=== PATIENT | male | born 1945 | race Caucasian/White ===

== ENCOUNTER 2020-10-09 18:41 | Inpatient (IN) | payer OTHER, SELFPAY ==
[2020-10-09 18:57] VITALS: TEMP 36.4; O2SAT 100; BMI 71.7
--- NOTE | 2020-10-09 19:23 | XR_ITS ---
EXAMINATION: XR CHEST CLINICAL INFORMATION: Mental status changes COMPARISON: Chest radiograph 08/12/[address] 08/13/2020 TECHNIQUE: Frontal view of the chest was obtained. FINDINGS: No significant abnormality is noted involving the heart, lungs, mediastinum, bony thorax or soft tissues. Again seen is left basilar atelectasis, unchanged when compared to the prior study. XR/XR chest 1V IMPRESSION: No acute intrathoracic disease.
--- NOTE | 2020-10-09 19:24 | ECG_ITS ---
Test Reason : AMS Blood Pressure : / mmHG Vent. Rate : 094 BPM Atrial Rate : 094 BPM P-R Int : 148 ms QRS Dur : 100 ms QT Int : 394 ms P-R-T Axes : 041 016 000 degrees QTc Int : 492 ms Normal sinus rhythm Minimal voltage criteria for LVH, may be normal variant T wave abnormality, consider inferior ischemia Abnormal ECG When compared with ECG of 18-AUG-2020 09:41, T wave inversion more evident in Inferior leads Referred By: Mark Finch Electronically Signed By:NIURKA CASTRO MD
--- NOTE | 2020-10-09 19:24 | CT_ITS ---
EXAMINATION: CT HEAD WITHOUT CONTRAST CLINICAL INFORMATION: Mental status change. COMPARISON: CT head 08/12/2020 TECHNIQUE: Contiguous axial imaging was performed from the skull base to vertex without intravenous administration of contrast. This CT examination was performed using dose optimization techniques as appropriate, variously including the following: *Automated exposure control *Adjustment of mA and/or kV according to patient size (this includes techniques or standardized protocols for targeted exams where dose is matched to indication/reason for exam; i.e. extremities or head) *Use of iterative reconstruction technique DLP: 805 mGy-cm FINDINGS: There is no evidence of acute intracranial hemorrhage or territorial infarction. No abnormal mass effect or midline shift is seen. [place] to white matter differentiation is well preserved. No extra-axial fluid collections are identified. There is atrophy with prominence of the ventricles and the sulci and hypodensity of the periventricular white matter due to chronic small vessel ischemic disease. The osseous structures and soft tissues are normal. There are multiple small lobular densities of mucosal disease or small retention cysts or polyps present at the inferior right and left maxillary sinus. CT/CT head/brain wo con IMPRESSION: No acute intracranial pathology.
[2020-10-09 19:43] LABS: Basophils Percent Auto 0.3 % (0-2); Eosinophils Absolute Auto 1.8 X10*3/uL (0.0-0.4); Eosinophils Percent Auto 15.9 % (0-4); Hematocrit 35.8 % (42-52); Hemoglobin 11.7 g/dl (14.0-18.0); Imm Gran Abs Auto 0.28 X10*3/uL (0.00-0.03); Imm Gran Pct Auto 2.4 % (0.0-0.4); Lymphocytes Absolute Auto 1.3 X10*3/uL (1.2-4.9); Lymphocytes Percent Auto 11.3 % (20-40); MANUAL DIFF FLAG NO; Mean Corpuscular HGB Conc 32.7 g/dl (31.0-36.0); Mean Corpuscular Hemoglobin 31.4 pg (27.0-33.0); Mean Platelet Volume 9.3 fL (9.4-12.4); Monocytes Absolute Auto 0.7 X10*3/uL (0.1-1.2); Monocytes Percent Auto 6.3 % (2-11); Neutrophils Absolute Auto 7.4 X10*3/uL (2.0-8.3); Neutrophils Percent Auto 63.8 % (45-73); Platelet Count 251 X10*3/uL (160-400); Red Blood Count 3.73 X10*6/uL (4.60-5.80); Red Cell Distribution Width 14.3 % (11.0-16.0); White Blood Count 11.6 X10*3/uL (4.8-10.8)
[2020-10-09 20:09] LABS: Lactic Acid 0.8 mmol/L (0.5-2.0)
[2020-10-09 20:14] VITALS: BP 114/55; PULSE 100; RESP 16; TEMP 36.6; O2SAT 98
[2020-10-09 20:20] LABS: Alanine Aminotransferase 28 U/L (0-40); Albumin Level 3.7 g/dL (3.5-5.0); Alkaline Phosphatase 63 U/L (39-117); Ammonia 31 umol/L (13-55); Anion Gap 17 (12-20); Aspartate Amino Transferase 39 U/L (5-37); Bilirubin Direct 0.2 mg/dL (0.0-0.5); Bilirubin Total 0.4 mg/dL (0.0-1.0); Blood Urea Nitrogen 25 mg/dL (9-16); Calcium 8.4 mg/dL (8.4-10.2); Carbon Dioxide 17 mmol/L (22-29); Chloride 107 mmol/L (96-108); Creatinine Clr Calc Pharmacy 57.1; Estimated Glomerular Filt Rate 28; Glucose Random 151 mg/dL (60-115); Lipase 37 U/L (8-78); Sodium 136 mmol/L (135-145); Total Protein 6.6 g/dL (6.5-8.0)
[2020-10-09 20:52] VITALS: BP 116/49; PULSE 95; RESP 18; TEMP 36.6
[2020-10-09 21:30] LABS: SARS COV2 PCR INHOUSE NEGATIVE (Negative)
[2020-10-09 21:31] LABS: Glucose Urine UA NEG (NEG); Leukocyte Esterase Urine TRACE (NEG); Nitrite Urine POS (NEG); Specific Gravity - Urine >= 1.030 (1.005-1.025); Urine Blood 3+ (NEG); Urine Ketones 5 MG/DL (NEG); Urine Protein 2+ MG/DL (NEG-TRACE)
[2020-10-09 21:34] LABS: Appearance Urine TURBID; Color Urine YELLOW
[2020-10-09 21:56] LABS: Bacteria Urine 2+ /LPF; RBC Urine 30-49 /HPF (0); Squamous Epithelial Cell Urine TRACE /LPF
--- NOTE | 2020-10-09 21:58 | ED.GENADULT ---
HPI - General Adult General Chief complaint: Altered Mental Status Time Seen by Provider: 10/09/20 19:23 Source: patient and family Mode of arrival: EMS Limitations: no limitations History of Present Illness HPI narrative: This is a 75-year-old male from home came in by ambulance for change of mental status today, patient was recently hospitalized for urosepsis at [facility] was just discharged yesterday on Bactrim (patient has a chronic indwelling Nunez catheter). Documented by EMS the patient had mental status change and lethargic, in the emergency department patient is awake, alert to place and person able to respond to examiner briskly. Patient initially was evaluated for possible SIRS/sepsis patient do not meet criteria. Related Data Allergies Allergy/AdvReac Type Severity Reaction Status Date / Time Benzodiazepines Allergy Unknown UNKNOWN Unverified 08/17/20 19:40 [BENZODIAZEPINES] dalfampridine [From AMPYRA] Allergy Unknown UNKNOWN Unverified 08/17/20 19:40 duloxetine [From CYMBALTA] Allergy Unknown UNKNOWN Unverified 08/17/20 19:40 ezetimibe [From ZETIA] Allergy Unknown UNKNOWN Unverified 08/17/20 19:40 niacin [NIACIN] Allergy Unknown UNKNOWN Unverified 08/17/20 19:40 oxycodone [OXYCODONE] Allergy Unknown UNKNOWN Unverified 08/17/20 19:40 pravastatin [PRAVASTATIN] Allergy Unknown UNKNOWN Unverified 08/17/20 19:40 Kecklbk-Mqh-Ptb Reductase Allergy Unknown UNKNOWN Unverified 08/17/20 19:40 Inhibitor [BQOBNER-QMP-LJL REDUCTASE INHIBITOR] lorazepam [From ATIVAN] AdvReac Severe EXCESSIVE Unverified 08/17/20 19:40 SEDATION doxycycline [DOXYCYCLINE] AdvReac Mild esophogeal Unverified 08/17/20 19:40 iritation methylprednisolone AdvReac Mild heartburn Unverified 08/17/20 19:40 [From SOLU-MEDROL] ertapenem [From INVANZ] AdvReac Unknown possible Unverified 08/17/20 19:40 cause of bullous pemphigoid Review of Systems Review of Systems: All other systems are reviewed and are negative Constitutional: Reports as per HPI and Reports no additional constitutional complaints Eyes: Reports as per HPI and Reports no additional eye complaints Reports system reviewed and no additional complaints, except as documented Cardiovascular: Reports as per HPI and Reports no additional cardiovascular complaints Respiratory: Reports as per HPI and Reports no additional respiratory complaints Gastrointestinal: Reports as per HPI and Reports no additional gastrointestinal complaints Genitourinary: Reports no additional female genitourinary complaints Musculoskeletal: Reports no additional musculoskeletal complaints Skin/Breast: Reports system reviewed and no additional complaints, except as docu Psychiatric: Reports no additional psychiatric complaints Endocrine: Reports no additional endocrine complaints Hematologic/Lymphatic: Reports no additional hematologic/lymphatic complaints Allergic/Immunologic: Reports no additional allergic/immunologic complaints Reports system reviewed and no additional complaints, except as documented and Reports Abnormal speech present [facility] Past Medical History Medical History Chronic renal failure Urinary tract infection Social History Social History Smoking Status: Unknown if ever smoked Use of substances other than those prescribed or required for medical reasons: Unable to respond Advance Directives: No Advance Directives Information Provided: Yes Physical Exam Vital Signs: Vital Signs: Last Vital Signs Temp 97.8 F 10/09/20 20:52 Pulse 95 10/09/20 20:52 Resp 18 10/09/20 20:52 BP 116/49 L 10/09/20 20:52 Pulse Ox 98 10/09/20 20:14 Body Mass Index 71.7 Vital signs have been reviewed as normal and appeared to be correct. Blood pressure normal. Heart rate normal. Respiration rate normal. Temperature normal. Oxygen saturation normal. Appearance: Alert. Oriented X2. No acute distress. Head: Normal external exam. Normocephalic. Atraumatic. No Calderón signs noted. No raccoon eyes noted Eyes: PERRLA. EOMI. Conjunctiva and sclera normal. Eyelids normal. ENT: EAC normal. TM's Normal. Pharynx normal. Uvula midline. Moist mucous membranes. No trismus noted. No drooling noted. No muffled voice noted. Neck: Normal inspection. Neck supple. FROM. No adenopathy. Thyroid Normal. No meningeal signs. No neck mass noted. CVS: Normal heart rate and rhythm. Heart sound normal. No murmurs noted. Pulses normal throughout. Respiratory: No respiratory distress. Painless inspiration. Breath sounds normal. No wheezes/rales/rhonchi noted. Chest nontender. No accessory muscle usage noted or decreased air movement noted. Abdomen: Soft and nontender. Bowel sounds normal in all 4 quadrants. No distention noted. No organomegaly noted. No visible injury noted. Back: No CVA tenderness. Full range of motion noted. Skin: Skin warm and dry. Normal skin color. Normal skin turgor. No rashes/lesions/lacerations noted. Extremities: No lower extremity edema. Extremities exhibit normal range of motion. Extremities nontender. Neuro: Oriented X 2. Course Course Course Narrative: This is a 75-year-old male with history of urosepsis was recently hospitalized at [facility], was discharged yesterday from [facility], patient returned because family reported that patient was lethargy and change mental status, patient is not showing severe mental status change or lethargic patient is responding to examiner briskly. Will consider changing Nunez catheter, check UA, check blood and urine culture, workup for change mental status including CT of the head. Medical Decision Making MDM Narrative Medical decision making narrative: 75 years old male with recent hospitalization for urosepsis, patient with chronic indwelling Nunez catheter. Here today for evaluation of mental status change. 1. Patient do not meet criteria for SIRS. (heart rate is above 90, leukocytosis less than 12,000) 2. Nunez catheter was changed new Nunez UA showed infection which will treat with ceftriaxone. 3. Mild dehydration will consider IV fluid hydration. 4. COVID testing. 5. Will admit for mental status re-evaluation/IV hydration/IV antibiotic. Lab Data Result diagrams: 10/09/20 19:35 10/09/20 19:35 Labs: Lab Results 10/09/20 10/09/20 10/09/20 Range/Units 19:35 19:35 19:35 WBC 11.6 H (4.8-10.8) X10*3/uL RBC 3.73 L (4.60-5.80) X10*6/uL Hgb 11.7 L (14.0-18.0) g/dl Hct 35.8 L (42-52) % MCV 96.0 (80-98) fL MCH 31.4 (27.0-33.0) pg MCHC 32.7 (31.0-36.0) g/dl RDW 14.3 (11.0-16.0) % Plt Count 251 (160-400) X10*3/uL MPV 9.3 L (9.4-12.4) fL Immature Gran % (Auto) 2.4 H (0.0-0.4) % Neut % (Auto) 63.8 (45-73) % Lymph % (Auto) 11.3 L (20-40) % [place] % (Auto) 6.3 (2-11) % Eos % (Auto) 15.9 H (0-4) % Baso % (Auto) 0.3 (0-2) % Lymph # (Auto) 1.3 (1.2-4.9) X10*3/uL [place] # (Auto) 0.7 (0.1-1.2) X10*3/uL Eos # (Auto) 1.8 H (0.0-0.4) X10*3/uL Baso # (Auto) 0.0 (0.0-0.2) X10*3/uL Abs Immat Gran (auto) 0.28 H (0.00-0.03) X10*3/uL Absolute Neuts (auto) 7.4 (2.0-8.3) X10*3/uL Absolute Nucleated RBC 0.000 (0.0-0.012) X10*3/uL Nucleated RBC % (auto) 0.0 (0.0-0.2) /100WBC Sodium 136 (135-145) mmol/L Potassium 5.0 (3.3-5.1) mmol/l Chloride 107 (96-108) mmol/L Carbon Dioxide 17 L (22-29) mmol/L Anion Gap 17 (12-20) BUN 25 H (9-16) mg/dL Creatinine 2.32 H (0.5-1.4) mg/dL Estim Creat Clear Calc 57.1 Estimated GFR 28 Random Glucose 151 H (60-115) mg/dL Lactic Acid (0.5-2.0) mmol/L Calcium 8.4 (8.4-10.2) mg/dL Total Bilirubin 0.4 (0.0-1.0) mg/dL Direct Bilirubin 0.2 (0.0-0.5) mg/dL AST 39 H (5-37) U/L ALT 28 (0-40) U/L Alkaline Phosphatase 63 (39-117) U/L Ammonia 31 (13-55) umol/L Total Protein 6.6 (6.5-8.0) g/dL Albumin 3.7 (3.5-5.0) g/dL Lipase 37 (8-78) U/L Urine Color Urine Appearance Urine pH (5.0-8.0) Ur Specific [place] (1.005-1.025) Urine Protein (NEG-TRACE) MG/DL Urine Glucose (UA) (NEG) MG/DL Urine Ketones (NEG) MG/DL Urine Blood (NEG) Urine Nitrite (NEG) Ur Leukocyte Esterase (NEG) Urine RBC (0) /HPF Urine WBC (0-4) /HPF Ur Squamous Epith Cells /LPF Urine Bacteria /LPF Coronavirus (PCR) (Negative) 10/09/20 10/09/20 10/09/20 Range/Units 19:35 20:29 21:18 WBC (4.8-10.8) X10*3/uL RBC (4.60-5.80) X10*6/uL Hgb (14.0-18.0) g/dl Hct (42-52) % MCV (80-98) fL MCH (27.0-33.0) pg MCHC (31.0-36.0) g/dl RDW (11.0-16.0) % Plt Count (160-400) X10*3/uL MPV (9.4-12.4) fL Immature Gran % (Auto) (0.0-0.4) % Neut % (Auto) (45-73) % Lymph % (Auto) (20-40) % [place] % (Auto) (2-11) % Eos % (Auto) (0-4) % Baso % (Auto) (0-2) % Lymph # (Auto) (1.2-4.9) X10*3/uL [place] # (Auto) (0.1-1.2) X10*3/uL Eos # (Auto) (0.0-0.4) X10*3/uL Baso # (Auto) (0.0-0.2) X10*3/uL Abs Immat Gran (auto) (0.00-0.03) X10*3/uL Absolute Neuts (auto) (2.0-8.3) X10*3/uL Absolute Nucleated RBC (0.0-0.012) X10*3/uL Nucleated RBC % (auto) (0.0-0.2) /100WBC Sodium (135-145) mmol/L Potassium (3.3-5.1) mmol/l Chloride (96-108) mmol/L Carbon Dioxide (22-29) mmol/L Anion Gap (12-20) BUN (9-16) mg/dL Creatinine (0.5-1.4) mg/dL Estim Creat Clear Calc Estimated GFR Random Glucose (60-115) mg/dL Lactic Acid 0.8 (0.5-2.0) mmol/L Calcium (8.4-10.2) mg/dL Total Bilirubin (0.0-1.0) mg/dL Direct Bilirubin (0.0-0.5) mg/dL AST (5-37) U/L ALT (0-40) U/L Alkaline Phosphatase (39-117) U/L Ammonia (13-55) umol/L Total Protein (6.5-8.0) g/dL Albumin (3.5-5.0) g/dL Lipase (8-78) U/L Urine Color YELLOW Urine Appearance TURBID Urine pH 5.0 (5.0-8.0) Ur Specific [place] >= 1.030 H (1.005-1.025) Urine Protein 2+ H (NEG-TRACE) MG/DL Urine Glucose (UA) NEG (NEG) MG/DL Urine Ketones 5 (NEG) MG/DL Urine Blood 3+ H (NEG) Urine Nitrite POS H (NEG) Ur Leukocyte Esterase TRACE H (NEG) Urine RBC 30-49 H (0) /HPF Urine WBC 5-9 H (0-4) /HPF Ur Squamous Epith Cells TRACE /LPF Urine Bacteria 2+ /LPF Coronavirus (PCR) NEGATIVE (Negative) Imaging Data Chest x-ray: Radiologist's impression: No acute intrathoracic pathology. CT scan - head: Radiologist's impression: No acute intracranial pathology. ECG Data Interpretation: Normal sinus rhythm at 94 beats per minutes, LVH, normal axis deviation, T-wave inversion in lead III and AVF. Discharge Plan Discharge Clinical Impression: Altered mental status, UTI (urinary tract infection) due to urinary indwelling Nunez catheter, Dehydration Patient Disposition: Admitted As Inpatient
[2020-10-09] MEDS: cefTRIAXone sodium 1 GM in 0.9 % Sodium Chloride 50 ML IV (22:05)
[2020-10-09] MEDS: 0.9 % Sodium Chloride 500 ML 1000 ML IV (22:09)
[2020-10-10] VITALS (8 sets, daily range): BP systolic 102–171; BP diastolic 48–78; PULSE 91–108; RESP 14–20; TEMP 36.3–36.9; O2SAT 97–100; BMI 26.6
--- NOTE | 2020-10-10 02:33 | P.HPHOSP_ITS ---
History of Present Illness Date of Service: 10/10/20 Chief Complaint: AMS this is a 75-year-old male with past medical history of MS (chronically bed- bound), BPH, depression, mood better, type 2 diabetes, chronic UTIs who [facility] with complaints of increased altered mentation. Patient was recently discharged from [facility] after presenting there was sepsis secondary to UTI. Patient was treated with IV antibiotics transition to Bactrim per sensitivity and sent home. His brought the patient back into the hospital stating that the patient has been more altered, has low appetite, oral intake. Patient is very confused at this time and unable to give me any history. I am unable to review his systems as patient is confused. arrival to the ED hemodynamically stable with stable vitals Labs are significant for WBC count of 11.6, BUN of 24, creatinine of 2.32 a baseline around 0.8, UA that is positive for leukocyte esterase, nitrates, WBC COVID-19 negative past medical history is obtained from chart Past medical history: BPH with chronic indwelling Nunez catheter, DM, MS, mood disorder, chronic pain syndrome, depression, recurrent UTI Past surgical history: None per record Family history: No significant family history Social history: Comes from [facility], currently not using any tobacco alcohol or illicit drugs Review of Systems Review of Systems: Yes all other systems are reviewed and are negative [facility] Medical History (Updated 10/10/20 @ 02:57 by Jeramy Song MD) BPH (benign prostatic hyperplasia) Chronic renal failure Urinary tract infection Social History Smoking Status: Unknown if ever smoked Use of substances other than those prescribed or required for medical reasons: Unable to respond Advance Directives: No Advance Directives Information Provided: Yes Meds Allergies Allergy/AdvReac Type Severity Reaction Status Date / Time Benzodiazepines Allergy Unknown UNKNOWN Verified 10/09/20 22:49 [BENZODIAZEPINES] dalfampridine [From AMPYRA] Allergy Unknown UNKNOWN Verified 10/09/20 22:49 duloxetine [From CYMBALTA] Allergy Unknown UNKNOWN Verified 10/09/20 22:49 ezetimibe [From ZETIA] Allergy Unknown UNKNOWN Verified 10/09/20 22:49 niacin [NIACIN] Allergy Unknown UNKNOWN Verified 10/09/20 22:49 oxycodone [OXYCODONE] Allergy Unknown UNKNOWN Verified 10/09/20 22:49 pravastatin [PRAVASTATIN] Allergy Unknown UNKNOWN Verified 10/09/20 22:49 Etfhhnm-Aua-Zdx Reductase Allergy Unknown UNKNOWN Verified 10/09/20 22:49 Inhibitor [UDHJKYE-MWA-HAW REDUCTASE INHIBITOR] lorazepam [From ATIVAN] AdvReac Severe EXCESSIVE Verified 10/09/20 22:49 SEDATION doxycycline [DOXYCYCLINE] AdvReac Mild esophogeal Verified 10/09/20 22:49 iritation methylprednisolone AdvReac Mild heartburn Verified 10/09/20 22:49 [From SOLU-MEDROL] ertapenem [From INVANZ] AdvReac Unknown possible Verified 10/09/20 22:49 cause of bullous pemphigoid Home Medications Medication Instructions Recorded Confirmed Type VQ-nhjlemejiwi-hfshou ox-zinc 500 - 750 tab PO DAILY 10/09/20 10/09/20 History [Nicotinamide] baclofen 20 mg PO QID 10/09/20 10/09/20 History bisacodyl 5 mg PO BEDTIME 10/09/20 10/09/20 History bisacodyl 10 mg [place] DAILY PRN 10/09/20 10/09/20 History citalopram 20 mg PO DAILY 10/09/20 10/09/20 History clobetasol 1 applic TOPICAL BID 10/09/20 10/09/20 History gabapentin 300 mg PO DAILY 10/09/20 10/09/20 History gabapentin 300 mg PO TID 10/09/20 10/09/20 History insulin detemir U-100 [Levemir 20 unit SUBCUT BEDTIME 10/09/20 10/09/20 History U-100 Insulin] lactulose 15 ml PO BEDTIME 10/09/20 10/09/20 History melatonin 5 mg PO BEDTIME PRN 10/09/20 10/09/20 History metformin 500 mg PO BID 10/09/20 10/09/20 History polyethylene glycol 3350 17 g PO DAILY 10/09/20 10/09/20 History sulfamethoxazole-trimethoprim 1 tab PO BID 10/09/20 10/09/20 History tamsulosin 0.4 mg PO DAILY 10/09/20 10/09/20 History tramadol 50 mg PO BID PRN 10/09/20 10/09/20 History trazodone 25 mg PO BEDTIME PRN 10/09/20 10/09/20 History Physical Exam Vital Signs and Narrative: Vital Signs: Last Vital Signs Temp 97.8 F 10/09/20 20:52 Pulse 91 10/10/20 01:46 Resp 14 10/10/20 01:46 BP 126/57 L 10/10/20 01:46 Pulse Ox 100 10/10/20 01:46 Body Mass Index 26.6 Const: General: cooperative and no acute distress Orientation/consc iousness: patient oriented x3 Eyes: General: appearance normal, both eyes and all related structures Pupils: Equal, round and reactive pupils present Resp: Effort & Inspection: normal respiratory effort and able to speak in complete sentences Auscultation: clear to auscultation bilaterally Cardio: Rate: regular rate Rhythm: regular rhythm GI: Palpation (GI): Soft to palpation Auscultation: normal bowel sounds Skin: General skin exam: no rashes or lesions noted Neuro: General: patient oriented x3 Cranial nerves: Yes Equal, round and reactive pupils present Cognition (Neuro): normal cognition Extrem: General: Yes normal to inspection and Yes no pedal edema Results Labs CBC and Chem 7: 10/09/20 19:35 10/09/20 19:35 Labs: Laboratory Results - last 24 hr 10/09/20 10/09/20 10/09/20 19:35 19:35 19:35 MCV 96.0 MCH 31.4 MCHC 32.7 RDW 14.3 Plt Count 251 MPV 9.3 L Immature Gran % (Auto) 2.4 H Neut % (Auto) 63.8 Lymph % (Auto) 11.3 L [place] % (Auto) 6.3 Eos % (Auto) 15.9 H Baso % (Auto) 0.3 Lymph # (Auto) 1.3 [place] # (Auto) 0.7 Eos # (Auto) 1.8 H Baso # (Auto) 0.0 Abs Immat Gran (auto) 0.28 H Absolute Neuts (auto) 7.4 Absolute Nucleated RBC 0.000 Nucleated RBC % (auto) 0.0 Anion Gap 17 Estim Creat Clear Calc 57.1 Estimated GFR 28 Random Glucose 151 H Lactic Acid Calcium 8.4 Total Bilirubin 0.4 Direct Bilirubin 0.2 AST 39 H ALT 28 Alkaline Phosphatase 63 Ammonia 31 Total Protein 6.6 Albumin 3.7 Lipase 37 Urine Color Urine Appearance Urine pH Ur Specific [place] Urine Protein Urine Glucose (UA) Urine Ketones Urine Blood Urine Nitrite Ur Leukocyte Esterase Urine RBC Urine WBC Ur Squamous Epith Cells Urine Bacteria Coronavirus (PCR) 10/09/20 10/09/20 10/09/20 19:35 20:29 21:18 MCV MCH MCHC RDW Plt Count MPV Immature Gran % (Auto) Neut % (Auto) Lymph % (Auto) [place] % (Auto) Eos % (Auto) Baso % (Auto) Lymph # (Auto) [place] # (Auto) Eos # (Auto) Baso # (Auto) Abs Immat Gran (auto) Absolute Neuts (auto) Absolute Nucleated RBC Nucleated RBC % (auto) Anion Gap Estim Creat Clear Calc Estimated GFR Random Glucose Lactic Acid 0.8 Calcium Total Bilirubin Direct Bilirubin AST ALT Alkaline Phosphatase Ammonia Total Protein Albumin Lipase Urine Color YELLOW Urine Appearance TURBID Urine pH 5.0 Ur Specific [place] >= 1.030 H Urine Protein 2+ H Urine Glucose (UA) NEG Urine Ketones 5 Urine Blood 3+ H Urine Nitrite POS H Ur Leukocyte Esterase TRACE H Urine RBC 30-49 H Urine WBC 5-9 H Ur Squamous Epith Cells TRACE Urine Bacteria 2+ Coronavirus (PCR) NEGATIVE Imaging Radiologist's Impressions: Impressions Chest X-Ray 10/09/20 19:23 IMPRESSION: No acute intrathoracic disease. Head CT 10/09/20 19:24 IMPRESSION: No acute intracranial pathology. Assessment and Plan (1) BPH (benign prostatic hyperplasia): Status: Acute (2) Altered mental status: Qualifiers: Coma depth: [place] coma 13-15 Status: Acute (3) UTI (urinary tract infection) due to urinary indwelling Nunez catheter: Qualifiers: Indwelling urinary catheter type: indwelling urethral catheter Status: Acute (4) Dehydration: Status: Acute (5) EDWARD (acute kidney injury): Status: Acute (6) Chronic pain syndrome: Status: Acute (7) Diabetes mellitus type 2 in obese: Status: Acute (8) Depression: Status: Acute
[2020-10-10 06:33] LABS: Glucose, Whole Blood 155 mg/dL (60-115)
[2020-10-10 08:30] LABS: Glucose, Whole Blood 153 mg/dL (60-115)
[2020-10-10] MEDS: Insulin Lispro 100 UNIT/ML 3 ML VIAL SUBCUT ×2 (08:30→23:04)
--- NOTE | 2020-10-10 11:44 | P.PNIM_ITS ---
Subjective Subjective Date of Service: 10/10/20 Interval History: Seen in f/u for EDWARD, UTI with encephalopathy Physical Exam Vital Signs: Vital Signs: Last Vital Signs Temp 98.4 F 10/10/20 06:17 Pulse 108 H 10/10/20 06:17 Resp 18 10/10/20 08:00 BP 163/70 H 10/10/20 06:17 Pulse Ox 98 10/10/20 06:17 Body Mass Index 26.6 General: AO X 3, no acute distress Resp: CTA bilateral CVS: S1,S2,RRR GI: +BS, NT, no distention Skin: No rash Neuro: motor grossly intact Psych: appropriate affect Objective Data Current Medications Generic Name Dose Route Start Last Admin Trade Name Freq PRN Reason Stop Dose Admin Insulin Human Lispro 0 unit 10/10/20 07:30 10/10/20 08:30 Insulin Lispro 100 Unit/Ml 3 Ml Vial SUBCUT 2 unit QIDACHS WICHO Administration Protocol Labs CBC & Chem 7: 10/09/20 19:35 10/09/20 19:35 Microbiology Microbiology Results: Microbiology 10/09/20 21:30 Urine clean catch - Clean Catch Midstream Urine Culture - Preliminary No growth to date. Assessment and Plan (1) BPH (benign prostatic hyperplasia): Status: Acute (2) Altered mental status: Status: Acute (3) UTI (urinary tract infection) due to urinary indwelling Nunez catheter: Status: Acute (4) Dehydration: Status: Acute (5) EDWARD (acute kidney injury): Status: Acute (6) Chronic pain syndrome: Status: Acute (7) Diabetes mellitus type 2 in obese: Status: Acute (8) Depression: Status: Acute Assessment and Plan: 75/ M here with Encephalopathy--improved - most likely secondary to acute UTI and infection - no electrolyte abnormality, also has EDWARD and apparent dehydration - UA positive for nitrites, leukocyte Estrace and WBC Plan: - Continue Ceftriaxone - urine and blood cultures drawn- will follow - IV fluids # UTI - positive UA, has a chronic indwelling catheter - Was recently discharged from [facility] after being treated for Klebsiella UTI sensitive to Macrobid. It appears the patient was discharged on Macrobid for his family and the discharge summary plan: - continue ceftriaxone - follow urine and blood cultures # EDWARD--hydrated overnight, - most likely secondary to dehydration - baseline creatinine around 0.8, presents with a creatinine of 2.32 -repeat labs and if not resolve, additional iv fluid and renal consuly # DM - hold glipizide - low-dose sliding scale insulin - diabetic diet # chronic pain - continue gabapentin, hold baclofen due to renal failure, tramadol DVT prophylaxis: heparin subcu 12. Full code.
[2020-10-10 12:21] LABS: Glucose, Whole Blood 134 mg/dL (60-115)
[2020-10-10] MEDS: 0.9 % Sodium Chloride 1,000 ML 100 ML IVCONT ×2 (13:15→23:03)
[2020-10-10] MEDS: Heparin Sodium,Porcine 5,000 UNIT/ML VIAL 5000 UNIT SUBCUT (13:15)
[2020-10-10] MEDS: polyethylene glycoL 3350 17 GM POWD.PACK PO (13:16)
[2020-10-10] MEDS: Tamsulosin HCL 0.4 MG CAPSULE PO (13:17)
[2020-10-10] MEDS: Baclofen 20 MG TABLET PO ×3 (13:17→23:04)
[2020-10-10] MEDS: Gabapentin 300 MG CAPSULE PO (13:17)
[2020-10-10] MEDS: 0.9 % Sodium Chloride Flush 3 ML SYRINGE IVFLUSH (13:17)
[2020-10-10 15:18] LABS: Anion Gap 14 (12-20); Blood Urea Nitrogen 25 mg/dL (9-16); Calcium 8.6 mg/dL (8.4-10.2); Carbon Dioxide 23 mmol/L (22-29); Chloride 107 mmol/L (96-108); Creatinine Clr Calc Pharmacy 50.1; Estimated Glomerular Filt Rate 48; Glucose Random 145 mg/dL (60-115); Potassium 4.7 mmol/l (3.3-5.1); Sodium 139 mmol/L (135-145)
--- NOTE | 2020-10-10 16:33 | P.CONIM_ITS ---
History of Present Illness Data of Consult Service Date: 10/10/20 Requesting physician: Juan Sykes Primary Care Provider: Unknown Physician HPI Reason for consult: sacral wound 75 year old male with recurrent uti having hospitalizations at [facility] [place] and now at [place] and at long-term in between. lots of time in bed as he says he cant walk or stand well. now with noted wound on sacrum [facility] Medical History (Updated 10/10/20 @ 02:57 by Jeramy Song MD) BPH (benign prostatic hyperplasia) Chronic renal failure Urinary tract infection Social History Household Members: Other Household Members Other:: lives in a long-term Housing: [facility] Smoking Status: Unknown if ever smoked Use of substances other than those prescribed or required for medical reasons: No Currently Displaying Signs/Symptoms of Drug Intoxication Withdrawal: No Have you been hit, kicked, punched, or otherwise hurt by someone within the past year? If so, by whom?: No Do you feel safe in your current relationship?: Yes Are you made to feel afraid or neglected: No Advance Directives: No Advance Directives Information Provided: Yes Do you have thoughts of harming others: None Do you have a plan to hurt others: No Plan Recently lost weight without trying: No Meds Allergies Allergy/AdvReac Type Severity Reaction Status Date / Time Benzodiazepines Allergy Unknown UNKNOWN Verified 10/09/20 22:49 [BENZODIAZEPINES] dalfampridine [From AMPYRA] Allergy Unknown UNKNOWN Verified 10/09/20 22:49 duloxetine [From CYMBALTA] Allergy Unknown UNKNOWN Verified 10/09/20 22:49 ezetimibe [From ZETIA] Allergy Unknown UNKNOWN Verified 10/09/20 22:49 niacin [NIACIN] Allergy Unknown UNKNOWN Verified 10/09/20 22:49 oxycodone [OXYCODONE] Allergy Unknown UNKNOWN Verified 10/09/20 22:49 pravastatin [PRAVASTATIN] Allergy Unknown UNKNOWN Verified 10/09/20 22:49 Pexfdxh-Okp-Pmq Reductase Allergy Unknown UNKNOWN Verified 10/09/20 22:49 Inhibitor [[id number] REDUCTASE INHIBITOR] lorazepam [From ATIVAN] AdvReac Severe EXCESSIVE Verified 10/09/20 22:49 SEDATION doxycycline [DOXYCYCLINE] AdvReac Mild esophogeal Verified 10/09/20 22:49 iritation methylprednisolone AdvReac Mild heartburn Verified 10/09/20 22:49 [From SOLU-MEDROL] ertapenem [From INVANZ] AdvReac Unknown possible Verified 10/09/20 22:49 cause of bullous pemphigoid Home Medications Medication Instructions Recorded Confirmed Type PN-smtdrmansfm-krgxay ox-zinc 500 - 750 tab PO DAILY 10/09/20 10/09/20 History [Nicotinamide] baclofen 20 mg PO QID 10/09/20 10/09/20 History bisacodyl 5 mg PO BEDTIME 10/09/20 10/09/20 History bisacodyl 10 mg SD DAILY PRN 10/09/20 10/09/20 History citalopram 20 mg PO DAILY 10/09/20 10/09/20 History clobetasol 1 applic TOPICAL BID 10/09/20 10/09/20 History gabapentin 300 mg PO DAILY 10/09/20 10/09/20 History gabapentin 600 mg PO BEDTIME 10/09/20 10/10/20 History insulin detemir U-100 [Levemir 20 unit SUBCUT BEDTIME 10/09/20 10/09/20 History U-100 Insulin] lactulose 15 ml PO BEDTIME 10/09/20 10/09/20 History melatonin 5 mg PO BEDTIME PRN 10/09/20 10/09/20 History metformin 500 mg PO BID 10/09/20 10/09/20 History polyethylene glycol 3350 17 g PO DAILY 10/09/20 10/09/20 History sulfamethoxazole-trimethoprim 1 tab PO BID 10/09/20 10/09/20 History tamsulosin 0.4 mg PO DAILY 10/09/20 10/09/20 History tramadol 50 mg PO BID PRN 10/09/20 10/09/20 History trazodone 25 mg PO BEDTIME PRN 10/09/20 10/09/20 History Physical Exam Vital Signs and Narrative: Vital Signs: Last Vital Signs Temp 97.7 F 10/10/20 15:47 Pulse 98 10/10/20 15:47 Resp 18 10/10/20 15:47 BP 156/78 H 10/10/20 15:47 Pulse Ox 99 10/10/20 15:47 Body Mass Index 26.6 pt has small stage 1 skin breakdown from pressure less than 1cm but it is tender. back skin looks good though and perirectal tissue also Results Labs CBC and Chem 7: 10/09/20 19:35 10/10/20 14:29 Labs: Laboratory Results - last 24 hr 10/09/20 10/09/20 10/09/20 19:35 19:35 19:35 MCV 96.0 MCH 31.4 MCHC 32.7 RDW 14.3 Plt Count 251 MPV 9.3 L Immature Gran % (Auto) 2.4 H Neut % (Auto) 63.8 Lymph % (Auto) 11.3 L [place] % (Auto) 6.3 Eos % (Auto) 15.9 H Baso % (Auto) 0.3 Lymph # (Auto) 1.3 [place] # (Auto) 0.7 Eos # (Auto) 1.8 H Baso # (Auto) 0.0 Abs Immat Gran (auto) 0.28 H Absolute Neuts (auto) 7.4 Absolute Nucleated RBC 0.000 Nucleated RBC % (auto) 0.0 Anion Gap 17 Estim Creat Clear Calc 57.1 Estimated GFR 28 POC Glucose Random Glucose 151 H Lactic Acid Calcium 8.4 Total Bilirubin 0.4 Direct Bilirubin 0.2 AST 39 H ALT 28 Alkaline Phosphatase 63 Ammonia 31 Total Protein 6.6 Albumin 3.7 Lipase 37 Urine Color Urine Appearance Urine pH Ur Specific [place] Urine Protein Urine Glucose (UA) Urine Ketones Urine Blood Urine Nitrite Ur Leukocyte Esterase Urine RBC Urine WBC Ur Squamous Epith Cells Urine Bacteria Coronavirus (PCR) 10/09/20 10/09/20 10/09/20 19:35 20:29 21:18 MCV MCH MCHC RDW Plt Count MPV Immature Gran % (Auto) Neut % (Auto) Lymph % (Auto) [place] % (Auto) Eos % (Auto) Baso % (Auto) Lymph # (Auto) [place] # (Auto) Eos # (Auto) Baso # (Auto) Abs Immat Gran (auto) Absolute Neuts (auto) Absolute Nucleated RBC Nucleated RBC % (auto) Anion Gap Estim Creat Clear Calc Estimated GFR POC Glucose Random Glucose Lactic Acid 0.8 Calcium Total Bilirubin Direct Bilirubin AST ALT Alkaline Phosphatase Ammonia Total Protein Albumin Lipase Urine Color YELLOW Urine Appearance TURBID Urine pH 5.0 Ur Specific [place] >= 1.030 H Urine Protein 2+ H Urine Glucose (UA) NEG Urine Ketones 5 Urine Blood 3+ H Urine Nitrite POS H Ur Leukocyte Esterase TRACE H Urine RBC 30-49 H Urine WBC 5-9 H Ur Squamous Epith Cells TRACE Urine Bacteria 2+ Coronavirus (PCR) NEGATIVE 10/10/20 10/10/20 10/10/20 06:28 08:26 11:41 MCV MCH MCHC RDW Plt Count MPV Immature Gran % (Auto) Neut % (Auto) Lymph % (Auto) [place] % (Auto) Eos % (Auto) Baso % (Auto) Lymph # (Auto) [place] # (Auto) Eos # (Auto) Baso # (Auto) Abs Immat Gran (auto) Absolute Neuts (auto) Absolute Nucleated RBC Nucleated RBC % (auto) Anion Gap Estim Creat Clear Calc Estimated GFR POC Glucose 155 H 153 H 134 H Random Glucose Lactic Acid Calcium Total Bilirubin Direct Bilirubin AST ALT Alkaline Phosphatase Ammonia Total Protein Albumin Lipase Urine Color Urine Appearance Urine pH Ur Specific [place] Urine Protein Urine Glucose (UA) Urine Ketones Urine Blood Urine Nitrite Ur Leukocyte Esterase Urine RBC Urine WBC Ur Squamous Epith Cells Urine Bacteria Coronavirus (PCR) 10/10/20 14:29 MCV MCH MCHC RDW Plt Count MPV Immature Gran % (Auto) Neut % (Auto) Lymph % (Auto) [place] % (Auto) Eos % (Auto) Baso % (Auto) Lymph # (Auto) [place] # (Auto) Eos # (Auto) Baso # (Auto) Abs Immat Gran (auto) Absolute Neuts (auto) Absolute Nucleated RBC Nucleated RBC % (auto) Anion Gap 14 Estim Creat Clear Calc 50.1 Estimated GFR 48 POC Glucose Random Glucose 145 H Lactic Acid Calcium 8.6 Total Bilirubin Direct Bilirubin AST ALT Alkaline Phosphatase Ammonia Total Protein Albumin Lipase Urine Color Urine Appearance Urine pH Ur Specific [place] Urine Protein Urine Glucose (UA) Urine Ketones Urine Blood Urine Nitrite Ur Leukocyte Esterase Urine RBC Urine WBC Ur Squamous Epith Cells Urine Bacteria Coronavirus (PCR) Imaging Radiologist's Impressions: Impressions Chest X-Ray 10/09/20 19:23 IMPRESSION: No acute intrathoracic disease. Head CT 10/09/20 19:24 IMPRESSION: No acute intracranial pathology. Assessment and Plan (1) BPH (benign prostatic hyperplasia): Status: Acute (2) Altered mental status: Qualifiers: Coma depth: [place] coma 13-15 Status: Acute (3) UTI (urinary tract infection) due to urinary indwelling Nunez catheter: Qualifiers: Indwelling urinary catheter type: indwelling urethral catheter Status: Acute (4) Dehydration: Status: Acute (5) EDWARD (acute kidney injury): Status: Acute (6) Chronic pain syndrome: Status: Acute (7) Diabetes mellitus type 2 in obese: Status: Acute (8) Depression: Status: Acute 75/ M here with Encephalopathy--improved - UTI - EDWARD-- # DM chronic pain DVT prophylaxis: He has a pressure stage 1 sacral wound - offload, rotate side to side, barrier cream as needed and protective allevyn dressing.
[2020-10-10 17:22] LABS: Glucose, Whole Blood 124 mg/dL (60-115)
[2020-10-10 21:19] LABS: Glucose, Whole Blood 192 mg/dL (60-115)
[2020-10-10] MEDS: Gabapentin 300 MG CAPSULE 600 MG PO (23:03)
[2020-10-10] MEDS: Lactulose 20 GM/30 ML SOLUTION 10 GM PO (23:04)
[2020-10-10] MEDS: Betamethasone Dip Aug 0.05% Cr 15 GM TUBE 1 APPL TOPICAL (23:05)
[2020-10-10] MEDS: Insulin Glargine,Hum.rec.anlog 100 UNIT/ML 10 ML VIAL 10 UNIT SUBCUT (23:05)
[2020-10-10] MEDS: cefTRIAXone sodium 1 GM in 0.9 % Sodium Chloride 50 ML IV (23:06)
[2020-10-11] VITALS (7 sets, daily range): BP systolic 135–173; BP diastolic 63–76; PULSE 82–98; RESP 16–19; TEMP 36–36.4; O2SAT 97–100
[2020-10-11] MEDS: ondansetron HCL 4 MG/2 ML VIAL IVPUSH ×3 (00:35→16:34)
[2020-10-11] MEDS: Heparin Sodium,Porcine 5,000 UNIT/ML VIAL 5000 UNIT SUBCUT ×2 (01:11→13:01)
[2020-10-11 04:58] LABS: MANUAL DIFF FLAG NO
[2020-10-11 05:07] LABS: Basophils Percent Auto 0.5 % (0-2); Eosinophils Absolute Auto 1.3 X10*3/uL (0.0-0.4); Hematocrit 31.8 % (42-52); Hemoglobin 10.3 g/dl (14.0-18.0); Imm Gran Pct Auto 1.5 % (0.0-0.4); Lymphocytes Absolute Auto 1.1 X10*3/uL (1.2-4.9); Mean Corpuscular HGB Conc 32.4 g/dl (31.0-36.0); Mean Corpuscular Hemoglobin 31.2 pg (27.0-33.0); Mean Corpuscular Volume 96.4 fL (80-98); Mean Platelet Volume 9.2 fL (9.4-12.4); Monocytes Absolute Auto 0.6 X10*3/uL (0.1-1.2); Monocytes Percent Auto 9.3 % (2-11); Neutrophils Absolute Auto 3.5 X10*3/uL (2.0-8.3); Neutrophils Percent Auto 52.7 % (45-73); Platelet Count 251 X10*3/uL (160-400); Red Cell Distribution Width 14.6 % (11.0-16.0); White Blood Count 6.6 X10*3/uL (4.8-10.8)
[2020-10-11 05:43] LABS: Anion Gap 10 (12-20); Blood Urea Nitrogen 17 mg/dL (9-16); Calcium 7.9 mg/dL (8.4-10.2); Carbon Dioxide 22 mmol/L (22-29); Chloride 108 mmol/L (96-108); Creatinine Clr Calc Pharmacy 71.4; Estimated Glomerular Filt Rate > 60; Glucose Random 84 mg/dL (60-115); Potassium 4.2 mmol/l (3.3-5.1); Sodium 136 mmol/L (135-145)
[2020-10-11 07:54] LABS: Glucose, Whole Blood 84 mg/dL (60-115)
[2020-10-11] MEDS: 0.9 % Sodium Chloride 1,000 ML 100 ML IVCONT (09:08)
[2020-10-11] MEDS: polyethylene glycoL 3350 17 GM POWD.PACK PO (09:19)
[2020-10-11] MEDS: Baclofen 20 MG TABLET PO ×4 (09:20→22:51)
[2020-10-11] MEDS: Tamsulosin HCL 0.4 MG CAPSULE PO (09:20)
[2020-10-11] MEDS: Gabapentin 300 MG CAPSULE PO (09:20)
[2020-10-11] MEDS: Escitalopram Oxalate 10 MG TABLET PO (09:20)
[2020-10-11] MEDS: Betamethasone Dip Aug 0.05% Cr 15 GM TUBE 1 APPL TOPICAL ×2 (10:12→22:53)
--- NOTE | 2020-10-11 11:13 | MHC.CM.PN ---
PATIENT IS IN FROM [facility] [address]. PLAN IS FOR HIS RETURN. PER PHYSICIAN ROUNDS, PATIENT MAY BE READY TODAY. THIS CLINICAL MOLECULAR GENETICIST CONTACTED HELP DESK, THERE ARE ISSUES WITH TRYING TO ACCESS PATIENT DEMOGRAPHIC AND CONTACT INFO.
[2020-10-11 11:40] LABS: Glucose, Whole Blood 112 mg/dL (60-115)
--- NOTE | 2020-10-11 12:22 | PM.DS ---
DS: Providers Provider Date of admission: 10/10/20 00:20 Primary care physician: Unknown Physician Consults: 10/10/20 14:46 Consult to Wound Care Provider Routine Consulting Provider: Priyanka Solis Reason for consultation: stage II on buttocks Has provider been notified: Yes DS: Diagnosis Discharge Diagnosis (1) BPH (benign prostatic hyperplasia): Status: Acute (2) Altered mental status: Status: Acute (3) UTI (urinary tract infection) due to urinary indwelling Nunez catheter: Status: Acute (4) Dehydration: Status: Acute (5) EDWARD (acute kidney injury): Status: Acute (6) Chronic pain syndrome: Status: Acute (7) Diabetes mellitus type 2 in obese: Status: Acute (8) Depression: Status: Acute DS: Medications Discharge Medications Home Medications: Home Medications Medication Instructions Recorded Confirmed UN-dulkkwafsba-hcvmeh ox-zinc 500 - 750 tab PO DAILY 10/09/20 10/09/20 [Nicotinamide] baclofen 20 mg PO QID 10/09/20 10/09/20 bisacodyl 5 mg PO BEDTIME 10/09/20 10/09/20 bisacodyl 10 mg CA DAILY PRN 10/09/20 10/09/20 citalopram 20 mg PO DAILY 10/09/20 10/09/20 clobetasol 1 applic TOPICAL BID 10/09/20 10/09/20 gabapentin 300 mg PO DAILY 10/09/20 10/09/20 gabapentin 600 mg PO BEDTIME 10/09/20 10/10/20 insulin detemir U-100 [Levemir 20 unit SUBCUT BEDTIME 10/09/20 10/09/20 U-100 Insulin] lactulose 15 ml PO BEDTIME 10/09/20 10/09/20 melatonin 5 mg PO BEDTIME PRN 10/09/20 10/09/20 metformin 500 mg PO BID 10/09/20 10/09/20 polyethylene glycol 3350 17 g PO DAILY 10/09/20 10/09/20 sulfamethoxazole-trimethoprim 1 tab PO BID 10/09/20 10/09/20 tamsulosin 0.4 mg PO DAILY 10/09/20 10/09/20 tramadol 50 mg PO BID PRN 10/09/20 10/09/20 trazodone 25 mg PO BEDTIME PRN 10/09/20 10/09/20 DS: Summary Hospital Course Hospital Course: history of presenting illness 75-year-old male with past medical history of MS (chronically bed-bound), BPH, depression, mood better, type 2 diabetes, chronic UTIs who presents to the hospital [facility] [place] [facility] with complaints of increased altered mentation. Patient was recently discharged from [facility] after presenting there was sepsis secondary to UTI. Patient was treated with IV antibiotics transition to Bactrim per sensitivity and sent home. His brought the patient back into the hospital stating that the patient has been more altered, has low appetite, oral intake. Patient is very confused at this time and unable to give me any history. review of systems not obtained as patient is confused. arrival to the ED hemodynamically stable with stable vitals Labs are significant for WBC count of 11.6, BUN of 24, creatinine of 2.32 a baseline around 0.8, UA that is positive for leukocyte esterase, nitrates, WBC COVID-19 negative past medical history is obtained from chart Past medical history: BPH with chronic indwelling Nunez catheter, DM, MS, mood disorder, chronic pain syndrome, depression, recurrent UTI Past surgical history: None per record hospital course acute Encephalopathy-- resolved was likely secondary to acute kidney injury most likely related to recent use of Bactrim, and dehydration, repeat urine culture and blood culture showed no organism. # UTI - Patient recently treated at [facility] for acute retract infection has finish course of antibiotic repeat urine culture and blood cultures are negative no further antibiotics are required # EDWARD- resolved with IV hydration was likely related to use of Bactrim # DM - resume home medication dose of Levemir insulin reduced to 10 units since blood sugars are stable continue diabetic diet # chronic pain - continue gabapentin, baclofen and tramadol # chronic nausea patient complaining of daily nausea likely related to polypharmacy as per patient he has no depressive symptoms therefore dose of citalopram reduced to 10 mg, recommend to review other medications and discontinue medications, patient does not need including Ultram to minimize side effects # dyshidrotic eczema continue using steroid cream twice daily and use moisturizer in between, avoid using excessive handwashing. # Stage I sacral wound recommend to change position frequently was barrier cream as needed and use protective dressing Time Spent with Patient Time attestation: Total time spent providing and/or coordinating discharge services: Physical Exam Vital Signs: Vital Signs: Last Vital Signs Temp 96.9 F 10/11/20 11:39 Pulse 82 10/11/20 11:39 Resp 17 10/11/20 11:39 BP 137/66 10/11/20 11:39 Pulse Ox 98 10/11/20 11:39 Body Mass Index 26.6 General patient resting comfortably in no acute distress. Neck is supple no JVD. CVS regular rate rhythm, Respiratory lungs clear to auscultation, no respiratory distress, no wheeze, no rhonchi. Gastrointestinal abdomen soft, nontender, bowel sounds audible Extremities no clubbing cyanosis or edema. Skin vesicular rash both hands, stage I sacral wound. Nunez catheter with clear urine DS: Data Data Completed and Pending Labs on day of discharge: 10/09/20 19:23 XR chest 1V Stat 10/09/20 19:24 ECG 12 lead EKG Stat EKG Documentation DIRECTED CT head/brain wo con Stat 10/09/20 19:35 Ammonia Stat Basic Metabolic Panel Stat Complete Blood Count Auto Diff Stat Lactic Acid Stat Lipase Stat Liver Panel Stat 10/09/20 20:29 SARS COV2 PCR INHOUSE Stat 10/09/20 21:30 Urine Culture Routine 10/09/20 21:51 cefTRIAXone sodium [Rocephin] 1 gm 0.9 % Sodium Chloride [Ns] 50 ml IV ONCE 10/09/20 21:59 cefTRIAXone sodium [Rocephin] 1 gm .ROUTE .STK-MED ONE 10/09/20 22:00 0.9 % Sodium Chloride [Ns] 500 ml IV 1,000 mls/hr 10/10/20 00:07 Transfer Order Routine 10/10/20 06:28 Glucose, Whole Blood Routine 10/10/20 08:26 Glucose, Whole Blood Routine 10/10/20 11:41 Glucose, Whole Blood Routine 10/10/20 12:32 0.9 % Sodium Chloride [Ns] 1,000 ml IVCONT 100 mls/hr 10/10/20 14:29 Basic Metabolic Panel Routine 10/10/20 16:42 Zinc Oxide 20% Ointment 1 appl TOPICAL ONCE ONE 10/10/20 17:14 Glucose, Whole Blood Routine 10/10/20 20:53 Glucose, Whole Blood Routine 10/10/20 22:21 cefTRIAXone sodium [Rocephin] 1 gm .ROUTE .STK-MED ONE 10/11/20 04:34 Basic Metabolic Panel DAILY@0600 Complete Blood Count Auto Diff Routine 10/11/20 07:49 Glucose, Whole Blood Routine 10/11/20 11:36 Glucose, Whole Blood Routine Laboratory Last Values WBC 6.6 X10*3/uL (4.8-10.8) 10/11/20 04:34 RBC 3.30 X10*6/uL (4.60-5.80) L 10/11/20 04:34 Hgb 10.3 g/dl (14.0-18.0) L 10/11/20 04:34 Hct 31.8 % (42-52) L 10/11/20 04:34 MCV 96.4 fL (80-98) 10/11/20 04:34 MCH 31.2 pg (27.0-33.0) 10/11/20 04:34 MCHC 32.4 g/dl (31.0-36.0) 10/11/20 04:34 RDW 14.6 % (11.0-16.0) 10/11/20 04:34 Plt Count 251 X10*3/uL (160-400) 10/11/20 04:34 MPV 9.2 fL (9.4-12.4) L 10/11/20 04:34 Immature Gran % (Auto) 1.5 % (0.0-0.4) H 10/11/20 04:34 Neut % (Auto) 52.7 % (45-73) 10/11/20 04:34 Lymph % (Auto) 17.0 % (20-40) L 10/11/20 04:34 [place] % (Auto) 9.3 % (2-11) 10/11/20 04:34 Eos % (Auto) 19.0 % (0-4) H 10/11/20 04:34 Baso % (Auto) 0.5 % (0-2) 10/11/20 04:34 Lymph # (Auto) 1.1 X10*3/uL (1.2-4.9) L 10/11/20 04:34 [place] # (Auto) 0.6 X10*3/uL (0.1-1.2) 10/11/20 04:34 Eos # (Auto) 1.3 X10*3/uL (0.0-0.4) H 10/11/20 04:34 Baso # (Auto) 0.0 X10*3/uL (0.0-0.2) 10/11/20 04:34 Abs Immat Gran (auto) 0.10 X10*3/uL (0.00-0.03) H 10/11/20 04:34 Absolute Neuts (auto) 3.5 X10*3/uL (2.0-8.3) 10/11/20 04:34 Absolute Nucleated RBC 0.000 X10*3/uL (0.0-0.012) 10/11/20 04:34 Nucleated RBC % (auto) 0.0 /100WBC (0.0-0.2) 10/11/20 04:34 Sodium 136 mmol/L (135-145) 10/11/20 04:34 Potassium 4.2 mmol/l (3.3-5.1) 10/11/20 04:34 Chloride 108 mmol/L (96-108) 10/11/20 04:34 Carbon Dioxide 22 mmol/L (22-29) 10/11/20 04:34 Anion Gap 10 (12-20) L 10/11/20 04:34 BUN 17 mg/dL (9-16) H 10/11/20 04:34 Creatinine 1.01 mg/dL (0.5-1.4) 10/11/20 04:34 Estim Creat Clear Calc 71.4 10/11/20 04:34 Estimated GFR > 60 10/11/20 04:34 POC Glucose 112 mg/dL (60-115) 10/11/20 11:36 Random Glucose 84 mg/dL (60-115) D 10/11/20 04:34 Lactic Acid 0.8 mmol/L (0.5-2.0) 10/09/20 19:35 Calcium 7.9 mg/dL (8.4-10.2) L D 10/11/20 04:34 Total Bilirubin 0.4 mg/dL (0.0-1.0) 10/09/20 19:35 Direct Bilirubin 0.2 mg/dL (0.0-0.5) 10/09/20 19:35 AST 39 U/L (5-37) H 10/09/20 19:35 ALT 28 U/L (0-40) 10/09/20 19:35 Alkaline Phosphatase 63 U/L (39-117) 10/09/20 19:35 Ammonia 31 umol/L (13-55) 10/09/20 19:35 Total Protein 6.6 g/dL (6.5-8.0) 10/09/20 19:35 Albumin 3.7 g/dL (3.5-5.0) 10/09/20 19:35 Lipase 37 U/L (8-78) 10/09/20 19:35 Urine Color YELLOW 10/09/20 21:18 Urine Appearance TURBID 10/09/20 21:18 Urine pH 5.0 (5.0-8.0) 10/09/20 21:18 Ur Specific [place] >= 1.030 (1.005-1.025) H 10/09/20 21:18 Urine Protein 2+ MG/DL (NEG-TRACE) H 10/09/20 21:18 Urine Glucose (UA) NEG MG/DL (NEG) 10/09/20 21:18 Urine Ketones 5 MG/DL (NEG) 10/09/20 21:18 Urine Blood 3+ (NEG) H 10/09/20 21:18 Urine Nitrite POS (NEG) H 10/09/20 21:18 Ur Leukocyte Esterase TRACE (NEG) H 10/09/20 21:18 Urine RBC 30-49 /HPF (0) H 10/09/20 21:18 Urine WBC 5-9 /HPF (0-4) H 10/09/20 21:18 Ur Squamous Epith Cells TRACE /LPF 10/09/20 21:18 Urine Bacteria 2+ /LPF 10/09/20 21:18 Coronavirus (PCR) NEGATIVE (Negative) 10/09/20 20:29 Preliminary micro results at discharge 10/09/20 20:12 Blood Culture - Preliminary Blood - Venous No growth after 24 hours. 10/09/20 19:55 Blood Culture - Preliminary Blood - Venous No growth after 24 hours. Discharge Plan Discharge Patient Disposition: [facility] Referrals: Physician,Unknown [Primary Care Provider] - Discharge Medications: Continued baclofen 20 mg Tablet 20 mg PO QID RF: 0 bisacodyl 10 mg Suppository 10 mg CA DAILY PRN (Reason: Constipation) RF: 0 bisacodyl 5 mg Tablet 5 mg PO BEDTIME RF: 0 metformin 500 mg Tablet 500 mg PO BID RF: 0 polyethylene glycol 3350 17 gram Powder In Packet 17 g PO DAILY RF: 0 clobetasol 0.05 % Cream 1 applic TOPICAL BID RF: 0 gabapentin 300 mg Capsule 300 mg PO DAILY RF: 0 Nicotinamide 500-750-1.5-25 sfb-bo-xn-mg Tablet,Ext Release Multiphase 500 - 750 tab PO DAILY RF: 0 gabapentin 300 mg Tablet 600 mg PO BEDTIME RF: 0 lactulose 10 gram/15 mL Solution 15 ml PO BEDTIME RF: 0 melatonin 5 mg Tablet 5 mg PO BEDTIME PRN (Reason: Insomnia) RF: 0 trazodone 50 mg Tablet 25 mg PO BEDTIME PRN (Reason: Pain) RF: 0 tramadol 50 mg Tablet 50 mg PO BID PRN (Reason: Pain) RF: 0 tamsulosin 0.4 mg Capsule 0.4 mg PO DAILY RF: 0 Changed Levemir U-100 Insulin 100 unit/mL Solution 10 unit SUBCUT BEDTIME Qty: 0 RF: 0 citalopram 20 mg Tablet 10 mg PO DAILY Qty: 0 RF: 0 Discontinued sulfamethoxazole-trimethoprim 800-160 mg Tablet 1 tab PO BID RF: 0 Discharge Orders: Discharge Order (Routine); Ordered 10/11/20 Ordered By: Mary Schroeder Diet: diabetic diet Activity on Discharge: As tolerated Visit Report Forms: Patient Portal Discharge page Care Plan Goals: continue using steroid cream twice daily for both hand eczema keep ends dry and use moisturizing cream in between Health Concerns: continue all medications as prescribed Plan of Treatment: close outpatient follow-up as per primary care physician
--- NOTE | 2020-10-11 14:40 | MHC.CM.PN ---
PATIENT WAS SCHEDULED TO DISCHARGE BACK TO [facility] [address]. EFRA ([phone]) IS ASKING THAT PATIENT REMAIN ONE MORE NIGHT. HOSPITALIST EXPLAINED THAT PATIENT IS MEDICALLY READY FOR DISCHARGE. CALL TO ANUJA MEJIA COORDINATOR ([phone]). [place] IS CLOSED DUE TO HOLIDAY. [place] RN BULMARO ([phone]) MADE AWARE. RN, UNIT, AND EFRA MADE AWARE THAT PATIENT WILL RETURN TO FACILITY TOMORROW.
--- NOTE | 2020-10-11 14:49 | P.PNIM_ITS ---
Subjective Subjective Date of Service: 10/11/20 Interval History: follow-up on encephalopathy and acute kidney injury, patient complaining of chronic nausea ongoing for sometime, and also complaining of bilateral hand itching that is also chronic. Review of Systems General no headache no dizziness, no fever chills. CVS no chest pain, no palpitation. Respiratory no cough, no shortness of breath Gastrointestinal chronic persistent nausea Physical Exam Vital Signs: Vital Signs: Last Vital Signs Temp 96.8 F 10/11/20 12:00 Pulse 84 10/11/20 12:00 Resp 17 10/11/20 12:00 BP 135/63 10/11/20 12:00 Pulse Ox 98 10/11/20 12:00 Body Mass Index 26.6 General patient resting comfortably in no acute distress. Neck supple, no JVD. CVS regular rate rhythm, Respiratory lungs clear to auscultation, no respiratory distress Gastrointestinal abdomen soft, nontender, bowel sounds audible Extremities no edema. Neuro nonfocal Skin blistering rash both hands, stage I sacral ulcer Objective Data Current Medications Generic Name Dose Route Start Last Admin Trade Name Freq PRN Reason Stop Dose Admin Acetaminophen 650 mg 10/10/20 12:32 Acetaminophen 325 Mg Tablet PO Q6H PRN Pain, Mild (Pain Scale 1-3) Baclofen 20 mg 10/10/20 12:32 10/11/20 13:00 Baclofen 20 Mg Tablet PO 20 mg QID [facility] Administration Betamethasone Dipropion Augmented 1 appl 10/10/20 21:00 10/11/20 10:12 Betamethasone Dip Aug 0.05% Cr 15 Gm Tube TOPICAL 1 appl BID [facility] Administration Bisacodyl 10 mg 10/10/20 12:32 Bisacodyl 10 Mg Supp.Rect CA DAILY PRN Constipation Docusate Sodium 100 mg 10/10/20 12:32 Docusate Sodium 100 Mg Capsule PO DAILY PRN Constipation Escitalopram Oxalate 10 mg 10/11/20 09:00 10/11/20 09:20 Escitalopram Oxalate 10 Mg Tablet PO 10 mg DAILY [facility] Administration Gabapentin 300 mg 10/10/20 12:32 10/11/20 09:20 Gabapentin 300 Mg Capsule PO 300 mg DAILY [facility] Administration Gabapentin 600 mg 10/10/20 21:00 10/10/20 23:03 Gabapentin 300 Mg Capsule PO 600 mg BEDTIME [facility] Administration Heparin Sodium (Porcine) 5,000 unit 10/10/20 13:00 10/11/20 13:01 Heparin Sodium,Porcine 5,000 Unit/Ml Vial SUBCUT 5,000 unit Q12H [facility] Administration Ceftriaxone Sodium 1 gm/ 50 mls @ 100 mls/hr 10/10/20 22:00 10/11/20 00:29 Sodium Chloride IV Infused Q24H [facility] Infusion Insulin Glargine 10 unit 10/10/20 21:00 10/10/20 23:05 Insulin Glargine,Hum.Rec.Anlog 100 Unit/Ml 10 Ml Vial SUBCUT 10 unit BEDTIME [facility] Administration Insulin Human Lispro 0 unit 10/10/20 07:30 10/11/20 13:02 Insulin Lispro 100 Unit/Ml 3 Ml Vial SUBCUT Not Given QIDACHS [facility] Protocol Lactulose 10 gm 10/10/20 21:00 10/10/20 23:04 Lactulose 20 Gm/30 Ml Solution PO 10 gm BEDTIME [facility] Administration Ondansetron HCl 4 mg 10/10/20 12:32 10/11/20 07:56 Ondansetron Hcl 4 Mg/2 Ml Vial IVPUSH 4 mg Q8H PRN Administration Nausea and Vomiting Polyethylene Glycol 17 gm 10/10/20 12:32 10/11/20 09:19 Polyethylene Glycol 3350 17 Gm Powd.Pack PO 17 gm DAILY [facility] Administration Sodium Chloride 3 ml 10/10/20 12:32 10/11/20 09:09 0.9 % Sodium Chloride Flush 3 Ml Syringe IVFLUSH Not Given QSHIFT [facility] Tamsulosin HCl 0.4 mg 10/10/20 12:32 10/11/20 09:20 Tamsulosin Hcl 0.4 Mg Capsule PO 0.4 mg DAILY [facility] Administration Tramadol HCl 50 mg 10/10/20 12:32 Tramadol Hcl 50 Mg Tablet PO BID PRN Pain Trazodone HCl 25 mg 10/10/20 12:32 Trazodone Hcl 25 Mg Halftab PO BEDTIME PRN Pain Labs CBC & Chem 7: 10/11/20 04:34 10/11/20 04:34 Microbiology Microbiology Results: Microbiology 10/09/20 21:30 Urine clean catch - Clean Catch Midstream Urine Culture - Final No growth. 10/09/20 20:12 Blood - Venous Blood Culture - Preliminary No growth after 24 hours. 10/09/20 19:55 Blood - Venous Blood Culture - Preliminary No growth after 24 hours. Assessment and Plan (1) Altered mental status: Status: Acute (2) EDWARD (acute kidney injury): Status: Acute (3) Chronic pain syndrome: Status: Acute (4) Diabetes mellitus type 2 in obese: Status: Acute (5) Dehydration: Status: Acute (6) BPH (benign prostatic hyperplasia): Status: Acute (7) Depression: Status: Acute Assessment and Plan: # acute Encephalopathy-- resolved was likely secondary to acute kidney injury most likely related to recent use of Bactrim, and dehydration, repeat urine culture and blood culture showed no organism. CT brain negative # UTI - Patient recently treated at [facility] for acute retract infection has finish course of antibiotic repeat urine culture and blood cultures are negative no further antibiotics are required # EDWARD- resolved with IV hydration was likely related to use of Bactrim # DM - resume home medication upon discharge, blood sugars are stable continue diabetic diet # chronic pain - continue gabapentin, baclofen and tramadol, will reduce dose of baclofen due to nausea. # chronic nausea patient complaining of daily nausea likely related to polypharmacy as per patient he has no depressive symptoms therefore dose of citalopram reduced to 10 mg, Will reduce dose of baclofen to 20 mg t.i.d. will recommend PCP to further adjust medications to help with nausea will add Prilosec, normal LFTs hold off on further imaging studies # dyshidrotic eczema continue using steroid cream twice daily and use moisturizer in between, avoid using excessive handwashing. # Stage I sacral wound recommend to change position frequently ,barrier cream as needed and use protective dressing
[2020-10-11] MEDS: Acetaminophen 325 MG TABLET 650 MG PO (14:58)
[2020-10-11] MEDS: 0.9 % Sodium Chloride Flush 3 ML SYRINGE IVFLUSH (16:28)
[2020-10-11 16:37] LABS: Glucose, Whole Blood 129 mg/dL (60-115)
[2020-10-11] MEDS: Omeprazole 20 MG CAPSULE.DR PO (18:04)
[2020-10-11] MEDS: diphenhydrAMINE HCL 25 MG TABLET PO (19:49)
[2020-10-11 21:32] LABS: Glucose, Whole Blood 127 mg/dL (60-115)
[2020-10-11] MEDS: Lactulose 20 GM/30 ML SOLUTION 10 GM PO (22:51)
[2020-10-11] MEDS: Gabapentin 300 MG CAPSULE 600 MG PO (22:52)
[2020-10-12] MEDS: 0.9 % Sodium Chloride Flush 3 ML SYRINGE IVFLUSH ×2 (00:29→09:54)
[2020-10-12] MEDS: Heparin Sodium,Porcine 5,000 UNIT/ML VIAL 5000 UNIT SUBCUT (00:29)
[2020-10-12 03:43] VITALS: BP 156/70; PULSE 96; RESP 16; TEMP 36.9; O2SAT 98
[2020-10-12] MEDS: Omeprazole 20 MG CAPSULE.DR PO (06:14)
[2020-10-12 08:00] VITALS: BP 158/77; PULSE 97; RESP 16; TEMP 36.8; O2SAT 100
[2020-10-12 08:04] LABS: Glucose, Whole Blood 99 mg/dL (60-115)
[2020-10-12] MEDS: Gabapentin 300 MG CAPSULE PO (09:54)
[2020-10-12] MEDS: Escitalopram Oxalate 10 MG TABLET 5 MG PO (09:55)
[2020-10-12] MEDS: traMADoL HCL 50 MG TABLET PO (09:55)
[2020-10-12] MEDS: Baclofen 20 MG TABLET PO (09:55)
[2020-10-12] MEDS: Tamsulosin HCL 0.4 MG CAPSULE PO (09:55)
[2020-10-12] MEDS: polyethylene glycoL 3350 17 GM POWD.PACK PO (09:55)
[2020-10-12] MEDS: Betamethasone Dip Aug 0.05% Cr 15 GM TUBE 1 APPL TOPICAL (09:56)
[2020-10-12 11:01] LABS: COVID-19 Test Negative (Negative)
[2020-10-12 11:19] VITALS: BP 146/72; PULSE 90; RESP 16; TEMP 36.2; O2SAT 98
--- NOTE | 2020-10-12 11:27 | MHC.CM.PN ---
Patient is returning to [facility] on [address] today for 13:00. Alert ambulance transport arranged [facility] ([phone]) Unit and RN aware of plan. , Tete ([phone]) also aware and in agreement with plan.
[2020-10-12 11:59] LABS: Glucose, Whole Blood 161 mg/dL (60-115)
[2020-10-12] MEDS: Insulin Lispro 100 UNIT/ML 3 ML VIAL SUBCUT (12:09)
--- NOTE | 2020-10-12 12:13 | P.DS_ITS ---
DS: Providers Provider Date of admission: 10/10/20 00:20 Primary care physician: Unknown Physician Consults: 10/10/20 14:46 Consult to Wound Care Provider Routine Consulting Provider: Priyanka Solis Reason for consultation: stage II on buttocks Has provider been notified: Yes DS: Diagnosis Discharge Diagnosis (1) Altered mental status: Status: Acute (2) EDWARD (acute kidney injury): Status: Acute (3) Chronic pain syndrome: Status: Acute (4) Diabetes mellitus type 2 in obese: Status: Acute (5) Dehydration: Status: Acute (6) BPH (benign prostatic hyperplasia): Status: Acute (7) Depression: Status: Acute DS: Medications Discharge Medications Home Medications: Home Medications Medication Instructions Recorded Confirmed [id number] ox-zinc 500 - 750 tab PO DAILY 10/09/20 10/09/20 bisacodyl 5 mg PO BEDTIME 10/09/20 10/09/20 bisacodyl 10 mg CA DAILY PRN 10/09/20 10/09/20 clobetasol 1 applic TOPICAL BID 10/09/20 10/09/20 gabapentin 300 mg PO DAILY 10/09/20 10/09/20 gabapentin 600 mg PO BEDTIME 10/09/20 10/10/20 lactulose 15 ml PO BEDTIME 10/09/20 10/09/20 melatonin 5 mg PO BEDTIME PRN 10/09/20 10/09/20 metformin 500 mg PO BID 10/09/20 10/09/20 polyethylene glycol 3350 17 g PO DAILY 10/09/20 10/09/20 tamsulosin 0.4 mg PO DAILY 10/09/20 10/09/20 tramadol 50 mg PO BID PRN 10/09/20 10/09/20 trazodone 25 mg PO BEDTIME PRN 10/09/20 10/09/20 Previous Rx's Medication Instructions Recorded Levemir U-100 Insulin 10 unit SUBCUT BEDTIME #0 ml 10/11/20 citalopram 10 mg PO DAILY #0 tab 10/11/20 baclofen 20 mg PO TID #0 tab 10/12/20 omeprazole 20 mg PO DAILY@0630 #30 cap 10/12/20 DS: Summary Hospital Course Hospital Course: history of presenting illness 75-year-old male with past medical history of MS (chronically bed-bound), BPH, depression, mood better, type 2 diabetes, chronic UTIs who presents to the hospital from [facility] with complaints of increased altered mentation. Patient was recently discharged from [facility] after presenting there was sepsis secondary to UTI. Patient was treated with IV antibiotics transition to Bactrim per sensitivity and sent home. His brought the patient back into the hospital stating that the patient has been more altered, has low appetite, oral intake. Patient is very confused at this time and unable to give me any history. review of systems not obtained as patient is confused. arrival to the ED hemodynamically stable with stable vitals Labs are significant for WBC count of 11.6, BUN of 24, creatinine of 2.32 a baseline around 0.8, UA that is positive for leukocyte esterase, nitrates, WBC COVID-19 negative past medical history is obtained from chart Past medical history: BPH with chronic indwelling Nunez catheter, DM, MS, mood disorder, chronic pain syndrome, depression, recurrent UTI Past surgical history: None per record hospital course acute Encephalopathy-- resolved was likely secondary to acute kidney injury most likely related to recent use of Bactrim, and dehydration, repeat urine culture and blood culture showed no organism. # UTI - Patient recently treated at [facility] for acute retract infection has finish course of antibiotic repeat urine culture and blood cultures are negative no further antibiotics are required # EDWARD- resolved with IV hydration was likely related to use of Bactrim # DM - resume home medication dose of Levemir insulin reduced to 10 units since blood sugars are stable continue diabetic diet # chronic pain - continue gabapentin, baclofen and tramadol # chronic nausea patient complaining of daily nausea likely related to polypharmacy as per patient he has no depressive symptoms therefore dose of citalopram reduced to 10 mg, recommend to review other medications and discontinue medications, patient does not need including Ultram to minimize side effects # dyshidrotic eczema continue using steroid cream twice daily and use moisturizer in between, avoid using excessive handwashing. # Stage I sacral wound recommend to change position frequently was barrier cream as needed and use protective dressing Time Spent with Patient Time attestation: Total time spent providing and/or coordinating discharge services: Physical Exam Vital Signs: Vital Signs: Last Vital Signs Temp 97.2 F 10/12/20 11:19 Pulse 90 10/12/20 11:19 Resp 16 10/12/20 11:19 BP 146/72 H 10/12/20 11:19 Pulse Ox 98 10/12/20 11:19 Body Mass Index 26.6 DS: Data Data Completed and Pending Labs on day of discharge: 10/09/20 19:23 XR chest 1V Stat 10/09/20 19:24 ECG 12 lead EKG Stat EKG Documentation DIRECTED CT head/brain wo con Stat 10/09/20 19:35 Ammonia Stat Basic Metabolic Panel Stat Complete Blood Count Auto Diff Stat Lactic Acid Stat Lipase Stat Liver Panel Stat 10/09/20 20:29 SARS COV2 PCR INHOUSE Stat 10/09/20 21:30 Urine Culture Routine 10/09/20 21:51 cefTRIAXone sodium [Rocephin] 1 gm 0.9 % Sodium Chloride [Ns] 50 ml IV ONCE 10/09/20 21:59 cefTRIAXone sodium [Rocephin] 1 gm .ROUTE .STK-MED ONE 10/09/20 22:00 0.9 % Sodium Chloride [Ns] 500 ml IV 1,000 mls/hr 10/10/20 00:07 Transfer Order Routine 10/10/20 06:28 Glucose, Whole Blood Routine 10/10/20 08:26 Glucose, Whole Blood Routine 10/10/20 11:41 Glucose, Whole Blood Routine 10/10/20 12:32 0.9 % Sodium Chloride [Ns] 1,000 ml IVCONT 100 mls/hr Baclofen [Lioresal] 20 mg PO QID 10/10/20 14:29 Basic Metabolic Panel Routine 10/10/20 16:42 Zinc Oxide 20% Ointment 1 appl TOPICAL ONCE ONE 10/10/20 17:14 Glucose, Whole Blood Routine 10/10/20 20:53 Glucose, Whole Blood Routine 10/10/20 22:00 cefTRIAXone sodium [Rocephin] 1 gm 0.9 % Sodium Chloride [Ns] 50 ml IV Q24H 10/10/20 22:21 cefTRIAXone sodium [Rocephin] 1 gm .ROUTE .STK-MED ONE 10/11/20 04:34 Basic Metabolic Panel DAILY@0600 Complete Blood Count Auto Diff Routine 10/11/20 07:49 Glucose, Whole Blood Routine 10/11/20 09:00 Escitalopram Oxalate [Lexapro] 10 mg PO DAILY 10/11/20 11:36 Glucose, Whole Blood Routine 10/11/20 16:26 Glucose, Whole Blood Routine 10/11/20 18:47 diphenhydrAMINE HCL [Benadryl] 25 mg PO ONCE ONE 10/11/20 21:02 Glucose, Whole Blood Routine 10/12/20 07:27 Glucose, Whole Blood Routine 10/12/20 10:28 COVID-19 ID NOW ([facility]) Urgent 10/12/20 11:18 Glucose, Whole Blood Routine Laboratory Last Values WBC 6.6 X10*3/uL (4.8-10.8) 10/11/20 04:34 RBC 3.30 X10*6/uL (4.60-5.80) L 10/11/20 04:34 Hgb 10.3 g/dl (14.0-18.0) L 10/11/20 04:34 Hct 31.8 % (42-52) L 10/11/20 04:34 MCV 96.4 fL (80-98) 10/11/20 04:34 MCH 31.2 pg (27.0-33.0) 10/11/20 04:34 MCHC 32.4 g/dl (31.0-36.0) 10/11/20 04:34 RDW 14.6 % (11.0-16.0) 10/11/20 04:34 Plt Count 251 X10*3/uL (160-400) 10/11/20 04:34 MPV 9.2 fL (9.4-12.4) L 10/11/20 04:34 Immature Gran % (Auto) 1.5 % (0.0-0.4) H 10/11/20 04:34 Neut % (Auto) 52.7 % (45-73) 10/11/20 04:34 Lymph % (Auto) 17.0 % (20-40) L 10/11/20 04:34 [place] % (Auto) 9.3 % (2-11) 10/11/20 04:34 Eos % (Auto) 19.0 % (0-4) H 10/11/20 04:34 Baso % (Auto) 0.5 % (0-2) 10/11/20 04:34 Lymph # (Auto) 1.1 X10*3/uL (1.2-4.9) L 10/11/20 04:34 [place] # (Auto) 0.6 X10*3/uL (0.1-1.2) 10/11/20 04:34 Eos # (Auto) 1.3 X10*3/uL (0.0-0.4) H 10/11/20 04:34 Baso # (Auto) 0.0 X10*3/uL (0.0-0.2) 10/11/20 04:34 Abs Immat Gran (auto) 0.10 X10*3/uL (0.00-0.03) H 10/11/20 04:34 Absolute Neuts (auto) 3.5 X10*3/uL (2.0-8.3) 10/11/20 04:34 Absolute Nucleated RBC 0.000 X10*3/uL (0.0-0.012) 10/11/20 04:34 Nucleated RBC % (auto) 0.0 /100WBC (0.0-0.2) 10/11/20 04:34 Sodium 136 mmol/L (135-145) 10/11/20 04:34 Potassium 4.2 mmol/l (3.3-5.1) 10/11/20 04:34 Chloride 108 mmol/L (96-108) 10/11/20 04:34 Carbon Dioxide 22 mmol/L (22-29) 10/11/20 04:34 Anion Gap 10 (12-20) L 10/11/20 04:34 BUN 17 mg/dL (9-16) H 10/11/20 04:34 Creatinine 1.01 mg/dL (0.5-1.4) 10/11/20 04:34 Estim Creat Clear Calc 71.4 10/11/20 04:34 Estimated GFR > 60 10/11/20 04:34 POC Glucose 161 mg/dL (60-115) H 10/12/20 11:18 Random Glucose 84 mg/dL (60-115) D 10/11/20 04:34 Lactic Acid 0.8 mmol/L (0.5-2.0) 10/09/20 19:35 Calcium 7.9 mg/dL (8.4-10.2) L D 10/11/20 04:34 Total Bilirubin 0.4 mg/dL (0.0-1.0) 10/09/20 19:35 Direct Bilirubin 0.2 mg/dL (0.0-0.5) 10/09/20 19:35 AST 39 U/L (5-37) H 10/09/20 19:35 ALT 28 U/L (0-40) 10/09/20 19:35 Alkaline Phosphatase 63 U/L (39-117) 10/09/20 19:35 Ammonia 31 umol/L (13-55) 10/09/20 19:35 Total Protein 6.6 g/dL (6.5-8.0) 10/09/20 19:35 Albumin 3.7 g/dL (3.5-5.0) 10/09/20 19:35 Lipase 37 U/L (8-78) 10/09/20 19:35 Urine Color YELLOW 10/09/20 21:18 Urine Appearance TURBID 10/09/20 21:18 Urine pH 5.0 (5.0-8.0) 10/09/20 21:18 Ur Specific [place] >= 1.030 (1.005-1.025) H 10/09/20 21:18 Urine Protein 2+ MG/DL (NEG-TRACE) H 10/09/20 21:18 Urine Glucose (UA) NEG MG/DL (NEG) 10/09/20 21:18 Urine Ketones 5 MG/DL (NEG) 10/09/20 21:18 Urine Blood 3+ (NEG) H 10/09/20 21:18 Urine Nitrite POS (NEG) H 10/09/20 21:18 Ur Leukocyte Esterase TRACE (NEG) H 10/09/20 21:18 Urine RBC 30-49 /HPF (0) H 10/09/20 21:18 Urine WBC 5-9 /HPF (0-4) H 10/09/20 21:18 Ur Squamous Epith Cells TRACE /LPF 10/09/20 21:18 Urine Bacteria 2+ /LPF 10/09/20 21:18 Coronavirus (PCR) NEGATIVE (Negative) 10/09/20 20:29 COVID-19 ([facility]) Negative (Negative) 10/12/20 10:28 COVID-19 Clin Com See Note 10/12/20 10:28 Preliminary micro results at discharge 10/09/20 20:12 Blood Culture - Preliminary Blood - Venous No growth after 48 hours. 10/09/20 19:55 Blood Culture - Preliminary Blood - Venous No growth after 48 hours. Discharge Plan Discharge Anticipated Discharge Date/Time: 10/12/20 10:07 Patient Disposition: er [facility] Referrals: Samantha Mott [Outside] Physician,Unknown [Primary Care Provider] - Discharge Medications: New omeprazole 20 mg Capsule,Delayed Release(Dr/Ec) 20 mg PO DAILY@0630 Qty: 30 RF: 0 Continued bisacodyl 10 mg Suppository 10 mg CA DAILY PRN (Reason: Constipation) RF: 0 bisacodyl 5 mg Tablet 5 mg PO BEDTIME RF: 0 metformin 500 mg Tablet 500 mg PO BID RF: 0 polyethylene glycol 3350 17 gram Powder In Packet 17 g PO DAILY RF: 0 clobetasol 0.05 % Cream 1 applic TOPICAL BID RF: 0 gabapentin 300 mg Capsule 300 mg PO DAILY RF: 0 [id number] ox-zinc 500-750-1.5-25 rqv-sq-eo-mg Tablet,Ext Release Multiphase 500 - 750 tab PO DAILY RF: 0 gabapentin 300 mg Tablet 600 mg PO BEDTIME RF: 0 lactulose 10 gram/15 mL Solution 15 ml PO BEDTIME RF: 0 melatonin 5 mg Tablet 5 mg PO BEDTIME PRN (Reason: Insomnia) RF: 0 trazodone 50 mg Tablet 25 mg PO BEDTIME PRN (Reason: Pain) RF: 0 tramadol 50 mg Tablet 50 mg PO BID PRN (Reason: Pain) RF: 0 tamsulosin 0.4 mg Capsule 0.4 mg PO DAILY RF: 0 Changed Levemir U-100 Insulin 100 unit/mL Solution 10 unit SUBCUT BEDTIME Qty: 0 RF: 0 citalopram 20 mg Tablet 10 mg PO DAILY Qty: 0 RF: 0 baclofen 20 mg Tablet 20 mg PO TID Qty: 0 RF: 0 Discontinued sulfamethoxazole-trimethoprim 800-160 mg Tablet 1 tab PO BID RF: 0 Discharge Orders: Discharge Order (Routine); Ordered 10/11/20 Ordered By: Mary Schroeder Diet: diabetic diet Activity on Discharge: As tolerated Care Plan Goals: continue using steroid cream twice daily for both hand eczema keep ends dry and use moisturizing cream in between Health Concerns: continue all medications as prescribed Plan of Treatment: close outpatient follow-up as per primary care physician
== END 2020-10-12 13:05 | disposition skilled nursing facility (03) | DRG 690 ==
LOC: HO.ED 10-10 05:02 → HO.S3 10-10 10:06
PROVIDERS: Internal Medicine; Admitting Provider Internal Medicine; Emergency Provider Emergency Medicine; Visit Provider Hospitalist
DX: N39.0 Urinary tract infection, site not specified (principal); N17.9 Acute kidney failure, unspecified; G93.40 Encephalopathy, unspecified; N40.0 Benign prostatic hyperplasia without lower urinary tract symptoms; E11.9 Type 2 diabetes mellitus without complications; F32.9 Major depressive disorder, single episode, unspecified; G35 Multiple sclerosis; G89.29 Other chronic pain; Z96.0 Presence of urogenital implants; L30.1 Dyshidrosis [pompholyx]; L89.151 Pressure ulcer of sacral region, stage 1; E86.0 Dehydration; Z74.01 Bed confinement status; Z20.828 Contact with and (suspected) exposure to other viral communicable diseases; Z88.5 Allergy status to narcotic agent; Z79.84 Long term (current) use of oral hypoglycemic drugs; Z79.891 Long term (current) use of opiate analgesic; Z79.899 Other long term (current) drug therapy
CPT/HCPCS: 36415; 70450; 71045; 80048; 80076; 81001; 82140; 82947; 83605; 83690; 85025; 87040; 87086; 87635; 93005; 96365; 99285; J0696; J2405; Q0163; U0003

== ENCOUNTER 2021-03-13 08:32 | Inpatient (IN) | payer OTHER, MEDICARE, SELFPAY ==
[2021-03-13] VITALS (13 sets, daily range): BP systolic 57–158; BP diastolic 32–69; PULSE 75–125; RESP 5–18; TEMP 35.8–39.7; O2SAT 90–96; BMI 23.2; BMI 28.4
--- NOTE | ~2021-03-13 | CT_ITS ---
EXAMINATION: CT BRAIN WITHOUT CONTRAST. CHEST X-RAY. CLINICAL INFORMATION: Altered mental syndrome. Hypoxia COMPARISON: CT brain 10/09/2020 TECHNIQUE: 5 mm thin axial and reformatted 2 mm thin sagittal and coronal images of brain were obtained without contrast. DLP [id number] Chest x-ray AP one view FINDINGS: BRAIN: There is no acute intra-axial, extra-axial bleed, masses or midline shift. There is no acute infarction in evolution. The lateral ventricles are symmetrical but mildly enlarged. There is diffuse periventricular hypodensity in both cerebral hemispheres without mass effect. There is no edema. No abnormality seen in the posterior fossa.. Bone windows reveal no calvarial abnormality. Bilateral paranasal sinuses and mastoid air cells are well-aerated. There is small polyps or retention cysts in left maxillary sinus. CHEST: The lungs are hypoexpanded but clear of acute process. Heart size and pulmonary vascularity is normal. No gross bony abnormality seen. CT/CT head/brain wo con IMPRESSION: No acute intracranial process seen. Mild age-related slight volume loss with chronic small vessel microangiopathy in both cerebral hemispheres. Hypoexpanded lungs with no acute intrathoracic process seen.
--- NOTE | ~2021-03-13 | XR_ITS ---
EXAMINATION: XR SHOULDER, RIGHT CLINICAL INFORMATION: Pain COMPARISON: None TECHNIQUE: AP external rotation, Grashey, scapular Y, and axillary views of the right shoulder. FINDINGS: No acute fracture or dislocation. Glenohumeral and acromioclavicular alignment is anatomic with normal joint space. Mottled appearance of the scapula, humerus and distal clavicle. No abnormal soft tissue calcifications. XR/XR shoulder RT min 2V IMPRESSION: No acute findings. Mottled appearance of the bones could reflect an infiltrative neoplastic marrow process such as myeloma.
--- NOTE | ~2021-03-13 | XR_ITS ---
EXAMINATION: XR CHEST CLINICAL INFORMATION: Check line and tube placement COMPARISON: Previous chest x-ray from earlier the same day TECHNIQUE: Frontal view of the chest was obtained. FINDINGS: There is a new right jugular line with tip projecting over the SVC. There is a nasogastric tube with tip projecting over the proximal stomach. The cardiac and mediastinal contours are stable. There is increased density at the left lateral costophrenic angle questionable for atelectasis or small effusion. The right lung is clear. There is no pneumothorax. XR/XR chest 1V IMPRESSION: Satisfactory position of right jugular line and nasogastric tube. No pneumothorax. Question atelectasis or small effusion at the left lung base.
--- NOTE | ~2021-03-13 | XR_ITS ---
EXAMINATION: XR CHEST AND BILATERAL RIBS XR BONE SURVEY CLINICAL INFORMATION: Pain. Mottled appearance of right shoulder. COMPARISON: Right shoulder 03/18/2021 TECHNIQUE: Chest one view. Bilateral ribs 4 views. Whole-body bone survey. FINDINGS: CHEST: Both lungs are fairly well expanded and clear of acute pneumonic process. The heart size and pulmonary vascularity is normal. Bilateral Ribs: Multiple views of bilateral ribs reveal no visible rib fracture or lytic process. The soft tissues are normal. BONE SURVEY: Single lateral skull view reveals no bony abnormality. There is no lytic or sclerotic process. Chest: The lungs are expanded and clear. The heart size and pulmonary vascularity is normal. No gross bony abnormality seen. cervical spine: There is mild straightening of cervical lordosis. The vertebral heights and alignment are normal. There is loss of disc height at all disc levels with moderate ventral spondylosis at C4-C5 disc level. No lytic process seen. Dorsal Spine: There is maintained thoracic kyphosis. The vertebral heights and alignment is normal. Lumbar Spine: There is normal lumbar lordosis. There is anterior wedging L1 vertebra of indeterminate age. Rest of vertebral height is normal. There is mild degenerative disc changes L3-L4, L4-L5 and L5-S1 disc levels. No lytic process. Bilateral Humeri: There is mottled appearance of bilateral humerus, bilateral clavicle and the right scapula. Bilateral Radius and Ulna: There is a mottled appearance of bilateral distal radius and ulna as well as proximal radius bone marrow. No fracture or periosteal thickening seen. Bilateral Femora: There is mottled appearance of entire bilateral femora. No fracture or dislocation. The hip joints are symmetrical without any fracture or dislocation. The soft tissues are normal. Bilateral Tibia and Fibula: There is diffuse osteopenia with mild mottled appearance seen in the proximal and distal tibia and fibula bilaterally. There is horizontal lucency seen along bilateral distal tibia and fibula, suspicious for nondisplaced fractures. There is reduction in medial compartment hip joint spaces bilaterally but no fracture seen. Mild mottling of bilateral jovita and the proximal metatarsal bones are seen as well. XR/XR bone survey IMPRESSION: Diffuse mottling appearance of bone marrow involving bilateral humeri, right scapula, clavicles, bilateral femora, bilateral tibia and fibula and bones of the proximal foot. These findings can be seen with infiltrative bone marrow disease such as multiple myeloma, severe anemia or severe osteoporosis. There are fractures of bilateral distal tibia and distal fibula suspected. Correlate with clinical exam.
--- NOTE | 2021-03-13 08:52 | ECG_ITS ---
Test Reason : AMS Blood Pressure : / mmHG Vent. Rate : 128 BPM Atrial Rate : 128 BPM P-R Int : 140 ms QRS Dur : 090 ms QT Int : 298 ms P-R-T Axes : 069 062 065 degrees QTc Int : 435 ms Sinus tachycardia Nonspecific T wave abnormality Abnormal ECG When compared with ECG of 09-OCT-2020 19:45, Nonspecific ST and T wave abnormality more prominent Referred By: Keely Muñoz Electronically Signed By:JOSEP SHARIF
--- NOTE | 2021-03-13 09:26 | ED_ITS ---
HPI - Altered Mental Status General Chief Complaint: Altered Mental Status <SAUL Mccann - Last Filed: 03/13/21 17:09> Stated Complaint: AMS <SAUL Mccann - Last Filed: 03/13/21 17:09> Time Seen by Provider: 03/13/21 08:40 <SAUL Mccann - Last Filed: 03/13/21 17:09> Source: EMS and old records reviewed <SAUL Mccann - Last Filed: 03/13/21 17:09> Mode of arrival: EMS <SAUL Mccann - Last Filed: 03/13/21 17:09> History of Present Illness HPI narrative: 75-year-old male with a past medical history of MS chronically bed-bound, BPH, depression, mood disorder, DM, chronic UTIs with indwelling Nunez catheter, presenting to the ED from correction with decreased responsiveness/AMS and hypotension since this morning. Per EMS at baseline patient is awake/alert, joking around with correction staff. No reported fall/trauma. History limited secondary to patient's acute AMS/mental status. <SAUL Mccann - Last Filed: 03/13/21 17:09> MD complaint: altered mental status and decreased responsiveness <SAUL Mccann Last Filed: 03/13/21 17:09> Related Data Home Medications: Home Medications Medication Instructions Recorded Confirmed bisacodyl 5 mg PO BEDTIME 10/09/20 03/13/21 bisacodyl 10 mg ND DAILY 10/09/20 03/13/21 clobetasol 1 applic TOPICAL BID 10/09/20 03/13/21 gabapentin 300 mg PO BID@0630,1200 10/09/20 03/13/21 lactulose 30 ml PO DAILY 10/09/20 03/13/21 metformin 500 mg PO BID 10/09/20 03/13/21 tamsulosin 0.4 mg PO DAILY 10/09/20 03/13/21 tramadol 50 mg PO BID PRN 10/09/20 03/13/21 trazodone 25 mg PO BEDTIME 10/09/20 03/13/21 acetaminophen 650 mg PO Q4H PRN 03/13/21 03/13/21 amlodipine 7.5 mg PO DAILY 03/13/21 03/13/21 aspirin 81 mg PO DAILY 03/13/21 03/13/21 gabapentin 600 mg PO BEDTIME 03/13/21 03/13/21 insulin lispro [Humalog U-100 sliding scale dose QIDACHS 03/13/21 Insulin] melatonin 3 mg PO BEDTIME 03/13/21 03/13/21 niacinamide 500 mg PO TID 03/13/21 03/13/21 prednisone 10 mg PO DAILY 03/13/21 03/13/21 rosuvastatin 10 mg PO DAILY 03/13/21 03/13/21 sennosides [senna] 17.2 mg PO BID 03/13/21 03/13/21 Previous Rx's Medication Instructions Recorded Levemir U-100 Insulin 10 unit SUBCUT BEDTIME #0 ml 10/11/20 citalopram 10 mg PO DAILY #0 tab 10/11/20 baclofen 20 mg PO TID #0 tab 10/12/20 omeprazole 20 mg PO DAILY@0630 #30 cap 10/12/20 cefuroxime axetil 500 mg PO BID #16 tab 03/19/21 finasteride [Proscar] 5 mg PO DAILY #30 tab 03/19/21 <SAUL Mccann - Last Filed: 03/13/21 17:09> Allergies/Adverse Reactions: Allergies Allergy/AdvReac Type Severity Reaction Status Date / Time Benzodiazepines Allergy Unknown UNKNOWN Verified 10/09/20 22:49 [BENZODIAZEPINES] dalfampridine [From AMPYRA] Allergy Unknown UNKNOWN Verified 10/09/20 22:49 duloxetine [From CYMBALTA] Allergy Unknown UNKNOWN Verified 10/09/20 22:49 ezetimibe [From ZETIA] Allergy Unknown UNKNOWN Verified 10/09/20 22:49 niacin [NIACIN] Allergy Unknown UNKNOWN Verified 10/09/20 22:49 pravastatin [PRAVASTATIN] Allergy Unknown UNKNOWN Verified 10/09/20 22:49 Pvaetyp-Coz-Wxd Reductase Allergy Unknown UNKNOWN Verified 10/09/20 22:49 Inhibitor [BYSYDUA-ZLZ-SHR REDUCTASE INHIBITOR] lorazepam [From ATIVAN] AdvReac Severe EXCESSIVE Verified 10/09/20 22:49 SEDATION doxycycline [DOXYCYCLINE] AdvReac Mild esophogeal Verified 10/09/20 22:49 iritation methylprednisolone AdvReac Mild heartburn Verified 10/09/20 22:49 [From SOLU-MEDROL] ertapenem [From INVANZ] AdvReac Unknown possible Verified 10/09/20 22:49 cause of bullous pemphigoid <SAUL Mccann - Last Filed: 03/13/21 17:09> Review of Systems Review of Systems: Constitutional: + Fever Neuro: + Weakness, +AMS History limited secondary to patient's acute AMS <SAUL Mccann - Last Filed: 03/13/21 17:09> Yes all other systems are reviewed and are negative <SAUL Mccann - Last Filed: 03/13/21 17:09> [facility] Past Medical History Attestation statement: The following information was validated with the patient. <SAUL Mccann - Last Filed: 03/13/21 17:09> Medical History: Medical History (Updated 03/19/21 @ 09:02 by Sandra Blake NP) BPH (benign prostatic hyperplasia) Chronic pain syndrome Chronic renal failure Dehydration Depression Diabetes mellitus type 2 in obese Multiple sclerosis Urinary tract infection <SAUL Mccann - Last Filed: 03/13/21 17:09> Social History Social History: Social History Household Members: Other Housing: Senior Living Smoking Status: Never smoker Advance Directives Date on File: 10/13/20 service: Yes Current occupational status: retired <SAUL Mccann - Last Filed: 03/13/21 17:09> Physical Exam Vital Signs: Vital Signs: Last Vital Signs Temp 98.7 F 03/19/21 07:31 Pulse 84 03/19/21 09:26 Resp 18 03/19/21 07:31 BP 119/57 L 03/19/21 09:26 Pulse Ox 96 03/19/21 07:31 Body Mass Index 28.4 <SAUL Mccann - Last Filed: 03/13/21 17:09> Vital Signs: Last Vital Signs Temp 98.7 F 03/19/21 07:31 Pulse 84 03/19/21 09:26 Resp 18 03/19/21 07:31 BP 119/57 L 03/19/21 09:26 Pulse Ox 96 03/19/21 07:31 Body Mass Index 28.4 <Fili Aviles MD - Last Filed: 03/20/21 12:32> Const: General: patient obtunded <Keely Muñoz PA - Last Filed: 03/13/21 17:09> Orientation/consciousness: patient obtunded <Keely Muñoz PA - Last Filed: 03/13/21 17:09> Limitations: altered mental status <Keely Muñoz PA - Last Filed: 03/13/21 17:09> HENMT: Head: Yes normal to inspection <Keely Muñoz PA - Last Filed: 03/13/21 17:09> General nose exam: Normal external nose present <Keely Muñoz PA - Last Filed: 03/13/21 17:09> Face and sinus: Yes normal facial exam <Keely Muñoz PA - Last Filed: 03/13/21 17:09> Eyes: General: appearance normal, both eyes and all related structures <Keely Muñoz PA - Last Filed: 03/13/21 17:09> Pupils: Equal, round and reactive pupils present <Keely Muñoz PA - Last Filed: 03/13/21 17:09> Neck: Neck: Yes normal visual inspection <Keely Muñoz PA - Last Filed: 03/13/21 17:09> Resp: Other: Coarse lung sounds throughout <Keely Muñoz PA - Last Filed: 03/13/21 17:09> Effort & Inspection: normal respiratory effort <Keely Muñoz PA - Last Filed: 03/13/21 17:09> Auscultation: rhonchi throughout <Keely Muñoz PA - Last Filed: 03/13/21 17:09> Cardio: Rate: regular rate and tachycardic <Keely Muñoz PA - Last Filed: 03/13/21 17:09> Rhythm: regular rhythm <Keely Muñoz PA - Last Filed: 03/13/21 17:09> Heart sounds: S1 normal heart sound present and S2 normal heart sound present <Keely Muñoz PA - Last Filed: 03/13/21 17:09> GI: Inspection: Yes normal to inspection <Keely Muñoz PA - Last Filed: 03/13/21 17:09> Palpation (GI): Soft to palpation, nontender, no guarding and not rigid <SAUL Mccann - Last Filed: 03/13/21 17:09> Skin: Rashes: no rashes <SAUL Mccann - Last Filed: 03/13/21 17:09> Neuro: General: patient obtunded <SAUL Mccann - Last Filed: 03/13/21 17:09> Cranial nerves: Yes Equal, round and reactive pupils present <SAUL Mccann - Last Filed: 03/13/21 17:09> Extrem: General: Yes normal to inspection and Yes no pedal edema <SAUL Mccann - Last Filed: 03/13/21 17:09> Course Course Course Narrative: -head CT without acute intracranial process -CXR with hyperexpanded lungs, no acute disease -1123--leukocytosis of 29.6, H&H stable, EDWARD with creatinine of 2.5, lactic acidosis of 5.1 >> 30 mg/kg IV fluids ordered -troponin elevated at 47.9 (chronically elevated) likely from renal dysfunction > will obtain 3 hour repeat -UA infected > based on prior urine cultures and patient's high resistance will give Macrobid capsule through NGT after discussion with pharmacy RIA on file documents DNR/DNI, however per patient's nurse from [facility] overturned in the past, and desired life-sustaining measures. Called and spoke to Alyx on the phone today, she is unsure how she wants to proceed, is on way to ED now with son to discuss further. -1230--Conversation was had with , son, Dr. Aviles and myself about DNR/DNI status, central line placement for pressers, and NG tube for antibiotics > 1310 decision was made to keep patient DNR/DNI, however family agreeable to central line/pressers & NG tube placement for Abx. Central line consent obtained and in patient's chart -Levophed initiated after central line placement confirmed, an NG tube placed. Patient admitted to ICU <SAUL Mccann - Last Filed: 03/13/21 17:09> I agree with the history. My physical exam is unresponsive elderly male low BP, lungs with Rhonchi, CV RRR, urine appears infected. patient is clearly septic. Patient is a do not intubate. Will contact family to make sure we should not be more aggressive <Fili Aviles MD - Last Filed: 03/20/21 12:32> Procedures Central Line Placement Right IJ: Time Out Performed: Yes <SAUL Mccann - Last Filed: 03/13/21 17:09> Patient Placed on Monitor/Pulse Ox: Yes <SAUL Mccann - Last Filed: 03/13/21 17:09> MD Prep: mask <SAUL Mccann - Last Filed: 03/13/21 17:09> Local Anesthetic: lidocaine 1% <SAUL Mccann - Last Filed: 03/13/21 17:09> Amount of anesthesia used (mL): 2 <SAUL Mccann - Last Filed: 03/13/21 17:09> Ultrasound Used for Placement: Yes <SAUL Mccann - Last Filed: 03/13/21 17:09> Central Line Lumen Inserted: single and triple <SAUL Mccann - Last Filed: 03/13/21 17:09> Post Procedure: sutured in place, good blood return, all ports aspirated, flushed, capped and sterile dressing applied <SAUL Mccann - Last Filed: 03/13/21 17:09> Post Procedure X-Ray: tip of catheter in good position and no pneumothorax seen <SAUL Mccann - Last Filed: 03/13/21 17:09> Patient Tolerated Procedure: well <SAUL Mccann - Last Filed: 03/13/21 17:09> Complications: none <SAUL Mccann - Last Filed: 03/13/21 17:09> MDM - Altered Mental Status MDM Narrative Medical decision making narrative: 75-year-old male with a past medical history of MS chronically bed-bound, BPH, depression, mood disorder, DM, chronic UTIs with indwelling Nunez catheter, presenting to the ED from correction with decreased responsiveness/AMS and hypotension since this morning. On exam hypotensive, tachycardic, febrile, satting 91-92% on RA, with coarse lung sounds throughout. Concern for UTI/respiratory infectious pathology. Lower concern for ICH/CVA. Rule out metabolic abnormalities Plan: EKG, labs, UA, CXR, head CT, lactic/blood cultures, empiric IV anti biotics, IVF <SAUL Mccann - Last Filed: 03/13/21 17:09> Medical Records Attestation: I reviewed the patient's medical records. <SAUL Mccann - Last Filed: 03/13/21 17:09> Lab Data Attestation: I reviewed the patient's lab results. <SAUL Mccann - Last Filed: 03/13/21 17:09> Result diagrams: : 03/18/21 06:48 03/18/21 06:48 <SAUL Mccann - Last Filed: 03/13/21 17:09> Labs: Lab Results 03/13/21 03/13/21 03/13/21 Range/Units 09:29 09:29 09:29 WBC 29.6 H (4.8-10.8) X10*3/uL RBC 4.75 D (4.60-5.80) X10*6/uL Hgb 13.9 L D (14.0-18.0) g/dl Hct 42.1 D (42-52) % MCV 88.6 (80-98) fL MCH 29.3 (27.0-33.0) pg MCHC 33.0 (31.0-36.0) g/dl RDW 17.2 H (11.0-16.0) % Plt Count 231 (160-400) X10*3/uL MPV 9.5 (9.4-12.4) fL Immature Gran % (Auto) 2.4 H (0.0-0.4) % Neut % (Auto) 88.5 H (45-73) % Lymph % (Auto) 2.6 L (20-40) % [place] % (Auto) 5.0 (2-11) % Eos % (Auto) 1.3 (0-4) % Baso % (Auto) 0.2 (0-2) % Lymph # (Auto) 0.8 L (1.2-4.9) X10*3/uL [place] # (Auto) 1.5 H (0.1-1.2) X10*3/uL Eos # (Auto) 0.4 (0.0-0.4) X10*3/uL Baso # (Auto) 0.1 (0.0-0.2) X10*3/uL Abs Immat Gran (auto) 0.71 H (0.00-0.03) X10*3/uL Absolute Neuts (auto) 26.2 H (2.0-8.3) X10*3/uL Absolute Nucleated RBC 0.000 (0.0-0.012) X10*3/uL Nucleated RBC % (auto) 0.0 (0.0-0.2) /100WBC Smear Tech's Comments VERIFIED PT 12.8 (10.8-13.0) SEC INR 1.1 (0.9-1.1) APTT 29.5 (24.1-38.0) SEC Sodium 135 (135-145) mmol/L Potassium 5.1 (3.3-5.1) mmol/L Chloride 100 (96-108) mmol/L Carbon Dioxide 21 L (22-29) mmol/L Anion Gap 19 (12-20) BUN 42 H D (9-16) mg/dL Creatinine 2.58 H (0.5-1.4) mg/dL Estim Creat Clear Calc 28.7 Estimated GFR 25 Random Glucose 224 H D (60-115) mg/dL Lactic Acid (0.5-2.0) mmol/L Lactic Acid Fup @ 2Hr (0.5-2.0) mmol/L Calcium 8.5 D (8.4-10.2) mg/dL Magnesium 1.7 (1.6-2.6) mg/dL Total Bilirubin 1.3 H (0.0-1.0) mg/dL Direct Bilirubin 0.5 (0.0-0.5) mg/dL AST 18 D (5-37) U/L ALT 34 (0-40) U/L Alkaline Phosphatase 100 D (39-117) U/L Troponin I High Sens (<3.5-35.0) ng/L B-Natriuretic Peptide (<100) pg/mL Total Protein 5.8 L (6.5-8.0) g/dL Albumin 3.3 L (3.5-5.0) g/dL Lipase 20 (8-78) U/L Procalcitonin ng/mL Urine Color Urine Appearance Urine pH (5.0-8.0) Ur Specific [place] (1.005-1.025) Urine Protein (NEG-TRACE) MG/DL Urine Glucose (UA) (NEG) MG/DL Urine Ketones (NEG) MG/DL Urine Blood (NEG) Urine Nitrite (NEG) Ur Leukocyte Esterase (NEG) Urine RBC (0) /HPF Urine WBC (0-4) /HPF Ur Squamous Epith Cells /LPF Urine Bacteria /LPF Stool Occult Blood (NEGATIVE) Coronavirus (PCR) (Negative) Influenza Type A (PCR) (Negative) Influenza Type B (PCR) (Negative) RSV RNA Qual (PCR) (Negative) 03/13/21 03/13/21 03/13/21 Range/Units 09:29 09:30 09:30 WBC (4.8-10.8) X10*3/uL RBC (4.60-5.80) X10*6/uL Hgb (14.0-18.0) g/dl Hct (42-52) % MCV (80-98) fL MCH (27.0-33.0) pg MCHC (31.0-36.0) g/dl RDW (11.0-16.0) % Plt Count (160-400) X10*3/uL MPV (9.4-12.4) fL Immature Gran % (Auto) (0.0-0.4) % Neut % (Auto) (45-73) % Lymph % (Auto) (20-40) % [place] % (Auto) (2-11) % Eos % (Auto) (0-4) % Baso % (Auto) (0-2) % Lymph # (Auto) (1.2-4.9) X10*3/uL [place] # (Auto) (0.1-1.2) X10*3/uL Eos # (Auto) (0.0-0.4) X10*3/uL Baso # (Auto) (0.0-0.2) X10*3/uL Abs Immat Gran (auto) (0.00-0.03) X10*3/uL Absolute Neuts (auto) (2.0-8.3) X10*3/uL Absolute Nucleated RBC (0.0-0.012) X10*3/uL Nucleated RBC % (auto) (0.0-0.2) /100WBC Smear Tech's Comments PT (10.8-13.0) SEC INR (0.9-1.1) APTT (24.1-38.0) SEC Sodium (135-145) mmol/L Potassium (3.3-5.1) mmol/L Chloride (96-108) mmol/L Carbon Dioxide (22-29) mmol/L Anion Gap (12-20) BUN (9-16) mg/dL Creatinine (0.5-1.4) mg/dL Estim Creat Clear Calc Estimated GFR Random Glucose (60-115) mg/dL Lactic Acid 5.1 H* (0.5-2.0) mmol/L Lactic Acid Fup @ 2Hr (0.5-2.0) mmol/L Calcium (8.4-10.2) mg/dL Magnesium (1.6-2.6) mg/dL Total Bilirubin (0.0-1.0) mg/dL Direct Bilirubin (0.0-0.5) mg/dL AST (5-37) U/L ALT (0-40) U/L Alkaline Phosphatase (39-117) U/L Troponin I High Sens 47.9 H (<3.5-35.0) ng/L B-Natriuretic Peptide 86 (<100) pg/mL Total Protein (6.5-8.0) g/dL Albumin (3.5-5.0) g/dL Lipase (8-78) U/L Procalcitonin 87.09 ng/mL Urine Color Urine Appearance Urine pH (5.0-8.0) Ur Specific [place] (1.005-1.025) Urine Protein (NEG-TRACE) MG/DL Urine Glucose (UA) (NEG) MG/DL Urine Ketones (NEG) MG/DL Urine Blood (NEG) Urine Nitrite (NEG) Ur Leukocyte Esterase (NEG) Urine RBC (0) /HPF Urine WBC (0-4) /HPF Ur Squamous Epith Cells /LPF Urine Bacteria /LPF Stool Occult Blood (NEGATIVE) Coronavirus (PCR) (Negative) Influenza Type A (PCR) (Negative) Influenza Type B (PCR) (Negative) RSV RNA Qual (PCR) (Negative) 03/13/21 03/13/21 03/13/21 Range/Units 09:32 10:27 14:56 WBC (4.8-10.8) X10*3/uL RBC (4.60-5.80) X10*6/uL Hgb (14.0-18.0) g/dl Hct (42-52) % MCV (80-98) fL MCH (27.0-33.0) pg MCHC (31.0-36.0) g/dl RDW (11.0-16.0) % Plt Count (160-400) X10*3/uL MPV (9.4-12.4) fL Immature Gran % (Auto) (0.0-0.4) % Neut % (Auto) (45-73) % Lymph % (Auto) (20-40) % [place] % (Auto) (2-11) % Eos % (Auto) (0-4) % Baso % (Auto) (0-2) % Lymph # (Auto) (1.2-4.9) X10*3/uL [place] # (Auto) (0.1-1.2) X10*3/uL Eos # (Auto) (0.0-0.4) X10*3/uL Baso # (Auto) (0.0-0.2) X10*3/uL Abs Immat Gran (auto) (0.00-0.03) X10*3/uL Absolute Neuts (auto) (2.0-8.3) X10*3/uL Absolute Nucleated RBC (0.0-0.012) X10*3/uL Nucleated RBC % (auto) (0.0-0.2) /100WBC Smear Tech's Comments PT (10.8-13.0) SEC INR (0.9-1.1) APTT (24.1-38.0) SEC Sodium (135-145) mmol/L Potassium (3.3-5.1) mmol/L Chloride (96-108) mmol/L Carbon Dioxide (22-29) mmol/L Anion Gap (12-20) BUN (9-16) mg/dL Creatinine (0.5-1.4) mg/dL Estim Creat Clear Calc Estimated GFR Random Glucose (60-115) mg/dL Lactic Acid (0.5-2.0) mmol/L Lactic Acid Fup @ 2Hr (0.5-2.0) mmol/L Calcium (8.4-10.2) mg/dL Magnesium (1.6-2.6) mg/dL Total Bilirubin (0.0-1.0) mg/dL Direct Bilirubin (0.0-0.5) mg/dL AST (5-37) U/L ALT (0-40) U/L Alkaline Phosphatase (39-117) U/L Troponin I High Sens 40.3 H (<3.5-35.0) ng/L B-Natriuretic Peptide (<100) pg/mL Total Protein (6.5-8.0) g/dL Albumin (3.5-5.0) g/dL Lipase (8-78) U/L Procalcitonin ng/mL Urine Color YELLOW Urine Appearance HAZY Urine pH 8.5 H (5.0-8.0) Ur Specific [place] 1.015 (1.005-1.025) Urine Protein 2+ H (NEG-TRACE) MG/DL Urine Glucose (UA) NEG (NEG) MG/DL Urine Ketones NEG (NEG) MG/DL Urine Blood 3+ H (NEG) Urine Nitrite NEG (NEG) Ur Leukocyte Esterase 2+ H (NEG) Urine RBC 10-14 H (0) /HPF Urine WBC 10-14 H (0-4) /HPF Ur Squamous Epith Cells NONE /LPF Urine Bacteria 4+ /LPF Stool Occult Blood (NEGATIVE) Coronavirus (PCR) NEGATIVE (Negative) Influenza Type A (PCR) NEGATIVE (Negative) Influenza Type B (PCR) NEGATIVE (Negative) RSV RNA Qual (PCR) NEGATIVE (Negative) 03/13/21 03/13/21 Range/Units 14:56 14:56 WBC (4.8-10.8) X10*3/uL RBC (4.60-5.80) X10*6/uL Hgb (14.0-18.0) g/dl Hct (42-52) % MCV (80-98) fL MCH (27.0-33.0) pg MCHC (31.0-36.0) g/dl RDW (11.0-16.0) % Plt Count (160-400) X10*3/uL MPV (9.4-12.4) fL Immature Gran % (Auto) (0.0-0.4) % Neut % (Auto) (45-73) % Lymph % (Auto) (20-40) % [place] % (Auto) (2-11) % Eos % (Auto) (0-4) % Baso % (Auto) (0-2) % Lymph # (Auto) (1.2-4.9) X10*3/uL [place] # (Auto) (0.1-1.2) X10*3/uL Eos # (Auto) (0.0-0.4) X10*3/uL Baso # (Auto) (0.0-0.2) X10*3/uL Abs Immat Gran (auto) (0.00-0.03) X10*3/uL Absolute Neuts (auto) (2.0-8.3) X10*3/uL Absolute Nucleated RBC (0.0-0.012) X10*3/uL Nucleated RBC % (auto) (0.0-0.2) /100WBC Smear Tech's Comments PT (10.8-13.0) SEC INR (0.9-1.1) APTT (24.1-38.0) SEC Sodium (135-145) mmol/L Potassium (3.3-5.1) mmol/L Chloride (96-108) mmol/L Carbon Dioxide (22-29) mmol/L Anion Gap (12-20) BUN (9-16) mg/dL Creatinine (0.5-1.4) mg/dL Estim Creat Clear Calc Estimated GFR Random Glucose (60-115) mg/dL Lactic Acid (0.5-2.0) mmol/L Lactic Acid Fup @ 2Hr 2.4 H* (0.5-2.0) mmol/L Calcium (8.4-10.2) mg/dL Magnesium (1.6-2.6) mg/dL Total Bilirubin (0.0-1.0) mg/dL Direct Bilirubin (0.0-0.5) mg/dL AST (5-37) U/L ALT (0-40) U/L Alkaline Phosphatase (39-117) U/L Troponin I High Sens (<3.5-35.0) ng/L B-Natriuretic Peptide (<100) pg/mL Total Protein (6.5-8.0) g/dL Albumin (3.5-5.0) g/dL Lipase (8-78) U/L Procalcitonin ng/mL Urine Color Urine Appearance Urine pH (5.0-8.0) Ur Specific [place] (1.005-1.025) Urine Protein (NEG-TRACE) MG/DL Urine Glucose (UA) (NEG) MG/DL Urine Ketones (NEG) MG/DL Urine Blood (NEG) Urine Nitrite (NEG) Ur Leukocyte Esterase (NEG) Urine RBC (0) /HPF Urine WBC (0-4) /HPF Ur Squamous Epith Cells /LPF Urine Bacteria /LPF Stool Occult Blood POSITIVE (NEGATIVE) Coronavirus (PCR) (Negative) Influenza Type A (PCR) (Negative) Influenza Type B (PCR) (Negative) RSV RNA Qual (PCR) (Negative) <SAUL Mccann - Last Filed: 03/13/21 17:09> Lab Results 03/13/21 03/13/21 03/13/21 Range/Units 09:29 09:29 09:29 WBC 29.6 H (4.8-10.8) X10*3/uL RBC 4.75 D (4.60-5.80) X10*6/uL Hgb 13.9 L D (14.0-18.0) g/dl Hct 42.1 D (42-52) % MCV 88.6 (80-98) fL MCH 29.3 (27.0-33.0) pg MCHC 33.0 (31.0-36.0) g/dl RDW 17.2 H (11.0-16.0) % Plt Count 231 (160-400) X10*3/uL MPV 9.5 (9.4-12.4) fL Immature Gran % (Auto) 2.4 H (0.0-0.4) % Neut % (Auto) 88.5 H (45-73) % Lymph % (Auto) 2.6 L (20-40) % [place] % (Auto) 5.0 (2-11) % Eos % (Auto) 1.3 (0-4) % Baso % (Auto) 0.2 (0-2) % Lymph # (Auto) 0.8 L (1.2-4.9) X10*3/uL [place] # (Auto) 1.5 H (0.1-1.2) X10*3/uL Eos # (Auto) 0.4 (0.0-0.4) X10*3/uL Baso # (Auto) 0.1 (0.0-0.2) X10*3/uL Abs Immat Gran (auto) 0.71 H (0.00-0.03) X10*3/uL Absolute Neuts (auto) 26.2 H (2.0-8.3) X10*3/uL Absolute Nucleated RBC 0.000 (0.0-0.012) X10*3/uL Nucleated RBC % (auto) 0.0 (0.0-0.2) /100WBC Smear Tech's Comments VERIFIED PT 12.8 (10.8-13.0) SEC INR 1.1 (0.9-1.1) APTT 29.5 (24.1-38.0) SEC Sodium 135 (135-145) mmol/L Potassium 5.1 (3.3-5.1) mmol/L Chloride 100 (96-108) mmol/L Carbon Dioxide 21 L (22-29) mmol/L Anion Gap 19 (12-20) BUN 42 H D (9-16) mg/dL Creatinine 2.58 H (0.5-1.4) mg/dL Estim Creat Clear Calc 28.7 Estimated GFR 25 Random Glucose 224 H D (60-115) mg/dL Lactic Acid (0.5-2.0) mmol/L Lactic Acid Fup @ 2Hr (0.5-2.0) mmol/L Calcium 8.5 D (8.4-10.2) mg/dL Magnesium 1.7 (1.6-2.6) mg/dL Total Bilirubin 1.3 H (0.0-1.0) mg/dL Direct Bilirubin 0.5 (0.0-0.5) mg/dL AST 18 D (5-37) U/L ALT 34 (0-40) U/L Alkaline Phosphatase 100 D (39-117) U/L Troponin I High Sens (<3.5-35.0) ng/L B-Natriuretic Peptide (<100) pg/mL Total Protein 5.8 L (6.5-8.0) g/dL Albumin 3.3 L (3.5-5.0) g/dL Lipase 20 (8-78) U/L Procalcitonin ng/mL Urine Color Urine Appearance Urine pH (5.0-8.0) Ur Specific [place] (1.005-1.025) Urine Protein (NEG-TRACE) MG/DL Urine Glucose (UA) (NEG) MG/DL Urine Ketones (NEG) MG/DL Urine Blood (NEG) Urine Nitrite (NEG) Ur Leukocyte Esterase (NEG) Urine RBC (0) /HPF Urine WBC (0-4) /HPF Ur Squamous Epith Cells /LPF Urine Bacteria /LPF Stool Occult Blood (NEGATIVE) Coronavirus (PCR) (Negative) Influenza Type A (PCR) (Negative) Influenza Type B (PCR) (Negative) RSV RNA Qual (PCR) (Negative) 03/13/21 03/13/21 03/13/21 Range/Units 09:29 09:30 09:30 WBC (4.8-10.8) X10*3/uL RBC (4.60-5.80) X10*6/uL Hgb (14.0-18.0) g/dl Hct (42-52) % MCV (80-98) fL MCH (27.0-33.0) pg MCHC (31.0-36.0) g/dl RDW (11.0-16.0) % Plt Count (160-400) X10*3/uL MPV (9.4-12.4) fL Immature Gran % (Auto) (0.0-0.4) % Neut % (Auto) (45-73) % Lymph % (Auto) (20-40) % [place] % (Auto) (2-11) % Eos % (Auto) (0-4) % Baso % (Auto) (0-2) % Lymph # (Auto) (1.2-4.9) X10*3/uL [place] # (Auto) (0.1-1.2) X10*3/uL Eos # (Auto) (0.0-0.4) X10*3/uL Baso # (Auto) (0.0-0.2) X10*3/uL Abs Immat Gran (auto) (0.00-0.03) X10*3/uL Absolute Neuts (auto) (2.0-8.3) X10*3/uL Absolute Nucleated RBC (0.0-0.012) X10*3/uL Nucleated RBC % (auto) (0.0-0.2) /100WBC Smear Tech's Comments PT (10.8-13.0) SEC INR (0.9-1.1) APTT (24.1-38.0) SEC Sodium (135-145) mmol/L Potassium (3.3-5.1) mmol/L Chloride (96-108) mmol/L Carbon Dioxide (22-29) mmol/L Anion Gap (12-20) BUN (9-16) mg/dL Creatinine (0.5-1.4) mg/dL Estim Creat Clear Calc Estimated GFR Random Glucose (60-115) mg/dL Lactic Acid 5.1 H* (0.5-2.0) mmol/L Lactic Acid Fup @ 2Hr (0.5-2.0) mmol/L Calcium (8.4-10.2) mg/dL Magnesium (1.6-2.6) mg/dL Total Bilirubin (0.0-1.0) mg/dL Direct Bilirubin (0.0-0.5) mg/dL AST (5-37) U/L ALT (0-40) U/L Alkaline Phosphatase (39-117) U/L Troponin I High Sens 47.9 H (<3.5-35.0) ng/L B-Natriuretic Peptide 86 (<100) pg/mL Total Protein (6.5-8.0) g/dL Albumin (3.5-5.0) g/dL Lipase (8-78) U/L Procalcitonin 87.09 ng/mL Urine Color Urine Appearance Urine pH (5.0-8.0) Ur Specific [place] (1.005-1.025) Urine Protein (NEG-TRACE) MG/DL Urine Glucose (UA) (NEG) MG/DL Urine Ketones (NEG) MG/DL Urine Blood (NEG) Urine Nitrite (NEG) Ur Leukocyte Esterase (NEG) Urine RBC (0) /HPF Urine WBC (0-4) /HPF Ur Squamous Epith Cells /LPF Urine Bacteria /LPF Stool Occult Blood (NEGATIVE) Coronavirus (PCR) (Negative) Influenza Type A (PCR) (Negative) Influenza Type B (PCR) (Negative) RSV RNA Qual (PCR) (Negative) 03/13/21 03/13/21 03/13/21 Range/Units 09:32 10:27 14:56 WBC (4.8-10.8) X10*3/uL RBC (4.60-5.80) X10*6/uL Hgb (14.0-18.0) g/dl Hct (42-52) % MCV (80-98) fL MCH (27.0-33.0) pg MCHC (31.0-36.0) g/dl RDW (11.0-16.0) % Plt Count (160-400) X10*3/uL MPV (9.4-12.4) fL Immature Gran % (Auto) (0.0-0.4) % Neut % (Auto) (45-73) % Lymph % (Auto) (20-40) % [place] % (Auto) (2-11) % Eos % (Auto) (0-4) % Baso % (Auto) (0-2) % Lymph # (Auto) (1.2-4.9) X10*3/uL [place] # (Auto) (0.1-1.2) X10*3/uL Eos # (Auto) (0.0-0.4) X10*3/uL Baso # (Auto) (0.0-0.2) X10*3/uL Abs Immat Gran (auto) (0.00-0.03) X10*3/uL Absolute Neuts (auto) (2.0-8.3) X10*3/uL Absolute Nucleated RBC (0.0-0.012) X10*3/uL Nucleated RBC % (auto) (0.0-0.2) /100WBC Smear Tech's Comments PT (10.8-13.0) SEC INR (0.9-1.1) APTT (24.1-38.0) SEC Sodium (135-145) mmol/L Potassium (3.3-5.1) mmol/L Chloride (96-108) mmol/L Carbon Dioxide (22-29) mmol/L Anion Gap (12-20) BUN (9-16) mg/dL Creatinine (0.5-1.4) mg/dL Estim Creat Clear Calc Estimated GFR Random Glucose (60-115) mg/dL Lactic Acid (0.5-2.0) mmol/L Lactic Acid Fup @ 2Hr (0.5-2.0) mmol/L Calcium (8.4-10.2) mg/dL Magnesium (1.6-2.6) mg/dL Total Bilirubin (0.0-1.0) mg/dL Direct Bilirubin (0.0-0.5) mg/dL AST (5-37) U/L ALT (0-40) U/L Alkaline Phosphatase (39-117) U/L Troponin I High Sens 40.3 H (<3.5-35.0) ng/L B-Natriuretic Peptide (<100) pg/mL Total Protein (6.5-8.0) g/dL Albumin (3.5-5.0) g/dL Lipase (8-78) U/L Procalcitonin ng/mL Urine Color YELLOW Urine Appearance HAZY Urine pH 8.5 H (5.0-8.0) Ur Specific [place] 1.015 (1.005-1.025) Urine Protein 2+ H (NEG-TRACE) MG/DL Urine Glucose (UA) NEG (NEG) MG/DL Urine Ketones NEG (NEG) MG/DL Urine Blood 3+ H (NEG) Urine Nitrite NEG (NEG) Ur Leukocyte Esterase 2+ H (NEG) Urine RBC 10-14 H (0) /HPF Urine WBC 10-14 H (0-4) /HPF Ur Squamous Epith Cells NONE /LPF Urine Bacteria 4+ /LPF Stool Occult Blood (NEGATIVE) Coronavirus (PCR) NEGATIVE (Negative) Influenza Type A (PCR) NEGATIVE (Negative) Influenza Type B (PCR) NEGATIVE (Negative) RSV RNA Qual (PCR) NEGATIVE (Negative) 03/13/21 03/13/21 Range/Units 14:56 14:56 WBC (4.8-10.8) X10*3/uL RBC (4.60-5.80) X10*6/uL Hgb (14.0-18.0) g/dl Hct (42-52) % MCV (80-98) fL MCH (27.0-33.0) pg MCHC (31.0-36.0) g/dl RDW (11.0-16.0) % Plt Count (160-400) X10*3/uL MPV (9.4-12.4) fL Immature Gran % (Auto) (0.0-0.4) % Neut % (Auto) (45-73) % Lymph % (Auto) (20-40) % [place] % (Auto) (2-11) % Eos % (Auto) (0-4) % Baso % (Auto) (0-2) % Lymph # (Auto) (1.2-4.9) X10*3/uL [place] # (Auto) (0.1-1.2) X10*3/uL Eos # (Auto) (0.0-0.4) X10*3/uL Baso # (Auto) (0.0-0.2) X10*3/uL Abs Immat Gran (auto) (0.00-0.03) X10*3/uL Absolute Neuts (auto) (2.0-8.3) X10*3/uL Absolute Nucleated RBC (0.0-0.012) X10*3/uL Nucleated RBC % (auto) (0.0-0.2) /100WBC Smear Tech's Comments PT (10.8-13.0) SEC INR (0.9-1.1) APTT (24.1-38.0) SEC Sodium (135-145) mmol/L Potassium (3.3-5.1) mmol/L Chloride (96-108) mmol/L Carbon Dioxide (22-29) mmol/L Anion Gap (12-20) BUN (9-16) mg/dL Creatinine (0.5-1.4) mg/dL Estim Creat Clear Calc Estimated GFR Random Glucose (60-115) mg/dL Lactic Acid (0.5-2.0) mmol/L Lactic Acid Fup @ 2Hr 2.4 H* (0.5-2.0) mmol/L Calcium (8.4-10.2) mg/dL Magnesium (1.6-2.6) mg/dL Total Bilirubin (0.0-1.0) mg/dL Direct Bilirubin (0.0-0.5) mg/dL AST (5-37) U/L ALT (0-40) U/L Alkaline Phosphatase (39-117) U/L Troponin I High Sens (<3.5-35.0) ng/L B-Natriuretic Peptide (<100) pg/mL Total Protein (6.5-8.0) g/dL Albumin (3.5-5.0) g/dL Lipase (8-78) U/L Procalcitonin ng/mL Urine Color Urine Appearance Urine pH (5.0-8.0) Ur Specific [place] (1.005-1.025) Urine Protein (NEG-TRACE) MG/DL Urine Glucose (UA) (NEG) MG/DL Urine Ketones (NEG) MG/DL Urine Blood (NEG) Urine Nitrite (NEG) Ur Leukocyte Esterase (NEG) Urine RBC (0) /HPF Urine WBC (0-4) /HPF Ur Squamous Epith Cells /LPF Urine Bacteria /LPF Stool Occult Blood POSITIVE (NEGATIVE) Coronavirus (PCR) (Negative) Influenza Type A (PCR) (Negative) Influenza Type B (PCR) (Negative) RSV RNA Qual (PCR) (Negative) <Fili Aviles MD - Last Filed: 03/20/21 12:32> Critical Care Time Critical Care Time Critical Care Time: Yes <SAUL Mccann - Last Filed: 03/13/21 17:09> Total Critical Care Time: 60 <SAUL Mccann - Last Filed: 03/13/21 17:09> Attestation: Greater than 60 minutes of critical care time performed stabilizing patient, inserting central line, reviewing labs/prior notes, speaking with family, and re-evaluating patient. <SAUL Mccann - Last Filed: 03/13/21 17:09> Discharge Plan Discharge Clinical Impression: Acute UTI Sepsis Qualifiers: Sepsis type: sepsis due to unspecified organism <SAUL Mccann - Last Filed: 03/13/21 17:09> Patient Disposition: Admitted As Inpatient <SAUL Mccann - Last Filed: 03/13/21 17:09> Interventions: Admission Worksheet (ED) Last Done: 03/13/21 18:50 <SAUL Mccann - Last Filed: 03/13/21 17:09> Discharge Date/Time: 03/13/21 18:51 <SAUL Mccann - Last Filed: 03/13/21 17:09>
--- NOTE | 2021-03-13 09:30 | PC.NURSE ---
Pt presents to ED from custodial, AMS. Pt not responsive to verbal stimuli. Per facility, pt normally alert, responsive. Blood pressure found by EMS to be 80's over 50's. Lung sounds diminished bilaterally. IV access obtained, 20g right AC and 20g left forearm. Provider Keely correa. Will continue to monitor.
[2021-03-13 09:47] LABS: Basophils Absolute Auto 0.1 X10*3/uL (0.0-0.2); Basophils Percent Auto 0.2 % (0-2); Eosinophils Absolute Auto 0.4 X10*3/uL (0.0-0.4); Eosinophils Percent Auto 1.3 % (0-4); Hematocrit 42.1 % (42-52); Hemoglobin 13.9 g/dl (14.0-18.0); Imm Gran Abs Auto 0.71 X10*3/uL (0.00-0.03); Imm Gran Pct Auto 2.4 % (0.0-0.4); Lymphocytes Absolute Auto 0.8 X10*3/uL (1.2-4.9); Lymphocytes Percent Auto 2.6 % (20-40); MANUAL DIFF FLAG SCAN; Mean Corpuscular Hemoglobin 29.3 pg (27.0-33.0); Mean Corpuscular Volume 88.6 fL (80-98); Mean Platelet Volume 9.5 fL (9.4-12.4); Monocytes Absolute Auto 1.5 X10*3/uL (0.1-1.2); Neutrophils Absolute Auto 26.2 X10*3/uL (2.0-8.3); Neutrophils Percent Auto 88.5 % (45-73); Platelet Count 231 X10*3/uL (160-400); Red Blood Count 4.75 X10*6/uL (4.60-5.80); Red Cell Distribution Width 17.2 % (11.0-16.0); SCAN SMEAR FLAG 1; White Blood Count 29.6 X10*3/uL (4.8-10.8)
[2021-03-13 09:52] LABS: INTERNATIONAL NORM RATIO 1.1 (0.9-1.1); Prothrombin Time 12.8 SEC (10.8-13.0)
[2021-03-13] MEDS: 0.9 % Sodium Chloride 1,000 ML 999 ML IVCONT ×3 (09:53→11:18)
[2021-03-13 09:55] LABS: Partial Thromboplastin Time 29.5 SEC (24.1-38.0)
[2021-03-13] MEDS: Piperacillin Sodium/Tazobactam 3.375 GM in 0.9 % Sodium Chloride 50 ML IV (10:01)
[2021-03-13 10:06] LABS: SLIDE REVIEW VERIFIED
[2021-03-13 10:13] LABS: Lactic Acid 5.1 mmol/L (0.5-2.0)
[2021-03-13 10:16] LABS: Alanine Aminotransferase 34 U/L (0-40); Albumin Level 3.3 g/dL (3.5-5.0); Alkaline Phosphatase 100 U/L (39-117); Anion Gap 19 (12-20); Aspartate Amino Transferase 18 U/L (5-37); Bilirubin Direct 0.5 mg/dL (0.0-0.5); Bilirubin Total 1.3 mg/dL (0.0-1.0); Blood Urea Nitrogen 42 mg/dL (9-16); Calcium 8.5 mg/dL (8.4-10.2); Carbon Dioxide 21 mmol/L (22-29); Chloride 100 mmol/L (96-108); Creatinine Clr Calc Pharmacy 28.7; Estimated Glomerular Filt Rate 25; Glucose Random 224 mg/dL (60-115); Lipase 20 U/L (8-78); Magnesium 1.7 mg/dL (1.6-2.6); Potassium 5.1 mmol/L (3.3-5.1); Sodium 135 mmol/L (135-145); Total Protein 5.8 g/dL (6.5-8.0)
[2021-03-13 10:24] LABS: B Type Natriuretic Peptide 86 pg/mL (<100); Troponin-I High Sensitivity 47.9 ng/L (<3.5-35.0)
[2021-03-13 10:30] LABS: Influenza A PCR NEGATIVE (Negative); Influenza B PCR NEGATIVE (Negative); Resp Syncy Virus RNA Qual PCR NEGATIVE (Negative); SARS COV2 PCR INHOUSE NEGATIVE (Negative)
[2021-03-13 10:33] LABS: Glucose Urine UA NEG (NEG); Leukocyte Esterase Urine 2+ (NEG); Nitrite Urine NEG (NEG); PH 8.5 (5.0-8.0); Specific Gravity - Urine 1.015 (1.005-1.025); UACC Culture Trigger YES; Urine Blood 3+ (NEG); Urine Ketones NEG (NEG)
[2021-03-13 10:36] LABS: Procalcitonin 87.09 ng/mL
[2021-03-13 10:38] LABS: Appearance Urine HAZY; Color Urine YELLOW; Urine Protein 2+ MG/DL (NEG-TRACE)
[2021-03-13 10:46] LABS: Bacteria Urine 4+ /LPF
[2021-03-13 11:41] LABS: Reflex Lactate? Lactic Acid Added
--- NOTE | 2021-03-13 12:45 | PC.NURSE ---
Pt's family at bedside with MD Aviles and SAUL Riggs to discuss treatment of patient.
--- NOTE | 2021-03-13 13:57 | PC.NURSE ---
MD Aviles and provider Keely at bedside for central line placement.
[2021-03-13 15:09] LABS: OBS1 POSITIVE (NEGATIVE)
[2021-03-13 15:10] LABS: OBS Int Ctl Valid YES
--- NOTE | 2021-03-13 15:27 | PM.CCN ---
Critical Care Event Note Summary Date of Service: 03/13/21 Code activated: No Narrative: Called to see Mr. Ardon in the ED who presented with septic shock. The patient is a 75-year-old male with a past medical history of MS, chronically bed-bound, BPH, depression, mood disorder, DM. He has h/o chronic UTIs with indwelling Nunez catheter, with prior VRE and ESBL organisms. Also has mult medications allergies, including abx allergies. The patient has DNR/DNI status, and a MOLST form reportedly specifying no transfer to hospital. Nevertheless, was BIBA this morning from his intermediate with decreased responsiveness/AMS and hypotension since this morning. Per EMS, at baseline the patient is awake/alert, joking around with intermediate staff. In ED, the patient was unresponsive, but breathing easy w clear airway. Initial BP was 80/51 and declined from there into the 50?s, despite fluid resusc. ED staff spoke w family, they allowed central line and pressors. I saw the patient at about 3pm. BP was 70?s and the patient was still unresponsive, but breathing easy with clear airway, overall looked better than I expected. Labs show WBC 29.6, Hb 13.9 (prob hemoconcentrated), BUN/creat 42/2.5 (baseline about 1.0), lactate 5.1. U/A shows 10-14 WBC. COVID neg. I spoke w family at some length, they told me that they?ve seen this pattern many times, he really ?crashes? when he gets these UTIs. IMPRESSION: 1. Underlying MS and severe chronic disability. 2. Chronic indwelling Nunez catheter 3. Septic shock, likely urosepsis. Central line has been placed, starting pressors. 4. EDWARD. 2? septic shock and hypovolemia. Being resuscitated. I spoke with SAUL Espino in the ED at length and then discussed abx mngmnt with Madina Vargas from pharmacy, who d/w Dr. Ramsey. We?ll put him on cefepime and Linezolid for now, pending cultures. Admit to ICU for further mx. Continue DNR/DNI status. Critical care time (including extended chart rev, d/w family and staff as noted): 60+ min. Critical Care Time (minutes): 60
[2021-03-13 15:30] LABS: ~Lactic Acid-LAB USE ONLY 2.4 mmol/L (0.5-2.0)
[2021-03-13 15:39] LABS: Troponin-I High Sensitivity 40.3 ng/L (<3.5-35.0)
[2021-03-13 16:59] LABS: Reflex Lactate? 2 Y
--- NOTE | 2021-03-13 17:05 | PC.NURSE ---
On March 13, for the fluids ordered in the ED, the start times documented in the MAR are correct, however the end times documented in the MAR are incorrect.
[2021-03-13] MEDS: nitrofurantoin macrocrystaL 50 MG CAPSULE PO (17:15)
[2021-03-13] MEDS: cefEPime HCl 2 GM in 0.9 % Sodium Chloride 50 ML IV (17:16)
[2021-03-13] MEDS: Linezolid/D5W 600 MG/300 ML PIGGYBACK 300 MG IV (17:16)
[2021-03-13 20:03] LABS: ~Lactic Acid-LAB USE ONLY 1.8 mmol/L (0.5-2.0)
--- NOTE | 2021-03-13 20:47 | P.HPCC_ITS ---
History of Present Illness Date of Service: 03/13/21 Chief Complaint: Sepsis/EDWARD/UTI HPI: Patient with underlying history of MS was nonmobile and is a resident of a snf facility for the past 2 years due to debility and inability to ambulate, history of multiple allergies with most recent reaction to ertapenem (blisters), chronic indwelling catheter and UTIs, prior sepsis, diabetes among others presented to the emergency room this evening with reported complaints of altered mental status and decreased responsiveness. According to report, this is how the patient normally is when he has an infection. His vital signs were abnormal with low blood pressure but otherwise afebrile. In the emergency room, the workup revealed white count of 29.6, H&H of 13.9 and 42 respectively, platelets 231, left shift with absolute neutrophils of 26. Chemistry reveals no electrolyte abnormality, BUN of 42 and creatinine 2.58 when his baseline is ( 1.01), lactic acid 5.1 and subsequent of 2.4 by 1.8. Troponin 40. Urinalysis consistent with a UTI and hematuria, 2+ leukocyte esterase, 10-14 with blood cells per high-power field and 4+ bacteria. Stool occult blood negative and influenza a, coronavirus negative. Patient was treated with cefepime and Macrobid, was given IV fluids and started on Levophed. Head CT revealed no abnormalities ROS: Unable to obtain due to patient's mental status Past Medical History: BPH Insomnia Hyperlipidemia Diabetes Constipation Urinary retention with chronic indwelling Nunez catheter Anxiety Peripheral neuropathy Acute kidney injury Depression Mood disorder Past Surgical History: Unknown Family history: Noncontributory Social History: Lives at a [facility] for the past 2 and half years due to chronic weakness in the setting of MS, non ambulatory. Remote history of tobacco and alcohol consumption. No drugs. CODE STATUS: DNR DNI Allergies: Multiple including benzodiazepine, Cymbalta, Zetia, niacin, oxycodone, pravastatin, ampyra (reactions to these drugs are unknown) Ativan (sedation), doxycycline (esophageal irritation), methylprednisolone (heartburn), ertapenem (blisters) Home Medications: Please see med rec Dedicated sepsis exam done at 7:30 p.m. VS: 131/64, 79, 11, 99% on 1.5 L nasal cannula, 96.8. General: Sleeping, unable to answer questions. Skin: Skin of the bilateral lower extremities has sloughing and residual blistering formations along with tenia pedis on the feet. Ecchymotic spots noted. No pressure ulcers. HEENT: Head is normocephalic, atraumatic, pupils equal and reactive to light. Buccal mucosa is dry. Neck is supple without lymphadenopathy. Cardiac: Clear S1-S2, no murmurs rubs or gallops. Pulmonary: Clear to auscultation, no wheezes, rales or rhonchi. Abdomen: Protuberant, positive bowel sounds in all 4 quadrants. Soft, nontender, no rebound or guarding. Musculoskeletal: There is no cogwheeling or crepitus on passive range of motion of the upper and lower extremities at the major joints. There is no leg edema and there is no asymmetry. Neurologic: As above, otherwise unable to assess. Vascular: 2+ pulses upper and lower extremities distally. Less than 2nd capillary refill bilaterally of the fingers and toes SIGNIFICANT LABORATORY DATA: As above REVIEW OF IMAGES: Chest x-ray IMPRESSION: No acute intracranial process seen. Mild age-related slight volume loss with chronic small vessel microangiopathy in both cerebral hemispheres. Hypoexpanded lungs with no acute intrathoracic process seen. Head CT IMPRESSION: No acute intracranial process seen. Mild age-related slight volume loss with chronic small vessel microangiopathy in both cerebral hemispheres. Hypoexpanded lungs with no acute intrathoracic process seen. Repeat chest x-ray post central line IMPRESSION: Satisfactory position of right jugular line and nasogastric tube. No pneumothorax. Question atelectasis or small effusion at the left lung base. EKG REVIEW: Sinus tachycardia ventricular rate 128 beats per minute. No ST elevation although nonspecific T-wave abnormalities noted. ASSESSMENT AND PLAN: 1. Acute sepsis 2. Urinary tract infection 3. Metabolic encephalopathy 4. Clinical dehydration 5. Lactic acidosis in the setting of sepsis (resolved) 6. Reactive troponin abnormality 7. Hypoalbuminemia 8. Acute kidney injury due to hypoperfusion and volume depletion 9. Positive stool occult blood in need of further GI evaluation in the near future, without anemia Admit to ICU, I's and O's, given multiple allergies, he will receive cefepime and Zyvox, gentle IV hydration for his a risk of fluid overload, will continue with vasopressors and if necessary give him albumin. Will repeat labs in the m orning. He will need further GI evaluation for the positive stool occult blood in the meantime will place him on a PPI. Will make sure the Nunez catheter has been changed. Lengthy discussion with family members corroborates the patient's code status of DNR DNI. GI PROPHYLAXIS: IV ppi DVT PROPHYLAXIS: Pneumatic stockings due to risk of bleeding Repeat focused sepsis exam done at 1:30 am on 03/14/2021 VS: 126/64, 84, 10, 98% General: Sleeping, now able to open his eyes upon request. Skin: Skin of the bilateral lower extremities has sloughing and residual blistering formations along with tenia pedis on the feet. Ecchymotic spots noted. No pressure ulcers. Cardiac: Clear S1-S2, no murmurs rubs or gallops. Pulmonary: Clear to auscultation, no wheezes, rales or rhonchi. at the major joints. There is no leg edema and there is no asymmetry. Neurologic: As above, otherwise unable to assess. Vascular: 2+ pulses upper and lower extremities distally. Less than 2nd capillary refill bilaterally of the fingers and toes Case was discussed in detail with Dr. Reeves. He is aware of all the above as well as the plan of care for this patient. Total critical care time with this patient was 120 minutes. [facility] Past Medical History Medical History BPH (benign prostatic hyperplasia) Chronic pain syndrome Chronic renal failure Dehydration Depression Diabetes mellitus type 2 in obese Multiple sclerosis Urinary tract infection Social History Social History Household Members: Other Household Members Other:: lives in [facility] Housing: [facility] Housing Other:: [facility] Smoking Status: Never smoker Use of substances other than those prescribed or required for medical reasons: No Currently Displaying Signs/Symptoms of Drug Intoxication Withdrawal: No Spiritual Healthcare Practices: no Advance Directives: Yes Advance Directives on File: Yes Advance Directives Date on File: 10/13/20 Do you have thoughts of harming others: None Do you have a plan to hurt others: No Plan Recently lost weight without trying: No service: Yes Current occupational status: retired Meds Allergies Allergy/AdvReac Type Severity Reaction Status Date / Time Benzodiazepines Allergy Unknown UNKNOWN Verified 10/09/20 22:49 [BENZODIAZEPINES] dalfampridine [From AMPYRA] Allergy Unknown UNKNOWN Verified 10/09/20 22:49 duloxetine [From CYMBALTA] Allergy Unknown UNKNOWN Verified 10/09/20 22:49 ezetimibe [From ZETIA] Allergy Unknown UNKNOWN Verified 10/09/20 22:49 niacin [NIACIN] Allergy Unknown UNKNOWN Verified 10/09/20 22:49 oxycodone [OXYCODONE] Allergy Unknown UNKNOWN Verified 10/09/20 22:49 pravastatin [PRAVASTATIN] Allergy Unknown UNKNOWN Verified 10/09/20 22:49 Yzumfmz-Gpv-Xsr Reductase Allergy Unknown UNKNOWN Verified 10/09/20 22:49 Inhibitor [[id number] REDUCTASE INHIBITOR] lorazepam [From ATIVAN] AdvReac Severe EXCESSIVE Verified 10/09/20 22:49 SEDATION doxycycline [DOXYCYCLINE] AdvReac Mild esophogeal Verified 10/09/20 22:49 iritation methylprednisolone AdvReac Mild heartburn Verified 10/09/20 22:49 [From SOLU-MEDROL] ertapenem [From INVANZ] AdvReac Unknown possible Verified 10/09/20 22:49 cause of bullous pemphigoid Active Medications: Current Medications Generic Name Dose Route Start Last Admin Trade Name Freq PRN Reason Stop Dose Admin Norepinephrine Bitartrate 8 mg in 250 mls @ 0 mls/hr 03/13/21 15:00 03/13/21 16:17 Levophed IVCONT 0.11 mcg/kg/min .Q0M WICHO 18.56 mls/hr Titration Protocol Per Protocol Linezolid 600 mg in 300 mls @ 300 mls/hr 03/13/21 17:00 03/13/21 18:58 Zyvox/D5w IV Infused Q12H WICHO Infusion Cefepime HCl 2 gm/ Sodium 50 mls @ 100 mls/hr 03/14/21 05:00 Chloride IV Q12H WICHO Nitrofurantoin Macrocrystals 50 mg 03/13/21 16:00 03/13/21 17:15 Nitrofurantoin Macrocrystal 50 Mg Capsule PO 50 mg Q6H WICHO Administration Pharmacy Consult 1 each 03/13/21 08:52 Consult Rx Perform Med Rec MISCELLANE ONCE PRN Consult order Home Medications Medication Instructions Recorded Confirmed Last Taken Type bisacodyl 5 mg PO BEDTIME 10/09/20 03/13/21 Unknown History bisacodyl 10 mg GA DAILY 10/09/20 03/13/21 Unknown History clobetasol 1 applic TOPICAL BID 10/09/20 03/13/21 Unknown History gabapentin 300 mg PO BID@0630,1200 10/09/20 03/13/21 Unknown History lactulose 30 ml PO DAILY 10/09/20 03/13/21 Unknown History metformin 500 mg PO BID 10/09/20 03/13/21 Unknown History tamsulosin 0.4 mg PO DAILY 10/09/20 03/13/21 Unknown History tramadol 50 mg PO BID PRN 10/09/20 03/13/21 Unknown History trazodone 25 mg PO BEDTIME 10/09/20 03/13/21 Unknown History acetaminophen 650 mg PO Q4H PRN 03/13/21 03/13/21 Unknown History amlodipine 7.5 mg PO DAILY 03/13/21 03/13/21 Unknown History aspirin 81 mg PO DAILY 03/13/21 03/13/21 Unknown History doxycycline hyclate 100 mg PO BID 03/13/21 03/13/21 Unknown History gabapentin 600 mg PO BEDTIME 03/13/21 03/13/21 Unknown History insulin lispro [Humalog U-100 sliding scale dose QIDACHS 03/13/21 Unknown History Insulin] melatonin 3 mg PO BEDTIME 03/13/21 03/13/21 Unknown History niacinamide 500 mg PO TID 03/13/21 03/13/21 Unknown History prednisone 10 mg PO DAILY 03/13/21 03/13/21 Unknown History rosuvastatin 10 mg PO DAILY 03/13/21 03/13/21 Unknown History sennosides [senna] 17.2 mg PO BID 03/13/21 03/13/21 Unknown History Physical Exam Vital Signs: Vital Signs: Last Vital Signs Temp 96.4 F L 03/13/21 19:55 Pulse 79 03/13/21 19:55 Resp 11 L 03/13/21 19:55 BP 131/64 03/13/21 19:55 Pulse Ox 95 03/13/21 19:55 Body Mass Index 28.4 Results Labs CBC and Chem 7: 03/14/21 05:30 03/14/21 05:30 Labs: Laboratory Results - last 24 hr 03/13/21 03/13/21 03/13/21 09:29 09:29 09:29 MCV 88.6 MCH 29.3 MCHC 33.0 RDW 17.2 H Plt Count 231 MPV 9.5 Immature Gran % (Auto) 2.4 H Neut % (Auto) 88.5 H Lymph % (Auto) 2.6 L [place] % (Auto) 5.0 Eos % (Auto) 1.3 Baso % (Auto) 0.2 Lymph # (Auto) 0.8 L [place] # (Auto) 1.5 H Eos # (Auto) 0.4 Baso # (Auto) 0.1 Abs Immat Gran (auto) 0.71 H Absolute Neuts (auto) 26.2 H Absolute Nucleated RBC 0.000 Nucleated RBC % (auto) 0.0 Smear Tech's Comments VERIFIED PT 12.8 INR 1.1 APTT 29.5 Anion Gap 19 Estim Creat Clear Calc 28.7 Estimated GFR 25 Random Glucose 224 H D Lactic Acid Lactic Acid Fup @ 2Hr Lactic Acid Fup @ 4Hr Calcium 8.5 D Magnesium 1.7 Total Bilirubin 1.3 H Direct Bilirubin 0.5 AST 18 D ALT 34 Alkaline Phosphatase 100 D Troponin I High Sens B-Natriuretic Peptide Total Protein 5.8 L Albumin 3.3 L Lipase 20 Procalcitonin Urine Color Urine Appearance Urine pH Ur Specific [place] Urine Protein Urine Glucose (UA) Urine Ketones Urine Blood Urine Nitrite Ur Leukocyte Esterase Urine RBC Urine WBC Ur Squamous Epith Cells Urine Bacteria Stool Occult Blood Coronavirus (PCR) Influenza Type A (PCR) Influenza Type B (PCR) RSV RNA Qual (PCR) 03/13/21 03/13/21 03/13/21 09:29 09:30 09:30 MCV MCH MCHC RDW Plt Count MPV Immature Gran % (Auto) Neut % (Auto) Lymph % (Auto) [place] % (Auto) Eos % (Auto) Baso % (Auto) Lymph # (Auto) [place] # (Auto) Eos # (Auto) Baso # (Auto) Abs Immat Gran (auto) Absolute Neuts (auto) Absolute Nucleated RBC Nucleated RBC % (auto) Smear Tech's Comments PT INR APTT Anion Gap Estim Creat Clear Calc Estimated GFR Random Glucose Lactic Acid 5.1 H* Lactic Acid Fup @ 2Hr Lactic Acid Fup @ 4Hr Calcium Magnesium Total Bilirubin Direct Bilirubin AST ALT Alkaline Phosphatase Troponin I High Sens 47.9 H B-Natriuretic Peptide 86 Total Protein Albumin Lipase Procalcitonin 87.09 Urine Color Urine Appearance Urine pH Ur Specific [place] Urine Protein Urine Glucose (UA) Urine Ketones Urine Blood Urine Nitrite Ur Leukocyte Esterase Urine RBC Urine WBC Ur Squamous Epith Cells Urine Bacteria Stool Occult Blood Coronavirus (PCR) Influenza Type A (PCR) Influenza Type B (PCR) RSV RNA Qual (PCR) 03/13/21 03/13/21 03/13/21 09:32 10:27 14:56 MCV MCH MCHC RDW Plt Count MPV Immature Gran % (Auto) Neut % (Auto) Lymph % (Auto) [place] % (Auto) Eos % (Auto) Baso % (Auto) Lymph # (Auto) [place] # (Auto) Eos # (Auto) Baso # (Auto) Abs Immat Gran (auto) Absolute Neuts (auto) Absolute Nucleated RBC Nucleated RBC % (auto) Smear Tech's Comments PT INR APTT Anion Gap Estim Creat Clear Calc Estimated GFR Random Glucose Lactic Acid Lactic Acid Fup @ 2Hr Lactic Acid Fup @ 4Hr Calcium Magnesium Total Bilirubin Direct Bilirubin AST ALT Alkaline Phosphatase Troponin I High Sens 40.3 H B-Natriuretic Peptide Total Protein Albumin Lipase Procalcitonin Urine Color YELLOW Urine Appearance HAZY Urine pH 8.5 H Ur Specific [place] 1.015 Urine Protein 2+ H Urine Glucose (UA) NEG Urine Ketones NEG Urine Blood 3+ H Urine Nitrite NEG Ur Leukocyte Esterase 2+ H Urine RBC 10-14 H Urine WBC 10-14 H Ur Squamous Epith Cells NONE Urine Bacteria 4+ Stool Occult Blood Coronavirus (PCR) NEGATIVE Influenza Type A (PCR) NEGATIVE Influenza Type B (PCR) NEGATIVE RSV RNA Qual (PCR) NEGATIVE 03/13/21 03/13/21 03/13/21 14:56 14:56 19:33 MCV MCH MCHC RDW Plt Count MPV Immature Gran % (Auto) Neut % (Auto) Lymph % (Auto) [place] % (Auto) Eos % (Auto) Baso % (Auto) Lymph # (Auto) [place] # (Auto) Eos # (Auto) Baso # (Auto) Abs Immat Gran (auto) Absolute Neuts (auto) Absolute Nucleated RBC Nucleated RBC % (auto) Smear Tech's Comments PT INR APTT Anion Gap Estim Creat Clear Calc Estimated GFR Random Glucose Lactic Acid Lactic Acid Fup @ 2Hr 2.4 H* Lactic Acid Fup @ 4Hr 1.8 Calcium Magnesium Total Bilirubin Direct Bilirubin AST ALT Alkaline Phosphatase Troponin I High Sens B-Natriuretic Peptide Total Protein Albumin Lipase Procalcitonin Urine Color Urine Appearance Urine pH Ur Specific [place] Urine Protein Urine Glucose (UA) Urine Ketones Urine Blood Urine Nitrite Ur Leukocyte Esterase Urine RBC Urine WBC Ur Squamous Epith Cells Urine Bacteria Stool Occult Blood POSITIVE Coronavirus (PCR) Influenza Type A (PCR) Influenza Type B (PCR) RSV RNA Qual (PCR) Imaging Radiologist's Impressions: Impressions Chest X-Ray 03/13/21 08:52 IMPRESSION: No acute intracranial process seen. Mild age-related slight volume loss with chronic small vessel microangiopathy in both cerebral hemispheres. Hypoexpanded lungs with no acute intrathoracic process seen. Head CT 03/13/21 08:52 IMPRESSION: No acute intracranial process seen. Mild age-related slight volume loss with chronic small vessel microangiopathy in both cerebral hemispheres. Hypoexpanded lungs with no acute intrathoracic process seen. Chest X-Ray 03/13/21 14:27
[2021-03-14] VITALS (27 sets, daily range): BP systolic 103–169; BP diastolic 51–102; PULSE 83–125; RESP 9–24; TEMP 35.9–37.5; O2SAT 93–100; BMI 23.2
[2021-03-14] MEDS: Linezolid/D5W 600 MG/300 ML PIGGYBACK 300 MG IV (05:32)
[2021-03-14] MEDS: Pantoprazole Sodium 40 MG/10 ML VIAL IVPUSH ×2 (05:37→17:55)
[2021-03-14] MEDS: cefEPime HCl 2 GM in 0.9 % Sodium Chloride 50 ML IV ×2 (05:39→17:55)
[2021-03-14 05:57] LABS: Hematocrit 36.7 % (42-52); Hemoglobin 11.9 g/dl (14.0-18.0); Mean Corpuscular HGB Conc 32.4 g/dl (31.0-36.0); Mean Corpuscular Volume 89.5 fL (80-98); Mean Platelet Volume 9.2 fL (9.4-12.4); Platelet Count 167 X10*3/uL (160-400); Red Cell Distribution Width 17.5 % (11.0-16.0)
[2021-03-14 06:06] LABS: White Blood Count 30.7 X10*3/uL (4.8-10.8)
[2021-03-14 06:45] LABS: Alanine Aminotransferase 26 U/L (0-40); Alkaline Phosphatase 84 U/L (39-117); Anion Gap 12 (12-20); Aspartate Amino Transferase 18 U/L (5-37); Bilirubin Total 1.1 mg/dL (0.0-1.0); Blood Urea Nitrogen 32 mg/dL (9-16); Calcium 8.7 mg/dL (8.4-10.2); Carbon Dioxide 22 mmol/L (22-29); Chloride 111 mmol/L (96-108); Creatinine Clr Calc Pharmacy 51.5; Estimated Glomerular Filt Rate 48; Glucose Random 158 mg/dL (60-115); Phosphorus 4.1 mg/dL (2.7-4.5); Potassium 4.2 mmol/L (3.3-5.1); Sodium 141 mmol/L (135-145); Total Protein 5.3 g/dL (6.5-8.0)
[2021-03-14 06:54] LABS: C Reactive Protein 33.49 mg/dL (< or = 0.50)
[2021-03-14] MEDS: Metoprolol Tartrate 5 MG/5 ML VIAL 2.5 MG IVPUSH ×2 (10:18→20:52)
--- NOTE | 2021-03-14 10:26 | MHC.CDI.CONC ---
CDI Concurrent Query Service Date: 03/17/21 Documentation Clarification: YES, THIS IS UTI due to indwelling Nunez catheter. Please clarify if you are treating a probable/suspected/likely or confirmed: UTI due to indwelling Nunez catheter UTI, unrelated to indwelling Nunez catheter Provider Response: UTI PLEASE DO NOT DELETE/MODIFY EXISTING CONTENT Additional information is needed in order to code to the highest accuracy and appropriate Severity of Illness (SOI). Please clarify the information noted below in your progress notes and discharge summary. Risk Factors/Clinical Indicators/Treatments 75 year old male admitted with Acute Sepsis, UTI, Metabolic Encephalopathy, Dehydration, EDWARD PMH: Chronic UTIs with Nunez catheter Urine culture pending CDS: Mary Hernandez RN Contact Number: [id number] Please Review the information above and exercise your independent professional judgment in responding to the query. If you concur, pleas document in the PROGRESS NOTES and DISCHARGE SUMMARY. If you do not agree with the query, please document in the query above. THIS QUERY IS PART OF THE PERMANENT MEDICAL RECORD
--- NOTE | 2021-03-14 11:20 | MHC.CM.PN ---
Pt admitted to ICU with septic shock: Confused: unable to give meaningful information for CM assessment: Information obtained from ICU staff, review of EMR. Pt is a L[facility] resident of [facility] and is expected to return once medically stable. MOLST and HCP on file from previous visit. CM to follow for finalization of d/c plans.
--- NOTE | 2021-03-14 13:14 | MHC.CLN ---
RE: CONSULT PT WITH INCREASED NUTRITION RISK R/T PRESSURE INJURIES PT IS CURRENTLY NPO WHEN DIET TO ADVANCE, RECOMMEND ADDING ENSURE TID AND JHON TO PROMOTE WOUND HEALING SUPPLEMENTS TO PROVIDE 1210KCALS, 65G PROTEIN MONITOR BS CLOSELY SEE ALSO CLINICAL NUTRITION ASSESSMENT
--- NOTE | 2021-03-14 16:13 | W.PM.IDCN ---
History of Present Illness Data of Consult Service Date: 03/14/21 Requesting physician: Adi Reeves Primary Care Provider: MD GUADALUPE Reyes Reason for consult: sepsis He presents to hospital with shaking chills and fever He has had symptoms less than a day He has diminished mental status and cant give history Review of Systems Review of Systems: Yes Unobtainable due to mental condition PMFSH Past Medical History Medical History BPH (benign prostatic hyperplasia) Chronic pain syndrome Chronic renal failure Dehydration Depression Diabetes mellitus type 2 in obese Multiple sclerosis Urinary tract infection Family History Family history: reviewed and not pertinent Social History Social History Household Members: Other Household Members Other:: lives in [facility] Housing: [facility] Housing Other:: [facility] Smoking Status: Never smoker Use of substances other than those prescribed or required for medical reasons: No Currently Displaying Signs/Symptoms of Drug Intoxication Withdrawal: No Spiritual Healthcare Practices: no Advance Directives: Yes Advance Directives on File: Yes Advance Directives Date on File: 10/13/20 Recently lost weight without trying: No service: Yes Current occupational status: retired Meds Allergies Allergy/AdvReac Type Severity Reaction Status Date / Time Benzodiazepines Allergy Unknown UNKNOWN Verified 10/09/20 22:49 [BENZODIAZEPINES] dalfampridine [From AMPYRA] Allergy Unknown UNKNOWN Verified 10/09/20 22:49 duloxetine [From CYMBALTA] Allergy Unknown UNKNOWN Verified 10/09/20 22:49 ezetimibe [From ZETIA] Allergy Unknown UNKNOWN Verified 10/09/20 22:49 niacin [NIACIN] Allergy Unknown UNKNOWN Verified 10/09/20 22:49 oxycodone [OXYCODONE] Allergy Unknown UNKNOWN Verified 10/09/20 22:49 pravastatin [PRAVASTATIN] Allergy Unknown UNKNOWN Verified 10/09/20 22:49 Zpfmnro-Qcv-Khf Reductase Allergy Unknown UNKNOWN Verified 10/09/20 22:49 Inhibitor [[id number] REDUCTASE INHIBITOR] lorazepam [From ATIVAN] AdvReac Severe EXCESSIVE Verified 10/09/20 22:49 SEDATION doxycycline [DOXYCYCLINE] AdvReac Mild esophogeal Verified 10/09/20 22:49 iritation methylprednisolone AdvReac Mild heartburn Verified 10/09/20 22:49 [From SOLU-MEDROL] ertapenem [From INVANZ] AdvReac Unknown possible Verified 10/09/20 22:49 cause of bullous pemphigoid Active Medications: Current Medications Generic Name Dose Route Start Last Admin Trade Name Freq PRN Reason Stop Dose Admin Norepinephrine Bitartrate 8 mg in 250 mls @ 0 mls/hr 03/13/21 15:00 03/13/21 23:33 Levophed IVCONT 0 mcg/kg/min .Q0M WICHO 0 mls/hr Titration Protocol Per Protocol Cefepime HCl 2 gm/ Sodium 50 mls @ 100 mls/hr 03/14/21 05:00 03/14/21 06:35 Chloride IV Infused Q12H [facility] Infusion Pantoprazole Sodium 40 mg 03/14/21 06:30 03/14/21 05:37 Pantoprazole Sodium 40 Mg/10 Ml Vial IVPUSH 40 mg BID@0630,1630 [facility] Administration Pharmacy Consult 1 each 03/13/21 08:52 Consult Rx Perform Med Rec MISCELLANE ONCE PRN Consult order Home Medications Medication Instructions Recorded Confirmed Last Taken Type bisacodyl 5 mg PO BEDTIME 10/09/20 03/13/21 Unknown History bisacodyl 10 mg IN DAILY 10/09/20 03/13/21 Unknown History clobetasol 1 applic TOPICAL BID 10/09/20 03/13/21 Unknown History gabapentin 300 mg PO BID@0630,1200 10/09/20 03/13/21 Unknown History lactulose 30 ml PO DAILY 10/09/20 03/13/21 Unknown History metformin 500 mg PO BID 10/09/20 03/13/21 Unknown History tamsulosin 0.4 mg PO DAILY 10/09/20 03/13/21 Unknown History tramadol 50 mg PO BID PRN 10/09/20 03/13/21 Unknown History trazodone 25 mg PO BEDTIME 10/09/20 03/13/21 Unknown History acetaminophen 650 mg PO Q4H PRN 03/13/21 03/13/21 Unknown History amlodipine 7.5 mg PO DAILY 03/13/21 03/13/21 Unknown History aspirin 81 mg PO DAILY 03/13/21 03/13/21 Unknown History doxycycline hyclate 100 mg PO BID 03/13/21 03/13/21 Unknown History gabapentin 600 mg PO BEDTIME 03/13/21 03/13/21 Unknown History insulin lispro [Humalog U-100 sliding scale dose QIDACHS 03/13/21 Unknown History Insulin] melatonin 3 mg PO BEDTIME 03/13/21 03/13/21 Unknown History niacinamide 500 mg PO TID 03/13/21 03/13/21 Unknown History prednisone 10 mg PO DAILY 03/13/21 03/13/21 Unknown History rosuvastatin 10 mg PO DAILY 03/13/21 03/13/21 Unknown History sennosides [senna] 17.2 mg PO BID 03/13/21 03/13/21 Unknown History Physical Exam Vital Signs: Vital Signs: Last Vital Signs Temp 99.0 F 03/14/21 16:00 Pulse 119 H 03/14/21 16:00 Resp 23 H 03/14/21 16:00 BP 155/86 H 03/14/21 16:00 Pulse Ox 93 03/14/21 16:00 Body Mass Index 23.2 Const: General: cooperative Orientation/consciousness: No patient oriented x3 HENMT: Head: Yes normal to inspection Mouth: Normal oral and palatal mucosa present Resp: Effort & Inspection: normal respiratory effort Cardio: Rate: regular rate Rhythm: regular rhythm GI: Palpation (GI): Soft to palpation and nontender Skin: General skin exam: no rashes or lesions noted Neuro: Other: rigid arms, rhythmic rising of arms looks straight ahead,not responsive General: No patient oriented x3 Cognition (Neuro): abnormal cognition Speech: Expressive aphasia present and Receptive aphasia present Results Labs CBC & Chem 7: 03/14/21 05:30 03/14/21 05:30 Labs: Short CBC 03/14/21 Range/Units 05:30 WBC 30.7 H* (4.8-10.8) X10*3/uL Hgb 11.9 L (14.0-18.0) g/dl Hct 36.7 L (42-52) % Plt Count 167 D (160-400) X10*3/uL BMP 03/14/21 05:30 Sodium 141 Potassium 4.2 Chloride 111 H Carbon Dioxide 22 BUN 32 H Creatinine 1.44 H Calcium 8.7 Liver Function 03/14/21 Range/Units 05:30 Total Bilirubin 1.1 H (0.0-1.0) mg/dL AST 18 (5-37) U/L ALT 26 (0-40) U/L Alkaline Phosphatase 84 (39-117) U/L Albumin 3.0 L (3.5-5.0) g/dL Microbiology Microbiology Results: Microbiology 03/13/21 Unknown Urine Nunez Port Urine Culture - Preliminary Culture in progress. 03/13/21 09:50 Blood - Venous Blood Culture - Preliminary Gram negative adriane 03/13/21 09:30 Blood - Venous Blood Culture - Preliminary Gram negative adriane Assessment and Plan (1) Acute UTI: Status: Acute (2) Sepsis: Qualifiers: Sepsis type: sepsis due to unspecified organism Problem details: gram negative bacteremia Possible E coli,Klebsiella,other no gram positive ?serotinergic reaction to linezolid and/or tramodol Status: Acute Continue Zosyn Stop linezolid,no gram positive seen but given due to multiple allergies and acuity of illness
--- NOTE | 2021-03-14 16:43 | PM.CCPN ---
Subjective Subjective Date of Service: 03/14/21 Interval History: Mr. Ardon was admitted to the ICU yesterday afternoon bec of septic shock. The patient is a 75-year-old male with a past medical history of MS, lives at a nursing facility last two years bec chronically bed-bound, BPH, depression, mood disorder, DM. He has h/o chronic UTIs with indwelling Nunez catheter, with prior VRE and ESBL organisms. Also has mult medications allergies, including abx allergies. The patient has DNR/DNI status, and a MOLST form reportedly specifying no transfer to hospital. Nevertheless, was BIBA this morning from his custodial with decreased responsiveness/AMS and hypotension since this morning. Per EMS, at baseline the patient is awake/alert, joking around with custodial staff. I spoke w family at some length, they told me that they?ve seen this pattern many times, he really ?crashes? when he gets these UTIs. In ED, the patient was unresponsive, but breathing easy w clear airway. Initial BP was 80/51, and declined from there, despite fluid resuscitation. Work up revealed white count of 29.6, Hb of 13.9, BUN/creat of 42/2.58 (baseline 1.), lactic acid 5.1. Troponin 40. Urinalysis consistent with a UTI and hematuria, 2+ leukocyte esterase, 10-14 with blood cells per high-power field and 4+ bacteria. Stool occult blood negative. Influenza and coronavirus negative. Head CT was negative. The patient was treated with cefepime and Macrobid, a central line was placed, and he was started on Levophed, and then admitted to the ICU Given his bacterial and antibiotic history, Abx were changed to cefepime and Zyvox at the suggestion of Dr. Ramsey. Overnight he started opening his eyes. Came off the Levophed. This morning, eyes are open, he?s clearly awake, he tracks when I call him, but he?s completely disoriented, not interactive, yelling out, moving his arms up and down, can?t r/o the possibly that he?s hallucinating. HR 112, SR, BP 153/84, RR about 16, Sat 100% on RA, T98.4?. PERRL about 6mm. No JVD at 30?. Chest CTA. RRR, S1 and S2, with no murmur or gallop. Abdomen is benign. No peripheral edema. He moves both upper extremities with strength; I did not see him move his lower extremities. LABORATORY DATA: Below. Notably, white count is 30 this morning, hemoglobin is down to 11.9 after volume resuscitation. BUN and creatinine are down to 32/1.4 (42/2.5 yest). CRP 34, alb 3.0. MICROBIOLOGY: Both sets of blood culture bottles growing Gram-negative rods, yet to be identified. Urine culture still pending. IMPRESSION: 1. Underlying MS and severe chronic disability. 2. Chronic indwelling Nunez catheter. Catheter changed. 3. Acute sepsis with Gram negative bacteremia. Source likely urinary. DC Zyvox. Continue cefepime. Await ID and sensitivity. Given the very excellent response to antibiotics so far, I expect the organism to be sensitive to cefepime. 4. Septic shock. Resolved. 5. Metabolic encephalopathy w acute delirium. I expect this to resolve as his condition improves. 6. EDWARD. 2? Septic shock and dehydration. Resolving. Likely adequately volume resuscitated. 7. Likely at least mild protein calorie malnutrition. 8. Positive stool occult blood. In need of further GI evaluation in the future. In the meantime, we?ve put him on PPI. Critical care time: 50 min. Physical Exam Vital Signs: Vital Signs: Last Vital Signs Temp 99.0 F 03/14/21 16:00 Pulse 119 H 03/14/21 16:00 Resp 23 H 03/14/21 16:00 BP 155/86 H 03/14/21 16:00 Pulse Ox 93 03/14/21 16:00 Body Mass Index 23.2 Objective Data Labs CBC & Chem 7: 03/14/21 05:30 03/14/21 05:30 Labs: Laboratory Results - last 24 hr 03/13/21 03/14/21 03/14/21 19:33 05:30 05:30 WBC 30.7 H* RBC 4.10 L Hgb 11.9 L Hct 36.7 L MCV 89.5 MCH 29.0 MCHC 32.4 RDW 17.5 H Plt Count 167 D MPV 9.2 L Absolute Nucleated RBC 0.000 Nucleated RBC % (auto) 0.0 Sodium 141 Potassium 4.2 Chloride 111 H Carbon Dioxide 22 Anion Gap 12 BUN 32 H Creatinine 1.44 H Estim Creat Clear Calc 51.5 Estimated GFR 48 Random Glucose 158 H Lactic Acid Fup @ 4Hr 1.8 Calcium 8.7 Phosphorus 4.1 Total Bilirubin 1.1 H AST 18 ALT 26 Alkaline Phosphatase 84 C-Reactive Protein 33.49 H Total Protein 5.3 L Albumin 3.0 L Microbiology Microbiology Results: Microbiology 03/13/21 Unknown Urine Nunez Port Urine Culture - Preliminary Culture in progress. 03/13/21 09:50 Blood - Venous Blood Culture - Preliminary Gram negative adriane 03/13/21 09:30 Blood - Venous Blood Culture - Preliminary Gram negative adriane Progress Note: A&P Time Spent With Patient Time: Total time spent is greater than 50% in coordination of care (as documented) at patient's floor/unit and/or counseling patient: Total time spent with greater than 50% in coordination of care (as documented) at patient's floor/unit and/or counseling patient:: 0 Critical Care Time Critical Care Time (minutes): 60
[2021-03-14] MEDS: HYDROmorphone HCl 0.5 MG/0.5 ML SYRINGE IVPUSH ×2 (20:20→20:53)
--- NOTE | 2021-03-14 20:34 | PC.NURSE ---
PT PULLED OUT NG TUBE AT 1900. PA AND NOTIFIED.
[2021-03-14] MEDS: HYDROmorphone HCl 0.5 MG/0.5 ML SYRINGE 1 MG IVPUSH (23:31)
[2021-03-15] VITALS (9 sets, daily range): BP systolic 97–177; BP diastolic 53–98; PULSE 98–117; RESP 10–20; TEMP 36.4–37.5; O2SAT 92–96; BMI 22.9
[2021-03-15] MEDS: HYDROmorphone HCl 0.5 MG/0.5 ML SYRINGE 1 MG IVPUSH ×5 (02:02→20:45)
[2021-03-15] MEDS: QUEtiapine Fumarate 25 MG TABLET PO (02:34)
[2021-03-15] MEDS: cefEPime HCl 2 GM in 0.9 % Sodium Chloride 50 ML IV (05:55)
[2021-03-15] MEDS: Pantoprazole Sodium 40 MG/10 ML VIAL IVPUSH ×2 (06:15→16:42)
[2021-03-15 06:25] LABS: MANUAL DIFF FLAG NO
[2021-03-15 06:34] LABS: Basophils Percent Auto 0.2 % (0-2); Eosinophils Absolute Auto 0.1 X10*3/uL (0.0-0.4); Eosinophils Percent Auto 0.8 % (0-4); Hematocrit 33.2 % (42-52); Hemoglobin 10.8 g/dl (14.0-18.0); Imm Gran Abs Auto 0.18 X10*3/uL (0.00-0.03); Lymphocytes Absolute Auto 0.8 X10*3/uL (1.2-4.9); Lymphocytes Percent Auto 4.3 % (20-40); Mean Corpuscular HGB Conc 32.5 g/dl (31.0-36.0); Mean Corpuscular Hemoglobin 29.2 pg (27.0-33.0); Mean Corpuscular Volume 89.7 fL (80-98); Mean Platelet Volume 9.9 fL (9.4-12.4); Monocytes Absolute Auto 1.1 X10*3/uL (0.1-1.2); Monocytes Percent Auto 6.3 % (2-11); Neutrophils Absolute Auto 15.6 X10*3/uL (2.0-8.3); Neutrophils Percent Auto 87.4 % (45-73); Platelet Count 147 X10*3/uL (160-400); Red Cell Distribution Width 17.4 % (11.0-16.0); White Blood Count 17.9 X10*3/uL (4.8-10.8)
[2021-03-15 07:05] LABS: Alanine Aminotransferase 20 U/L (0-40); Alkaline Phosphatase 81 U/L (39-117); Anion Gap 14 (12-20); Aspartate Amino Transferase 14 U/L (5-37); Blood Urea Nitrogen 25 mg/dL (9-16); Calcium 8.6 mg/dL (8.4-10.2); Carbon Dioxide 25 mmol/L (22-29); Chloride 106 mmol/L (96-108); Creatinine Clr Calc Pharmacy 65.5; Estimated Glomerular Filt Rate > 60; Glucose Random 136 mg/dL (60-115); Potassium 3.9 mmol/L (3.3-5.1); Sodium 141 mmol/L (135-145); Total Protein 5.2 g/dL (6.5-8.0)
[2021-03-15 09:02] LABS: Glucose, Whole Blood 139 mg/dL (60-115)
--- NOTE | 2021-03-15 11:02 | HO.PM.IMPN ---
Subjective Subjective Date of Service: 03/15/21 Interval History: seen and examined this AM reports lower extremity pain denies abodminal pain ROS unreliable Physical Exam Vital Signs: Vital Signs: Last Vital Signs Temp 97.5 F 03/15/21 07:52 Pulse 98 03/15/21 07:52 Resp 16 03/15/21 07:52 BP 134/61 03/15/21 07:52 Pulse Ox 95 03/15/21 07:52 Body Mass Index 22.9 Const: Other: General - in pain Cardiovascular - regular rate and rhythm, S1-S2 Lungs - normal respiratory effort, clear to auscultation bilaterally, no wheezing Abdomen - soft, nontender, no rebound or guarding Extremities - no edema bilaterally Neuro - awake and alert Skin -- see pictures below Objective Data Current Medications Generic Name Dose Route Start Last Admin Trade Name Freq PRN Reason Stop Dose Admin Hydromorphone HCl 1 mg 03/14/21 20:41 03/15/21 10:47 Hydromorphone Hcl 0.5 Mg/0.5 Ml Syringe IVPUSH 1 mg Q2H PRN Administration Pain, Moderate (Pain Scale 4-6 Cefepime HCl 2 gm/ Sodium 50 mls @ 100 mls/hr 03/14/21 05:00 03/15/21 06:42 Chloride IV Infused Q12H [facility] Infusion Dextrose/Sodium Chloride 1,000 mls @ 100 mls/hr 03/15/21 11:00 D51/2ns IVCONT 03/15/21 20:59 .Q10H [facility] Insulin Human Lispro 0 unit 03/15/21 07:30 03/15/21 09:01 Insulin Lispro 100 Unit/Ml 3 Ml Vial SUBCUT Not Given QIDACHS [facility] Protocol Pantoprazole Sodium 40 mg 03/14/21 06:30 03/15/21 06:15 Pantoprazole Sodium 40 Mg/10 Ml Vial IVPUSH 40 mg BID@0630,1630 [facility] Administration Pharmacy Consult 1 each 03/13/21 08:52 Consult Rx Perform Med Rec MISCELLANE ONCE PRN Consult order Tramadol HCl 50 mg 03/15/21 02:25 Tramadol Hcl 50 Mg Tablet PO Q8H PRN Pain, Moderate (Pain Scale 4-6 Labs CBC & Chem 7: 03/15/21 06:10 03/15/21 06:10 Microbiology Microbiology Results: Microbiology 03/13/21 Unknown Urine Nunez Port Urine Culture - Preliminary Gram negative adriane 03/13/21 09:50 Blood - Venous Blood Culture - Final Proteus mirabilis 03/13/21 09:30 Blood - Venous Blood Culture - Final Proteus mirabilis Assessment and Plan (1) Acute UTI: Status: Acute Assessment and Plan: This is a 75-year-old male with the past medical history of advance MS, 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 He was initially treated in the intensive care unit with vasopressors and IV antibiotics and was subsequently transferred out overnight on 03/14/2021 in stable fashion. 1. Septic shock Resolved Status post vasopressors in the intensive care unit And due to urinary tract infection and resultant Gram-negative bacteremia See details below 2. Urinary tract infection in the setting of chronic Nunez catheter 2a. Proteus bacteremia Catheter change in the intensive care Urine cultures pending Proteus growing in the blood, fortunately is pansensitive Will change cefepime over to ceftriaxone for an additional 24 hours Plan for discharge on cefuroxime likely tomorrow if stable 3. Acute Kidney Injury Due to above improved with fluids + vasopressors monitor 4. Toxic/Metabolic encephalopathy due to above improved 5. Acute Anemia probably dilutional from fluids FOBT+ but no perez bleeding noted (d/w ICU today) monitor on IV PPI for now, will change to orals once seen by speech 6. MS continue baseline meds once med rec done DNR/DNI mechanical due to acute anemia
[2021-03-15 11:59] LABS: Glucose, Whole Blood 139 mg/dL (60-115)
[2021-03-15] MEDS: cefTRIAXone sodium 1 GM in 0.9 % Sodium Chloride 50 ML IV (12:35)
[2021-03-15] MEDS: Dextrose 5 % and 0.45 % NaCl 1,000 ML 100 ML IVCONT (12:37)
[2021-03-15] MEDS: Baclofen 10 MG TABLET PO (12:40)
--- NOTE | 2021-03-15 13:00 | MHC.SL.SWA ---
Speech Pathologist Impression: Risk of Aspiration Oral Phase Dysphagia Risk of Aspiration Due to: Medically Fragile Reduced Cognition Dysphasia Diet Status: Downgrade Liquid Consistency and Strategies for Safe Swallow: Liquid Intake Recommendation: Thin Liquid Intake Strategies: Small Sips Solid Food Consistency: Dietary Recommendations: Grnd/Mech Altered (NDD2) Additional Modifications to Solid Foods: Moisten food with sauces and gravies for ease of mastication whenever possible. Oral Medication Intake: Crushed with Puree Compensatory Strategies and Precautions to be Taken for Safe Swallow: Sitting Upright (90 deg) Liquids from Cup Liquids from Straw Small Bites and Sips Alternate Liquids/Solids Avoid Specific Foods Supervision While Eating and Drinking for Safe Swallow: Total Assistance Foods to Avoid: Avoid tough and sticky solids. Swallowing Recommended Treatments: Compens. Strategy Educat. Recommendation for Speech: Inpatient Speech Therapy Comment: Frequency/Duration: Date Range for Service Req: Timeline to reassess: Online Merchandiser Clinican/Clinical Fellow: Yes: Corina Camara M.A., CF-FOREST FIRE MANAGEMENT OFFICER Supervisory Statement: I have reviewed and agree with the student/clinical fellow's documentation: Speech Language Pathologist:
--- NOTE | 2021-03-15 15:07 | MHC.CLN ---
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
[2021-03-15 16:32] LABS: Glucose, Whole Blood 182 mg/dL (60-115)
[2021-03-15] MEDS: Insulin Lispro 100 UNIT/ML 3 ML VIAL SUBCUT ×2 (16:41→19:57)
[2021-03-15] MEDS: Sennosides 8.6 MG TABLET 17.2 MG PO (18:32)
[2021-03-15 19:54] LABS: Glucose, Whole Blood 226 mg/dL (60-115)
[2021-03-15] MEDS: bisacodyL 5 MG TABLET.DR PO (19:57)
[2021-03-15] MEDS: Baclofen 20 MG TABLET PO (19:57)
[2021-03-15] MEDS: traMADoL HCL 50 MG TABLET PO (19:58)
[2021-03-15 20:27] LABS: Glucose, Whole Blood 223 mg/dL (60-115)
[2021-03-16] VITALS: BP 126/66; PULSE 93; RESP 18; TEMP 36.1; O2SAT 95
[2021-03-16 05:56] VITALS: BMI 23.9
[2021-03-16] MEDS: Pantoprazole Sodium 40 MG/10 ML VIAL IVPUSH (06:04)
[2021-03-16] MEDS: HYDROmorphone HCl 0.5 MG/0.5 ML SYRINGE 1 MG IVPUSH (06:04)
[2021-03-16 07:50] VITALS: BP 180/81; PULSE 93; RESP 18; TEMP 36.6; O2SAT 94
[2021-03-16 07:59] LABS: Glucose, Whole Blood 100 mg/dL (60-115)
[2021-03-16] MEDS: amLODIPine Besylate 2.5 MG TABLET 7.5 MG PO (08:41)
[2021-03-16] MEDS: Baclofen 20 MG TABLET PO ×3 (08:41→21:19)
[2021-03-16] MEDS: Lactulose 20 GM/30 ML SOLUTION PO (08:42)
[2021-03-16] MEDS: Sennosides 8.6 MG TABLET 17.2 MG PO ×2 (08:42→21:19)
[2021-03-16 11:17] LABS: Hematocrit 33.4 % (42-52); Hemoglobin 10.8 g/dl (14.0-18.0); Mean Corpuscular HGB Conc 32.3 g/dl (31.0-36.0); Mean Corpuscular Volume 89.5 fL (80-98); Mean Platelet Volume 9.9 fL (9.4-12.4); Platelet Count 156 X10*3/uL (160-400); Red Blood Count 3.73 X10*6/uL (4.60-5.80); Red Cell Distribution Width 17.2 % (11.0-16.0); White Blood Count 8.7 X10*3/uL (4.8-10.8)
[2021-03-16 11:48] LABS: Glucose, Whole Blood 170 mg/dL (60-115)
[2021-03-16] MEDS: Insulin Lispro 100 UNIT/ML 3 ML VIAL SUBCUT ×2 (11:53→21:19)
[2021-03-16] MEDS: cefTRIAXone sodium 1 GM in 0.9 % Sodium Chloride 50 ML IV (11:53)
--- NOTE | 2021-03-16 12:44 | MHC.SL.SWA ---
Speech Pathologist Impression: Risk of Aspiration Oral Phase Dysphagia Risk of Aspiration Due to: Medically Fragile Reduced Cognition Dysphasia Diet Status: UPGRADE Liquid Consistency and Strategies for Safe Swallow: Liquid Intake Recommendation: Thin Liquid Intake Strategies: Small Sips Solid Food Consistency: Dietary Recommendations: Chopped/Advanced (NDD3) Additional Modifications to Solid Foods: Moisten food with sauces and gravies for ease of mastication whenever possible. Oral Medication Intake: Crushed with Puree Compensatory Strategies and Precautions to be Taken for Safe Swallow: Sitting Upright (90 deg) Liquids from Cup Liquids from Straw Small Bites and Sips Alternate Liquids/Solids Avoid Specific Foods Supervision While Eating and Drinking for Safe Swallow: Total Assistance Foods to Avoid: Avoid tough and sticky solids. Swallowing Recommended Treatments: Compens. Strategy Educat. Recommendation for Speech: Inpatient Speech Therapy Auto Motor Mechanic Clinican/Clinical Fellow: No Supervisory Statement: I have reviewed and agree with the student/clinical fellow's documentation: N/A Speech Language Pathologist: Heather Larsen M.A., CCC-WHITE WASHER PILER
--- NOTE | 2021-03-16 12:49 | HO.PM.IMPN ---
Subjective Subjective Date of Service: 03/16/21 <SAUL Fulton - Last Filed: 03/16/21 13:11> 03/16/21 <Westley Garcia MD - Last Filed: 03/16/21 13:36> Interval History: follow up septic shock/uti Seen and examined this morning No complaints this time <SAUL Fulton - Last Filed: 03/16/21 13:11> Review of Systems Review of Systems: Yes all other systems are reviewed and are negative <SAUL Fulton - Last Filed: 03/16/21 13:11> Constitutional Constitutional: Denies chills and Denies fever(s) <SAUL Fulton - Last Filed: 03/16/21 13:11> Cardiovascular Cardiovascular: Denies chest pain <SAUL Fulton - Last Filed: 03/16/21 13:11> Respiratory Respiratory: Denies cough <SAUL Fulton - Last Filed: 03/16/21 13:11> Gastrointestinal Gastrointestinal: Denies abdominal pain <SAUL Fulton - Last Filed: 03/16/21 13:11> Physical Exam Vital Signs: Vital Signs: Last Vital Signs Temp 97.8 F 03/16/21 07:50 Pulse 93 03/16/21 07:50 Resp 18 03/16/21 07:50 BP 180/81 H 03/16/21 07:50 Pulse Ox 94 03/16/21 07:50 Body Mass Index 23.9 <SAUL Fulton - Last Filed: 03/16/21 13:11> Const: General: alert and awake <SAUL Fulton - Last Filed: 03/16/21 13:11> Nutritional Appearance: well nourished <SAUL Fulton - Last Filed: 03/16/21 13:11> HENMT: Head: Yes normocephalic and Yes atraumatic <SAUL Fulton - Last Filed: 03/16/21 13:11> Eyes: Sclerae: sclerae normal <SAUL Fulton - Last Filed: 03/16/21 13:11> Resp: Effort & Inspection: normal respiratory effort and no respiratory distress <SAUL Fulton - Last Filed: 03/16/21 13:11> Cardio: Rate: regular rate <SAUL Fulton - Last Filed: 03/16/21 13:11> Rhythm: regular rhythm <SAUL Fulton Last Filed: 03/16/21 13:11> GI: Palpation (GI): Soft to palpation and nontender <SAUL Fulton - Last Filed: 03/16/21 13:11> : Other: carty present, hematuria <SAUL Fulton Last Filed: 03/16/21 13:11> Skin: Other: <SAUL Fulton Last Filed: 03/16/21 13:11> Neuro: Cranial nerves: Yes CN's II-XII intact bilaterally and Yes Bilaterally intact EOM present <SAUL Fulton Last Filed: 03/16/21 13:11> Objective Data Current Medications Generic Name Dose Route Start Last Admin Trade Name Millerq PRN Reason Stop Dose Admin Amlodipine Besylate 7.5 mg 03/16/21 09:00 03/16/21 08:41 Amlodipine Besylate 2.5 Mg Tablet PO 7.5 mg DAILY [facility] Administration Protocol Atorvastatin Calcium 40 mg 03/17/21 09:00 Atorvastatin Calcium 40 Mg Tablet PO DAILY [facility] Baclofen 20 mg 03/15/21 21:00 03/16/21 08:41 Baclofen 20 Mg Tablet PO 20 mg TID [facility] Administration Bisacodyl 5 mg 03/15/21 21:00 03/15/21 19:57 Bisacodyl 5 Mg Tablet.Dr PO 5 mg BEDTIME W[facility] Administration Gabapentin 600 mg 03/16/21 21:00 Gabapentin 600 Mg Tablet PO BEDTIME [facility] Gabapentin 300 mg 03/17/21 06:30 Gabapentin 300 Mg Capsule PO BID@0630,1200 [facility] Ceftriaxone Sodium 1 gm/ 50 mls @ 100 mls/hr 03/15/21 12:00 03/16/21 11:53 Sodium Chloride IV 100 mls/hr Q24H [facility] Administration Insulin Human Lispro 0 unit 03/15/21 07:30 03/16/21 11:53 Insulin Lispro 100 Unit/Ml 3 Ml Vial SUBCUT 2 unit QIDACHS [facility] Administration Protocol Lactulose 20 gm 03/16/21 09:00 03/16/21 08:42 Lactulose 20 Gm/30 Ml Solution PO 20 gm DAILY [facility] Administration Melatonin 3 mg 03/16/21 21:00 Melatonin 3 Mg Tablet PO BEDTIME [facility] Non-Formulary Medication 10 mg 03/17/21 09:00 Citalopram PO DAILY [facility] Omeprazole 40 mg 03/17/21 06:30 Omeprazole 40 Mg Capsule. PO DAILY@0630 [facility] Pharmacy Consult 1 each 03/13/21 08:52 Consult Rx Perform Med Rec MISCELLANE ONCE PRN Consult order Pharmacy Consult 1 each 03/15/21 11:02 Consult Rx Perform Med Rec MISCELLANE ONCE PRN Consult order Senna 17.2 mg 03/15/21 18:00 03/16/21 08:42 Sennosides 8.6 Mg Tablet PO 17.2 mg BID [facility] Administration Tamsulosin HCl 0.4 mg 03/16/21 21:00 Tamsulosin Hcl 0.4 Mg Capsule PO BEDTIME [facility] Tramadol HCl 50 mg 03/15/21 02:25 03/15/21 19:58 Tramadol Hcl 50 Mg Tablet PO 50 mg Q8H PRN Administration Pain, Moderate (Pain Scale 4-6 Tramadol HCl 50 mg 03/16/21 12:43 Tramadol Hcl 50 Mg Tablet PO BID PRN Pain Trazodone HCl 25 mg 03/16/21 21:00 Trazodone Hcl 25 Mg Halftab PO BEDTIME [facility] <SAUL Fulton - Last Filed: 03/16/21 13:11> Labs CBC & Chem 7: : 03/16/21 10:01 03/15/21 06:10 <SAUL Fulton - Last Filed: 03/16/21 13:11> Microbiology Microbiology Results: Microbiology 03/13/21 Unknown Urine Carty Port Urine Culture - Final Proteus mirabilis 03/13/21 09:50 Blood - Venous Blood Culture - Final Proteus mirabilis 03/13/21 09:30 Blood - Venous Blood Culture - Final Proteus mirabilis <SAUL Fulton - Last Filed: 03/16/21 13:11> Assessment and Plan (1) Acute UTI: Status: Acute <SAUL Fulton - Last Filed: 03/16/21 13:11> Assessment and Plan: This is a 75-year-old male with the past medical history of advance MS, 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 He was initially treated in the intensive care unit with vasopressors and IV antibiotics and was subsequently transferred out overnight on 03/14/2021 in stable fashion. 1. Septic shock Resolved Status post vasopressors in the intensive care unit due to urinary tract infection and resultant Gram-negative bacteremia See details below 2. Urinary tract infection in the setting of chronic Carty catheter 2a. Proteus bacteremia 2b. hematuria Catheter change in the intensive care Urine culture growing proteus Proteus growing in the blood, fortunately is pansensitive Will change cefepime over to ceftriaxone for an additional 24 hours Plan for discharge on cefuroxime -follow cbc, hold asa 3. Acute Kidney Injury Due to above improved with fluids + vasopressors monitor 4. Toxic/Metabolic encephalopathy due to above improved 5. Acute Anemia probably dilutional from fluids FOBT+ but no perez bleeding noted monitor po ppi 6. MS continue baseline meds 7. Chronic wounds. Present on admission -continue local wound care dispo: back to [facility] likely tomorrow,or when hematuria clears DNR/DNI mechanical due to acute anemia <SAUL Fulton - Last Filed: 03/16/21 13:11> Attending Attestation: Patient seen and examined independently and I was present during hoffman portion of E/M service. Agree with SAUL Duval's history, physical, assessment, and plan. <Westley Garcia MD - Last Filed: 03/16/21 13:36>
--- NOTE | 2021-03-16 12:49 | MHC.CM.PN ---
NURSE PLANT SPECIALIST NOTE ELCTRONIC MEDICAL RECORD REVIEWED ALONG WITH CASE DISCUSSED WITH STAFF NURSE AND HOSPITALIST. PATIENT WAS ANTICIPATED TO BE DISCHARGED TODAY BACK TO THE [facility] BUT STARTED HAVING HEMATURIA , ANTICIPATED POSSIBLE LATE DISCHARGE TODAY OR TOMORROW . CLINICAL UPDATE SENT VIA [facility] T/C TO [facility] [phone] and asked if they could prebook and hold the alert ambulance for late today or tomorrow , (she responded that his can not be done and call her back if the plan is definite to discharge late today if disxcharged on the weekend to [facility] [phone] EXT [id number] AND ASK FOR THE AOD TO ARRANGE DISCHARGE RETURN BACK TO [facility] [address] TO ARRANGE FOR AMBULANCE TRANSPORT MEDICARE IMM UPDATED 03/16/21
[2021-03-16] MEDS: traMADoL HCL 50 MG TABLET PO ×2 (13:34→21:18)
--- NOTE | 2021-03-16 14:10 | MHC.CLN ---
F/U PO 25% DIET RX: 2200DM CHOPPED-APPROPRIATE [employer]ILIT[employer] TE[employer]ER REC CHOPPED DIET 03/16 RECOMMEND ADDING ENSURE TID AND JHON TO PROMOTE WOUND HEALING SUPPLEMENTS TO PROVIDE 1210KCALS, 65G PROTEIN MONITOR BS CLOSELY
[2021-03-16 16:00] VITALS: BP 162/76; PULSE 102; RESP 14; TEMP 37.5; O2SAT 97
[2021-03-16 16:58] LABS: Glucose, Whole Blood 104 mg/dL (60-115)
[2021-03-16 20:31] LABS: Glucose, Whole Blood 214 mg/dL (60-115)
[2021-03-16] MEDS: Gabapentin 600 MG TABLET PO (21:18)
[2021-03-16] MEDS: traZODone HCL 25 MG HALFTAB PO (21:18)
[2021-03-16] MEDS: Melatonin 3 MG TABLET PO (21:18)
[2021-03-16] MEDS: bisacodyL 5 MG TABLET.DR PO (21:19)
[2021-03-16] MEDS: Tamsulosin HCL 0.4 MG CAPSULE PO (21:19)
[2021-03-16 23:27] VITALS: BP 114/66; PULSE 96; RESP 18; TEMP 36.7; O2SAT 96
[2021-03-17] MEDS: Gabapentin 300 MG CAPSULE PO ×2 (05:55→12:40)
[2021-03-17] MEDS: Omeprazole 40 MG CAPSULE.DR PO (05:55)
[2021-03-17 06:12] VITALS: BMI 24.0
[2021-03-17 07:55] VITALS: BP 128/60; PULSE 94; RESP 16; TEMP 36.3; O2SAT 99
[2021-03-17] MEDS: traMADoL HCL 50 MG TABLET PO ×2 (08:03→19:53)
[2021-03-17 08:07] LABS: Glucose, Whole Blood 109 mg/dL (60-115)
[2021-03-17] MEDS: Sennosides 8.6 MG TABLET 17.2 MG PO ×2 (10:26→21:26)
[2021-03-17] MEDS: Baclofen 20 MG TABLET PO ×3 (10:26→21:26)
[2021-03-17 10:27] VITALS: BP 140/61; PULSE 96
[2021-03-17] MEDS: Atorvastatin Calcium 40 MG TABLET PO (10:27)
[2021-03-17] MEDS: amLODIPine Besylate 2.5 MG TABLET 7.5 MG PO (10:27)
[2021-03-17] MEDS: Escitalopram Oxalate 5 MG TABLET PO (10:28)
[2021-03-17] MEDS: Lactulose 20 GM/30 ML SOLUTION PO (10:28)
[2021-03-17 11:43] VITALS: BP 108/60; PULSE 97; RESP 15; TEMP 36.7; O2SAT 97
[2021-03-17 11:48] LABS: Glucose, Whole Blood 130 mg/dL (60-115)
[2021-03-17] MEDS: cefTRIAXone sodium 1 GM in 0.9 % Sodium Chloride 50 ML IV (12:26)
--- NOTE | 2021-03-17 13:05 | P.PNIM_ITS ---
Subjective Subjective Date of Service: 03/17/21 <Sandra Blake NP - Last Filed: 03/17/21 14:06> 03/17/21 <Mary Schroeder MD - Last Filed: 03/17/21 15:16> Interval History: Follow up bacteremia, encephalopathy. Feeling better today. Some mild pain in left side of abdomen, feeling constipated, no BM in 5 days. Still with hematuria <Sandra Blake NP - Last Filed: 03/17/21 14:06> Physical Exam Vital Signs: Vital Signs: Last Vital Signs Temp 98.1 F 03/17/21 11:43 Pulse 97 03/17/21 11:43 Resp 15 03/17/21 11:43 BP 108/60 03/17/21 11:43 Pulse Ox 97 03/17/21 11:43 Body Mass Index 24.0 <Sandra Blake NP - Last Filed: 03/17/21 14:06> Appearing in no acute distress lung sounds normal expansion heart regular rate rhythm, clear S1, S2 positive bowel sounds, abdomen is soft, nontender neuro patient is alert x3, no focal deficits Multiple excoriated areas to foot with, flakiness <Sandra Blake NP - Last Filed: 03/17/21 14:06> Objective Data Current Medications Generic Name Dose Route Start Last Admin Trade Name Abbe PRN Reason Stop Dose Admin Amlodipine Besylate 7.5 mg 03/16/21 09:00 03/17/21 10:27 Amlodipine Besylate 2.5 Mg Tablet PO 7.5 mg DAILY [facility] Administration Protocol Atorvastatin Calcium 40 mg 03/17/21 09:00 03/17/21 10:27 Atorvastatin Calcium 40 Mg Tablet PO 40 mg DAILY [facility] Administration Baclofen 20 mg 03/15/21 21:00 03/17/21 10:26 Baclofen 20 Mg Tablet PO 20 mg TID [facility] Administration Bisacodyl 5 mg 03/15/21 21:00 03/16/21 21:19 Bisacodyl 5 Mg Tablet.Dr PO 5 mg BEDTIME [facility] Administration Escitalopram Oxalate 5 mg 03/17/21 09:00 03/17/21 10:28 Escitalopram Oxalate 5 Mg Tablet PO 5 mg DAILY [facility] Administration Gabapentin 600 mg 03/16/21 21:00 03/16/21 21:18 Gabapentin 600 Mg Tablet PO 600 mg BEDTIME [facility] Administration Gabapentin 300 mg 03/17/21 06:30 03/17/21 12:40 Gabapentin 300 Mg Capsule PO 300 mg BID@0630,1200 [facility] Administration Ceftriaxone Sodium 1 gm/ 50 mls @ 100 mls/hr 03/15/21 12:00 03/17/21 12:26 Sodium Chloride IV 100 mls/hr Q24H [facility] Administration Insulin Human Lispro 0 unit 03/15/21 07:30 03/17/21 11:59 Insulin Lispro 100 Unit/Ml 3 Ml Vial SUBCUT Not Given QIDACHS [facility] Protocol Lactulose 20 gm 03/16/21 09:00 03/17/21 10:28 Lactulose 20 Gm/30 Ml Solution PO 20 gm DAILY [facility] Administration Melatonin 3 mg 03/16/21 21:00 03/16/21 21:18 Melatonin 3 Mg Tablet PO 3 mg BEDTIME [facility] Administration Omeprazole 40 mg 03/17/21 06:30 03/17/21 05:55 Omeprazole 40 Mg Capsule. PO 40 mg DAILY@0630 [facility] Administration Pharmacy Consult 1 each 03/13/21 08:52 Consult Rx Perform Med Rec MISCELLANE ONCE PRN Consult order Pharmacy Consult 1 each 03/15/21 11:02 Consult Rx Perform Med Rec MISCELLANE ONCE PRN Consult order Senna 17.2 mg 03/15/21 18:00 03/17/21 10:26 Sennosides 8.6 Mg Tablet PO 17.2 mg BID [facility] Administration Tamsulosin HCl 0.4 mg 03/16/21 21:00 03/16/21 21:19 Tamsulosin Hcl 0.4 Mg Capsule PO 0.4 mg BEDTIME [facility] Administration Tramadol HCl 50 mg 03/15/21 02:25 03/16/21 21:18 Tramadol Hcl 50 Mg Tablet PO 50 mg Q8H PRN Administration Pain, Moderate (Pain Scale 4-6 Tramadol HCl 50 mg 03/16/21 12:43 03/17/21 08:03 Tramadol Hcl 50 Mg Tablet PO 50 mg BID PRN Administration Pain Trazodone HCl 25 mg 03/16/21 21:00 03/16/21 21:18 Trazodone Hcl 25 Mg Halftab PO 25 mg BEDTIME [facility] Administration <Sandra Blake NP - Last Filed: 03/17/21 14:06> Labs CBC & Chem 7: : 03/17/21 14:25 04/15/21 06:10 <Sandra Blake NP - Last Filed: 03/17/21 14:06> Microbiology Microbiology Results: Microbiology 03/13/21 Unknown Urine Nunez Port Urine Culture - Final Proteus mirabilis 03/13/21 09:50 Blood - Venous Blood Culture - Final Proteus mirabilis 03/13/21 09:30 Blood - Venous Blood Culture - Final Proteus mirabilis <Sandra Blake NP - Last Filed: 03/17/21 14:06> Assessment and Plan (1) Acute UTI: Status: Acute <Sandra Blake NP - Last Filed: 03/17/21 14:06> (2) Sepsis: Status: Acute <Sandra Blake NP - Last Filed: 03/17/21 14:06> Assessment and Plan: This is a 75-year-old male with the past medical history of advance MS, 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 He was initially treated in the intensive care unit with vasopressors and IV antibiotics and was subsequently transferred out overnight on 03/14/2021. Urinary tract infection in the setting of chronic Nunez catheter. -2/2 Proteus bacteremia. -Ceftriaxone -Plan for discharge on cefuroxime Hematuria. Chronic catheter. Catheter change in the intensive care -Small clots irrigated -follow cbc, hold asa -start CBI -urology consultation. Constipation. Patient reported no BM in 5 days. -Fleets -continue senna and lactulose Shoulder pain -Lidocaine patch -warm compress Septic shock. Resolved. Status post vasopressors in the intensive care unit due to urinary tract infection and resultant Gram-negative bacteremia Acute Kidney Injury. Secondary to infection. improved with fluids + vasopressors -follow BMP Toxic/Metabolic encephalopathy. Secondary to infection. Improved Acute Anemia. probably dilutional from fluids. no perez bleeding noted -trend CBC -PPI MS continue baseline meds Chronic wounds. Present on admission -continue local wound care DISPO: back to [facility] likely tomorrow,or when hematuria clears DNR/DNI Attending: Dr. Schroeder <Sandra Blake NP - Last Filed: 03/17/21 14:06>
[2021-03-17] MEDS: Lidocaine 4 % Patch ADH..PATCH 1 PATCH TRANSDERMA (13:32)
[2021-03-17] MEDS: 0.9 % Sodium Chloride 500 ML 50 ML IV (13:32)
[2021-03-17 14:58] LABS: Hematocrit 34.3 % (42-52); Hemoglobin 11.3 g/dl (14.0-18.0)
[2021-03-17 15:50] VITALS: BP 131/64; PULSE 100; RESP 18; TEMP 36.5; O2SAT 97
[2021-03-17 16:34] LABS: Glucose, Whole Blood 155 mg/dL (60-115)
[2021-03-17] MEDS: Insulin Lispro 100 UNIT/ML 3 ML VIAL SUBCUT ×2 (17:02→21:25)
--- NOTE | 2021-03-17 18:18 | PM.UROCN ---
History of Present Illness Consult details Consult date: 03/17/21 Narrative: Omero is a very pleasant male. Admitted to hospital with hematuria Urinary culture is positive as is blood culture for Proteus mirabilis. Today urine is clearing This is in response to antibiotics Would continue antibiotics for 14 days given urosepsis Does not report prior issues with prostate Home background of diabetes Normally on tamsulosin at home Would continue with tamsulosin 0.8 mg q.h.s. daily in add finasteride Can review in 3-4 weeks [facility] Past Medical History Medical History (Updated 03/17/21 @ 18:20 by Miguel Angel Bartholomew MD) BPH (benign prostatic hyperplasia) Chronic pain syndrome Chronic renal failure Dehydration Depression Diabetes mellitus type 2 in obese Multiple sclerosis Urinary tract infection Family History Family history: reviewed and not pertinent Social History Social History Household Members: Other Household Members Other:: lives in long-term Housing: [facility] Housing Other:: [facility] Smoking Status: Never smoker Use of substances other than those prescribed or required for medical reasons: No Currently Displaying Signs/Symptoms of Drug Intoxication Withdrawal: No Spiritual Healthcare Practices: no Advance Directives: Yes Advance Directives on File: Yes Advance Directives Date on File: 10/13/20 Do you have thoughts of harming others: None Do you have a plan to hurt others: No Plan Recently lost weight without trying: No service: Yes Current occupational status: retired Meds Allergies Allergy/AdvReac Type Severity Reaction Status Date / Time Benzodiazepines Allergy Unknown UNKNOWN Verified 10/09/20 22:49 [BENZODIAZEPINES] dalfampridine [From AMPYRA] Allergy Unknown UNKNOWN Verified 10/09/20 22:49 duloxetine [From CYMBALTA] Allergy Unknown UNKNOWN Verified 10/09/20 22:49 ezetimibe [From ZETIA] Allergy Unknown UNKNOWN Verified 10/09/20 22:49 niacin [NIACIN] Allergy Unknown UNKNOWN Verified 10/09/20 22:49 pravastatin [PRAVASTATIN] Allergy Unknown UNKNOWN Verified 10/09/20 22:49 Zgxyupn-Lvc-Edp Reductase Allergy Unknown UNKNOWN Verified 10/09/20 22:49 Inhibitor [[id number] REDUCTASE INHIBITOR] lorazepam [From ATIVAN] AdvReac Severe EXCESSIVE Verified 10/09/20 22:49 SEDATION doxycycline [DOXYCYCLINE] AdvReac Mild esophogeal Verified 10/09/20 22:49 iritation methylprednisolone AdvReac Mild heartburn Verified 10/09/20 22:49 [From SOLU-MEDROL] ertapenem [From INVANZ] AdvReac Unknown possible Verified 10/09/20 22:49 cause of bullous pemphigoid Active Medications: Current Medications Generic Name Dose Route Start Last Admin Trade Name Millerq PRN Reason Stop Dose Admin Amlodipine Besylate 7.5 mg 03/16/21 09:00 03/17/21 10:27 Amlodipine Besylate 2.5 Mg Tablet PO 7.5 mg DAILY [facility] Administration Protocol Atorvastatin Calcium 40 mg 03/17/21 09:00 03/17/21 10:27 Atorvastatin Calcium 40 Mg Tablet PO 40 mg DAILY [facility] Administration Baclofen 20 mg 03/15/21 21:00 03/17/21 15:29 Baclofen 20 Mg Tablet PO 20 mg TID [facility] Administration Bisacodyl 5 mg 03/15/21 21:00 03/16/21 21:19 Bisacodyl 5 Mg Tablet.Dr PO 5 mg BEDTIME [facility] Administration Escitalopram Oxalate 5 mg 03/17/21 09:00 03/17/21 10:28 Escitalopram Oxalate 5 Mg Tablet PO 5 mg DAILY [facility] Administration Gabapentin 600 mg 03/16/21 21:00 03/16/21 21:18 Gabapentin 600 Mg Tablet PO 600 mg BEDTIME [facility] Administration Gabapentin 300 mg 03/17/21 06:30 03/17/21 12:40 Gabapentin 300 Mg Capsule PO 300 mg BID@0630,1200 [facility] Administration Ceftriaxone Sodium 1 gm/ 50 mls @ 100 mls/hr 03/15/21 12:00 03/17/21 13:08 Sodium Chloride IV Infused Q24H W[facility] Infusion Sodium Chloride 500 mls @ 50 mls/hr 03/17/21 13:30 03/17/21 13:32 Ns IV 03/17/21 23:29 50 mls/hr .Q10H [facility] Administration Insulin Human Lispro 0 unit 03/15/21 07:30 03/17/21 17:02 Insulin Lispro 100 Unit/Ml 3 Ml Vial SUBCUT 2 unit QIDACHS [facility] Administration Protocol Lactulose 20 gm 03/16/21 09:00 03/17/21 10:28 Lactulose 20 Gm/30 Ml Solution PO 20 gm DAILY [facility] Administration Lidocaine 1 patch 03/17/21 13:25 03/17/21 13:32 Lidocaine 4 % Patch Adh..Patch TRANSDERMA 1 patch DAILY [facility] Administration Protocol Melatonin 3 mg 03/16/21 21:00 03/16/21 21:18 Melatonin 3 Mg Tablet PO 3 mg BEDTIME [facility] Administration Omeprazole 40 mg 03/17/21 06:30 03/17/21 05:55 Omeprazole 40 Mg Capsule.Dr PO 40 mg DAILY@0630 [facility] Administration Pharmacy Consult 1 each 03/13/21 08:52 Consult Rx Perform Med Rec MISCELLANE ONCE PRN Consult order Pharmacy Consult 1 each 03/15/21 11:02 Consult Rx Perform Med Rec MISCELLANE ONCE PRN Consult order Senna 17.2 mg 03/15/21 18:00 03/17/21 10:26 Sennosides 8.6 Mg Tablet PO 17.2 mg BID [facility] Administration Sodium Biphosphate/Sodium Phosphate 133 ml 03/17/21 13:20 Sodium Phosphate,Benton-Dibasic 133 Ml Enema MS ONCE PRN Constipation Tamsulosin HCl 0.4 mg 03/16/21 21:00 03/16/21 21:19 Tamsulosin Hcl 0.4 Mg Capsule PO 0.4 mg BEDTIME [facility] Administration Tramadol HCl 50 mg 03/15/21 02:25 03/16/21 21:18 Tramadol Hcl 50 Mg Tablet PO 50 mg Q8H PRN Administration Pain, Moderate (Pain Scale 4-6 Tramadol HCl 50 mg 03/16/21 12:43 03/17/21 08:03 Tramadol Hcl 50 Mg Tablet PO 50 mg BID PRN Administration Pain Trazodone HCl 25 mg 03/16/21 21:00 03/16/21 21:18 Trazodone Hcl 25 Mg Halftab PO 25 mg BEDTIME [facility] Administration Home Medications Medication Instructions Recorded Confirmed Last Taken Type bisacodyl 5 mg PO BEDTIME 10/09/20 03/13/21 Unknown History bisacodyl 10 mg MS DAILY 10/09/20 03/13/21 Unknown History clobetasol 1 applic TOPICAL BID 10/09/20 03/13/21 Unknown History gabapentin 300 mg PO BID@0630,1200 10/09/20 03/13/21 Unknown History lactulose 30 ml PO DAILY 10/09/20 03/13/21 Unknown History metformin 500 mg PO BID 10/09/20 03/13/21 Unknown History tamsulosin 0.4 mg PO DAILY 10/09/20 03/13/21 Unknown History tramadol 50 mg PO BID PRN 10/09/20 03/13/21 Unknown History trazodone 25 mg PO BEDTIME 10/09/20 03/13/21 Unknown History acetaminophen 650 mg PO Q4H PRN 03/13/21 03/13/21 Unknown History amlodipine 7.5 mg PO DAILY 03/13/21 03/13/21 Unknown History aspirin 81 mg PO DAILY 03/13/21 03/13/21 Unknown History doxycycline hyclate 100 mg PO BID 03/13/21 03/13/21 Unknown History gabapentin 600 mg PO BEDTIME 03/13/21 03/13/21 Unknown History insulin lispro [Humalog U-100 sliding scale dose QIDACHS 03/13/21 Unknown History Insulin] melatonin 3 mg PO BEDTIME 03/13/21 03/13/21 Unknown History niacinamide 500 mg PO TID 03/13/21 03/13/21 Unknown History prednisone 10 mg PO DAILY 03/13/21 03/13/21 Unknown History rosuvastatin 10 mg PO DAILY 03/13/21 03/13/21 Unknown History sennosides [senna] 17.2 mg PO BID 03/13/21 03/13/21 Unknown History Physical Exam Vital Signs: Vital Signs: Last Vital Signs Temp 97.7 F 03/17/21 15:50 Pulse 100 03/17/21 15:50 Resp 18 03/17/21 15:50 BP 131/64 03/17/21 15:50 Pulse Ox 97 03/17/21 15:50 Body Mass Index 24.0 Const: General: cooperative, healthy appearing, comfortable and no acute distress Nutritional Appearance: average body habitus Orientation/consciousness: oriented to person, oriented to place and oriented to time Eyes: General: appearance normal, both eyes and all related structures Chest: Chest palpation & inspection: normal inspection of the chest Resp: Effort & Inspection: normal respiratory effort Cardio: Rate: regular rate GI: Inspection: Yes normal to inspection Skin: Hair: normal Neuro: General: oriented to person, oriented to place and oriented to time Extrem: General: Yes normal to inspection Results Labs Result diagrams: 03/17/21 14:25 03/15/21 06:10 Labs: Abnormal lab results 03/16/21 03/17/21 03/17/21 Range/Units 20:27 11:18 14:25 Hgb 11.3 L (14.0-18.0) g/dl Hct 34.3 L (42-52) % POC Glucose 214 H 130 H (60-115) mg/dL 03/17/21 Range/Units 16:20 Hgb (14.0-18.0) g/dl Hct (42-52) % POC Glucose 155 H (60-115) mg/dL Short CBC 03/17/21 Range/Units 14:25 Hgb 11.3 L (14.0-18.0) g/dl Hct 34.3 L (42-52) % Urine 03/13/21 Range/Units 10:27 Urine Color YELLOW Urine Appearance HAZY Urine pH 8.5 H (5.0-8.0) Ur Specific [place] 1.015 (1.005-1.025) Urine Protein 2+ H (NEG-TRACE) MG/DL Urine Glucose (UA) NEG (NEG) MG/DL All other labs normal. Assessment and Plan (1) Sepsis: Qualifiers: Sepsis type: sepsis due to unspecified organism Status: Acute (2) Acute UTI: Status: Acute (3) BPH (benign prostatic hyperplasia): Status: Acute Continue alpha-ashlie Add finasteride Can review in 4 weeks
--- NOTE | 2021-03-17 19:15 | PC.NURSE ---
1100- Pt had minimal output in carty, no recorded output for overnight. Pt bladder scanned for 21ml. Carty irrigated with few clots and perez blood coming out. Sandra HUGHES made aware. Urology consult placed. CBI ordered. Pt has no complaints at this time.
[2021-03-17] MEDS: Finasteride 5 MG TABLET PO (19:48)
[2021-03-17 20:34] LABS: Glucose, Whole Blood 154 mg/dL (60-115)
[2021-03-17] MEDS: Tamsulosin HCL 0.4 MG CAPSULE PO (21:25)
[2021-03-17] MEDS: Melatonin 3 MG TABLET PO (21:26)
[2021-03-17] MEDS: bisacodyL 5 MG TABLET.DR PO (21:26)
[2021-03-17] MEDS: traZODone HCL 25 MG HALFTAB PO (21:26)
[2021-03-17] MEDS: Gabapentin 600 MG TABLET PO (21:44)
[2021-03-17 23:36] VITALS: BP 114/59; PULSE 96; RESP 16; TEMP 36.2; O2SAT 94
[2021-03-18] MEDS: Gabapentin 300 MG CAPSULE PO ×2 (05:31→11:58)
[2021-03-18] MEDS: Omeprazole 40 MG CAPSULE.DR PO (05:31)
[2021-03-18] MEDS: traMADoL HCL 50 MG TABLET PO ×2 (05:31→15:36)
[2021-03-18 06:00] VITALS: BMI 24.3
[2021-03-18 07:05] LABS: MANUAL DIFF FLAG NO
[2021-03-18 07:14] LABS: Basophils Percent Auto 0.3 % (0-2); Eosinophils Absolute Auto 0.3 X10*3/uL (0.0-0.4); Eosinophils Percent Auto 4.1 % (0-4); Hematocrit 32.6 % (42-52); Hemoglobin 10.4 g/dl (14.0-18.0); Imm Gran Abs Auto 0.15 X10*3/uL (0.00-0.03); Imm Gran Pct Auto 2.1 % (0.0-0.4); Lymphocytes Absolute Auto 0.7 X10*3/uL (1.2-4.9); Lymphocytes Percent Auto 10.2 % (20-40); Mean Corpuscular HGB Conc 31.9 g/dl (31.0-36.0); Mean Corpuscular Hemoglobin 28.4 pg (27.0-33.0); Mean Corpuscular Volume 89.1 fL (80-98); Mean Platelet Volume 9.9 fL (9.4-12.4); Monocytes Absolute Auto 0.9 X10*3/uL (0.1-1.2); Monocytes Percent Auto 12.4 % (2-11); Neutrophils Percent Auto 70.9 % (45-73); Platelet Count 152 X10*3/uL (160-400); Red Blood Count 3.66 X10*6/uL (4.60-5.80); Red Cell Distribution Width 16.8 % (11.0-16.0); White Blood Count 7.1 X10*3/uL (4.8-10.8)
[2021-03-18 07:30] VITALS: BP 131/59; PULSE 86; RESP 18; TEMP 36.7; O2SAT 99
[2021-03-18 07:45] LABS: Anion Gap 13 (12-20); Blood Urea Nitrogen 18 mg/dL (9-16); Carbon Dioxide 24 mmol/L (22-29); Chloride 104 mmol/L (96-108); Creatinine Clr Calc Pharmacy 94.3; Estimated Glomerular Filt Rate > 60; Glucose Random 157 mg/dL (60-115); Potassium 3.3 mmol/L (3.3-5.1); Sodium 138 mmol/L (135-145)
[2021-03-18 07:57] LABS: Calcium 7.7 mg/dL (8.4-10.2)
[2021-03-18 08:25] LABS: Glucose, Whole Blood 139 mg/dL (60-115)
[2021-03-18 09:01] VITALS: BP 131/59; PULSE 86
[2021-03-18] MEDS: Escitalopram Oxalate 5 MG TABLET PO (09:01)
[2021-03-18] MEDS: Sennosides 8.6 MG TABLET 17.2 MG PO ×2 (09:01→21:32)
[2021-03-18] MEDS: amLODIPine Besylate 2.5 MG TABLET 7.5 MG PO (09:01)
[2021-03-18] MEDS: Finasteride 5 MG TABLET PO (09:01)
[2021-03-18] MEDS: Baclofen 20 MG TABLET PO ×3 (09:01→21:32)
[2021-03-18] MEDS: Atorvastatin Calcium 40 MG TABLET PO (09:01)
[2021-03-18] MEDS: Lactulose 20 GM/30 ML SOLUTION PO (09:02)
[2021-03-18] MEDS: Lidocaine 4 % Patch ADH..PATCH 1 PATCH TRANSDERMA (09:02)
[2021-03-18 11:34] LABS: Glucose, Whole Blood 198 mg/dL (60-115)
[2021-03-18] MEDS: Insulin Lispro 100 UNIT/ML 3 ML VIAL SUBCUT ×3 (11:58→21:31)
[2021-03-18] MEDS: cefTRIAXone sodium 1 GM in 0.9 % Sodium Chloride 50 ML IV (11:59)
--- NOTE | 2021-03-18 12:24 | P.PNIM_ITS ---
Subjective Subjective Date of Service: 03/18/21 <Sandra Blake NP - Last Filed: 03/18/21 15:58> 03/18/21 <Mary Schroeder MD - Last Filed: 03/18/21 16:43> Interval History: Follow up uti and hematuria. Shoulder pain, somehwat better with lidocaine patch and warm compress. <Sandra Blake NP - Last Filed: 03/18/21 15:58> Physical Exam Vital Signs: Vital Signs: Last Vital Signs Temp 98.1 F 03/18/21 07:30 Pulse 86 03/18/21 09:01 Resp 18 03/18/21 07:30 BP 131/59 L 03/18/21 09:01 Pulse Ox 99 03/18/21 07:30 Body Mass Index 24.3 <Sandra Blake NP - Last Filed: 03/18/21 15:58> Objective Data Current Medications Generic Name Dose Route Start Last Admin Trade Name Freq PRN Reason Stop Dose Admin Amlodipine Besylate 7.5 mg 03/16/21 09:00 03/18/21 09:01 Amlodipine Besylate 2.5 Mg Tablet PO 7.5 mg DAILY [facility] Administration Protocol Atorvastatin Calcium 40 mg 03/17/21 09:00 03/18/21 09:01 Atorvastatin Calcium 40 Mg Tablet PO 40 mg DAILY [facility] Administration Baclofen 20 mg 03/15/21 21:00 03/18/21 09:01 Baclofen 20 Mg Tablet PO 20 mg TID [facility] Administration Bisacodyl 5 mg 03/15/21 21:00 03/17/21 21:26 Bisacodyl 5 Mg Tablet.Dr PO 5 mg BEDTIME [facility] Administration Escitalopram Oxalate 5 mg 03/17/21 09:00 03/18/21 09:01 Escitalopram Oxalate 5 Mg Tablet PO 5 mg DAILY [facility] Administration Finasteride 5 mg 03/17/21 18:30 03/18/21 09:01 Finasteride 5 Mg Tablet PO 5 mg DAILY [facility] Administration Gabapentin 600 mg 03/16/21 21:00 03/17/21 21:44 Gabapentin 600 Mg Tablet PO 600 mg BEDTIME [facility] Administration Gabapentin 300 mg 03/17/21 06:30 03/18/21 11:58 Gabapentin 300 Mg Capsule PO 300 mg BID@0630,1200 [facility] Administration Ceftriaxone Sodium 1 gm/ 50 mls @ 100 mls/hr 03/15/21 12:00 03/18/21 11:59 Sodium Chloride IV 100 mls/hr Q24H [facility] Administration Insulin Human Lispro 0 unit 03/15/21 07:30 03/18/21 11:58 Insulin Lispro 100 Unit/Ml 3 Ml Vial SUBCUT 2 unit QIDACHS [facility] Administration Protocol Lactulose 20 gm 03/16/21 09:00 03/18/21 09:02 Lactulose 20 Gm/30 Ml Solution PO 20 gm DAILY [facility] Administration Lidocaine 1 patch 03/17/21 13:25 03/18/21 09:02 Lidocaine 4 % Patch Adh..Patch TRANSDERMA 1 patch DAILY [facility] Administration Protocol Melatonin 3 mg 03/16/21 21:00 03/17/21 21:26 Melatonin 3 Mg Tablet PO 3 mg BEDTIME [facility] Administration Omeprazole 40 mg 03/17/21 06:30 03/18/21 05:31 Omeprazole 40 Mg Capsule. PO 40 mg DAILY@0630 [facility] Administration Pharmacy Consult 1 each 03/13/21 08:52 Consult Rx Perform Med Rec MISCELLANE ONCE PRN Consult order Pharmacy Consult 1 each 03/15/21 11:02 Consult Rx Perform Med Rec MISCELLANE ONCE PRN Consult order Senna 17.2 mg 03/15/21 18:00 03/18/21 09:01 Sennosides 8.6 Mg Tablet PO 17.2 mg BID [facility] Administration Sodium Biphosphate/Sodium Phosphate 133 ml 03/17/21 13:20 Sodium Phosphate,[place]-Dibasic 133 Ml Enema [place] ONCE PRN Constipation Tamsulosin HCl 0.4 mg 03/16/21 21:00 03/17/21 21:25 Tamsulosin Hcl 0.4 Mg Capsule PO 0.4 mg BEDTIME [facility] Administration Tramadol HCl 50 mg 03/15/21 02:25 03/18/21 05:31 Tramadol Hcl 50 Mg Tablet PO 50 mg Q8H PRN Administration Pain, Moderate (Pain Scale 4-6 Tramadol HCl 50 mg 03/16/21 12:43 03/17/21 08:03 Tramadol Hcl 50 Mg Tablet PO 50 mg BID PRN Administration Pain Trazodone HCl 25 mg 03/16/21 21:00 03/17/21 21:26 Trazodone Hcl 25 Mg Halftab PO 25 mg BEDTIME [facility] Administration <Sandra Blake NP - Last Filed: 03/18/21 15:58> Labs CBC & Chem 7: : 03/18/21 06:48 03/18/21 06:48 <Sandra Blake NP - Last Filed: 03/18/21 15:58> Microbiology Microbiology Results: Microbiology 03/13/21 Unknown Urine Nunez [place] Urine Culture - Final Proteus mirabilis 03/13/21 09:50 Blood - Venous Blood Culture - Final Proteus mirabilis 03/13/21 09:30 Blood - Venous Blood Culture - Final Proteus mirabilis <Sandra Blake NP - Last Filed: 03/18/21 15:58> Assessment and Plan (1) Acute UTI: Status: Acute <Sandra Blake NP - Last Filed: 03/18/21 15:58> Assessment and Plan: This is a 75-year-old male with the past medical history of advance MS, 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 He was initially treated in the intensive care unit with vasopressors and IV antibiotics and was subsequently transferred out overnight on 03/14/2021. Urinary tract infection in the setting of chronic Nunez catheter. -2/2 Proteus bacteremia. -Ceftriaxone -Plan for discharge on cefuroxime Hematuria. Chronic catheter. Catheter change in the intensive care. CBI stopped last night, still with hematuria this morning. -Small clots irrigated -follow cbc, hold asa -continue CBI -urology following rec adding finesteride Constipation. Patient reported no BM in 5 days. -Fleets -continue senna and lactulose Shoulder pain -Lidocaine patch -warm compress Septic shock. Resolved. Status post vasopressors in the intensive care unit due to urinary tract infection and resultant Gram-negative bacteremia Acute Kidney Injury. Secondary to infection. improved with fluids + vasopressors -follow BMP Toxic/Metabolic encephalopathy. Secondary to infection. Improved Acute Anemia. probably dilutional from fluids. no perez bleeding noted -trend CBC -PPI MS continue baseline meds Chronic wounds. Present on admission -continue local wound care DISPO[facility],or when hematuria clears DNR/DNI Attending: Dr. Schroeder <Sandra Blake NP - Last Filed: 03/18/21 15:58>
[2021-03-18 15:27] VITALS: BP 119/60; PULSE 91; RESP 18; TEMP 36.3; O2SAT 98
[2021-03-18 16:29] LABS: Glucose, Whole Blood 216 mg/dL (60-115)
--- NOTE | 2021-03-18 18:35 | PC.NURSE ---
0925- CBI was clamped all night. Urine currently dark red color with some shreds/small clots in bag. There is about 100-200ml in bag. Sandra HUGHES notified, at bedside to see patient. CBI restarted. 1015- Pt c/o of feeling wet. Water noted to be leaking around carty. Carty hand irrigated with total of 60ml. Small clots removed. CBI resumed. 1400- Urine has been clear with no clots since hand irrigated. Sandra HUGHES notified. CBI clamped per request by SAUL. 1800- About 250ml clear yellow urine in carty bag. Appears what is in tube having trouble draining. Hand irrigated with 200ml clear yellow urine coming out, with small shreds. No signs of hematuria. Pt has no complaints at this time.
[2021-03-18] MEDS: Acetaminophen 325 MG TABLET 650 MG PO (19:51)
[2021-03-18 20:40] LABS: Glucose, Whole Blood 172 mg/dL (60-115)
[2021-03-18] MEDS: bisacodyL 5 MG TABLET.DR PO (21:32)
[2021-03-18] MEDS: Melatonin 3 MG TABLET PO (21:32)
[2021-03-18] MEDS: traZODone HCL 25 MG HALFTAB PO (21:32)
[2021-03-18] MEDS: Tamsulosin HCL 0.4 MG CAPSULE PO (21:32)
[2021-03-18] MEDS: Gabapentin 600 MG TABLET PO (21:32)
--- NOTE | 2021-03-18 23:01 | PC.NURSE ---
pt c/o 06/09 headache requesting tylenol.no tylenol ordered. notified.ordered tylenol prn.given at 1950 with good effect.
[2021-03-18 23:12] VITALS: BP 105/57; PULSE 83; RESP 18; TEMP 36.4; O2SAT 95
[2021-03-19 06:00] VITALS: BMI 24.1
[2021-03-19] MEDS: Omeprazole 40 MG CAPSULE.DR PO (06:01)
[2021-03-19] MEDS: Gabapentin 300 MG CAPSULE PO ×2 (06:02→11:32)
[2021-03-19 07:31] VITALS: BP 119/57; PULSE 84; RESP 18; TEMP 37.1; O2SAT 96
[2021-03-19 07:57] LABS: Glucose, Whole Blood 136 mg/dL (60-115)
--- NOTE | 2021-03-19 08:58 | P.DS_ITS ---
DS: Providers Provider Date of Service: 03/19/21 Date of admission: 03/13/21 16:10 Date of discharge: 03/19/21 Primary care physician: Get Martin MD Admitting clinician: Markie Landa Attending physician on admission: Adi Reeves Consults: 03/13/21 16:28 Consult to Infectious Diseases Stat Consulting Provider: Emily Ramsey Reason for consultation: Urosepsis with ESBL history and carbapenem allergy Has provider been notified: Yes 03/17/21 13:16 Consult to Urology Routine Consulting Provider: Miguel Angel Bartholomew Reason for consultation: hematuria Has provider been notified: No Attending physician on discharge: Westley Garcia Discharging clinician: Sandra Blake DS: Diagnosis Discharge Diagnosis (1) Septic shock: Status: Acute (2) Acute UTI: Status: Acute (3) Hematuria: Status: Acute (4) Anemia: Status: Acute (5) Constipation: Status: Acute (6) Shoulder pain: Status: Acute (7) Wound of foot: Status: Acute DS: Medications Discharge Medications Home Medications: Home Medications Medication Instructions Recorded Confirmed bisacodyl 5 mg PO BEDTIME 10/09/20 03/13/21 bisacodyl 10 mg VT DAILY 10/09/20 03/13/21 clobetasol 1 applic TOPICAL BID 10/09/20 03/13/21 gabapentin 300 mg PO BID@0630,1200 10/09/20 03/13/21 lactulose 30 ml PO DAILY 10/09/20 03/13/21 metformin 500 mg PO BID 10/09/20 03/13/21 tamsulosin 0.4 mg PO DAILY 10/09/20 03/13/21 tramadol 50 mg PO BID PRN 10/09/20 03/13/21 trazodone 25 mg PO BEDTIME 10/09/20 03/13/21 acetaminophen 650 mg PO Q4H PRN 03/13/21 03/13/21 amlodipine 7.5 mg PO DAILY 03/13/21 03/13/21 aspirin 81 mg PO DAILY 03/13/21 03/13/21 doxycycline hyclate 100 mg PO BID 03/13/21 03/13/21 gabapentin 600 mg PO BEDTIME 03/13/21 03/13/21 insulin lispro [Humalog U-100 sliding scale dose QIDACHS 03/13/21 Insulin] melatonin 3 mg PO BEDTIME 03/13/21 03/13/21 niacinamide 500 mg PO TID 03/13/21 03/13/21 prednisone 10 mg PO DAILY 03/13/21 03/13/21 rosuvastatin 10 mg PO DAILY 03/13/21 03/13/21 sennosides [senna] 17.2 mg PO BID 03/13/21 03/13/21 Previous Rx's Medication Instructions Recorded Levemir U-100 Insulin 10 unit SUBCUT BEDTIME #0 ml 10/11/20 citalopram 10 mg PO DAILY #0 tab 10/11/20 baclofen 20 mg PO TID #0 tab 10/12/20 omeprazole 20 mg PO DAILY@0630 #30 cap 10/12/20 DS: Summary Hospital Course Hospital Course: HP as per admitting provider Patient with underlying history of MS was nonmobile and is a resident of a senior living facility for the past 2 years due to debility and inability to ambulate, history of multiple allergies with most recent reaction to ertapenem (blisters), chronic indwelling catheter and UTIs, prior sepsis, diabetes among others presented to the emergency room this evening with reported complaints of altered mental status and decreased responsiveness. According to report, this is how the patient normally is when he has an infection. His vital signs were abnormal with low blood pressure but otherwise afebrile. In the emergency room, the workup revealed white count of 29.6, H&H of 13.9 and 42 respectively, platelets 231, left shift with absolute neutrophils of 26. Chemistry reveals no electrolyte abnormality, BUN of 42 and creatinine 2.58 when his baseline is ( 1.01), lactic acid 5.1 and subsequent of 2.4 by 1.8. Troponin 40. Urinalysis consistent with a UTI and hematuria, 2+ leukocyte esterase, 10-14 with blood cells per high-power field and 4+ bacteria. Stool occult blood negative and influenza a, coronavirus negative. Patient was treated with cefepime and Macrobid, was given IV fluids and started on Levophed. Head CT revealed no abnormalities . Septic shock. Patient debilitated, mainly bedbound with history multiple sclerosis and living at long-term care facility. Initially presented in septic shock with hypotension , leukocytosis, lactic acidosis, positive urinalysis.. Treated with vasopressors for hypotension in the intensive care unit. antibiotic treatment initiated for urinary tract infection, initially treated with Zyvox and cefepime. Urinary tract infection. Chronic indwelling Nunez catheter. Gram-negative bacteremia, Proteus Mirabilis. Treated with cefepime, rocephin and Zyvox while inpatient. Will continue with cefuroxime as outpatient for a total of 14 days. Hematuria. History of indwelling Nunez catheter. Had catheter changed in the ICU and soon after developed hematuria. CBI was initiated with good result once clamped he developed again hematuria and CBI was initiated again. The 3rd round of CBI cleared up his urine and he has remained hematuria free over the last 24 hours. He was also seen and evaluated by Urology during this admission With no further recommendations for treatments however finasteride was added to tamsulosin. Anemia . Patient had no perez bleeding. No need for blood transfusion during admission. Secondary to dilution from IV fluids. Chronic constipation. History of multiple sclerosis. Treated with bowel regimen including fleets enema. Last bowel movement on 03/17/2021 according to the patient's this is on track with the patient has regular bowel schedule. Toxic metabolic encephalopathy. Secondary to septic shock and urinary tract infection. Resolved fairly quickly once infection treatment was initiated. Shoulder pain. Patient complained of right shoulder pain. Shoulder x-ray was obtained on 03/18/2021 showed mottled appearance of bones possibly reflecting in full to today of neoplastic marrow such as myeloma. Discussion with oncologist. Immunofixation, [place] light chain and beta 2 micro globulin ordered as well as bone scan. He will follow up [place] [facility] [place] as [place]. Attending: Dr. Garcia Time Spent with Patient Time attestation: Total time spent providing and/or coordinating discharge services: Discharge coordination time: Greater than 30 minutes Physical Exam Vital Signs: Vital Signs: Last Vital Signs Temp 98.7 F 03/19/21 07:31 Pulse 84 03/19/21 07:31 Resp 18 03/19/21 07:31 BP 119/57 L 03/19/21 07:31 Pulse Ox 96 03/19/21 07:31 Body Mass Index 24.1 Appearing in no acute distress head is normocephalic atraumatic eyes pupils are PERRLA sclera is anicteric mouth throat mucous membranes are intact and moist lung sounds are clear to auscultation heart regular rate rhythm, clear S1, S2 positive bowel sounds, abdomen is soft, nontender neuro patient is alert x3, no focal deficits Skin dry flaky feet with some areas of chronic skin tears DS: Data Data Completed and Pending Labs on day of discharge: Laboratory Results - last 24 hr 03/18/21 03/18/21 03/18/21 11:24 16:19 20:28 POC Glucose 198 H 216 H 172 H 03/19/21 07:33 POC Glucose 136 H Discharge Plan Discharge Anticipated Discharge Date/Time: 03/19/21 09:21 Patient Disposition: Xfer SNF Discharge Diagnosis: UTI Hematuria Anemia Septic shock Referrals: Samantha Mott [Outside] - 1 Week Get Martin MD [Primary Care Provider] - 1 Week Discharge Medications: New finasteride [Proscar] 5 mg Tablet 5 mg PO DAILY Qty: 30 RF: 0 cefuroxime axetil 500 mg tablet 500 mg PO BID Qty: 16 RF: 0 Continued bisacodyl 10 mg Suppository 10 mg VT DAILY RF: 0 bisacodyl 5 mg Tablet 5 mg PO BEDTIME RF: 0 clobetasol 0.05 % Cream 1 applic TOPICAL BID RF: 0 gabapentin 300 mg Capsule 300 mg PO BID@0630,1200 RF: 0 lactulose 10 gram/15 mL Solution 30 ml PO DAILY RF: 0 trazodone 50 mg Tablet 25 mg PO BEDTIME RF: 0 tramadol 50 mg Tablet 50 mg PO BID PRN (Reason: Pain) RF: 0 tamsulosin 0.4 mg Capsule 0.4 mg PO DAILY RF: 0 Levemir U-100 Insulin 100 unit/mL Solution 10 unit SUBCUT BEDTIME Qty: 0 RF: 0 citalopram 20 mg Tablet 10 mg PO DAILY Qty: 0 RF: 0 baclofen 20 mg Tablet 20 mg PO TID Qty: 0 RF: 0 omeprazole 20 mg Capsule,Delayed Release(Dr/Ec) 20 mg PO DAILY@0630 Qty: 30 RF: 0 sennosides [senna] 8.6 mg Tablet 17.2 mg PO BID RF: 0 acetaminophen 325 mg Tablet 650 mg PO Q4H PRN (Reason: Pain) RF: 0 gabapentin 600 mg Tablet 600 mg PO BEDTIME RF: 0 amlodipine 2.5 mg Tablet 7.5 mg PO DAILY RF: 0 melatonin 3 mg Tablet 3 mg PO BEDTIME RF: 0 niacinamide 500 mg Tablet 500 mg PO TID RF: 0 aspirin 81 mg Tablet,Chewable 81 mg PO DAILY RF: 0 rosuvastatin 10 mg Tablet 10 mg PO DAILY RF: 0 prednisone 10 mg Tablet 10 mg PO DAILY RF: 0 insulin lispro [Humalog U-100 Insulin] 100 unit/mL Solution QIDACHS RF: 0 Held metformin 500 mg Tablet 500 mg PO BID RF: 0 Hold Instructions: Resume on 03/25/21. Re-check renal function prior to restarting Metformin Discontinued doxycycline hyclate 100 mg Tablet 100 mg PO BID RF: 0 Discharge Orders: Discharge Order (Routine); Ordered 03/19/21 Ordered By: Sandra Blake Diet: advance to usual diet Activity on Discharge: As tolerated Stand Alone Forms: Patient Portal Discharge page Care Plan Goals: Resolution of urinary symptoms Health Concerns: Proteus mirabilis UTI Anemia Hematuria Septic shock constipation Acute kidney injury Encephalopathy foot wounds Plan of Treatment: Take Ceftin for 8 more days twice daily Follow up with oncologist Dr. Bernard for test results [phone] Assessment: See discharge summary
[2021-03-19] MEDS: Finasteride 5 MG TABLET PO (09:25)
[2021-03-19] MEDS: Atorvastatin Calcium 40 MG TABLET PO (09:25)
[2021-03-19 09:26] VITALS: BP 119/57; PULSE 84
[2021-03-19] MEDS: amLODIPine Besylate 2.5 MG TABLET 7.5 MG PO (09:26)
[2021-03-19] MEDS: Escitalopram Oxalate 5 MG TABLET PO (09:26)
[2021-03-19] MEDS: Sennosides 8.6 MG TABLET 17.2 MG PO (09:26)
[2021-03-19] MEDS: Lactulose 20 GM/30 ML SOLUTION PO (09:26)
[2021-03-19] MEDS: Lidocaine 4 % Patch ADH..PATCH 1 PATCH TRANSDERMA (09:26)
[2021-03-19] MEDS: Baclofen 20 MG TABLET PO (09:26)
[2021-03-19] MEDS: cefTRIAXone sodium 1 GM in 0.9 % Sodium Chloride 50 ML IV (11:32)
[2021-03-19] MEDS: Insulin Lispro 100 UNIT/ML 3 ML VIAL SUBCUT (11:37)
[2021-03-19 11:57] LABS: Glucose, Whole Blood 207 mg/dL (60-115)
--- NOTE | 2021-03-19 12:05 | MHC.CM.PN ---
Addendum entered by Corina Okeefe RN 03/19/21 12:19: HOSPITALIST, [facility]URSING AND SN[facility] AWARE OF PT'S DISPO. Addendum entered by Cornia Okeefe RN 03/19/21 12:16: CM CONTACTED [facility] [employer] AT 12:17PM [phone], PER JACKIE THEY CAN SET UP A 1:30PM TRANSPORT W/[facility] AND WILL CALL BACK IF THERE ARE ANY ISSUES. Original Note: PT DISCHARGING TODAY WILL RETURN TO [place], [place] TO ARRANGE TRANSPORT, [facility] REQUESTING 1:30PM TRANSPORT TIME, PER JACKIE FROM [place] TRANSPORT WILL BE ARRANGED AFTER 2ND COVID TEST RESULTS ARE IN, RESULTS PENDING AT TIME OF THIS NOTE.
[2021-03-19 12:11] LABS: COVID-19 Test Negative (Negative)
--- NOTE | 2021-03-19 12:50 | MHC.SLORD ---
Speech Language Pathology Order Status: Per MD notes, patient is to be discharged today. [employer]PER[employer] spoke with RN this morning, who reports that patient is tolerating current diet textures without difficulty. Patient is recommended CHOPPED/ADVANCED (NDD3) solids and THIN liquids.
[2021-03-20 13:46] LABS: Beta-2 Microglobulin, Serum 3.76 mg/L (< OR = 2.51); IgA 201 mg/dL (70-320); IgG 748 mg/dL (600-1540); IgM 71 mg/dL (50-300)
[2021-03-22 22:11] LABS: Kappa, Serum 171 mg/dL (176-443); Kappa/Lambda Ratio, Serum 1.46 (1.29-2.55); Lambda, Serum 117 mg/dL (91-240)
== END 2021-03-19 13:45 | disposition skilled nursing facility (03) | DRG 871 ==
LOC: HO.ED 08:54 → HO.ICU 16:52 → HO.S3 03-15 03:25
PROVIDERS: Hospitalist; Nurse Practitioner Acute Care; Physician Assistant; Physician Assistant Medical; Admitting Provider Anesthesiology; Emergency Provider Emergency Medicine; PCP Family Medicine Geriatric Medicine; Visit Provider Family Medicine
DX: A41.4 Sepsis due to anaerobes (principal); R65.21 Severe sepsis with septic shock; G92 Toxic encephalopathy; N39.0 Urinary tract infection, site not specified; N17.9 Acute kidney failure, unspecified; F05 Delirium due to known physiological condition; E44.1 Mild protein-calorie malnutrition; N40.0 Benign prostatic hyperplasia without lower urinary tract symptoms; Z20.822 Contact with and (suspected) exposure to COVID-19; B35.3 Tinea pedis; F32.9 Major depressive disorder, single episode, unspecified; E86.0 Dehydration; G35 Multiple sclerosis; E11.9 Type 2 diabetes mellitus without complications; R19.5 Other fecal abnormalities; R31.9 Hematuria, unspecified; K59.00 Constipation, unspecified; Z74.01 Bed confinement status; K59.09 Other constipation; B96.4 Proteus (mirabilis) (morganii) as the cause of diseases classified elsewhere; D64.9 Anemia, unspecified; Z68.24 Body mass index [BMI] 24.0-24.9, adult; Z87.891 Personal history of nicotine dependence; Z79.4 Long term (current) use of insulin; Z79.82 Long term (current) use of aspirin; Z79.891 Long term (current) use of opiate analgesic; Z79.899 Other long term (current) drug therapy; Z66 Do not resuscitate
CPT/HCPCS: 0241U; 36415; 70450; 71045; 71110; 73030; 77075; 80048; 80053; 80076; 81001; 81003; 82232; 82272; 82784; 82947; 83605; 83690; 83735; 83880; 83883; 84100; 84145; 84484; 85014; 85018; 85025; 85027; 85610; 85730; 86140; 86334; 87040; 87077; 87086; 87088; 87186; 87205; 87635; 92610; 93005; 96365; 99285; 99291; C1758; J0692; J0696; J1170; J2020; J2543

== ENCOUNTER → 2021-04-11 09:39 | Outpatient (BNVA) | payer MEDICARE, OTHER, SELFPAY | PROVIDERS: PCP Family Medicine Geriatric Medicine; Visit Provider Urology | DX: N39.0 Urinary tract infection, site not specified (principal); N31.9 Neuromuscular dysfunction of bladder, unspecified | CPT/HCPCS: 99212 ==

== ENCOUNTER 2021-05-14 13:32 | Inpatient (IN) | payer OTHER, SELFPAY ==
[2021-05-14] VITALS (26 sets, daily range): BP systolic 65–144; BP diastolic 31–69; PULSE 106–138; RESP 13–22; TEMP 36.8–38.3; O2SAT 91–100; BMI 26.1; BMI 26.6
--- NOTE | ~2021-05-14 | FL_ITS ---
EXAMINATION: XR BARIUM SWALLOW CLINICAL INFORMATION: Aspiration COMPARISON: None TECHNIQUE: Fluoroscopic guidance was provided for modified barium swallow performed by the speech and hearing department. FINDINGS: There is retention in the valleculae with multiple media. No aspiration or penetration is seen with any media. FLUOROSCOPY TIME: 1.8 minutes DOSE AREA PRODUCT: 7 marr per centimeter squared FL/FL barium swallow modified IMPRESSION: Fluoroscopy guidance for modified barium swallow. Retention with multiple media. No aspiration or penetration seen.
--- NOTE | ~2021-05-14 | XR_ITS ---
EXAMINATION: XR CHEST CLINICAL INFORMATION: Hypoxia, hypotension. Assess for pneumonia. COMPARISON: Chest radiographs 03/19/2021, 03/13/2021, 10/09/2020 TECHNIQUE: Portable upright AP view of the chest was obtained. FINDINGS: Patient is slightly rotated to the left. There is tapering at the cardiac apex similar to prior studies, likely areolar tissue. There is no airspace consolidation or air bronchograms. The vascularity is normal. There is no hyperinflation, infiltrate, pneumothorax, or pleural reaction. The hilar and mediastinal contours and bony structures are unremarkable. XR/XR chest 1V IMPRESSION: Unremarkable examination.
--- NOTE | ~2021-05-14 | XR_ITS ---
EXAMINATION: XR CHEST CLINICAL INFORMATION: Line Replacement COMPARISON: Chest x-ray 05/14/2021. CT chest 05/14/2021 TECHNIQUE: Frontal portable view of the chest was obtained. 5:55 PM FINDINGS: Right IJ line at the base of the right side of the heart near the level of the diaphragm in the region of right atrium. There is no pneumothorax. Lung volume is low. This accentuates the bronchovascular markings. Allowing for low inspiratory effort no significant pulmonary vascular congestion. No focal consolidation or pleural effusion. XR/XR chest 1V IMPRESSION: Right IJ catheter tip at the level the diaphragm at the right side of the heart. There is no pneumothorax.
--- NOTE | ~2021-05-14 | XR_ITS ---
EXAMINATION: XR CHEST CLINICAL INFORMATION: Fluid overload COMPARISON: Previous day TECHNIQUE: Frontal view of the chest was obtained. FINDINGS: Endotracheal tube terminates 2.4 cm above the steffanie. Right internal jugular central venous catheter terminates at the superior cavoatrial junction. Left basilar subsegmental atelectasis. No discrete consolidation. No pleural effusion or pneumothorax. Stable cardiac mediastinal silhouette. The XR/XR chest 1V IMPRESSION: No evidence of decompensated heart failure. Endotracheal tube terminates 2.4 cm above the steffanie.
--- NOTE | ~2021-05-14 | XR_ITS ---
EXAMINATION: XR CHEST CLINICAL INFORMATION: TLC placement COMPARISON: Chest x-ray today 0.50 5:00 PM TECHNIQUE: Frontal portable view of the chest was obtained. 2250 hours FINDINGS: Right-sided triple-lumen catheter has been pulled back since prior exam today. Catheter tip now at the caval atrial junction. There is no pneumothorax. XR/XR chest 1V IMPRESSION: Right-sided triple-lumen catheter tip now cavoatrial junction region. There is no pneumothorax.
--- NOTE | ~2021-05-14 | CT_ITS ---
EXAMINATION: CT CHEST AND CT ABDOMEN AND PELVIS WITHOUT CONTRAST. CLINICAL INFORMATION: Short of breath, hypoxia. Rule out aspiration. COMPARISON: Chest x-ray 05/14/2021. Bilateral Ribs 03/19/2021. CTA chest 08/13/2020. TECHNIQUE: 5 mm thin axial and reformatted 3 mm thin sagittal coronal images of chest, abdomen and pelvis were obtained without contrast. DLP 1738 mGy. FINDINGS: The exam is suboptimal due to breathing artifact especially on the chest exam. Chest: The lungs are expanded with dependent upper lobe and lower lobe atelectatic changes. Minimal atelectatic changes are seen in the lingula as well. There is left lower lobe focal consolidation axial image 41/6 infiltrate versus underlying lesion. There is bilateral posterior pleural thickening slightly prominent on the left side. There is no pleural effusion or pneumothorax. The thyroid lobes are symmetrical and normal. The central trachea and the bronchi widely patent. Heart size and the great vessels are normal caliber. No abnormal size mediastinal lymph nodes or mass seen. No pericardial effusion seen either. There is no abnormal axilla lymph nodes. The chest wall appears unremarkable. Abdomen and pelvis: The liver is homogeneous in density, normal size and contour. No focal lesion seen. There is no intrahepatic ductal dilatation. The gallbladder is unremarkable. Visualized spleen, pancreas and bilateral adrenal glands are unremarkable. Both kidneys are normal size, shape and position. No radiopaque renal calculi or hydronephrosis seen. There is mild bilateral perinephric stranding likely old. The abdominal aorta is normal caliber. No abnormal retroperitoneal or mesenteric lymph nodes seen. The bowel gas pattern is nonspecific with small air-fluid level in the right ascending colon. Mildly prominent stomach with recently ingested liquids is noted. There is mild bilateral ascites. There is a Nunez's catheter and mildly prominent bladder. There is diffuse bladder wall thickening with moderate haziness surrounding the left bladder and appears contiguous to bilateral paracolic gutters measuring fluid density( -2.75 HU). A ruptured intraperitoneal left superior bladder wall should be considered. Differential diagnoses may include a seroma, less likely lymphocele as there is no surgical changes. There is no intra-abdominal free air. The abdominal wall is unremarkable. Bone windows reveal mild ventral spondylosis. No lytic or sclerotic process seen. CT/CT abdomen pelvis wo con IMPRESSION: Bilateral dependent upper lobe and lower lobe atelectatic changes. Minimal atelectatic changes are seen in lingula as well. Mild posterior pleural thickenings more prominent on the left side. There is a diffuse bladder wall thickening with a Nunez's catheter within. Superior and to the left of bladder is intraperitoneal haziness with fluid collection and stranding extending bilateral paracolic gutter. The findings are highly suspicious for a ruptured urinary bladder, seroma or less likely lymphocele. This can be confirmed with cystography or cystoscopy. There is small amount of free fluid but no free air seen.
--- NOTE | ~2021-05-14 | XR_ITS ---
EXAMINATION: XR CHEST CLINICAL INFORMATION: Cough. Follow-up infiltrate. COMPARISON: Chest x-ray 05/16/2021 TECHNIQUE: Frontal view of the chest was obtained. 1658 hours FINDINGS: Tubes and lines: 1. Right IJ catheter tip at caval atrial junction. 2. Nasogastric tube catheter tip in stomach. Continued density at the peripheral left lung base partially silhouetting diaphragm of left basilar infiltrate/atelectasis and/or pleural effusion. No change since prior chest x-ray. The right lung remains normally aerated. There is no pulmonary vascular congestion. XR/XR chest 1V IMPRESSION: 1. Right IJ catheter tip at caval atrial junction. 2. Nasogastric tube catheter tip in stomach. 3. Persistent left basilar density
--- NOTE | ~2021-05-14 | XR_ITS ---
EXAMINATION: XR CHEST CLINICAL INFORMATION: Placement of OG-tube. COMPARISON: Chest 05/15/2021 TECHNIQUE: Frontal view of the chest was obtained. FINDINGS: The lungs are somewhat expanded with patchy opacity left lung base likely infiltrate/atelectasis or effusion. Heart size normal. New right jugular central catheter tip remains in mid SVC. Needle enteric tube tip is in the fundus. Tip of previously inserted endotracheal tube is 3.4 cm above the steffanie. No gross bony abnormality seen. XR/XR chest 1V IMPRESSION: Patchy opacity left lung base likely infiltrate/atelectasis and/or effusion. Right jugular central catheter and enteric tubes are in satisfactory position. No change in the endotracheal tube tip.
[2021-05-14 14:11] LABS: Glucose, Whole Blood 148 mg/dL (60-115)
--- NOTE | 2021-05-14 14:13 | ED_ITS ---
HPI - General Adult General Chief complaint: Nausea/Vomiting/Diarrhea Stated complaint: VOMITING COFFEEGROUDS Time Seen by Provider: 05/14/21 13:54 Source: patient Mode of arrival: EMS Limitations: altered mental status History of Present Illness HPI narrative: 76-year-old male who presents emergency department for evaluation of possible aspiration pneumonia, hypoxia and coffee-ground emesis. Information mainly comes from EMS and from nursing staff. The patient has multiple sclerosis and chronic indwelling Nunez. He [facility]. Today he developed nausea and then had coffee-ground emesis. Shortly after vomiting the patient became hypoxic with O2 saturations dropping to the 70% range. He was placed on 5 L of oxygen via nasal cannula and his O2 saturation came up to 82%. He was then placed on a non-rebreather. The nursing facility staff also were reported that the patient had a large liquid bowel movement. EMS vitals revealed a blood pressure of 200/110, pulse of 135. Point of care glucose was 183. Related Data Home Medications Medication Instructions Recorded Confirmed bisacodyl 10 mg MD DAILY 10/09/20 03/28/21 gabapentin 300 mg PO BID@0630,1200 10/09/20 03/28/21 metformin 500 mg PO BID 10/09/20 03/28/21 tramadol 50 mg PO BID PRN 10/09/20 03/28/21 trazodone 25 mg PO BEDTIME 10/09/20 03/28/21 acetaminophen 650 mg PO Q4H PRN 03/13/21 03/28/21 amlodipine 7.5 mg PO DAILY 03/13/21 03/28/21 aspirin 81 mg PO DAILY 03/13/21 03/28/21 gabapentin 600 mg PO BEDTIME 03/13/21 03/28/21 insulin lispro [Humalog U-100 100 sliding scale dose SUBCUT 03/13/21 03/28/21 Insulin] QIDACHS niacinamide 500 mg PO TID 03/13/21 03/28/21 prednisone 10 mg PO DAILY 03/13/21 03/28/21 rosuvastatin 10 mg PO DAILY 03/13/21 03/28/21 alum-mag hydroxide-simeth [Maalox ml 04/20/21 Plus] doxycycline hyclate 100 mg PO DAILY 04/20/21 04/20/21 fluconazole 100 mg PO DAILY 04/20/21 04/20/21 nystatin-triamcinolone 1 appl TOPICAL BID 04/20/21 04/20/21 Previous Rx's Medication Instructions Recorded Levemir U-100 Insulin 10 unit SUBCUT BEDTIME #0 ml 10/11/20 citalopram 10 mg PO DAILY #0 tab 10/11/20 baclofen 20 mg PO TID #0 tab 10/12/20 ascorbic acid (vitamin C) 1,000 mg 1 g PO DAILY 90 Days #90 tab 04/11/21 tablet methenamine hippurate 1 gram tablet 1 g PO DAILY 90 Days #90 tab 04/11/21 Allergies Allergy/AdvReac Type Severity Reaction Status Date / Time Benzodiazepines Allergy Unknown UNKNOWN Verified 04/11/21 09:47 [BENZODIAZEPINES] dalfampridine [From AMPYRA] Allergy Unknown UNKNOWN Verified 04/11/21 09:47 duloxetine [From CYMBALTA] Allergy Unknown UNKNOWN Verified 04/11/21 09:47 ezetimibe [From ZETIA] Allergy Unknown UNKNOWN Verified 04/11/21 09:47 niacin [NIACIN] Allergy Unknown UNKNOWN Verified 04/11/21 09:47 pravastatin [PRAVASTATIN] Allergy Unknown UNKNOWN Verified 04/11/21 09:47 Vymfiqg-Kbl-Jds Reductase Allergy Unknown UNKNOWN Verified 04/11/21 09:47 Inhibitor [[id number] REDUCTASE INHIBITOR] lorazepam [From ATIVAN] AdvReac Severe EXCESSIVE Verified 04/11/21 09:47 SEDATION doxycycline [DOXYCYCLINE] AdvReac Mild esophogeal Verified 04/11/21 09:47 iritation methylprednisolone AdvReac Mild heartburn Verified 04/11/21 09:47 [From SOLU-MEDROL] ertapenem [From INVANZ] AdvReac Unknown possible Verified 04/11/21 09:47 cause of bullous pemphigoid Review of Systems Review of Systems: Yes Unobtainable due to mental status PMFSH Past Medical History Medical History BPH (benign prostatic hyperplasia) Chronic pain syndrome Chronic renal failure Dehydration Depression Diabetes mellitus type 2 in obese Multiple sclerosis Urinary tract infection Surgical History Hx of removal of cyst Family History Family History Family/Other Heart attack Father Diabetes Social History Social History Household Members: Other Household Members Other:: lives in [facility] Housing: Shelter Housing Other:: [facility] Alcohol intake: never Patient Tobacco Use Status: Tobacco use Unknown Cigarette Packs Per Day: 1 Use of substances other than those prescribed or required for medical reasons: No Advance Directives: Yes Advance Directives on File: Yes Advance Directives Date on File: 10/13/20 service: Yes Current occupational status: retired Physical Exam Vital Signs: Vital Signs: Last Vital Signs Temp 99 F 05/14/21 15:37 Pulse 118 H 05/14/21 17:33 Resp 16 05/14/21 17:33 BP 113/51 L 05/14/21 17:33 Pulse Ox 99 05/14/21 17:33 Oxygen Flow Rate 4 05/14/21 14:00 Body Mass Index 26.6 Const: Other: Chronically ill-appearing elderly male, lethargic but was oriented to person and place, he was able to tell me that he was here for shortness of breath. Lacked insight into other details of his presentation. HENMT: Head: Yes normal to inspection, Yes normocephalic and Yes atraumatic Ears: external ears normal General nose exam: Normal external nose present Face and sinus: Yes normal facial exam Mouth: Normal oral and palatal mucosa present Throat: Yes posterior oropharynx normal Eyes: Periorbital: periorbital findings normal Eyelids: Yes eyelids normal Conjunctivae: conjunctivae normal Sclerae: sclerae normal Corneas: corneas normal Direct Ophthalmoscopy: normal light reflex Neck: Neck: Yes full ROM, Yes no lymphadenopathy, Yes trachea midline and Yes supple Chest: Chest palpation & inspection: normal inspection of the chest and normal palpation of entire chest wall Resp: Other: Patient is tachypneic, diffuse rhonchorous sounds with rales at the bases, breath sounds are symmetric Cardio: Rate: tachycardic Rhythm: regular rhythm Heart sounds: S1 normal heart sound present, S2 normal heart sound present and no murmurs GI: Inspection: Yes normal to inspection Palpation (GI): Soft to palpation, nontender, no guarding, not rigid and No hepatosplenomegaly present : General: Yes no CVA tenderness Back/Spine/Pelvis: Back: no CVA tenderness Cervical Spine: normal cervical lordosis Thoracic/Lumbar Spine: thoracic and lumbar spine normal to inspection Skin: Other: Multiple bruises noted on the patient's skin Neuro: Other: Patient is oriented to person and place, he was able to tell me his name. Lacks insight into why he is here. Patient is able follow simple commands. He has generalized weakness and can move his extremities minimally ag ainst gravity. Course Course Course Narrative: 76-year-old male who presents emergency department for evaluation of coffee-ground emesis, hypoxic, and possible aspiration pneumonia. Patient vomited at his nursing facility and then became acutely hypoxic. In the emergency department, the patient's O2 saturation is 92-96% on 4 L via nasal cannula. He is hypotensive with a blood pressure of 85/49 . He is tachycardic with a pulse of 138. He is tachypneic with a respiratory rate of 22. I did order a septic workup on the patient. Given his hypotension he was ordered to get normal saline 30 milliliters/kilogram IV bolus. The patient will be treated with Zosyn 4.5 g IV and vancomycin 1000 mg IV. 1443: I did discuss the patient's presentation with his , Alyx Ardon. She states that the patient does want to be a full code and wants to be intubated and placed on ventilator if there is a chance for recovery. She states that during his last visit he was intubated and did recover. I did tell her that with a severe aspiration pneumonia with hypoxia, the chance of recovering on a ventilator is very low. She states that she wants to discuss the patient's code status with 1 of the nurses at [facility] and will call us back to let us know if there is a change in code status. Until that time, the patient will be a full code. 1629: Patient's laboratory evaluation revealed a normal CBC. Patient's bicarb was low at 19. BUN creatinine were elevated 21.95. Glucose was elevated 168. Bilirubin is elevated 1.4. LFTs are pending. Patient's lactic acid was elevated at 3.8. Chest x-ray revealed no acute process at this time. I am concerned that the patient has aspiration pneumonitis given his clinical presentation. The patient's H&H is stable so do not think that he has had an upper GI bleed. Possible the patient may have had a PE however given his poor kidney function, CT angiogram is not obtainable. I will discuss the patient's presentation with the covering hydrogen plant operations manager. 1710: The patient has labile blood pressure with episodes of hypotension, current systolic blood pressures 130. Patient's repeat lactic acid went up and is 4.2. I ordered normal saline x2 L. I will discuss these findings with the covering hydrogen plant operations manager. 1744: The patient was seen by the hydrogen plant operations manager, Dr. Wheat. He performed a bedside echocardiogram and the patient's IVC was full and his EF was 80% suggested he does not need any more fluid at this time. He recommended the patient be given maintenance fluids only therefore I stop the normal saline bolus and give the patient normal saline at 75 cc/hour. Given the patient's improvement of his blood pressure and his echocardiogram findings, the hydrogen plant operations manager also recommended against IV pressors at this time. The hydrogen plant operations manager is also recommended getting a CT scan of the patient's chest abdomen and pelvis without IV contrast to evaluate for other sources of sepsis. A urine sample will be sent for bacterial culture and for fungal culture. I will discuss the patient's presentation with the covering hospitalist. 1752: I did discuss the patient with the covering hospitalist, Dr. Sykes and the patient was accepted on to the hospital service the patient will be managed in the intermediate care unit. 1848: The patient's systolic blood pressure dropped to 80. I discuss this with the covering hydrogen plant operations manager and he recommended that the patient be started on phenylephrine for pressure support. The patient will be admitted to the intensive care unit. Medical Decision Making Lab Data Result diagrams: 05/14/21 14:17 05/14/21 14:17 Labs: Lab Results 05/14/21 05/14/21 05/14/21 Range/Units 14:04 14:17 14:17 WBC 6.7 (4.8-10.8) X10*3/uL RBC 4.75 (4.60-5.80) X10*6/uL Hgb 14.1 (14.0-18.0) g/dl Hct 44.2 (42-52) % MCV 93.1 (80-98) fL MCH 29.7 (27.0-33.0) pg MCHC 31.9 (31.0-36.0) g/dl RDW 17.6 H (11.0-16.0) % Plt Count 235 (160-400) X10*3/uL MPV 8.7 L (9.4-12.4) fL Immature Gran % (Auto) Cancelled Neut % (Auto) Cancelled Lymph % (Auto) Cancelled [place] % (Auto) Cancelled Eos % (Auto) Cancelled Baso % (Auto) Cancelled Lymph # (Auto) Cancelled [place] # (Auto) Cancelled Eos # (Auto) Cancelled Baso # (Auto) Cancelled Abs Immat Gran (auto) Cancelled Absolute Neuts (auto) Cancelled Absolute Nucleated RBC 0.000 (0.0-0.012) X10*3/uL Nucleated RBC % (auto) 0.0 (0.0-0.2) /100WBC Neutrophils % (Manual) 64 (45-73) % Band Neutrophils % 30 H (3-5) % Lymphocytes % (Manual) 3 L (20-40) % Monocytes % (Manual) 3 (2-11) % Abs Neuts (Manual) 6.3 (2.2-7.9) X10*3/uL Lymphocytes # (Manual) 0.2 L (0.6-4.8) X10*3/uL Monocytes # (Manual) 0.2 (0.0-1.2) X10*3/uL Platelet Estimate NORMAL (NORMAL) Plt Morphology Comment NORMAL RBC Morphology NOTED Acanthocytes (Spur) 1+ (0-2) /OIF PT (10.8-13.0) SEC INR (0.9-1.1) APTT (24.1-38.0) SEC Sodium 140 (135-145) mmol/L Potassium 4.2 (3.3-5.1) mmol/L Chloride 106 (96-108) mmol/L Carbon Dioxide 19 L (22-29) mmol/L Anion Gap 19 (12-20) BUN 28 H D (9-16) mg/dL Creatinine 1.95 H (0.5-1.4) mg/dL Estim Creat Clear Calc 34.3 Estimated GFR 34 POC Glucose 148 H (60-115) mg/dL Random Glucose 168 H D (60-115) mg/dL Lactic Acid (0.5-2.0) mmol/L Lactic Acid Fup @ 2Hr (0.5-2.0) mmol/L Calcium 8.7 (8.4-10.2) mg/dL Total Bilirubin 1.4 H (0.0-1.0) mg/dL Direct Bilirubin 0.4 (0.0-0.5) mg/dL AST 28 (5-37) U/L ALT 29 (0-40) U/L Alkaline Phosphatase 66 (39-117) U/L Total Protein 6.1 L (6.5-8.0) g/dL Albumin 3.5 (3.5-5.0) g/dL Urine Color Urine Appearance Urine pH (5.0-8.0) Ur Specific Mineral (1.005-1.025) Urine Protein (NEG-TRACE) MG/DL Urine Glucose (UA) (NEG) MG/DL Urine Ketones (NEG) MG/DL Urine Blood (NEG) Urine Nitrite (NEG) Ur Leukocyte Esterase (NEG) Urine RBC (0) /HPF Urine WBC (0-4) /HPF Ur Squamous Epith Cells /LPF Triple Phos Crystals /LPF Amorphous Sediment /LPF Urine Bacteria /LPF 05/14/21 05/14/21 05/14/21 Range/Units 14:18 14:37 16:26 WBC (4.8-10.8) X10*3/uL RBC (4.60-5.80) X10*6/uL Hgb (14.0-18.0) g/dl Hct (42-52) % MCV (80-98) fL MCH (27.0-33.0) pg MCHC (31.0-36.0) g/dl RDW (11.0-16.0) % Plt Count (160-400) X10*3/uL MPV (9.4-12.4) fL Immature Gran % (Auto) Neut % (Auto) Lymph % (Auto) [place] % (Auto) Eos % (Auto) Baso % (Auto) Lymph # (Auto) [place] # (Auto) Eos # (Auto) Baso # (Auto) Abs Immat Gran (auto) Absolute Neuts (auto) Absolute Nucleated RBC (0.0-0.012) X10*3/uL Nucleated RBC % (auto) (0.0-0.2) /100WBC Neutrophils % (Manual) (45-73) % Band Neutrophils % (3-5) % Lymphocytes % (Manual) (20-40) % Monocytes % (Manual) (2-11) % Abs Neuts (Manual) (2.2-7.9) X10*3/uL Lymphocytes # (Manual) (0.6-4.8) X10*3/uL Monocytes # (Manual) (0.0-1.2) X10*3/uL Platelet Estimate (NORMAL) Plt Morphology Comment RBC Morphology Acanthocytes (Spur) /OIF PT 12.5 (10.8-13.0) SEC INR 1.1 (0.9-1.1) APTT 30.5 (24.1-38.0) SEC Sodium (135-145) mmol/L Potassium (3.3-5.1) mmol/L Chloride (96-108) mmol/L Carbon Dioxide (22-29) mmol/L Anion Gap (12-20) BUN (9-16) mg/dL Creatinine (0.5-1.4) mg/dL Estim Creat Clear Calc Estimated GFR POC Glucose (60-115) mg/dL Random Glucose (60-115) mg/dL Lactic Acid 3.8 H* (0.5-2.0) mmol/L Lactic Acid Fup @ 2Hr 4.2 H* (0.5-2.0) mmol/L Calcium (8.4-10.2) mg/dL Total Bilirubin (0.0-1.0) mg/dL Direct Bilirubin (0.0-0.5) mg/dL AST (5-37) U/L ALT (0-40) U/L Alkaline Phosphatase (39-117) U/L Total Protein (6.5-8.0) g/dL Albumin (3.5-5.0) g/dL Urine Color Urine Appearance Urine pH (5.0-8.0) Ur Specific Mineral (1.005-1.025) Urine Protein (NEG-TRACE) MG/DL Urine Glucose (UA) (NEG) MG/DL Urine Ketones (NEG) MG/DL Urine Blood (NEG) Urine Nitrite (NEG) Ur Leukocyte Esterase (NEG) Urine RBC (0) /HPF Urine WBC (0-4) /HPF Ur Squamous Epith Cells /LPF Triple Phos Crystals /LPF Amorphous Sediment /LPF Urine Bacteria /LPF 05/14/21 Range/Units 17:52 WBC (4.8-10.8) X10*3/uL RBC (4.60-5.80) X10*6/uL Hgb (14.0-18.0) g/dl Hct (42-52) % MCV (80-98) fL MCH (27.0-33.0) pg MCHC (31.0-36.0) g/dl RDW (11.0-16.0) % Plt Count (160-400) X10*3/uL MPV (9.4-12.4) fL Immature Gran % (Auto) Neut % (Auto) Lymph % (Auto) [place] % (Auto) Eos % (Auto) Baso % (Auto) Lymph # (Auto) [place] # (Auto) Eos # (Auto) Baso # (Auto) Abs Immat Gran (auto) Absolute Neuts (auto) Absolute Nucleated RBC (0.0-0.012) X10*3/uL Nucleated RBC % (auto) (0.0-0.2) /100WBC Neutrophils % (Manual) (45-73) % Band Neutrophils % (3-5) % Lymphocytes % (Manual) (20-40) % Monocytes % (Manual) (2-11) % Abs Neuts (Manual) (2.2-7.9) X10*3/uL Lymphocytes # (Manual) (0.6-4.8) X10*3/uL Monocytes # (Manual) (0.0-1.2) X10*3/uL Platelet Estimate (NORMAL) Plt Morphology Comment RBC Morphology Acanthocytes (Spur) /OIF PT (10.8-13.0) SEC INR (0.9-1.1) APTT (24.1-38.0) SEC Sodium (135-145) mmol/L Potassium (3.3-5.1) mmol/L Chloride (96-108) mmol/L Carbon Dioxide (22-29) mmol/L Anion Gap (12-20) BUN (9-16) mg/dL Creatinine (0.5-1.4) mg/dL Estim Creat Clear Calc Estimated GFR POC Glucose (60-115) mg/dL Random Glucose (60-115) mg/dL Lactic Acid (0.5-2.0) mmol/L Lactic Acid Fup @ 2Hr (0.5-2.0) mmol/L Calcium (8.4-10.2) mg/dL Total Bilirubin (0.0-1.0) mg/dL Direct Bilirubin (0.0-0.5) mg/dL AST (5-37) U/L ALT (0-40) U/L Alkaline Phosphatase (39-117) U/L Total Protein (6.5-8.0) g/dL Albumin (3.5-5.0) g/dL Urine Color YELLOW Urine Appearance CLOUDY Urine pH >= 9.0 H (5.0-8.0) Ur Specific Mineral <= 1.005 (1.005-1.025) Urine Protein 2+ H (NEG-TRACE) MG/DL Urine Glucose (UA) NEG (NEG) MG/DL Urine Ketones NEG (NEG) MG/DL Urine Blood NEG (NEG) Urine Nitrite POS H (NEG) Ur Leukocyte Esterase 3+ H (NEG) Urine RBC 5-9 H (0) /HPF Urine WBC 0 (0-4) /HPF Ur Squamous Epith Cells NONE /LPF Triple Phos Crystals 4+ /LPF Amorphous Sediment 4+ /LPF Urine Bacteria 4+ /LPF Critical Care Time Critical Care Time Critical Care Time: Yes Total Critical Care Time: 145 Attestation: Critical Care: The patient was critically ill with a high probability of imminent or life threatening deterioration. I spent greater than 30 minutes of discontinuous time evaluating the patient,delivering critical care at the bedside, discussing and evaluating pertinent data with consultants. Cri tical care time does not include time spent performing separately billable procedures or teaching. Total time spent performing critical care was 145 minutes. Discharge Plan Discharge Clinical Impression: Aspiration pneumonitis, Sepsis, Acute hypotension Patient Disposition: Admitted As Inpatient
[2021-05-14 14:25] LABS: Hematocrit 44.2 % (42-52); Hemoglobin 14.1 g/dl (14.0-18.0); Mean Corpuscular HGB Conc 31.9 g/dl (31.0-36.0); Mean Corpuscular Hemoglobin 29.7 pg (27.0-33.0); Mean Corpuscular Volume 93.1 fL (80-98); Mean Platelet Volume 8.7 fL (9.4-12.4); Platelet Count 235 X10*3/uL (160-400); Red Blood Count 4.75 X10*6/uL (4.60-5.80); Red Cell Distribution Width 17.6 % (11.0-16.0); White Blood Count 6.7 X10*3/uL (4.8-10.8)
[2021-05-14 14:46] LABS: Band Neutrophils Percent 30 % (3-5); Lymphocytes Absolute Manual 0.2 X10*3/uL (0.6-4.8); Lymphocytes Percent Manual 3 % (20-40); Monocytes Absolute Manual 0.2 X10*3/uL (0.0-1.2); Monocytes Percent Manual 3 % (2-11); Neutrophils Absolute Manual 6.3 X10*3/uL (2.2-7.9); Neutrophils Percent Manual 64 % (45-73)
[2021-05-14 14:47] LABS: Acanthocytes 1+ (0-2) /OIF; Platelet Estimate NORMAL (NORMAL); RBC Morphology NOTED
[2021-05-14 14:48] LABS: Platelet Morphology Comment NORMAL
[2021-05-14 14:48] LABS: INTERNATIONAL NORM RATIO 1.1 (0.9-1.1); Prothrombin Time 12.5 SEC (10.8-13.0)
[2021-05-14 14:49] LABS: Anion Gap 19 (12-20); Bilirubin Total 1.4 mg/dL (0.0-1.0); Blood Urea Nitrogen 28 mg/dL (9-16); Calcium 8.7 mg/dL (8.4-10.2); Carbon Dioxide 19 mmol/L (22-29); Chloride 106 mmol/L (96-108); Creatinine Clr Calc Pharmacy 34.3; Estimated Glomerular Filt Rate 34; Glucose Random 168 mg/dL (60-115); Potassium 4.2 mmol/L (3.3-5.1); Sodium 140 mmol/L (135-145)
[2021-05-14 14:50] LABS: Partial Thromboplastin Time 30.5 SEC (24.1-38.0)
[2021-05-14] MEDS: SODIUM CHLORIDE 2529 ML IVCONT (14:52)
[2021-05-14] MEDS: Piperacillin Sodium/Tazobactam 4.5 GM in 0.9 % Sodium Chloride 100 ML IV (14:52)
[2021-05-14] MEDS: Albuterol Sulfate (0.083%) 2.5 MG/3 ML VIAL.NEB INHALE (14:54)
[2021-05-14 14:57] LABS: Lactic Acid 3.8 mmol/L (0.5-2.0)
--- NOTE | 2021-05-14 14:57 | PC.NURSE ---
Pt presents to ED alert to tactile stimuli, color is poor, pale and distal extremities dusky. When turning pt to obtai rectal temp back noted to be mottled, blanchable. tachycardic on tele rate 140s, rectal temp 101.0, small amount of brown liquid stool noted. Congested cough periodically, LS coarse. no increased work of breathing noted. Pt does denies pain or SOB at this time. B/L lower extremity boots on and skin wrapped, bl upper extremity with bruising and small skin tears. sat 98% on 4lpm, titrated down to 3lpm via nc and sat remains 98%. Second iv established, NS liters infusing as ordered. ABX started as ordered. HR trending down and currently 128 at this time. Receiving updraft by RT. Report to Stephen VALENZUELA
--- NOTE | 2021-05-14 15:22 | PC.NURSE ---
Johnnie finished 05/14/21 at 2140
--- NOTE | 2021-05-14 16:02 | PC.NURSE ---
IV Fluid bolus of 2549ml was finished at 1600 on 05/14/21
[2021-05-14 16:21] LABS: Reflex Lactate? Lactic Acid Added
--- NOTE | 2021-05-14 16:48 | PC.NURSE ---
Irasema finished 05/14/21 at 0952
[2021-05-14] MEDS: 0.9 % Sodium Chloride 1,000 ML 999 ML IV ×2 (16:49→17:22)
[2021-05-14 16:55] LABS: Alanine Aminotransferase 29 U/L (0-40); Albumin Level 3.5 g/dL (3.5-5.0); Alkaline Phosphatase 66 U/L (39-117); Aspartate Amino Transferase 28 U/L (5-37); Bilirubin Direct 0.4 mg/dL (0.0-0.5); Total Protein 6.1 g/dL (6.5-8.0)
[2021-05-14 17:01] LABS: ~Lactic Acid-LAB USE ONLY 4.2 mmol/L (0.5-2.0)
[2021-05-14] MEDS: Fluconazole in NaCl,Iso-Osm 200 MG/100 ML PIGGYBACK 100 MG IV (18:13)
[2021-05-14 18:14] LABS: Glucose Urine UA NEG (NEG); Leukocyte Esterase Urine 3+ (NEG); Nitrite Urine POS (NEG); PH >= 9.0 (5.0-8.0); Specific Gravity - Urine <= 1.005 (1.005-1.025); UACC Culture Trigger YES; Urine Blood NEG (NEG); Urine Ketones NEG (NEG)
[2021-05-14] MEDS: 0.9 % Sodium Chloride 1,000 ML 75 ML IVCONT ×2 (18:14→22:12)
[2021-05-14 18:31] LABS: Urine Protein 2+ MG/DL (NEG-TRACE)
[2021-05-14 18:32] LABS: Appearance Urine CLOUDY; Color Urine YELLOW
[2021-05-14 18:32] LABS: Reflex Lactate? 2 Y
[2021-05-14 18:33] LABS: Bacteria Urine 4+ /LPF; WBC Urine 0 /HPF (0-4)
[2021-05-14 18:34] LABS: Amorphous Sediment Urine 4+ /LPF; Triple Phosphate Crystal Urine 4+ /LPF
[2021-05-14] MEDS: Phenylephrine HCL 20 MG in 0.9 % Sodium Chloride 250 ML 31.87 MG IVCONT ×2 (18:59→22:15)
--- NOTE | 2021-05-14 19:34 | PM.CCHP ---
History of Present Illness Date of Service: 05/14/21 Chief Complaint: Hypotension Patient is a 76-year-old male with a past medical history of MS, DM2, chronic renal failure, BPH and a chronic Nunez who was unable to ambulate and lives in a SNF. The SNF called EMS after the pt was found to be nauseous and then had an episode of vomiting with coffee-ground emesis, they noted his Sp O2 to be in the 70's. His blood pressures were labile. Patient's labs are significant for lactic acid of 3.8, bicarb 19, BUN 28, creatinine 1.95, GFR 34, bili 1.4, UA positive for infection and protein, chest x-ray was negative. Patient was treated with 2 L of normal saline and then started at 75 per hour, patient was given Zosyn Vanco and then when his blood pressures required it started on phenylephrine. He is also given 1 dose of fluconazole 200 mg. Patient's bicarb continued to climb, 2 hour lactic acid continued to climb to 4.2 and subsequently 2 hours later was 4.8. Patient was scanned, both his chest and abdomen, there was significant for questionable ruptured urinary bladder versus seroma versus lymphocele and stranding was noted in the bilateral paracolic gutters. During my exam, is at the bedside, nurses providing me the history. The states every time her becomes septic, he does get a rash with lesions that are water filled and then pop and peel, she also states he has had a rash on his back since at least last week. Pt will be transferred to the ICU where we will get a urology consult and start 500mg IV metronidazole. Review of Systems Review of Systems: Yes all other systems are reviewed and are negative [facility] Past Medical History Medical History BPH (benign prostatic hyperplasia) Chronic pain syndrome Chronic renal failure Dehydration Depression Diabetes mellitus type 2 in obese Multiple sclerosis Urinary tract infection Family History Family History Family/Other Heart attack Father Diabetes Surgical History Surgical History Hx of removal of cyst Social History Social History Household Members: Other Household Members Other:: lives in [facility] Housing: Retirement Housing Other:: [employer] Do you presently have visiting nurse or other home services: No Unable to assess alcohol history related to: Unable to respond Alcohol intake: never Patient Tobacco Use Status: Tobacco use Unknown Cigarette Packs Per Day: 1 Use of substances other than those prescribed or required for medical reasons: Unable to respond Currently Displaying Signs/Symptoms of Drug Intoxication Withdrawal: No Advance Directives: Yes Advance Directives on File: Yes Advance Directives Date on File: 10/13/20 Do you have thoughts of harming others: None Do you have a plan to hurt others: No Plan Recently lost weight without trying: Unsure service: Yes Current occupational status: retired [employer] Allergies Allergy/AdvReac Type Severity Reaction Status Date / Time Benzodiazepines Allergy Unknown UNKNOWN Verified 04/11/21 09:47 [BENZODIAZEPINES] dalfampridine [From AMPYRA] Allergy Unknown UNKNOWN Verified 04/11/21 09:47 duloxetine [From CYMBALTA] Allergy Unknown UNKNOWN Verified 04/11/21 09:47 ezetimibe [From ZETIA] Allergy Unknown UNKNOWN Verified 04/11/21 09:47 niacin [NIACIN] Allergy Unknown UNKNOWN Verified 04/11/21 09:47 pravastatin [PRAVASTATIN] Allergy Unknown UNKNOWN Verified 04/11/21 09:47 Upfvpvr-Sxv-Vja Reductase Allergy Unknown UNKNOWN Verified 04/11/21 09:47 Inhibitor [FORAIIA-SBP-GXQ REDUCTASE INHIBITOR] lorazepam [From ATIVAN] AdvReac Severe EXCESSIVE Verified 04/11/21 09:47 SEDATION doxycycline [DOXYCYCLINE] AdvReac Mild esophogeal Verified 04/11/21 09:47 iritation methylprednisolone AdvReac Mild heartburn Verified 04/11/21 09:47 [From SOLU-MEDROL] ertapenem [From INVANZ] AdvReac Unknown possible Verified 04/11/21 09:47 cause of bullous pemphigoid Active Medications: Current Medications Generic Name Dose Route Start Last Admin Trade Name Freq PRN Reason Stop Dose Admin Sodium Chloride 1,000 mls @ 75 mls/hr 05/14/21 17:45 05/14/21 18:14 Ns IVCONT 75 mls/hr .[id number] WICHO Administration Phenylephrine HCl 20 mg/ 252 mls @ 0 mls/hr 05/14/21 19:00 05/14/21 18:59 Sodium Chloride IVCONT 0.5 mcg/kg/min .Q0M WICHO 31.87 mls/hr Administration Protocol Per Protocol Home Medications Medication Instructions Recorded Confirmed Last Taken Type bisacodyl 10 mg AR DAILY 10/09/20 03/28/21 Unknown History gabapentin 300 mg PO BID@0630,1200 10/09/20 03/28/21 Unknown History metformin 500 mg PO BID 10/09/20 03/28/21 Unknown History tramadol 50 mg PO BID PRN 10/09/20 03/28/21 Unknown History trazodone 25 mg PO BEDTIME 10/09/20 03/28/21 Unknown History acetaminophen 650 mg PO Q4H PRN 03/13/21 03/28/21 Unknown History amlodipine 7.5 mg PO DAILY 03/13/21 03/28/21 Unknown History aspirin 81 mg PO DAILY 03/13/21 03/28/21 Unknown History gabapentin 600 mg PO BEDTIME 03/13/21 03/28/21 Unknown History insulin lispro [Humalog U-100 100 sliding scale dose SUBCUT 03/13/21 03/28/21 Unknown History Insulin] QIDACHS niacinamide 500 mg PO TID 03/13/21 03/28/21 Unknown History prednisone 10 mg PO DAILY 03/13/21 03/28/21 Unknown History rosuvastatin 10 mg PO DAILY 03/13/21 03/28/21 Unknown History alum-mag hydroxide-simeth [Maalox ml 04/20/21 Unknown History Plus] doxycycline hyclate 100 mg PO DAILY 04/20/21 04/20/21 Unknown History fluconazole 100 mg PO DAILY 04/20/21 04/20/21 Unknown History nystatin-triamcinolone 1 appl TOPICAL BID 04/20/21 04/20/21 Unknown History Physical Exam Vital Signs: Vital Signs: Last Vital Signs Temp 99 F 05/14/21 15:37 Pulse 119 H 05/14/21 19:25 Resp 16 05/14/21 19:25 BP 115/69 05/14/21 19:25 Pulse Ox 99 05/14/21 19:25 Oxygen Flow Rate 4 05/14/21 14:00 Body Mass Index 26.6 Const: General: comfortable (breathing easily), no acute distress and patient obtunded Nutritional Appearance: average body habitus Orientation/consciousness: patient obtunded Limitations: wheelchair HENMT: Head: Yes normal to inspection, Yes No palpable skull fracture present, Yes normocephalic and Yes atraumatic General nose exam: Normal external nose present Face and sinus: Yes normal facial exam Eyes: General: appearance normal, both eyes and all related structures Resp: Effort & Inspection: normal respiratory effort Auscultation: clear to auscultation bilaterally Cardio: Rate: tachycardic Rhythm: regular rhythm Heart sounds: normal S1 and S2 GI: Inspection: Yes normal to inspection Palpation (GI): Firmness to palpation present (GI) (slightly) other (diffuse) Auscultation: Hypoactive bowel sounds present Back/Spine/Pelvis: Other: blanchable erythema over entire back, pics taken, no warmth, no ecchymosis, no breaks in the skin or signs of infection noted Skin: Other: multiple skin tears over bilateral arms. Bilateral feet have areas of venous stasis as well as extremely dry skin, stage 3 ulcer on coccyx, pic taken Neuro: General: patient obtunded Results Labs CBC and Chem 7: 05/14/21 22:29 05/14/21 22:29 Labs: Laboratory Results - last 24 hr 05/14/21 05/14/21 05/14/21 14:04 14:17 14:17 MCV 93.1 MCH 29.7 MCHC 31.9 RDW 17.6 H Plt Count 235 MPV 8.7 L Immature Gran % (Auto) Cancelled Neut % (Auto) Cancelled Lymph % (Auto) Cancelled Johnston % (Auto) Cancelled Eos % (Auto) Cancelled Baso % (Auto) Cancelled Lymph # (Auto) Cancelled Johnston # (Auto) Cancelled Eos # (Auto) Cancelled Baso # (Auto) Cancelled Abs Immat Gran (auto) Cancelled Absolute Neuts (auto) Cancelled Absolute Nucleated RBC 0.000 Nucleated RBC % (auto) 0.0 Neutrophils % (Manual) 64 Band Neutrophils % 30 H Lymphocytes % (Manual) 3 L Monocytes % (Manual) 3 Abs Neuts (Manual) 6.3 Lymphocytes # (Manual) 0.2 L Monocytes # (Manual) 0.2 Platelet Estimate NORMAL Plt Morphology Comment NORMAL RBC Morphology NOTED Acanthocytes (Spur) 1+ (0-2) PT INR APTT Anion Gap 19 Estim Creat Clear Calc 34.3 Estimated GFR 34 POC Glucose 148 H Random Glucose 168 H D Lactic Acid Lactic Acid Fup @ 2Hr Calcium 8.7 Total Bilirubin 1.4 H Direct Bilirubin 0.4 AST 28 ALT 29 Alkaline Phosphatase 66 Total Protein 6.1 L Albumin 3.5 Urine Color Urine Appearance Urine pH Ur Specific [place] Urine Protein Urine Glucose (UA) Urine Ketones Urine Blood Urine Nitrite Ur Leukocyte Esterase Urine RBC Urine WBC Ur Squamous Epith Cells Triple Phos Crystals Amorphous Sediment Urine Bacteria 05/14/21 05/14/21 05/14/21 14:18 14:37 16:26 MCV MCH MCHC RDW Plt Count MPV Immature Gran % (Auto) Neut % (Auto) Lymph % (Auto) Johnston % (Auto) Eos % (Auto) Baso % (Auto) Lymph # (Auto) Johnston # (Auto) Eos # (Auto) Baso # (Auto) Abs Immat Gran (auto) Absolute Neuts (auto) Absolute Nucleated RBC Nucleated RBC % (auto) Neutrophils % (Manual) Band Neutrophils % Lymphocytes % (Manual) Monocytes % (Manual) Abs Neuts (Manual) Lymphocytes # (Manual) Monocytes # (Manual) Platelet Estimate Plt Morphology Comment RBC Morphology Acanthocytes (Spur) PT 12.5 INR 1.1 APTT 30.5 Anion Gap Estim Creat Clear Calc Estimated GFR POC Glucose Random Glucose Lactic Acid 3.8 H* Lactic Acid Fup @ 2Hr 4.2 H* Calcium Total Bilirubin Direct Bilirubin AST ALT Alkaline Phosphatase Total Protein Albumin Urine Color Urine Appearance Urine pH Ur Specific [place] Urine Protein Urine Glucose (UA) Urine Ketones Urine Blood Urine Nitrite Ur Leukocyte Esterase Urine RBC Urine WBC Ur Squamous Epith Cells Triple Phos Crystals Amorphous Sediment Urine Bacteria 05/14/21 17:52 MCV MCH MCHC RDW Plt Count MPV Immature Gran % (Auto) Neut % (Auto) Lymph % (Auto) Johnston % (Auto) Eos % (Auto) Baso % (Auto) Lymph # (Auto) Johnston # (Auto) Eos # (Auto) Baso # (Auto) Abs Immat Gran (auto) Absolute Neuts (auto) Absolute Nucleated RBC Nucleated RBC % (auto) Neutrophils % (Manual) Band Neutrophils % Lymphocytes % (Manual) Monocytes % (Manual) Abs Neuts (Manual) Lymphocytes # (Manual) Monocytes # (Manual) Platelet Estimate Plt Morphology Comment RBC Morphology Acanthocytes (Spur) PT INR APTT Anion Gap Estim Creat Clear Calc Estimated GFR POC Glucose Random Glucose Lactic Acid Lactic Acid Fup @ 2Hr Calcium Total Bilirubin Direct Bilirubin AST ALT Alkaline Phosphatase Total Protein Albumin Urine Color YELLOW Urine Appearance CLOUDY Urine pH >= 9.0 H Ur Specific [place] <= 1.005 Urine Protein 2+ H Urine Glucose (UA) NEG Urine Ketones NEG Urine Blood NEG Urine Nitrite POS H Ur Leukocyte Esterase 3+ H Urine RBC 5-9 H Urine WBC 0 Ur Squamous Epith Cells NONE Triple Phos Crystals 4+ Amorphous Sediment 4+ Urine Bacteria 4+ Imaging Radiologist's Impressions: Impressions Chest X-Ray 05/14/21 14:04 IMPRESSION: Unremarkable examination. Abdomen/Pelvis CT 05/14/21 17:42 IMPRESSION: Bilateral dependent upper lobe and lower lobe atelectatic changes. Minimal atelectatic changes are seen in lingula as well. Mild posterior pleural thickenings more prominent on the left side. There is a diffuse bladder wall thickening with a Nunez's catheter within. Superior and to the left of bladder is intraperitoneal haziness with fluid collection and stranding extending bilateral paracolic gutter. The findings are highly suspicious for a ruptured urinary bladder, seroma or less likely lymphocele. This can be confirmed with cystography or cystoscopy. There is small amount of free fluid but no free air seen. Chest CT 05/14/21 17:42 IMPRESSION: Bilateral dependent upper lobe and lower lobe atelectatic changes. Minimal atelectatic changes are seen in lingula as well. Mild posterior pleural thickenings more prominent on the left side. There is a diffuse bladder wall thickening with a Nunez's catheter within. Superior and to the left of bladder is intraperitoneal haziness with fluid collection and stranding extending bilateral paracolic gutter. The findings are highly suspicious for a ruptured urinary bladder, seroma or less likely lymphocele. This can be confirmed with cystography or cystoscopy. There is small amount of free fluid but no free air seen. Assessment and Plan (1) Aspiration pneumonitis: Status: Acute Given sepsis fluid bolus in ED, on maint fluids, started vanco and zosyn (2) Sepsis: Status: Acute support blood pressure, with rising lactic acids, 2 boluses of bicarb, cvp 5-6. giving metronidazole for possible acute bowel infection but likely bowel ischemia. Will place TLC for pressors. (3) Recurrent UTI (urinary tract infection): Status: Acute pt given abx and one dose of fluconazole (4) Multiple sclerosis: Status: Acute (5) Decubitus ulcer of coccygeal region, stage 2: Status: Acute
[2021-05-14 19:47] LABS: ~Lactic Acid-LAB USE ONLY 4.8 mmol/L (0.5-2.0)
[2021-05-14 21:11] LABS: COVID-19 Test Negative (Negative); IDNOW Serial# 08D9AD1C
[2021-05-14 21:47] LABS: Fibrinogen 622 MG/DL (259-690); Prothrombin Time 11.4 SEC (10.8-13.0)
--- NOTE | 2021-05-14 22:10 | W.PM.CCHP ---
Procedures Date of Service Date of Service: 05/14/21 Central Line Placement Right IJ: Central Line Comments: initial TLC placed was too low so it was removed and replaced with a shorter 16 TLC Consent for Procedure: Emergent-no informed consent obtained Time out performed: Yes Sterile Technique Used: Yes Patient placed on monitor/pulse ox: Yes prep: mask, gown and gloves Central line prep: Chlorhexidine scrub Local anesthesia used: lidocaine 2% Amount of anesthesia used (ml): 3 Ultrasound used for placement: Yes Central line lumen inserted: triple Post procedure: sutured in place, good blood return, all ports aspirated, flushed, capped and sterile dressing applied Post procedure x-ray: tip of catheter in good position and no pneumothorax seen Patient tolerated procedure: well and no complications
[2021-05-14] MEDS: Piperacillin Sodium/Tazobactam 3.375 GM in 0.9 % Sodium Chloride 50 ML IV (22:12)
[2021-05-14] MEDS: metroNIDAZOLE/NS 500 MG/100 ML PIGGYBACK 100 MG IV (22:13)
[2021-05-14 22:47] LABS: Hematocrit 35.7 % (42-52); Hemoglobin 11.3 g/dl (14.0-18.0); Mean Corpuscular HGB Conc 31.7 g/dl (31.0-36.0); Mean Corpuscular Hemoglobin 30.1 pg (27.0-33.0); Mean Corpuscular Volume 95.2 fL (80-98); Mean Platelet Volume 9.3 fL (9.4-12.4); Platelet Count 251 X10*3/uL (160-400); Red Blood Count 3.75 X10*6/uL (4.60-5.80); Red Cell Distribution Width 18.3 % (11.0-16.0)
[2021-05-14 22:48] LABS: WBC ABN SCTR FOR CBC 1
[2021-05-14 23:09] LABS: Anion Gap 20 (12-20); Blood Urea Nitrogen 26 mg/dL (9-16); Calcium 7.5 mg/dL (8.4-10.2); Carbon Dioxide 13 mmol/L (22-29); Chloride 114 mmol/L (96-108); Creatinine Clr Calc Pharmacy 33.6; Estimated Glomerular Filt Rate 33; Glucose Random 190 mg/dL (60-115); Potassium 3.8 mmol/L (3.3-5.1); Sodium 143 mmol/L (135-145); White Blood Count 21.7 X10*3/uL (4.8-10.8)
[2021-05-14 23:11] LABS: Band Neutrophils Percent 53 % (3-5); Basophils Abs Manual 0.2 X10*3/uL (0.0-0.3); Basophils Percent Manual 1 % (0-1); Lymphocytes Absolute Manual 0.7 X10*3/uL (0.6-4.8); Lymphocytes Percent Manual 3 % (20-40); Metamyelocytes Absolute 2.2 X10*3/uL; Metamyelocytes Percent 10 %; Monocytes Absolute Manual 1.1 X10*3/uL (0.0-1.2); Monocytes Percent Manual 5 % (2-11); Neutrophils Absolute Manual 17.6 X10*3/uL (2.2-7.9); Neutrophils Percent Manual 28 % (45-73); Platelet Estimate NORMAL (NORMAL); Platelet Morphology Comment NORMAL; RBC Morphology NORMAL
[2021-05-14] MEDS: Sodium Bicarbonate 8.4% 50 MEQ/50 ML VIAL IVPUSH (23:14)
[2021-05-14] MEDS: Phenylephrine HCL 100 MG in 0.9 % Sodium Chloride 250 ML 78.91 MG IVCONT (23:16)
[2021-05-14 23:29] LABS: Glucose, Whole Blood 168 mg/dL (60-115)
[2021-05-14 23:48] LABS: VBG Base Excess -13.4 mmol/L; VBG HCO3 13 mmol/L (22-26); VBG pCO2 34 mmHg; VBG pH 7.19 (7.32-7.43); VBG pO2 47 mmHg
[2021-05-15] VITALS (51 sets, daily range): BP systolic 66–158; BP diastolic 33–90; PULSE 70–124; RESP 15–42; TEMP 36.6–38.1; O2SAT 97–100; BMI 26.1
[2021-05-15] MEDS: Sodium Bicarbonate 8.4% 50 MEQ/50 ML VIAL IVPUSH
--- NOTE | 2021-05-15 | ECG_ITS ---
Test Reason : SEPTIC Blood Pressure : / mmHG Vent. Rate : 138 BPM Atrial Rate : 138 BPM P-R Int : 126 ms QRS Dur : 092 ms QT Int : 290 ms P-R-T Axes : 037 051 021 degrees QTc Int : [address] & T wave abnormality, consider inferior ischemia and lateral ischemia Abnormal ECG When compared with ECG of 13-MAR-2021 09:21, Inverted T waves have replaced nonspecific T wave abnormality in Inferior leads and lateral leads Referred By: Shila Araujo Electronically Signed By:JOSEP SHARIF
[2021-05-15 00:09] LABS: Lactic Acid 10.5 mmol/L (0.5-2.0)
[2021-05-15 01:10] LABS: Venous Blood Gas Refer to POC result
--- NOTE | 2021-05-15 01:12 | W.PM.CCHP ---
Procedures Date of Service Date of Service: 05/15/21 Intubation Intubation Comments: airway protection, pt obtunded and actively vomiting. Intubated pt with Dr Lopes at the bedside. Consent for Procedure: Emergent-no informed consent obtained Time out performed: Yes Sedative: etomidate Mg given: 20 Paralytic: rocuronium Mg given: 50 Laryngoscope: fiber optic video scope ET tube size: 8 ET tube uncuffed: Yes Tube secured depth (cm): 26 Tube secured location: lips Tube placement confirmation: visualized tube passing through cords, equal breath sounds bilaterally, no breath sounds over epigastrium and confirmation by capnometry Patient tolerated procedure: well and no complications Intubation complications: none
[2021-05-15 01:13] LABS: Alanine Aminotransferase 22 U/L (0-40); Albumin Level 2.8 g/dL (3.5-5.0); Alkaline Phosphatase 42 U/L (39-117); Amylase 96 U/L (28-100); Aspartate Amino Transferase 18 U/L (5-37); Bilirubin Direct 0.7 mg/dL (0.0-0.5); Bilirubin Total 1.4 mg/dL (0.0-1.0); Lipase 8 U/L (8-78); Total Protein 4.7 g/dL (6.5-8.0)
--- NOTE | 2021-05-15 01:14 | PM.CCN ---
Critical Care Event Note Summary Date of Service: 05/14/21 Code activated: No Narrative: This case had a high probability of a clinically significant, sudden, or life threatening deterioration of this patient's condition which required my full and direct attention, intervention and personal management. CT scan indeterminate but shows stranding, we cannot use IV contrast because of the patient's chronic kidney disease but likely patient has bowel ischemia. discussed findings with family, grave prognosis if ischemia. Pt on 3 antibiotics to cover possible aspiration pneumonia, UTI and questionable abdominal infection, c diff testing sent to lab. patient becoming increasingly hypotensive requiring 3 pressors, vasopressin, phenylephrine and Levophed. becoming more acidotic, lactic acid 10.5, pH 7.19, patient began actively vomiting and still obtunded with moments of awakening but confused, will intubate to protect airway. Spoke with patient's and son who both agree to keep him as a full code with intubation. Will continue to titrate pressors, do additional labs and monitor acidosis. Called back patient's son to advise we will be intubating the patient for airway protection as he is actively vomiting. Discussed CT, labs and pt status with Dr. Wheat, he agreed with assessment and plan. Critical Care Time (minutes): 60
[2021-05-15 01:46] LABS: Reflex Lactate? Lactic Acid Added
[2021-05-15] MEDS: Etomidate 20 MG/10 ML VIAL IVPUSH (01:48)
[2021-05-15] MEDS: Rocuronium Bromide 50 MG/5 ML VIAL IVPUSH (01:48)
[2021-05-15] MEDS: propofoL 1,000 MG/100 ML VIAL 10.12 MG IVCONT (01:48)
[2021-05-15 02:21] LABS: ~Lactic Acid-LAB USE ONLY 7.5 mmol/L (0.5-2.0)
[2021-05-15 02:35] LABS: CDIFF Ag Negative (Negative); CDIFF Internal ctrl Dots and bkg OK (V); CDiff Toxin Negative (Negative)
[2021-05-15 02:41] LABS: VBG Base Excess -9.1 mmol/L; VBG HCO3 17 mmol/L (22-26); VBG pCO2 38 mmHg; VBG pH 7.25 (7.32-7.43); VBG pO2 53 mmHg
--- NOTE | 2021-05-15 02:46 | PC.NURSE ---
Addendum entered by Gisela Bird, RN 05/15/21 02:54: Converted back to ST 105-110 after intubated. Sedated with propofol. Able to start weaning pressors. Original Note: Patient received from the ED approx 2100 with phenylephrine infusing via 20g PIV in right hand. Accompanied by . educated on care plan and oriented to unit. Assessment facilitated by and jail staff. Rapidly increasing pressor requirements. Bryn @ 6, Vaso @ 0.04, levo @ 0.1. IVP bicarb x2. TLC inserted right IJ with subsequent guidewire changeover. Initially ST 110's, converted to afib 120's-130's. Bladder pressure 16. CVP 4-6. Copious loose, mucuosy stool. Large amount of vomit x2. Not managing airway, mostly unresponsive. Intubated #8 @ 24. Numerous breeches in skin integrity: multiple skin tears to bilat arms. Large bruises to arms and chest. Red upper back. Red buttocks bilat with stage 2 to coccycx.
[2021-05-15 02:47] LABS: Venous Blood Gas Refer to POC result
[2021-05-15] MEDS: Piperacillin Sodium/Tazobactam 3.375 GM in 0.9 % Sodium Chloride 50 ML IV ×4 (03:13→20:31)
[2021-05-15] MEDS: metroNIDAZOLE/NS 500 MG/100 ML PIGGYBACK 100 MG IV ×3 (03:13→17:10)
[2021-05-15 03:58] LABS: Reflex Lactate? 2 Y
--- NOTE | 2021-05-15 04:20 | PC.NURSE ---
Unable to insert OGT or NGT. Multiple attempts made by multiple RN's and PA.
[2021-05-15] MEDS: Phenylephrine HCL 100 MG in 0.9 % Sodium Chloride 250 ML 78.91 MG IVCONT (04:36)
[2021-05-15 04:41] LABS: ~Lactic Acid-LAB USE ONLY 8.6 mmol/L (0.5-2.0)
[2021-05-15] MEDS: Pantoprazole Sodium 40 MG/10 ML VIAL IVPUSH (05:33)
[2021-05-15 05:48] LABS: Hematocrit 35.8 % (42-52); Hemoglobin 11.3 g/dl (14.0-18.0); Mean Corpuscular HGB Conc 31.6 g/dl (31.0-36.0); Mean Corpuscular Hemoglobin 29.8 pg (27.0-33.0); Mean Corpuscular Volume 94.5 fL (80-98); Platelet Count 246 X10*3/uL (160-400); Red Blood Count 3.79 X10*6/uL (4.60-5.80); Red Cell Distribution Width 18.5 % (11.0-16.0); WBC ABN SCTR FOR CBC 1
[2021-05-15 05:51] LABS: White Blood Count 23.4 X10*3/uL (4.8-10.8)
[2021-05-15 05:54] LABS: INTERNATIONAL NORM RATIO 1.1 (0.9-1.1); Prothrombin Time 13.4 SEC (10.8-13.0)
[2021-05-15 05:57] LABS: Partial Thromboplastin Time 34.1 SEC (24.1-38.0)
[2021-05-15 06:09] LABS: Alanine Aminotransferase 25 U/L (0-40); Albumin Level 2.8 g/dL (3.5-5.0); Alkaline Phosphatase 41 U/L (39-117); Aspartate Amino Transferase 20 U/L (5-37); Bilirubin Direct 0.7 mg/dL (0.0-0.5); Bilirubin Total 1.5 mg/dL (0.0-1.0); Blood Urea Nitrogen 25 mg/dL (9-16); Calcium 7.7 mg/dL (8.4-10.2); Creatinine Clr Calc Pharmacy 42.3; Estimated Glomerular Filt Rate 43; Glucose Random 215 mg/dL (60-115); Magnesium 1.5 mg/dL (1.6-2.6); Phosphorus 3.7 mg/dL (2.7-4.5); Total Protein 4.8 g/dL (6.5-8.0)
[2021-05-15 06:14] LABS: Band Neutrophils Percent 46 % (3-5); Lymphocytes Absolute Manual 0.9 X10*3/uL (0.6-4.8); Lymphocytes Percent Manual 4 % (20-40); Metamyelocytes Absolute 2.3 X10*3/uL; Metamyelocytes Percent 10 %; Monocytes Absolute Manual 0.2 X10*3/uL (0.0-1.2); Monocytes Percent Manual 1 % (2-11); Myelocytes Absolute 0.2 X10*/uL; Myelocytes Percent 1 %; Neutrophils Absolute Manual 19.7 X10*3/uL (2.2-7.9); Neutrophils Percent Manual 38 % (45-73)
[2021-05-15 06:17] LABS: Acanthocytes 1+ (0-2) /OIF; Platelet Estimate NORMAL (NORMAL); Platelet Morphology Comment NORMAL; Polychromasia 1+ (0-2) /OIF; RBC Morphology NOTED
[2021-05-15 06:18] LABS: Anion Gap 20 (12-20); Carbon Dioxide 16 mmol/L (22-29); Chloride 116 mmol/L (96-108); Potassium 3.6 mmol/L (3.3-5.1); Sodium 148 mmol/L (135-145)
[2021-05-15] MEDS: propofoL 1,000 MG/100 ML VIAL 15.17 MG IVCONT (06:25)
[2021-05-15 07:20] LABS: Glucose, Whole Blood 184 mg/dL (60-115)
[2021-05-15] MEDS: Hydrocortisone Sod Succ/PF 100 MG VIAL 50 MG IVPUSH ×2 (07:23→18:23)
[2021-05-15] MEDS: Magnesium Sulfate/D5W 1 GM/100 ML PIGGYBACK IV (07:25)
[2021-05-15] MEDS: KCl 20 mEq in 0.45% Sod 20 MEQ/1,000 ML IV.SOLN 80 MEQ IVCONT (07:30)
[2021-05-15] MEDS: Fluconazole in NaCl,Iso-Osm 200 MG/100 ML PIGGYBACK 100 MG IV (07:39)
--- NOTE | 2021-05-15 08:01 | P.CNUR_ITS ---
History of Present Illness Consult details Consult date: 05/14/21 Narrative: Pt known to urology Admit from care facility CT scan with question of inflammed bladder vs preperitoneal extravasation of urine Chronic carty Replaced by ER nursing staff and now draining blood tinged urine Will follow closely [facility] Past Medical History Medical History BPH (benign prostatic hyperplasia) Chronic pain syndrome Chronic renal failure Dehydration Depression Diabetes mellitus type 2 in obese Multiple sclerosis Urinary tract infection Family History Family History Family/Other Heart attack Father Diabetes Surgical History Surgical History Hx of removal of cyst Social History Social History Household Members: Other Household Members Other:: lives in detention Housing: Correction Housing Other:: [facility] Do you presently have visiting nurse or other home services: No Unable to assess alcohol history related to: Unable to respond Alcohol intake: never Patient Tobacco Use Status: Tobacco use Unknown Cigarette Packs Per Day: 1 Use of substances other than those prescribed or required for medical reasons: Unable to respond Currently Displaying Signs/Symptoms of Drug Intoxication Withdrawal: No Advance Directives: Yes Advance Directives on File: Yes Advance Directives Date on File: 10/13/20 Do you have thoughts of harming others: None Do you have a plan to hurt others: No Plan Recently lost weight without trying: Unsure service: Yes Current occupational status: retired Meds Allergies Allergy/AdvReac Type Severity Reaction Status Date / Time Benzodiazepines Allergy Unknown UNKNOWN Verified 04/11/21 09:47 [BENZODIAZEPINES] dalfampridine [From AMPYRA] Allergy Unknown UNKNOWN Verified 04/11/21 09:47 duloxetine [From CYMBALTA] Allergy Unknown UNKNOWN Verified 04/11/21 09:47 ezetimibe [From ZETIA] Allergy Unknown UNKNOWN Verified 04/11/21 09:47 niacin [NIACIN] Allergy Unknown UNKNOWN Verified 04/11/21 09:47 pravastatin [PRAVASTATIN] Allergy Unknown UNKNOWN Verified 04/11/21 09:47 Qvxoqpt-Hps-Aum Reductase Allergy Unknown UNKNOWN Verified 04/11/21 09:47 Inhibitor [[id number]-INI REDUCTASE INHIBITOR] lorazepam [From ATIVAN] AdvReac Severe EXCESSIVE Verified 04/11/21 09:47 SEDATION doxycycline [DOXYCYCLINE] AdvReac Mild esophogeal Verified 04/11/21 09:47 iritation methylprednisolone AdvReac Mild heartburn Verified 04/11/21 09:47 [From SOLU-MEDROL] ertapenem [From INVANZ] AdvReac Unknown possible Verified 04/11/21 09:47 cause of bullous pemphigoid Active Medications: Current Medications Generic Name Dose Route Start Last Admin Trade Name Freq PRN Reason Stop Dose Admin Chlorhexidine Gluconate 15 ml 05/15/21 09:00 Chlorhexidine Gluc Oral Rinse 15 Ml Mouthwash BUCCAL TID WICHO Hydrocortisone Sodium Succinate 50 mg 05/15/21 07:00 05/15/21 07:23 Hydrocortisone Sod Succ/Pf 100 Mg Vial IVPUSH 50 mg Q12H WICHO Administration Metronidazole 500 mg in 100 mls @ 100 mls/hr 05/14/21 21:00 05/15/21 04:22 Flagyl IV Infused Q6H WICHO Infusion Piperacillin Sod/Tazobactam 50 mls @ 100 mls/hr 05/14/21 20:15 05/15/21 04:11 Sod 3.375 gm/ Sodium Chloride IV Infused Q6H WICHO Infusion Vancomycin HCl 1,000 mg/ 270 mls @ 270 mls/hr 05/15/21 15:00 Sodium Chloride IV Q24H WICHO Vasopressin 20 unit/ Sodium 101 mls @ 12.12 mls/hr 05/14/21 22:45 05/15/21 04:36 Chloride IVCONT 0.04 unit/min .Q8H20M WICHO 12.12 mls/hr Administration 0.04 UNIT/MIN Phenylephrine HCl 100 mg/ 260 mls @ 0 mls/hr 05/14/21 23:00 05/15/21 06:25 Sodium Chloride IVCONT 5 mcg/kg/min .Q0M WICHO 65.75 mls/hr Titration Protocol Per Protocol Norepinephrine Bitartrate 8 mg in 250 mls @ 0 mls/hr 05/14/21 23:00 05/15/21 06:00 Levophed IVCONT 0.1 mcg/kg/min .Q0M WICHO 15.81 mls/hr Titration Protocol Per Protocol Propofol 1,000 mg in 100 mls @ 0 mls/hr 05/15/21 01:15 05/15/21 06:25 Diprivan IVCONT 30 mcg/kg/min .Q0M WICHO 15.17 mls/hr Administration Protocol Per Protocol Potassium Chloride/Sodium Chloride 20 meq in 1,000 mls @ 80 mls/hr 05/15/21 06:45 05/15/21 07:30 IVCONT 80 mls/hr .[id number] WICHO Administration Pantoprazole Sodium 40 mg 05/15/21 06:30 05/15/21 05:33 Pantoprazole Sodium 40 Mg/10 Ml Vial IVPUSH 40 mg DAILY@0630 [facility] Administration Pharmacy Consult 1 each 05/14/21 20:09 Consult Rx Vancomycin Dosing MISCELLANE DAILY PRN Consult order Home Medications Medication Instructions Recorded Confirmed Last Taken Type bisacodyl 10 mg MA DAILY 10/09/20 03/28/21 Unknown History gabapentin 300 mg PO BID@0630,1200 10/09/20 03/28/21 Unknown History metformin 500 mg PO BID 10/09/20 03/28/21 Unknown History tramadol 50 mg PO BID PRN 10/09/20 03/28/21 Unknown History trazodone 25 mg PO BEDTIME 10/09/20 03/28/21 Unknown History acetaminophen 650 mg PO Q4H PRN 03/13/21 03/28/21 Unknown History amlodipine 7.5 mg PO DAILY 03/13/21 03/28/21 Unknown History aspirin 81 mg PO DAILY 03/13/21 03/28/21 Unknown History gabapentin 600 mg PO BEDTIME 03/13/21 03/28/21 Unknown History insulin lispro [Humalog U-100 100 sliding scale dose SUBCUT 03/13/21 03/28/21 Unknown History Insulin] QIDACHS niacinamide 500 mg PO TID 03/13/21 03/28/21 Unknown History prednisone 10 mg PO DAILY 03/13/21 03/28/21 Unknown History rosuvastatin 10 mg PO DAILY 03/13/21 03/28/21 Unknown History alum-mag hydroxide-simeth [Maalox ml 04/20/21 Unknown History Plus] doxycycline hyclate 100 mg PO DAILY 04/20/21 04/20/21 Unknown History fluconazole 100 mg PO DAILY 04/20/21 04/20/21 Unknown History nystatin-triamcinolone 1 appl TOPICAL BID 04/20/21 04/20/21 Unknown History Physical Exam Vital Signs: Vital Signs: Last Vital Signs Temp 99.7 F 05/15/21 06:59 Pulse 93 05/15/21 06:59 Resp 17 05/15/21 06:59 BP 121/59 L 05/15/21 06:59 Pulse Ox 100 05/15/21 06:59 Oxygen Flow Rate 2 05/14/21 20:19 Body Mass Index 26.6 Const: General: cooperative, awake and ill appearing; No healthy appearing Nutritional Appearance: malnourished Orientation/consciousness: oriented to person, oriented to place and oriented to time Eyes: General: appearance normal, both eyes and all related structures Chest: Chest palpation & inspection: normal inspection of the chest Resp: Effort & Inspection: abnormal respiratory effort and audible wheezes Cardio: Rate: regular rate GI: Inspection: Yes normal to inspection Skin: Hair: normal Neuro: General: oriented to person, oriented to place and oriented to time Extrem: General: Yes normal to inspection Results Labs Result diagrams: 05/15/21 05:30 05/15/21 05:30 Labs: Abnormal lab results 05/14/21 05/14/21 05/14/21 Range/Units 14:04 14:17 14:17 WBC (4.8-10.8) X10*3/uL RBC (4.60-5.80) X10*6/uL Hgb (14.0-18.0) g/dl Hct (42-52) % RDW 17.6 H (11.0-16.0) % MPV 8.7 L (9.4-12.4) fL Neutrophils % (Manual) (45-73) % Band Neutrophils % 30 H (3-5) % Lymphocytes % (Manual) 3 L (20-40) % Monocytes % (Manual) (2-11) % Abs Neuts (Manual) (2.2-7.9) X10*3/uL Lymphocytes # (Manual) 0.2 L (0.6-4.8) X10*3/uL PT (10.8-13.0) SEC APTT (24.1-38.0) SEC VBG pH (7.32-7.43) VBG HCO3 (22-26) mmol/L Sodium (135-145) mmol/L Chloride (96-108) mmol/L Carbon Dioxide 19 L (22-29) mmol/L BUN 28 H D (9-16) mg/dL Creatinine 1.95 H (0.5-1.4) mg/dL POC Glucose 148 H (60-115) mg/dL Random Glucose 168 H D (60-115) mg/dL Lactic Acid (0.5-2.0) mmol/L Lactic Acid Fup @ 2Hr (0.5-2.0) mmol/L Lactic Acid Fup @ 4Hr (0.5-2.0) mmol/L Calcium (8.4-10.2) mg/dL Magnesium (1.6-2.6) mg/dL Total Bilirubin 1.4 H (0.0-1.0) mg/dL Direct Bilirubin (0.0-0.5) mg/dL Total Protein 6.1 L (6.5-8.0) g/dL Albumin (3.5-5.0) g/dL Urine pH (5.0-8.0) Urine Protein (NEG-TRACE) MG/DL Urine Nitrite (NEG) Ur Leukocyte Esterase (NEG) Urine RBC (0) /HPF 05/14/21 05/14/21 05/14/21 Range/Units 14:18 16:26 17:52 WBC (4.8-10.8) X10*3/uL RBC (4.60-5.80) X10*6/uL Hgb (14.0-18.0) g/dl Hct (42-52) % RDW (11.0-16.0) % MPV (9.4-12.4) fL Neutrophils % (Manual) (45-73) % Band Neutrophils % (3-5) % Lymphocytes % (Manual) (20-40) % Monocytes % (Manual) (2-11) % Abs Neuts (Manual) (2.2-7.9) X10*3/uL Lymphocytes # (Manual) (0.6-4.8) X10*3/uL PT (10.8-13.0) SEC APTT (24.1-38.0) SEC VBG pH (7.32-7.43) VBG HCO3 (22-26) mmol/L Sodium (135-145) mmol/L Chloride (96-108) mmol/L Carbon Dioxide (22-29) mmol/L BUN (9-16) mg/dL Creatinine (0.5-1.4) mg/dL POC Glucose (60-115) mg/dL Random Glucose (60-115) mg/dL Lactic Acid 3.8 H* (0.5-2.0) mmol/L Lactic Acid Fup @ 2Hr 4.2 H* (0.5-2.0) mmol/L Lactic Acid Fup @ 4Hr (0.5-2.0) mmol/L Calcium (8.4-10.2) mg/dL Magnesium (1.6-2.6) mg/dL Total Bilirubin (0.0-1.0) mg/dL Direct Bilirubin (0.0-0.5) mg/dL Total Protein (6.5-8.0) g/dL Albumin (3.5-5.0) g/dL Urine pH >= 9.0 H (5.0-8.0) Urine Protein 2+ H (NEG-TRACE) MG/DL Urine Nitrite POS H (NEG) Ur Leukocyte Esterase 3+ H (NEG) Urine RBC 5-9 H (0) /HPF 05/14/21 05/14/21 05/14/21 Range/Units 18:52 21:31 22:29 WBC 21.7 H (4.8-10.8) X10*3/uL RBC 3.75 L D (4.60-5.80) X10*6/uL Hgb 11.3 L (14.0-18.0) g/dl Hct 35.7 L (42-52) % RDW 18.3 H (11.0-16.0) % MPV 9.3 L (9.4-12.4) fL Neutrophils % (Manual) 28 L (45-73) % Band Neutrophils % 53 H (3-5) % Lymphocytes % (Manual) 3 L (20-40) % Monocytes % (Manual) (2-11) % Abs Neuts (Manual) 17.6 H (2.2-7.9) X10*3/uL Lymphocytes # (Manual) (0.6-4.8) X10*3/uL PT (10.8-13.0) SEC APTT 21.0 L D (24.1-38.0) SEC VBG pH (7.32-7.43) VBG HCO3 (22-26) mmol/L Sodium (135-145) mmol/L Chloride (96-108) mmol/L Carbon Dioxide (22-29) mmol/L BUN (9-16) mg/dL Creatinine (0.5-1.4) mg/dL POC Glucose (60-115) mg/dL Random Glucose (60-115) mg/dL Lactic Acid (0.5-2.0) mmol/L Lactic Acid Fup @ 2Hr (0.5-2.0) mmol/L Lactic Acid Fup @ 4Hr 4.8 H* (0.5-2.0) mmol/L Calcium (8.4-10.2) mg/dL Magnesium (1.6-2.6) mg/dL Total Bilirubin (0.0-1.0) mg/dL Direct Bilirubin (0.0-0.5) mg/dL Total Protein (6.5-8.0) g/dL Albumin (3.5-5.0) g/dL Urine pH (5.0-8.0) Urine Protein (NEG-TRACE) MG/DL Urine Nitrite (NEG) Ur Leukocyte Esterase (NEG) Urine RBC (0) /HPF 05/14/21 05/14/21 05/14/21 Range/Units 22:29 23:24 23:38 WBC (4.8-10.8) X10*3/uL RBC (4.60-5.80) X10*6/uL Hgb (14.0-18.0) g/dl Hct (42-52) % RDW (11.0-16.0) % MPV (9.4-12.4) fL Neutrophils % (Manual) (45-73) % Band Neutrophils % (3-5) % Lymphocytes % (Manual) (20-40) % Monocytes % (Manual) (2-11) % Abs Neuts (Manual) (2.2-7.9) X10*3/uL Lymphocytes # (Manual) (0.6-4.8) X10*3/uL PT (10.8-13.0) SEC APTT (24.1-38.0) SEC VBG pH (7.32-7.43) VBG HCO3 (22-26) mmol/L Sodium (135-145) mmol/L Chloride 114 H (96-108) mmol/L Carbon Dioxide 13 L (22-29) mmol/L BUN 26 H (9-16) mg/dL Creatinine 1.99 H (0.5-1.4) mg/dL POC Glucose 168 H (60-115) mg/dL Random Glucose 190 H (60-115) mg/dL Lactic Acid 10.5 H* (0.5-2.0) mmol/L Lactic Acid Fup @ 2Hr (0.5-2.0) mmol/L Lactic Acid Fup @ 4Hr (0.5-2.0) mmol/L Calcium 7.5 L D (8.4-10.2) mg/dL Magnesium (1.6-2.6) mg/dL Total Bilirubin (0.0-1.0) mg/dL Direct Bilirubin (0.0-0.5) mg/dL Total Protein (6.5-8.0) g/dL Albumin (3.5-5.0) g/dL Urine pH (5.0-8.0) Urine Protein (NEG-TRACE) MG/DL Urine Nitrite (NEG) Ur Leukocyte Esterase (NEG) Urine RBC (0) /HPF 05/14/21 05/15/21 05/15/21 Range/Units 23:38 00:40 01:55 WBC (4.8-10.8) X10*3/uL RBC (4.60-5.80) X10*6/uL Hgb (14.0-18.0) g/dl Hct (42-52) % RDW (11.0-16.0) % MPV (9.4-12.4) fL Neutrophils % (Manual) (45-73) % Band Neutrophils % (3-5) % Lymphocytes % (Manual) (20-40) % Monocytes % (Manual) (2-11) % Abs Neuts (Manual) (2.2-7.9) X10*3/uL Lymphocytes # (Manual) (0.6-4.8) X10*3/uL PT (10.8-13.0) SEC APTT (24.1-38.0) SEC VBG pH 7.19 L* (7.32-7.43) VBG HCO3 13 L (22-26) mmol/L Sodium (135-145) mmol/L Chloride (96-108) mmol/L Carbon Dioxide (22-29) mmol/L BUN (9-16) mg/dL Creatinine (0.5-1.4) mg/dL POC Glucose (60-115) mg/dL Random Glucose (60-115) mg/dL Lactic Acid (0.5-2.0) mmol/L Lactic Acid Fup @ 2Hr 7.5 H* (0.5-2.0) mmol/L Lactic Acid Fup @ 4Hr (0.5-2.0) mmol/L Calcium (8.4-10.2) mg/dL Magnesium (1.6-2.6) mg/dL Total Bilirubin 1.4 H (0.0-1.0) mg/dL Direct Bilirubin 0.7 H (0.0-0.5) mg/dL Total Protein 4.7 L D (6.5-8.0) g/dL Albumin 2.8 L (3.5-5.0) g/dL Urine pH (5.0-8.0) Urine Protein (NEG-TRACE) MG/DL Urine Nitrite (NEG) Ur Leukocyte Esterase (NEG) Urine RBC (0) /HPF 05/15/21 05/15/21 05/15/21 Range/Units 02:33 04:08 05:30 WBC 23.4 H (4.8-10.8) X10*3/uL RBC 3.79 L (4.60-5.80) X10*6/uL Hgb 11.3 L (14.0-18.0) g/dl Hct 35.8 L (42-52) % RDW 18.5 H (11.0-16.0) % MPV 9.0 L (9.4-12.4) fL Neutrophils % (Manual) 38 L (45-73) % Band Neutrophils % 46 H (3-5) % Lymphocytes % (Manual) 4 L (20-40) % Monocytes % (Manual) 1 L (2-11) % Abs Neuts (Manual) 19.7 H (2.2-7.9) X10*3/uL Lymphocytes # (Manual) (0.6-4.8) X10*3/uL PT (10.8-13.0) SEC APTT (24.1-38.0) SEC VBG pH 7.25 L (7.32-7.43) VBG HCO3 17 L (22-26) mmol/L Sodium (135-145) mmol/L Chloride (96-108) mmol/L Carbon Dioxide (22-29) mmol/L BUN (9-16) mg/dL Creatinine (0.5-1.4) mg/dL POC Glucose (60-115) mg/dL Random Glucose (60-115) mg/dL Lactic Acid (0.5-2.0) mmol/L Lactic Acid Fup @ 2Hr (0.5-2.0) mmol/L Lactic Acid Fup @ 4Hr 8.6 H* (0.5-2.0) mmol/L Calcium (8.4-10.2) mg/dL Magnesium (1.6-2.6) mg/dL Total Bilirubin (0.0-1.0) mg/dL Direct Bilirubin (0.0-0.5) mg/dL Total Protein (6.5-8.0) g/dL Albumin (3.5-5.0) g/dL Urine pH (5.0-8.0) Urine Protein (NEG-TRACE) MG/DL Urine Nitrite (NEG) Ur Leukocyte Esterase (NEG) Urine RBC (0) /HPF 05/15/21 05/15/21 05/15/21 Range/Units 05:30 05:30 07:13 WBC (4.8-10.8) X10*3/uL RBC (4.60-5.80) X10*6/uL Hgb (14.0-18.0) g/dl Hct (42-52) % RDW (11.0-16.0) % MPV (9.4-12.4) fL Neutrophils % (Manual) (45-73) % Band Neutrophils % (3-5) % Lymphocytes % (Manual) (20-40) % Monocytes % (Manual) (2-11) % Abs Neuts (Manual) (2.2-7.9) X10*3/uL Lymphocytes # (Manual) (0.6-4.8) X10*3/uL PT 13.4 H (10.8-13.0) SEC APTT (24.1-38.0) SEC VBG pH (7.32-7.43) VBG HCO3 (22-26) mmol/L Sodium 148 H (135-145) mmol/L Chloride 116 H (96-108) mmol/L Carbon Dioxide 16 L (22-29) mmol/L BUN 25 H (9-16) mg/dL Creatinine 1.58 H (0.5-1.4) mg/dL POC Glucose 184 H (60-115) mg/dL Random Glucose 215 H (60-115) mg/dL Lactic Acid (0.5-2.0) mmol/L Lactic Acid Fup @ 2Hr (0.5-2.0) mmol/L Lactic Acid Fup @ 4Hr (0.5-2.0) mmol/L Calcium 7.7 L (8.4-10.2) mg/dL Magnesium 1.5 L (1.6-2.6) mg/dL Total Bilirubin 1.5 H (0.0-1.0) mg/dL Direct Bilirubin 0.7 H (0.0-0.5) mg/dL Total Protein 4.8 L (6.5-8.0) g/dL Albumin 2.8 L (3.5-5.0) g/dL Urine pH (5.0-8.0) Urine Protein (NEG-TRACE) MG/DL Urine Nitrite (NEG) Ur Leukocyte Esterase (NEG) Urine RBC (0) /HPF Short CBC 05/14/21 05/14/21 05/15/21 Range/Units 14:17 22:29 05:30 WBC 6.7 21.7 H 23.4 H (4.8-10.8) X10*3/uL Hgb 14.1 11.3 L 11.3 L (14.0-18.0) g/dl Hct 44.2 35.7 L 35.8 L (42-52) % Plt Count 235 251 246 (160-400) X10*3/uL BMP 05/14/21 05/14/21 05/15/21 14:17 22:29 05:30 Sodium 140 143 148 H Potassium 4.2 3.8 3.6 Chloride 106 114 H 116 H Carbon Dioxide 19 L 13 L 16 L BUN 28 H D 26 H 25 H Creatinine 1.95 H 1.99 H 1.58 H Calcium 8.7 7.5 L D 7.7 L Liver Function 05/14/21 05/15/21 05/15/21 Range/Units 14:17 00:40 05:30 Total Bilirubin 1.4 H 1.4 H 1.5 H (0.0-1.0) mg/dL Direct Bilirubin 0.4 0.7 H 0.7 H (0.0-0.5) mg/dL AST 28 18 20 (5-37) U/L ALT 29 22 25 (0-40) U/L Alkaline Phosphatase 66 42 D 41 (39-117) U/L Albumin 3.5 2.8 L 2.8 L (3.5-5.0) g/dL Urine 05/14/21 Range/Units 17:52 Urine Color YELLOW Urine Appearance CLOUDY Urine pH >= 9.0 H (5.0-8.0) Ur Specific Hewitt <= 1.005 (1.005-1.025) Urine Protein 2+ H (NEG-TRACE) MG/DL Urine Glucose (UA) NEG (NEG) MG/DL All other labs normal. CT findings There is a Carty's catheter and mildly prominent bladder. There is diffuse bladder wall thickening with moderate haziness surrounding the left bladder and appears contiguous to bilateral paracolic gutters measuring fluid density( -2.75 HU). A ruptured intraperitoneal left superior bladder wall should be considered. Differential diagnoses may include a seroma, less likely lymphocele as there is no surgical changes. There is no intra-abdominal free air. Assessment and Plan (1) Recurrent UTI (urinary tract infection): Status: Acute (2) Hypotonic neurogenic bladder: Status: Acute (3) Septic shock: Status: Acute Per ICU staff Will review creatinine and urine output Procedures Date of Service Date of Service: 05/14/21
[2021-05-15] MEDS: Phenylephrine HCL 100 MG in 0.9 % Sodium Chloride 250 ML 46.03 MG IVCONT (08:20)
[2021-05-15] MEDS: Chlorhexidine Gluc Oral Rinse 15 ML MOUTHWASH BUCCAL ×3 (08:22→20:32)
--- NOTE | 2021-05-15 09:00 | W.PM.CCCN ---
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 none and a recent urinary tract infection with antibiotics in possible prednisone maintenance dose because of his skin issues and now comes in with a septic presentation and a bedside echo that I did when I saw him in the emergency room yesterday revealing normal LV and RV function with no primary valve or pericardial disease in and due to hypoxia a CT scan that I reviewed failed to show any evidence of infiltrate but abdomen was tight distended with no bowel sounds and and the scan of his abdomen did reveal extensive stranding in the toe bilaterally with ascending and descending colon and urine basically showing significant pyuria and evidence of recurrent infection so Nunez catheter was changed he was pancultured started on aggressive antibiotics and with the question of course of C diff colitis also he was started on IV metronidazole and as he continued to fail with progressively diminishing pH down to 7.19 and elevating lactate to a peak of 10.5 we introduced the ventilator as a means of supporting him along with his positive inotropes and that seemed to be successful currently pH is 7.25 and negative base excess is repairing and apparently renal function which was an acute on chronic stage III level of renal failure is also improving and he remains non oliguric Preliminarily the urinalysis indicates source of infection and the culture is growing a Gram-negative adriane with a previous culture for Proteus The C diff antigen is negative Review of Systems Review of Systems: Yes Unobtainable due to mental status PMFSH Past Medical History Medical History BPH (benign prostatic hyperplasia) Chronic pain syndrome Chronic renal failure Dehydration Depression Diabetes mellitus type 2 in obese Multiple sclerosis Urinary tract infection Family History Family History Family/Other Heart attack Father Diabetes Surgical History Surgical History Hx of removal of cyst Social History Social History Household Members: Other Household Members Other:: lives in prison Housing: Penitentiary Housing Other:: [facility] Do you presently have visiting nurse or other home services: No Unable to assess alcohol history related to: Unable to respond Alcohol intake: never Patient Tobacco Use Status: Tobacco use Unknown Cigarette Packs Per Day: 1 Use of substances other than those prescribed or required for medical reasons: Unable to respond Currently Displaying Signs/Symptoms of Drug Intoxication Withdrawal: No Advance Directives: Yes Advance Directives on File: Yes Advance Directives Date on File: 10/13/20 Do you have thoughts of harming others: None Do you have a plan to hurt others: No Plan Recently lost weight without trying: Unsure service: Yes Current occupational status: retired Meds Allergies Allergy/AdvReac Type Severity Reaction Status Date / Time Benzodiazepines Allergy Unknown UNKNOWN Verified 04/11/21 09:47 [BENZODIAZEPINES] dalfampridine [From AMPYRA] Allergy Unknown UNKNOWN Verified 04/11/21 09:47 duloxetine [From CYMBALTA] Allergy Unknown UNKNOWN Verified 04/11/21 09:47 ezetimibe [From ZETIA] Allergy Unknown UNKNOWN Verified 04/11/21 09:47 niacin [NIACIN] Allergy Unknown UNKNOWN Verified 04/11/21 09:47 pravastatin [PRAVASTATIN] Allergy Unknown UNKNOWN Verified 04/11/21 09:47 Qqfjurh-Txr-Jhw Reductase Allergy Unknown UNKNOWN Verified 04/11/21 09:47 Inhibitor [AUGOJUI-SGP-MOS REDUCTASE INHIBITOR] lorazepam [From ATIVAN] AdvReac Severe EXCESSIVE Verified 04/11/21 09:47 SEDATION doxycycline [DOXYCYCLINE] AdvReac Mild esophogeal Verified 04/11/21 09:47 iritation methylprednisolone AdvReac Mild heartburn Verified 04/11/21 09:47 [From SOLU-MEDROL] ertapenem [From INVANZ] AdvReac Unknown possible Verified 04/11/21 09:47 cause of bullous pemphigoid Active Medications: Current Medications Generic Name Dose Route Start Last Admin Trade Name Freq PRN Reason Stop Dose Admin Chlorhexidine Gluconate 15 ml 05/15/21 09:00 05/15/21 08:22 Chlorhexidine Gluc Oral Rinse 15 Ml Mouthwash BUCCAL 15 ml TID WICHO Administration Hydrocortisone Sodium Succinate 50 mg 05/15/21 07:00 05/15/21 07:23 Hydrocortisone Sod Succ/Pf 100 Mg Vial IVPUSH 50 mg Q12H WICHO Administration Metronidazole 500 mg in 100 mls @ 100 mls/hr 05/14/21 21:00 05/15/21 08:32 Flagyl IV 100 mls/hr Q6H WICHO Administration Piperacillin Sod/Tazobactam 50 mls @ 100 mls/hr 05/14/21 20:15 05/15/21 08:31 Sod 3.375 gm/ Sodium Chloride IV 100 mls/hr Q6H WICHO Administration Vancomycin HCl 1,000 mg/ 270 mls @ 270 mls/hr 05/15/21 15:00 Sodium Chloride IV Q24H WICHO Vasopressin 20 unit/ Sodium 101 mls @ 12.12 mls/hr 05/14/21 22:45 05/15/21 04:36 Chloride IVCONT 0.04 unit/min .Q8H20M WICHO 12.12 mls/hr Administration 0.04 UNIT/MIN Phenylephrine HCl 100 mg/ 260 mls @ 0 mls/hr 05/14/21 23:00 05/15/21 08:20 Sodium Chloride IVCONT 3.5 mcg/kg/min .Q0M WICHO 46.03 mls/hr Administration Protocol Per Protocol Norepinephrine Bitartrate 8 mg in 250 mls @ 0 mls/hr 05/14/21 23:00 05/15/21 06:00 Levophed IVCONT 0.1 mcg/kg/min .Q0M WICHO 15.81 mls/hr Titration Protocol Per Protocol Propofol 1,000 mg in 100 mls @ 0 mls/hr 05/15/21 01:15 05/15/21 06:25 Diprivan IVCONT 30 mcg/kg/min .Q0M WICHO 15.17 mls/hr Administration Protocol Per Protocol Potassium Chloride/Sodium Chloride 20 meq in 1,000 mls @ 80 mls/hr 05/15/21 06:45 05/15/21 07:30 IVCONT 80 mls/hr .[id number] WICHO Administration Pantoprazole Sodium 40 mg 05/15/21 06:30 05/15/21 05:33 Pantoprazole Sodium 40 Mg/10 Ml Vial IVPUSH 40 mg DAILY@0630 [facility] Administration Pharmacy Consult 1 each 05/14/21 20:09 Consult Rx Vancomycin Dosing MISCELLANE DAILY PRN Consult order Home Medications Medication Instructions Recorded Confirmed Last Taken Type bisacodyl 10 mg WI DAILY 10/09/20 03/28/21 Unknown History gabapentin 300 mg PO BID@0630,1200 10/09/20 03/28/21 Unknown History metformin 500 mg PO BID 10/09/20 03/28/21 Unknown History tramadol 50 mg PO BID PRN 10/09/20 03/28/21 Unknown History trazodone 25 mg PO BEDTIME 10/09/20 03/28/21 Unknown History acetaminophen 650 mg PO Q4H PRN 03/13/21 03/28/21 Unknown History amlodipine 7.5 mg PO DAILY 03/13/21 03/28/21 Unknown History aspirin 81 mg PO DAILY 03/13/21 03/28/21 Unknown History gabapentin 600 mg PO BEDTIME 03/13/21 03/28/21 Unknown History insulin lispro [Humalog U-100 100 sliding scale dose SUBCUT 03/13/21 03/28/21 Unknown History Insulin] QIDACHS niacinamide 500 mg PO TID 03/13/21 03/28/21 Unknown History prednisone 10 mg PO DAILY 03/13/21 03/28/21 Unknown History rosuvastatin 10 mg PO DAILY 03/13/21 03/28/21 Unknown History alum-mag hydroxide-simeth [Maalox ml 04/20/21 Unknown History Plus] doxycycline hyclate 100 mg PO DAILY 04/20/21 04/20/21 Unknown History fluconazole 100 mg PO DAILY 04/20/21 04/20/21 Unknown History nystatin-triamcinolone 1 appl TOPICAL BID 04/20/21 04/20/21 Unknown History Physical Exam Vital Signs: Vital Signs: Last Vital Signs Temp 99.7 F 05/15/21 08:00 Pulse 92 05/15/21 08:00 Resp 24 H 05/15/21 08:00 BP 119/64 05/15/21 08:20 Pulse Ox 100 05/15/21 08:00 Oxygen Flow Rate 2 05/14/21 20:19 Body Mass Index 26.1 Sedated and intubated and CVP measuring between 3 and 5 with hypernatremia so IV fluid maintenance has been restarted Cardiac exam with normal S1 and normal S2 with no gallops and good carotid upstrokes Chest clear of adventitious sounds Abdomen no free air on x-ray no significant ileus pattern belly still distended Skin with a diffuse almost coalescent purpuric/ecchymotic appearance to it very fragile Results Labs CBC & Chem 7: 05/15/21 05:30 05/15/21 05:30 Labs: Short CBC 05/14/21 05/14/21 05/15/21 Range/Units 14:17 22:29 05:30 WBC 6.7 21.7 H 23.4 H (4.8-10.8) X10*3/uL Hgb 14.1 11.3 L 11.3 L (14.0-18.0) g/dl Hct 44.2 35.7 L 35.8 L (42-52) % Plt Count 235 251 246 (160-400) X10*3/uL BMP 05/14/21 05/14/21 05/15/21 14:17 22:29 05:30 Sodium 140 143 148 H Potassium 4.2 3.8 3.6 Chloride 106 114 H 116 H Carbon Dioxide 19 L 13 L 16 L BUN 28 H D 26 H 25 H Creatinine 1.95 H 1.99 H 1.58 H Calcium 8.7 7.5 L D 7.7 L Liver Function 05/14/21 05/15/21 05/15/21 Range/Units 14:17 00:40 05:30 Total Bilirubin 1.4 H 1.4 H 1.5 H (0.0-1.0) mg/dL Direct Bilirubin 0.4 0.7 H 0.7 H (0.0-0.5) mg/dL AST 28 18 20 (5-37) U/L ALT 29 22 25 (0-40) U/L Alkaline Phosphatase 66 42 D 41 (39-117) U/L Albumin 3.5 2.8 L 2.8 L (3.5-5.0) g/dL Urine 05/14/21 Range/Units 17:52 Urine Color YELLOW Urine Appearance CLOUDY Urine pH >= 9.0 H (5.0-8.0) Ur Specific [place] <= 1.005 (1.005-1.025) Urine Protein 2+ H (NEG-TRACE) MG/DL Urine Glucose (UA) NEG (NEG) MG/DL Microbiology Microbiology Results: Microbiology 05/14/21 17:52 Urine clean catch - Clean Catch Midstream Urine Culture - Preliminary Gram negative adriane Assessment and Plan (1) Decubitus ulcer of coccygeal region, stage 2: Status: Acute (2) Aspiration pneumonitis: Status: Acute (3) Sepsis: Status: Acute (4) Acute hypotension: Status: Acute (5) Recurrent UTI (urinary tract infection): Status: Acute (6) Hypotonic neurogenic bladder: Status: Acute (7) Hematuria: Status: Acute (8) Constipation: Status: Acute (9) Septic shock: Status: Acute (10) Shoulder pain: Status: Acute (11) Anemia: Status: Acute (12) Wound of foot: Status: Acute (13) Lytic lesion of bone on x-ray: Status: Acute (14) Multiple sclerosis: Status: Acute At this point all signs pointing to recurrent urinary tract infection and I will probably give 1 more empiric dose of Levaquin as a synergistic with the Zosyn until we get sensitivities back and 1 empiric dose of fluconazole continue IV fluids following CVP management and wean inotropes as allowed
--- NOTE | 2021-05-15 10:25 | MHC.CLN ---
RE: CONSULT PT IS INTUBATED AND SEDATED, BUT CURRENTLY WITHOUT OG TUBE IF OG TUBE PLACED; RECOMMEND GLUCERNA AT MAX GOAL RATE 80CC/HR WITH 120CC FREE WATER FLUSHES Q 6 HRS TO PROVIDE 1920KCALS (2320KCALS WITH SEDATION BASED ON ABW), 80G PROTEIN (.97G/KG) , 2118CC TOTAL WATER FROM FORMULA AND FLUSHES (26CC/KG) START FORMULA AT 20CC/HR AND INCREASE BY 10CC Q 4 HRS UNTIL MAX GOAL IS ACHIEVED PT WITH INCREASED NUTRITION RISK R/T PRESSURE INJURY, HOWEVER REMAINING CONSERVATIVE WITH PO PROTEIN R/T CRF MONITOR TOLERANCE, RESIDUALS AND LYTES SEE ALSO CLINICAL NUTRITION ASSESSMENT
[2021-05-15] MEDS: levoFLOXacin/D5W 750 MG/150 ML PIGGYBACK 100 MG IV (11:03)
[2021-05-15 11:05] LABS: VBG Base Excess -9.8 mmol/L; VBG HCO3 16 mmol/L (22-26); VBG pCO2 35 mmHg; VBG pH 7.26 (7.32-7.43); VBG pO2 48 mmHg
[2021-05-15 11:23] LABS: Glucose, Whole Blood 212 mg/dL (60-115)
--- NOTE | 2021-05-15 11:52 | MHC.CM.PN ---
CM met with Patient at bedside; he appeared unable to respond. CM spoke over the phone with /HCP/Alyx @ [phone] and addressed IMM with her,mailing the original to her via certified mail and placing a copy in the chart.Patient is a LTC Resident at [facility] and the goal is to return there at time of dc. CM has initiated and will follow for dc planning.
[2021-05-15] MEDS: Insulin Lispro 100 UNIT/ML 3 ML VIAL SUBCUT ×3 (11:55→21:22)
[2021-05-15 12:16] LABS: Anion Gap 17 (12-20); Blood Urea Nitrogen 24 mg/dL (9-16); Calcium 7.3 mg/dL (8.4-10.2); Carbon Dioxide 16 mmol/L (22-29); Chloride 116 mmol/L (96-108); Creatinine Clr Calc Pharmacy 48.8; Estimated Glomerular Filt Rate 51; Glucose Random 223 mg/dL (60-115); Potassium 3.4 mmol/L (3.3-5.1); Sodium 146 mmol/L (135-145)
[2021-05-15] MEDS: propofoL 1,000 MG/100 ML VIAL 12.65 MG IVCONT ×3 (13:16→22:39)
[2021-05-15] MEDS: vancomycin HCL 1,000 MG in 0.9 % Sodium Chloride 250 ML 270 MG IV (14:02)
[2021-05-15 16:27] LABS: Glucose, Whole Blood 188 mg/dL (60-115)
[2021-05-15 16:34] LABS: VBG Base Excess -10.6 mmol/L; VBG HCO3 15 mmol/L (22-26); VBG pCO2 32 mmHg; VBG pH 7.26 (7.32-7.43); VBG pO2 55 mmHg
[2021-05-15 16:58] LABS: Lactic Acid 3.5 mmol/L (0.5-2.0)
[2021-05-15 17:00] LABS: Anion Gap 16 (12-20); Blood Urea Nitrogen 23 mg/dL (9-16); Calcium 7.5 mg/dL (8.4-10.2); Carbon Dioxide 17 mmol/L (22-29); Chloride 116 mmol/L (96-108); Creatinine Clr Calc Pharmacy 49.2; Estimated Glomerular Filt Rate 51; Glucose Random 221 mg/dL (60-115); Potassium 3.8 mmol/L (3.3-5.1); Sodium 145 mmol/L (135-145)
[2021-05-15] MEDS: KCl 20 mEq in 5 % Dextrose 20 MEQ/1,000 ML IV.SOLN 42 MEQ IVCONT (17:40)
[2021-05-15 17:50] LABS: Venous Blood Gas Refer to POC result
[2021-05-15 18:17] LABS: Venous Blood Gas Refer to POC result
[2021-05-15 18:32] LABS: Reflex Lactate? Lactic Acid Added
[2021-05-15 19:47] LABS: ~Lactic Acid-LAB USE ONLY 3.6 mmol/L (0.5-2.0)
[2021-05-15] MEDS: Phenylephrine HCL 100 MG in 0.9 % Sodium Chloride 250 ML 10.52 MG IVCONT (20:12)
[2021-05-15 20:25] LABS: Cancel Lactic Acid Canceled
[2021-05-15 20:26] LABS: Reflex Lactate? 2 N
[2021-05-15 21:11] LABS: Glucose, Whole Blood 170 mg/dL (60-115)
[2021-05-16] VITALS (40 sets, daily range): BP systolic 79–150; BP diastolic 42–71; PULSE 64–94; RESP 16–24; TEMP 36.6–38; O2SAT 96–100; BMI 27.3
[2021-05-16] MEDS: metroNIDAZOLE/NS 500 MG/100 ML PIGGYBACK 100 MG IV ×2 (00:40→07:40)
[2021-05-16 01:17] LABS: Venous Blood Gas Refer to POC result
[2021-05-16 01:18] LABS: VBG Base Excess -7.6 mmol/L; VBG HCO3 16 mmol/L (22-26); VBG pCO2 29 mmHg; VBG pH 7.35 (7.32-7.43); VBG pO2 64 mmHg
[2021-05-16 01:38] LABS: Lactic Acid 2.8 mmol/L (0.5-2.0)
[2021-05-16] MEDS: Piperacillin Sodium/Tazobactam 3.375 GM in 0.9 % Sodium Chloride 50 ML IV ×2 (02:44→07:41)
[2021-05-16 03:09] LABS: Reflex Lactate? Lactic Acid Added
--- NOTE | 2021-05-16 04:29 | PC.NURSE ---
sedated under the influences of propofol infusion for ventilator management. attempts to open ou with repositioning. extremities are rigid and resistant to rom. lower legs are atrophied. complexion pale. right eye looks icteric. scleral edema appreciated. skin has numerous lesions across surfaces with a group of unbroken blisters noted lateral left lower abdomen. stage 1-2 breaks down present sacrum and coccyx region.feet have numerous lesions. dsgs changed on feet and xeroform fabric applied to open areas and wrapped with dsd. dependent edema present in pelvis and upper legs. transorally intubated and mechanically ventilated with pressure control ventilation rr 24 bpm peak insp pressure 15 fio2 30% peep 5 cm. breath sounds diminished right lung. scant clear in-line secretions. sao2 99-100% Ve 10-11 lpm. lactate trending downward last one is 2.8. venous abg revealed compensated metabolic acidosis. have been fortunate to be able to wean off neosynephrine infusion. levophed and vasopressin infusions continue to run to achieve b/p guidelines. cvp readings 5-7 mmhg. ecg displays sr. abdomen distended/firm/silent. carty catheter patent and draining dilute yellow urine u/o 100-200 ml/hr. earlier in the night son wili visited.
[2021-05-16 05:24] LABS: Hematocrit 29.6 % (42-52); Hemoglobin 9.8 g/dl (14.0-18.0); Mean Corpuscular HGB Conc 33.1 g/dl (31.0-36.0); Mean Corpuscular Hemoglobin 30.1 pg (27.0-33.0); Mean Corpuscular Volume 90.8 fL (80-98); Mean Platelet Volume 9.2 fL (9.4-12.4); Platelet Count 167 X10*3/uL (160-400); Red Blood Count 3.26 X10*6/uL (4.60-5.80); Red Cell Distribution Width 18.6 % (11.0-16.0); WBC ABN SCTR FOR CBC 1
[2021-05-16 05:26] LABS: VBG Base Excess -6.8 mmol/L; VBG HCO3 17 mmol/L (22-26); VBG pCO2 30 mmHg; VBG pH 7.36 (7.32-7.43); VBG pO2 61 mmHg
[2021-05-16 05:30] LABS: INTERNATIONAL NORM RATIO 1.9 (0.9-1.1); Prothrombin Time 22.1 SEC (10.8-13.0); Venous Blood Gas Refer to POC result
[2021-05-16 05:33] LABS: Partial Thromboplastin Time 37.8 SEC (24.1-38.0)
[2021-05-16 05:47] LABS: Band Neutrophils Percent 24 % (3-5); Metamyelocytes Percent 1 %; Monocytes Percent Manual 1 % (2-11); Neutrophils Percent Manual 74 % (45-73)
[2021-05-16 05:49] LABS: ~Lactic Acid-LAB USE ONLY 2.7 mmol/L (0.5-2.0)
[2021-05-16 05:51] LABS: Dohle Bodies PRESENT; Hypochromasia 1+ (5-14) /OIF; Platelet Estimate NORMAL (NORMAL); Platelet Morphology Comment NORMAL; RBC Morphology NOTED
[2021-05-16 05:52] LABS: Acanthocytes 1+ (0-2) /OIF
[2021-05-16] MEDS: Pantoprazole Sodium 40 MG/10 ML VIAL IVPUSH (05:52)
[2021-05-16] MEDS: Hydrocortisone Sod Succ/PF 100 MG VIAL 50 MG IVPUSH ×2 (05:52→19:54)
--- NOTE | 2021-05-16 05:52 | PC.NURSE ---
venous gas shows compensated metabolic acidosis ph 7.36 pco2 30 po2 61 hco3 17. sao2 100% unfortunately, have had to restart neosynephrine. sbp fell into the 70s mmhg with neosynephrine off. neosynephrine at 0.4mcg/kg/min. lactate improving at 2.7. ecg displays sr. cvp 5. awaiting remainder of labs.
[2021-05-16] MEDS: propofoL 1,000 MG/100 ML VIAL 12.65 MG IVCONT (05:53)
[2021-05-16 05:54] LABS: Alanine Aminotransferase 22 U/L (0-40); Albumin Level 2.4 g/dL (3.5-5.0); Alkaline Phosphatase 37 U/L (39-117); Anion Gap 13 (12-20); Aspartate Amino Transferase 23 U/L (5-37); Bilirubin Direct 0.8 mg/dL (0.0-0.5); Bilirubin Total 1.6 mg/dL (0.0-1.0); Blood Urea Nitrogen 19 mg/dL (9-16); Burr Cells 1+ (0-2) /OIF; Calcium 7.3 mg/dL (8.4-10.2); Carbon Dioxide 18 mmol/L (22-29); Chloride 113 mmol/L (96-108); Creatinine Clr Calc Pharmacy 57.1; Estimated Glomerular Filt Rate > 60; Glucose Random 183 mg/dL (60-115); Magnesium 1.6 mg/dL (1.6-2.6); Phosphorus 2.7 mg/dL (2.7-4.5); Potassium 3.3 mmol/L (3.3-5.1); Sodium 141 mmol/L (135-145); Total Protein 4.1 g/dL (6.5-8.0)
[2021-05-16 05:55] LABS: Metamyelocytes Absolute 0.2 X10*3/uL; Monocytes Absolute Manual 0.2 X10*3/uL (0.0-1.2); Neutrophils Absolute Manual 17.5 X10*3/uL (2.2-7.9); White Blood Count 17.9 X10*3/uL (4.8-10.8)
[2021-05-16 07:11] LABS: Fibrinogen > 700 MG/DL (259-690)
[2021-05-16 07:12] LABS: Glucose, Whole Blood 165 mg/dL (60-115)
[2021-05-16 07:18] LABS: Reflex Lactate? 2 Y
[2021-05-16 07:31] LABS: Lactate Dehydrogenase 175 U/L (118-273)
[2021-05-16] MEDS: Insulin Lispro 100 UNIT/ML 3 ML VIAL SUBCUT ×3 (07:40→17:01)
[2021-05-16] MEDS: Chlorhexidine Gluc Oral Rinse 15 ML MOUTHWASH BUCCAL ×3 (07:41→20:52)
[2021-05-16 08:12] LABS: ~Lactic Acid-LAB USE ONLY 2.4 mmol/L (0.5-2.0)
--- NOTE | 2021-05-16 10:02 | MHC.CLN ---
RECOMMEND GLUCERNA AT MAX GOAL RATE 80CC/HR WITH 120CC FREE WATER FLUSHES Q 6 HRS TO PROVIDE 1920KCALS (2387KCALS WITH SEDATION; 29KCALS/KG BASED ON ABW), 80G PROTEIN (.97G/KG) , 2118CC TOTAL WATER FROM FORMULA AND FLUSHES (26CC/KG) START FORMULA AT 20CC/HR AND INCREASE BY 10CC Q 4 HRS UNTIL MAX GOAL IS ACHIEVED PT WITH INCREASED NUTRITION RISK R/T PRESSURE INJURY, HOWEVER REMAINING CONSERVATIVE WITH PO PROTEIN R/T CRF MONITOR TOLERANCE, RESIDUALS AND LYTES FOLLOWING
[2021-05-16] MEDS: propofoL 1,000 MG/100 ML VIAL 17.7 MG IVCONT ×3 (10:10→20:51)
[2021-05-16] MEDS: Potassium Chloride Packet 20 MEQ PACKET PO (10:11)
[2021-05-16] MEDS: Magnesium Sulfate/D5W 1 GM/100 ML PIGGYBACK IV (10:11)
[2021-05-16 11:19] LABS: Glucose, Whole Blood 178 mg/dL (60-115)
--- NOTE | 2021-05-16 11:53 | MHC.CM.PN ---
Patient remains intubated/vented in ICU. Patient is a longterm care resident at [facility] on [address]. Anticipate patient will return via BLS when medically stable. Continue to monitor for d/c needs.
[2021-05-16] MEDS: cefTRIAXone sodium 1 GM in 0.9 % Sodium Chloride 50 ML IV (12:49)
[2021-05-16] MEDS: KCl 20 mEq in 5 % Dextrose 20 MEQ/1,000 ML IV.SOLN 42 MEQ IVCONT (15:01)
[2021-05-16 16:51] LABS: Glucose, Whole Blood 163 mg/dL (60-115)
[2021-05-16] MEDS: Furosemide 20 MG/2 ML VIAL IVPUSH (20:52)
[2021-05-16 21:06] LABS: Glucose, Whole Blood 149 mg/dL (60-115)
--- NOTE | 2021-05-16 22:55 | PC.NURSE ---
sedatedfor ventilatory management. no eye opening. propofol decreased to 25mcg/kg/min. extremities rigid. lower legs atrophied. numerous breaches in skin integrity. multiple extensive bruises and skin tears upper extremities. an area of ruptured blisters noted left lateral lower abdomen. stage 2 break down sacrum and coccyx. blisters dressed with xeroform and dsd applied. dsg held in place with loose ena wrap. pt has scleral edema and dependent edema in back. intubated and mechanically ventilated. breath sounds coarse and diminished within right lung. in-line suctioning removes scant clear secreations. ecg displays sr. cvp 10 mmhg. mandatory pressure support with levophed and vasopressin. abdomen firm/distended/silent. ogt placement confirmed with instilled volume of air. gastric residual 10 ml. glucerna advanced 10 ml to 40ml/hr. carty catheter patent and draining yellow urine. u/o 30-40 ml/hr-lasix 20 mg ivp given for decreased u/o and cvp of 10 cm.
[2021-05-17] VITALS (30 sets, daily range): BP systolic 123–156; BP diastolic 52–77; PULSE 81–130; RESP 16–24; TEMP 36.9–37.7; O2SAT 93–100
[2021-05-17] MEDS: propofoL 1,000 MG/100 ML VIAL 12.65 MG IVCONT (01:44)
[2021-05-17 05:25] LABS: VBG Base Excess -1.2 mmol/L; VBG HCO3 22 mmol/L (22-26); VBG pCO2 33 mmHg; VBG pH 7.43 (7.32-7.43); VBG pO2 48 mmHg
[2021-05-17 05:31] LABS: Venous Blood Gas Refer to POC result
[2021-05-17 05:48] LABS: Hematocrit 29.7 % (42-52); Hemoglobin 9.9 g/dl (14.0-18.0); Mean Corpuscular HGB Conc 33.3 g/dl (31.0-36.0); Mean Corpuscular Hemoglobin 29.5 pg (27.0-33.0); Mean Corpuscular Volume 88.4 fL (80-98); Mean Platelet Volume 9.9 fL (9.4-12.4); Platelet Count 150 X10*3/uL (160-400); Red Blood Count 3.36 X10*6/uL (4.60-5.80); Red Cell Distribution Width 18.2 % (11.0-16.0)
[2021-05-17] MEDS: Pantoprazole Sodium 40 MG/10 ML VIAL IVPUSH (05:51)
[2021-05-17 06:13] LABS: WBC ABN SCTR FOR CBC 1; White Blood Count 18.4 X10*3/uL (4.8-10.8)
[2021-05-17 06:16] LABS: INTERNATIONAL NORM RATIO 1.3 (0.9-1.1); Prothrombin Time 15.1 SEC (10.8-13.0)
[2021-05-17 06:18] LABS: Partial Thromboplastin Time 31.7 SEC (24.1-38.0)
[2021-05-17 06:27] LABS: Alanine Aminotransferase 21 U/L (0-40); Albumin Level 2.7 g/dL (3.5-5.0); Alkaline Phosphatase 61 U/L (39-117); Anion Gap 13 (12-20); Aspartate Amino Transferase 17 U/L (5-37); Bilirubin Total 1.6 mg/dL (0.0-1.0); Blood Urea Nitrogen 18 mg/dL (9-16); Calcium 7.5 mg/dL (8.4-10.2); Carbon Dioxide 21 mmol/L (22-29); Chloride 106 mmol/L (96-108); Estimated Glomerular Filt Rate > 60; Glucose Random 198 mg/dL (60-115); Magnesium 1.6 mg/dL (1.6-2.6); Phosphorus 2.1 mg/dL (2.7-4.5); Potassium 2.6 mmol/L (3.3-5.1); Sodium 137 mmol/L (135-145); Total Protein 4.7 g/dL (6.5-8.0)
[2021-05-17 07:05] LABS: Band Neutrophils Percent 6 % (3-5); Lymphocytes Absolute Manual 0.6 X10*3/uL (0.6-4.8); Lymphocytes Percent Manual 3 % (20-40); Monocytes Absolute Manual 0.6 X10*3/uL (0.0-1.2); Monocytes Percent Manual 3 % (2-11); Neutrophils Absolute Manual 17.3 X10*3/uL (2.2-7.9); Neutrophils Percent Manual 88 % (45-73)
[2021-05-17 07:06] LABS: Platelet Estimate SLIGHTLY DECREASED (NORMAL)
[2021-05-17 07:07] LABS: Dohle Bodies PRESENT; Toxic Vacuolation PRESENT
[2021-05-17 07:08] LABS: RBC Morphology NOTED
[2021-05-17 07:09] LABS: Microcytosis 1+ (5-14) /OIF; Platelet Morphology Comment NORM; Tear Drop Cells 1+ (0-2) /OIF
[2021-05-17 07:10] LABS: Hypochromasia 1+ (5-14) /OIF; Ovalocytes 1+ (5-14) /OIF
[2021-05-17 07:24] LABS: Glucose, Whole Blood 180 mg/dL (60-115)
[2021-05-17] MEDS: Potassium Chloride Packet 20 MEQ PACKET 40 MEQ PO ×3 (08:10→11:59)
[2021-05-17] MEDS: Magnesium Sulfate/D5W 1 GM/100 ML PIGGYBACK IV (08:10)
[2021-05-17] MEDS: Chlorhexidine Gluc Oral Rinse 15 ML MOUTHWASH BUCCAL (08:11)
[2021-05-17] MEDS: Hydrocortisone Sod Succ/PF 100 MG VIAL 50 MG IVPUSH (08:11)
[2021-05-17] MEDS: Insulin Lispro 100 UNIT/ML 3 ML VIAL SUBCUT ×2 (08:11→21:16)
[2021-05-17 11:16] LABS: Glucose, Whole Blood 155 mg/dL (60-115)
[2021-05-17] MEDS: cefTRIAXone sodium 1 GM in 0.9 % Sodium Chloride 50 ML IV (11:59)
--- NOTE | 2021-05-17 12:48 | PC.NURSE ---
Wound care assessment. Patient has excoriation to lower back, bilateral buttocks and around anus associated with leakage from fecal tube. Patient also has 3 skin tears to left arm and 2 skin tears to right arm, stage 2 PU to left lateral great toe and maceration to remaining toes and dorsal foot, right foot has maceration around toes and dorsal foot. Barrier cream was applied to buttocks and lower back and to macerated toes, Xeroform was placed on bilateral dorsal feet and stage 2 PU on left great toe. Foam dressing to all skin tears. Dr. Solis is has been consulted for her opinion on this assessment.
[2021-05-17 13:52] LABS: Haptoglobin 212 mg/dL (43-212)
--- NOTE | 2021-05-17 14:14 | MHC.CM.PN ---
Pt remains in ICU on ventilatory support for urosepsis. He resides at [facility] and is expected to return when medically stable. MOLST on file indicating full supportive measures. Plan is to trial extubation today. Clinical updates not remitted to [facility] as there are no new notes to send. CM to follow for d/c planning needs
--- NOTE | 2021-05-17 14:15 | PC.NURSE ---
Pt off propofol and vasopressin and IV fluids today at 0900, BP stable at 126/59, pt able to nod head yes/no, squeeze hand commands, track with eyes, +cough/gag. Making adequate urine output 200ml/hr. Pt was placed on pressure support 10/5 FiO2 30%, RR 18 Vt 700 Ve 12.7, SaO2 98% ETCO2 26. Seen by director of critical care, coccyx excoriated/macerated, dried and EPC cream applied, erythema back superior blanchable, left foot macerated with stage 2 to lateral aspect of foot near last toe, right foot macerated with redness, EPC cream + xeroform to both feet with gauze and then gauze wrap. Foam dressing to right arm x2 for skin tear, left arm x3 foam for skin tear, very thin fragile ecchymotic skin, director of critical care stated to leave for now. Pt was extubated at 1330 and placed on 2L/min NC SaO2 98%. Pt has weak cough, able to cough up some secretions, frequent y[place]keur to suction. Bed locked and it lowest position, sitting high fowlers. Bed alarm on. Tete his has been updated.
[2021-05-17 14:55] LABS: Vancomycin Trough 5.8 mcg/mL (10.0-20.0)
--- NOTE | 2021-05-17 15:30 | PM.CCPN ---
Subjective Subjective Date of Service: 05/17/21 Interval History: 76-year-old male status post Gram-negative septic shock with Proteus as he had before because of chronic indwelling Nunez catheter due to bladder atony from his multiple sclerosis diagnosis and is largely bed in chair restricted who was now overcome the shock off all pressors he was awake and appropriately with good cognitive function off propofol and you are able to wean him after prolonged pressure support ventilatory trial 80 did well and he has been extubated since he is able to talk NG tube was left in place due to continue small dose feedings until was secure about his swallowing capability as he continues to awaken from the propofol and he remains only on ceftriaxone based on organism sensitivities Critical Care Time (minutes): 35 Physical Exam Vital Signs: Vital Signs: Last Vital Signs Temp 99.0 F 05/17/21 15:00 Pulse 124 H 05/17/21 15:00 Resp 17 05/17/21 15:00 BP 123/60 05/17/21 15:00 Pulse Ox 97 05/17/21 15:00 Oxygen Flow Rate 2 05/14/21 20:19 Body Mass Index 27.3 Const: Other: Lethargic but good cognitive function Sinus tachycardia with blood pressure 140 systolic or full support and oxygen saturation 98% on 2 L nasal cannula No significant respiratory effort and he has good bilateral carotid upstrokes CV PEs are running consistently between 4 and 7 Abdomen benign soft no organomegaly Lungs without adventitious sounds Skin and very diffusely ecchymotic with a history of bullous pemphigoid as well as some denuded areas over the coccyx and he is being seen by wound care Objective Data Labs CBC & Chem 7: 05/17/21 05:16 05/17/21 05:16 Labs: Laboratory Results - last 24 hr 05/16/21 05/16/21 05/16/21 05:15 16:47 21:03 WBC RBC Hgb Hct MCV MCH MCHC RDW Plt Count MPV Immature Gran % (Auto) Neut % (Auto) Lymph % (Auto) [place] % (Auto) Eos % (Auto) Baso % (Auto) Lymph # (Auto) [place] # (Auto) Eos # (Auto) Baso # (Auto) Abs Immat Gran (auto) Absolute Neuts (auto) Absolute Nucleated RBC Nucleated RBC % (auto) Neutrophils % (Manual) Band Neutrophils % Lymphocytes % (Manual) Monocytes % (Manual) Abs Neuts (Manual) Lymphocytes # (Manual) Monocytes # (Manual) Toxic Vacuolation Dohle Bodies Platelet Estimate Plt Morphology Comment RBC Morphology Hypochromasia Microcytosis Tear Drop Cells Ovalocytes [place] Cells Haptoglobin 212 PT INR APTT VBG pH VBG pCO2 VBG pO2 VBG HCO3 VBG O2 Saturation VBG Base Excess Sodium Potassium Chloride Carbon Dioxide Anion Gap BUN Creatinine Estim Creat Clear Calc Estimated GFR POC Glucose 163 H 149 H Random Glucose Calcium Phosphorus Magnesium Total Bilirubin Direct Bilirubin AST ALT Alkaline Phosphatase Total Protein Albumin Vancomycin Trough 05/17/21 05/17/21 05/17/21 05:16 05:16 05:16 WBC 18.4 H RBC 3.36 L Hgb 9.9 L Hct 29.7 L MCV 88.4 MCH 29.5 MCHC 33.3 RDW 18.2 H Plt Count 150 L MPV 9.9 Immature Gran % (Auto) Cancelled Neut % (Auto) Cancelled Lymph % (Auto) Cancelled [place] % (Auto) Cancelled Eos % (Auto) Cancelled Baso % (Auto) Cancelled Lymph # (Auto) Cancelled [place] # (Auto) Cancelled Eos # (Auto) Cancelled Baso # (Auto) Cancelled Abs Immat Gran (auto) Cancelled Absolute Neuts (auto) Cancelled Absolute Nucleated RBC 0.000 Nucleated RBC % (auto) 0.0 Neutrophils % (Manual) 88 H Band Neutrophils % 6 H Lymphocytes % (Manual) 3 L Monocytes % (Manual) 3 Abs Neuts (Manual) 17.3 H Lymphocytes # (Manual) 0.6 Monocytes # (Manual) 0.6 Toxic Vacuolation PRESENT Dohle Bodies PRESENT Platelet Estimate SLIGHTLY DECREASED Plt Morphology Comment NORM RBC Morphology NOTED Hypochromasia 1+ (5-14) Microcytosis 1+ (5-14) Tear Drop Cells 1+ (0-2) Ovalocytes 1+ (5-14) [place] Cells 1+ ( Haptoglobin PT 15.1 H D INR 1.3 H APTT 31.7 VBG pH VBG pCO2 VBG pO2 VBG HCO3 VBG O2 Saturation VBG Base Excess Sodium 137 Potassium 2.6 L D Chloride 106 Carbon Dioxide 21 L Anion Gap 13 BUN 18 H Creatinine 0.88 Estim Creat Clear Calc 76.0 Estimated GFR > 60 POC Glucose Random Glucose 198 H Calcium 7.5 L Phosphorus 2.1 L Magnesium 1.6 Total Bilirubin 1.6 H Direct Bilirubin 1.0 H AST 17 ALT 21 Alkaline Phosphatase 61 D Total Protein 4.7 L Albumin 2.7 L Vancomycin Trough 05/17/21 05/17/21 05/17/21 05:18 07:20 11:11 WBC RBC Hgb Hct MCV MCH MCHC RDW Plt Count MPV Immature Gran % (Auto) Neut % (Auto) Lymph % (Auto) [place] % (Auto) Eos % (Auto) Baso % (Auto) Lymph # (Auto) [place] # (Auto) Eos # (Auto) Baso # (Auto) Abs Immat Gran (auto) Absolute Neuts (auto) Absolute Nucleated RBC Nucleated RBC % (auto) Neutrophils % (Manual) Band Neutrophils % Lymphocytes % (Manual) Monocytes % (Manual) Abs Neuts (Manual) Lymphocytes # (Manual) Monocytes # (Manual) Toxic Vacuolation Dohle Bodies Platelet Estimate Plt Morphology Comment RBC Morphology Hypochromasia Microcytosis Tear Drop Cells Ovalocytes [place] Cells Haptoglobin PT INR APTT VBG pH 7.43 VBG pCO2 33 VBG pO2 48 VBG HCO3 22 VBG O2 Saturation 72.0 VBG Base Excess -1.2 Sodium Potassium Chloride Carbon Dioxide Anion Gap BUN Creatinine Estim Creat Clear Calc Estimated GFR POC Glucose 180 H 155 H Random Glucose Calcium Phosphorus Magnesium Total Bilirubin Direct Bilirubin AST ALT Alkaline Phosphatase Total Protein Albumin Vancomycin Trough 05/17/21 14:07 WBC RBC Hgb Hct MCV MCH MCHC RDW Plt Count MPV Immature Gran % (Auto) Neut % (Auto) Lymph % (Auto) [place] % (Auto) Eos % (Auto) Baso % (Auto) Lymph # (Auto) [place] # (Auto) Eos # (Auto) Baso # (Auto) Abs Immat Gran (auto) Absolute Neuts (auto) Absolute Nucleated RBC Nucleated RBC % (auto) Neutrophils % (Manual) Band Neutrophils % Lymphocytes % (Manual) Monocytes % (Manual) Abs Neuts (Manual) Lymphocytes # (Manual) Monocytes # (Manual) Toxic Vacuolation Dohle Bodies Platelet Estimate Plt Morphology Comment RBC Morphology Hypochromasia Microcytosis Tear Drop Cells Ovalocytes [place] Cells Haptoglobin PT INR APTT VBG pH VBG pCO2 VBG pO2 VBG HCO3 VBG O2 Saturation VBG Base Excess Sodium Potassium Chloride Carbon Dioxide Anion Gap BUN Creatinine Estim Creat Clear Calc Estimated GFR POC Glucose Random Glucose Calcium Phosphorus Magnesium Total Bilirubin Direct Bilirubin AST ALT Alkaline Phosphatase Total Protein Albumin Vancomycin Trough 5.8 L Microbiology Microbiology Results: Microbiology 05/14/21 14:16 Blood - Venous Blood Culture - Preliminary No growth after 48 hours. 05/14/21 14:16 Blood - Venous Blood Culture - Preliminary No growth after 48 hours. 05/14/21 17:52 Urine clean catch - Clean Catch Midstream Urine Culture - Final Proteus mirabilis Progress Note: A&P Assessment and plan (1) Decubitus ulcer of coccygeal region, stage 2: Status: Acute (2) Aspiration pneumonitis: Status: Acute (3) Sepsis: Status: Acute (4) Acute hypotension: Status: Acute (5) Recurrent UTI (urinary tract infection): Status: Acute (6) Hypotonic neurogenic bladder: Status: Acute (7) Hematuria: Status: Acute (8) Constipation: Status: Acute (9) Shoulder pain: Status: Acute (10) Septic shock: Status: Acute (11) Anemia: Status: Acute (12) Wound of foot: Status: Acute (13) Lytic lesion of bone on x-ray: Status: Acute (14) Multiple sclerosis: Status: Acute Assessment and Plan: Doing very well status post extubation able to cough and able to protect his airway NG tube left in place until swallow evaluation and maintaining all vital signs and urine output and central venous pressure in sinus tachycardia and this is off all pressor support Quality Stroke Does the patient have a stroke diagnosis?: No Reason for No Anti-thrombotic by Day Two: Contraindicated VTE Prior VTE?: No VTE Risk Level:: Medical - moderate - high VTE Device Contraindication: N/A - Device Ordered VTE Drug Contraindication: Treatment Not Tolerated
[2021-05-17 16:34] LABS: Glucose, Whole Blood 150 mg/dL (60-115)
--- NOTE | 2021-05-17 17:35 | P.CONWO_ITS ---
History of Present Illness Data of Consult Service Date: 05/17/21 Requesting physician: Kristie Wheat Primary Care Provider: Luzma Tinajero [facility] Reason for consult: coccyx lesions the patient is a 76-year-old male who has multiple sclerosis and multiple other medical issues who was admitted with sepsis requiring IV fluid resuscitation pressors support intubation with question of aspiration pneumonia. He also apparently has a history of bullous pemphigoidl and is on chronic steroids for treatment of this. Today on examination he was noted to have isac anal rectal buttock area rash lesion and wound care consultation was requested. Review of Systems Review of Systems: Yes all other systems are reviewed and are negative and Unobtainable due to mental status PMFSH Medical History BPH (benign prostatic hyperplasia) Chronic pain syndrome Chronic renal failure Dehydration Depression Diabetes mellitus type 2 in obese Multiple sclerosis Urinary tract infection Family History Family/Other Heart attack Father Diabetes Surgical History Hx of removal of cyst Social History Household Members: Other Household Members Other:: lives in correction Housing: Detention Housing Other:: [facility] Do you presently have visiting nurse or other home services: No Unable to assess alcohol history related to: Unable to respond Alcohol intake: never Patient Tobacco Use Status: Tobacco use Unknown Cigarette Packs Per Day: 1 Use of substances other than those prescribed or required for medical reasons: Unable to respond Currently Displaying Signs/Symptoms of Drug Intoxication Withdrawal: No Advance Directives: Yes Advance Directives on File: Yes Advance Directives Date on File: 10/13/20 Do you have thoughts of harming others: None Do you have a plan to hurt others: No Plan Recently lost weight without trying: Unsure service: Yes Current occupational status: retired Meds Allergies Allergy/AdvReac Type Severity Reaction Status Date / Time Benzodiazepines Allergy Unknown UNKNOWN Verified 04/11/21 09:47 [BENZODIAZEPINES] dalfampridine [From AMPYRA] Allergy Unknown UNKNOWN Verified 04/11/21 09:47 duloxetine [From CYMBALTA] Allergy Unknown UNKNOWN Verified 04/11/21 09:47 ezetimibe [From ZETIA] Allergy Unknown UNKNOWN Verified 04/11/21 09:47 niacin [NIACIN] Allergy Unknown UNKNOWN Verified 04/11/21 09:47 pravastatin [PRAVASTATIN] Allergy Unknown UNKNOWN Verified 04/11/21 09:47 Oqxxpyr-Rvs-Nuy Reductase Allergy Unknown UNKNOWN Verified 04/11/21 09:47 Inhibitor [[id number] REDUCTASE INHIBITOR] lorazepam [From ATIVAN] AdvReac Severe EXCESSIVE Verified 04/11/21 09:47 SEDATION doxycycline [DOXYCYCLINE] AdvReac Mild esophogeal Verified 04/11/21 09:47 iritation methylprednisolone AdvReac Mild heartburn Verified 04/11/21 09:47 [From SOLU-MEDROL] ertapenem [From INVANZ] AdvReac Unknown possible Verified 04/11/21 09:47 cause of bullous pemphigoid Active Medications: Current Medications Generic Name Dose Route Start Last Admin Trade Name Freq PRN Reason Stop Dose Admin Chlorhexidine Gluconate 15 ml 05/15/21 09:00 05/17/21 13:50 Chlorhexidine Gluc Oral Rinse 15 Ml Mouthwash BUCCAL Not Given TID WICHO Hydrocortisone Sodium Succinate 40 mg 05/17/21 20:00 Hydrocortisone Sod Succ/Pf 100 Mg Vial IVPUSH Q12H WICHO Vasopressin 20 unit/ Sodium 101 mls @ 12.12 mls/hr 05/14/21 22:45 05/17/21 16:51 Chloride IVCONT Not Given .Q8H20M WICHO 0.04 UNIT/MIN Phenylephrine HCl 100 mg/ 260 mls @ 0 mls/hr 05/14/21 23:00 05/16/21 11:04 Sodium Chloride IVCONT 0 mcg/kg/min .Q0M WICHO 0 mls/hr Titration Protocol Per Protocol Norepinephrine Bitartrate 8 mg in 250 mls @ 0 mls/hr 05/14/21 23:00 05/17/21 04:05 Levophed IVCONT 0 mcg/kg/min .Q0M WICHO 0 mls/hr Titration Protocol Per Protocol Propofol 1,000 mg in 100 mls @ 0 mls/hr 05/15/21 01:15 05/17/21 08:00 Diprivan IVCONT 0 mcg/kg/min .Q0M WICHO 0 mls/hr Titration Protocol Per Protocol Potassium Chloride/Dextrose 20 meq in 1,000 mls @ 42 mls/hr 05/15/21 17:30 05/17/21 16:33 IVCONT Not Given .[id number] [facility] Ceftriaxone Sodium 1 gm/ 50 mls @ 100 mls/hr 05/16/21 13:00 05/17/21 13:52 Sodium Chloride IV Infused Q24H [facility] Infusion Insulin Human Lispro 0 unit 05/15/21 11:30 05/17/21 16:32 Insulin Lispro 100 Unit/Ml 3 Ml Vial SUBCUT Not Given QIDACHS [facility] Protocol Pantoprazole Sodium 40 mg 05/15/21 06:30 05/17/21 05:51 Pantoprazole Sodium 40 Mg/10 Ml Vial IVPUSH 40 mg DAILY@0630 [facility] Administration Home Medications Medication Instructions Recorded Confirmed Last Taken Type bisacodyl 10 mg MD DAILY 10/09/20 03/28/21 Unknown History gabapentin 300 mg PO BID@0630,1200 10/09/20 03/28/21 Unknown History metformin 500 mg PO BID 10/09/20 03/28/21 Unknown History tramadol 50 mg PO BID PRN 10/09/20 03/28/21 Unknown History trazodone 25 mg PO BEDTIME 10/09/20 03/28/21 Unknown History acetaminophen 650 mg PO Q4H PRN 03/13/21 03/28/21 Unknown History amlodipine 7.5 mg PO DAILY 03/13/21 03/28/21 Unknown History aspirin 81 mg PO DAILY 03/13/21 03/28/21 Unknown History gabapentin 600 mg PO BEDTIME 03/13/21 03/28/21 Unknown History insulin lispro [Humalog U-100 100 sliding scale dose SUBCUT 03/13/21 03/28/21 Unknown History Insulin] [facility] niacinamide 500 mg PO TID 03/13/21 03/28/21 Unknown History prednisone 10 mg PO DAILY 03/13/21 03/28/21 Unknown History rosuvastatin 10 mg PO DAILY 03/13/21 03/28/21 Unknown History alum-mag hydroxide-simeth [Maalox ml 04/20/21 Unknown History Plus] doxycycline hyclate 100 mg PO DAILY 04/20/21 04/20/21 Unknown History fluconazole 100 mg PO DAILY 04/20/21 04/20/21 Unknown History nystatin-triamcinolone 1 appl TOPICAL BID 04/20/21 04/20/21 Unknown History Physical Exam Vital Signs and Narrative: Vital Signs: Last Vital Signs Temp 99.5 F 05/17/21 17:00 Pulse 128 H 05/17/21 17:00 Resp 20 05/17/21 17:00 BP 134/54 L 05/17/21 17:00 Pulse Ox 96 05/17/21 17:00 Oxygen Flow Rate 2 05/14/21 20:19 Body Mass Index 27.3 GI: Palpation (GI): not rigid Skin: Other: multiple skin tears over bilateral arms. Bilateral feet have areas of venous stasis as well as extremely dry skin, Patient has on buttocks denuded skin tissue not consistent with a pressure wound but may be moisture. Question whether it may be also some manifestation of his bullous disease although there is no intact bowl at this point in time. Hair: normal Results Labs CBC and Chem 7: 05/17/21 05:16 05/17/21 05:16 Labs: Laboratory Results - last 24 hr 05/16/21 05/16/21 05/17/21 05:15 21:03 05:16 MCV 88.4 MCH 29.5 MCHC 33.3 RDW 18.2 H Plt Count 150 L MPV 9.9 Immature Gran % (Auto) Cancelled Neut % (Auto) Cancelled Lymph % (Auto) Cancelled [place] % (Auto) Cancelled Eos % (Auto) Cancelled Baso % (Auto) Cancelled Lymph # (Auto) Cancelled [place] # (Auto) Cancelled Eos # (Auto) Cancelled Baso # (Auto) Cancelled Abs Immat Gran (auto) Cancelled Absolute Neuts (auto) Cancelled Absolute Nucleated RBC 0.000 Nucleated RBC % (auto) 0.0 Neutrophils % (Manual) 88 H Band Neutrophils % 6 H Lymphocytes % (Manual) 3 L Monocytes % (Manual) 3 Abs Neuts (Manual) 17.3 H Lymphocytes # (Manual) 0.6 Monocytes # (Manual) 0.6 Toxic Vacuolation PRESENT Dohle Bodies PRESENT Platelet Estimate SLIGHTLY DECREASED Plt Morphology Comment NORM RBC Morphology NOTED Hypochromasia 1+ (5-14) Microcytosis 1+ (5-14) Tear Drop Cells 1+ (0-2) Ovalocytes 1+ (5-14) [place] Cells 1+ ( Haptoglobin 212 PT INR APTT VBG pH VBG pCO2 VBG pO2 VBG HCO3 VBG O2 Saturation VBG Base Excess Anion Gap Estim Creat Clear Calc Estimated GFR POC Glucose 149 H Random Glucose Calcium Phosphorus Magnesium Total Bilirubin Direct Bilirubin AST ALT Alkaline Phosphatase Total Protein Albumin Vancomycin Trough 05/17/21 05/17/21 05/17/21 05:16 05:16 05:18 MCV MCH MCHC RDW Plt Count MPV Immature Gran % (Auto) Neut % (Auto) Lymph % (Auto) [place] % (Auto) Eos % (Auto) Baso % (Auto) Lymph # (Auto) [place] # (Auto) Eos # (Auto) Baso # (Auto) Abs Immat Gran (auto) Absolute Neuts (auto) Absolute Nucleated RBC Nucleated RBC % (auto) Neutrophils % (Manual) Band Neutrophils % Lymphocytes % (Manual) Monocytes % (Manual) Abs Neuts (Manual) Lymphocytes # (Manual) Monocytes # (Manual) Toxic Vacuolation Dohle Bodies Platelet Estimate Plt Morphology Comment RBC Morphology Hypochromasia Microcytosis Tear Drop Cells Ovalocytes [place] Cells Haptoglobin PT 15.1 H D INR 1.3 H APTT 31.7 VBG pH 7.43 VBG pCO2 33 VBG pO2 48 VBG HCO3 22 VBG O2 Saturation 72.0 VBG Base Excess -1.2 Anion Gap 13 Estim Creat Clear Calc 76.0 Estimated GFR > 60 POC Glucose Random Glucose 198 H Calcium 7.5 L Phosphorus 2.1 L Magnesium 1.6 Total Bilirubin 1.6 H Direct Bilirubin 1.0 H AST 17 ALT 21 Alkaline Phosphatase 61 D Total Protein 4.7 L Albumin 2.7 L Vancomycin Trough 05/17/21 05/17/21 05/17/21 07:20 11:11 14:07 MCV MCH MCHC RDW Plt Count MPV Immature Gran % (Auto) Neut % (Auto) Lymph % (Auto) [place] % (Auto) Eos % (Auto) Baso % (Auto) Lymph # (Auto) [place] # (Auto) Eos # (Auto) Baso # (Auto) Abs Immat Gran (auto) Absolute Neuts (auto) Absolute Nucleated RBC Nucleated RBC % (auto) Neutrophils % (Manual) Band Neutrophils % Lymphocytes % (Manual) Monocytes % (Manual) Abs Neuts (Manual) Lymphocytes # (Manual) Monocytes # (Manual) Toxic Vacuolation Dohle Bodies Platelet Estimate Plt Morphology Comment RBC Morphology Hypochromasia Microcytosis Tear Drop Cells Ovalocytes [place] Cells Haptoglobin PT INR APTT VBG pH VBG pCO2 VBG pO2 VBG HCO3 VBG O2 Saturation VBG Base Excess Anion Gap Estim Creat Clear Calc Estimated GFR POC Glucose 180 H 155 H Random Glucose Calcium Phosphorus Magnesium Total Bilirubin Direct Bilirubin AST ALT Alkaline Phosphatase Total Protein Albumin Vancomycin Trough 5.8 L 05/17/21 16:31 MCV MCH MCHC RDW Plt Count MPV Immature Gran % (Auto) Neut % (Auto) Lymph % (Auto) [place] % (Auto) Eos % (Auto) Baso % (Auto) Lymph # (Auto) [place] # (Auto) Eos # (Auto) Baso # (Auto) Abs Immat Gran (auto) Absolute Neuts (auto) Absolute Nucleated RBC Nucleated RBC % (auto) Neutrophils % (Manual) Band Neutrophils % Lymphocytes % (Manual) Monocytes % (Manual) Abs Neuts (Manual) Lymphocytes # (Manual) Monocytes # (Manual) Toxic Vacuolation Dohle Bodies Platelet Estimate Plt Morphology Comment RBC Morphology Hypochromasia Microcytosis Tear Drop Cells Ovalocytes [place] Cells Haptoglobin PT INR APTT VBG pH VBG pCO2 VBG pO2 VBG HCO3 VBG O2 Saturation VBG Base Excess Anion Gap Estim Creat Clear Calc Estimated GFR POC Glucose 150 H Random Glucose Calcium Phosphorus Magnesium Total Bilirubin Direct Bilirubin AST ALT Alkaline Phosphatase Total Protein Albumin Vancomycin Trough Assessment and Plan (1) Decubitus ulcer of coccygeal region, stage 2: Status: Acute In this patient the skin breakdown around the coccyx and the buttocks bilaterally near the perirectal area I think is consistent with more moisture Intertrigo or some of his bullous pemphigous versus any true pressure disease. As a result would not stage this as a pressure ulcer. Instead continue with dressings and zinc oxide to the area. If there is belief that there may be a fungal component can add nystatin cream with the 20% zinc oxide. Try to keep the area dry right now rectal tube is allowing diversion of diarrhea. Also overall medical care will eventually help with this. If it is true bullous manifestation then steroid treatment is advised but at this point in time this may be more harmful as he is recovering from sepsis and hypertension. please also remained vigilant with repositioning to prevent any superimposed pressure wound (2) Aspiration pneumonitis: Status: Acute (3) Sepsis: Status: Acute (4) Acute hypotension: Status: Acute (5) Recurrent UTI (urinary tract infection): Status: Acute (6) Hypotonic neurogenic bladder: Status: Acute (7) Hematuria: Status: Acute (8) Constipation: Status: Acute (9) Shoulder pain: Status: Acute (10) Septic shock: Status: Acute (11) Anemia: Status: Acute (12) Wound of foot: Status: Acute (13) Lytic lesion of bone on x-ray: Status: Acute (14) Multiple sclerosis: Status: Acute Doing very well status post extubation able to cough and able to protect his airway NG tube left in place until swallow evaluation and maintaining all vital signs and urine output and central venous pressure in sinus tachycardia and this is off all pressor support
[2021-05-17 21:14] LABS: Glucose, Whole Blood 169 mg/dL (60-115)
[2021-05-17] MEDS: Hydrocortisone Sod Succ/PF 100 MG VIAL 40 MG IVPUSH (21:20)
[2021-05-18] VITALS (22 sets, daily range): BP systolic 110–163; BP diastolic 45–87; PULSE 63–128; RESP 14–24; TEMP 36.6–37.9; O2SAT 91–98; BMI 27.1
[2021-05-18 05:26] LABS: VBG Base Excess 4.3 mmol/L; VBG HCO3 27 mmol/L (22-26); VBG pCO2 36 mmHg; VBG pH 7.48 (7.32-7.43); VBG pO2 43 mmHg
[2021-05-18 05:28] LABS: Venous Blood Gas Refer to POC result
[2021-05-18 05:32] LABS: Basophils Absolute Auto 0.1 X10*3/uL (0.0-0.2); Basophils Percent Auto 0.4 % (0-2); Eosinophils Percent Auto 0.3 % (0-4); Hematocrit 28.9 % (42-52); Hemoglobin 9.8 g/dl (14.0-18.0); Imm Gran Abs Auto 0.26 X10*3/uL (0.00-0.03); Imm Gran Pct Auto 1.8 % (0.0-0.4); Lymphocytes Absolute Auto 0.5 X10*3/uL (1.2-4.9); Lymphocytes Percent Auto 3.2 % (20-40); MANUAL DIFF FLAG SCAN; Mean Corpuscular HGB Conc 33.9 g/dl (31.0-36.0); Mean Corpuscular Hemoglobin 29.9 pg (27.0-33.0); Mean Corpuscular Volume 88.1 fL (80-98); Mean Platelet Volume 9.5 fL (9.4-12.4); Monocytes Absolute Auto 0.4 X10*3/uL (0.1-1.2); Monocytes Percent Auto 2.8 % (2-11); Neutrophils Percent Auto 91.5 % (45-73); Platelet Count 124 X10*3/uL (160-400); Red Blood Count 3.28 X10*6/uL (4.60-5.80); Red Cell Distribution Width 17.9 % (11.0-16.0); SCAN SMEAR FLAG 1; White Blood Count 14.2 X10*3/uL (4.8-10.8)
[2021-05-18 05:39] LABS: INTERNATIONAL NORM RATIO 1.1 (0.9-1.1); Prothrombin Time 13.1 SEC (10.8-13.0)
[2021-05-18 05:42] LABS: Partial Thromboplastin Time 28.8 SEC (24.1-38.0)
[2021-05-18] MEDS: Pantoprazole Sodium 40 MG/10 ML VIAL IVPUSH (05:45)
[2021-05-18 05:52] LABS: SLIDE REVIEW VERIFIED
[2021-05-18 06:08] LABS: Alanine Aminotransferase 19 U/L (0-40); Albumin Level 2.9 g/dL (3.5-5.0); Alkaline Phosphatase 75 U/L (39-117); Anion Gap 16 (12-20); Aspartate Amino Transferase 15 U/L (5-37); Bilirubin Direct 1.1 mg/dL (0.0-0.5); Bilirubin Total 1.9 mg/dL (0.0-1.0); Blood Urea Nitrogen 14 mg/dL (9-16); Calcium 7.8 mg/dL (8.4-10.2); Carbon Dioxide 23 mmol/L (22-29); Chloride 109 mmol/L (96-108); Creatinine Clr Calc Pharmacy 90.4; Estimated Glomerular Filt Rate > 60; Glucose Random 151 mg/dL (60-115); Magnesium 1.6 mg/dL (1.6-2.6); Phosphorus 1.3 mg/dL (2.7-4.5); Potassium 2.4 mmol/L (3.3-5.1); Sodium 146 mmol/L (135-145)
--- NOTE | 2021-05-18 06:19 | PC.NURSE ---
SE: [id number]: No resp difficulties overnight s/p extubation yesterday. Pt has a good cough to clear secretions. O2 on at 1L via NC. O2 sat 95-96%. Vital signs stable. temp low grade 99-100 [address]. [address] shows [address], rate 110's-120's. CVP 4-5. U/o good, 100-250 ML/hr. Tolerating tube feeds at 20 ml/hr. Multiple skin issues. See photos and wound assessment. Turned and repos q2hr.
[2021-05-18 07:25] LABS: Glucose, Whole Blood 142 mg/dL (60-115)
[2021-05-18] MEDS: Chlorhexidine Gluc Oral Rinse 15 ML MOUTHWASH BUCCAL ×2 (07:43→14:22)
[2021-05-18] MEDS: Potassium Chloride Packet 20 MEQ PACKET 40 MEQ PO ×3 (07:43→12:31)
[2021-05-18] MEDS: Hydrocortisone Sod Succ/PF 100 MG VIAL 40 MG IVPUSH ×2 (07:45→21:29)
--- NOTE | 2021-05-18 09:50 | MHC.SL.SWA ---
Speech Pathologist Impression: Risk of Aspiration Oralpharyngeal Dysphagia Risk of Aspiration Due to: History of Pneumonia Hx of Recent Extubation Dysphasia Diet Status: No Change Liquid Consistency and Strategies for Safe Swallow: Liquid Intake Recommendation: NPO Solid Food Consistency: Dietary Recommendations: NPO Additional Modifications to Solid Foods: Patient has NG tube. Keep head of bed elevated at least 30 degrees to reduce risk of microaspiration. Recommend continue oral care. Oral Medication Intake: NPO Supervision While Eating and Drinking for Safe Swallow: PO with COMMUNITY NURSE Swallowing Recommended Treatments: Compens. Strategy Educat. Recommendation for Speech: Inpatient Speech Therapy Comment: Patient has baseline wet cough. Intermittent wet, congested cough with all consistencies. Unable to rule in/out aspiration. Unable to identify safe consistencies. Recommend continue NPO. Patient was recently extubated on 05/17/21. Patient has NG tube. COMMUNITY NURSE will continue to follow. Patient may benefit from continued speech therapy services for dysphagia at next level of care due to underlying MS. Medication Nurse Clinican/Clinical Fellow: No Supervisory Statement: I have reviewed and agree with the student/clinical fellow's documentation: N/A Speech Language Pathologist: Heather Larsen M.A., [facility]-COMMUNITY NURSE
[2021-05-18] MEDS: KCl 40 mEq in 5% Dex/0.45% Sod 40 MEQ/1,000 ML IV.SOLN 42 MEQ IVCONT (10:25)
[2021-05-18 11:10] LABS: Glucose, Whole Blood 179 mg/dL (60-115)
[2021-05-18] MEDS: cefTRIAXone sodium 1 GM in 0.9 % Sodium Chloride 50 ML IV (12:32)
[2021-05-18] MEDS: Insulin Lispro 100 UNIT/ML 3 ML VIAL SUBCUT ×3 (12:32→21:28)
[2021-05-18 13:21] LABS: PEU-Protein Creat Ratio Rand 1.297 (0.022-0.128); PEU-Rand. Prot/Creat Ratio 1297 mg/g creat (22-128); PEU-Random Ur. Gamma Globulin 22 %; PEU-Random Urine A1 Globulin 4 %; PEU-Random Urine A2 Globulin 14 %; PEU-Random Urine Albumin 32 %; PEU-Random Urine Beta Globulin 28 %; PEU-Random Urine Creatinine 37 mg/dL (20-320); PEU-Random Urine Protein 48 mg/dL (5-25)
--- NOTE | 2021-05-18 13:23 | MHC.CLN ---
PT EXTUBATED BUT NG TUBE REMAINS IN PLACE PITCH WORKER REC CONTINUES WITH NPO SPOKE WITH MD DURING ROUNDS GLUCERNA AT MAX GOAL RATE OF 40CC/HR WITH 240CC FREE WATER Q 6HRS TO PROVIDE 960KCALS, 40G PROTEIN, 1778CC TOTAL WATER FROM FORMULA AND FLUSH MONITOR TOLERANCE, RESIDUALS AND LYTES
[2021-05-18] MEDS: Zinc Oxide 20% Ointment 28.35 GM TUBE 1 APPL TOPICAL (14:22)
[2021-05-18 14:56] LABS: Anion Gap 14 (12-20); Blood Urea Nitrogen 15 mg/dL (9-16); Calcium 7.8 mg/dL (8.4-10.2); Carbon Dioxide 24 mmol/L (22-29); Chloride 112 mmol/L (96-108); Creatinine Clr Calc Pharmacy 94.2; Estimated Glomerular Filt Rate > 60; Glucose Random 230 mg/dL (60-115); Potassium 3.8 mmol/L (3.3-5.1); Sodium 146 mmol/L (135-145)
[2021-05-18] MEDS: Artificial Tears 15 ML DROPS 2 DROP EYE-BOTH (15:40)
[2021-05-18] MEDS: prednisoLONE Acetate 1 % Oph Susp 5 ML DRPBTL 1 DROP EYE-BOTH ×2 (15:40→23:40)
--- NOTE | 2021-05-18 17:13 | P.PNCC_ITS ---
Subjective Subjective Date of Service: 05/18/21 Interval History: 76-year-old male bed ridden because of multiple sclerosis with atonic bladder and chronic indwelling Nunez catheter presented with urosepsis with the same organism which is Proteus he had profound Gram-negative septic shock requiring 3 pressors at maximum doses and intubation to sustain his hemodynamics and never developed significant renal insufficiency nor ARDS successfully extubated and weaned from all pressors and CVP is 5 so he is euvolemic diuresing very well downgraded to ceftriaxone which the organism is susceptible to and followed by wound care for some excoriations related to his bullous pemphigoid and other autoimmune disease currently on stress dose steroids and slowly being weaned and just has mild confusion but significant improvement in cognitive status Critical Care Time (minutes): 45 Physical Exam Vital Signs: Vital Signs: Last Vital Signs Temp 99.7 F 05/18/21 16:00 Pulse 114 H 05/18/21 16:00 Resp 20 05/18/21 16:00 BP 151/68 H 05/18/21 16:00 Pulse Ox 93 05/18/21 16:00 Oxygen Flow Rate 2 05/14/21 20:19 Body Mass Index 27.1 Const: Other: Oriented to place and self nonfocal neurologically Cardiovascular stable with CVP of 5 normal sinus rhythm no gallops Chest clear with no adventitious sounds Abdomen soft no organomegaly but being fed by NG tube because of dysphagia according to the swallow people Skin is covered with significant ecchymotic lesions but no active cellulitis Objective Data Labs CBC & Chem 7: 05/18/21 05:20 05/18/21 14:11 Labs: Laboratory Results - last 24 hr 05/16/21 05/17/21 05/18/21 07:28 21:10 05:18 WBC RBC Hgb Hct MCV MCH MCHC RDW Plt Count MPV Immature Gran % (Auto) Neut % (Auto) Lymph % (Auto) [place] % (Auto) Eos % (Auto) Baso % (Auto) Lymph # (Auto) Stafford # (Auto) Eos # (Auto) Baso # (Auto) Abs Immat Gran (auto) Absolute Neuts (auto) Absolute Nucleated RBC Nucleated RBC % (auto) Smear Tech's Comments PT INR APTT VBG pH 7.48 H VBG pCO2 36 VBG pO2 43 VBG HCO3 27 H VBG O2 Saturation 74.0 VBG Base Excess 4.3 Sodium Potassium Chloride Carbon Dioxide Anion Gap BUN Creatinine Estim Creat Clear Calc Estimated GFR POC Glucose 169 H Random Glucose Calcium Phosphorus Magnesium Total Bilirubin Direct Bilirubin AST ALT Alkaline Phosphatase Total Protein Albumin U [place] Prot/Creat Ratio 1.297 H Ur Creatinine mg/dL 37 U Total Protein mg/dL 48 H Protein/Creatinin Ratio 1297 H Urine Albumin (%) 32 U Yowkq-7-Owxhipoz (%) 4 U Bzgep-1-Hfpukvkg (%) 14 U Beta Globulin (%) 28 U Gamma Globulin (%) 22 Urine PEP Interpret SEE NOTE 05/18/21 05/18/21 05/18/21 05:20 05:20 05:20 WBC 14.2 H RBC 3.28 L Hgb 9.8 L Hct 28.9 L MCV 88.1 MCH 29.9 MCHC 33.9 RDW 17.9 H Plt Count 124 L MPV 9.5 Immature Gran % (Auto) 1.8 H Neut % (Auto) 91.5 H Lymph % (Auto) 3.2 L Stafford % (Auto) 2.8 Eos % (Auto) 0.3 Baso % (Auto) 0.4 Lymph # (Auto) 0.5 L Stafford # (Auto) 0.4 Eos # (Auto) 0.0 Baso # (Auto) 0.1 Abs Immat Gran (auto) 0.26 H Absolute Neuts (auto) 13.0 H Absolute Nucleated RBC 0.000 Nucleated RBC % (auto) 0.0 Smear Tech's Comments VERIFIED PT 13.1 H INR 1.1 APTT 28.8 VBG pH VBG pCO2 VBG pO2 VBG HCO3 VBG O2 Saturation VBG Base Excess Sodium 146 H Potassium 2.4 L* Chloride 109 H Carbon Dioxide 23 Anion Gap 16 BUN 14 Creatinine 0.74 Estim Creat Clear Calc 90.4 Estimated GFR > 60 POC Glucose Random Glucose 151 H Calcium 7.8 L Phosphorus 1.3 L Magnesium 1.6 Total Bilirubin 1.9 H Direct Bilirubin 1.1 H AST 15 ALT 19 Alkaline Phosphatase 75 D Total Protein 5.0 L Albumin 2.9 L U [place] Prot/Creat Ratio Ur Creatinine mg/dL U Total Protein mg/dL Protein/Creatinin Ratio Urine Albumin (%) U Tsige-2-Lakuruij (%) U Fiynw-4-Xtnvqpub (%) U Beta Globulin (%) U Gamma Globulin (%) Urine PEP Interpret 05/18/21 05/18/21 05/18/21 07:21 11:07 14:11 WBC RBC Hgb Hct MCV MCH MCHC RDW Plt Count MPV Immature Gran % (Auto) Neut % (Auto) Lymph % (Auto) Stafford % (Auto) Eos % (Auto) Baso % (Auto) Lymph # (Auto) Stafford # (Auto) Eos # (Auto) Baso # (Auto) Abs Immat Gran (auto) Absolute Neuts (auto) Absolute Nucleated RBC Nucleated RBC % (auto) Smear Tech's Comments PT INR APTT VBG pH VBG pCO2 VBG pO2 VBG HCO3 VBG O2 Saturation VBG Base Excess Sodium 146 H Potassium 3.8 D Chloride 112 H Carbon Dioxide 24 Anion Gap 14 BUN 15 Creatinine 0.71 Estim Creat Clear Calc 94.2 Estimated GFR > 60 POC Glucose 142 H 179 H Random Glucose 230 H D Calcium 7.8 L Phosphorus Magnesium Total Bilirubin Direct Bilirubin AST ALT Alkaline Phosphatase Total Protein Albumin U [place] Prot/Creat Ratio Ur Creatinine mg/dL U Total Protein mg/dL Protein/Creatinin Ratio Urine Albumin (%) U Jqcrt-2-Qglidrzx (%) U Ussez-9-Ulocosyn (%) U Beta Globulin (%) U Gamma Globulin (%) Urine PEP Interpret Microbiology Microbiology Results: Microbiology 05/14/21 14:16 Blood - Venous Blood Culture - Preliminary No growth after 48 hours. 05/14/21 14:16 Blood - Venous Blood Culture - Preliminary No growth after 48 hours. 05/14/21 17:52 Urine clean catch - Clean Catch Midstream Urine Culture - Final Proteus mirabilis Progress Note: A&P Assessment and plan (1) Decubitus ulcer of coccygeal region, stage 2: Status: Acute (2) Aspiration pneumonitis: Status: Acute (3) Sepsis: Status: Acute (4) Acute hypotension: Status: Acute (5) Recurrent UTI (urinary tract infection): Status: Acute (6) Hypotonic neurogenic bladder: Status: Acute (7) Hematuria: Status: Acute (8) Constipation: Status: Acute (9) Shoulder pain: Status: Acute (10) Septic shock: Status: Acute (11) Anemia: Status: Acute (12) Wound of foot: Status: Acute (13) Lytic lesion of bone on x-ray: Status: Acute (14) Multiple sclerosis: Status: Acute Assessment and Plan: Transferring to [facility] to continue antibiotics and continue feedings and as his cognitive function continues to repair reassess his swallow capability but until then maintain NG tube Quality Stroke Does the patient have a stroke diagnosis?: No Reason for No Anti-thrombotic by Day Two: Contraindicated VTE Prior VTE?: No VTE Risk Level:: Medical - moderate - high VTE Device Contraindication: N/A - Device Ordered VTE Drug Contraindication: Treatment Not Tolerated
[2021-05-18 17:19] LABS: Glucose, Whole Blood 223 mg/dL (60-115)
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
[2021-05-19 03:45] VITALS: BP 168/83; PULSE 123; TEMP 36.8; O2SAT 97
[2021-05-19 05:48] LABS: Venous Blood Gas Refer to POC result
[2021-05-19 05:49] LABS: VBG Base Excess 3.5 mmol/L; VBG HCO3 25 mmol/L (22-26); VBG pCO2 29 mmHg; VBG pH 7.54 (7.32-7.43); VBG pO2 78 mmHg
[2021-05-19 06:00] VITALS: BMI 22.6
[2021-05-19] MEDS: prednisoLONE Acetate 1 % Oph Susp 5 ML DRPBTL 1 DROP EYE-BOTH ×3 (07:04→22:12)
[2021-05-19] MEDS: KCl 40 mEq in 5% Dex/0.45% Sod 40 MEQ/1,000 ML IV.SOLN 42 MEQ IVCONT (07:07)
[2021-05-19 07:25] LABS: Glucose, Whole Blood 263 mg/dL (60-115)
[2021-05-19 07:38] VITALS: BP 142/80; PULSE 110; RESP 20; TEMP 36.8; O2SAT 96
[2021-05-19] MEDS: Hydrocortisone Sod Succ/PF 100 MG VIAL 40 MG IVPUSH (08:18)
[2021-05-19] MEDS: Insulin Lispro 100 UNIT/ML 3 ML VIAL SUBCUT ×4 (08:18→22:12)
[2021-05-19 09:55] LABS: Anion Gap 13 (12-20); Blood Urea Nitrogen 16 mg/dL (9-16); Calcium 7.5 mg/dL (8.4-10.2); Carbon Dioxide 24 mmol/L (22-29); Chloride 108 mmol/L (96-108); Creatinine Clr Calc Pharmacy 99.3; Estimated Glomerular Filt Rate > 60; Glucose Random 295 mg/dL (60-115); Magnesium 1.6 mg/dL (1.6-2.6); Potassium 2.9 mmol/L (3.3-5.1); Sodium 142 mmol/L (135-145)
[2021-05-19 11:08] VITALS: BP 149/71; PULSE 110; RESP 18; TEMP 36.7; O2SAT 97
[2021-05-19 11:29] LABS: Glucose, Whole Blood 173 mg/dL (60-115)
[2021-05-19] MEDS: cefTRIAXone sodium 1 GM in 0.9 % Sodium Chloride 50 ML IV (12:45)
[2021-05-19 15:22] VITALS: BP 147/77; PULSE 109; RESP 19; TEMP 38.1; O2SAT 96
[2021-05-19] MEDS: Potassium Chloride Packet 20 MEQ PACKET 40 MEQ NG-TUBE (15:43)
[2021-05-19] MEDS: Nystatin Powder 15 GM BOTTLE 1 APPL TOPICAL ×2 (15:43→21:55)
[2021-05-19] MEDS: Potassium Chloride/H20 10 MEQ/100 ML PIGGYBACK 100 MEQ IV ×4 (15:43→19:32)
--- NOTE | 2021-05-19 16:17 | P.PNIM_ITS ---
Subjective Subjective Date of Service: 05/19/21 Interval History: stepped down from ICU yesterday awake, alert wet cough feels very weak currently febrile to 100.6 Physical Exam Vital Signs: Vital Signs: Last Vital Signs Temp 100.6 F H 05/19/21 15:22 Pulse 109 H 05/19/21 15:22 Resp 19 05/19/21 15:22 BP 147/77 H 05/19/21 15:22 Pulse Ox 96 05/19/21 15:22 Oxygen Flow Rate 2 05/14/21 20:19 Body Mass Index 22.6 Gen: in no acute distress HEENT: sclera anicteric, moist mucus membranes, NGT in place running tube feeds Neck: supple, RIJ 3LC without signs of infection day #6 Lungs: bilateral basilar wet inspiratory crackles Heart: regular rate and rhythm, no murmurs Abd: soft, non-tender, non-distended Ext: no edema Skin: multiple ecchymoses and skin tears Neuro: alert and oriented x3 Psych: appropriate affect Objective Data Current Medications Generic Name Dose Route Start Last Admin Trade Name Freq PRN Reason Stop Dose Admin Artificial Tears 2 drop 05/17/21 19:15 05/18/21 15:40 Artificial Tears 15 Ml Drops EYE-BOTH 2 drop Q4H PRN Administration Dry Eyes Ascorbic Acid 1,000 mg 05/20/21 09:00 Ascorbic Acid 500 Mg Tablet PO DAILY [facility] Aspirin 81 mg 05/20/21 09:00 Aspirin 81 Mg Tab.Chew PO DAILY [facility] Baclofen 20 mg 05/19/21 21:00 Baclofen 20 Mg Tablet PO TID [facility] Bisacodyl 10 mg 05/20/21 09:00 Bisacodyl 10 Mg Supp.Rect VT DAILY [facility] Gabapentin 300 mg 05/20/21 06:30 Gabapentin 300 Mg Capsule PO BID@0630,1200 [facility] Gabapentin 800 mg 05/19/21 21:00 Gabapentin 600 Mg Tablet PO BEDTIME [facility] Guaifenesin ml 05/19/21 16:15 Guaifenesin 100 Mg/5 Ml Liquid PO Q4H PRN Cough Hydrocortisone Sodium Succinate 20 mg 05/19/21 09:33 05/19/21 10:58 Hydrocortisone Sod Succ/Pf 100 Mg Vial IVPUSH Not Given Q12H [facility] Ceftriaxone Sodium 1 gm/ 50 mls @ 100 mls/hr 05/16/21 13:00 05/19/21 13:20 Sodium Chloride IV Infused Q24H [facility] Infusion Potassium Chloride/Dextrose/Sod Cl 40 meq in 1,000 mls @ 42 mls/hr 05/18/21 06:30 05/19/21 07:07 IVCONT 42 mls/hr .[id number] [facility] Administration Potassium Chloride 10 meq in 100 mls @ 100 mls/hr 05/19/21 16:00 05/19/21 15:43 IV 05/19/21 19:59 100 mls/hr Q1H [facility] Administration Insulin Human Lispro 0 unit 05/15/21 11:30 05/19/21 12:45 Insulin Lispro 100 Unit/Ml 3 Ml Vial SUBCUT 2 unit QIDACHS [facility] Administration Protocol Non-Formulary Medication 10 mg 05/20/21 09:00 Citalopram PO DAILY [facility] Non-Formulary Medication 10 mg 05/20/21 09:00 Rosuvastatin PO DAILY [facility] Nystatin 1 appl 05/19/21 15:00 05/19/21 15:43 Nystatin Powder 15 Gm Bottle TOPICAL 1 appl TID [facility] Administration Protocol Potassium Chloride 40 meq 05/18/21 12:00 05/19/21 12:46 Potassium Chloride Packet 20 Meq Packet PO Not Given ONCE@1200 [facility] Prednisolone Acetate 1 drop 05/18/21 14:45 05/19/21 15:42 Prednisolone Acetate 1 % Oph Susp 5 Ml Drpbtl EYE-BOTH 1 drop Q8H [facility] Administration Trazodone HCl 25 mg 05/19/21 21:00 Trazodone Hcl 25 Mg Halftab PO BEDTIME [facility] Zinc Oxide 1 appl 05/17/21 17:34 05/18/21 14:22 Zinc Oxide 20% Ointment 28.35 Gm Tube TOPICAL 1 appl DAILY PRN Administration Rash Protocol Labs CBC & Chem 7: 05/18/21 05:20 05/19/21 05:33 Labs: Laboratory Results - last 24 hr 05/16/21 05/18/21 05/19/21 07:28 17:13 05:33 VBG pH VBG pCO2 VBG pO2 VBG HCO3 VBG O2 Saturation VBG Base Excess Sodium 142 Potassium 2.9 L D Chloride 108 Carbon Dioxide 24 Anion Gap 13 BUN 16 Creatinine 0.66 Estim Creat Clear Calc 99.3 Estimated GFR > 60 POC Glucose 223 H Random Glucose 295 H Calcium 7.5 L Magnesium 1.6 U Abnormal Prot Band 1 TNP U Abnormal Prot Band 2 TNP U Abnormal Prot Band 3 TNP 05/19/21 05/19/21 05/19/21 05:41 07:19 11:11 VBG pH 7.54 H VBG pCO2 29 VBG pO2 78 VBG HCO3 25 VBG O2 Saturation 96.0 VBG Base Excess 3.5 Sodium Potassium Chloride Carbon Dioxide Anion Gap BUN Creatinine Estim Creat Clear Calc Estimated GFR POC Glucose 263 H 173 H Random Glucose Calcium Magnesium U Abnormal Prot Band 1 U Abnormal Prot Band 2 U Abnormal Prot Band 3 Quality Stroke Does the patient have a stroke diagnosis?: No Reason for No Anti-thrombotic by Day Two: Contraindicated VTE Prior VTE?: No VTE Risk Level:: Medical - moderate - high VTE Device Contraindication: N/A - Device Ordered VTE Drug Contraindication: Treatment Not Tolerated Assessment and Plan (1) Aspiration pneumonitis: Status: Acute (2) Recurrent UTI (urinary tract infection): Status: Acute (3) Hypotonic neurogenic bladder: Status: Acute (4) Septic shock: Status: Acute Assessment and Plan: hospital d#6 76yo M SNF resident with MS with atnoic bladder/chronic Nunez, DM2, CKD, BPH, bullous pemphigoid EMS called due to hypoxic, vomitingt admitted to ICU with septic shock requiring 3 pressors at one point intubated for acute respiratory failure 05/15, extubated 05/17 weaned off pressors, extubated, and stepped down to IMC 05/18/21 # septic shock due to UTI, ?pneumonia - Proteus R only to nitrofurantoin. ABX narrowed from pip/sterling + vanco to ceftriaxone alone. - BCx negative - check CXR, PCT - was given stress-dose hydrocortisone (on chronic prednisone for bullous pemphigoid)- wean as tolerated - holding amlodipine for now - question of ruptured urinary bladder on CT scan but inflammatory stranding in paracolic gutters ultimately attributed to ischemic colitis per ICU attending - on NG tube feeds. [employer] evaluation and eventual advance to PO feeds. # acute respiratory failure due to septic shock - extubated, wean O2 as tolerated # hypoK - resolved # intertrigo vs bullous pemphigoid - not pressure injury per Wound Care consult, continue zinc and nystatin # MS - resume gabapentin, baclofen # DM2 - correction-dose lispro # VTE ppx - LMWH # dispo - long-term SNF resident due to bedbound status
[2021-05-19 16:30] LABS: Glucose, Whole Blood 223 mg/dL (60-115)
[2021-05-19] MEDS: guaiFENesin 100 MG/5 ML LIQUID 10 ML PO (17:29)
[2021-05-19] MEDS: Enoxaparin Sodium 40 MG/0.4 ML SYRINGE SUBCUT (17:29)
[2021-05-19 19:23] VITALS: BP 138/77; PULSE 115; RESP 20; TEMP 37.1; O2SAT 95
[2021-05-19] MEDS: Gabapentin 600 MG TABLET 800 MG PO (21:56)
[2021-05-19] MEDS: traZODone HCL 25 MG HALFTAB PO (21:56)
[2021-05-19] MEDS: Hydrocortisone Sod Succ/PF 100 MG VIAL 20 MG IVPUSH (21:56)
[2021-05-19] MEDS: Baclofen 20 MG TABLET PO (21:56)
[2021-05-19 22:13] LABS: Glucose, Whole Blood 174 mg/dL (60-115)
[2021-05-20] VITALS (8 sets, daily range): BP systolic 128–165; BP diastolic 64–80; PULSE 100–120; RESP 18–22; TEMP 36.2–37.4; O2SAT 93–96; BMI 24.3
[2021-05-20 06:26] LABS: Venous Blood Gas Refer to POC result
[2021-05-20 06:27] LABS: VBG Base Excess 4.1 mmol/L; VBG HCO3 27 mmol/L (22-26); VBG pCO2 36 mmHg; VBG pH 7.48 (7.32-7.43); VBG pO2 38 mmHg
[2021-05-20] MEDS: prednisoLONE Acetate 1 % Oph Susp 5 ML DRPBTL 1 DROP EYE-BOTH ×3 (06:27→22:06)
[2021-05-20] MEDS: Gabapentin 300 MG CAPSULE PO (06:27)
[2021-05-20 06:31] LABS: Hematocrit 28.5 % (42-52); Hemoglobin 9.4 g/dl (14.0-18.0); Mean Corpuscular Hemoglobin 28.9 pg (27.0-33.0); Mean Corpuscular Volume 87.7 fL (80-98); Mean Platelet Volume 10.4 fL (9.4-12.4); Platelet Count 122 X10*3/uL (160-400); Red Blood Count 3.25 X10*6/uL (4.60-5.80); Red Cell Distribution Width 17.7 % (11.0-16.0); White Blood Count 5.1 X10*3/uL (4.8-10.8)
[2021-05-20 06:54] LABS: Anion Gap 10 (12-20); Blood Urea Nitrogen 16 mg/dL (9-16); Calcium 7.8 mg/dL (8.4-10.2); Carbon Dioxide 26 mmol/L (22-29); Chloride 107 mmol/L (96-108); Creatinine Clr Calc Pharmacy 102.9; Estimated Glomerular Filt Rate > 60; Glucose Random 288 mg/dL (60-115); Potassium 3.6 mmol/L (3.3-5.1); Sodium 139 mmol/L (135-145)
[2021-05-20 07:25] LABS: Glucose, Whole Blood 252 mg/dL (60-115)
[2021-05-20] MEDS: Insulin Lispro 100 UNIT/ML 3 ML VIAL SUBCUT ×3 (07:49→16:38)
[2021-05-20 08:34] LABS: Procalcitonin 2.62 ng/mL
[2021-05-20] MEDS: Ascorbic Acid 500 MG TABLET 1000 MG PO (08:48)
[2021-05-20] MEDS: Hydrocortisone Sod Succ/PF 100 MG VIAL 10 MG IVPUSH ×2 (08:48→21:55)
[2021-05-20] MEDS: Aspirin 81 MG TAB.CHEW PO (08:48)
[2021-05-20] MEDS: Escitalopram Oxalate 5 MG TABLET PO (08:48)
[2021-05-20] MEDS: Baclofen 20 MG TABLET PO ×3 (08:48→21:54)
[2021-05-20] MEDS: Nystatin Powder 15 GM BOTTLE 1 APPL TOPICAL ×3 (09:12→21:56)
[2021-05-20] MEDS: HYDROcodone Bit/Acetam 5/325 TABLET 1 TAB PO (09:31)
[2021-05-20] MEDS: guaiFENesin 100 MG/5 ML LIQUID 10 ML PO (09:37)
--- NOTE | 2021-05-20 10:19 | MHC.SL.SWA ---
Speech Pathologist Impression: Risk of Aspiration Oralpharyngeal Dysphagia Risk of Aspiration Due to: History of Pneumonia Hx of Recent Extubation Dysphasia Diet Status: No Change Liquid Consistency and Strategies for Safe Swallow: Liquid Intake Recommendation: NPO Solid Food Consistency: Dietary Recommendations: NPO Additional Modifications to Solid Foods: Patient has NG tube. Keep head of bed elevated at least 30 degrees to reduce risk of microaspiration. Recommend continue oral care. Oral Medication Intake: NPO Compensatory Strategies and Precautions to be Taken for Safe Swallow: Supervision While Eating and Drinking for Safe Swallow: PO with PATIENT RELATIONS LIAISON Swallowing Recommended Treatments: Compens. Strategy Educat. Recommendation for Speech: Inpatient Speech Therapy Comment: Patient has baseline wet cough. Intermittent wet, congested cough with all consistencies. Unable to rule in/out aspiration. Unable to identify safe consistencies. Recommend continue NPO. Patient was recently extubated on 05/17/21. Patient has NG tube. RECOMMEND MBSS DUE TO OVERT S/S OF ASPIRATION, DX OF PNEUMONIA, AND UNDERLYING MS. MESSAGE SENT TO MD. PATIENT RELATIONS LIAISON will continue to follow. Patient may benefit from continued speech therapy services for dysphagia at next level of care due to underlying MS. Online Retailer Clinican/Clinical Fellow: No Supervisory Statement: I have reviewed and agree with the student/clinical fellow's documentation: N/A Speech Language Pathologist: Heather Larsen M.A., [facility]-PATIENT RELATIONS LIAISON
[2021-05-20 11:21] LABS: Glucose, Whole Blood 216 mg/dL (60-115)
[2021-05-20] MEDS: cefTRIAXone sodium 1 GM in 0.9 % Sodium Chloride 50 ML IV (12:50)
--- NOTE | 2021-05-20 14:39 | P.PNIM_ITS ---
Subjective Subjective Date of Service: 05/20/21 Interval History: no further fever weaned off O2 wet cough continues Physical Exam Vital Signs: Vital Signs: Last Vital Signs Temp 97.1 F 05/20/21 11:30 Pulse 101 H 05/20/21 11:30 Resp 22 H 05/20/21 11:30 BP 128/64 05/20/21 11:30 Pulse Ox 94 05/20/21 11:30 Oxygen Flow Rate 2 05/14/21 20:19 Body Mass Index 24.3 Gen: in no acute distress HEENT: sclera anicteric, moist mucus membranes, NGT in place running tube feeds Neck: supple, RIJ 3LC without signs of infection day #7 Lungs: bilateral basilar wet inspiratory crackles Heart: regular rate and rhythm, no murmurs Abd: soft, non-tender, non-distended Ext: no edema Skin: multiple ecchymoses and skin tears Neuro: alert and oriented x3 Psych: appropriate affect Objective Data Current Medications Generic Name Dose Route Start Last Admin Trade Name Freq PRN Reason Stop Dose Admin Acetaminophen 650 mg 05/20/21 08:56 Acetaminophen 325 Mg Tablet PO Q6H PRN pain,mild Hydrocodone Bitart/Acetaminophen 1 tab 05/20/21 08:56 05/20/21 09:31 Hydrocodone Bit/Acetam 5/325 Tablet PO 1 tab Q4H PRN Administration pain,moderate-severe Artificial Tears 2 drop 05/17/21 19:15 05/18/21 15:40 Artificial Tears 15 Ml Drops EYE-BOTH 2 drop Q4H PRN Administration Dry Eyes Ascorbic Acid 1,000 mg 05/20/21 09:00 05/20/21 08:48 Ascorbic Acid 500 Mg Tablet PO 1,000 mg DAILY [facility] Administration Aspirin 81 mg 05/20/21 09:00 05/20/21 08:48 Aspirin 81 Mg Tab.Chew PO 81 mg DAILY [facility] Administration Baclofen 20 mg 05/19/21 21:00 05/20/21 08:48 Baclofen 20 Mg Tablet PO 20 mg TID [facility] Administration Bisacodyl 10 mg 05/20/21 09:00 05/20/21 08:55 Bisacodyl 10 Mg Supp.Rect GA Not Given DAILY [facility] Enoxaparin Sodium 40 mg 05/19/21 18:00 05/19/21 17:29 Enoxaparin Sodium 40 Mg/0.4 Ml Syringe SUBCUT 40 mg Q24H [facility] Administration Escitalopram Oxalate 5 mg 05/20/21 09:00 05/20/21 08:48 Escitalopram Oxalate 5 Mg Tablet PO 5 mg DAILY [facility] Administration Gabapentin 300 mg 05/20/21 06:30 05/20/21 12:21 Gabapentin 300 Mg Capsule PO Not Given BID@0630,1200 [facility] Gabapentin 800 mg 05/19/21 21:00 05/19/21 21:56 Gabapentin 600 Mg Tablet PO 800 mg BEDTIME [facility] Administration Guaifenesin 10 ml 05/19/21 16:15 05/20/21 09:37 Guaifenesin 100 Mg/5 Ml Liquid PO 10 ml Q4H PRN Administration Cough Hydrocortisone Sodium Succinate 10 mg 05/20/21 09:00 05/20/21 08:48 Hydrocortisone Sod Succ/Pf 100 Mg Vial IVPUSH 10 mg Q12H [facility] Administration Ceftriaxone Sodium 1 gm/ 50 mls @ 100 mls/hr 05/16/21 13:00 05/20/21 13:56 Sodium Chloride IV Infused Q24H [facility] Infusion Insulin Glargine 6 unit 05/20/21 21:00 Insulin Glargine,Hum.Rec.Anlog 100 Unit/Ml 10 Ml Vial SUBCUT BEDTIME [facility] Insulin Human Lispro 0 unit 05/15/21 11:30 05/20/21 11:39 Insulin Lispro 100 Unit/Ml 3 Ml Vial SUBCUT 4 unit QIDACHS [facility] Administration Protocol Non-Formulary Medication 10 mg 05/20/21 09:00 Rosuvastatin PO DAILY [facility] Nystatin 1 appl 05/19/21 15:00 05/20/21 09:12 Nystatin Powder 15 Gm Bottle TOPICAL 1 appl TID [facility] Administration Protocol Potassium Chloride 40 meq 05/18/21 12:00 05/20/21 12:21 Potassium Chloride Packet 20 Meq Packet PO Not Given ONCE@1200 [facility] Prednisolone Acetate 1 drop 05/18/21 14:45 05/20/21 12:56 Prednisolone Acetate 1 % Oph Susp 5 Ml Drpbtl EYE-BOTH 1 drop Q8H [facility] Administration Trazodone HCl 25 mg 05/19/21 21:00 05/19/21 21:56 Trazodone Hcl 25 Mg Halftab PO 25 mg BEDTIME [facility] Administration Zinc Oxide 1 appl 05/17/21 17:34 05/18/21 14:22 Zinc Oxide 20% Ointment 28.35 Gm Tube TOPICAL 1 appl DAILY PRN Administration Rash Protocol Labs CBC & Chem 7: 05/20/21 06:19 05/20/21 06:19 Labs: Laboratory Results - last 24 hr 05/19/21 05/19/21 05/20/21 16:24 22:03 06:19 WBC 5.1 RBC 3.25 L Hgb 9.4 L Hct 28.5 L MCV 87.7 MCH 28.9 MCHC 33.0 RDW 17.7 H Plt Count 122 L MPV 10.4 Absolute Nucleated RBC 0.000 Nucleated RBC % (auto) 0.0 VBG pH VBG pCO2 VBG pO2 VBG HCO3 VBG O2 Saturation VBG Base Excess Sodium Potassium Chloride Carbon Dioxide Anion Gap BUN Creatinine Estim Creat Clear Calc Estimated GFR POC Glucose 223 H 174 H Random Glucose Calcium Procalcitonin 05/20/21 05/20/21 05/20/21 06:19 06:19 06:19 WBC RBC Hgb Hct MCV MCH MCHC RDW Plt Count MPV Absolute Nucleated RBC Nucleated RBC % (auto) VBG pH 7.48 H VBG pCO2 36 VBG pO2 38 VBG HCO3 27 H VBG O2 Saturation 66.0 VBG Base Excess 4.1 Sodium 139 Potassium 3.6 D Chloride 107 Carbon Dioxide 26 Anion Gap 10 L BUN 16 Creatinine 0.65 Estim Creat Clear Calc 102.9 Estimated GFR > 60 POC Glucose Random Glucose 288 H Calcium 7.8 L Procalcitonin 2.62 05/20/21 05/20/21 07:16 11:07 WBC RBC Hgb Hct MCV MCH MCHC RDW Plt Count MPV Absolute Nucleated RBC Nucleated RBC % (auto) VBG pH VBG pCO2 VBG pO2 VBG HCO3 VBG O2 Saturation VBG Base Excess Sodium Potassium Chloride Carbon Dioxide Anion Gap BUN Creatinine Estim Creat Clear Calc Estimated GFR POC Glucose 252 H 216 H Random Glucose Calcium Procalcitonin Microbiology Microbiology Results: Microbiology 05/14/21 14:16 Blood Culture - Final Blood - Venous No growth after 5 days. 05/14/21 14:16 Blood Culture - Final Blood - Venous No growth after 5 days. Quality Stroke Does the patient have a stroke diagnosis?: No Reason for No Anti-thrombotic by Day Two: Contraindicated VTE Prior VTE?: No VTE Risk Level:: Medical - moderate - high VTE Device Contraindication: N/A - Device Ordered VTE Drug Contraindication: Treatment Not Tolerated Assessment and Plan (1) Aspiration pneumonitis: Status: Acute (2) Recurrent UTI (urinary tract infection): Status: Acute (3) Hypotonic neurogenic bladder: Status: Acute (4) Septic shock: Status: Acute Assessment and Plan: hospital d#7 76yo M SNF resident with MS with atnoic bladder/chronic Nunez, DM2, CKD, BPH, bullous pemphigoid EMS called due to hypoxia + vomiting admitted to ICU with septic shock requiring 3 pressors intubated for acute respiratory failure 05/15 weaned off pressors, extubated 05/17, and stepped down to IMC 05/18 # septic shock due to UTI, ?pneumonia - Proteus R only to nitrofurantoin. ABX narrowed from pip/sterling + vanco to ceftriaxone alone; BCx negative - trend PCT - was given stress-dose hydrocortisone (on chronic prednisone for bullous pemphigoid)- continue to wean- 10 mg bid today - holding amlodipine for now - question of ruptured urinary bladder on CT scan but inflammatory stranding in paracolic gutters ultimately attributed to ischemic colitis per ICU attending - on NG tube feeds. INS[employer]OR [employer] recommends MBSS- will order for tomorrow. if unable to swallow safely will need PEG tube - d/c CVC today # acute respiratory failure due to septic shock - extubated, weaned off O2 # hypoK - replted # intertrigo vs bullous pemphigoid - not pressure injury per Wound Care consult, continue zinc and nystatin # MS - resumed gabapentin, baclofen # DM2 - correction-dose lispro, add basal insulin [on levemir as outpt] # VTE ppx - LMWH # dispo - long-term SNF resident @ [facility] due to bedbound status
[2021-05-20 16:24] LABS: Glucose, Whole Blood 178 mg/dL (60-115)
[2021-05-20] MEDS: Albuterol/Iprat 2.5/0.5MG 3 ML AMPUL.NEB INHALE (17:33)
[2021-05-20] MEDS: Enoxaparin Sodium 40 MG/0.4 ML SYRINGE SUBCUT (18:09)
[2021-05-20 20:43] LABS: Glucose, Whole Blood 139 mg/dL (60-115)
[2021-05-20] MEDS: traZODone HCL 25 MG HALFTAB PO (21:53)
[2021-05-20] MEDS: Gabapentin 600 MG TABLET 800 MG PO (21:54)
[2021-05-20] MEDS: Insulin Glargine,Hum.rec.anlog 100 UNIT/ML 10 ML VIAL 6 UNIT SUBCUT (21:55)
[2021-05-21] VITALS (7 sets, daily range): BP systolic 124–153; BP diastolic 58–69; PULSE 93–100; RESP 16–20; TEMP 36.2–36.6; O2SAT 93–99; BMI 24.5
[2021-05-21] MEDS: prednisoLONE Acetate 1 % Oph Susp 5 ML DRPBTL 1 DROP EYE-BOTH ×3 (06:10→21:53)
[2021-05-21] MEDS: Gabapentin 300 MG CAPSULE PO ×2 (06:10→16:49)
[2021-05-21 06:55] LABS: Anion Gap 13 (12-20); Blood Urea Nitrogen 16 mg/dL (9-16); Calcium 7.6 mg/dL (8.4-10.2); Carbon Dioxide 23 mmol/L (22-29); Chloride 107 mmol/L (96-108); Creatinine Clr Calc Pharmacy 95.5; Estimated Glomerular Filt Rate > 60; Glucose Random 268 mg/dL (60-115); Magnesium 1.7 mg/dL (1.6-2.6); Potassium 3.7 mmol/L (3.3-5.1); Sodium 139 mmol/L (135-145)
[2021-05-21 07:38] LABS: Procalcitonin 1.52 ng/mL
[2021-05-21 07:42] LABS: Glucose, Whole Blood 236 mg/dL (60-115)
[2021-05-21] MEDS: Ascorbic Acid 500 MG TABLET 1000 MG PO (08:10)
[2021-05-21] MEDS: Aspirin 81 MG TAB.CHEW PO (08:10)
[2021-05-21] MEDS: Insulin Lispro 100 UNIT/ML 3 ML VIAL SUBCUT ×3 (08:10→21:53)
[2021-05-21] MEDS: Escitalopram Oxalate 5 MG TABLET PO (08:10)
[2021-05-21] MEDS: Baclofen 20 MG TABLET PO ×3 (08:10→21:51)
[2021-05-21] MEDS: Hydrocortisone Sod Succ/PF 100 MG VIAL 10 MG IVPUSH (08:11)
[2021-05-21] MEDS: Nystatin Powder 15 GM BOTTLE 1 APPL TOPICAL ×3 (08:23→21:53)
[2021-05-21] MEDS: Artificial Tears 15 ML DROPS 2 DROP EYE-BOTH (08:23)
[2021-05-21 10:11] LABS: Prot Elec - Albumin 2.2 g/dL (3.8-4.8); Prot Elec - Alpha1 0.4 g/dL (0.2-0.3); Prot Elec - Alpha2 0.6 g/dL (0.5-0.9); Prot Elec - Beta 1 0.3 g/dL (0.4-0.6); Prot Elec - Beta 2 0.3 g/dL (0.2-0.5); Prot Elec - Gamma 0.5 g/dL (0.8-1.7); Prot Elec - Total Protein 4.2 g/dL (6.1-8.1)
--- NOTE | 2021-05-21 10:40 | MHC.CLN ---
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
--- NOTE | 2021-05-21 10:48 | MHC.SLORD ---
Speech Language Pathology Order Status: Patient is scheduled for MBSS today at 2:45pm. Patient is NPO. Further recommendations to follow pending MBSS results.
[2021-05-21] MEDS: Albuterol/Iprat 2.5/0.5MG 3 ML AMPUL.NEB INHALE ×2 (11:08→17:33)
--- NOTE | 2021-05-21 11:19 | MHC.CM.PN ---
Per ROUNDS discussion, Patient is not yet medically cleared for dc (NGT in place, needs MBS/?need for PEG). DC plan is to return to LTC @ [facility] and CM will follow.
[2021-05-21 11:39] LABS: Glucose, Whole Blood 164 mg/dL (60-115)
[2021-05-21] MEDS: cefTRIAXone sodium 1 GM in 0.9 % Sodium Chloride 50 ML IV (13:09)
--- NOTE | 2021-05-21 13:17 | HO.PM.IMPN ---
Subjective Subjective Date of Service: 05/21/21 Interval History: no fever wet cough; albuterol helps for MBSS today Physical Exam Vital Signs: Vital Signs: Last Vital Signs Temp 97.9 F 05/21/21 12:00 Pulse 97 05/21/21 12:00 Resp 16 05/21/21 12:00 BP 124/58 L 05/21/21 12:00 Pulse Ox 97 05/21/21 12:00 Oxygen Flow Rate 2 05/14/21 20:19 Body Mass Index 24.5 Gen: in no acute distress HEENT: sclera anicteric, moist mucus membranes, NGT in place Neck: supple Lungs: bilateral basilar wet inspiratory crackles Heart: regular rate and rhythm, no murmurs Abd: soft, non-tender, non-distended Ext: no edema Skin: multiple ecchymoses and skin tears Neuro: alert and oriented x3 Psych: appropriate affect Objective Data Current Medications Generic Name Dose Route Start Last Admin Trade Name Freq PRN Reason Stop Dose Admin Acetaminophen 650 mg 05/20/21 08:56 Acetaminophen 325 Mg Tablet PO Q6H PRN pain,mild Hydrocodone Bitart/Acetaminophen 1 tab 05/20/21 08:56 05/20/21 09:31 Hydrocodone Bit/Acetam 5/325 Tablet PO 1 tab Q4H PRN Administration pain,moderate-severe Albuterol/Ipratropium 3 ml 05/20/21 18:00 05/21/21 11:08 Albuterol/Iprat 2.5/0.5mg 3 Ml Ampul.Neb INHALE 3 ml RQ6H [facility] Administration Artificial Tears 2 drop 05/17/21 19:15 05/21/21 08:23 Artificial Tears 15 Ml Drops EYE-BOTH 2 drop Q4H PRN Administration Dry Eyes Ascorbic Acid 1,000 mg 05/20/21 09:00 05/21/21 08:10 Ascorbic Acid 500 Mg Tablet PO 1,000 mg DAILY [facility] Administration Aspirin 81 mg 05/20/21 09:00 05/21/21 08:10 Aspirin 81 Mg Tab.Chew PO 81 mg DAILY [facility] Administration Baclofen 20 mg 05/19/21 21:00 05/21/21 08:10 Baclofen 20 Mg Tablet PO 20 mg TID [facility] Administration Bisacodyl 10 mg 05/20/21 09:00 05/21/21 08:11 Bisacodyl 10 Mg Supp.Rect MO 10 mg DAILY [facility] Administration Enoxaparin Sodium 40 mg 05/19/21 18:00 05/20/21 18:09 Enoxaparin Sodium 40 Mg/0.4 Ml Syringe SUBCUT 40 mg Q24H [facility] Administration Escitalopram Oxalate 5 mg 05/20/21 09:00 05/21/21 08:10 Escitalopram Oxalate 5 Mg Tablet PO 5 mg DAILY [facility] Administration Gabapentin 300 mg 05/20/21 06:30 05/21/21 06:10 Gabapentin 300 Mg Capsule PO 300 mg BID@0630,1200 [facility] Administration Gabapentin 800 mg 05/19/21 21:00 05/20/21 21:54 Gabapentin 600 Mg Tablet PO 800 mg BEDTIME [facility] Administration Guaifenesin 10 ml 05/19/21 16:15 05/20/21 09:37 Guaifenesin 100 Mg/5 Ml Liquid PO 10 ml Q4H PRN Administration Cough Hydrocortisone Sodium Succinate 5 mg 05/21/21 21:00 Hydrocortisone Sod Succ/Pf 100 Mg Vial IVPUSH Q12H [facility] Ceftriaxone Sodium 1 gm/ 50 mls @ 100 mls/hr 05/16/21 13:00 05/21/21 13:09 Sodium Chloride IV 100 mls/hr Q24H [facility] Administration Insulin Glargine 10 unit 05/21/21 21:00 Insulin Glargine,Hum.Rec.Anlog 100 Unit/Ml 10 Ml Vial SUBCUT BEDTIME [facility] Insulin Human Lispro 0 unit 05/15/21 11:30 05/21/21 11:50 Insulin Lispro 100 Unit/Ml 3 Ml Vial SUBCUT Not Given QIDACHS [facility] Protocol Non-Formulary Medication 10 mg 05/20/21 09:00 Rosuvastatin PO DAILY [facility] Nystatin 1 appl 05/19/21 15:00 05/21/21 08:23 Nystatin Powder 15 Gm Bottle TOPICAL 1 appl TID [facility] Administration Protocol Potassium Chloride 40 meq 05/18/21 12:00 05/20/21 12:21 Potassium Chloride Packet 20 Meq Packet PO Not Given ONCE@1200 [facility] Prednisolone Acetate 1 drop 05/18/21 14:45 05/21/21 13:09 Prednisolone Acetate 1 % Oph Susp 5 Ml Drpbtl EYE-BOTH 1 drop Q8H [facility] Administration Trazodone HCl 25 mg 05/19/21 21:00 05/20/21 21:53 Trazodone Hcl 25 Mg Halftab PO 25 mg BEDTIME [facility] Administration Zinc Oxide 1 appl 05/17/21 17:34 05/18/21 14:22 Zinc Oxide 20% Ointment 28.35 Gm Tube TOPICAL 1 appl DAILY PRN Administration Rash Protocol Labs CBC & Chem 7: 05/20/21 06:19 05/21/21 05:42 Labs: Laboratory Results - last 24 hr 05/16/21 05/20/21 05/20/21 05:15 16:15 20:39 Sodium Potassium Chloride Carbon Dioxide Anion Gap BUN Creatinine Estim Creat Clear Calc Estimated GFR POC Glucose 178 H 139 H Random Glucose Calcium Magnesium Total Protein (PEP) 4.2 L Albumin (PEP) 2.2 L Tihuu-3-Bymfguhcu 0.4 H Worlx-9-Qzzwqwzzq 0.6 Bulb-3-Tqwjycra 0.3 L Ucvd-9-Jrtvnfgo 0.3 Gamma Globulins 0.5 L PEP Interpretation SEE NOTE Procalcitonin 05/21/21 05/21/21 05/21/21 05:42 05:42 07:33 Sodium 139 Potassium 3.7 Chloride 107 Carbon Dioxide 23 Anion Gap 13 BUN 16 Creatinine 0.70 Estim Creat Clear Calc 95.5 Estimated GFR > 60 POC Glucose 236 H Random Glucose 268 H Calcium 7.6 L Magnesium 1.7 Total Protein (PEP) Albumin (PEP) Wefea-9-Ugzknftyu Rqdjd-2-Baahhvuhw Duvh-3-Ztffiwth Utwg-8-Wktodeny Gamma Globulins PEP Interpretation Procalcitonin 1.52 05/21/21 11:24 Sodium Potassium Chloride Carbon Dioxide Anion Gap BUN Creatinine Estim Creat Clear Calc Estimated GFR POC Glucose 164 H Random Glucose Calcium Magnesium Total Protein (PEP) Albumin (PEP) Ezzjd-0-Dnhsgfzrz Kfxxa-2-Bltvpdbqm Jpdb-5-Ochxksjp Nlxn-1-Pvbvidco Gamma Globulins PEP Interpretation Procalcitonin Quality Stroke Does the patient have a stroke diagnosis?: No Reason for No Anti-thrombotic by Day Two: Contraindicated VTE Prior VTE?: No VTE Risk Level:: Medical - moderate - high VTE Device Contraindication: N/A - Device Ordered VTE Drug Contraindication: Treatment Not Tolerated Assessment and Plan (1) Aspiration pneumonitis: Status: Acute (2) Recurrent UTI (urinary tract infection): Status: Acute (3) Hypotonic neurogenic bladder: Status: Acute (4) Septic shock: Status: Acute Assessment and Plan: hospital d#8 76yo M SNF resident with MS with atonic bladder/chronic Nunez, DM2, CKD, BPH, bullous pemphigoid EMS called due to hypoxia + vomiting admitted to ICU with septic shock requiring 3 pressors intubated for acute respiratory failure 05/15 weaned off pressors, extubated 05/17, and stepped down to IMC 05/18 # septic shock due to UTI, ?pneumonia - Proteus R only to nitrofurantoin. ABX narrowed from pip/sterling + vanco to ceftriaxone alone, d#6; BCx negative - trend PCT - was given stress-dose hydrocortisone (on chronic prednisone 2.5 mg/d for bullous pemphigoid)- continue to wean- 5 mg bid today - holding amlodipine for now - question of ruptured urinary bladder on CT scan but inflammatory stranding in paracolic gutters ultimately attributed to ischemic colitis per ICU attending - will d/c NG tube today. MBSS later today; if unable to swallow safely will need PEG tube # acute respiratory failure due to septic shock, resolved - extubated, weaned off O2 # hypoK - repleted # intertrigo vs bullous pemphigoid - not pressure injury per Wound Care consult, continue zinc and nystatin # MS - continue gabapentin, baclofen # DM2 - correction-dose lispro + basal glargine # VTE ppx - LMWH # dispo - long-term SNF resident @ [facility] due to bedbound status, return once feeding issue addressed
[2021-05-21 15:56] LABS: Glucose, Whole Blood 169 mg/dL (60-115)
--- NOTE | 2021-05-21 15:57 | MHC.SL.MBSTD ---
Referring provider: Devi Dickerson MD Reason for Referral: Rule in/out aspiration Type of Treatment: 93300 Modified Barium Swallow Study Date of Plan of Treatment: 05/21/21 Onset of Symptoms/Illness: 05/18/21 Date Treatment Started: 05/18/21 Medical Diagnosis: Aspiration pneumonia, sepsis, acute hypotension Speech & Language Primary Diagnosis:R13.12 Oropharyngeal Phase Dysphagia Impressions and Recommendations Summary: This exam was conducted by speech-language pathologist and radiologist with patient seated upright at optimal 90 degree angle for lateral view only. Patient trialed the following liquid and solid consistencies: -thin liquid barium by straw -pureed solid (applesauce mixed with barium paste) -ground solid (chicken salad mixed with barium paste) -regular solid (Griselda Doone cookie coated in barium paste) Patient demonstrated mild oropharyngeal dysphagia characterized by impairments in the following components of swallow physiology: ORAL PHASE: -premature posterior escape of less than 50% of bolus (trace) prior to initiation of pharyngeal swallow trigger -mildly prolonged mastication when eating hard solid -repetitive posterior tongue motion -trace oral residue PHARYNGEAL PHASE: -partial superior movement of thyroid cartilage but with complete anterior hyoid movement and complete epiglottic inversion -reduced tongue base retraction -mild pharyngeal retention No evidence of aspiration or penetration evident during this exam. With all consistencies, note mild retention on tongue base and in valleculae. Multiple swallow strategy was effective in reducing vallecular residue. Impact on Daily Function/Activity Limitations: Daily Activities: None Interpersonal Interactions: None Education: None Employment: None Community: None Prognosis for Improvement: Good Recommendation for Speech Therapy: Inpatient Speech Therapy Text Comment: SALSA DANCE INSTRUCTOR to follow up 1x time to discuss results of MBSS and recommended strategies. Frequency/Duration: 1x Notes: Recommend CHOPPED/ADVANCED (NDD3) solids and THIN liquids with pills WHOLE in PUREE or LIQUID per patient's tolerance. SALSA DANCE INSTRUCTOR will follow up with patient 1x time to review precautions: -intermittent supervision during meals -upright 90 degree position when eating and/or drinking -small bites of food -food to be cut into bite size pieces and served with sauce or gravy -chew food well -alternate bite of food with sip of liquid -double swallow with each bite and with each sip to clear vallecular retention -one sip of liquid at a time -frequent oral care Patient Education Completed: Yes Patient/Caregiver Education: Described Results of Evaluation Patient expressed understanding of evaluation Welt Sole Layer Clinican/Clinical Fellow: No Supervisory Statement: N/A Speech Language Pathologist: Heather Larsen M.A., CCC-SALSA DANCE INSTRUCTOR
[2021-05-21] MEDS: Potassium Chloride Packet 20 MEQ PACKET 40 MEQ PO (16:49)
[2021-05-21] MEDS: Enoxaparin Sodium 40 MG/0.4 ML SYRINGE SUBCUT (16:50)
[2021-05-21 20:08] LABS: Glucose, Whole Blood 216 mg/dL (60-115)
[2021-05-21] MEDS: Gabapentin 600 MG TABLET 800 MG PO (21:51)
[2021-05-21] MEDS: traZODone HCL 25 MG HALFTAB PO (21:51)
[2021-05-21] MEDS: Hydrocortisone Sod Succ/PF 100 MG VIAL IVPUSH (21:51)
[2021-05-21] MEDS: Insulin Glargine,Hum.rec.anlog 100 UNIT/ML 10 ML VIAL 10 UNIT SUBCUT (21:52)
[2021-05-22] VITALS (10 sets, daily range): BP systolic 114–152; BP diastolic 58–72; PULSE 68–104; RESP 18; TEMP 35.6–37; O2SAT 96–100
--- NOTE | 2021-05-22 01:17 | PM.EVENT ---
Event Note Date of Service: 05/22/21 Event Note: Diarrhea: pt on Antibiotics; Sent Stool studies including C diff
[2021-05-22] MEDS: prednisoLONE Acetate 1 % Oph Susp 5 ML DRPBTL 1 DROP EYE-BOTH ×3 (06:25→21:30)
[2021-05-22] MEDS: Gabapentin 300 MG CAPSULE PO ×2 (06:25→11:15)
[2021-05-22 07:15] LABS: Glucose, Whole Blood 161 mg/dL (60-115)
[2021-05-22] MEDS: Ascorbic Acid 500 MG TABLET 1000 MG PO (07:44)
[2021-05-22] MEDS: Baclofen 20 MG TABLET PO ×3 (07:44→21:29)
[2021-05-22] MEDS: Insulin Lispro 100 UNIT/ML 3 ML VIAL SUBCUT ×4 (07:44→21:30)
[2021-05-22] MEDS: Aspirin 81 MG TAB.CHEW PO (07:45)
[2021-05-22] MEDS: Escitalopram Oxalate 5 MG TABLET PO (07:45)
[2021-05-22] MEDS: Nystatin Powder 15 GM BOTTLE 1 APPL TOPICAL ×2 (07:46→15:56)
[2021-05-22] MEDS: predniSONE 2.5 MG TABLET PO (07:50)
[2021-05-22 10:55] LABS: Glucose, Whole Blood 210 mg/dL (60-115)
--- NOTE | 2021-05-22 11:25 | MHC.CLN ---
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
--- NOTE | 2021-05-22 11:48 | MHC.SL.SWA ---
Speech Pathologist Impression: Risk of Aspiration Oralpharyngeal Dysphagia Risk of Aspiration Due to: History of Pneumonia Hx of Recent Extubation Dysphasia Diet Status: No Change Liquid Consistency and Strategies for Safe Swallow: Liquid Intake Recommendation: Thin Liquid Intake Strategies: Small Sips Solid Food Consistency: Dietary Recommendations: Chopped/Advanced (NDD3) Oral Medication Intake: Whole with Puree Compensatory Strategies and Precautions to be Taken for Safe Swallow: Sitting Upright (90 deg) Double Swallow Small Bites and Sips Alternate Liquids/Solids Rate of Ingestion Change Avoid Specific Foods Supervision While Eating and Drinking for Safe Swallow: Intermittent Supervision Foods to Avoid: Avoid sticky and tough foods. Swallowing Recommended Treatments: Compens. Strategy Educat. Recommendation for Speech: Inpatient Speech Therapy MBSS completed 05/21/21. Please refer to full report. Patient appears to be on appropriate diet textures. ST intervention no longer warranted. Please re-refer if there are any changes or if SALES AND LEASING AGENT can be of further assistance. Portrait Consultant Clinican/Clinical Fellow: No Supervisory Statement: I have reviewed and agree with the student/clinical fellow's documentation: N/A Speech Language Pathologist: Heather Larsen M.A., CCC-SALES AND LEASING AGENT
[2021-05-22 12:04] LABS: COVID-19 Test Negative (Negative); IDNOW Serial# 08D9AD1C
[2021-05-22] MEDS: cefTRIAXone sodium 1 GM in 0.9 % Sodium Chloride 50 ML IV (12:56)
[2021-05-22] MEDS: Albuterol/Iprat 2.5/0.5MG 3 ML AMPUL.NEB INHALE ×2 (12:56→17:53)
--- NOTE | 2021-05-22 14:42 | PC.NURSE ---
Skin assessment completed today. Patient has a skin tear on right arm, 2 skin tears on left arm, skin tear on medial right upper leg, maceration to coccyx and buttocks area, and venous stasis ulcer to bilateral toes. Wound care performed on all wounds. All wounds are improving.
--- NOTE | 2021-05-22 14:57 | P.PNIM_ITS ---
Subjective Subjective Date of Service: 05/22/21 Interval History: cough resolving, tolerating NDD3 solids, feeling much better Physical Exam Vital Signs: Vital Signs: Last Vital Signs Temp 96.1 F L 05/22/21 10:59 Pulse 104 H 05/22/21 12:57 Resp 18 05/22/21 10:59 BP 144/65 H 05/22/21 11:00 Pulse Ox 99 05/22/21 10:59 Body Mass Index 24.5 Gen: in no acute distress, on room air HEENT: sclera anicteric, moist mucus membranes Neck: supple Lungs: bilateral basilar wet inspiratory crackles Heart: regular rate and rhythm, no murmurs Abd: soft, non-tender, non-distended Ext: no edema Skin: multiple ecchymoses and skin tears Neuro: alert and oriented x3 Psych: appropriate affect Objective Data Current Medications Generic Name Dose Route Start Last Admin Trade Name Freq PRN Reason Stop Dose Admin Acetaminophen 650 mg 05/20/21 08:56 Acetaminophen 325 Mg Tablet PO Q6H PRN pain,mild Hydrocodone Bitart/Acetaminophen 1 tab 05/20/21 08:56 05/20/21 09:31 Hydrocodone Bit/Acetam 5/325 Tablet PO 1 tab Q4H PRN Administration pain,moderate-severe Albuterol/Ipratropium 3 ml 05/20/21 18:00 05/22/21 12:56 Albuterol/Iprat 2.5/0.5mg 3 Ml Ampul.Neb INHALE 3 ml RQ6H [facility] Administration Artificial Tears 2 drop 05/17/21 19:15 05/21/21 08:23 Artificial Tears 15 Ml Drops EYE-BOTH 2 drop Q4H PRN Administration Dry Eyes Ascorbic Acid 1,000 mg 05/20/21 09:00 05/22/21 07:44 Ascorbic Acid 500 Mg Tablet PO 1,000 mg DAILY [facility] Administration Aspirin 81 mg 05/20/21 09:00 05/22/21 07:45 Aspirin 81 Mg Tab.Chew PO 81 mg DAILY [facility] Administration Baclofen 20 mg 05/19/21 21:00 05/22/21 07:44 Baclofen 20 Mg Tablet PO 20 mg TID [facility] Administration Bisacodyl 10 mg 05/20/21 09:00 05/22/21 07:45 Bisacodyl 10 Mg Supp.Rect CA Not Given DAILY [facility] Enoxaparin Sodium 40 mg 05/19/21 18:00 05/21/21 16:50 Enoxaparin Sodium 40 Mg/0.4 Ml Syringe SUBCUT 40 mg Q24H [facility] Administration Escitalopram Oxalate 5 mg 05/20/21 09:00 05/22/21 07:45 Escitalopram Oxalate 5 Mg Tablet PO 5 mg DAILY [facility] Administration Gabapentin 300 mg 05/20/21 06:30 05/22/21 11:15 Gabapentin 300 Mg Capsule PO 300 mg BID@0630,1200 [facility] Administration Gabapentin 800 mg 05/19/21 21:00 05/21/21 21:51 Gabapentin 600 Mg Tablet PO 800 mg BEDTIME [facility] Administration Guaifenesin 10 ml 05/19/21 16:15 05/20/21 09:37 Guaifenesin 100 Mg/5 Ml Liquid PO 10 ml Q4H PRN Administration Cough Ceftriaxone Sodium 1 gm/ 50 mls @ 100 mls/hr 05/16/21 13:00 05/22/21 13:29 Sodium Chloride IV Infused Q24H [facility] Infusion Insulin Glargine 10 unit 05/21/21 21:00 05/21/21 21:52 Insulin Glargine,Hum.Rec.Anlog 100 Unit/Ml 10 Ml Vial SUBCUT 10 unit BEDTIME [facility] Administration Insulin Human Lispro 0 unit 05/15/21 11:30 05/22/21 11:15 Insulin Lispro 100 Unit/Ml 3 Ml Vial SUBCUT 4 unit QIDACHS [facility] Administration Protocol Non-Formulary Medication 10 mg 05/20/21 09:00 Rosuvastatin PO DAILY [facility] Nystatin 1 appl 05/19/21 15:00 05/22/21 07:46 Nystatin Powder 15 Gm Bottle TOPICAL 1 appl TID [facility] Administration Protocol Prednisolone Acetate 1 drop 05/18/21 14:45 05/22/21 13:00 Prednisolone Acetate 1 % Oph Susp 5 Ml Drpbtl EYE-BOTH 1 drop Q8H [facility] Administration Prednisone 2.5 mg 05/22/21 09:00 05/22/21 07:50 Prednisone 2.5 Mg Tablet PO 2.5 mg DAILY [facility] Administration Trazodone HCl 25 mg 05/19/21 21:00 05/21/21 21:51 Trazodone Hcl 25 Mg Halftab PO 25 mg BEDTIME [facility] Administration Zinc Oxide 1 appl 05/17/21 17:34 05/18/21 14:22 Zinc Oxide 20% Ointment 28.35 Gm Tube TOPICAL 1 appl DAILY PRN Administration Rash Protocol Labs CBC & Chem 7: 05/20/21 06:19 05/21/21 05:42 Labs: Laboratory Results - last 24 hr 05/21/21 05/21/21 05/22/21 15:52 20:04 07:08 POC Glucose 169 H 216 H 161 H COVID-19 ([facility]) COVID-19 Clin Com 05/22/21 05/22/21 10:49 11:25 POC Glucose 210 H COVID-19 ([facility]) Negative COVID-19 Clin Com See Note Quality Stroke Does the patient have a stroke diagnosis?: No Reason for No Anti-thrombotic by Day Two: Contraindicated VTE Prior VTE?: No VTE Risk Level:: Medical - moderate - high VTE Device Contraindication: N/A - Device Ordered VTE Drug Contraindication: Treatment Not Tolerated Assessment and Plan (1) Aspiration pneumonitis: Status: Acute (2) Recurrent UTI (urinary tract infection): Status: Acute (3) Hypotonic neurogenic bladder: Status: Acute (4) Septic shock: Status: Acute Assessment and Plan: hospital d#9 76yo M SNF resident with MS with atonic bladder/chronic Nunez, DM2, CKD, BPH, bullous pemphigoid EMS called due to hypoxia + vomiting admitted to ICU with septic shock requiring 3 pressors intubated for acute respiratory failure 05/15 weaned off pressors, extubated 05/17, and stepped down to [facility]MC 05/18 # septic shock due to UTI, ?pneumonia - Proteus R only to nitrofurantoin. ABX narrowed from pip/sterling + vanco to ceftriaxone alone, d#7; BCx negative - trend PCT - was given stress-dose hydrocortisone- today weaned down to chronic prednisone 2.5 mg/d for bullous pemphigoid - continue to hold amlodipine - question of ruptured urinary bladder on CT scan but inflammatory stranding in paracolic gutters ultimately attributed to ischemic colitis per ICU attending - NG tube d/c'ed 05/21/21, MBSS shows no overt aspiration; on NDD3 solids + thin liquids as per REVIEW SPECIALIST # acute respiratory failure due to septic shock, resolved - extubated, weaned off O2 # hypoK - repleted # intertrigo vs bullous pemphigoid - not pressure injury per Wound Care consult, continue zinc and nystatin # MS - continue gabapentin, baclofen # DM2 - correction-dose lispro + basal glargine # VTE ppx - LMWH # dispo - long-term SNF resident @ [facility] due to bedbound status, return possibly tomorrow, needs COVID-19 [facility] prior
[2021-05-22 16:23] LABS: Glucose, Whole Blood 219 mg/dL (60-115)
[2021-05-22] MEDS: Enoxaparin Sodium 40 MG/0.4 ML SYRINGE SUBCUT (17:00)
[2021-05-22 20:48] LABS: Glucose, Whole Blood 206 mg/dL (60-115)
[2021-05-22] MEDS: Insulin Glargine,Hum.rec.anlog 100 UNIT/ML 10 ML VIAL 10 UNIT SUBCUT (21:29)
[2021-05-22] MEDS: Gabapentin 600 MG TABLET 800 MG PO (21:29)
[2021-05-22] MEDS: traZODone HCL 25 MG HALFTAB PO (21:30)
[2021-05-23 03:15] VITALS: BP 122/65; PULSE 85; RESP 18; TEMP 36.7; O2SAT 94
[2021-05-23 05:27] VITALS: BMI 24.6
[2021-05-23 06:21] LABS: Hematocrit 29.6 % (42-52); Hemoglobin 9.8 g/dl (14.0-18.0); Mean Corpuscular HGB Conc 33.1 g/dl (31.0-36.0); Mean Corpuscular Hemoglobin 29.8 pg (27.0-33.0); Mean Platelet Volume 10.4 fL (9.4-12.4); NRBC Pct Auto 0.5 /100WBC (0.0-0.2); Platelet Count 268 X10*3/uL (160-400); Red Blood Count 3.29 X10*6/uL (4.60-5.80); Red Cell Distribution Width 18.2 % (11.0-16.0); White Blood Count 6.4 X10*3/uL (4.8-10.8)
[2021-05-23] MEDS: Gabapentin 300 MG CAPSULE PO ×2 (06:38→11:35)
[2021-05-23] MEDS: prednisoLONE Acetate 1 % Oph Susp 5 ML DRPBTL 1 DROP EYE-BOTH (06:38)
[2021-05-23 06:48] LABS: Anion Gap 11 (12-20); Blood Urea Nitrogen 12 mg/dL (9-16); Calcium 7.8 mg/dL (8.4-10.2); Carbon Dioxide 28 mmol/L (22-29); Chloride 108 mmol/L (96-108); Creatinine Clr Calc Pharmacy 111.5; Estimated Glomerular Filt Rate > 60; Glucose Random 81 mg/dL (60-115); Potassium 4.1 mmol/L (3.3-5.1); Sodium 143 mmol/L (135-145)
[2021-05-23 07:08] LABS: Glucose, Whole Blood 82 mg/dL (60-115)
[2021-05-23 07:11] VITALS: BP 136/64; PULSE 95; RESP 18; TEMP 36.6; O2SAT 96
[2021-05-23 08:17] LABS: Procalcitonin 0.54 ng/mL
[2021-05-23] MEDS: Baclofen 20 MG TABLET PO ×2 (08:55→13:55)
[2021-05-23] MEDS: predniSONE 2.5 MG TABLET PO (08:55)
[2021-05-23] MEDS: Escitalopram Oxalate 5 MG TABLET PO (08:55)
[2021-05-23] MEDS: Ascorbic Acid 500 MG TABLET 1000 MG PO (08:55)
[2021-05-23] MEDS: Aspirin 81 MG TAB.CHEW PO (08:56)
[2021-05-23] MEDS: bisacodyL 10 MG SUPP.RECT PR (08:59)
[2021-05-23] MEDS: Albuterol/Iprat 2.5/0.5MG 3 ML AMPUL.NEB INHALE (11:06)
[2021-05-23 11:08] LABS: Glucose, Whole Blood 171 mg/dL (60-115)
[2021-05-23 11:10] VITALS: BP 143/65; PULSE 89; RESP 20; TEMP 36.4; O2SAT 100
[2021-05-23] MEDS: Insulin Lispro 100 UNIT/ML 3 ML VIAL SUBCUT (11:38)
--- NOTE | 2021-05-23 12:08 | P.DS_ITS ---
DS: Providers Provider Date of Service: 05/23/21 Date of admission: 05/14/21 20:19 Primary care physician: Luzma Tinajero MD Consults: 05/14/21 20:14 Consult to Urology Stat Consulting Provider: Miguel Angel Bartholomew Reason for consultation: ? ruptured urinary bladder Has provider been notified: Yes 05/17/21 06:15 Consult to Wound Care Routine Consulting Provider: Eder Rico Reason for consultation: stage II coccyx and lesions from bullous pemphigoid Has provider been notified: Yes DS: Diagnosis Discharge Diagnosis (1) Aspiration pneumonitis: Status: Acute (2) Recurrent UTI (urinary tract infection): Status: Acute (3) Hypotonic neurogenic bladder: Status: Acute (4) Septic shock: Status: Acute (5) Steroid dependence: Status: Acute (6) Decubitus ulcer of coccygeal region, stage 2: Status: Acute (7) Multiple sclerosis: Status: Acute (8) Bullous pemphigoid: Status: Acute DS: Medications Discharge Medications Home Medications: Home Medications Medication Instructions Recorded Confirmed bisacodyl 10 mg NH DAILY 10/09/20 05/19/21 gabapentin 300 mg PO BID@0630,1200 10/09/20 05/19/21 metformin 500 mg PO BID 10/09/20 05/19/21 tramadol 50 mg PO BID PRN 10/09/20 05/19/21 trazodone 25 mg PO BEDTIME 10/09/20 05/19/21 acetaminophen 650 mg PO Q4H PRN 03/13/21 05/19/21 amlodipine 7.5 mg PO DAILY 03/13/21 05/19/21 aspirin 81 mg PO DAILY 03/13/21 05/19/21 gabapentin 800 mg PO BEDTIME 03/13/21 05/19/21 insulin lispro [Humalog U-100 100 sliding scale dose SUBCUT 03/13/21 05/19/21 Insulin] QIDACHS niacinamide 500 mg PO TID 03/13/21 05/19/21 rosuvastatin 10 mg PO DAILY 03/13/21 05/19/21 alum-mag hydroxide-simeth 30 ml PO Q6H PRN 04/20/21 05/19/21 nystatin-triamcinolone 1 appl TOPICAL TID 04/20/21 05/19/21 guaifenesin [Diabetic Tussin EX] 200 mg PO Q4H PRN 05/19/21 05/19/21 prednisone 2.5 mg PO DAILY 05/19/21 05/19/21 Previous Rx's Medication Instructions Recorded Levemir U-100 Insulin 10 unit SUBCUT BEDTIME #0 ml 10/11/20 citalopram 10 mg PO DAILY #0 tab 10/11/20 baclofen 20 mg PO TID #0 tab 10/12/20 ascorbic acid (vitamin C) 1,000 mg 1 g PO DAILY 90 Days #90 tab 04/11/21 tablet cefdinir 300 mg PO BID #6 cap 05/23/21 DS: Summary Hospital Course Hospital Course: from admission history and physical by explosive ordnance disposal specialist SAUL Zuniga, 05/14/21: Patient is a 76-year-old male with a past medical history of MS, DM2, chronic renal failure, BPH and a chronic Nunez who was unable to ambulate and lives in a SNF. The SNF called EMS after the pt was found to be nauseous and then had an episode of vomiting with coffee-ground emesis, they noted his Sp O2 to be in the 70's. His blood pressures were labile. Patient's labs are significant for lactic acid of 3.8, bicarb 19, BUN 28, creatinine 1.95, GFR 34, bili 1.4, UA positive for infection and protein, chest x-ray was negative. Patient was treated with 2 L of normal saline and then started at 75 per hour, patient was given Zosyn Vanco and then when his blood pressures required it started on phenylephrine. He is also given 1 dose of fluconazole 200 mg. Patient's bicarb continued to climb, 2 hour lactic acid continued to climb to 4.2 and subsequently 2 hours later was 4.8. Patient was scanned, both his chest and abdomen, there was significant for questionable ruptured urinary bladder versus seroma versus lymphocele and stranding was noted in the bilateral paracolic gutters. During my exam, is at the bedside, nurses providing me the history. The states every time her becomes septic, he does get a rash with lesions that are water filled and then pop and peel, she also states he has had a rash on his back since at least last week. The patient was admitted to the ICU with profound septic shock and required 3 pressors and stress-dose steroids at one point. [He is on chronic low-dose prednisone for bullous pemphigoid.] He was intubated for acute respiratory failure due to the septic shock on 05/15/21. He was started on broad-spectrum antibiotics [vancomycin and piperacillin/tazobactam]. Ultimately, the sepsis was attributed to Proteus mirabilis UTI as well as pneumonia; antibiotics were narrowed to ceftriaxone. There was a question of a ruptured urinary bladder on CT scan, but the paracolic inflammatory stranding was ultimately attributed to sepsis-induced ischemic colitis rather than bladder rupture. He was placed on tube feeds via NG tube. He improved clinically and was extubated and weaned off of pressors on 05/17/21. He was stepped down to the [facility]MC on 05/18/21. NG tube was removed on 05/21/21 and an MBSS on that same day showed no overt aspiration. He was seen by LIVING ADVISOR and cleared for NDD3 diabetic solids and thin liquids, which he tolerated well. He was weaned off of oxygen and steroids were gradually weaned down to his baseline dose of 2.5 mg of prednisone daily. He was discharged back to [facility] for long-term [facility] care. He was prescribed 3 more days of antibiotic therapy with oral cefdinir upon discharge. Time Spent with Patient Time attestation: Total time spent providing and/or coordinating discharge services: 45 Discharge coordination time: Greater than 30 minutes Quality: Stroke Does the patient have a stroke diagnosis?: No Physical Exam Vital Signs: Vital Signs: Last Vital Signs Temp 97.5 F 05/23/21 11:10 Pulse 89 05/23/21 11:10 Resp 20 05/23/21 11:10 BP 143/65 H 05/23/21 11:10 Pulse Ox 100 05/23/21 11:10 Body Mass Index 24.6 DS: Data Data Completed and Pending Completed studies during hospitalization [Text1]: Laboratory Results WBC 6.4 X10*3/uL (4.8-10.8) 05/23/21 05:21 RBC 3.29 X10*6/uL (4.60-5.80) L 05/23/21 05:21 Hgb 9.8 g/dl (14.0-18.0) L 05/23/21 05:21 Hct 29.6 % (42-52) L 05/23/21 05:21 MCV 90.0 fL (80-98) 05/23/21 05:21 MCH 29.8 pg (27.0-33.0) 05/23/21 05:21 MCHC 33.1 g/dl (31.0-36.0) 05/23/21 05:21 RDW 18.2 % (11.0-16.0) H 05/23/21 05:21 Plt Count 268 X10*3/uL (160-400) D 05/23/21 05:21 MPV 10.4 fL (9.4-12.4) 05/23/21 05:21 Immature Gran % (Auto) 1.8 % (0.0-0.4) H 05/18/21 05:20 Neut % (Auto) 91.5 % (45-73) H 05/18/21 05:20 Lymph % (Auto) 3.2 % (20-40) L 05/18/21 05:20 Putnam % (Auto) 2.8 % (2-11) 05/18/21 05:20 Eos % (Auto) 0.3 % (0-4) 05/18/21 05:20 Baso % (Auto) 0.4 % (0-2) 05/18/21 05:20 Lymph # (Auto) 0.5 X10*3/uL (1.2-4.9) L 05/18/21 05:20 [place]nam # (Auto) 0.4 X10*3/uL (0.1-1.2) 05/18/21 05:20 Eos # (Auto) 0.0 X10*3/uL (0.0-0.4) 05/18/21 05:20 Baso # (Auto) 0.1 X10*3/uL (0.0-0.2) 05/18/21 05:20 Abs Immat Gran (auto) 0.26 X10*3/uL (0.00-0.03) H 05/18/21 05:20 Absolute Neuts (auto) 13.0 X10*3/uL (2.0-8.3) H 05/18/21 05:20 Absolute Nucleated RBC 0.030 X10*3/uL (0.0-0.012) H 05/23/21 05:21 Nucleated RBC % (auto) 0.5 /100WBC (0.0-0.2) H 05/23/21 05:21 Neutrophils % (Manual) 88 % (45-73) H 05/17/21 05:16 Band Neutrophils % 6 % (3-5) H 05/17/21 05:16 Lymphocytes % (Manual) 3 % (20-40) L 05/17/21 05:16 Monocytes % (Manual) 3 % (2-11) 05/17/21 05:16 Basophils % (Manual) 1 % (0-1) 05/14/21 22:29 Metamyelocytes % 1 % 05/16/21 05:15 Myelocytes % 1 % 05/15/21 05:30 Abs Neuts (Manual) 17.3 X10*3/uL (2.2-7.9) H 05/17/21 05:16 Lymphocytes # (Manual) 0.6 X10*3/uL (0.6-4.8) 05/17/21 05:16 Monocytes # (Manual) 0.6 X10*3/uL (0.0-1.2) 05/17/21 05:16 Basophils # (Manual) 0.2 X10*3/uL (0.0-0.3) 05/14/21 22:29 Metamyelocytes # 0.2 X10*3/uL 05/16/21 05:15 Myelocytes # 0.2 X10*/uL 05/15/21 05:30 Toxic Vacuolation PRESENT 05/17/21 05:16 Dohle Bodies PRESENT 05/17/21 05:16 Platelet Estimate SLIGHTLY DECREASED (NORMAL) 05/17/21 05:16 Plt Morphology Comment NORM 05/17/21 05:16 RBC Morphology NOTED 05/17/21 05:16 Polychromasia 1+ (0-2) /OIF 05/15/21 05:30 Hypochromasia 1+ (5-14) /OIF 05/17/21 05:16 Microcytosis 1+ (5-14) /OIF 05/17/21 05:16 Tear Drop Cells 1+ (0-2) /OIF 05/17/21 05:16 Ovalocytes 1+ (5-14) /OIF 05/17/21 05:16 [place]coe Cells 1+ ( /OIF 05/17/21 05:16 Acanthocytes (Spur) 1+ (0-2) /OIF 05/16/21 05:15 Smear Tech's Comments VERIFIED 05/18/21 05:20 Smear Path Review SEE NOTE 05/16/21 05:15 Haptoglobin 212 mg/dL (43-212) 05/16/21 05:15 PT 13.1 SEC (10.8-13.0) H 05/18/21 05:20 INR 1.1 (0.9-1.1) 05/18/21 05:20 APTT 28.8 SEC (24.1-38.0) 05/18/21 05:20 Fibrinogen > 700 MG/DL (259-690) H 05/16/21 05:15 VBG pH 7.48 (7.32-7.43) H 05/20/21 06:19 VBG pCO2 36 mmHg 05/20/21 06:19 VBG pO2 38 mmHg 05/20/21 06:19 VBG HCO3 27 mmol/L (22-26) H 05/20/21 06:19 VBG O2 Saturation 66.0 % 05/20/21 06:19 VBG Base Excess 4.1 mmol/L 05/20/21 06:19 Sodium 143 mmol/L (135-145) 05/23/21 05:21 Potassium 4.1 mmol/L (3.3-5.1) 05/23/21 05:21 Chloride 108 mmol/L (96-108) 05/23/21 05:21 Carbon Dioxide 28 mmol/L (22-29) 05/23/21 05:21 Anion Gap 11 (12-20) L 05/23/21 05:21 BUN 12 mg/dL (9-16) 05/23/21 05:21 Creatinine 0.60 mg/dL (0.5-1.4) 05/23/21 05:21 Estim Creat Clear Calc 111.5 05/23/21 05:21 Estimated GFR > 60 05/23/21 05:21 POC Glucose 171 mg/dL (60-115) H 05/23/21 11:02 Random Glucose 81 mg/dL (60-115) D 05/23/21 05:21 Lactic Acid 2.8 mmol/L (0.5-2.0) H* 05/16/21 01:00 Lactic Acid Fup @ 2Hr 2.7 mmol/L (0.5-2.0) H* 05/16/21 05:15 Lactic Acid Fup @ 4Hr 2.4 mmol/L (0.5-2.0) H* 05/16/21 07:39 Calcium 7.8 mg/dL (8.4-10.2) L 05/23/21 05:21 Phosphorus 1.3 mg/dL (2.7-4.5) L 05/18/21 05:20 Magnesium 1.7 mg/dL (1.6-2.6) 05/21/21 05:42 Total Bilirubin 1.9 mg/dL (0.0-1.0) H 05/18/21 05:20 Direct Bilirubin 1.1 mg/dL (0.0-0.5) H 05/18/21 05:20 AST 15 U/L (5-37) 05/18/21 05:20 ALT 19 U/L (0-40) 05/18/21 05:20 Alkaline Phosphatase 75 U/L (39-117) D 05/18/21 05:20 Lactate Dehydrogenase 175 U/L (118-273) 05/16/21 05:15 Total Protein 5.0 g/dL (6.5-8.0) L 05/18/21 05:20 Total Protein (PEP) 4.2 g/dL (6.1-8.1) L 05/16/21 05:15 Albumin 2.9 g/dL (3.5-5.0) L 05/18/21 05:20 Albumin (PEP) 2.2 g/dL (3.8-4.8) L 05/16/21 05:15 Ucwtg-9-Upljtxqat 0.4 g/dL (0.2-0.3) H 05/16/21 05:15 Qcsbd-2-Cbewbgnvg 0.6 g/dL (0.5-0.9) 05/16/21 05:15 Stka-4-Jiwyuxvh 0.3 g/dL (0.4-0.6) L 05/16/21 05:15 Hlgu-7-Wimvfyqm 0.3 g/dL (0.2-0.5) 05/16/21 05:15 Gamma Globulins 0.5 g/dL (0.8-1.7) L 05/16/21 05:15 Abnorm Protein Band 1 TNP 05/16/21 05:15 Abnorm Protein Band 2 TNP 05/16/21 05:15 Abnorm Protein Band 3 TNP 05/16/21 05:15 PEP Interpretation SEE NOTE 05/16/21 05:15 Amylase 96 U/L (28-100) 05/15/21 00:40 Lipase 8 U/L (8-78) 05/15/21 00:40 Procalcitonin 0.54 ng/mL 05/23/21 05:21 Urine Color YELLOW 05/14/21 17:52 Urine Appearance CLOUDY 05/14/21 17:52 Urine pH >= 9.0 (5.0-8.0) H 05/14/21 17:52 Ur Specific Prospect <= 1.005 (1.005-1.025) 05/14/21 17:52 Urine Protein 2+ MG/DL (NEG-TRACE) H 05/14/21 17:52 Urine Glucose (UA) NEG MG/DL (NEG) 05/14/21 17:52 Urine Ketones NEG MG/DL (NEG) 05/14/21 17:52 Urine Blood NEG (NEG) 05/14/21 17:52 Urine Nitrite POS (NEG) H 05/14/21 17:52 Ur Leukocyte Esterase 3+ (NEG) H 05/14/21 17:52 Urine RBC 5-9 /HPF (0) H 05/14/21 17:52 Urine WBC 0 /HPF (0-4) 05/14/21 17:52 Ur Squamous Epith Cells NONE /LPF 05/14/21 17:52 Triple Phos Crystals 4+ /LPF 05/14/21 17:52 Amorphous Sediment 4+ /LPF 05/14/21 17:52 Urine Bacteria 4+ /LPF 05/14/21 17:52 U [place] Prot/Creat Ratio 1.297 (0.022-0.128) H 05/16/21 07:28 Ur Creatinine mg/dL 37 mg/dL (20-320) 05/16/21 07:28 U Total Protein mg/dL 48 mg/dL (5-25) H 05/16/21 07:28 Protein/Creatinin Ratio 1297 mg/g creat (22-128) H 05/16/21 07:28 Urine Albumin (%) 32 % 05/16/21 07:28 U Plxhz-5-Tzeamnuz (%) 4 % 05/16/21 07:28 U Sdkwd-7-Qxtskmgd (%) 14 % 05/16/21 07:28 U Beta Globulin (%) 28 % 05/16/21 07:28 U Gamma Globulin (%) 22 % 05/16/21 07:28 U Abnormal Prot Band 1 TNP 05/16/21 07:28 U Abnormal Prot Band 2 TNP 05/16/21 07:28 U Abnormal Prot Band 3 TNP 05/16/21 07:28 Urine PEP Interpret SEE NOTE 05/16/21 07:28 Vancomycin Trough 5.8 mcg/mL (10.0-20.0) L 05/17/21 14:07 C. difficile Toxin A&B Negative (Negative) 05/14/21 01:15 C. difficile Antigen Negative (Negative) 05/14/21 01:15 C. difficile Interpret SEE NOTE 05/14/21 01:15 COVID-19 ([facility]) Negative (Negative) 05/22/21 11:25 COVID-19 Clin Com See Note 05/22/21 11:25 Impressions Abdomen/Pelvis CT 05/14/21 17:42 IMPRESSION: Bilateral dependent upper lobe and lower lobe atelectatic changes. Minimal atelectatic changes are seen in lingula as well. Mild posterior pleural thickenings more prominent on the left side. There is a diffuse bladder wall thickening with a Nunez's catheter within. Superior and to the left of bladder is intraperitoneal haziness with fluid collection and stranding extending bilateral paracolic gutter. The findings are highly suspicious for a ruptured urinary bladder, seroma or less likely lymphocele. This can be confirmed with cystography or cystoscopy. There is small amount of free fluid but no free air seen. Chest CT 05/14/21 17:42 IMPRESSION: Bilateral dependent upper lobe and lower lobe atelectatic changes. Minimal atelectatic changes are seen in lingula as well. Mild posterior pleural thickenings more prominent on the left side. There is a diffuse bladder wall thickening with a Nunez's catheter within. Superior and to the left of bladder is intraperitoneal haziness with fluid collection and stranding extending bilateral paracolic gutter. The findings are highly suspicious for a ruptured urinary bladder, seroma or less likely lymphocele. This can be confirmed with cystography or cystoscopy. There is small amount of free fluid but no free air seen. Chest X-Ray 05/19/21 17:04 IMPRESSION: 1. Right IJ catheter tip at caval atrial junction. 2. Nasogastric tube catheter tip in stomach. 3. Persistent left basilar density Modified Barium Swallow 05/21/21 15:15 IMPRESSION: Fluoroscopy guidance for modified barium swallow. Retention with multiple media. No aspiration or penetration seen. Discharge Plan Discharge Patient Disposition: [facility] Discharge Diagnosis: acute respiratory failure due to septic shock due to UTI and pneumonia Referrals: shivani ortiz [Other] - 1 Week Luzma Tinajero MD [Primary Care Provider] - 1 Week Discharge Medications: New cefdinir 300 mg capsule 300 mg PO BID Qty: 6 RF: 0 Continued bisacodyl 10 mg Suppository 10 mg NH DAILY RF: 0 metformin 500 mg Tablet 500 mg PO BID RF: 0 Hold Instructions: Resume on 03/25/21. Re-check renal function prior to restarting Metformin gabapentin 300 mg Capsule 300 mg PO BID@0630,1200 RF: 0 trazodone 50 mg Tablet 25 mg PO BEDTIME RF: 0 tramadol 50 mg Tablet 50 mg PO BID PRN (Reason: Pain) RF: 0 Levemir U-100 Insulin 100 unit/mL Solution 10 unit SUBCUT BEDTIME Qty: 0 RF: 0 citalopram 20 mg Tablet 10 mg PO DAILY Qty: 0 RF: 0 baclofen 20 mg Tablet 20 mg PO TID Qty: 0 RF: 0 acetaminophen 325 mg Tablet 650 mg PO Q4H PRN (Reason: pain or fever) RF: 0 gabapentin 600 mg Tablet 800 mg PO BEDTIME RF: 0 amlodipine 2.5 mg Tablet 7.5 mg PO DAILY RF: 0 niacinamide 500 mg Tablet 500 mg PO TID RF: 0 aspirin 81 mg Tablet,Chewable 81 mg PO DAILY RF: 0 rosuvastatin 10 mg Tablet 10 mg PO DAILY RF: 0 insulin lispro [Humalog U-100 Insulin] 100 unit/mL Solution 100 sliding scale dose subcut QIDACHS RF: 0 alum-mag hydroxide-simeth 225-200-25 mg/5 mL Suspension 30 ml PO Q6H PRN (Reason: Nausea) RF: 0 nystatin-triamcinolone 100,000-0.1 unit/g-% Cream 1 appl TOPICAL TID RF: 0 prednisone 2.5 mg Tablet 2.5 mg PO DAILY RF: 0 guaifenesin [Diabetic Tussin EX] 100 mg/5 mL Liquid 200 mg PO Q4H PRN (Reason: Cough) RF: 0 ascorbic acid (vitamin C) 1,000 mg tablet 1 g PO DAILY 90 Days Qty: 90 RF: 1 Discontinued doxycycline hyclate 100 mg Tablet 100 mg PO DAILY RF: 0 methenamine hippurate 1 gram tablet 1 g PO DAILY 90 Days Qty: 90 RF: 1 Discharge Orders: Discharge Order (Routine); Ordered 05/23/21 Ordered By: Devi Dickerson Diet: diabetic diet and other Activity on Discharge: As tolerated Stand Alone Forms: Patient Portal Discharge page Activity Restrictions/Additional Instructions: diabetic diet, NDD 3 (chopped) supplements: Glucerna 240 mL twice daily, Layo 1 packet twice daily Care Plan Goals: resolution of infections prevention of hospitalization Health Concerns: acute respiratory failure due to septic shock due to UTI and pneumonia Plan of Treatment: take cefdinir 300 mg twice daily for 3 more days return to [facility] for long-term care Assessment: as above Patient Instructions: Sepsis (GEN), Hypotension (DC)
--- NOTE | 2021-05-23 12:37 | MHC.CM.PN ---
robin /cass setting up transfer for pt to [facility]
== END 2021-05-23 15:43 | disposition skilled nursing facility (03) | DRG 870 ==
LOC: HO.ED 17:54 → HO.ICU 20:24 → HO.IMC 05-18 19:07
PROVIDERS: Physician Assistant; Admitting Provider Internal Medicine Cardiovascular Disease; Emergency Provider Emergency Medicine Emergency Medical Services; PCP Internal Medicine; Visit Provider Family Medicine
DX: A41.9 Sepsis, unspecified organism (principal); J69.0 Pneumonitis due to inhalation of food and vomit; R65.21 Severe sepsis with septic shock; J96.00 Acute respiratory failure, unspecified whether with hypoxia or hypercapnia; N39.0 Urinary tract infection, site not specified; N17.9 Acute kidney failure, unspecified; L12.0 Bullous pemphigoid; N40.0 Benign prostatic hyperplasia without lower urinary tract symptoms; G35 Multiple sclerosis; N31.9 Neuromuscular dysfunction of bladder, unspecified; N18.30 Chronic kidney disease, stage 3 unspecified; L89.152 Pressure ulcer of sacral region, stage 2; R31.9 Hematuria, unspecified; D63.1 Anemia in chronic kidney disease; B96.4 Proteus (mirabilis) (morganii) as the cause of diseases classified elsewhere; E11.9 Type 2 diabetes mellitus without complications; Z96.0 Presence of urogenital implants; L30.4 Erythema intertrigo; Z20.822 Contact with and (suspected) exposure to COVID-19; Z87.440 Personal history of urinary (tract) infections; Z79.4 Long term (current) use of insulin; Z79.82 Long term (current) use of aspirin; Z79.891 Long term (current) use of opiate analgesic; Z79.899 Other long term (current) drug therapy
CPT/HCPCS: 36415; 71045; 71250; 74176; 74230; 80048; 80076; 80202; 81001; 81003; 82150; 82247; 82570; 82947; 83010; 83605; 83615; 83690; 83735; 84100; 84145; 84155; 84156; 84165; 84166; 85007; 85025; 85027; 85384; 85610; 85730; 87040; 87086; 87088; 87186; 87324; 87449; 87635; 92610; 92611; 93005; 94002; 94003; 94640; 94799; 97162; 99284; J0696; J1450; J1650; J1940; J1956; J2370; J2543; J3370; J3475

== ENCOUNTER → 2021-07-16 09:53 | Outpatient (REF) | payer OTHER, SELFPAY ==
--- NOTE | ~2021-07-16 | NM_ITS ---
EXAMINATION: NM BONE SCAN OF THE WHOLE BODY CLINICAL INFORMATION: Disorder of bone, follow-up abnormal bone scan. History of MS and diabetes. Also history of left wrist fracture 25 years ago. COMPARISON: The previous bone scan dated 03/28/2021 is available for comparison. A radiograph of the chest dated 05/19/2021 is available for comparison. The diagnostic CT scan of the chest, abdomen, and pelvis, dated 05/14/2021, is available for comparison. TECHNIQUE: Multiple gamma scintillation camera images of the whole body were performed 2.75 hours following the intravenous administration of 28 mCi Tc-99m MDP. FINDINGS: In the head, no significant abnormalities are present. In the thoracic cage and upper extremities, there is minimally increased activity in the glenohumeral and acromioclavicular joints of the right shoulder in the left sternoclavicular joint, and moderately increased activity in the right sternoclavicular joint. In the spine, no significant abnormalities are present. In the pelvis, no significant abnormalities are present. In the lower extremities, there is mildly increased activity in the patellar and lateral compartment of the left knee an very faintly in the greater femoral trochanters bilaterally. Minimally increased activity in the lateral compartment of the right knee is also noted and there is a focus of mildly increased activity in the left ankle an another in the left first metatarsophalangeal joint region. No other definite bony abnormalities are noted. The urinary bladder and faint visualization of both kidneys are noted. A bladder catheter and collection bag are in place. NM/NM bone scan whole body IMPRESSION: Mild nonspecific abnormalities are noted as described above and these are all likely arthritic or traumatic in etiology. None of these abnormalities is strongly suspicious for metastatic disease.
== END ==
LOC: HO.NUCMED 09:53
PROVIDERS: PCP Family Medicine Geriatric Medicine; Visit Provider Internal Medicine Medical Oncology
DX: M89.9 Disorder of bone, unspecified (principal)
CPT/HCPCS: 78306; A9503

== ENCOUNTER → 2021-08-09 13:20 | Outpatient (REF) | payer OTHER, SELFPAY ==
--- NOTE | ~2021-08-09 | NM_ITS ---
EXAMINATION: NM BONE SCAN OF THE WHOLE BODY CLINICAL INFORMATION: Lytic bone lesion. COMPARISON: The previous bone scan dated 07/16/2021 is available for comparison. A radiograph of the chest dated 05/14/2021 is available for comparison. The diagnostic CT scan of the chest, abdomen, and pelvis, dated 05/14/2021, is available for comparison. TECHNIQUE: Multiple gamma scintillation camera images of the whole body were performed 2.5 hours following the intravenous administration of 26 mCi Tc-99m MDP. FINDINGS: In the head, no significant abnormalities are present. In the thoracic cage and upper extremities, there is mildly increased activity in the right sternoclavicular joint and minimally increased activity in the left sternoclavicular joint. Some residual radiopharmaceutical at the injection site in the left wrist region is noted. In the spine, no significant abnormalities are present. In the pelvis, no significant abnormalities are present. In the lower extremities, there is mildly increased activity in the knees bilaterally and in several toes and in the left ankle likely medially. No other definite bony abnormalities are noted. The urinary bladder and faint visualization of both kidneys are noted. Compared to the previous bone scan dated 07/16/2021, there has not been a significant change. DC/DC bone scan whole body IMPRESSION: A few mild nonspecific abnormalities are noted as described above and these are all likely arthritic or traumatic in etiology. None of these abnormalities is strongly suspicious for metastatic disease.
== END ==
LOC: HO.NUCMED 13:20
PROVIDERS: Visit Provider Internal Medicine Medical Oncology
DX: M89.9 Disorder of bone, unspecified (principal)
CPT/HCPCS: 78306; A9503

== ENCOUNTER 2023-10-15 22:40 | Emergency (ER) | payer OTHER, SELFPAY ==
--- NOTE | ~2023-10-15 | XR_ITS ---
EXAMINATION: XR CHEST CLINICAL INFORMATION: Cough. COMPARISON: 05/19/2021. TECHNIQUE: Frontal view of the chest was obtained. FINDINGS: No significant abnormality is noted involving the heart, lungs, mediastinum, bony thorax or soft tissues. XR/XR chest 1V IMPRESSION: No active cardiopulmonary disease.
--- NOTE | 2023-10-15 22:51 | ECG_ITS ---
Test Reason : TACHYCARDIA Blood Pressure : / mmHG Vent. Rate : 117 BPM Atrial Rate : 117 BPM P-R Int : 150 ms QRS Dur : 104 ms QT Int : 342 ms P-R-T Axes : 045 021 -26 degrees QTc Int : [address] & T wave abnormality, consider inferior ischemia Abnormal ECG When compared with ECG of 14-MAY-2021 14:07, Heart rate has decreased Referred By: Margarita Covarrubias Electronically Signed By:NIURKA CASTRO MD
[2023-10-15 22:53] LABS: Glucose, Whole Blood 173 mg/dL (60-115)
[2023-10-15 22:59] VITALS: BP 122/56; PULSE 114; RESP 15; TEMP 37.6; O2SAT 93
[2023-10-15 23:05] VITALS: BP 122/56; BP 123/70; PULSE 114; PULSE 120; RESP 16; TEMP 37.6; O2SAT 93; O2SAT 98; BMI 24.3
[2023-10-15 23:20] LABS: Basophils Percent Auto 0.2 % (0-2); Eosinophils Absolute Auto 0.1 X10*3/uL (0.0-0.4); Eosinophils Percent Auto 0.9 % (0-4); Hematocrit 33.8 % (42.0-52.0); Hemoglobin 10.9 g/dl (14.0-18.0); Imm Gran Abs Auto 0.04 X10*3/uL (0.00-0.03); Imm Gran Pct Auto 0.4 % (0.0-0.4); Lymphocytes Absolute Auto 0.5 X10*3/uL (1.2-4.9); Lymphocytes Percent Auto 4.6 % (20-40); MANUAL DIFF FLAG SCAN; Mean Corpuscular HGB Conc 32.2 g/dl (31.0-36.0); Mean Corpuscular Hemoglobin 30.4 pg (27.0-33.0); Mean Corpuscular Volume 94.2 fL (80.0-98.0); Mean Platelet Volume 8.8 fL (9.4-12.4); Monocytes Absolute Auto 0.2 X10*3/uL (0.1-1.2); Monocytes Percent Auto 2.4 % (2-11); Neutrophils Absolute Auto 9.3 x10*3/uL (2.0-8.3); Neutrophils Percent Auto 91.5 % (45-73); Platelet Count 216 X10*3/uL (160-400); Red Blood Count 3.59 X10*6/uL (4.60-5.80); Red Cell Distribution Width 17.5 % (11.0-16.0); SCAN SMEAR FLAG 1; White Blood Count 10.1 X10*3/uL (4.8-10.8)
[2023-10-15 23:33] LABS: INTERNATIONAL NORM RATIO 0.9 (0.9-1.1); Prothrombin Time 11.4 SEC (11.1-13.3)
[2023-10-15 23:37] LABS: Lactic Acid 2.6 mmol/L (0.5-2.0)
[2023-10-15 23:38] LABS: Alanine Aminotransferase 18 U/L (0-40); Albumin Level 3.5 g/dL (3.5-5.0); Alkaline Phosphatase 96 U/L (39-117); Anion Gap 13 (12-20); Aspartate Amino Transferase 20 U/L (5-37); Bilirubin Total 0.9 mg/dL (0.0-1.0); Blood Urea Nitrogen 11 mg/dL (9-16); Calcium 8.5 mg/dL (8.4-10.2); Carbon Dioxide 23 mmol/L (22-29); Chloride 103 mmol/L (96-108); Creatinine Clr Calc Pharmacy 89.9; Estimated Glomerular Filt Rate > 60; Glucose Random 183 mg/dL (60-115); Potassium 3.8 mmol/L (3.3-5.1); Sodium 135 mmol/L (135-145); Total Protein 6.6 g/dL (6.5-8.0)
[2023-10-15 23:44] LABS: SLIDE REVIEW VERIFIED; Troponin-I High Sensitivity 30.5 ng/L (<3.5-35.0)
[2023-10-15] MEDS: cefTRIAXone sodium 2 GM in 0.9 % Sodium Chloride 50 ML IV (23:46)
[2023-10-15] MEDS: 0.9 % Sodium Chloride 1,000 ML 999 ML IV (23:46)
--- NOTE | 2023-10-15 23:46 | PC.NURSE ---
Labs drawn and collected, Medicated per Mar, pt reposition for comfort, UA collected and sent.
--- NOTE | 2023-10-15 23:49 | ED.GENADULT ---
HPI - General Adult General Chief complaint: General Medical Stated complaint: FEVER, ?SEPSIS? Time Seen by Provider: 10/15/23 22:50 Source: patient Mode of arrival: EMS History of Present Illness HPI narrative: 78-year-old male arrives via ambulance and reports some nausea without vomiting, he is status post COVID vaccine booster but he was noted to start running a fever and being tachycardic. He was given 4 mg of Zofran. Patient's history is significant for MS. Related Data Home Medications Medication Instructions Recorded Confirmed bisacodyl 10 mg rectal suppository [address] DAILY 10/09/20 08/09/21 gabapentin 300 mg capsule 300 mg PO BID@0630,1200 10/09/20 08/09/21 metformin 500 mg tablet 500 mg PO BID 10/09/20 08/09/21 tramadol 50 mg tablet 50 mg PO BID PRN Pain 10/09/20 08/09/21 trazodone 50 mg tablet 25 mg PO BEDTIME 10/09/20 08/09/21 acetaminophen 325 mg tablet 650 mg PO Q4H PRN pain or fever 03/13/21 08/09/21 amlodipine 2.5 mg tablet 7.5 mg PO DAILY 03/13/21 08/09/21 aspirin 81 mg chewable tablet 81 mg PO DAILY 03/13/21 08/09/21 gabapentin 600 mg tablet 800 mg PO BEDTIME 03/13/21 08/09/21 insulin lispro 100 unit/mL 100 sliding scale dose subcut 03/13/21 08/09/21 subcutaneous solution (Humalog QIDACHS U-100 Insulin) niacinamide 500 mg tablet 500 mg PO TID 03/13/21 08/09/21 rosuvastatin 10 mg tablet 10 mg PO DAILY 03/13/21 08/09/21 aluminum-mag hydroxide-simethicone 30 ml PO Q6H PRN Nausea 04/20/21 08/09/21 225 mg-200 mg-25 mg/5 mL oral susp nystatin-triamcinolone 100,000 1 appl topical TID 04/20/21 08/09/21 unit/g-0.1 % topical cream guaifenesin 100 mg/5 mL oral 200 mg PO Q4H PRN Cough 05/19/21 08/09/21 liquid (Diabetic Tussin EX) prednisone 2.5 mg tablet 2.5 mg PO DAILY 05/19/21 08/09/21 Previous Rx's Medication Instructions Recorded citalopram 20 mg tablet 10 mg (1/2 x 20 mg) PO DAILY #0 10/11/20 tabs insulin detemir U-100 100 unit/mL 10 unit (0.1 mL) subcut BEDTIME #0 10/11/20 subcutaneous solution (Levemir mL U-100 Insulin) baclofen 20 mg tablet 20 mg PO TID #0 tabs 10/12/20 ascorbic acid (vitamin C) 1,000 mg 1 g PO DAILY 90 days #90 tabs 04/11/21 tablet cefdinir 300 mg capsule 300 mg PO BID #6 caps 05/23/21 cefdinir 300 mg capsule 300 mg PO BID 10 days #20 caps 10/16/23 Allergies Allergy/AdvReac Type Severity Reaction Status Date / Time Benzodiazepines Allergy Unknown UNKNOWN Verified 04/11/21 09:47 [BENZODIAZEPINES] dalfampridine [From AMPYRA] Allergy Unknown UNKNOWN Verified 04/11/21 09:47 duloxetine [From CYMBALTA] Allergy Unknown UNKNOWN Verified 04/11/21 09:47 ezetimibe [From ZETIA] Allergy Unknown UNKNOWN Verified 04/11/21 09:47 niacin [NIACIN] Allergy Unknown UNKNOWN Verified 04/11/21 09:47 pravastatin [PRAVASTATIN] Allergy Unknown UNKNOWN Verified 04/11/21 09:47 Jznjiyo-ZOE-KrN Reductase Allergy Unknown UNKNOWN Verified 04/11/21 09:47 Inhibitor [LAAZRKG-[id number]-AMR REDUCTASE INHIBITOR] lorazepam [From ATIVAN] AdvReac Severe EXCESSIVE Verified 04/11/21 09:47 SEDATION doxycycline [DOXYCYCLINE] AdvReac Mild esophogeal Verified 04/11/21 09:47 iritation methylprednisolone AdvReac Mild heartburn Verified 04/11/21 09:47 [From SOLU-MEDROL] ertapenem [From INVANZ] AdvReac Unknown possible Verified 04/11/21 09:47 cause of bullous pemphigoid Review of Systems Review of Systems: Pertinent positives and negatives as stated in [facility] Past Medical History Source: nursing notes reviewed Medical History Decubitus ulcer of coccygeal region, stage 2 Acute hypotension Sepsis Aspiration pneumonitis Recurrent UTI (urinary tract infection) Hypotonic neurogenic bladder Lytic lesion of bone on x-ray Wound of foot Anemia Septic shock Shoulder pain Constipation Hematuria Multiple sclerosis Depression Diabetes mellitus type 2 in obese Chronic pain syndrome BPH (benign prostatic hyperplasia) Dehydration Chronic renal failure Urinary tract infection Surgical History Hx of removal of cyst Family History Family History Family/Other Heart attack Father Diabetes Social History Social History Household Members: Other Household Members Other:: lives in detention Housing: Sn[facility] Housing Other:: [employer] Do you presently have visiting nurse or other home services: No Unable to assess alcohol history related to: Unable to respond Alcohol intake: never Patient Tobacco Use Status: Tobacco use Unknown Cigarette Packs Per Day: 1 Advance Directives: Yes Advance Directives on File: Yes Advance Directives Date on File: 10/13/20 service: Yes Current occupational status: retired Physical Exam ED Vital Signs: Vital Signs - 24 hr 10/15/23 22:59 10/15/23 23:05 10/16/23 00:49 Temperature 99.7 F 99.7 F 99.9 F Pulse Rate 114 H 114 H 98 Respiratory Rate 15 16 14 Blood Pressure 122/56 L 122/56 L 107/55 L Pulse Oximetry 93 93 95 Oxygen Delivery Method Room Air Room Air Room Air 10/16/23 02:44 Temperature 97.8 F Pulse Rate 98 Respiratory Rate 15 Blood Pressure 120/63 Pulse Oximetry 96 Oxygen Delivery Method Room Air BMI result Body Mass Index 24.3 VITAL SIGNS: Reviewed. GENERAL: Well nourished, in no acute distress. HEAD: Normocephalic/atraumatic EYES: PERRLA, EOMI EARS: Ext canals without abnormality NOSE: Nares patent bilateral OROPHARYNX: no oral lesions noted, posterior pharynx clear NECK: Supple, no adenopathy LUNGS: Normal breath sounds. No adventitious sounds or accessory muscle use. SpO2<93> CARDIOVASCULAR: Regular rate and rhythm without noted murmurs, no JVD or lower extremity edema. ABDOMEN: Soft, non-tender, non-distended with bowel sounds. MUSCULOSKELETAL: No tenderness, deformities, or effusions noted on gross inspection, bilateral lower extremities head to have multiple areas of eschars to bilateral feet but they do not appear to be infected her bilateral onychomycosis. EXTREMITIES: No cyanosis, clubbing or edema. SKIN: Inspection of the skin reveals no rashes NEUROLOGIC: Alert and oriented x 3. Medications Administered Discontinued Medications Generic Name Dose Route Start Last Admin Trade Name Millerq PRN Reason Stop Dose Admin Sodium Chloride 1,000 mls @ 999 mls/hr 10/15/23 23:30 10/16/23 01:37 Ns IV 10/16/23 00:30 Infused .Q1H1M [facility] Infusion Ceftriaxone Sodium 2 gm/ 50 mls @ 100 mls/hr 10/15/23 23:28 10/16/23 01:37 Sodium Chloride IV 10/15/23 23:57 Infused ONCE ONE Infusion Medical Decision Making Medical Decision Making [facility] Narrative: 78-year-old male with history and clinical presentation, DDX: COVID-19 vaccine side effects, but given that patient has lower abdominal/ suprapubic discomfort with cloudy appearance of urine high suspicion for urinary tract infection/ cystitis. I reviewed all investigations and hematologic indices are negative for leukocytosis there is a noted left shift and a stable normocytic anemia and no thrombocytopenia. Coagulation studies are within normal limits. Chemistry indices are without evidence of EDWARD and there are no electrolyte or liver enzyme derangements. I sensitivity troponin is detectable and chronically elevated. Patient has no complaints of chest pain. Urinalysis is significant for bacteria and numerous wbc's and although there is a possibility of colonization in the patient's symptoms are entirely attributable to side effects from the recent vaccination will empirically treat with antibiotics and IV fluids and request that the facility follow-up on the urine culture results and take the appropriate action with either stopping the antibiotics or completing the course. Viral testing is negative for influenza/ RSV/COVID. Repeat lactic acid has completely resolved, chest x-ray negative for infiltrate and otherwise my interpretation is in agreement with radiology's impression. Differential Diagnosis Differential Diagnoses: The differential diagnosis associated with the presentation includes Please see the discussion above Admission/Observation Consideration of admission/observation: Escalation of care including admission/observation considered please see the discussion above Lab Data [facility] Lab Attestation statement: I reviewed the patient's lab results. Please see the discussion above 10/15/23 23:09 10/15/23 23:09 Labs: Lab Results 10/15/23 10/15/23 10/15/23 Range/Units 22:49 23:09 23:10 WBC 10.1 (4.8-10.8) X10*3/uL RBC 3.59 L (4.60-5.80) X10*6/uL Hgb 10.9 L (14.0-18.0) g/dl Hct 33.8 L (42.0-52.0) % MCV 94.2 (80.0-98.0) fL MCH 30.4 (27.0-33.0) pg MCHC 32.2 (31.0-36.0) g/dl RDW 17.5 H (11.0-16.0) % Plt Count 216 (160-400) X10*3/uL MPV 8.8 L (9.4-12.4) fL Immature Gran % (Auto) 0.4 (0.0-0.4) % Neut % (Auto) 91.5 H (45-73) % Lymph % (Auto) 4.6 L (20-40) % [place] % (Auto) 2.4 (2-11) % Eos % (Auto) 0.9 (0-4) % Baso % (Auto) 0.2 (0-2) % Lymph # (Auto) 0.5 L (1.2-4.9) X10*3/uL Independence # (Auto) 0.2 (0.1-1.2) X10*3/uL Eos # (Auto) 0.1 (0.0-0.4) X10*3/uL Baso # (Auto) 0.0 (0.0-0.2) X10*3/uL Abs Immat Gran (auto) 0.04 H (0.00-0.03) X10*3/uL Absolute Neuts (auto) 9.3 H (2.0-8.3) x10*3/uL Absolute Nucleated RBC 0.000 (0.0-0.012) X10*3/uL Nucleated RBC % (auto) 0.0 (0.0-0.2) /100WBC Smear Tech's Comments VERIFIED PT 11.4 (11.1-13.3) SEC INR 0.9 (0.9-1.1) Sodium 135 (135-145) mmol/L Potassium 3.8 (3.3-5.1) mmol/L Chloride 103 (96-108) mmol/L Carbon Dioxide 23 (22-29) mmol/L Anion Gap 13 (12-20) BUN 11 (9-16) mg/dL Creatinine 0.79 (0.5-1.4) mg/dL Estim Creat Clear Calc 89.9 Estimated GFR > 60 POC Glucose 173 H (60-115) mg/dL Random Glucose 183 H (60-115) mg/dL Lactic Acid 2.6 H* (0.5-2.0) mmol/L Lactic Acid F/U @ 2Hr (0.5-2.0) mmol/L Calcium 8.5 D (8.4-10.2) mg/dL Total Bilirubin 0.9 (0.0-1.0) mg/dL AST 20 (5-37) U/L ALT 18 (0-40) U/L Alkaline Phosphatase 96 (39-117) U/L Troponin I High Sens 30.5 (<3.5-35.0) ng/L Total Protein 6.6 (6.5-8.0) g/dL Albumin 3.5 (3.5-5.0) g/dL Urine Color Urine Appearance Urine pH (5.0-9.0) Ur Specific Sherman (1.005-1.025) Urine Protein (Neg-Trace) mg/dL Urine Glucose (UA) (Negative) mg/dL Urine Ketones (Negative) mg/dL Urine Blood (Negative) Urine Nitrite (Negative) Ur Leukocyte Esterase (Negative) Urine RBC (0-2) /HPF Urine WBC (0-5) /HPF Ur Squamous Epith Cells (0-2) /HPF Urine Bacteria (None Seen) Hyaline Casts (0-2) /LPF Influenza Type A (PCR) (Negative) Influenza Type B (PCR) (Negative) RSV RNA Qual (PCR) (Negative) SARS-CoV-2 RNA (RT-PCR) (Negative) 10/15/23 10/16/23 10/16/23 Range/Units 23:48 00:48 01:53 WBC (4.8-10.8) X10*3/uL RBC (4.60-5.80) X10*6/uL Hgb (14.0-18.0) g/dl Hct (42.0-52.0) % MCV (80.0-98.0) fL MCH (27.0-33.0) pg MCHC (31.0-36.0) g/dl RDW (11.0-16.0) % Plt Count (160-400) X10*3/uL MPV (9.4-12.4) fL Immature Gran % (Auto) (0.0-0.4) % Neut % (Auto) (45-73) % Lymph % (Auto) (20-40) % Independence % (Auto) (2-11) % Eos % (Auto) (0-4) % Baso % (Auto) (0-2) % Lymph # (Auto) (1.2-4.9) X10*3/uL [place] # (Auto) (0.1-1.2) X10*3/uL Eos # (Auto) (0.0-0.4) X10*3/uL Baso # (Auto) (0.0-0.2) X10*3/uL Abs Immat Gran (auto) (0.00-0.03) X10*3/uL Absolute Neuts (auto) (2.0-8.3) x10*3/uL Absolute Nucleated RBC (0.0-0.012) X10*3/uL Nucleated RBC % (auto) (0.0-0.2) /100WBC Smear Tech's Comments PT (11.1-13.3) SEC INR (0.9-1.1) Sodium (135-145) mmol/L Potassium (3.3-5.1) mmol/L Chloride (96-108) mmol/L Carbon Dioxide (22-29) mmol/L Anion Gap (12-20) BUN (9-16) mg/dL Creatinine (0.5-1.4) mg/dL Estim Creat Clear Calc Estimated GFR POC Glucose (60-115) mg/dL Random Glucose (60-115) mg/dL Lactic Acid (0.5-2.0) mmol/L Lactic Acid F/U @ 2Hr 1.7 (0.5-2.0) mmol/L Calcium (8.4-10.2) mg/dL Total Bilirubin (0.0-1.0) mg/dL AST (5-37) U/L ALT (0-40) U/L Alkaline Phosphatase (39-117) U/L Troponin I High Sens (<3.5-35.0) ng/L Total Protein (6.5-8.0) g/dL Albumin (3.5-5.0) g/dL Urine Color Yellow Urine Appearance Turbid Urine pH 5.5 (5.0-9.0) Ur Specific Sherman 1.015 (1.005-1.025) Urine Protein 300 (3+) H (Neg-Trace) mg/dL Urine Glucose (UA) Negative (Negative) mg/dL Urine Ketones Negative (Negative) mg/dL Urine Blood Small (1+) H (Negative) Urine Nitrite Negative (Negative) Ur Leukocyte Esterase Moderate (2+) H (Negative) Urine RBC 3-5 H (0-2) /HPF Urine WBC >50 H (0-5) /HPF Ur Squamous Epith Cells 0-2 (0-2) /HPF Urine Bacteria 4+ (None Seen) Hyaline Casts 0-2 (0-2) /LPF Influenza Type A (PCR) NEGATIVE (Negative) Influenza Type B (PCR) NEGATIVE (Negative) RSV RNA Qual (PCR) NEGATIVE (Negative) SARS-CoV-2 RNA (RT-PCR) NEGATIVE (Negative) Radiology Impression Discussion of test interpretation with radiology: I have reviewed the radiologist's reading. Radiologist Impression: please see the discussion above External Record Review External record reviewed: Outpatient record, Prior outpatient labs and Prior outpatient radiology Chronic Conditions Patient?s care impacted by: Diabetes and Hypertension Critical Care Time Critical Care Time Critical Care Time: Yes Total Critical Care Time: 45 Attestation: I personally attest to this time spent taking care of the patient. Discharge Plan Discharge Clinical Impression: Catheter-associated urinary tract infection Patient Disposition: Xfer Other Instructions: Catheter-associated Urinary Tract Infection (ED) Additional Instructions: 1. Resume all home medications as prescribed. 2. Complete the entire course of antibiotics as prescribed, please follow-up on the urine culture for this patient and take the appropriate action regarding the antibiotics. 3. I do suspect that there may be a component vaccine related side effects in the form of patient's fevers. 4. Patient should follow-up with the supervising doctor. Return to the ER for any worsening symptoms. Prescriptions: New cefdinir 300 mg capsule 300 mg PO BID 10 Days Qty: 20 0RF No Action bisacodyl 10 mg Suppository [address] DAILY metformin 500 mg Tablet 500 mg PO BID Hold Instructions: Resume on 03/25/21. Re-check renal function prior to restarting Metformin gabapentin 300 mg Capsule 300 mg PO BID@0630,1200 trazodone 50 mg Tablet 25 mg PO BEDTIME tramadol 50 mg Tablet 50 mg PO BID PRN (Reason: Pain) Levemir U-100 Insulin 100 unit/mL Solution 10 unit SUBCUT BEDTIME Qty: 0 0RF citalopram 20 mg Tablet 10 mg PO DAILY Qty: 0 0RF baclofen 20 mg Tablet 20 mg PO TID Qty: 0 0RF acetaminophen 325 mg Tablet 650 mg PO Q4H PRN (Reason: pain or fever) Rx Instructions: pain or fever gabapentin 600 mg Tablet 800 mg PO BEDTIME amlodipine 2.5 mg Tablet 7.5 mg PO DAILY niacinamide 500 mg Tablet 500 mg PO TID aspirin 81 mg Tablet,Chewable 81 mg PO DAILY rosuvastatin 10 mg Tablet 10 mg PO DAILY insulin lispro [Humalog U-100 Insulin] 100 unit/mL Solution 100 sliding scale dose subcut QIDACHS Protocol: Insulin Correction Scale Less than or equal to 110 ---- Give (units): 0 111 to 150 Give (units): 0 151 to 200 Give (units): 2 201 to 250 Give (units): 4 251 to 300 Give (units): 6 301 to 350 Give (units): 8 Greater than 350 Give (units): 10 Call MD if Blood Glucose > : 350 Rx Instructions: 150-199 6 UNITS, 200-249 8 UNITS, 250-299 10 UNITS, 300-349 12 UNITS, 350 - 399 14 UNITS, 400-449 16 UNITS, CALL MD IF 450 OR GREATER alum-mag hydroxide-simeth 225-200-25 mg/5 mL Suspension 30 ml PO Q6H PRN (Reason: Nausea) nystatin-triamcinolone 100,000-0.1 unit/g-% Cream 1 appl TOPICAL TID prednisone 2.5 mg Tablet 2.5 mg PO DAILY Rx Instructions: end date 05/22/21 guaifenesin [Diabetic Tussin EX] 100 mg/5 mL Liquid 200 mg PO Q4H PRN (Reason: Cough) cefdinir 300 mg capsule 300 mg PO BID Qty: 6 0RF ascorbic acid (vitamin C) 1,000 mg tablet 1 g PO DAILY 90 Days Qty: 90 1RF Referrals: Kathi Bell PA [Primary Care Provider] -
[2023-10-15 23:53] LABS: Appearance Urine Turbid; Color Urine Yellow; Glucose Urine UA Negative (Negative); Leukocyte Esterase Urine Moderate (2+) (Negative); Nitrite Urine Negative (Negative); PH 5.5 (5.0-9.0); Specific Gravity - Urine 1.015 (1.005-1.025); UMIC TRIGGER UACC YES; Urine Blood Small (1+) (Negative); Urine Ketones Negative (Negative); Urine Protein 300 (3+) mg/dL (Neg-Trace)
[2023-10-16 00:12] LABS: Bacteria Urine 4+ (None Seen); Hyaline Casts Urine 0-2 /LPF (0-2); Squamous Epithelial Cell Urine 0-2 /HPF (0-2); UACC Culture Trigger YES; WBC Urine >50 /HPF (0-5)
[2023-10-16 00:49] VITALS: BP 107/55; PULSE 98; RESP 14; TEMP 37.7; O2SAT 95
[2023-10-16 01:15] LABS: Reflex Lactate? Lactic Acid Added
[2023-10-16 01:32] LABS: Influenza A PCR NEGATIVE (Negative); Influenza B PCR NEGATIVE (Negative); Resp Syncy Virus RNA Qual PCR NEGATIVE (Negative); SARS COV2 PCR INHOUSE NEGATIVE (Negative)
[2023-10-16 02:10] LABS: ~Lactic Acid-LAB USE ONLY 1.7 mmol/L (0.5-2.0)
[2023-10-16 02:44] VITALS: BP 120/63; PULSE 98; RESP 15; TEMP 36.6; O2SAT 96
--- NOTE | 2023-10-16 04:35 | PC.NURSE ---
pt resting in bed no sign of distress, medicated per mar. pt repositioned for comfort. plan is to be discharged back to facility
--- NOTE | 2023-10-16 04:40 | PC.NURSE ---
Called report to facility to give report, facility awaiting arrival.
[2023-10-16 04:47] VITALS: BP 134/72; PULSE 86; RESP 14; TEMP 36.6; O2SAT 100
--- NOTE | 2023-10-16 04:50 | PC.NURSE ---
[facility] arrive to transport pt back to facility
== END 2023-10-16 04:52 ==
PROVIDERS: Emergency Provider Student in an Organized Health Care Education/Training Program; PCP Physician Assistant
DX: N39.0 Urinary tract infection, site not specified (principal); R50.9 Fever, unspecified; R00.0 Tachycardia, unspecified; R11.2 Nausea with vomiting, unspecified; R05.9 Cough, unspecified; F17.200 Nicotine dependence, unspecified, uncomplicated; Z79.899 Other long term (current) drug therapy; Z71.6 Tobacco abuse counseling; Z20.822 Contact with and (suspected) exposure to COVID-19; Z20.828 Contact with and (suspected) exposure to other viral communicable diseases
CPT/HCPCS: 0241U; 36415; 71045; 80053; 81001; 82947; 83605; 84484; 85025; 85610; 87040; 87086; 93005; 96365; 96366; 99285; J0696

== ENCOUNTER 2023-11-16 15:47 | Inpatient (IN) | payer OTHER, MEDICARE, SELFPAY ==
--- NOTE | ~2023-11-16 | CT_ITS ---
EXAMINATION: CT ANGIOGRAM HEAD CT ANGIOGRAM NECK CLINICAL INFORMATION: Reason for Exam stroke? COMPARISON: CT head 03/30/2021 TECHNIQUE: Test bolus sequences followed by intravenous administration 85 mL of Omnipaque 350. Helical imaging was performed in the axial plane from the aortic arch to the skull vertex. Delayed postcontrast imaging of the head was also performed. The data was processed at the manufacturing engineering technologist's workstation for generation of MIP sequences. Angled MIPs and volume rendered reformatted images were also generated at an offline 3D workstation. Stenoses are assessed in accordance with Vargas et al. Quantification of Carotid Stenosis on CT Angiography. AJR 2006. 27(1):13-19. [address] CT examination was performed using dose optimization techniques as appropriate, variously including the following: *Automated exposure control *Adjustment of mA and/or kV according to patient size (this includes techniques or standardized protocols for targeted exams where dose is matched to indication/reason for exam; i.e. extremities or head) *Use of iterative reconstruction technique DLP: 1550 mGy-cm FINDINGS: CT HEAD: Mild generalized parenchymal volume loss. Patchy periventricular and deep white matter hypoattenuation is nonspecific but most suggestive of moderate chronic microangiopathy is stable. No territorial loss of marr-white differentiation. No acute intracranial hemorrhage or extra-axial fluid collection. No mass lesion, significant mass effect, or herniation pattern. No pathologic intra-axial enhancement or regional oligemia. The orbits are grossly normal. Increased moderate left sphenoid sinus mucosal disease with sclerotic wall thickening on the basis of chronic sinusitis. Several retention cysts in the maxillary and right sphenoid sinuses. No mastoid effusion. Osseous structures are intact. Advanced left TMJ osteoarthrosis. CTA HEAD: Venous contamination limits assessment of the distal intracranial vasculature. No hemodynamically significant stenosis or occlusion in the anterior or posterior circulation. Trace calcific plaque along the carotid siphons with slight ectasia of the proximal right cavernous ICA but without significant stenosis. No aneurysms and no high flow vascular malformations. Timing of the contrast bolus allows assessment of the major dural venous sinuses, which all opacify normally CTA NECK: Two vessel branching pattern of the arch with left common carotid artery arising from the brachiocephalic trunk. Trace atherosclerosis of the aortic arch and great vessel origins. Origins of the great vessels are widely patent. Minimal predominantly fibrofatty plaque along the common carotid arteries without associated stenosis. Mild partially calcified atherosclerotic plaque at the carotid bifurcations without stenosis. Patent internal carotid arteries. Codominant vertebral arteries. The vertebral artery ostia are widely patent. Both vertebral arteries are widely patent throughout their extracranial cervical course. CT NECK: Scattered root canal changes, including a right mandibular molar with associated apical lucency. 9 mm inferior right thyroid nodule below size criteria for imaging follow-up. Mild biapical pleural parenchymal scarring. Centrilobular emphysema. Diffuse osseous demineralization and spondylitic changes of the cervical spine. Apparent at least moderate C4-C5 spinal canal stenosis with possible mass effect along the cord and multilevel high-grade neural foraminal narrowing. CT/CT angio head neck stroke IMPRESSION: 1. No acute intracranial findings. 2. No acute arterial occlusion or hemodynamically significant stenosis within the head or neck. 3. Diffuse osseous demineralization and cervical spondylosis with apparent at least moderate C4-C5 spinal canal stenosis with possible mass effect along the cord and multilevel high-grade neural foraminal narrowing. If there is referrable myelopathy/radiculopathy, further evaluation of these findings with dedicated cervical spine MRI may be performed as clinically warranted.
--- NOTE | ~2023-11-16 | CT_ITS ---
EXAMINATION: CT HEAD WITHOUT CONTRAST (STROKE PROTOCOL) CLINICAL INFORMATION: Stroke protocol. Confusion COMPARISON: CT brain 03/13/2021. TECHNIQUE: Contiguous axial imaging was performed from the skull base to vertex without intravenous administration of contrast. This CT examination was performed using dose optimization techniques as appropriate, variously including the following: *Automated exposure control *Adjustment of mA and/or kV according to patient size (this includes techniques or standardized protocols for targeted exams where dose is matched to indication/reason for exam; i.e. extremities or head) *Use of iterative reconstruction technique DLP: 7:15 mGy-cm FINDINGS: There is no acute intra-axial, extra-axial bleed, masses or midline shift. There is no acute infarction in evolution. There is diffuse periventrical hypodensities in both cerebral hemispheres without mass effect. The lateral ventricles are enlarged and so are the cortical sulci. Bone windows reveal no calvarial abnormality. There is no scalp soft tissue abnormality. Bilateral paranasal sinuses and mastoid air cells and unremarkable. CT/CT head for stroke IMPRESSION: No acute intracranial process seen. No major change compared to previous CT brain 03/13/2021. This critical result was discussed with Dwayne Marquez at 4:19 PM. It was ascertained that the content and urgency of the report was understood at the time of direct communication.
--- NOTE | ~2023-11-16 | XR_ITS ---
EXAMINATION: XR CHEST CLINICAL INFORMATION: Pneumonia? COMPARISON: 05/19/2021 and 10/15/2023 TECHNIQUE: Frontal view of the chest was obtained. FINDINGS: No acute pulmonary abnormality. Lungs are well expanded. There appears to be a chronic finding of opacity from mild atelectasis in the inferior ligula adjacent to the paracardiac fat pad. Cardiac silhouette has normal size and contour. Pulmonary vascular pattern is normal. No acute skeletal findings. XR/XR chest 1V IMPRESSION: No evidence of pneumonia. No acute cardiopulmonary abnormality compared to 10/15/2023.
--- NOTE | 2023-11-16 15:58 | ECG_ITS ---
Test Reason : STROKE Blood Pressure : / mmHG Vent. Rate : 083 BPM Atrial Rate : 083 BPM P-R Int : 168 ms QRS Dur : 114 ms QT Int : 398 ms P-R-T Axes : 043 021 -17 degrees QTc Int : 467 ms Normal sinus rhythm Nonspecific ST abnormality Abnormal ECG When compared with ECG of 15-OCT-2023 22:53, No significant change was found Referred By: Dwayne Marquez Electronically Signed By:Austen Castaneda
[2023-11-16 16:00] LABS: MANUAL DIFF FLAG NO; Prothrombin Time Whole Bld POC 12.2 sec (11.1-13.5)
--- NOTE | 2023-11-16 16:00 | ED.GENADULT ---
HPI - General Adult General Chief complaint: Altered Mental Status Stated complaint: stroke alertl side facial droop, left arm drifting Time Seen by Provider: 11/16/23 15:53 Source: patient, EMS and RN notes reviewed (Nurse from [facility]) Mode of arrival: ambulatory History of Present Illness HPI narrative: For 78-year-old male history of MS and diabetes presents to the ED for evaluation for lethargy and questionable confusion. Last known well 08:30am. Nurse states patient woke up complaining of lethargy and was confused around 08:30 stating he was being poisoned through veins. Patient made the same complaint around 1 p.m.. She denies any trauma fever or chills. Nurse states at baseline patient is non ambulatory due to MS weakness of extremites. Patient she presently is alert oriented x3. Last known well 08:30am Related Data Home Medications Medication Instructions Recorded Confirmed bisacodyl 10 mg rectal suppository 10 mg IA DAILY PRN Constipation 10/09/20 11/16/23 gabapentin 300 mg capsule 300 mg PO BID@0630,1200 10/09/20 11/16/23 metformin 500 mg tablet 500 mg PO BID 10/09/20 08/09/21 tramadol 50 mg tablet 50 mg PO BEDTIME Pain 10/09/20 11/16/23 trazodone 50 mg tablet 25 mg PO BEDTIME 10/09/20 08/09/21 acetaminophen 325 mg tablet 650 mg PO Q4H PRN Moderate Pain 03/13/21 11/16/23 (Scale Score 5-6) aspirin 81 mg chewable tablet 81 mg PO DAILY 03/13/21 11/16/23 insulin lispro 100 unit/mL 100 sliding scale dose subcut 03/13/21 08/09/21 subcutaneous solution (Humalog QIDACHS U-100 Insulin) niacinamide 500 mg tablet 500 mg PO TID 03/13/21 08/09/21 rosuvastatin 10 mg tablet 10 mg PO DAILY 03/13/21 11/16/23 nystatin-triamcinolone 100,000 1 appl topical TID 04/20/21 08/09/21 unit/g-0.1 % topical cream guaifenesin 100 mg/5 mL oral 200 mg PO Q4H PRN Cough 05/19/21 11/16/23 liquid (Diabetic Tussin EX) prednisone 2.5 mg tablet 2.5 mg PO DAILY 05/19/21 11/16/23 amlodipine 10 mg tablet 10 mg PO DAILY 11/16/23 11/16/23 bisacodyl 10 mg rectal suppository 10 mg IA DAILY PRN Constipation 11/16/23 11/16/23 (Dulcolax (bisacodyl)) bisacodyl 5 mg tablet,delayed 5 mg PO BEDTIME PRN Constipation 11/16/23 11/16/23 release bismuth subsalicylate 262 mg/15 mL 524 mg PO Q8H PRN UPSET 11/16/23 11/16/23 oral suspension (Pepto-Bismol) STOMACH/NAUSEA ceramides 1,3,6-II (CeraVe topical 1 appl topical BID PRN Dry Skin 11/16/23 11/16/23 cream) dextrose 40 % oral gel (Glucose 15 g PO Q15M PRN BG < 70 11/16/23 11/16/23 Gel) docusate sodium 100 mg capsule 100 mg PO BID 11/16/23 11/16/23 (Colace) dulaglutide 0.75 mg/0.5 mL 0.75 mg subcut QWEEK 11/16/23 11/16/23 subcutaneous pen injector (Trulicity) famotidine 20 mg tablet 20 mg PO BID 11/16/23 11/16/23 folic acid 1 mg tablet 1 mg PO SUTUWETHFRSA 11/16/23 11/16/23 gabapentin 800 mg tablet 800 mg PO BEDTIME 11/16/23 11/16/23 glucagon 1 mg solution for 1 mg subcut Q20M PRN IF BG < 70 11/16/23 11/16/23 injection (Glucagon Emergency Kit) insulin glargine-yfgn 100 unit/mL 5 unit subcut BEDTIME 11/16/23 11/16/23 subcutaneous solution lactulose 10 gram/15 mL oral 30 ml PO DAILY 11/16/23 11/16/23 solution (Enulose) lidocaine HCl 2 % mucosal solution 15 ml PO Q3H PRN MOUTH SORES 11/16/23 11/16/23 losartan 25 mg tablet 25 mg PO BEDTIME 11/16/23 11/16/23 melatonin 5 mg tablet 5 mg PO BEDTIME 11/16/23 11/16/23 metformin 500 mg tablet 500 mg PO BIDWM 11/16/23 11/16/23 ondansetron 4 mg disintegrating 4 mg PO Q8H PRN Nausea 11/16/23 11/16/23 tablet polyethylene glycol 3350 17 17 g PO DAILY 11/16/23 11/16/23 gram/dose oral powder (Miralax) sennosides 8.6 mg tablet (senna) 17.2 mg PO BEDTIME 11/16/23 11/16/23 sodium phosphates 19 gram-7 118 ml IA BEDTIME PRN Constipation 11/16/23 11/16/23 gram/118 mL enema (Fleet Enema) vitamin B12 0.5 mg-folic acid 1 mg 1 tab PO MO 11/16/23 11/16/23 tablet (MTX Support) zolpidem 6.25 mg tablet,extended 6.25 mg PO BEDTIME 11/16/23 11/16/23 release,multiphase Previous Rx's Medication Instructions Recorded insulin detemir U-100 100 unit/mL 10 unit (0.1 mL) subcut BEDTIME #0 10/11/20 subcutaneous solution (Levemir mL U-100 Insulin) baclofen 20 mg tablet 20 mg PO TID #0 tabs 10/12/20 Allergies Allergy/AdvReac Type Severity Reaction Status Date / Time Benzodiazepines Allergy Unknown UNKNOWN Verified 04/11/21 09:47 [BENZODIAZEPINES] dalfampridine [From AMPYRA] Allergy Unknown UNKNOWN Verified 04/11/21 09:47 duloxetine [From CYMBALTA] Allergy Unknown UNKNOWN Verified 04/11/21 09:47 ezetimibe [From ZETIA] Allergy Unknown UNKNOWN Verified 04/11/21 09:47 niacin [NIACIN] Allergy Unknown UNKNOWN Verified 04/11/21 09:47 pravastatin [PRAVASTATIN] Allergy Unknown UNKNOWN Verified 04/11/21 09:47 Skafmvs-YOX-BzP Reductase Allergy Unknown UNKNOWN Verified 04/11/21 09:47 Inhibitor [[id number] REDUCTASE INHIBITOR] lorazepam [From ATIVAN] AdvReac Severe EXCESSIVE Verified 04/11/21 09:47 SEDATION doxycycline [DOXYCYCLINE] AdvReac Mild esophogeal Verified 04/11/21 09:47 iritation methylprednisolone AdvReac Mild heartburn Verified 04/11/21 09:47 [From SOLU-MEDROL] ertapenem [From INVANZ] AdvReac Unknown possible Verified 04/11/21 09:47 cause of bullous pemphigoid Review of Systems Review of Systems: Confused and lethargic Yes all other systems are reviewed and are negative [facility] Past Medical History Medical History (Updated 11/17/23 @ 13:51 by Blaine Bull, DO) Decubitus ulcer of coccygeal region, stage 2 Acute hypotension Sepsis Aspiration pneumonitis Recurrent UTI (urinary tract infection) Hypotonic neurogenic bladder Lytic lesion of bone on x-ray Wound of foot Anemia Septic shock Shoulder pain Constipation Hematuria Multiple sclerosis Depression Diabetes mellitus type 2 in obese Chronic pain syndrome BPH (benign prostatic hyperplasia) Dehydration Chronic renal failure Urinary tract infection Surgical History Hx of removal of cyst Family History Family History Family/Other Heart attack Father Diabetes Social History Social History Household Members: Other Household Members Other:: lives at [facility] Housing: Detention Housing Other:: [facility] Do you presently have visiting nurse or other home services: No Unable to assess alcohol history related to: Unable to respond Alcohol intake: never Comment: pt sedated on vent. Patient Tobacco Use Status: Former Tobacco user Cigarette Packs Per Day: 1 Advance Directives Date on File: 10/13/20 service: Yes Current occupational status: retired Physical Exam ED Vital Signs: Vital Signs - 24 hr 11/16/23 16:27 11/16/23 18:09 Temperature 97.9 F Pulse Rate 88 83 Respiratory Rate 15 12 Blood Pressure 138/60 132/62 Pulse Oximetry 96 97 Oxygen Delivery Method Room Air Room Air BMI result Body Mass Index 23.4 Const General: cooperative, healthy appearing, comfortable, no acute distress, well developed, alert, awake and Physically active Orientation/consciousness: patient oriented x3 HENMT Other: Questionable slight left facial droop. Head: Yes normal to inspection, Yes No palpable skull fracture present, Yes normocephalic, Yes atraumatic and No abrasion Eyes General: appearance normal, both eyes and all related structures Neck Neck: Yes normal visual inspection, Yes full ROM, Yes no lymphadenopathy, Yes no meningeal signs, Yes trachea midline, Yes supple, No anterior neck swelling and No tender Chest Chest palpation & inspection: normal inspection of the chest and normal palpation of entire chest wall Resp Effort & Inspection: normal respiratory effort and able to speak in complete sentences Auscultation: clear to auscultation bilaterally Cardio Jugular venous distension: no JVD Heart sounds: S1 normal heart sound present and S2 normal heart sound present GI Inspection: Yes normal to inspection and No abdominal wall ecchymosis Palpation (GI): Soft to palpation, not firm, nontender, no guarding and not rigid General: No CVA tenderness and Yes no CVA tenderness Back/Spine/Pelvis Back: no CVA tenderness, No CVA tenderness and No back tenderness Skin General skin exam: no rashes or lesions noted and elasticity normal Neuro Other: Patient presently is alert oriented x3. Questionable slight left-sided facial droop. Slight left pronator drift. Extremities upper equal strength. Lower extremity chronic weakness. Patient visual feels all intact General: patient oriented x3, moves all extremities, Normal light touch and pain sensation, no meningeal signs, no focal motor deficits, CN's II-XI intact bilaterally and normal sensation to monofilament Extrem General: Yes normal to inspection Psych Appearance: grossly normal, well kempt and not disheveled NIH Stroke Scale Internal: Initial- Upon Arrival Level of Consciousness: Alert Level of Consciousness Questions: Answers both questions correctly Level of Consciousness Commands: Performs both tasks correctly Best Gaze: Normal Visual: No visual loss Facial Palsy: Minor paralyis (mild left facial droop) Motor Arm (Right): No drift Motor Arm (Left): Drift (slight) Motor Leg (Right): No drift Motor Leg (Left): No drift Limb Ataxia: Absent Sensory: Normal Best Language: No aphasia Dysarthia: Normal Extinction and Inattention: No abnormality Score: 2 Medications Administered Generic Name Dose Route Start Last Admin Trade Name Freq PRN Reason Stop Dose Admin Amlodipine Besylate 10 mg 11/17/23 09:00 11/17/23 08:59 Amlodipine Besylate 10 Mg Tablet PO 10 mg DAILY WICHO Administration Protocol Aspirin 81 mg 11/17/23 09:00 11/17/23 08:59 Aspirin 81 Mg Tab.Chew PO 81 mg DAILY WICHO Administration Atorvastatin Calcium 40 mg 11/17/23 09:00 11/17/23 08:59 Atorvastatin Calcium 40 Mg Tablet PO 40 mg DAILY WICHO Administration Enoxaparin Sodium 40 mg 11/16/23 19:00 11/16/23 18:33 Enoxaparin Sodium 40 Mg/0.4 Ml Syringe SUBCUT 40 mg Q24H WICHO Administration Famotidine 20 mg 11/17/23 09:00 11/17/23 08:59 Famotidine 20 Mg Tablet PO 20 mg BID WICHO Administration Gabapentin 300 mg 11/17/23 12:00 11/17/23 11:42 Gabapentin 300 Mg Capsule PO 300 mg BID@0630,1200 WICHO Administration Insulin Human Lispro 0 unit 11/16/23 21:00 11/17/23 11:28 Insulin Lispro 100 Unit/Ml 3 Ml Vial SUBCUT Not Given [facility] Protocol Lactulose 20 gm 11/17/23 09:00 11/17/23 08:59 Lactulose 20 Gm/30 Ml Solution PO 20 gm DAILY WICHO Administration Melatonin 6 mg 11/16/23 18:13 11/17/23 02:34 Melatonin 3 Mg Tablet PO 6 mg BEDTIME PRN Administration Insomnia Polyethylene Glycol 17 gm 11/17/23 09:00 11/17/23 08:59 Polyethylene Glycol 3350 17 Gm Powd.Pack PO 17 gm DAILY WICHO Administration Prednisone 2.5 mg 11/17/23 09:00 11/17/23 08:59 Prednisone 2.5 Mg Tablet PO 2.5 mg DAILY WICHO Administration Sodium Chloride 3 ml 11/17/23 00:00 11/17/23 07:21 0.9 % Sodium Chloride Flush 3 Ml Syringe IVFLUSH 3 ml QSHIFT WICHO Administration Discontinued Medications Generic Name Dose Route Start Last Admin Trade Name Freq PRN Reason Stop Dose Admin Ceftriaxone Sodium 1 gm/ 50 mls @ 100 mls/hr 11/16/23 17:15 11/16/23 18:30 Sodium Chloride IV 11/16/23 17:44 Infused ONCE ONE Infusion Iohexol 70 ml 11/16/23 16:12 11/16/23 16:13 Iohexol 350 Mg/Ml 100 Ml Infus..Btl IV 11/16/23 16:13 70 ml ONCE ONE Administration Medical Decision Making Medical Decision Making MDM Narrative: 78-year-old male with pmh of MS and diabetes presents to the ED for possible questionable stroke. Patient brought in for increasing confusion since 08:30am and complaining of weakness/lethargy. Patient presently alert oriented x3. Initial presention and evaluation done with Dr. Fitzgerald. Patient has has questional minimal facial droop and mild left pronator drift. No obvious focal neuro deficits. Lower extremity weakness chronic due to MS. Patient does not ambulate at baseline. And CT head CTA scan ordered. Patient out the window for tPA. No need to call Urology As per nurse who I spoke with at facility last known well was 8:30am. UA ordered. 4:20pm Radiologist Called and stated negative dry head CT scan. 4:53: Radiologist Pindall states negative neck and head CTA. 5:30PM: Positive for UTI. Started on antibiotics. Patient re-evaluated. Not notice any facial droop. Complete range of motion of upper extremities. I do not see a pronator drift. Patient admitted to hospitalist case discussed with Dr. Schroeder. Cervical spine CT scan shows mass effect on the spinal cord. Presently negative for any signs of myelopathy. Patient has complete range of motion of upper extremities. Differential Diagnosis Differential Diagnoses: The differential diagnosis associated with the presentation includes (stroke, brain bleed, pneumonia, UTI) Admission/Observation Consideration of admission/observation: Escalation of care including admission/observation considered Consult Healthcare Provider Management of the patient was discussed with: Hospitalist (Dr. Schroeder) Lab Data MDM Lab Attestation statement: I reviewed the patient's lab results. 11/16/23 15:55 11/16/23 16:42 Labs: Lab Results 11/16/23 11/16/23 11/16/23 Range/Units 15:52 15:55 16:42 WBC 5.4 (4.8-10.8) X10*3/uL RBC 3.65 L (4.60-5.80) X10*6/uL Hgb 11.2 L (14.0-18.0) g/dl Hct 35.2 L (42.0-52.0) % MCV 96.4 (80.0-98.0) fL MCH 30.7 (27.0-33.0) pg MCHC 31.8 (31.0-36.0) g/dl RDW 17.7 H (11.0-16.0) % Plt Count 271 D (160-400) X10*3/uL MPV 9.5 (9.4-12.4) fL Immature Gran % (Auto) 0.7 H (0.0-0.4) % Neut % (Auto) 71.8 (45-73) % Lymph % (Auto) 14.0 L (20-40) % Marion % (Auto) 9.6 (2-11) % Eos % (Auto) 3.7 (0-4) % Baso % (Auto) 0.2 (0-2) % Lymph # (Auto) 0.8 L (1.2-4.9) X10*3/uL Marion # (Auto) 0.5 (0.1-1.2) X10*3/uL Eos # (Auto) 0.2 (0.0-0.4) X10*3/uL Baso # (Auto) 0.0 (0.0-0.2) X10*3/uL Abs Immat Gran (auto) 0.04 H (0.00-0.03) X10*3/uL Absolute Neuts (auto) 3.9 (2.0-8.3) x10*3/uL Absolute Nucleated RBC 0.000 (0.0-0.012) X10*3/uL Nucleated RBC % (auto) 0.0 (0.0-0.2) /100WBC PT 11.1 11.4 (11.1-13.3) SEC Whole Blood PT 12.2 (11.1-13.5) sec INR 0.9 0.9 (0.9-1.1) Whole Blood INR 1.0 (0.9-1.1) APTT 32.3 31.9 (26.0-36.4) SEC Sodium 141 139 (135-145) mmol/L Potassium 4.4 4.1 (3.3-5.1) mmol/L Chloride 106 104 (96-108) mmol/L Carbon Dioxide 22 24 (22-29) mmol/L Anion Gap 17 15 (12-20) BUN 16 16 (9-16) mg/dL Creatinine 1.21 1.13 (0.5-1.4) mg/dL Estim Creat Clear Calc 57.0 61.0 Estimated GFR 58 > 60 POC Glucose 122 H (60-115) mg/dL Random Glucose 133 H 131 H (60-115) mg/dL Lactic Acid (0.5-2.0) mmol/L Calcium 9.6 D 9.2 (8.4-10.2) mg/dL Total Bilirubin 0.6 (0.0-1.0) mg/dL AST 18 (5-37) U/L ALT 13 (0-40) U/L Alkaline Phosphatase 101 (39-117) U/L Total Creatine Kinase 12 L (38-174) U/L Troponin I High Sens < 2.7 D (<3.5-35.0) ng/L Total Protein 7.4 (6.5-8.0) g/dL Albumin 3.8 (3.5-5.0) g/dL Urine Color Yellow Urine Appearance Hazy Urine pH 7.5 (5.0-9.0) Ur Specific Joffre 1.010 (1.005-1.025) Urine Protein 100 (2+) H (Neg-Trace) mg/dL Urine Glucose (UA) Negative (Negative) mg/dL Urine Ketones Negative (Negative) mg/dL Urine Blood Trace (Negative) Urine Nitrite Negative (Negative) Ur Leukocyte Esterase Large (3+) H (Negative) Urine RBC 0-2 (0-2) /HPF Urine WBC >50 H (0-5) /HPF Ur Squamous Epith Cells 0-2 (0-2) /HPF Urine Bacteria 4+ (None Seen) Hyaline Casts 0-2 (0-2) /LPF Urine Opiates Screen Not Detected (Not Detect) Urine Fentanyl Screen Not Detected (Not Detect) Ur Barbiturates Screen Not Detected (Not Detect) Ur Phencyclidine Scrn Not Detected (Not Detect) Ur Amphetamines Screen Not Detected (Not Detect) U Benzodiazepines Scrn Not Detected (Not Detect) Urine Cocaine Screen Not Detected (Not Detect) U Marijuana (THC) Screen Not Detected (Not Detect) 11/16/23 Range/Units 17:33 WBC (4.8-10.8) X10*3/uL RBC (4.60-5.80) X10*6/uL Hgb (14.0-18.0) g/dl Hct (42.0-52.0) % MCV (80.0-98.0) fL MCH (27.0-33.0) pg MCHC (31.0-36.0) g/dl RDW (11.0-16.0) % Plt Count (160-400) X10*3/uL MPV (9.4-12.4) fL Immature Gran % (Auto) (0.0-0.4) % Neut % (Auto) (45-73) % Lymph % (Auto) (20-40) % Marion % (Auto) (2-11) % Eos % (Auto) (0-4) % Baso % (Auto) (0-2) % Lymph # (Auto) (1.2-4.9) X10*3/uL Marion # (Auto) (0.1-1.2) X10*3/uL Eos # (Auto) (0.0-0.4) X10*3/uL Baso # (Auto) (0.0-0.2) X10*3/uL Abs Immat Gran (auto) (0.00-0.03) X10*3/uL Absolute Neuts (auto) (2.0-8.3) x10*3/uL Absolute Nucleated RBC (0.0-0.012) X10*3/uL Nucleated RBC % (auto) (0.0-0.2) /100WBC PT (11.1-13.3) SEC Whole Blood PT (11.1-13.5) sec INR (0.9-1.1) Whole Blood INR (0.9-1.1) APTT (26.0-36.4) SEC Sodium (135-145) mmol/L Potassium (3.3-5.1) mmol/L Chloride (96-108) mmol/L Carbon Dioxide (22-29) mmol/L Anion Gap (12-20) BUN (9-16) mg/dL Creatinine (0.5-1.4) mg/dL Estim Creat Clear Calc Estimated GFR POC Glucose (60-115) mg/dL Random Glucose (60-115) mg/dL Lactic Acid 1.9 (0.5-2.0) mmol/L Calcium (8.4-10.2) mg/dL Total Bilirubin (0.0-1.0) mg/dL AST (5-37) U/L ALT (0-40) U/L Alkaline Phosphatase (39-117) U/L Total Creatine Kinase (38-174) U/L Troponin I High Sens (<3.5-35.0) ng/L Total Protein (6.5-8.0) g/dL Albumin (3.5-5.0) g/dL Urine Color Urine Appearance Urine pH (5.0-9.0) Ur Specific Joffre (1.005-1.025) Urine Protein (Neg-Trace) mg/dL Urine Glucose (UA) (Negative) mg/dL Urine Ketones (Negative) mg/dL Urine Blood (Negative) Urine Nitrite (Negative) Ur Leukocyte Esterase (Negative) Urine RBC (0-2) /HPF Urine WBC (0-5) /HPF Ur Squamous Epith Cells (0-2) /HPF Urine Bacteria (None Seen) Hyaline Casts (0-2) /LPF Urine Opiates Screen (Not Detect) Urine Fentanyl Screen (Not Detect) Ur Barbiturates Screen (Not Detect) Ur Phencyclidine Scrn (Not Detect) Ur Amphetamines Screen (Not Detect) U Benzodiazepines Scrn (Not Detect) Urine Cocaine Screen (Not Detect) U Marijuana (THC) Screen (Not Detect) Independent Interpretation I performed an independent interpretation of an: Plain X-Ray and CT Scan Radiology Impression Discussion of test interpretation with radiology: I have reviewed the radiologist's reading. Independent Historian Clinical information obtained from an independent historian. History obtained from or confirmed by: EMS and Other ([facility] staff) External Record Review External record reviewed: Other (prior visits) Prescription Management I considered prescription management with: Antibiotic Discharge Plan Discharge Clinical Impression: Urinary tract infection Patient Disposition: Admitted As Inpatient Interventions: Admission Worksheet (ED) Last Done: 11/17/23 08:01 Discharge Date/Time: 11/17/23 08:00
[2023-11-16 16:01] LABS: Basophils Percent Auto 0.2 % (0-2); Eosinophils Absolute Auto 0.2 X10*3/uL (0.0-0.4); Eosinophils Percent Auto 3.7 % (0-4); Hematocrit 35.2 % (42.0-52.0); Hemoglobin 11.2 g/dl (14.0-18.0); Imm Gran Abs Auto 0.04 X10*3/uL (0.00-0.03); Imm Gran Pct Auto 0.7 % (0.0-0.4); Lymphocytes Absolute Auto 0.8 X10*3/uL (1.2-4.9); Mean Corpuscular HGB Conc 31.8 g/dl (31.0-36.0); Mean Corpuscular Hemoglobin 30.7 pg (27.0-33.0); Mean Corpuscular Volume 96.4 fL (80.0-98.0); Mean Platelet Volume 9.5 fL (9.4-12.4); Monocytes Absolute Auto 0.5 X10*3/uL (0.1-1.2); Monocytes Percent Auto 9.6 % (2-11); Neutrophils Absolute Auto 3.9 x10*3/uL (2.0-8.3); Neutrophils Percent Auto 71.8 % (45-73); Platelet Count 271 X10*3/uL (160-400); Red Blood Count 3.65 X10*6/uL (4.60-5.80); Red Cell Distribution Width 17.7 % (11.0-16.0); White Blood Count 5.4 X10*3/uL (4.8-10.8)
[2023-11-16 16:01] LABS: Glucose, Whole Blood 122 mg/dL (60-115)
[2023-11-16 16:07] LABS: INTERNATIONAL NORM RATIO 0.9 (0.9-1.1); Prothrombin Time 11.1 SEC (11.1-13.3)
[2023-11-16 16:10] LABS: Partial Thromboplastin Time 32.3 SEC (26.0-36.4)
[2023-11-16] MEDS: iohexoL 350 MG/ML 100 ML INFUS..BTL 70 ML IV (16:13)
[2023-11-16 16:27] VITALS: BP 122/74; BP 138/60; PULSE 79; PULSE 88; RESP 15; TEMP 36.6; O2SAT 96; BMI 23.4
[2023-11-16 16:31] LABS: Alanine Aminotransferase 13 U/L (0-40); Albumin Level 3.8 g/dL (3.5-5.0); Alkaline Phosphatase 101 U/L (39-117); Anion Gap 17 (12-20); Aspartate Amino Transferase 18 U/L (5-37); Bilirubin Total 0.6 mg/dL (0.0-1.0); Blood Urea Nitrogen 16 mg/dL (9-16); Calcium 9.6 mg/dL (8.4-10.2); Carbon Dioxide 22 mmol/L (22-29); Chloride 106 mmol/L (96-108); Estimated Glomerular Filt Rate 58; Glucose Random 133 mg/dL (60-115); Potassium 4.4 mmol/L (3.3-5.1); Sodium 141 mmol/L (135-145); Total Protein 7.4 g/dL (6.5-8.0)
--- NOTE | 2023-11-16 16:51 | PC.NURSE ---
called for update, left phone number for any updates [phone].
[2023-11-16 16:53] LABS: Appearance Urine Hazy; Color Urine Yellow; Glucose Urine UA Negative (Negative); Leukocyte Esterase Urine Large (3+) (Negative); Nitrite Urine Negative (Negative); PH 7.5 (5.0-9.0); UMIC TRIGGER UACC YES; Urine Blood Trace (Negative); Urine Ketones Negative (Negative); Urine Protein 100 (2+) mg/dL (Neg-Trace)
[2023-11-16 16:57] LABS: INTERNATIONAL NORM RATIO 0.9 (0.9-1.1); Prothrombin Time 11.4 SEC (11.1-13.3)
[2023-11-16 16:59] LABS: Partial Thromboplastin Time 31.9 SEC (26.0-36.4)
[2023-11-16 17:07] LABS: Stroke Lab Use COMPLETE
[2023-11-16 17:14] LABS: Anion Gap 15 (12-20); Bacteria Urine 4+ (None Seen); Blood Urea Nitrogen 16 mg/dL (9-16); Calcium 9.2 mg/dL (8.4-10.2); Carbon Dioxide 24 mmol/L (22-29); Chloride 104 mmol/L (96-108); Estimated Glomerular Filt Rate > 60; Glucose Random 131 mg/dL (60-115); Hyaline Casts Urine 0-2 /LPF (0-2); Potassium 4.1 mmol/L (3.3-5.1); RBC Urine 0-2 /HPF (0-2); Sodium 139 mmol/L (135-145); Squamous Epithelial Cell Urine 0-2 /HPF (0-2); UACC Culture Trigger YES; WBC Urine >50 /HPF (0-5)
[2023-11-16 17:25] LABS: Troponin-I High Sensitivity < 2.7 ng/L (<3.5-35.0)
[2023-11-16 17:36] LABS: Amphetamine Screen Urine Not Detected (Not Detect); Barbiturates, Urine Not Detected (Not Detect); Benzodiazepines Screen Urine Not Detected (Not Detect); Cannabinoid Screen Urine Not Detected (Not Detect); Cocaine Screen Urine Not Detected (Not Detect); Fentanyl, urine Not Detected (Not Detect); Opiate Screen Urine Not Detected (Not Detect); Phencyclidine Screen Urine Not Detected (Not Detect)
[2023-11-16] MEDS: cefTRIAXone sodium 1 GM in 0.9 % Sodium Chloride 50 ML IV (17:59)
[2023-11-16 18:00] LABS: Lactic Acid 1.9 mmol/L (0.5-2.0)
[2023-11-16 18:09] VITALS: BP 132/62; PULSE 83; RESP 12; O2SAT 97
--- NOTE | 2023-11-16 18:19 | P.HPHOSP_ITS ---
History of Present Illness Date of Service: 11/16/23 Chief Complaint: confusion 78-year-old gentleman with past medical history of MS chronically bed-bound, with chronic bilateral lower extremity weakness, BPH, depression, type 2 diabetes mellitus on insulin Crohn mouth chronic UTIs with indwelling Nunez catheter resident of nursing facility was brought in to [place] [facility] for evaluation of questionable confusion and lethargy , as per nursing staff from nursing facility patient woke up complaining of lethargy and confusion at around 08:30, again at 13:00 patient complained of same symptoms, he had no fevers no chills no trauma, in the emergency room patient was noted to be alert oriented x3 appeared comfortable there was questionable left facial droop and slight left pronator drift, CT head and CTA head and neck were unremarkable, CBC electrolytes and renal functions were within normal range, UA was positive for 4+ bacteria chronically present, positive leukocyte Estrace, no nitrates patient was given 1 dose of IV ceftriaxone, and admission requested for acute UTI, at present patient denies urinary symptoms of urgency, frequency, no fevers, no chills, he is complaining of upset stomach, denies confusion, complaining of left foot achy pain, due to symptoms of confusion, nausea,+ UA,pt. will be admitted to hospital for close clinical monitoring and follow-up on urine and blood cultures. Review of Systems 2 Review of Systems: General no headache, no dizziness, no fever chills. CVS no chest pain, no palpitation. Respiratory no cough, no sob Gastrointestinal + nausea, no vomiting, no abdominal pain msk left foot pain Skin ch changes no new lesions neg PMFSH Medical History Decubitus ulcer of coccygeal region, stage 2 Acute hypotension Sepsis Aspiration pneumonitis Recurrent UTI (urinary tract infection) Hypotonic neurogenic bladder Lytic lesion of bone on x-ray Wound of foot Anemia Septic shock Shoulder pain Constipation Hematuria Multiple sclerosis Depression Diabetes mellitus type 2 in obese Chronic pain syndrome BPH (benign prostatic hyperplasia) Dehydration Chronic renal failure Urinary tract infection Family History Family/Other Heart attack Father Diabetes Surgical History Hx of removal of cyst Social History Household Members: Other Household Members Other:: lives in residential Housing: Detention Housing Other:: [facility] Do you presently have visiting nurse or other home services: No Unable to assess alcohol history related to: Unable to respond Alcohol intake: never Comment: pt sedated on vent. Patient Tobacco Use Status: Tobacco use Unknown Cigarette Packs Per Day: 1 Smoked in Last 30 Days: No Use of substances other than those prescribed or required for medical reasons: No Advance Directives: Yes Advance Directives on File: Yes Advance Directives Date on File: 10/13/20 service: Yes Current occupational status: retired Meds Allergies Allergy/AdvReac Type Severity Reaction Status Date / Time Benzodiazepines Allergy Unknown UNKNOWN Verified 04/11/21 09:47 [BENZODIAZEPINES] dalfampridine [From AMPYRA] Allergy Unknown UNKNOWN Verified 04/11/21 09:47 duloxetine [From CYMBALTA] Allergy Unknown UNKNOWN Verified 04/11/21 09:47 ezetimibe [From ZETIA] Allergy Unknown UNKNOWN Verified 04/11/21 09:47 niacin [NIACIN] Allergy Unknown UNKNOWN Verified 04/11/21 09:47 pravastatin [PRAVASTATIN] Allergy Unknown UNKNOWN Verified 04/11/21 09:47 [id number]-[id number]-ExY Reductase Allergy Unknown UNKNOWN Verified 04/11/21 09:47 Inhibitor [[id number] REDUCTASE INHIBITOR] lorazepam [From ATIVAN] AdvReac Severe EXCESSIVE Verified 04/11/21 09:47 SEDATION doxycycline [DOXYCYCLINE] AdvReac Mild esophogeal Verified 04/11/21 09:47 iritation methylprednisolone AdvReac Mild heartburn Verified 04/11/21 09:47 [From SOLU-MEDROL] ertapenem [From INVANZ] AdvReac Unknown possible Verified 04/11/21 09:47 cause of bullous pemphigoid Active Medications: Current Medications Acetaminophen (Acetaminophen 325 Mg Tablet) 650 mg PO Q6H PRN PRN Reason: Pain, Mild (Pain Scale 1-3) Al Hydroxide/Mg Hydroxide (Magnesium Hydrox/Alum Hydrox 30 Ml Oral.Susp) 30 ml PO Q4H PRN PRN Reason: Heartburn/Nausea Benzonatate (Benzonatate 100 Mg Capsule) 100 mg PO TID PRN PRN Reason: Cough Dextrose (Dextrose 50 % 25 Gm/50 Ml Syringe) 25 gm IVPUSH Q15M PRN; Protocol PRN Reason: per Hypoglycemia Standing Ord. Docusate Sodium (Docusate Sodium 100 Mg Capsule) 100 mg PO DAILY PRN PRN Reason: Constipation Enoxaparin Sodium (Enoxaparin Sodium 40 Mg/0.4 Ml Syringe) 40 mg SUBCUT Q24H [facility] Glucose (Glucose Gel 15 Gm Gel..Gram.) 15 gm PO Q15M PRN; Protocol PRN Reason: per Hypoglycemia Standing Ord. Ceftriaxone Sodium 1 gm/ (Sodium Chloride) 50 mls @ 100 mls/hr IV Q24H [facility] Insulin Human Lispro (Insulin Lispro 100 Unit/Ml 3 Ml Vial) 0 unit SUBCUT QIDACHS [facility]; Protocol Melatonin (Melatonin 3 Mg Tablet) 6 mg PO BEDTIME PRN PRN Reason: Insomnia Morphine Sulfate (Morphine Sulfate 4 Mg/Ml Cartridge) 3 mg IVPUSH Q4H PRN; Protocol PRN Reason: Pain, Severe (Pain Scale 7-10) Ondansetron HCl (Ondansetron Hcl 4 Mg/2 Ml Vial) 4 mg IVPUSH Q8H PRN PRN Reason: Nausea and Vomiting Oxycodone HCl (Oxycodone Hcl Immed Release 5 Mg Tablet) 5 mg PO Q6H PRN PRN Reason: Pain, Moderate(Pain Scale 4-6) Sodium Chloride (0.9 % Sodium Chloride Flush 3 Ml Syringe) [facility] Medications Medication Instructions Recorded Confirmed Last Taken Type bisacodyl 10 mg rectal suppository 10 mg OK DAILY 10/09/20 08/09/21 Unknown History gabapentin 300 mg capsule 300 mg PO BID@0630,1200 10/09/20 08/09/21 Unknown History metformin 500 mg tablet 500 mg PO BID 10/09/20 08/09/21 Unknown History tramadol 50 mg tablet 50 mg PO BID PRN Pain 10/09/20 08/09/21 Unknown History trazodone 50 mg tablet 25 mg PO BEDTIME 10/09/20 08/09/21 Unknown History acetaminophen 325 mg tablet 650 mg PO Q4H PRN pain or fever 03/13/21 08/09/21 Unknown History amlodipine 2.5 mg tablet 7.5 mg PO DAILY 03/13/21 08/09/21 Unknown History aspirin 81 mg chewable tablet 81 mg PO DAILY 03/13/21 08/09/21 Unknown History gabapentin 600 mg tablet 800 mg PO BEDTIME 03/13/21 08/09/21 Unknown History insulin lispro 100 unit/mL 100 sliding scale dose subcut 03/13/21 08/09/21 Unknown History subcutaneous solution (Humalog QIDACHS U-100 Insulin) niacinamide 500 mg tablet 500 mg PO TID 03/13/21 08/09/21 Unknown History rosuvastatin 10 mg tablet 10 mg PO DAILY 03/13/21 08/09/21 Unknown History aluminum-mag hydroxide-simethicone 30 ml PO Q6H PRN Nausea 04/20/21 08/09/21 Unknown History 225 mg-200 mg-25 mg/5 mL oral susp nystatin-triamcinolone 100,000 1 appl topical TID 04/20/21 08/09/21 Unknown History unit/g-0.1 % topical cream guaifenesin 100 mg/5 mL oral 200 mg PO Q4H PRN Cough 05/19/21 08/09/21 Unknown History liquid (Diabetic Tussin EX) prednisone 2.5 mg tablet 2.5 mg PO DAILY 05/19/21 08/09/21 Unknown History Physical Exam 2 Vital Signs and Narrative: Vital Signs: Last Vital Signs Temp 97.9 F 11/16/23 16:27 Pulse 83 11/16/23 18:09 Resp 12 11/16/23 18:09 BP 132/62 11/16/23 18:09 Pulse Ox 97 11/16/23 18:09 O2 Del Method Room Air 11/16/23 18:09 BMI result Body Mass Index 23.4 Const: Other: General Awake alert x3, appears uncomfortable due to nausea and left foot pain. anicteric sclera Neck no JVD. CVS regular rate rhythm, Respiratory lungs clear to auscultation, no respiratory distress, no wheeze, no rhonchi. Gastrointestinal abdomen soft, nontender, bowel sounds audible, no guarding , no rigidity. Extremities no edema. Neuro speech clear, slight left facial droop seems chronic, otherwise symmetrical face chronic mild left upper extremity weakness, bed bound chronic bilateral lower extremity weakness due to MS Skin multiple lesions both due to pemphigoid, dry scabs dorsum of leg, dry scaly skin psych appropriate affect Nunez catheter no hematuria Results Labs 11/16/23 15:55 11/16/23 16:42 Labs: Laboratory Results - last 24 hr 11/16/23 11/16/23 11/16/23 15:52 15:55 16:42 MCV 96.4 MCH 30.7 MCHC 31.8 RDW 17.7 H Plt Count 271 D MPV 9.5 Immature Gran % (Auto) 0.7 H Neut % (Auto) 71.8 Lymph % (Auto) 14.0 L [place] % (Auto) 9.6 Eos % (Auto) 3.7 Baso % (Auto) 0.2 Lymph # (Auto) 0.8 L [place] # (Auto) 0.5 Eos # (Auto) 0.2 Baso # (Auto) 0.0 Abs Immat Gran (auto) 0.04 H Absolute Neuts (auto) 3.9 Absolute Nucleated RBC 0.000 Nucleated RBC % (auto) 0.0 PT 11.1 11.4 Whole Blood PT 12.2 INR 0.9 0.9 Whole Blood INR 1.0 APTT 32.3 31.9 Anion Gap 17 15 Estim Creat Clear Calc 57.0 61.0 Estimated GFR 58 > 60 POC Glucose 122 H Random Glucose 133 H 131 H Lactic Acid Calcium 9.6 D 9.2 Total Bilirubin 0.6 AST 18 ALT 13 Alkaline Phosphatase 101 Total Creatine Kinase 12 L Total Protein 7.4 Albumin 3.8 Urine Color Yellow Urine Appearance Hazy Urine pH 7.5 Ur Specific [place] 1.010 Urine Protein 100 (2+) H Urine Glucose (UA) Negative Urine Ketones Negative Urine Blood Trace Urine Nitrite Negative Ur Leukocyte Esterase Large (3+) H Urine RBC 0-2 Urine WBC >50 H Ur Squamous Epith Cells 0-2 Urine Bacteria 4+ Hyaline Casts 0-2 Urine Opiates Screen Not Detected Urine Fentanyl Screen Not Detected Ur Barbiturates Screen Not Detected Ur Phencyclidine Scrn Not Detected Ur Amphetamines Screen Not Detected U Benzodiazepines Scrn Not Detected Urine Cocaine Screen Not Detected U Marijuana (THC) Screen Not Detected 11/16/23 17:33 MCV MCH MCHC RDW Plt Count MPV Immature Gran % (Auto) Neut % (Auto) Lymph % (Auto) [place] % (Auto) Eos % (Auto) Baso % (Auto) Lymph # (Auto) [place] # (Auto) Eos # (Auto) Baso # (Auto) Abs Immat Gran (auto) Absolute Neuts (auto) Absolute Nucleated RBC Nucleated RBC % (auto) PT Whole Blood PT INR Whole Blood INR APTT Anion Gap Estim Creat Clear Calc Estimated GFR POC Glucose Random Glucose Lactic Acid 1.9 Calcium Total Bilirubin AST ALT Alkaline Phosphatase Total Creatine Kinase Total Protein Albumin Urine Color Urine Appearance Urine pH Ur Specific [place] Urine Protein Urine Glucose (UA) Urine Ketones Urine Blood Urine Nitrite Ur Leukocyte Esterase Urine RBC Urine WBC Ur Squamous Epith Cells Urine Bacteria Hyaline Casts Urine Opiates Screen Urine Fentanyl Screen Ur Barbiturates Screen Ur Phencyclidine Scrn Ur Amphetamines Screen U Benzodiazepines Scrn Urine Cocaine Screen U Marijuana (THC) Screen Imaging Radiologist's Impressions: Impressions Head CT 11/16/23 16:10 IMPRESSION: No acute intracranial process seen. No major change compared to previous CT brain 03/13/2021. This critical result was discussed with Dwayne Marquez at 4:19 PM. It was ascertained that the content and urgency of the report was understood at the time of direct communication. Head/Neck CTA 11/16/23 16:33 IMPRESSION: 1. No acute intracranial findings. 2. No acute arterial occlusion or hemodynamically significant stenosis within the head or neck. 3. Diffuse osseous demineralization and cervical spondylosis with apparent at least moderate C4-C5 spinal canal stenosis with possible mass effect along the cord and multilevel high-grade neural foraminal narrowing. If there is referrable myelopathy/radiculopathy, further evaluation of these findings with dedicated cervical spine MRI may be performed as clinically warranted. Chest X-Ray 11/16/23 17:05 IMPRESSION: No evidence of pneumonia. No acute cardiopulmonary abnormality compared to 10/15/2023. Assessment and Plan (1) Catheter-associated urinary tract infection: Status: Acute (2) Bullous pemphigoid: Status: Acute (3) Steroid dependence: Status: Acute Plan 76yo M SNF resident with MS with atonic bladder/chronic Nunez, DM2, CKD, BPH, bullous pemphigoid brought in to [facility] since noted to have confusion and lethargy, with concern for stroke patient in ED noted to be awake alert x3 with no confusion,in ED there was concern for mild left facial droop and left upper extremity pronator drift. # Urinary tract infection in the setting of chronic Nunez catheter due to atonic bladder/BPH continue IV ceftriaxone started on 11/16 follow urine and blood cultures # lethargy +confusion noted to have no confusion or lethargy in ED patient awake alert x3, follow clinical course no evidence of acute CVA with normal CT head and normal CTA head and neck monitor neuro status resume antihypertensive medications, aspirin and statin. # diabetes mellitus on insulin will place on diabetic diet, insulin sliding scale, resume home medications when med rec completed. # MS med rec pending will resume home medications, due to left foot pain will place patient on IV morphine and as needed oxycodone, patient chronically bed- bound # bullous pemphigoid chronic on steroids # hypertension Resume home medications # DVT prophylaxis with subQ Lovenox # code status full code # disposition back to rehab facility in my clinical judgment patient need 2 night inpatient stay for close neurological monitoring and for treatment of UTI with chronic indwelling Nunez catheter. Quality Stroke Does the patient have a stroke diagnosis?: No VTE Prior VTE?: No VTE Risk Level:: Medical - moderate - high VTE Device Contraindication: Treatment Not Indicated VTE Drug Contraindication: N/A - Med Ordered
[2023-11-16 18:27] VITALS: BP 140/71; PULSE 86; RESP 12; O2SAT 98
[2023-11-16] MEDS: Enoxaparin Sodium 40 MG/0.4 ML SYRINGE SUBCUT (18:33)
--- NOTE | 2023-11-16 18:50 | PC.NURSE ---
pt has 20g Iv in RAC, resting comfortably on stretcher, respirations even and unlabored, skin pwd, alert and oriented x2 at baseline
--- NOTE | 2023-11-16 19:17 | PHA.MEDREC ---
Pharmacy Consult ? Medication Reconciliation Medication list from [facility] has completed the medication reconciliation.
[2023-11-16 19:47] VITALS: BP 128/69; PULSE 89; RESP 12; TEMP 36.6; O2SAT 98
[2023-11-16 21:53] LABS: Glucose, Whole Blood 104 mg/dL (60-115)
[2023-11-17] MEDS: Melatonin 3 MG TABLET 6 MG PO (02:34)
[2023-11-17 06:32] VITALS: BP 137/90; PULSE 111; RESP 16; TEMP 36.7; O2SAT 97
--- NOTE | 2023-11-17 06:32 | MHC.EDTECH ---
tech empties cath bag with 500ml voided.
[2023-11-17 07:08] LABS: Glucose, Whole Blood 86 mg/dL (60-115)
[2023-11-17] MEDS: 0.9 % Sodium Chloride Flush 3 ML SYRINGE IVFLUSH ×4 (07:21→19:16)
[2023-11-17 08:48] VITALS: BP 173/80; PULSE 113; RESP 18; TEMP 36.6; O2SAT 97
[2023-11-17] MEDS: polyethylene glycoL 3350 17 GM POWD.PACK PO (08:59)
[2023-11-17] MEDS: predniSONE 2.5 MG TABLET PO (08:59)
[2023-11-17] MEDS: Aspirin 81 MG TAB.CHEW PO (08:59)
[2023-11-17] MEDS: Atorvastatin Calcium 40 MG TABLET PO (08:59)
[2023-11-17] MEDS: Lactulose 20 GM/30 ML SOLUTION PO (08:59)
[2023-11-17] MEDS: Famotidine 20 MG TABLET PO ×2 (08:59→20:51)
[2023-11-17] MEDS: amLODIPine Besylate 10 MG TABLET PO (08:59)
--- NOTE | 2023-11-17 09:47 | MHC.CM.PN ---
spoke with pts who confirms that pot from [facility] where he will return when [facility]
[2023-11-17 10:29] VITALS: BMI 23.3
[2023-11-17 11:29] LABS: Glucose, Whole Blood 114 mg/dL (60-115)
[2023-11-17] MEDS: Gabapentin 300 MG CAPSULE PO (11:42)
[2023-11-17 13:35] VITALS: BMI 23.3
--- NOTE | 2023-11-17 13:49 | P.PNIM_ITS ---
Subjective Subjective Date of Service: 11/17/23 Interval History: Which more alert per staff. States he feels fine and would like to return to [facility] manner Review of Systems Denies chest pain Denies shortness of breath Denies nausea vomiting diarrhea Denies fever chills Physical Exam 2 Vital Signs: Vital Signs: Last Vital Signs Temp 97.9 F 11/17/23 08:48 Pulse 113 H 11/17/23 08:48 Resp 18 11/17/23 08:48 BP 173/80 H 11/17/23 08:48 Pulse Ox 97 11/17/23 08:48 O2 Del Method Room Air 11/17/23 08:48 BMI result Body Mass Index 23.3 Const: Other: Awake alert oriented x3 no acute distress Resp: Other: Clear to auscultation bilaterally no rales rhonchi or wheezes Cardio: Other: No S4; positive S1-S2; no S3 murmurs rubs or gallops GI: Other: Soft nontender nondistended normoactive bowel sounds Extrem: Other: No edema bilaterally Objective Data Active Medications Acetaminophen (Acetaminophen 325 Mg Tablet) 650 mg PO Q6H PRN PRN Reason: Pain, Mild (Pain Scale 1-3) Al Hydroxide/Mg Hydroxide (Magnesium Hydrox/Alum Hydrox 30 Ml Oral.Susp) 30 ml PO Q4H PRN PRN Reason: Heartburn/Nausea Amlodipine Besylate (Amlodipine Besylate 10 Mg Tablet) 10 mg PO DAILY [facility]; Protocol Last Admin: 11/17/23 08:59 Dose: 10 mg Documented By: ENOCH Aspirin (Aspirin 81 Mg Tab.Chew) 81 mg PO DAILY [facility] Last Admin: 11/17/23 08:59 Dose: 81 mg Documented By: ENOCH Atorvastatin Calcium (Atorvastatin Calcium 40 Mg Tablet) 40 mg PO DAILY [facility] Last Admin: 11/17/23 08:59 Dose: 40 mg Documented By: ENOCH Benzonatate (Benzonatate 100 Mg Capsule) 100 mg PO TID PRN PRN Reason: Cough Dextrose (Dextrose 50 % 25 Gm/50 Ml Syringe) 25 gm IVPUSH Q15M PRN; Protocol PRN Reason: per Hypoglycemia Standing Ord. Docusate Sodium (Docusate Sodium 100 Mg Capsule) 100 mg PO DAILY PRN PRN Reason: Constipation Enoxaparin Sodium (Enoxaparin Sodium 40 Mg/0.4 Ml Syringe) 40 mg SUBCUT Q24H [facility] Last Admin: 11/16/23 18:33 Dose: 40 mg Documented By: KELTON Famotidine (Famotidine 20 Mg Tablet) 20 mg PO BID [facility] Last Admin: 11/17/23 08:59 Dose: 20 mg Documented By: ENOCH Folic Acid (Folic Acid 1 Mg Tablet) 1 mg PO SuTuWeThFrSa@0900 [facility] Gabapentin (Gabapentin 400 Mg Capsule) 800 mg PO BEDTIME WICHO Gabapentin (Gabapentin 300 Mg Capsule) 300 mg PO BID@0630,1200 [facility] Last Admin: 11/17/23 11:42 Dose: 300 mg Documented By: ENOCH Glucose (Glucose Gel 15 Gm Gel..Gram.) 15 gm PO Q15M PRN; Protocol PRN Reason: per Hypoglycemia Standing Ord. Ceftriaxone Sodium 1 gm/ (Sodium Chloride) 50 mls @ 100 mls/hr IV Q24H [facility] Insulin Human Lispro (Insulin Lispro 100 Unit/Ml 3 Ml Vial) 0 unit SUBCUT QIDACHS [facility]; Protocol Last Admin: 11/17/23 11:28 Dose: Not Given Documented By: ENOCH Non-Admin Reason: No Insulin Coverage Lactulose (Lactulose 20 Gm/30 Ml Solution) 20 gm PO DAILY [facility] Last Admin: 11/17/23 08:59 Dose: 20 gm Documented By: ENOCH Losartan Potassium (Losartan Potassium 25 Mg Tablet) 25 mg PO BEDTIME [facility]; Protocol Melatonin (Melatonin 3 Mg Tablet) 6 mg PO BEDTIME PRN PRN Reason: Insomnia Last Admin: 11/17/23 02:34 Dose: 6 mg Documented By: KELTON Metformin HCl (Metformin Hcl 500 Mg Tablet) 500 mg PO BIDWM [facility] Morphine Sulfate (Morphine Sulfate 4 Mg/Ml Cartridge) 3 mg IVPUSH Q4H PRN; Protocol PRN Reason: Pain, Severe (Pain Scale 7-10) Ondansetron HCl (Ondansetron Hcl 4 Mg/2 Ml Vial) 4 mg IVPUSH Q8H PRN PRN Reason: Nausea and Vomiting Oxycodone HCl (Oxycodone Hcl Immed Release 5 Mg Tablet) 5 mg PO Q6H PRN PRN Reason: Pain, Moderate(Pain Scale 4-6) Polyethylene Glycol (Polyethylene Glycol 3350 17 Gm Powd.Pack) 17 gm PO DAILY [facility] Last Admin: 11/17/23 08:59 Dose: 17 gm Documented By: ENOCH Prednisone (Prednisone 2.5 Mg Tablet) 2.5 mg PO DAILY [facility] Last Admin: 11/17/23 08:59 Dose: 2.5 mg Documented By: ENOCH Senna (Sennosides 8.6 Mg Tablet) 17.2 mg PO BEDTIME [facility] Sodium Chloride (0.9 % Sodium Chloride Flush 3 Ml Syringe) 3 ml IVFLUSH QSHIFT [facility] Last Admin: 11/17/23 07:21 Dose: 3 ml Documented By: SCOC Labs 11/16/23 15:55 11/16/23 16:42 Labs: Laboratory Results - last 24 hr 11/16/23 11/16/23 11/16/23 15:52 15:55 16:42 MCV 96.4 MCH 30.7 MCHC 31.8 RDW 17.7 H Plt Count 271 D MPV 9.5 Immature Gran % (Auto) 0.7 H Neut % (Auto) 71.8 Lymph % (Auto) 14.0 L [place] % (Auto) 9.6 Eos % (Auto) 3.7 Baso % (Auto) 0.2 Lymph # (Auto) 0.8 L [place] # (Auto) 0.5 Eos # (Auto) 0.2 Baso # (Auto) 0.0 Abs Immat Gran (auto) 0.04 H Absolute Neuts (auto) 3.9 Absolute Nucleated RBC 0.000 Nucleated RBC % (auto) 0.0 PT 11.1 11.4 Whole Blood PT 12.2 INR 0.9 0.9 Whole Blood INR 1.0 APTT 32.3 31.9 Anion Gap 17 15 Estim Creat Clear Calc 57.0 61.0 Estimated GFR 58 > 60 POC Glucose 122 H Random Glucose 133 H 131 H Lactic Acid Calcium 9.6 D 9.2 Total Bilirubin 0.6 AST 18 ALT 13 Alkaline Phosphatase 101 Total Creatine Kinase 12 L Total Protein 7.4 Albumin 3.8 Urine Color Yellow Urine Appearance Hazy Urine pH 7.5 Ur Specific [place] 1.010 Urine Protein 100 (2+) H Urine Glucose (UA) Negative Urine Ketones Negative Urine Blood Trace Urine Nitrite Negative Ur Leukocyte Esterase Large (3+) H Urine RBC 0-2 Urine WBC >50 H Ur Squamous Epith Cells 0-2 Urine Bacteria 4+ Hyaline Casts 0-2 Urine Opiates Screen Not Detected Urine Fentanyl Screen Not Detected Ur Barbiturates Screen Not Detected Ur Phencyclidine Scrn Not Detected Ur Amphetamines Screen Not Detected U Benzodiazepines Scrn Not Detected Urine Cocaine Screen Not Detected U Marijuana (THC) Screen Not Detected 11/16/23 11/16/23 11/17/23 17:33 21:10 07:04 MCV MCH MCHC RDW Plt Count MPV Immature Gran % (Auto) Neut % (Auto) Lymph % (Auto) [place] % (Auto) Eos % (Auto) Baso % (Auto) Lymph # (Auto) [place] # (Auto) Eos # (Auto) Baso # (Auto) Abs Immat Gran (auto) Absolute Neuts (auto) Absolute Nucleated RBC Nucleated RBC % (auto) PT Whole Blood PT INR Whole Blood INR APTT Anion Gap Estim Creat Clear Calc Estimated GFR POC Glucose 104 86 Random Glucose Lactic Acid 1.9 Calcium Total Bilirubin AST ALT Alkaline Phosphatase Total Creatine Kinase Total Protein Albumin Urine Color Urine Appearance Urine pH Ur Specific [place] Urine Protein Urine Glucose (UA) Urine Ketones Urine Blood Urine Nitrite Ur Leukocyte Esterase Urine RBC Urine WBC Ur Squamous Epith Cells Urine Bacteria Hyaline Casts Urine Opiates Screen Urine Fentanyl Screen Ur Barbiturates Screen Ur Phencyclidine Scrn Ur Amphetamines Screen U Benzodiazepines Scrn Urine Cocaine Screen U Marijuana (THC) Screen 11/17/23 11:22 MCV MCH MCHC RDW Plt Count MPV Immature Gran % (Auto) Neut % (Auto) Lymph % (Auto) [place] % (Auto) Eos % (Auto) Baso % (Auto) Lymph # (Auto) [place] # (Auto) Eos # (Auto) Baso # (Auto) Abs Immat Gran (auto) Absolute Neuts (auto) Absolute Nucleated RBC Nucleated RBC % (auto) PT Whole Blood PT INR Whole Blood INR APTT Anion Gap Estim Creat Clear Calc Estimated GFR POC Glucose 114 Random Glucose Lactic Acid Calcium Total Bilirubin AST ALT Alkaline Phosphatase Total Creatine Kinase Total Protein Albumin Urine Color Urine Appearance Urine pH Ur Specific [place] Urine Protein Urine Glucose (UA) Urine Ketones Urine Blood Urine Nitrite Ur Leukocyte Esterase Urine RBC Urine WBC Ur Squamous Epith Cells Urine Bacteria Hyaline Casts Urine Opiates Screen Urine Fentanyl Screen Ur Barbiturates Screen Ur Phencyclidine Scrn Ur Amphetamines Screen U Benzodiazepines Scrn Urine Cocaine Screen U Marijuana (THC) Screen Microbiology Microbiology Results: Microbiology 11/16/23 16:42 Urine Culture - Preliminary Urine clean catch - Urine marr top Culture in progress. Assessment and Plan (1) Catheter-associated urinary tract infection: Status: Acute (2) Bullous pemphigoid: Status: Acute (3) Steroid dependence: Status: Acute (4) Diabetes mellitus type 2 in obese: Status: Acute Plan 76yo M SNF resident with MS with atonic bladder/chronic Nunez, DM2, CKD, BPH, bullous pemphigoid brought in to [facility] since noted to have confusion and lethargy, symptoms completely resolved at this point 1. Urinary tract infection(chronic Nunez catheter due to atonic bladder/BPH) -ceftriaxone(2) -await cultures -adjust as indicated 2.Lethargy/confusion -workup including CTA head neck and CTA head unremarkable -return to based line...asymptomatic 3.DMII -continue outpatient therapies -lispro correctional scale -adjust as indicated 4.Bullous pemphigoid -steroids 5.Hypertension -acceptable control on current therapy -adjust as indicated Lovenox Full code Requires ongoing hospitalization for IV ceftriaxone to treat urinary tract infection causing lethargy and confusion. Quality Stroke Does the patient have a stroke diagnosis?: No VTE Prior VTE?: No VTE Risk Level:: Medical - moderate - high VTE Device Contraindication: Treatment Not Indicated VTE Drug Contraindication: N/A - Med Ordered
[2023-11-17 15:35] VITALS: BP 142/81; PULSE 119; RESP 18; TEMP 36.6; O2SAT 95
[2023-11-17 16:53] LABS: Glucose, Whole Blood 151 mg/dL (60-115)
[2023-11-17] MEDS: Insulin Lispro 100 UNIT/ML 3 ML VIAL SUBCUT (17:07)
[2023-11-17] MEDS: cefTRIAXone sodium 1 GM in 0.9 % Sodium Chloride 50 ML IV (17:23)
[2023-11-17 19:08] VITALS: BP 132/70; PULSE 113; RESP 17; TEMP 36.8; O2SAT 97
[2023-11-17] MEDS: Enoxaparin Sodium 40 MG/0.4 ML SYRINGE SUBCUT (19:15)
[2023-11-17 20:19] LABS: Glucose, Whole Blood 135 mg/dL (60-115)
[2023-11-17] MEDS: Gabapentin 400 MG CAPSULE 800 MG PO (20:51)
[2023-11-17] MEDS: Sennosides 8.6 MG TABLET 17.2 MG PO (20:51)
[2023-11-17] MEDS: Losartan Potassium 25 MG TABLET PO (20:51)
[2023-11-18] MEDS: Melatonin 3 MG TABLET 6 MG PO (03:11)
[2023-11-18 04:00] VITALS: BP 151/78; PULSE 111; RESP 16; TEMP 36.4; O2SAT 97
[2023-11-18 05:41] LABS: MANUAL DIFF FLAG NO
[2023-11-18 05:47] LABS: Basophils Percent Auto 0.5 % (0-2); Eosinophils Absolute Auto 0.2 X10*3/uL (0.0-0.4); Hematocrit 32.3 % (42.0-52.0); Hemoglobin 10.6 g/dl (14.0-18.0); Imm Gran Abs Auto 0.05 X10*3/uL (0.00-0.03); Imm Gran Pct Auto 0.8 % (0.0-0.4); Lymphocytes Percent Auto 16.4 % (20-40); Mean Corpuscular HGB Conc 32.8 g/dl (31.0-36.0); Mean Corpuscular Hemoglobin 30.9 pg (27.0-33.0); Mean Corpuscular Volume 94.2 fL (80.0-98.0); Mean Platelet Volume 9.8 fL (9.4-12.4); Monocytes Percent Auto 16.2 % (2-11); Neutrophils Absolute Auto 3.8 x10*3/uL (2.0-8.3); Neutrophils Percent Auto 62.1 % (45-73); Platelet Count 278 X10*3/uL (160-400); Red Blood Count 3.43 X10*6/uL (4.60-5.80); Red Cell Distribution Width 17.7 % (11.0-16.0)
[2023-11-18 06:07] LABS: Alanine Aminotransferase 10 U/L (0-40); Albumin Level 3.6 g/dL (3.5-5.0); Alkaline Phosphatase 97 U/L (39-117); Anion Gap 18 (12-20); Aspartate Amino Transferase 16 U/L (5-37); Bilirubin Total 0.9 mg/dL (0.0-1.0); Blood Urea Nitrogen 14 mg/dL (9-16); Calcium 9.2 mg/dL (8.4-10.2); Carbon Dioxide 20 mmol/L (22-29); Chloride 104 mmol/L (96-108); Creatinine Clr Calc Pharmacy 99.9; Estimated Glomerular Filt Rate > 60; Glucose Fasting 102 mg/dL (60-99); Potassium 3.7 mmol/L (3.3-5.1); Sodium 138 mmol/L (135-145); Total Protein 6.9 g/dL (6.5-8.0)
[2023-11-18] MEDS: Gabapentin 300 MG CAPSULE PO ×2 (06:17→11:40)
[2023-11-18 07:11] VITALS: BP 167/74; PULSE 110; RESP 18; TEMP 36.2; O2SAT 98
[2023-11-18 07:18] LABS: Glucose, Whole Blood 97 mg/dL (60-115)
[2023-11-18] MEDS: 0.9 % Sodium Chloride Flush 3 ML SYRINGE IVFLUSH (08:08)
[2023-11-18] MEDS: amLODIPine Besylate 10 MG TABLET PO (08:09)
[2023-11-18] MEDS: Famotidine 20 MG TABLET PO (08:09)
[2023-11-18] MEDS: Aspirin 81 MG TAB.CHEW PO (08:09)
[2023-11-18] MEDS: Atorvastatin Calcium 40 MG TABLET PO (08:09)
[2023-11-18] MEDS: predniSONE 2.5 MG TABLET PO (08:09)
[2023-11-18] MEDS: Lactulose 20 GM/30 ML SOLUTION PO (08:10)
[2023-11-18] MEDS: polyethylene glycoL 3350 17 GM POWD.PACK PO (08:10)
[2023-11-18] MEDS: Folic Acid 1 MG TABLET PO (09:26)
--- NOTE | 2023-11-18 10:29 | MHC.CM.PN ---
[facility] today [facility]
--- NOTE | 2023-11-18 10:32 | PM.DS ---
DS: Providers Provider Date of Service: 11/18/23 Date of admission: 11/16/23 18:14 Date of discharge: 11/18/23 Primary care physician: Get Martin MD DS: Diagnosis Discharge Diagnosis (1) Catheter-associated urinary tract infection: Status: Acute (2) Bullous pemphigoid: Status: Acute (3) Steroid dependence: Status: Acute (4) Diabetes mellitus type 2 in obese: Status: Acute DS: Summary Hospital Course Hospital Course: 78-year-old gentleman with past medical history of MS chronically bed-bound, with chronic bilateral lower extremity weakness, BPH, depression, type 2 diabetes mellitus on insulin Crohn mouth chronic UTIs with indwelling Nunez catheter resident of nursing facility was brought in to [facility] for evaluation of questionable confusion and lethargy , as per nursing staff from nursing facility patient woke up complaining of lethargy and confusion at around 08:30, again at 13:00 patient complained of same symptoms, he had no fevers no chills no trauma, in the emergency room patient was noted to be alert oriented x3 appeared comfortable there was questionable left facial droop and slight left pronator drift, CT head and CTA head and neck were unremarkable, CBC electrolytes and renal functions were within normal range, UA was positive for 4+ bacteria chronically present, positive leukocyte Estrace, no nitrates patient was given 1 dose of IV ceftriaxone, and admission requested for acute UTI, [facility] Patient admitted to general medical floor and started on IV ceftriaxone. Ultimately urine grew out greater than 100,000 mixed catia. Given patient's dramatic improvement in mental status and orientation it was decided to complete course of antibiotics with Ceftin 500 b.i.d. times 10 days given initial presentation. Blood cultures have remained negative. At this point in time he is medically acceptable to transfer back to long-term [facility] Time Attestation Discharge coordination time: Greater than 30 minutes Quality: Safe Use of Opioids Does Pt have an Active Cancer Diagnosis on the Problem List?: No Quality: Stroke Does the patient have a stroke diagnosis?: No Physical Exam Vital Signs: Vital Signs: Last Vital Signs Temp 97.1 F 11/18/23 07:11 Pulse 110 H 11/18/23 07:11 Resp 18 11/18/23 07:11 BP 167/74 H 11/18/23 07:11 Pulse Ox 98 11/18/23 07:11 O2 Del Method Room Air 11/18/23 07:11 BMI result Body Mass Index 23.3 Const: Other: Awake alert oriented x3 no acute distress Resp: Other: Clear to auscultation bilaterally no rales rhonchi or wheezes Cardio: Other: No S4; positive S1-S2; no S3 murmurs rubs or gallops GI: Other: Soft nontender nondistended normoactive bowel sounds Extrem: Other: No edema bilaterally DS: Data Data Completed and Pending Completed studies during hospitalization [Text1]: Procedures Insertion of Endotracheal Airway into Trachea, Via Natural or Artificial Opening Endoscopic (05/14/21) Insertion of Infusion Device into Superior Vena Cava, Percutaneous Approach (05/14/21) Introduction of Vasopressor into Central Vein, Percutaneous Approach (05/14/21) Respiratory Ventilation, Greater than 96 Consecutive Hours (05/14/21) Ultrasonography of Superior Vena Cava, Guidance (03/13/21) Labs on day of discharge: Laboratory Results - last 24 hr 11/17/23 11/17/23 11/17/23 11:22 16:26 20:13 WBC RBC Hgb Hct MCV MCH MCHC RDW Plt Count MPV Immature Gran % (Auto) Neut % (Auto) Lymph % (Auto) [place] % (Auto) Eos % (Auto) Baso % (Auto) Lymph # (Auto) [place] # (Auto) Eos # (Auto) Baso # (Auto) Abs Immat Gran (auto) Absolute Neuts (auto) Absolute Nucleated RBC Nucleated RBC % (auto) Sodium Potassium Chloride Carbon Dioxide Anion Gap BUN Creatinine Estim Creat Clear Calc Estimated GFR POC Glucose 114 151 H 135 H Fasting Glucose Calcium Total Bilirubin AST ALT Alkaline Phosphatase Total Protein Albumin 11/18/23 11/18/23 04:59 07:10 WBC 6.0 RBC 3.43 L Hgb 10.6 L Hct 32.3 L MCV 94.2 MCH 30.9 MCHC 32.8 RDW 17.7 H Plt Count 278 MPV 9.8 Immature Gran % (Auto) 0.8 H Neut % (Auto) 62.1 Lymph % (Auto) 16.4 L [place] % (Auto) 16.2 H Eos % (Auto) 4.0 Baso % (Auto) 0.5 Lymph # (Auto) 1.0 L [place] # (Auto) 1.0 Eos # (Auto) 0.2 Baso # (Auto) 0.0 Abs Immat Gran (auto) 0.05 H Absolute Neuts (auto) 3.8 Absolute Nucleated RBC 0.000 Nucleated RBC % (auto) 0.0 Sodium 138 Potassium 3.7 Chloride 104 Carbon Dioxide 20 L Anion Gap 18 BUN 14 Creatinine 0.69 Estim Creat Clear Calc 99.9 Estimated GFR > 60 POC Glucose 97 Fasting Glucose 102 H Calcium 9.2 Total Bilirubin 0.9 AST 16 ALT 10 Alkaline Phosphatase 97 Total Protein 6.9 Albumin 3.6 Preliminary micro results at discharge 11/16/23 17:48 Blood Culture - Preliminary Blood - Venous No growth after 24 hours. 11/16/23 17:33 Blood Culture - Preliminary Blood - Venous No growth after 24 hours. Discharge Plan Discharge Anticipated Discharge Date/Time: 11/18/23 10:27 Patient Disposition: er [facility] Discharge Diagnosis: Catheter associated urinary tract infection Referrals: [facility] [Other] - 1 Week Get Martin MD [Primary Care Provider] - Discharge Medications: New cefuroxime axetil 500 mg tablet 500 mg PO BID 10 Days Qty: 20 0RF Continued bisacodyl 10 mg Suppository 10 mg WI DAILY PRN (Reason: Constipation) metformin 500 mg Tablet 500 mg PO BID Hold Instructions: Resume on 03/25/21. Re-check renal function prior to restarting Metformin gabapentin 300 mg Capsule 300 mg PO BID@0630,1200 trazodone 50 mg Tablet 25 mg PO BEDTIME tramadol 50 mg Tablet 50 mg PO BEDTIME Levemir U-100 Insulin 100 unit/mL Solution 10 unit SUBCUT BEDTIME Qty: 0 0RF baclofen 20 mg Tablet 20 mg PO TID Qty: 0 0RF acetaminophen 325 mg Tablet 650 mg PO Q4H PRN (Reason: Moderate Pain (Scale Score 5-6)) Rx Instructions: pain or fever niacinamide 500 mg Tablet 500 mg PO TID aspirin 81 mg Tablet,Chewable 81 mg PO DAILY rosuvastatin 10 mg Tablet 10 mg PO DAILY insulin lispro [Humalog U-100 Insulin] 100 unit/mL Solution 100 sliding scale dose subcut QIDACHS Protocol: Insulin Correction Scale Less than or equal to 110 ---- Give (units): 0 111 to 150 Give (units): 0 151 to 200 Give (units): 2 201 to 250 Give (units): 4 251 to 300 Give (units): 6 301 to 350 Give (units): 8 Greater than 350 Give (units): 10 Call MD if Blood Glucose > : 350 Rx Instructions: 150-199 6 UNITS, 200-249 8 UNITS, 250-299 10 UNITS, 300-349 12 UNITS, 350 - 399 14 UNITS, 400-449 16 UNITS, CALL MD IF 450 OR GREATER nystatin-triamcinolone 100,000-0.1 unit/g-% Cream 1 appl TOPICAL TID prednisone 2.5 mg Tablet 2.5 mg PO DAILY guaifenesin [Diabetic Tussin EX] 100 mg/5 mL Liquid 200 mg PO Q4H PRN (Reason: Cough) metformin 500 mg Tablet 500 mg PO BIDWM sennosides [senna] 8.6 mg Tablet 17.2 mg PO BEDTIME dextrose [Glucose Gel] 40 % Gel 15 g PO Q15M PRN (Reason: BG < 70) Rx Instructions: until symptoms of low blood sugar are controlled famotidine 20 mg Tablet 20 mg PO BID gabapentin 800 mg Tablet 800 mg PO BEDTIME amlodipine 10 mg Tablet 10 mg PO DAILY bisacodyl [Dulcolax (bisacodyl)] 10 mg Suppository 10 mg WI DAILY PRN (Reason: Constipation) bismuth subsalicylate [Pepto-Bismol] 262 mg/15 mL Suspension 524 mg PO Q8H PRN (Reason: UPSET STOMACH/NAUSEA) losartan 25 mg Tablet 25 mg PO BEDTIME Fleet Enema 19-7 gram/118 mL Enema 118 ml WI BEDTIME PRN (Reason: Constipation) Rx Instructions: IF NO RESULT FROM DULCOLAX WITHIN 2 HOURS docusate sodium [Colace] 100 mg Capsule 100 mg PO BID lidocaine HCl 2 % Solution 15 ml PO Q3H PRN (Reason: MOUTH SORES) Rx Instructions: SWISH AND SPIT folic acid 1 mg Tablet 1 mg PO SUTUWETHFRSA bisacodyl 5 mg Tablet,Delayed Release (Dr/Ec) 5 mg PO BEDTIME PRN (Reason: Constipation) Glucagon Emergency Kit (human) 1 mg Recon Soln 1 mg SUBCUT Q20M PRN (Reason: IF BG < 70) Rx Instructions: until target blood sugar attained polyethylene glycol 3350 [Miralax] 17 gram/dose Powder 17 g PO DAILY ondansetron 4 mg Tablet,Disintegrating 4 mg PO Q8H PRN (Reason: Nausea) MTX Support 0.5-1 mg Tablet 1 tab PO MO Rx Instructions: GIVE 15 MG BY MOUTH EVERY FRIDAY FOR BULLOUS PEMPHIGUS lactulose [Enulose] 10 gram/15 mL Solution 30 ml PO DAILY zolpidem 6.25 mg Tablet,Ext Release Multiphase 6.25 mg PO BEDTIME ceramides 1,3,6-II [CeraVe] Cream 1 appl TOPICAL BID PRN (Reason: Dry Skin) melatonin 5 mg Tablet 5 mg PO BEDTIME Trulicity 0.75 mg/0.5 mL Pen Injector 0.75 mg SUBCUT QWEEK insulin glargine-yfgn 100 unit/mL Solution 5 unit SUBCUT BEDTIME Discharge Orders: Discharge Order (Routine); Ordered 11/18/23 Ordered By: Blaine Bull Diet: Advance to usual diet Activity on Discharge: As tolerated Stand Alone Forms: Patient Portal Discharge page Care Plan Goals: Resume all pre-hospital medications. Health Concerns: Add Ceftin 500 mg twice daily for 10 days to finish treatment of urinary tract infection Plan of Treatment: Resume plan of care as prior to hospitalization; further changes as per receiving facility Assessment: See discharge summary
[2023-11-18 11:26] LABS: Glucose, Whole Blood 127 mg/dL (60-115)
--- NOTE | 2023-11-18 12:18 | MHC.CM.PN ---
pts left message re dc of today [facility] transport
== END 2023-11-18 13:54 | DRG 699 ==
LOC: HO.ED 16:12 → HO.EDOVER 18:40 → HO.S3 11-17 07:48
PROVIDERS: Physician Assistant; Admitting Provider Hospitalist; Emergency Provider Emergency Medicine; PCP Family Medicine Geriatric Medicine; Referring Provider Family Medicine Geriatric Medicine; Visit Provider Hospitalist
DX: T83.511A Infection and inflammatory reaction due to indwelling urethral catheter, initial encounter (principal); L12.0 Bullous pemphigoid; N39.0 Urinary tract infection, site not specified; G35 Multiple sclerosis; I10 Essential (primary) hypertension; N40.0 Benign prostatic hyperplasia without lower urinary tract symptoms; N31.2 Flaccid neuropathic bladder, not elsewhere classified; E11.9 Type 2 diabetes mellitus without complications; Z74.01 Bed confinement status; Z87.440 Personal history of urinary (tract) infections; Z87.891 Personal history of nicotine dependence; Z79.52 Long term (current) use of systemic steroids; Z79.82 Long term (current) use of aspirin; Z79.84 Long term (current) use of oral hypoglycemic drugs; Z79.899 Other long term (current) drug therapy
CPT/HCPCS: 36415; 70450; 70496; 70498; 71045; 80048; 80053; 80307; 81001; 82550; 82947; 83605; 84484; 85025; 85610; 85730; 87040; 87086; 93005; 99285; J0696; J1650; Q9967

== ENCOUNTER → 2023-11-16 15:58 | Outpatient (BNV) | payer OTHER, SELFPAY | PROVIDERS: Admitting Provider Hospitalist; Emergency Provider Emergency Medicine; PCP Family Medicine Geriatric Medicine; Visit Provider Internal Medicine Cardiovascular Disease | DX: R94.31 Abnormal electrocardiogram [ECG] [EKG] (principal) | CPT/HCPCS: 93010 ==

== ENCOUNTER → 2023-11-16 18:14 | Outpatient (BNV) | payer OTHER, SELFPAY | PROVIDERS: Admitting Provider Hospitalist; Emergency Provider Emergency Medicine; PCP Family Medicine Geriatric Medicine; Visit Provider Hospitalist | DX: T83.511A Infection and inflammatory reaction due to indwelling urethral catheter, initial encounter (principal); N39.0 Urinary tract infection, site not specified; L12.0 Bullous pemphigoid; F19.20 Other psychoactive substance dependence, uncomplicated; E11.69 Type 2 diabetes mellitus with other specified complication | CPT/HCPCS: 99223; 99233; 99239 ==

== ENCOUNTER 2024-02-25 19:02 | Inpatient (IN) | payer OTHER, SELFPAY ==
[2024-02-25] VITALS (7 sets, daily range): BP systolic 91–120; BP diastolic 53–66; PULSE 70–96; RESP 12–18; TEMP 36.8–37.6; O2SAT 97–100; BMI 26.9
--- NOTE | 2024-02-25 | ECG_ITS ---
Test Reason : AMS Blood Pressure : / mmHG Vent. Rate : 086 BPM Atrial Rate : 086 BPM P-R Int : 152 ms QRS Dur : 106 ms QT Int : 368 ms P-R-T Axes : 061 025 034 degrees QTc Int : 440 ms Normal sinus rhythm Normal ECG When compared with ECG of 16-NOV-2023 16:27, Nonspecific T wave abnormality has replaced inverted T waves in Inferior leads Referred By: Generic ED Physician Electronically Signed By:Austen Castaneda
--- NOTE | ~2024-02-25 | CT_ITS ---
EXAMINATION: CT chest, abdomen pelvis without IV contrast. CLINICAL INDICATIONS: Chest pain, abdominal pain, distention and leukocytosis. COMPARISON: CT chest, abdomen pelvis 05/14/2021. TECHNIQUE: 5 mm thin axial and reformatted 3 mm thin sagittal and coronal images of chest, abdomen and pelvis were obtained without contrast. DLP 1200. This CT examination was performed using dose optimization technique as appropriate, variously including the following: Automated exposure control Adjustment of MA and/or KV according to patient size(this includes techniques or standardized protocols for targeted exams where dose is matched to indication/reason for exam; extremities or head. Use of iterative reconstruction techniques. FINDINGS: CHEST: LUNGS: The lungs are well-expanded with mild dependent atelectatic changes in both upper lobes and lower lobes. No consolidation, mass or pulmonary nodules seen. Mediastinum: Thyroid lobes are symmetrical and normal. The central trachea and bronchi are widely patent. Heart size and the great vessels are normal caliber. No pericardial effusion seen. There is mild coronary artery calcifications noted. No abnormal size mediastinal or hilar lymph nodes seen. Pleura: There is no pleural effusion, thickening or calcification. Axilla: No abnormal size axillary lymph nodes seen. The chest wall is unremarkable. Osseous structures: There is no aggressive lytic or sclerotic process seen. Abdomen and pelvis: Liver, ducts and gallbladder: The liver is normal size, contour and and density. No focal lesion or intrahepatic ductal dilatation seen. The gallbladder is unremarkable. Spleen: Unremarkable. Pancreas: Unremarkable. Adrenal glands: Unremarkable. Kidneys and ureters: Both kidneys are normal size,, cortical thickness and position. There is mild perinephric stranding. There are bilateral extrarenal kidney pelvises and prominent ureters extending into the bladder. No obstructive radiopaque calculi seen. Bladder: Bladder is enlarged with diffuse bladder wall thickening with low-density areas within the bladder wall findings are most suggestive of cystitis cystica/cystitis glandularis bladder appearance. There is bladder outlet obstruction secondary to enlarged prostate gland with a dilated prostatic and penile urethra. There is urinary catheter with its tip in the penile segment of the ureter. This needs to be advanced. GI tract: There is oral contrast, stool and gas seen throughout the colon without distention. The small bowel loops are normal caliber. Appendix is not visualized with certainty. No free air or free fluid seen. Lymphovascular structures: Abdominal aorta is of normal caliber. No abnormal lymph nodes seen in the retroperitoneum or pelvis. Abdominal wall: There is no evidence of hernia. Pelvis: There is diffuse mural thickening involving the rectum. Also visualized is enlarged prostate gland with centrally dilated prostatic and penile urethra with a catheter tip in the penile segment of urethra. It needs to be advanced further catheter tip to lie in the prostate gland. Osseous structures: Mild degenerative disc changes L5-S1, L3-L4 and T12-L1 disc levels CT/CT abdomen pelvis wo IV con IMPRESSION: 1. Dependent atelectatic changes in both upper and lower lobes. No acute process seen in the chest. 2. There is bladder outlet obstruction secondary to enlarged prostate gland with a dilated prostatic and penile urethra. There is a a catheter tip in the penile segment of urethra. This needs to be advanced. There is bilateral mild hydroureteronephrosis. 3. There is cystic thickening of the urinary bladder wall suggestive of cystitis cystica/cystitis glandularis. The bladder is distended. 4. There is diffuse mural thickening involving the rectum, nonspecific. Question proctitis.
--- NOTE | ~2024-02-25 | XR_ITS ---
EXAMINATION: XR CHEST CLINICAL INFORMATION: Altered mental status COMPARISON: 11/16/2023 chest radiograph as well as additional radiographs dating back to 03/22/2019 TECHNIQUE: Frontal view of the chest was obtained. FINDINGS: Lungs are hypoinflated. Heart size is within normal limits allowing for technique. There is left basilar chronic opacities/atelectasis and chronic blunting of the left costophrenic angle without change dating back to 2019. No evidence of CHF. No acute finding. XR/XR chest 1V IMPRESSION: No acute intrathoracic disease. Chronic left basilar opacities/atelectasis and chronic blunting of the left costophrenic angle.
--- NOTE | ~2024-02-25 | CT_ITS ---
EXAMINATION: CT head/brain wo IV con CLINICAL INFORMATION: Reason for Exam Altered mentation COMPARISON: CT head without contrast 11/16/2023 TECHNIQUE: Contiguous axial imaging was performed from the skull base to vertex without intravenous contrast. Sagittal and coronal reformatted images were obtained. This CT examination was performed using dose optimization techniques as appropriate, variously including the following: * Automated exposure control * Adjustment of mA and/or kV according to patient size (this includes techniques or standardized protocols for targeted exams where dose is matched to indication/reason for exam; i.e. extremities or head) Use of iterative reconstruction technique DLP: 710.52 mGy-cm FINDINGS: No acute osseous or soft tissue abnormality. The mastoids are clear. Sphenoid sinus mucosal thickening. There is no evidence of acute intracranial hemorrhage or territorial infarction. No abnormal mass effect or midline shift is seen. Talavera to white matter differentiation is well preserved. No extra-axial fluid collections are identified. No hydrocephalus. Proportional prominence of the ventricles and sulcal spaces is consistent with mild volume loss. The Patchy periventricular and deep white matter hypoattenuation is consistent with moderate small vessel ischemic changes. CT/CT head/brain wo IV con IMPRESSION: No acute intracranial abnormality including hemorrhage, mass effect, hydrocephalus, or acute territorial edematous infarction.
[2024-02-25] MEDS: 0.9 % Sodium Chloride 1,000 ML 999 ML IV ×2 (19:49→20:46)
[2024-02-25 19:52] LABS: MANUAL DIFF FLAG NO
[2024-02-25 19:56] LABS: Basophils Percent Auto 0.3 % (0-2); Eosinophils Absolute Auto 0.1 X10*3/uL (0.0-0.4); Eosinophils Percent Auto 0.7 % (0-4); Hematocrit 29.4 % (42.0-52.0); Hemoglobin 9.7 g/dl (14.0-18.0); Imm Gran Pct Auto 0.6 % (0.0-0.4); Lymphocytes Percent Auto 6.1 % (20-40); Mean Corpuscular Hemoglobin 30.3 pg (27.0-33.0); Mean Corpuscular Volume 91.9 fL (80.0-98.0); Mean Platelet Volume 9.3 fL (9.4-12.4); Monocytes Absolute Auto 0.4 X10*3/uL (0.1-1.2); Monocytes Percent Auto 2.6 % (2-11); Neutrophils Absolute Auto 14.1 x10*3/uL (2.0-8.3); Neutrophils Percent Auto 89.7 % (45-73); Platelet Count 328 X10*3/uL (160-400); Red Cell Distribution Width 18.3 % (11.0-16.0); White Blood Count 15.7 X10*3/uL (4.8-10.8)
[2024-02-25 19:59] LABS: Venous Blood Gas Refer to POC result
[2024-02-25 19:59] LABS: VBG Base Excess -0.1 mmol/L; VBG HCO3 24 mmol/L (22-26); VBG pCO2 37 mmHg; VBG pH 7.41 (7.32-7.43); VBG pO2 59 mmHg
[2024-02-25 20:02] LABS: Prothrombin Time 12.7 SEC (11.1-13.3)
[2024-02-25 20:11] LABS: Ammonia 30 umol/L (13-55)
--- NOTE | 2024-02-25 20:14 | ED_ITS ---
HPI - General Adult General Chief complaint: Altered Mental Status Stated complaint: ams,hypotension, sepsis alert per ems Time Seen by Provider: 02/25/24 19:22 History of Present Illness HPI narrative: The patient is a 78-year-old male with a history of multiple sclerosis. He lives at a local [facility] where he has lived for about 5 years. According to his he has had multiple episodes of sepsis in the last few years. He has a chronic indwelling urinary catheter. According to the patient's the patient was fine yesterday evening. The patient's son visited him and the son felt that he seemed perfectly normal yesterday. Today the patient became quite weak to the point of unresponsiveness. An ambulance was called and he was brought to the hospital. No definite report of any fevers. No vomiting. The patient is profoundly fatigued. He is denying any pain. He has not able to give any additional history. Related Data Home Medications Medication Instructions Recorded Confirmed gabapentin 300 mg capsule 300 mg PO BID@0630,1200 10/09/20 02/25/24 metformin 500 mg tablet 500 mg PO BID 10/09/20 02/25/24 tramadol 50 mg tablet 50 mg PO Q24H PRN Pain, Moderate 10/09/20 02/25/24 acetaminophen 325 mg tablet 650 mg PO Q4H PRN Moderate Pain 03/13/21 02/25/24 (Scale Score 5-6) aspirin 81 mg chewable tablet 81 mg PO DAILY 03/13/21 02/25/24 rosuvastatin 10 mg tablet 10 mg PO DAILY 03/13/21 02/25/24 guaifenesin 100 mg/5 mL oral 200 mg PO Q4H PRN Cough 05/19/21 02/25/24 liquid (Diabetic Tussin EX) prednisone 2.5 mg tablet 2.5 mg PO DAILY 05/19/21 02/25/24 amlodipine 10 mg tablet 10 mg PO DAILY 11/16/23 02/25/24 bismuth subsalicylate 262 mg/15 mL 524 mg PO Q8H PRN UPSET 11/16/23 02/25/24 oral suspension (Pepto-Bismol) STOMACH/NAUSEA ceramides 1,3,6-II (CeraVe topical 1 appl topical BID Dry Skin 11/16/23 02/25/24 cream) docusate sodium 100 mg capsule 100 mg PO BID 11/16/23 02/25/24 (Colace) famotidine 20 mg tablet 20 mg PO BID 11/16/23 02/25/24 folic acid 1 mg tablet 1 mg PO SUTUWETHFRSA 11/16/23 02/25/24 gabapentin 800 mg tablet 800 mg PO BEDTIME 11/16/23 02/25/24 insulin glargine-yfgn 100 unit/mL 5 unit subcut BEDTIME 11/16/23 02/25/24 subcutaneous solution lactulose 10 gram/15 mL oral 30 ml PO DAILY 11/16/23 02/25/24 solution (Enulose) losartan 25 mg tablet 25 mg PO BEDTIME 11/16/23 02/25/24 melatonin 5 mg tablet 5 mg PO BEDTIME PRN Insomnia 11/16/23 02/25/24 ondansetron 4 mg disintegrating 4 mg PO Q8H PRN Nausea 11/16/23 02/25/24 tablet polyethylene glycol 3350 17 17 g PO DAILY 11/16/23 02/25/24 gram/dose oral powder (Miralax) sennosides 8.6 mg tablet (senna) 17.2 mg PO BEDTIME 11/16/23 02/25/24 zolpidem 6.25 mg tablet,extended 6.25 mg PO BEDTIME 11/16/23 02/25/24 release,multiphase methotrexate sodium 2.5 mg tablet 15 mg PO MO 02/25/24 02/25/24 Previous Rx's Medication Instructions Recorded baclofen 20 mg tablet 20 mg PO TID #0 tabs 10/12/20 Allergies Allergy/AdvReac Type Severity Reaction Status Date / Time Benzodiazepines Allergy Unknown UNKNOWN Verified 04/11/21 09:47 [BENZODIAZEPINES] dalfampridine [From AMPYRA] Allergy Unknown UNKNOWN Verified 04/11/21 09:47 duloxetine [From CYMBALTA] Allergy Unknown UNKNOWN Verified 04/11/21 09:47 ezetimibe [From ZETIA] Allergy Unknown UNKNOWN Verified 04/11/21 09:47 niacin [NIACIN] Allergy Unknown UNKNOWN Verified 04/11/21 09:47 pravastatin [PRAVASTATIN] Allergy Unknown UNKNOWN Verified 04/11/21 09:47 Wbzixce-DWR-QmB Reductase Allergy Unknown UNKNOWN Verified 04/11/21 09:47 Inhibitor [[id number] REDUCTASE INHIBITOR] lorazepam [From ATIVAN] AdvReac Severe EXCESSIVE Verified 04/11/21 09:47 SEDATION doxycycline [DOXYCYCLINE] AdvReac Mild esophogeal Verified 04/11/21 09:47 iritation methylprednisolone AdvReac Mild heartburn Verified 04/11/21 09:47 [From SOLU-MEDROL] ertapenem [From INVANZ] AdvReac Unknown possible Verified 04/11/21 09:47 cause of bullous pemphigoid Review of Systems 2 Review of Systems: Yes all other systems are reviewed and are negative [facility] Past Medical History Medical History (Updated 02/25/24 @ 22:24 by SAUL Silverman) EDWARD (acute kidney injury) UTI (urinary tract infection) due to urinary indwelling Nunez catheter Bullous pemphigoid Steroid dependence Decubitus ulcer of coccygeal region, stage 2 Acute hypotension Sepsis Aspiration pneumonitis Recurrent UTI (urinary tract infection) Hypotonic neurogenic bladder Lytic lesion of bone on x-ray Wound of foot Anemia Septic shock Shoulder pain Constipation Hematuria Multiple sclerosis Depression Diabetes mellitus type 2 in obese Chronic pain syndrome BPH (benign prostatic hyperplasia) Dehydration Chronic renal failure Urinary tract infection Surgical History Hx of removal of cyst Family History Family History Family/Other Heart attack Father Diabetes Social History Social History Household Members: Other Household Members Other:: lives at [facility] [place] Housing: [facility] Housing Other:: [facility] Do you presently have visiting nurse or other home services: No Unable to assess alcohol history related to: Unable to respond Alcohol intake: never Comment: pt sedated on vent. Patient Tobacco Use Status: Former Tobacco user Cigarette Packs Per Day: 1 Advance Directives: Yes Advance Directives on File: Yes Advance Directives Date on File: 10/13/20 Nutrition Risks: No Nutritional Risk service: Yes Current occupational status: retired Physical Exam ED Vital Signs: Vital Signs - 24 hr 02/25/24 19:22 02/25/24 20:19 02/25/24 20:45 Temperature 99.7 F 98.4 F Pulse Rate 85 71 70 Respiratory Rate 18 14 12 Blood Pressure 105/53 L 91/56 L 108/54 L Pulse Oximetry 99 98 97 Oxygen Delivery Method Room Air Room Air Room Air 02/25/24 21:21 02/25/24 21:34 Temperature Pulse Rate 78 83 Respiratory Rate 13 Blood Pressure 120/60 102/56 L Pulse Oximetry 100 Oxygen Delivery Method Room Air BMI result Body Mass Index 26.9 Const Other: The patient is a very frail and chronically ill-appearing 78-year-old who looks very weak and worn. Mucous membranes look dry. He respond slightly to questions. He opens his eyes and turns his head and answers yes or no questions but then soon closes his eyes again. HENMT Other: Mucous membranes look dry Eyes Other: Pupils are small, round, equal, no scleral icterus Neck Other: No JVD Resp Effort & Inspection: normal respiratory effort Auscultation: clear to auscultation bilaterally Cardio Rate: regular rate Rhythm: regular rhythm Heart sounds: S1 normal heart sound present and S2 normal heart sound present GI Other: The patient has a large abdomen. There is no apparent tenderness. Skin Other: Skin is pale and dry Neuro Other: The patient is profoundly diffusely weak. He is also profoundly fatigued and responds only minimally to verbal stimuli. Extrem Other: The patient's legs are atrophied. He has aircushion boots on his ankles. Medications Administered Generic Name Dose Route Start Last Admin Trade Name Freq PRN Reason Stop Dose Admin Atorvastatin Calcium 40 mg 02/26/24 09:00 02/26/24 12:05 Atorvastatin Calcium 40 Mg Tablet PO 40 mg DAILY WICHO Administration Baclofen 20 mg 02/26/24 09:00 02/26/24 15:20 Baclofen 20 Mg Tablet PO 20 mg TID WICHO Administration Famotidine 20 mg 02/26/24 09:00 02/26/24 12:05 Famotidine 20 Mg Tablet PO 20 mg BID WICHO Administration Folic Acid 1 mg 02/26/24 09:00 02/26/24 12:13 Folic Acid 1 Mg Tablet PO 1 mg [id number] WICHO Administration Gabapentin 300 mg 02/26/24 06:30 02/26/24 12:05 Gabapentin 300 Mg Capsule PO 300 mg BID@0630,1200 WICHO Administration Ampicillin Sodium/Sulbactam 100 mls @ 200 mls/hr 02/25/24 22:00 02/26/24 11:30 Sodium 3 gm/ Sodium Chloride IV Infused Q12H WICHO Infusion Lactated Ringer's 1,000 mls @ 80 mls/hr 02/26/24 10:00 02/26/24 10:44 Lr IVCONT 80 mls/hr .[id number] WICHO Administration Lactulose 20 gm 02/26/24 09:00 02/26/24 12:05 Lactulose 20 Gm/30 Ml Solution PO 20 gm DAILY WICHO Administration Multi-Ingred Cream/Lotion/Oil/Oint 1 appl 02/26/24 09:00 02/26/24 12:56 Mineral Oil/Petrolatum,White 106 Gm Tube TOPICAL 1 appl BID WICHO Administration Polyethylene Glycol 17 gm 02/26/24 09:00 02/26/24 12:05 Polyethylene Glycol 3350 17 Gm Powd.Pack PO 17 gm DAILY WICHO Administration Prednisone 2.5 mg 02/26/24 09:00 02/26/24 12:56 Prednisone 2.5 Mg Tablet PO 2.5 mg DAILY WICHO Administration Sodium Chloride 3 ml 02/26/24 00:00 02/26/24 15:21 0.9 % Sodium Chloride Flush 3 Ml Syringe IVFLUSH Not Given QSHIFT WICHO Discontinued Medications Generic Name Dose Route Start Last Admin Trade Name Freq PRN Reason Stop Dose Admin Enoxaparin Sodium 30 mg 02/25/24 22:00 02/25/24 23:14 Enoxaparin Sodium 30 Mg/0.3 Ml Syringe SUBCUT 30 mg Q24H WICHO Administration Sodium Chloride 1,000 mls @ 999 mls/hr 02/25/24 19:45 02/25/24 20:53 Ns IV 02/25/24 20:45 Infused .Q1H1M WICHO Infusion Cefepime HCl 2 gm/ Sodium 50 mls @ 100 mls/hr 02/25/24 20:07 02/25/24 20:55 Chloride IV 02/25/24 20:36 Infused ONCE ONE Infusion Vancomycin HCl 2,000 mg in 500 mls @ 250 mls/hr 02/25/24 20:08 02/25/24 23:25 Vancomycin/Ns IV 02/25/24 22:07 Infused ONCE ONE Infusion Sodium Chloride 1,000 mls @ 999 mls/hr 02/25/24 20:45 02/25/24 21:50 Ns IV 02/25/24 21:45 Infused .Q1H1M WICHO Infusion Sodium Chloride 500 mls @ 500 mls/hr 02/25/24 21:15 02/25/24 23:25 Ns IV 02/25/24 22:14 Infused .Q1H WICHO Infusion Sodium Chloride 1,000 mls @ 80 mls/hr 02/25/24 22:00 02/26/24 11:05 Ns IVCONT Infused .[id number] WICHO Infusion Medical Decision Making Medical Decision Making [facility] Narrative: The patient is a 78-year-old male with multiple sclerosis who presents with 1 day of illness characterized by increasing encephalopathy. No definite [place] [address]. He has a chronic indwelling urinary catheter in his urinalysis is abnormal. I presumed that he likely had some kind of an infectious process causing his acute illness. He was treated with broad- spectrum antibiotics and IV fluids. His lactate was normal. He had some transient low blood pressures. He was given IV fluids with improvement in his blood pressures. A repeat lactate remained normal. He was admitted to the hospitalist service. Lab Data 02/26/24 07:56 02/26/24 07:56 Labs: Lab Results 02/25/24 02/25/24 02/25/24 Range/Units 19:44 19:45 19:50 WBC 15.7 H (4.8-10.8) X10*3/uL RBC 3.20 L (4.60-5.80) X10*6/uL Hgb 9.7 L (14.0-18.0) g/dl Hct 29.4 L (42.0-52.0) % MCV 91.9 (80.0-98.0) fL MCH 30.3 (27.0-33.0) pg MCHC 33.0 (31.0-36.0) g/dl RDW 18.3 H (11.0-16.0) % Plt Count 328 (160-400) X10*3/uL MPV 9.3 L (9.4-12.4) fL Immature Gran % (Auto) 0.6 H (0.0-0.4) % Neut % (Auto) 89.7 H (45-73) % Lymph % (Auto) 6.1 L (20-40) % [place] % (Auto) 2.6 (2-11) % Eos % (Auto) 0.7 (0-4) % Baso % (Auto) 0.3 (0-2) % Lymph # (Auto) 1.0 L (1.2-4.9) X10*3/uL [place] # (Auto) 0.4 (0.1-1.2) X10*3/uL Eos # (Auto) 0.1 (0.0-0.4) X10*3/uL Baso # (Auto) 0.0 (0.0-0.2) X10*3/uL Abs Immat Gran (auto) 0.10 H (0.00-0.03) X10*3/uL Absolute Neuts (auto) 14.1 H (2.0-8.3) x10*3/uL Absolute Nucleated RBC 0.000 (0.0-0.012) X10*3/uL Nucleated RBC % (auto) 0.0 (0.0-0.2) /100WBC PT 12.7 (11.1-13.3) SEC INR 1.0 (0.9-1.1) VBG pH 7.41 (7.32-7.43) VBG pCO2 37 mmHg VBG pO2 59 mmHg VBG HCO3 24 (22-26) mmol/L VBG O2 Saturation 89.0 % VBG Base Excess -0.1 mmol/L Sodium 134 L (135-145) mmol/L Potassium 4.7 (3.3-5.1) mmol/L Chloride 103 (96-108) mmol/L Carbon Dioxide 23 (22-29) mmol/L Anion Gap 13 (12-20) BUN 42 H (9-16) mg/dL Creatinine 2.57 H (0.5-1.4) mg/dL Estim Creat Clear Calc 25.2 Estimated GFR 24 Random Glucose 154 H (60-115) mg/dL Lactic Acid 1.4 (0.5-2.0) mmol/L Calcium 8.2 L D (8.4-10.2) mg/dL Magnesium 2.5 (1.6-2.6) mg/dL Total Bilirubin 0.8 (0.0-1.0) mg/dL AST 15 (5-37) U/L ALT 14 (0-40) U/L Alkaline Phosphatase 79 (39-117) U/L Ammonia 30 (13-55) umol/L Troponin I High Sens 5.6 D (<3.5-35.0) ng/L C-Reactive Protein 17.75 H (< or = 0.50) mg/dL B-Natriuretic Peptide < 10 (<100) pg/mL Total Protein 6.0 L (6.5-8.0) g/dL Albumin 3.0 L (3.5-5.0) g/dL Urine Color Urine Appearance Urine pH (5.0-9.0) Ur Specific Jewell (1.005-1.025) Urine Protein (Neg-Trace) mg/dL Urine Glucose (UA) (Negative) mg/dL Urine Ketones (Negative) mg/dL Urine Blood (Negative) Urine Nitrite (Negative) Ur Leukocyte Esterase (Negative) Urine RBC (0-2) /HPF Urine WBC (0-5) /HPF Ur Squamous Epith Cells (0-2) /HPF Urine Bacteria (None Seen) Hyaline Casts (0-2) /LPF Influenza Type A (PCR) NEGATIVE (Negative) Influenza Type B (PCR) NEGATIVE (Negative) RSV RNA Qual (PCR) NEGATIVE (Negative) SARS-CoV-2 RNA (RT-PCR) NEGATIVE (Negative) 02/25/24 Range/Units 19:54 WBC (4.8-10.8) X10*3/uL RBC (4.60-5.80) X10*6/uL Hgb (14.0-18.0) g/dl Hct (42.0-52.0) % MCV (80.0-98.0) fL MCH (27.0-33.0) pg MCHC (31.0-36.0) g/dl RDW (11.0-16.0) % Plt Count (160-400) X10*3/uL MPV (9.4-12.4) fL Immature Gran % (Auto) (0.0-0.4) % Neut % (Auto) (45-73) % Lymph % (Auto) (20-40) % [place] % (Auto) (2-11) % Eos % (Auto) (0-4) % Baso % (Auto) (0-2) % Lymph # (Auto) (1.2-4.9) X10*3/uL [place] # (Auto) (0.1-1.2) X10*3/uL Eos # (Auto) (0.0-0.4) X10*3/uL Baso # (Auto) (0.0-0.2) X10*3/uL Abs Immat Gran (auto) (0.00-0.03) X10*3/uL Absolute Neuts (auto) (2.0-8.3) x10*3/uL Absolute Nucleated RBC (0.0-0.012) X10*3/uL Nucleated RBC % (auto) (0.0-0.2) /100WBC PT (11.1-13.3) SEC INR (0.9-1.1) VBG pH (7.32-7.43) VBG pCO2 mmHg VBG pO2 mmHg VBG HCO3 (22-26) mmol/L VBG O2 Saturation % VBG Base Excess mmol/L Sodium (135-145) mmol/L Potassium (3.3-5.1) mmol/L Chloride (96-108) mmol/L Carbon Dioxide (22-29) mmol/L Anion Gap (12-20) BUN (9-16) mg/dL Creatinine (0.5-1.4) mg/dL Estim Creat Clear Calc Estimated GFR Random Glucose (60-115) mg/dL Lactic Acid (0.5-2.0) mmol/L Calcium (8.4-10.2) mg/dL Magnesium (1.6-2.6) mg/dL Total Bilirubin (0.0-1.0) mg/dL AST (5-37) U/L ALT (0-40) U/L Alkaline Phosphatase (39-117) U/L Ammonia (13-55) umol/L Troponin I High Sens (<3.5-35.0) ng/L C-Reactive Protein (< or = 0.50) mg/dL B-Natriuretic Peptide (<100) pg/mL Total Protein (6.5-8.0) g/dL Albumin (3.5-5.0) g/dL Urine Color Yellow Urine Appearance Turbid Urine pH >= 9.0 (5.0-9.0) Ur Specific Jewell 1.015 (1.005-1.025) Urine Protein 300 (3+) H (Neg-Trace) mg/dL Urine Glucose (UA) Negative (Negative) mg/dL Urine Ketones Negative (Negative) mg/dL Urine Blood Small (1+) H (Negative) Urine Nitrite Negative (Negative) Ur Leukocyte Esterase Large (3+) H (Negative) Urine RBC 6-10 H (0-2) /HPF Urine WBC 21-50 H (0-5) /HPF Ur Squamous Epith Cells 0-2 (0-2) /HPF Urine Bacteria 4+ (None Seen) Hyaline Casts 0-2 (0-2) /LPF Influenza Type A (PCR) (Negative) Influenza Type B (PCR) (Negative) RSV RNA Qual (PCR) (Negative) SARS-CoV-2 RNA (RT-PCR) (Negative) Independent Interpretation I performed an independent interpretation of an: EKG Interpretation: EKG at 19:22 shows normal sinus rhythm at 86 beats per minute. Unremarkable EKG. Critical Care Time Critical Care Time Critical Care Time: Yes Total Critical Care Time: 45 Attestation: The patient was critically ill with a high probability of imminent or life- threatening deterioration. ?I spent greater than 30 minutes of discontinuous time evaluating the patient, delivering critical care at the bedside, discussing evaluating data with consultants. ?Critical care time does not include time spent performing separately billable procedures or teaching. ?Time spent performing critical care with 45 minutes. Discharge Plan Discharge Clinical Impression: Acute metabolic encephalopathy, Urinary tract infection in elderly patient Patient Disposition: Admitted As Inpatient
[2024-02-25 20:15] LABS: Lactic Acid 1.4 mmol/L (0.5-2.0)
[2024-02-25 20:17] LABS: Alanine Aminotransferase 14 U/L (0-40); Alkaline Phosphatase 79 U/L (39-117); Anion Gap 13 (12-20); Aspartate Amino Transferase 15 U/L (5-37); Bilirubin Total 0.8 mg/dL (0.0-1.0); Blood Urea Nitrogen 42 mg/dL (9-16); C Reactive Protein 17.75 mg/dL (< or = 0.50); Calcium 8.2 mg/dL (8.4-10.2); Carbon Dioxide 23 mmol/L (22-29); Chloride 103 mmol/L (96-108); Creatinine Clr Calc Pharmacy 25.2; Estimated Glomerular Filt Rate 24; Glucose Random 154 mg/dL (60-115); Magnesium 2.5 mg/dL (1.6-2.6); Potassium 4.7 mmol/L (3.3-5.1); Sodium 134 mmol/L (135-145)
[2024-02-25 20:21] LABS: B Type Natriuretic Peptide < 10 pg/mL (<100)
[2024-02-25 20:25] LABS: Troponin-I High Sensitivity 5.6 ng/L (<3.5-35.0)
[2024-02-25] MEDS: cefEPime HCl 2 GM in 0.9 % Sodium Chloride 50 ML IV (20:25)
[2024-02-25 20:30] LABS: Appearance Urine Turbid; Color Urine Yellow; Glucose Urine UA Negative (Negative); Leukocyte Esterase Urine Large (3+) (Negative); Nitrite Urine Negative (Negative); PH >= 9.0 (5.0-9.0); Specific Gravity - Urine 1.015 (1.005-1.025); UMIC TRIGGER UACC YES; Urine Blood Small (1+) (Negative); Urine Ketones Negative (Negative); Urine Protein 300 (3+) mg/dL (Neg-Trace)
[2024-02-25] MEDS: vancomycin/NS 2,000 MG/500 ML PLAST..BAG 250 MG IV (20:47)
--- NOTE | 2024-02-25 20:50 | PHA.MEDREC ---
Pharmacy Consult ? Medication Reconciliation Pharmacy has completed the medication reconciliation. Patient from [facility] with med list. Jeannette Lr, IgnacioD
[2024-02-25 20:54] LABS: Influenza A PCR NEGATIVE (Negative); Influenza B PCR NEGATIVE (Negative); Resp Syncy Virus RNA Qual PCR NEGATIVE (Negative); SARS COV2 PCR INHOUSE NEGATIVE (Negative)
[2024-02-25 21:12] LABS: Bacteria Urine 4+ (None Seen); Hyaline Casts Urine 0-2 /LPF (0-2); Squamous Epithelial Cell Urine 0-2 /HPF (0-2); UACC Culture Trigger YES; WBC Urine 21-50 /HPF (0-5)
[2024-02-25] MEDS: 0.9 % Sodium Chloride 500 ML IV (21:35)
--- NOTE | 2024-02-25 21:56 | PM.IMHP ---
History of Present Illness Date of Service: 02/25/24 Attending physician on admission: Jennifer Felix Chief Complaint: ams 78-year-old gentleman with past medical history of MS chronically bed-bound, bullous pemphigoid on chronic steroids, with chronic bilateral lower extremity weakness, BPH, depression, type 2 diabetes mellitus on insulin, crohns, chronic UTIs (pansensitve proteus) with indwelling Nunez catheter resident of nursing facility presented to the ED earlier today after being found lethargic, weak, minimally responsive today. His who regularly visits her at [facility] reports yesterday patient was baseline (a&ox3). On exam patient is somnolent but arousable, knows his name but continues repeating his name when asked other questions. No reported fevers, chills. No vomiting or diarrhea. Pt unable to provide further history. Since arrival blood pressures have been soft but no hypotension. Blood pressure on admission 120/60. Vitals otherwise stable. There is a leukocytosis of 15.7 with slight left shift. Stable normocytic anemia with H/H 9.7/29.4%. Creatinine 2.57, baseline 0.69. BUN 42. Sodium 134, electrolyte levels otherwise normal. Glucose 154. Initial lactic acid 1.4, repeat pending. Ammonia level 30. Troponin 5.6, BNP undetectable. CRP 17.75. Urinalysis with 3+ leukocytes, negative nitrites, 1+ blood, positive urinary sediment, 4+ bacteria. Negative for COVID-19, influenza, RSV. Chest x-ray negative for acute intrathoracic disease but shows chronic left basilar opacity/atelectasis and chronic blunting of the left costophrenic angle. EKG shows NSR, rate [address]/T-wave abnormality. In ED, has received 2 g cefepime, vancomycin, and 2.5 L IV NS. Review of Systems Review of Systems: Yes Unobtainable due to mental status [facility] Medical History (Updated 02/25/24 @ 22:24 by SAUL Silverman) EDWARD (acute kidney injury) UTI (urinary tract infection) due to urinary indwelling Nunez catheter Bullous pemphigoid Steroid dependence Decubitus ulcer of coccygeal region, stage 2 Acute hypotension Sepsis Aspiration pneumonitis Recurrent UTI (urinary tract infection) Hypotonic neurogenic bladder Lytic lesion of bone on x-ray Wound of foot Anemia Septic shock Shoulder pain Constipation Hematuria Multiple sclerosis Depression Diabetes mellitus type 2 in obese Chronic pain syndrome BPH (benign prostatic hyperplasia) Dehydration Chronic renal failure Urinary tract infection Family History Family/Other Heart attack Father Diabetes Surgical History Hx of removal of cyst Social History Household Members: Other Household Members Other:: lives at [facility] on [address] in [place] Housing: Penitentiary Housing Other:: [facility] Do you presently have visiting nurse or other home services: No Unable to assess alcohol history related to: Unable to respond Alcohol intake: never Comment: pt sedated on vent. Patient Tobacco Use Status: Former Tobacco user Cigarette Packs Per Day: 1 Advance Directives: Yes Advance Directives on File: Yes Advance Directives Date on File: 10/13/20 service: Yes Current occupational status: retired [employer] Allergies Allergy/AdvReac Type Severity Reaction Status Date / Time Benzodiazepines Allergy Unknown UNKNOWN Verified 04/11/21 09:47 [BENZODIAZEPINES] dalfampridine [From AMPYRA] Allergy Unknown UNKNOWN Verified 04/11/21 09:47 duloxetine [From CYMBALTA] Allergy Unknown UNKNOWN Verified 04/11/21 09:47 ezetimibe [From ZETIA] Allergy Unknown UNKNOWN Verified 04/11/21 09:47 niacin [NIACIN] Allergy Unknown UNKNOWN Verified 04/11/21 09:47 pravastatin [PRAVASTATIN] Allergy Unknown UNKNOWN Verified 04/11/21 09:47 [id number] Reductase Allergy Unknown UNKNOWN Verified 04/11/21 09:47 Inhibitor [[id number] REDUCTASE INHIBITOR] lorazepam [From ATIVAN] AdvReac Severe EXCESSIVE Verified 04/11/21 09:47 SEDATION doxycycline [DOXYCYCLINE] AdvReac Mild esophogeal Verified 04/11/21 09:47 iritation methylprednisolone AdvReac Mild heartburn Verified 04/11/21 09:47 [From SOLU-MEDROL] ertapenem [From INVANZ] AdvReac Unknown possible Verified 04/11/21 09:47 cause of bullous pemphigoid Active Medications: Current Medications Vancomycin HCl (Vancomycin/Ns) 2,000 mg in 500 mls @ 250 mls/hr IV ONCE ONE Stop: 02/25/24 22:07 Last Admin: 02/25/24 20:47 Dose: 250 mls/hr Sodium Chloride (Ns) 500 mls @ 500 mls/hr IV .Q1H WICHO Stop: 02/25/24 22:14 Last Admin: 02/25/24 21:35 Dose: 500 mls/hr Home Medications Medication Instructions Recorded Confirmed Last Taken Type gabapentin 300 mg capsule 300 mg PO BID@0630,1200 10/09/20 02/25/24 Unknown History metformin 500 mg tablet 500 mg PO BID 10/09/20 02/25/24 Unknown History tramadol 50 mg tablet 50 mg PO Q24H PRN Pain, Moderate 10/09/20 02/25/24 Unknown History acetaminophen 325 mg tablet 650 mg PO Q4H PRN Moderate Pain 03/13/21 02/25/24 Unknown History (Scale Score 5-6) aspirin 81 mg chewable tablet 81 mg PO DAILY 03/13/21 02/25/24 Unknown History rosuvastatin 10 mg tablet 10 mg PO DAILY 03/13/21 02/25/24 Unknown History guaifenesin 100 mg/5 mL oral 200 mg PO Q4H PRN Cough 05/19/21 02/25/24 Unknown History liquid (Diabetic Tussin EX) prednisone 2.5 mg tablet 2.5 mg PO DAILY 05/19/21 02/25/24 Unknown History amlodipine 10 mg tablet 10 mg PO DAILY 11/16/23 02/25/24 Unknown History bismuth subsalicylate 262 mg/15 mL 524 mg PO Q8H PRN UPSET 11/16/23 02/25/24 Unknown History oral suspension (Pepto-Bismol) STOMACH/NAUSEA ceramides 1,3,6-II (CeraVe topical 1 appl topical BID Dry Skin 11/16/23 02/25/24 Unknown History cream) docusate sodium 100 mg capsule 100 mg PO BID 11/16/23 02/25/24 Unknown History (Colace) famotidine 20 mg tablet 20 mg PO BID 11/16/23 02/25/24 Unknown History folic acid 1 mg tablet 1 mg PO SUTUWETHFRSA 11/16/23 02/25/24 Unknown History gabapentin 800 mg tablet 800 mg PO BEDTIME 11/16/23 02/25/24 Unknown History insulin glargine-yfgn 100 unit/mL 5 unit subcut BEDTIME 11/16/23 02/25/24 Unknown History subcutaneous solution lactulose 10 gram/15 mL oral 30 ml PO DAILY 11/16/23 02/25/24 Unknown History solution (Enulose) losartan 25 mg tablet 25 mg PO BEDTIME 11/16/23 02/25/24 Unknown History melatonin 5 mg tablet 5 mg PO BEDTIME PRN Insomnia 11/16/23 02/25/24 Unknown History ondansetron 4 mg disintegrating 4 mg PO Q8H PRN Nausea 11/16/23 02/25/24 Unknown History tablet polyethylene glycol 3350 17 17 g PO DAILY 11/16/23 02/25/24 Unknown History gram/dose oral powder (Miralax) sennosides 8.6 mg tablet (senna) 17.2 mg PO BEDTIME 11/16/23 02/25/24 Unknown History zolpidem 6.25 mg tablet,extended 6.25 mg PO BEDTIME 11/16/23 02/25/24 Unknown History release,multiphase methotrexate sodium 2.5 mg tablet 15 mg PO MO 02/25/24 02/25/24 Unknown History Physical Exam Vital Signs and Narrative: Vital Signs: Last Vital Signs Temp 98.4 F 02/25/24 20:19 Pulse 83 02/25/24 21:34 Resp 13 02/25/24 21:34 BP 102/56 L 02/25/24 21:34 Pulse Ox 100 02/25/24 21:34 O2 Del Method Room Air 02/25/24 21:34 BMI result Body Mass Index 26.9 Constitutional - somnolent but arousable, drooling with salivary secretions on floor, No apparent distress Eyes - PERRLA, EOMI Cardiovascular - S1S2, RRR, No edema Respiratory - Normal lung expansion, Normal respiratory effort, No respiratory distress, rhonchi crackles L lung and R base Gastrointestinal - moderately distension with diffuse ttp, with voluntary guarding or rebound. +BS. Pt not answering questions appropriately but does state ouch with palpation of abdomen Extremities - no calf tenderness bilaterally, no swelling Skin - Warm/Dry. Stage 2 decubitus ulcer coccyx with small amount of purulent drainage and surrounding erythema Neurological - somnolent but arousable, oriented to self only, reports he is in a shelter and otherwise keeps repeating his name when asked questions Psychological - Appropriate affect Results Labs 02/25/24 19:44 02/25/24 19:44 Labs: Laboratory Results - last 24 hr 02/25/24 02/25/24 02/25/24 19:44 19:45 19:50 MCV 91.9 MCH 30.3 MCHC 33.0 RDW 18.3 H Plt Count 328 MPV 9.3 L Immature Gran % (Auto) 0.6 H Neut % (Auto) 89.7 H Lymph % (Auto) 6.1 L Sunflower % (Auto) 2.6 Eos % (Auto) 0.7 Baso % (Auto) 0.3 Lymph # (Auto) 1.0 L Sunflower # (Auto) 0.4 Eos # (Auto) 0.1 Baso # (Auto) 0.0 Abs Immat Gran (auto) 0.10 H Absolute Neuts (auto) 14.1 H Absolute Nucleated RBC 0.000 Nucleated RBC % (auto) 0.0 PT 12.7 INR 1.0 VBG pH 7.41 VBG pCO2 37 VBG pO2 59 VBG HCO3 24 VBG O2 Saturation 89.0 VBG Base Excess -0.1 Anion Gap 13 Estim Creat Clear Calc 25.2 Estimated GFR 24 Random Glucose 154 H Lactic Acid 1.4 Calcium 8.2 L D Magnesium 2.5 Total Bilirubin 0.8 AST 15 ALT 14 Alkaline Phosphatase 79 Ammonia 30 Troponin I High Sens 5.6 D C-Reactive Protein 17.75 H B-Natriuretic Peptide < 10 Total Protein 6.0 L Albumin 3.0 L Urine Color Urine Appearance Urine pH Ur Specific [place] Urine Protein Urine Glucose (UA) Urine Ketones Urine Blood Urine Nitrite Ur Leukocyte Esterase Urine RBC Urine WBC Ur Squamous Epith Cells Urine Bacteria Hyaline Casts Influenza Type A (PCR) NEGATIVE Influenza Type B (PCR) NEGATIVE RSV RNA Qual (PCR) NEGATIVE SARS-CoV-2 RNA (RT-PCR) NEGATIVE 02/25/24 19:54 MCV MCH MCHC RDW Plt Count MPV Immature Gran % (Auto) Neut % (Auto) Lymph % (Auto) Sunflower % (Auto) Eos % (Auto) Baso % (Auto) Lymph # (Auto) Sunflower # (Auto) Eos # (Auto) Baso # (Auto) Abs Immat Gran (auto) Absolute Neuts (auto) Absolute Nucleated RBC Nucleated RBC % (auto) PT INR VBG pH VBG pCO2 VBG pO2 VBG HCO3 VBG O2 Saturation VBG Base Excess Anion Gap Estim Creat Clear Calc Estimated GFR Random Glucose Lactic Acid Calcium Magnesium Total Bilirubin AST ALT Alkaline Phosphatase Ammonia Troponin I High Sens C-Reactive Protein B-Natriuretic Peptide Total Protein Albumin Urine Color Yellow Urine Appearance Turbid Urine pH >= 9.0 Ur Specific [place] 1.015 Urine Protein 300 (3+) H Urine Glucose (UA) Negative Urine Ketones Negative Urine Blood Small (1+) H Urine Nitrite Negative Ur Leukocyte Esterase Large (3+) H Urine RBC 6-10 H Urine WBC 21-50 H Ur Squamous Epith Cells 0-2 Urine Bacteria 4+ Hyaline Casts 0-2 Influenza Type A (PCR) Influenza Type B (PCR) RSV RNA Qual (PCR) SARS-CoV-2 RNA (RT-PCR) Imaging Radiologist's Impressions: Impressions Chest X-Ray 02/25/24 19:40 IMPRESSION: No acute intrathoracic disease. Chronic left basilar opacities/atelectasis and chronic blunting of the left costophrenic angle. Assessment and Plan (1) UTI (urinary tract infection) due to urinary indwelling Nunez catheter: Qualifiers: Indwelling urinary catheter type: indwelling urethral catheter Status: Resolved (2) Acute metabolic encephalopathy: Status: Acute (3) Aspiration into airway: Status: Acute (4) EDWARD (acute kidney injury): Status: Resolved (5) Decubitus ulcer of coccygeal region, stage 2: Status: Acute Plan 78-year-old gentleman with past medical history of MS chronically bed-bound, bullous pemphigoid on chronic steroids, with chronic bilateral lower extremity weakness, BPH, depression, type 2 diabetes mellitus on insulin, crohns, chronic UTIs (pansensitve proteus) with indwelling Nunez catheter resident of nursing facility admitted for further management of acute metabolic encephalopathy related to infection likely UTI, possible aspiration pneumonia, and cellulitis coccygeal ulcer as well as acute kidney injury #Acute metabolic encephalopathy -suspect r/t infection. Plan as below -no uremia, ammonia normal -head ct pending -baseline a&o x 3. Monitor mentation #Acute kidney injury- etiology unclear, possibly prerenal due to decreased PO intake secondary to encephalopathy -CT abd/pelvis pending -urine studies pending -has received 2.5L IVF. Continue gentle IVF given NPO status -avoid nephrotoxins -strict i&o -follow renal function/lytes #Nunez catheter associated UTI -Leukocytosis 15.9, no other SIRS criteria -UA with 3+ leukocytes, 1+ blood, negative nitrites, positive urinary sediment, 4+ bacteria -history of pansensitive Proteus UTI -IV Unasyn (given suspicion for aspiration pneumonia as well. Initiated 02/24) -follow CBC, cultures -continue Nunez catheter #Suspected aspiration pneumonia -CXR shows chronic left basilar opacity/atelectasis and chronic blunting of the left costophrenic angle. Rhonchi/crackles noted on exam -CT chest pending -IV Unasyn (initiated 02/24) -keep NPO for now, [employer]GER evaluation pending #stage 2 decubitus ulcer coccyx with purulent cellulitis -CRP 17, leukocytosis 15.7. No other SIRS criteria -wound culture ordered -IV vancomycin -wound RN consult # insulin-dependent type 2 diabetes -POC glucose, advanced to diabetic diet -patient on 5 units basal insulin. Hold for now given NPO status. Hold sliding scale insulin. Resume once diet advances as mentation improves # MS -bed-bound at baseline -continue home meds # bullous pemphigoid -continue prednisone. Hold methotrexate in setting of acute infection # hypertension -blood pressure is soft. Hold amlodipine. Hold losartan in setting of EDWARD -monitor blood pressures dvt prophylaxis- renally adjusted Lovenox Full code per MOLST form Healthcare proxy, Alyx Patient requires inpatient stay at least 2 midnights for management of acute metabolic encephalopathy secondary to multiple infections including UTI, possible aspiration pneumonia, infected coccygeal ulcer as well as acute kidney injury requiring IV antibiotics, IV fluid resuscitation and close monitoring of mentation as well as renal function and electrolyte levels Quality Stroke Does the patient have a stroke diagnosis?: No VTE Prior VTE?: No VTE Risk Level:: Medical - moderate - high VTE Device Contraindication: Treatment Not Indicated VTE Drug Contraindication: N/A - Med Ordered
[2024-02-25 22:19] LABS: Lactic Acid 1.9 mmol/L (0.5-2.0)
--- NOTE | 2024-02-25 22:26 | PHA.PROG ---
Admission Date/Time: February 25, 2024 21:52 Indication: skin Weight in k kg Adjusted body weight in K.8 [place] body weight in K Obesity Dosing Indication % IBW: 116% Serum Creatinine - Last 168 Hours 02/25/24 19:44 Creatinine 2.57 H Estimated CrCl and GFR - Last 168 Hours 02/25/24 19:44 Estim Creat Clear Calc 25.2 Estimated GFR 24 Vancomycin Loading Dose: 2000 mg Current Vancomycin Dosing Regimen: 750 mg Q24H Date and Time for next Vancomycin Level to be drawn: 02/26 @ 1900 Pharmacist Comments on Vancomycin Plan: Patient received an adequate load dose in the ER 02/24 @ 2046 Maitenenace dose vanco 750 mg Q24H is scheduled to start 02/25 @ 2100. Predicted AUC 512 with a trough of 17.8 level to be drawn prior to 3rd dose to access for safety due to patient's poor renal function Pharmacy will monitor renal fucntion daily. Jeannette Lr, William Vancomycin dosing will take advantage of utoopia as a clinical decision support tool that uses Bayesian modeling to calculate individual patient's pharmacokinetic parameters and forecast the patient's drug concentration time course with the target goal AUC 24 range of 400 - 600 mg/L/hr.
[2024-02-25] MEDS: 0.9 % Sodium Chloride 1,000 ML 80 ML IVCONT (23:14)
[2024-02-25] MEDS: Ampicillin Sodium/Sulbactam Na 3 GM in 0.9 % Sodium Chloride 100 ML IV (23:14)
[2024-02-25] MEDS: Enoxaparin Sodium 30 MG/0.3 ML SYRINGE SUBCUT (23:14)
[2024-02-25 23:24] LABS: Creatinine Urine 40.68 mg/dL
[2024-02-26] VITALS (8 sets, daily range): BP systolic 108–161; BP diastolic 58–82; PULSE 79–112; RESP 12–20; TEMP 36.4–36.7; O2SAT 95–100
--- NOTE | 2024-02-26 05:51 | PC.NURSE ---
down time from [id number]
--- NOTE | 2024-02-26 05:58 | PM.EVENT ---
Event Note Date of Service: 02/26/24 Event Note: Patient with hematuria overnight. No clots, defer CBI for now. Hold Lovenox, aspirin. Consulting Urology, appreciate assistance Time Spent With Patient Time: Total time managing care of this patient today ____ minutes.
--- NOTE | 2024-02-26 05:59 | PC.NURSE ---
pt output 70ml of hematuria w/o clots. Provider made aware and contacting urology. vitals stable, pt more alert
--- NOTE | 2024-02-26 06:33 | PC.NURSE ---
from [facility] , AMS increasing since today per family. According to hx of sepsis and per facility, pt has been lethargic and AMS more so today. Nunez placed prior to arrival . Pt has hx of MS, dementia, DM2, UTI, CRF wounds of foot, neurogenic bladder. DX uti, bun 42, creatinine 2.57 Pt output 700 of clear hematuria at 0612, hospitalist made aware and urology consult. Pt received antibiotics and fluids here in ED. IV assess 20 in R forearm, 22 L wrist.
[2024-02-26 07:17] LABS: Glucose, Whole Blood 100 mg/dL (60-115)
[2024-02-26 08:08] LABS: MANUAL DIFF FLAG NO
[2024-02-26 08:25] LABS: Anion Gap 14 (12-20); Basophils Percent Auto 0.2 % (0-2); Blood Urea Nitrogen 35 mg/dL (9-16); Calcium 8.4 mg/dL (8.4-10.2); Carbon Dioxide 18 mmol/L (22-29); Chloride 110 mmol/L (96-108); Creatinine Clr Calc Pharmacy 40.8; Eosinophils Absolute Auto 0.2 X10*3/uL (0.0-0.4); Eosinophils Percent Auto 1.6 % (0-4); Estimated Glomerular Filt Rate 43; Glucose Random 107 mg/dL (60-115); Hematocrit 30.2 % (42.0-52.0); Hemoglobin 9.9 g/dl (14.0-18.0); Imm Gran Abs Auto 0.06 X10*3/uL (0.00-0.03); Imm Gran Pct Auto 0.5 % (0.0-0.4); Lymphocytes Absolute Auto 0.7 X10*3/uL (1.2-4.9); Mean Corpuscular HGB Conc 32.8 g/dl (31.0-36.0); Mean Corpuscular Hemoglobin 30.8 pg (27.0-33.0); Mean Corpuscular Volume 94.1 fL (80.0-98.0); Mean Platelet Volume 9.6 fL (9.4-12.4); Monocytes Absolute Auto 0.3 X10*3/uL (0.1-1.2); Monocytes Percent Auto 2.1 % (2-11); Neutrophils Percent Auto 89.6 % (45-73); Platelet Count 271 X10*3/uL (160-400); Potassium 4.2 mmol/L (3.3-5.1); Red Blood Count 3.21 X10*6/uL (4.60-5.80); Red Cell Distribution Width 18.5 % (11.0-16.0); Sodium 138 mmol/L (135-145); White Blood Count 12.2 X10*3/uL (4.8-10.8)
--- NOTE | 2024-02-26 09:28 | PC.NURSE ---
tigered dr ho about the pt's npo order, order is stating that pt may have pills but pt also states pt is being admitted for questing aspiration pneumonia and pt is still drowsy and no order for swallow evaluation has been ordered md states he will order the swallow evaluation and to hold the meds until then
--- NOTE | 2024-02-26 09:39 | P.PNIM_ITS ---
Subjective Subjective Date of Service: 02/26/24 Interval History: f/u on acute metabolic encephalopathy, UTI, interval history: he is frail weak, confused, vitals are stable, no able to have conversation, no in distress Physical Exam 2 Vital Signs: Vital Signs: Last Vital Signs Temp 98.0 F 02/26/24 05:52 Pulse 98 02/26/24 06:03 Resp 16 02/26/24 06:03 BP 129/61 02/26/24 06:03 Pulse Ox 97 02/26/24 06:03 O2 Del Method Room Air 02/26/24 06:03 BMI result Body Mass Index 26.9 Constitutional - awake, confused, No apparent distress Cardiovascular - S1S2, RRR, No edema Respiratory - Normal lung expansion, Normal respiratory effort, No respiratory distress, rhonchi crackles L lung and R base Gastrointestinal -mild distention, no signs of tenderness Extremities - no calf tenderness bilaterally, no swelling Skin - Warm/Dry. Stage 2 decubitus ulcer coccyx with small amount of purulent drainage and surrounding erythema, multiple scabs on legs Neurological -awake but easily becomes drowosy, oriented to self only, Psychological -flat affect Objective Data Active Medications Acetaminophen (Acetaminophen 325 Mg Tablet) 650 mg PO Q6H PRN PRN Reason: Pain, Mild (Pain Scale 1-3) Atorvastatin Calcium (Atorvastatin Calcium 40 Mg Tablet) 40 mg PO DAILY [facility] Baclofen (Baclofen 20 Mg Tablet) 20 mg PO TID [facility] Bismuth Subsalicylate (Bismuth Subsalicylate Liquid 524 Mg/30 Ml Oral.Susp) 524 mg PO Q8H PRN PRN Reason: UPSET STOMACH/NAUSEA Dextrose (Dextrose 50 % 25 Gm/50 Ml Syringe) 25 gm IVPUSH Q15M PRN; Protocol PRN Reason: per Hypoglycemia Standing Ord. Famotidine (Famotidine 20 Mg Tablet) 20 mg PO BID [facility] Folic Acid (Folic Acid 1 Mg Tablet) 1 mg PO SuTuWeThFrSa@0900 [facility] Gabapentin (Gabapentin 300 Mg Capsule) 300 mg PO BID@0630,1200 [facility] Last Admin: 02/26/24 06:33 Dose: Not Given Documented By: AZEEM Non-Admin Reason: Patient Condition Contraindication Gabapentin (Gabapentin 400 Mg Capsule) 800 mg PO BEDTIME [facility] Glucose (Glucose Gel 15 Gm Gel..Gram.) 15 gm PO Q15M PRN; Protocol PRN Reason: per Hypoglycemia Standing Ord. Guaifenesin (Guaifenesin 100 Mg/5 Ml Liquid) 10 ml PO Q4H PRN PRN Reason: Cough Sodium Chloride (Ns) 1,000 mls @ 80 mls/hr IVCONT .[id number] [facility] Last Admin: 02/25/24 23:14 Dose: 80 mls/hr Documented By: AZEEM Ampicillin Sodium/Sulbactam (Sodium 3 gm/ Sodium Chloride) 100 mls @ 200 mls/hr IV Q12H [facility] Last Infusion: 02/26/24 00:08 Dose: Infused Documented By: AZEEM Vancomycin HCl 750 mg/ Sodium (Chloride) 265 mls @ 265 mls/hr IV Q24H [facility] Lactulose (Lactulose 20 Gm/30 Ml Solution) 20 gm PO DAILY [facility] Melatonin (Melatonin 3 Mg Tablet) 6 mg PO BEDTIME PRN PRN Reason: Insomnia Multi-Ingred Cream/Lotion/Oil/Oint (Mineral Oil/Petrolatum,White 106 Gm Tube) 1 appl TOPICAL BID [facility] Ondansetron HCl (Ondansetron Hcl 4 Mg/2 Ml Vial) 4 mg IVPUSH Q8H PRN PRN Reason: Nausea and Vomiting Pharmacy Consult (Consult Rx Vancomycin Dosing) 1 each MISCELLANE DAILY PRN PRN Reason: Consult order Polyethylene Glycol (Polyethylene Glycol 3350 17 Gm Powd.Pack) 17 gm PO DAILY [facility] Prednisone (Prednisone 2.5 Mg Tablet) 2.5 mg PO DAILY [facility] Senna (Sennosides 8.6 Mg Tablet) 17.2 mg PO BEDTIME [facility] Sodium Chloride (0.9 % Sodium Chloride Flush 3 Ml Syringe) 3 ml IVFLUSH QSHIFT [facility] Last Admin: 02/26/24 00:12 Dose: Not Given Documented By: AZEEM Non-Admin Reason: IV Running Zolpidem Tartrate (Zolpidem Tartrate 5 Mg Tablet) 5 mg PO BEDTIME [facility] Labs 02/26/24 07:56 02/26/24 07:56 Labs: Laboratory Results - last 24 hr 02/25/24 02/25/24 02/25/24 19:44 19:45 19:50 MCV 91.9 MCH 30.3 MCHC 33.0 RDW 18.3 H Plt Count 328 MPV 9.3 L Immature Gran % (Auto) 0.6 H Neut % (Auto) 89.7 H Lymph % (Auto) 6.1 L [place] % (Auto) 2.6 Eos % (Auto) 0.7 Baso % (Auto) 0.3 Lymph # (Auto) 1.0 L [place] # (Auto) 0.4 Eos # (Auto) 0.1 Baso # (Auto) 0.0 Abs Immat Gran (auto) 0.10 H Absolute Neuts (auto) 14.1 H Absolute Nucleated RBC 0.000 Nucleated RBC % (auto) 0.0 PT 12.7 INR 1.0 VBG pH 7.41 VBG pCO2 37 VBG pO2 59 VBG HCO3 24 VBG O2 Saturation 89.0 VBG Base Excess -0.1 Anion Gap 13 Estim Creat Clear Calc 25.2 Estimated GFR 24 POC Glucose Random Glucose 154 H Lactic Acid 1.4 Calcium 8.2 L D Magnesium 2.5 Total Bilirubin 0.8 AST 15 ALT 14 Alkaline Phosphatase 79 Ammonia 30 Troponin I High Sens 5.6 D C-Reactive Protein 17.75 H B-Natriuretic Peptide < 10 Total Protein 6.0 L Albumin 3.0 L Urine Color Urine Appearance Urine pH Ur Specific [place] Urine Protein Urine Glucose (UA) Urine Ketones Urine Blood Urine Nitrite Ur Leukocyte Esterase Urine RBC Urine WBC Ur Squamous Epith Cells Urine Bacteria Hyaline Casts Ur Random Sodium Urine Creatinine Influenza Type A (PCR) NEGATIVE Influenza Type B (PCR) NEGATIVE RSV RNA Qual (PCR) NEGATIVE SARS-CoV-2 RNA (RT-PCR) NEGATIVE 02/25/24 02/25/24 02/25/24 19:54 21:56 22:53 MCV MCH MCHC RDW Plt Count MPV Immature Gran % (Auto) Neut % (Auto) Lymph % (Auto) [place] % (Auto) Eos % (Auto) Baso % (Auto) Lymph # (Auto) [place] # (Auto) Eos # (Auto) Baso # (Auto) Abs Immat Gran (auto) Absolute Neuts (auto) Absolute Nucleated RBC Nucleated RBC % (auto) PT INR VBG pH VBG pCO2 VBG pO2 VBG HCO3 VBG O2 Saturation VBG Base Excess Anion Gap Estim Creat Clear Calc Estimated GFR POC Glucose Random Glucose Lactic Acid 1.9 Calcium Magnesium Total Bilirubin AST ALT Alkaline Phosphatase Ammonia Troponin I High Sens C-Reactive Protein B-Natriuretic Peptide Total Protein Albumin Urine Color Yellow Urine Appearance Turbid Urine pH >= 9.0 Ur Specific [place] 1.015 Urine Protein 300 (3+) H Urine Glucose (UA) Negative Urine Ketones Negative Urine Blood Small (1+) H Urine Nitrite Negative Ur Leukocyte Esterase Large (3+) H Urine RBC 6-10 H Urine WBC 21-50 H Ur Squamous Epith Cells 0-2 Urine Bacteria 4+ Hyaline Casts 0-2 Ur Random Sodium 65.0 Urine Creatinine 40.68 Influenza Type A (PCR) Influenza Type B (PCR) RSV RNA Qual (PCR) SARS-CoV-2 RNA (RT-PCR) 02/26/24 02/26/24 07:14 07:56 MCV 94.1 MCH 30.8 MCHC 32.8 RDW 18.5 H Plt Count 271 MPV 9.6 Immature Gran % (Auto) 0.5 H Neut % (Auto) 89.6 H Lymph % (Auto) 6.0 L [place] % (Auto) 2.1 Eos % (Auto) 1.6 Baso % (Auto) 0.2 Lymph # (Auto) 0.7 L [place] # (Auto) 0.3 Eos # (Auto) 0.2 Baso # (Auto) 0.0 Abs Immat Gran (auto) 0.06 H Absolute Neuts (auto) 11.0 H Absolute Nucleated RBC 0.000 Nucleated RBC % (auto) 0.0 PT INR VBG pH VBG pCO2 VBG pO2 VBG HCO3 VBG O2 Saturation VBG Base Excess Anion Gap 14 Estim Creat Clear Calc 40.8 Estimated GFR 43 POC Glucose 100 Random Glucose 107 Lactic Acid Calcium 8.4 Magnesium Total Bilirubin AST ALT Alkaline Phosphatase Ammonia Troponin I High Sens C-Reactive Protein B-Natriuretic Peptide Total Protein Albumin Urine Color Urine Appearance Urine pH Ur Specific [place] Urine Protein Urine Glucose (UA) Urine Ketones Urine Blood Urine Nitrite Ur Leukocyte Esterase Urine RBC Urine WBC Ur Squamous Epith Cells Urine Bacteria Hyaline Casts Ur Random Sodium Urine Creatinine Influenza Type A (PCR) Influenza Type B (PCR) RSV RNA Qual (PCR) SARS-CoV-2 RNA (RT-PCR) Assessment and Plan (1) Decubitus ulcer of coccygeal region, stage 2: Status: Acute (2) Aspiration into airway: Status: Acute (3) Urinary tract infection in elderly patient: Status: Acute (4) Acute metabolic encephalopathy: Status: Acute Plan 78-year-old gentleman with past medical history of MS chronically bed-bound, bullous pemphigoid on chronic steroids, with chronic bilateral lower extremity weakness, BPH, depression, type 2 diabetes mellitus on insulin, crohns, chronic UTIs (pansensitve proteus) with indwelling Carty catheter resident of nursing facility admitted for further management of acute metabolic encephalopathy related to infection likely UTI, possible aspiration pneumonia, and cellulitis coccygeal ulcer as well as acute kidney injury #Acute metabolic encephalopathy--likely related to acute infection, dehydration, HCT no acute finding, reportedly at baseline oriented x 3 -treat underlying issues as below #Acute kidney injury- likely d/t pre renal azotemia from decrease oral water intake, creating is improving with IVF -Bladder outet obstruction noted on CT, keep carty, Uro consult #Hyperchloremic met acidosis d/t IVF, change to lactated ringers #Carty catheter associated UTI -cultures pending -continue Abx (Unassyn)--seems to be responding to this, WBC down - #? Suspected aspiration pneumonia---No hypoxia, CXR and CT of chest show atelctasis, and therefore no PNA but at risk for aspiration. -keep NPO for now, PLANNING ENGINEER evaluation pending #stage 2 decubitus ulcer coccyx with purulent cellulitis -CRP 17, leukocytosis 15.7. No other SIRS criteria -wound culture ordered -IV vancomycin -wound RN consult # insulin-dependent type 2 diabetes -POC glucose, advanced to diabetic diet -patient on 5 units basal insulin. Hold for now given NPO status. Hold sliding scale insulin. Resume once diet advances as mentation improves # MS -bed-bound at baseline -continue home meds # history of bullous pemphigoid -continue prednisone. Hold methotrexate in setting of acute infection # hypertension -blood pressure is soft. Hold amlodipine. Hold losartan in setting of EDWARD -monitor blood pressures dvt prophylaxis- renally adjusted Lovenox Full code per MOLST form, will readdress Healthcare proxy, Alyx need for inpatient: metabolic ecephalopathy d/t acute infection, requiring IV Abx , IV fluid for acute kindney injury Quality Stroke Does the patient have a stroke diagnosis?: No VTE Prior VTE?: No VTE Risk Level:: Medical - moderate - high VTE Device Contraindication: Treatment Not Indicated VTE Drug Contraindication: N/A - Med Ordered
--- NOTE | 2024-02-26 10:02 | PC.NURSE ---
pt was sleeping but easily woken up, pt had dementia at baseline but does know that he is in a hospital but does not know which one, does not know the year or date, pt does have a chronic carty in place, emptied 625 of hematuria tinged urine but no visible clots at this time. pt also has a small bowel movement which he is cleaned up and noticed a pressure dressing on the coccyx area, pt is also wearing pressure booties on bilateral lower extremities with multiple chronic wounds, pt positioned onto his left sided and supported with pillows
[2024-02-26] MEDS: Ampicillin Sodium/Sulbactam Na 3 GM in 0.9 % Sodium Chloride 100 ML IV ×2 (10:38→23:40)
[2024-02-26] MEDS: Lactated Ringers 1,000 ML 80 ML IVCONT ×2 (10:44→23:50)
--- NOTE | 2024-02-26 10:49 | PM.CNNEP ---
History of Present Illness Reason for Consult Consult date: 03/09/24 Reason for consult: EDWARD Chief Complaint Chief complaint: ams, uti, aspiration, infected coccyx ulcer History of Present Illness Narrative: 78-year-old gentleman with a history of MS chronically bed-bound, bullous pemphigoid on chronic steroids, with chronic bilateral lower extremity weakness, BPH, depression, type 2 diabetes mellitus on insulin, crohns, chronic UTIs (pansensitve proteus) with indwelling Nunez catheter resident of nursing facility presented to the ED earlier today after being found lethargic, weak, minimally responsive today. His who regularly visits her at [facility] reports yesterday patient was baseline (a&ox3). On exam patient is somnolent but arousable, knows his name but continues repeating his name when asked other questions. No reported fevers, chills. No vomiting or diarrhea. Pt unable to provide further history. At the time admission creatinine is 2.6. With IV addition creatinine down to 1.6. Baseline creatinine is around 1.0. Review of Systems Review of Systems Yes Unobtainable due to mental status PMFSH Past Medical History Medical History (Updated 03/09/24 @ 15:10 by Raf Garcia MD) EDWARD (acute kidney injury) UTI (urinary tract infection) due to urinary indwelling Nunez catheter Bullous pemphigoid Steroid dependence Decubitus ulcer of coccygeal region, stage 2 Acute hypotension Sepsis Aspiration pneumonitis Recurrent UTI (urinary tract infection) Hypotonic neurogenic bladder Lytic lesion of bone on x-ray Wound of foot Anemia Septic shock Shoulder pain Constipation Hematuria Multiple sclerosis Depression Diabetes mellitus type 2 in obese Chronic pain syndrome BPH (benign prostatic hyperplasia) Dehydration Chronic renal failure Urinary tract infection Family History Family History Family/Other Heart attack Father Diabetes Surgical History Surgical History Hx of removal of cyst Social History Social History Household Members: Other Household Members Other:: lives at [facility] [address] in [place] Housing: Assisted Living Facility Housing Other:: [facility] Do you presently have visiting nurse or other home services: Yes Unable to assess alcohol history related to: Unable to respond Alcohol intake: never Comment: pt sedated on vent. Patient Tobacco Use Status: Former Tobacco user Cigarette Packs Per Day: 1 Advance Directives Date on File: 10/13/20 service: Yes Current occupational status: retired [employer] Allergies Allergy/AdvReac Type Severity Reaction Status Date / Time Benzodiazepines Allergy Unknown UNKNOWN Verified 04/11/21 09:47 [BENZODIAZEPINES] dalfampridine [From AMPYRA] Allergy Unknown UNKNOWN Verified 04/11/21 09:47 duloxetine [From CYMBALTA] Allergy Unknown UNKNOWN Verified 04/11/21 09:47 ezetimibe [From ZETIA] Allergy Unknown UNKNOWN Verified 04/11/21 09:47 niacin [NIACIN] Allergy Unknown UNKNOWN Verified 04/11/21 09:47 pravastatin [PRAVASTATIN] Allergy Unknown UNKNOWN Verified 04/11/21 09:47 Avgvhab-UOU-UzD Reductase Allergy Unknown UNKNOWN Verified 04/11/21 09:47 Inhibitor [PAWYXIU-AAP-CUK REDUCTASE INHIBITOR] lorazepam [From ATIVAN] AdvReac Severe EXCESSIVE Verified 04/11/21 09:47 SEDATION doxycycline [DOXYCYCLINE] AdvReac Mild esophogeal Verified 04/11/21 09:47 iritation methylprednisolone AdvReac Mild heartburn Verified 04/11/21 09:47 [From SOLU-MEDROL] ertapenem [From INVANZ] AdvReac Unknown possible Verified 04/11/21 09:47 cause of bullous pemphigoid Active Medications: Current Medications Acetaminophen (Acetaminophen 325 Mg Tablet) 650 mg PO Q6H PRN PRN Reason: Pain, Mild (Pain Scale 1-3) Atorvastatin Calcium (Atorvastatin Calcium 40 Mg Tablet) 40 mg PO DAILY [facility] Baclofen (Baclofen 20 Mg Tablet) 20 mg PO TID [facility] Bismuth Subsalicylate (Bismuth Subsalicylate Liquid 524 Mg/30 Ml Oral.Susp) 524 mg PO Q8H PRN PRN Reason: UPSET STOMACH/NAUSEA Dextrose (Dextrose 50 % 25 Gm/50 Ml Syringe) 25 gm IVPUSH Q15M PRN; Protocol PRN Reason: per Hypoglycemia Standing Ord. Famotidine (Famotidine 20 Mg Tablet) 20 mg PO BID [facility] Folic Acid (Folic Acid 1 Mg Tablet) 1 mg PO SuTuWeThFrSa@0900 [facility] Gabapentin (Gabapentin 300 Mg Capsule) 300 mg PO BID@0630,1200 [facility] Last Admin: 02/26/24 06:33 Dose: Not Given Gabapentin (Gabapentin 400 Mg Capsule) 800 mg PO BEDTIME [facility] Glucose (Glucose Gel 15 Gm Gel..Gram.) 15 gm PO Q15M PRN; Protocol PRN Reason: per Hypoglycemia Standing Ord. Guaifenesin (Guaifenesin 100 Mg/5 Ml Liquid) 10 ml PO Q4H PRN PRN Reason: Cough Ampicillin Sodium/Sulbactam (Sodium 3 gm/ Sodium Chloride) 100 mls @ 200 mls/hr IV Q12H [facility] Last Admin: 02/26/24 10:38 Dose: 200 mls/hr Vancomycin HCl 750 mg/ Sodium (Chloride) 265 mls @ 265 mls/hr IV Q24H [facility] Lactated Ringer's (Lr) 1,000 mls @ 80 mls/hr IVCONT .[id number] [facility] Last Admin: 02/26/24 10:44 Dose: 80 mls/hr Lactulose (Lactulose 20 Gm/30 Ml Solution) 20 gm PO DAILY [facility] Melatonin (Melatonin 3 Mg Tablet) 6 mg PO BEDTIME PRN PRN Reason: Insomnia Multi-Ingred Cream/Lotion/Oil/Oint (Mineral Oil/Petrolatum,White 106 Gm Tube) 1 appl TOPICAL BID [facility] Ondansetron HCl (Ondansetron Hcl 4 Mg/2 Ml Vial) 4 mg IVPUSH Q8H PRN PRN Reason: Nausea and Vomiting Pharmacy Consult (Consult Rx Vancomycin Dosing) 1 each MISCELLANE DAILY PRN PRN Reason: Consult order Polyethylene Glycol (Polyethylene Glycol 3350 17 Gm Powd.Pack) 17 gm PO DAILY [facility] Prednisone (Prednisone 2.5 Mg Tablet) 2.5 mg PO DAILY [facility] Senna (Sennosides 8.6 Mg Tablet) 17.2 mg PO BEDTIME [facility] Sodium Chloride (0.9 % Sodium Chloride Flush 3 Ml Syringe) 3 ml IVFLUSH QSHIFT [facility] Last Admin: 02/26/24 09:53 Dose: Not Given Zolpidem Tartrate (Zolpidem Tartrate 5 Mg Tablet) 5 mg PO BEDTIME [facility] Home Medications ?Medication ?Instructions ?Recorded ?Confirmed ?Last Taken ?Type gabapentin 300 mg capsule 300 mg PO BID@0630,1200 10/09/20 02/25/24 Unknown History metformin 500 mg tablet 500 mg PO BID 10/09/20 02/25/24 Unknown History tramadol 50 mg tablet 50 mg PO Q24H PRN Pain, Moderate 10/09/20 02/25/24 Unknown History acetaminophen 325 mg tablet 650 mg PO Q4H PRN Moderate Pain 03/13/21 02/25/24 Unknown History (Scale Score 5-6) aspirin 81 mg chewable tablet 81 mg PO DAILY 03/13/21 02/25/24 Unknown History rosuvastatin 10 mg tablet 10 mg PO DAILY 03/13/21 02/25/24 Unknown History guaifenesin 100 mg/5 mL oral 200 mg PO Q4H PRN Cough 05/19/21 02/25/24 Unknown History liquid (Diabetic Tussin EX) prednisone 2.5 mg tablet 2.5 mg PO DAILY 05/19/21 02/25/24 Unknown History amlodipine 10 mg tablet 10 mg PO DAILY 11/16/23 02/25/24 Unknown History bismuth subsalicylate 262 mg/15 mL 524 mg PO Q8H PRN UPSET 11/16/23 02/25/24 Unknown History oral suspension (Pepto-Bismol) STOMACH/NAUSEA ceramides 1,3,6-II (CeraVe topical 1 appl topical BID Dry Skin 11/16/23 02/25/24 Unknown History cream) docusate sodium 100 mg capsule 100 mg PO BID 11/16/23 02/25/24 Unknown History (Colace) famotidine 20 mg tablet 20 mg PO BID 11/16/23 02/25/24 Unknown History folic acid 1 mg tablet 1 mg PO SUTUWETHFRSA 11/16/23 02/25/24 Unknown History gabapentin 800 mg tablet 800 mg PO BEDTIME 11/16/23 02/25/24 Unknown History insulin glargine-yfgn 100 unit/mL 5 unit subcut BEDTIME 11/16/23 02/25/24 Unknown History subcutaneous solution lactulose 10 gram/15 mL oral 30 ml PO DAILY 11/16/23 02/25/24 Unknown History solution (Enulose) losartan 25 mg tablet 25 mg PO BEDTIME 11/16/23 02/25/24 Unknown History melatonin 5 mg tablet 5 mg PO BEDTIME PRN Insomnia 11/16/23 02/25/24 Unknown History ondansetron 4 mg disintegrating 4 mg PO Q8H PRN Nausea 11/16/23 02/25/24 Unknown History tablet polyethylene glycol 3350 17 17 g PO DAILY 11/16/23 02/25/24 Unknown History gram/dose oral powder (Miralax) sennosides 8.6 mg tablet (senna) 17.2 mg PO BEDTIME 11/16/23 02/25/24 Unknown History zolpidem 6.25 mg tablet,extended 6.25 mg PO BEDTIME 11/16/23 02/25/24 Unknown History release,multiphase methotrexate sodium 2.5 mg tablet 15 mg PO MO 02/25/24 02/25/24 Unknown History Physical Exam Vital Signs: Last Vital Signs Temp 98.0 F 02/26/24 05:52 Pulse 102 H 02/26/24 09:52 Resp 20 02/26/24 09:52 BP 143/58 H 02/26/24 09:52 Pulse Ox 98 02/26/24 09:52 O2 Del Method Room Air 02/26/24 09:52 BMI result Body Mass Index 26.9 Const General: ill appearing Neck Neck: Yes supple Resp Auscultation: clear to auscultation bilaterally Cardio Palpation: no palpable S3 Heart sounds: no rubs GI Palpation (GI): Soft to palpation Auscultation: normal bowel sounds Neuro Motor exam (neuro): no asterixis Results Lab Results 02/28/24 08:57 03/01/24 05:57 Lab results: Chemistry 02/25/24 02/26/24 19:44 07:56 Sodium 134 L 138 Potassium 4.7 4.2 Carbon Dioxide 23 18 L BUN 42 H 35 H Creatinine 2.57 H 1.59 H Calcium 8.2 L D 8.4 Hematology 02/25/24 02/26/24 19:44 07:56 WBC 15.7 H 12.2 H Hgb 9.7 L 9.9 L Plt Count 328 271 Urinalysis 02/25/24 19:54 Urine Color Yellow Urine Appearance Turbid Urine pH >= 9.0 Ur Specific [place] 1.015 Urine Protein 300 (3+) H Urine Glucose (UA) Negative Urine Ketones Negative Urine Blood Small (1+) H Urine Nitrite Negative Ur Leukocyte Esterase Large (3+) H Urine RBC 6-10 H Urine WBC 21-50 H Ur Squamous Epith Cells 0-2 Hyaline Casts 0-2 Urine Studies 02/25/24 22:53 Urine Creatinine 40.68 Assessment and Plan (1) EDWARD (acute kidney injury): Status: Acute Plan Elderly man with multiple medical problems and a chronic indwelling Nunez catheter comes in with acute kidney injury most likely due to hypoperfusion. With IV hydration renal function has improved. There could be a component obstructive uropathy. CT scan shows outlet obstruction but this could be a chronic finding. There is evidence of cystitis on CT scan. Recommendation would be to continue to keep the Nunez catheter in. Keep intake more than output Agree with IV hydration. Continue overt nephrotoxic agents. There is no absolute indication for dialysis. Renal function should improve with adequate hydration and optimizing his hemodynamics. Concur with other medical management and we will follow along with the team. Procedures Date of Service Date of Service: 03/09/24
--- NOTE | 2024-02-26 11:33 | HE.PHANOTE ---
VANCO DOSE ADJUSTMENT BASED ON SCR DOSE ADJUSTED TO 100 Q 24 BASED ON BETTER RENAL FUNCTION
[2024-02-26] MEDS: Famotidine 20 MG TABLET PO ×2 (12:05→21:35)
[2024-02-26] MEDS: polyethylene glycoL 3350 17 GM POWD.PACK PO (12:05)
[2024-02-26] MEDS: Baclofen 20 MG TABLET PO ×3 (12:05→21:35)
[2024-02-26] MEDS: Atorvastatin Calcium 40 MG TABLET PO (12:05)
[2024-02-26] MEDS: Lactulose 20 GM/30 ML SOLUTION PO (12:05)
[2024-02-26] MEDS: Gabapentin 300 MG CAPSULE PO (12:05)
[2024-02-26] MEDS: Folic Acid 1 MG TABLET PO (12:13)
--- NOTE | 2024-02-26 12:19 | PC.NURSE ---
: Patient seen for clinical swallow this a.m., presents with mild oral pharyngeal dysphagia. Recommend Start diet of Chopped/Advanced (NDD3), Thin liquids by cup sip(no straw), pills whole in puree. Patient reports eating independently, presented as unsteady at bedside, would recommend direct supervision at meal with assistance as needed. PHOSPHORIC ACID OPERATOR will follow this was from speech [facility]
[2024-02-26] MEDS: predniSONE 2.5 MG TABLET PO (12:56)
[2024-02-26] MEDS: Mineral Oil/Petrolatum,White 106 GM Tube 1 APPL TOPICAL (12:56)
--- NOTE | 2024-02-26 13:35 | MHC.CM.PN ---
Attempted to meet with patient in regards to discharge planning. Nursing care currently being provided. Spoke with patient's /HCP, Alyx via telephone at [phone]. Patient is [facility] care resident of [facility]. Anticipate patient will return via BLS when medically stable. Copy of HCP verified to be on file. Patient received 6 Pfizer vaccines. IMM explained and left at patient's bedside at Alyx's request. Continue to monitor for d/c needs.
[2024-02-26 14:33] LABS: Glucose, Whole Blood 192 mg/dL (60-115)
--- NOTE | 2024-02-26 14:35 | MHC.SL.SWA ---
Speech Pathologist Impression: Risk of Aspiration Due to: Neurological Condition Dysphasia Diet Status: Mild oral pharyngeal dysphagia. History of MBSS completed on 05/21/21. No evidence of aspiration or penetration. Mild vallecular retention. Double swallow strategy effective in reducing residue. Liquid Consistency and Strategies for Safe Swallow: Liquid Intake Recommendation: Thin Liquid Intake Strategies: Small Sips No Straws Solid Food Consistency: Dietary Recommendations: Chopped/Advanced (NDD3) Additional Modifications to Solid Foods: Patient may initially need some supervision and assistance at meals due to overall weakness. Per RN at [facility], patient is fussy would benefit from participating in food choices for meals. Liquids by cup sip only, no straws. Oral Medication Intake: Whole with Puree Please contact the pharmacy regarding appropriate crushable or liquid drug formulations that are available whenever modified delivery is recommended. Compensatory Strategies and Precautions to be Taken for Safe Swallow: Sitting Upright (90 deg) No Straw Liquids from Cup Small Bites and Sips Alternate Liquids/Solids Supervision While Eating and Drinking for Safe Swallow: Total Supervision (1:1) Foods to Avoid: Tough, difficult to chew solids, too large pieces of food. Swallowing Recommended Treatments: Compens. Strategy Educat. Recommendation for Speech: Inpatient Speech Therapy Comment: Patient presents with mild oral motor signs and mild oral pharyngeal dysphagia secondary to absent swallow trigger, prolonged mastication on harder solids. Patient is normally independent with his meals, but today was presenting as weak and unsteady. Recommend START diet of Chopped/Advanced (NDD3) with THIN liquids by cup sip only (NO STRAWS), pills whole in puree. Patient would benefit, at least initially, by supervision at his meals to assure that he is accessing his food and able to eat without spilling or other accidents. MD, RD, RN notified of recommendations by secure text. WRAP TURNER to f/u 1-2 times for toleration of diet and independence. Frequency/Duration: Date Range for Service Req: Timeline to reassess: Land Survey Technician Clinican/Clinical Fellow: No Supervisory Statement: I have reviewed and agree with the student/clinical fellow's documentation: N/A Speech Language Pathologist: Corina Catalan M.A., CCC-WRAP TURNER
--- NOTE | 2024-02-26 16:41 | PM.UROCN ---
History of Present Illness Consult details Consult date: 02/26/24 Narrative: 78-year-old male with history of MS chronically bed-bound, bullous pemphigoid on chronic steroids, with chronic bilateral lower extremity weakness, BPH, depression, type 2 diabetes mellitus on insulin, crohns, chronic UTIs (pansensitve proteus) with indwelling Carty catheter resident of nursing facility presented to the ED and admitted on 02/25/2024 due to change in mental status. Called to evaluate due to hematuria. CTAP: bladder outlet obstruction secondary to enlarged prostate gland with a dilated prostatic and penile urethra. There is a a catheter tip in the penile segment of urethra. This needs to be advanced. There is bilateral mild hydroureteronephrosis. There is cystic thickening of the urinary bladder wall suggestive of cystitis cystica/cystitis glandularis. The bladder is distended. Review of Systems Review of Systems: 10 point review of systems negative other than stated in HPI [facility] Past Medical History Medical History EDWARD (acute kidney injury) UTI (urinary tract infection) due to urinary indwelling Carty catheter Bullous pemphigoid Steroid dependence Decubitus ulcer of coccygeal region, stage 2 Acute hypotension Sepsis Aspiration pneumonitis Recurrent UTI (urinary tract infection) Hypotonic neurogenic bladder Lytic lesion of bone on x-ray Wound of foot Anemia Septic shock Shoulder pain Constipation Hematuria Multiple sclerosis Depression Diabetes mellitus type 2 in obese Chronic pain syndrome BPH (benign prostatic hyperplasia) Dehydration Chronic renal failure Urinary tract infection Family History Family History Family/Other Heart attack Father Diabetes Surgical History Surgical History Hx of removal of cyst Social History Social History Household Members: Other Household Members Other:: lives at [facility] on [address] in [place] Housing: Shelter Housing Other:: [facility] Do you presently have visiting nurse or other home services: No Unable to assess alcohol history related to: Unable to respond Alcohol intake: never Comment: pt sedated on vent. Patient Tobacco Use Status: Former Tobacco user Cigarette Packs Per Day: 1 Advance Directives: Yes Advance Directives on File: Yes Advance Directives Date on File: 10/13/20 Nutrition Risks: No Nutritional Risk service: Yes Current occupational status: retired Meds Allergies Allergy/AdvReac Type Severity Reaction Status Date / Time Benzodiazepines Allergy Unknown UNKNOWN Verified 04/11/21 09:47 [BENZODIAZEPINES] dalfampridine [From AMPYRA] Allergy Unknown UNKNOWN Verified 04/11/21 09:47 duloxetine [From CYMBALTA] Allergy Unknown UNKNOWN Verified 04/11/21 09:47 ezetimibe [From ZETIA] Allergy Unknown UNKNOWN Verified 04/11/21 09:47 niacin [NIACIN] Allergy Unknown UNKNOWN Verified 04/11/21 09:47 pravastatin [PRAVASTATIN] Allergy Unknown UNKNOWN Verified 04/11/21 09:47 [id number]-[id number] Reductase Allergy Unknown UNKNOWN Verified 04/11/21 09:47 Inhibitor [[id number] REDUCTASE INHIBITOR] lorazepam [From ATIVAN] AdvReac Severe EXCESSIVE Verified 04/11/21 09:47 SEDATION doxycycline [DOXYCYCLINE] AdvReac Mild esophogeal Verified 04/11/21 09:47 iritation methylprednisolone AdvReac Mild heartburn Verified 04/11/21 09:47 [From SOLU-MEDROL] ertapenem [From INVANZ] AdvReac Unknown possible Verified 04/11/21 09:47 cause of bullous pemphigoid Active Medications: Current Medications Acetaminophen (Acetaminophen 325 Mg Tablet) 650 mg PO Q6H PRN PRN Reason: Pain, Mild (Pain Scale 1-3) Atorvastatin Calcium (Atorvastatin Calcium 40 Mg Tablet) 40 mg PO DAILY [facility] Last Admin: 02/26/24 12:05 Dose: 40 mg Baclofen (Baclofen 20 Mg Tablet) 20 mg PO TID [facility] Last Admin: 02/26/24 15:20 Dose: 20 mg Bismuth Subsalicylate (Bismuth Subsalicylate Liquid 524 Mg/30 Ml Oral.Susp) 524 mg PO Q8H PRN PRN Reason: UPSET STOMACH/NAUSEA Dextrose (Dextrose 50 % 25 Gm/50 Ml Syringe) 25 gm IVPUSH Q15M PRN; Protocol PRN Reason: per Hypoglycemia Standing Ord. Famotidine (Famotidine 20 Mg Tablet) 20 mg PO BID [facility] Last Admin: 02/26/24 12:05 Dose: 20 mg Folic Acid (Folic Acid 1 Mg Tablet) 1 mg PO SuTuWeThFrSa@0900 [facility] Last Admin: 02/26/24 12:13 Dose: 1 mg Gabapentin (Gabapentin 300 Mg Capsule) 300 mg PO BID@0630,1200 [facility] Last Admin: 02/26/24 12:05 Dose: 300 mg Gabapentin (Gabapentin 400 Mg Capsule) 800 mg PO BEDTIME [facility] Glucose (Glucose Gel 15 Gm Gel..Gram.) 15 gm PO Q15M PRN; Protocol PRN Reason: per Hypoglycemia Standing Ord. Guaifenesin (Guaifenesin 100 Mg/5 Ml Liquid) 10 ml PO Q4H PRN PRN Reason: Cough Ampicillin Sodium/Sulbactam (Sodium 3 gm/ Sodium Chloride) 100 mls @ 200 mls/hr IV Q12H [facility] Last Infusion: 02/26/24 11:30 Dose: Infused Lactated Ringer's (Lr) 1,000 mls @ 80 mls/hr IVCONT .[id number] [facility] Last Admin: 02/26/24 10:44 Dose: 80 mls/hr Vancomycin HCl 1,000 mg/ (Sodium Chloride) 270 mls @ 270 mls/hr IV Q24H [facility] Lactulose (Lactulose 20 Gm/30 Ml Solution) 20 gm PO DAILY [facility] Last Admin: 02/26/24 12:05 Dose: 20 gm Melatonin (Melatonin 3 Mg Tablet) 6 mg PO BEDTIME PRN PRN Reason: Insomnia Multi-Ingred Cream/Lotion/Oil/Oint (Mineral Oil/Petrolatum,White 106 Gm Tube) 1 appl TOPICAL BID [facility] Last Admin: 02/26/24 12:56 Dose: 1 appl Ondansetron HCl (Ondansetron Hcl 4 Mg/2 Ml Vial) 4 mg IVPUSH Q8H PRN PRN Reason: Nausea and Vomiting Pharmacy Consult (Consult Rx Vancomycin Dosing) 1 each MISCELLANE DAILY PRN PRN Reason: Consult order Polyethylene Glycol (Polyethylene Glycol 3350 17 Gm Powd.Pack) 17 gm PO DAILY [facility] Last Admin: 02/26/24 12:05 Dose: 17 gm Prednisone (Prednisone 2.5 Mg Tablet) 2.5 mg PO DAILY [facility] Last Admin: 02/26/24 12:56 Dose: 2.5 mg Senna (Sennosides 8.6 Mg Tablet) 17.2 mg PO BEDTIME [facility] Sodium Chloride (0.9 % Sodium Chloride Flush 3 Ml Syringe) 3 ml IVFLUSH QSHIFT [facility] Last Admin: 02/26/24 15:21 Dose: Not Given Zolpidem Tartrate (Zolpidem Tartrate 5 Mg Tablet) 5 mg PO BEDTIME [facility] Home Medications Medication Instructions Recorded Confirmed Last Taken Type gabapentin 300 mg capsule 300 mg PO BID@0630,1200 10/09/20 02/25/24 Unknown History metformin 500 mg tablet 500 mg PO BID 10/09/20 02/25/24 Unknown History tramadol 50 mg tablet 50 mg PO Q24H PRN Pain, Moderate 10/09/20 02/25/24 Unknown History acetaminophen 325 mg tablet 650 mg PO Q4H PRN Moderate Pain 03/13/21 02/25/24 Unknown History (Scale Score 5-6) aspirin 81 mg chewable tablet 81 mg PO DAILY 03/13/21 02/25/24 Unknown History rosuvastatin 10 mg tablet 10 mg PO DAILY 03/13/21 02/25/24 Unknown History guaifenesin 100 mg/5 mL oral 200 mg PO Q4H PRN Cough 05/19/21 02/25/24 Unknown History liquid (Diabetic Tussin EX) prednisone 2.5 mg tablet 2.5 mg PO DAILY 05/19/21 02/25/24 Unknown History amlodipine 10 mg tablet 10 mg PO DAILY 11/16/23 02/25/24 Unknown History bismuth subsalicylate 262 mg/15 mL 524 mg PO Q8H PRN UPSET 11/16/23 02/25/24 Unknown History oral suspension (Pepto-Bismol) STOMACH/NAUSEA ceramides 1,3,6-II (CeraVe topical 1 appl topical BID Dry Skin 11/16/23 02/25/24 Unknown History cream) docusate sodium 100 mg capsule 100 mg PO BID 11/16/23 02/25/24 Unknown History (Colace) famotidine 20 mg tablet 20 mg PO BID 11/16/23 02/25/24 Unknown History folic acid 1 mg tablet 1 mg PO SUTUWETHFRSA 11/16/23 02/25/24 Unknown History gabapentin 800 mg tablet 800 mg PO BEDTIME 11/16/23 02/25/24 Unknown History insulin glargine-yfgn 100 unit/mL 5 unit subcut BEDTIME 11/16/23 02/25/24 Unknown History subcutaneous solution lactulose 10 gram/15 mL oral 30 ml PO DAILY 11/16/23 02/25/24 Unknown History solution (Enulose) losartan 25 mg tablet 25 mg PO BEDTIME 11/16/23 02/25/24 Unknown History melatonin 5 mg tablet 5 mg PO BEDTIME PRN Insomnia 11/16/23 02/25/24 Unknown History ondansetron 4 mg disintegrating 4 mg PO Q8H PRN Nausea 11/16/23 02/25/24 Unknown History tablet polyethylene glycol 3350 17 17 g PO DAILY 11/16/23 02/25/24 Unknown History gram/dose oral powder (Miralax) sennosides 8.6 mg tablet (senna) 17.2 mg PO BEDTIME 11/16/23 02/25/24 Unknown History zolpidem 6.25 mg tablet,extended 6.25 mg PO BEDTIME 11/16/23 02/25/24 Unknown History release,multiphase methotrexate sodium 2.5 mg tablet 15 mg PO MO 02/25/24 02/25/24 Unknown History Physical Exam Vital Signs: Vital Signs: Last Vital Signs Temp 98.0 F 02/26/24 05:52 Pulse 109 H 02/26/24 15:23 Resp 20 02/26/24 15:23 BP 161/63 H 02/26/24 15:23 Pulse Ox 98 02/26/24 15:23 O2 Del Method Room Air 02/26/24 15:23 BMI result Body Mass Index 26.9 Const: General: healthy appearing, no acute distress and well developed Orientation/consciousness: oriented to person HEENT: Head: Yes normocephalic and Yes atraumatic Eyes: Conjunctivae: conjunctivae normal Neck: Neck: Yes normal visual inspection Chest: Chest palpation & inspection: normal inspection of the chest Resp: Effort & Inspection: normal respiratory effort Cardio: Rate: regular rate GI: Inspection: Yes normal to inspection : Penis: normal penis Scrotum: scrotum normal Skin: General skin exam: no rashes or lesions noted Neuro: Other: Dementia General: oriented to person Psych: Appearance: grossly normal Affect: normal affect Results Labs 02/26/24 07:56 02/26/24 07:56 Labs: Abnormal lab results 03/02/25/24 02/26/24 Range/Units 19:44 19:54 07:56 WBC 15.7 H 12.2 H (4.8-10.8) X10*3/uL RBC 3.20 L 3.21 L (4.60-5.80) X10*6/uL Hgb 9.7 L 9.9 L (14.0-18.0) g/dl Hct 29.4 L 30.2 L (42.0-52.0) % RDW 18.3 H 18.5 H (11.0-16.0) % MPV 9.3 L (9.4-12.4) fL Immature Gran % (Auto) 0.6 H 0.5 H (0.0-0.4) % Neut % (Auto) 89.7 H 89.6 H (45-73) % Lymph % (Auto) 6.1 L 6.0 L (20-40) % Lymph # (Auto) 1.0 L 0.7 L (1.2-4.9) X10*3/uL Abs Immat Gran (auto) 0.10 H 0.06 H (0.00-0.03) X10*3/uL Absolute Neuts (auto) 14.1 H 11.0 H (2.0-8.3) x10*3/uL Sodium 134 L (135-145) mmol/L Chloride 110 H (96-108) mmol/L Carbon Dioxide 18 L (22-29) mmol/L BUN 42 H 35 H (9-16) mg/dL Creatinine 2.57 H 1.59 H (0.5-1.4) mg/dL POC Glucose (60-115) mg/dL Random Glucose 154 H (60-115) mg/dL Calcium 8.2 L D (8.4-10.2) mg/dL C-Reactive Protein 17.75 H (< or = 0.50) mg/dL Total Protein 6.0 L (6.5-8.0) g/dL Albumin 3.0 L (3.5-5.0) g/dL Urine Protein 300 (3+) H (Neg-Trace) mg/dL Urine Blood Small (1+) H (Negative) Ur Leukocyte Esterase Large (3+) H (Negative) Urine RBC 6-10 H (0-2) /HPF Urine WBC 21-50 H (0-5) /HPF 02/26/24 Range/Units 14:28 WBC (4.8-10.8) X10*3/uL RBC (4.60-5.80) X10*6/uL Hgb (14.0-18.0) g/dl Hct (42.0-52.0) % RDW (11.0-16.0) % MPV (9.4-12.4) fL Immature Gran % (Auto) (0.0-0.4) % Neut % (Auto) (45-73) % Lymph % (Auto) (20-40) % Lymph # (Auto) (1.2-4.9) X10*3/uL Abs Immat Gran (auto) (0.00-0.03) X10*3/uL Absolute Neuts (auto) (2.0-8.3) x10*3/uL Sodium (135-145) mmol/L Chloride (96-108) mmol/L Carbon Dioxide (22-29) mmol/L BUN (9-16) mg/dL Creatinine (0.5-1.4) mg/dL POC Glucose 192 H (60-115) mg/dL Random Glucose (60-115) mg/dL Calcium (8.4-10.2) mg/dL C-Reactive Protein (< or = 0.50) mg/dL Total Protein (6.5-8.0) g/dL Albumin (3.5-5.0) g/dL Urine Protein (Neg-Trace) mg/dL Urine Blood (Negative) Ur Leukocyte Esterase (Negative) Urine RBC (0-2) /HPF Urine WBC (0-5) /HPF Short CBC 02/25/24 02/26/24 Range/Units 19:44 07:56 WBC 15.7 H 12.2 H (4.8-10.8) X10*3/uL Hgb 9.7 L 9.9 L (14.0-18.0) g/dl Hct 29.4 L 30.2 L (42.0-52.0) % Plt Count 328 271 (160-400) X10*3/uL BMP 02/25/24 02/26/24 19:44 07:56 Sodium 134 L 138 Potassium 4.7 4.2 Chloride 103 110 H Carbon Dioxide 23 18 L BUN 42 H 35 H Creatinine 2.57 H 1.59 H Calcium 8.2 L D 8.4 Liver Function 02/25/24 Range/Units 19:44 Total Bilirubin 0.8 (0.0-1.0) mg/dL AST 15 (5-37) U/L ALT 14 (0-40) U/L Alkaline Phosphatase 79 (39-117) U/L Albumin 3.0 L (3.5-5.0) g/dL Urine 02/25/24 Range/Units 19:54 Urine Color Yellow Urine Appearance Turbid Urine pH >= 9.0 (5.0-9.0) Ur Specific [place] 1.015 (1.005-1.025) Urine Protein 300 (3+) H (Neg-Trace) mg/dL Urine Glucose (UA) Negative (Negative) mg/dL Imaging Additional studies: Date of Service: 02/25/24 EXAMINATION: CT chest, abdomen pelvis without IV contrast. CLINICAL INDICATIONS: Chest pain, abdominal pain, distention and leukocytosis. COMPARISON: CT chest, abdomen pelvis 05/14/2021. TECHNIQUE: 5 mm thin axial and reformatted 3 mm thin sagittal and coronal images of chest, abdomen and pelvis were obtained without contrast. DLP 1200. This CT examination was performed using dose optimization technique as appropriate, variously including the following: Automated exposure control Adjustment of MA and/or KV according to patient size(this includes techniques or standardized protocols for targeted exams where dose is matched to indication/reason for exam; extremities or head. Use of iterative reconstruction techniques. FINDINGS: CHEST: LUNGS: The lungs are well-expanded with mild dependent atelectatic changes in both upper lobes and lower lobes. No consolidation, mass or pulmonary nodules seen. Mediastinum: Thyroid lobes are symmetrical and normal. The central trachea and bronchi are widely patent. Heart size and the great vessels are normal caliber. No pericardial effusion seen. There is mild coronary artery calcifications noted. No abnormal size mediastinal or hilar lymph nodes seen. Pleura: There is no pleural effusion, thickening or calcification. Axilla: No abnormal size axillary lymph nodes seen. The chest wall is unremarkable. Osseous structures: There is no aggressive lytic or sclerotic process seen. Abdomen and pelvis: Liver, ducts and gallbladder: The liver is normal size, contour and and density. No focal lesion or intrahepatic ductal dilatation seen. The gallbladder is unremarkable. Spleen: Unremarkable. Pancreas: Unremarkable. Adrenal glands: Unremarkable. Kidneys and ureters: Both kidneys are normal size,, cortical thickness and position. There is mild perinephric stranding. There are bilateral extrarenal kidney pelvises and prominent ureters extending into the bladder. No obstructive radiopaque calculi seen. Bladder: Bladder is enlarged with diffuse bladder wall thickening with low-density areas within the bladder wall findings are most suggestive of cystitis cystica/cystitis glandularis bladder appearance. There is bladder outlet obstruction secondary to enlarged prostate gland with a dilated prostatic and penile urethra. There is urinary catheter with its tip in the penile segment of the ureter. This needs to be advanced. GI tract: There is oral contrast, stool and gas seen throughout the colon without distention. The small bowel loops are normal caliber. Appendix is not visualized with certainty. No free air or free fluid seen. Lymphovascular structures: Abdominal aorta is of normal caliber. No abnormal lymph nodes seen in the retroperitoneum or pelvis. Abdominal wall: There is no evidence of hernia. Pelvis: There is diffuse mural thickening involving the rectum. Also visualized is enlarged prostate gland with centrally dilated prostatic and penile urethra with a catheter tip in the penile segment of urethra. It needs to be advanced further catheter tip to lie in the prostate gland. Osseous structures: Mild degenerative disc changes L5-S1, L3-L4 and T12-L1 disc levels IMPRESSION: 1. Dependent atelectatic changes in both upper and lower lobes. No acute process seen in the chest. 2. There is bladder outlet obstruction secondary to enlarged prostate gland with a dilated prostatic and penile urethra. There is a a catheter tip in the penile segment of urethra. This needs to be advanced. There is bilateral mild hydroureteronephrosis. 3. There is cystic thickening of the urinary bladder wall suggestive of cystitis cystica/cystitis glandularis. The bladder is distended. 4. There is diffuse mural thickening involving the rectum, nonspecific. Question proctitis. Assessment and Plan (1) Neurogenic bladder: Status: Acute (2) Chronic indwelling Carty catheter: Status: Acute (3) Gross hematuria: Status: Acute (4) Cystitis: Status: Acute (5) Obstructive uropathy: Status: Acute Mild Bilateral hydronephrosis, hydroureter, bladder distended, Carty was not in the bladder on CT scan CT scan suggestive of cystitis. Plan False passage in urethra, carty 16 fr placed via cystoscopy guidance Pt on IV Abx Procedures Date of Service Date of Service: 02/26/24 Catheter Insertion (Urinary) Date of insertion: 02/26/24 Time of insertion: 19:18 Replacement of catheter present on admission: Yes Patient has the following: history of catheter associated urinary tract infection Bladder scan/ultrasound used before catheterization: Yes Estimated amount of urine (mLs): 525 Antiseptic solution prep: Povidone-Iodine Topical anesthesia used: Yes Catheter type/location: 2-way Urethral Size (Setswana): 16 Catheter balloon size (mL): 10 Catheter balloon amount: 15 Results: consulted and other Comment: CPT- -[id number] Additional comments: Unable to place catheter. Flexible Cystoscopy performed: Time out performed. sterile technique, 16 fr cystoscope passed transurethrally, false passage noted in the proximal urethra proximal just before the membraneous urethra. A guide wire was passed through the cystoscope and the 16 fr [place] tip catheter was passed over the guidewire into the bladder.
--- NOTE | 2024-02-26 16:51 | HO.WOUND ---
Wound Consult: Initial 78yr old? Male admitted to [facility] on 02/25/24 - See progress notes and H&P for detailed history.? Wound consult placed for Coccyx wound POA.? Patient agreeable to assessment and photo documentation.? Bilateral feet noted for significant wounds - see photos below - chart review reveal history of BP - Bullous Pemphigoid although the wounds are in various stages of healing and no bulla observed if this is infact BP topical treatment should include topical steroid application and cover to protect wounds from infection. Dr. Sykes made aware. Right Heel red - intact and remains blanchable. Left Foot Left Foot Left Leg Right Foot Sacrum Etiology: Unstageable Pressure injury Present on Admission Measurements: 0.5cm x 0.5cm x 0.2cm Wound Bed: adherent yellow slough Drainage / Odor: None noted Edges: ? Defined Meghan wound: ? REd maroon nonblanchable tissue (DTI) No Induration, Fluctuance or Warmth noted Pain: Patient reports pain Goals of Treatment: ? Traid to allow for autolytic debridement and moist wound healing foam dressing to protect from friction and moisture Recommendations: 1. Turn and Reposition every 2 hours and as needed for patient comfort.? Use pillows or wedges to support off loading positions. 2. Off Load all bony prominences with use of pillows and heel boots if needed.? Apply Preventative foams where needed. ? 3. Monitor for incontinence and moisture control, use barrier creams when needed for prevention and treatment. 4. Provide adequate and supplemental nutrition.? 5. Order low air loss mattress. 6. When applicable maintain blood glucose levels per Providers order. 7. Sacrum - Off Load Pressure - Cleanse with PH balance spray or wipes, pat dry. ?Apply thin layer of Triad to wound bed. Do not remove all of paste between applications as this may cause further skin damage.? Cover with foam dressing to aid in off loading and protection from friction. 8. Bilateral Feet - Continue to off load in Heel Protector Boots. Gently cleanse with NS, pat dry. Apply topical steroid per provider order, cover with no-stick gauze and gauze wrap. Change daily. Re-consult wound care Nurse for wound deterioration or wound changes.
--- NOTE | 2024-02-26 18:35 | PC.NURSE ---
dr drake at bedside, having a hard time advancing the Nunez cath
--- NOTE | 2024-02-26 19:23 | PC.NURSE ---
Assumed care of pt @ 19:15. LR running @ 80 mls/hr. Son at bedside PT repositioned for comfort. Bandage dry and intact on coccyx with date of 02/26/24 handwritten on it. PT offers no complaints @ ths time.
[2024-02-26] MEDS: vancomycin HCL 1,000 MG in 0.9 % Sodium Chloride 250 ML 270 MG IV (21:33)
[2024-02-26] MEDS: Gabapentin 400 MG CAPSULE 800 MG PO (21:35)
[2024-02-26] MEDS: Sennosides 8.6 MG TABLET 17.2 MG PO (21:35)
[2024-02-26] MEDS: Zolpidem Tartrate 5 MG TABLET PO (21:35)
[2024-02-27 02:52] LABS: Glucose, Whole Blood 112 mg/dL (60-115)
[2024-02-27 02:57] VITALS: BP 136/62; PULSE 79; RESP 14; TEMP 36.4; O2SAT 99
[2024-02-27] MEDS: Gabapentin 300 MG CAPSULE PO ×2 (05:59→12:00)
[2024-02-27 07:19] LABS: Hematocrit 28.4 % (42.0-52.0); Hemoglobin 9.3 g/dl (14.0-18.0); Mean Corpuscular HGB Conc 32.7 g/dl (31.0-36.0); Mean Corpuscular Hemoglobin 30.3 pg (27.0-33.0); Mean Corpuscular Volume 92.5 fL (80.0-98.0); Mean Platelet Volume 9.4 fL (9.4-12.4); Platelet Count 297 X10*3/uL (160-400); Red Blood Count 3.07 X10*6/uL (4.60-5.80); Red Cell Distribution Width 18.2 % (11.0-16.0); White Blood Count 10.4 X10*3/uL (4.8-10.8)
[2024-02-27 07:38] LABS: Blood Urea Nitrogen 17 mg/dL (9-16); Calcium 8.7 mg/dL (8.4-10.2); Creatinine Clr Calc Pharmacy 62.9; Estimated Glomerular Filt Rate > 60; Glucose Random 106 mg/dL (60-115)
[2024-02-27 07:41] VITALS: BP 157/69; PULSE 95; RESP 18; TEMP 35.6; O2SAT 99
[2024-02-27 07:41] LABS: Glucose, Whole Blood 100 mg/dL (60-115)
[2024-02-27 07:55] LABS: Anion Gap 13 (12-20); Carbon Dioxide 24 mmol/L (22-29); Chloride 107 mmol/L (96-108); Potassium 3.5 mmol/L (3.3-5.1); Sodium 140 mmol/L (135-145)
[2024-02-27] MEDS: Lactulose 20 GM/30 ML SOLUTION PO (09:00)
[2024-02-27] MEDS: polyethylene glycoL 3350 17 GM POWD.PACK PO (09:01)
[2024-02-27] MEDS: Atorvastatin Calcium 40 MG TABLET PO (09:01)
[2024-02-27] MEDS: predniSONE 2.5 MG TABLET PO (09:01)
[2024-02-27] MEDS: Baclofen 20 MG TABLET PO ×3 (09:01→22:13)
[2024-02-27] MEDS: Famotidine 20 MG TABLET PO ×2 (09:01→22:11)
[2024-02-27] MEDS: Mineral Oil/Petrolatum,White 106 GM Tube 1 APPL TOPICAL (09:08)
[2024-02-27 11:22] VITALS: BP 135/63; PULSE 84; RESP 18; TEMP 35.6; O2SAT 99
[2024-02-27 11:32] LABS: Glucose, Whole Blood 158 mg/dL (60-115)
[2024-02-27] MEDS: Folic Acid 1 MG TABLET PO (11:56)
[2024-02-27] MEDS: Lactated Ringers 1,000 ML 80 ML IVCONT (11:57)
[2024-02-27] MEDS: Ampicillin Sodium/Sulbactam Na 3 GM in 0.9 % Sodium Chloride 100 ML IV (11:57)
--- NOTE | 2024-02-27 12:18 | P.PNIM_ITS ---
Subjective Subjective Date of Service: 02/28/24 Interval History: f/u on acute metabolic encephalopathy, UTI, interval history: He is fully awake and alert today, conversing eaing, renal function has retunred to normal Physical Exam 2 Vital Signs: Vital Signs: Last Vital Signs Temp 96.1 F L 02/27/24 11:22 Pulse 84 02/27/24 11:22 Resp 18 02/27/24 11:22 BP 135/63 02/27/24 11:22 Pulse Ox 99 02/27/24 11:22 O2 Del Method Room Air 02/27/24 11:22 BMI result Body Mass Index 26.9 Constitutional - awake, confused, No apparent distress Cardiovascular - S1S2, RRR, No edema Respiratory - Normal lung expansion, Normal respiratory effort, No respiratory distress, rhonchi crackles L lung and R base Gastrointestinal -mild distention, no signs of tenderness Extremities - no calf tenderness bilaterally, no swelling Skin - Warm/Dry. Stage 2 decubitus ulcer coccyx with small amount of purulent drainage and surrounding erythema, multiple scabs on legs Neurological -awake but easily becomes drowosy, oriented to self only, Psychological -flat affect Objective Data Active Medications Acetaminophen (Acetaminophen 325 Mg Tablet) 650 mg PO Q6H PRN PRN Reason: Pain, Mild (Pain Scale 1-3) Atorvastatin Calcium (Atorvastatin Calcium 40 Mg Tablet) 40 mg PO DAILY [facility] Last Admin: 02/27/24 09:01 Dose: 40 mg Documented By: ANGEL Baclofen (Baclofen 20 Mg Tablet) 20 mg PO TID [facility] Last Admin: 02/27/24 09:01 Dose: 20 mg Documented By: ANGEL Bismuth Subsalicylate (Bismuth Subsalicylate Liquid 524 Mg/30 Ml Oral.Susp) 524 mg PO Q8H PRN PRN Reason: UPSET STOMACH/NAUSEA Dextrose (Dextrose 50 % 25 Gm/50 Ml Syringe) 25 gm IVPUSH Q15M PRN; Protocol PRN Reason: per Hypoglycemia Standing Ord. Famotidine (Famotidine 20 Mg Tablet) 20 mg PO BID [facility] Last Admin: 02/27/24 09:01 Dose: 20 mg Documented By: ANGEL Folic Acid (Folic Acid 1 Mg Tablet) 1 mg PO SuTuWeThFrSa@0900 [facility] Last Admin: 02/27/24 11:56 Dose: 1 mg Documented By: ANGEL Gabapentin (Gabapentin 300 Mg Capsule) 300 mg PO BID@0630,1200 [facility] Last Admin: 02/27/24 12:00 Dose: 300 mg Documented By: ANGEL Gabapentin (Gabapentin 400 Mg Capsule) 800 mg PO BEDTIME [facility] Last Admin: 02/26/24 21:35 Dose: 800 mg Documented By: KELTON Glucose (Glucose Gel 15 Gm Gel..Gram.) 15 gm PO Q15M PRN; Protocol PRN Reason: per Hypoglycemia Standing Ord. Guaifenesin (Guaifenesin 100 Mg/5 Ml Liquid) 10 ml PO Q4H PRN PRN Reason: Cough Ampicillin Sodium/Sulbactam (Sodium 3 gm/ Sodium Chloride) 100 mls @ 200 mls/hr IV Q12H [facility] Last Admin: 02/27/24 11:57 Dose: 200 mls/hr Documented By: ANGEL Lactated Ringer's (Lr) 1,000 mls @ 80 mls/hr IVCONT .[id number] [facility] Last Admin: 02/27/24 11:57 Dose: 80 mls/hr Documented By: ANGEL Vancomycin HCl 1,000 mg/ (Sodium Chloride) 270 mls @ 270 mls/hr IV Q24H [facility] Last Infusion: 02/27/24 01:03 Dose: Infused Documented By: KELTON Lactulose (Lactulose 20 Gm/30 Ml Solution) 20 gm PO DAILY [facility] Last Admin: 02/27/24 09:00 Dose: 20 gm Documented By: ANGEL Melatonin (Melatonin 3 Mg Tablet) 6 mg PO BEDTIME PRN PRN Reason: Insomnia Multi-Ingred Cream/Lotion/Oil/Oint (Mineral Oil/Petrolatum,White 106 Gm Tube) 1 appl TOPICAL BID [facility] Last Admin: 02/27/24 09:08 Dose: 1 appl Documented By: ANGEL Ondansetron HCl (Ondansetron Hcl 4 Mg/2 Ml Vial) 4 mg IVPUSH Q8H PRN PRN Reason: Nausea and Vomiting Pharmacy Consult (Consult Rx Vancomycin Dosing) 1 each MISCELLANE DAILY PRN PRN Reason: Consult order Polyethylene Glycol (Polyethylene Glycol 3350 17 Gm Powd.Pack) 17 gm PO DAILY [facility] Last Admin: 02/27/24 09:01 Dose: 17 gm Documented By: ANGEL Prednisone (Prednisone 2.5 Mg Tablet) 2.5 mg PO DAILY [facility] Last Admin: 02/27/24 09:01 Dose: 2.5 mg Documented By: ANGEL Senna (Sennosides 8.6 Mg Tablet) 17.2 mg PO BEDTIME [facility] Last Admin: 02/26/24 21:35 Dose: 17.2 mg Documented By: KELTON Sodium Chloride (0.9 % Sodium Chloride Flush 3 Ml Syringe) 3 ml IVFLUSH QSHIFT [facility] Last Admin: 02/27/24 09:08 Dose: Not Given Documented By: ANGEL Non-Admin Reason: IV Running Zolpidem Tartrate (Zolpidem Tartrate 5 Mg Tablet) 5 mg PO BEDTIME [facility] Last Admin: 02/26/24 21:35 Dose: 5 mg Documented By: KELTON Labs 02/28/24 08:57 02/28/24 08:57 Labs: Laboratory Results - last 24 hr 02/26/24 02/27/24 02/27/24 14:28 02:44 07:05 MCV 92.5 MCH 30.3 MCHC 32.7 RDW 18.2 H Plt Count 297 MPV 9.4 Absolute Nucleated RBC 0.000 Nucleated RBC % (auto) 0.0 Anion Gap 13 Estim Creat Clear Calc 62.9 Estimated GFR > 60 POC Glucose 192 H 112 Random Glucose 106 Calcium 8.7 02/27/24 02/27/24 07:37 11:19 MCV MCH MCHC RDW Plt Count MPV Absolute Nucleated RBC Nucleated RBC % (auto) Anion Gap Estim Creat Clear Calc Estimated GFR POC Glucose 100 158 H Random Glucose Calcium Microbiology Microbiology Results: Microbiology 02/25/24 Unknown Urine Culture - Final Urine clean catch - Urine marr top 02/26/24 11:07 Gram Stain - Final Coccyx Routine Culture - Preliminary Culture in progress. 02/25/24 20:09 Blood Culture - Preliminary Blood - Venous No growth after 24 hours. 02/25/24 19:44 Blood Culture - Preliminary Blood - Venous No growth after 24 hours. Assessment and Plan (1) Decubitus ulcer of coccygeal region, stage 2: Status: Acute (2) Aspiration into airway: Status: Acute (3) Urinary tract infection in elderly patient: Status: Acute (4) Acute metabolic encephalopathy: Status: Acute Plan 78-year-old gentleman with past medical history of MS chronically bed-bound, bullous pemphigoid on chronic steroids, with chronic bilateral lower extremity weakness, BPH, depression, type 2 diabetes mellitus on insulin, crohns, chronic UTIs (pansensitve proteus) with indwelling Carty catheter resident of nursing facility admitted for further management of acute metabolic encephalopathy related to infection likely UTI, possible aspiration pneumonia, and cellulitis coccygeal ulcer as well as acute kidney injury #Acute metabolic encephalopathy--likely related to acute infection, dehydration, HCT no acute finding, reportedly at baseline oriented x 3 -treat underlying issues as below. She is back to his baseline mental status #Acute kidney injury- likely d/t pre renal azotemia from decrease oral water intake, and possible obstrucitve uropathy. Creatine within angela -Bladder outet obstruction noted on CT, keep carty, Uro consult #Hyperchloremic met acidosis d/t IVF, change to lactated ringers #Carty catheter associated UTI -cultures no growth -continue Abx (Unassyn)--seems to be responding to this, WBC down - #? Suspected aspiration pneumonia---No hypoxia, CXR and CT of chest show atelctasis, and therefore no PNA but at risk for aspiration. -keep NPO for now, IT TECHNICAL ARCHITECT evaluation pending #stage 2 decubitus ulcer coccyx with purulent cellulitis, multi organisms -CRP 17, leukocytosis 15.7. No other SIRS criteria -wound culture ordered -IV vancomycin -wound RN consult - ID # insulin-dependent type 2 diabetes -POC glucose, advanced to diabetic diet -patient on 5 units basal insulin, resume basal # MS -bed-bound at baseline -continue home meds # history of bullous pemphigoid -continue prednisone. Hold methotrexate in setting of acute infection # hypertension -blood pressure is soft. Hold amlodipine. Hold losartan in setting of EDWARD -monitor blood pressures dvt prophylaxis- renally adjusted Lovenox Full code per MOLST form, will readdress Healthcare proxy, Alyx need for inpatient: metabolic ecephalopathy d/t acute infection, requiring IV Abx , IV fluid for acute kindney injury Quality Stroke Does the patient have a stroke diagnosis?: No VTE Prior VTE?: No VTE Risk Level:: Medical - moderate - high VTE Device Contraindication: Treatment Not Indicated VTE Drug Contraindication: N/A - Med Ordered
[2024-02-27 13:11] VITALS: BMI 26.9
[2024-02-27 13:21] LABS: Estimated Average Glucose 120 mg/dL; Hemoglobin A1C 96.8599 umol/L; Hemoglobin A1c % 5.8 % (<6.0)
--- NOTE | 2024-02-27 14:29 | MHC.CM.PN ---
Pt has not been medically cleared for DC, plan is for him to return to [facility], CM to follow and assist with DC plan.
[2024-02-27 15:30] VITALS: BP 165/72; PULSE 92; RESP 18; TEMP 35.8; O2SAT 100
[2024-02-27 15:38] LABS: Glucose, Whole Blood 227 mg/dL (60-115)
[2024-02-27] MEDS: metFORMIN HCl 500 MG TABLET PO ×2 (16:12→22:11)
[2024-02-27] MEDS: 0.9 % Sodium Chloride Flush 3 ML SYRINGE IVFLUSH (16:12)
--- NOTE | 2024-02-27 16:25 | MHC.SL.SWA ---
Risk of Aspiration Due to: Neurological Condition Dysphasia Diet Status: NO CHANGE Liquid Consistency and Strategies for Safe Swallow: Liquid Intake Recommendation: Thin Liquid Intake Strategies: Small Sips No Straws Solid Food Consistency: Dietary Recommendations: Chopped/Advanced (NDD3) Additional Modifications to Solid Foods: Patient may initially need some supervision and assistance at meals due to overall weakness. Per RN at [facility], patient is fussy would benefit from participating in food choices for meals. Oral Medication Intake: Whole with Puree Please contact the pharmacy regarding appropriate crushable or liquid drug formulations that are available whenever modified delivery is recommended. Compensatory Strategies and Precautions to be Taken for Safe Swallow: Sitting Upright (90 deg) No Straw Liquids from Cup Small Bites and Sips Alternate Liquids/Solids Supervision While Eating and Drinking for Safe Swallow: Total Assistance (1:1) Foods to Avoid: Tough, difficult to chew solids, too large pieces of food. Swallowing Recommended Treatments: Compens. Strategy Educat. Recommendation for Speech: Inpatient Speech Therapy Comment: Recommend continue with CHOPPED/ADVANCED (NDD3) solids and THIN liquids with pills WHOLE in PUREE or LIQUID per patient's tolerance. Cereal w/ milk OK. 1-1 supervision w/ assistance as needed recommended. Certified Welding Inspector Clinican/Clinical Fellow: No Supervisory Statement: I have reviewed and agree with the student/clinical fellow's documentation: N/A Speech Language Pathologist: Pily Keller M.A., CCC-LEATHER SPLITTER
[2024-02-27] MEDS: Insulin Lispro 100 UNIT/ML 3 ML VIAL SUBCUT ×2 (18:15→22:16)
[2024-02-27 19:28] LABS: Vancomycin Random 14.3 mcg/mL (15-20)
--- NOTE | 2024-02-27 19:33 | HE.PHANOTE ---
RE: kandice Patient's renal function improving, increased dose to 1250mg Q24H with precited trough of 13.3, AUC of 457. Next level to be drawm 02/28 @5864
[2024-02-27 19:44] VITALS: BP 153/65; PULSE 102; RESP 18; TEMP 36.9; O2SAT 100
[2024-02-27 21:26] LABS: Glucose, Whole Blood 197 mg/dL (60-115)
--- NOTE | 2024-02-27 21:39 | W.PM.IDCN ---
History of Present Illness Data of Consult Service Date: 02/27/24 Requesting physician: Juan Sykes Primary Care Provider: Get Martin MD HPI Reason for consult: acute mental status changes,possible infection He presents with weakness and fatigue. He has no fever or chills. He has some mild hypothermia and leukocytosis on arrival. He has reported ulcer sacral area. Review of Systems Review of Systems: Yes all other systems are reviewed and are negative PMFSH Past Medical History Medical History EDWARD (acute kidney injury) UTI (urinary tract infection) due to urinary indwelling Nunez catheter Bullous pemphigoid Steroid dependence Decubitus ulcer of coccygeal region, stage 2 Acute hypotension Sepsis Aspiration pneumonitis Recurrent UTI (urinary tract infection) Hypotonic neurogenic bladder Lytic lesion of bone on x-ray Wound of foot Anemia Septic shock Shoulder pain Constipation Hematuria Multiple sclerosis Depression Diabetes mellitus type 2 in obese Chronic pain syndrome BPH (benign prostatic hyperplasia) Dehydration Chronic renal failure Urinary tract infection Family History Family History Family/Other Heart attack Father Diabetes Family history: reviewed and not pertinent Surgical History Surgical History Hx of removal of cyst Social History Social History Household Members: Other Household Members Other:: lives at [facility] Housing: Assisted Living Facility Housing Other:: [facility] Do you presently have visiting nurse or other home services: Yes Unable to assess alcohol history related to: Unable to respond Alcohol intake: never Comment: pt sedated on vent. Patient Tobacco Use Status: Former Tobacco user Cigarette Packs Per Day: 1 Advance Directives Date on File: 10/13/20 service: Yes Current occupational status: retired Meds Allergies Allergy/AdvReac Type Severity Reaction Status Date / Time Benzodiazepines Allergy Unknown UNKNOWN Verified 04/11/21 09:47 [BENZODIAZEPINES] dalfampridine [From AMPYRA] Allergy Unknown UNKNOWN Verified 04/11/21 09:47 duloxetine [From CYMBALTA] Allergy Unknown UNKNOWN Verified 04/11/21 09:47 ezetimibe [From ZETIA] Allergy Unknown UNKNOWN Verified 04/11/21 09:47 niacin [NIACIN] Allergy Unknown UNKNOWN Verified 04/11/21 09:47 pravastatin [PRAVASTATIN] Allergy Unknown UNKNOWN Verified 04/11/21 09:47 Etqhood-LRP-WxF Reductase Allergy Unknown UNKNOWN Verified 04/11/21 09:47 Inhibitor [ENCUMBX-DDR-TZT REDUCTASE INHIBITOR] lorazepam [From ATIVAN] AdvReac Severe EXCESSIVE Verified 04/11/21 09:47 SEDATION doxycycline [DOXYCYCLINE] AdvReac Mild esophogeal Verified 04/11/21 09:47 iritation methylprednisolone AdvReac Mild heartburn Verified 04/11/21 09:47 [From SOLU-MEDROL] ertapenem [From INVANZ] AdvReac Unknown possible Verified 04/11/21 09:47 cause of bullous pemphigoid Active Medications: Current Medications Acetaminophen (Acetaminophen 325 Mg Tablet) 650 mg PO Q6H PRN PRN Reason: Pain, Mild (Pain Scale 1-3) Atorvastatin Calcium (Atorvastatin Calcium 40 Mg Tablet) 40 mg PO DAILY [facility] Last Admin: 02/27/24 09:01 Dose: 40 mg Baclofen (Baclofen 20 Mg Tablet) 20 mg PO TID [facility] Last Admin: 02/27/24 16:12 Dose: 20 mg Bismuth Subsalicylate (Bismuth Subsalicylate Liquid 524 Mg/30 Ml Oral.Susp) 524 mg PO Q8H PRN PRN Reason: UPSET STOMACH/NAUSEA Dextrose (Dextrose 50 % 25 Gm/50 Ml Syringe) 25 gm IVPUSH Q15M PRN; Protocol PRN Reason: per Hypoglycemia Standing Ord. Dextrose (Dextrose 50 % 25 Gm/50 Ml Syringe) 25 gm IVPUSH Q15M PRN; Protocol PRN Reason: per Hypoglycemia Standing Ord. Famotidine (Famotidine 20 Mg Tablet) 20 mg PO BID [facility] Last Admin: 02/27/24 09:01 Dose: 20 mg Folic Acid (Folic Acid 1 Mg Tablet) 1 mg PO SuTuWeThFrSa@0900 [facility] Last Admin: 02/27/24 11:56 Dose: 1 mg Gabapentin (Gabapentin 300 Mg Capsule) 300 mg PO BID@0630,1200 [facility] Last Admin: 02/27/24 12:00 Dose: 300 mg Gabapentin (Gabapentin 400 Mg Capsule) 800 mg PO BEDTIME [facility] Last Admin: 02/26/24 21:35 Dose: 800 mg Glucose (Glucose Gel 15 Gm Gel..Gram.) 15 gm PO Q15M PRN; Protocol PRN Reason: per Hypoglycemia Standing Ord. Guaifenesin (Guaifenesin 100 Mg/5 Ml Liquid) 10 ml PO Q4H PRN PRN Reason: Cough Ampicillin Sodium/Sulbactam (Sodium 3 gm/ Sodium Chloride) 100 mls @ 200 mls/hr IV Q12H [facility] Last Infusion: 02/27/24 12:49 Dose: Infused Vancomycin HCl 1,250 mg/ (Sodium Chloride) 250 mls @ 166.667 mls/hr IV Q24H [facility] Insulin Glargine (Insulin Glargine,Hum.Rec.Anlog 100 Unit/Ml 10 Ml Vial) 5 unit SUBCUT BEDTIME [facility] Insulin Human Lispro (Insulin Lispro 100 Unit/Ml 3 Ml Vial) 0 unit SUBCUT QIDACHS [facility]; Protocol Last Admin: 02/27/24 18:15 Dose: 2 unit Lactulose (Lactulose 20 Gm/30 Ml Solution) 20 gm PO DAILY [facility] Last Admin: 02/27/24 09:00 Dose: 20 gm Losartan Potassium (Losartan Potassium 25 Mg Tablet) 25 mg PO BEDTIME [facility]; Protocol Melatonin (Melatonin 3 Mg Tablet) 6 mg PO BEDTIME PRN PRN Reason: Insomnia Metformin HCl (Metformin Hcl 500 Mg Tablet) 500 mg PO BID [facility] Last Admin: 02/27/24 16:12 Dose: 500 mg Multi-Ingred Cream/Lotion/Oil/Oint (Mineral Oil/Petrolatum,White 106 Gm Tube) 1 appl TOPICAL BID [facility] Last Admin: 02/27/24 09:08 Dose: 1 appl Ondansetron HCl (Ondansetron Hcl 4 Mg/2 Ml Vial) 4 mg IVPUSH Q8H PRN PRN Reason: Nausea and Vomiting Pharmacy Consult (Consult Rx Vancomycin Dosing) 1 each MISCELLANE DAILY PRN PRN Reason: Consult order Polyethylene Glycol (Polyethylene Glycol 3350 17 Gm Powd.Pack) 17 gm PO DAILY [facility] Last Admin: 02/27/24 09:01 Dose: 17 gm Prednisone (Prednisone 2.5 Mg Tablet) 2.5 mg PO DAILY [facility] Last Admin: 02/27/24 09:01 Dose: 2.5 mg Senna (Sennosides 8.6 Mg Tablet) 17.2 mg PO BEDTIME [facility] Last Admin: 02/26/24 21:35 Dose: 17.2 mg Sodium Chloride (0.9 % Sodium Chloride Flush 3 Ml Syringe) 3 ml IVFLUSH QSHIFT [facility] Last Admin: 02/27/24 16:12 Dose: 3 ml Zolpidem Tartrate (Zolpidem Tartrate 5 Mg Tablet) 5 mg PO BEDTIME [facility] Last Admin: 02/26/24 21:35 Dose: 5 mg Home Medications Medication Instructions Recorded Confirmed Last Taken Type gabapentin 300 mg capsule 300 mg PO BID@0630,1200 10/09/20 02/25/24 Unknown History metformin 500 mg tablet 500 mg PO BID 10/09/20 02/25/24 Unknown History tramadol 50 mg tablet 50 mg PO Q24H PRN Pain, Moderate 10/09/20 02/25/24 Unknown History acetaminophen 325 mg tablet 650 mg PO Q4H PRN Moderate Pain 03/13/21 02/25/24 Unknown History (Scale Score 5-6) aspirin 81 mg chewable tablet 81 mg PO DAILY 03/13/21 02/25/24 Unknown History rosuvastatin 10 mg tablet 10 mg PO DAILY 03/13/21 02/25/24 Unknown History guaifenesin 100 mg/5 mL oral 200 mg PO Q4H PRN Cough 05/19/21 02/25/24 Unknown History liquid (Diabetic Tussin EX) prednisone 2.5 mg tablet 2.5 mg PO DAILY 05/19/21 02/25/24 Unknown History amlodipine 10 mg tablet 10 mg PO DAILY 11/16/23 02/25/24 Unknown History bismuth subsalicylate 262 mg/15 mL 524 mg PO Q8H PRN UPSET 11/16/23 02/25/24 Unknown History oral suspension (Pepto-Bismol) STOMACH/NAUSEA ceramides 1,3,6-II (CeraVe topical 1 appl topical BID Dry Skin 11/16/23 02/25/24 Unknown History cream) docusate sodium 100 mg capsule 100 mg PO BID 11/16/23 02/25/24 Unknown History (Colace) famotidine 20 mg tablet 20 mg PO BID 11/16/23 02/25/24 Unknown History folic acid 1 mg tablet 1 mg PO SUTUWETHFRSA 11/16/23 02/25/24 Unknown History gabapentin 800 mg tablet 800 mg PO BEDTIME 11/16/23 02/25/24 Unknown History insulin glargine-yfgn 100 unit/mL 5 unit subcut BEDTIME 11/16/23 02/25/24 Unknown History subcutaneous solution lactulose 10 gram/15 mL oral 30 ml PO DAILY 11/16/23 02/25/24 Unknown History solution (Enulose) losartan 25 mg tablet 25 mg PO BEDTIME 11/16/23 02/25/24 Unknown History melatonin 5 mg tablet 5 mg PO BEDTIME PRN Insomnia 11/16/23 02/25/24 Unknown History ondansetron 4 mg disintegrating 4 mg PO Q8H PRN Nausea 11/16/23 02/25/24 Unknown History tablet polyethylene glycol 3350 17 17 g PO DAILY 11/16/23 02/25/24 Unknown History gram/dose oral powder (Miralax) sennosides 8.6 mg tablet (senna) 17.2 mg PO BEDTIME 11/16/23 02/25/24 Unknown History zolpidem 6.25 mg tablet,extended 6.25 mg PO BEDTIME 11/16/23 02/25/24 Unknown History release,multiphase methotrexate sodium 2.5 mg tablet 15 mg PO MO 02/25/24 02/25/24 Unknown History Physical Exam Vital Signs: Vital Signs: Last Vital Signs Temp 98.4 F 02/27/24 19:44 Pulse 102 H 02/27/24 19:44 Resp 18 02/27/24 19:44 BP 153/65 H 02/27/24 19:44 Pulse Ox 100 02/27/24 19:44 O2 Del Method Room Air 02/27/24 19:44 BMI result Body Mass Index 26.9 Back/Spine/Pelvis: Other: stage 2 scaly mild redness 5 cm ,no purulence or open areas seen now, mid sacral area Nunez clear no oxygen Results Labs 02/27/24 07:05 02/27/24 07:05 Labs: Short CBC 02/27/24 Range/Units 07:05 WBC 10.4 (4.8-10.8) X10*3/uL Hgb 9.3 L (14.0-18.0) g/dl Hct 28.4 L (42.0-52.0) % Plt Count 297 (160-400) X10*3/uL BMP 02/27/24 07:05 Sodium 140 Potassium 3.5 Chloride 107 Carbon Dioxide 24 BUN 17 H Creatinine 1.03 Calcium 8.7 Microbiology Microbiology Results: Microbiology 02/25/24 Unknown Urine clean catch - Urine marr top Urine Culture - Final 02/26/24 11:07 Coccyx Gram Stain - Final 02/26/24 11:07 Coccyx Routine Culture - Preliminary Culture in progress. 02/25/24 20:09 Blood - Venous Blood Culture - Preliminary No growth after 24 hours. 02/25/24 19:44 Blood - Venous Blood Culture - Preliminary No growth after 24 hours. Assessment and Plan (1) Obstructive uropathy: Status: Acute (2) Chronic indwelling Nunez catheter: Status: Acute (3) Aspiration into airway: Status: Acute (4) Acute metabolic encephalopathy: Status: Acute Plan He has acute encephalopathy by report. He has clear urine. He has no hypoxia or sputum production and only atelectasis on chest film. He has small hyperemic area buttocks but no signs of infection and no OM on CT and appears culture was taken of intact skin,not pus or [place] wound and this would not be useful for culture. He has possible bronchiectasis or viral syndrome. Would continue Unasyn and Vancomycin and stop if no bacteremia and remaining stable and switch when improved to po Doxycycline for 10 days as well as po Augmentin for 10 days.
[2024-02-27] MEDS: Sennosides 8.6 MG TABLET 17.2 MG PO (22:01)
[2024-02-27] MEDS: Gabapentin 400 MG CAPSULE 800 MG PO (22:08)
[2024-02-27] MEDS: Insulin Glargine,Hum.rec.anlog 100 UNIT/ML 10 ML VIAL SUBCUT (22:15)
[2024-02-27] MEDS: Zolpidem Tartrate 5 MG TABLET PO (22:22)
[2024-02-27] MEDS: Losartan Potassium 25 MG TABLET PO (22:22)
--- NOTE | 2024-02-27 22:24 | P.PNNP_ITS ---
Subjective Subjective Date of Service: 02/27/24 Interval history: fully awake and alert today, renal function improved Physical Exam 2 Vital Signs: Vital Signs: Last Vital Signs Temp 98.4 F 02/27/24 19:44 Pulse 102 H 02/27/24 19:44 Resp 18 02/27/24 19:44 BP 153/65 H 02/27/24 19:44 Pulse Ox 100 02/27/24 19:44 O2 Del Method Room Air 02/27/24 19:44 BMI result Body Mass Index 26.9 Const: General: comfortable and no acute distress HEENT: Head: Yes normocephalic Eyes: EOM: EOMs intact bilaterally Neck: Neck: Yes supple Resp: Auscultation: clear to auscultation bilaterally Cardio: Jugular venous distension: no JVD Rate: regular rate GI: Palpation (GI): Soft to palpation Auscultation: normal bowel sounds : General: Yes no CVA tenderness Back/Spine/Pelvis: Back: no CVA tenderness Skin: General skin exam: no rashes or lesions noted Neuro: General: moves all extremities Objective Data Labs 02/27/24 07:05 02/27/24 07:05 Labs: Laboratory Results - last 24 hr 02/27/24 02/27/24 02/27/24 02:44 07:05 07:37 WBC 10.4 RBC 3.07 L Hgb 9.3 L Hct 28.4 L MCV 92.5 MCH 30.3 MCHC 32.7 RDW 18.2 H Plt Count 297 MPV 9.4 Absolute Nucleated RBC 0.000 Nucleated RBC % (auto) 0.0 Sodium 140 Potassium 3.5 Chloride 107 Carbon Dioxide 24 Anion Gap 13 BUN 17 H Creatinine 1.03 Estim Creat Clear Calc 62.9 Estimated GFR > 60 POC Glucose 112 100 Random Glucose 106 Estimat Average Glucose 120 Hemoglobin A1c % 5.8 Calcium 8.7 Random Vancomycin 02/27/24 02/27/24 02/27/24 11:19 15:28 19:00 WBC RBC Hgb Hct MCV MCH MCHC RDW Plt Count MPV Absolute Nucleated RBC Nucleated RBC % (auto) Sodium Potassium Chloride Carbon Dioxide Anion Gap BUN Creatinine Estim Creat Clear Calc Estimated GFR POC Glucose 158 H 227 H Random Glucose Estimat Average Glucose Hemoglobin A1c % Calcium Random Vancomycin 14.3 L 02/27/24 21:19 WBC RBC Hgb Hct MCV MCH MCHC RDW Plt Count MPV Absolute Nucleated RBC Nucleated RBC % (auto) Sodium Potassium Chloride Carbon Dioxide Anion Gap BUN Creatinine Estim Creat Clear Calc Estimated GFR POC Glucose 197 H Random Glucose Estimat Average Glucose Hemoglobin A1c % Calcium Random Vancomycin Microbiology Microbiology Results: Microbiology 02/25/24 20:09 Blood - Venous Blood Culture - Preliminary No growth after 48 hours. 02/25/24 19:44 Blood - Venous Blood Culture - Preliminary No growth after 48 hours. 02/25/24 Unknown Urine clean catch - Urine marr top Urine Culture - Final 02/26/24 11:07 Coccyx Gram Stain - Final 02/26/24 11:07 Coccyx Routine Culture - Preliminary Culture in progress. Procedures Date of Service Date of Service: 02/27/24 Assessment & Plan Assessment and plan (1) EDWARD (acute kidney injury): Status: Acute Plan Acute kidney injury most likely due to hypoperfusion. With IV hydration renal function has improved. There could be a component obstructive uropathy CT scan shows outlet obstruction but this could be a chronic finding. There is evidence of cystitis on CT scan. Renal function improved with supportive care Concur with rest of current medical management . Progress Note: Quality Stroke Does the patient have a stroke diagnosis?: No
[2024-02-27] MEDS: vancomycin HCL 1,250 MG in 0.9 % Sodium Chloride 250 ML 166.67 MG IV (22:26)
[2024-02-28] VITALS (8 sets, daily range): BP systolic 142–180; BP diastolic 60–86; PULSE 90–106; RESP 16–18; TEMP 36.1–36.7; O2SAT 96–100
[2024-02-28] MEDS: diphenhydrAMINE HCL 50 MG/ML VIAL 25 MG IVPUSH (00:39)
[2024-02-28] MEDS: Mineral Oil/Petrolatum,White 106 GM Tube 1 APPL TOPICAL ×2 (00:48→21:46)
[2024-02-28] MEDS: Ampicillin Sodium/Sulbactam Na 3 GM in 0.9 % Sodium Chloride 100 ML IV ×3 (01:10→21:44)
[2024-02-28] MEDS: 0.9 % Sodium Chloride Flush 3 ML SYRINGE IVFLUSH ×4 (01:10→19:56)
[2024-02-28] MEDS: Gabapentin 300 MG CAPSULE PO ×2 (06:46→13:34)
[2024-02-28 07:40] LABS: Glucose, Whole Blood 108 mg/dL (60-115)
[2024-02-28 09:16] LABS: Hemoglobin 9.8 g/dl (14.0-18.0); Mean Corpuscular HGB Conc 33.8 g/dl (31.0-36.0); Mean Corpuscular Hemoglobin 30.3 pg (27.0-33.0); Mean Corpuscular Volume 89.8 fL (80.0-98.0); Mean Platelet Volume 9.5 fL (9.4-12.4); Platelet Count 326 X10*3/uL (160-400); Red Blood Count 3.23 X10*6/uL (4.60-5.80); Red Cell Distribution Width 17.7 % (11.0-16.0); White Blood Count 9.8 X10*3/uL (4.8-10.8)
[2024-02-28] MEDS: polyethylene glycoL 3350 17 GM POWD.PACK PO (09:40)
[2024-02-28] MEDS: Lactulose 20 GM/30 ML SOLUTION PO (09:40)
[2024-02-28] MEDS: Famotidine 20 MG TABLET PO ×2 (09:40→20:41)
[2024-02-28] MEDS: Atorvastatin Calcium 40 MG TABLET PO (09:40)
[2024-02-28] MEDS: metFORMIN HCl 500 MG TABLET PO ×2 (09:41→20:41)
[2024-02-28] MEDS: Baclofen 20 MG TABLET PO ×3 (09:41→20:41)
[2024-02-28] MEDS: predniSONE 2.5 MG TABLET PO (09:41)
[2024-02-28 09:42] LABS: Anion Gap 12 (12-20); Blood Urea Nitrogen 16 mg/dL (9-16); Calcium 8.9 mg/dL (8.4-10.2); Carbon Dioxide 24 mmol/L (22-29); Chloride 105 mmol/L (96-108); Creatinine Clr Calc Pharmacy 81.1; Estimated Glomerular Filt Rate > 60; Glucose Random 114 mg/dL (60-115); Potassium 3.6 mmol/L (3.3-5.1); Sodium 137 mmol/L (135-145)
[2024-02-28] MEDS: Folic Acid 1 MG TABLET PO (10:11)
[2024-02-28 11:43] LABS: Glucose, Whole Blood 119 mg/dL (60-115)
--- NOTE | 2024-02-28 12:26 | P.PNIM_ITS ---
Subjective Subjective Date of Service: 02/28/24 Physical Exam 2 Vital Signs: Vital Signs: Last Vital Signs Temp 97.6 F 02/28/24 11:19 Pulse 100 02/28/24 11:19 Resp 18 02/28/24 11:19 BP 142/84 H 02/28/24 11:19 Pulse Ox 97 02/28/24 11:19 O2 Del Method Room Air 02/28/24 11:19 BMI result Body Mass Index 26.9 Objective Data Active Medications Acetaminophen (Acetaminophen 325 Mg Tablet) 650 mg PO Q6H PRN PRN Reason: Pain, Mild (Pain Scale 1-3) Atorvastatin Calcium (Atorvastatin Calcium 40 Mg Tablet) 40 mg PO DAILY [facility] Last Admin: 02/28/24 09:40 Dose: 40 mg Documented By: ORA Baclofen (Baclofen 20 Mg Tablet) 20 mg PO TID [facility] Last Admin: 02/28/24 09:41 Dose: 20 mg Documented By: ORA Bismuth Subsalicylate (Bismuth Subsalicylate Liquid 524 Mg/30 Ml Oral.Susp) 524 mg PO Q8H PRN PRN Reason: UPSET STOMACH/NAUSEA Dextrose (Dextrose 50 % 25 Gm/50 Ml Syringe) 25 gm IVPUSH Q15M PRN; Protocol PRN Reason: per Hypoglycemia Standing Ord. Dextrose (Dextrose 50 % 25 Gm/50 Ml Syringe) 25 gm IVPUSH Q15M PRN; Protocol PRN Reason: per Hypoglycemia Standing Ord. Famotidine (Famotidine 20 Mg Tablet) 20 mg PO BID [facility] Last Admin: 02/28/24 09:40 Dose: 20 mg Documented By: ORA Folic Acid (Folic Acid 1 Mg Tablet) 1 mg PO SuTuWeThFrSa@0900 [facility] Last Admin: 02/28/24 10:11 Dose: 1 mg Documented By: ORA Gabapentin (Gabapentin 300 Mg Capsule) 300 mg PO BID@0630,1200 [facility] Last Admin: 02/28/24 06:46 Dose: 300 mg Documented By: JUSTIN Gabapentin (Gabapentin 400 Mg Capsule) 800 mg PO BEDTIME [facility] Last Admin: 02/27/24 22:08 Dose: 800 mg Documented By: JUSTIN Glucose (Glucose Gel 15 Gm Gel..Gram.) 15 gm PO Q15M PRN; Protocol PRN Reason: per Hypoglycemia Standing Ord. Guaifenesin (Guaifenesin 100 Mg/5 Ml Liquid) 10 ml PO Q4H PRN PRN Reason: Cough Ampicillin Sodium/Sulbactam (Sodium 3 gm/ Sodium Chloride) 100 mls @ 200 mls/hr IV Q12H [facility] Last Infusion: 02/28/24 10:42 Dose: Infused Documented By: ORA Vancomycin HCl 1,250 mg/ (Sodium Chloride) 250 mls @ 166.667 mls/hr IV Q24H [facility] Last Infusion: 02/28/24 04:21 Dose: Infused Documented By: JUSTIN Insulin Glargine (Insulin Glargine,Hum.Rec.Anlog 100 Unit/Ml 10 Ml Vial) 5 unit SUBCUT BEDTIME [facility] Last Admin: 02/27/24 22:15 Dose: 5 unit Documented By: JUSTIN Insulin Human Lispro (Insulin Lispro 100 Unit/Ml 3 Ml Vial) 0 unit SUBCUT QIDACHS [facility]; Protocol Last Admin: 02/28/24 11:54 Dose: Not Given Documented By: ORA Non-Admin Reason: No Insulin Coverage Comments: per sliding scale Lactulose (Lactulose 20 Gm/30 Ml Solution) 20 gm PO DAILY [facility] Last Admin: 02/28/24 09:40 Dose: 20 gm Documented By: ORA Losartan Potassium (Losartan Potassium 25 Mg Tablet) 25 mg PO BEDTIME [facility]; Protocol Last Admin: 02/27/24 22:22 Dose: 25 mg Documented By: JUSTIN Melatonin (Melatonin 3 Mg Tablet) 6 mg PO BEDTIME PRN PRN Reason: Insomnia Metformin HCl (Metformin Hcl 500 Mg Tablet) 500 mg PO BID [facility] Last Admin: 02/28/24 09:41 Dose: 500 mg Documented By: ORA Multi-Ingred Cream/Lotion/Oil/Oint (Mineral Oil/Petrolatum,White 106 Gm Tube) 1 appl TOPICAL BID [facility] Last Admin: 02/28/24 10:51 Dose: Not Given Documented By: ORA Non-Admin Reason: Patient Refused Ondansetron HCl (Ondansetron Hcl 4 Mg/2 Ml Vial) 4 mg IVPUSH Q8H PRN PRN Reason: Nausea and Vomiting Pharmacy Consult (Consult Rx Vancomycin Dosing) 1 each MISCELLANE DAILY PRN PRN Reason: Consult order Polyethylene Glycol (Polyethylene Glycol 3350 17 Gm Powd.Pack) 17 gm PO DAILY [facility] Last Admin: 02/28/24 09:40 Dose: 17 gm Documented By: ORA Prednisone (Prednisone 2.5 Mg Tablet) 2.5 mg PO DAILY [facility] Last Admin: 02/28/24 09:41 Dose: 2.5 mg Documented By: ORA Senna (Sennosides 8.6 Mg Tablet) 17.2 mg PO BEDTIME [facility] Last Admin: 02/27/24 22:01 Dose: 17.2 mg Documented By: JUSTIN Sodium Chloride (0.9 % Sodium Chloride Flush 3 Ml Syringe) 3 ml IVFLUSH QSHIFT [facility] Last Admin: 02/28/24 10:11 Dose: 3 ml Documented By: ORA Zolpidem Tartrate (Zolpidem Tartrate 5 Mg Tablet) 5 mg PO BEDTIME [facility] Last Admin: 02/27/24 22:22 Dose: 5 mg Documented By: JUSTIN Labs 02/28/24 08:57 02/28/24 08:57 Labs: Laboratory Results - last 24 hr 02/27/24 02/27/24 02/27/24 07:05 15:28 19:00 MCV MCH MCHC RDW Plt Count MPV Absolute Nucleated RBC Nucleated RBC % (auto) Anion Gap Estim Creat Clear Calc Estimated GFR POC Glucose 227 H Random Glucose Estimat Average Glucose 120 Hemoglobin A1c % 5.8 Calcium Random Vancomycin 14.3 L 02/27/24 02/28/24 02/28/24 21:19 07:35 08:57 MCV 89.8 MCH 30.3 MCHC 33.8 RDW 17.7 H Plt Count 326 MPV 9.5 Absolute Nucleated RBC 0.000 Nucleated RBC % (auto) 0.0 Anion Gap 12 Estim Creat Clear Calc 81.1 Estimated GFR > 60 POC Glucose 197 H 108 Random Glucose 114 Estimat Average Glucose Hemoglobin A1c % Calcium 8.9 Random Vancomycin 02/28/24 11:35 MCV MCH MCHC RDW Plt Count MPV Absolute Nucleated RBC Nucleated RBC % (auto) Anion Gap Estim Creat Clear Calc Estimated GFR POC Glucose 119 H Random Glucose Estimat Average Glucose Hemoglobin A1c % Calcium Random Vancomycin Microbiology Microbiology Results: Microbiology 02/26/24 11:07 Gram Stain - Final Coccyx Routine Culture - Preliminary Gram negative adriane 02/25/24 20:09 Blood Culture - Preliminary Blood - Venous No growth after 48 hours. 02/25/24 19:44 Blood Culture - Preliminary Blood - Venous No growth after 48 hours. 02/25/24 Unknown Urine Culture - Final Urine clean catch - Urine marr top Assessment and Plan (1) Decubitus ulcer of coccygeal region, stage 2: Status: Acute (2) Aspiration into airway: Status: Acute (3) Urinary tract infection in elderly patient: Status: Acute (4) Acute metabolic encephalopathy: Status: Acute Plan 78-year-old gentleman with past medical history of MS chronically bed-bound, bullous pemphigoid on chronic steroids, with chronic bilateral lower extremity weakness, BPH, depression, type 2 diabetes mellitus on insulin, crohns, chronic UTIs (pansensitve proteus) with indwelling Carty catheter resident of nursing facility admitted for further management of acute metabolic encephalopathy related to infection likely UTI, possible aspiration pneumonia, and cellulitis coccygeal ulcer as well as acute kidney injury #Acute metabolic encephalopathy--likely related to acute infection, dehydration, HCT no acute finding, reportedly at baseline oriented x 3 -treat underlying issues as below. She is back to his baseline mental status #Acute kidney injury- likely d/t pre renal azotemia from decrease oral water intake, and possible obstrucitve uropathy. Creatine within angela l -Bladder outet obstruction noted on CT, keep carty, pper Uro #Hyperchloremic met acidosis d/t IVF, change to lactated ringers, resolved, stop fluid #Carty catheter associated UTI -cultures no growth -continue Abx (Unassyn)--seems to be responding to this, WBC down - #? Suspected aspiration pneumonia---No hypoxia, CXR and CT of chest show atelctasis, and therefore no PNA but at risk for aspiration. -Diet per speech #stage 2 decubitus ulcer coccyx with purulent cellulitis, multi organisms on gram stain, wound culture so far gram negatives -CRP 17, leukocytosis 15.7. No other SIRS criteria -blood cultures negative, stop Vanco, add PO Doxy and wait for wound culture result -wound RN consult - ID # insulin-dependent type 2 diabetes -POC glucose, advanced to diabetic diet -patient on 5 units basal insulin, resume basal # MS -bed-bound at baseline -continue home meds # history of bullous pemphigoid -continue prednisone. Hold methotrexate in setting of acute infection # hypertension -blood pressure is soft. Hold amlodipine. Hold losartan in setting of EDWARD -monitor blood pressures dvt prophylaxis- renally adjusted Lovenox Full code per MOLST form, will readdress Healthcare proxy, Alyx need for inpatient: metabolic ecephalopathy d/t acute infection, requiring IV Abx , IV fluid for acute kindney injury Quality Stroke Does the patient have a stroke diagnosis?: No VTE Prior VTE?: No VTE Risk Level:: Medical - moderate - high VTE Device Contraindication: Treatment Not Indicated VTE Drug Contraindication: N/A - Med Ordered
[2024-02-28 16:06] LABS: Glucose, Whole Blood 172 mg/dL (60-115)
[2024-02-28] MEDS: Insulin Lispro 100 UNIT/ML 3 ML VIAL SUBCUT ×2 (16:56→20:42)
[2024-02-28 20:27] LABS: Glucose, Whole Blood 212 mg/dL (60-115)
[2024-02-28] MEDS: Zolpidem Tartrate 5 MG TABLET PO (20:41)
[2024-02-28] MEDS: Gabapentin 400 MG CAPSULE 800 MG PO (20:41)
[2024-02-28] MEDS: Sennosides 8.6 MG TABLET 17.2 MG PO (20:41)
[2024-02-28] MEDS: Insulin Glargine,Hum.rec.anlog 100 UNIT/ML 10 ML VIAL SUBCUT (20:41)
[2024-02-28] MEDS: Losartan Potassium 25 MG TABLET PO (21:44)
--- NOTE | 2024-02-29 01:38 | PC.NURSE ---
357 Reva Omero has chronic f/c. after 0, bloody pink urine output 300 mL. it was little bit leaking with blood in the gland of penis but not noticeable into f/c, now bloody thread, noticeable. no blood thinner, H&H 9.8L, 29.0L, made aware. said a few days ago, also noticeable. urology f/u. no action need at this time. will cont. monitor
[2024-02-29 03:59] VITALS: BP 136/64; PULSE 99; RESP 18; TEMP 36.6; O2SAT 96
[2024-02-29] MEDS: Gabapentin 300 MG CAPSULE PO ×2 (05:38→11:35)
[2024-02-29 06:14] LABS: Anion Gap 13 (12-20); Blood Urea Nitrogen 19 mg/dL (9-16); Calcium 8.4 mg/dL (8.4-10.2); Carbon Dioxide 24 mmol/L (22-29); Chloride 106 mmol/L (96-108); Creatinine Clr Calc Pharmacy 84.2; Estimated Glomerular Filt Rate > 60; Glucose Random 98 mg/dL (60-115); Potassium 3.5 mmol/L (3.3-5.1); Sodium 139 mmol/L (135-145)
--- NOTE | 2024-02-29 07:20 | P.PNIM_ITS ---
Subjective Subjective Date of Service: 02/29/24 Interval History: f/u on acute metabolic encephalopathy, UTI, interval history:encephalopathy resolved, overall doing well, wound growing GNR Physical Exam 2 Vital Signs: Vital Signs: Last Vital Signs Temp 97.8 F 02/29/24 03:59 Pulse 99 02/29/24 03:59 Resp 18 02/29/24 03:59 BP 136/64 02/29/24 03:59 Pulse Ox 96 02/29/24 03:59 O2 Del Method Room Air 02/29/24 03:59 BMI result Body Mass Index 26.9 Constitutional - alert and oriented, no distress Cardiovascular - S1S2, RRR, No edema Respiratory - Normal lung expansion, Normal respiratory effort, No respiratory distress, rhonchi crackles L lung and R base Gastrointestinal -mild distention, no signs of tenderness Extremities - no calf tenderness bilaterally, no swelling Skin - Warm/Dry. Stage 2 decubitus ulcer coccyx with small amount of purulent drainage and surrounding erythema, multiple scabs on legs Neurological awake, no focal neuro deficit Psychological -flat affect Objective Data Active Medications Acetaminophen (Acetaminophen 325 Mg Tablet) 650 mg PO Q6H PRN PRN Reason: Pain, Mild (Pain Scale 1-3) Atorvastatin Calcium (Atorvastatin Calcium 40 Mg Tablet) 40 mg PO DAILY [facility] Last Admin: 02/28/24 09:40 Dose: 40 mg Documented By: ORA Baclofen (Baclofen 20 Mg Tablet) 20 mg PO TID [facility] Last Admin: 02/28/24 20:41 Dose: 20 mg Documented By: CHANO Bismuth Subsalicylate (Bismuth Subsalicylate Liquid 524 Mg/30 Ml Oral.Susp) 524 mg PO Q8H PRN PRN Reason: UPSET STOMACH/NAUSEA Dextrose (Dextrose 50 % 25 Gm/50 Ml Syringe) 25 gm IVPUSH Q15M PRN; Protocol PRN Reason: per Hypoglycemia Standing Ord. Dextrose (Dextrose 50 % 25 Gm/50 Ml Syringe) 25 gm IVPUSH Q15M PRN; Protocol PRN Reason: per Hypoglycemia Standing Ord. Famotidine (Famotidine 20 Mg Tablet) 20 mg PO BID [facility] Last Admin: 02/28/24 20:41 Dose: 20 mg Documented By: CHANO Folic Acid (Folic Acid 1 Mg Tablet) 1 mg PO SuTuWeThFrSa@0900 [facility] Last Admin: 02/28/24 10:11 Dose: 1 mg Documented By: ORA Gabapentin (Gabapentin 300 Mg Capsule) 300 mg PO BID@0630,1200 [facility] Last Admin: 02/29/24 05:38 Dose: 300 mg Documented By: CHANO Gabapentin (Gabapentin 400 Mg Capsule) 800 mg PO BEDTIME [facility] Last Admin: 02/28/24 20:41 Dose: 800 mg Documented By: CHANO Glucose (Glucose Gel 15 Gm Gel..Gram.) 15 gm PO Q15M PRN; Protocol PRN Reason: per Hypoglycemia Standing Ord. Guaifenesin (Guaifenesin 100 Mg/5 Ml Liquid) 10 ml PO Q4H PRN PRN Reason: Cough Ampicillin Sodium/Sulbactam (Sodium 3 gm/ Sodium Chloride) 100 mls @ 200 mls/hr IV Q12H [facility] Last Infusion: 02/28/24 22:14 Dose: Infused Documented By: CHANO Insulin Glargine (Insulin Glargine,Hum.Rec.Anlog 100 Unit/Ml 10 Ml Vial) 5 unit SUBCUT BEDTIME [facility] Last Admin: 02/28/24 20:41 Dose: 5 unit Documented By: CHANO Insulin Human Lispro (Insulin Lispro 100 Unit/Ml 3 Ml Vial) 0 unit SUBCUT QIDACHS [facility]; Protocol Last Admin: 02/28/24 20:42 Dose: 4 unit Documented By: CHANO Lactulose (Lactulose 20 Gm/30 Ml Solution) 20 gm PO DAILY [facility] Last Admin: 02/28/24 09:40 Dose: 20 gm Documented By: ORA Losartan Potassium (Losartan Potassium 25 Mg Tablet) 25 mg PO BEDTIME [facility]; Protocol Last Admin: 02/28/24 21:44 Dose: 25 mg Documented By: CHANO Melatonin (Melatonin 3 Mg Tablet) 6 mg PO BEDTIME PRN PRN Reason: Insomnia Metformin HCl (Metformin Hcl 500 Mg Tablet) 500 mg PO BID [facility] Last Admin: 02/28/24 20:41 Dose: 500 mg Documented By: CHANO Multi-Ingred Cream/Lotion/Oil/Oint (Mineral Oil/Petrolatum,White 106 Gm Tube) 1 appl TOPICAL BID [facility] Last Admin: 02/28/24 21:46 Dose: 1 appl Documented By: CHANO Ondansetron HCl (Ondansetron Hcl 4 Mg/2 Ml Vial) 4 mg IVPUSH Q8H PRN PRN Reason: Nausea and Vomiting Pharmacy Consult (Consult Rx Vancomycin Dosing) 1 each MISCELLANE DAILY PRN PRN Reason: Consult order Polyethylene Glycol (Polyethylene Glycol 3350 17 Gm Powd.Pack) 17 gm PO DAILY [facility] Last Admin: 02/28/24 09:40 Dose: 17 gm Documented By: ORA Prednisone (Prednisone 2.5 Mg Tablet) 2.5 mg PO DAILY [facility] Last Admin: 02/28/24 09:41 Dose: 2.5 mg Documented By: ORA Senna (Sennosides 8.6 Mg Tablet) 17.2 mg PO BEDTIME [facility] Last Admin: 02/28/24 20:41 Dose: 17.2 mg Documented By: CHANO Sodium Chloride (0.9 % Sodium Chloride Flush 3 Ml Syringe) 3 ml IVFLUSH QSHIFT [facility] Last Admin: 02/28/24 19:56 Dose: 3 ml Documented By: CHANO Zolpidem Tartrate (Zolpidem Tartrate 5 Mg Tablet) 5 mg PO BEDTIME [facility] Last Admin: 02/28/24 20:41 Dose: 5 mg Documented By: CHANO Labs 02/28/24 08:57 02/29/24 05:10 Labs: Laboratory Results - last 24 hr 02/28/24 02/28/24 02/28/24 07:35 08:57 11:35 MCV 89.8 MCH 30.3 MCHC 33.8 RDW 17.7 H Plt Count 326 MPV 9.5 Absolute Nucleated RBC 0.000 Nucleated RBC % (auto) 0.0 Hold Purple Top Anion Gap 12 Estim Creat Clear Calc 81.1 Estimated GFR > 60 POC Glucose 108 119 H Random Glucose 114 Calcium 8.9 02/28/24 02/28/24 02/29/24 16:02 20:23 05:10 MCV MCH MCHC RDW Plt Count MPV Absolute Nucleated RBC Nucleated RBC % (auto) Hold Purple Top SEE NOTE Anion Gap 13 Estim Creat Clear Calc 84.2 Estimated GFR > 60 POC Glucose 172 H 212 H Random Glucose 98 Calcium 8.4 Microbiology Microbiology Results: Microbiology 02/26/24 11:07 Gram Stain - Final Coccyx Routine Culture - Preliminary Gram negative adriane Assessment and Plan (1) Decubitus ulcer of coccygeal region, stage 2: Status: Acute (2) Aspiration into airway: Status: Acute (3) Urinary tract infection in elderly patient: Status: Acute (4) Acute metabolic encephalopathy: Status: Acute Plan 78-year-old gentleman with past medical history of MS chronically bed-bound, bullous pemphigoid on chronic steroids, with chronic bilateral lower extremity weakness, BPH, depression, type 2 diabetes mellitus on insulin, crohns, chronic UTIs (pansensitve proteus) with indwelling Carty catheter resident of nursing facility admitted for further management of acute metabolic encephalopathy related to infection likely UTI, possible aspiration pneumonia, and cellulitis coccygeal ulcer as well as acute kidney injury #Acute metabolic encephalopathy--likely related to acute infection, dehydration, HCT no acute finding, reportedly at baseline oriented x 3 -treat underlying issues as below. She is back to his baseline mental status #Acute kidney injury- likely d/t pre renal azotemia from decrease oral water intake, and possible obstrucitve uropathy. Creatine within angela l -Bladder outet obstruction noted on CT, keep carty, pper Uro #Hyperchloremic met acidosis d/t IVF, change to lactated ringers, resolved #Carty catheter associated UTI -cultures no growth -continue Abx (Unassyn)--seems to be responding to this, WBC down, change to PO Augmentin at dc - #? Suspected aspiration pneumonia---No hypoxia, CXR and CT of chest show atelctasis, and therefore no PNA but at risk for aspiration. -Diet per speech #stage 2 decubitus ulcer coccyx with purulent cellulitis, multi organisms on gram stain, wound culture so far gram negatives -CRP 17, leukocytosis 15.7. No other SIRS criteria -blood cultures negative, stopped Vanco, continue Unasyn and PO Doxy and wait for wound culture sensitivity -wound RN consult following - ID recommendation noted # insulin-dependent type 2 diabetes -POC glucose, advanced to diabetic diet -patient on 5 units basal insulin, resume basal # MS -bed-bound at baseline -continue home meds # history of bullous pemphigoid -continue prednisone. Hold methotrexate in setting of acute infection # hypertension, continue Losartan and resume Norvasc dvt prophylaxis- renally adjusted Lovenox Full code per [facility]OL[facility] form, will readdress Healthcare proxy, Alyx need for inpatient: metabolic ecephalopathy d/t acute infection, requiring IV Abx, and waiting on culture sensitivity Quality Stroke Does the patient have a stroke diagnosis?: No VTE Prior VTE?: No VTE Risk Level:: Medical - moderate - high VTE Device Contraindication: Treatment Not Indicated VTE Drug Contraindication: N/A - Med Ordered
[2024-02-29 07:39] LABS: Glucose, Whole Blood 95 mg/dL (60-115)
[2024-02-29 07:44] VITALS: BP 133/61; PULSE 88; RESP 16; TEMP 36.1; O2SAT 96
[2024-02-29] MEDS: Ampicillin Sodium/Sulbactam Na 3 GM in 0.9 % Sodium Chloride 100 ML IV (09:41)
[2024-02-29] MEDS: metFORMIN HCl 500 MG TABLET PO ×2 (09:42→20:55)
[2024-02-29] MEDS: polyethylene glycoL 3350 17 GM POWD.PACK PO (09:42)
[2024-02-29] MEDS: Docusate Sodium 100 MG CAPSULE PO ×2 (09:42→20:55)
[2024-02-29] MEDS: predniSONE 2.5 MG TABLET PO (09:42)
[2024-02-29] MEDS: Atorvastatin Calcium 40 MG TABLET PO (09:42)
[2024-02-29] MEDS: Lactulose 20 GM/30 ML SOLUTION PO (09:42)
[2024-02-29] MEDS: Baclofen 20 MG TABLET PO ×3 (09:42→20:55)
[2024-02-29] MEDS: amLODIPine Besylate 5 MG TABLET PO (09:43)
[2024-02-29] MEDS: Famotidine 20 MG TABLET PO ×2 (09:43→20:55)
[2024-02-29] MEDS: Mineral Oil/Petrolatum,White 106 GM Tube 1 APPL TOPICAL ×2 (09:45→20:59)
[2024-02-29] MEDS: Folic Acid 1 MG TABLET PO (10:02)
[2024-02-29 11:30] LABS: Glucose, Whole Blood 108 mg/dL (60-115)
[2024-02-29] MEDS: cefEPime HCl 2 GM in 0.9 % Sodium Chloride 50 ML IV ×2 (11:35→19:07)
[2024-02-29 12:00] VITALS: BP 148/64; PULSE 110; RESP 16; TEMP 36.3; O2SAT 97
[2024-02-29 15:21] VITALS: BP 124/66; PULSE 107; RESP 18; TEMP 36.6; O2SAT 96
[2024-02-29] MEDS: 0.9 % Sodium Chloride Flush 3 ML SYRINGE IVFLUSH ×2 (15:21→23:39)
[2024-02-29 16:27] LABS: Glucose, Whole Blood 176 mg/dL (60-115)
[2024-02-29] MEDS: Insulin Lispro 100 UNIT/ML 3 ML VIAL SUBCUT ×2 (17:00→20:56)
[2024-02-29 19:35] VITALS: BP 136/67; PULSE 92; RESP 17; TEMP 36.6; O2SAT 99
[2024-02-29 20:05] LABS: Vancomycin Random 10.8 mcg/mL (15-20)
[2024-02-29 20:31] LABS: Glucose, Whole Blood 188 mg/dL (60-115)
[2024-02-29] MEDS: Sennosides 8.6 MG TABLET 17.2 MG PO (20:55)
[2024-02-29] MEDS: Zolpidem Tartrate 5 MG TABLET PO (20:55)
[2024-02-29] MEDS: Gabapentin 400 MG CAPSULE 800 MG PO (20:55)
[2024-02-29] MEDS: Losartan Potassium 25 MG TABLET PO (20:55)
[2024-02-29] MEDS: Insulin Glargine,Hum.rec.anlog 100 UNIT/ML 10 ML VIAL SUBCUT (20:56)
[2024-02-29 23:18] VITALS: BP 120/62; PULSE 80; RESP 17; TEMP 36.7; O2SAT 97
[2024-03-01] MEDS: cefEPime HCl 2 GM in 0.9 % Sodium Chloride 50 ML IV ×2 (02:32→11:29)
[2024-03-01] MEDS: methocarbamoL 500 MG TABLET PO (03:38)
[2024-03-01 03:57] VITALS: BP 147/66; PULSE 94; RESP 17; TEMP 36.9; O2SAT 96
[2024-03-01] MEDS: Gabapentin 300 MG CAPSULE PO ×2 (05:42→11:30)
[2024-03-01 06:54] LABS: Creatinine Clr Calc Pharmacy 90.1; Estimated Glomerular Filt Rate > 60
[2024-03-01 07:17] VITALS: BP 137/66; PULSE 91; RESP 16; TEMP 36.3; O2SAT 96
[2024-03-01 07:51] LABS: Glucose, Whole Blood 106 mg/dL (60-115)
[2024-03-01] MEDS: metFORMIN HCl 500 MG TABLET PO (09:00)
[2024-03-01] MEDS: polyethylene glycoL 3350 17 GM POWD.PACK PO (09:00)
[2024-03-01] MEDS: predniSONE 2.5 MG TABLET PO (09:00)
[2024-03-01] MEDS: Lactulose 20 GM/30 ML SOLUTION PO (09:00)
[2024-03-01] MEDS: amLODIPine Besylate 5 MG TABLET PO (09:00)
[2024-03-01] MEDS: Baclofen 20 MG TABLET PO ×2 (09:00→14:13)
[2024-03-01] MEDS: Docusate Sodium 100 MG CAPSULE PO (09:00)
[2024-03-01] MEDS: Atorvastatin Calcium 40 MG TABLET PO (09:01)
[2024-03-01] MEDS: Famotidine 20 MG TABLET PO (09:01)
[2024-03-01] MEDS: 0.9 % Sodium Chloride Flush 3 ML SYRINGE IVFLUSH ×2 (09:01→14:13)
[2024-03-01] MEDS: Mineral Oil/Petrolatum,White 106 GM Tube 1 APPL TOPICAL (09:01)
--- NOTE | 2024-03-01 10:04 | MHC.CLN ---
F/U PT WITH INCREASED NUTRITION RISK R/T PRESSURE INJURY-STAGE II SACRUM. DIET RX: CHOPPED-APPROPRIATE. ENSURE MAX BID TO PROMOTE WOUND HEALING. SUPPLEMENT PROVIDES 300 KCALS, 60 G PROTEIN. INTAKE 50-100% WITH MOST MEALS 100%. MONITOR PO INTAKE AND SKIN INTEGRITY.
[2024-03-01 11:15] LABS: Glucose, Whole Blood 159 mg/dL (60-115)
[2024-03-01 11:28] VITALS: BP 145/67; PULSE 99; RESP 18; TEMP 36.3; O2SAT 96
[2024-03-01] MEDS: Insulin Lispro 100 UNIT/ML 3 ML VIAL SUBCUT (11:29)
--- NOTE | 2024-03-01 12:28 | PM.DS ---
DS: Providers Provider Date of Service: 03/01/24 Date of admission: 02/25/24 21:52 Primary care physician: Get Martin MD Consults: 02/25/24 21:58 Consult to Wound Care Routine Reason for consultation: stage 2 coccyx ulcer with purulent drainage 02/26/24 05:59 Consult to Urology Routine Consulting Provider: Miguel Angel Bartholomew Reason for consultation: hematuria 02/26/24 09:52 Consult to Nephrology Routine Consulting Provider: [facility] Reason for consultation: kiersten 02/27/24 12:40 Consult to Infectious Diseases Routine Consulting Provider: [facility] Reason for consultation: infected decub ulcer, PNA Has provider been notified: No DS: Diagnosis Discharge Diagnosis (1) Decubitus ulcer of coccygeal region, stage 2: Status: Acute (2) Aspiration into airway: Status: Resolved (3) Urinary tract infection in elderly patient: Status: Resolved (4) Acute metabolic encephalopathy: Status: Acute DS: Summary Hospital Course Hospital Course: Admission [facility] Complaint: ams 78-year-old gentleman with past medical history of MS chronically bed-bound, bullous pemphigoid on chronic steroids, with chronic bilateral lower extremity weakness, BPH, depression, type 2 diabetes mellitus on insulin, crohns, chronic UTIs (pansensitve proteus) with indwelling Carty catheter resident of nursing facility presented to the ED earlier today after being found lethargic, weak, minimally responsive today. His who regularly visits her at [facility] reports yesterday patient was baseline (a&ox3). On exam patient is somnolent but arousable, knows his name but continues repeating his name when asked other questions. No reported fevers, chills. No vomiting or diarrhea. Pt unable to provide further history. Since arrival blood pressures have been soft but no hypotension. Blood pressure on admission 120/60. Vitals otherwise stable. There is a leukocytosis of 15.7 with slight left shift. Stable normocytic anemia with H/H 9.7/29.4%. Creatinine 2.57, baseline 0.69. BUN 42. Sodium 134, electrolyte levels otherwise normal. Glucose 154. Initial lactic acid 1.4, repeat pending. Ammonia level 30. Troponin 5.6, BNP undetectable. CRP 17.75. Urinalysis with 3+ leukocytes, negative nitrites, 1+ blood, positive urinary sediment, 4+ bacteria. Negative for COVID-19, influenza, RSV. Chest x-ray negative for acute intrathoracic disease but shows chronic left basilar opacity/atelectasis and chronic blunting of the left costophrenic angle. EKG shows NSR, rate [address]/T-wave abnormality. In ED, has received 2 g cefepime, vancomycin, and 2.5 L IV NS. Hospital course: Patient presented with altered mental status and work up reavealed UTI, acute renal failure and infected wound. Hospital course by problem #Acute metabolic encephalopathy--likely related to acute infection (UIT, infected wound) , dehydration. CT of the head show no acute finding. Following IV hydration, and treatment of underlying infections, he's back at his baseline mental status, alert and oriented to self, place and time #Acute kidney injury- Initial creatine was 2.57, likely d/t pre renal azotemia from decrease oral water intake, and possible obstrucitve uropathy. Creatine following IVF and follow catheter inserted by Urology for Bladder outlet obstruction has returned to normal. Serum creatine is now normal at 0.72. Carty to remain in place and outpatient follow up with urology #Hyperchloremic met acidosis d/t IVF (normal saline), change to lactated ringers and resolvedresolved #Urinary tract infection.. -cultures no growth Ge was treated with Abx (Unassyn)--and has r responded, WBC is now normal #? Suspected aspiration pneumonia---No hypoxia, CXR and CT of chest show atelctasis, and therefore no PNA #stage 2 decubitus ulcer coccyx with purulent cellulitis, multi organisms on gram stain, wound culture grew Pseudomas He was treated with Vancomycin and Unassyn and since culture is showing Pseudomas, ID is recommending Cefepime for total of 5 days # insulin-dependent type 2 diabetes resume home regimel # MS -bed-bound at baseline -continue home meds # history of bullous pemphigoid -continue prednisone. resume methotrexate # hypertension, continue Losartan and resume Norvasc To return to SNF Time Attestation Discharge Coordination Time (in mins): 45 Quality: Safe Use of Opioids Does Pt have an Active Cancer Diagnosis on the Problem List?: No Quality: Stroke Does the patient have a stroke diagnosis?: No Physical Exam Vital Signs: Vital Signs: Last Vital Signs Temp 97.3 F 03/01/24 11:28 Pulse 99 03/01/24 11:28 Resp 18 03/01/24 11:28 BP 145/67 H 03/01/24 11:28 Pulse Ox 96 03/01/24 11:28 O2 Del Method Room Air 03/01/24 11:28 BMI result Body Mass Index 26.9 DS: Data Data Completed and Pending Labs on day of discharge: Laboratory Results - last 24 hr 02/29/24 02/29/24 02/29/24 16:22 19:07 20:25 Hold Purple Top Hold Blue Top Creatinine Estim Creat Clear Calc Estimated GFR POC Glucose 176 H 188 H Random Vancomycin 10.8 L 03/01/24 03/01/24 03/01/24 05:57 07:21 11:04 Hold Purple Top SEE NOTE Hold Blue Top SEE NOTE Creatinine 0.72 Estim Creat Clear Calc 90.1 Estimated GFR > 60 POC Glucose 106 159 H Random Vancomycin Preliminary micro results at discharge 02/25/24 20:09 Blood Culture - Preliminary Blood - Venous No growth after 48 hours. 02/25/24 19:44 Blood Culture - Preliminary Blood - Venous No growth after 48 hours. Discharge Plan Discharge Anticipated Discharge Date/Time: 03/01/24 12:18 Patient Disposition: er [facility] Discharge Diagnosis: Metabolic encephalopathy, UTI, infected wound, acute renal failure Referrals: [facility] [Other] - 1 Week Get Martin MD [Primary Care Provider] - 1 Week Discharge Medications: Continued metformin 500 mg Tablet 500 mg PO BID Hold Instructions: Resume on 03/25/21. Re-check renal function prior to restarting Metformin gabapentin 300 mg Capsule 300 mg PO BID@0630,1200 tramadol 50 mg Tablet 50 mg PO Q24H PRN (Reason: Pain, Moderate) baclofen 20 mg Tablet 20 mg PO TID Qty: 0 0RF acetaminophen 325 mg Tablet 650 mg PO Q4H PRN (Reason: Moderate Pain (Scale Score 5-6)) Rx Instructions: pain or fever aspirin 81 mg Tablet,Chewable 81 mg PO DAILY rosuvastatin 10 mg Tablet 10 mg PO DAILY prednisone 2.5 mg Tablet 2.5 mg PO DAILY guaifenesin [Diabetic Tussin EX] 100 mg/5 mL Liquid 200 mg PO Q4H PRN (Reason: Cough) sennosides [senna] 8.6 mg Tablet 17.2 mg PO BEDTIME famotidine 20 mg Tablet 20 mg PO BID gabapentin 800 mg Tablet 800 mg PO BEDTIME amlodipine 10 mg Tablet 10 mg PO DAILY bismuth subsalicylate [Pepto-Bismol] 262 mg/15 mL Suspension 524 mg PO Q8H PRN (Reason: UPSET STOMACH/NAUSEA) losartan 25 mg Tablet 25 mg PO BEDTIME docusate sodium [Colace] 100 mg Capsule 100 mg PO BID folic acid 1 mg Tablet 1 mg PO SUTUWETHFRSA polyethylene glycol 3350 [Miralax] 17 gram/dose Powder 17 g PO DAILY ondansetron 4 mg Tablet,Disintegrating 4 mg PO Q8H PRN (Reason: Nausea) lactulose [Enulose] 10 gram/15 mL Solution 30 ml PO DAILY zolpidem 6.25 mg Tablet,Ext Release Multiphase 6.25 mg PO BEDTIME ceramides 1,3,6-II [CeraVe] Cream 1 appl TOPICAL BID melatonin 5 mg Tablet 5 mg PO BEDTIME PRN (Reason: Insomnia) insulin glargine-yfgn 100 unit/mL Solution 5 unit SUBCUT BEDTIME methotrexate sodium 2.5 mg Tablet 15 mg PO MO No Action bisacodyl 5 mg Tablet 5 mg PO BEDTIME PRN (Reason: Constipation) oseltamivir [Tamiflu] 75 mg capsule 75 mg PO BID 5 Days Qty: 10 0RF Discharge Orders: Discharge Order (Routine); Ordered 03/01/24 Ordered By: Juan Sykes Diet: Advance to usual diet Activity on Discharge: As tolerated Stand Alone Forms: Patient Portal Discharge page Print Language: Italian Care Plan Goals: Recovery from UTI, renal failure and infected wound. Health Concerns: Infected wound, renal failure, obstructive uropathy with renal failure Plan of Treatment: cefepime IV 2 g every 8 hours for 11 more days Continue use of carty catheter Follow up with Dr. Gamez for enlarged prostated Assessment: see above Discharge Date/Time: 03/01/24 17:36
--- NOTE | 2024-03-01 12:52 | MHC.CM.PN ---
pt going to [facility] today at 3 via transport dgter notified
--- NOTE | 2024-03-01 13:42 | MHC.SL.SWA ---
Speech Pathologist Impression: Oral phase dysphagia Risk of Aspiration Due to: Neurological Condition Dysphasia Diet Status: Recommend continue with CHOPPED/ADVANCED (NDD3) solids and THIN liquids with pills WHOLE in PUREE or LIQUID per patient's tolerance. Cereal w/ milk OK. 1-1 supervision w/ assistance as needed recommended. Liquid Consistency and Strategies for Safe Swallow: Liquid Intake Recommendation: Thin Liquid Intake Strategies: Small Sips No Straws Solid Food Consistency: Dietary Recommendations: Chopped/Advanced (NDD3) Additional Modifications to Solid Foods: Patient has been tolerating chopped/advanced diet (NDD3) without reported difficulties. Recommend continue w/ strategies to promote oral clearance (small bites, moisten food with sauces/gravies, alternate bites of food with sips of liquid). Further ST intervention is no longer warranted at this level of care. Please re-refer with any changes or if GAS OPERATOR can be of further assistance. Oral Medication Intake: Whole with Puree Please contact the pharmacy regarding appropriate crushable or liquid drug formulations that are available whenever modified delivery is recommended. Compensatory Strategies and Precautions to be Taken for Safe Swallow: Sitting Upright (90 deg) No Straw Supervision While Eating and Drinking for Safe Swallow: Total Supervision (1:1) Foods to Avoid: Tough, difficult to chew solids, too large pieces of food. Swallowing Recommended Treatments: Compens. Strategy Educat. Recommendation for Speech: D/C Whipped Topping Mixer Clinican/Clinical Fellow: No Supervisory Statement: I have reviewed and agree with the student/clinical fellow's documentation: N/A Speech Language Pathologist: Heather Larsen M.A., CCC-GAS OPERATOR
[2024-03-01 15:29] VITALS: BP 148/70; PULSE 96; RESP 18; TEMP 37.1; O2SAT 96
[2024-03-01 16:14] LABS: Glucose, Whole Blood 163 mg/dL (60-115)
== END 2024-03-01 17:36 | disposition skilled nursing facility (03) | DRG 698 ==
LOC: HO.ED 21:48 → HO.EDOVER 22:10 → HO.IMC 02-27 00:31 → HO.S3 02-28 16:20
PROVIDERS: Student in an Organized Health Care Education/Training Program; Admitting Provider Physician Assistant; Emergency Provider Emergency Medicine; PCP Family Medicine Geriatric Medicine; Visit Provider Internal Medicine
DX: T83.511A Infection and inflammatory reaction due to indwelling urethral catheter, initial encounter (principal); G93.41 Metabolic encephalopathy; N17.9 Acute kidney failure, unspecified; L12.0 Bullous pemphigoid; E87.20 Acidosis, unspecified; J98.11 Atelectasis; N13.6 Pyonephrosis; N13.8 Other obstructive and reflux uropathy; G35 Multiple sclerosis; D64.9 Anemia, unspecified; I10 Essential (primary) hypertension; R31.0 Gross hematuria; E86.0 Dehydration; F32.A Depression, unspecified; N40.1 Benign prostatic hyperplasia with lower urinary tract symptoms; B96.5 Pseudomonas (aeruginosa) (mallei) (pseudomallei) as the cause of diseases classified elsewhere; E11.9 Type 2 diabetes mellitus without complications; N31.8 Other neuromuscular dysfunction of bladder; L89.152 Pressure ulcer of sacral region, stage 2; Z20.822 Contact with and (suspected) exposure to COVID-19; Z74.01 Bed confinement status; Z87.891 Personal history of nicotine dependence; Z87.440 Personal history of urinary (tract) infections; Z79.4 Long term (current) use of insulin; Z79.52 Long term (current) use of systemic steroids; Z79.82 Long term (current) use of aspirin; Z79.84 Long term (current) use of oral hypoglycemic drugs; Z79.899 Other long term (current) drug therapy
CPT/HCPCS: 0241U; 36415; 70450; 71045; 71250; 74176; 80048; 80053; 80202; 81001; 82140; 82565; 82570; 82803; 82947; 83036; 83605; 83735; 83880; 84300; 84484; 85025; 85027; 85610; 86140; 87040; 87070; 87077; 87086; 87186; 87205; 92526; 92610; 92950; 93005; 99285; C1758; J0295; J0692; J1200; J1650; J3370; J3371; J7120

== ENCOUNTER → 2024-02-25 19:22 | Outpatient (BNV) | payer OTHER, SELFPAY | PROVIDERS: Admitting Provider Physician Assistant; Emergency Provider Emergency Medicine; PCP Family Medicine Geriatric Medicine; Visit Provider Internal Medicine Cardiovascular Disease | DX: R41.82 Altered mental status, unspecified (principal) | CPT/HCPCS: 93010 ==

== ENCOUNTER → 2024-02-25 21:52 | Outpatient (BNV) | payer OTHER, SELFPAY | PROVIDERS: Admitting Provider Physician Assistant; Emergency Provider Emergency Medicine; PCP Family Medicine Geriatric Medicine; Visit Provider Internal Medicine | DX: N13.9 Obstructive and reflux uropathy, unspecified (principal); Z97.8 Presence of other specified devices; T17.908A Unspecified foreign body in respiratory tract, part unspecified causing other injury, initial encounter; G93.41 Metabolic encephalopathy | CPT/HCPCS: 99222 ==

== ENCOUNTER → 2024-02-25 21:52 | Outpatient (BNV) | payer OTHER, SELFPAY | PROVIDERS: Admitting Provider Physician Assistant; Emergency Provider Emergency Medicine; PCP Family Medicine Geriatric Medicine; Visit Provider Internal Medicine Nephrology | DX: N17.9 Acute kidney failure, unspecified (principal) | CPT/HCPCS: 99223; 99232 ==

== ENCOUNTER → 2024-02-25 21:52 | Outpatient (BNV) | payer MEDICARE, OTHER, SELFPAY | PROVIDERS: Admitting Provider Physician Assistant; Emergency Provider Emergency Medicine; PCP Family Medicine Geriatric Medicine; Visit Provider Physician Assistant | DX: L89.152 Pressure ulcer of sacral region, stage 2 (principal); T17.908A Unspecified foreign body in respiratory tract, part unspecified causing other injury, initial encounter; N39.0 Urinary tract infection, site not specified; G93.41 Metabolic encephalopathy | CPT/HCPCS: 99223; 99232; 99233; 99239 ==

== ENCOUNTER → 2024-02-25 21:52 | Outpatient (BNV) | payer OTHER, SELFPAY | PROVIDERS: Admitting Provider Physician Assistant; Emergency Provider Emergency Medicine; PCP Family Medicine Geriatric Medicine; Visit Provider Urology | DX: N31.9 Neuromuscular dysfunction of bladder, unspecified (principal); Z97.8 Presence of other specified devices; R31.0 Gross hematuria; N30.90 Cystitis, unspecified without hematuria; N13.9 Obstructive and reflux uropathy, unspecified | CPT/HCPCS: 52000; 99222 ==

== ENCOUNTER 2024-03-31 09:34 | Emergency (ER) | payer OTHER, SELFPAY ==
[2024-03-31 09:39] VITALS: BP 118/64; PULSE 76; O2SAT 96
[2024-03-31 09:50] VITALS: BP 110/60; PULSE 78; RESP 13; TEMP 36.3; O2SAT 93; BMI 23.0
--- NOTE | 2024-03-31 09:54 | ECG_ITS ---
Test Reason : AMS Blood Pressure : / mmHG Vent. Rate : 075 BPM Atrial Rate : 075 BPM P-R Int : 166 ms QRS Dur : 114 ms QT Int : 406 ms P-R-T Axes : 050 033 017 degrees QTc Int : 453 ms Normal sinus rhythm Normal ECG When compared with ECG of 25-FEB-2024 19:22, No significant change was found Referred By: Fili Aviles Electronically Signed By:JOSEP SHARIF
--- NOTE | 2024-03-31 10:09 | ED_ITS ---
HPI - Altered Mental Status General Chief Complaint: Altered Mental Status Stated Complaint: AMS XDAYS FROM SNF PER EMS Time Seen by Provider: 03/31/24 09:45 Source: EMS Mode of arrival: EMS Limitations: altered mental status History of Present Illness HPI narrative: Patient sent in for lethargy, assisted states that this happens when he has an infection. He has an indwelling carloz CHARLES complaint: altered mental status Onset (ago): day(s) Timing confirmed by: other (SNF) Severity: moderate Related Data Home Medications ?Medication ?Instructions ?Recorded ?Confirmed gabapentin 300 mg capsule 300 mg PO BID@0630,1200 10/09/20 03/31/24 metformin 500 mg tablet 500 mg PO BID 10/09/20 03/31/24 tramadol 50 mg tablet 50 mg PO Q24H PRN Pain, Moderate 10/09/20 03/31/24 acetaminophen 325 mg tablet 650 mg PO Q4H PRN Moderate Pain 03/13/21 03/31/24 (Scale Score 5-6) aspirin 81 mg chewable tablet 81 mg PO DAILY 03/13/21 03/31/24 rosuvastatin 10 mg tablet 10 mg PO DAILY 03/13/21 03/31/24 guaifenesin 100 mg/5 mL oral 200 mg PO Q4H PRN Cough 05/19/21 03/31/24 liquid (Diabetic Tussin EX) prednisone 2.5 mg tablet 2.5 mg PO DAILY 05/19/21 03/31/24 amlodipine 10 mg tablet 10 mg PO DAILY 11/16/23 03/31/24 bismuth subsalicylate 262 mg/15 mL 524 mg PO Q8H PRN UPSET 11/16/23 03/31/24 oral suspension (Pepto-Bismol) STOMACH/NAUSEA ceramides 1,3,6-II (CeraVe topical 1 appl topical BID Dry Skin 11/16/23 03/31/24 cream) docusate sodium 100 mg capsule 100 mg PO BID 11/16/23 03/31/24 (Colace) famotidine 20 mg tablet 20 mg PO BID 11/16/23 03/31/24 folic acid 1 mg tablet 1 mg PO SUTUWETHFRSA 11/16/23 03/31/24 gabapentin 800 mg tablet 800 mg PO BEDTIME 11/16/23 03/31/24 insulin glargine-yfgn 100 unit/mL 5 unit subcut BEDTIME 11/16/23 03/31/24 subcutaneous solution lactulose 10 gram/15 mL oral 30 ml PO DAILY 11/16/23 03/31/24 solution (Enulose) losartan 25 mg tablet 25 mg PO BEDTIME 11/16/23 03/31/24 melatonin 5 mg tablet 5 mg PO BEDTIME PRN Insomnia 11/16/23 03/31/24 ondansetron 4 mg disintegrating 4 mg PO Q8H PRN Nausea 11/16/23 03/31/24 tablet polyethylene glycol 3350 17 17 g PO DAILY 11/16/23 03/31/24 gram/dose oral powder (Miralax) sennosides 8.6 mg tablet (senna) 17.2 mg PO BEDTIME 11/16/23 03/31/24 zolpidem 6.25 mg tablet,extended 6.25 mg PO BEDTIME 11/16/23 03/31/24 release,multiphase methotrexate sodium 2.5 mg tablet 15 mg PO MO 02/25/24 03/31/24 bisacodyl 5 mg tablet 5 mg PO BEDTIME PRN Constipation 03/31/24 03/31/24 Previous Rx's ?Medication ?Instructions ?Recorded baclofen 20 mg tablet 20 mg PO TID #0 tabs 10/12/20 Allergies Allergy/AdvReac Type Severity Reaction Status Date / Time Benzodiazepines Allergy Unknown UNKNOWN Verified 03/31/24 09:57 [BENZODIAZEPINES] dalfampridine [From AMPYRA] Allergy Unknown UNKNOWN Verified 03/31/24 09:57 duloxetine [From CYMBALTA] Allergy Unknown UNKNOWN Verified 03/31/24 09:57 ezetimibe [From ZETIA] Allergy Unknown UNKNOWN Verified 03/31/24 09:57 niacin [NIACIN] Allergy Unknown UNKNOWN Verified 03/31/24 09:57 pravastatin [PRAVASTATIN] Allergy Unknown UNKNOWN Verified 03/31/24 09:57 Zjmbbfq-CAI-EoM Reductase Allergy Unknown UNKNOWN Verified 03/31/24 09:57 Inhibitor [BQXIBWY-EQF-DIL REDUCTASE INHIBITOR] lorazepam [From ATIVAN] AdvReac Severe EXCESSIVE Verified 03/31/24 09:57 SEDATION doxycycline [DOXYCYCLINE] AdvReac Mild esophogeal Verified 03/31/24 09:57 iritation methylprednisolone AdvReac Mild heartburn Verified 03/31/24 09:57 [From SOLU-MEDROL] ertapenem [From INVANZ] AdvReac Unknown possible Verified 04/11/21 09:47 cause of bullous pemphigoid Review of Systems 2 Review of Systems: Yes Unobtainable due to mental status Neurologic: Denies Sensory deficit (Neuro) [facility] Past Medical History Medical History EDWARD (acute kidney injury) UTI (urinary tract infection) due to urinary indwelling Carty catheter Bullous pemphigoid Steroid dependence Decubitus ulcer of coccygeal region, stage 2 Acute hypotension Sepsis Aspiration pneumonitis Recurrent UTI (urinary tract infection) Hypotonic neurogenic bladder Lytic lesion of bone on x-ray Wound of foot Anemia Septic shock Shoulder pain Constipation Hematuria Multiple sclerosis Depression Diabetes mellitus type 2 in obese Chronic pain syndrome BPH (benign prostatic hyperplasia) Dehydration Chronic renal failure Urinary tract infection Surgical History Hx of removal of cyst Family History Family History Family/Other Heart attack Father Diabetes Social History Social History Household Members: Other Household Members Other:: lives at [facility] Housing: Assisted Living Facility Housing Other:: [facility] Do you presently have visiting nurse or other home services: Yes Unable to assess alcohol history related to: Unable to respond Alcohol intake: never Comment: pt sedated on vent. Patient Tobacco Use Status: Former Tobacco user Cigarette Packs Per Day: 1 Advance Directives: Yes Advance Directives Information Provided: No Advance Directives on File: No Advance Directives Date on File: 10/13/20 service: Yes Current occupational status: retired Physical Exam ED Vital Signs: Vital Signs - 24 hr 03/31/24 09:50 03/31/24 11:18 Temperature 97.3 F Pulse Rate 78 85 Respiratory Rate 13 12 Blood Pressure 110/60 133/61 Pulse Oximetry 93 93 Oxygen Delivery Method Room Air Room Air BMI result Body Mass Index 23.0 Const Other: cachetic chronically ill male able to respond with one word sentences Orientation/consciousness: oriented to person Limitations: altered mental status [facility] Head: Yes normal to inspection Ears: external ears normal General nose exam: Normal external nose present Mouth: Normal oral and palatal mucosa present and oropharynx normal Throat: Yes posterior oropharynx normal Eyes General: appearance normal, both eyes and all related structures Neck Neck: Yes normal visual inspection Chest Chest palpation & inspection: normal inspection of the chest Resp Auscultation: clear to auscultation bilaterally Cardio Jugular venous distension: no JVD Rate: regular rate Rhythm: regular rhythm Heart sounds: S1 normal heart sound present and S2 normal heart sound present GI Inspection: Yes normal to inspection Palpation (GI): Soft to palpation, nontender and No hepatosplenomegaly present Auscultation: normal bowel sounds General: Yes no CVA tenderness Back/Spine/Pelvis Back: no CVA tenderness Skin Other: stage I decubedi to sacrum, and upper back, chronic dermatitis to feet Neuro Other: moves legs slightly but week General: oriented to person Sensory Exam: No Sensory deficit (Neuro) Extrem General: Yes normal to inspection Psych Appearance: grossly normal Course Reevaluation(s) Reevaluation #1: will admit patient for dehydration and weakness and flu A postive Time: 11:52 Medications Administered Generic Name Dose Route Start Last Admin Trade Name Freq PRN Reason Stop Dose Admin Sodium Chloride 1,000 mls @ 500 mls/hr 03/31/24 10:15 03/31/24 10:22 Ns IVCONT 03/31/24 12:14 500 mls/hr .Q2H WICHO Administration Medical Decision Making Differential Diagnosis Differential Diagnoses: The differential diagnosis associated with the presentation includes (dehydration, flu, covid, pneumonia, rsv, UTI were all considered) Admission/Observation Consideration of admission/observation: Escalation of care including admission/observation considered (upon arrival patient considered for admission) Consult Healthcare Provider Management of the patient was discussed with: Hospitalist Lab Data 03/31/24 10:10 03/31/24 10:10 Labs: Lab Results 03/31/24 03/31/24 Range/Units 10:10 11:19 WBC 7.2 (4.8-10.8) X10*3/uL RBC 3.32 L (4.60-5.80) X10*6/uL Hgb 10.2 L (14.0-18.0) g/dl Hct 30.3 L (42.0-52.0) % MCV 91.3 (80.0-98.0) fL MCH 30.7 (27.0-33.0) pg MCHC 33.7 (31.0-36.0) g/dl RDW 18.1 H (11.0-16.0) % Plt Count 185 D (160-400) X10*3/uL MPV 9.6 (9.4-12.4) fL Immature Gran % (Auto) 0.7 H (0.0-0.4) % Neut % (Auto) 72.5 (45-73) % Lymph % (Auto) 19.1 L (20-40) % [place] % (Auto) 6.5 (2-11) % Eos % (Auto) 1.1 (0-4) % Baso % (Auto) 0.1 (0-2) % Lymph # (Auto) 1.4 (1.2-4.9) X10*3/uL [place] # (Auto) 0.5 (0.1-1.2) X10*3/uL Eos # (Auto) 0.1 (0.0-0.4) X10*3/uL Baso # (Auto) 0.0 (0.0-0.2) X10*3/uL Abs Immat Gran (auto) 0.05 H (0.00-0.03) X10*3/uL Absolute Neuts (auto) 5.2 (2.0-8.3) x10*3/uL Absolute Nucleated RBC 0.000 (0.0-0.012) X10*3/uL Nucleated RBC % (auto) 0.0 (0.0-0.2) /100WBC Sodium 134 L (135-145) mmol/L Potassium 3.8 (3.3-5.1) mmol/L Chloride 100 (96-108) mmol/L Carbon Dioxide 24 (22-29) mmol/L Anion Gap 14 (12-20) BUN 41 H (9-16) mg/dL Creatinine 1.15 (0.5-1.4) mg/dL Estim Creat Clear Calc 58.5 Estimated GFR > 60 Random Glucose 95 (60-115) mg/dL Calcium 8.8 (8.4-10.2) mg/dL Urine Color Yellow Urine Appearance Turbid Urine pH 5.5 (5.0-9.0) Ur Specific [place] 1.015 (1.005-1.025) Urine Protein 100 (2+) H (Neg-Trace) mg/dL Urine Glucose (UA) Negative (Negative) mg/dL Urine Ketones Negative (Negative) mg/dL Urine Blood Large (3+) H (Negative) Urine Nitrite Negative (Negative) Ur Leukocyte Esterase Large (3+) H (Negative) Urine RBC 6-10 H (0-2) /HPF Urine WBC 11-20 (0-5) /HPF Ur Squamous Epith Cells 0-2 (0-2) /HPF Urine Bacteria 3+ (None Seen) Hyaline Casts 0-2 (0-2) /LPF Influenza Type A (PCR) POSITIVE A (Negative) Influenza Type B (PCR) NEGATIVE (Negative) RSV RNA Qual (PCR) NEGATIVE (Negative) SARS-CoV-2 RNA (RT-PCR) NEGATIVE (Negative) Independent Interpretation I performed an independent interpretation of an: EKG (sinus 75, no st or twave changs) and Plain X-Ray (no infiltrate) Independent Historian Clinical information obtained from an independent historian. History obtained from or confirmed by: EMS Prescription Management I considered prescription management with: Antibiotic (Urine is likely colonized due to carty will not treat at this time) Chronic Conditions Patient?s care impacted by: Hypertension and Other (MS) Discharge Plan Discharge Clinical Impression: Altered mental status, Acute dehydration, Influenza A Patient Disposition: Admitted As Inpatient Print Language: Moroccan
[2024-03-31 10:13] LABS: MANUAL DIFF FLAG NO
[2024-03-31 10:17] LABS: Basophils Percent Auto 0.1 % (0-2); Eosinophils Absolute Auto 0.1 X10*3/uL (0.0-0.4); Eosinophils Percent Auto 1.1 % (0-4); Hematocrit 30.3 % (42.0-52.0); Hemoglobin 10.2 g/dl (14.0-18.0); Imm Gran Abs Auto 0.05 X10*3/uL (0.00-0.03); Imm Gran Pct Auto 0.7 % (0.0-0.4); Lymphocytes Absolute Auto 1.4 X10*3/uL (1.2-4.9); Lymphocytes Percent Auto 19.1 % (20-40); Mean Corpuscular HGB Conc 33.7 g/dl (31.0-36.0); Mean Corpuscular Hemoglobin 30.7 pg (27.0-33.0); Mean Corpuscular Volume 91.3 fL (80.0-98.0); Mean Platelet Volume 9.6 fL (9.4-12.4); Monocytes Absolute Auto 0.5 X10*3/uL (0.1-1.2); Monocytes Percent Auto 6.5 % (2-11); Neutrophils Absolute Auto 5.2 x10*3/uL (2.0-8.3); Neutrophils Percent Auto 72.5 % (45-73); Platelet Count 185 X10*3/uL (160-400); Red Blood Count 3.32 X10*6/uL (4.60-5.80); Red Cell Distribution Width 18.1 % (11.0-16.0); White Blood Count 7.2 X10*3/uL (4.8-10.8)
[2024-03-31] MEDS: 0.9 % Sodium Chloride 1,000 ML 500 ML IVCONT (10:22)
[2024-03-31 10:27] LABS: Anion Gap 14 (12-20); Blood Urea Nitrogen 41 mg/dL (9-16); Calcium 8.8 mg/dL (8.4-10.2); Carbon Dioxide 24 mmol/L (22-29); Chloride 100 mmol/L (96-108); Creatinine Clr Calc Pharmacy 58.5; Estimated Glomerular Filt Rate > 60; Potassium 3.8 mmol/L (3.3-5.1); Sodium 134 mmol/L (135-145)
[2024-03-31 11:05] LABS: Influenza A PCR POSITIVE (Negative); Influenza B PCR NEGATIVE (Negative); Resp Syncy Virus RNA Qual PCR NEGATIVE (Negative); SARS COV2 PCR INHOUSE NEGATIVE (Negative)
[2024-03-31 11:18] VITALS: BP 133/61; PULSE 85; RESP 12; O2SAT 93
--- NOTE | 2024-03-31 11:56 | PHA.MEDREC ---
Pharmacy Consult ? Medication Reconciliation Pharmacy has completed the medication reconciliation. List from [facility] Schuster on [place]
--- NOTE | 2024-03-31 11:56 | PC.NURSE ---
Chronic carty changed, urine sample obtained from [facility] carty. Pt has multiple chronic wounds present on admission to ED - open macerated areas to coccyx as well as nonblanchable redness to coccyx (Stage I). Bilateral feet/toes have redness and multiple small wounds. Redness to back.
--- NOTE | 2024-03-31 12:15 | PC.NURSE ---
Spoke to Ramandeep VALENZUELA at SNF, made aware pt is FLU A + and being admitted.
--- NOTE | 2024-03-31 12:37 | PM.IMHP ---
History of Present Illness Date of Service: 03/31/24 Attending physician on admission: Devi Dickerson Chief Complaint: AMS, lethargy Pt is a 79-year-old male with a PMH significant for MS with chronic bilateral lower extremity weakness chronically bed-bound, bullous pemphigoid on chronic steroids,?insulin-dependent type 2 diabetes, Crohn's disease, BPH, and chronic UTIs with indwelling Nunez catheter [facility] ED pt with stable vital signs WNL. Labs were significant for testing positive for influenza type a and mildly elevated creatinine of 1.15, otherwise grossly unremarkable and around baseline for patient. No leukocytosis. Stable normocytic anemia of 10.2/30.3. UA positive for protein, 3+ blood, 3+ leukocyte esterase, 6-10 RBC, 11-20 wbc's, and 3+ bacteria. CXR showed no acute cardiopulmonary disease. EKG demonstrated normal sinus rhythm without evidence of significant ST elevations or depressions. Pt was treated with IVF. Pt will be admitted to the hospital [facility] Medical History EDWARD (acute kidney injury) UTI (urinary tract infection) due to urinary indwelling Nunez catheter Bullous pemphigoid Steroid dependence Decubitus ulcer of coccygeal region, stage 2 Acute hypotension Sepsis Aspiration pneumonitis Recurrent UTI (urinary tract infection) Hypotonic neurogenic bladder Lytic lesion of bone on x-ray Wound of foot Anemia Septic shock Shoulder pain Constipation Hematuria Multiple sclerosis Depression Diabetes mellitus type 2 in obese Chronic pain syndrome BPH (benign prostatic hyperplasia) Dehydration Chronic renal failure Urinary tract infection Family History Family/Other Heart attack Father Diabetes Surgical History Hx of removal of cyst Social History Household Members: Other Household Members Other:: lives at [facility] on [address] in [place] Housing: Assisted Living Facility Housing Other:: [facility] Do you presently have visiting nurse or other home services: Yes Unable to assess alcohol history related to: Unable to respond Alcohol intake: never Comment: pt sedated on vent. Patient Tobacco Use Status: Former Tobacco user Cigarette Packs Per Day: 1 Advance Directives: Yes Advance Directives Information Provided: No Advance Directives on File: No Advance Directives Date on File: 10/13/20 service: Yes Current occupational status: retired [employer] Allergies Allergy/AdvReac Type Severity Reaction Status Date / Time Benzodiazepines Allergy Unknown UNKNOWN Verified 03/31/24 09:57 [BENZODIAZEPINES] dalfampridine [From AMPYRA] Allergy Unknown UNKNOWN Verified 03/31/24 09:57 duloxetine [From CYMBALTA] Allergy Unknown UNKNOWN Verified 03/31/24 09:57 ezetimibe [From ZETIA] Allergy Unknown UNKNOWN Verified 03/31/24 09:57 niacin [NIACIN] Allergy Unknown UNKNOWN Verified 03/31/24 09:57 pravastatin [PRAVASTATIN] Allergy Unknown UNKNOWN Verified 03/31/24 09:57 Vujurso-YAY-VtK Reductase Allergy Unknown UNKNOWN Verified 03/31/24 09:57 Inhibitor [IYHISIH-ZJW-LZJ REDUCTASE INHIBITOR] lorazepam [From ATIVAN] AdvReac Severe EXCESSIVE Verified 03/31/24 09:57 SEDATION doxycycline [DOXYCYCLINE] AdvReac Mild esophogeal Verified 03/31/24 09:57 iritation methylprednisolone AdvReac Mild heartburn Verified 03/31/24 09:57 [From SOLU-MEDROL] ertapenem [From INVANZ] AdvReac Unknown possible Verified 04/11/21 09:47 cause of bullous pemphigoid Home Medications ?Medication ?Instructions ?Recorded ?Confirmed ?Last Taken ?Type gabapentin 300 mg capsule 300 mg PO BID@0630,1200 10/09/20 03/31/24 Unknown History metformin 500 mg tablet 500 mg PO BID 10/09/20 03/31/24 Unknown History tramadol 50 mg tablet 50 mg PO Q24H PRN Pain, Moderate 10/09/20 03/31/24 Unknown History acetaminophen 325 mg tablet 650 mg PO Q4H PRN Moderate Pain 03/13/21 03/31/24 Unknown History (Scale Score 5-6) aspirin 81 mg chewable tablet 81 mg PO DAILY 03/13/21 03/31/24 Unknown History rosuvastatin 10 mg tablet 10 mg PO DAILY 03/13/21 03/31/24 Unknown History guaifenesin 100 mg/5 mL oral 200 mg PO Q4H PRN Cough 05/19/21 03/31/24 Unknown History liquid (Diabetic Tussin EX) prednisone 2.5 mg tablet 2.5 mg PO DAILY 05/19/21 03/31/24 Unknown History amlodipine 10 mg tablet 10 mg PO DAILY 11/16/23 03/31/24 Unknown History bismuth subsalicylate 262 mg/15 mL 524 mg PO Q8H PRN UPSET 11/16/23 03/31/24 Unknown History oral suspension (Pepto-Bismol) STOMACH/NAUSEA ceramides 1,3,6-II (CeraVe topical 1 appl topical BID Dry Skin 11/16/23 03/31/24 Unknown History cream) docusate sodium 100 mg capsule 100 mg PO BID 11/16/23 03/31/24 Unknown History (Colace) famotidine 20 mg tablet 20 mg PO BID 11/16/23 03/31/24 Unknown History folic acid 1 mg tablet 1 mg PO SUTUWETHFRSA 11/16/23 03/31/24 Unknown History gabapentin 800 mg tablet 800 mg PO BEDTIME 11/16/23 03/31/24 Unknown History insulin glargine-yfgn 100 unit/mL 5 unit subcut BEDTIME 11/16/23 03/31/24 Unknown History subcutaneous solution lactulose 10 gram/15 mL oral 30 ml PO DAILY 11/16/23 03/31/24 Unknown History solution (Enulose) losartan 25 mg tablet 25 mg PO BEDTIME 11/16/23 03/31/24 Unknown History melatonin 5 mg tablet 5 mg PO BEDTIME PRN Insomnia 11/16/23 03/31/24 Unknown History ondansetron 4 mg disintegrating 4 mg PO Q8H PRN Nausea 11/16/23 03/31/24 Unknown History tablet polyethylene glycol 3350 17 17 g PO DAILY 11/16/23 03/31/24 Unknown History gram/dose oral powder (Miralax) sennosides 8.6 mg tablet (senna) 17.2 mg PO BEDTIME 11/16/23 03/31/24 Unknown History zolpidem 6.25 mg tablet,extended 6.25 mg PO BEDTIME 11/16/23 03/31/24 Unknown History release,multiphase methotrexate sodium 2.5 mg tablet 15 mg PO MO 02/25/24 03/31/24 Unknown History bisacodyl 5 mg tablet 5 mg PO BEDTIME PRN Constipation 03/31/24 03/31/24 Unknown History Physical Exam Vital Signs and Narrative: Vital Signs: Last Vital Signs Temp 97.3 F 03/31/24 09:50 Pulse 85 03/31/24 11:18 Resp 12 03/31/24 11:18 BP 133/61 03/31/24 11:18 Pulse Ox 93 03/31/24 11:18 O2 Del Method Room Air 03/31/24 11:18 BMI result Body Mass Index 23.0 Results Labs 03/31/24 10:10 03/31/24 10:10 Labs: Laboratory Results - last 24 hr 03/31/24 03/31/24 10:10 11:19 MCV 91.3 MCH 30.7 MCHC 33.7 RDW 18.1 H Plt Count 185 D MPV 9.6 Immature Gran % (Auto) 0.7 H Neut % (Auto) 72.5 Lymph % (Auto) 19.1 L [place] % (Auto) 6.5 Eos % (Auto) 1.1 Baso % (Auto) 0.1 Lymph # (Auto) 1.4 [place] # (Auto) 0.5 Eos # (Auto) 0.1 Baso # (Auto) 0.0 Abs Immat Gran (auto) 0.05 H Absolute Neuts (auto) 5.2 Absolute Nucleated RBC 0.000 Nucleated RBC % (auto) 0.0 Anion Gap 14 Estim Creat Clear Calc 58.5 Estimated GFR > 60 Random Glucose 95 Calcium 8.8 Urine Color Yellow Urine Appearance Turbid Urine pH 5.5 Ur Specific [place] 1.015 Urine Protein 100 (2+) H Urine Glucose (UA) Negative Urine Ketones Negative Urine Blood Large (3+) H Urine Nitrite Negative Ur Leukocyte Esterase Large (3+) H Urine RBC 6-10 H Urine WBC 11-20 Ur Squamous Epith Cells 0-2 Urine Bacteria 3+ Hyaline Casts 0-2 Influenza Type A (PCR) POSITIVE A Influenza Type B (PCR) NEGATIVE RSV RNA Qual (PCR) NEGATIVE SARS-CoV-2 RNA (RT-PCR) NEGATIVE Imaging Radiologist's Impressions: Impressions Chest X-Ray 03/31/24 10:31 IMPRESSION: Unremarkable examination.
[2024-03-31] MEDS: 0.9 % Sodium Chloride 1,000 ML 999 ML IV (13:46)
[2024-03-31 13:47] VITALS: BP 129/64; PULSE 81; RESP 14; O2SAT 96
[2024-03-31] MEDS: Oseltamivir Phosphate 75 MG CAPSULE PO (15:11)
[2024-03-31 17:41] VITALS: BP 136/71; PULSE 88; RESP 17; TEMP 36.6; O2SAT 95
[2024-03-31 18:47] VITALS: BP 125/86; PULSE 85; RESP 18; TEMP 37.2; O2SAT 98
== END 2024-03-31 18:53 ==
PROVIDERS: Emergency Provider Emergency Medicine; PCP Physician Assistant
DX: J10.1 Influenza due to other identified influenza virus with other respiratory manifestations (principal); E86.0 Dehydration; R53.1 Weakness; R41.82 Altered mental status, unspecified; E11.9 Type 2 diabetes mellitus without complications; G35 Multiple sclerosis; Z79.899 Other long term (current) drug therapy; Z79.82 Long term (current) use of aspirin; Z79.02 Long term (current) use of antithrombotics/antiplatelets; Z79.84 Long term (current) use of oral hypoglycemic drugs; Z87.891 Personal history of nicotine dependence; Z11.52 Encounter for screening for COVID-19
CPT/HCPCS: 0241U; 71045; 80048; 81001; 85025; 87086; 87088; 87186; 93005; 96360; 96361; 99284; 99285

== ENCOUNTER → 2024-03-31 09:54 | Outpatient (BNV) | payer OTHER, SELFPAY | PROVIDERS: Emergency Provider Emergency Medicine; PCP Physician Assistant; Visit Provider Internal Medicine | DX: R41.82 Altered mental status, unspecified (principal) | CPT/HCPCS: 93010 ==

== ENCOUNTER 2024-04-22 22:06 | Inpatient (IN) | payer OTHER, SELFPAY ==
--- NOTE | ~2024-04-22 | CT_ITS ---
EXAMINATION: CT ANGIOGRAM HEAD CT ANGIOGRAM NECK CLINICAL INFORMATION: Reason for Exam L facial drooping COMPARISON: Same-day CT head and CTA 11/16/2023 TECHNIQUE: Test bolus sequences followed by intravenous administration 75 mL of Omnipaque 350. Helical imaging was performed in the axial plane from the aortic arch to the skull vertex. Delayed postcontrast imaging of the head was also performed. The data was processed at the mechanical engineering technologist's workstation for generation of MIP sequences. Angled MIPs and volume rendered reformatted images were also generated at an offline 3D workstation. Stenoses are assessed in accordance with Vargas et al. Quantification of Carotid Stenosis on CT Angiography. AJR 2006. 27(1):13-19. [address] CT examination was performed using dose optimization techniques as appropriate, variously including the following: *Automated exposure control *Adjustment of mA and/or kV according to patient size (this includes techniques or standardized protocols for targeted exams where dose is matched to indication/reason for exam; i.e. extremities or head) *Use of iterative reconstruction technique DLP: 1463.23 mGy-cm FINDINGS: CT HEAD: Intracranial findings discussed separately. No pathologic intra-axial enhancement or regional oligemia. New subtotally opacified right sphenoid sinus with air-fluid level and hyperdense contents, which may reflect proteinaceous contents, chronic fungal elements, or hemosinus and can be correlated clinically. Retention cysts in the bilateral maxillary sinuses. New left mastoid effusion. Severe left TMJ osteoarthrosis. CTA HEAD: Limited assessment of the distal intracranial arterial vasculature related to extensive venous contamination. No proximal hemodynamically significant stenosis or occlusion in the anterior or posterior circulation. Trace calcific plaque along the bilateral carotid bifurcations without associated stenosis. No aneurysms and no high flow vascular malformations. Timing of the contrast bolus allows assessment of the major dural venous sinuses, which all opacify normally CTA NECK: Two vessel branching pattern of the arch with left common carotid artery arising from the brachiocephalic trunk. Mild atherosclerotic disease along the aortic arch. Origins of the great vessels are widely patent. The common carotid arteries are widely patent. Trace atherosclerotic disease at the carotid bifurcations without associated stenosis. The internal carotid arteries are widely patent. Minimal undulating luminal contour irregularity of the proximal left cervical ICA may reflect atherosclerosis versus mild fibromuscular dysplasia. The vertebral arteries are codominant The vertebral artery ostia are widely patent. Both vertebral arteries are widely patent throughout their extracranial cervical course. CT NECK: New aspirated secretions along the right posterolateral tracheal wall. Diffuse osseous demineralization. Multilevel cervical spondylosis, notably contributing to apparent moderate to severe spinal canal stenosis at C4-C5 with mass effect along the cord. Uncovertebral and facet joint hypertrophy contributes to multilevel severe neural foraminal narrowing. Stable 9 mm right thyroid nodule below size criteria for imaging follow-up. Centrilobular emphysema. CT/CT angio head neck stroke IMPRESSION: 1. No acute intracranial findings. 2. No acute arterial occlusion or hemodynamically significant stenosis within the head or neck. 3. New subtotally opacified right sphenoid sinus with air-fluid level and hyperdense contents, which may reflect proteinaceous contents, chronic fungal elements, or hemosinus and can be correlated clinically 4. New left mastoid effusion. 5. New aspirated secretions along the right posterolateral tracheal wall. This critical result was discussed with Dr Finch at 10:57 PM on 04/22/2024 and it was ascertained that the content and urgency of the report was understood at the time of direct communication.
--- NOTE | ~2024-04-22 | XR_ITS ---
EXAMINATION: XR CHEST CLINICAL INFORMATION: Stroke COMPARISON: Chest radiograph from 03/31/2024 TECHNIQUE: Frontal view of the chest was obtained. FINDINGS: Chronic left basilar radiopacity. Bilateral low lung volumes. No pneumothorax. Trachea is midline. Cardiac mediastinal silhouette is stable. No large pleural effusion. Osseous structures are intact. Soft tissues are unremarkable. XR/XR chest 1V IMPRESSION: 1. Chronic left basilar radiopacity. 2. Bilateral low lung volumes.
--- NOTE | ~2024-04-22 | CT_ITS ---
EXAMINATION: CT HEAD WITHOUT CONTRAST (STROKE PROTOCOL) CLINICAL INFORMATION: Stroke protocol. Left-sided weakness. COMPARISON: CT head dated 04/26/2024. TECHNIQUE: Contiguous axial imaging was performed from the skull base to vertex without intravenous administration of contrast. This CT examination was performed using dose optimization techniques as appropriate, variously including the following: *Automated exposure control *Adjustment of mA and/or kV according to patient size (this includes techniques or standardized protocols for targeted exams where dose is matched to indication/reason for exam; i.e. extremities or head) *Use of iterative reconstruction technique DLP: 680 mGy-cm FINDINGS: There is no acute intracranial hemorrhage. There is mild microvascular ischemic change. Talavera-white matter differentiation is well preserved. The basal ganglia are well preserved. There is no midline shift or mass effect. There is no extra-axial fluid collection. The ventricles are normal in size. The orbits are symmetric and within normal limits. The mastoid air cells are clear. The paranasal sinuses are well aerated. CT/CT head for stroke IMPRESSION: No acute intracranial pathology. Mild microvascular ischemic change. This critical result was discussed with Dr Finch at 10:34 PM hours on 04/22/2024. It was ascertained that the content and urgency of the report was understood at the time of direct communication.
--- NOTE | 2024-04-22 22:10 | ECG_ITS ---
Test Reason : STROKE Blood Pressure : / mmHG Vent. Rate : 087 BPM Atrial Rate : 087 BPM P-R Int : 164 ms QRS Dur : 112 ms QT Int : 378 ms P-R-T Axes : 054 027 018 degrees QTc Int : 454 ms Normal sinus rhythm Normal ECG When compared with ECG of 31-MAR-2024 09:58, Nonspecific T wave abnormality now evident in Lateral leads Referred By: Mark Finch Electronically Signed By:Austen Castaneda
--- NOTE | 2024-04-22 22:18 | ED_ITS ---
HPI - Altered Mental Status General Chief Complaint: Stroke Stated Complaint: L FACIAL DROOP,?AMS Time Seen by Provider: 04/22/24 22:10 Source: patient, EMS, RN notes reviewed and old records reviewed Mode of arrival: EMS Limitations: no limitations History of Present Illness ED Provider: DR. Finch HPI narrative: 78-year-old gentleman with past medical history significant for MS, chronically bed ridden, chronic lower extremity weakness, BPH, depression, T2 DM on insulin, Crohn's disease, his [facility], nurses noted that the patient is not acting himself, on EMS neuro exam patient found to have mild left upper extremity weakness and left facial weakness of unknown onset of symptoms. No slurred speech, patient is not taking anticoagulation therapy. Patient with a chronic indwelling catheter. Related Data Home Medications ?Medication ?Instructions ?Recorded ?Confirmed gabapentin 300 mg capsule 300 mg PO BID@0630,1200 10/09/20 03/31/24 metformin 500 mg tablet 500 mg PO BID 10/09/20 03/31/24 tramadol 50 mg tablet 50 mg PO Q24H PRN Pain, Moderate 10/09/20 03/31/24 acetaminophen 325 mg tablet 650 mg PO Q4H PRN Moderate Pain 03/13/21 03/31/24 (Scale Score 5-6) aspirin 81 mg chewable tablet 81 mg PO DAILY 03/13/21 03/31/24 rosuvastatin 10 mg tablet 10 mg PO DAILY 03/13/21 03/31/24 guaifenesin 100 mg/5 mL oral 200 mg PO Q4H PRN Cough 05/19/21 03/31/24 liquid (Diabetic Tussin EX) prednisone 2.5 mg tablet 2.5 mg PO DAILY 05/19/21 03/31/24 amlodipine 10 mg tablet 10 mg PO DAILY 11/16/23 03/31/24 bismuth subsalicylate 262 mg/15 mL 524 mg PO Q8H PRN UPSET 11/16/23 03/31/24 oral suspension (Pepto-Bismol) STOMACH/NAUSEA ceramides 1,3,6-II (CeraVe topical 1 appl topical BID Dry Skin 11/16/23 03/31/24 cream) docusate sodium 100 mg capsule 100 mg PO BID 11/16/23 03/31/24 (Colace) famotidine 20 mg tablet 20 mg PO BID 11/16/23 03/31/24 folic acid 1 mg tablet 1 mg PO SUTUWETHFRSA 11/16/23 03/31/24 gabapentin 800 mg tablet 800 mg PO BEDTIME 11/16/23 03/31/24 insulin glargine-yfgn 100 unit/mL 5 unit subcut BEDTIME 11/16/23 03/31/24 subcutaneous solution lactulose 10 gram/15 mL oral 30 ml PO DAILY 11/16/23 03/31/24 solution (Enulose) losartan 25 mg tablet 25 mg PO BEDTIME 11/16/23 03/31/24 melatonin 5 mg tablet 5 mg PO BEDTIME PRN Insomnia 11/16/23 03/31/24 ondansetron 4 mg disintegrating 4 mg PO Q8H PRN Nausea 11/16/23 03/31/24 tablet polyethylene glycol 3350 17 17 g PO DAILY 11/16/23 03/31/24 gram/dose oral powder (Miralax) sennosides 8.6 mg tablet (senna) 17.2 mg PO BEDTIME 11/16/23 03/31/24 zolpidem 6.25 mg tablet,extended 6.25 mg PO BEDTIME 11/16/23 03/31/24 release,multiphase methotrexate sodium 2.5 mg tablet 15 mg PO MO 02/25/24 03/31/24 bisacodyl 5 mg tablet 5 mg PO BEDTIME PRN Constipation 03/31/24 03/31/24 Previous Rx's ?Medication ?Instructions ?Recorded baclofen 20 mg tablet 20 mg PO TID #0 tabs 10/12/20 oseltamivir 75 mg capsule (Tamiflu) 75 mg PO BID 5 days #10 caps 03/31/24 Allergies Allergy/AdvReac Type Severity Reaction Status Date / Time Benzodiazepines Allergy Unknown UNKNOWN Verified 04/22/24 23:22 [BENZODIAZEPINES] dalfampridine [From AMPYRA] Allergy Unknown UNKNOWN Verified 04/22/24 23:22 duloxetine [From CYMBALTA] Allergy Unknown UNKNOWN Verified 04/22/24 23:22 ezetimibe [From ZETIA] Allergy Unknown UNKNOWN Verified 04/22/24 23:22 niacin [NIACIN] Allergy Unknown UNKNOWN Verified 04/22/24 23:22 pravastatin [PRAVASTATIN] Allergy Unknown UNKNOWN Verified 04/22/24 23:22 Yhubsoz-RCZ-UmQ Reductase Allergy Unknown UNKNOWN Verified 04/22/24 23:22 Inhibitor [RDFRXCA-CJG-IPL REDUCTASE INHIBITOR] lorazepam [From ATIVAN] AdvReac Severe EXCESSIVE Verified 04/22/24 23:22 SEDATION doxycycline [DOXYCYCLINE] AdvReac Mild esophogeal Verified 04/22/24 23:22 iritation methylprednisolone AdvReac Mild heartburn Verified 04/22/24 23:22 [From SOLU-MEDROL] ertapenem [From INVANZ] AdvReac Unknown possible Verified 04/11/21 09:47 cause of bullous pemphigoid Review of Systems 2 Review of Systems: All other systems are reviewed and are negative Constitutional: Reports as per HPI and Reports no additional constitutional complaints Eyes: Reports as per HPI and Reports no additional eye complaints Reports system reviewed and no additional complaints, except as documented Cardiovascular: Reports as per HPI and Reports no additional cardiovascular complaints Respiratory: Reports as per HPI and Reports no additional respiratory complaints Gastrointestinal: Reports as per HPI and Reports no additional gastrointestinal complaints Genitourinary: Reports no additional female genitourinary complaints Musculoskeletal: Reports no additional musculoskeletal complaints Skin/Breast: Reports system reviewed and no additional complaints, except as docu Psychiatric: Reports no additional psychiatric complaints Endocrine: Reports no additional endocrine complaints Hematologic/Lymphatic: Reports no additional hematologic/lymphatic complaints Allergic/Immunologic: Reports no additional allergic/immunologic complaints Reports system reviewed and no additional complaints, except as documented and Reports Abnormal speech present [facility] Past Medical History Medical History EDWARD (acute kidney injury) UTI (urinary tract infection) due to urinary indwelling Nunez catheter Bullous pemphigoid Steroid dependence Decubitus ulcer of coccygeal region, stage 2 Acute hypotension Sepsis Aspiration pneumonitis Recurrent UTI (urinary tract infection) Hypotonic neurogenic bladder Lytic lesion of bone on x-ray Wound of foot Anemia Septic shock Shoulder pain Constipation Hematuria Multiple sclerosis Depression Diabetes mellitus type 2 in obese Chronic pain syndrome BPH (benign prostatic hyperplasia) Dehydration Chronic renal failure Urinary tract infection Surgical History Hx of removal of cyst Family History Family History Family/Other Heart attack Father Diabetes Social History Social History Household Members: Other Household Members Other:: lives at [facility] on [address] in [place] Housing: Assisted Living Facility Housing Other:: [facility] Do you presently have visiting nurse or other home services: Yes Unable to assess alcohol history related to: Unable to respond Alcohol intake: never Comment: pt sedated on vent. Patient Tobacco Use Status: Former Tobacco user Cigarette Packs Per Day: 1 Advance Directives: Yes Advance Directives on File: Yes Advance Directives Date on File: 04/22/24 Do you have a plan to hurt others: No Plan service: Yes Current occupational status: retired Physical Exam ED Vital Signs: Vital Signs - 24 hr 04/22/24 22:51 04/23/24 01:06 Temperature 97.9 F Pulse Rate 86 82 Respiratory Rate 12 12 Blood Pressure 131/66 130/67 Pulse Oximetry 99 98 Oxygen Delivery Method Room Air Room Air BMI result Body Mass Index 26.6 Vital signs have been reviewed and appear to be correct. Blood pressure elevated. Heart rate normal. Respiratory rate normal. Temperature normal. Oxygen saturation normal. Appearance: Alert. Oriented X3. No acute distress. Head: Normal external exam. Normocephalic. Atraumatic. No Calderón signs noted. No raccoon eyes noted Eyes: PERRLA. EOMI. Conjunctiva and sclera normal. Eyelids normal. ENT: TM's Normal. Pharynx normal. Uvula midline. Moist mucous membranes. No trismus noted. No drooling noted. No muffled voice noted. Neck: Normal inspection. Neck supple. FROM. No adenopathy. Thyroid Normal. No meningeal signs. No neck mass noted. CVS: Normal heart rate and rhythm. Heart sound normal. No murmurs noted. Pulses normal throughout. Respiratory: No respiratory distress. Painless inspiration. Breath sounds normal. No wheezes/rales/rhonchi noted. Chest nontender. No accessory muscle usage noted or decreased air movement noted. Abdomen: Soft and nontender. Bowel sounds normal in all 4 quadrants. No distention noted. No organomegaly noted. No visible injury noted. Back: No CVA tenderness. Full range of motion noted. Skin: Skin warm and dry. Normal skin color. Normal skin turgor. No rashes/lesions/lacerations noted. Extremities: No lower extremity edema. Extremities exhibit normal range of motion. Extremities nontender. Neuro: Oriented X 3. Cranial nerve exam: II-XII are grossly intact No motor deficit. No sensory deficit. Reflexes normal. NIH Stroke Scale Time: 22:23 Level of Consciousness: Alert Level of Consciousness Questions: Answers both questions correctly Level of Consciousness Commands: Performs both tasks correctly Best Gaze: Normal Visual: No visual loss Facial Palsy: Minor paralyis (Left facial weakness.) Motor Arm (Right): No drift Motor Arm (Left): Drift Motor Leg (Right): No movement (Pre-existing due to MS) Motor Leg (Left): No movement (Pre-existing due to MS) Limb Ataxia: Absent Sensory: Normal Best Language: No aphasia Dysarthia: Normal Extinction and Inattention: No abnormality Score: 10 Course Reevaluation(s) Reevaluation #1: 79[facility] for [facility] status change, noted on EMS exam to have left facial droop and left upper extremity weakness, patient had a total NIH score of 10 the high NIH score is related to pre-existing weakness in bilateral lower extremity from the pre-existing MS. Case, and CT head/CTA of the head and neck were discussed with Dr. Cesar who recommended aspirin administration, no TNK. Patient found to have UTI will start the patient on ceftriaxone, will change Nunez catheter in the emergency department. Time: 01:10 Reevaluation #2: New Nunez catheter was replaced by me after 3 unsuccessful attempts by nurses, clean urine sample was re- sent. Time: 02:54 Medications Administered Generic Name Dose Route Start Last Admin Trade Name Freq PRN Reason Stop Dose Admin Enoxaparin Sodium 40 mg 04/23/24 01:15 04/23/24 02:24 Enoxaparin Sodium 40 Mg/0.4 Ml Syringe SUBCUT 40 mg BEDTIME WICHO Administration Discontinued Medications Generic Name Dose Route Start Last Admin Trade Name Freq PRN Reason Stop Dose Admin Ceftriaxone Sodium 1 gm/ 50 mls @ 100 mls/hr 04/23/24 01:06 04/23/24 02:23 Sodium Chloride IV 04/23/24 01:35 100 mls/hr ONCE ONE Administration Sodium Chloride 1,000 mls @ 999 mls/hr 04/23/24 01:06 04/23/24 02:24 Ns IV 04/23/24 02:06 999 mls/hr .Q1H1M ONE Administration Iohexol 75 ml 04/22/24 22:29 04/22/24 22:30 Iohexol 350 Mg/Ml 100 Ml Infus..Btl IV 04/22/24 22:30 75 ml ONCE ONE Administration Medical Decision Making Differential Diagnosis Differential Diagnoses: The differential diagnosis associated with the presentation includes (Hemorrhagic stroke, ischemic stroke, metabolic encephalopathy, UTI, electrolyte derangement, severe anemia, exacerbation of MS.) Admission/Observation Consideration of admission/observation: Escalation of care including admission/observation considered Consult Healthcare Provider Management of the patient was discussed with: Hospitalist (dr. Felix) and Paper Tester (Dr. Cesar) Lab Data MDM Lab Attestation statement: I reviewed the patient's lab results. 04/22/24 23:02 04/22/24 23:02 Labs: Lab Results 04/22/24 04/22/24 04/22/24 Range/Units 22:15 23:02 23:55 WBC 16.6 H (4.8-10.8) X10*3/uL RBC 3.34 L (4.60-5.80) X10*6/uL Hgb 10.2 L (14.0-18.0) g/dl Hct 30.9 L (42.0-52.0) % MCV 92.5 (80.0-98.0) fL MCH 30.5 (27.0-33.0) pg MCHC 33.0 (31.0-36.0) g/dl RDW 18.5 H (11.0-16.0) % Plt Count 227 (160-400) X10*3/uL MPV 9.8 (9.4-12.4) fL Immature Gran % (Auto) 0.4 (0.0-0.4) % Neut % (Auto) 80.2 H (45-73) % Lymph % (Auto) 9.7 L (20-40) % [place] % (Auto) 9.0 (2-11) % Eos % (Auto) 0.5 (0-4) % Baso % (Auto) 0.2 (0-2) % Lymph # (Auto) 1.6 (1.2-4.9) X10*3/uL [place] # (Auto) 1.5 H (0.1-1.2) X10*3/uL Eos # (Auto) 0.1 (0.0-0.4) X10*3/uL Baso # (Auto) 0.0 (0.0-0.2) X10*3/uL Abs Immat Gran (auto) 0.07 H (0.00-0.03) X10*3/uL Absolute Neuts (auto) 13.3 H (2.0-8.3) x10*3/uL Absolute Nucleated RBC 0.000 (0.0-0.012) X10*3/uL Nucleated RBC % (auto) 0.0 (0.0-0.2) /100WBC PT 11.7 (11.1-13.3) SEC Whole Blood PT 12.2 (11.1-13.5) sec INR 1.0 (0.9-1.1) Whole Blood INR 1.0 (0.9-1.1) APTT 29.8 (26.0-36.8) SEC Sodium 135 (135-145) mmol/L Potassium 4.1 (3.3-5.1) mmol/L Chloride 101 (96-108) mmol/L Carbon Dioxide 22 (22-29) mmol/L Anion Gap 16 (12-20) BUN 40 H (9-16) mg/dL Creatinine 1.32 (0.5-1.4) mg/dL Estim Creat Clear Calc TNP Estimated GFR 53 POC Glucose 134 H (60-115) mg/dL Random Glucose 133 H (60-115) mg/dL Calcium 8.7 (8.4-10.2) mg/dL Total Creatine Kinase 20 L (38-174) U/L Troponin I High Sens 5.9 (<3.5-35.0) ng/L Urine Color Yellow Urine Appearance Turbid Urine pH 7.5 (5.0-9.0) Ur Specific [place] >= 1.030 H (1.005-1.025) Urine Protein 100 (2+) H (Neg-Trace) mg/dL Urine Glucose (UA) Negative (Negative) mg/dL Urine Ketones Negative (Negative) mg/dL Urine Blood Trace H (Negative) Urine Nitrite Positive H (Negative) Ur Leukocyte Esterase Large (3+) H (Negative) Urine RBC 6-10 H (0-2) /HPF Urine WBC >50 H (0-5) /HPF Ur Squamous Epith Cells 0-2 (0-2) /HPF Other Crystals Present Urine Bacteria 4+ (None Seen) Hyaline Casts 6-10 (0-2) /LPF Independent Interpretation I performed an independent interpretation of an: Plain X-Ray (Chest: No acute intrathoracic pathology.) and CT Scan (Head:No acute intracranial pathology. Mild microvascular ischemic change. ) Radiology Impression Discussion of test interpretation with radiology: I have reviewed the radiologist's reading. Discharge Plan Discharge Clinical Impression: Acute UTI, Multiple sclerosis, Altered mental status Patient Disposition: Admitted As Inpatient
[2024-04-22 22:20] LABS: Glucose, Whole Blood 134 mg/dL (60-115); Prothrombin Time Whole Bld POC 12.2 sec (11.1-13.5)
[2024-04-22] MEDS: iohexoL 350 MG/ML 100 ML INFUS..BTL 75 ML IV (22:30)
[2024-04-22 22:51] VITALS: BP 131/66; PULSE 86; RESP 12; O2SAT 99
--- NOTE | 2024-04-22 22:53 | MHC.EDTECH ---
Patient inc stool upon arrival therefore patient changed and repositioned
[2024-04-22 23:07] LABS: MANUAL DIFF FLAG NO
[2024-04-22 23:08] LABS: Basophils Percent Auto 0.2 % (0-2); Eosinophils Absolute Auto 0.1 X10*3/uL (0.0-0.4); Eosinophils Percent Auto 0.5 % (0-4); Hematocrit 30.9 % (42.0-52.0); Hemoglobin 10.2 g/dl (14.0-18.0); Imm Gran Abs Auto 0.07 X10*3/uL (0.00-0.03); Imm Gran Pct Auto 0.4 % (0.0-0.4); Lymphocytes Absolute Auto 1.6 X10*3/uL (1.2-4.9); Lymphocytes Percent Auto 9.7 % (20-40); Mean Corpuscular Hemoglobin 30.5 pg (27.0-33.0); Mean Corpuscular Volume 92.5 fL (80.0-98.0); Mean Platelet Volume 9.8 fL (9.4-12.4); Monocytes Absolute Auto 1.5 X10*3/uL (0.1-1.2); Neutrophils Absolute Auto 13.3 x10*3/uL (2.0-8.3); Neutrophils Percent Auto 80.2 % (45-73); Platelet Count 227 X10*3/uL (160-400); Red Blood Count 3.34 X10*6/uL (4.60-5.80); Red Cell Distribution Width 18.5 % (11.0-16.0); White Blood Count 16.6 X10*3/uL (4.8-10.8)
[2024-04-22 23:14] LABS: Prothrombin Time 11.7 SEC (11.1-13.3)
[2024-04-22 23:17] VITALS: BMI 26.6
[2024-04-22 23:17] LABS: Partial Thromboplastin Time 29.8 SEC (26.0-36.8)
[2024-04-22 23:21] LABS: Anion Gap 16 (12-20); Blood Urea Nitrogen 40 mg/dL (9-16); Calcium 8.7 mg/dL (8.4-10.2); Carbon Dioxide 22 mmol/L (22-29); Chloride 101 mmol/L (96-108); Estimated Glomerular Filt Rate 53; Glucose Random 133 mg/dL (60-115); Potassium 4.1 mmol/L (3.3-5.1); Sodium 135 mmol/L (135-145)
[2024-04-22 23:28] LABS: Stroke Lab Use COMPLETE
[2024-04-22 23:29] LABS: Troponin-I High Sensitivity 5.9 ng/L (<3.5-35.0)
[2024-04-23] VITALS (8 sets, daily range): BP systolic 130–161; BP diastolic 63–75; PULSE 65–102; RESP 12–20; TEMP 36.1–37.4; O2SAT 97–100; BMI 26.6
[2024-04-23 00:15] LABS: Appearance Urine Turbid; Color Urine Yellow; Glucose Urine UA Negative (Negative); Leukocyte Esterase Urine Large (3+) (Negative); Nitrite Urine Positive (Negative); PH 7.5 (5.0-9.0); Specific Gravity - Urine >= 1.030 (1.005-1.025); UMIC TRIGGER UACC YES; Urine Blood Trace (Negative); Urine Ketones Negative (Negative); Urine Protein 100 (2+) mg/dL (Neg-Trace)
[2024-04-23 00:33] LABS: Bacteria Urine 4+ (None Seen); Other Crystals Urine Present; Squamous Epithelial Cell Urine 0-2 /HPF (0-2); UACC Culture Trigger YES; WBC Urine >50 /HPF (0-5)
--- NOTE | 2024-04-23 01:07 | PC.NURSE ---
pt being more confused, he took out one of iv''s reoriented to place and time
--- NOTE | 2024-04-23 01:11 | P.HPHOSP_ITS ---
History of Present Illness Date of Service: 04/23/24 Chief Complaint: Altered mentation This is a 79-year-old male with pertinent history of MS chronically bed-bound, chronic indwelling Nunez catheter, bullous pemphigoid on chronic steroids, mood disorder, mixed hyperlipidemia, hypertension, insulin-dependent diabetes mellitus who was sent to the emergency department for evaluation of lethargy. As per senior care, patient was not acting himself and hence EMS was called. Patient is a poor historian and unable to provide history. History obtained with the help of ER provider and chart review. As per EMS, mild upper extremity weakness was noted and patient presented to the ER as a stroke alert. CT head and CT angio was done. Case was discussed with Neurology by ER provider and patient is change in mentation was attributed less likely due to CVA. In the emergency department, patient was found to have leukocytosis and urine concerning for UTI. Review of Systems 2 Review of Systems: Yes Unobtainable due to mental status PMFSH Medical History EDWARD (acute kidney injury) UTI (urinary tract infection) due to urinary indwelling Nunez catheter Bullous pemphigoid Steroid dependence Decubitus ulcer of coccygeal region, stage 2 Acute hypotension Sepsis Aspiration pneumonitis Recurrent UTI (urinary tract infection) Hypotonic neurogenic bladder Lytic lesion of bone on x-ray Wound of foot Anemia Septic shock Shoulder pain Constipation Hematuria Multiple sclerosis Depression Diabetes mellitus type 2 in obese Chronic pain syndrome BPH (benign prostatic hyperplasia) Dehydration Chronic renal failure Urinary tract infection Family History Family/Other Heart attack Father Diabetes Surgical History Hx of removal of cyst Social History Household Members: Other Household Members Other:: lives at [facility] in [place] Housing: Assisted Living Facility Housing Other:: [facility] Do you presently have visiting nurse or other home services: Yes Unable to assess alcohol history related to: Unable to respond Alcohol intake: never Comment: pt sedated on vent. Patient Tobacco Use Status: Former Tobacco user Cigarette Packs Per Day: 1 Advance Directives: Yes Advance Directives on File: Yes Advance Directives Date on File: 04/22/24 Do you have a plan to hurt others: No Plan service: Yes Current occupational status: retired Meds Allergies Allergy/AdvReac Type Severity Reaction Status Date / Time Benzodiazepines Allergy Unknown UNKNOWN Verified 04/22/24 23:22 [BENZODIAZEPINES] dalfampridine [From AMPYRA] Allergy Unknown UNKNOWN Verified 04/22/24 23:22 duloxetine [From CYMBALTA] Allergy Unknown UNKNOWN Verified 04/22/24 23:22 ezetimibe [From ZETIA] Allergy Unknown UNKNOWN Verified 04/22/24 23:22 niacin [NIACIN] Allergy Unknown UNKNOWN Verified 04/22/24 23:22 pravastatin [PRAVASTATIN] Allergy Unknown UNKNOWN Verified 04/22/24 23:22 Kytohev-HWB-SjH Reductase Allergy Unknown UNKNOWN Verified 04/22/24 23:22 Inhibitor [[id number] REDUCTASE INHIBITOR] lorazepam [From ATIVAN] AdvReac Severe EXCESSIVE Verified 04/22/24 23:22 SEDATION doxycycline [DOXYCYCLINE] AdvReac Mild esophogeal Verified 04/22/24 23:22 iritation methylprednisolone AdvReac Mild heartburn Verified 04/22/24 23:22 [From SOLU-MEDROL] ertapenem [From INVANZ] AdvReac Unknown possible Verified 04/11/21 09:47 cause of bullous pemphigoid Active Medications: Current Medications Ceftriaxone Sodium 1 gm/ (Sodium Chloride) 50 mls @ 100 mls/hr IV ONCE ONE Stop: 04/23/24 01:35 Sodium Chloride (Ns) 1,000 mls @ 999 mls/hr IV .Q1H1M ONE Stop: 04/23/24 02:06 Home Medications ?Medication ?Instructions ?Recorded ?Confirmed ?Last Taken ?Type gabapentin 300 mg capsule 300 mg PO BID@0630,1200 10/09/20 03/31/24 Unknown History metformin 500 mg tablet 500 mg PO BID 10/09/20 03/31/24 Unknown History tramadol 50 mg tablet 50 mg PO Q24H PRN Pain, Moderate 10/09/20 03/31/24 Unknown History acetaminophen 325 mg tablet 650 mg PO Q4H PRN Moderate Pain 03/13/21 03/31/24 Unknown History (Scale Score 5-6) aspirin 81 mg chewable tablet 81 mg PO DAILY 03/13/21 03/31/24 Unknown History rosuvastatin 10 mg tablet 10 mg PO DAILY 03/13/21 03/31/24 Unknown History guaifenesin 100 mg/5 mL oral 200 mg PO Q4H PRN Cough 05/19/21 03/31/24 Unknown History liquid (Diabetic Tussin EX) prednisone 2.5 mg tablet 2.5 mg PO DAILY 05/19/21 03/31/24 Unknown History amlodipine 10 mg tablet 10 mg PO DAILY 11/16/23 03/31/24 Unknown History bismuth subsalicylate 262 mg/15 mL 524 mg PO Q8H PRN UPSET 11/16/23 03/31/24 Unknown History oral suspension (Pepto-Bismol) STOMACH/NAUSEA ceramides 1,3,6-II (CeraVe topical 1 appl topical BID Dry Skin 11/16/23 03/31/24 Unknown History cream) docusate sodium 100 mg capsule 100 mg PO BID 11/16/23 03/31/24 Unknown History (Colace) famotidine 20 mg tablet 20 mg PO BID 11/16/23 03/31/24 Unknown History folic acid 1 mg tablet 1 mg PO SUTUWETHFRSA 11/16/23 03/31/24 Unknown History gabapentin 800 mg tablet 800 mg PO BEDTIME 11/16/23 03/31/24 Unknown History insulin glargine-yfgn 100 unit/mL 5 unit subcut BEDTIME 11/16/23 03/31/24 Unknown History subcutaneous solution lactulose 10 gram/15 mL oral 30 ml PO DAILY 11/16/23 03/31/24 Unknown History solution (Enulose) losartan 25 mg tablet 25 mg PO BEDTIME 11/16/23 03/31/24 Unknown History melatonin 5 mg tablet 5 mg PO BEDTIME PRN Insomnia 11/16/23 03/31/24 Unknown History ondansetron 4 mg disintegrating 4 mg PO Q8H PRN Nausea 11/16/23 03/31/24 Unknown History tablet polyethylene glycol 3350 17 17 g PO DAILY 11/16/23 03/31/24 Unknown History gram/dose oral powder (Miralax) sennosides 8.6 mg tablet (senna) 17.2 mg PO BEDTIME 11/16/23 03/31/24 Unknown History zolpidem 6.25 mg tablet,extended 6.25 mg PO BEDTIME 11/16/23 03/31/24 Unknown History release,multiphase methotrexate sodium 2.5 mg tablet 15 mg PO MO 02/25/24 03/31/24 Unknown History bisacodyl 5 mg tablet 5 mg PO BEDTIME PRN Constipation 03/31/24 03/31/24 Unknown History Physical Exam 2 Vital Signs and Narrative: Vital Signs: Last Vital Signs Temp 97.9 F 04/23/24 01:06 Pulse 82 04/23/24 01:06 Resp 12 04/23/24 01:06 BP 130/67 04/23/24 01:06 Pulse Ox 98 04/23/24 01:06 O2 Del Method Room Air 04/23/24 01:06 BMI result Body Mass Index 26.6 Elderly male lying in bed in no distress Neck supple, no JVD Regular rate and rhythm, S1-S2 heard Regular breath sounds bilaterally, no wheezing or crackles appreciated Abdomen soft nontender, no guarding, no rigidity Patient is awake, alert and oriented to self, disoriented to place, time and person ; no facial droop, no focal motor weakness Psych: Normal mood No pedal edema Results Labs 04/22/24 23:02 04/22/24 23:02 Labs: Laboratory Results - last 24 hr 04/22/24 04/22/24 04/22/24 22:15 23:02 23:55 MCV 92.5 MCH 30.5 MCHC 33.0 RDW 18.5 H Plt Count 227 MPV 9.8 Immature Gran % (Auto) 0.4 Neut % (Auto) 80.2 H Lymph % (Auto) 9.7 L [place] % (Auto) 9.0 Eos % (Auto) 0.5 Baso % (Auto) 0.2 Lymph # (Auto) 1.6 [place] # (Auto) 1.5 H Eos # (Auto) 0.1 Baso # (Auto) 0.0 Abs Immat Gran (auto) 0.07 H Absolute Neuts (auto) 13.3 H Absolute Nucleated RBC 0.000 Nucleated RBC % (auto) 0.0 PT 11.7 Whole Blood PT 12.2 INR 1.0 Whole Blood INR 1.0 APTT 29.8 Anion Gap 16 Estim Creat Clear Calc TNP Estimated GFR 53 POC Glucose 134 H Random Glucose 133 H Calcium 8.7 Total Creatine Kinase 20 L Troponin I High Sens 5.9 Urine Color Yellow Urine Appearance Turbid Urine pH 7.5 Ur Specific [place] >= 1.030 H Urine Protein 100 (2+) H Urine Glucose (UA) Negative Urine Ketones Negative Urine Blood Trace H Urine Nitrite Positive H Ur Leukocyte Esterase Large (3+) H Urine RBC 6-10 H Urine WBC >50 H Ur Squamous Epith Cells 0-2 Other Crystals Present Urine Bacteria 4+ Hyaline Casts 6-10 Imaging Radiologist's Impressions: Impressions Head CT 04/22/24 22:25 IMPRESSION: No acute intracranial pathology. Mild microvascular ischemic change. This critical result was discussed with Dr Finch at 10:34 PM hours on 04/22/2024. It was ascertained that the content and urgency of the report was understood at the time of direct communication. Chest X-Ray 04/22/24 22:35 IMPRESSION: 1. Chronic left basilar radiopacity. 2. Bilateral low lung volumes. Head/Neck CTA 04/22/24 22:37 IMPRESSION: 1. No acute intracranial findings. 2. No acute arterial occlusion or hemodynamically significant stenosis within the head or neck. 3. New subtotally opacified right sphenoid sinus with air-fluid level and hyperdense contents, which may reflect proteinaceous contents, chronic fungal elements, or hemosinus and can be correlated clinically 4. New left mastoid effusion. 5. New aspirated secretions along the right posterolateral tracheal wall. This critical result was discussed with Dr Finch at 10:57 PM on 04/22/2024 and it was ascertained that the content and urgency of the report was understood at the time of direct communication. Assessment and Plan (1) Altered mental status: Status: Acute (2) Acute UTI: Status: Acute Plan This is a 79-year-old male with pertinent history of MS chronically bed-bound, chronic indwelling Nunez catheter, bullous pemphigoid on chronic steroids, mood disorder, mixed hyperlipidemia, hypertension, insulin-dependent diabetes mellitus who was sent to the emergency department for evaluation of lethargy. #. Acute metabolic encephalopathy due to complicated UTI: Will admit patient and initiate empiric IV antibiotics. Monitor mentation and urine culture. Reviewed previous urine culture. Low suspicion for CVA as a cause of encephalopathy. Case was discussed with Dr. Cesar by ER physician. Defer MRI #. Insulin-dependent diabetes mellitus: Initiating Accu-Cheks with sliding scale insulin #. Multiple sclerosis: Bed-bound. On baclofen #. Bullous pemphigoid: Increase chronic steroid dosage while hospitalized #. Hypertension: Continue home anti hypertensives #. Mixed hyperlipidemia: On statin Med rec pending DVT prophylaxis: Lovenox Full code. MOLST form present on at patient Admit as inpatient and will require two night minimum hospital stay for IV antibiotics, monitoring of mentation (as above), which is not possible in a lesser acute setting. Quality Stroke Does the patient have a stroke diagnosis?: No VTE Prior VTE?: No VTE Risk Level:: Medical - moderate - high VTE Device Contraindication: Treatment Not Indicated VTE Drug Contraindication: N/A - Med Ordered
--- NOTE | 2024-04-23 01:40 | PC.NURSE ---
Chronic carty removed per Dr. Kay, staff attempted 3 x times with no success. Hospitalist aware
[2024-04-23 02:11] LABS: Lactic Acid 0.8 mmol/L (0.5-2.0)
--- NOTE | 2024-04-23 02:13 | PC.NURSE ---
carty cath placed by Dr. Finch
[2024-04-23] MEDS: cefTRIAXone sodium 1 GM in 0.9 % Sodium Chloride 50 ML IV (02:23)
[2024-04-23] MEDS: 0.9 % Sodium Chloride 1,000 ML 999 ML IV (02:24)
[2024-04-23] MEDS: Enoxaparin Sodium 40 MG/0.4 ML SYRINGE SUBCUT ×2 (02:24→21:03)
[2024-04-23] MEDS: cefEPime HCl 1 GM in 0.9 % Sodium Chloride 50 ML IV ×2 (03:01→16:16)
--- NOTE | 2024-04-23 04:39 | PC.NURSE ---
pt reported his bilateral toes hurt when something touches them, via sheets or blankets
[2024-04-23 06:17] LABS: Hematocrit 30.4 % (42.0-52.0); Mean Corpuscular HGB Conc 32.9 g/dl (31.0-36.0); Mean Corpuscular Hemoglobin 30.8 pg (27.0-33.0); Mean Corpuscular Volume 93.5 fL (80.0-98.0); Mean Platelet Volume 10.2 fL (9.4-12.4); Platelet Count 210 X10*3/uL (160-400); Red Blood Count 3.25 X10*6/uL (4.60-5.80); Red Cell Distribution Width 18.3 % (11.0-16.0); White Blood Count 12.9 X10*3/uL (4.8-10.8)
[2024-04-23 06:25] LABS: Anion Gap 14 (12-20); Blood Urea Nitrogen 37 mg/dL (9-16); Calcium 8.8 mg/dL (8.4-10.2); Carbon Dioxide 21 mmol/L (22-29); Chloride 106 mmol/L (96-108); Creatinine Clr Calc Pharmacy 60.6; Estimated Glomerular Filt Rate > 60; Glucose Random 107 mg/dL (60-115); Potassium 3.7 mmol/L (3.3-5.1); Sodium 137 mmol/L (135-145)
--- NOTE | 2024-04-23 06:30 | MHC.EDTECH ---
Pt underpads changed and Pt repositioned.
[2024-04-23 07:59] LABS: Glucose, Whole Blood 85 mg/dL (60-115)
--- NOTE | 2024-04-23 09:13 | HO.WOUND ---
Wound Consult: Initial 79yr old? Male admitted to [facility] on 04/23/24 01:09- See progress notes and H&P for detailed history.? Wound consult placed for Coccyx wound POA.? Patient agreeable to assessment and photo documentation.? Bilateral feet noted for resurfacing wounds - see photos below - chart review reveal history of BP - Bullous Pemphigoid although the wounds are in various stages of healing and no bulla observed if this is infact BP topical treatment should include topical steroid application and cover to protect wounds from infection. Dr. Sykes made aware. Right Heel red - intact and remains blanchable. Bilateral Feet and legs Etiology: Deep Tissue Injury Present on Admission Measurements: 5cm x 3cm x 0.2cm Wound Bed: nonblanchable maroon red purple tissue - areas of partial and full thickness tissue loss Drainage / Odor: None noted at this time Edges: ? poorly defined Meghan wound: ?MASD (Moisture Associated Skin Damage - No Induration, Fluctuance or Warmth noted Pain: Patient reports pain Goals of Treatment: ? Triad to allow for autolytic debridement and moist wound healing foam dressing to protect from friction and moisture Recommendations: 1. Turn and Reposition every 2 hours and as needed for patient comfort.? Use pillows or wedges to support off loading positions. 2. Off Load all bony prominences with use of pillows and heel boots if needed.? Apply Preventative foams where needed. ? 3. Monitor for incontinence and moisture control, use barrier creams when needed for prevention and treatment. 4. Provide adequate and supplemental nutrition.? 5. Order low air loss mattress. 6. When applicable maintain blood glucose levels per Providers order. 7. Sacrum - Off Load Pressure - Cleanse with PH balance spray or wipes, pat dry. ?Apply thin layer of Triad to wound bed. Do not remove all of paste between applications as this may cause further skin damage.? Cover with foam dressing to aid in off loading and protection from friction. 8. Bilateral Feet - Off load in Heel Protector Boots. Gently cleanse with NS, pat dry. Apply topical steroid per provider order, cover with no-stick gauze and gauze wrap. Change daily. Re-consult wound care Nurse for wound deterioration or wound changes.
[2024-04-23] MEDS: 0.9 % Sodium Chloride Flush 3 ML SYRINGE IVFLUSH ×3 (10:56→21:03)
--- NOTE | 2024-04-23 11:15 | PHA.MEDREC ---
Pharmacy Consult ? Medication Reconciliation Pharmacy has completed the medication reconciliation. used list from [facility] on [address].
--- NOTE | 2024-04-23 12:19 | HO.PM.IMPN ---
Subjective Subjective Date of Service: 04/23/24 Interval History: Seen and examined this morning Follow-up for UTI Patient awake, alert, speaking in full sentences, forgetful Physical Exam Vital Signs: Vital Signs: Last Vital Signs Temp 97.7 F 04/23/24 11:18 Pulse 65 04/23/24 11:18 Resp 20 04/23/24 11:18 BP 134/63 04/23/24 11:18 Pulse Ox 100 04/23/24 11:18 O2 Del Method Room Air 04/23/24 11:18 BMI result Body Mass Index 26.6 Objective Data Active Medications Acetaminophen (Acetaminophen 325 Mg Tablet) 650 mg PO Q6H PRN PRN Reason: Pain, Mild (Pain Scale 1-3) Enoxaparin Sodium (Enoxaparin Sodium 40 Mg/0.4 Ml Syringe) 40 mg SUBCUT BEDTIME [facility] Last Admin: 04/23/24 02:24 Dose: 40 mg Documented By: SHASHI Glucose (Glucose Gel 15 Gm Gel..Gram.) 15 gm PO Q15M PRN; Protocol PRN Reason: per Hypoglycemia Standing Ord. Cefepime HCl 1 gm/ Sodium (Chloride) 50 mls @ 100 mls/hr IV Q12H [facility] Last Infusion: 04/23/24 03:49 Dose: Infused Documented By: SHASHI Dextrose (D10) 250 mls @ 750 mls/hr IV Q15M PRN; Protocol PRN Reason: per Hypoglycemia Standing Ord. Melatonin (Melatonin 3 Mg Tablet) 6 mg PO BEDTIME PRN PRN Reason: Insomnia Ondansetron HCl (Ondansetron Hcl 4 Mg/2 Ml Vial) 4 mg IVPUSH Q8H PRN PRN Reason: Nausea and Vomiting Sodium Chloride (0.9 % Sodium Chloride Flush 3 Ml Syringe) 3 ml IVFLUSH QSHIFT [facility] Last Admin: 04/23/24 10:56 Dose: 3 ml Documented By: PORTILLO Labs 04/23/24 05:55 04/23/24 05:55 Labs: Laboratory Results - last 24 hr 04/22/24 04/22/24 04/22/24 22:15 23:02 23:55 MCV 92.5 MCH 30.5 MCHC 33.0 RDW 18.5 H Plt Count 227 MPV 9.8 Immature Gran % (Auto) 0.4 Neut % (Auto) 80.2 H Lymph % (Auto) 9.7 L [place] % (Auto) 9.0 Eos % (Auto) 0.5 Baso % (Auto) 0.2 Lymph # (Auto) 1.6 [place] # (Auto) 1.5 H Eos # (Auto) 0.1 Baso # (Auto) 0.0 Abs Immat Gran (auto) 0.07 H Absolute Neuts (auto) 13.3 H Absolute Nucleated RBC 0.000 Nucleated RBC % (auto) 0.0 PT 11.7 Whole Blood PT 12.2 INR 1.0 Whole Blood INR 1.0 APTT 29.8 Anion Gap 16 Estim Creat Clear Calc TNP Estimated GFR 53 POC Glucose 134 H Random Glucose 133 H Lactic Acid Calcium 8.7 Total Creatine Kinase 20 L Troponin I High Sens 5.9 Urine Color Yellow Urine Appearance Turbid Urine pH 7.5 Ur Specific [place] >= 1.030 H Urine Protein 100 (2+) H Urine Glucose (UA) Negative Urine Ketones Negative Urine Blood Trace H Urine Nitrite Positive H Ur Leukocyte Esterase Large (3+) H Urine RBC 6-10 H Urine WBC >50 H Ur Squamous Epith Cells 0-2 Other Crystals Present Urine Bacteria 4+ Hyaline Casts 6-10 04/23/24 04/23/24 04/23/24 01:47 05:55 07:55 MCV 93.5 MCH 30.8 MCHC 32.9 RDW 18.3 H Plt Count 210 MPV 10.2 Immature Gran % (Auto) Neut % (Auto) Lymph % (Auto) [place] % (Auto) Eos % (Auto) Baso % (Auto) Lymph # (Auto) [place] # (Auto) Eos # (Auto) Baso # (Auto) Abs Immat Gran (auto) Absolute Neuts (auto) Absolute Nucleated RBC 0.000 Nucleated RBC % (auto) 0.0 PT Whole Blood PT INR Whole Blood INR APTT Anion Gap 14 Estim Creat Clear Calc 60.6 Estimated GFR > 60 POC Glucose 85 Random Glucose 107 Lactic Acid 0.8 Calcium 8.8 Total Creatine Kinase Troponin I High Sens Urine Color Urine Appearance Urine pH Ur Specific [place] Urine Protein Urine Glucose (UA) Urine Ketones Urine Blood Urine Nitrite Ur Leukocyte Esterase Urine RBC Urine WBC Ur Squamous Epith Cells Other Crystals Urine Bacteria Hyaline Casts Quality Stroke Does the patient have a stroke diagnosis?: No VTE Prior VTE?: No VTE Risk Level:: Medical - moderate - high VTE Device Contraindication: Treatment Not Indicated VTE Drug Contraindication: N/A - Med Ordered
--- NOTE | 2024-04-23 12:28 | PM.EVENT ---
Event Note Date of Service: 04/23/24 Event Note: Seen and examined this morning Follow-up for UTI Patient awake alert, resting in bed comfortably, forgetful This is a 79-year-old male with pertinent history of MS chronically bed-bound, chronic indwelling Nunez catheter, bullous pemphigoid on chronic steroids, mood disorder, mixed hyperlipidemia, hypertension, insulin-dependent diabetes mellitus who was sent to the emergency department for evaluation of lethargy. #. Acute metabolic encephalopathy due to complicated UTI: No sepsis. White count improving. Encephalopathy improving, patient awake and alert but forgetful Reviewed previous urine culture - history of Pseudomonas sensitive to cefepime. Continue IV cefepime Follow-up final culture sensitivities Resume all home medications-if remains awake and alert can resume evening dose of gabapentin #. Insulin-dependent diabetes mellitus: Hold low-dose insulin Follow POCs, continue insulin sliding scale #. Multiple sclerosis: Bed-bound. On baclofen Hold methotrexate #. Bullous pemphigoid: Continue home dose of prednisone wound nurse b/l foot skin rash -see wound nurse picture #. Hypertension: Continue home anti hypertensives #. Mixed hyperlipidemia: On statin Deep tissue injury of sacrum Present on admission Continue local wound care per wound care nurse recommendations DVT prophylaxis: Lovenox Full code. MOLST form present on at patient Time Spent With Patient Time: Total time managing care of this patient today ____ minutes.
--- NOTE | 2024-04-23 13:48 | MHC.CLN ---
RE: CONSULT PT WITH INCREASED NUTRITION RISK R/T PRESSURE INJURY PT IS CURRENTLY NPO WHEN DIET TO ADVANCE; RECOMMEND ADDING ENSURE MAX BID TO PROMOTE WOUND HEALING SUPPLEMENT PROVIDES 300KCALS, 60G PROTEIN MONITOR PO AND ENCOURAGE SUPPLEMENTS SEE ALSO FULL CLINICAL NUTRITION ASSESSMENT
--- NOTE | 2024-04-23 15:10 | MHC.CM.PN ---
IMM 04/23/24, EMR REVIEWED, PT W/MS ADMITTED W/AMS D/T UTI, CM MET W/PT WHO REPORTS HE LIVES AT [facility], UNABLE TO STAND/WALK AND IS PRIMARILY IN BED, PT REPORTS PLAN IS TO RETURN TO [facility] WHEN MEDICALLY CLEARED. PT CONCERNED HIS READING GLASSES AND BIFOCALS IN THE ED HOWEVER CM DID CONFIRM THAT THEY WERE LEFT BEHIND AT FACILITY AND PT'S WILL PICK THEM UP AND BRING THEM TO PT. PCP AND HCP/POA/LIVING WILL ON FILE VERIFIED.
[2024-04-23 16:06] LABS: Glucose, Whole Blood 97 mg/dL (60-115)
[2024-04-23] MEDS: Baclofen 20 MG TABLET PO ×2 (16:17→21:03)
[2024-04-23 17:19] LABS: TSH reflex Free T4 1.79 uIU/mL (0.32-4.0)
[2024-04-23 20:54] LABS: Glucose, Whole Blood 115 mg/dL (60-115)
[2024-04-23] MEDS: Losartan Potassium 25 MG TABLET PO (21:02)
[2024-04-23] MEDS: traMADoL HCL 50 MG TABLET PO (21:02)
[2024-04-23] MEDS: Sennosides 8.6 MG TABLET 17.2 MG PO (21:03)
[2024-04-23] MEDS: Famotidine 20 MG TABLET PO (21:03)
[2024-04-23] MEDS: Docusate Sodium 100 MG CAPSULE PO (21:03)
[2024-04-24] MEDS: cefEPime HCl 1 GM in 0.9 % Sodium Chloride 50 ML IV ×2 (01:19→14:55)
[2024-04-24 04:00] VITALS: BP 146/73; PULSE 97; RESP 20; O2SAT 100
[2024-04-24 06:00] VITALS: TEMP 37.2
[2024-04-24 08:00] VITALS: BP 141/79; PULSE 97; RESP 20; TEMP 36.4
[2024-04-24 08:17] LABS: Glucose, Whole Blood 73 mg/dL (60-115)
[2024-04-24] MEDS: 0.9 % Sodium Chloride Flush 3 ML SYRINGE IVFLUSH ×2 (08:35→15:01)
[2024-04-24 08:37] VITALS: BP 141/79
[2024-04-24] MEDS: amLODIPine Besylate 10 MG TABLET PO (08:37)
[2024-04-24] MEDS: Aspirin Enteric Coated 81 MG TABLET.DR PO (08:37)
[2024-04-24] MEDS: Zinc Sulfate 220 MG CAPSULE PO (08:37)
[2024-04-24] MEDS: Docusate Sodium 100 MG CAPSULE PO (08:38)
[2024-04-24] MEDS: predniSONE 2.5 MG TABLET PO (08:38)
[2024-04-24] MEDS: Gabapentin 300 MG CAPSULE PO ×2 (08:38→12:29)
[2024-04-24] MEDS: Famotidine 20 MG TABLET PO (08:38)
[2024-04-24] MEDS: Atorvastatin Calcium 40 MG TABLET PO (08:38)
[2024-04-24] MEDS: Baclofen 20 MG TABLET PO ×2 (08:38→14:55)
[2024-04-24] MEDS: Lactulose 20 GM/30 ML SOLUTION PO (08:38)
[2024-04-24] MEDS: Folic Acid 1 MG TABLET PO (08:46)
[2024-04-24] MEDS: ondansetron HCL 4 MG/2 ML VIAL IVPUSH (09:08)
[2024-04-24 11:23] VITALS: BP 155/70; PULSE 113; RESP 16; TEMP 36.1; O2SAT 98
--- NOTE | 2024-04-24 11:34 | PC.NURSE ---
Pt refusing afternoon POC, aware.
--- NOTE | 2024-04-24 13:20 | HO.PM.IMPN ---
Subjective Subjective Date of Service: 04/24/24 Physical Exam Vital Signs: Vital Signs: Last Vital Signs Temp 97 F 04/24/24 11:23 Pulse 113 H 04/24/24 11:23 Resp 16 04/24/24 11:23 BP 155/70 H 04/24/24 11:23 Pulse Ox 98 04/24/24 11:23 O2 Del Method Room Air 04/24/24 11:23 BMI result Body Mass Index 26.6 Objective Data Active Medications Acetaminophen (Acetaminophen 325 Mg Tablet) 650 mg PO Q6H PRN PRN Reason: Pain, Mild (Pain Scale 1-3) Amlodipine Besylate (Amlodipine Besylate 10 Mg Tablet) 10 mg PO DAILY [facility]; Protocol Last Admin: 04/24/24 08:37 Dose: 10 mg Documented By: MAGALYS Aspirin (Aspirin Enteric Coated 81 Mg Tablet.) 81 mg PO DAILY [facility] Last Admin: 04/24/24 08:37 Dose: 81 mg Documented By: MAGALYS Atorvastatin Calcium (Atorvastatin Calcium 40 Mg Tablet) 40 mg PO DAILY [facility] Last Admin: 04/24/24 08:38 Dose: 40 mg Documented By: MAGALYS Baclofen (Baclofen 20 Mg Tablet) 20 mg PO TID [facility] Last Admin: 04/24/24 08:38 Dose: 20 mg Documented By: MAGALYS Bisacodyl (Bisacodyl 5 Mg Tablet.) 5 mg PO DAILY PRN PRN Reason: Constipation Docusate Sodium (Docusate Sodium 100 Mg Capsule) 100 mg PO BID [facility] Last Admin: 04/24/24 08:38 Dose: 100 mg Documented By: MAGALYS Enoxaparin Sodium (Enoxaparin Sodium 40 Mg/0.4 Ml Syringe) 40 mg SUBCUT BEDTIME [facility] Last Admin: 04/23/24 21:03 Dose: 40 mg Documented By: ROWAN Famotidine (Famotidine 20 Mg Tablet) 20 mg PO BID [facility] Last Admin: 04/24/24 08:38 Dose: 20 mg Documented By: MAGALYS Folic Acid (Folic Acid 1 Mg Tablet) 1 mg PO SuTuWeThFrSa@0900 [facility] Last Admin: 04/24/24 08:46 Dose: 1 mg Documented By: MAGALYS Gabapentin (Gabapentin 300 Mg Capsule) 300 mg PO BID@0630,1200 [facility] Last Admin: 04/24/24 12:29 Dose: 300 mg Documented By: MAGALYS Glucose (Glucose Gel 15 Gm Gel..Gram.) 15 gm PO Q15M PRN; Protocol PRN Reason: per Hypoglycemia Standing Ord. Cefepime HCl 1 gm/ Sodium (Chloride) 50 mls @ 100 mls/hr IV Q12H [facility] Last Infusion: 04/24/24 01:49 Dose: Infused Documented By: ROWAN Dextrose (D10) 250 mls @ 750 mls/hr IV Q15M PRN; Protocol PRN Reason: per Hypoglycemia Standing Ord. Lactulose (Lactulose 20 Gm/30 Ml Solution) 20 gm PO DAILY [facility] Last Admin: 04/24/24 08:38 Dose: 20 gm Documented By: MAGALYS Losartan Potassium (Losartan Potassium 25 Mg Tablet) 25 mg PO BEDTIME WICHO; Protocol Last Admin: 04/23/24 21:02 Dose: 25 mg Documented By: ROWAN Ondansetron HCl (Ondansetron Hcl 4 Mg/2 Ml Vial) 4 mg IVPUSH Q8H PRN PRN Reason: Nausea and Vomiting Last Admin: 04/24/24 09:08 Dose: 4 mg Documented By: MAGALYS Polyethylene Glycol (Polyethylene Glycol 3350 17 Gm Powd.Pack) 17 gm PO DAILY [facility] Last Admin: 04/24/24 08:38 Dose: Not Given Documented By: MAGALYS Non-Admin Reason: Patient Refused Prednisone (Prednisone 2.5 Mg Tablet) 2.5 mg PO DAILY [facility] Last Admin: 04/24/24 08:38 Dose: 2.5 mg Documented By: MAGALYS Senna (Sennosides 8.6 Mg Tablet) 17.2 mg PO BEDTIME WICHO Last Admin: 04/23/24 21:03 Dose: 17.2 mg Documented By: ROWAN Sodium Chloride (0.9 % Sodium Chloride Flush 3 Ml Syringe) 3 ml IVFLUSH QSHIFT [facility] Last Admin: 04/24/24 08:35 Dose: 3 ml Documented By: MAGALYS Tramadol HCl (Tramadol Hcl 50 Mg Tablet) 50 mg PO BEDTIME PRN PRN Reason: moderate to severe pain Last Admin: 04/23/24 21:02 Dose: 50 mg Documented By: ROWAN Zinc Sulfate (Zinc Sulfate 220 Mg Capsule) 220 mg PO DAILY [facility] Last Admin: 04/24/24 08:37 Dose: 220 mg Documented By: MAGALYS Labs 04/23/24 05:55 04/23/24 05:55 Labs: Laboratory Results - last 24 hr 04/23/24 04/23/24 04/23/24 05:55 15:54 20:32 POC Glucose 97 115 TSH 1.79 04/24/24 08:01 POC Glucose 73 TSH Microbiology Microbiology Results: Microbiology 04/23/24 01:55 Blood Culture - Preliminary Blood - Venous No growth after 24 hours. 04/23/24 01:47 Blood Culture - Preliminary Blood - Venous No growth after 24 hours. Assessment and Plan (1) Acute metabolic encephalopathy: Status: Acute Plan This is a 79-year-old male with pertinent history of MS chronically bed-bound, chronic indwelling Nunez catheter, bullous pemphigoid on chronic steroids, mood disorder, mixed hyperlipidemia, hypertension, insulin-dependent diabetes mellitus who was sent to the emergency department for evaluation of lethargy. Acute metabolic encephalopathy due to complicated UTI No sepsis. White count improving. Encephalopathy improving, patient awake and alert but forgetful Reviewed previous urine culture - history of Pseudomonas sensitive to cefepime. Continue IV cefepime Follow-up final culture sensitivities Resume all home medications-if remains awake and alert can resume evening dose of gabapentin Insulin-dependent diabetes mellitus: Follow POCs, continue insulin sliding scale Multiple sclerosis. Bed-bound. On baclofen Hold methotrexate Bullous pemphigoid Continue home dose of prednisone wound nurse b/l foot skin rash -see wound nurse picture Hypertension Continue home anti hypertensives Mixed hyperlipidemia On statin Deep tissue injury of sacrum Present on admission Continue local wound care per wound care nurse recommendations DVT prophylaxis: Lovemichellex Attending Dr. Sykes Full code. MOLST form present on at patient Quality Stroke Does the patient have a stroke diagnosis?: No VTE Prior VTE?: No VTE Risk Level:: Medical - moderate - high VTE Device Contraindication: Treatment Not Indicated VTE Drug Contraindication: N/A - Med Ordered
--- NOTE | 2024-04-24 14:26 | MHC.CM.PN ---
Per [employer], Patient is medically cleared for dc. Patient will return to LTC @ [facility] today at 4PM, via [facility]. Last IMM addressed yesterday. CM left a detailed message for /HCP/Alyx @ [phone].
--- NOTE | 2024-04-24 14:33 | PM.DS ---
DS: Providers Provider Date of Service: 04/24/24 Date of admission: 04/23/24 01:09 Primary care physician: Get Martin MD Consults: 04/23/24 01:05 Consult to Neurology Stat Consulting Provider: [facility] Reason for consultation: stroke Has provider been notified: Yes 04/23/24 09:27 Consult to Wound Care Routine Reason for consultation: DTI to Sacrum and Lower Legs DS: Diagnosis Discharge Diagnosis (1) Acute metabolic encephalopathy: Status: Acute DS: Summary Hospital Course Hospital Course: History and physical as per admitting provider This is a 79-year-old male with pertinent history of MS chronically bed-bound, chronic indwelling Nunez catheter, bullous pemphigoid on chronic steroids, mood disorder, mixed hyperlipidemia, hypertension, insulin-dependent diabetes mellitus who was sent to the emergency department for evaluation of lethargy. As per assisted, patient was not acting himself and hence EMS was called. Patient is a poor historian and unable to provide history. History obtained with the help of ER provider and chart review. As per EMS, mild upper extremity weakness was noted and patient presented to the ER as a stroke alert. CT head and CT angio was done. Case was discussed with Neurology by ER provider and patient is change in mentation was attributed less likely due to CVA. In the emergency department, patient was found to have leukocytosis and urine concerning for UTI. 79-year-old man treated for acute metabolic encephalopathy secondary to urinary tract infection. No sepsis noted. Patient treated with IV cefepime with history of Pseudomonas but urine culture and blood cultures were both negative. Patient can resume 3 more days of Ceftin for total 5 days. His encephalopathy has improved and it appears that he is at his baseline. Diabetes mellitus type 2. Continue home medications Multiple sclerosis. Patient bed-bound. Continue baclofen and methotrexate History of bullous pemphigoid. Continue home dose of prednisone. Wound care Hypertension. Continue home medications Hyperlipidemia. Continue statin History of deep tissue injury to sacrum present on admission. Continue local wound care Recommendations for wound care: 1. Turn and Reposition every 2 hours and as needed for patient comfort.? Use pillows or wedges to support off loading positions. 2. Off Load all bony prominences with use of pillows and heel boots if needed.? Apply Preventative foams where needed. ? 3. Monitor for incontinence and moisture control, use barrier creams when needed for prevention and treatment. 4. Provide adequate and supplemental nutrition.? 5. Order low air loss mattress. 6. When applicable maintain blood glucose levels per Providers order. 7. Sacrum - Off Load Pressure - Cleanse with PH balance spray or wipes, pat dry. ?Apply thin layer of Triad to wound bed. Do not remove all of paste between applications as this may cause further skin damage.? Cover with foam dressing to aid in off loading and protection from friction. 8. Bilateral Feet - Off load in Heel Protector Boots. Gently cleanse with NS, pat dry. Apply topical steroid per provider order, cover with no-stick gauze and gauze wrap. Change daily. Time Attestation Discharge Coordination Time (in mins): 36 Quality: Safe Use of Opioids Does Pt have an Active Cancer Diagnosis on the Problem List?: No Quality: Stroke Does the patient have a stroke diagnosis?: No Physical Exam Vital Signs: Vital Signs: Last Vital Signs Temp 97 F 04/24/24 11:23 Pulse 113 H 04/24/24 11:23 Resp 16 04/24/24 11:23 BP 155/70 H 04/24/24 11:23 Pulse Ox 98 04/24/24 11:23 O2 Del Method Room Air 04/24/24 11:23 BMI result Body Mass Index 26.6 Appearing in no acute distress head is normocephalic atraumatic eyes pupils are PERRLA sclera is anicteric mouth throat mucous membranes are intact and moist neck is supple no lymphadenopathy, no JVD noted lung sounds are clear to auscultation heart regular rate rhythm, clear S1, S2 positive bowel sounds, abdomen is soft, nontender neuro patient is alert intermittent confusion Redness to bilateral feet from old bullous pemphigoid scars, no new bullae noted, deep tissue injury present on admission to patient's sacral area DS: Data Data Completed and Pending Completed studies during hospitalization [Text1]: Procedures Change Drainage Device in Bladder, External Approach (02/25/24) Insertion of Endotracheal Airway into Trachea, Via Natural or Artificial Opening Endoscopic (05/14/21) Insertion of Infusion Device into Superior Vena Cava, Percutaneous Approach (05/14/21) Introduction of Vasopressor into Central Vein, Percutaneous Approach (05/14/21) Respiratory Ventilation, Greater than 96 Consecutive Hours (05/14/21) Ultrasonography of Superior Vena Cava, Guidance (03/13/21) Labs on day of discharge: Laboratory Results - last 24 hr 04/23/24 04/23/24 04/23/24 05:55 15:54 20:32 POC Glucose 97 115 TSH 1.79 04/24/24 08:01 POC Glucose 73 TSH Preliminary micro results at discharge 04/23/24 01:55 Blood Culture - Preliminary Blood - Venous No growth after 24 hours. 04/23/24 01:47 Blood Culture - Preliminary Blood - Venous No growth after 24 hours. Discharge Plan Discharge Anticipated Discharge Date/Time: 04/24/24 14:25 Patient Disposition: er [facility] Discharge Diagnosis: Acute metabolic encephalopathy UTI Referrals: Samantha Mott [Outside] - 1 Week Get Martin MD [Primary Care Provider] - 1 Week Discharge Medications: New cefuroxime axetil 500 mg tablet 500 mg PO BID Qty: 6 0RF Continued metformin 500 mg Tablet 500 mg PO BIDWM Hold Instructions: Resume on 03/25/21. Re-check renal function prior to restarting Metformin gabapentin 300 mg Capsule 300 mg PO BID@0630,1200 tramadol 50 mg Tablet 50 mg PO BEDTIME PRN (Reason: moderate to severe pain) baclofen 20 mg Tablet 20 mg PO TID Qty: 0 0RF acetaminophen 325 mg Tablet 650 mg PO Q4H PRN (Reason: pain or fever) Rx Instructions: pain or fever rosuvastatin 10 mg Tablet 10 mg PO DAILY prednisone 2.5 mg Tablet 2.5 mg PO DAILY guaifenesin [Diabetic Tussin EX] 100 mg/5 mL Liquid 200 mg PO Q4H PRN (Reason: Cough) sennosides [senna] 8.6 mg Tablet 17.2 mg PO BEDTIME famotidine 20 mg Tablet 20 mg PO BID gabapentin 800 mg Tablet 800 mg PO BEDTIME amlodipine 10 mg Tablet 10 mg PO DAILY bismuth subsalicylate [Pepto-Bismol] 262 mg/15 mL Suspension 524 mg PO Q8H PRN (Reason: UPSET STOMACH/NAUSEA) losartan 25 mg Tablet 25 mg PO BEDTIME docusate sodium [Colace] 100 mg Capsule 100 mg PO BID folic acid 1 mg Tablet 1 mg PO SUTUWETHFRSA polyethylene glycol 3350 [Miralax] 17 gram/dose Powder 17 g PO QAM lactulose [Enulose] 10 gram/15 mL Solution 30 ml PO DAILY zolpidem 6.25 mg Tablet,Ext Release Multiphase 6.25 mg PO BEDTIME ceramides 1,3,6-II [CeraVe] Cream 1 appl TOPICAL BID melatonin 5 mg Tablet 5 mg PO BEDTIME PRN (Reason: Insomnia) insulin glargine-yfgn 100 unit/mL Solution 5 unit SUBCUT BEDTIME bisacodyl 5 mg Tablet 5 mg PO DAILY PRN (Reason: Constipation) methotrexate sodium 2.5 mg Tablet 15 mg PO MO aspirin 81 mg Tablet,Delayed Release (Dr/Ec) 81 mg PO DAILY ascorbic acid (vitamin C) 500 mg Tablet 500 mg PO DAILY bisacodyl 10 mg Suppository 10 mg SD DAILY PRN (Reason: Constipation) bisacodyl 10 mg Suppository 10 mg SD Q3D Fleet Enema 19-7 gram/118 mL Enema 118 ml SD DAILY PRN (Reason: Constipation) Rx Instructions: if no result from dulcolax within 2 hours zinc 50 mg Tablet 200 mg PO DAILY guaifenesin [Mucinex] 600 mg Tablet Extended Release 12hr 600 mg PO Q12H PRN (Reason: Cold Symptoms) Discharge Orders: Discharge Order (Routine); Ordered 04/24/24 Ordered By: Sandra Blake Diet: Advance to usual diet Activity on Discharge: As tolerated Stand Alone Forms: Patient Portal Discharge page Print Language: Faroese Care Plan Goals: Follow-up with primary care provider as needed Take all medications as prescribed Recommendations for wound care: 1. Turn and Reposition every 2 hours and as needed for patient comfort.? Use pillows or wedges to support off loading positions. 2. Off Load all bony prominences with use of pillows and heel boots if needed.? Apply Preventative foams where needed. ? 3. Monitor for incontinence and moisture control, use barrier creams when needed for prevention and treatment. 4. Provide adequate and supplemental nutrition.? 5. Order low air loss mattress. 6. When applicable maintain blood glucose levels per Providers order. 7. Sacrum - Off Load Pressure - Cleanse with PH balance spray or wipes, pat dry. ?Apply thin layer of Triad to wound bed. Do not remove all of paste between applications as this may cause further skin damage.? Cover with foam dressing to aid in off loading and protection from friction. 8. Bilateral Feet - Off load in Heel Protector Boots. Gently cleanse with NS, pat dry. Apply topical steroid per provider order, cover with no-stick gauze and gauze wrap. Change daily. Health Concerns: Acute metabolic encephalopathy UTI Plan of Treatment: See care plan goals Assessment: Treated for acute encephalopathy likely secondary to UTI
== END 2024-04-24 17:42 | DRG 689 ==
LOC: HO.ED 04-23 01:10 → HO.EDOVER 04-23 01:22 → HO.IMC 04-23 05:50
PROVIDERS: Physician Assistant Medical; Admitting Provider Student in an Organized Health Care Education/Training Program; Emergency Provider Emergency Medicine; PCP Family Medicine Geriatric Medicine; Visit Provider Nurse Practitioner Acute Care
DX: N39.0 Urinary tract infection, site not specified (principal); G93.41 Metabolic encephalopathy; G93.5 Compression of brain; L12.0 Bullous pemphigoid; E78.2 Mixed hyperlipidemia; I10 Essential (primary) hypertension; L89.156 Pressure-induced deep tissue damage of sacral region; E11.9 Type 2 diabetes mellitus without complications; Z74.01 Bed confinement status; Z87.440 Personal history of urinary (tract) infections; Z79.4 Long term (current) use of insulin; Z79.82 Long term (current) use of aspirin; Z79.84 Long term (current) use of oral hypoglycemic drugs; Z79.631 Long term (current) use of antimetabolite agent; Z79.899 Other long term (current) drug therapy
CPT/HCPCS: 36415; 70450; 70496; 70498; 71045; 80048; 81001; 82550; 82947; 83605; 84443; 84484; 85025; 85027; 85610; 85730; 87040; 87086; 93005; 99285; J0692; J0696; J1650; J2405; Q9967

== ENCOUNTER → 2024-04-22 22:10 | Outpatient (BNV) | payer OTHER, SELFPAY | PROVIDERS: Admitting Provider Student in an Organized Health Care Education/Training Program; Emergency Provider Emergency Medicine; PCP Family Medicine Geriatric Medicine; Visit Provider Internal Medicine Cardiovascular Disease | DX: I45.81 Long QT syndrome (principal) | CPT/HCPCS: 93010 ==

== ENCOUNTER → 2024-04-23 01:09 | Outpatient (BNV) | payer OTHER, SELFPAY | PROVIDERS: Admitting Provider Student in an Organized Health Care Education/Training Program; Emergency Provider Emergency Medicine; PCP Family Medicine Geriatric Medicine; Visit Provider Student in an Organized Health Care Education/Training Program | DX: G93.41 Metabolic encephalopathy (principal) | CPT/HCPCS: 99223; 99239; 99499 ==

== ENCOUNTER 2024-05-27 22:07 | Inpatient (IN) | payer OTHER, MEDICARE, SELFPAY ==
--- NOTE | 2024-05-27 | ECG_ITS ---
Test Reason : TACHYCARDIA Blood Pressure : / mmHG Vent. Rate : 135 BPM Atrial Rate : 135 BPM P-R Int : 184 ms QRS Dur : 094 ms QT Int : 242 ms P-R-T Axes : 110 154 -42 degrees QTc Int : 363 ms Suspect limb lead reversal, interpretation assumes no reversal Sinus tachycardia Lateral infarct , age undetermined Abnormal ECG When compared with ECG of 22-APR-2024 22:36, Vent. rate has increased BY 48 BPM QRS duration has decreased Lateral infarct is now Present ST now depressed in Anterior leads T wave inversion now evident in Anterolateral leads Referred By: Tom Mane Electronically Signed By:QUINTIN FAULKNER MD
--- NOTE | ~2024-05-27 | XR_ITS ---
EXAMINATION: XR CHEST CLINICAL INFORMATION: Nasogastric tube placement. COMPARISON: 12/28/2023 at 7:34 AM TECHNIQUE: Frontal view of the chest was obtained. FINDINGS: Central venous access catheter with tip projecting over the proximal SVC. Enteric catheter with tip in the stomach. Low lung volumes with left basilar airspace disease. XR/XR chest 1V IMPRESSION: Enteric catheter terminates in the stomach.
--- NOTE | ~2024-05-27 | CT_ITS ---
EXAMINATION: CT head/brain wo IV con CLINICAL INFORMATION: Reason for Exam altered mental status COMPARISON: CT angiogram of head and neck 04/22/2024, CT head 04/22/2024 TECHNIQUE: Contiguous axial imaging was performed from the skull base to vertex without intravenous contrast. Sagittal and coronal reformatted images were obtained. This CT examination was performed using dose optimization techniques as appropriate, variously including the following: * Automated exposure control * Adjustment of mA and/or kV according to patient size (this includes techniques or standardized protocols for targeted exams where dose is matched to indication/reason for exam; i.e. extremities or head) Use of iterative reconstruction technique DLP: 689 mGy-cm FINDINGS: There is no evidence of acute intracranial hemorrhage. No mass-effect or ventricular shift is noted. No acute, territorial loss of marr-white differentiation. Generalized cerebral volume loss with associated ventricular and sulcal prominence.Periventricular and subcortical white matter hypodensity is nonspecific but likely represents chronic microvascular ischemic change. Intracranial atherosclerotic calcification is noted. No depressed calvarial fracture. Trace mucosal thickening with aerated debris in the sphenoid sinuses. Soft tissue in the left external auditory canal, likely cerumen. The mastoid air cells are clear. CT/CT head/brain wo IV con IMPRESSION: No acute intracranial hemorrhage or territorial loss of marr-white differentiation.
--- NOTE | ~2024-05-27 | CT_ITS ---
EXAMINATION: CT ABDOMEN AND PELVIS WITHOUT CONTRAST CLINICAL INFORMATION: Hematuria. Abdominal pain status post Nunez placement. COMPARISON: 02/25/2024 TECHNIQUE: Multidetector volumetric imaging was performed from the superior aspect of the liver through the pubic symphysis. Sagittal and coronal reformatted images were obtained on the technologist's workstation. This CT examination was performed using dose optimization techniques as appropriate, variously including the following: *Automated exposure control *Adjustment of mA and/or kV according to patient size (this includes techniques or standardized protocols for targeted exams where dose is matched to indication/reason for exam; i.e. extremities or head) *Use of iterative reconstruction technique DLP: 842 mGy-cm FINDINGS: LUNG BASES: Minimal dependent atelectasis. LIVER, GALLBLADDER, AND BILIARY TREE: The liver is normal in size, shape, and attenuation. No focal hepatic lesion or biliary ductal dilatation is present. The gallbladder is unremarkable with no evidence of radiopaque gallstones, gallbladder wall thickening, or obvious pericholecystic inflammatory changes. PANCREAS: Unremarkable. SPLEEN: Unremarkable. ADRENAL GLANDS: Unremarkable. KIDNEYS AND URETERS: The kidneys are normal in size, shape, and attenuation. No calculi seen. No perinephric stranding. Mild bilateral hydroureteronephrosis, right side greater than left. BLADDER: Bladder wall is thickened and trabeculated. The bladder is decompressed and contains a Nunez catheter. Small foci of radiodense material are present dependently within the bladder and may represent small bladder calculi. Numerous small gas containing bladder diverticula are noted. GASTROINTESTINAL TRACT: Stomach, small bowel, and colon are normal in caliber. The colon is decompressed, though there is mild colonic wall thickening, most notably in the sigmoid colon and rectum. No surrounding fat stranding. Appendix is normal. No intraperitoneal free fluid or free air. ABDOMINAL WALL: Small fat-containing left inguinal hernia. LYMPH NODES: Normal. VASCULAR: Atherosclerotic calcifications are present in the abdominal aorta and iliac arteries. No aneurysmal dilatation. PELVIC VISCERA: Small dystrophic calcifications are present in the prostate gland. Prostate gland is normal in size. OSSEOUS STRUCTURES: Bones are osteopenic. Multilevel degenerative spondylosis in the lumbar spine. Chronic anterior superior endplate wedge compression fracture at the L1 vertebral body. Ankylosis of L5-S1. Mild osteoarthritis in the hips. Marked fatty atrophy of the muscles of the pelvis and upper thighs. CT/CT abdomen pelvis wo IV con IMPRESSION: 1. Mild bilateral hydroureteronephrosis, right side greater than left. No obstructing renal or ureteral calculi are identified. 2. Thickened, trabeculated bladder wall with numerous small bladder diverticula, most consistent with chronic bladder obstruction. Small foci of radiodense material dependently within the bladder may represent small bladder calculi. Gas within the bladder is presumably related to the presence of a Nunez catheter, though superimposed cystitis is possible. 3. Mild colonic wall thickening, most notably in the sigmoid colon and rectum. This is most likely due to underdistention, though a mild proctocolitis is also possible if the patient is symptomatic. Fleischner guidelines were followed.
--- NOTE | ~2024-05-27 | XR_ITS ---
EXAMINATION: XR CHEST CLINICAL INFORMATION: Central line placement. COMPARISON: 04/22/2024 TECHNIQUE: Frontal view of the chest was obtained. FINDINGS: Left internal jugular central venous catheter with tip projecting over the proximal SVC. Low lung volumes. Left basilar airspace disease possibly atelectasis. No pleural effusion. No sizable pneumothorax. Cardiac silhouette is unchanged. XR/XR chest 1V IMPRESSION: Left basilar airspace disease possible atelectasis.
[2024-05-27 22:18] VITALS: BP 171/80; PULSE 125; RESP 18; TEMP 36.9; O2SAT 97; BMI 23.3
--- NOTE | 2024-05-27 23:01 | ED_ITS ---
HPI - Male Genitourinary General Chief complaint: Urogenital-Male Stated complaint: HEMATURIA Time Seen by Provider: 05/27/24 22:22 Source: patient Mode of arrival: ambulatory Limitations: no limitations History of Present Illness ED Provider: mynor BUTCHER Narrative: Patient's history of multiple sclerosis nonambulatory with indwelling Nunez catheter for last 5 years yesterday Nunez catheter was placed today at 03:00 o'clock noticed perez hematuria no urine output since then no history of hematuria in the past patient denied any fever or chills no nausea no vomiting Related Data Home Medications ?Medication ?Instructions ?Recorded ?Confirmed gabapentin 300 mg capsule 300 mg PO BID@0630,1200 10/09/20 04/23/24 metformin 500 mg tablet 500 mg PO BIDWM 10/09/20 04/23/24 tramadol 50 mg tablet 50 mg PO BEDTIME PRN moderate to 10/09/20 04/23/24 severe pain acetaminophen 325 mg tablet 650 mg PO Q4H PRN pain or fever 03/13/21 04/23/24 rosuvastatin 10 mg tablet 10 mg PO DAILY 03/13/21 04/23/24 guaifenesin 100 mg/5 mL oral 200 mg PO Q4H PRN Cough 05/19/21 04/23/24 liquid (Diabetic Tussin EX) prednisone 2.5 mg tablet 2.5 mg PO DAILY 05/19/21 04/23/24 amlodipine 10 mg tablet 10 mg PO DAILY 11/16/23 04/23/24 bismuth subsalicylate 262 mg/15 mL 524 mg PO Q8H PRN UPSET 11/16/23 04/23/24 oral suspension (Pepto-Bismol) STOMACH/NAUSEA ceramides 1,3,6-II (CeraVe topical 1 appl topical BID Dry Skin 11/16/23 04/23/24 cream) docusate sodium 100 mg capsule 100 mg PO BID 11/16/23 04/23/24 (Colace) famotidine 20 mg tablet 20 mg PO BID 11/16/23 04/23/24 folic acid 1 mg tablet 1 mg PO SUTUWETHFRSA 11/16/23 04/23/24 gabapentin 800 mg tablet 800 mg PO BEDTIME 11/16/23 04/23/24 insulin glargine-yfgn 100 unit/mL 5 unit subcut BEDTIME 11/16/23 04/23/24 subcutaneous solution lactulose 10 gram/15 mL oral 30 ml PO DAILY 11/16/23 04/23/24 solution (Enulose) losartan 25 mg tablet 25 mg PO BEDTIME 11/16/23 04/23/24 melatonin 5 mg tablet 5 mg PO BEDTIME PRN Insomnia 11/16/23 04/23/24 polyethylene glycol 3350 17 17 g PO QAM 11/16/23 04/23/24 gram/dose oral powder (Miralax) sennosides 8.6 mg tablet (senna) 17.2 mg PO BEDTIME 11/16/23 04/23/24 zolpidem 6.25 mg tablet,extended 6.25 mg PO BEDTIME 11/16/23 04/23/24 release,multiphase methotrexate sodium 2.5 mg tablet 15 mg PO MO 02/25/24 04/23/24 bisacodyl 5 mg tablet 5 mg PO DAILY PRN Constipation 03/31/24 04/23/24 ascorbic acid (vitamin C) 500 mg 500 mg PO DAILY 04/23/24 04/23/24 tablet aspirin 81 mg tablet,delayed 81 mg PO DAILY 04/23/24 04/23/24 release bisacodyl 10 mg rectal suppository 10 mg NJ DAILY PRN Constipation 04/23/24 04/23/24 bisacodyl 10 mg rectal suppository 10 mg NJ Q3D 04/23/24 04/23/24 guaifenesin 600 mg tablet, 600 mg PO Q12H PRN Cold Symptoms 04/23/24 04/23/24 extended release 12 hr (Mucinex) sodium phosphates 19 gram-7 118 ml NJ DAILY PRN Constipation 04/23/24 04/23/24 gram/118 mL enema (Fleet Enema) zinc 50 mg tablet 200 mg PO DAILY 04/23/24 04/23/24 Previous Rx's ?Medication ?Instructions ?Recorded baclofen 20 mg tablet 20 mg PO TID #0 tabs 10/12/20 cefuroxime axetil 500 mg tablet 500 mg PO BID #6 tabs 04/24/24 Allergies Allergy/AdvReac Type Severity Reaction Status Date / Time Benzodiazepines Allergy Unknown UNKNOWN Verified 05/27/24 22:23 [BENZODIAZEPINES] dalfampridine [From AMPYRA] Allergy Unknown UNKNOWN Verified 05/27/24 22:23 duloxetine [From CYMBALTA] Allergy Unknown UNKNOWN Verified 05/27/24 22:23 ezetimibe [From ZETIA] Allergy Unknown UNKNOWN Verified 05/27/24 22:23 niacin [NIACIN] Allergy Unknown UNKNOWN Verified 05/27/24 22:23 pravastatin [PRAVASTATIN] Allergy Unknown UNKNOWN Verified 05/27/24 22:23 [id number] Reductase Allergy Unknown UNKNOWN Verified 05/27/24 22:23 Inhibitor [[id number] REDUCTASE INHIBITOR] lorazepam [From ATIVAN] AdvReac Severe EXCESSIVE Verified 05/27/24 22:23 SEDATION doxycycline [DOXYCYCLINE] AdvReac Mild esophogeal Verified 05/27/24 22:23 iritation methylprednisolone AdvReac Mild heartburn Verified 05/27/24 22:23 [From SOLU-MEDROL] ertapenem [From INVANZ] AdvReac Unknown possible Verified 04/11/21 09:47 cause of bullous pemphigoid Review of Systems 2 Review of Systems: Yes all other systems are reviewed and are negative PMFSH Past Medical History Medical History EDWARD (acute kidney injury) UTI (urinary tract infection) due to urinary indwelling Nunez catheter Bullous pemphigoid Steroid dependence Decubitus ulcer of coccygeal region, stage 2 Acute hypotension Sepsis Aspiration pneumonitis Recurrent UTI (urinary tract infection) Hypotonic neurogenic bladder Lytic lesion of bone on x-ray Wound of foot Anemia Septic shock Shoulder pain Constipation Hematuria Multiple sclerosis Depression Diabetes mellitus type 2 in obese Chronic pain syndrome BPH (benign prostatic hyperplasia) Dehydration Chronic renal failure Urinary tract infection Surgical History Hx of removal of cyst Family History Family History Family/Other Heart attack Father Diabetes Social History Social History Household Members: None and Other Household Members Other:: lives at [facility] in [place] Housing: Senior Living Housing Other:: [facility] Do you presently have visiting nurse or other home services: Yes Unable to assess alcohol history related to: Unable to respond Alcohol intake: never Comment: pt sedated on vent. Patient Tobacco Use Status: Former Tobacco user Cigarette Packs Per Day: 1 Advance Directives: Yes Advance Directives on File: Yes Advance Directives Date on File: 04/22/24 Do you have a plan to hurt others: No Plan service: Yes Current occupational status: retired Physical Exam 2 Vital Signs: Vital Signs: Last Vital Signs Temp 99.1 F 05/28/24 06:02 Pulse 108 H 05/28/24 06:44 Resp 16 05/28/24 06:44 BP 96/50 L 05/28/24 06:44 Pulse Ox 99 05/28/24 06:44 O2 Del Method Room Air 05/28/24 06:44 BMI result Body Mass Index 23.3 Appearance: Alert. Oriented X3. No acute distress. Eyes: No pallor or icterus ENT: Pharynx normal. Oral Mucosa moist Neck: Normal inspection. Neck supple. CVS: Sinus tachycardic no murmur rub or gallop. Pulses normal. Respiratory: No respiratory distress. Equal air entry bilateral, no wheezing/rales/rhonchi Abdomen: Soft and nontender. Bowel sounds are present, no mass palpable, no CVA tenderness Skin: Skin warm and dry. Normal skin color. Normal skin turgor. Extremities: No lower extremity edema. No calf tenderness Neuro: Oriented X 3. Minimal movements of lower extremities Medications Administered Discontinued Medications Generic Name Dose Route Start Last Admin Trade Name Freq PRN Reason Stop Dose Admin Acetaminophen 650 mg 05/28/24 04:06 05/28/24 04:13 Acetaminophen Oral Liquid 650 Mg/20.3 Ml Solution PO 05/28/24 04:07 650 mg ONCE ONE Administration Hydrocortisone Sodium Succinate 100 mg 05/28/24 07:02 05/28/24 07:06 Hydrocortisone Sod Succ/Pf 100 Mg Vial IVPUSH 05/28/24 07:03 100 mg ONCE ONE Administration Cefepime HCl 2 gm/ Sodium 50 mls @ 100 mls/hr 05/28/24 01:12 05/28/24 01:58 Chloride IV 05/28/24 01:41 Infused ONCE ONE Infusion Sodium Chloride 1,000 mls @ 999 mls/hr 05/28/24 03:48 05/28/24 04:50 Ns IV 05/28/24 04:48 Infused .Q1H1M ONE Infusion Piperacillin Sod/Tazobactam 50 mls @ 100 mls/hr 05/28/24 04:31 05/28/24 05:11 Sod 3.375 gm/ Sodium Chloride IV 05/28/24 05:00 Infused ONCE ONE Infusion Sodium Chloride 1,000 mls @ 999 mls/hr 05/28/24 04:31 05/28/24 05:38 Ns IV 05/28/24 05:31 Infused .Q1H1M ONE Infusion Sodium Chloride 1,000 mls @ 999 mls/hr 05/28/24 05:26 05/28/24 06:02 Ns IV 05/28/24 06:26 999 mls/hr .Q1H1M ONE Administration Ketorolac Tromethamine 30 mg 05/28/24 05:08 05/28/24 06:01 Ketorolac Tromethamine 30 Mg/Ml Vial IVPUSH 05/28/24 05:09 30 mg ONCE ONE Administration Lidocaine HCl 10 ml 05/28/24 00:17 05/28/24 00:20 Lidocaine Hcl 2 % Urojet 10 Ml Jel.Pf.Luis TOPICAL 05/28/24 00:18 10 ml ONCE ONE Administration Lidocaine HCl 10 ml 05/28/24 01:30 05/28/24 01:34 Lidocaine Hcl 2 % Urojet 10 Ml Jel.Pf.Luis TOPICAL 05/28/24 01:31 10 ml ONCE ONE Administration Ondansetron HCl 4 mg 05/28/24 01:10 05/28/24 01:19 Ondansetron Hcl 4 Mg/2 Ml Vial IVPUSH 05/28/24 01:11 4 mg ONCE ONE Administration Medical Decision Making Medical Decision Making MDM Narrative: Patient with perez hematuria retaining urine bloody irrigation was done blood clots were removed unable to put three-way catheter dried coude catheter 20 Italian which was placed manual irrigation was done few more clots removed still having hematuria the ER department does not have guidewire to put three-way catheter this time advised nursing to do manual bladder irrigation every 2-3 hours Guidewire was provided and attempted to pass through the prostate unable to do that with coude Nunez catheter was placed with manual irrigation patient noted to be tachycardic and febrile with leukocytosis and UTI with elevated lactic acid meets the criteria for sepsis patient received IV fluids and IV antibiotics patient had transient hypotension responded to IV fluids CT scan of the abdomen showed cystitis findings enlarged prostate 7 am : Patient's blood pressure again dropped to 80s urine output only about 100 cc patient is on chronic prednisone treatment 2.5 mg daily for bullous pemphigoid will give him stress dose of Solu-Cortef plan to admit to ICU for sepsis left a message with emergency contact Alyx Kelly at [phone]. [address] central line vasopressors admit to ICU Dr. Bartholomew aware 720am case discussed with colored liquid plastic applier will admit patient to ICU Differential Diagnosis Differential Diagnoses: The differential diagnosis associated with the presentation includes Admission/Observation Consideration of admission/observation: Escalation of care including admission/observation considered Consult Healthcare Provider Management of the patient was discussed with: Hospitalist Lab Data MDM Lab Attestation statement: I reviewed the patient's lab results. 05/28/24 04:09 05/27/24 23:51 Labs: Lab Results 05/27/24 05/28/24 05/28/24 Range/Units 23:51 01:25 03:39 WBC 14.2 H (4.8-10.8) X10*3/uL RBC 3.78 L (4.60-5.80) X10*6/uL Hgb 11.5 L (14.0-18.0) g/dl Hct 34.7 L (42.0-52.0) % MCV 91.8 (80.0-98.0) fL MCH 30.4 (27.0-33.0) pg MCHC 33.1 (31.0-36.0) g/dl RDW 17.2 H (11.0-16.0) % Plt Count 276 D (160-400) X10*3/uL MPV 9.3 L (9.4-12.4) fL Immature Gran % (Auto) 0.4 (0.0-0.4) % Neut % (Auto) 87.0 H (45-73) % Lymph % (Auto) 5.6 L (20-40) % [place] % (Auto) 5.4 (2-11) % Eos % (Auto) 1.3 (0-4) % Baso % (Auto) 0.3 (0-2) % Lymph # (Auto) 0.8 L (1.2-4.9) X10*3/uL [place] # (Auto) 0.8 (0.1-1.2) X10*3/uL Eos # (Auto) 0.2 (0.0-0.4) X10*3/uL Baso # (Auto) 0.0 (0.0-0.2) X10*3/uL Abs Immat Gran (auto) 0.06 H (0.00-0.03) X10*3/uL Absolute Neuts (auto) 12.3 H (2.0-8.3) x10*3/uL Absolute Nucleated RBC 0.000 (0.0-0.012) X10*3/uL Nucleated RBC % (auto) 0.0 (0.0-0.2) /100WBC Neutrophils % (Manual) (45-73) % Band Neutrophils % (3-5) % Lymphocytes % (Manual) (20-40) % Eosinophils % (Manual) (0-4) % Metamyelocytes % % Abs Neuts (Manual) (2.0-8.3) X10*3/uL Lymphocytes # (Manual) (1.2-4.9) X10*3/uL Eosinophils # (Manual) (0.0-0.4) X10*3/uL Metamyelocytes # X10*3/uL Toxic Vacuolation Platelet Estimate (NORMAL) Giant Platelets Plt Morphology Comment RBC Morphology Macrocytosis /OIF Schistocytes /OIF PT 10.8 L (11.1-13.3) SEC INR 0.9 (0.9-1.1) Sodium 136 (135-145) mmol/L Potassium 4.2 (3.3-5.1) mmol/L Chloride 104 (96-108) mmol/L Carbon Dioxide 22 (22-29) mmol/L Anion Gap 14 (12-20) BUN 34 H (9-16) mg/dL Creatinine 1.14 (0.5-1.4) mg/dL Estim Creat Clear Calc 61.3 Estimated GFR > 60 POC Glucose (60-115) mg/dL Random Glucose 198 H (60-115) mg/dL Lactic Acid 4.6 H* (0.5-2.0) mmol/L Lactic Acid F/U @ 2Hr (0.5-2.0) mmol/L Calcium 9.3 (8.4-10.2) mg/dL Total Bilirubin 0.5 (0.0-1.0) mg/dL AST 13 (5-37) U/L ALT 9 (0-40) U/L Alkaline Phosphatase 115 (39-117) U/L Total Protein 7.4 (6.5-8.0) g/dL Albumin 3.7 (3.5-5.0) g/dL C. difficile Tox B Gene NEGATIVE (Negative) Blood Type Antibody Screen 05/28/24 05/28/24 Range/Units 04:09 07:04 WBC 15.3 H (4.8-10.8) X10*3/uL RBC 3.46 L (4.60-5.80) X10*6/uL Hgb 10.7 L (14.0-18.0) g/dl Hct 32.2 L (42.0-52.0) % MCV 93.1 (80.0-98.0) fL MCH 30.9 (27.0-33.0) pg MCHC 33.2 (31.0-36.0) g/dl RDW 17.3 H (11.0-16.0) % Plt Count 248 (160-400) X10*3/uL MPV 9.6 (9.4-12.4) fL Immature Gran % (Auto) Cancelled (0.0-0.4) % Neut % (Auto) Cancelled (45-73) % Lymph % (Auto) Cancelled (20-40) % [place] % (Auto) Cancelled (2-11) % Eos % (Auto) Cancelled (0-4) % Baso % (Auto) Cancelled (0-2) % Lymph # (Auto) Cancelled (1.2-4.9) X10*3/uL [place] # (Auto) Cancelled (0.1-1.2) X10*3/uL Eos # (Auto) Cancelled (0.0-0.4) X10*3/uL Baso # (Auto) Cancelled (0.0-0.2) X10*3/uL Abs Immat Gran (auto) Cancelled (0.00-0.03) X10*3/uL Absolute Neuts (auto) Cancelled (2.0-8.3) x10*3/uL Absolute Nucleated RBC 0.030 H (0.0-0.012) X10*3/uL Nucleated RBC % (auto) 0.2 (0.0-0.2) /100WBC Neutrophils % (Manual) 65 (45-73) % Band Neutrophils % 27 H (3-5) % Lymphocytes % (Manual) 5 L (20-40) % Eosinophils % (Manual) 2 (0-4) % Metamyelocytes % 1 % Abs Neuts (Manual) 14.1 H (2.0-8.3) X10*3/uL Lymphocytes # (Manual) 0.8 L (1.2-4.9) X10*3/uL Eosinophils # (Manual) 0.3 (0.0-0.4) X10*3/uL Metamyelocytes # 0.2 X10*3/uL Toxic Vacuolation PRESENT Platelet Estimate NORMAL (NORMAL) Giant Platelets PRESENT Plt Morphology Comment NOTED RBC Morphology NOTED Macrocytosis 1+ (5-14) /OIF Schistocytes 1+ (0-2) /OIF PT (11.1-13.3) SEC INR (0.9-1.1) Sodium (135-145) mmol/L Potassium (3.3-5.1) mmol/L Chloride (96-108) mmol/L Carbon Dioxide (22-29) mmol/L Anion Gap (12-20) BUN (9-16) mg/dL Creatinine (0.5-1.4) mg/dL Estim Creat Clear Calc Estimated GFR POC Glucose 128 H (60-115) mg/dL Random Glucose (60-115) mg/dL Lactic Acid (0.5-2.0) mmol/L Lactic Acid F/U @ 2Hr 5.7 H* (0.5-2.0) mmol/L Calcium (8.4-10.2) mg/dL Total Bilirubin (0.0-1.0) mg/dL AST (5-37) U/L ALT (0-40) U/L Alkaline Phosphatase (39-117) U/L Total Protein (6.5-8.0) g/dL Albumin (3.5-5.0) g/dL C. difficile Tox B Gene (Negative) Blood Type B Positive Antibody Screen NEGATIVE Radiology Impression Discussion of test interpretation with radiology: I have reviewed the radiologist's reading. Radiologist Impression: [address] [address] [address] Scan Report Signed Patient: Omero Ardon MR#: [id number] : 1945 Acct:[id number] Age/Sex: 79 / M ADM Date: 05/28/24 Loc: HO.ED Attending Dr: Ordering Physician: Tom Mane MD Date of Service: 05/28/24 Procedure(s): CT abdomen pelvis wo IV con Accession Number(s): [id number] cc: Physician,Unknown ; Tom Mane MD~ EXAMINATION: CT ABDOMEN AND PELVIS WITHOUT CONTRAST CLINICAL INFORMATION: Hematuria. Abdominal pain status post Nunez placement. COMPARISON: 02/25/2024 TECHNIQUE: Multidetector volumetric imaging was performed from the superior aspect of the liver through the pubic symphysis. Sagittal and coronal reformatted images were obtained on the technologist's workstation. This CT examination was performed using dose optimization techniques as appropriate, variously including the following: *Automated exposure control *Adjustment of mA and/or kV according to patient size (this includes techniques or standardized protocols for targeted exams where dose is matched to indication/reason for exam; i.e. extremities or head) *Use of iterative reconstruction technique DLP: 842 mGy-cm FINDINGS: LUNG BASES: Minimal dependent atelectasis. LIVER, GALLBLADDER, AND BILIARY TREE: The liver is normal in size, shape, and attenuation. No focal hepatic lesion or biliary ductal dilatation is present. The gallbladder is unremarkable with no evidence of radiopaque gallstones, gallbladder wall thickening, or obvious pericholecystic inflammatory changes. PANCREAS: Unremarkable. SPLEEN: Unremarkable. ADRENAL GLANDS: Unremarkable. KIDNEYS AND URETERS: The kidneys are normal in size, shape, and attenuation. No calculi seen. No perinephric stranding. Mild bilateral hydroureteronephrosis, right side greater than left. BLADDER: Bladder wall is thickened and trabeculated. The bladder is decompressed and contains a Nunez catheter. Small foci of radiodense material are present dependently within the bladder and may represent small bladder calculi. Numerous small gas containing bladder diverticula are noted. GASTROINTESTINAL TRACT: Stomach, small bowel, and colon are normal in caliber. The colon is decompressed, though there is mild colonic wall thickening, most notably in the sigmoid colon and rectum. No surrounding fat stranding. Appendix is normal. No intraperitoneal free fluid or free air. ABDOMINAL WALL: Small fat-containing left inguinal hernia. LYMPH NODES: Normal. VASCULAR: Atherosclerotic calcifications are present in the abdominal aorta and iliac arteries. No aneurysmal dilatation. PELVIC VISCERA: Small dystrophic calcifications are present in the prostate gland. Prostate gland is normal in size. OSSEOUS STRUCTURES: Bones are osteopenic. Multilevel degenerative spondylosis in the lumbar spine. Chronic anterior superior endplate wedge compression fracture at the L1 vertebral body. Ankylosis of L5-S1. Mild osteoarthritis in the hips. Marked fatty atrophy of the muscles of the pelvis and upper thighs. CT/CT abdomen pelvis wo IV con IMPRESSION: 1. Mild bilateral hydroureteronephrosis, right side greater than left. No obstructing renal or ureteral calculi are identified. 2. Thickened, trabeculated bladder wall with numerous small bladder diverticula, most consistent with chronic bladder obstruction. Small foci of radiodense material dependently within the bladder may represent small bladder calculi. Gas within the bladder is presumably related to the presence of a Nunez catheter, though superimposed cystitis is possible. 3. Mild colonic wall thickening, most notably in the sigmoid colon and rectum. This is most likely due to underdistention, though a mild proctocolitis is also possible if the patient is symptomatic. Fleischner guidelines were followed. Procedures Catheter Insertion (Urinary) Date of insertion: 05/28/24 Time of insertion: 00:47 Reason for placing: Yes Reason for placing indwelling catheter: Other (Perez hematuria) Bladder scan/ultrasound used before catheterization: Yes Estimated amount of urine (mLs): 350 Topical anesthesia used: Yes Catheter type/location: 2-way Urethral Size (Italian): 20 Catheter balloon size (mL): 30 Catheter balloon amount: 30 Critical Care Time Critical Care Time Critical Care Time: Yes Total Critical Care Time: 65 Attestation: The patient was critically ill with a high probability of imminent or life threatening deterioration. I spent greater than 70???minutes of discontinuous time evaluating the patient,delivering critical care at the bedside, discussing and evaluating pertinent data with consultants. Critical care time does not include time spent performing separately billable procedures or teaching. Total time spent performing critical care was 65???minutes. Discharge Plan Discharge Clinical Impression: Severe sepsis, Obstructive uropathy, Acute UTI, Perez hematuria Patient Disposition: Admitted As Inpatient Print Language: Czech
[2024-05-27 23:56] LABS: MANUAL DIFF FLAG NO
[2024-05-28] VITALS (68 sets, daily range): BP systolic 74–139; BP diastolic 41–67; PULSE 76–163; RESP 10–24; TEMP 36.2–39.5; O2SAT 94–99; BMI 22.3; BMI 22.4
[2024-05-28] LABS: Basophils Percent Auto 0.3 % (0-2); Eosinophils Absolute Auto 0.2 X10*3/uL (0.0-0.4); Eosinophils Percent Auto 1.3 % (0-4); Hematocrit 34.7 % (42.0-52.0); Hemoglobin 11.5 g/dl (14.0-18.0); Imm Gran Abs Auto 0.06 X10*3/uL (0.00-0.03); Imm Gran Pct Auto 0.4 % (0.0-0.4); Lymphocytes Absolute Auto 0.8 X10*3/uL (1.2-4.9); Lymphocytes Percent Auto 5.6 % (20-40); Mean Corpuscular HGB Conc 33.1 g/dl (31.0-36.0); Mean Corpuscular Hemoglobin 30.4 pg (27.0-33.0); Mean Corpuscular Volume 91.8 fL (80.0-98.0); Mean Platelet Volume 9.3 fL (9.4-12.4); Monocytes Absolute Auto 0.8 X10*3/uL (0.1-1.2); Monocytes Percent Auto 5.4 % (2-11); Neutrophils Absolute Auto 12.3 x10*3/uL (2.0-8.3); Platelet Count 276 X10*3/uL (160-400); Red Blood Count 3.78 X10*6/uL (4.60-5.80); Red Cell Distribution Width 17.2 % (11.0-16.0); White Blood Count 14.2 X10*3/uL (4.8-10.8)
[2024-05-28 00:07] LABS: INTERNATIONAL NORM RATIO 0.9 (0.9-1.1); Prothrombin Time 10.8 SEC (11.1-13.3)
[2024-05-28 00:15] LABS: Alanine Aminotransferase 9 U/L (0-40); Albumin Level 3.7 g/dL (3.5-5.0); Alkaline Phosphatase 115 U/L (39-117); Anion Gap 14 (12-20); Aspartate Amino Transferase 13 U/L (5-37); Bilirubin Total 0.5 mg/dL (0.0-1.0); Blood Urea Nitrogen 34 mg/dL (9-16); Calcium 9.3 mg/dL (8.4-10.2); Carbon Dioxide 22 mmol/L (22-29); Chloride 104 mmol/L (96-108); Creatinine Clr Calc Pharmacy 61.3; Estimated Glomerular Filt Rate > 60; Glucose Random 198 mg/dL (60-115); Potassium 4.2 mmol/L (3.3-5.1); Sodium 136 mmol/L (135-145); Total Protein 7.4 g/dL (6.5-8.0)
[2024-05-28] MEDS: Lidocaine HCl 2 % Urojet 10 ML JEL.PF.APP TOPICAL ×2 (00:20→01:34)
--- NOTE | 2024-05-28 00:57 | MHC.EDTECH ---
700 cc bloody urine output
--- NOTE | 2024-05-28 01:02 | PC.NURSE ---
Provider unable to place 3way carty at this time. 20 Fr single lumen carty placed with plan for manual irrigation every 2hrs per Dr. Mane verbal order.
[2024-05-28] MEDS: ondansetron HCL 4 MG/2 ML VIAL IVPUSH (01:19)
[2024-05-28] MEDS: cefEPime HCl 2 GM in 0.9 % Sodium Chloride 50 ML IV (01:28)
[2024-05-28 01:56] LABS: Lactic Acid 4.6 mmol/L (0.5-2.0)
--- NOTE | 2024-05-28 02:45 | PC.NURSE ---
2nd attempt made to insert 3way carty per Dr. Mane with guidewire. Attpempt unsuccessful at this time. Pt with blood and clots coming out around coude catheter. Pt also noted to have frequent loose stools.
--- NOTE | 2024-05-28 03:25 | PC.NURSE ---
Pt with swelling noted to left flank. Pt also noted to be warm to touch. Temporal temp 103.1.
[2024-05-28 03:34] LABS: Reflex Lactate? Lactic Acid Added
[2024-05-28] MEDS: 0.9 % Sodium Chloride 1,000 ML 999 ML IV ×3 (03:49→06:02)
--- NOTE | 2024-05-28 03:49 | ECG_ITS ---
Test Reason : RAPID HEART RATE Blood Pressure : / mmHG Vent. Rate : 155 BPM Atrial Rate : 155 BPM P-R Int : 114 ms QRS Dur : 092 ms QT Int : 276 ms P-R-T Axes : 020 058 -30 degrees QTc Int : [address] & T wave abnormality, consider inferolateral ischemia Abnormal ECG When compared with ECG of 27-MAY-2024 23:48, QRS axis Shifted left Criteria for Lateral infarct are no longer Present ST now depressed in Lateral leads Nonspecific T wave abnormality has replaced inverted T waves in Anterior leads Referred By: Tom Mane Electronically Signed By:QUINTIN FAULKNER MD
[2024-05-28] MEDS: Acetaminophen Oral Liquid 650 MG/20.3 ML SOLUTION PO (04:13)
--- NOTE | 2024-05-28 04:15 | PC.NURSE ---
BP improved. pt to CT at this time.
[2024-05-28 04:17] LABS: Hematocrit 32.2 % (42.0-52.0); Hemoglobin 10.7 g/dl (14.0-18.0); Mean Corpuscular HGB Conc 33.2 g/dl (31.0-36.0); Mean Corpuscular Hemoglobin 30.9 pg (27.0-33.0); Mean Corpuscular Volume 93.1 fL (80.0-98.0); Mean Platelet Volume 9.6 fL (9.4-12.4); NRBC Pct Auto 0.2 /100WBC (0.0-0.2); Platelet Count 248 X10*3/uL (160-400); Red Blood Count 3.46 X10*6/uL (4.60-5.80); Red Cell Distribution Width 17.3 % (11.0-16.0); White Blood Count 15.3 X10*3/uL (4.8-10.8)
--- NOTE | 2024-05-28 04:19 | PM.IMHP ---
History of Present Illness Date of Service: 05/28/24 Attending physician on admission: Deacon Echeverria Chief Complaint: Vomiting HPI provider by patient's father. L [facility] Medical History EDWARD (acute kidney injury) UTI (urinary tract infection) due to urinary indwelling Nunez catheter Bullous pemphigoid Steroid dependence Decubitus ulcer of coccygeal region, stage 2 Acute hypotension Sepsis Aspiration pneumonitis Recurrent UTI (urinary tract infection) Hypotonic neurogenic bladder Lytic lesion of bone on x-ray Wound of foot Anemia Septic shock Shoulder pain Constipation Hematuria Multiple sclerosis Depression Diabetes mellitus type 2 in obese Chronic pain syndrome BPH (benign prostatic hyperplasia) Dehydration Chronic renal failure Urinary tract infection Family History Family/Other Heart attack Father Diabetes Surgical History Hx of removal of cyst Social History Household Members: None and Other Household Members Other:: lives at [facility] in [place] Housing: Half-Way Housing Other:: [facility] Do you presently have visiting nurse or other home services: Yes Unable to assess alcohol history related to: Unable to respond Alcohol intake: never Comment: pt sedated on vent. Patient Tobacco Use Status: Former Tobacco user Cigarette Packs Per Day: 1 Advance Directives: Yes Advance Directives on File: Yes Advance Directives Date on File: 04/22/24 Do you have a plan to hurt others: No Plan service: Yes Current occupational status: retired Meds Allergies Allergy/AdvReac Type Severity Reaction Status Date / Time Benzodiazepines Allergy Unknown UNKNOWN Verified 05/27/24 22:23 [BENZODIAZEPINES] dalfampridine [From AMPYRA] Allergy Unknown UNKNOWN Verified 05/27/24 22:23 duloxetine [From CYMBALTA] Allergy Unknown UNKNOWN Verified 05/27/24 22:23 ezetimibe [From ZETIA] Allergy Unknown UNKNOWN Verified 05/27/24 22:23 niacin [NIACIN] Allergy Unknown UNKNOWN Verified 05/27/24 22:23 pravastatin [PRAVASTATIN] Allergy Unknown UNKNOWN Verified 05/27/24 22:23 Nolcelt-BMB-YiT Reductase Allergy Unknown UNKNOWN Verified 05/27/24 22:23 Inhibitor [[id number]-[id number] REDUCTASE INHIBITOR] lorazepam [From ATIVAN] AdvReac Severe EXCESSIVE Verified 05/27/24 22:23 SEDATION doxycycline [DOXYCYCLINE] AdvReac Mild esophogeal Verified 05/27/24 22:23 iritation methylprednisolone AdvReac Mild heartburn Verified 05/27/24 22:23 [From SOLU-MEDROL] ertapenem [From INVANZ] AdvReac Unknown possible Verified 04/11/21 09:47 cause of bullous pemphigoid Active Medications: Current Medications Sodium Chloride (Ns) 1,000 mls @ 999 mls/hr IV .Q1H1M ONE Stop: 05/28/24 04:48 Last Admin: 05/28/24 03:49 Dose: 999 mls/hr Home Medications ?Medication ?Instructions ?Recorded ?Confirmed ?Last Taken ?Type gabapentin 300 mg capsule 300 mg PO BID@0630,1200 10/09/20 04/23/24 Unknown History metformin 500 mg tablet 500 mg PO BIDWM 10/09/20 04/23/24 Unknown History tramadol 50 mg tablet 50 mg PO BEDTIME PRN moderate to 10/09/20 04/23/24 Unknown History severe pain acetaminophen 325 mg tablet 650 mg PO Q4H PRN pain or fever 03/13/21 04/23/24 Unknown History rosuvastatin 10 mg tablet 10 mg PO DAILY 03/13/21 04/23/24 Unknown History guaifenesin 100 mg/5 mL oral 200 mg PO Q4H PRN Cough 05/19/21 04/23/24 Unknown History liquid (Diabetic Tussin EX) prednisone 2.5 mg tablet 2.5 mg PO DAILY 05/19/21 04/23/24 Unknown History amlodipine 10 mg tablet 10 mg PO DAILY 11/16/23 04/23/24 Unknown History bismuth subsalicylate 262 mg/15 mL 524 mg PO Q8H PRN UPSET 11/16/23 04/23/24 Unknown History oral suspension (Pepto-Bismol) STOMACH/NAUSEA ceramides 1,3,6-II (CeraVe topical 1 appl topical BID Dry Skin 11/16/23 04/23/24 Unknown History cream) docusate sodium 100 mg capsule 100 mg PO BID 11/16/23 04/23/24 Unknown History (Colace) famotidine 20 mg tablet 20 mg PO BID 11/16/23 04/23/24 Unknown History folic acid 1 mg tablet 1 mg PO SUTUWETHFRSA 11/16/23 04/23/24 Unknown History gabapentin 800 mg tablet 800 mg PO BEDTIME 11/16/23 04/23/24 Unknown History insulin glargine-yfgn 100 unit/mL 5 unit subcut BEDTIME 11/16/23 04/23/24 Unknown History subcutaneous solution lactulose 10 gram/15 mL oral 30 ml PO DAILY 11/16/23 04/23/24 Unknown History solution (Enulose) losartan 25 mg tablet 25 mg PO BEDTIME 11/16/23 04/23/24 Unknown History melatonin 5 mg tablet 5 mg PO BEDTIME PRN Insomnia 11/16/23 04/23/24 Unknown History polyethylene glycol 3350 17 17 g PO QAM 11/16/23 04/23/24 Unknown History gram/dose oral powder (Miralax) sennosides 8.6 mg tablet (senna) 17.2 mg PO BEDTIME 11/16/23 04/23/24 Unknown History zolpidem 6.25 mg tablet,extended 6.25 mg PO BEDTIME 11/16/23 04/23/24 Unknown History release,multiphase methotrexate sodium 2.5 mg tablet 15 mg PO MO 02/25/24 04/23/24 Unknown History bisacodyl 5 mg tablet 5 mg PO DAILY PRN Constipation 03/31/24 04/23/24 Unknown History ascorbic acid (vitamin C) 500 mg 500 mg PO DAILY 04/23/24 04/23/24 Unknown History tablet aspirin 81 mg tablet,delayed 81 mg PO DAILY 04/23/24 04/23/24 Unknown History release bisacodyl 10 mg rectal suppository 10 mg SC DAILY PRN Constipation 04/23/24 04/23/24 Unknown History bisacodyl 10 mg rectal suppository 10 mg SC Q3D 04/23/24 04/23/24 Unknown History guaifenesin 600 mg tablet, 600 mg PO Q12H PRN Cold Symptoms 04/23/24 04/23/24 Unknown History extended release 12 hr (Mucinex) sodium phosphates 19 gram-7 118 ml SC DAILY PRN Constipation 04/23/24 04/23/24 Unknown History gram/118 mL enema (Fleet Enema) zinc 50 mg tablet 200 mg PO DAILY 04/23/24 04/23/24 Unknown History Physical Exam Vital Signs and Narrative: Vital Signs: Last Vital Signs Temp 103.1 F H 05/28/24 03:27 Pulse 147 H 05/28/24 04:14 Resp 24 H 05/28/24 04:14 BP 119/53 L 05/28/24 04:14 Pulse Ox 97 05/28/24 04:14 O2 Del Method Room Air 05/28/24 04:14 BMI result Body Mass Index 23.3 Results Labs 05/28/24 04:09 05/27/24 23:51 Labs: Laboratory Results - last 24 hr 05/27/24 05/28/24 05/28/24 23:51 01:25 04:09 MCV 91.8 93.1 MCH 30.4 30.9 MCHC 33.1 33.2 RDW 17.2 H 17.3 H Plt Count 276 D 248 MPV 9.3 L 9.6 Immature Gran % (Auto) 0.4 Cancelled Neut % (Auto) 87.0 H Cancelled Lymph % (Auto) 5.6 L Cancelled [place] % (Auto) 5.4 Cancelled Eos % (Auto) 1.3 Cancelled Baso % (Auto) 0.3 Cancelled Lymph # (Auto) 0.8 L Cancelled [place] # (Auto) 0.8 Cancelled Eos # (Auto) 0.2 Cancelled Baso # (Auto) 0.0 Cancelled Abs Immat Gran (auto) 0.06 H Cancelled Absolute Neuts (auto) 12.3 H Cancelled Absolute Nucleated RBC 0.000 0.030 H Nucleated RBC % (auto) 0.0 0.2 PT 10.8 L INR 0.9 Anion Gap 14 Estim Creat Clear Calc 61.3 Estimated GFR > 60 Random Glucose 198 H Lactic Acid 4.6 H* Calcium 9.3 Total Bilirubin 0.5 AST 13 ALT 9 Alkaline Phosphatase 115 Total Protein 7.4 Albumin 3.7
--- NOTE | 2024-05-28 04:25 | PC.NURSE ---
Pt back from CT at this time. BP stable for scan. Awaiting results.
[2024-05-28 04:31] LABS: ~Lactic Acid-LAB USE ONLY 5.7 mmol/L (0.5-2.0)
[2024-05-28] MEDS: Piperacillin Sodium/Tazobactam 3.375 GM in 0.9 % Sodium Chloride 50 ML IV (04:41)
[2024-05-28 04:49] LABS: Neutrophils Percent Manual 65 % (45-73)
[2024-05-28 04:51] LABS: Band Neutrophils Percent 27 % (3-5); Eosinophils Absolute Manual 0.3 X10*3/uL (0.0-0.4); Eosinophils Percent Manual 2 % (0-4); Giant Platelet PRESENT; Lymphocytes Absolute Manual 0.8 X10*3/uL (1.2-4.9); Lymphocytes Percent Manual 5 % (20-40); Macrocytosis 1+ (5-14) /OIF; Metamyelocytes Absolute 0.2 X10*3/uL; Metamyelocytes Percent 1 %; Neutrophils Absolute Manual 14.1 X10*3/uL (2.0-8.3); Platelet Estimate NORMAL (NORMAL); Platelet Morphology Comment NOTED; RBC Morphology NOTED; Schistocytes 1+ (0-2) /OIF; Toxic Vacuolation PRESENT
[2024-05-28 05:04] LABS: CDiff Gene PCR NEGATIVE (Negative)
[2024-05-28] MEDS: Ketorolac Tromethamine 30 MG/ML VIAL IVPUSH (06:01)
[2024-05-28 06:14] LABS: Reflex Lactate? 2 Y
[2024-05-28] MEDS: Hydrocortisone Sod Succ/PF 100 MG VIAL IVPUSH (07:06)
[2024-05-28 07:11] LABS: Glucose, Whole Blood 128 mg/dL (60-115)
--- NOTE | 2024-05-28 07:28 | PC.NURSE ---
MD Martin at bedside placing central line. Awaiting central line for Levophed administration.
[2024-05-28] MEDS: Norepinephrine Bitartrate/D5W 8 MG/250 ML PLAST..BAG 7.5 MG IV (07:43)
[2024-05-28] MEDS: vancomycin/NS 2,000 MG/500 ML PLAST..BAG 250 MG IV (07:46)
[2024-05-28 07:55] LABS: Hematocrit 26.8 % (42.0-52.0); Hemoglobin 8.7 g/dl (14.0-18.0); Mean Corpuscular HGB Conc 32.5 g/dl (31.0-36.0); Mean Corpuscular Volume 95.4 fL (80.0-98.0); PLT CLUMP 1; Red Blood Count 2.81 X10*6/uL (4.60-5.80); Red Cell Distribution Width 17.3 % (11.0-16.0)
[2024-05-28 07:56] LABS: White Blood Count 23.8 X10*3/uL (4.8-10.8)
[2024-05-28 08:17] LABS: Band Neutrophils Percent 20 % (3-5); Lymphocytes Absolute Manual 0.2 X10*3/uL (1.2-4.9); Lymphocytes Percent Manual 1 % (20-40); Metamyelocytes Absolute 0.2 X10*3/uL; Metamyelocytes Percent 1 %; Myelocytes Absolute 0.2 X10*/uL; Myelocytes Percent 1 %; Neutrophils Absolute Manual 23.1 X10*3/uL (2.0-8.3); Neutrophils Percent Manual 77 % (45-73)
[2024-05-28 08:18] LABS: Macrocytosis 1+ (5-14) /OIF; RBC Morphology NOTED
[2024-05-28 08:19] LABS: ~Lactic Acid-LAB USE ONLY 4.1 mmol/L (0.5-2.0)
[2024-05-28 08:19] LABS: Acanthocytes 2+ (3-5) /OIF; Ovalocytes 1+ (5-14) /OIF
[2024-05-28 08:20] LABS: Burr Cells 1+ (0-2) /OIF
[2024-05-28 08:21] LABS: Schistocytes 1+ (0-2) /OIF
[2024-05-28 08:23] LABS: Toxic Vacuolation PRESENT
--- NOTE | 2024-05-28 08:34 | PC.NURSE ---
Dr. Bartholomew at bedside to assess carty cath. Irrigates well without clots, no concerns at this time.
[2024-05-28] MEDS: Lactated Ringers 1,000 ML 80 ML IVCONT ×3 (08:45→19:51)
[2024-05-28] MEDS: Enoxaparin Sodium 30 MG/0.3 ML SYRINGE SUBCUT (08:47)
[2024-05-28] MEDS: Pantoprazole Sodium 40 MG in 0.9 % Sodium Chloride 100 ML 400 MG IV (08:49)
--- NOTE | 2024-05-28 08:59 | P.HPCC_ITS ---
History of Present Illness Date of Service: 05/28/24 Attending physician on admission: Adan Pritchard Chief Complaint: Hypotension 79-year-old male with PMH of multiple sclerosis who is chronically bed-bound with chronic indwelling Nunez catheter, past history of bullous pemphigoid on chronic steroids, mood disorder, mixed hyperlipidemia, hypertension, insulin- dependent diabetes mellitus presented to the ED last night due to perez hematuria. He did not have any hematuria in the past. In the ED patient developed fever, his Nunez was replaced but there were multiple attempts as he had a difficult passage. His lactate was 4, was hypotensive some received multiple L fluid boluses, repeat lactate remained at 5 and needed vasopressor support so he is being transferred to medical ICU for the management of septic shock. CT abdomen and pelvis done in the ED suggested possible cystitis with mild bilateral hydronephrosis, possible proctocolitis. Review of Systems 2 Review of Systems: Unable to obtain as patient is confused PMFSH Past Medical History Medical History EDWARD (acute kidney injury) UTI (urinary tract infection) due to urinary indwelling Nunez catheter Bullous pemphigoid Steroid dependence Decubitus ulcer of coccygeal region, stage 2 Acute hypotension Sepsis Aspiration pneumonitis Recurrent UTI (urinary tract infection) Hypotonic neurogenic bladder Lytic lesion of bone on x-ray Wound of foot Anemia Septic shock Shoulder pain Constipation Hematuria Multiple sclerosis Depression Diabetes mellitus type 2 in obese Chronic pain syndrome BPH (benign prostatic hyperplasia) Dehydration Chronic renal failure Urinary tract infection Family History Family History Family/Other Heart attack Father Diabetes Surgical History Surgical History Hx of removal of cyst Social History Social History Household Members: Unknown / Unable to assess Household Members Other:: lives at [facility][1] on [address] in [place] Housing: Senior Living Housing Other:: [facility] Unable to assess alcohol history related to: Unable to respond Alcohol intake: never Comment: pt sedated on vent. Patient Tobacco Use Status: Former Tobacco user Cigarette Packs Per Day: 1 Advance Directives Date on File: 04/22/24 service: Yes Current occupational status: retired Meds Allergies Allergy/AdvReac Type Severity Reaction Status Date / Time Benzodiazepines Allergy Unknown UNKNOWN Verified 05/27/24 22:23 [BENZODIAZEPINES] dalfampridine [From AMPYRA] Allergy Unknown UNKNOWN Verified 05/27/24 22:23 duloxetine [From CYMBALTA] Allergy Unknown UNKNOWN Verified 05/27/24 22:23 ezetimibe [From ZETIA] Allergy Unknown UNKNOWN Verified 05/27/24 22:23 niacin [NIACIN] Allergy Unknown UNKNOWN Verified 05/27/24 22:23 pravastatin [PRAVASTATIN] Allergy Unknown UNKNOWN Verified 05/27/24 22:23 [id number] Reductase Allergy Unknown UNKNOWN Verified 05/27/24 22:23 Inhibitor [[id number] REDUCTASE INHIBITOR] lorazepam [From ATIVAN] AdvReac Severe EXCESSIVE Verified 05/27/24 22:23 SEDATION doxycycline [DOXYCYCLINE] AdvReac Mild esophogeal Verified 05/27/24 22:23 iritation methylprednisolone AdvReac Mild heartburn Verified 05/27/24 22:23 [From SOLU-MEDROL] ertapenem [From INVANZ] AdvReac Unknown possible Verified 04/11/21 09:47 cause of bullous pemphigoid Active Medications: Current Medications Acetaminophen (Acetaminophen 325 Mg Tablet) 650 mg PO Q6H PRN PRN Reason: Fever >101 Enoxaparin Sodium (Enoxaparin Sodium 30 Mg/0.3 Ml Syringe) 30 mg SUBCUT Q24H [facility] Last Admin: 05/28/24 08:47 Dose: 30 mg Hydromorphone HCl (Hydromorphone Hcl 1 Mg/Ml Syringe) 0.5 mg IVPUSH Q6H PRN; Protocol PRN Reason: Pain, Moderate(Pain Scale 4-6) Norepinephrine Bitartrate (Levophed) 8 mg in 250 mls @ 0 mls/hr IV .Q0M WICHO; Protocol Last Titration: 05/28/24 08:58 Dose: 0.17 mcg/kg/min, 25.5 mls/hr Vancomycin HCl (Vancomycin/Ns) 2,000 mg in 500 mls @ 250 mls/hr IV ONCE ONE Stop: 05/28/24 09:29 Last Admin: 05/28/24 07:46 Dose: 250 mls/hr Pantoprazole Sodium 40 mg/ (Sodium Chloride) 110 mls @ 400 mls/hr IV DAILY@0630 [facility] Last Admin: 05/28/24 08:49 Dose: 400 mls/hr Norepinephrine Bitartrate (Levophed) 8 mg in 250 mls @ 0 mls/hr IV .Q0M WICHO; Protocol Lactated Ringer's (Lr) 1,000 mls @ 80 mls/hr IVCONT .[id number] [facility] Last Admin: 05/28/24 08:45 Dose: 80 mls/hr Albumin Human (Kedbumin 25 %) 100 mls @ 133.333 mls/hr IV Q1H [facility] Stop: 05/28/24 10:44 Ondansetron HCl (Ondansetron Hcl 4 Mg/2 Ml Vial) 4 mg IVPUSH Q8H PRN PRN Reason: Nausea Home Medications ?Medication ?Instructions ?Recorded ?Confirmed ?Last Taken ?Type gabapentin 300 mg capsule 300 mg PO BID@0630,1200 10/09/20 05/28/24 Unknown History metformin 500 mg tablet 500 mg PO BIDWM 10/09/20 05/28/24 Unknown History tramadol 50 mg tablet 50 mg PO BEDTIME PRN moderate to 10/09/20 05/28/24 Unknown History severe pain acetaminophen 325 mg tablet 650 mg PO Q4H PRN pain or fever 03/13/21 05/28/24 Unknown History rosuvastatin 10 mg tablet 10 mg PO DAILY 03/13/21 05/28/24 Unknown History guaifenesin 100 mg/5 mL oral 200 mg PO Q4H PRN Cough 05/19/21 05/28/24 Unknown History liquid (Diabetic Tussin EX) prednisone 2.5 mg tablet 2.5 mg PO DAILY 05/19/21 05/28/24 Unknown History amlodipine 10 mg tablet 10 mg PO DAILY 11/16/23 05/28/24 Unknown History bismuth subsalicylate 262 mg/15 mL 524 mg PO Q8H PRN UPSET 11/16/23 05/28/24 Unknown History oral suspension (Pepto-Bismol) STOMACH/NAUSEA ceramides 1,3,6-II (CeraVe topical 1 appl topical BID Dry Skin 11/16/23 05/28/24 Unknown History cream) docusate sodium 100 mg capsule 100 mg PO BID 11/16/23 05/28/24 Unknown History (Colace) famotidine 20 mg tablet 20 mg PO BID 11/16/23 05/28/24 Unknown History folic acid 1 mg tablet 1 mg PO SUTUWETHFRSA 11/16/23 05/28/24 Unknown History gabapentin 800 mg tablet 800 mg PO BEDTIME 11/16/23 05/28/24 Unknown History insulin glargine-yfgn 100 unit/mL 5 unit subcut BEDTIME 11/16/23 05/28/24 Unknown History subcutaneous solution lactulose 10 gram/15 mL oral 30 ml PO DAILY 11/16/23 05/28/24 Unknown History solution (Enulose) losartan 25 mg tablet 25 mg PO BEDTIME 11/16/23 05/28/24 Unknown History melatonin 5 mg tablet 5 mg PO BEDTIME PRN Insomnia 11/16/23 05/28/24 Unknown History polyethylene glycol 3350 17 17 g PO DAILY 11/16/23 05/28/24 Unknown History gram/dose oral powder (Miralax) sennosides 8.6 mg tablet (senna) 17.2 mg PO BEDTIME 11/16/23 05/28/24 Unknown History zolpidem 6.25 mg tablet,extended 6.25 mg PO BEDTIME 11/16/23 05/28/24 Unknown History release,multiphase methotrexate sodium 2.5 mg tablet 15 mg PO MO 02/25/24 05/28/24 Unknown History bisacodyl 5 mg tablet 5 mg PO DAILY PRN Constipation 03/31/24 05/28/24 Unknown History aspirin 81 mg tablet,delayed 81 mg PO DAILY 04/23/24 05/28/24 Unknown History release bisacodyl 10 mg rectal suppository 10 mg [place] DAILY PRN Constipation 04/23/24 05/28/24 Unknown History bisacodyl 10 mg rectal suppository 10 mg [place] Q3D 04/23/24 05/28/24 Unknown History guaifenesin 600 mg tablet, 600 mg PO Q12H PRN Cold Symptoms 04/23/24 05/28/24 Unknown History extended release 12 hr (Mucinex) sodium phosphates 19 gram-7 118 ml [place] DAILY PRN Constipation 04/23/24 05/28/24 Unknown History gram/118 mL enema (Fleet Enema) triamcinolone acetonide 0.1 % 1 appl topical BID 05/28/24 05/28/24 Unknown History topical cream Physical Exam 2 Vital Signs: Vital Signs: Last Vital Signs Temp 99.7 F 05/28/24 07:56 Pulse 91 05/28/24 08:58 Resp 14 05/28/24 08:43 BP 74/42 L 05/28/24 08:58 Pulse Ox 98 05/28/24 08:43 O2 Del Method Room Air 05/28/24 08:43 BMI result Body Mass Index 22.3 General: Patient is in acute distress, ill appearing and tired appearing Nutritional Appearance: Poorly nourished and under weight Eyes: appearance normal, both eyes and all related structures; Alignment and Position: alignment normal and position normal Neck: No lymphadenopathy, no thyromegaly Resp: bilateral air entry equal, occasional added sounds present Cardio: Regular rate, regular rhythm; Heart sounds: S1 normal heart sound present and S2 normal heart sound present GI: soft, nontender, no guarding, no hepatosplenomegaly : bladder normal to inspection, bladder tender to palpation, no renal angle tenderness Skin: no rashes or lesions noted and elasticity normal Neuro: Drowsy, confused, no focal deficits Results Labs 05/28/24 07:42 05/27/24 23:51 Labs: Laboratory Results - last 24 hr 05/27/24 05/28/24 05/28/24 23:51 01:25 03:39 MCV 91.8 MCH 30.4 MCHC 33.1 RDW 17.2 H Plt Count 276 D MPV 9.3 L Immature Gran % (Auto) 0.4 Neut % (Auto) 87.0 H Lymph % (Auto) 5.6 L Sawyer % (Auto) 5.4 Eos % (Auto) 1.3 Baso % (Auto) 0.3 Lymph # (Auto) 0.8 L Sawyer # (Auto) 0.8 Eos # (Auto) 0.2 Baso # (Auto) 0.0 Abs Immat Gran (auto) 0.06 H Absolute Neuts (auto) 12.3 H Absolute Nucleated RBC 0.000 Nucleated RBC % (auto) 0.0 Neutrophils % (Manual) Band Neutrophils % Lymphocytes % (Manual) Eosinophils % (Manual) Metamyelocytes % Myelocytes % Abs Neuts (Manual) Lymphocytes # (Manual) Eosinophils # (Manual) Metamyelocytes # Myelocytes # Toxic Vacuolation Platelet Estimate Giant Platelets Plt Morphology Comment RBC Morphology Macrocytosis Ovalocytes Smoot Cells Acanthocytes (Spur) Schistocytes PT 10.8 L INR 0.9 Anion Gap 14 Estim Creat Clear Calc 61.3 Estimated GFR > 60 POC Glucose Random Glucose 198 H Lactic Acid 4.6 H* Lactic Acid F/U @ 2Hr Lactic Acid F/U @ 4Hr Calcium 9.3 Total Bilirubin 0.5 AST 13 ALT 9 Alkaline Phosphatase 115 Total Protein 7.4 Albumin 3.7 C. difficile Tox B Gene NEGATIVE Blood Type Antibody Screen 05/28/24 05/28/24 05/28/24 04:09 07:04 07:42 MCV 93.1 95.4 MCH 30.9 31.0 MCHC 33.2 32.5 RDW 17.3 H 17.3 H Plt Count 248 TNP MPV 9.6 TNP Immature Gran % (Auto) Cancelled Cancelled Neut % (Auto) Cancelled Cancelled Lymph % (Auto) Cancelled Cancelled Sawyer % (Auto) Cancelled Cancelled Eos % (Auto) Cancelled Cancelled Baso % (Auto) Cancelled Cancelled Lymph # (Auto) Cancelled Cancelled Sawyer # (Auto) Cancelled Cancelled Eos # (Auto) Cancelled Cancelled Baso # (Auto) Cancelled Cancelled Abs Immat Gran (auto) Cancelled Cancelled Absolute Neuts (auto) Cancelled Cancelled Absolute Nucleated RBC 0.030 H 0.000 Nucleated RBC % (auto) 0.2 0.0 Neutrophils % (Manual) 65 77 H Band Neutrophils % 27 H 20 H Lymphocytes % (Manual) 5 L 1 L Eosinophils % (Manual) 2 Metamyelocytes % 1 1 Myelocytes % 1 Abs Neuts (Manual) 14.1 H 23.1 H Lymphocytes # (Manual) 0.8 L 0.2 L Eosinophils # (Manual) 0.3 Metamyelocytes # 0.2 0.2 Myelocytes # 0.2 Toxic Vacuolation PRESENT PRESENT Platelet Estimate NORMAL TNP Giant Platelets PRESENT Plt Morphology Comment NOTED TNP RBC Morphology NOTED NOTED Macrocytosis 1+ (5-14) 1+ (5-14) Ovalocytes 1+ (5-14) Brent Cells 1+ (0-2) Acanthocytes (Spur) 2+ (3-5) Schistocytes 1+ (0-2) 1+ (0-2) PT INR Anion Gap Estim Creat Clear Calc Estimated GFR POC Glucose 128 H Random Glucose Lactic Acid Lactic Acid F/U @ 2Hr 5.7 H* Lactic Acid F/U @ 4Hr Calcium Total Bilirubin AST ALT Alkaline Phosphatase Total Protein Albumin C. difficile Tox B Gene Blood Type B Positive Antibody Screen NEGATIVE 05/28/24 07:48 MCV MCH MCHC RDW Plt Count MPV Immature Gran % (Auto) Neut % (Auto) Lymph % (Auto) Sawyer % (Auto) Eos % (Auto) Baso % (Auto) Lymph # (Auto) Sawyer # (Auto) Eos # (Auto) Baso # (Auto) Abs Immat Gran (auto) Absolute Neuts (auto) Absolute Nucleated RBC Nucleated RBC % (auto) Neutrophils % (Manual) Band Neutrophils % Lymphocytes % (Manual) Eosinophils % (Manual) Metamyelocytes % Myelocytes % Abs Neuts (Manual) Lymphocytes # (Manual) Eosinophils # (Manual) Metamyelocytes # Myelocytes # Toxic Vacuolation Platelet Estimate Giant Platelets Plt Morphology Comment RBC Morphology Macrocytosis Ovalocytes Smoot Cells Acanthocytes (Spur) Schistocytes PT INR Anion Gap Estim Creat Clear Calc Estimated GFR POC Glucose Random Glucose Lactic Acid Lactic Acid F/U @ 2Hr Lactic Acid F/U @ 4Hr 4.1 H* Calcium Total Bilirubin AST ALT Alkaline Phosphatase Total Protein Albumin C. difficile Tox B Gene Blood Type Antibody Screen Imaging Radiologist's Impressions: Impressions Abdomen/Pelvis CT 05/28/24 04:25 IMPRESSION: 1. Mild bilateral hydroureteronephrosis, right side greater than left. No obstructing renal or ureteral calculi are identified. 2. Thickened, trabeculated bladder wall with numerous small bladder diverticula, most consistent with chronic bladder obstruction. Small foci of radiodense material dependently within the bladder may represent small bladder calculi. Gas within the bladder is presumably related to the presence of a Nunez catheter, though superimposed cystitis is possible. 3. Mild colonic wall thickening, most notably in the sigmoid colon and rectum. This is most likely due to underdistention, though a mild proctocolitis is also possible if the patient is symptomatic. Fleischner guidelines were followed. Chest X-Ray 05/28/24 07:40 IMPRESSION: Left basilar airspace disease possible atelectasis. Assessment and Plan (1) Perez hematuria: Status: Acute (2) Severe sepsis: Status: Acute (3) Altered mental status: Status: Acute (4) Multiple sclerosis: Status: Acute (5) Acute UTI: Status: Acute (6) EDWARD (acute kidney injury): Status: Acute (7) Obstructive uropathy: Status: Acute Plan 79-year-old male with PMH of multiple sclerosis who is chronically bed-bound with chronic indwelling Nunez catheter, past history of bullous pemphigoid on chronic steroids, mood disorder, mixed hyperlipidemia, hypertension, insulin- dependent diabetes mellitus admitted on 05/28/2028 due to septic shock possibly from cystitis needing vasopressor support. CT abdomen and pelvis done in the ED suggested possible cystitis with mild bilateral hydronephrosis, possible proctocolitis. Neuro: Acute encephalopathy possibly due to metabolic encephalopathy Has history of underlying mood disorder, multiple sclerosis. We will resume home medication baclofen, gabapentin Close neurological status monitoring in the ICU every hour Cardiac: Septic Shock: Possibly secondary to cystitis and urinary tract infection On Levophed support, titrate Levophed to keep map above 65 mm Hg GI: We will start on tube feeds Renal: Hematuria: If needed we will do bladder wall irrigation, secondary to cystitis Creatinine normal, possibly would not be able to generate enough creatinine due to low muscle mass. We will closely monitor I's and O's Avoid nephrotoxic medications Heme: Chronic anemia, closely monitor H&H, transfuse for hemoglobin less than 7 grams/deciliter Endocrine: Blood sugars under control Sliding scale insulin as needed Infectious disease: We will send pancultures will start the patient on Zosyn had Pseudomonas UTI in the past resistant to levofloxacin, has allergic to ertapenem so would not start on meropenem, has history of bullous pemphigoid so would prefer Zosyn for cefepime Musculoskeletal: Decubitus ulcer prevention protocol Lines: TLC placed in the ED on 05/28/2024 Prophylaxis: SCD, we will hold Lovenox due to hematuria, pantoprazole Talked to patient's Tete updated her about his critical condition. Also talked to her about his code status and possibly needing life support, which she said she has not in favor of given his baseline condition however she will talk to her son before making the final decision. Septic shock is being treated adequately with bolus dose IV fluids 30 mL/kg, followed by albumin infusions. Serial lactate was followed which increased from 4 to 5 despite IV fluids so we will give additional albumin infusions. Antibiotics were started within time in the ED, blood cultures were sent Critical daily time spent is about 40 minutes on evaluation at admission of the patient to critical care unit, formulating critical care patent management, close hemodynamic monitoring, managing shock, titrating vasopressor support, close neurological status monitoring, review labs, review of CT and other images, managing hematuria Total time managing care of this patient today: 40 minutes.
--- NOTE | 2024-05-28 09:41 | PC.NURSE ---
Assumed care of patient 09:5. Pt transferred from ED to ICU by this I O PSYCHOLOGIST + KAMALJIT fowler. Pt on zoll monitor with Levo gtt @0.19 Pt arrive to ICU 09:28. MD assessed pt cardiac status at bedside with US. Per MD, give the LR fluids as a bolus. LR@999 ml/hr for 1L Pt given bed bath, skin photos obtained for MAR (see skin photo note) carty draining small amounts of punch colored urine, no clots visible
--- NOTE | 2024-05-28 10:07 | PHA.MEDREC ---
Pharmacy Consult ? Medication Reconciliation Pharmacy has completed the medication reconciliation, list provided from Sam[facility] Schuster on [address].
[2024-05-28] MEDS: Albumin Human 25 % 100 ML 133.33 ML IV ×2 (11:05→11:50)
[2024-05-28 11:09] LABS: Phosphorus 2.4 mg/dL (2.7-4.5)
[2024-05-28] MEDS: Piperacillin Sodium/Tazobactam 4.5 GM in 0.9 % Sodium Chloride 100 ML IV ×3 (11:13→21:44)
[2024-05-28 11:19] LABS: Glucose, Whole Blood 172 mg/dL (60-115)
[2024-05-28] MEDS: Norepinephrine Bitartrate/D5W 8 MG/250 ML PLAST..BAG 76.5 MG IV (12:51)
[2024-05-28] MEDS: Atorvastatin Calcium 40 MG TABLET PO (12:53)
[2024-05-28] MEDS: Baclofen 20 MG TABLET PO ×3 (12:53→21:26)
[2024-05-28] MEDS: Vasopressin 20 UNIT/100 ML INFUS..BTL 12 UNIT IVCONT ×2 (14:02→19:43)
[2024-05-28] MEDS: Lactated Ringers 1,000 ML 999 ML IV (14:26)
--- NOTE | 2024-05-28 15:05 | MHC.CM.PN ---
CM MET WITH PT'S SPOUSE AT BEDSIDE IN ICU. PT IS UNABLE TO PARTICIPATE IN ASSESSMENT . PT IS BEDBOUND AT BASELINE, LTC RESIDENT AT [facility]. +HCP/POA ON FILE. PCP DR. COY DP: PER , PT WILL RETURN TO [facility] FOR RESUMPTION OF [facility] VIA BLS. CM WILL CONTINUE TO FOLLOW FOR ANY CHANGE TO DC PLAN.
[2024-05-28 16:10] LABS: Glucose, Whole Blood 335 mg/dL (60-115)
[2024-05-28] MEDS: Norepinephrine Bitartrate/D5W 8 MG/250 ML PLAST..BAG 67.5 MG IV (16:17)
[2024-05-28] MEDS: Insulin Lispro 100 UNIT/ML 3 ML VIAL SUBCUT ×2 (16:33→21:26)
--- NOTE | 2024-05-28 17:35 | HO.SKINPHOTO ---
Location: Sacrum Category: Pressure Injury Location: Coccyx Category: Pressure Injury Stage: DTI Length: 1cm Width: 1cm DTI surrounded by blanchable redness. Location: Upper Back Category: Blanchable redness with brown scabbing Location: Bilateral lower extremities Category: Abrasions Location: Left Foot Location: Left Toe Location: Right Foot Category: Abrasions Location: Right Foot Category: Abrasions
[2024-05-28 17:42] LABS: Hematocrit 24.4 % (42.0-52.0); Mean Corpuscular HGB Conc 32.8 g/dl (31.0-36.0); Mean Corpuscular Hemoglobin 31.6 pg (27.0-33.0); Mean Corpuscular Volume 96.4 fL (80.0-98.0); Mean Platelet Volume 10.7 fL (9.4-12.4); Platelet Count 195 X10*3/uL (160-400); Red Blood Count 2.53 X10*6/uL (4.60-5.80); Red Cell Distribution Width 17.8 % (11.0-16.0)
[2024-05-28 17:45] LABS: WBC ABN SCTR FOR CBC 1
[2024-05-28 18:15] LABS: White Blood Count 60.2 X10*3/uL (4.8-10.8)
[2024-05-28 18:19] LABS: Band Neutrophils Percent 13 % (3-5); Lymphocytes Absolute Manual 0.6 X10*3/uL (1.2-4.9); Lymphocytes Percent Manual 1 % (20-40); Metamyelocytes Absolute 1.8 X10*3/uL; Metamyelocytes Percent 3 %; Monocytes Absolute Manual 0.6 X10*3/uL (0.1-1.2); Monocytes Percent Manual 1 % (2-11); Myelocytes Absolute 2.4 X10*/uL; Myelocytes Percent 4 %; Neutrophils Absolute Manual 54.8 X10*3/uL (2.0-8.3); Neutrophils Percent Manual 78 % (45-73)
[2024-05-28 18:21] LABS: Burr Cells 1+ (0-2) /OIF; Schistocytes 1+ (0-2) /OIF; Toxic Vacuolation PRESENT
[2024-05-28 18:22] LABS: Platelet Estimate NORMAL (NORMAL); Platelet Morphology Comment NORMAL; RBC Morphology NOTED
[2024-05-28] MEDS: Norepinephrine Bitartrate/D5W 8 MG/250 ML PLAST..BAG 61.5 MG IV (19:44)
[2024-05-28 20:46] LABS: Hematocrit 24.7 % (42.0-52.0); Hemoglobin 8.2 g/dl (14.0-18.0); Mean Corpuscular HGB Conc 33.2 g/dl (31.0-36.0); Mean Corpuscular Hemoglobin 31.7 pg (27.0-33.0); Mean Corpuscular Volume 95.4 fL (80.0-98.0); Mean Platelet Volume 10.3 fL (9.4-12.4); Platelet Count 186 X10*3/uL (160-400); Red Blood Count 2.59 X10*6/uL (4.60-5.80); Red Cell Distribution Width 17.9 % (11.0-16.0)
[2024-05-28 21:11] LABS: Glucose, Whole Blood 379 mg/dL (60-115)
[2024-05-28 21:16] LABS: WBC ABN SCTR FOR CBC 1
[2024-05-28] MEDS: Gabapentin 400 MG CAPSULE 800 MG PO (21:26)
[2024-05-28] MEDS: Insulin Glargine,Hum.rec.anlog 100 UNIT/ML 10 ML VIAL 10 UNIT SUBCUT (21:26)
[2024-05-28 21:37] LABS: Band Neutrophils Percent 15 % (3-5); Lymphocytes Percent Manual 1 % (20-40); Metamyelocytes Percent 6 %; Monocytes Percent Manual 4 % (2-11); Myelocytes Percent 1 %; Neutrophils Percent Manual 73 % (45-73)
[2024-05-28 21:39] LABS: Burr Cells 1+ (0-2) /OIF; RBC Morphology NOTED; Schistocytes 1+ (0-2) /OIF; Toxic Vacuolation PRESENT
[2024-05-28 21:40] LABS: Platelet Estimate NORMAL (NORMAL); Platelet Morphology Comment NORMAL
[2024-05-28 21:41] LABS: Lymphocytes Absolute Manual 0.6 X10*3/uL (1.2-4.9); Metamyelocytes Absolute 3.9 X10*3/uL; Monocytes Absolute Manual 2.6 X10*3/uL (0.1-1.2); Myelocytes Absolute 0.6 X10*/uL; White Blood Count 64.8 X10*3/uL (4.8-10.8)
[2024-05-28 21:56] LABS: Glucose, Whole Blood 361 mg/dL (60-115)
[2024-05-28 22:09] LABS: Lactic Acid 5.1 mmol/L (0.5-2.0)
[2024-05-28 22:46] LABS: ABG Base Excess -10.2 mmol/L; ABG HCO3 14 mmol/L (22-26); ABG pCO2 26 mmHg (32-45); ABG pH 7.33 (7.35-7.45); ABG pO2 114 mmHg (83-108)
[2024-05-28 23:00] LABS: Magnesium 1.5 mg/dL (1.6-2.6); Phosphorus 2.7 mg/dL (2.7-4.5)
[2024-05-28 23:04] LABS: Alanine Aminotransferase 39 U/L (0-40); Alkaline Phosphatase 78 U/L (39-117); Anion Gap 15 (12-20); Aspartate Amino Transferase 39 U/L (5-37); Bilirubin Total 0.9 mg/dL (0.0-1.0); Blood Urea Nitrogen 29 mg/dL (9-16); Calcium 7.2 mg/dL (8.4-10.2); Carbon Dioxide 15 mmol/L (22-29); Chloride 109 mmol/L (96-108); Creatinine Clr Calc Pharmacy 50.5; Estimated Glomerular Filt Rate 52; Glucose Random 399 mg/dL (60-115); Potassium 3.6 mmol/L (3.3-5.1); Sodium 135 mmol/L (135-145); Total Protein 5.3 g/dL (6.5-8.0)
[2024-05-28 23:06] LABS: ABG Refer to POC result
[2024-05-28] MEDS: Sodium Bicarbonate 8.4% 50 MEQ/50 ML SYRINGE 100 MEQ IVPUSH (23:07)
[2024-05-28] MEDS: Sodium Bicarbonate 8.4% 150 MEQ in Dextrose 5 % 850 ML IV (23:19)
[2024-05-28] MEDS: Insulin Regular/NS 100 UNIT/100 ML PLAST..BAG 8 UNIT IVCONT (23:24)
[2024-05-28] MEDS: Norepinephrine Bitartrate/D5W 8 MG/250 ML PLAST..BAG 55.5 MG IV (23:38)
[2024-05-28] MEDS: Albumin Human 25 % 100 ML IV (23:46)
[2024-05-28 23:47] LABS: Reflex Lactate? Lactic Acid Added
[2024-05-28] MEDS: Magnesium Sulfate/H2O 2 GM/50 ML PIGGYBACK IV (23:48)
[2024-05-28] MEDS: Calcium Gluconate/NaCl,Iso-Osm 1 GM/50 ML PLAST..BAG IV (23:48)
[2024-05-28 23:57] LABS: Glucose, Whole Blood 361 mg/dL (60-115)
[2024-05-29] VITALS (51 sets, daily range): BP systolic 85–147; BP diastolic 42–67; PULSE 75–109; RESP 10–18; TEMP 35.2–37.7; O2SAT 89–99; BMI 22.7
[2024-05-29] MEDS: 0.9 % Sodium Chloride Flush 3 ML SYRINGE IVFLUSH ×2 (00:15→08:02)
[2024-05-29 00:45] LABS: ~Lactic Acid-LAB USE ONLY 5.1 mmol/L (0.5-2.0)
[2024-05-29 00:53] LABS: Glucose, Whole Blood 352 mg/dL (60-115)
[2024-05-29] MEDS: Albumin Human 25 % 100 ML IV ×5 (00:55→23:52)
[2024-05-29] MEDS: LORazepam 2 MG/ML VIAL 1 MG IVPUSH (01:47)
[2024-05-29 01:52] LABS: Glucose, Whole Blood 351 mg/dL (60-115)
[2024-05-29] MEDS: Potassium Chloride Packet 20 MEQ PACKET 40 MEQ PO (02:05)
[2024-05-29 02:20] LABS: Hematocrit 21.1 % (42.0-52.0); Hemoglobin 7.1 g/dl (14.0-18.0); Mean Corpuscular HGB Conc 33.6 g/dl (31.0-36.0); Mean Corpuscular Hemoglobin 31.7 pg (27.0-33.0); Mean Corpuscular Volume 94.2 fL (80.0-98.0); Platelet Count 133 X10*3/uL (160-400); Red Blood Count 2.24 X10*6/uL (4.60-5.80); Red Cell Distribution Width 17.8 % (11.0-16.0); WBC ABN SCTR FOR CBC 1
[2024-05-29 02:21] LABS: White Blood Count 51.5 X10*3/uL (4.8-10.8)
[2024-05-29 02:25] LABS: Reflex Lactate? 2 Y
[2024-05-29 02:41] LABS: Band Neutrophils Percent 24 % (3-5); Metamyelocytes Absolute 1.5 X10*3/uL; Metamyelocytes Percent 3 %; Neutrophils Percent Manual 73 % (45-73)
[2024-05-29 02:43] LABS: Acanthocytes 1+ (0-2) /OIF; Alanine Aminotransferase 48 U/L (0-40); Albumin Level 3.8 g/dL (3.5-5.0); Alkaline Phosphatase 69 U/L (39-117); Anion Gap 19 (12-20); Aspartate Amino Transferase 47 U/L (5-37); Bilirubin Total 0.9 mg/dL (0.0-1.0); Blood Urea Nitrogen 27 mg/dL (9-16); Carbon Dioxide 18 mmol/L (22-29); Chloride 105 mmol/L (96-108); Creatinine Clr Calc Pharmacy 50.5; Estimated Glomerular Filt Rate 52; Glucose Random 368 mg/dL (60-115); Ovalocytes 1+ (5-14) /OIF; Platelet Estimate SLIGHTLY DECREASED (NORMAL); Platelet Morphology Comment NORMAL; Potassium 2.9 mmol/L (3.3-5.1); RBC Morphology NOTED; Sodium 139 mmol/L (135-145); Tear Drop Cells 1+ (0-2) /OIF; Total Protein 5.7 g/dL (6.5-8.0); Toxic Granulation PRESENT; Toxic Vacuolation PRESENT
[2024-05-29 02:44] LABS: Lactic Acid 5.9 mmol/L (0.5-2.0)
[2024-05-29] MEDS: Potassium Chloride/H20 40 MEQ/100 ML PIGGYBACK 100 MEQ IV (02:59)
[2024-05-29 03:02] LABS: Glucose, Whole Blood 315 mg/dL (60-115)
[2024-05-29] MEDS: Norepinephrine Bitartrate/D5W 8 MG/250 ML PLAST..BAG 46.5 MG IV (03:52)
[2024-05-29 03:57] LABS: Glucose, Whole Blood 313 mg/dL (60-115)
[2024-05-29 04:16] LABS: Reflex Lactate? Lactic Acid Added
[2024-05-29] MEDS: Piperacillin Sodium/Tazobactam 4.5 GM in 0.9 % Sodium Chloride 100 ML IV ×4 (04:53→21:38)
[2024-05-29 04:57] LABS: ~Lactic Acid-LAB USE ONLY 5.1 mmol/L (0.5-2.0)
[2024-05-29 05:04] LABS: Glucose, Whole Blood 260 mg/dL (60-115)
[2024-05-29 05:32] LABS: VBG Base Excess -1.8 mmol/L; VBG HCO3 21 mmol/L (22-26); VBG pCO2 32 mmHg; VBG pH 7.43 (7.32-7.43); VBG pO2 47 mmHg
[2024-05-29 05:37] LABS: Venous Blood Gas Refer to POC result
[2024-05-29 05:59] LABS: Glucose, Whole Blood 276 mg/dL (60-115)
[2024-05-29] MEDS: Pantoprazole Sodium 40 MG/10 ML VIAL IVPUSH (06:05)
[2024-05-29] MEDS: Gabapentin 300 MG CAPSULE PO (06:06)
[2024-05-29] MEDS: Insulin Regular/NS 100 UNIT/100 ML PLAST..BAG 8 UNIT IVCONT (06:24)
[2024-05-29 06:37] LABS: Mean Corpuscular HGB Conc 32.9 g/dl (31.0-36.0); Mean Corpuscular Hemoglobin 30.9 pg (27.0-33.0); Mean Corpuscular Volume 94.1 fL (80.0-98.0); Mean Platelet Volume 10.9 fL (9.4-12.4); Platelet Count 116 X10*3/uL (160-400); Red Cell Distribution Width 17.6 % (11.0-16.0); WBC ABN SCTR FOR CBC 1
[2024-05-29 06:38] LABS: Hemoglobin 6.8 g/dl (14.0-18.0); White Blood Count 45.8 X10*3/uL (4.8-10.8)
[2024-05-29 06:39] LABS: Reflex Lactate? 2 Y
[2024-05-29 06:39] LABS: Hematocrit 20.7 % (42.0-52.0)
[2024-05-29 07:12] LABS: Glucose, Whole Blood 245 mg/dL (60-115)
[2024-05-29 07:33] LABS: Alanine Aminotransferase 45 U/L (0-40); Albumin Level 4.3 g/dL (3.5-5.0); Alkaline Phosphatase 64 U/L (39-117); Anion Gap 17 (12-20); Aspartate Amino Transferase 51 U/L (5-37); Bilirubin Total 1.1 mg/dL (0.0-1.0); Blood Urea Nitrogen 26 mg/dL (9-16); Calcium 8.3 mg/dL (8.4-10.2); Carbon Dioxide 22 mmol/L (22-29); Chloride 106 mmol/L (96-108); Estimated Glomerular Filt Rate 57; Glucose Random 294 mg/dL (60-115); Potassium 3.8 mmol/L (3.3-5.1); Sodium 141 mmol/L (135-145); Total Protein 6.2 g/dL (6.5-8.0)
[2024-05-29] MEDS: Sodium Bicarbonate 8.4% 150 MEQ in Dextrose 5 % 850 ML 100 MEQ IV (07:36)
[2024-05-29 08:11] LABS: Glucose, Whole Blood 254 mg/dL (60-115)
[2024-05-29] MEDS: Atorvastatin Calcium 40 MG TABLET PO (08:40)
[2024-05-29] MEDS: Enoxaparin Sodium 30 MG/0.3 ML SYRINGE SUBCUT (08:40)
[2024-05-29 09:06] LABS: Glucose, Whole Blood 240 mg/dL (60-115)
[2024-05-29] MEDS: Norepinephrine Bitartrate/D5W 8 MG/250 ML PLAST..BAG 37.5 MG IV (09:48)
--- NOTE | 2024-05-29 09:49 | P.PNCC_ITS ---
Subjective Subjective Date of Service: 05/29/24 Critical Care Time (minutes): 35 Comment: Clinically he has still the same, very poorly responsive Hematuria cleared Levophed doses decreasing WBC count down to 40,000 today Received a PRBC transfusion this morning due to continuously dropping hemoglobin Physical Exam 2 Vital Signs: Vital Signs: Last Vital Signs Temp 99.3 F 05/29/24 09:44 Pulse 94 05/29/24 09:48 Resp 13 05/29/24 09:44 BP 104/50 L 05/29/24 09:48 Pulse Ox 96 05/29/24 09:00 O2 Del Method Room Air 05/29/24 09:00 BMI result Body Mass Index 22.7 General: In acute distress, ill appearing and tired appearing Nutritional Appearance: Poorly nourished, underweight Eyes: appearance normal, both eyes and all related structures; Alignment and Position: alignment normal and position normal Neck: No lymphadenopathy, no thyromegaly Resp: bilateral air entry equal, occasional added sounds present Cardio: Regular rate, regular rhythm; Heart sounds: S1 normal heart sound present and S2 normal heart sound present GI: soft, nontender, no guarding, no hepatosplenomegaly : bladder normal to inspection, bladder normal to palpation, no renal angle tenderness Skin: Rashes seen in bilateral lower extremities, toenail infection seen at Wound seen on the dose Neuro: Drowsy, unresponsive Objective Data Labs 05/29/24 05:24 05/29/24 05:24 Labs: Laboratory Results - last 24 hr 05/28/24 05/28/24 05/28/24 04:09 10:26 11:16 WBC RBC Hgb Hct MCV MCH MCHC RDW Plt Count MPV Immature Gran % (Auto) Neut % (Auto) Lymph % (Auto) Charles % (Auto) Eos % (Auto) Baso % (Auto) Lymph # (Auto) Charles # (Auto) Eos # (Auto) Baso # (Auto) Abs Immat Gran (auto) Absolute Neuts (auto) Absolute Nucleated RBC Nucleated RBC % (auto) Neutrophils % (Manual) Band Neutrophils % Lymphocytes % (Manual) Monocytes % (Manual) Metamyelocytes % Myelocytes % Abs Neuts (Manual) Lymphocytes # (Manual) Monocytes # (Manual) Metamyelocytes # Myelocytes # Toxic Granulation Toxic Vacuolation Platelet Estimate Plt Morphology Comment RBC Morphology Tear Drop Cells Ovalocytes Brent Cells Acanthocytes (Spur) Schistocytes Hold Purple Top O2 Saturation ABG pH at Pt Temp ABG pCO2 at Pt Temp ABG pO2 at Pt Temp ABG HCO3 ABG Base Excess (Actual) VBG pH VBG pCO2 VBG pO2 VBG HCO3 VBG O2 Saturation VBG Base Excess Sodium Potassium Chloride Carbon Dioxide Anion Gap BUN Creatinine Estim Creat Clear Calc Estimated GFR POC Glucose 172 H Random Glucose Lactic Acid Lactic Acid F/U @ 2Hr Lactic Acid F/U @ 4Hr Calcium Phosphorus 2.4 L Magnesium Total Bilirubin AST ALT Alkaline Phosphatase Total Protein Albumin Blood Type B Positive Antibody Screen NEGATIVE Crossmatch See Detail 05/28/24 05/28/24 05/28/24 16:07 17:23 20:33 WBC 60.2 H* 64.8 H* RBC 2.53 L 2.59 L Hgb 8.0 L 8.2 L Hct 24.4 L 24.7 L MCV 96.4 95.4 MCH 31.6 31.7 MCHC 32.8 33.2 RDW 17.8 H 17.9 H Plt Count 195 186 MPV 10.7 10.3 Immature Gran % (Auto) Cancelled Cancelled Neut % (Auto) Cancelled Cancelled Lymph % (Auto) Cancelled Cancelled Charles % (Auto) Cancelled Cancelled Eos % (Auto) Cancelled Cancelled Baso % (Auto) Cancelled Cancelled Lymph # (Auto) Cancelled Cancelled Charles # (Auto) Cancelled Cancelled Eos # (Auto) Cancelled Cancelled Baso # (Auto) Cancelled Cancelled Abs Immat Gran (auto) Cancelled Cancelled Absolute Neuts (auto) Cancelled Cancelled Absolute Nucleated RBC 0.020 H 0.000 Nucleated RBC % (auto) 0.0 0.0 Neutrophils % (Manual) 78 H 73 Band Neutrophils % 13 H 15 H Lymphocytes % (Manual) 1 L 1 L Monocytes % (Manual) 1 L 4 Metamyelocytes % 3 6 Myelocytes % 4 1 Abs Neuts (Manual) 54.8 H 57.0 H Lymphocytes # (Manual) 0.6 L 0.6 L Monocytes # (Manual) 0.6 2.6 H Metamyelocytes # 1.8 3.9 Myelocytes # 2.4 0.6 Toxic Granulation Toxic Vacuolation PRESENT PRESENT Platelet Estimate NORMAL NORMAL Plt Morphology Comment NORMAL NORMAL RBC Morphology NOTED NOTED Tear Drop Cells Ovalocytes Bernt Cells 1+ (0-2) 1+ (0-2) Acanthocytes (Spur) Schistocytes 1+ (0-2) 1+ (0-2) Hold Purple Top O2 Saturation ABG pH at Pt Temp ABG pCO2 at Pt Temp ABG pO2 at Pt Temp ABG HCO3 ABG Base Excess (Actual) VBG pH VBG pCO2 VBG pO2 VBG HCO3 VBG O2 Saturation VBG Base Excess Sodium Potassium Chloride Carbon Dioxide Anion Gap BUN Creatinine Estim Creat Clear Calc Estimated GFR POC Glucose 335 H Random Glucose Lactic Acid Lactic Acid F/U @ 2Hr Lactic Acid F/U @ 4Hr Calcium Phosphorus Magnesium Total Bilirubin AST ALT Alkaline Phosphatase Total Protein Albumin Blood Type Antibody Screen Crossmatch 05/28/24 05/28/24 05/28/24 21:06 21:40 21:51 WBC RBC Hgb Hct MCV MCH MCHC RDW Plt Count MPV Immature Gran % (Auto) Neut % (Auto) Lymph % (Auto) Charles % (Auto) Eos % (Auto) Baso % (Auto) Lymph # (Auto) Charles # (Auto) Eos # (Auto) Baso # (Auto) Abs Immat Gran (auto) Absolute Neuts (auto) Absolute Nucleated RBC Nucleated RBC % (auto) Neutrophils % (Manual) Band Neutrophils % Lymphocytes % (Manual) Monocytes % (Manual) Metamyelocytes % Myelocytes % Abs Neuts (Manual) Lymphocytes # (Manual) Monocytes # (Manual) Metamyelocytes # Myelocytes # Toxic Granulation Toxic Vacuolation Platelet Estimate Plt Morphology Comment RBC Morphology Tear Drop Cells Ovalocytes Brent Cells Acanthocytes (Spur) Schistocytes Hold Purple Top O2 Saturation ABG pH at Pt Temp ABG pCO2 at Pt Temp ABG pO2 at Pt Temp ABG HCO3 ABG Base Excess (Actual) VBG pH VBG pCO2 VBG pO2 VBG HCO3 VBG O2 Saturation VBG Base Excess Sodium Potassium Chloride Carbon Dioxide Anion Gap BUN Creatinine Estim Creat Clear Calc Estimated GFR POC Glucose 379 H* 361 H* Random Glucose Lactic Acid 5.1 H* Lactic Acid F/U @ 2Hr Lactic Acid F/U @ 4Hr Calcium Phosphorus Magnesium Total Bilirubin AST ALT Alkaline Phosphatase Total Protein Albumin Blood Type Antibody Screen Crossmatch 05/28/24 05/28/24 05/28/24 22:30 22:36 23:52 WBC RBC Hgb Hct MCV MCH MCHC RDW Plt Count MPV Immature Gran % (Auto) Neut % (Auto) Lymph % (Auto) Charles % (Auto) Eos % (Auto) Baso % (Auto) Lymph # (Auto) Charles # (Auto) Eos # (Auto) Baso # (Auto) Abs Immat Gran (auto) Absolute Neuts (auto) Absolute Nucleated RBC Nucleated RBC % (auto) Neutrophils % (Manual) Band Neutrophils % Lymphocytes % (Manual) Monocytes % (Manual) Metamyelocytes % Myelocytes % Abs Neuts (Manual) Lymphocytes # (Manual) Monocytes # (Manual) Metamyelocytes # Myelocytes # Toxic Granulation Toxic Vacuolation Platelet Estimate Plt Morphology Comment RBC Morphology Tear Drop Cells Ovalocytes Brent Cells Acanthocytes (Spur) Schistocytes Hold Purple Top O2 Saturation 100.0 ABG pH at Pt Temp 7.33 L ABG pCO2 at Pt Temp 26 L ABG pO2 at Pt Temp 114 H ABG HCO3 14 L ABG Base Excess (Actual) -10.2 VBG pH VBG pCO2 VBG pO2 VBG HCO3 VBG O2 Saturation VBG Base Excess Sodium 135 Potassium 3.6 Chloride 109 H Carbon Dioxide 15 L Anion Gap 15 BUN 29 H Creatinine 1.33 Estim Creat Clear Calc 50.5 Estimated GFR 52 POC Glucose 361 H* Random Glucose 399 H* Lactic Acid Lactic Acid F/U @ 2Hr Lactic Acid F/U @ 4Hr Calcium 7.2 L D Phosphorus 2.7 Magnesium 1.5 L Total Bilirubin 0.9 AST 39 H ALT 39 Alkaline Phosphatase 78 Total Protein 5.3 L Albumin 3.0 L Blood Type Antibody Screen Crossmatch 05/29/24 05/29/24 05/29/24 00:00 00:48 01:49 WBC RBC Hgb Hct MCV MCH MCHC RDW Plt Count MPV Immature Gran % (Auto) Neut % (Auto) Lymph % (Auto) Charles % (Auto) Eos % (Auto) Baso % (Auto) Lymph # (Auto) Charles # (Auto) Eos # (Auto) Baso # (Auto) Abs Immat Gran (auto) Absolute Neuts (auto) Absolute Nucleated RBC Nucleated RBC % (auto) Neutrophils % (Manual) Band Neutrophils % Lymphocytes % (Manual) Monocytes % (Manual) Metamyelocytes % Myelocytes % Abs Neuts (Manual) Lymphocytes # (Manual) Monocytes # (Manual) Metamyelocytes # Myelocytes # Toxic Granulation Toxic Vacuolation Platelet Estimate Plt Morphology Comment RBC Morphology Tear Drop Cells Ovalocytes Brent Cells Acanthocytes (Spur) Schistocytes Hold Purple Top O2 Saturation ABG pH at Pt Temp ABG pCO2 at Pt Temp ABG pO2 at Pt Temp ABG HCO3 ABG Base Excess (Actual) VBG pH VBG pCO2 VBG pO2 VBG HCO3 VBG O2 Saturation VBG Base Excess Sodium Potassium Chloride Carbon Dioxide Anion Gap BUN Creatinine Estim Creat Clear Calc Estimated GFR POC Glucose 352 H* 351 H* Random Glucose Lactic Acid Lactic Acid F/U @ 2Hr 5.1 H* Lactic Acid F/U @ 4Hr Calcium Phosphorus Magnesium Total Bilirubin AST ALT Alkaline Phosphatase Total Protein Albumin Blood Type Antibody Screen Crossmatch 05/29/24 05/29/24 05/29/24 02:10 02:55 03:54 WBC 51.5 H* RBC 2.24 L Hgb 7.1 L Hct 21.1 L MCV 94.2 MCH 31.7 MCHC 33.6 RDW 17.8 H Plt Count 133 L D MPV 11.0 Immature Gran % (Auto) Cancelled Neut % (Auto) Cancelled Lymph % (Auto) Cancelled Charles % (Auto) Cancelled Eos % (Auto) Cancelled Baso % (Auto) Cancelled Lymph # (Auto) Cancelled Charles # (Auto) Cancelled Eos # (Auto) Cancelled Baso # (Auto) Cancelled Abs Immat Gran (auto) Cancelled Absolute Neuts (auto) Cancelled Absolute Nucleated RBC 0.000 Nucleated RBC % (auto) 0.0 Neutrophils % (Manual) 73 Band Neutrophils % 24 H Lymphocytes % (Manual) Monocytes % (Manual) Metamyelocytes % 3 Myelocytes % Abs Neuts (Manual) 50.0 H Lymphocytes # (Manual) Monocytes # (Manual) Metamyelocytes # 1.5 Myelocytes # Toxic Granulation PRESENT Toxic Vacuolation PRESENT Platelet Estimate SLIGHTLY DECREASED Plt Morphology Comment NORMAL RBC Morphology NOTED Tear Drop Cells 1+ (0-2) Ovalocytes 1+ (5-14) Halsey Cells Acanthocytes (Spur) 1+ (0-2) Schistocytes Hold Purple Top O2 Saturation ABG pH at Pt Temp ABG pCO2 at Pt Temp ABG pO2 at Pt Temp ABG HCO3 ABG Base Excess (Actual) VBG pH VBG pCO2 VBG pO2 VBG HCO3 VBG O2 Saturation VBG Base Excess Sodium 139 Potassium 2.9 L* Chloride 105 Carbon Dioxide 18 L Anion Gap 19 BUN 27 H Creatinine 1.33 Estim Creat Clear Calc 50.5 Estimated GFR 52 POC Glucose 315 H 313 H Random Glucose 368 H* Lactic Acid 5.9 H* Lactic Acid F/U @ 2Hr Lactic Acid F/U @ 4Hr Calcium 8.0 L D Phosphorus Magnesium Total Bilirubin 0.9 AST 47 H ALT 48 H Alkaline Phosphatase 69 Total Protein 5.7 L Albumin 3.8 Blood Type Antibody Screen Crossmatch 05/29/24 05/29/24 05/29/24 04:36 05:00 05:24 WBC 45.8 H* RBC 2.20 L Hgb 6.8 L* Hct 20.7 L* MCV 94.1 MCH 30.9 MCHC 32.9 RDW 17.6 H Plt Count 116 L MPV 10.9 Immature Gran % (Auto) Neut % (Auto) Lymph % (Auto) Charles % (Auto) Eos % (Auto) Baso % (Auto) Lymph # (Auto) Charles # (Auto) Eos # (Auto) Baso # (Auto) Abs Immat Gran (auto) Absolute Neuts (auto) Absolute Nucleated RBC 0.000 Nucleated RBC % (auto) 0.0 Neutrophils % (Manual) Band Neutrophils % Lymphocytes % (Manual) Monocytes % (Manual) Metamyelocytes % Myelocytes % Abs Neuts (Manual) Lymphocytes # (Manual) Monocytes # (Manual) Metamyelocytes # Myelocytes # Toxic Granulation Toxic Vacuolation Platelet Estimate Plt Morphology Comment RBC Morphology Tear Drop Cells Ovalocytes Brent Cells Acanthocytes (Spur) Schistocytes Hold Purple Top SEE NOTE O2 Saturation ABG pH at Pt Temp ABG pCO2 at Pt Temp ABG pO2 at Pt Temp ABG HCO3 ABG Base Excess (Actual) VBG pH 7.43 VBG pCO2 32 VBG pO2 47 VBG HCO3 21 L VBG O2 Saturation 83.0 VBG Base Excess -1.8 Sodium 141 Potassium 3.8 D Chloride 106 Carbon Dioxide 22 Anion Gap 17 BUN 26 H Creatinine 1.24 Estim Creat Clear Calc 55.0 Estimated GFR 57 POC Glucose 260 H Random Glucose 294 H Lactic Acid Lactic Acid F/U @ 2Hr 5.1 H* Lactic Acid F/U @ 4Hr Calcium 8.3 L Phosphorus Magnesium Total Bilirubin 1.1 H AST 51 H ALT 45 H Alkaline Phosphatase 64 Total Protein 6.2 L Albumin 4.3 Blood Type Antibody Screen Crossmatch 05/29/24 05/29/24 05/29/24 05:54 06:52 07:01 WBC RBC Hgb Hct MCV MCH MCHC RDW Plt Count MPV Immature Gran % (Auto) Neut % (Auto) Lymph % (Auto) Charles % (Auto) Eos % (Auto) Baso % (Auto) Lymph # (Auto) Charles # (Auto) Eos # (Auto) Baso # (Auto) Abs Immat Gran (auto) Absolute Neuts (auto) Absolute Nucleated RBC Nucleated RBC % (auto) Neutrophils % (Manual) Band Neutrophils % Lymphocytes % (Manual) Monocytes % (Manual) Metamyelocytes % Myelocytes % Abs Neuts (Manual) Lymphocytes # (Manual) Monocytes # (Manual) Metamyelocytes # Myelocytes # Toxic Granulation Toxic Vacuolation Platelet Estimate Plt Morphology Comment RBC Morphology Tear Drop Cells Ovalocytes Brent Cells Acanthocytes (Spur) Schistocytes Hold Purple Top O2 Saturation ABG pH at Pt Temp ABG pCO2 at Pt Temp ABG pO2 at Pt Temp ABG HCO3 ABG Base Excess (Actual) VBG pH VBG pCO2 VBG pO2 VBG HCO3 VBG O2 Saturation VBG Base Excess Sodium Potassium Chloride Carbon Dioxide Anion Gap BUN Creatinine Estim Creat Clear Calc Estimated GFR POC Glucose 276 H 245 H Random Glucose Lactic Acid Lactic Acid F/U @ 2Hr Lactic Acid F/U @ 4Hr 4.0 H* Calcium Phosphorus Magnesium Total Bilirubin AST ALT Alkaline Phosphatase Total Protein Albumin Blood Type Antibody Screen Crossmatch 05/29/24 05/29/24 08:08 08:59 WBC RBC Hgb Hct MCV MCH MCHC RDW Plt Count MPV Immature Gran % (Auto) Neut % (Auto) Lymph % (Auto) Charles % (Auto) Eos % (Auto) Baso % (Auto) Lymph # (Auto) Charles # (Auto) Eos # (Auto) Baso # (Auto) Abs Immat Gran (auto) Absolute Neuts (auto) Absolute Nucleated RBC Nucleated RBC % (auto) Neutrophils % (Manual) Band Neutrophils % Lymphocytes % (Manual) Monocytes % (Manual) Metamyelocytes % Myelocytes % Abs Neuts (Manual) Lymphocytes # (Manual) Monocytes # (Manual) Metamyelocytes # Myelocytes # Toxic Granulation Toxic Vacuolation Platelet Estimate Plt Morphology Comment RBC Morphology Tear Drop Cells Ovalocytes Halsey Cells Acanthocytes (Spur) Schistocytes Hold Purple Top O2 Saturation ABG pH at Pt Temp ABG pCO2 at Pt Temp ABG pO2 at Pt Temp ABG HCO3 ABG Base Excess (Actual) VBG pH VBG pCO2 VBG pO2 VBG HCO3 VBG O2 Saturation VBG Base Excess Sodium Potassium Chloride Carbon Dioxide Anion Gap BUN Creatinine Estim Creat Clear Calc Estimated GFR POC Glucose 254 H 240 H Random Glucose Lactic Acid Lactic Acid F/U @ 2Hr Lactic Acid F/U @ 4Hr Calcium Phosphorus Magnesium Total Bilirubin AST ALT Alkaline Phosphatase Total Protein Albumin Blood Type Antibody Screen Crossmatch Microbiology Microbiology Results: Microbiology 05/28/24 01:26 Blood - Venous Blood Culture - Preliminary Gram negative adriane 05/28/24 01:26 Blood - Venous Blood Culture - Preliminary Gram negative adriane Progress Note: A&P Assessment and plan (1) Erlin hematuria: Status: Acute (2) Altered mental status: Status: Acute (3) EDWARD (acute kidney injury): Status: Acute (4) Obstructive uropathy: Status: Acute (5) Acute UTI: Status: Acute Plan 79-year-old male with PMH of multiple sclerosis who is chronically bed-bound with chronic indwelling Nunez catheter, past history of bullous pemphigoid on chronic steroids, mood disorder, mixed hyperlipidemia, hypertension, insulin- dependent diabetes mellitus admitted on 05/28/2028 due to septic shock possibly from cystitis needing vasopressor support. CT abdomen and pelvis done in the ED suggested possible cystitis with mild bilateral hydronephrosis, possible proctocolitis. Neuro: Acute encephalopathy possibly due to metabolic encephalopathy Has history of underlying mood disorder, multiple sclerosis. We will hold home medication baclofen, gabapentin Close neurological status monitoring in the ICU every hour Cardiac: Septic Shock: Possibly secondary to cystitis and urinary tract infection He was on 2 pressors yesterday, this morning vasopressor has been tapered off and Levophed support decreased to .24 mcg per minute, titrate Levophed to keep map above 65 mm Hg GI: We will hold off on tube feeds due to high-risk for aspiration Renal: Hematuria: Secondary to cystitis, hematuria is improving Creatinine normal, possibly would not be able to generate enough creatinine due to low muscle mass. We will closely monitor I's and O's Avoid nephrotoxic medications Heme: Chronic anemia, closely monitor H&H, transfuse for hemoglobin less than 7 grams/deciliter Received 1 units of PRBC transfusion this morning as hemoglobin dropped below 7 Endocrine: Blood sugars under control Sliding scale insulin as needed Infectious disease: Blood cultures growing Gram-negative rods, speciation pending possibly secondary to UTI on Zosyn had Pseudomonas UTI in the past resistant to levofloxacin, has allergic to ertapenem so would not start on meropenem, has history of bullous pemphigoid so would prefer Zosyn for cefepime Musculoskeletal: Decubitus ulcer prevention protocol Lines: TLC placed in the ED on 05/28/2024 Chronic malnutrition: Holding off on tube feeds due to high-risk for aspiration Nutrition needs to be of significant concern once the mental status is better and patient is ready for feeds Prophylaxis: SCD, we will hold Lovenox due to hematuria, pantoprazole Quality Stroke Does the patient have a stroke diagnosis?: No VTE Prior VTE?: No VTE Risk Level:: Medical - low VTE Device Contraindication: N/A - Device Ordered VTE Drug Contraindication: N/A - Med Ordered
[2024-05-29 10:09] LABS: Glucose, Whole Blood 199 mg/dL (60-115)
[2024-05-29 11:14] LABS: Glucose, Whole Blood 175 mg/dL (60-115)
[2024-05-29 12:26] LABS: Glucose, Whole Blood 185 mg/dL (60-115)
[2024-05-29 13:03] LABS: Glucose, Whole Blood 182 mg/dL (60-115)
[2024-05-29 14:05] LABS: Glucose, Whole Blood 184 mg/dL (60-115)
[2024-05-29] MEDS: Norepinephrine Bitartrate/D5W 8 MG/250 ML PLAST..BAG 42 MG IV (14:59)
[2024-05-29 18:06] LABS: Glucose, Whole Blood 193 mg/dL (60-115)
[2024-05-29] MEDS: Norepinephrine Bitartrate/D5W 8 MG/250 ML PLAST..BAG 36 MG IV (20:47)
[2024-05-29 21:08] LABS: Venous Blood Gas Refer to POC result
[2024-05-29 21:12] LABS: PLT CLUMP 1
[2024-05-29 21:14] LABS: Hematocrit 25.3 % (42.0-52.0); Hemoglobin 8.7 g/dl (14.0-18.0); Mean Corpuscular HGB Conc 34.4 g/dl (31.0-36.0); Mean Platelet Volume 10.4 fL (9.4-12.4); Red Blood Count 2.72 X10*6/uL (4.60-5.80); Red Cell Distribution Width 17.2 % (11.0-16.0)
[2024-05-29 21:23] LABS: Alanine Aminotransferase 50 U/L (0-40); Albumin Level 3.7 g/dL (3.5-5.0); Alkaline Phosphatase 98 U/L (39-117); Anion Gap 17 (12-20); Aspartate Amino Transferase 46 U/L (5-37); Blood Urea Nitrogen 25 mg/dL (9-16); Calcium 8.2 mg/dL (8.4-10.2); Carbon Dioxide 21 mmol/L (22-29); Chloride 108 mmol/L (96-108); Creatinine Clr Calc Pharmacy 59.3; Estimated Glomerular Filt Rate > 60; Glucose Random 246 mg/dL (60-115); Sodium 142 mmol/L (135-145); Total Protein 5.8 g/dL (6.5-8.0)
[2024-05-29 21:24] LABS: VBG Base Excess 3.2 mmol/L; VBG HCO3 25 mmol/L (22-26); VBG pCO2 29 mmHg; VBG pH 7.53 (7.32-7.43); VBG pO2 65 mmHg
[2024-05-29 21:47] LABS: WBC ABN SCTR FOR CBC 1
[2024-05-29 21:49] LABS: Platelet Count 111 X10*3/uL (160-400); White Blood Count 48.3 X10*3/uL (4.8-10.8)
[2024-05-29 21:49] LABS: Glucose, Whole Blood 196 mg/dL (60-115)
[2024-05-29] MEDS: Sodium,Potassium Phosphates POWD.PACK 2 PACKET PO (21:55)
[2024-05-29 21:57] LABS: Band Neutrophils Percent 16 % (3-5); Lymphocytes Absolute Manual 1.9 X10*3/uL (1.2-4.9); Lymphocytes Percent Manual 4 % (20-40); Metamyelocytes Absolute 0.5 X10*3/uL; Metamyelocytes Percent 1 %; Monocytes Percent Manual 2 % (2-11); Myelocytes Percent 2 %; Neutrophils Percent Manual 75 % (45-73)
[2024-05-29 22:01] LABS: Burr Cells 1+ (0-2) /OIF; RBC Morphology NOTED
[2024-05-29 22:03] LABS: Ovalocytes 1+ (5-14) /OIF; Schistocytes 1+ (0-2) /OIF
[2024-05-29 22:04] LABS: Dohle Bodies PRESENT; Platelet Estimate SLIGHTLY DECREASED (NORMAL); Platelet Morphology Comment NORMAL; Toxic Vacuolation PRESENT
[2024-05-29 23:50] LABS: Glucose, Whole Blood 211 mg/dL (60-115)
[2024-05-29] MEDS: Insulin Lispro 100 UNIT/ML 3 ML VIAL SUBCUT (23:51)
[2024-05-30] VITALS (49 sets, daily range): BP systolic 83–152; BP diastolic 41–81; PULSE 78–106; RESP 14–25; TEMP 36.2–37.4; O2SAT 90–100; BMI 22.2
[2024-05-30 04:43] LABS: VBG HCO3 27 mmol/L (22-26); VBG pCO2 27 mmHg; VBG pO2 32 mmHg
[2024-05-30] MEDS: Acetaminophen Oral Liquid 650 MG/20.3 ML SOLUTION 975 MG PO (04:44)
[2024-05-30] MEDS: Piperacillin Sodium/Tazobactam 4.5 GM in 0.9 % Sodium Chloride 100 ML IV ×4 (04:48→21:55)
[2024-05-30] MEDS: acetaZOLAMIDE sodium 500 MG VIAL IVPUSH (05:00)
[2024-05-30 05:01] LABS: Hematocrit 23.9 % (42.0-52.0); Hemoglobin 8.1 g/dl (14.0-18.0); Mean Corpuscular HGB Conc 33.9 g/dl (31.0-36.0); Mean Corpuscular Hemoglobin 31.5 pg (27.0-33.0); Mean Platelet Volume 10.9 fL (9.4-12.4); Platelet Count 103 X10*3/uL (160-400); Red Blood Count 2.57 X10*6/uL (4.60-5.80); Red Cell Distribution Width 17.4 % (11.0-16.0)
[2024-05-30 05:08] LABS: White Blood Count 33.2 X10*3/uL (4.8-10.8)
[2024-05-30 05:09] LABS: Venous Blood Gas Refer to POC result
[2024-05-30 05:21] LABS: Band Neutrophils Percent 8 % (3-5); Lymphocytes Absolute Manual 1.3 X10*3/uL (1.2-4.9); Lymphocytes Percent Manual 4 % (20-40); Monocytes Absolute Manual 0.3 X10*3/uL (0.1-1.2); Monocytes Percent Manual 1 % (2-11); Neutrophils Absolute Manual 31.5 X10*3/uL (2.0-8.3); Neutrophils Percent Manual 87 % (45-73); RBC Morphology NOTED
[2024-05-30 05:22] LABS: Platelet Estimate DECREASED (NORMAL); Platelet Morphology Comment NORMAL
[2024-05-30] MEDS: Furosemide 40 MG/4 ML VIAL IVPUSH ×3 (05:22→17:03)
[2024-05-30 05:23] LABS: Ovalocytes 1+ (5-14) /OIF
[2024-05-30 05:24] LABS: Burr Cells 1+ (0-2) /OIF; Spherocytes 2+ (3-5) /OIF
[2024-05-30 05:25] LABS: Alanine Aminotransferase 55 U/L (0-40); Albumin Level 4.1 g/dL (3.5-5.0); Alkaline Phosphatase 138 U/L (39-117); Anion Gap 18 (12-20); Aspartate Amino Transferase 59 U/L (5-37); Bilirubin Total 3.6 mg/dL (0.0-1.0); Blood Urea Nitrogen 20 mg/dL (9-16); Calcium 9.1 mg/dL (8.4-10.2); Carbon Dioxide 21 mmol/L (22-29); Chloride 108 mmol/L (96-108); Creatinine Clr Calc Pharmacy 57.3; Dohle Bodies PRESENT; Estimated Glomerular Filt Rate 59; Glucose Random 160 mg/dL (60-115); Magnesium 1.8 mg/dL (1.6-2.6); Phosphorus 1.9 mg/dL (2.7-4.5); Potassium 4.3 mmol/L (3.3-5.1); Sodium 143 mmol/L (135-145); Total Protein 6.6 g/dL (6.5-8.0); Toxic Granulation PRESENT; Toxic Vacuolation PRESENT
[2024-05-30] MEDS: Potassium Phosphate/NS 15 MMOL/250 ML PLAST..BAG 62.5 MMOL IV ×2 (05:45→08:44)
[2024-05-30] MEDS: Pantoprazole Sodium 40 MG/10 ML VIAL IVPUSH (05:45)
[2024-05-30 05:58] LABS: Glucose, Whole Blood 161 mg/dL (60-115)
[2024-05-30] MEDS: Insulin Lispro 100 UNIT/ML 3 ML VIAL SUBCUT (06:01)
[2024-05-30] MEDS: Enoxaparin Sodium 30 MG/0.3 ML SYRINGE SUBCUT (08:44)
[2024-05-30] MEDS: Magnesium Sulfate/H2O 2 GM/50 ML PIGGYBACK IV (08:44)
[2024-05-30] MEDS: Atorvastatin Calcium 40 MG TABLET PO (08:45)
--- NOTE | 2024-05-30 10:42 | PM.CCPN ---
Subjective Subjective Date of Service: 05/30/24 Interval History: Slowly improving Improvements in mental status, decreasing vasopressor requirement. Leukocytosis improving. Critical Care Time (minutes): 40 Physical Exam Vital Signs: Vital Signs: Last Vital Signs Temp 97.4 F 05/30/24 10:00 Pulse 90 05/30/24 10:17 Resp 14 05/30/24 10:00 BP 142/75 H 05/30/24 10:17 Pulse Ox 96 05/30/24 10:00 O2 Del Method Room Air 05/30/24 10:00 BMI result Body Mass Index 22.2 General: Patient in acute distress, ill appearing and tired appearing Nutritional Appearance: Chronically malnourished and underweight Eyes: appearance normal, both eyes and all related structures; Alignment and Position: alignment normal and position normal Neck: No lymphadenopathy, no thyromegaly Resp: bilateral air entry equal, occasional added sounds present in both lungs Cardio: Regular rate, regular rhythm; Heart sounds: S1 normal heart sound present and S2 normal heart sound present GI: soft, nontender, no guarding, no hepatosplenomegaly : bladder normal to inspection, bladder normal to palpation, no renal angle tenderness Skin: Rashes seen in bilateral lower extremity, toe tip ulcers seen, onychomycosis seen Neuro: oriented to person, oriented to place, oriented to time and moves all extremities Objective Data Labs 05/30/24 04:38 05/30/24 04:38 Labs: Laboratory Results - last 24 hr 05/29/24 05/29/24 05/29/24 11:08 12:14 12:58 WBC RBC Hgb Hct MCV MCH MCHC RDW Plt Count MPV Immature Gran % (Auto) Neut % (Auto) Lymph % (Auto) [place] % (Auto) Eos % (Auto) Baso % (Auto) Lymph # (Auto) [place] # (Auto) Eos # (Auto) Baso # (Auto) Abs Immat Gran (auto) Absolute Neuts (auto) Absolute Nucleated RBC Nucleated RBC % (auto) Neutrophils % (Manual) Band Neutrophils % Lymphocytes % (Manual) Monocytes % (Manual) Metamyelocytes % Myelocytes % Abs Neuts (Manual) Lymphocytes # (Manual) Monocytes # (Manual) Metamyelocytes # Myelocytes # Toxic Granulation Toxic Vacuolation Dohle Bodies Platelet Estimate Plt Morphology Comment RBC Morphology Spherocytes Ovalocytes [place] Cells Schistocytes VBG pH VBG pCO2 VBG pO2 VBG HCO3 VBG O2 Saturation VBG Base Excess Sodium Potassium Chloride Carbon Dioxide Anion Gap BUN Creatinine Estim Creat Clear Calc Estimated GFR POC Glucose 175 H 185 H 182 H Random Glucose Calcium Phosphorus Magnesium Total Bilirubin AST ALT Alkaline Phosphatase Total Protein Albumin 05/29/24 05/29/24 05/29/24 14:00 18:02 20:43 WBC 48.3 H* RBC 2.72 L D Hgb 8.7 L D Hct 25.3 L D MCV 93.0 MCH 32.0 MCHC 34.4 RDW 17.2 H Plt Count 111 L MPV 10.4 Immature Gran % (Auto) Cancelled Neut % (Auto) Cancelled Lymph % (Auto) Cancelled [place] % (Auto) Cancelled Eos % (Auto) Cancelled Baso % (Auto) Cancelled Lymph # (Auto) Cancelled [place] # (Auto) Cancelled Eos # (Auto) Cancelled Baso # (Auto) Cancelled Abs Immat Gran (auto) Cancelled Absolute Neuts (auto) Cancelled Absolute Nucleated RBC 0.020 H Nucleated RBC % (auto) 0.0 Neutrophils % (Manual) 75 H Band Neutrophils % 16 H Lymphocytes % (Manual) 4 L Monocytes % (Manual) 2 Metamyelocytes % 1 Myelocytes % 2 Abs Neuts (Manual) 44.0 H Lymphocytes # (Manual) 1.9 Monocytes # (Manual) 1.0 Metamyelocytes # 0.5 Myelocytes # 1.0 Toxic Granulation Toxic Vacuolation PRESENT Dohle Bodies PRESENT Platelet Estimate SLIGHTLY DECREASED Plt Morphology Comment NORMAL RBC Morphology NOTED Spherocytes Ovalocytes 1+ (5-14) [place] Cells 1+ (0-2) Schistocytes 1+ (0-2) VBG pH VBG pCO2 VBG pO2 VBG HCO3 VBG O2 Saturation VBG Base Excess Sodium 142 Potassium 4.0 Chloride 108 Carbon Dioxide 21 L Anion Gap 17 BUN 25 H Creatinine 1.15 Estim Creat Clear Calc 59.3 Estimated GFR > 60 POC Glucose 184 H 193 H Random Glucose 246 H Calcium 8.2 L Phosphorus 2.0 L Magnesium 2.0 Total Bilirubin 5.0 H AST 46 H ALT 50 H Alkaline Phosphatase 98 Total Protein 5.8 L Albumin 3.7 05/29/24 05/29/24 05/29/24 20:47 21:45 23:47 WBC RBC Hgb Hct MCV MCH MCHC RDW Plt Count MPV Immature Gran % (Auto) Neut % (Auto) Lymph % (Auto) [place] % (Auto) Eos % (Auto) Baso % (Auto) Lymph # (Auto) [place] # (Auto) Eos # (Auto) Baso # (Auto) Abs Immat Gran (auto) Absolute Neuts (auto) Absolute Nucleated RBC Nucleated RBC % (auto) Neutrophils % (Manual) Band Neutrophils % Lymphocytes % (Manual) Monocytes % (Manual) Metamyelocytes % Myelocytes % Abs Neuts (Manual) Lymphocytes # (Manual) Monocytes # (Manual) Metamyelocytes # Myelocytes # Toxic Granulation Toxic Vacuolation Dohle Bodies Platelet Estimate Plt Morphology Comment RBC Morphology Spherocytes Ovalocytes [place] Cells Schistocytes VBG pH 7.53 H VBG pCO2 29 VBG pO2 65 VBG HCO3 25 VBG O2 Saturation 95.0 VBG Base Excess 3.2 Sodium Potassium Chloride Carbon Dioxide Anion Gap BUN Creatinine Estim Creat Clear Calc Estimated GFR POC Glucose 196 H 211 H Random Glucose Calcium Phosphorus Magnesium Total Bilirubin AST ALT Alkaline Phosphatase Total Protein Albumin 05/30/24 05/30/24 05/30/24 04:34 04:38 05:54 WBC 33.2 H* RBC 2.57 L Hgb 8.1 L Hct 23.9 L MCV 93.0 MCH 31.5 MCHC 33.9 RDW 17.4 H Plt Count 103 L MPV 10.9 Immature Gran % (Auto) Cancelled Neut % (Auto) Cancelled Lymph % (Auto) Cancelled [place] % (Auto) Cancelled Eos % (Auto) Cancelled Baso % (Auto) Cancelled Lymph # (Auto) Cancelled [place] # (Auto) Cancelled Eos # (Auto) Cancelled Baso # (Auto) Cancelled Abs Immat Gran (auto) Cancelled Absolute Neuts (auto) Cancelled Absolute Nucleated RBC 0.000 Nucleated RBC % (auto) 0.0 Neutrophils % (Manual) 87 H Band Neutrophils % 8 H Lymphocytes % (Manual) 4 L Monocytes % (Manual) 1 L Metamyelocytes % Myelocytes % Abs Neuts (Manual) 31.5 H Lymphocytes # (Manual) 1.3 Monocytes # (Manual) 0.3 Metamyelocytes # Myelocytes # Toxic Granulation PRESENT Toxic Vacuolation PRESENT Dohle Bodies PRESENT Platelet Estimate DECREASED Plt Morphology Comment NORMAL RBC Morphology NOTED Spherocytes 2+ (3-5) Ovalocytes 1+ (5-14) [place] Cells 1+ (0-2) Schistocytes VBG pH 7.60 H* VBG pCO2 27 VBG pO2 32 VBG HCO3 27 H VBG O2 Saturation 64.0 VBG Base Excess 6.0 Sodium 143 Potassium 4.3 Chloride 108 Carbon Dioxide 21 L Anion Gap 18 BUN 20 H Creatinine 1.19 Estim Creat Clear Calc 57.3 Estimated GFR 59 POC Glucose 161 H Random Glucose 160 H Calcium 9.1 D Phosphorus 1.9 L Magnesium 1.8 Total Bilirubin 3.6 H AST 59 H ALT 55 H Alkaline Phosphatase 138 H Total Protein 6.6 Albumin 4.1 Microbiology Microbiology Results: Microbiology 05/28/24 01:26 Blood - Venous Blood Culture - Preliminary Escherichia coli 05/28/24 01:26 Blood - Venous Blood Culture - Preliminary Escherichia coli 05/28/24 13:24 Urine Catheterized - Nunez Catheter Urine Culture - Final Progress Note: A&P Assessment and plan (1) Severe sepsis: Status: Acute (2) Altered mental status: Status: Acute (3) Multiple sclerosis: Status: Acute (4) EDWARD (acute kidney injury): Status: Acute (5) Obstructive uropathy: Status: Acute (6) Chronic indwelling Nunez catheter: Status: Acute Plan 79-year-old male with PMH of multiple sclerosis who is chronically bed-bound with chronic indwelling Nunez catheter, past history of bullous pemphigoid on chronic steroids, mood disorder, mixed hyperlipidemia, hypertension, insulin-dependent diabetes mellitus admitted on 05/28/2028 due to septic shock possibly from cystitis needing vasopressor support. CT abdomen and pelvis done in the ED suggested possible cystitis with mild bilateral hydronephrosis, possible proctocolitis. Neuro: Acute encephalopathy possibly due to metabolic encephalopathy, improving currently. Has history of underlying mood disorder, multiple sclerosis. We will continue to hold home medication baclofen, gabapentin Close neurological status monitoring in the ICU every hour Cardiac: Septic Shock: Possibly secondary to cystitis and urinary tract infection Vasopressor requirement decreasing, currently only on Levophed 0.08 micrograms/kg per minute titrate Levophed to keep map above 65 mm Hg We will add midodrine to hold the vasomotor tone as patient has labile blood pressures, fluctuating often GI: We will continue to hold off on tube feeds due to high-risk for aspiration Renal: Hematuria: Secondary to cystitis, hematuria is improving Creatinine normal, possibly would not be able to generate enough creatinine due to low muscle mass. We will closely monitor I's and O's Avoid nephrotoxic medications Heme: Chronic anemia, closely monitor H&H, transfuse for hemoglobin less than 7 grams/deciliter Received 1 units of PRBC transfusion this morning as hemoglobin dropped below 7 Endocrine: Blood sugars under control Sliding scale insulin as needed Infectious disease: Blood cultures growing ESBL secondary to UTI. Although the bug is ESBL we will continue Zosyn as he is responding well to the antibiotics; he was on 2 vasopressors earlier coming vasopressors, leukocytosis is also improving. Patient is allergic to ertapenem, has a history of bullous pemphigoid so would be hesitant to start a carbapenem. Musculoskeletal: Decubitus ulcer prevention protocol Lines: TLC placed in the ED on 05/28/2024 Chronic malnutrition: Holding off on tube feeds due to high-risk for aspiration Nutrition needs to be of significant concern once the mental status is better and patient is ready for feeds Prophylaxis: SCD, we will hold Lovenox due to hematuria, pantoprazole Quality Stroke Does the patient have a stroke diagnosis?: No VTE Prior VTE?: No VTE Risk Level:: Medical - low VTE Device Contraindication: N/A - Device Ordered VTE Drug Contraindication: N/A - Med Ordered
[2024-05-30] MEDS: Midodrine HCl 10 MG TABLET PO ×3 (10:47→21:45)
[2024-05-30] MEDS: Norepinephrine Bitartrate/D5W 8 MG/250 ML PLAST..BAG 6 MG IV (10:47)
[2024-05-30 11:50] LABS: Glucose, Whole Blood 144 mg/dL (60-115)
[2024-05-30 12:18] LABS: Alanine Aminotransferase 69 U/L (0-40); Albumin Level 3.9 g/dL (3.5-5.0); Alkaline Phosphatase 160 U/L (39-117); Anion Gap 16 (12-20); Aspartate Amino Transferase 59 U/L (5-37); Bilirubin Total 3.2 mg/dL (0.0-1.0); Blood Urea Nitrogen 19 mg/dL (9-16); Calcium 8.4 mg/dL (8.4-10.2); Carbon Dioxide 24 mmol/L (22-29); Chloride 106 mmol/L (96-108); Creatinine Clr Calc Pharmacy 57.6; Estimated Glomerular Filt Rate > 60; Glucose Random 147 mg/dL (60-115); Potassium 3.2 mmol/L (3.3-5.1); Sodium 143 mmol/L (135-145); Total Protein 6.1 g/dL (6.5-8.0)
[2024-05-30] MEDS: Albumin Human 25 % 100 ML 133.33 ML IV ×2 (13:24→13:56)
[2024-05-30] MEDS: Throat Spray, Medicated 177 ML BOTTLE 1 SPRAY MUCOUS MEM (17:30)
[2024-05-30] MEDS: Artificial Tears 15 ML DROPS 1 DROP EYE-BOTH (17:30)
[2024-05-30 17:36] LABS: Glucose, Whole Blood 115 mg/dL (60-115)
[2024-05-30 19:37] LABS: Alanine Aminotransferase 74 U/L (0-40); Albumin Level 4.4 g/dL (3.5-5.0); Alkaline Phosphatase 217 U/L (39-117); Anion Gap 19 (12-20); Aspartate Amino Transferase 63 U/L (5-37); Bilirubin Total 3.3 mg/dL (0.0-1.0); Blood Urea Nitrogen 18 mg/dL (9-16); Calcium 9.1 mg/dL (8.4-10.2); Carbon Dioxide 23 mmol/L (22-29); Chloride 106 mmol/L (96-108); Creatinine Clr Calc Pharmacy 51.4; Estimated Glomerular Filt Rate 54; Glucose Random 120 mg/dL (60-115); Sodium 145 mmol/L (135-145); Total Protein 6.8 g/dL (6.5-8.0)
[2024-05-30 23:01] LABS: Magnesium 1.8 mg/dL (1.6-2.6); Phosphorus 3.3 mg/dL (2.7-4.5)
[2024-05-30] MEDS: Potassium Chloride/H20 40 MEQ/100 ML PIGGYBACK 100 MEQ IV (23:21)
[2024-05-30] MEDS: amLODIPine Besylate 5 MG TABLET PO (23:23)
[2024-05-30] MEDS: 0.9 % Sodium Chloride Flush 3 ML SYRINGE IVFLUSH ×2 (23:24)
[2024-05-30 23:48] LABS: Glucose, Whole Blood 90 mg/dL (60-115)
[2024-05-31] VITALS (19 sets, daily range): BP systolic 120–152; BP diastolic 48–76; PULSE 94–103; RESP 15–28; TEMP 36.1–36.9; O2SAT 93–99; BMI 21.9
[2024-05-31] MEDS: Piperacillin Sodium/Tazobactam 4.5 GM in 0.9 % Sodium Chloride 100 ML IV (04:16)
[2024-05-31] MEDS: HYDROmorphone HCl 1 MG/ML SYRINGE 0.5 MG IVPUSH (04:24)
[2024-05-31] MEDS: Throat Spray, Medicated 177 ML BOTTLE 1 SPRAY MUCOUS MEM ×3 (04:28→16:58)
[2024-05-31] MEDS: Pantoprazole Sodium 40 MG/10 ML VIAL IVPUSH (05:17)
[2024-05-31 05:42] LABS: Hematocrit 26.1 % (42.0-52.0); Hemoglobin 8.9 g/dl (14.0-18.0); Mean Corpuscular HGB Conc 34.1 g/dl (31.0-36.0); Mean Corpuscular Hemoglobin 31.1 pg (27.0-33.0); Mean Corpuscular Volume 91.3 fL (80.0-98.0); Mean Platelet Volume 10.8 fL (9.4-12.4); Platelet Count 101 X10*3/uL (160-400); Red Blood Count 2.86 X10*6/uL (4.60-5.80); Red Cell Distribution Width 17.3 % (11.0-16.0); White Blood Count 25.3 X10*3/uL (4.8-10.8)
[2024-05-31 05:54] LABS: Alanine Aminotransferase 81 U/L (0-40); Albumin Level 4.3 g/dL (3.5-5.0); Alkaline Phosphatase 290 U/L (39-117); Anion Gap 19 (12-20); Aspartate Amino Transferase 65 U/L (5-37); Bilirubin Total 3.1 mg/dL (0.0-1.0); Blood Urea Nitrogen 18 mg/dL (9-16); Calcium 9.2 mg/dL (8.4-10.2); Carbon Dioxide 21 mmol/L (22-29); Chloride 107 mmol/L (96-108); Estimated Glomerular Filt Rate 50; Glucose Random 90 mg/dL (60-115); Magnesium 1.8 mg/dL (1.6-2.6); Phosphorus 2.5 mg/dL (2.7-4.5); Potassium 3.2 mmol/L (3.3-5.1); Sodium 144 mmol/L (135-145)
[2024-05-31 06:02] LABS: Band Neutrophils Percent 1 % (3-5); Eosinophils Absolute Manual 0.5 X10*3/uL (0.0-0.4); Eosinophils Percent Manual 2 % (0-4); Lymphocytes Absolute Manual 0.8 X10*3/uL (1.2-4.9); Lymphocytes Percent Manual 3 % (20-40); Monocytes Absolute Manual 0.5 X10*3/uL (0.1-1.2); Monocytes Percent Manual 2 % (2-11); Neutrophils Absolute Manual 23.5 X10*3/uL (2.0-8.3); Neutrophils Percent Manual 92 % (45-73)
[2024-05-31 06:03] LABS: Ovalocytes 1+ (5-14) /OIF; Platelet Estimate DECREASED (NORMAL); Platelet Morphology Comment NORMAL; RBC Morphology NOTED; Schistocytes 1+ (0-2) /OIF
[2024-05-31 06:04] LABS: Burr Cells 1+ (0-2) /OIF; Dohle Bodies PRESENT; Target Cells 1+ (5-14) /OIF; Toxic Vacuolation PRESENT
[2024-05-31] MEDS: Potassium Chloride/H20 40 MEQ/100 ML PIGGYBACK 100 MEQ IV (07:46)
[2024-05-31] MEDS: Furosemide 40 MG/4 ML VIAL 20 MG IVPUSH (07:47)
[2024-05-31] MEDS: 0.9 % Sodium Chloride Flush 3 ML SYRINGE IVFLUSH ×3 (07:47→21:44)
[2024-05-31] MEDS: Acetaminophen 325 MG TABLET 650 MG PO (08:01)
[2024-05-31] MEDS: Atorvastatin Calcium 40 MG TABLET PO (08:02)
[2024-05-31] MEDS: amLODIPine Besylate 5 MG TABLET PO (08:02)
[2024-05-31] MEDS: Sodium,Potassium Phosphates POWD.PACK 2 PACKET PO ×2 (08:02→21:43)
--- NOTE | 2024-05-31 09:47 | MHC.CLN ---
PT WITH INCREASED NUTRITION RISK R/T PRESSURE INJURIES PT IS CURRENTLY NPO PENDING SWALLOW EVAL NGT IN PLACE BUT USED ONLY FOR MEDS AT THIS TIME WHEN DIET TO ADVANCE, RECOMMEND ADDING HIGH PROTEIN SUPPLEMENTS TO PROMOTE WOUND HEALING CONSULT RD IF TUBE FEED NEEDED FOLLOWING WITH TEAM SEE ALSO FULL CLINICAL NUTRITION ASSESSMENT
--- NOTE | 2024-05-31 10:14 | P.PNCC_ITS ---
Subjective Subjective Date of Service: 05/31/24 Interval History: 79-year-old gentleman with underlying history of multiple sclerosis, chronically bed bound with neurogenic bladder related chronic Nunez, bullous pemphigoid on chronic steroids, coccygeal decubitus ulcer, diabetes mellitus, BPH, prior history of ESBL organisms admitted on 05/28/2024 with hematuria and septic shock with ESBL E coli bacteremia. Treated with Zosyn with resolution of septic shock. Hospital course further complicated by dysphagia, now status post NG tube placement. No events overnight. Critical Care Time (minutes): 0 Physical Exam 2 Vital Signs: Vital Signs: Last Vital Signs Temp 98.5 F 05/31/24 08:00 Pulse 96 05/31/24 10:00 Resp 15 05/31/24 10:00 BP 120/50 L 05/31/24 10:00 Pulse Ox 93 05/31/24 10:00 O2 Del Method Room Air 05/31/24 10:00 BMI result Body Mass Index 21.9 Const: General: no acute distress, alert (To self) and awake Eyes: Sclerae: sclerae normal EOM: EOMs intact bilaterally Neck: Neck: Yes no lymphadenopathy, Yes trachea midline and Yes supple Resp: Effort & Inspection: normal respiratory effort and no respiratory distress Auscultation: clear to auscultation bilaterally Cardio: Rate: tachycardic Rhythm: regular rhythm Heart sounds: no gallops, no murmurs and no rubs GI: Palpation (GI): Soft to palpation and Other GI palpation findings present ( Nontender) Auscultation: normal bowel sounds Extrem: General: No clubbing, No cyanosis and Yes edema (Trace) Objective Data Labs 05/31/24 05:12 05/31/24 05:12 Labs: Laboratory Results - last 24 hr 05/30/24 05/30/24 05/30/24 11:43 11:47 17:30 WBC RBC Hgb Hct MCV MCH MCHC RDW Plt Count MPV Immature Gran % (Auto) Neut % (Auto) Lymph % (Auto) [place] % (Auto) Eos % (Auto) Baso % (Auto) Lymph # (Auto) [place] # (Auto) Eos # (Auto) Baso # (Auto) Abs Immat Gran (auto) Absolute Neuts (auto) Absolute Nucleated RBC Nucleated RBC % (auto) Neutrophils % (Manual) Band Neutrophils % Lymphocytes % (Manual) Monocytes % (Manual) Eosinophils % (Manual) Abs Neuts (Manual) Lymphocytes # (Manual) Monocytes # (Manual) Eosinophils # (Manual) Toxic Vacuolation Dohle Bodies Platelet Estimate Plt Morphology Comment RBC Morphology Target Cells Ovalocytes [place] Cells Schistocytes Sodium 143 Potassium 3.2 L D Chloride 106 Carbon Dioxide 24 Anion Gap 16 BUN 19 H Creatinine 1.16 Estim Creat Clear Calc 57.6 Estimated GFR > 60 POC Glucose 144 H 115 Random Glucose 147 H Calcium 8.4 D Phosphorus Magnesium Total Bilirubin 3.2 H AST 59 H ALT 69 H Alkaline Phosphatase 160 H Total Protein 6.1 L Albumin 3.9 05/30/24 05/30/24 05/31/24 19:08 23:44 05:12 WBC 25.3 H RBC 2.86 L Hgb 8.9 L Hct 26.1 L MCV 91.3 MCH 31.1 MCHC 34.1 RDW 17.3 H Plt Count 101 L MPV 10.8 Immature Gran % (Auto) Cancelled Neut % (Auto) Cancelled Lymph % (Auto) Cancelled [place] % (Auto) Cancelled Eos % (Auto) Cancelled Baso % (Auto) Cancelled Lymph # (Auto) Cancelled [place] # (Auto) Cancelled Eos # (Auto) Cancelled Baso # (Auto) Cancelled Abs Immat Gran (auto) Cancelled Absolute Neuts (auto) Cancelled Absolute Nucleated RBC 0.000 Nucleated RBC % (auto) 0.0 Neutrophils % (Manual) 92 H Band Neutrophils % 1 L Lymphocytes % (Manual) 3 L Monocytes % (Manual) 2 Eosinophils % (Manual) 2 Abs Neuts (Manual) 23.5 H Lymphocytes # (Manual) 0.8 L Monocytes # (Manual) 0.5 Eosinophils # (Manual) 0.5 H Toxic Vacuolation PRESENT Dohle Bodies PRESENT Platelet Estimate DECREASED Plt Morphology Comment NORMAL RBC Morphology NOTED Target Cells 1+ (5-14) Ovalocytes 1+ (5-14) [place] Cells 1+ (0-2) Schistocytes 1+ (0-2) Sodium 145 144 Potassium 3.0 L 3.2 L Chloride 106 107 Carbon Dioxide 23 21 L Anion Gap 19 19 BUN 18 H 18 H Creatinine 1.30 1.37 Estim Creat Clear Calc 51.4 48.0 Estimated GFR 54 50 POC Glucose 90 Random Glucose 120 H 90 Calcium 9.1 D 9.2 Phosphorus 3.3 2.5 L Magnesium 1.8 1.8 Total Bilirubin 3.3 H 3.1 H AST 63 H 65 H ALT 74 H 81 H Alkaline Phosphatase 217 H 290 H Total Protein 6.8 7.0 Albumin 4.4 4.3 Microbiology Microbiology Results: Microbiology 05/28/24 01:26 Blood - Venous Blood Culture - Preliminary Escherichia coli 05/28/24 01:26 Blood - Venous Blood Culture - Preliminary Escherichia coli 05/28/24 13:24 Urine Catheterized - Nunez Catheter Urine Culture - Final Progress Note: A&P Assessment and plan (1) E coli bacteremia: Status: Acute (2) Multiple sclerosis: Status: Acute (3) Chronic indwelling Nunez catheter: Status: Acute (4) Neurogenic bladder: Status: Acute (5) Decubitus ulcer of coccygeal region, stage 2: Status: Acute Plan Assessment: 79-year-old gentleman with underlying multiple sclerosis essentially bed-bound with chronic indwelling Nunez and prior history of ESBL infections admitted with septic shock with ESBL E coli bacteremia with hospital course further complicated by dysphagia Plan: Neuro: No acute issues. Cardiac: Septic shock resolved, titrated off pressors. Pulmonary: No acute issues. Renal: No acute issues. Endo: No acute issues. GI: No acute issues. ID: [id number] E coli bacteremia responding to Zosyn. Extend that susceptibilities are pending. Continue Zosyn. Heme/Onc: No acute issues. Psych: No acute issues. Miscellaneous: Failed swallow evaluation, now NG tube with tube feeds. Prophylaxis: Heparin Diet: Tube feeds Quality Stroke Does the patient have a stroke diagnosis?: No VTE Prior VTE?: No VTE Risk Level:: Medical - low VTE Device Contraindication: N/A - Device Ordered VTE Drug Contraindication: N/A - Med Ordered
[2024-05-31] MEDS: Piperacillin Sodium/Tazobactam 3.375 GM in 0.9 % Sodium Chloride 50 ML IV ×3 (10:32→21:44)
[2024-05-31 11:15] LABS: Glucose, Whole Blood 84 mg/dL (60-115)
--- NOTE | 2024-05-31 11:21 | P.CDIM_ITS ---
PROVIDER RESPONSE TEXT: To clarify, the appropriate diagnosis supported by the clinical indicators: Moderate QUERY TEXT: PHYSICIAN'S DOCUMENTATION REQUEST Date of Query: 05/31/2024 11:13 AM EDT Patient Name: ANAND POTTS Admit Date: 05/28/2024 Dear Washington Remy MD, A review of the medical record indicates additional documentation may be needed. Please review below and update the documentation accordingly. Documentation includes the diagnosis of malnutrition. ICU progress note dated 05/30 - Chronic malnutrition Clinical nutrition notes: mild depletion muscle mass, thigh/calf Increased nutrition risk R/T pressure injuries. Recommend adding high protein supplements to promote wound healing. If possible, please provide additional specificity regarding the severity of the malnutrition using t he above information: Mild Moderate Severe Other (explain) Clinically unable to determine (explain) Thank you, Мария Priest, CCS, CDIS Use of terms such as suspected, likely, concern for, or probable (associated with a specific diagnosi s that is being evaluated, monitored, or treated as if it exists) are acceptable and can be coded in the inpatient se tting, when documented at the time of discharge. Please use your independent medical judgment in providing your response. THIS QUERY IS PART OF THE PERMANENT MEDICAL RECORD
--- NOTE | 2024-05-31 11:24 | P.CDIM_ITS ---
PROVIDER RESPONSE TEXT: To clarify, the appropriate diagnosis supported by the clinical indicators: Acute QUERY TEXT: PHYSICIAN'S DOCUMENTATION REQUEST Date of Query: 05/31/2024 11:18 AM EDT Patient Name: ANAND POTTS Admit Date: 05/28/2024 Dear Washington Remy MD, A review of the medical record indicates additional documentation may be needed. Please review below and update the documentation accordingly. Clinical Indicators: ICU progress note dated 05/30 - Cardiac: Septic shock: possibly secondary to cystitis and urinary trac t infection. Renal: Hematuria: Secondary to cystitis, hematuria is improving. Creatinine normal. Monitor I & O's Avoid nephrotoxic medications. Clarify which of the following accurately represents the acuity of the Cystitis: Possible options might include: Acute Acute on chronic Chronic Other (explain) Clinically unable to determine (explain) Thank you, Мария Priest, CCS, CDIS Use of terms such as suspected, likely, concern for, or probable (associated with a specific diagnosi s that is being evaluated, monitored, or treated as if it exists) are acceptable and can be coded in the inpatient se tting, when documented at the time of discharge. Please use your independent medical judgment in providing your response. THIS QUERY IS PART OF THE PERMANENT MEDICAL RECORD
--- NOTE | 2024-05-31 14:45 | PC.NURSE ---
pt transferred to 4th floor with chronic carty per
--- NOTE | 2024-05-31 14:48 | MHC.SL.SWA ---
Speech Pathologist Impression: Risk of Aspiration Due to: Medically Fragile Dysphasia Diet Status: Liquid Consistency and Strategies for Safe Swallow: Liquid Intake Recommendation: Mellott Thick Liquid Intake Strategies: Small Sips No Straws Solid Food Consistency: Dietary Recommendations: Grnd/Mech Altered (NDD2) Additional Modifications to Solid Foods: Add sauces and gravies, provide small bites of food. Oral Medication Intake: Crushed with Puree Please contact the pharmacy regarding appropriate crushable or liquid drug formulations that are available whenever modified delivery is recommended. Compensatory Strategies and Precautions to be Taken for Safe Swallow: Sitting Upright (90 deg) Liquids from Cup Small Bites and Sips Alternate Liquids/Solids Supervision While Eating and Drinking for Safe Swallow: Total Assistance (1:1) Foods to Avoid: Tough, difficult to chew solids, too large pieces of food. Swallowing Recommended Treatments: Compens. Strategy Educat. Recommendation for Speech: Inpatient Speech Therapy Comment: Patient presents with mild to moderate oral pharyngeal dysphagia, with consistent c/o pain on swallow at this time, and generalized oral facial weakness noted. Recommend UPGRADE/START diet of Ground/Mechanical (NDD2), with Mellott Thick liquids, pills crushed in puree. Patient presents with generalized weakness and confusion, will need 1-1 feeding at this time. As status improves, diet will likely be able to be advanced, recommended diet is conservative and in part due to c/o throat pain on swallow. Baseline diet is reportedly Regular with thin liquids. DATA INTEGRITY SPECIALIST will follow, re-assess, and, if appropriate, advance diet. MD NICOLAS notified in person, RD by secure text. Frequency/Duration: M-F while inpatient. Date Range for Service Req: Timeline to reassess: PRN Personal Consultant Clinican/Clinical Fellow: No Supervisory Statement: I have reviewed and agree with the student/clinical fellow's documentation: N/A Speech Language Pathologist: Corina Catalan M.A., [facility]TEGR[facility]
--- NOTE | 2024-05-31 15:19 | HO.WOUND ---
Wound Consult: Initial 79yr old? Male admitted to [facility] [place] on 05/28/24 - See progress notes and H&P for detailed history.? Wound consult placed for Coccyx wound POA feet.? Patient agreeable to assessment and photo documentation.? Left Leg Right Leg Bilateral feet and lower legs noted for resurfacing wounds - see photos below - chart review reveal history of BP - Bullous Pemphigoid although the wounds are in various stages of healing and no bulla observed if this is infact BP topical treatment should include topical steroid application and cover to protect wounds from infection. Right Heel - Evidence of previous full thickness injury - intact currently Bilateral Heels red - intact and remains blanchable. Sacrum Etiology: Deep Tissue Injury Present on Admission Measurements: 5cm x 5cm x 0.1cm Wound Bed: nonblanchable maroon red purple tissue - areas of tissue loss Drainage / Odor: None noted at this time Edges: ? poorly defined Meghan wound: ?MASD (Moisture Associated Skin Damage - No Induration, Fluctuance or Warmth noted Pain: Patient reports pain Goals of Treatment: ? Triad to allow for autolytic debridement and moist wound healing foam dressing to protect from friction and moisture Recommendations: 1. Turn and Reposition every 2 hours and as needed for patient comfort.? Use pillows or wedges to support off loading positions. 2. Off Load all bony prominences with use of pillows and heel boots if needed.? Apply Preventative foams where needed. ? 3. Monitor for incontinence and moisture control, use barrier creams when needed for prevention and treatment. 4. Provide adequate and supplemental nutrition.? 5. Order low air loss mattress. 6. When applicable maintain blood glucose levels per Providers order. 7. Sacrum - Off Load Pressure - Cleanse with PH balance spray or wipes, pat dry. ?Apply thin layer of Triad to wound bed. Do not remove all of paste between applications as this may cause further skin damage.? Cover with foam dressing to aid in off loading and protection from friction. 8. Bilateral Feet - Off load in Heel Protector Boots. Gently cleanse with NS, pat dry. Apply topical steroid per provider order, cover with no-stick gauze and gauze wrap. Change daily. Re-consult wound care Nurse for wound deterioration or wound changes.
--- NOTE | 2024-05-31 15:24 | P.EN_ITS ---
Event Note Date of Service: 05/31/24 Event Note: hospitalist accept note hospital d4 79yo chronically bedbound M long-term resident of [facility] with MS, chronic Nunez, hx bullous pemphigoid on chronic steroids, mood disorder, HLD, HTN, DM2 presented with hematuria, became hypotensive and found to have septic shock and so admitted to ICU for pressor support found to have ESBL bacteremia. Pt has hx of bullous pemphigoid possibly provoked by ertapenem and so was treated with Zosyn with improvement; sendout susceptibilities pending septic shock due to ESBL bacteremia - resolved, off norepi drip and now hypertensive requiring amlodipine - continue pip-sterling, ID consult, send out susceptibilties pending, recheck BCx in AM dysphagia - on TFs, [employer] following for failed swallow evaluation septic encephalopathy - resolved anemia of chronic disease - H+H stable bullous pemphigoid - resume chronic prednisone HLD - resume statin HTN - amlodipine DM2 - madison-dose lispro VTE ppx - LMWH dispo - eventual return to LTC In my clinical judgment, the patient requires continued inpatient hospitalization for the following reasons: IV ABX Time Spent With Patient Time: Total time managing care of this patient today ____ minutes.
[2024-05-31 16:34] LABS: Glucose, Whole Blood 135 mg/dL (60-115)
--- NOTE | 2024-05-31 18:44 | PC.NURSE ---
Tube feed order was completed upon transfer to [facility]. Speech saw pt and cleared for ground diet and nectar thick liquids ( see note). Pt refused dinner, ate 0%. Contacted MD regarding leaving the NG tube in -stated to leave in at this time.
[2024-05-31 20:03] LABS: OBS Int Ctl Valid YES; OBS1 POSITIVE (NEGATIVE)
[2024-05-31 23:33] LABS: Glucose, Whole Blood 133 mg/dL (60-115)
[2024-06-01] VITALS: BP 145/78; PULSE 68; RESP 18; TEMP 36.3; O2SAT 98
[2024-06-01] MEDS: Piperacillin Sodium/Tazobactam 3.375 GM in 0.9 % Sodium Chloride 50 ML IV ×4 (03:49→22:38)
[2024-06-01 03:54] VITALS: BP 151/75; PULSE 104; RESP 17; TEMP 36.1; O2SAT 98
[2024-06-01 06:00] VITALS: BMI 22.1
[2024-06-01 06:30] LABS: Glucose, Whole Blood 113 mg/dL (60-115)
[2024-06-01 07:33] LABS: Imm Gran Abs Auto 0.19 X10*3/uL (0.00-0.03); Imm Gran Pct Auto 1.1 % (0.0-0.4); MANUAL DIFF FLAG SCAN; Mean Corpuscular Volume 90.7 fL (80.0-98.0); Mean Platelet Volume 10.4 fL (9.4-12.4); SCAN SMEAR FLAG 1
[2024-06-01 07:37] LABS: Basophils Absolute Auto 0.1 X10*3/uL (0.0-0.2); Basophils Percent Auto 0.3 % (0-2); Eosinophils Absolute Auto 0.2 X10*3/uL (0.0-0.4); Eosinophils Percent Auto 0.9 % (0-4); Hematocrit 32.1 % (42.0-52.0); Lymphocytes Absolute Auto 0.6 X10*3/uL (1.2-4.9); Lymphocytes Percent Auto 3.7 % (20-40); Mean Corpuscular HGB Conc 34.3 g/dl (31.0-36.0); Mean Corpuscular Hemoglobin 31.1 pg (27.0-33.0); Monocytes Absolute Auto 0.5 X10*3/uL (0.1-1.2); Monocytes Percent Auto 3.1 % (2-11); Neutrophils Absolute Auto 15.6 x10*3/uL (2.0-8.3); Neutrophils Percent Auto 90.9 % (45-73); Platelet Count 107 X10*3/uL (160-400); Red Blood Count 3.54 X10*6/uL (4.60-5.80); Red Cell Distribution Width 17.4 % (11.0-16.0); White Blood Count 17.2 X10*3/uL (4.8-10.8)
[2024-06-01 07:42] LABS: Glucose, Whole Blood 126 mg/dL (60-115)
[2024-06-01 08:00] VITALS: BP 132/70; PULSE 109; RESP 20; TEMP 36.5; O2SAT 100
[2024-06-01 08:00] LABS: Anion Gap 24 (12-20); Blood Urea Nitrogen 26 mg/dL (9-16); Calcium 9.9 mg/dL (8.4-10.2); Carbon Dioxide 19 mmol/L (22-29); Chloride 105 mmol/L (96-108); Creatinine Clr Calc Pharmacy 42.9; Estimated Glomerular Filt Rate 44; Glucose Random 129 mg/dL (60-115); Magnesium 1.9 mg/dL (1.6-2.6); Phosphorus 3.9 mg/dL (2.7-4.5); Potassium 3.5 mmol/L (3.3-5.1); Sodium 144 mmol/L (135-145)
[2024-06-01 08:01] LABS: Alanine Aminotransferase 76 U/L (0-40); Alkaline Phosphatase 373 U/L (39-117); Anion Gap 23 (12-20); Aspartate Amino Transferase 47 U/L (5-37); Bilirubin Total 2.8 mg/dL (0.0-1.0); Blood Urea Nitrogen 26 mg/dL (9-16); Calcium 9.9 mg/dL (8.4-10.2); Carbon Dioxide 20 mmol/L (22-29); Chloride 105 mmol/L (96-108); Creatinine Clr Calc Pharmacy 42.9; Estimated Glomerular Filt Rate 44; Glucose Random 129 mg/dL (60-115); Potassium 3.5 mmol/L (3.3-5.1); Sodium 144 mmol/L (135-145); Total Protein 8.3 g/dL (6.5-8.0)
[2024-06-01] MEDS: 0.9 % Sodium Chloride Flush 3 ML SYRINGE IVFLUSH ×2 (08:29→16:16)
[2024-06-01 08:31] VITALS: BP 132/70
[2024-06-01] MEDS: amLODIPine Besylate 5 MG TABLET PO (08:31)
[2024-06-01] MEDS: Atorvastatin Calcium 40 MG TABLET PO (08:31)
[2024-06-01 08:34] LABS: SLIDE REVIEW VERIFIED
[2024-06-01] MEDS: predniSONE 2.5 MG TABLET PO (08:35)
[2024-06-01 11:18] LABS: Glucose, Whole Blood 132 mg/dL (60-115)
[2024-06-01 11:22] VITALS: BP 144/72; PULSE 110; RESP 20; TEMP 36.8; O2SAT 100
[2024-06-01] MEDS: Folic Acid 1 MG TABLET PO (11:54)
--- NOTE | 2024-06-01 12:43 | P.PNIM_ITS ---
Subjective Subjective Date of Service: 06/01/24 Interval History: seen by CONCRETE BOOM OPERATOR, cleared for POs but pt refused still has NG tube denies pain denies dyspnea no fever Review of Systems Review of Systems: Yes all other systems are reviewed and are negative Physical Exam 2 Vital Signs: Vital Signs: Last Vital Signs Temp 98.3 F 06/01/24 11:22 Pulse 110 H 06/01/24 11:22 Resp 20 06/01/24 11:22 BP 144/72 H 06/01/24 11:22 Pulse Ox 100 06/01/24 11:22 O2 Del Method Room Air 06/01/24 11:22 BMI result Body Mass Index 22.1 Gen: in no acute distress HEENT: sclera anicteric, moist mucus membranes, NG tube Neck: supple, L IJ CVC placed 05/27/24 Lungs: clear to auscultation bilaterally Heart: regular, tachycardic, no murmurs Abd: soft, non-tender, non-distended Ext: no edema Skin: warm/well-perfused Neuro: alert and oriented x3, no focal findings Psych: appropriate affect Objective Data Active Medications Acetaminophen (Acetaminophen 325 Mg Tablet) 650 mg PO Q6H PRN PRN Reason: Fever >101 Last Admin: 05/31/24 08:01 Dose: 650 mg Documented By: SHER Amlodipine Besylate (Amlodipine Besylate 5 Mg Tablet) 5 mg PO DAILY [facility]; Protocol Last Admin: 06/01/24 08:31 Dose: 5 mg Documented By: MAGALYS Artificial Tears (Artificial Tears 15 Ml Drops) 1 drop EYE-BOTH Q4H PRN PRN Reason: Dry eyes Last Admin: 05/30/24 17:30 Dose: 1 drop Documented By: OLIVIA Atorvastatin Calcium (Atorvastatin Calcium 40 Mg Tablet) 40 mg PO DAILY [facility] Last Admin: 06/01/24 08:31 Dose: 40 mg Documented By: MAGALYS Bisacodyl (Bisacodyl 10 Mg Supp.Rect) 10 mg [place] DAILY PRN PRN Reason: Constipation Famotidine (Famotidine 20 Mg Tablet) 20 mg PO BID [facility] Folic Acid (Folic Acid 1 Mg Tablet) 1 mg PO SUTUWETHFRSA [facility] Last Admin: 06/01/24 11:54 Dose: 1 mg Documented By: MAGALYS Glucose (Glucose Gel 15 Gm Gel..Gram.) 15 gm PO Q15M PRN; Protocol PRN Reason: per Hypoglycemia Standing Ord. Glucose (Glucose Gel 15 Gm Gel..Gram.) 15 gm PO Q15M PRN; Protocol PRN Reason: per Hypoglycemia Standing Ord. Dextrose (D10) 250 mls @ 750 mls/hr IV Q15M PRN; Protocol PRN Reason: per Hypoglycemia Standing Ord. Dextrose (D10) 250 mls @ 750 mls/hr IV Q30M PRN PRN Reason: BG <70 Piperacillin Sod/Tazobactam (Sod 3.375 gm/ Sodium Chloride) 50 mls @ 100 mls/hr IV Q6H [facility] Last Infusion: 06/01/24 11:54 Dose: Infused Documented By: MAGALYS Insulin Human Lispro (Insulin Lispro 100 Unit/Ml 3 Ml Vial) 0 unit SUBCUT Q6H [facility]; Protocol Last Admin: 06/01/24 11:26 Dose: Not Given Documented By: MAGALYS Non-Admin Reason: No Insulin Coverage Methotrexate (Methotrexate Sodium 2.5 Mg Tablet) 15 mg PO MO [facility] Multi-Ingred Medicated Throat [place] (Throat [place], Medicated 177 Ml Bottle) 1 spray MUCOUS MEM Q2H PRN PRN Reason: Sore throat Last Admin: 05/31/24 16:58 Dose: 1 spray Documented By: YURIY Ondansetron HCl (Ondansetron Hcl 4 Mg/2 Ml Vial) 4 mg IVPUSH Q8H PRN PRN Reason: Nausea Prednisone (Prednisone 2.5 Mg Tablet) 2.5 mg PO DAILY [facility] Last Admin: 06/01/24 08:35 Dose: 2.5 mg Documented By: MAGALYS Sodium Biphosphate/Sodium Phosphate (Sodium Phosphate,[place]-Dibasic 133 Ml Enema) 118 ml [place] DAILY PRN PRN Reason: Constipation Sodium Chloride (0.9 % Sodium Chloride Flush 3 Ml Syringe) 3 ml IVFLUSH QSHIFT [facility] Last Admin: 06/01/24 08:29 Dose: 3 ml Documented By: MAGALYS Triamcinolone Acetonide (Triamcinolone Acet 0.1 % Cream 15 Gm Tube) 1 appl TOPICAL BID [facility]; Protocol Labs 06/01/24 07:24 06/01/24 07:24 Labs: Laboratory Results - last 24 hr 05/28/24 05/31/24 05/31/24 17:23 16:30 19:48 MCV MCH MCHC RDW Plt Count MPV Immature Gran % (Auto) Neut % (Auto) Lymph % (Auto) [place] % (Auto) Eos % (Auto) Baso % (Auto) Lymph # (Auto) [place] # (Auto) Eos # (Auto) Baso # (Auto) Abs Immat Gran (auto) Absolute Neuts (auto) Absolute Nucleated RBC Nucleated RBC % (auto) Smear Tech's Comments Smear Path Review SEE NOTE Anion Gap Estim Creat Clear Calc Estimated GFR POC Glucose 135 H Random Glucose Calcium Phosphorus Magnesium Total Bilirubin AST ALT Alkaline Phosphatase Total Protein Albumin Stool Occult Blood POSITIVE 05/31/24 06/01/24 06/01/24 23:28 06:25 07:24 MCV 90.7 MCH 31.1 MCHC 34.3 RDW 17.4 H Plt Count 107 L MPV 10.4 Immature Gran % (Auto) 1.1 H Neut % (Auto) 90.9 H Lymph % (Auto) 3.7 L [place] % (Auto) 3.1 Eos % (Auto) 0.9 Baso % (Auto) 0.3 Lymph # (Auto) 0.6 L [place] # (Auto) 0.5 Eos # (Auto) 0.2 Baso # (Auto) 0.1 Abs Immat Gran (auto) 0.19 H Absolute Neuts (auto) 15.6 H Absolute Nucleated RBC 0.000 Nucleated RBC % (auto) 0.0 Smear Tech's Comments VERIFIED Smear Path Review Anion Gap 23 H Estim Creat Clear Calc Estimated GFR POC Glucose 133 H 113 Random Glucose Calcium Phosphorus Magnesium Total Bilirubin AST ALT Alkaline Phosphatase Total Protein Albumin Stool Occult Blood 06/01/24 06/01/24 06/01/24 07:24 07:24 07:24 MCV MCH MCHC RDW Plt Count MPV Immature Gran % (Auto) Neut % (Auto) Lymph % (Auto) [place] % (Auto) Eos % (Auto) Baso % (Auto) Lymph # (Auto) [place] # (Auto) Eos # (Auto) Baso # (Auto) Abs Immat Gran (auto) Absolute Neuts (auto) Absolute Nucleated RBC Nucleated RBC % (auto) Smear Tech's Comments Smear Path Review Anion Gap 24 H Estim Creat Clear Calc 42.9 42.9 Estimated GFR 44 44 POC Glucose Random Glucose 129 H Calcium Phosphorus Magnesium Total Bilirubin AST ALT Alkaline Phosphatase Total Protein Albumin Stool Occult Blood 06/01/24 06/01/24 06/01/24 07:24 07:24 07:38 MCV MCH MCHC RDW Plt Count MPV Immature Gran % (Auto) Neut % (Auto) Lymph % (Auto) [place] % (Auto) Eos % (Auto) Baso % (Auto) Lymph # (Auto) [place] # (Auto) Eos # (Auto) Baso # (Auto) Abs Immat Gran (auto) Absolute Neuts (auto) Absolute Nucleated RBC Nucleated RBC % (auto) Smear Tech's Comments Smear Path Review Anion Gap Estim Creat Clear Calc Estimated GFR POC Glucose 126 H Random Glucose 129 H Calcium 9.9 D 9.9 Phosphorus 3.9 Magnesium 1.9 Total Bilirubin 2.8 H AST 47 H ALT 76 H Alkaline Phosphatase 373 H Total Protein 8.3 H Albumin 5.0 Stool Occult Blood 06/01/24 11:13 MCV MCH MCHC RDW Plt Count MPV Immature Gran % (Auto) Neut % (Auto) Lymph % (Auto) [place] % (Auto) Eos % (Auto) Baso % (Auto) Lymph # (Auto) [place] # (Auto) Eos # (Auto) Baso # (Auto) Abs Immat Gran (auto) Absolute Neuts (auto) Absolute Nucleated RBC Nucleated RBC % (auto) Smear Tech's Comments Smear Path Review Anion Gap Estim Creat Clear Calc Estimated GFR POC Glucose 132 H Random Glucose Calcium Phosphorus Magnesium Total Bilirubin AST ALT Alkaline Phosphatase Total Protein Albumin Stool Occult Blood Microbiology Microbiology Results: Microbiology 05/28/24 01:26 Blood Culture - Preliminary Blood - Venous Escherichia coli Gram negative adriane 05/28/24 01:26 Blood Culture - Preliminary Blood - Venous Escherichia coli Gram negative adriane Assessment and Plan (1) Septic shock: Status: Acute Assessment and Plan: d5 79yo chronically bedbound M long-term resident of [facility] with MS, chronic Nunez, hx bullous pemphigoid on chronic steroids, mood disorder, HLD, HTN, DM2 presented with hematuria, became hypotensive and found to have septic shock and so admitted to ICU for pressor support found to have ESBL bacteremia. Pt has hx of bullous pemphigoid possibly provoked by ertapenem and so was treated with Zosyn with improvement; sendout susceptibilities pending septic shock due to ESBL bacteremia - resolved, off norepi drip and now hypertensive; restarted amlodipine - continue pip-sterling, ID consult pending, send out susceptibilties pending, recheck BCx today pending dysphagia - seen by CONCRETE BOOM OPERATOR, cleared for NDD2 solids + nectar liquids; will d/c NGT septic encephalopathy - resolved anemia of chronic disease - H+H stable bullous pemphigoid - resumed chronic prednisone + MTX HLD - resumed statin HTN - amlodipine as above DM2 - [place]-dose lispro VTE ppx - LMWH dispo - eventual return to LTC In my clinical judgment, the patient requires continued inpatient hospitalization for the following reasons: IV ABX Total time managing care of this patient today: 45 minutes. Quality Stroke Does the patient have a stroke diagnosis?: No VTE Prior VTE?: No VTE Risk Level:: Medical - low VTE Device Contraindication: N/A - Device Ordered VTE Drug Contraindication: N/A - Med Ordered
--- NOTE | 2024-06-01 13:29 | MHC.SL.DTX ---
Dysphagia Diet modifications: Last documented Solid diet consistencies: Chopped/Advanced (NDD3) Last documented Liquid consistency: [place] Thick Changes made to current diet?: No Liquid Consistency and Strategies: Liquid Intake Recommendation: Thin Compensatory Strategies for Safe Swallow: Small Sips Compensatory Strategies for Safe Swallow(b): Sitting Upright (90 deg) No Straw Liquids from Cup Small Bites and Sips Alternate Liquids/Solids Rate of Ingestion Change Oral Check Avoid Specific Foods Solid Food Consistency: Dietary Recommendations: Grnd/Mech Altered (NDD2) Additional Modifications to Solids: Continue Ground/Mech Altered (NDD2) Solids and [place]-Thick Liquids. Meds Crushed with Puree. Pt is a 1:1 feed at this time. He was previously Regular Solids and Thin Liquids, but is still away from his baseline. Oral Medication Intake: Crushed with Puree Strategies and Precautions to be Taken for Safe Swallow: Sitting Upright (90 deg) No Straw Liquids from Cup Small Bites and Sips Alternate Liquids/Solids Rate of Ingestion Change Oral Check Avoid Specific Foods Supervision While Eating and/Drinking: Total Assistance (1:1) Foods to Avoid: Tough, difficult to chew solids, too large pieces of food. Swallowing Recommended Treatments: Compens. Strategy Educat. Recommendation for Speech: Inpatient Speech Therapy Comment: Patient presents with mild to moderate oral pharyngeal dysphagia, with consistent c/o pain on swallow at this time, and generalized oral facial weakness noted. Recommend UPGRADE/START diet of Ground/Mechanical (NDD2), with [place] Thick liquids, pills crushed in puree. Patient presents with generalized weakness and confusion, will need 1-1 feeding at this time. As status improves, diet will likely be able to be advanced, recommended diet is conservative and in part due to c/o throat pain on swallow. Baseline diet is reportedly Regular with thin liquids. COMPUTER FORWARDING SYSTEM MARKUP CLERK will follow, re-assess, and, if appropriate, advance diet. RNMD notified in person, RD by secure text. Frequency/Duration: M-F while inpatient. Timeline to reassess: PRN Additional Comments: Treatment: Pt is seen in bed awake and attending to the television. He attempts to communicate but his voice is severely dysphonic. He was not able to write on a page. Per RN, his NG tube was removed this afternoon. He continues to present with dry, bloody scars on his lips and gums. A moistened swab revealed refusal and pink blood tinge after oral cavity sweep. He continues to grimace with presentation of PO. He accepts Thin Liquids via Ice Chips and administered Cup Sips with no overt s/s of aspiration. Pt may benefit from treatment oropharyngeal/esophageal candidiasis as a possible cause to his apparent discomfort with swallowing. Pt not able to control thin liquids in his mouth producing anterior spillage for which a towel was draped over his chest during feeding. Color Matcher Clinican/Clinical Fellow: No Supervisory Statement: I have reviewed and agree with the student/clinical fellow's documentation: N/A Speech Language Pathologist: Lebron De Souza M.A., CCC-COMPUTER FORWARDING SYSTEM MARKUP CLERK
[2024-06-01 16:27] VITALS: BP 167/73; PULSE 103; RESP 18; TEMP 36.3; O2SAT 96
[2024-06-01] MEDS: Mag&Al/Sim/Diphenhyd/Lidocaine 10 ML ORAL.SUSP PO ×2 (17:21→20:43)
[2024-06-01] MEDS: Lactated Ringers 1,000 ML 100 ML IVCONT (17:21)
[2024-06-01 18:29] LABS: Glucose, Whole Blood 197 mg/dL (60-115)
[2024-06-01 19:59] LABS: Glucose, Whole Blood 191 mg/dL (60-115)
[2024-06-01] MEDS: Famotidine 20 MG TABLET PO (20:42)
[2024-06-01] MEDS: Insulin Lispro 100 UNIT/ML 3 ML VIAL SUBCUT (20:43)
[2024-06-01] MEDS: Acetaminophen 325 MG TABLET 650 MG PO (20:44)
[2024-06-01] MEDS: Triamcinolone Acet 0.1 % Cream 15 GM TUBE 1 APPL TOPICAL (20:44)
--- NOTE | 2024-06-01 23:14 | P.CNID_ITS ---
History of Present Illness Data of Consult Service Date: 06/01/24 Requesting physician: Devi Dickerson Primary Care Provider: Get Martin MD HPI Reason for consult: ESBL E coli sepsis He presents weakness and chills. He has some urinary tract hydronephrosis. He has E coli ESBL blood. Review of Systems 2 Review of Systems: Yes Unobtainable due to mental status PMFSH Past Medical History Medical History Steroid dependence EDWARD (acute kidney injury) UTI (urinary tract infection) due to urinary indwelling Nunez catheter Bullous pemphigoid Decubitus ulcer of coccygeal region, stage 2 Acute hypotension Sepsis Aspiration pneumonitis Recurrent UTI (urinary tract infection) Hypotonic neurogenic bladder Lytic lesion of bone on x-ray Wound of foot Anemia Septic shock Shoulder pain Constipation Hematuria Multiple sclerosis Depression Diabetes mellitus type 2 in obese Chronic pain syndrome BPH (benign prostatic hyperplasia) Dehydration Chronic renal failure Urinary tract infection Family History Family History Family/Other Heart attack Father Diabetes Family history: reviewed and not pertinent Surgical History Surgical History Hx of removal of cyst Social History Social History Household Members: Unknown / Unable to assess Household Members Other:: lives at [facility] Housing: [facility] Housing Other:: [facility] Unable to assess alcohol history related to: Unable to respond Alcohol intake: never Comment: pt sedated on vent. Patient Tobacco Use Status: Former Tobacco user Cigarette Packs Per Day: 1 Use of substances other than those prescribed or required for medical reasons: Unable to respond Currently Displaying Signs/Symptoms of Drug Intoxication Withdrawal: No Advance Directives: Yes Advance Directives on File: Yes Advance Directives Date on File: 04/22/24 Do you have a plan to hurt others: Vague Recently lost weight without trying: Unsure Nutrition Risks: Dental problems Poor oral hygiene: Yes service: Yes Current occupational status: retired Meds Allergies Allergy/AdvReac Type Severity Reaction Status Date / Time Benzodiazepines Allergy Unknown UNKNOWN Verified 05/27/24 22:23 [BENZODIAZEPINES] dalfampridine [From AMPYRA] Allergy Unknown UNKNOWN Verified 05/27/24 22:23 duloxetine [From CYMBALTA] Allergy Unknown UNKNOWN Verified 05/27/24 22:23 ezetimibe [From ZETIA] Allergy Unknown UNKNOWN Verified 05/27/24 22:23 niacin [NIACIN] Allergy Unknown UNKNOWN Verified 05/27/24 22:23 pravastatin [PRAVASTATIN] Allergy Unknown UNKNOWN Verified 05/27/24 22:23 [id number] Reductase Allergy Unknown UNKNOWN Verified 05/27/24 22:23 Inhibitor [ARDEOPD-EYS-HFA REDUCTASE INHIBITOR] lorazepam [From ATIVAN] AdvReac Severe EXCESSIVE Verified 05/27/24 22:23 SEDATION doxycycline [DOXYCYCLINE] AdvReac Mild esophogeal Verified 05/27/24 22:23 iritation methylprednisolone AdvReac Mild heartburn Verified 05/27/24 22:23 [From SOLU-MEDROL] ertapenem [From INVANZ] AdvReac Unknown possible Verified 04/11/21 09:47 cause of bullous pemphigoid Active Medications: Current Medications Acetaminophen (Acetaminophen 325 Mg Tablet) 650 mg PO Q6H PRN PRN Reason: Fever >101 Last Admin: 06/01/24 20:44 Dose: 650 mg Amlodipine Besylate (Amlodipine Besylate 5 Mg Tablet) 5 mg PO DAILY [facility]; Protocol Last Admin: 06/01/24 08:31 Dose: 5 mg Artificial Tears (Artificial Tears 15 Ml Drops) 1 drop EYE-BOTH Q4H PRN PRN Reason: Dry eyes Last Admin: 05/30/24 17:30 Dose: 1 drop Atorvastatin Calcium (Atorvastatin Calcium 40 Mg Tablet) 40 mg PO DAILY [facility] Last Admin: 06/01/24 08:31 Dose: 40 mg Bisacodyl (Bisacodyl 10 Mg Supp.Rect) 10 mg [place] DAILY PRN PRN Reason: Constipation Famotidine (Famotidine 20 Mg Tablet) 20 mg PO BID [facility] Last Admin: 06/01/24 20:42 Dose: 20 mg Folic Acid (Folic Acid 1 Mg Tablet) 1 mg PO SUTUWETHFRSA [facility] Last Admin: 06/01/24 11:54 Dose: 1 mg Glucose (Glucose Gel 15 Gm Gel..Gram.) 15 gm PO Q15M PRN; Protocol PRN Reason: per Hypoglycemia Standing Ord. Glucose (Glucose Gel 15 Gm Gel..Gram.) 15 gm PO Q15M PRN; Protocol PRN Reason: per Hypoglycemia Standing Ord. Dextrose (D10) 250 mls @ 750 mls/hr IV Q15M PRN; Protocol PRN Reason: per Hypoglycemia Standing Ord. Dextrose (D10) 250 mls @ 750 mls/hr IV Q30M PRN PRN Reason: BG <70 Piperacillin Sod/Tazobactam (Sod 3.375 gm/ Sodium Chloride) 50 mls @ 100 mls/hr IV Q6H [facility] Last Admin: 06/01/24 22:38 Dose: 100 mls/hr Lactated Ringer's (Lr) 1,000 mls @ 100 mls/hr IVCONT .Q10H [facility] Last Admin: 06/01/24 17:21 Dose: 100 mls/hr Insulin Human Lispro (Insulin Lispro 100 Unit/Ml 3 Ml Vial) 0 unit SUBCUT Q6H [facility]; Protocol Last Admin: 06/01/24 20:43 Dose: 2 unit Lidocaine/Diphenhydr/Alum/Mg/Simeth (Mag&Al/Sim/Diphenhyd/Lidocaine 10 Ml Oral.Susp) 10 ml PO Q4H PRN; Protocol PRN Reason: mouth pain Last Admin: 06/01/24 20:43 Dose: 10 ml Methotrexate (Methotrexate Sodium 2.5 Mg Tablet) 15 mg PO MO [facility] Multi-Ingred Medicated Throat [place] (Throat [place], Medicated 177 Ml Bottle) 1 spray MUCOUS MEM Q2H PRN PRN Reason: Sore throat Last Admin: 05/31/24 16:58 Dose: 1 spray Ondansetron HCl (Ondansetron Hcl 4 Mg/2 Ml Vial) 4 mg IVPUSH Q8H PRN PRN Reason: Nausea Prednisone (Prednisone 2.5 Mg Tablet) 2.5 mg PO DAILY [facility] Last Admin: 06/01/24 08:35 Dose: 2.5 mg Sodium Biphosphate/Sodium Phosphate (Sodium Phosphate,[place]-Dibasic 133 Ml Enema) 118 ml [place] DAILY PRN PRN Reason: Constipation Sodium Chloride (0.9 % Sodium Chloride Flush 3 Ml Syringe) 3 ml IVFLUSH QSHIFT [facility] Last Admin: 06/01/24 16:16 Dose: 3 ml Triamcinolone Acetonide (Triamcinolone Acet 0.1 % Cream 15 Gm Tube) 1 appl TOPICAL BID [facility]; Protocol Last Admin: 06/01/24 20:44 Dose: 1 appl Home Medications ?Medication ?Instructions ?Recorded ?Confirmed ?Last Taken ?Type gabapentin 300 mg capsule 300 mg PO BID@0630,1200 10/09/20 05/28/24 Unknown History metformin 500 mg tablet 500 mg PO BIDWM 10/09/20 05/28/24 Unknown History tramadol 50 mg tablet 50 mg PO BEDTIME PRN moderate to 10/09/20 05/28/24 Unknown History severe pain acetaminophen 325 mg tablet 650 mg PO Q4H PRN pain or fever 03/13/21 05/28/24 Unknown History rosuvastatin 10 mg tablet 10 mg PO DAILY 03/13/21 05/28/24 Unknown History guaifenesin 100 mg/5 mL oral 200 mg PO Q4H PRN Cough 05/19/21 05/28/24 Unknown History liquid (Diabetic Tussin EX) prednisone 2.5 mg tablet 2.5 mg PO DAILY 05/19/21 05/28/24 Unknown History amlodipine 10 mg tablet 10 mg PO DAILY 11/16/23 05/28/24 Unknown History bismuth subsalicylate 262 mg/15 mL 524 mg PO Q8H PRN UPSET 11/16/23 05/28/24 Unknown History oral suspension (Pepto-Bismol) STOMACH/NAUSEA ceramides 1,3,6-II (CeraVe topical 1 appl topical BID Dry Skin 11/16/23 05/28/24 Unknown History cream) docusate sodium 100 mg capsule 100 mg PO BID 11/16/23 05/28/24 Unknown History (Colace) famotidine 20 mg tablet 20 mg PO BID 11/16/23 05/28/24 Unknown History folic acid 1 mg tablet 1 mg PO SUTUWETHFRSA 11/16/23 05/28/24 Unknown History gabapentin 800 mg tablet 800 mg PO BEDTIME 11/16/23 05/28/24 Unknown History insulin glargine-yfgn 100 unit/mL 5 unit subcut BEDTIME 11/16/23 05/28/24 Unknown History subcutaneous solution lactulose 10 gram/15 mL oral 30 ml PO DAILY 11/16/23 05/28/24 Unknown History solution (Enulose) losartan 25 mg tablet 25 mg PO BEDTIME 11/16/23 05/28/24 Unknown History melatonin 5 mg tablet 5 mg PO BEDTIME PRN Insomnia 11/16/23 05/28/24 Unknown History polyethylene glycol 3350 17 17 g PO DAILY 11/16/23 05/28/24 Unknown History gram/dose oral powder (Miralax) sennosides 8.6 mg tablet (senna) 17.2 mg PO BEDTIME 11/16/23 05/28/24 Unknown History zolpidem 6.25 mg tablet,extended 6.25 mg PO BEDTIME 11/16/23 05/28/24 Unknown History release,multiphase methotrexate sodium 2.5 mg tablet 15 mg PO MO 02/25/24 05/28/24 Unknown History bisacodyl 5 mg tablet 5 mg PO DAILY PRN Constipation 03/31/24 05/28/24 Unknown History aspirin 81 mg tablet,delayed 81 mg PO DAILY 04/23/24 05/28/24 Unknown History release bisacodyl 10 mg rectal suppository 10 mg [place] DAILY PRN Constipation 04/23/24 05/28/24 Unknown History bisacodyl 10 mg rectal suppository 10 mg [place] Q3D 04/23/24 05/28/24 Unknown History guaifenesin 600 mg tablet, 600 mg PO Q12H PRN Cold Symptoms 04/23/24 05/28/24 Unknown History extended release 12 hr (Mucinex) sodium phosphates 19 gram-7 118 ml [place] DAILY PRN Constipation 04/23/24 05/28/24 Unknown History gram/118 mL enema (Fleet Enema) triamcinolone acetonide 0.1 % 1 appl topical BID 05/28/24 05/28/24 Unknown History topical cream Physical Exam 2 Vital Signs: Vital Signs: Last Vital Signs Temp 97.4 F 06/01/24 16:27 Pulse 103 H 06/01/24 16:27 Resp 18 06/01/24 16:27 BP 167/73 H 06/01/24 16:27 Pulse Ox 96 06/01/24 16:27 O2 Del Method Room Air 06/01/24 16:27 BMI result Body Mass Index 22.1 Const: General: cooperative HEENT: Head: Yes normal to inspection Face and sinus: Yes normal facial exam Mouth: Normal oral and palatal mucosa present Teeth and gingiva: d entition normal Eyes: General: appearance normal, both eyes and all related structures P upils: Equal, round and reactive pupils present Resp: Effort & Inspection: normal respiratory effort Cardio: Rate: regular rate Rhythm: regular rhythm GI: Palpation (GI): Soft to palpation and nontender : General: Yes no CVA tenderness Back/Spine/Pelvis: Back: no CVA tenderness Skin: General skin exam: no rashes or lesions noted Neuro: General: moves all extremities Cranial nerves: Yes Equal, round and reactive pupils present Extrem: General: Yes normal to inspection Psych: Other: confused Results Labs 06/01/24 07:24 06/01/24 07:24 Labs: Short CBC 06/01/24 Range/Units 07:24 WBC 17.2 H (4.8-10.8) X10*3/uL Hgb 11.0 L D (14.0-18.0) g/dl Hct 32.1 L D (42.0-52.0) % Plt Count 107 L (160-400) X10*3/uL BMP 06/01/24 06/01/24 06/01/24 07:24 07:24 07:24 Sodium 144 144 Potassium 3.5 3.5 Chloride 105 Carbon Dioxide BUN Creatinine Calcium 06/01/24 06/01/24 06/01/24 07:24 07:24 07:24 Sodium Potassium Chloride 105 Carbon Dioxide 20 L 19 L BUN 26 H 26 H Creatinine 1.55 H Calcium 06/01/24 06/01/24 07:24 07:24 Sodium Potassium Chloride Carbon Dioxide BUN Creatinine 1.55 H Calcium 9.9 D 9.9 Liver Function 06/01/24 Range/Units 07:24 Total Bilirubin 2.8 H (0.0-1.0) mg/dL AST 47 H (5-37) U/L ALT 76 H (0-40) U/L Alkaline Phosphatase 373 H (39-117) U/L Albumin 5.0 (3.5-5.0) g/dL Microbiology Microbiology Results: Microbiology 05/28/24 01:26 Blood - Venous Blood Culture - Preliminary Escherichia coli Gram negative adriane 05/28/24 01:26 Blood - Venous Blood Culture - Preliminary Escherichia coli Gram negative adriane 05/28/24 13:24 Urine Catheterized - Nunez Catheter Urine Culture - Final Assessment and Plan (1) Septic shock: Status: Acute (2) E coli bacteremia: Status: Acute Plan Follow Urology Probable change zosyn to merem, 10-14 d IV.
[2024-06-02] VITALS: BP 104/82; PULSE 102; RESP 22; TEMP 36.3; O2SAT 100
[2024-06-02 01:11] LABS: Glucose, Whole Blood 138 mg/dL (60-115)
[2024-06-02 03:20] VITALS: BP 110/85; PULSE 109; RESP 22; TEMP 37; O2SAT 91
[2024-06-02] MEDS: Lactated Ringers 1,000 ML 100 ML IVCONT ×2 (03:37→14:28)
[2024-06-02] MEDS: Piperacillin Sodium/Tazobactam 3.375 GM in 0.9 % Sodium Chloride 50 ML IV ×4 (03:37→22:55)
[2024-06-02 05:30] LABS: Glucose, Whole Blood 146 mg/dL (60-115)
[2024-06-02 06:58] LABS: Hematocrit 29.9 % (42.0-52.0); Hemoglobin 9.9 g/dl (14.0-18.0); Mean Corpuscular HGB Conc 33.1 g/dl (31.0-36.0); Mean Corpuscular Hemoglobin 30.4 pg (27.0-33.0); Mean Corpuscular Volume 91.7 fL (80.0-98.0); Mean Platelet Volume 11.8 fL (9.4-12.4); Red Blood Count 3.26 X10*6/uL (4.60-5.80); Red Cell Distribution Width 17.4 % (11.0-16.0); White Blood Count 11.5 X10*3/uL (4.8-10.8)
[2024-06-02 07:03] LABS: Platelet Count 96 X10*3/uL (160-400)
[2024-06-02 07:05] LABS: Anion Gap 20 (12-20); Blood Urea Nitrogen 32 mg/dL (9-16); Calcium 9.9 mg/dL (8.4-10.2); Carbon Dioxide 18 mmol/L (22-29); Chloride 109 mmol/L (96-108); Creatinine Clr Calc Pharmacy 52.3; Estimated Glomerular Filt Rate 55; Glucose Random 159 mg/dL (60-115); Potassium 3.2 mmol/L (3.3-5.1); Sodium 144 mmol/L (135-145)
[2024-06-02 07:49] LABS: Glucose, Whole Blood 145 mg/dL (60-115)
[2024-06-02 07:50] VITALS: BP 152/81; PULSE 96; RESP 18; TEMP 37.2; O2SAT 94
[2024-06-02 08:09] LABS: Magnesium 1.9 mg/dL (1.6-2.6)
[2024-06-02] MEDS: amLODIPine Besylate 5 MG TABLET PO (09:08)
[2024-06-02] MEDS: Famotidine 20 MG TABLET PO ×2 (09:08→21:19)
[2024-06-02] MEDS: Atorvastatin Calcium 40 MG TABLET PO (09:08)
[2024-06-02] MEDS: 0.9 % Sodium Chloride Flush 3 ML SYRINGE IVFLUSH ×2 (09:11→15:54)
--- NOTE | 2024-06-02 09:44 | MHC.CLN ---
F/U PT WITH INCREASED NUTRITION RISK R/T PRESSURE INJURIES DIET ADVANCED TO GRD M/S WITH NT LIQ PER FOREX TRADER NGT IN PLACE BUT USED ONLY FOR MEDS AT THIS TIME PT REFUSED X2 MEALS EVEN THOUGH CLEARED BY SPEECH TO ADVANCED DIET RECOMMEND ADDING HIGH PROTEIN SUPPLEMENTS TO PROMOTE WOUND HEALING WILL ADD ENSURE MAX BID TO PROVIDE 300KCALS, 60G PROTEIN MONITOR PO INTAKE AND ENCOURAGE SUPPLEMENTS
[2024-06-02] MEDS: Folic Acid 1 MG TABLET PO (10:51)
[2024-06-02] MEDS: Triamcinolone Acet 0.1 % Cream 15 GM TUBE 1 APPL TOPICAL ×2 (10:52→21:20)
[2024-06-02 11:32] LABS: Glucose, Whole Blood 208 mg/dL (60-115)
[2024-06-02 11:43] VITALS: BP 148/78; PULSE 103; RESP 18; TEMP 36.2; O2SAT 100
[2024-06-02] MEDS: Potassium Chloride/H20 10 MEQ/100 ML PIGGYBACK 100 MEQ IV ×4 (12:26→15:54)
[2024-06-02] MEDS: Insulin Lispro 100 UNIT/ML 3 ML VIAL SUBCUT ×3 (12:28→21:19)
--- NOTE | 2024-06-02 12:55 | HO.PM.IMPN ---
Subjective Subjective Date of Service: 06/02/24 Interval History: c/o severe lower lip pain/swelling/crusting Review of Systems Review of Systems: Yes all other systems are reviewed and are negative Physical Exam Vital Signs: Vital Signs: Last Vital Signs Temp 97.2 F 06/02/24 11:43 Pulse 103 H 06/02/24 11:43 Resp 18 06/02/24 11:43 BP 148/78 H 06/02/24 11:43 Pulse Ox 100 06/02/24 11:43 O2 Del Method Room Air 06/02/24 11:43 BMI result Body Mass Index 22.1 Gen: in no acute distress HEENT: sclera anicteric, moist mucus membranes, lower lip with crusted, tender lesions Neck: supple, L IJ CVC placed 05/27/24 Lungs: clear to auscultation bilaterally Heart: regular, tachycardic, no murmurs Abd: soft, non-tender, non-distended Ext: no edema Skin: warm/well-perfused Neuro: alert and oriented x3, no focal findings Psych: appropriate affect Objective Data Active Medications Acetaminophen (Acetaminophen 325 Mg Tablet) 650 mg PO Q6H PRN PRN Reason: Fever >101 Last Admin: 06/01/24 20:44 Dose: 650 mg Documented By: FELIPE Amlodipine Besylate (Amlodipine Besylate 5 Mg Tablet) [address] [facility]; Protocol Last Admin: 06/02/24 09:08 Dose: 5 mg Documented By: IMAN Artificial Tears (Artificial Tears 15 Ml Drops) 1 drop EYE-BOTH Q4H PRN PRN Reason: Dry eyes Last Admin: 05/30/24 17:30 Dose: 1 drop Documented By: OLIVIA Atorvastatin Calcium (Atorvastatin Calcium 40 Mg Tablet) [address] [facility] Last Admin: 06/02/24 09:08 Dose: 40 mg Documented By: IMAN Bisacodyl (Bisacodyl 10 Mg Supp.Rect) 10 mg [place] DAILY PRN PRN Reason: Constipation Famotidine (Famotidine 20 Mg Tablet) [address] [facility] Last Admin: 06/02/24 09:08 Dose: 20 mg Documented By: IMAN Folic Acid (Folic Acid 1 Mg Tablet) [address] [facility] Last Admin: 06/02/24 10:51 Dose: 1 mg Documented By: IMAN Glucose (Glucose Gel 15 Gm Gel..Gram.) 15 gm PO Q15M PRN; Protocol PRN Reason: per Hypoglycemia Standing Ord. Glucose (Glucose Gel 15 Gm Gel..Gram.) 15 gm PO Q15M PRN; Protocol PRN Reason: per Hypoglycemia Standing Ord. Dextrose (D10) 250 mls @ 750 mls/hr IV Q15M PRN; Protocol PRN Reason: per Hypoglycemia Standing Ord. Dextrose (D10) 250 mls @ 750 mls/hr IV Q30M PRN PRN Reason: BG <70 Piperacillin Sod/Tazobactam (Sod 3.375 gm/ Sodium Chloride) 50 mls @ 100 mls/hr IV Q6H [facility] Last Infusion: 06/02/24 11:21 Dose: Infused Documented By: IMAN Lactated Ringer's (Lr) 1,000 mls @ 100 mls/hr IVCONT .Q10H [facility] Last Admin: 06/02/24 03:37 Dose: 100 mls/hr Documented By: FELIPE Potassium Chloride (Potassium Chloride/H20) 10 meq in 100 mls @ 100 mls/hr IV Q1H [facility] Stop: 06/02/24 16:14 Last Admin: 06/02/24 12:26 Dose: 100 mls/hr Documented By: IMAN Acyclovir Sodium 760 mg/ (Sodium Chloride) 265.2 mls @ 265.2 mls/hr IV Q8H [facility] Insulin Human Lispro (Insulin Lispro 100 Unit/Ml 3 Ml Vial) [address] [facility]; Protocol Last Admin: 06/02/24 12:28 Dose: 4 unit Documented By: IMAN Lidocaine/Diphenhydr/Alum/Mg/Simeth (Mag&Al/Sim/Diphenhyd/Lidocaine 10 Ml Oral.Susp) 10 ml PO Q4H PRN; Protocol PRN Reason: mouth pain Last Admin: 06/01/24 20:43 Dose: 10 ml Documented By: FELIPE Comments: mouth pain Methotrexate (Methotrexate Sodium 2.5 Mg Tablet) 15 mg PO MO [facility] Morphine Sulfate (Morphine Sulfate 2 Mg/Ml Cartridge) 2 mg IVPUSH Q3H PRN; Protocol PRN Reason: severe pain Multi-Ingred Medicated Throat [place] (Throat [place], Medicated 177 Ml Bottle) 1 spray MUCOUS MEM Q2H PRN PRN Reason: Sore throat Last Admin: 05/31/24 16:58 Dose: 1 spray Documented By: YURIY Ondansetron HCl (Ondansetron Hcl 4 Mg/2 Ml Vial) 4 mg IVPUSH Q8H PRN PRN Reason: Nausea Prednisone (Prednisone 2.5 Mg Tablet) 2.[address] [facility] Last Admin: 06/02/24 09:12 Dose: Not Given Documented By: IMAN Non-Admin Reason: Unable to Scan Barcode Sodium Biphosphate/Sodium Phosphate (Sodium Phosphate,[place]-Dibasic 133 Ml Enema) 118 ml [place] DAILY PRN PRN Reason: Constipation Sodium Chloride (0.9 % Sodium Chloride Flush 3 Ml Syringe) [address] [facility] Last Admin: 06/02/24 09:11 Dose: 3 ml Documented By: IMAN Triamcinolone Acetonide (Triamcinolone Acet 0.1 % Cream 15 Gm Tube) [address] [facility]; Protocol Last Admin: 06/02/24 10:52 Dose: 1 appl Documented By: IMAN Labs 06/02/24 06:31 06/02/24 06:31 Labs: Laboratory Results - last 24 hr 06/01/24 06/01/24 06/02/24 18:23 19:46 01:07 MCV MCH MCHC RDW Plt Count MPV Absolute Nucleated RBC Nucleated RBC % (auto) Anion Gap Estim Creat Clear Calc Estimated GFR POC Glucose 197 H 191 H 138 H Random Glucose Calcium Magnesium 06/02/24 06/02/24 06/02/24 05:26 06:31 07:13 MCV 91.7 MCH 30.4 MCHC 33.1 RDW 17.4 H Plt Count 96 L MPV 11.8 Absolute Nucleated RBC 0.000 Nucleated RBC % (auto) 0.0 Anion Gap 20 Estim Creat Clear Calc 52.3 Estimated GFR 55 POC Glucose 146 H 145 H Random Glucose 159 H Calcium 9.9 Magnesium 1.9 06/02/24 11:27 MCV MCH MCHC RDW Plt Count MPV Absolute Nucleated RBC Nucleated RBC % (auto) Anion Gap Estim Creat Clear Calc Estimated GFR POC Glucose 208 H Random Glucose Calcium Magnesium Microbiology Microbiology Results: Microbiology 05/28/24 01:26 Blood Culture - Preliminary Blood - Venous Escherichia coli Proteus mirabilis 06/01/24 07:24 Blood Culture - Preliminary Blood - Venous No growth after 24 hours. 06/01/24 07:24 Blood Culture - Preliminary Blood - Venous No growth after 24 hours. 05/28/24 01:26 Blood Culture - Preliminary Blood - Venous Escherichia coli Gram negative adriane Assessment and Plan (1) Septic shock: Status: Acute Assessment and Plan: d6 79yo chronically bedbound M long-term resident of [facility] with MS, chronic Nunez, hx bullous pemphigoid on chronic steroids, mood disorder, HLD, HTN, DM2 presented with hematuria, became hypotensive and found to have septic shock and so admitted to ICU for pressor support found to have ESBL bacteremia. 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; will start acyclovir 10 mg/kg q8h 06/02-; also magic mouthwash; prn morphine for pain hypoK - replete IV dysphagia - seen by SHARED SERVICES AND OUTSOURCING MANAGER, cleared for NDD2 solids + nectar liquids; d/c'ed NGT septic encephalopathy - resolved anemia of chronic disease - H+H stable bullous pemphigoid - resumed chronic prednisone + MTX HLD - resumed statin HTN - amlodipine as above DM2 - [place]-dose lispro VTE ppx - LMWH dispo - eventual return to LTC In my clinical judgment, the patient requires continued inpatient hospitalization for the following reasons: IV ABX, bacteremia Total time managing care of this patient today: 45 minutes. Quality Stroke Does the patient have a stroke diagnosis?: No VTE Prior VTE?: No VTE Risk Level:: Medical - low VTE Device Contraindication: N/A - Device Ordered VTE Drug Contraindication: N/A - Med Ordered
[2024-06-02 15:21] VITALS: BP 154/73; PULSE 111; RESP 20; TEMP 36.1; O2SAT 99
--- NOTE | 2024-06-02 16:09 | MHC.SLORD ---
Speech Language Pathology Order Status: Pt seen by ENVIRONMENTAL LAWYER to provide further education regarding diet recommendations following 05/24 MBSS: nectar thick liquids and chopped/advanced solids. Pt again had thin water in cup and in pitcher at bedside on this date. Pt told this ENVIRONMENTAL LAWYER that she was told she no longer needed to have nectar thick liquids. ENVIRONMENTAL LAWYER attempted to provide education on nectar thick recommendation given aspiration on thin liquids. Pt grew increasingly upset, particularly when she noticed water jug was missing from her tray. ENVIRONMENTAL LAWYER sent [place] to RNs and MD. MD had conversation w/ pt; recommendation to continue w/ nectar thick liquids. ENVIRONMENTAL LAWYER to recommend continued dysphasia tx at next level of care.
--- NOTE | 2024-06-02 16:14 | MHC.SLORD ---
Speech Language Pathology Order Status: Pt seen by OFFICE COORDINATOR RECEPTIONIST to provide further education regarding diet recommendations following 05/24 MBSS: nectar thick liquids and chopped/advanced solids. Pt again had thin water in cup and in pitcher at bedside on this date. Pt told this OFFICE COORDINATOR RECEPTIONIST that she was told she no longer needed to have nectar thick liquids. OFFICE COORDINATOR RECEPTIONIST attempted to provide education on nectar thick recommendation given aspiration on thin liquids. Pt grew increasingly upset, particularly when she noticed water jug was missing from her tray. OFFICE COORDINATOR RECEPTIONIST sent [place] to RNs and MD. MD had conversation w/ pt. Per MD, recommendation is to continue w/ nectar thick liquids. OFFICE COORDINATOR RECEPTIONIST to recommend continued dysphasia tx at next level of care.
[2024-06-02 16:26] LABS: Glucose, Whole Blood 200 mg/dL (60-115)
--- NOTE | 2024-06-02 17:01 | MHC.SL.SWA ---
Risk of Aspiration Due to: Medically Fragile Dysphasia Diet Status: NO CHANGE Liquid Consistency and Strategies for Safe Swallow: Liquid Intake Recommendation: Thin Liquid Intake Strategies: Small Sips Solid Food Consistency: Dietary Recommendations: Grnd/Mech Altered (NDD2) Oral Medication Intake: Crushed with Puree Please contact the pharmacy regarding appropriate crushable or liquid drug formulations that are available whenever modified delivery is recommended. Compensatory Strategies and Precautions to be Taken for Safe Swallow: Sitting Upright (90 deg) No Straw Liquids from Cup Small Bites and Sips Alternate Liquids/Solids Rate of Ingestion Change Oral Check Avoid Specific Foods Supervision While Eating and Drinking for Safe Swallow: Total Assistance (1:1) Swallowing Recommended Treatments: Compens. Strategy Educat. Recommendation for Speech: Inpatient Speech Therapy Comment: Continue Ground/Mech Altered (NDD2) Solids and [place]-Thick Liquids. Meds Crushed with Puree. Pt is a 1:1 feed at this time. He was previously Regular Solids and Thin Liquids, but is still away from his baselined. Commercial Singer Clinican/Clinical Fellow: No Supervisory Statement: I have reviewed and agree with the student/clinical fellow's documentation: N/A Speech Language Pathologist: Pily Keller M.A., CCC-COMMUNITY SERVICE ORGANIZATION DIRECTOR
--- NOTE | 2024-06-02 18:24 | PC.NURSE ---
tolerated 50% po intake for dinner today
[2024-06-02 19:49] VITALS: BP 173/73; PULSE 111; RESP 21; TEMP 36.2; O2SAT 98
[2024-06-02 20:27] LABS: Glucose, Whole Blood 208 mg/dL (60-115)
[2024-06-03] VITALS (11 sets, daily range): BP systolic 134–194; BP diastolic 70–94; PULSE 98–117; RESP 16–20; TEMP 36.1–36.9; O2SAT 94–100; BMI 23.4
[2024-06-03] MEDS: Lactated Ringers 1,000 ML 100 ML IVCONT ×3 (01:18→22:25)
[2024-06-03] MEDS: Piperacillin Sodium/Tazobactam 3.375 GM in 0.9 % Sodium Chloride 50 ML IV ×4 (03:54→22:21)
[2024-06-03] MEDS: Mag&Al/Sim/Diphenhyd/Lidocaine 10 ML ORAL.SUSP PO (03:54)
[2024-06-03 07:33] LABS: Glucose, Whole Blood 164 mg/dL (60-115)
[2024-06-03 08:01] LABS: Anion Gap 16 (12-20); Blood Urea Nitrogen 29 mg/dL (9-16); Carbon Dioxide 16 mmol/L (22-29); Chloride 115 mmol/L (96-108); Creatinine Clr Calc Pharmacy 63.5; Estimated Glomerular Filt Rate > 60; Glucose Random 170 mg/dL (60-115); Magnesium 1.7 mg/dL (1.6-2.6); Potassium 3.1 mmol/L (3.3-5.1); Sodium 144 mmol/L (135-145)
[2024-06-03 08:42] LABS: Calcium 9.6 mg/dL (8.4-10.2)
--- NOTE | 2024-06-03 09:58 | MHC.SLORD ---
Speech Language Pathology Order Status: DRY PLASTERER HELPER attempted to see patient for dysphagia tx this morning. Patient was laying in bed holding covers over his face. Patient shouting, No! turning away and swatting at clinician. Patient refusing to participate in PO trials. Patient had breakfast tray which appeared to be mostly uneaten. He is on a ground diet (NDD2) and nectar thick liquids per DRY PLASTERER HELPER recommendation 06/01. Continue with recommended diet, 1:1 feeding, and aspiration precautions. DRY PLASTERER HELPER will continue to follow to monitor tolerance of modified diet and to re-assess for potential upgrade if/when appropriate.
[2024-06-03] MEDS: 0.9 % Sodium Chloride Flush 3 ML SYRINGE IVFLUSH (10:05)
[2024-06-03] MEDS: Triamcinolone Acet 0.1 % Cream 15 GM TUBE 1 APPL TOPICAL ×2 (10:09→21:45)
--- NOTE | 2024-06-03 10:10 | P.PNIM_ITS ---
Subjective Subjective Date of Service: 06/03/24 Interval History: confused no respiratory distress states lip/mouth pain is better poor oral intake Review of Systems Review of Systems: Yes all other systems are reviewed and are negative Physical Exam 2 Vital Signs: Vital Signs: Last Vital Signs Temp 97.0 F 06/03/24 07:36 Pulse 110 H 06/03/24 07:36 Resp 20 06/03/24 07:36 BP 178/70 H 06/03/24 07:36 Pulse Ox 98 06/03/24 07:36 O2 Del Method Room Air 06/03/24 07:36 BMI result Body Mass Index 23.4 Gen: in no acute distress HEENT: sclera anicteric, moist mucus membranes, lower lip swollen with crusted, tender lesions Neck: supple, L IJ CVC placed 05/27/24 Lungs: clear to auscultation bilaterally Heart: regular, tachycardic, no murmurs Abd: soft, non-tender, non-distended Ext: no edema Skin: warm/well-perfused Neuro: alert and oriented to self + place, moving all extremities Psych: appropriate affect Objective Data Active Medications Acetaminophen (Acetaminophen 325 Mg Tablet) 650 mg PO Q6H PRN PRN Reason: Fever >101 Last Admin: 06/01/24 20:44 Dose: 650 mg Documented By: FELIPE Amlodipine Besylate (Amlodipine Besylate 10 Mg Tablet) 10 mg PO DAILY [facility]; Protocol Last Admin: 06/03/24 10:04 Dose: 10 mg Documented By: YURIY Artificial Tears (Artificial Tears 15 Ml Drops) 1 drop EYE-BOTH Q4H PRN PRN Reason: Dry eyes Last Admin: 05/30/24 17:30 Dose: 1 drop Documented By: OLIVIA Atorvastatin Calcium (Atorvastatin Calcium 40 Mg Tablet) 40 mg PO DAILY [facility] Last Admin: 06/03/24 10:04 Dose: 40 mg Documented By: YURIY Bisacodyl (Bisacodyl 10 Mg Supp.Rect) 10 mg [place] DAILY PRN PRN Reason: Constipation Famotidine (Famotidine 20 Mg Tablet) 20 mg PO BID [facility] Last Admin: 06/03/24 10:04 Dose: 20 mg Documented By: YURIY Folic Acid (Folic Acid 1 Mg Tablet) 1 mg PO SUTUWETHFRSA [facility] Last Admin: 06/02/24 10:51 Dose: 1 mg Documented By: IMAN Glucose (Glucose Gel 15 Gm Gel..Gram.) 15 gm PO Q15M PRN; Protocol PRN Reason: per Hypoglycemia Standing Ord. Glucose (Glucose Gel 15 Gm Gel..Gram.) 15 gm PO Q15M PRN; Protocol PRN Reason: per Hypoglycemia Standing Ord. Dextrose (D10) 250 mls @ 750 mls/hr IV Q15M PRN; Protocol PRN Reason: per Hypoglycemia Standing Ord. Dextrose (D10) 250 mls @ 750 mls/hr IV Q30M PRN PRN Reason: BG <70 Piperacillin Sod/Tazobactam (Sod 3.375 gm/ Sodium Chloride) 50 mls @ 100 mls/hr IV Q6H [facility] Last Admin: 06/03/24 10:04 Dose: 100 mls/hr Documented By: YURIY Lactated Ringer's (Lr) 1,000 mls @ 100 mls/hr IVCONT .Q10H [facility] Last Admin: 06/03/24 01:18 Dose: 100 mls/hr Documented By: FELIPE Acyclovir Sodium 760 mg/ (Sodium Chloride) 265.2 mls @ 265.2 mls/hr IV Q8H [facility] Last Infusion: 06/03/24 05:36 Dose: Infused Documented By: FELIPE Insulin Human Lispro (Insulin Lispro 100 Unit/Ml 3 Ml Vial) 0 unit SUBCUT QIDACHS [facility]; Protocol Last Admin: 06/03/24 09:11 Dose: Not Given Documented By: YURIY Non-Admin Reason: refused breakfast Lidocaine/Diphenhydr/Alum/Mg/Simeth (Mag&Al/Sim/Diphenhyd/Lidocaine 10 Ml Oral.Susp) 10 ml PO Q4H PRN; Protocol PRN Reason: mouth pain Last Admin: 06/03/24 03:54 Dose: 10 ml Documented By: FELIPE Comments: c/o mouth pain Methotrexate (Methotrexate Sodium 2.5 Mg Tablet) 15 mg PO MO [facility] Morphine Sulfate (Morphine Sulfate 2 Mg/Ml Cartridge) 2 mg IVPUSH Q3H PRN; Protocol PRN Reason: severe pain Multi-Ingred Medicated Throat [place] (Throat [place], Medicated 177 Ml Bottle) 1 spray MUCOUS MEM Q2H PRN PRN Reason: Sore throat Last Admin: 05/31/24 16:58 Dose: 1 spray Documented By: YURIY Ondansetron HCl (Ondansetron Hcl 4 Mg/2 Ml Vial) 4 mg IVPUSH Q8H PRN PRN Reason: Nausea Prednisone (Prednisone 2.5 Mg Tablet) 2.5 mg PO DAILY [facility] Last Admin: 06/03/24 10:05 Dose: 2.5 mg Documented By: YURIY Sodium Biphosphate/Sodium Phosphate (Sodium Phosphate,[place]-Dibasic 133 Ml Enema) 118 ml [place] DAILY PRN PRN Reason: Constipation Sodium Chloride (0.9 % Sodium Chloride Flush 3 Ml Syringe) 3 ml IVFLUSH QSHIFT [facility] Last Admin: 06/03/24 10:05 Dose: 3 ml Documented By: YURIY Triamcinolone Acetonide (Triamcinolone Acet 0.1 % Cream 15 Gm Tube) 1 appl TOPICAL BID [facility]; Protocol Last Admin: 06/02/24 21:20 Dose: 1 appl Documented By: FELIPE Labs 06/02/24 06:31 06/03/24 06:19 Labs: Laboratory Results - last 24 hr 06/02/24 06/02/24 06/02/24 11:27 16:22 20:24 Anion Gap Estim Creat Clear Calc Estimated GFR POC Glucose 208 H 200 H 208 H Random Glucose Calcium Magnesium 06/03/24 06/03/24 06:19 07:22 Anion Gap 16 Estim Creat Clear Calc 63.5 Estimated GFR > 60 POC Glucose 164 H Random Glucose 170 H Calcium 9.6 Magnesium 1.7 Microbiology Microbiology Results: Microbiology 06/01/24 07:24 Blood Culture - Preliminary Blood - Venous No growth after 48 hours. 06/01/24 07:24 Blood Culture - Preliminary Blood - Venous No growth after 48 hours. 05/28/24 01:26 Blood Culture - Final Blood - Venous Escherichia coli Proteus mirabilis Pseudomonas aeruginosa 05/28/24 01:26 Blood Culture - Preliminary Blood - Venous Escherichia coli Proteus mirabilis Pseudomonas aeruginosa Assessment and Plan (1) Septic shock: Status: Acute Assessment and Plan: d7 79yo chronically bedbound M long-term resident of [facility] with MS, chronic Nunez, hx bullous pemphigoid on chronic steroids, mood disorder, HLD, HTN, DM2 presented with hematuria, became hypotensive and found to have septic shock and so admitted to ICU for pressor support found to have multi-GNR bacteremia. Pt has hx of bullous pemphigoid possibly provoked by ertapenem and so was treated with Zosyn with improvement; sendout susceptibilities on the E. 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; started acyclovir 10 mg/kg q8h 06/02-; also magic mouthwash; prn morphine for pain hypoK - replete IV, recheck BMP in AM dysphagia - seen by TUBULAR STOCK GLASS BULB MACHINE FORMER, cleared for NDD2 solids + nectar liquids; d/c'ed NGT septic encephalopathy - continue to treat bacteremia anemia of chronic disease - H+H stable bullous pemphigoid - resumed chronic prednisone + MTX HLD - resumed statin HTN - amlodipine as above DM2 - [place]-dose lispro VTE ppx - LMWH dispo - eventual return to LTC In my clinical judgment, the patient requires continued inpatient hospitalization for the following reasons: IV ABX, bacteremia Total time managing care of this patient today: 45 minutes. Quality Stroke Does the patient have a stroke diagnosis?: No VTE Prior VTE?: No VTE Risk Level:: Medical - low VTE Device Contraindication: N/A - Device Ordered VTE Drug Contraindication: N/A - Med Ordered
--- NOTE | 2024-06-03 10:47 | PC.NURSE ---
Addendum entered by Debra Clark RN 06/03/24 14:08: Pt continued to present the same as prev note, refuses vital signs to be taken, refusing care and repositioning. aware and ordered STAT 2.5mg IM zyprexa- gave at 11:55 into R deltoid. Pt still resistive to care until approx 1400 seems to be a bit more calm, still tells you to leave room and can swing at staff at times but able to change and repo pt at this time. Pt refused meals, he tried to grab his food himself, spilled. Staff repeatedly offering to help, refusing. Original Note: Pt being vulgar with staff, refuses PO meds, aware at this time. Tried to instruct pt on medications pt cuts staff off swearing and stating to leave the room
[2024-06-03] MEDS: Potassium Chloride/H20 10 MEQ/100 ML PIGGYBACK 100 MEQ IV ×2 (11:01→12:19)
[2024-06-03 11:11] LABS: Glucose, Whole Blood 152 mg/dL (60-115)
[2024-06-03] MEDS: OLANZapine 10 MG VIAL 2.5 MG IM (11:55)
[2024-06-03 12:56] LABS: Alanine Aminotransferase 39 U/L (0-40); Albumin Level 4.3 g/dL (3.5-5.0); Alkaline Phosphatase 206 U/L (39-117); Aspartate Amino Transferase 20 U/L (5-37); Bilirubin Direct 0.7 mg/dL (0.0-0.5); Bilirubin Total 1.9 mg/dL (0.0-1.0); C Reactive Protein 3.57 mg/dL (< or = 0.50); Total Protein 7.5 g/dL (6.5-8.0)
[2024-06-03 16:17] LABS: Glucose, Whole Blood 142 mg/dL (60-115)
[2024-06-03] MEDS: Famotidine 20 MG TABLET PO (21:48)
[2024-06-03 22:17] LABS: Glucose, Whole Blood 111 mg/dL (60-115)
[2024-06-04] VITALS (7 sets, daily range): BP systolic 124–194; BP diastolic 59–87; PULSE 100–114; RESP 16–20; TEMP 36.3–37; O2SAT 95–100; BMI 22.4
[2024-06-04] MEDS: Labetalol HCL 100 MG/20 ML VIAL 10 MG IVPUSH (00:21)
[2024-06-04] MEDS: 0.9 % Sodium Chloride Flush 3 ML SYRINGE IVFLUSH ×3 (00:25→16:22)
[2024-06-04] MEDS: Piperacillin Sodium/Tazobactam 3.375 GM in 0.9 % Sodium Chloride 50 ML IV ×4 (05:56→21:37)
[2024-06-04 06:19] LABS: Anion Gap 17 (12-20); Blood Urea Nitrogen 23 mg/dL (9-16); Calcium 9.2 mg/dL (8.4-10.2); Carbon Dioxide 15 mmol/L (22-29); Chloride 115 mmol/L (96-108); Creatinine Clr Calc Pharmacy 74.3; Estimated Glomerular Filt Rate > 60; Glucose Random 116 mg/dL (60-115); Magnesium 1.8 mg/dL (1.6-2.6); Potassium 3.1 mmol/L (3.3-5.1); Sodium 144 mmol/L (135-145)
[2024-06-04 07:45] LABS: Glucose, Whole Blood 100 mg/dL (60-115)
[2024-06-04] MEDS: Potassium Chloride/H20 10 MEQ/100 ML PIGGYBACK 100 MEQ IV ×4 (08:15→12:13)
[2024-06-04] MEDS: Triamcinolone Acet 0.1 % Cream 15 GM TUBE 1 APPL TOPICAL ×2 (08:28→21:42)
--- NOTE | 2024-06-04 09:14 | HO.PM.IMPN ---
Subjective Subjective Date of Service: 06/04/24 Interval History: confused, hallucinating became combative yesterday afternoon and again this AM, refusing meds Review of Systems Review of Systems: Yes Unobtainable due to mental status Physical Exam Vital Signs: Vital Signs: Last Vital Signs Temp 97.6 F 06/04/24 08:00 Pulse 109 H 06/04/24 08:00 Resp 20 06/04/24 08:00 BP 152/78 H 06/04/24 08:00 Pulse Ox 100 06/04/24 08:00 O2 Del Method Room Air 06/04/24 08:00 BMI result Body Mass Index 22.4 Gen: confused, hallucinating HEENT: sclera anicteric, moist mucus membranes, lower lip swollen with crusted, tender lesions Neck: supple, L IJ CVC placed 05/27/24 Lungs: clear to auscultation bilaterally Heart: regular, tachycardic, no murmurs Abd: soft, non-tender, non-distended Ext: no edema Skin: warm/well-perfused Neuro: alert, disoriented Psych: impaired insight Objective Data Active Medications Acetaminophen (Acetaminophen 325 Mg Tablet) 650 mg PO Q6H PRN PRN Reason: Fever >101 Last Admin: 06/01/24 20:44 Dose: 650 mg Documented By: FELIPE Amlodipine Besylate (Amlodipine Besylate 10 Mg Tablet) 10 mg PO DAILY [facility]; Protocol Last Admin: 06/04/24 08:29 Dose: Not Given Documented By: ARNULFO Non-Admin Reason: Patient Refused Artificial Tears (Artificial Tears 15 Ml Drops) 1 drop EYE-BOTH Q4H PRN PRN Reason: Dry eyes Last Admin: 05/30/24 17:30 Dose: 1 drop Documented By: OLIVIA Atorvastatin Calcium (Atorvastatin Calcium 40 Mg Tablet) 40 mg PO DAILY [facility] Last Admin: 06/04/24 08:29 Dose: Not Given Documented By: ARNULFO Non-Admin Reason: Patient Refused Bisacodyl (Bisacodyl 10 Mg Supp.Rect) 10 mg CO DAILY PRN PRN Reason: Constipation Famotidine (Famotidine 20 Mg Tablet) 20 mg PO BID [facility] Last Admin: 06/04/24 08:29 Dose: Not Given Documented By: ARNULFO Non-Admin Reason: Patient Refused Folic Acid (Folic Acid 1 Mg Tablet) 1 mg PO SUTUWETHFRSA [facility] Last Admin: 06/03/24 10:11 Dose: Not Given Documented By: YURIY Non-Admin Reason: Patient Refused Glucose (Glucose Gel 15 Gm Gel..Gram.) 15 gm PO Q15M PRN; Protocol PRN Reason: per Hypoglycemia Standing Ord. Glucose (Glucose Gel 15 Gm Gel..Gram.) 15 gm PO Q15M PRN; Protocol PRN Reason: per Hypoglycemia Standing Ord. Dextrose (D10) 250 mls @ 750 mls/hr IV Q15M PRN; Protocol PRN Reason: per Hypoglycemia Standing Ord. Dextrose (D10) 250 mls @ 750 mls/hr IV Q30M PRN PRN Reason: BG <70 Piperacillin Sod/Tazobactam (Sod 3.375 gm/ Sodium Chloride) 50 mls @ 100 mls/hr IV Q6H [facility] Last Infusion: 06/04/24 06:35 Dose: Infused Documented By: BERNARDINO Lactated Ringer's (Lr) 1,000 mls @ 100 mls/hr IVCONT .Q10H [facility] Last Admin: 06/03/24 22:25 Dose: 100 mls/hr Documented By: BERNARDINO Acyclovir Sodium 760 mg/ (Sodium Chloride) 265.2 mls @ 265.2 mls/hr IV Q8H [facility] Last Infusion: 06/04/24 07:46 Dose: Infused Documented By: ARNULFO Potassium Chloride (Potassium Chloride/H20) 10 meq in 100 mls @ 100 mls/hr IV Q1H [facility] Stop: 06/04/24 11:59 Last Admin: 06/04/24 08:15 Dose: 100 mls/hr Documented By: ARNULFO Insulin Human Lispro (Insulin Lispro 100 Unit/Ml 3 Ml Vial) 0 unit SUBCUT QIDACHS [facility]; Protocol Last Admin: 06/04/24 08:02 Dose: Not Given Documented By: ARNULFO Non-Admin Reason: No Insulin Coverage Lidocaine/Diphenhydr/Alum/Mg/Simeth (Mag&Al/Sim/Diphenhyd/Lidocaine 10 Ml Oral.Susp) 10 ml PO Q4H PRN; Protocol PRN Reason: mouth pain Last Admin: 06/03/24 03:54 Dose: 10 ml Documented By: FELIPE Comments: c/o mouth pain Methotrexate (Methotrexate Sodium 2.5 Mg Tablet) 15 mg PO MO [facility] Morphine Sulfate (Morphine Sulfate 2 Mg/Ml Cartridge) 2 mg IVPUSH Q3H PRN; Protocol PRN Reason: severe pain Multi-Ingred Medicated Throat [place] (Throat [place], Medicated 177 Ml Bottle) 1 spray MUCOUS MEM Q2H PRN PRN Reason: Sore throat Last Admin: 05/31/24 16:58 Dose: 1 spray Documented By: YURIY Ondansetron HCl (Ondansetron Hcl 4 Mg/2 Ml Vial) 4 mg IVPUSH Q8H PRN PRN Reason: Nausea Prednisone (Prednisone 2.5 Mg Tablet) 2.5 mg PO DAILY [facility] Last Admin: 06/04/24 08:29 Dose: Not Given Documented By: ARNULFO Non-Admin Reason: Patient Refused Sodium Biphosphate/Sodium Phosphate (Sodium Phosphate,[place]-Dibasic 133 Ml Enema) 118 ml CO DAILY PRN PRN Reason: Constipation Sodium Chloride (0.9 % Sodium Chloride Flush 3 Ml Syringe) 3 ml IVFLUSH QSHIFT [facility] Last Admin: 06/04/24 08:30 Dose: 3 ml Documented By: ARNULFO Triamcinolone Acetonide (Triamcinolone Acet 0.1 % Cream 15 Gm Tube) 1 appl TOPICAL BID [facility]; Protocol Last Admin: 06/04/24 08:28 Dose: 1 appl Documented By: ARNULFO Labs 06/02/24 06:31 06/04/24 05:40 Labs: Laboratory Results - last 24 hr 06/03/24 06/03/24 06/03/24 06:19 11:07 16:14 Hold Purple Top Anion Gap Estim Creat Clear Calc Estimated GFR POC Glucose 152 H 142 H Random Glucose Calcium Phosphorus Magnesium Total Bilirubin 1.9 H Direct Bilirubin 0.7 H AST 20 ALT 39 Alkaline Phosphatase 206 H C-Reactive Protein 3.57 H Total Protein 7.5 Albumin 4.3 06/03/24 06/04/24 06/04/24 21:42 05:40 07:33 Hold Purple Top SEE NOTE Anion Gap 17 Estim Creat Clear Calc 74.3 Estimated GFR > 60 POC Glucose 111 100 Random Glucose 116 H Calcium 9.2 Phosphorus 3.0 Magnesium 1.8 Total Bilirubin Direct Bilirubin AST ALT Alkaline Phosphatase C-Reactive Protein Total Protein Albumin Microbiology Microbiology Results: Microbiology 06/01/24 07:24 Blood Culture - Preliminary Blood - Venous No growth after 48 hours. 06/01/24 07:24 Blood Culture - Preliminary Blood - Venous No growth after 48 hours. 05/28/24 01:26 Blood Culture - Final Blood - Venous Escherichia coli Proteus mirabilis Pseudomonas aeruginosa 05/28/24 01:26 Blood Culture - Preliminary Blood - Venous Escherichia coli Proteus mirabilis Pseudomonas aeruginosa Assessment and Plan (1) Septic shock: Status: Acute Assessment and Plan: d8 79yo chronically bedbound M long-term resident of [facility] with MS, chronic Nunez, hx bullous pemphigoid on chronic steroids, mood disorder, HLD, HTN, DM2 presented with hematuria, became hypotensive and found to have septic shock and so admitted to ICU for pressor support found to have polymicrobial GNR bacteremia. Pt has hx of bullous pemphigoid possibly provoked by ertapenem and so was treated with Zosyn with improvement; sendout susceptibilities on the E. 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; started acyclovir 10 mg/kg q8h 06/02-; also magic mouthwash; prn morphine for pain hypoK - replete IV, recheck BMP in AM dysphagia - seen by [employer] OPERATOR HELPER, cleared for NDD2 solids + nectar liquids; d/c'ed NGT anemia of chronic disease - H+H stable bullous pemphigoid - resumed chronic prednisone + MTX HLD - resumed statin HTN - amlodipine as above DM2 - [place]-dose lispro VTE ppx - LMWH dispo - eventual return to LTC In my clinical judgment, the patient requires continued inpatient hospitalization for the following reasons: IV ABX, bacteremia Total time managing care of this patient today: 50 minutes. Quality Stroke Does the patient have a stroke diagnosis?: No VTE Prior VTE?: No VTE Risk Level:: Medical - low VTE Device Contraindication: N/A - Device Ordered VTE Drug Contraindication: N/A - Med Ordered
[2024-06-04] MEDS: OLANZapine 10 MG VIAL 5 MG IM (10:24)
[2024-06-04] MEDS: Lactated Ringers 1,000 ML 100 ML IVCONT (11:32)
--- NOTE | 2024-06-04 11:40 | PC.NURSE ---
Pt being combative with staff, punching/hitting, and swearing. Pt refusing to take PO meds. notified. Pt given IM zyprexa per JAN. Pt still agitated, pulling at equipment, attempting to pull out IVs, and remove tele monitor. Order obtained for 1:1 sitter. Sitter at bedside with positive effect. IVs wrapped and secured. Tele monitor in place. No other concerns at this time.
[2024-06-04 12:06] LABS: Glucose, Whole Blood 104 mg/dL (60-115)
--- NOTE | 2024-06-04 13:33 | MHC.SL.SWA ---
Speech Pathologist Impression: Risk of Aspiration Due to: Medically Fragile Dysphasia Diet Status: Recommend patient continue on current diet of Ground Mechanical Altered, (NDD2), [place] Thick liquids, pills crushed in puree, 1-1 feed, frequent oral checks (patient may pocket food) alternate liquids/solids. Liquid Consistency and Strategies for Safe Swallow: Liquid Intake Recommendation: Zillah Thick Liquid Intake Strategies: Small Sips Solid Food Consistency: Dietary Recommendations: Grnd/Mech Altered (NDD2) Additional Modifications to Solid Foods: 1-1 feed, frequent oral checks (patient may pocket food) alternate liquids/solids. Blend ground solids with gravies and purees. Oral Medication Intake: Crushed with Puree Please contact the pharmacy regarding appropriate crushable or liquid drug formulations that are available whenever modified delivery is recommended. Compensatory Strategies and Precautions to be Taken for Safe Swallow: Sitting Upright (90 deg) No Straw Liquids from Cup Small Bites and Sips Alternate Liquids/Solids Rate of Ingestion Change Oral Check Avoid Specific Foods Supervision While Eating and Drinking for Safe Swallow: Total Assistance (1:1) Foods to Avoid: Swallowing Recommended Treatments: Compens. Strategy Educat. Recommendation for Speech: Inpatient Speech Therapy Comment: Patient seen at lunch with DELIVERY RECRUITER from ICU present and feeding patient. Patient had dried blood, scabrous lower lip, with source of this issue unclear (DELIVERY RECRUITER reported not from biting his lip). Patient stated when asked that his throat no longer hurts/not painful to swallow. Patient audibly communicating today, however often incoherent, evidenced visual hallucinations as he was repeatedly talking about seeing a metronome moving back and forth, pointing at it as he commented on it. Patient was given tsp of nectar thick milk, contained the bolus well, noted to have mild delay of swallow and reduced laryngeal elevation on swallow. When offered as cup sip, patient refused, batted cup away. Patient was given bites of the ground chicken in gravy, was noted to munch and chew on this consistency for prolonged time, after swallow evidenced residual in mouth which was cleared by spoon sip of liquid. DELIVERY RECRUITER noted patient had evidenced a preference for mashed potatoes, had refused the chicken with him. Recommend patient continue on current diet of Ground Mechanical Altered, NDD2, Zill[place] Thick liquids, pills crushed in puree, 1-1 feed, frequent oral checks (patient may pocket food) alternate liquids/solids. Frequency/Duration: M-F while inpatient. Date Range for Service Req: Timeline to reassess: PRN [employer] Special Education Teacher Clinican/Clinical Fellow: No Supervisory Statement: I have reviewed and agree with the student/clinical fellow's documentation: N/A Speech Language Pathologist: Corina Catalan M.A., CCC-ROBOTICS ENGINEER
--- NOTE | 2024-06-04 13:42 | MHC.CLN ---
F/U NUTRITION CONSULT FOR MOUTH SORES/DIFFICULTY EATING. TREATMENTS ADDED FOR ORAL LESIONS: ACYCLOVIR, MAGIC MOUTHWASH, PRN MORPHINE. DIET=GROUND WITH NECTAR THICK LIQUIDS. SUPPLEMENT ENSURE MAX BID TO PROMOTE WOUND HEALING. SUPPLEMENT PROVIDES 300 KCALS, 60 G PROTEIN. SKIN WITH DTI TO COCCYX. INTAKE 0-50%. MONITOR PO INTAKE AND ENCOURAGE SUPPLEMENTS.
--- NOTE | 2024-06-04 14:56 | MHC.CM.PN ---
EMR reviewed and per MD rounds, pt is not medically cleared for discharge due to management of bacteremia requiring IV abx.
[2024-06-04 16:15] LABS: Glucose, Whole Blood 193 mg/dL (60-115)
[2024-06-04] MEDS: Insulin Lispro 100 UNIT/ML 3 ML VIAL SUBCUT ×2 (16:22→21:37)
[2024-06-04 20:26] LABS: Glucose, Whole Blood 234 mg/dL (60-115)
[2024-06-04] MEDS: QUEtiapine Fumarate 25 MG TABLET PO (21:37)
[2024-06-04] MEDS: Famotidine 20 MG TABLET PO (21:37)
--- NOTE | 2024-06-05 | ECG_ITS ---
Test Reason : chest pain Blood Pressure : / mmHG Vent. Rate : 108 BPM Atrial Rate : 108 BPM P-R Int : 130 ms QRS Dur : 096 ms QT Int : 394 ms P-R-T Axes : 046 034 -08 degrees QTc Int : 527 ms Artifact in tracing Sinus tachycardia with frequent Premature ventricular complexes Nonspecific ST and T wave abnormality Abnormal ECG When compared with ECG of 28-MAY-2024 03:42, Premature ventricular complexes are now Present ST no longer depressed in Lateral leads Referred By: Devi Dickerson Electronically Signed By:JOSEP SHARIF
[2024-06-05] MEDS: Lactated Ringers 1,000 ML 100 ML IVCONT ×3 (01:03→21:57)
[2024-06-05] MEDS: 0.9 % Sodium Chloride Flush 3 ML SYRINGE IVFLUSH ×3 (01:04→14:26)
[2024-06-05 03:20] VITALS: BP 150/65; PULSE 99; RESP 18; TEMP 36.6; O2SAT 100
[2024-06-05] MEDS: Piperacillin Sodium/Tazobactam 3.375 GM in 0.9 % Sodium Chloride 50 ML IV ×4 (04:28→21:46)
[2024-06-05 05:34] VITALS: BMI 21.6
[2024-06-05 07:58] LABS: Mean Corpuscular HGB Conc 33.3 g/dl (31.0-36.0); Mean Platelet Volume 11.5 fL (9.4-12.4); Platelet Count 119 X10*3/uL (160-400); Red Cell Distribution Width 17.5 % (11.0-16.0); White Blood Count 7.2 X10*3/uL (4.8-10.8)
[2024-06-05 08:00] VITALS: BP 182/40; PULSE 103; RESP 20; TEMP 36.4; O2SAT 100
[2024-06-05 08:03] LABS: Anion Gap 14 (12-20); Blood Urea Nitrogen 22 mg/dL (9-16); C Reactive Protein 2.75 mg/dL (< or = 0.50); Calcium 8.7 mg/dL (8.4-10.2); Carbon Dioxide 17 mmol/L (22-29); Chloride 118 mmol/L (96-108); Creatinine Clr Calc Pharmacy 65.1; Estimated Glomerular Filt Rate > 60; Glucose Random 146 mg/dL (60-115); Potassium 3.4 mmol/L (3.3-5.1); Sodium 146 mmol/L (135-145)
[2024-06-05 08:05] LABS: Glucose, Whole Blood 137 mg/dL (60-115)
[2024-06-05 08:40] LABS: Folate 12.1 ng/mL (> or = 4.0); Vitamin B12 536 pg/mL (200-900)
[2024-06-05 08:50] LABS: TSH reflex Free T4 1.97 uIU/mL (0.32-4.0)
[2024-06-05] MEDS: Atorvastatin Calcium 40 MG TABLET PO (09:04)
[2024-06-05] MEDS: QUEtiapine Fumarate 25 MG TABLET PO ×2 (09:05→20:31)
[2024-06-05] MEDS: amLODIPine Besylate 10 MG TABLET PO (09:05)
[2024-06-05] MEDS: Famotidine 20 MG TABLET PO ×2 (09:05→20:31)
[2024-06-05] MEDS: Triamcinolone Acet 0.1 % Cream 15 GM TUBE 1 APPL TOPICAL ×2 (09:06→20:32)
[2024-06-05] MEDS: predniSONE 2.5 MG TABLET PO (09:06)
--- NOTE | 2024-06-05 09:07 | PM.NEUROCN ---
History of Present Illness Data of Consult Service Date: 06/05/24 Primary Care Provider: Get Martin MD [facility] Reason for consult: Encephalopathy 79 years old man brought to hospital for hematuria. He carried underlying diagnosis of multiple sclerosis and multiple other medical issues. There was no evidence of any recent seizure or focal weakness. Nature of his previous multiple sclerosis related symptoms and its diagnosis and treatment details were not available. He was unable to provide any meaningful history. Review of Systems Review of Systems: Could not be obtained from him PMFSH Past Medical History Medical History Steroid dependence EDWARD (acute kidney injury) UTI (urinary tract infection) due to urinary indwelling Nunez catheter Bullous pemphigoid Decubitus ulcer of coccygeal region, stage 2 Acute hypotension Sepsis Aspiration pneumonitis Recurrent UTI (urinary tract infection) Hypotonic neurogenic bladder Lytic lesion of bone on x-ray Wound of foot Anemia Septic shock Shoulder pain Constipation Hematuria Multiple sclerosis Depression Diabetes mellitus type 2 in obese Chronic pain syndrome BPH (benign prostatic hyperplasia) Dehydration Chronic renal failure Urinary tract infection Family History Family History Family/Other Heart attack Father Diabetes Family history: reviewed and not pertinent Surgical History Surgical History Hx of removal of cyst Social History Social History Household Members: Unknown / Unable to assess Household Members Other:: lives at [facility] Housing: Intermediate Housing Other:: major hospital Unable to assess alcohol history related to: Unable to respond Alcohol intake: never Comment: BEDFAST Patient Tobacco Use Status: Former Tobacco user Cigarette Packs Per Day: 1 Use of substances other than those prescribed or required for medical reasons: Unable to respond Currently Displaying Signs/Symptoms of Drug Intoxication Withdrawal: No Advance Directives: Yes Advance Directives on File: Yes Advance Directives Date on File: 04/22/24 Do you have a plan to hurt others: Vague Recently lost weight without trying: Unsure Nutrition Risks: Dental problems Poor oral hygiene: Yes service: Yes Current occupational status: retired Meds Allergies Allergy/AdvReac Type Severity Reaction Status Date / Time Benzodiazepines Allergy Unknown UNKNOWN Verified 05/27/24 22:23 [BENZODIAZEPINES] dalfampridine [From AMPYRA] Allergy Unknown UNKNOWN Verified 05/27/24 22:23 duloxetine [From CYMBALTA] Allergy Unknown UNKNOWN Verified 05/27/24 22:23 ezetimibe [From ZETIA] Allergy Unknown UNKNOWN Verified 05/27/24 22:23 niacin [NIACIN] Allergy Unknown UNKNOWN Verified 05/27/24 22:23 pravastatin [PRAVASTATIN] Allergy Unknown UNKNOWN Verified 05/27/24 22:23 [id number] Reductase Allergy Unknown UNKNOWN Verified 05/27/24 22:23 Inhibitor [[id number] REDUCTASE INHIBITOR] lorazepam [From ATIVAN] AdvReac Severe EXCESSIVE Verified 05/27/24 22:23 SEDATION doxycycline [DOXYCYCLINE] AdvReac Mild esophogeal Verified 05/27/24 22:23 iritation methylprednisolone AdvReac Mild heartburn Verified 05/27/24 22:23 [From SOLU-MEDROL] ertapenem [From INVANZ] AdvReac Unknown possible Verified 04/11/21 09:47 cause of bullous pemphigoid Active Medications: Current Medications Acetaminophen (Acetaminophen 325 Mg Tablet) 650 mg PO Q6H PRN PRN Reason: Fever >101 Last Admin: 06/01/24 20:44 Dose: 650 mg Amlodipine Besylate (Amlodipine Besylate 10 Mg Tablet) 10 mg PO DAILY [facility]; Protocol Last Admin: 06/04/24 08:29 Dose: Not Given Artificial Tears (Artificial Tears 15 Ml Drops) 1 drop EYE-BOTH Q4H PRN PRN Reason: Dry eyes Last Admin: 05/30/24 17:30 Dose: 1 drop Atorvastatin Calcium (Atorvastatin Calcium 40 Mg Tablet) 40 mg PO DAILY [facility] Last Admin: 06/04/24 08:29 Dose: Not Given Bisacodyl (Bisacodyl 10 Mg Supp.Rect) 10 mg WI DAILY PRN PRN Reason: Constipation Famotidine (Famotidine 20 Mg Tablet) 20 mg PO BID [facility] Last Admin: 06/04/24 21:37 Dose: 20 mg Folic Acid (Folic Acid 1 Mg Tablet) 1 mg PO SUTUWETHFRSA [facility] Last Admin: 06/04/24 11:15 Dose: Not Given Glucose (Glucose Gel 15 Gm Gel..Gram.) 15 gm PO Q15M PRN; Protocol PRN Reason: per Hypoglycemia Standing Ord. Glucose (Glucose Gel 15 Gm Gel..Gram.) 15 gm PO Q15M PRN; Protocol PRN Reason: per Hypoglycemia Standing Ord. Dextrose (D10) 250 mls @ 750 mls/hr IV Q15M PRN; Protocol PRN Reason: per Hypoglycemia Standing Ord. Dextrose (D10) 250 mls @ 750 mls/hr IV Q30M PRN PRN Reason: BG <70 Piperacillin Sod/Tazobactam (Sod 3.375 gm/ Sodium Chloride) 50 mls @ 100 mls/hr IV Q6H [facility] Last Infusion: 06/05/24 07:16 Dose: Infused Acyclovir Sodium 760 mg/ (Sodium Chloride) 265.2 mls @ 265.2 mls/hr IV Q8H [facility] Last Infusion: 06/05/24 07:16 Dose: Infused Lactated Ringer's (Lr) 1,000 mls @ 100 mls/hr IVCONT .Q10H [facility] Last Admin: 06/05/24 01:03 Dose: 100 mls/hr Insulin Human Lispro (Insulin Lispro 100 Unit/Ml 3 Ml Vial) 0 unit SUBCUT QIDACHS [facility]; Protocol Last Admin: 06/05/24 08:52 Dose: Not Given Lidocaine/Diphenhydr/Alum/Mg/Simeth (Mag&Al/Sim/Diphenhyd/Lidocaine 10 Ml Oral.Susp) 10 ml PO Q4H PRN; Protocol PRN Reason: mouth pain Last Admin: 06/03/24 03:54 Dose: 10 ml Methotrexate (Methotrexate Sodium 2.5 Mg Tablet) 15 mg PO MO [facility] Morphine Sulfate (Morphine Sulfate 2 Mg/Ml Cartridge) 2 mg IVPUSH Q3H PRN; Protocol PRN Reason: severe pain Multi-Ingred Medicated Throat Afton (Throat Afton, Medicated 177 Ml Bottle) 1 spray MUCOUS MEM Q2H PRN PRN Reason: Sore throat Last Admin: 05/31/24 16:58 Dose: 1 spray Ondansetron HCl (Ondansetron Hcl 4 Mg/2 Ml Vial) 4 mg IVPUSH Q8H PRN PRN Reason: Nausea Prednisone (Prednisone 2.5 Mg Tablet) 2.5 mg PO DAILY [facility] Last Admin: 06/04/24 08:29 Dose: Not Given Quetiapine Fumarate (Quetiapine Fumarate 25 Mg Tablet) 25 mg PO BID [facility] Last Admin: 06/04/24 21:37 Dose: 25 mg Sodium Biphosphate/Sodium Phosphate (Sodium Phosphate,Hudson-Dibasic 133 Ml Enema) 118 ml WI DAILY PRN PRN Reason: Constipation Sodium Chloride (0.9 % Sodium Chloride Flush 3 Ml Syringe) 3 ml IVFLUSH QSHIFT [facility] Last Admin: 06/05/24 01:04 Dose: 3 ml Triamcinolone Acetonide (Triamcinolone Acet 0.1 % Cream 15 Gm Tube) 1 appl TOPICAL BID [facility]; Protocol Last Admin: 06/04/24 21:42 Dose: 1 appl Home Medications ?Medication ?Instructions ?Recorded ?Confirmed ?Last Taken ?Type gabapentin 300 mg capsule 300 mg PO BID@0630,1200 10/09/20 05/28/24 Unknown History metformin 500 mg tablet 500 mg PO BIDWM 10/09/20 05/28/24 Unknown History tramadol 50 mg tablet 50 mg PO BEDTIME PRN moderate to 10/09/20 05/28/24 Unknown History severe pain acetaminophen 325 mg tablet 650 mg PO Q4H PRN pain or fever 03/13/21 05/28/24 Unknown History rosuvastatin 10 mg tablet 10 mg PO DAILY 03/13/21 05/28/24 Unknown History guaifenesin 100 mg/5 mL oral 200 mg PO Q4H PRN Cough 05/19/21 05/28/24 Unknown History liquid (Diabetic Tussin EX) prednisone 2.5 mg tablet 2.5 mg PO DAILY 05/19/21 05/28/24 Unknown History amlodipine 10 mg tablet 10 mg PO DAILY 11/16/23 05/28/24 Unknown History bismuth subsalicylate 262 mg/15 mL 524 mg PO Q8H PRN UPSET 11/16/23 05/28/24 Unknown History oral suspension (Pepto-Bismol) STOMACH/NAUSEA ceramides 1,3,6-II (CeraVe topical 1 appl topical BID Dry Skin 11/16/23 05/28/24 Unknown History cream) docusate sodium 100 mg capsule 100 mg PO BID 11/16/23 05/28/24 Unknown History (Colace) famotidine 20 mg tablet 20 mg PO BID 11/16/23 05/28/24 Unknown History folic acid 1 mg tablet 1 mg PO SUTUWETHFRSA 11/16/23 05/28/24 Unknown History gabapentin 800 mg tablet 800 mg PO BEDTIME 11/16/23 05/28/24 Unknown History insulin glargine-yfgn 100 unit/mL 5 unit subcut BEDTIME 11/16/23 05/28/24 Unknown History subcutaneous solution lactulose 10 gram/15 mL oral 30 ml PO DAILY 11/16/23 05/28/24 Unknown History solution (Enulose) losartan 25 mg tablet 25 mg PO BEDTIME 11/16/23 05/28/24 Unknown History melatonin 5 mg tablet 5 mg PO BEDTIME PRN Insomnia 11/16/23 05/28/24 Unknown History polyethylene glycol 3350 17 17 g PO DAILY 11/16/23 05/28/24 Unknown History gram/dose oral powder (Miralax) sennosides 8.6 mg tablet (senna) 17.2 mg PO BEDTIME 11/16/23 05/28/24 Unknown History zolpidem 6.25 mg tablet,extended 6.25 mg PO BEDTIME 11/16/23 05/28/24 Unknown History release,multiphase methotrexate sodium 2.5 mg tablet 15 mg PO MO 02/25/24 05/28/24 Unknown History bisacodyl 5 mg tablet 5 mg PO DAILY PRN Constipation 03/31/24 05/28/24 Unknown History aspirin 81 mg tablet,delayed 81 mg PO DAILY 04/23/24 05/28/24 Unknown History release bisacodyl 10 mg rectal suppository 10 mg WI DAILY PRN Constipation 04/23/24 05/28/24 Unknown History bisacodyl 10 mg rectal suppository 10 mg WI Q3D 04/23/24 05/28/24 Unknown History guaifenesin 600 mg tablet, 600 mg PO Q12H PRN Cold Symptoms 04/23/24 05/28/24 Unknown History extended release 12 hr (Mucinex) sodium phosphates 19 gram-7 118 ml WI DAILY PRN Constipation 04/23/24 05/28/24 Unknown History gram/118 mL enema (Fleet Enema) triamcinolone acetonide 0.1 % 1 appl topical BID 05/28/24 05/28/24 Unknown History topical cream Physical Exam Vital Signs: Vital Signs: Last Vital Signs Temp 97.6 F 06/05/24 08:00 Pulse 103 H 06/05/24 08:00 Resp 20 06/05/24 08:00 BP 182/40 H 06/05/24 08:00 Pulse Ox 100 06/05/24 08:00 O2 Del Method Room Air 06/05/24 03:20 BMI result Body Mass Index 21.6 Neuro: Other: He is little bit drowsy but was able to open eyes made eye contact and was able to answer simple questions. Spontaneity and fluency of speech were okay. Comprehension was okay. He did not know where he was. He thought he was in residential. He was not in any pain or distress. He was following simple commands. Multiple blisters were noted on his face specially lips. Visual barnhart seem to be intact. Extraocular muscles were intact. There was no obvious facial asymmetry. Legs and feet were wrapped up but he was able to wiggle toes. He was able to move his arms and hands. Speech was okay. Results Labs 06/05/24 07:06 06/05/24 07:06 Labs: Short CBC 06/05/24 Range/Units 07:06 WBC 7.2 (4.8-10.8) X10*3/uL Hgb 9.0 L (14.0-18.0) g/dl Hct 27.0 L (42.0-52.0) % Plt Count 119 L (160-400) X10*3/uL BMP 06/05/24 07:06 Sodium 146 H Potassium 3.4 Chloride 118 H Carbon Dioxide 17 L BUN 22 H Creatinine 1.[address]cium [address] revealed moderately severe diffuse cerebral atrophy and some microvascular ischemic changes. Microbiology Microbiology Results: Microbiology 06/01/24 07:24 Blood - Venous Blood Culture - Preliminary No growth after 48 hours. 06/01/24 07:24 Blood - Venous Blood Culture - Preliminary No growth after 48 hours. 05/28/24 01:26 Blood - Venous Blood Culture - Final Escherichia coli Proteus mirabilis Pseudomonas aeruginosa 05/28/24 01:26 Blood - Venous Blood Culture - Preliminary Escherichia coli Proteus mirabilis Pseudomonas aeruginosa 05/28/24 13:24 Urine Catheterized - Nunez Catheter Urine Culture - Final Assessment and Plan (1) Toxic metabolic encephalopathy: Status: Acute 79 years old man with multifactorial metabolic toxic encephalopathy. Baseline diagnosis of multiple sclerosis is not an issue at this time. No further investigation or intervention is needed for that reason. Mainstay of management is treatment of infection and rehydration. Overall clinical picture is suggestive more of encephalopathy than encephalitis. Procedures Date of Service Date of Service: 06/05/24
[2024-06-05] MEDS: Folic Acid 1 MG TABLET PO (09:09)
--- NOTE | 2024-06-05 09:54 | P.CNUR_ITS ---
History of Present Illness Consult details Consult date: 06/03/24 Narrative: CC: Recurrent UTI with indwelling catheter Omero is a 79-year-old male who presented with hematuria, became hypotensive and found to have septic shock and so admitted to ICU for pressor support found to have polymicrobial GNR bacteremia History of MS chronically bed-bound, bullous pemphigoid on chronic steroids, with chronic bilateral lower extremity weakness, BPH, depression, type 2 diabetes mellitus on insulin, crohns, chronic UTIs (pansensitve proteus) with indwelling Nunez catheter resident of nursing facility Has been seen multiple times by Urology. Prior recommendation includes suprapubic tube placement. Failed to attend outpatient evaluation. Found to have E coli ESBL bacteremia. Antibiotic management per Infectious Disease. Recommendation unchanged. Would benefit from outpatient suprapubic tube placement and significant bowel regimen. Review of Systems 2 Constitutional: Constitutional: Reports as per HPI and Reports no additional constitutional complaints Cardiovascular: Cardiovascular: Reports as per HPI and Reports no additional cardiovascular complaints Respiratory: Respiratory: Reports as per HPI and Reports no additional respiratory complaints Gastrointestinal: Gastrointestinal: Reports as per HPI and Reports no additional gastrointestinal complaints Genitourinary: Genitourinary: Reports as per HPI Musculoskeletal: Musculoskeletal: Reports no additional musculoskeletal complaints and Reports as per HPI Neurologic: Reports system reviewed and no additional complaints, except as documented and Reports as per HPI PMFSH Past Medical History Medical History Steroid dependence EDWARD (acute kidney injury) UTI (urinary tract infection) due to urinary indwelling Nuenz catheter Bullous pemphigoid Decubitus ulcer of coccygeal region, stage 2 Acute hypotension Sepsis Aspiration pneumonitis Recurrent UTI (urinary tract infection) Hypotonic neurogenic bladder Lytic lesion of bone on x-ray Wound of foot Anemia Septic shock Shoulder pain Constipation Hematuria Multiple sclerosis Depression Diabetes mellitus type 2 in obese Chronic pain syndrome BPH (benign prostatic hyperplasia) Dehydration Chronic renal failure Urinary tract infection Family History Family History Family/Other Heart attack Father Diabetes Family history: reviewed and not pertinent Surgical History Surgical History Hx of removal of cyst Social History Social History Household Members: Unknown / Unable to assess Household Members Other:: lives at [facility] on [address] in [place] Housing: Long-Term Housing Other:: [facility] Unable to assess alcohol history related to: Unable to respond Alcohol intake: never Comment: BEDFAST Patient Tobacco Use Status: Former Tobacco user Cigarette Packs Per Day: 1 Use of substances other than those prescribed or required for medical reasons: Unable to respond Currently Displaying Signs/Symptoms of Drug Intoxication Withdrawal: No Advance Directives: Yes Advance Directives on File: Yes Advance Directives Date on File: 04/22/24 Do you have a plan to hurt others: Vague Recently lost weight without trying: Unsure Nutrition Risks: Dental problems Poor oral hygiene: Yes service: Yes Current occupational status: retired Meds Allergies Allergy/AdvReac Type Severity Reaction Status Date / Time Benzodiazepines Allergy Unknown UNKNOWN Verified 05/27/24 22:23 [BENZODIAZEPINES] dalfampridine [From AMPYRA] Allergy Unknown UNKNOWN Verified 05/27/24 22:23 duloxetine [From CYMBALTA] Allergy Unknown UNKNOWN Verified 05/27/24 22:23 ezetimibe [From ZETIA] Allergy Unknown UNKNOWN Verified 05/27/24 22:23 niacin [NIACIN] Allergy Unknown UNKNOWN Verified 05/27/24 22:23 pravastatin [PRAVASTATIN] Allergy Unknown UNKNOWN Verified 05/27/24 22:23 Hjldihy-SYT-FzW Reductase Allergy Unknown UNKNOWN Verified 05/27/24 22:23 Inhibitor [RHAYTXA-[id number]-QKM REDUCTASE INHIBITOR] lorazepam [From ATIVAN] AdvReac Severe EXCESSIVE Verified 05/27/24 22:23 SEDATION doxycycline [DOXYCYCLINE] AdvReac Mild esophogeal Verified 05/27/24 22:23 iritation methylprednisolone AdvReac Mild heartburn Verified 05/27/24 22:23 [From SOLU-MEDROL] ertapenem [From INVANZ] AdvReac Unknown possible Verified 04/11/21 09:47 cause of bullous pemphigoid Active Medications: Current Medications Acetaminophen (Acetaminophen 325 Mg Tablet) 650 mg PO Q6H PRN PRN Reason: Fever >101 Last Admin: 06/01/24 20:44 Dose: 650 mg Amlodipine Besylate (Amlodipine Besylate 10 Mg Tablet) 10 mg PO DAILY [facility]; Protocol Last Admin: 06/05/24 09:05 Dose: 10 mg Artificial Tears (Artificial Tears 15 Ml Drops) 1 drop EYE-BOTH Q4H PRN PRN Reason: Dry eyes Last Admin: 05/30/24 17:30 Dose: 1 drop Atorvastatin Calcium (Atorvastatin Calcium 40 Mg Tablet) 40 mg PO DAILY [facility] Last Admin: 06/05/24 09:04 Dose: 40 mg Bisacodyl (Bisacodyl 10 Mg Supp.Rect) 10 mg [place] DAILY PRN PRN Reason: Constipation Famotidine (Famotidine 20 Mg Tablet) 20 mg PO BID [facility] Last Admin: 06/05/24 09:05 Dose: 20 mg Folic Acid (Folic Acid 1 Mg Tablet) 1 mg PO SUTUWETHFRSA [facility] Last Admin: 06/05/24 09:09 Dose: 1 mg Glucose (Glucose Gel 15 Gm Gel..Gram.) 15 gm PO Q15M PRN; Protocol PRN Reason: per Hypoglycemia Standing Ord. Glucose (Glucose Gel 15 Gm Gel..Gram.) 15 gm PO Q15M PRN; Protocol PRN Reason: per Hypoglycemia Standing Ord. Dextrose (D10) 250 mls @ 750 mls/hr IV Q15M PRN; Protocol PRN Reason: per Hypoglycemia Standing Ord. Dextrose (D10) 250 mls @ 750 mls/hr IV Q30M PRN PRN Reason: BG <70 Piperacillin Sod/Tazobactam (Sod 3.375 gm/ Sodium Chloride) 50 mls @ 100 mls/hr IV Q6H [facility] Last Infusion: 06/05/24 09:34 Dose: Infused Acyclovir Sodium 760 mg/ (Sodium Chloride) 265.2 mls @ 265.2 mls/hr IV Q8H [facility] Last Infusion: 06/05/24 07:16 Dose: Infused Lactated Ringer's (Lr) 1,000 mls @ 100 mls/hr IVCONT .Q10H [facility] Last Admin: 06/05/24 01:03 Dose: 100 mls/hr Insulin Human Lispro (Insulin Lispro 100 Unit/Ml 3 Ml Vial) 0 unit SUBCUT QIDACHS [facility]; Protocol Last Admin: 06/05/24 08:52 Dose: Not Given Lidocaine/Diphenhydr/Alum/Mg/Simeth (Mag&Al/Sim/Diphenhyd/Lidocaine 10 Ml Oral.Susp) 10 ml PO Q4H PRN; Protocol PRN Reason: mouth pain Last Admin: 06/03/24 03:54 Dose: 10 ml Methotrexate (Methotrexate Sodium 2.5 Mg Tablet) 15 mg PO MO [facility] Morphine Sulfate (Morphine Sulfate 2 Mg/Ml Cartridge) 2 mg IVPUSH Q3H PRN; Protocol PRN Reason: severe pain Multi-Ingred Medicated Throat [place] (Throat [place], Medicated 177 Ml Bottle) 1 spray MUCOUS MEM Q2H PRN PRN Reason: Sore throat Last Admin: 05/31/24 16:58 Dose: 1 spray Ondansetron HCl (Ondansetron Hcl 4 Mg/2 Ml Vial) 4 mg IVPUSH Q8H PRN PRN Reason: Nausea Prednisone (Prednisone 2.5 Mg Tablet) 2.5 mg PO DAILY [facility] Last Admin: 06/05/24 09:06 Dose: 2.5 mg Quetiapine Fumarate (Quetiapine Fumarate 25 Mg Tablet) 25 mg PO BID [facility] Last Admin: 06/05/24 09:05 Dose: 25 mg Sodium Biphosphate/Sodium Phosphate (Sodium Phosphate,[place]-Dibasic 133 Ml Enema) 118 ml [place] DAILY PRN PRN Reason: Constipation Sodium Chloride (0.9 % Sodium Chloride Flush 3 Ml Syringe) 3 ml IVFLUSH QSHIFT [facility] Last Admin: 06/05/24 09:05 Dose: 3 ml Triamcinolone Acetonide (Triamcinolone Acet 0.1 % Cream 15 Gm Tube) 1 appl TOPICAL BID [facility]; Protocol Last Admin: 06/05/24 09:06 Dose: 1 appl Home Medications ?Medication ?Instructions ?Recorded ?Confirmed ?Last Taken ?Type gabapentin 300 mg capsule 300 mg PO BID@0630,1200 10/09/20 05/28/24 Unknown History metformin 500 mg tablet 500 mg PO BIDWM 10/09/20 05/28/24 Unknown History tramadol 50 mg tablet 50 mg PO BEDTIME PRN moderate to 10/09/20 05/28/24 Unknown History severe pain acetaminophen 325 mg tablet 650 mg PO Q4H PRN pain or fever 03/13/21 05/28/24 Unknown History rosuvastatin 10 mg tablet 10 mg PO DAILY 03/13/21 05/28/24 Unknown History guaifenesin 100 mg/5 mL oral 200 mg PO Q4H PRN Cough 05/19/21 05/28/24 Unknown History liquid (Diabetic Tussin EX) prednisone 2.5 mg tablet 2.5 mg PO DAILY 05/19/21 05/28/24 Unknown History amlodipine 10 mg tablet 10 mg PO DAILY 11/16/23 05/28/24 Unknown History bismuth subsalicylate 262 mg/15 mL 524 mg PO Q8H PRN UPSET 11/16/23 05/28/24 Unknown History oral suspension (Pepto-Bismol) STOMACH/NAUSEA ceramides 1,3,6-II (CeraVe topical 1 appl topical BID Dry Skin 11/16/23 05/28/24 Unknown History cream) docusate sodium 100 mg capsule 100 mg PO BID 11/16/23 05/28/24 Unknown History (Colace) famotidine 20 mg tablet 20 mg PO BID 11/16/23 05/28/24 Unknown History folic acid 1 mg tablet 1 mg PO SUTUWETHFRSA 11/16/23 05/28/24 Unknown History gabapentin 800 mg tablet 800 mg PO BEDTIME 11/16/23 05/28/24 Unknown History insulin glargine-yfgn 100 unit/mL 5 unit subcut BEDTIME 11/16/23 05/28/24 Unknown History subcutaneous solution lactulose 10 gram/15 mL oral 30 ml PO DAILY 11/16/23 05/28/24 Unknown History solution (Enulose) losartan 25 mg tablet 25 mg PO BEDTIME 11/16/23 05/28/24 Unknown History melatonin 5 mg tablet 5 mg PO BEDTIME PRN Insomnia 11/16/23 05/28/24 Unknown History polyethylene glycol 3350 17 17 g PO DAILY 11/16/23 05/28/24 Unknown History gram/dose oral powder (Miralax) sennosides 8.6 mg tablet (senna) 17.2 mg PO BEDTIME 11/16/23 05/28/24 Unknown History zolpidem 6.25 mg tablet,extended 6.25 mg PO BEDTIME 11/16/23 05/28/24 Unknown History release,multiphase methotrexate sodium 2.5 mg tablet 15 mg PO MO 02/25/24 05/28/24 Unknown History bisacodyl 5 mg tablet 5 mg PO DAILY PRN Constipation 03/31/24 05/28/24 Unknown History aspirin 81 mg tablet,delayed 81 mg PO DAILY 04/23/24 05/28/24 Unknown History release bisacodyl 10 mg rectal suppository 10 mg [place] DAILY PRN Constipation 04/23/24 05/28/24 Unknown History bisacodyl 10 mg rectal suppository 10 mg [place] Q3D 04/23/24 05/28/24 Unknown History guaifenesin 600 mg tablet, 600 mg PO Q12H PRN Cold Symptoms 04/23/24 05/28/24 Unknown History extended release 12 hr (Mucinex) sodium phosphates 19 gram-7 118 ml [place] DAILY PRN Constipation 04/23/24 05/28/24 Unknown History gram/118 mL enema (Fleet Enema) triamcinolone acetonide 0.1 % 1 appl topical BID 05/28/24 05/28/24 Unknown History topical cream Physical Exam 2 Vital Signs: Vital Signs: Last Vital Signs Temp 97.6 F 06/05/24 08:00 Pulse 103 H 06/05/24 08:00 Resp 20 06/05/24 08:00 BP 182/40 H 06/05/24 08:00 Pulse Ox 100 06/05/24 08:00 O2 Del Method Room Air 06/05/24 03:20 BMI result Body Mass Index 21.6 Const: General: cooperative, healthy appearing, comfortable and no acute distress Orientation/consciousness: patient oriented x3 HEENT: Face and sinus: Yes normal facial exam Mouth: moist mucous membranes Neck: Neck: Yes normal visual inspection, Yes full ROM and Yes trachea midline Chest: Chest palpation & inspection: normal inspection of the chest Resp: Effort & Inspection: normal respiratory effort, able to speak in complete sentences and no respiratory distress GI: Inspection: Yes normal to inspection Back/Spine/Pelvis: Cervical Spine: normal cervical lordosis Thoracic/Lumbar Spine: thoracic and lumbar spine normal to inspection Skin: General skin exam: no rashes or lesions noted Neuro: General: patient oriented x3, tone normal and moves all extremities Extrem: General: Yes normal to inspection and Yes capillary refill normal Results Labs 06/05/24 07:06 06/05/24 07:06 Labs: Abnormal lab results 06/04/24 06/04/24 06/05/24 Range/Units 16:06 20:11 07:06 RBC 3.00 L (4.60-5.80) X10*6/uL Hgb 9.0 L (14.0-18.0) g/dl Hct 27.0 L (42.0-52.0) % RDW 17.5 H (11.0-16.0) % Plt Count 119 L (160-400) X10*3/uL Sodium 146 H (135-145) mmol/L Chloride 118 H (96-108) mmol/L Carbon Dioxide 17 L (22-29) mmol/L BUN 22 H (9-16) mg/dL POC Glucose 193 H 234 H (60-115) mg/dL Random Glucose 146 H (60-115) mg/dL C-Reactive Protein 2.75 H (< or = 0.50) mg/dL 06/05/24 Range/Units 07:48 RBC (4.60-5.80) X10*6/uL Hgb (14.0-18.0) g/dl Hct (42.0-52.0) % RDW (11.0-16.0) % Plt Count (160-400) X10*3/uL Sodium (135-145) mmol/L Chloride (96-108) mmol/L Carbon Dioxide (22-29) mmol/L BUN (9-16) mg/dL POC Glucose 137 H (60-115) mg/dL Random Glucose (60-115) mg/dL C-Reactive Protein (< or = 0.50) mg/dL Short CBC 06/05/24 Range/Units 07:06 WBC 7.2 (4.8-10.8) X10*3/uL Hgb 9.0 L (14.0-18.0) g/dl Hct 27.0 L (42.0-52.0) % Plt Count 119 L (160-400) X10*3/uL BMP 06/05/24 07:06 Sodium 146 H Potassium 3.4 Chloride 118 H Carbon Dioxide 17 L BUN 22 H Creatinine 1.00 Calcium 8.7 All other labs normal. Assessment and Plan (1) E coli bacteremia: Status: Acute (2) Severe sepsis: Status: Acute Plan Suprapubic tube placement as outpatient once sepsis resolves Procedures Date of Service Date of Service: 06/05/24
[2024-06-05 10:34] LABS: Ammonia 27 umol/L (13-55)
[2024-06-05 10:48] LABS: Troponin-I High Sensitivity 13.8 ng/L (<3.5-35.0)
--- NOTE | 2024-06-05 11:05 | HO.PM.IMPN ---
Subjective Subjective Date of Service: 06/05/24 Interval History: less agitated, more cooperative with care still confused c/o chest pain this AM; no dyspnea Review of Systems Review of Systems: Yes all other systems are reviewed and are negative Physical Exam Vital Signs: Vital Signs: Last Vital Signs Temp 97.6 F 06/05/24 08:00 Pulse 103 H 06/05/24 08:00 Resp 20 06/05/24 08:00 BP 182/40 H 06/05/24 08:00 Pulse Ox 100 06/05/24 08:00 O2 Del Method Room Air 06/05/24 03:20 BMI result Body Mass Index 21.6 Gen: confused, hallucinating HEENT: sclera anicteric, moist mucus membranes, lower lip swollen with crusted, tender lesions Neck: supple, L IJ CVC placed 05/27/24 Lungs: clear to auscultation bilaterally Heart: regular, tachycardic, no murmurs Abd: soft, non-tender, non-distended Ext: no edema Skin: warm/well-perfused Neuro: alert, disoriented Psych: impaired insight Objective Data Active Medications Acetaminophen (Acetaminophen 325 Mg Tablet) 650 mg PO Q6H PRN PRN Reason: Fever >101 Last Admin: 06/01/24 20:44 Dose: 650 mg Documented By: FELIPE Amlodipine Besylate (Amlodipine Besylate 10 Mg Tablet) 10 mg PO DAILY [facility]; Protocol Last Admin: 06/05/24 09:05 Dose: 10 mg Documented By: ANISH Artificial Tears (Artificial Tears 15 Ml Drops) 1 drop EYE-BOTH Q4H PRN PRN Reason: Dry eyes Last Admin: 05/30/24 17:30 Dose: 1 drop Documented By: OLIVIA Atorvastatin Calcium (Atorvastatin Calcium 40 Mg Tablet) 40 mg PO DAILY [facility] Last Admin: 06/05/24 09:04 Dose: 40 mg Documented By: ANISH Bisacodyl (Bisacodyl 10 Mg Supp.Rect) 10 mg [place] DAILY PRN PRN Reason: Constipation Famotidine (Famotidine 20 Mg Tablet) 20 mg PO BID [facility] Last Admin: 06/05/24 09:05 Dose: 20 mg Documented By: ANISH Folic Acid (Folic Acid 1 Mg Tablet) 1 mg PO CANDYUWETHFRSA [facility] Last Admin: 06/05/24 09:09 Dose: 1 mg Documented By: ANISH Glucose (Glucose Gel 15 Gm Gel..Gram.) 15 gm PO Q15M PRN; Protocol PRN Reason: per Hypoglycemia Standing Ord. Glucose (Glucose Gel 15 Gm Gel..Gram.) 15 gm PO Q15M PRN; Protocol PRN Reason: per Hypoglycemia Standing Ord. Dextrose (D10) 250 mls @ 750 mls/hr IV Q15M PRN; Protocol PRN Reason: per Hypoglycemia Standing Ord. Dextrose (D10) 250 mls @ 750 mls/hr IV Q30M PRN PRN Reason: BG <70 Piperacillin Sod/Tazobactam (Sod 3.375 gm/ Sodium Chloride) 50 mls @ 100 mls/hr IV Q6H [facility] Last Infusion: 06/05/24 09:34 Dose: Infused Documented By: ANISH Acyclovir Sodium 760 mg/ (Sodium Chloride) 265.2 mls @ 265.2 mls/hr IV Q8H [facility] Last Infusion: 06/05/24 07:16 Dose: Infused Documented By: BERNARDINO Lactated Ringer's (Lr) 1,000 mls @ 100 mls/hr IVCONT .Q10H [facility] Last Admin: 06/05/24 01:03 Dose: 100 mls/hr Documented By: BERNARDINO Insulin Human Lispro (Insulin Lispro 100 Unit/Ml 3 Ml Vial) 0 unit SUBCUT QIDACHS [facility]; Protocol Last Admin: 06/05/24 08:52 Dose: Not Given Documented By: ANISH Non-Admin Reason: poc= 137 Lidocaine/Diphenhydr/Alum/Mg/Simeth (Mag&Al/Sim/Diphenhyd/Lidocaine 10 Ml Oral.Susp) 10 ml PO Q4H PRN; Protocol PRN Reason: mouth pain Last Admin: 06/03/24 03:54 Dose: 10 ml Documented By: FELIPE Comments: c/o mouth pain Methotrexate (Methotrexate Sodium 2.5 Mg Tablet) 15 mg PO MO [facility] Morphine Sulfate (Morphine Sulfate 2 Mg/Ml Cartridge) 2 mg IVPUSH Q3H PRN; Protocol PRN Reason: severe pain Multi-Ingred Medicated Throat [place] (Throat [place], Medicated 177 Ml Bottle) 1 spray MUCOUS MEM Q2H PRN PRN Reason: Sore throat Last Admin: 05/31/24 16:58 Dose: 1 spray Documented By: YURIY Ondansetron HCl (Ondansetron Hcl 4 Mg/2 Ml Vial) 4 mg IVPUSH Q8H PRN PRN Reason: Nausea Prednisone (Prednisone 2.5 Mg Tablet) 2.5 mg PO DAILY [facility] Last Admin: 06/05/24 09:06 Dose: 2.5 mg Documented By: ANISH Quetiapine Fumarate (Quetiapine Fumarate 25 Mg Tablet) 25 mg PO BID [facility] Last Admin: 06/05/24 09:05 Dose: 25 mg Documented By: ANISH Sodium Biphosphate/Sodium Phosphate (Sodium Phosphate,[place]-Dibasic 133 Ml Enema) 118 ml [place] DAILY PRN PRN Reason: Constipation Sodium Chloride (0.9 % Sodium Chloride Flush 3 Ml Syringe) 3 ml IVFLUSH QSHIFT [facility] Last Admin: 06/05/24 09:05 Dose: 3 ml Documented By: ANISH Triamcinolone Acetonide (Triamcinolone Acet 0.1 % Cream 15 Gm Tube) 1 appl TOPICAL BID [facility]; Protocol Last Admin: 06/05/24 09:06 Dose: 1 appl Documented By: ANISH Labs 06/05/24 07:06 06/05/24 07:06 Labs: Laboratory Results - last 24 hr 06/04/24 06/04/24 06/04/24 11:36 16:06 20:11 MCV MCH MCHC RDW Plt Count MPV Absolute Nucleated RBC Nucleated RBC % (auto) Anion Gap Estim Creat Clear Calc Estimated GFR POC Glucose 104 193 H 234 H Random Glucose Calcium Ammonia Troponin I High Sens C-Reactive Protein Vitamin B12 Folate TSH 06/05/24 06/05/24 06/05/24 07:06 07:48 10:18 MCV 90.0 MCH 30.0 MCHC 33.3 RDW 17.5 H Plt Count 119 L MPV 11.5 Absolute Nucleated RBC 0.000 Nucleated RBC % (auto) 0.0 Anion Gap 14 Estim Creat Clear Calc 65.1 Estimated GFR > 60 POC Glucose 137 H Random Glucose 146 H Calcium 8.7 Ammonia Troponin I High Sens 13.8 D C-Reactive Protein 2.75 H Vitamin B12 536 Folate 12.1 TSH 1.97 06/05/24 10:21 MCV MCH MCHC RDW Plt Count MPV Absolute Nucleated RBC Nucleated RBC % (auto) Anion Gap Estim Creat Clear Calc Estimated GFR POC Glucose Random Glucose Calcium Ammonia 27 Troponin I High Sens C-Reactive Protein Vitamin B12 Folate TSH Assessment and Plan (1) Septic shock: Status: Acute Assessment and Plan: d9 79yo chronically bedbound M long-term resident of [facility] with MS, chronic Nunez, hx bullous pemphigoid on chronic steroids, mood disorder, HLD, HTN, DM2 presented with hematuria, became hypotensive and found to have septic shock and so admitted to ICU for pressor support found to have polymicrobial GNR bacteremia. Pt has hx of bullous pemphigoid possibly provoked by ertapenem and so was treated with Zosyn with improvement; sendout susceptibilities on the E. coli ESBL pending stepped down to telemetry 05/31 septic shock due to ESBL + Proteus + Pseudomonas bacteremia - resolved, off norepi drip and now hypertensive; restarted amlodipine and now back on home dose - continue pip-sterling started 05/28-, ID consulted, sendout susceptibilties on ESBL E coli pending, recheck BCx from 06/01 are clear - Urology consult given multiple GNRs + indwelling Nunez pending. Recommend outpt suprapubic cathter. acute encephalopathy due to infection/hospitalization - continue to treat bacteremia. started low-dose quetiapine. Neuro consulted; no concern for encephalitis. 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; started acyclovir 10 mg/kg q8h 06/02-; also magic mouthwash; prn morphine for pain hypoK - repleted hyperNa, mild - encourage free water intake dysphagia - seen by [facility], cleared for NDD2 solids + nectar liquids; d/c'ed NGT 06/01 anemia of chronic disease - H+H stable bullous pemphigoid - resumed chronic prednisone + MTX HLD - resumed statin HTN - amlodipine as above DM2 - [place]-dose lispro VTE ppx - LMWH dispo - eventual return to LTC @ [facility] In my clinical judgment, the patient requires continued inpatient hospitalization for the following reasons: IV ABX, bacteremia, encephalopathy Total time managing care of this patient today: 35 minutes. Quality Stroke Does the patient have a stroke diagnosis?: No VTE Prior VTE?: No VTE Risk Level:: Medical - low VTE Device Contraindication: N/A - Device Ordered VTE Drug Contraindication: N/A - Med Ordered
[2024-06-05 11:49] LABS: Glucose, Whole Blood 143 mg/dL (60-115)
[2024-06-05 12:00] VITALS: BP 182/84; PULSE 106; RESP 18; TEMP 36.4; O2SAT 97
[2024-06-05 13:47] LABS: Troponin-I High Sensitivity 13.5 ng/L (<3.5-35.0)
[2024-06-05] MEDS: Insulin Lispro 100 UNIT/ML 3 ML VIAL SUBCUT (15:55)
[2024-06-05 15:57] LABS: Glucose, Whole Blood 234 mg/dL (60-115)
[2024-06-05 16:00] VITALS: BP 152/70; PULSE 115; RESP 19; TEMP 36.4; O2SAT 100
[2024-06-05 20:00] VITALS: BP 153/70; PULSE 103; RESP 20; TEMP 37; O2SAT 100
[2024-06-05 20:30] LABS: Glucose, Whole Blood 98 mg/dL (60-115)
[2024-06-06] VITALS (8 sets, daily range): BP systolic 143–203; BP diastolic 65–86; PULSE 98–113; RESP 18–20; TEMP 35.9–36.6; O2SAT 95–99; BMI 21.7
[2024-06-06] MEDS: Piperacillin Sodium/Tazobactam 3.375 GM in 0.9 % Sodium Chloride 50 ML IV ×4 (03:51→22:23)
[2024-06-06] MEDS: Morphine Sulfate 2 MG/ML CARTRIDGE IVPUSH (04:44)
[2024-06-06] MEDS: Artificial Tears 15 ML DROPS 1 DROP EYE-BOTH (04:47)
[2024-06-06] MEDS: Throat Spray, Medicated 177 ML BOTTLE 1 SPRAY MUCOUS MEM (04:47)
[2024-06-06 07:15] LABS: Anion Gap 15 (12-20); Blood Urea Nitrogen 15 mg/dL (9-16); Calcium 8.8 mg/dL (8.4-10.2); Carbon Dioxide 18 mmol/L (22-29); Chloride 115 mmol/L (96-108); Creatinine Clr Calc Pharmacy 69.3; Estimated Glomerular Filt Rate > 60; Glucose Random 142 mg/dL (60-115); Magnesium 1.7 mg/dL (1.6-2.6); Potassium 3.4 mmol/L (3.3-5.1); Sodium 145 mmol/L (135-145)
[2024-06-06 08:03] LABS: Glucose, Whole Blood 187 mg/dL (60-115)
[2024-06-06] MEDS: 0.9 % Sodium Chloride Flush 3 ML SYRINGE IVFLUSH ×3 (08:35→21:21)
[2024-06-06] MEDS: Insulin Lispro 100 UNIT/ML 3 ML VIAL SUBCUT ×2 (08:35→21:18)
[2024-06-06] MEDS: amLODIPine Besylate 10 MG TABLET PO (08:38)
[2024-06-06] MEDS: Famotidine 20 MG TABLET PO ×2 (08:38→21:18)
[2024-06-06] MEDS: QUEtiapine Fumarate 25 MG TABLET PO ×2 (08:38→21:18)
[2024-06-06] MEDS: Atorvastatin Calcium 40 MG TABLET PO (08:38)
[2024-06-06] MEDS: predniSONE 2.5 MG TABLET PO (08:39)
[2024-06-06] MEDS: Triamcinolone Acet 0.1 % Cream 15 GM TUBE 1 APPL TOPICAL ×2 (08:40→21:21)
[2024-06-06] MEDS: carvediloL 3.125 MG TABLET PO ×2 (08:42→21:18)
--- NOTE | 2024-06-06 09:37 | HO.PM.IMPN ---
Subjective Subjective Date of Service: 06/06/24 Interval History: more alert/oriented this AM BP high, 202/84 this AM no more chest pain; states it felt more like cramp than anything else understands he is at [facility] [place] and that he lives at [facility] improving Review of Systems Review of Systems: Yes all other systems are reviewed and are negative Physical Exam Vital Signs: Vital Signs: Last Vital Signs Temp 96.7 F L 06/06/24 03:54 Pulse 113 H 06/06/24 08:42 Resp 18 06/06/24 03:54 BP 172/80 H 06/06/24 08:42 Pulse Ox 96 06/06/24 03:54 O2 Del Method Room Air 06/06/24 03:54 BMI result Body Mass Index 21.7 Gen: alert, oriented HEENT: sclera anicteric, moist mucus membranes, lower lip swollen with dry crusted vesicles Neck: supple Lungs: clear to auscultation bilaterally Heart: regular, tachycardic, no murmurs Abd: soft, non-tender, non-distended Ext: no edema Skin: warm/well-perfused Neuro: alert, oriented to self and place Psych: impaired insight but improved from yesterday Objective Data Active Medications Acetaminophen (Acetaminophen 325 Mg Tablet) 650 mg PO Q6H PRN PRN Reason: Fever >101 Last Admin: 06/01/24 20:44 Dose: 650 mg Documented By: FELIPE Amlodipine Besylate (Amlodipine Besylate 10 Mg Tablet) 10 mg PO DAILY ON LICENSE OF [facility]; Protocol Last Admin: 06/06/24 08:38 Dose: 10 mg Documented By: JOAN Artificial Tears (Artificial Tears 15 Ml Drops) 1 drop EYE-BOTH Q4H PRN PRN Reason: Dry eyes Last Admin: 06/06/24 04:47 Dose: 1 drop Documented By: BERNARDINO Atorvastatin Calcium (Atorvastatin Calcium 40 Mg Tablet) 40 mg PO DAILY ON LICENSE OF [facility] Last Admin: 06/06/24 08:38 Dose: 40 mg Documented By: JOAN Bisacodyl (Bisacodyl 10 Mg Supp.Rect) 10 mg [place] DAILY PRN PRN Reason: Constipation Carvedilol (Carvedilol 3.125 Mg Tablet) 3.125 mg PO BID ON LICENSE OF [facility]; Protocol Last Admin: 06/06/24 08:42 Dose: 3.125 mg Documented By: JOAN Famotidine (Famotidine 20 Mg Tablet) 20 mg PO BID ON LICENSE OF [facility] Last Admin: 06/06/24 08:38 Dose: 20 mg Documented By: JOAN Folic Acid (Folic Acid 1 Mg Tablet) 1 mg PO SUTUWETHFRSA ON LICENSE OF [facility] Last Admin: 06/05/24 09:09 Dose: 1 mg Documented By: ANISH Glucose (Glucose Gel 15 Gm Gel..Gram.) 15 gm PO Q15M PRN; Protocol PRN Reason: per Hypoglycemia Standing Ord. Glucose (Glucose Gel 15 Gm Gel..Gram.) 15 gm PO Q15M PRN; Protocol PRN Reason: per Hypoglycemia Standing Ord. Dextrose (D10) 250 mls @ 750 mls/hr IV Q15M PRN; Protocol PRN Reason: per Hypoglycemia Standing Ord. Dextrose (D10) 250 mls @ 750 mls/hr IV Q30M PRN PRN Reason: BG <70 Piperacillin Sod/Tazobactam (Sod 3.375 gm/ Sodium Chloride) 50 mls @ 100 mls/hr IV Q6H ON LICENSE OF [facility] Last Infusion: 06/06/24 04:36 Dose: Infused Documented By: BERNARDINO Acyclovir Sodium 760 mg/ (Sodium Chloride) 265.2 mls @ 265.2 mls/hr IV Q8H ON LICENSE OF [facility] Last Infusion: 06/06/24 06:25 Dose: Infused Documented By: BERNARDINO Insulin Human Lispro (Insulin Lispro 100 Unit/Ml 3 Ml Vial) 0 unit SUBCUT QIDACHS ON LICENSE OF [facility]; Protocol Last Admin: 06/06/24 08:35 Dose: 2 unit Documented By: JOAN Lidocaine/Diphenhydr/Alum/Mg/Simeth (Mag&Al/Sim/Diphenhyd/Lidocaine 10 Ml Oral.Susp) 10 ml PO Q4H PRN; Protocol PRN Reason: mouth pain Last Admin: 06/03/24 03:54 Dose: 10 ml Documented By: FELIPE Comments: c/o mouth pain Methotrexate (Methotrexate Sodium 2.5 Mg Tablet) 15 mg PO MO ON LICENSE OF [facility] Morphine Sulfate (Morphine Sulfate 2 Mg/Ml Cartridge) 2 mg IVPUSH Q3H PRN; Protocol PRN Reason: severe pain Last Admin: 06/06/24 04:44 Dose: 2 mg Documented By: BERNARDINO Multi-Ingred Medicated Throat [place] (Throat [place], Medicated 177 Ml Bottle) 1 spray MUCOUS MEM Q2H PRN PRN Reason: Sore throat Last Admin: 06/06/24 04:47 Dose: 1 spray Documented By: BERNARDINO Ondansetron HCl (Ondansetron Hcl 4 Mg/2 Ml Vial) 4 mg IVPUSH Q8H PRN PRN Reason: Nausea Prednisone (Prednisone 2.5 Mg Tablet) 2.5 mg PO DAILY ON LICENSE OF [facility] Last Admin: 06/06/24 08:39 Dose: 2.5 mg Documented By: JOAN Quetiapine Fumarate (Quetiapine Fumarate 25 Mg Tablet) 25 mg PO BID ON LICENSE OF [facility] Last Admin: 06/06/24 08:38 Dose: 25 mg Documented By: JOAN Sodium Biphosphate/Sodium Phosphate (Sodium Phosphate,[place]-Dibasic 133 Ml Enema) 118 ml CA DAILY PRN PRN Reason: Constipation Sodium Chloride (0.9 % Sodium Chloride Flush 3 Ml Syringe) 3 ml IVFLUSH QSHIFT ON LICENSE OF [facility] Last Admin: 06/06/24 08:35 Dose: 3 ml Documented By: JOAN Triamcinolone Acetonide (Triamcinolone Acet 0.1 % Cream 15 Gm Tube) 1 appl TOPICAL BID ON LICENSE OF [facility]; Protocol Last Admin: 06/06/24 08:40 Dose: 1 appl Documented By: JOAN Labs 06/05/24 07:06 06/06/24 06:30 Labs: Laboratory Results - last 24 hr 06/05/24 06/05/24 06/05/24 10:18 10:21 11:43 Anion Gap Estim Creat Clear Calc Estimated GFR POC Glucose 143 H Random Glucose Calcium Magnesium Ammonia 27 Troponin I High Sens 13.8 D 06/05/24 06/05/24 06/05/24 13:16 15:52 20:23 Anion Gap Estim Creat Clear Calc Estimated GFR POC Glucose 234 H 98 Random Glucose Calcium Magnesium Ammonia Troponin I High Sens 13.5 06/06/24 06/06/24 06:30 08:00 Anion Gap 15 Estim Creat Clear Calc 69.3 Estimated GFR > 60 POC Glucose 187 H Random Glucose 142 H Calcium 8.8 Magnesium 1.7 Ammonia Troponin I High Sens Microbiology Microbiology Results: Microbiology 06/01/24 07:24 Blood Culture - Final Blood - Venous No growth after 5 days. 06/01/24 07:24 Blood Culture - Final Blood - Venous No growth after 5 days. Assessment and Plan (1) Septic shock: Status: Acute Assessment and Plan: d10 79yo chronically bedbound M long-term resident of [facility] with MS, chronic Nunez, hx bullous pemphigoid on chronic steroids, mood disorder, HLD, HTN, DM2 presented with hematuria, became hypotensive and found to have septic shock and so admitted to ICU for pressor support found to have polymicrobial GNR bacteremia. Pt has hx of bullous pemphigoid possibly provoked by ertapenem and so was treated with Zosyn with improvement; sendout susceptibilities on the E. coli ESBL pending stepped down to telemetry 05/31 septic shock due to ESBL + Proteus + Pseudomonas bacteremia - resolved, off norepi drip and now hypertensive; restarted amlodipine and will now add carvedilol - continue pip-sterling started 05/28-, ID consulted, sendout susceptibilties on ESBL E coli pending, recheck BCx from 06/01 are clear - Urology consulted given multiple GNRs + indwelling Nunez pending. Recommend outpt suprapubic catheter. acute encephalopathy due to infection/hospitalization - continue to treat bacteremia. started low-dose quetiapine. Neuro consulted; no concern for encephalitis. mental status improved today. 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; started acyclovir IV 10 mg/kg q8h 06/02-; also magic mouthwash; prn morphine for pain chest pain, atypical - troponins negative/flat, no ischemic EKG changes hypoK - repleted hyperNa, mild - resolved dysphagia - seen by MYSQL DATABASE ADMINISTRATOR, cleared for NDD2 solids + nectar liquids; d/c'ed NGT 06/01 anemia of chronic disease - H+H stable bullous pemphigoid - resumed chronic prednisone + MTX HLD - resumed statin HTN - amlodipine as above DM2 - [place]-dose lispro VTE ppx - LMWH dispo - eventual return to LTC @ [facility] In my clinical judgment, the patient requires continued inpatient hospitalization for the following reasons: IV ABX, bacteremia, encephalopathy Total time managing care of this patient today: 40 minutes. Quality Stroke Does the patient have a stroke diagnosis?: No VTE Prior VTE?: No VTE Risk Level:: Medical - low VTE Device Contraindication: N/A - Device Ordered VTE Drug Contraindication: N/A - Med Ordered
[2024-06-06] MEDS: Folic Acid 1 MG TABLET PO (11:53)
[2024-06-06 12:01] LABS: Glucose, Whole Blood 109 mg/dL (60-115)
[2024-06-06 16:01] LABS: Glucose, Whole Blood 126 mg/dL (60-115)
[2024-06-06 20:49] LABS: Glucose, Whole Blood 183 mg/dL (60-115)
--- NOTE | 2024-06-06 23:49 | PC.NURSE ---
Assumed care of patient at 19:00. Please see shift assessment for full details. Bed alarm on and safety measures in place. Handoff report given 23:30.
[2024-06-07] VITALS (10 sets, daily range): BP systolic 137–176; BP diastolic 58–81; PULSE 96–114; RESP 18–20; TEMP 36.1–36.6; O2SAT 94–100; BMI 21.6
[2024-06-07] MEDS: Morphine Sulfate 2 MG/ML CARTRIDGE IVPUSH (03:11)
[2024-06-07] MEDS: Piperacillin Sodium/Tazobactam 3.375 GM in 0.9 % Sodium Chloride 50 ML IV ×4 (03:48→22:41)
[2024-06-07 06:58] LABS: Glucose, Whole Blood 113 mg/dL (60-115)
[2024-06-07] MEDS: amLODIPine Besylate 10 MG TABLET PO (09:25)
[2024-06-07] MEDS: Atorvastatin Calcium 40 MG TABLET PO (09:25)
[2024-06-07] MEDS: Famotidine 20 MG TABLET PO ×2 (09:29→20:59)
[2024-06-07] MEDS: QUEtiapine Fumarate 25 MG TABLET PO ×2 (09:29→21:01)
[2024-06-07] MEDS: carvediloL 3.125 MG TABLET PO ×2 (09:29→20:59)
[2024-06-07] MEDS: 0.9 % Sodium Chloride Flush 3 ML SYRINGE IVFLUSH ×3 (09:30→23:15)
[2024-06-07] MEDS: predniSONE 2.5 MG TABLET PO (09:31)
[2024-06-07] MEDS: Triamcinolone Acet 0.1 % Cream 15 GM TUBE 1 APPL TOPICAL ×2 (09:31→21:02)
[2024-06-07 10:54] LABS: Glucose, Whole Blood 135 mg/dL (60-115)
--- NOTE | 2024-06-07 11:07 | MHC.CLN ---
F/U PO INTAKE VARIABLE RANGING FROM 25-75% DIET RX:GROUND WITH NECTAR THICK LIQUIDS PER FILLING MIXER NOTED PT WITH MOUTH SORES/DIFFICULTY EATING-TREATMENTS ADDED FOR ORAL LESIONS: ACYCLOVIR, MAGIC MOUTHWASH, PRN MORPHINE IN ADDITION, PT RECEIVING ENSURE MAX BID TO PROMOTE WOUND HEALING SUPPLEMENT PROVIDES 300 KCALS, 60 G PROTEIN SKIN WITH DTI TO COCCYX & STAGE 2 SACRUM MONITOR PO INTAKE AND ENCOURAGE SUPPLEMENTS
--- NOTE | 2024-06-07 11:23 | MHC.CM.PN ---
Per ROUNDS discussion, Patient is not yet medically cleared for dc (IV ABT/Bacteremia, IV Morphine/pain management); Returning to LTC is the goal and CM will continue to follow.
[2024-06-07] MEDS: metHOTREXate sodium 2.5 MG TABLET 15 MG PO (12:03)
--- NOTE | 2024-06-07 15:05 | HO.PM.IMPN ---
Subjective Subjective Date of Service: 06/08/24 Interval History: Being followed for septic shock due to polymicrobial bacteremia. At present patient is awake alert answering questions appropriately at times difficult to understand. Complaining of discomfort of mouth nose and lips at bedside feeding patient, he tolerated diet well, as per he has not at his baseline when he is able to feed himself and communicate all his needs. Review of Systems All other system are reviewed and are negative Physical Exam Vital Signs: Vital Signs: Last Vital Signs Temp 97.0 F 06/07/24 11:12 Pulse 101 H 06/07/24 11:12 Resp 20 06/07/24 11:12 BP 167/73 H 06/07/24 11:12 Pulse Ox 94 06/07/24 11:12 O2 Del Method Room Air 06/07/24 11:12 BMI result Body Mass Index 21.6 Const: Other: Gen: alert, oriented HEENT: sclera anicteric, moist mucus membranes, lower lip swollen with significant dry crusted scabs/dry scab noted at bilateral nares Neck: supple Lungs: clear to auscultation bilaterally Heart: regular, no murmurs Abd: soft, non-tender, non-distended Ext: no edema Skin: warm/well-perfused/multiple ecchymosis bilateral upper and lower extremities Neuro: alert, oriented to self and place Psych: Awake alert, following directions, answering questions appropriately Objective Data Active Medications Acetaminophen (Acetaminophen 325 Mg Tablet) 650 mg PO Q6H PRN PRN Reason: Fever >101 Last Admin: 06/01/24 20:44 Dose: 650 mg Documented By: FELIPE Amlodipine Besylate (Amlodipine Besylate 10 Mg Tablet) 10 mg PO DAILY [facility]; Protocol Last Admin: 06/07/24 09:25 Dose: 10 mg Documented By: ROMAN Artificial Tears (Artificial Tears 15 Ml Drops) 1 drop EYE-BOTH Q4H PRN PRN Reason: Dry eyes Last Admin: 06/06/24 04:47 Dose: 1 drop Documented By: BERNARDINO Atorvastatin Calcium (Atorvastatin Calcium 40 Mg Tablet) 40 mg PO DAILY [facility] Last Admin: 06/07/24 09:25 Dose: 40 mg Documented By: ROMAN Bisacodyl (Bisacodyl 10 Mg Supp.Rect) 10 mg [place] DAILY PRN PRN Reason: Constipation Carvedilol (Carvedilol 3.125 Mg Tablet) 3.125 mg PO BID [facility]; Protocol Last Admin: 06/07/24 09:29 Dose: 3.125 mg Documented By: ROMAN Famotidine (Famotidine 20 Mg Tablet) 20 mg PO BID [facility] Last Admin: 06/07/24 09:29 Dose: 20 mg Documented By: ROMAN Folic Acid (Folic Acid 1 Mg Tablet) 1 mg PO SUTUWETHFRSA [facility] Last Admin: 06/06/24 11:53 Dose: 1 mg Documented By: JOAN Glucose (Glucose Gel 15 Gm Gel..Gram.) 15 gm PO Q15M PRN; Protocol PRN Reason: per Hypoglycemia Standing Ord. Glucose (Glucose Gel 15 Gm Gel..Gram.) 15 gm PO Q15M PRN; Protocol PRN Reason: per Hypoglycemia Standing Ord. Dextrose (D10) 250 mls @ 750 mls/hr IV Q15M PRN; Protocol PRN Reason: per Hypoglycemia Standing Ord. Dextrose (D10) 250 mls @ 750 mls/hr IV Q30M PRN PRN Reason: BG <70 Piperacillin Sod/Tazobactam (Sod 3.375 gm/ Sodium Chloride) 50 mls @ 100 mls/hr IV Q6H [facility] Last Infusion: 06/07/24 10:13 Dose: Infused Documented By: ROMAN Acyclovir Sodium 760 mg/ (Sodium Chloride) 265.2 mls @ 265.2 mls/hr IV Q8H [facility] Last Admin: 06/07/24 14:45 Dose: 265.2 mls/hr Documented By: ROMAN Insulin Human Lispro (Insulin Lispro 100 Unit/Ml 3 Ml Vial) [facility] Protocol Last Admin: 06/07/24 11:44 Dose: Not Given Documented By: ROMAN Non-Admin Reason: No Insulin Coverage Lidocaine/Diphenhydr/Alum/Mg/Simeth (Mag&Al/Sim/Diphenhyd/Lidocaine 10 Ml Oral.Susp) 10 ml PO Q4H PRN; Protocol PRN Reason: mouth pain Last Admin: 06/03/24 03:54 Dose: 10 ml Documented By: FELIPE Comments: c/o mouth pain Methotrexate (Methotrexate Sodium 2.5 Mg Tablet) 15 mg PO MO [facility] Last Admin: 06/07/24 12:03 Dose: 15 mg Documented By: ROMAN Multi-Ingred Medicated Throat [place] (Throat [place], Medicated 177 Ml Bottle) 1 spray MUCOUS MEM Q2H PRN PRN Reason: Sore throat Last Admin: 06/06/24 04:47 Dose: 1 spray Documented By: BERNARDINO Ondansetron HCl (Ondansetron Hcl 4 Mg/2 Ml Vial) 4 mg IVPUSH Q8H PRN PRN Reason: Nausea Prednisone (Prednisone 2.5 Mg Tablet) 2.5 mg PO DAILY [facility] Last Admin: 06/07/24 09:31 Dose: 2.5 mg Documented By: ROMAN Quetiapine Fumarate (Quetiapine Fumarate 25 Mg Tablet) 25 mg PO BID [facility] Last Admin: 06/07/24 09:29 Dose: 25 mg Documented By: ROMAN Sodium Biphosphate/Sodium Phosphate (Sodium Phosphate,[place]-Dibasic 133 Ml Enema) 118 ml [place] DAILY PRN PRN Reason: Constipation Sodium Chloride (0.9 % Sodium Chloride Flush 3 Ml Syringe) 3 ml IVFLUSH QSHIFT [facility] Last Admin: 06/07/24 09:30 Dose: 3 ml Documented By: ROMAN Triamcinolone Acetonide (Triamcinolone Acet 0.1 % Cream 15 Gm Tube) 1 appl TOPICAL BID [facility]; Protocol Last Admin: 06/07/24 09:31 Dose: 1 appl Documented By: ROMAN Labs 06/05/24 07:06 06/06/24 06:30 Labs: Laboratory Results - last 24 hr 06/06/24 06/06/24 06/07/24 15:57 20:45 06:55 POC Glucose 126 H 183 H 113 06/07/24 10:51 POC Glucose 135 H Assessment and Plan (1) Septic shock: Status: Acute Assessment and Plan: 79yo chronically bedbound M long-term resident of [facility] with MS, chronic Nunez, hx bullous pemphigoid on chronic steroids, mood disorder, HLD, HTN, DM2 presented with hematuria, became hypotensive and found to have septic shock and so admitted to ICU for pressor support found to have polymicrobial GNR bacteremia. Pt has hx of bullous pemphigoid possibly provoked by ertapenem and so was treated with Zosyn with improvement; sendout susceptibilities on the E. coli ESBL pending stepped down to telemetry 05/31 septic shock due to ESBL + Proteus + Pseudomonas bacteremia - resolved, off norepi drip and now hypertensive on amlodipine and carvedilol 6.25 b.i.d., previously on losartan currently on hold, follow BP and adjust medications - continue pip-sterling started 05/28-, ID consulted, send out susceptibilties on ESBL E coli pending, recheck BCx from 06/01 are clear Id recommend 14 days of total antibiotic will transition to by mouth Augmentin upon dc - Urology consulted given multiple GNRs + indwelling Nunez . Recommend outpt suprapubic catheter. acute encephalopathy due to infection/hospitalization - continue to treat bacteremia. started low-dose quetiapine. Neuro consulted; no concern for encephalitis. mental status gradually improving. 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; on acyclovir IV 10 mg/kg q8h 06/02-; also magic mouthwash; prn morphine for pain, apply Vaseline/bacitracin ointment Acute hypoK and mild hypernatremia resolved dysphagia - seen by CORPORATE TAX MANAGER, cleared for NDD2 solids + nectar liquids, tolerating diet requiring one-to-one feed anemia of chronic disease - H+H stable bullous pemphigoid - continue chronic prednisone + MTX HLD - resumed statin HTN - amlodipine as above DM2 - [place]-dose lispro VTE ppx - LMWH dispo - eventual return to LTC @ [facility] In my clinical judgment, the patient requires continued inpatient hospitalization for the following reasons: IV ABX, bacteremia, encephalopathy Total time managing care of this patient today: 40 minutes. Quality Stroke Does the patient have a stroke diagnosis?: No VTE Prior VTE?: No VTE Risk Level:: Medical - low VTE Device Contraindication: N/A - Device Ordered VTE Drug Contraindication: N/A - Med Ordered
[2024-06-07 16:39] LABS: Glucose, Whole Blood 129 mg/dL (60-115)
[2024-06-07 21:16] LABS: Glucose, Whole Blood 170 mg/dL (60-115)
[2024-06-08 03:46] VITALS: BP 152/67; PULSE 99; RESP 18; TEMP 36; O2SAT 100
[2024-06-08] MEDS: Piperacillin Sodium/Tazobactam 3.375 GM in 0.9 % Sodium Chloride 50 ML IV ×4 (04:00→22:52)
[2024-06-08 06:00] VITALS: BMI 22.7
[2024-06-08 06:59] LABS: Glucose, Whole Blood 139 mg/dL (60-115)
[2024-06-08 07:27] VITALS: BP 150/66; PULSE 103; RESP 20; TEMP 36.6; O2SAT 96
[2024-06-08] MEDS: predniSONE 2.5 MG TABLET PO (10:20)
[2024-06-08] MEDS: Atorvastatin Calcium 40 MG TABLET PO (10:20)
[2024-06-08] MEDS: Famotidine 20 MG TABLET PO ×2 (10:20→20:05)
[2024-06-08] MEDS: amLODIPine Besylate 10 MG TABLET PO (10:20)
[2024-06-08] MEDS: QUEtiapine Fumarate 25 MG TABLET PO ×2 (10:20→20:05)
[2024-06-08] MEDS: carvediloL 3.125 MG TABLET PO ×2 (10:21→20:04)
[2024-06-08] MEDS: Triamcinolone Acet 0.1 % Cream 15 GM TUBE 1 APPL TOPICAL ×2 (10:24→20:41)
[2024-06-08] MEDS: 0.9 % Sodium Chloride Flush 3 ML SYRINGE IVFLUSH ×3 (10:25→23:28)
[2024-06-08 10:48] LABS: Glucose, Whole Blood 214 mg/dL (60-115)
[2024-06-08 11:11] VITALS: BP 176/76; PULSE 105; RESP 20; TEMP 36.6; O2SAT 99
[2024-06-08] MEDS: Folic Acid 1 MG TABLET PO (11:33)
[2024-06-08] MEDS: Insulin Lispro 100 UNIT/ML 3 ML VIAL SUBCUT ×2 (11:34→20:40)
--- NOTE | 2024-06-08 14:32 | MHC.SPEECHCO ---
Pt seen with Lunch tray at his bedside. It appears that another member of the Staff attempted to feed him. When PROGRESSIVE CARE UNIT REGISTERED NURSE attempted, Pt began to violently swat the PO offerings away. He is perseverating on wanting to get into his wheelchair and go upstairs . He remarks that he thinks he is at his own home. Lower lip wound is notably more scarred than on initiail presentation. He is more intelligible, but remains tangential in language content. PROGRESSIVE CARE UNIT REGISTERED NURSE will continue to follow.
[2024-06-08 15:25] VITALS: BP 174/86; PULSE 98; RESP 17; TEMP 36.5; O2SAT 99
[2024-06-08 16:12] LABS: Glucose, Whole Blood 141 mg/dL (60-115)
--- NOTE | 2024-06-08 16:13 | P.PNIM_ITS ---
Subjective Subjective Date of Service: 06/09/24 Interval History: Patient more awake alert answering questions appropriately, complaining of oral sores, wishes to return back to rehab, speech sometimes clear otherwise gibberish. Poor by mouth intake, no nausea, no vomiting, no diarrhea. Review of Systems All other system are reviewed and are negative Physical Exam 2 Vital Signs: Vital Signs: Last Vital Signs Temp 97.7 F 06/08/24 15:25 Pulse 98 06/08/24 15:25 Resp 17 06/08/24 15:25 BP 174/86 H 06/08/24 15:25 Pulse Ox 99 06/08/24 15:25 O2 Del Method Room Air 06/08/24 15:25 BMI result Body Mass Index 22.7 Const: Other: Gen: alert, oriented HEENT: sclera anicteric, moist mucus membranes, lower lip swollen with significant dry crusted scabs/dry scab noted at bilateral nares unchanged in last 24 hours Neck: supple Lungs: clear to auscultation bilaterally Heart: regular, no murmurs Abd: soft, non-tender, non-distended Ext: no edema Skin: warm/well-perfused/multiple ecchymosis bilateral upper and lower extremities Neuro: alert, oriented to self and place Psych: Awake alert, following directions, answering questions appropriately Objective Data Active Medications Acetaminophen (Acetaminophen 325 Mg Tablet) 650 mg PO Q6H PRN PRN Reason: Fever >101 Last Admin: 06/01/24 20:44 Dose: 650 mg Documented By: FELIPE Amlodipine Besylate (Amlodipine Besylate 10 Mg Tablet) 10 mg PO DAILY [facility]; Protocol Last Admin: 06/08/24 10:20 Dose: 10 mg Documented By: ARNULFO Artificial Tears (Artificial Tears 15 Ml Drops) 1 drop EYE-BOTH Q4H PRN PRN Reason: Dry eyes Last Admin: 06/06/24 04:47 Dose: 1 drop Documented By: BERNARDINO Atorvastatin Calcium (Atorvastatin Calcium 40 Mg Tablet) 40 mg PO DAILY [facility] Last Admin: 06/08/24 10:20 Dose: 40 mg Documented By: ARNULFO Bisacodyl (Bisacodyl 10 Mg Supp.Rect) 10 mg ME DAILY PRN PRN Reason: Constipation Carvedilol (Carvedilol 3.125 Mg Tablet) 3.125 mg PO BID [facility]; Protocol Last Admin: 06/08/24 10:21 Dose: 3.125 mg Documented By: ARNULFO Famotidine (Famotidine 20 Mg Tablet) 20 mg PO BID [facility] Last Admin: 06/08/24 10:20 Dose: 20 mg Documented By: ARNULFO Folic Acid (Folic Acid 1 Mg Tablet) 1 mg PO [facility] Last Admin: 06/08/24 11:33 Dose: 1 mg Documented By: ARNULFO Glucose (Glucose Gel 15 Gm Gel..Gram.) 15 gm PO Q15M PRN; Protocol PRN Reason: per Hypoglycemia Standing Ord. Glucose (Glucose Gel 15 Gm Gel..Gram.) 15 gm PO Q15M PRN; Protocol PRN Reason: per Hypoglycemia Standing Ord. Dextrose (D10) 250 mls @ 750 mls/hr IV Q15M PRN; Protocol PRN Reason: per Hypoglycemia Standing Ord. Dextrose (D10) 250 mls @ 750 mls/hr IV Q30M PRN PRN Reason: BG <70 Piperacillin Sod/Tazobactam (Sod 3.375 gm/ Sodium Chloride) 50 mls @ 100 mls/hr IV Q6H [facility] Last Infusion: 06/08/24 11:38 Dose: Infused Documented By: ARNULFO Acyclovir Sodium 760 mg/ (Sodium Chloride) 265.2 mls @ 265.2 mls/hr IV Q8H [facility] Last Admin: 06/08/24 15:11 Dose: 265.2 mls/hr Documented By: ARNULFO Insulin Human Lispro (Insulin Lispro 100 Unit/Ml 3 Ml Vial) 0 unit SUBCUT QIDACHS [facility]; Protocol Last Admin: 06/08/24 11:34 Dose: 4 unit Documented By: ARNULFO Lidocaine/Diphenhydr/Alum/Mg/Simeth (Mag&Al/Sim/Diphenhyd/Lidocaine 10 Ml Oral.Susp) 10 ml PO Q4H PRN; Protocol PRN Reason: mouth pain Last Admin: 06/03/24 03:54 Dose: 10 ml Documented By: FELIPE Comments: c/o mouth pain Methotrexate (Methotrexate Sodium 2.5 Mg Tablet) 15 mg PO MO [facility] Last Admin: 06/07/24 12:03 Dose: 15 mg Documented By: ROMAN Multi-Ingred Medicated Throat [place] (Throat [place], Medicated 177 Ml Bottle) 1 spray MUCOUS MEM Q2H PRN PRN Reason: Sore throat Last Admin: 06/06/24 04:47 Dose: 1 spray Documented By: BERNARDINO Ondansetron HCl (Ondansetron Hcl 4 Mg/2 Ml Vial) 4 mg IVPUSH Q8H PRN PRN Reason: Nausea Prednisone (Prednisone 2.5 Mg Tablet) 2.5 mg PO DAILY [facility] Last Admin: 06/08/24 10:20 Dose: 2.5 mg Documented By: ARNULFO Quetiapine Fumarate (Quetiapine Fumarate 25 Mg Tablet) 25 mg PO BID [facility] Last Admin: 06/08/24 10:20 Dose: 25 mg Documented By: ARNULFO Sodium Biphosphate/Sodium Phosphate (Sodium Phosphate,[place]-Dibasic 133 Ml Enema) 118 ml ME DAILY PRN PRN Reason: Constipation Sodium Chloride (0.9 % Sodium Chloride Flush 3 Ml Syringe) 3 ml IVFLUSH QSHIFT [facility] Last Admin: 06/08/24 15:12 Dose: 3 ml Documented By: ARNULFO Triamcinolone Acetonide (Triamcinolone Acet 0.1 % Cream 15 Gm Tube) 1 appl TOPICAL BID [facility]; Protocol Last Admin: 06/08/24 10:24 Dose: 1 appl Documented By: ARNULFO Labs 06/09/24 11:12 06/09/24 11:12 Labs: Laboratory Results - last 24 hr 06/07/24 06/07/24 06/08/24 16:27 20:53 06:56 POC Glucose 129 H 170 H 139 H 06/08/24 06/08/24 10:43 16:01 POC Glucose 214 H 141 H Assessment and Plan (1) Septic shock: Status: Acute Assessment and Plan: 79yo chronically bedbound M long-term resident of [facility] SN[facility] with MS, chronic Nunez, hx bullous pemphigoid on chronic steroids, mood disorder, HLD, HTN, DM2 presented with hematuria, became hypotensive and found to have septic shock and so admitted to ICU for pressor support found to have polymicrobial GNR bacteremia. Pt has hx of bullous pemphigoid possibly provoked by ertapenem and so was treated with Zosyn with improvement; sendout susceptibilities on the E. coli ESBL pending stepped down to telemetry 05/31 septic shock due to ESBL + Proteus + Pseudomonas bacteremia - resolved, off norepi drip and now hypertensive on amlodipine and carvedilol 6.25 b.i.d., previously on losartan currently on hold, follow BP and adjust medications - continue pip-sterling started 05/28-, ID consulted, send out susceptibilties on ESBL E coli pending, recheck BCx from 06/01 are clear Id recommend 14 days of total antibiotic will transition to by mouth Augmentin upon dc - Urology consulted given multiple GNRs + indwelling Nunez . Recommend outpt suprapubic catheter. acute encephalopathy due to infection/hospitalization - as per not at his baseline, with persistent mild confusion worse in afternoon, continue to treat bacteremia. started low-dose quetiapine. Neuro consulted; no concern for encephalitis. Will DC a.m. Seroquel, follow labs. 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 anemia of chronic disease - H+H stable, follow CBC bullous pemphigoid - continue chronic prednisone + MTX HLD - on statin HTN - amlodipine and Coreg follow BP DM2 - stable blood sugars, decreased by mouth intake, [place]-dose lispro VTE ppx Bilateral compression boot dispo - eventual return to LTC @ [facility] In my clinical judgment, the patient requires continued inpatient hospitalization for the following reasons: IV ABX, bacteremia, encephalopathy Total time managing care of this patient today: 40 minutes. Quality Stroke Does the patient have a stroke diagnosis?: No VTE Prior VTE?: No VTE Risk Level:: Medical - low VTE Device Contraindication: N/A - Device Ordered VTE Drug Contraindication: N/A - Med Ordered
[2024-06-08] MEDS: Mag&Al/Sim/Diphenhyd/Lidocaine 10 ML ORAL.SUSP PO ×2 (18:18→20:05)
[2024-06-08 19:47] VITALS: BP 159/74; PULSE 107; RESP 23; TEMP 37.2; O2SAT 96
[2024-06-08 20:29] LABS: Glucose, Whole Blood 215 mg/dL (60-115)
[2024-06-09] VITALS (7 sets, daily range): BP systolic 149–191; BP diastolic 70–94; PULSE 60–121; RESP 16–22; TEMP 36.2–37.1; O2SAT 98–100
[2024-06-09] MEDS: Piperacillin Sodium/Tazobactam 3.375 GM in 0.9 % Sodium Chloride 50 ML IV ×4 (04:17→21:08)
[2024-06-09 07:51] LABS: Glucose, Whole Blood 125 mg/dL (60-115)
[2024-06-09] MEDS: Famotidine 20 MG TABLET PO ×2 (08:29→21:08)
[2024-06-09] MEDS: amLODIPine Besylate 10 MG TABLET PO (08:29)
[2024-06-09] MEDS: predniSONE 2.5 MG TABLET PO (08:29)
[2024-06-09] MEDS: Atorvastatin Calcium 40 MG TABLET PO (08:30)
[2024-06-09] MEDS: carvediloL 3.125 MG TABLET PO ×2 (08:30→13:45)
[2024-06-09] MEDS: Mag&Al/Sim/Diphenhyd/Lidocaine 10 ML ORAL.SUSP PO ×4 (08:31→21:08)
[2024-06-09] MEDS: Triamcinolone Acet 0.1 % Cream 15 GM TUBE 1 APPL TOPICAL ×2 (08:42→21:17)
--- NOTE | 2024-06-09 11:34 | MHC.CM.PN ---
Pt is still requiring acute care for treatment with IV ABX, encephalophy, bacteremia. DCP is return to LTC are [facility], [facility] to [facility].
--- NOTE | 2024-06-09 11:44 | MHC.CLN ---
F/U PO INTAKE REMAINS VARIABLE RANGING FROM 25-75% DIET RX:GROUND WITH NECTAR THICK LIQUIDS PER TWISTER TENDER PT REQUIRES 1:1 FEED-NOTED PT DOES REFUSE PO AT TIMES PT RECEIVING ENSURE MAX BID TO PROMOTE WOUND HEALING SUPPLEMENT PROVIDES 300 KCALS, 60 G PROTEIN WITH 100% ACCEPTANCE MONITOR PO INTAKE AND ENCOURAGE SUPPLEMENTS
[2024-06-09 11:50] LABS: Hematocrit 25.5 % (42.0-52.0); Hemoglobin 8.4 g/dl (14.0-18.0); Mean Corpuscular HGB Conc 32.9 g/dl (31.0-36.0); Mean Corpuscular Volume 91.1 fL (80.0-98.0); Mean Platelet Volume 9.8 fL (9.4-12.4); Platelet Count 270 X10*3/uL (160-400); Red Cell Distribution Width 18.1 % (11.0-16.0); White Blood Count 6.9 X10*3/uL (4.8-10.8)
[2024-06-09 12:03] LABS: Ammonia 26 umol/L (13-55)
[2024-06-09 12:07] LABS: Glucose, Whole Blood 123 mg/dL (60-115)
[2024-06-09 12:15] LABS: Alanine Aminotransferase 102 U/L (0-40); Albumin Level 3.3 g/dL (3.5-5.0); Alkaline Phosphatase 106 U/L (39-117); Anion Gap 13 (12-20); Aspartate Amino Transferase 170 U/L (5-37); Bilirubin Direct 0.5 mg/dL (0.0-0.5); Bilirubin Total 1.5 mg/dL (0.0-1.0); Blood Urea Nitrogen 16 mg/dL (9-16); Calcium 8.6 mg/dL (8.4-10.2); Carbon Dioxide 20 mmol/L (22-29); Chloride 116 mmol/L (96-108); Creatinine Clr Calc Pharmacy 59.8; Estimated Glomerular Filt Rate > 60; Glucose Random 139 mg/dL (60-115); Potassium 3.1 mmol/L (3.3-5.1); Sodium 146 mmol/L (135-145); Total Protein 6.5 g/dL (6.5-8.0)
[2024-06-09] MEDS: Folic Acid 1 MG TABLET PO (12:40)
--- NOTE | 2024-06-09 14:07 | MHC.SL.SWA ---
Risk of Aspiration Due to: Medically Fragile MS Dysphasia Diet Status: UPGRADE Liquid Consistency and Strategies for Safe Swallow: Liquid Intake Recommendation: Thin Liquid Intake Strategies: Small Sips No Straws Solid Food Consistency: Dietary Recommendations: Grnd/Mech Altered (NDD2) Additional Modifications to Solid Foods: 1-1 feed, frequent oral checks (patient may pocket food) alternate liquids/solids. Blend ground solids with gravies and purees. Oral Medication Intake: Crushed with Puree Please contact the pharmacy regarding appropriate crushable or liquid drug formulations that are available whenever modified delivery is recommended. Compensatory Strategies and Precautions to be Taken for Safe Swallow: Sitting Upright (90 deg) No Straw Liquids from Cup Small Bites and Sips Alternate Liquids/Solids Rate of Ingestion Change Oral Check Avoid Specific Foods Supervision While Eating and Drinking for Safe Swallow: Total Assistance (1:1) Swallowing Recommended Treatments: Compens. Strategy Educat. Recommendation for Speech: Inpatient Speech Therapy Comment: Recommend patient continue on current diet of Ground Mechanical Altered (NDD2) and pills crushed in puree. UPGRADE to thin liquids (NO STRAW). Pt requires 1-1 feed, frequent oral checks (patient may pocket food), and cues to alternate liquids/solids. Baseline diet is reportedly Regular with thin liquids. Consider outpatient instrumental swallow study d/t dx of MS. Frequency/Duration: M-F while inpatient. Fly Tier Clinican/Clinical Fellow: No Supervisory Statement: I have reviewed and agree with the student/clinical fellow's documentation: N/A Speech Language Pathologist: Pily Keller M.A., CCC-SYNTHETIC STAPLE EXTRUDER
--- NOTE | 2024-06-09 15:02 | HO.PM.IMPN ---
Subjective Subjective Date of Service: 06/09/24 Interval History: Being followed for polymicrobial bacteremia. No acute events overnight, patient wishes to return back to detention, at times clear , otherwise verbalizing and not making sense. Review of Systems Unable to obtain detailed review of system due to confusion. Physical Exam Vital Signs: Vital Signs: Last Vital Signs Temp 97.8 F 06/09/24 12:00 Pulse 98 06/09/24 12:00 Resp 16 06/09/24 12:00 BP 180/70 H 06/09/24 12:00 Pulse Ox 100 06/09/24 12:00 O2 Del Method Room Air 06/09/24 12:00 BMI result Body Mass Index 22.7 Const: Other: Gen: alert, oriented HEENT: sclera anicteric, moist mucus membranes, lower lip swollen with significant dry crusted scabs/dry scab noted at bilateral nares (improving no new lesions) Neck: supple,no jvd Lungs: clear to auscultation bilaterally Heart: regular, no murmurs Abd: soft, non-tender, non-distended Ext: no edema Skin: warm/well-perfused/multiple ecchymosis bilateral upper and lower extremities Neuro: Speech clear, pleasantly confused moving all 4 extremities Objective Data Active Medications Acetaminophen (Acetaminophen 325 Mg Tablet) 650 mg PO Q6H PRN PRN Reason: Fever >101 Last Admin: 06/01/24 20:44 Dose: 650 mg Documented By: FELIPE Amlodipine Besylate (Amlodipine Besylate 10 Mg Tablet) 10 mg PO DAILY [facility]; Protocol Last Admin: 06/09/24 08:29 Dose: 10 mg Documented By: ARNULFO Artificial Tears (Artificial Tears 15 Ml Drops) 1 drop EYE-BOTH Q4H PRN PRN Reason: Dry eyes Last Admin: 06/06/24 04:47 Dose: 1 drop Documented By: BERNARDINO Bisacodyl (Bisacodyl 10 Mg Supp.Rect) 10 mg NE DAILY PRN PRN Reason: Constipation Carvedilol (Carvedilol 6.25 Mg Tablet) 6.25 mg PO BID [facility]; Protocol Famotidine (Famotidine 20 Mg Tablet) 20 mg PO BID [facility] Last Admin: 06/09/24 08:29 Dose: 20 mg Documented By: ARNULFO Folic Acid (Folic Acid 1 Mg Tablet) [facility] Last Admin: 06/09/24 12:40 Dose: 1 mg Documented By: ARNULFO Glucose (Glucose Gel 15 Gm Gel..Gram.) 15 gm PO Q15M PRN; Protocol PRN Reason: per Hypoglycemia Standing Ord. Glucose (Glucose Gel 15 Gm Gel..Gram.) 15 gm PO Q15M PRN; Protocol PRN Reason: per Hypoglycemia Standing Ord. Dextrose (D10) 250 mls @ 750 mls/hr IV Q15M PRN; Protocol PRN Reason: per Hypoglycemia Standing Ord. Dextrose (D10) 250 mls @ 750 mls/hr IV Q30M PRN PRN Reason: BG <70 Piperacillin Sod/Tazobactam (Sod 3.375 gm/ Sodium Chloride) 50 mls @ 100 mls/hr IV Q6H [facility] Last Infusion: 06/09/24 10:32 Dose: Infused Documented By: ARNULFO Potassium Cl/Dextrose/Lact Ringer's (Kcl 20 Meq In 5 % Dex/Lact Rin) 20 meq in 1,000 mls @ 80 mls/hr IVCONT .[id number] [facility] Stop: 06/10/24 02:44 Insulin Human Lispro (Insulin Lispro 100 Unit/Ml 3 Ml Vial) 0 unit SUBCUT QIDACHS [facility]; Protocol Last Admin: 06/09/24 12:35 Dose: Not Given Documented By: ARNULFO Non-Admin Reason: No Insulin Coverage Lidocaine/Diphenhydr/Alum/Mg/Simeth (Mag&Al/Sim/Diphenhyd/Lidocaine 10 Ml Oral.Susp) 10 ml PO QID [facility]; Protocol Last Admin: 06/09/24 12:41 Dose: 10 ml Documented By: ARNULFO Methotrexate (Methotrexate Sodium 2.5 Mg Tablet) 15 mg PO MO [facility] Last Admin: 06/07/24 12:03 Dose: 15 mg Documented By: ROMAN Multi-Ingred Medicated Throat [place] (Throat [place], Medicated 177 Ml Bottle) 1 spray MUCOUS MEM Q2H PRN PRN Reason: Sore throat Last Admin: 06/06/24 04:47 Dose: 1 spray Documented By: BERNARDINO Ondansetron HCl (Ondansetron Hcl 4 Mg/2 Ml Vial) 4 mg IVPUSH Q8H PRN PRN Reason: Nausea Prednisone (Prednisone 2.5 Mg Tablet) 2.5 mg PO DAILY [facility] Last Admin: 06/09/24 08:29 Dose: 2.5 mg Documented By: ARNULFO Quetiapine Fumarate (Quetiapine Fumarate 25 Mg Tablet) 25 mg PO BEDTIME [facility] Sodium Biphosphate/Sodium Phosphate (Sodium Phosphate,[place]-Dibasic 133 Ml Enema) 118 ml NE DAILY PRN PRN Reason: Constipation Sodium Chloride (0.9 % Sodium Chloride Flush 3 Ml Syringe) 3 ml IVFLUSH QSHIFT [facility] Last Admin: 06/09/24 10:31 Dose: Not Given Documented By: ARNULFO Non-Admin Reason: IV Running Triamcinolone Acetonide (Triamcinolone Acet 0.1 % Cream 15 Gm Tube) 1 appl TOPICAL BID [facility]; Protocol Last Admin: 06/09/24 08:42 Dose: 1 appl Documented By: ARNULFO Labs 06/09/24 11:12 06/09/24 11:12 Labs: Laboratory Results - last 24 hr 06/08/24 06/08/24 06/09/24 16:01 20:04 07:47 MCV MCH MCHC RDW Plt Count MPV Absolute Nucleated RBC Nucleated RBC % (auto) Anion Gap Estim Creat Clear Calc Estimated GFR POC Glucose 141 H 215 H 125 H Random Glucose Calcium Total Bilirubin Direct Bilirubin AST ALT Alkaline Phosphatase Ammonia Total Protein Albumin 06/09/24 06/09/24 11:12 12:01 MCV 91.1 MCH 30.0 MCHC 32.9 RDW 18.1 H Plt Count 270 D MPV 9.8 Absolute Nucleated RBC 0.000 Nucleated RBC % (auto) 0.0 Anion Gap 13 Estim Creat Clear Calc 59.8 Estimated GFR > 60 POC Glucose 123 H Random Glucose 139 H Calcium 8.6 Total Bilirubin 1.5 H Direct Bilirubin 0.5 AST 170 H ALT 102 H Alkaline Phosphatase 106 Ammonia 26 Total Protein 6.5 Albumin 3.3 L Assessment and Plan (1) Septic shock: Status: Acute Assessment and Plan: 79yo chronically bedbound M long-term resident of [facility] SN[facility] with MS, chronic Nunez, hx bullous pemphigoid on chronic steroids, mood disorder, HLD, HTN, DM2 presented with hematuria, became hypotensive and found to have septic shock and so admitted to ICU for pressor support found to have polymicrobial GNR bacteremia. Pt has hx of bullous pemphigoid possibly provoked by ertapenem and so was treated with Zosyn with improvement; sendout susceptibilities on the E. coli ESBL pending stepped down to telemetry 05/31 septic shock due to ESBL + Proteus + Pseudomonas bacteremia - resolved, off vasopressors, now hypertensive on amlodipine and carvedilol 6.25 b.i.d., previously on losartan currently on hold, follow BP and adjust medications - continue pip-sterling started 05/28-, ID consulted, send out susceptibilties on ESBL E coli pending, recheck BCx from 06/01 are clear Id recommend 14 days of total antibiotic - Urology consulted given multiple GNRs + indwelling Nunez . Recommend outpt suprapubic catheter. acute encephalopathy due to infection/hospitalization - remains pleasantly confused, not at his baseline, continue to treat bacteremia DC IV acyclovir, replete electrolytes, decrease dose of Seroquel, Neuro consulted; no concern for encephalitis. oral lesions - improving, DC acyclovir due to elevated LFTs and confusion continue magic mouthwash, prn morphine for pain, apply Vaseline/bacitracin ointment Acute hypoK and mild hypernatremia IV fluid with potassium supplements dysphagia - seen by ORDER CHECKER PACKER PROCESSER, cleared for NDD2 solids , upgraded to clear liquids, tolerating diet requiring one-to-one feed. anemia of chronic disease - H+H stable, follow CBC bullous pemphigoid - continue chronic prednisone + MTX HLD - dc statin due to elevated LFT HTN - amlodipine and Coreg follow BP DM2 - stable blood sugars, decreased by mouth intake, [place]-dose lispro VTE ppx Bilateral compression boot dispo - eventual return to LTC @ [facility] In my clinical judgment, the patient requires continued inpatient hospitalization for the following reasons: IV ABX, bacteremia, encephalopathy Total time managing care of this patient today: 40 minutes. Quality Stroke Does the patient have a stroke diagnosis?: No VTE Prior VTE?: No VTE Risk Level:: Medical - low VTE Device Contraindication: N/A - Device Ordered VTE Drug Contraindication: N/A - Med Ordered
[2024-06-09] MEDS: Potassium Chloride Packet 20 MEQ PACKET PO (15:18)
[2024-06-09] MEDS: KCl 20 mEq in 5 % Dex/Lact Rin 20 MEQ/1,000 ML IV.SOLN 80 MEQ IVCONT (15:18)
[2024-06-09 16:27] LABS: Glucose, Whole Blood 184 mg/dL (60-115)
[2024-06-09] MEDS: Insulin Lispro 100 UNIT/ML 3 ML VIAL SUBCUT ×2 (16:37→21:08)
[2024-06-09 20:21] LABS: Glucose, Whole Blood 162 mg/dL (60-115)
[2024-06-09] MEDS: QUEtiapine Fumarate 25 MG TABLET PO (21:08)
[2024-06-09] MEDS: carvediloL 6.25 MG TABLET PO (21:08)
[2024-06-09] MEDS: 0.9 % Sodium Chloride Flush 3 ML SYRINGE IVFLUSH (21:10)
[2024-06-10] VITALS (7 sets, daily range): BP systolic 137–172; BP diastolic 65–86; PULSE 77–97; RESP 18–20; TEMP 36.1–36.9; O2SAT 98–100; BMI 23.3
[2024-06-10] MEDS: Piperacillin Sodium/Tazobactam 3.375 GM in 0.9 % Sodium Chloride 50 ML IV ×2 (03:30→09:04)
[2024-06-10 06:51] LABS: Alanine Aminotransferase 144 U/L (0-40); Albumin Level 3.1 g/dL (3.5-5.0); Alkaline Phosphatase 99 U/L (39-117); Anion Gap 10 (12-20); Aspartate Amino Transferase 196 U/L (5-37); Bilirubin Direct 0.4 mg/dL (0.0-0.5); Bilirubin Total 1.3 mg/dL (0.0-1.0); Blood Urea Nitrogen 14 mg/dL (9-16); Calcium 8.4 mg/dL (8.4-10.2); Carbon Dioxide 20 mmol/L (22-29); Chloride 116 mmol/L (96-108); Creatinine Clr Calc Pharmacy 65.3; Estimated Glomerular Filt Rate > 60; Glucose Random 150 mg/dL (60-115); Potassium 3.3 mmol/L (3.3-5.1); Sodium 143 mmol/L (135-145); Total Protein 5.9 g/dL (6.5-8.0)
[2024-06-10 07:20] LABS: Glucose, Whole Blood 124 mg/dL (60-115)
[2024-06-10] MEDS: Mag&Al/Sim/Diphenhyd/Lidocaine 10 ML ORAL.SUSP PO ×4 (09:03→22:00)
[2024-06-10] MEDS: carvediloL 6.25 MG TABLET PO ×2 (09:03→21:59)
[2024-06-10] MEDS: predniSONE 2.5 MG TABLET PO (09:04)
[2024-06-10] MEDS: amLODIPine Besylate 10 MG TABLET PO (09:04)
[2024-06-10] MEDS: Famotidine 20 MG TABLET PO ×2 (09:04→21:59)
[2024-06-10] MEDS: Triamcinolone Acet 0.1 % Cream 15 GM TUBE 1 APPL TOPICAL ×2 (09:05→22:01)
[2024-06-10] MEDS: 0.9 % Sodium Chloride Flush 3 ML SYRINGE IVFLUSH ×3 (09:05→22:01)
[2024-06-10] MEDS: Folic Acid 1 MG TABLET PO (09:10)
[2024-06-10] MEDS: Gabapentin 100 MG CAPSULE 200 MG PO ×3 (11:04→21:59)
[2024-06-10] MEDS: Potassium Chloride Packet 20 MEQ PACKET PO (11:04)
[2024-06-10 11:09] LABS: Glucose, Whole Blood 176 mg/dL (60-115)
[2024-06-10] MEDS: Insulin Lispro 100 UNIT/ML 3 ML VIAL SUBCUT ×2 (11:16→15:56)
--- NOTE | 2024-06-10 13:34 | MHC.SL.SWA ---
Speech Pathologist Impression: Risk of Aspiration Due to: Medically Fragile Dysphasia Diet Status: Recommend continue on current diet of Ground Mechanical (NDD2) with THIN liquids, pills whole in puree. Liquid Consistency and Strategies for Safe Swallow: Liquid Intake Recommendation: Thin Liquid Intake Strategies: Small Sips No Straws Solid Food Consistency: Dietary Recommendations: Grnd/Mech Altered (NDD2) Additional Modifications to Solid Foods: Intermittent supervision: Assure that patient has access to all food and drink items, is draped with towel and has wash cloth in lieu of paper napkin to clear any residue. Oral Medication Intake: Whole with Puree Please contact the pharmacy regarding appropriate crushable or liquid drug formulations that are available whenever modified delivery is recommended. Compensatory Strategies and Precautions to be Taken for Safe Swallow: Sitting Upright (90 deg) No Straw Liquids from Cup Small Bites and Sips Alternate Liquids/Solids Avoid Specific Foods Supervision While Eating and Drinking for Safe Swallow: Intermittent Supervision Foods to Avoid: Tough difficult to chew solids. Swallowing Recommended Treatments: Compens. Strategy Educat. Recommendation for Speech: Inpatient Speech Therapy Comment: Patient was seen at lunch, had been advanced to thin liquids yesterday. Patient presents to this therapist as back to cognitive baseline based on historical visits. Patient was awake, alert and communicative, but quite irritated by any action taken by GAS CHECK PAD MAKER to assist him with his food. Patient did note that his mouth still hurts. GAS CHECK PAD MAKER observed patient feeding himself bites of his ground lunch, able to scoop and feed self, producing a mildly prolonged munching pattern on the consistency followed by a timely swallow. Patient also electively to sips of water from a bottle present, unscrewing the lid, taking a quick sip, producing swallow after slight delay/absent swallow trigger. GAS CHECK PAD MAKER offered a variety of other liquids by cup or straw with patient refusing these offers. Patient appeared to be handling meal well independently at this visit, was draped with a towel, had a wash cloth with which he was wiping his mouth periodically, and seemed content with this level of independence. Recommend continue on current diet of Ground Mechanical (NDD2) with THIN liquids, pills whole in puree. RN notified of observation of patient's independence and recommendation of periodic supervision v. 1-1 feeding. Frequency/Duration: M-F while inpatient. Date Range for Service Req: Timeline to reassess: PRN Hog Ringer Clinican/Clinical Fellow: No Supervisory Statement: I have reviewed and agree with the student/clinical fellow's documentation: N/A Speech Language Pathologist: Corina Catalan M.A., [facility]-GAS CHECK PAD MAKER
--- NOTE | 2024-06-10 14:35 | P.PNIM_ITS ---
Subjective Subjective Date of Service: 06/10/24 Interval History: Being followed for septic shock. More awake alert answering questions appropriately tolerated breakfast, complaining of bilateral lower leg discomfort, and sore mouth, no acute events overnight. Review of Systems All other system are reviewed and are negative. Physical Exam 2 Vital Signs: Vital Signs: Last Vital Signs Temp 98.2 F 06/10/24 11:22 Pulse 93 06/10/24 11:22 Resp 18 06/10/24 11:22 BP 156/65 H 06/10/24 11:22 Pulse Ox 100 06/10/24 11:22 O2 Del Method Room Air 06/10/24 11:22 BMI result Body Mass Index 23.3 Const: Other: Gen: alert, oriented HEENT: sclera anicteric, moist mucus membranes, lower lip swollen with significant dry crusted scabs no new lesions. Neck: supple,no jvd Lungs: clear to auscultation bilaterally Heart: regular, no murmurs Abd: soft, non-tender, non-distended, bowel sounds audible Ext: no edema Skin: warm/well-perfused/multiple ecchymosis bilateral upper and lower extremities Neuro: Speech clear, answering questions appropriately Objective Data Active Medications Acetaminophen (Acetaminophen 325 Mg Tablet) 650 mg PO Q6H PRN PRN Reason: Fever >101 Last Admin: 06/01/24 20:44 Dose: 650 mg Documented By: FELIPE Amlodipine Besylate (Amlodipine Besylate 10 Mg Tablet) 10 mg PO DAILY [facility]; Protocol Last Admin: 06/10/24 09:04 Dose: 10 mg Documented By: JOAN Artificial Tears (Artificial Tears 15 Ml Drops) 1 drop EYE-BOTH Q4H PRN PRN Reason: Dry eyes Last Admin: 06/06/24 04:47 Dose: 1 drop Documented By: BERNARDINO Bisacodyl (Bisacodyl 10 Mg Supp.Rect) 10 mg RI DAILY PRN PRN Reason: Constipation Carvedilol (Carvedilol 6.25 Mg Tablet) 6.25 mg PO BID [facility]; Protocol Last Admin: 06/10/24 09:03 Dose: 6.25 mg Documented By: JOAN Famotidine (Famotidine 20 Mg Tablet) 20 mg PO BID [facility] Last Admin: 06/10/24 09:04 Dose: 20 mg Documented By: JOAN Folic Acid (Folic Acid 1 Mg Tablet) 1 mg PO SUTUWETHFRSA [facility] Last Admin: 06/10/24 09:10 Dose: 1 mg Documented By: JOAN Gabapentin (Gabapentin 100 Mg Capsule) 200 mg PO TID [facility] Last Admin: 06/10/24 11:04 Dose: 200 mg Documented By: JOAN Glucose (Glucose Gel 15 Gm Gel..Gram.) 15 gm PO Q15M PRN; Protocol PRN Reason: per Hypoglycemia Standing Ord. Glucose (Glucose Gel 15 Gm Gel..Gram.) 15 gm PO Q15M PRN; Protocol PRN Reason: per Hypoglycemia Standing Ord. Dextrose (D10) 250 mls @ 750 mls/hr IV Q15M PRN; Protocol PRN Reason: per Hypoglycemia Standing Ord. Dextrose (D10) 250 mls @ 750 mls/hr IV Q30M PRN PRN Reason: BG <70 Insulin Human Lispro (Insulin Lispro 100 Unit/Ml 3 Ml Vial) 0 unit SUBCUT QIDACHS [facility]; Protocol Last Admin: 06/10/24 11:16 Dose: 2 unit Documented By: JOAN Lidocaine/Diphenhydr/Alum/Mg/Simeth (Mag&Al/Sim/Diphenhyd/Lidocaine 10 Ml Oral.Susp) 10 ml PO QID [facility]; Protocol Last Admin: 06/10/24 13:03 Dose: 10 ml Documented By: JOAN Methotrexate (Methotrexate Sodium 2.5 Mg Tablet) 15 mg PO MO [facility] Last Admin: 06/07/24 12:03 Dose: 15 mg Documented By: ROMAN Multi-Ingred Medicated Throat Kermit (Throat Kermit, Medicated 177 Ml Bottle) 1 spray MUCOUS MEM Q2H PRN PRN Reason: Sore throat Last Admin: 06/06/24 04:47 Dose: 1 spray Documented By: BERNARDINO Ondansetron HCl (Ondansetron Hcl 4 Mg/2 Ml Vial) 4 mg IVPUSH Q8H PRN PRN Reason: Nausea Prednisone (Prednisone 2.5 Mg Tablet) 2.5 mg PO DAILY [facility] Last Admin: 06/10/24 09:04 Dose: 2.5 mg Documented By: JOAN Quetiapine Fumarate (Quetiapine Fumarate 25 Mg Tablet) 25 mg PO BEDTIME [facility] Last Admin: 06/09/24 21:08 Dose: 25 mg Documented By: TARA Sodium Biphosphate/Sodium Phosphate (Sodium Phosphate,[place]-Dibasic 133 Ml Enema) 118 ml RI DAILY PRN PRN Reason: Constipation Sodium Chloride (0.9 % Sodium Chloride Flush 3 Ml Syringe) 3 ml IVFLUSH QSHIFT [facility] Last Admin: 06/10/24 09:05 Dose: 3 ml Documented By: JOAN Triamcinolone Acetonide (Triamcinolone Acet 0.1 % Cream 15 Gm Tube) 1 appl TOPICAL BID [facility]; Protocol Last Admin: 06/10/24 09:05 Dose: 1 appl Documented By: JOAN Labs 06/09/24 11:12 06/10/24 06:15 Labs: Laboratory Results - last 24 hr 06/09/24 06/09/24 06/10/24 16:23 20:17 06:15 Hold Purple Top SEE NOTE Anion Gap 10 L Estim Creat Clear Calc 65.3 Estimated GFR > 60 POC Glucose 184 H 162 H Random Glucose 150 H Calcium 8.4 Total Bilirubin 1.3 H Direct Bilirubin 0.4 AST 196 H ALT 144 H Alkaline Phosphatase 99 Total Protein 5.9 L Albumin 3.1 L 06/10/24 06/10/24 07:07 10:54 Hold Purple Top Anion Gap Estim Creat Clear Calc Estimated GFR POC Glucose 124 H 176 H Random Glucose Calcium Total Bilirubin Direct Bilirubin AST ALT Alkaline Phosphatase Total Protein Albumin Assessment and Plan (1) Septic shock: Status: Acute Assessment and Plan: 79yo chronically bedbound M long-term resident of [facility] with MS, chronic Nunez, hx bullous pemphigoid on chronic steroids, mood disorder, HLD, HTN, DM2 presented with hematuria, became hypotensive and found to have septic shock and so admitted to ICU for pressor support found to have polymicrobial GNR bacteremia. Pt has hx of bullous pemphigoid possibly provoked by ertapenem and so was treated with Zosyn with improvement; sendout susceptibilities on the E. coli ESBL pending stepped down to telemetry 05/31 septic shock due to ESBL + Proteus + Pseudomonas bacteremia - resolved, off vasopressors, now hypertensive on amlodipine and carvedilol , previously on losartan currently on hold, follow BP and adjust medications - will DC IV Zosyn started 05/28- end 06/10, as per ID recommendation, send out susceptibilties on ESBL E coli pending, BCx from 06/01 are clear - Urology consulted given multiple GNRs + indwelling Nunez . Recommend outpt suprapubic catheter. acute encephalopathy due to infection/hospitalization - seems to have significantly improved, continue close clinical follow-up, Neuro consulted; no concern for encephalitis. oral lesions - improving, s/p acyclovir,06/02 to 06/09, discontinue due to elevated LFTs and confusion continue magic mouthwash, prn morphine for pain, apply Vaseline/bacitracin ointment Acute hypoK and mild hypernatremia repleted, DC IV fluids Elevated LFTs likely due to acyclovir, DC all hepatotoxins, no abdominal pain, tolerating diet, monitor LFTs. dysphagia - seen by [employer]ESSING [employer]CH, cleared for NDD2 solids , upgraded to clear liquids, tolerating diet requiring one-to-one feed. anemia of chronic disease - H+H stable, follow CBC bullous pemphigoid - continue chronic prednisone + MTX HLD - dc statin due to elevated LFT HTN - amlodipine and Coreg follow BP DM2 - stable blood sugars, decreased by mouth intake, [place]-dose lispro VTE ppx Bilateral compression boot dispo - eventual return to LTC @ [facility] In my clinical judgment, the patient requires continued inpatient hospitalization for the following reasons: Elevated LFTs, bacteremia, encephalopathy Total time managing care of this patient today: 40 minutes. Quality Stroke Does the patient have a stroke diagnosis?: No VTE Prior VTE?: No VTE Risk Level:: Medical - low VTE Device Contraindication: N/A - Device Ordered VTE Drug Contraindication: N/A - Med Ordered
[2024-06-10 15:45] LABS: Glucose, Whole Blood 152 mg/dL (60-115)
[2024-06-10] MEDS: Lactulose 20 GM/30 ML SOLUTION PO (15:56)
[2024-06-10 21:22] LABS: Glucose, Whole Blood 145 mg/dL (60-115)
[2024-06-10] MEDS: QUEtiapine Fumarate 25 MG TABLET PO (21:59)
[2024-06-11 04:00] VITALS: BP 150/77; PULSE 95; RESP 20; TEMP 36.2; O2SAT 100
[2024-06-11 05:36] VITALS: BMI 23.6
[2024-06-11 06:49] LABS: Alanine Aminotransferase 104 U/L (0-40); Albumin Level 2.8 g/dL (3.5-5.0); Alkaline Phosphatase 92 U/L (39-117); Anion Gap 9 (12-20); Aspartate Amino Transferase 97 U/L (5-37); Bilirubin Direct 0.3 mg/dL (0.0-0.5); Bilirubin Total 0.8 mg/dL (0.0-1.0); Blood Urea Nitrogen 17 mg/dL (9-16); Calcium 7.9 mg/dL (8.4-10.2); Carbon Dioxide 20 mmol/L (22-29); Chloride 114 mmol/L (96-108); Creatinine Clr Calc Pharmacy 78.5; Estimated Glomerular Filt Rate > 60; Glucose Random 139 mg/dL (60-115); Potassium 3.1 mmol/L (3.3-5.1); Sodium 140 mmol/L (135-145); Total Protein 5.6 g/dL (6.5-8.0)
[2024-06-11 07:11] LABS: Glucose, Whole Blood 119 mg/dL (60-115)
[2024-06-11 08:00] VITALS: BP 142/68; PULSE 85; RESP 20; TEMP 36.6; O2SAT 100
[2024-06-11 09:02] VITALS: BP 144/68
[2024-06-11] MEDS: Potassium Chloride Packet 20 MEQ PACKET 40 MEQ PO (09:02)
[2024-06-11] MEDS: amLODIPine Besylate 10 MG TABLET PO (09:02)
[2024-06-11] MEDS: Gabapentin 100 MG CAPSULE 200 MG PO ×2 (09:02→15:14)
[2024-06-11 09:03] VITALS: BP 144/68; PULSE 85
[2024-06-11] MEDS: carvediloL 6.25 MG TABLET PO (09:03)
[2024-06-11] MEDS: 0.9 % Sodium Chloride Flush 3 ML SYRINGE IVFLUSH ×2 (09:04→15:14)
[2024-06-11] MEDS: Folic Acid 1 MG TABLET PO (09:04)
[2024-06-11] MEDS: predniSONE 2.5 MG TABLET PO (09:04)
[2024-06-11] MEDS: Triamcinolone Acet 0.1 % Cream 15 GM TUBE 1 APPL TOPICAL (09:04)
[2024-06-11] MEDS: Mag&Al/Sim/Diphenhyd/Lidocaine 10 ML ORAL.SUSP PO ×2 (09:04→12:48)
[2024-06-11] MEDS: polyethylene glycoL 3350 17 GM POWD.PACK PO (09:04)
[2024-06-11] MEDS: Famotidine 20 MG TABLET PO (09:04)
[2024-06-11 11:42] LABS: Glucose, Whole Blood 95 mg/dL (60-115)
--- NOTE | 2024-06-11 11:42 | MHC.CLN ---
F/U PO INTAKE REMAINS VARIABLE RANGING FROM 25-75% DIET RX:GROUND M/S PER POWERHOUSE ATTENDANT PT REQUIRES 1:1 FEED-NOTED PT DOES REFUSE PO AT TIMES WT STABLE PT RECEIVING ENSURE MAX BID TO PROMOTE WOUND HEALING SUPPLEMENT PROVIDES 300 KCALS, 60 G PROTEIN WITH 100% ACCEPTANCE CONTINUE TO NMONITOR PO INTAKE AND ENCOURAGE SUPPLEMENTS
[2024-06-11 11:46] VITALS: BP 129/57; PULSE 79; RESP 20; TEMP 36; O2SAT 100
--- NOTE | 2024-06-11 12:41 | MHC.SL.SWA ---
Speech Pathologist Impression: Risk of Aspiration Due to: Medically Fragile Dysphasia Diet Status: Recommend continue on current diet of Ground Mechanical (NDD2) with THIN liquids, pills whole in puree. Liquid Consistency and Strategies for Safe Swallow: Liquid Intake Recommendation: Thin Liquid Intake Strategies: Small Sips No Straws Solid Food Consistency: Dietary Recommendations: Grnd/Mech Altered (NDD2) Additional Modifications to Solid Foods: Intermittent supervision: Assure that patient has access to all food and drink items, is draped with towel and has wash cloth in lieu of paper napkin to clear any residue. Oral Medication Intake: Whole with Puree Please contact the pharmacy regarding appropriate crushable or liquid drug formulations that are available whenever modified delivery is recommended. Compensatory Strategies and Precautions to be Taken for Safe Swallow: Sitting Upright (90 deg) No Straw Liquids from Cup Small Bites and Sips Alternate Liquids/Solids Avoid Specific Foods Supervision While Eating and Drinking for Safe Swallow: Intermittent Supervision Foods to Avoid: Tough difficult to chew solids. Swallowing Recommended Treatments: Compens. Strategy Educat. Recommendation for Speech: Inpatient Speech Therapy Comment: Patient was seen at lunch, had begun eating at time of meal and was alone and independent in room. Patient was seated well, with towel covering chest and had washcloth as additional napkin, and tray was well positioned in front of patient. Patient's lip sore today was profoundly blue/black with scabs, but did not appear to interfere with patient's eating and drinking. He was observed taking bites of ground meal, producing a munching pattern on each bite, and noted to have oral residue after swallow, somewhat pooled in front of mouth. Patient took intermittent sips of liquid which cleared residue. Patient was also using straws for drinks, which he appeared to be managing well. Recommend continue on current diet of Ground Mechanical (NDD2) with thin liquids, pills whole with puree. Patient will likely be able to resume baseline diet at return to SNF, at the moment ground diet allows for his preferred independence and is more manageable given mouth sores. . Frequency/Duration: M-F while inpatient. Date Range for Service Req: Timeline to reassess: PRN Patient Service Rep Clinican/Clinical Fellow: No Supervisory Statement: I have reviewed and agree with the student/clinical fellow's documentation: N/A Speech Language Pathologist: Corina Catalan M.A., CCC-BILLING ASSISTANT
[2024-06-11 14:19] LABS: Potassium 4.9 mmol/L (3.3-5.1)
[2024-06-11 14:19] LABS: Potassium 4.1 mmol/L (3.3-5.1)
--- NOTE | 2024-06-11 14:30 | PM.DS ---
DS: Providers Provider Date of Service: 06/11/24 Date of admission: 05/28/24 08:08 Primary care physician: Get Martin MD Consults: 05/31/24 15:24 Consult to Infectious Diseases Routine Consulting Provider: [facility] Reason for consultation: esbl bacteremia, allergic to ertapenem, improved on Zosyn, sendout pending 06/02/24 13:17 Consult to Urology Routine Consulting Provider: [facility] Reason for consultation: hydro/obstruction, multiple GNRs in blood 06/04/24 16:35 Consult to Neurology Routine Consulting Provider: [facility] Reason for consultation: encephalopathy 06/09/24 11:23 Consult to Wound Care Routine Reason for consultation: Lesions to lower lip & left nare. ID does not know what it is 06/11/24 11:58 Consult to Wound Care Routine Reason for consultation: worsening coccyx wound DS: Diagnosis Discharge Diagnosis (1) Septic shock: Status: Acute DS: Summary Hospital Course Hospital Course: History of presenting illness: Date of Service: 05/28/24 Attending physician on admission: Adan Pritchard Chief Complaint: Hypotension 79-year-old male with PMH of multiple sclerosis who is chronically bed-bound with chronic indwelling Nunez catheter, past history of bullous pemphigoid on chronic steroids, mood disorder, mixed hyperlipidemia, hypertension, insulin-dependent diabetes mellitus presented to the ED last night due to perez hematuria. He did not have any hematuria in the past. In the ED patient developed fever, his Nunez was replaced but there were multiple attempts as he had a difficult passage. His lactate was 4, was hypotensive some received multiple L fluid boluses, repeat lactate remained at 5 and needed vasopressor support so he is being transferred to medical ICU for the management of septic shock. CT abdomen and pelvis done in the ED suggested possible cystitis with mild bilateral hydronephrosis, possible proctocolitis. Hospital course: 79yo chronically bedbound M long-term resident of [facility], with Pmhx of MS, chronic Nunez, hx bullous pemphigoid on chronic steroids, mood disorder, HLD, HTN, DM2,presented with hematuria, became hypotensive and found to have septic shock and so admitted to ICU for pressor support, found to have polymicrobial GNR bacteremia. Pt has hx of bullous pemphigoid possibly provoked by ertapenem and so was treated with Zosyn with improvement ,stepped down to telemetry 05/31. Patient treated in the hospital for following medical issues. Septic shock due to ESBL + Proteus + Pseudomonas bacteremia , blood pressure improved with vasopressors, subsequently became hypertensive therefore placed on amlodipine and Coreg previously on losartan that was held due to EDWARD that has resolved, patient finished course of IV antibiotics, no further antibiotics required upon discharge, repeat blood cultures 06/01 are clear patient was seen by urologist given polymicrobial bacteremia and chronic indwelling Nunez catheter they recommend outpatient suprapubic catheter, recommend outpatient follow-up with Urology Dr. Bartholomew. Acute encephalopathy due to infection/hospitalization seems to have resolved seen by Neurology there was no concern for encephalitis. Oral lesions question etiology noted to have swelling of lower lip that healed into dry scabs, initially concern for herpes treated with acyclovir 06/02 to 06/09, discontinue due to elevated LFTs and confusion s/p magic mouthwash, Lesion seems to be healing, apply Vaseline/bacitracin ointment . Acute hypoKalemia and mild hypernatremia repleted, s/p IV fluids. Elevated LFTs likely due to acyclovir, recommend to follow LFTs next week and resume statins dysphagia - seen by [employer], they recommend NDD2 solids and clear liquids, tolerating diet . Anemia of chronic disease - H+H stable, follow CBC Bullous pemphigoid - continue chronic prednisone + MTX HLD - hold statin due to elevated LFT, follow LFTs and resume statin HTN - stable blood pressure continue amlodipine and Coreg , can resume losartan if needed to have elevated BP is DM2 - stable blood sugars, continue Lantus and insulin sliding scale, metformin was discontinued initially due to lactic acidosis, may resume metformin. Time Attestation Discharge Coordination Time (in mins): 40 Quality: Safe Use of Opioids Does Pt have an Active Cancer Diagnosis on the Problem List?: No Quality: Stroke Does the patient have a stroke diagnosis?: No Physical Exam Vital Signs: Vital Signs: Last Vital Signs Temp 96.8 F 06/11/24 11:46 Pulse 79 06/11/24 11:46 Resp 20 06/11/24 11:46 BP 129/57 L 06/11/24 11:46 Pulse Ox 100 06/11/24 11:46 O2 Del Method Room Air 06/11/24 11:46 BMI result Body Mass Index 23.6 Const: Other: Gen: alert, oriented, answering questions appropriately HEENT: sclera anicteric, moist mucus membranes, lower lip swollen with significant dry crusted scabs no new lesions. Neck: supple,no jvd Lungs: clear to auscultation bilaterally Heart: regular, no murmurs Abd: soft, non-tender, non-distended, bowel sounds audible Ext: no edema Skin: warm/well-perfused/multiple ecchymosis bilateral upper and lower extremities Neuro: Speech clear, answering questions appropriately Sacrum unstageable wound, perianal and scrotal moisture and hyperemic fungal rash DS: Data Data Completed and Pending Completed studies during hospitalization [Text1]: Procedures Change Drainage Device in Bladder, External Approach (02/25/24) Insertion of Endotracheal Airway into Trachea, Via Natural or Artificial Opening Endoscopic (05/14/21) Insertion of Infusion Device into Superior Vena Cava, Percutaneous Approach (05/14/21) Introduction of Vasopressor into Central Vein, Percutaneous Approach (05/14/21) Respiratory Ventilation, Greater than 96 Consecutive Hours (05/14/21) Ultrasonography of Superior Vena Cava, Guidance (03/13/21) Labs on day of discharge: Laboratory Results - last 24 hr 06/10/24 06/10/24 06/11/24 15:21 21:13 05:50 Sodium 140 Potassium 3.1 L Chloride 114 H Carbon Dioxide 20 L Anion Gap 9 L BUN 17 H Creatinine 0.89 Estim Creat Clear Calc 78.5 Estimated GFR > 60 POC Glucose 152 H 145 H Random Glucose 139 H Calcium 7.9 L Total Bilirubin 0.8 Direct Bilirubin 0.3 AST 97 H ALT 104 H Alkaline Phosphatase 92 Total Protein 5.6 L Albumin 2.8 L 06/11/24 06/11/24 06/11/24 07:03 11:29 13:11 Sodium Potassium 4.1 D Chloride Carbon Dioxide Anion Gap BUN Creatinine Estim Creat Clear Calc Estimated GFR POC Glucose 119 H 95 Random Glucose Calcium Total Bilirubin Direct Bilirubin AST ALT Alkaline Phosphatase Total Protein Albumin 06/11/24 14:06 Sodium Potassium 4.9 Chloride Carbon Dioxide Anion Gap BUN Creatinine Estim Creat Clear Calc Estimated GFR POC Glucose Random Glucose Calcium Total Bilirubin Direct Bilirubin AST ALT Alkaline Phosphatase Total Protein Albumin Preliminary micro results at discharge 05/28/24 01:26 Blood Culture - Preliminary Blood - Venous Escherichia coli Proteus mirabilis Pseudomonas aeruginosa Discharge Plan Discharge Anticipated Discharge Date/Time: 06/11/24 14:25 Patient Disposition: Xfer SNF Discharge Diagnosis: Septic shock Acute toxic metabolic encephalopathy. Referrals: [facility] Land[facility] [Outside] - 1 Week Get Martin MD [Primary Care Provider] - 1 Week Discharge Medications: New insulin lispro [Admelog U-100 Insulin lispro] 100 unit/mL Solution See Protocol subcut QIDACHS Qty: 10 0RF Protocol: Insulin Correction Scale Less than or equal to 110 ---- Give (units): 0 111 to 150 Give (units): 0 151 to 200 Give (units): 2 201 to 250 Give (units): 4 251 to 300 Give (units): 6 301 to 350 Give (units): 8 Greater than 350 Give (units): 10 Call MD if Blood Glucose > : 350 quetiapine 25 mg Tablet 25 mg PO BEDTIME Qty: 30 0RF carvedilol 6.25 mg Tablet 6.25 mg PO BID Qty: 60 0RF Protocol: Hold for SBP/HR < HOLD for SBP < : 90 HOLD for HR < : 60 amlodipine 10 mg Tablet 10 mg PO DAILY Qty: 30 0RF Protocol: Hold for SBP< HOLD for SBP < : 90 Continued tramadol 50 mg Tablet 50 mg PO BEDTIME PRN (Reason: moderate to severe pain) acetaminophen 325 mg Tablet 650 mg PO Q4H PRN (Reason: pain or fever) Rx Instructions: pain or fever prednisone 2.5 mg Tablet 2.5 mg PO DAILY guaifenesin [Diabetic Tussin EX] 100 mg/5 mL Liquid 200 mg PO Q4H PRN (Reason: Cough) famotidine 20 mg Tablet 20 mg PO BID amlodipine 10 mg Tablet 10 mg PO DAILY bismuth subsalicylate [Pepto-Bismol] 262 mg/15 mL Suspension 524 mg PO Q8H PRN (Reason: UPSET STOMACH/NAUSEA) docusate sodium [Colace] 100 mg Capsule 100 mg PO BID folic acid 1 mg Tablet 1 mg PO SUTUWETHFRSA polyethylene glycol 3350 [Miralax] 17 gram/dose Powder 17 g PO DAILY lactulose [Enulose] 10 gram/15 mL Solution 30 ml PO DAILY ceramides 1,3,6-II [CeraVe] Cream 1 appl TOPICAL BID melatonin 5 mg Tablet 5 mg PO BEDTIME PRN (Reason: Insomnia) insulin glargine-yfgn 100 unit/mL Solution 5 unit SUBCUT BEDTIME bisacodyl 5 mg Tablet 5 mg PO DAILY PRN (Reason: Constipation) triamcinolone acetonide 0.1 % Cream 1 appl TOPICAL BID Rx Instructions: bilat feet methotrexate sodium 2.5 mg Tablet 15 mg PO MO aspirin 81 mg Tablet,Delayed Release (Dr/Ec) 81 mg PO DAILY bisacodyl 10 mg Suppository [address] DAILY PRN (Reason: Constipation) bisacodyl 10 mg Suppository [address] Q3D Fleet Enema 19-7 gram/118 mL Enema [address] DAILY PRN (Reason: Constipation) Rx Instructions: if no result from dulcolax within 2 hours guaifenesin [Mucinex] 600 mg Tablet Extended Release 12hr 600 mg PO Q12H PRN (Reason: Cold Symptoms) Changed gabapentin 300 mg Capsule 300 mg PO TID Qty: 90 0RF Held rosuvastatin 10 mg Tablet 10 mg PO DAILY Hold Instructions: Resume on 06/14/24. Discontinued metformin 500 mg Tablet 500 mg PO BIDWM Hold Instructions: Resume on 03/25/21. Re-check renal function prior to restarting Metformin baclofen 20 mg Tablet 20 mg PO TID Qty: 0 0RF sennosides [senna] 8.6 mg Tablet 17.2 mg PO BEDTIME gabapentin 800 mg Tablet 800 mg PO BEDTIME losartan 25 mg Tablet 25 mg PO BEDTIME zolpidem 6.25 mg Tablet,Ext Release Multiphase 6.25 mg PO BEDTIME Discharge Orders: Discharge Order (Routine); Ordered 06/11/24 Ordered By: Mary Schroeder Diet: Diabetic diet Activity on Discharge: As tolerated Stand Alone Forms: Patient Portal Discharge page Print Language: Belarusian Care Plan Goals: Finish antibiotic for septic shock Acute encephalopathy resolved Oral lesions dried continue to apply bacitracin/Vaseline/avoid vigorous rubbing due to concern for bleed Continue ground mechanical diet with thin liquids, pills whole with puree. sacrum unstageable recommend triad and foam dressing scrotum and perianal has Moisture and fungal derm recommend nystatin twice daily. Health Concerns: Diabetes mellitus continue diabetic diet/Lantus and insulin sliding scale/monitor bs damian Bullous pemphigoid continue prednisone and methotrexate Plan of Treatment: Outpatient follow-up with primary care physician Outpatient follow-up with Urology recommend outpatient suprapubic catheter placement due to recurrent UTIs Assessment: As above
--- NOTE | 2024-06-11 14:33 | HO.WOUND ---
Wound Consult: Follow up 79yr old? Male admitted to [facility] on 05/28/24 - See progress notes and H&P for detailed history.? Wound consult follow up for Coccyx and sacrum.? Patient agreeable to assessment and photo documentation.? Sacrum 05/31/24 Sacrum 06/11/24 Etiology: Unstageable Pressure Injury evolved from DTI Present on Admission Measurements: 3cm x 4cm x 0.2cm Wound Bed: nonblanchable maroon red tissue - areas of tissue loss now with dark purple and adherent yellow moist slough Drainage / Odor: scant henry on dressing - no odor noted Edges: ? poorly defined Meghan wound: ?MASD (Moisture Associated Skin Damage - No Induration, Fluctuance or Warmth noted Pain: Patient reports pain Goals of Treatment: ? Triad to allow for autolytic debridement and moist wound healing foam dressing to protect from friction and moisture - No new topical recommendations needed at this time. Scrotum was assessed for MASD and fungal dermatitis TT to Dr. Schroeder to order antifungal powder. direct care nurse advised to apply barrier cream to protect from moisture and friction. Of note the MASD and Fungal derm comes around to the left ischium this is not pressure related injury despite being over the bony prominence at this time primary etiology is BASHIR an fungal derm. Bilateral feet and lower legs noted for resurfacing wounds - chart review reveal history of BP - Bullous Pemphigoid although the wounds are in various stages of healing and no bulla observed if this is infact BP topical treatment should include topical steroid application and cover to protect wounds from infection. Recommendations: 1. Turn and Reposition every 2 hours and as needed for patient comfort.? Use pillows or wedges to support off loading positions. 2. Off Load all bony prominences with use of pillows and heel boots if needed.? Apply Preventative foams where needed. ? 3. Monitor for incontinence and moisture control, use barrier creams when needed for prevention and treatment. 4. Provide adequate and supplemental nutrition.? 5. Order low air loss mattress. 6. When applicable maintain blood glucose levels per Providers order. 7. Sacrum - Off Load Pressure - Cleanse with PH balance spray or wipes, pat dry. ?Apply thin layer of Triad to wound bed. Do not remove all of paste between applications as this may cause further skin damage.? Cover with foam dressing to aid in off loading and protection from friction. 8. Bilateral Feet - Off load in Heel Protector Boots. Gently cleanse with NS, pat dry. Apply topical steroid per provider order, cover with no-stick gauze and gauze wrap. Change daily. 9. Scrotum and bilateral inner thigh and left ischium - Cleanse with PH balance wipes, pat dry with soft cloth.? Apply antifungal power to assist with moisture management.? Be sure to dust of excess powder to prevent caking on skin and in folds. Apply per provider orders. Followed with barrier cream to protect from moisture and friction. Re-consult wound care Nurse for wound deterioration or wound changes.
--- NOTE | 2024-06-11 14:42 | MHC.CM.PN ---
pt has been medically cleared to return to [facility], [facility], and [facility] with [facility] this afternoon, pt.'s informed.
[2024-06-11] MEDS: Lactulose 20 GM/30 ML SOLUTION PO (15:14)
[2024-06-11 16:17] VITALS: BP 150/70; PULSE 95; RESP 12; TEMP 36.6; O2SAT 100
[2024-06-11 16:22] LABS: Glucose, Whole Blood 167 mg/dL (60-115)
== END 2024-06-11 17:13 | disposition skilled nursing facility (03) | DRG 871 ==
LOC: HO.ED 05-28 06:43 → HO.EDOVER 05-28 08:15 → HO.ICU 05-28 08:23 → HO.IMC 05-31 13:25
PROVIDERS: Family Medicine; Internal Medicine Pulmonary Disease; Physician Assistant Medical; Admitting Provider Internal Medicine Critical Care Medicine; Emergency Provider Internal Medicine; PCP Family Medicine Geriatric Medicine; Visit Provider Hospitalist
DX: A41.51 Sepsis due to Escherichia coli [E. coli] (principal); G92.8 Other toxic encephalopathy; R65.21 Severe sepsis with septic shock; E44.0 Moderate protein-calorie malnutrition; N13.8 Other obstructive and reflux uropathy; L12.0 Bullous pemphigoid; N13.6 Pyonephrosis; Z16.12 Extended spectrum beta lactamase (ESBL) resistance; E87.0 Hyperosmolality and hypernatremia; D84.9 Immunodeficiency, unspecified; A41.59 Other Gram-negative sepsis; E11.9 Type 2 diabetes mellitus without complications; D63.8 Anemia in other chronic diseases classified elsewhere; B00.9 Herpesviral infection, unspecified; R13.10 Dysphagia, unspecified; E87.6 Hypokalemia; N31.9 Neuromuscular dysfunction of bladder, unspecified; B36.9 Superficial mycosis, unspecified; I10 Essential (primary) hypertension; L24.A2 Irritant contact dermatitis due to fecal, urinary or dual incontinence; R31.0 Gross hematuria; L89.150 Pressure ulcer of sacral region, unstageable; N40.1 Benign prostatic hyperplasia with lower urinary tract symptoms; Z68.22 Body mass index [BMI] 22.0-22.9, adult; G35 Multiple sclerosis; Z74.01 Bed confinement status; E78.2 Mixed hyperlipidemia; Z87.440 Personal history of urinary (tract) infections; Z87.891 Personal history of nicotine dependence; Z79.4 Long term (current) use of insulin; Z79.52 Long term (current) use of systemic steroids; Z79.631 Long term (current) use of antimetabolite agent; Z79.899 Other long term (current) drug therapy
CPT/HCPCS: 36415; 36600; 70450; 71045; 74176; 80048; 80053; 80076; 82140; 82272; 82607; 82746; 82803; 82947; 83605; 83735; 84100; 84132; 84443; 84484; 85007; 85025; 85027; 85610; 86140; 86850; 86900; 86901; 86923; 87040; 87077; 87086; 87186; 87205; 87493; 92526; 92610; 93005; 99285; C1758; C9113; J0133; J0613; J0692; J1120; J1170; J1650; J1720; J1885; J1920; J1940; J2060; J2270; J2359; J2405; J2470; J2543; J2598; J3370; J3475; J3480; J7120; P9016; P9047

== ENCOUNTER → 2024-05-27 23:48 | Outpatient (BNV) | payer OTHER, SELFPAY | PROVIDERS: Admitting Provider Internal Medicine Critical Care Medicine; Emergency Provider Internal Medicine; Visit Provider Internal Medicine Cardiovascular Disease | DX: R94.31 Abnormal electrocardiogram [ECG] [EKG] (principal) | CPT/HCPCS: 93010 ==

== ENCOUNTER → 2024-05-28 03:49 | Outpatient (BNV) | payer OTHER, SELFPAY | PROVIDERS: Admitting Provider Internal Medicine Critical Care Medicine; Emergency Provider Internal Medicine; Visit Provider Internal Medicine Cardiovascular Disease | DX: R94.31 Abnormal electrocardiogram [ECG] [EKG] (principal) | CPT/HCPCS: 93010 ==

== ENCOUNTER 2024-05-28 08:08 | Outpatient (BNV) | payer OTHER, SELFPAY | END 2024-06-05 12:07 | PROVIDERS: Admitting Provider Internal Medicine Critical Care Medicine; Emergency Provider Internal Medicine; PCP Family Medicine Geriatric Medicine; Visit Provider Internal Medicine | DX: R07.9 Chest pain, unspecified (principal) | CPT/HCPCS: 93010 ==

== ENCOUNTER → 2024-05-28 08:08 | Outpatient (BNV) | payer OTHER, SELFPAY | PROVIDERS: Admitting Provider Internal Medicine Critical Care Medicine; Emergency Provider Internal Medicine; PCP Family Medicine Geriatric Medicine; Visit Provider Internal Medicine Critical Care Medicine | DX: R31.0 Gross hematuria (principal); A41.9 Sepsis, unspecified organism; R65.20 Severe sepsis without septic shock; R41.82 Altered mental status, unspecified; G35 Multiple sclerosis; N39.0 Urinary tract infection, site not specified; N17.9 Acute kidney failure, unspecified; N13.9 Obstructive and reflux uropathy, unspecified | CPT/HCPCS: 99232; 99291 ==

== ENCOUNTER → 2024-05-28 08:08 | Outpatient (BNV) | payer OTHER, SELFPAY | PROVIDERS: Admitting Provider Internal Medicine Critical Care Medicine; Emergency Provider Internal Medicine; PCP Family Medicine Geriatric Medicine; Visit Provider Family Medicine | DX: A41.9 Sepsis, unspecified organism (principal); R65.21 Severe sepsis with septic shock | CPT/HCPCS: 99232; 99233; 99239; 99499 ==

== ENCOUNTER → 2024-05-28 08:08 | Outpatient (BNV) | payer OTHER, SELFPAY | PROVIDERS: Admitting Provider Internal Medicine Critical Care Medicine; Emergency Provider Internal Medicine; PCP Family Medicine Geriatric Medicine; Visit Provider Internal Medicine Pulmonary Disease | DX: R78.81 Bacteremia (principal); B96.20 Unspecified Escherichia coli [E. coli] as the cause of diseases classified elsewhere; G35 Multiple sclerosis; Z97.8 Presence of other specified devices; N31.9 Neuromuscular dysfunction of bladder, unspecified; L89.152 Pressure ulcer of sacral region, stage 2 | CPT/HCPCS: 99233 ==

== ENCOUNTER → 2024-05-28 08:08 | Outpatient (BNV) | payer OTHER, SELFPAY | PROVIDERS: Admitting Provider Internal Medicine Critical Care Medicine; Emergency Provider Internal Medicine; PCP Family Medicine Geriatric Medicine; Visit Provider Urology | DX: A41.9 Sepsis, unspecified organism (principal); B96.20 Unspecified Escherichia coli [E. coli] as the cause of diseases classified elsewhere; R65.20 Severe sepsis without septic shock | CPT/HCPCS: 99222 ==

== ENCOUNTER → 2024-05-28 08:08 | Outpatient (BNV) | payer OTHER, SELFPAY | PROVIDERS: Admitting Provider Internal Medicine Critical Care Medicine; Emergency Provider Internal Medicine; PCP Family Medicine Geriatric Medicine; Visit Provider Psychiatry & Neurology Neurology | DX: G92.8 Other toxic encephalopathy (principal); G93.41 Metabolic encephalopathy | CPT/HCPCS: 99222 ==

== ENCOUNTER → 2024-05-28 08:08 | Outpatient (BNV) | payer OTHER, SELFPAY | PROVIDERS: Admitting Provider Internal Medicine Critical Care Medicine; Emergency Provider Internal Medicine; PCP Family Medicine Geriatric Medicine; Visit Provider Internal Medicine | DX: A41.9 Sepsis, unspecified organism (principal); R65.21 Severe sepsis with septic shock; R78.81 Bacteremia; B96.20 Unspecified Escherichia coli [E. coli] as the cause of diseases classified elsewhere | CPT/HCPCS: 99222 ==

== ENCOUNTER → 2024-08-10 10:29 | Outpatient (RCR) | payer OTHER, MEDICARE, SELFPAY ==
[2021-03-28 08:03] VITALS: BP 139/62; PULSE 72; RESP 12; TEMP 36.2; O2SAT 99; BMI 26.4
--- NOTE | 2021-03-28 08:23 | P.CNHO_ITS ---
Subjective - Subjective Chief complaint: Consult for: Lytic bone lesions. Patient: new to practice Consult date: 03/28/21 Requesting Physician: DIAGNOSIS: Lytic bone lesions. Medical Summary: DIAGNOSIS: LYTIC BONE LESIONS. HPI - Consult Narrative Reason for consult: Consult for: Lytic bone lesions. 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 He has history of multiple allergies with most recent reaction to ertapenem (blisters), chronic indwelling catheter and UTIs, prior sepsis, diabetes presented with reported complaints of altered mental status and decreased responsiveness. This is how the patient normally is when he has an infection. His vital signs were abnormal with low blood pressure but otherwise afebrile. In the emergency room, the workup revealed: white count of 29.6, H&H of 13.9 and 42, platelets 231, left shift with absolute neutrophils of 26. Chemistry reveals no electrolyte abnormality, BUN of 42 and creatinine 2.58, baseline is ( 1.01), lactic acid 5.1 and subsequent of 2.4 by 1.8. Troponin 40. Urinalysis consistent with a UTI and hematuria, 2+ leukocyte esterase, 10-14 with blood cells per high-power field and 4+ bacteria. Stool occult blood negative and influenza a, coronavirus negative. Patient was treated with cefepime and Macrobid, was given IV fluids and started on Levophed. Head CT revealed no abnormalities . Septic shock: Patient debilitated, mainly bedbound with history multiple sclerosis. Initially presented in septic shock with hypotension , leukocytosis, lactic acidosis, positive urinalysis.. Treated with vasopressors for hypotension in the ICU. Antibiotic treatment initiated for urinary tract infection, initially treated with Zyvox and cefepime. Urinary tract infection: Chronic indwelling Nunez catheter. Gram-negative bacteremia, Proteus Mirabilis. Treated with cefepime, rocephin and Zyvox while inpatient. To continue with cefuroxime as outpatient for a total of 14 days. Hematuria: History of indwelling Nunez catheter. Had catheter changed in the ICU and soon after developed hematuria. CBI was initiated with good result. Once clamped he developed again hematuria and CBI was initiated again. The 3rd round of CBI cleared up his urine and he remained hematuria- free over the previous 24 hours. He was also evaluated by Urology, with no further recommendations for treatments however finasteride was added to tamsulosin. Anemia: Patient had no perez bleeding. Suspected to be secondary to dilution from IV fluids. Did not need blood transfusion during admission. Chronic constipation: History of multiple sclerosis. Treated with bowel regimen including fleets enema. Last bowel movement on 03/17/2021, this is on track with the patient's regular bowel schedule. Toxic metabolic encephalopathy: Secondary to septic shock and urinary tract infection. Resolved fairly quickly, once infection treatment was initiated. Shoulder pain. Patient complained of right shoulder pain. Shoulder x-ray was obtained on 03/18/2021 showed mottled appearance of bones possibly reflective of neoplastic marrow such as myeloma. Immunofixation, [place] light chain and beta 2 micro globulin ordered. Skeletal survey: Diffuse mottling appearance of bone marrow involving bilateral humeri, right scapula, clavicles, bilateral femora, bilateral tibia and fibula and bones of the proximal foot. These findings can be seen with infiltrative bone marrow disease such as multiple myeloma, severe anemia or severe osteoporosis. There are fractures of bilateral distal tibia and distal fibula suspected. Correlate with clinical exam. Review of Systems - Constitutional Reports system reviewed and no additional complaints, except as documented - Eyes Reports system reviewed and no additional complaints, except as documented - ENT Reports system reviewed and no additional complaints, except as documented - Cardiovascular Reports system reviewed and no additional complaints, except as documented - Respiratory Reports no additional respiratory complaints - Gastrointestinal Reports system reviewed and no additional complaints, except as documented - Genitourinary Genitourinary: Reports no additional male genitourinary complaints - Musculoskeletal Reports system reviewed and no additional complaints, except as documented - Integumentary/Breasts Skin/Breast: Reports no additional skin complaints - Neurologic Reports system reviewed and no additional complaints, except as documented - Psychiatric Reports system reviewed and no additional complaints, except as documented - Endocrine Reports no additional endocrine complaints - Hematologic/Lymphatic Reports system reviewed and no additional complaints, except as documented - Allergic/Immunologic Reports system reviewed and no additional complaints, except as documented [facility] Medical History: Medical History (Last Updated 03/19/21 @ 09:02 by Sandra Blake NP) BPH (benign prostatic hyperplasia) Chronic pain syndrome Chronic renal failure Dehydration Depression Diabetes mellitus type 2 in obese Multiple sclerosis Urinary tract infection Functional capacity: bed bound Patient : No Family History: Family History (Last Updated 03/28/21 @ 08:12 by Ashlyn Juarez) Family/Other Heart attack Father COPD (chronic obstructive pulmonary disease) Surgical History: Surgical History (Last Updated 03/28/21 @ 08:09 by Ashlyn Juarez) Hx of removal of cyst Social History: Social History (Last Updated 03/28/21 @ 08:12 by Ashlyn Juarez) Living Situation History: Household Members: Other Household Members Other:: lives in retirement Housing: [facility] Alcohol History: Alcohol intake: former Alcohol History Details: Alcohol intake frequency: does not drink Alcohol type: hard liquor Tobacco History: Smoking Status: Former smoker Packs Per Day: 1 Smoking Quit Date: 1981 Substance Use History: Use of substances other than those prescribed or required for medical reasons : No Advance Directives: Advance Directives Date on File: 10/13/20 Nutrition Assessment: Patient : No 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 Current occupational status: retired Smoking status: Former smoker Home Medications and Allergies Home Medications Medication Instructions Recorded Confirmed Type bisacodyl 5 mg PO BEDTIME 10/09/20 03/28/21 History bisacodyl 10 mg MN DAILY 10/09/20 03/28/21 History clobetasol 1 applic TOPICAL BID 10/09/20 03/28/21 History gabapentin 300 mg PO BID@0630,1200 10/09/20 03/28/21 History lactulose 30 ml PO DAILY 10/09/20 03/28/21 History metformin 500 mg PO BID 10/09/20 03/28/21 History tramadol 50 mg PO BID PRN 10/09/20 03/28/21 History trazodone 25 mg PO BEDTIME 10/09/20 03/28/21 History acetaminophen 650 mg PO Q4H PRN 03/13/21 03/28/21 History amlodipine 7.5 mg PO DAILY 03/13/21 03/28/21 History aspirin 81 mg PO DAILY 03/13/21 03/28/21 History gabapentin 600 mg PO BEDTIME 03/13/21 03/28/21 History insulin lispro [Humalog U-100 100 sliding scale dose SUBCUT 03/13/21 03/28/21 History Insulin] QIDACHS niacinamide 500 mg PO TID 03/13/21 03/28/21 History prednisone 10 mg PO DAILY 03/13/21 03/28/21 History rosuvastatin 10 mg PO DAILY 03/13/21 03/28/21 History sennosides [senna] 17.2 mg PO BID 03/13/21 03/28/21 History Allergies Allergy/AdvReac Type Severity Reaction Status Date / Time Benzodiazepines Allergy Unknown UNKNOWN Verified 10/09/20 22:49 [BENZODIAZEPINES] dalfampridine [From AMPYRA] Allergy Unknown UNKNOWN Verified 10/09/20 22:49 duloxetine [From CYMBALTA] Allergy Unknown UNKNOWN Verified 10/09/20 22:49 ezetimibe [From ZETIA] Allergy Unknown UNKNOWN Verified 10/09/20 22:49 niacin [NIACIN] Allergy Unknown UNKNOWN Verified 10/09/20 22:49 pravastatin [PRAVASTATIN] Allergy Unknown UNKNOWN Verified 10/09/20 22:49 Vaierqq-Zyq-Ffo Reductase Allergy Unknown UNKNOWN Verified 10/09/20 22:49 Inhibitor [[id number] REDUCTASE INHIBITOR] lorazepam [From ATIVAN] AdvReac Severe EXCESSIVE Verified 10/09/20 22:49 SEDATION doxycycline [DOXYCYCLINE] AdvReac Mild esophogeal Verified 10/09/20 22:49 iritation methylprednisolone AdvReac Mild heartburn Verified 10/09/20 22:49 [From SOLU-MEDROL] ertapenem [From INVANZ] AdvReac Unknown possible Verified 10/09/20 22:49 cause of bullous pemphigoid Physical Exam Vital signs: Vital Signs Temp 97.2 F 03/28/21 08:03 Pulse 72 03/28/21 08:03 Resp 12 03/28/21 08:03 BP 139/62 03/28/21 08:03 Pulse Ox 99 03/28/21 08:03 Intake & Output 03/27/21 03/28/21 03/28/21 18:59 06:59 18:59 Other: Weight 90.9 kg [place] Weight in Grams [id number] Weight 90.9 kg - Constitutional Present: mild distress - Routine HEENT Exam Head: Present: normal inspection ENT: Present: mucous membranes moist - Routine Neck Exam Present: supple - Routine Respiratory Exam Present: CTAB - Routine Cardiovascular Exam Cardiovascular: Present: RRR, S1, S2 - Routine Abdominal Exam Present: soft, nontender - Routine Extremities Exam Present: nontender - Routine Skin Exam Present: intact - Routine Neurological Exam Present: alert, oriented X3 - Detailed Neurological Exam: Coma Scale Eye Opening: Spontaneous (4) Verbal Response: Oriented (5) Motor Response: Obeys commands (6) [place] Coma Scale Total: 15 - Routine Psychiatric Exam Present: normal affect Hem/Onc Consult Result - Labs CBC & Chem 7: 03/28/21 09:13 03/28/21 09:13 Assessment and Plan (1) Lytic lesion of bone on x-ray Status: Acute A pleasant unfortunate 76-year-old gentleman with a history of MS. He was recently in the hospital for bacteremia/sepsis. He was noted to have lytic lesions in his bones on x-rays. DIFFERENTIAL DIAGNOSIS: 1. MULTIPLE MYELOMA: SIEP and serum free light chain ratio were done and are normal. 2. METASTATIC CARCINOMA: He does have a history of BPH. Could be the prostate with Mets. Or another primary. 3. OSTEOPOROSIS: He has been on chronic prednisone. 4. ANEMIA: Likely has ACD. Anemia work up was done. C/W it. PLAN: I will proceed with further workup. Will check 24 hour urine for light chains. I will proceed with anemia workup. I will check the labs including tumor markers: PSA: 1.57, LDH: 106. Will get a bone scan for further evaluation. This revealed: This exam is limited. As stated, the baseline planar images are suboptimal due to rotation. Several areas of abnormal uptake are described above. Certainly I cannot exclude underlying bony lesions in these areas. Paucity of uptake in the region of the left hip is noted It should also be noted that multiple myeloma can have various appearances on bone scan including lack of uptake due to the indolent nature of the disease. Several areas of abnormal uptake a described. Certainly I cannot exclude underlying bone lesions in these areas. Paucity of uptake in the region of the left hip is noted. D/W Dr. Ochoa: I discussed with Dr. Ochoa. He felt there was no cause for concern to simply repeat the bone scan in 3 months time. Will then decide about the site of biopsy, based upon the results. He will return in a couple of weeks for a follow-up visit. Thank you, CC: Dr. Get Martin.
[2021-03-28 09:28] LABS: Baso%MD 0.5 %; Hematocrit 36.3 % (42-52); Hemoglobin 11.5 g/dl (14.0-18.0); IG%MD 0.7 %; Immature Retic Fraction 14.2 % (2.3-13.4); Lymph%MD 19.6 %; Mean Corpuscular HGB Conc 31.7 g/dl (31.0-36.0); Mean Corpuscular Volume 91.4 fL (80-98); Mono%MD 7.1 %; Neut%MD 68.1 %; Platelet Count 296 X10*3/uL (160-400); Red Blood Count 3.97 X10*6/uL (4.60-5.80); Red Cell Distribution Width 16.6 % (11.0-16.0); Reticulocyte Percent 2.1 % (0.5-1.8); Reticulocytes Absolute 0.082 X10*6/uL (0.026-0.095); White Blood Count 5.5 X10*3/uL (4.8-10.8)
[2021-03-28 09:46] LABS: Alanine Aminotransferase 36 U/L (0-40); Albumin Level 3.4 g/dL (3.5-5.0); Alkaline Phosphatase 77 U/L (39-117); Anion Gap 11 (12-20); Aspartate Amino Transferase 21 U/L (5-37); Bilirubin Total 0.7 mg/dL (0.0-1.0); Blood Urea Nitrogen 17 mg/dL (9-16); Calcium 8.9 mg/dL (8.4-10.2); Carbon Dioxide 32 mmol/L (22-29); Chloride 102 mmol/L (96-108); Creatinine Clr Calc Pharmacy 82.2; Estimated Glomerular Filt Rate > 60; Glucose Random 281 mg/dL (60-115); Iron 68 mcg/dL (45-160); Lactate Dehydrogenase 106 U/L (118-273); Percent Iron Saturation 25 % (15-50); Potassium 4.6 mmol/L (3.3-5.1); Sodium 140 mmol/L (135-145); Total Iron Binding Capacity 274 mcg/dL (228-428); Total Protein 5.9 g/dL (6.5-8.0); Unsaturated Iron Binding 206 ug/dL
[2021-03-28 10:07] LABS: Ferritin 83 ng/mL (20-250); Prostate Specific Antigen Scr 1.57 ng/mL (<0.05-4.0)
[2021-03-28 10:27] LABS: Folate 7.6 ng/mL (> or = 4.0); Vitamin B12 302 pg/mL (200-900)
--- NOTE | 2021-03-28 12:13 | MHC.HEMONCSW ---
PATIENT HERE FOR ONCOLOGY CONSULT. ALERT, ABLE TO MAKE NEEDS KNOWN, REQUIRES TOTAL CARE DUE TO MULTIPLE SCLEROSIS. HALF-WAY RESIDENT AT [facility]. AND SONS ARE INVOLVED AND SUPPORTIVE. DIAGNOSIS IS LYTIC BONE LESIONS WHICH WERE FOUND DURING RECENT HOSPITALIZATION FOR SEPSIS. DENIES PAST/PRESENT MENTAL HEALTH ISSUES. HISTORY ONLY OF ALCOHOL AND CIGARETTES. RETIRED [employer]. [place] . MD TO CONTINUE TO WORK UP THEN A TREATMENT PLAN WILL BE DEVELOPED. REASSURANCE, GUIDANCE, EDUCATION AND SUPPORT PROVIDED.
--- NOTE | 2021-03-28 15:04 | MHC.HEMONCMA ---
Patient came in for a consultation for possible bone cancer. Patient states he is doing well. Clinical summary was reviewed and updated. Patient had labs, he also spent the entire day at our office for dye to have a bone scan done. Patient will return in 1 month for a follow up.
[2021-03-28 15:42] LABS: Acanthocytes 2+ (3-5) /OIF; Band Neutrophils Percent 0 % (3-5); Basophils Abs Manual 0.1 X10*3/uL (0.0-0.3); Basophils Percent Manual 1 % (0-1); Eosinophils Absolute Manual 0.3 X10*3/UL (0.0-0.8); Eosinophils Percent Manual 5 % (0-4); Lymphocytes Percent Manual 19 % (20-40); Monocytes Absolute Manual 0.4 X10*3/uL (0.0-1.2); Monocytes Percent Manual 8 % (2-11); Neutrophils Absolute Manual 3.7 X10*3/uL (2.2-7.9); Neutrophils Percent Manual 67 % (45-73); Ovalocytes 1+ (5-14) /OIF; RBC Morphology NOTED
[2021-03-28 15:43] LABS: Platelet Estimate NORMAL (NORMAL); Platelet Morphology Comment NORMAL; Schistocytes 1+ (0-2) /OIF
[2021-04-20 09:46] VITALS: BP 110/60; PULSE 85; TEMP 36.9; O2SAT 96
--- NOTE | 2021-04-20 10:04 | PM.HEMONCPN ---
Medical Summary - Medical Summary Date of Service: 04/20/21 Chief complaint: Follow-up for: Lytic lesions. Medical Summary: DIAGNOSIS: LYTIC BONE LESIONS. Interval History Interval history: Omero Ardon is a pleasnt 76 year old gentleman, here for a follow-up visit from [facility], where he currently resides. He was transported by mental health professional. Overall he is stable. He has not walked for years due to his MS and contractures. Denies chest pain or trouble breathing. Abdominal pain nausea vomiting heartburn indigestion. Bowels are working. He goes into the cycles where he gets constipated. Then he is on stool softeners and that leads to diarrhea. Denies gross blood in the stools. Enjoys a good appetite. His weight is stable. Previous history: Hospital course. 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 He has history of multiple allergies with most recent reaction to ertapenem (blisters), chronic indwelling catheter and UTIs, prior sepsis, diabetes presented with reported complaints of altered mental status and decreased responsiveness. This is how the patient normally is when he has an infection. His vital signs were abnormal with low blood pressure but otherwise afebrile. In the emergency room, the workup revealed: white count of 29.6, H&H of 13.9 and 42, platelets 231, left shift with absolute neutrophils of 26. Chemistry reveals no electrolyte abnormality, BUN of 42 and creatinine 2.58, baseline is ( 1.01), lactic acid 5.1 and subsequent of 2.4 by 1.8. Troponin 40. Urinalysis consistent with a UTI and hematuria, 2+ leukocyte esterase, 10-14 with blood cells per high-power field and 4+ bacteria. Stool occult blood negative and influenza a, coronavirus negative. Patient was treated with cefepime and Macrobid, was given IV fluids and started on Levophed. Head CT revealed no abnormalities . Septic shock: Patient debilitated, mainly bedbound with history multiple sclerosis. Initially presented in septic shock with hypotension , leukocytosis, lactic acidosis, positive urinalysis.. Treated with vasopressors for hypotension in the ICU. Antibiotic treatment initiated for urinary tract infection, initially treated with Zyvox and cefepime. Urinary tract infection: Chronic indwelling Nunez catheter. Gram-negative bacteremia, Proteus Mirabilis. Treated with cefepime, rocephin and Zyvox while inpatient. To continue with cefuroxime as outpatient for a total of 14 days. Hematuria: History of indwelling Nunez catheter. Had catheter changed in the ICU and soon after developed hematuria. CBI was initiated with good result. Once clamped he developed again hematuria and CBI was initiated again. The 3rd round of CBI cleared up his urine and he remained hematuria- free over the previous 24 hours. He was also evaluated by Urology, with no further recommendations for treatments however finasteride was added to tamsulosin. Anemia: Patient had no perez bleeding. Suspected to be secondary to dilution from IV fluids. Did not need blood transfusion during admission. Chronic constipation: History of multiple sclerosis. Treated with bowel regimen including fleets enema. Last bowel movement on 03/17/2021, this is on track with the patient's regular bowel schedule. Toxic metabolic encephalopathy: Secondary to septic shock and urinary tract infection. Resolved fairly quickly, once infection treatment was initiated. Shoulder pain. Patient complained of right shoulder pain. Shoulder x-ray was obtained on 03/18/2021 showed mottled appearance of bones possibly reflective of neoplastic marrow such as myeloma. Immunofixation, [place] light chain and beta 2 micro globulin ordered. Skeletal survey: Diffuse mottling appearance of bone marrow involving bilateral humeri, right scapula, clavicles, bilateral femora, bilateral tibia and fibula and bones of the proximal foot. These findings can be seen with infiltrative bone marrow disease such as multiple myeloma, severe anemia or severe osteoporosis. There are fractures of bilateral distal tibia and distal fibula suspected. Correlate with clinical exam. Review of Systems - Constitutional Reports no additional constitutional complaints, Reports lack of energy, Reports weight loss - Eyes Reports no additional eye complaints - ENT Reports no additional ear, nose, mouth, and throat complaints - Cardiovascular Reports no additional cardiovascular complaints - Respiratory Reports no additional respiratory complaints - Gastrointestinal Reports no additional gastrointestinal complaints, Reports constipation, Reports diarrhea - Genitourinary Genitourinary: Reports no additional male genitourinary complaints - Musculoskeletal Reports no additional musculoskeletal complaints - Integumentary/Breasts Skin/Breast: Reports no additional skin complaints - Neurologic Reports no additional neurologic complaints - Psychiatric Reports no additional psychiatric complaints - Endocrine Reports no additional endocrine complaints - Hematologic/Lymphatic Reports no additional hematologic/lymphatic complaints - Allergic/Immunologic Reports no additional allergic/immunologic complaints [facility] Medical History: Medical History (Last Reviewed 04/20/21 @ 09:46 by Kassandra Kaminski) BPH (benign prostatic hyperplasia) Chronic pain syndrome Chronic renal failure Dehydration Depression Diabetes mellitus type 2 in obese Multiple sclerosis Urinary tract infection Functional capacity: bed bound Patient : No Family History: Family History (Last Updated 04/20/21 @ 09:48 by Kassandra Kaminski) Family/Other Heart attack Father Diabetes Surgical History: Surgical History (Last Reviewed 04/20/21 @ 09:48 by Kassandra Kaminski) Hx of removal of cyst Social History: Social History (Last Reviewed 04/20/21 @ 09:48 by Kassandra Kaminski) Living Situation History: Household Members: Other Household Members Other:: lives in group home [facility] Alcohol History: Alcohol intake: former Alcohol History Details: Alcohol intake frequency: does not drink Alcohol type: hard liquor Tobacco History: Smoking Status: Former smoker Packs Per Day: 1 Smoking Quit Date: 1981 Substance Use History: Use of substances other than those prescribed or required for medical reasons: No Advance Directives: Advance Directives Date on File: 10/13/20 Nutrition Assessment: Patient : No 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 Current occupational status: retired Smoking status: Former smoker Oncology Screenings - ECOG Performance Status ECOG Performance Status: 3 Home Medications and Allergies Home Medications Medication Instructions Recorded Confirmed Type bisacodyl 10 mg [place] DAILY 10/09/20 03/28/21 History gabapentin 300 mg PO BID@0630,1200 10/09/20 03/28/21 History metformin 500 mg PO BID 10/09/20 03/28/21 History tramadol 50 mg PO BID PRN 10/09/20 03/28/21 History trazodone 25 mg PO BEDTIME 10/09/20 03/28/21 History acetaminophen 650 mg PO Q4H PRN 03/13/21 03/28/21 History amlodipine 7.5 mg PO DAILY 03/13/21 03/28/21 History aspirin 81 mg PO DAILY 03/13/21 03/28/21 History gabapentin 600 mg PO BEDTIME 03/13/21 03/28/21 History insulin lispro [Humalog U-100 100 sliding scale dose SUBCUT 03/13/21 03/28/21 History Insulin] QIDACHS niacinamide 500 mg PO TID 03/13/21 03/28/21 History prednisone 10 mg PO DAILY 03/13/21 03/28/21 History rosuvastatin 10 mg PO DAILY 03/13/21 03/28/21 History alum-mag hydroxide-simeth [Maalox ml 04/20/21 History Plus] doxycycline hyclate 100 mg PO DAILY 04/20/21 04/20/21 History fluconazole 100 mg PO DAILY 04/20/21 04/20/21 History nystatin-triamcinolone 1 appl TOPICAL BID 04/20/21 04/20/21 History Allergies Allergy/AdvReac Type Severity Reaction Status Date / Time Benzodiazepines Allergy Unknown UNKNOWN Verified 04/11/21 09:47 [BENZODIAZEPINES] dalfampridine [From AMPYRA] Allergy Unknown UNKNOWN Verified 04/11/21 09:47 duloxetine [From CYMBALTA] Allergy Unknown UNKNOWN Verified 04/11/21 09:47 ezetimibe [From ZETIA] Allergy Unknown UNKNOWN Verified 04/11/21 09:47 niacin [NIACIN] Allergy Unknown UNKNOWN Verified 04/11/21 09:47 pravastatin [PRAVASTATIN] Allergy Unknown UNKNOWN Verified 04/11/21 09:47 Emefvdz-Cbj-Yeh Reductase Allergy Unknown UNKNOWN Verified 04/11/21 09:47 Inhibitor [[id number] REDUCTASE INHIBITOR] lorazepam [From ATIVAN] AdvReac Severe EXCESSIVE Verified 04/11/21 09:47 SEDATION doxycycline [DOXYCYCLINE] AdvReac Mild esophogeal Verified 04/11/21 09:47 iritation methylprednisolone AdvReac Mild heartburn Verified 04/11/21 09:47 [From SOLU-MEDROL] ertapenem [From INVANZ] AdvReac Unknown possible Verified 04/11/21 09:47 cause of bullous pemphigoid Exam Vital signs: Vital Signs Temp 98.5 F 04/20/21 09:46 Pulse 85 04/20/21 09:46 Resp 12 03/28/21 08:03 BP 110/60 04/20/21 09:46 Pulse Ox 96 04/20/21 09:46 Weight 90.9 kg Body Mass Index 26.4 - Constitutional Present: mild distress - Routine HEENT Exam Head: Present: normal inspection Eye: Present: normal appearance ENT: Present: mucous membranes moist - Routine Neck Exam Present: full ROM - Routine Respiratory Exam Present: CTAB - Routine Cardiovascular Exam Cardiovascular: Present: RRR, S1, S2 - Routine Abdominal Exam Present: soft, nontender - Routine Extremities Exam Present: nontender - Routine Back/Spine/Pelvis Exam Back/Spine: Present: full ROM - Routine Skin Exam Present: intact - Routine Neurological Exam Present: alert, oriented X3 - Detailed Neurological Exam: Coma Scale Eye Opening: Spontaneous (4) - Routine Psychiatric Exam Present: normal affect Data - Labs CBC & Chem 7: 04/20/21 10:10 03/28/21 09:13 Labs: 03/28/21 09:13 Complete Blood Count Man Dif Routine Comprehensive Met. Panel Routine Ferritin Routine IRON PROFILE Routine Lactate Dehydrogenase Routine Prostate Specific Antigen Scr Routine Reticulocyte Count Routine Vitamin B12 and Folate Routine 03/28/21 09:46 NM bone scan whole body Routine Laboratory Last Values WBC 5.5 X10*3/uL (4.8-10.8) 03/28/21 09:13 RBC 3.97 X10*6/uL (4.60-5.80) L 03/28/21 09:13 Hgb 11.5 g/dl (14.0-18.0) L 03/28/21 09:13 Hct 36.3 % (42-52) L 03/28/21 09:13 MCV 91.4 fL (80-98) 03/28/21 09:13 MCH 29.0 pg (27.0-33.0) 03/28/21 09:13 MCHC 31.7 g/dl (31.0-36.0) 03/28/21 09:13 RDW 16.6 % (11.0-16.0) H 03/28/21 09:13 Plt Count 296 X10*3/uL (160-400) D 03/28/21 09:13 MPV 9.0 fL (9.4-12.4) L 03/28/21 09:13 Absolute Nucleated RBC 0.000 X10*3/uL (0.0-0.012) 03/28/21 09:13 Nucleated RBC % (auto) 0.0 /100WBC (0.0-0.2) 03/28/21 09:13 Neutrophils % (Manual) 67 % (45-73) 03/28/21 09:13 Band Neutrophils % 0 % (3-5) L 03/28/21 09:13 Lymphocytes % (Manual) 19 % (20-40) L 03/28/21 09:13 Monocytes % (Manual) 8 % (2-11) 03/28/21 09:13 Eosinophils % (Manual) 5 % (0-4) H 03/28/21 09:13 Basophils % (Manual) 1 % (0-1) 03/28/21 09:13 Abs Neuts (Manual) 3.7 X10*3/uL (2.2-7.9) 03/28/21 09:13 Lymphocytes # (Manual) 1.0 X10*3/uL (0.6-4.8) 03/28/21 09:13 Monocytes # (Manual) 0.4 X10*3/uL (0.0-1.2) 03/28/21 09:13 Eosinophils # (Manual) 0.3 X10*3/UL (0.0-0.8) 03/28/21 09:13 Basophils # (Manual) 0.1 X10*3/uL (0.0-0.3) 03/28/21 09:13 Platelet Estimate NORMAL (NORMAL) 03/28/21 09:13 Plt Morphology Comment NORMAL 03/28/21 09:13 RBC Morphology NOTED 03/28/21 09:13 Ovalocytes 1+ (5-14) /OIF 03/28/21 09:13 Acanthocytes (Spur) 2+ (3-5) /OIF 03/28/21 09:13 Schistocytes 1+ (0-2) /OIF 03/28/21 09:13 Absolute Retic 0.082 X10*6/uL (0.026-0.095) 03/28/21 09:13 Percent Retic 2.1 % (0.5-1.8) H 03/28/21 09:13 Immature Retic Fraction 14.2 % (2.3-13.4) H 03/28/21 09:13 Retic Hgb Equivalent 35.0 pg (30.0-35.0) 03/28/21 09:13 Sodium 140 mmol/L (135-145) 03/28/21 09:13 Potassium 4.6 mmol/L (3.3-5.1) D 03/28/21 09:13 Chloride 102 mmol/L (96-108) 03/28/21 09:13 Carbon Dioxide 32 mmol/L (22-29) H 03/28/21 09:13 Anion Gap 11 (12-20) L 03/28/21 09:13 BUN 17 mg/dL (9-16) H 03/28/21 09:13 Creatinine 0.89 mg/dL (0.5-1.4) 03/28/21 09:13 Estim Creat Clear Calc 82.2 03/28/21 09:13 Estimated GFR > 60 03/28/21 09:13 Random Glucose 281 mg/dL (60-115) H D 03/28/21 09:13 Calcium 8.9 mg/dL (8.4-10.2) D 03/28/21 09:13 Iron 68 mcg/dL (45-160) 03/28/21 09:13 TIBC 274 mcg/dL (228-428) 03/28/21 09:13 % Saturation 25 % (15-50) 03/28/21 09:13 Unsat Iron Binding 206 ug/dL 03/28/21 09:13 Ferritin 83 ng/mL (20-250) 03/28/21 09:13 Total Bilirubin 0.7 mg/dL (0.0-1.0) 03/28/21 09:13 AST 21 U/L (5-37) D 03/28/21 09:13 ALT 36 U/L (0-40) 03/28/21 09:13 Alkaline Phosphatase 77 U/L (39-117) 03/28/21 09:13 Lactate Dehydrogenase 106 U/L (118-273) L 03/28/21 09:13 Total Protein 5.9 g/dL (6.5-8.0) L 03/28/21 09:13 Albumin 3.4 g/dL (3.5-5.0) L 03/28/21 09:13 PSA Screen 1.57 ng/mL (<0.05-4.0) 03/28/21 09:13 Vitamin B12 302 pg/mL (200-900) 03/28/21 09:13 Folate 7.6 ng/mL (> or = 4.0) 03/28/21 09:13 - Imaging Radiologist's impression: ITS Impressions Bone Scan Nuclear Medicine 03/28/21 09:46 IMPRESSION: This exam is limited. As stated, the baseline planar images are suboptimal due to rotation. Several areas of abnormal uptake are described above. Certainly I cannot exclude underlying bony lesions in these areas. Paucity of uptake in the region of the left hip is noted It should also be noted that multiple myeloma can have various appearances on bone scan including lack of uptake due to the indolent nature of the disease. Progress Note: A/P (1) Lytic lesion of bone on x-ray Status: Acute Assessment and plan: A pleasant unfortunate 76-year-old gentleman with a history of MS. He was recently in the hospital for bacteremia/sepsis. He was noted to have lytic lesions in his bones on x-rays. DIFFERENTIAL DIAGNOSIS: 1. MULTIPLE MYELOMA: SIEP and serum free light chain ratio were done and are normal. 2. METASTATIC CARCINOMA: He does have a history of BPH. Could be the prostate with Mets. Or another primary. 3. OSTEOPOROSIS: He has been on chronic prednisone. 4. ANEMIA: Likely has ACD. Anemia work up was done. C/W it. I proceeded with further workup. I proceeded with anemia work up: Iron studies: 68/to 74/20 . Retic: 2.1. B12 302. Folate 7.6.. I checked the labs including tumor markers: PSA: 1.57, LDH: 106. a bone scan was done for further evaluation. This revealed: This exam is limited. As stated, the baseline planar images are suboptimal due to rotation. Several areas of abnormal uptake are described above. Certainly I cannot exclude underlying bony lesions in these areas. Paucity of uptake in the region of the left hip is noted It should also be noted that multiple myeloma can have various appearances on bone scan including lack of uptake due to the indolent nature of the disease. Several areas of abnormal uptake a described. Certainly I cannot exclude underlying bone lesions in these areas. Paucity of uptake in the region of the left hip is noted. D/W Dr. Ochoa: I discussed with Dr. Ochoa. He felt there was no cause for concern to simply repeat the bone scan in 3 months time. He is holding his own. PLAN: Will proceed with a bone scan in 3 months time. Will then decide about the site of biopsy, based upon the results. He will return in 3 months for a follow-up visit. Thank you, CC: Dr. Get Martin. - Time Spent With Patient Total time spent is greater than 50% in coordination of care (as documented) at patient's floor/unit and/or counseling patient: 25 - 35 minutes
[2021-04-20 10:52] LABS: MANUAL DIFF FLAG NO
[2021-04-20 10:54] LABS: Basophils Percent Auto 0.4 % (0-2); Eosinophils Absolute Auto 0.5 X10*3/uL (0.0-0.4); Eosinophils Percent Auto 6.3 % (0-4); Hematocrit 37.2 % (42-52); Hemoglobin 11.8 g/dl (14.0-18.0); Imm Gran Abs Auto 0.03 X10*3/uL (0.00-0.03); Imm Gran Pct Auto 0.4 % (0.0-0.4); Lymphocytes Absolute Auto 1.2 X10*3/uL (1.2-4.9); Lymphocytes Percent Auto 15.4 % (20-40); Mean Corpuscular HGB Conc 31.7 g/dl (31.0-36.0); Mean Corpuscular Hemoglobin 29.4 pg (27.0-33.0); Mean Corpuscular Volume 92.8 fL (80-98); Mean Platelet Volume 9.3 fL (9.4-12.4); Monocytes Absolute Auto 0.5 X10*3/uL (0.1-1.2); Monocytes Percent Auto 6.8 % (2-11); Neutrophils Absolute Auto 5.4 X10*3/uL (2.0-8.3); Neutrophils Percent Auto 70.7 % (45-73); Platelet Count 196 X10*3/uL (160-400); Red Blood Count 4.01 X10*6/uL (4.60-5.80); Red Cell Distribution Width 17.5 % (11.0-16.0); White Blood Count 7.7 X10*3/uL (4.8-10.8)
--- NOTE | 2021-04-20 13:30 | MHC.HEMONCMA ---
Pt presents to f/u on possible bone cancer. History reviewed.
[2021-08-09 12:55] VITALS: BP 117/65; PULSE 79; RESP 18; TEMP 36.3; O2SAT 98
--- NOTE | 2021-08-09 13:03 | PM.HEMONCPN ---
Medical Summary - Medical Summary Date of Service: 08/09/21 Chief complaint: Follow-up for: Lytic lesion of the bone. Medical Summary: DIAGNOSIS: LYTIC BONE LESIONS. Interval History Interval history: Omero Ardon is a pleasnt 76 year old gentleman, here for a follow-up visit, from [facility], where he currently resides. He has been there for about 3 years. He was transported by industrial x ray operator. Overall he is stable. He denies any aches and pains in the joints nor bones. Denies chest pain or trouble breathing. Abdominal pain nausea vomiting heartburn indigestion. Bowels are working. He goes into the cycles where he gets constipated. Then he is given stool softeners and that leads to diarrhea. Denies gross blood in the stools. Enjoys a good appetite. His weight is stable. He has not walked for years due to his MS and contractures. Previous history: Hospital course. 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 He has history of multiple allergies with most recent reaction to ertapenem (blisters), chronic indwelling catheter and UTIs, prior sepsis, diabetes presented with reported complaints of altered mental status and decreased responsiveness. This is how the patient normally is when he has an infection. His vital signs were abnormal with low blood pressure but otherwise afebrile. In the emergency room, the workup revealed: white count of 29.6, H&H of 13.9 and 42, platelets 231, left shift with absolute neutrophils of 26. Chemistry reveals no electrolyte abnormality, BUN of 42 and creatinine 2.58, baseline is ( 1.01), lactic acid 5.1 and subsequent of 2.4 by 1.8. Troponin 40. Urinalysis consistent with a UTI and hematuria, 2+ leukocyte esterase, 10-14 with blood cells per high-power field and 4+ bacteria. Stool occult blood negative and influenza a, coronavirus negative. Patient was treated with cefepime and Macrobid, was given IV fluids and started on Levophed. Head CT revealed no abnormalities . Septic shock: Patient debilitated, mainly bedbound with history multiple sclerosis. Initially presented in septic shock with hypotension , leukocytosis, lactic acidosis, positive urinalysis.. Treated with vasopressors for hypotension in the ICU. Antibiotic treatment initiated for urinary tract infection, initially treated with Zyvox and cefepime. Urinary tract infection: Chronic indwelling Nunez catheter. Gram-negative bacteremia, Proteus Mirabilis. Treated with cefepime, rocephin and Zyvox while inpatient. To continue with cefuroxime as outpatient for a total of 14 days. Hematuria: History of indwelling Nunez catheter. Had catheter changed in the ICU and soon after developed hematuria. CBI was initiated with good result. Once clamped he developed again hematuria and CBI was initiated again. The 3rd round of CBI cleared up his urine and he remained hematuria- free over the previous 24 hours. He was also evaluated by Urology, with no further recommendations for treatments however finasteride was added to tamsulosin. Anemia: Patient had no perez bleeding. Suspected to be secondary to dilution from IV fluids. Did not need blood transfusion during admission. Chronic constipation: History of multiple sclerosis. Treated with bowel regimen including fleets enema. Last bowel movement on 03/17/2021, this is on track with the patient's regular bowel schedule. Toxic metabolic encephalopathy: Secondary to septic shock and urinary tract infection. Resolved fairly quickly, once infection treatment was initiated. Shoulder pain. Patient complained of right shoulder pain. Shoulder x-ray was obtained on 03/18/2021 showed mottled appearance of bones possibly reflective of neoplastic marrow such as myeloma. Immunofixation, Whittingham light chain and beta 2 micro globulin ordered. Skeletal survey: Diffuse mottling appearance of bone marrow involving bilateral humeri, right scapula, clavicles, bilateral femora, bilateral tibia and fibula and bones of the proximal foot. These findings can be seen with infiltrative bone marrow disease such as multiple myeloma, severe anemia or severe osteoporosis. There are fractures of bilateral distal tibia and distal fibula suspected. Correlate with clinical exam. Review of Systems - Constitutional Reports system reviewed and no additional complaints, except as documented, Reports lack of energy, Denies weight loss - Eyes Reports system reviewed and no additional complaints, except as documented - ENT Reports system reviewed and no additional complaints, except as documented - Cardiovascular Reports system reviewed and no additional complaints, except as documented - Respiratory Reports no additional respiratory complaints - Gastrointestinal Reports system reviewed and no additional complaints, except as documented - Genitourinary Genitourinary: Reports no additional male genitourinary complaints - Musculoskeletal Reports system reviewed and no additional complaints, except as documented - Integumentary/Breasts Skin/Breast: Reports no additional skin complaints - Neurologic Reports system reviewed and no additional complaints, except as documented - Psychiatric Reports system reviewed and no additional complaints, except as documented - Endocrine Reports no additional endocrine complaints - Hematologic/Lymphatic Reports system reviewed and no additional complaints, except as documented - Allergic/Immunologic Reports system reviewed and no additional complaints, except as documented PMFSH Medical History: Medical History (Last Reviewed 05/14/21 @ 21:27 by Shila Araujo PA-C) Acute hypotension Anemia Aspiration pneumonitis BPH (benign prostatic hyperplasia) Chronic pain syndrome Chronic renal failure Constipation Decubitus ulcer of coccygeal region, stage 2 Dehydration Depression Diabetes mellitus type 2 in obese Hematuria Hypotonic neurogenic bladder Lytic lesion of bone on x-ray Multiple sclerosis Recurrent UTI (urinary tract infection) Sepsis Septic shock Shoulder pain Urinary tract infection Wound of foot Functional capacity: bed bound Family History: Family History (Last Reviewed 05/14/21 @ 21:27 by Shila Araujo PA-C) Family/Other Heart attack Father Diabetes Surgical History: Surgical History (Last Reviewed 05/14/21 @ 21:27 by Shila Araujo PA-C) Hx of removal of cyst Social History: Social History (Last Reviewed 05/14/21 @ 21:27 by Shila Araujo PA-C) Living Situation History: Household Members: Other Household Members Other:: lives in care home Housing: Prison Housing Other:: [facility] Do you presently have visiting nurse or other home services: No Alcohol History: Unable to assess alcohol history related to: Unable to respond Alcohol intake: never Alcohol History Details: Alcohol intake frequency: does not drink Alcohol type: hard liquor Tobacco History: Patient Tobacco Use Status: Tobacco use Unknown Cigarette Packs Per Day: 1 Advance Directives: Advance Directives Date on File: 10/13/20 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 Current occupational status: retired Oncology Screenings - ECOG Performance Status ECOG Performance Status: 3 Home Medications and Allergies Home Medications Medication Instructions Recorded Confirmed Type bisacodyl 10 mg rectal suppository 10 mg TX DAILY 10/09/20 08/09/21 History gabapentin 300 mg capsule 300 mg PO BID@0630,1200 10/09/20 08/09/21 History metformin 500 mg tablet 500 mg PO BID 10/09/20 08/09/21 History tramadol 50 mg tablet 50 mg PO BID PRN 10/09/20 08/09/21 History trazodone 50 mg tablet 25 mg PO BEDTIME 10/09/20 08/09/21 History acetaminophen 325 mg tablet 650 mg PO Q4H PRN 03/13/21 08/09/21 History amlodipine 2.5 mg tablet 7.5 mg PO DAILY 03/13/21 08/09/21 History aspirin 81 mg chewable tablet 81 mg PO DAILY 03/13/21 08/09/21 History gabapentin 600 mg tablet 800 mg PO BEDTIME 03/13/21 08/09/21 History insulin lispro 100 unit/mL 100 sliding scale dose SUBCUT 03/13/21 08/09/21 History subcutaneous solution (Humalog QIDACHS U-100 Insulin) niacinamide 500 mg tablet 500 mg PO TID 03/13/21 08/09/21 History rosuvastatin 10 mg tablet 10 mg PO DAILY 03/13/21 08/09/21 History aluminum-mag hydroxide-simethicone 30 ml PO Q6H PRN 04/20/21 08/09/21 History 225 mg-200 mg-25 mg/5 mL oral susp nystatin-triamcinolone 100,000 1 appl TOPICAL TID 04/20/21 08/09/21 History unit/g-0.1 % topical cream guaifenesin 100 mg/5 mL oral 200 mg PO Q4H PRN 05/19/21 08/09/21 History liquid (Diabetic Tussin EX) prednisone 2.5 mg tablet 2.5 mg PO DAILY 05/19/21 08/09/21 History Allergies Allergy/AdvReac Type Severity Reaction Status Date / Time Benzodiazepines Allergy Unknown UNKNOWN Verified 04/11/21 09:47 [BENZODIAZEPINES] dalfampridine [From AMPYRA] Allergy Unknown UNKNOWN Verified 04/11/21 09:47 duloxetine [From CYMBALTA] Allergy Unknown UNKNOWN Verified 04/11/21 09:47 ezetimibe [From ZETIA] Allergy Unknown UNKNOWN Verified 04/11/21 09:47 niacin [NIACIN] Allergy Unknown UNKNOWN Verified 04/11/21 09:47 pravastatin [PRAVASTATIN] Allergy Unknown UNKNOWN Verified 04/11/21 09:47 Yqjxgry-Wvf-Dxw Reductase Allergy Unknown UNKNOWN Verified 04/11/21 09:47 Inhibitor [DQLOPRR-LEX-ATA REDUCTASE INHIBITOR] lorazepam [From ATIVAN] AdvReac Severe EXCESSIVE Verified 04/11/21 09:47 SEDATION doxycycline [DOXYCYCLINE] AdvReac Mild esophogeal Verified 04/11/21 09:47 iritation methylprednisolone AdvReac Mild heartburn Verified 04/11/21 09:47 [From SOLU-MEDROL] ertapenem [From INVANZ] AdvReac Unknown possible Verified 04/11/21 09:47 cause of bullous pemphigoid Exam Vital signs: Vital Signs Temp 97.4 F 08/09/21 12:55 Pulse 79 08/09/21 12:55 Resp 18 08/09/21 12:55 BP 117/65 08/09/21 12:55 Pulse Ox 98 08/09/21 12:55 Weight 90.9 kg Body Mass Index 26.4 - Constitutional Present: mild distress - Routine HEENT Exam Head: Present: normal inspection Eye: Present: normal appearance ENT: Present: mucous membranes moist - Routine Neck Exam Present: full ROM - Routine Respiratory Exam Present: CTAB - Routine Cardiovascular Exam Cardiovascular: Present: RRR, S1, S2 - Routine Abdominal Exam Present: soft, nontender - Routine Extremities Exam Present: nontender - Routine Back/Spine/Pelvis Exam Back/Spine: Present: full ROM - Routine Skin Exam Present: intact - Routine Neurological Exam Present: alert, oriented X3 - Detailed Neurological Exam: Coma Scale Eye Opening: Spontaneous (4) - Routine Psychiatric Exam Present: normal affect Data - Labs CBC & Chem 7: 08/09/21 13:04 08/09/21 13:04 Labs: 03/28/21 09:13 Complete Blood Count Man Dif Routine Comprehensive Met. Panel Routine Ferritin Routine IRON PROFILE Routine Lactate Dehydrogenase Routine Prostate Specific Antigen Scr Routine Reticulocyte Count Routine Vitamin B12 and Folate Routine 03/28/21 09:46 NM bone scan whole body Routine Laboratory Last Values WBC 5.5 X10*3/uL (4.8-10.8) 03/28/21 09:13 RBC 3.97 X10*6/uL (4.60-5.80) L 03/28/21 09:13 Hgb 11.5 g/dl (14.0-18.0) L 03/28/21 09:13 Hct 36.3 % (42-52) L 03/28/21 09:13 MCV 91.4 fL (80-98) 03/28/21 09:13 MCH 29.0 pg (27.0-33.0) 03/28/21 09:13 MCHC 31.7 g/dl (31.0-36.0) 03/28/21 09:13 RDW 16.6 % (11.0-16.0) H 03/28/21 09:13 Plt Count 296 X10*3/uL (160-400) D 03/28/21 09:13 MPV 9.0 fL (9.4-12.4) L 03/28/21 09:13 Absolute Nucleated RBC 0.000 X10*3/uL (0.0-0.012) 03/28/21 09:13 Nucleated RBC % (auto) 0.0 /100WBC (0.0-0.2) 03/28/21 09:13 Neutrophils % (Manual) 67 % (45-73) 03/28/21 09:13 Band Neutrophils % 0 % (3-5) L 03/28/21 09:13 Lymphocytes % (Manual) 19 % (20-40) L 03/28/21 09:13 Monocytes % (Manual) 8 % (2-11) 03/28/21 09:13 Eosinophils % (Manual) 5 % (0-4) H 03/28/21 09:13 Basophils % (Manual) 1 % (0-1) 03/28/21 09:13 Abs Neuts (Manual) 3.7 X10*3/uL (2.2-7.9) 03/28/21 09:13 Lymphocytes # (Manual) 1.0 X10*3/uL (0.6-4.8) 03/28/21 09:13 Monocytes # (Manual) 0.4 X10*3/uL (0.0-1.2) 03/28/21 09:13 Eosinophils # (Manual) 0.3 X10*3/UL (0.0-0.8) 03/28/21 09:13 Basophils # (Manual) 0.1 X10*3/uL (0.0-0.3) 03/28/21 09:13 Platelet Estimate NORMAL (NORMAL) 03/28/21 09:13 Plt Morphology Comment NORMAL 03/28/21 09:13 RBC Morphology NOTED 03/28/21 09:13 Ovalocytes 1+ (5-14) /OIF 03/28/21 09:13 Acanthocytes (Spur) 2+ (3-5) /OIF 03/28/21 09:13 Schistocytes 1+ (0-2) /OIF 03/28/21 09:13 Absolute Retic 0.082 X10*6/uL (0.026-0.095) 03/28/21 09:13 Percent Retic 2.1 % (0.5-1.8) H 03/28/21 09:13 Immature Retic Fraction 14.2 % (2.3-13.4) H 03/28/21 09:13 Retic Hgb Equivalent 35.0 pg (30.0-35.0) 03/28/21 09:13 Sodium 140 mmol/L (135-145) 03/28/21 09:13 Potassium 4.6 mmol/L (3.3-5.1) D 03/28/21 09:13 Chloride 102 mmol/L (96-108) 03/28/21 09:13 Carbon Dioxide 32 mmol/L (22-29) H 03/28/21 09:13 Anion Gap 11 (12-20) L 03/28/21 09:13 BUN 17 mg/dL (9-16) H 03/28/21 09:13 Creatinine 0.89 mg/dL (0.5-1.4) 03/28/21 09:13 Estim Creat Clear Calc 82.2 03/28/21 09:13 Estimated GFR > 60 03/28/21 09:13 Random Glucose 281 mg/dL (60-115) H D 03/28/21 09:13 Calcium 8.9 mg/dL (8.4-10.2) D 03/28/21 09:13 Iron 68 mcg/dL (45-160) 03/28/21 09:13 TIBC 274 mcg/dL (228-428) 03/28/21 09:13 % Saturation 25 % (15-50) 03/28/21 09:13 Unsat Iron Binding 206 ug/dL 03/28/21 09:13 Ferritin 83 ng/mL (20-250) 03/28/21 09:13 Total Bilirubin 0.7 mg/dL (0.0-1.0) 03/28/21 09:13 AST 21 U/L (5-37) D 03/28/21 09:13 ALT 36 U/L (0-40) 03/28/21 09:13 Alkaline Phosphatase 77 U/L (39-117) 03/28/21 09:13 Lactate Dehydrogenase 106 U/L (118-273) L 03/28/21 09:13 Total Protein 5.9 g/dL (6.5-8.0) L 03/28/21 09:13 Albumin 3.4 g/dL (3.5-5.0) L 03/28/21 09:13 PSA Screen 1.57 ng/mL (<0.05-4.0) 03/28/21 09:13 Vitamin B12 302 pg/mL (200-900) 03/28/21 09:13 Folate 7.6 ng/mL (> or = 4.0) 03/28/21 09:13 - Imaging Radiologist's impression: ITS Impressions Bone Scan Nuclear Medicine 03/28/21 09:46 IMPRESSION: This exam is limited. As stated, the baseline planar images are suboptimal due to rotation. Several areas of abnormal uptake are described above. Certainly I cannot exclude underlying bony lesions in these areas. Paucity of uptake in the region of the left hip is noted It should also be noted that multiple myeloma can have various appearances on bone scan including lack of uptake due to the indolent nature of the disease. Assessment and Plan Patient Active problem list reviewed?: Yes (1) Lytic lesion of bone on x-ray Status: Inactive Assessment and plan: A pleasant unfortunate 76-year-old gentleman with a history of MS. He was recently in the hospital for bacteremia/sepsis. He was noted to have lytic lesions in his bones on x-rays. DIFFERENTIAL DIAGNOSIS: 1. MULTIPLE MYELOMA: SIEP and serum free light chain ratio were done and are normal. 2. METASTATIC CARCINOMA: He does have a history of BPH. Could be the prostate with Mets. Or another primary. 3. OSTEOPOROSIS: He has been on chronic prednisone. 4. ANEMIA: Likely has ACD. Anemia work up was done. C/W it. I proceeded with further workup. I proceeded with anemia work up: Iron studies: 68/to 74/20 5/83. Retic: 2.1. B12 302. Folate 7.6.. I checked the labs including tumor markers: PSA: 1.57, LDH: 106. A bone scan was done on 03/28, for further evaluation. This revealed: This exam is limited. As stated, the baseline planar images are suboptimal due to rotation. Several areas of abnormal uptake are described above. Certainly I cannot exclude underlying bony lesions in these areas. Paucity of uptake in the region of the left hip is noted It should also be noted that multiple myeloma can have various appearances on bone scan including lack of uptake due to the indolent nature of the disease. Several areas of abnormal uptake a described. Certainly I cannot exclude underlying bone lesions in these areas. Paucity of uptake in the region of the left hip is noted. I discussed with Dr. Ochoa. He felt there was no cause for concern to simply repeat the bone scan in 3 months time. He is holding his own. AP is 86. PLAN: Will proceed with a bone scan, now that it has been more than 4 months. He had it done today, since he was here. This exam is limited. As stated, the baseline planar images are suboptimal due to rotation. Several areas of abnormal uptake are described above. Certainly I cannot exclude underlying bony lesions in these areas. Paucity of uptake in the region of the left hip is noted It should also be noted that multiple myeloma can have various appearances on bone scan including lack of uptake due to the indolent nature of the disease. I will review the images with the radiologist. Will then decide about further workup/or biopsy, based upon the results. He will return in 3 months for a follow-up visit. Thank you, CC: Dr. Get Martin. - Time Spent With Patient Time Spent with Patient (in minutes): 30
[2021-08-09 13:07] LABS: MANUAL DIFF FLAG NO
[2021-08-09 13:12] LABS: Basophils Percent Auto 0.1 % (0-2); Eosinophils Absolute Auto 0.6 X10*3/uL (0.0-0.4); Hematocrit 36.5 % (42-52); Hemoglobin 11.4 g/dl (14.0-18.0); Imm Gran Abs Auto 0.02 X10*3/uL (0.00-0.03); Imm Gran Pct Auto 0.3 % (0.0-0.4); Lymphocytes Absolute Auto 1.2 X10*3/uL (1.2-4.9); Lymphocytes Percent Auto 16.9 % (20-40); Mean Corpuscular HGB Conc 31.2 g/dl (31.0-36.0); Mean Corpuscular Hemoglobin 28.8 pg (27.0-33.0); Mean Corpuscular Volume 92.2 fL (80-98); Mean Platelet Volume 9.1 fL (9.4-12.4); Monocytes Absolute Auto 0.6 X10*3/uL (0.1-1.2); Monocytes Percent Auto 8.2 % (2-11); Neutrophils Absolute Auto 4.6 X10*3/uL (2.0-8.3); Neutrophils Percent Auto 66.5 % (45-73); Platelet Count 196 X10*3/uL (160-400); Red Blood Count 3.96 X10*6/uL (4.60-5.80); Red Cell Distribution Width 15.9 % (11.0-16.0); White Blood Count 6.9 X10*3/uL (4.8-10.8)
[2021-08-09 13:32] LABS: Alanine Aminotransferase 7 U/L (0-40); Albumin Level 3.7 g/dL (3.5-5.0); Alkaline Phosphatase 86 U/L (39-117); Anion Gap 12 (12-20); Aspartate Amino Transferase 12 U/L (5-37); Bilirubin Total 0.6 mg/dL (0.0-1.0); Blood Urea Nitrogen 18 mg/dL (9-16); Calcium 9.3 mg/dL (8.4-10.2); Carbon Dioxide 29 mmol/L (22-29); Chloride 104 mmol/L (96-108); Creatinine Clr Calc Pharmacy 63.6; Estimated Glomerular Filt Rate > 60; Glucose Random 222 mg/dL (60-115); Potassium 4.6 mmol/L (3.3-5.1); Sodium 140 mmol/L (135-145); Total Protein 6.4 g/dL (6.5-8.0)
--- NOTE | ~2024-08-10 | NM_ITS ---
EXAMINATION: NM BONE SCAN OF THE WHOLE BODY CLINICAL INFORMATION: Diffuse lytic bone lesions on metastatic survey COMPARISON: Report from bone survey dated 03/19/2021 TECHNIQUE: Multiple gamma scintillation camera images of the whole body were performed 2.75 hours following the intravenous administration of 32 mCi Tc-99m MDP. Exam is limited as the patient is turned within the camera and only angled baseline images are obtained FINDINGS: In the head, unremarkable In the thoracic cage and upper extremities, there is some uptake in the proximal right humerus of uncertain etiology. Some uptake also in the region of the acromion/AC joint. This is on the right as well. Some uptake in the region of the right sternoclavicular joint may be degenerative. In the spine, some uptake in the region of L4-5 on the right could be degenerative in nature. Otherwise some mottled uptake in the thoracic spine likely degenerative. Some mild uptake in the mid cervical region on the left is likely degenerative. In the pelvis, some uptake in the region of the right ischium which is focal. In the lower extremities, some questionable uptake in the proximal right femur to include the intertrochanteric region and a possibly of uptake felt to be present in the region of the left hip. There is also accentuated linear activity along the shaft of the right greater than left femur of uncertain etiology. Some uptake in the region of the knees may be degenerative in nature. Intense focal uptake lateral compartment of the right knee. No other definite bony abnormalities are noted. The urinary bladder and faint visualization of both kidneys are noted. NM/NM bone scan whole body IMPRESSION: This exam is limited. As stated, the baseline planar images are suboptimal due to rotation. Several areas of abnormal uptake are described above. Certainly I cannot exclude underlying bony lesions in these areas. Paucity of uptake in the region of the left hip is noted It should also be noted that multiple myeloma can have various appearances on bone scan including lack of uptake due to the indolent nature of the disease.
== END | disposition home or self-care (01) ==
LOC: HO.ONC 03-28 07:52
PROVIDERS: Visit Provider Internal Medicine Medical Oncology
DX: M89.9 Disorder of bone, unspecified (principal); G35 Multiple sclerosis
CPT/HCPCS: 36415; 78306; 80053; 82607; 82728; 82746; 83540; 83615; 84153; 85007; 85025; 85027; 85045; 99204; 99214; A9503

== ENCOUNTER 2025-07-10 15:58 | Inpatient (IN) | payer OTHER, SELFPAY ==
[2025-07-10] VITALS (11 sets, daily range): BP systolic 82–147; BP diastolic 43–67; PULSE 95–109; RESP 16–17; TEMP 36.3–37.1; O2SAT 93–97; BMI 25.1
--- NOTE | ~2025-07-10 | CT_ITS ---
EXAMINATION: CT CHEST WITHOUT CONTRAST CLINICAL INFORMATION: Chest pain, concern for esophageal perforation. COMPARISON: Prior day. TECHNIQUE: Multidetector volumetric CT imaging of the chest was done. Axial MIP volume rendering provided. Sagittal and coronal reformatted images were obtained. This CT examination was performed using dose optimization techniques as appropriate, variously including the following: *Automated exposure control *Adjustment of mA and/or kV according to patient size (this includes techniques or standardized protocols for targeted exams where dose is matched to indication/reason for exam; i.e. extremities or head) *Use of iterative reconstruction technique FINDINGS: LUNGS: There are stable consolidative opacities in the posterior lower lobes left greater than right, and in the posterior left upper lobe as well, with lesser findings in the medial right middle lobe. Findings likely represent pneumonia. Cannot exclude aspiration. There is a trace left effusion. There is no pneumothorax. Small airways appear grossly normal. MEDIASTINUM: There is no mediastinal lymphadenopathy or mass. The esophagus is again noted to be patulous without definitive tear by CT or extraluminal gas. There is some intraluminal debris or retained food present. No extravasated contrast is present. The central airways are patent. The heart size is normal. There is no pericardial effusion. There is no thyroid abnormality. The aorta is nonaneurysmal. CORONARY ARTERY CALCIFICATION: Mild three-vessel calcification. AXILLA/CHEST WALL: No mass or lymphadenopathy. UPPER ABDOMEN: Retained oral contrast within the fundus of the stomach and within the imaged colon. Mild gallbladder distention. No wall thickening. OSSEOUS STRUCTURES: No suspicious lytic or blastic bone lesions. CT/CT chest wo IV con IMPRESSION: 1. No change in the examination over the last day, without CT evidence of esophageal perforation. Esophagus is somewhat patulous in appearance with some retained intraluminal debris present. No extravasated contrast is noted. 2. Stable and unchanged bibasilar airspace consolidations most confluent in the left lower lobe with a trace left pleural effusion. Pneumonia is suspected. Consider aspiration. Electronically signed by: Maycol Jolly MD 07/19/2025 10:05 AM EDT
--- NOTE | ~2025-07-10 | CT_ITS ---
EXAMINATION: CT ABDOMEN PELVIS WITHOUT IV CONTRAST HISTORY: Abdominal pain COMPARISON: Comparison is made with the prior examination dated 07/12/2025. TECHNIQUE: CT scan of the abdomen and pelvis was performed without contrast using standard departmental protocol. Coronal and sagittal reformatted images were generated and reviewed. Oral contrast material was not administered at the request of the referring physician. This CT exam was performed with one or more of the following dose reduction techniques: automated exposure control, adjustment of the mA and/or kV according to patient size, use of iterative reconstruction technique. DLP: 506 mGy-cm FINDINGS: LOWER CHEST: Again is seen is patchy airspace opacity at both lung bases, consistent with atelectasis or pneumonia. There is a tiny left pleural effusion. CARDIOVASCULATURE: The heart is normal in size. There is no pericardial effusion. LIVER: The liver is normal in size and contour. The liver has an unremarkable unenhanced appearance. GALLBLADDER / BILE DUCTS: There is vicarious excretion of contrast material from the prior study via the gallbladder. There is no intra or extrahepatic biliary ductal dilatation. SPLEEN: The spleen is normal in size and has an unremarkable unenhanced appearance. PANCREAS: The pancreas has an unremarkable unenhanced appearance. ADRENAL GLANDS: Unremarkable. KIDNEYS/RETROPERITONEUM: No renal calculi are identified. There is no hydronephrosis. LYMPH NODES: No retroperitoneal lymphadenopathy is identified in the abdomen or pelvis. VASCULATURE: The abdominal aorta is normal in caliber. MESENTERY/PERITONEUM: There is a small amount of fluid in the left paracolic gutter.. No masses. There is no free intraperitoneal gas. STOMACH: The stomach is markedly distended with gas and fluid. SMALL BOWEL: The duodenum is distended with fluid. The duodenum tapers as it crosses the spine. The remainder of the small bowel is normal in caliber. COLON: Again seen is wall thickening of the rectosigmoid colon which may indicate colitis. APPENDIX: Normal. URINARY BLADDER/PELVIC ORGANS: The urinary bladder is decompressed with a Nunez catheter. The prostate is normal in size. BONES / SOFT TISSUES: There is degenerative disc disease of the spine. There is a mild compression deformity of L1. CT/CT abdomen pelvis wo IV con IMPRESSION: 1. Patchy airspace opacity at both lung bases, consistent with atelectasis versus pneumonia. 2. Marked distention of the stomach with gas and fluid. There is fluid distention of the duodenum which narrows as it crosses the spine. Duodenal obstruction is not excluded. 3. Wall thickening of the rectosigmoid colon, suggestive of colitis as seen previously. Electronically signed by: Yves Rodriguez MD 07/15/2025 12:38 PM EDT
--- NOTE | ~2025-07-10 | XR_ITS ---
CLINICAL HISTORY: endoclip 1 view abdomen Comparison: CR/SR - XR ABDOMEN 1 VIEW (KUB) - 07/12/25 14:25 EDT Findings: No gross evidence of pneumoperitoneum or pneumatosis. No bowel dilatation. Nonspecific bowel gas pattern. Mild distention of the stomach with gas and contrast. No abnormal calcifications. No acute fractures. The endo clip is within the left upper quadrant, likely within the proximal body of the stomach. There is a catheter within the bladder. IMPRESSION: The endo clip is within the left upper quadrant, likely within the proximal body of the stomach. This document has been electronically signed by: Maggie Bello MD on 07/18/2025 18:15:11
--- NOTE | ~2025-07-10 | CT_ITS ---
CLINICAL HISTORY: Abdominal CT abdomen and pelvis with contrast Comparison: CT of the abdomen and pelvis from 05/28/2024 Findings: Small bilateral pleural effusions with underlying atelectasis and/or consolidation of the imaged lung bases, left worse than right. Differential considerations include pneumonia. Postobstructive phenomenon also considered. Mild cardiomegaly. Vascular calcifications noted; with calcified and noncalcified plaque of the imaged aorta and its branches. The adrenal glands are normal, accounting for artifacts. Gallbladder is distended. Question mild liver surface nodularity accounting for artifacts. Mild volume loss of the pancreas. Pancreatic duct is at the upper limits of normal. Spleen is nonenlarged. No hydronephrosis. No suspicious features of the 1.4 cm cysts of the lower pole of the left kidney. Multiple cystic lesions in the kidneys are otherwise too small to characterize. Small mesenteric and periaortic lymph nodes are nonspecific. Mild nonspecific distention of the stomach. No small bowel obstruction. Imaged appendix is nondilated. Fluid in the cecum can be seen with diarrhea type illnesses and colitis. Mild wall thickening of the sigmoid colon and rectum and nonspecific with left lateral rectal wall measuring 1.2 cm thickness selectively. The prostate gland measures 4.5 cm transverse. Gas and Nunez catheter noted within the urinary bladder with moderate nonspecific wall thickening of the urinary bladder. Mild pelvis deformities appear old/chronic. Moderate osteoarthritis of the both hips. Low bone mineralization suggested. Mild height loss of the L1 compression fracture appears old/chronic and accentuated by upper endplate Schmorl's node. Facet arthropathy and ligament calcifications are multifocal. Dorsal edema and soft tissue fluid is nonspecific. Bilateral effusions are redemonstrated, left worse than right. Small fat containing inguinal hernias. IMPRESSION: 1. Wall thickening of the distal large intestine including rectum is nonspecific. Differential considerations include colitis and proctitis. Other bowel wall pathology not excluded by CT. 2. No small bowel obstruction. 3. Small bilateral pleural effusions with underlying atelectasis and/or consolidation of the imaged lung bases, left worse than right. Differential considerations include pneumonia. Please consider attention on follow-up to ensure resolution. This document has been electronically signed by: Edmundo Sen MD on 07/12/2025 20:45:52
--- NOTE | ~2025-07-10 | XR_ITS ---
EXAMINATION: XR ABDOMEN 1 VIEW (KUB) HISTORY: abdominal distention, rule out SBO COMPARISON: There are no prior studies available for comparison. FINDINGS: Two supine views of the abdomen are submitted. The catheter projects over the pelvis. There is marked gaseous distention of the stomach. Small amount of gas is seen in the colon. No abnormal calcifications are identified. There are no abnormal soft tissue masses. The bones are osteopenic. There is degenerative change of the spine. XR/XR KUB IMPRESSION: Marked gaseous distention of the stomach. Findings could represent gastric outlet obstruction. Electronically signed by: Yves Rodriguez MD 07/12/2025 02:37 PM EDT
--- NOTE | ~2025-07-10 | XR_ITS ---
CLINICAL HISTORY: NG tube placement Single view of the chest. COMPARISON: XR chest dated 05/28/24 at 15:12 EDT FINDINGS: Enteric tube extends into the abdomen with side hole overlying the expected location of the stomach fundus with tip extending outside the field of view. Borderline cardiomegaly. Consolidation along the left lung base. Blunting of the left costophrenic angle. No pneumothorax. No acute fracture. IMPRESSION: 1. Enteric tube (NG) side hole overlies the expected location of the stomach fundus. 2. Consolidation along the left lung base may represent atelectasis, aspiration pneumonitis or pneumonia. This document has been electronically signed by: Eliu Talbot MD on 07/15/2025 18:34:42
--- NOTE | ~2025-07-10 | CT_ITS ---
EXAMINATION: CT CHEST WITHOUT IV CONTRAST INDICATION: r/o esophageal perforation COMPARISON: Comparison is made with the prior examination dated 02/25/2024. TECHNIQUE: Helical CT scan of the chest was performed without intravenous contrast. The patient drank oral contrast material prior to the procedure. Coronal and sagittal reformatted images were generated and reviewed. This CT exam was performed with one or more of the following dose reduction techniques: automated exposure control, adjustment of the mA and/or kV according to patient size, use of iterative reconstruction technique. DLP: 229 mGy-cm CHEST: THYROID: The thyroid is unremarkable. LUNGS: There is airspace opacity in both lower lobes which may represent pneumonia or aspiration. Smaller opacities are seen in the upper lobes. MEDIASTINUM: There is no mediastinal lymphadenopathy. DESHAUN: Evaluation of the hilar regions is limited by lack of intravenous contrast material. CARDIOVASCULATURE: The heart is normal in size. There is no pericardial effusion. The thoracic aorta is normal in caliber. DEGREE OF CORONARY CALCIFICATION: mild PLEURA: There is a small left pleural effusion. There is no right pleural effusion. No pneumothorax. MAIN AIRWAYS: The mainstem bronchi and proximal branches are patent. AXILLA: There is no axillary lymphadenopathy. BONES AND SOFT TISSUES: There is no evidence of extravasation of oral contrast material from the esophagus. A filling defect is seen within the esophagus just below the level of the steffanie. UPPER ABDOMEN: The visualized portions of the liver, spleen, and adrenals have an unremarkable unenhanced appearance. There is vicarious excretion of contrast material via the gallbladder from an abdominal CT with contrast dated April 14, 2025. There is a large amount of streak artifact from dense contrast in the stomach. CT/CT chest wo IV con IMPRESSION: 1. No evidence of extravasation of oral contrast material from the esophagus. An esophageal tear cannot be excluded, however. This would need to be evaluated by prior swallow or upper endoscopy. 2. Filling defect within the esophagus just below the level of the steffanie. This could represent debris or hemorrhage or a mass. 3. Airspace opacities in both lower lobes which may represent pneumonia or aspiration. Electronically signed by: Yves Rodriguez MD 07/18/2025 03:14 PM EDT RP
--- NOTE | ~2025-07-10 | XR_ITS ---
CLINICAL HISTORY: Cordace left IJ 1 view chest x-ray Comparison: CR - XR CHEST 1V - 07/15/25 17:40 EDT Findings: Mild airspace opacities within the bilateral lower lungs. No consolidative process. Normal size heart. Left internal jugular central venous sheath at the junction between the left internal jugular vein and the left innominate vein. The sheath appears kinked in the region of the skin entry site. The endotracheal tube tip is 5.5 cm above the steffanie. No acute fracture. IMPRESSION: 1. Left internal jugular central venous sheath at the junction between the left internal jugular vein and the left innominate vein. The sheath appears kinked in the region of the skin entry site. The endotracheal tube tip is 5.5 cm above the steffanie. 2. Mild atelectasis and/or infiltrate within the bilateral lower lungs. This document has been electronically signed by: Maggie Bello MD on 07/19/2025 17:54:29
--- NOTE | 2025-07-10 16:00 | ECG_ITS ---
Test Reason : chest pain Blood Pressure : */* mmHG Vent. Rate : 98 BPM Atrial Rate : 98 BPM P-R Int : 164 ms QRS Dur : 108 ms QT Int : 356 ms P-R-T Axes : 57 47 39 degrees QTcB Int : 454 ms Normal sinus rhythm Nonspecific ST abnormality Abnormal ECG When compared with ECG of 05-Jun-2024 12:07, Premature ventricular complexes are no longer Present QT has shortened Referred By: Gloria Meng Electronically Signed By: Austen Castaneda
[2025-07-10 16:35] LABS: Hematocrit 33.8 % (42.0-52.0); Hemoglobin 11.7 g/dl (14.0-18.0); Mean Corpuscular HGB Conc 34.6 g/dl (31.0-36.0); Mean Corpuscular Hemoglobin 32.9 pg (27.0-33.0); Mean Corpuscular Volume 94.9 fL (80.0-98.0); NRBC Abs Auto 0.020 X10*3/uL (0.0-0.012); NRBC Pct Auto 0.1 /100WBC (0.0-0.2); Platelet Count 130 X10*3/uL (160-400); Red Blood Count 3.56 X10*6/uL (4.60-5.80); White Blood Count 26.2 X10*3/uL (4.8-10.8)
[2025-07-10 16:42] LABS: INTERNATIONAL NORM RATIO 1.0 (0.9-1.1); Prothrombin Time 11.2 SEC (10.9-12.4)
[2025-07-10 16:46] LABS: Alanine Aminotransferase 17 U/L (0-40); Albumin Level 3.1 g/dL (3.5-5.0); Alkaline Phosphatase 66 U/L (39-117); Anion Gap 17 (12-20); Aspartate Amino Transferase 33 U/L (5-37); Blood Urea Nitrogen 29 mg/dL (9-16); Calcium 8.3 mg/dL (8.4-10.2); Carbon Dioxide 20 mmol/L (22-29); Chloride 102 mmol/L (96-108); Creatinine Clr Calc Pharmacy 39.7; Estimated Glomerular Filt Rate 40; Magnesium 1.8 mg/dL (1.6-2.6); Potassium 4.2 mmol/L (3.3-5.1); Sodium 135 mmol/L (135-145); Total Protein 6.1 g/dL (6.5-8.0)
[2025-07-10 16:48] LABS: Band Neutrophils Percent 3 % (3-5); Basophils Abs Manual 0.3 X10*3/uL (0.0-0.2); Basophils Percent Manual 1 % (0-2); Lymphocytes Absolute Manual 0.3 X10*3/uL (1.2-4.9); Lymphocytes Percent Manual 1 % (20-40); Metamyelocytes Absolute 0.3 X10*3/uL; Metamyelocytes Percent 1 %; Monocytes Absolute Manual 0.3 X10*3/uL (0.1-1.2); Monocytes Percent Manual 1 % (2-11); Neutrophils Absolute Manual 25.2 X10*3/uL (2.0-8.3); Neutrophils Percent Manual 93 % (45-73)
[2025-07-10 16:50] LABS: RBC Morphology NORMAL; Toxic Vacuolation PRESENT; Troponin-I High Sensitivity 13.5 ng/L (<3.5-35.0)
[2025-07-10 17:19] LABS: Resp Syncy Virus RNA Qual PCR NEGATIVE (Negative); SARS COV2 PCR INHOUSE NEGATIVE (Negative)
--- NOTE | 2025-07-10 19:41 | ED.CHESTPAIN ---
HPI - Chest Pain General Chief Complaint: Chest Pain Stated Complaint: chest pain Time Seen by Provider: 07/10/25 19:41 Source: EMS Mode of arrival: EMS Limitations: altered mental status History of Present Illness ED Provider: Maycol HUGHES HPI narrative: The patient is a 80-year-old male with history of multiple sclerosis, diabetes, previous CA, dementia, and chronic Nunez catheter due to retention, presenting to the ED via EMS from his retirement for evaluation of chest pain. The patient reportedly was complaining of left-sided and epigastric chest/abdominal pain which the patient describes as a gas bubble. Patient reports this pain has fully resolved prior to this provider's interview and exam. The patient is pleasantly confused, ability to provide a reliable HPI is questionable, however the patient denies any acute somatic complaint, denies abdominal pain, shortness of breath, cough, vomiting, or headache. Patient however was found to be hypotensive, with markedly cloudy urine in his Nunez catheter. Patient does not know when Nunez catheter was last changed, but reports a catheter has been present for over a year. Related Data Home Medications ?Medication ?Instructions ?Recorded ?Confirmed tramadol 50 mg tablet 50 mg PO BEDTIME PRN moderate to 10/09/20 05/28/24 severe pain acetaminophen 325 mg tablet 650 mg PO Q4H PRN pain or fever 03/13/21 05/28/24 rosuvastatin 10 mg tablet 10 mg PO DAILY 03/13/21 05/28/24 Held on 06/11/24. Instructions: Resume on 06/14/24. guaifenesin 100 mg/5 mL oral 200 mg PO Q4H PRN Cough 05/19/21 05/28/24 liquid (Diabetic Tussin EX) prednisone 2.5 mg tablet 2.5 mg PO DAILY 05/19/21 05/28/24 amlodipine 10 mg tablet 10 mg PO DAILY 11/16/23 05/28/24 bismuth subsalicylate 262 mg/15 mL 524 mg PO Q8H PRN UPSET 11/16/23 05/28/24 oral suspension (Pepto-Bismol) STOMACH/NAUSEA ceramides 1,3,6-II (CeraVe topical 1 appl topical BID Dry Skin 11/16/23 05/28/24 cream) docusate sodium 100 mg capsule 100 mg PO BID 11/16/23 05/28/24 (Colace) famotidine 20 mg tablet 20 mg PO BID 11/16/23 05/28/24 folic acid 1 mg tablet 1 mg PO SUTUWETHFRSA 11/16/23 05/28/24 insulin glargine-yfgn 100 unit/mL 5 unit subcut BEDTIME 11/16/23 05/28/24 subcutaneous solution lactulose 10 gram/15 mL oral 30 ml PO DAILY 11/16/23 05/28/24 solution (Enulose) melatonin 5 mg tablet 5 mg PO BEDTIME PRN Insomnia 11/16/23 05/28/24 polyethylene glycol 3350 17 17 g PO DAILY 11/16/23 05/28/24 gram/dose oral powder (Miralax) methotrexate sodium 2.5 mg tablet 15 mg PO MO 02/25/24 05/28/24 bisacodyl 5 mg tablet 5 mg PO DAILY PRN Constipation 03/31/24 05/28/24 aspirin 81 mg tablet,delayed 81 mg PO DAILY 04/23/24 05/28/24 release bisacodyl 10 mg rectal suppository 10 mg VT DAILY PRN Constipation 04/23/24 05/28/24 bisacodyl 10 mg rectal suppository 10 mg VT Q3D 04/23/24 05/28/24 guaifenesin 600 mg tablet, 600 mg PO Q12H PRN Cold Symptoms 04/23/24 05/28/24 extended release 12 hr (Mucinex) sodium phosphates 19 gram-7 118 ml VT DAILY PRN Constipation 04/23/24 05/28/24 gram/118 mL enema (Fleet Enema) triamcinolone acetonide 0.1 % 1 appl topical BID 05/28/24 05/28/24 topical cream Previous Rx's ?Medication ?Instructions ?Recorded amlodipine 10 mg tablet 10 mg PO DAILY #30 tabs 06/11/24 carvedilol 6.25 mg tablet 6.25 mg PO BID #60 tabs 06/11/24 gabapentin 300 mg capsule 300 mg PO TID #90 caps 06/11/24 insulin lispro 100 unit/mL See Protocol subcut QIDACHS #10 mL 06/11/24 subcutaneous solution (Admelog U-100 Insulin lispro) nystatin 100,000 unit/gram topical 1 appl topical BID groin rash #60 06/11/24 powder grams quetiapine 25 mg tablet 25 mg PO BEDTIME #30 tabs 06/11/24 Allergies Allergy/AdvReac Type Severity Reaction Status Date / Time Benzodiazepines Allergy Unknown UNKNOWN Verified 07/10/25 16:36 (BENZODIAZEPINES) dalfampridine (From AMPYRA) Allergy Unknown UNKNOWN Verified 07/10/25 16:36 duloxetine (From CYMBALTA) Allergy Unknown UNKNOWN Verified 07/10/25 16:36 ezetimibe (From ZETIA) Allergy Unknown UNKNOWN Verified 07/10/25 16:36 niacin (NIACIN) Allergy Unknown UNKNOWN Verified 07/10/25 16:36 pravastatin (PRAVASTATIN) Allergy Unknown UNKNOWN Verified 07/10/25 16:36 Cyptkos-PKY-DfK Reductase Allergy Unknown UNKNOWN Verified 07/10/25 16:36 Inhibitor ([id number] REDUCTASE INHIBITOR) lorazepam (From ATIVAN) AdvReac Severe EXCESSIVE Verified 07/10/25 16:36 SEDATION doxycycline (DOXYCYCLINE) AdvReac Mild esophogeal Verified 07/10/25 16:36 iritation methylprednisolone (From AdvReac Mild heartburn Verified 07/10/25 16:36 SOLU-MEDROL) ertapenem (From INVANZ) AdvReac Unknown possible Verified 07/10/25 16:36 cause of bullous pemphigoid Review of Systems Review of Systems: Yes all other systems are reviewed and are negative [facility] Past Medical History Medical History Steroid dependence EDWARD (acute kidney injury) UTI (urinary tract infection) due to urinary indwelling Nunez catheter Bullous pemphigoid Decubitus ulcer of coccygeal region, stage 2 Acute hypotension Sepsis Aspiration pneumonitis Recurrent UTI (urinary tract infection) Hypotonic neurogenic bladder Lytic lesion of bone on x-ray Wound of foot Anemia Septic shock Shoulder pain Constipation Hematuria Multiple sclerosis Depression Diabetes mellitus type 2 in obese Chronic pain syndrome BPH (benign prostatic hyperplasia) Dehydration Chronic renal failure Urinary tract infection Surgical History Hx of removal of cyst Family History Family History Family/Other Heart attack Father Diabetes Social History Social History Household Members: Unknown / Unable to assess Household Members Other:: lives at [facility] on [address] in [place] Housing: [employer] Housing Other:: [facility] Unable to assess alcohol history related to: Unable to respond Alcohol intake: never Comment: BEDFAST Patient Tobacco Use Status: Former Tobacco user Cigarette Packs Per Day: 1 Smoked in Last 30 Days: No Use of substances other than those prescribed or required for medical reasons: No Advance Directives: Yes Advance Directives on File: Yes Advance Directives Date on File: 10/13/20 Do you have a plan to hurt others: No Plan service: Yes Current occupational status: retired Physical Exam Vital Signs: Vital Signs: Last Vital Signs Temp 97.4 F 07/10/25 22:04 Pulse 109 H 07/10/25 22:04 Resp 17 07/10/25 22:04 BP 122/62 07/10/25 22:04 Pulse Ox 93 07/10/25 22:04 O2 Del Method Room Air 07/10/25 22:04 BMI result Body Mass Index 25.1 CONSTITUTIONAL: The patient appears chronically ill, borderline cachectic, but otherwise afebrile and in no acute distress. Vital signs as documented. HEAD: Atraumatic, normocephalic. EYES: EOMs grossly intact, pupils equal, conjunctiva clear, no exudate. ENT: Nares patent, no discharge. Airway patent, no audible stridor, visible mucosa is pink and moist without noted lesions. NECK: Trachea is midline, no obvious masses or gross abnormalities. CHEST: Symmetric movement, normal appearance. LUNGS: LS present and CTAB, no w/r/r. Non-labored work of breathing. CARDIAC: Regular Rhythm, S1/S2 appreciated, no murmurs, rubs or gallops. ABDOMEN: Abdomen soft and non-tender x4 quadrants, no palpable masses or organomegaly. : Nunez catheter present without evidence of leaking, however urine in catheter appears markedly cloudy with sediment. EXTREMITIES: Normal tone, moves all extremities spontaneously without reported pain. No obvious acute injury or deformity noted. NEURO: Alert and pleasantly confused, CN II-XII appear grossly intact. Cerebellar Functioning grossly intact. No obvious sensory or motor deficits. Speech clear and appropriate. PSYCH: normal affect, appropriate eye contact, fluid speech, with appropriate response to questioning. No reported suicidality or homicidality. SKIN: Warm, dry, color appropriate, normal turgor. No rashes noted. Medications Administered Discontinued Medications Generic Name Dose Route Start Last Admin Trade Name Abbe PRN Reason Stop Dose Admin Al Hydroxide/Mg Hydroxide 30 ml 07/10/25 21:44 07/10/25 21:50 Magnesium Hydrox/Alum Hydrox 30 Ml Oral.Susp PO 07/10/25 21:45 30 ml ONCE ONE Administration Ceftriaxone Sodium 1 gm 07/10/25 19:41 07/10/25 20:04 Ceftriaxone Sodium 1 Gm Vial IVPUSH 07/10/25 19:42 1 gm ONCE ONE Administration Famotidine 20 mg 07/10/25 21:44 07/10/25 21:49 Famotidine 20 Mg Tablet PO 07/10/25 21:45 20 mg ONCE ONE Administration Sodium Chloride 2,514 mls @ 2,514 mls/hr 07/10/25 19:41 07/10/25 21:45 Ns 30 ml/kg infuse over 1 hr (2514 ml) 07/10/25 20:40 Infused IV Infusion .Q1H STA Lidocaine HCl 15 ml 07/10/25 21:44 07/10/25 21:49 Lidocaine Hcl Viscous 2 % 15 Ml Solution PO 07/10/25 21:45 15 ml ONCE ONE Administration Ondansetron HCl 4 mg 07/10/25 21:44 07/10/25 21:49 Ondansetron Hcl 4 Mg/2 Ml Vial IVPUSH 07/10/25 21:45 4 mg ONCE ONE Administration Medical Decision Making Medical Decision Making MDM Narrative: 8:05 PM 07/10/2025 (Robbi HUGHES): The patient is a 80-year-old male presenting to the ED via EMS from his retirement for evaluation of chest pain which patient reports has resolved upon arrival to the ED. the patient was noted however to be hypotensive with a markedly cloudy and sediment filled Nunez catheter tube. The patient denies other acute somatic complaint, exam reveals no other acute findings. The patient's laboratory evaluation shows marked leukocytosis of 26,000 with neutrophilia, as well as mild anemia, and EDWARD with BUN 29 creatinine 1.68. No electrolyte abnormalities appreciated, unremarkable LFTs. Patient's viral swabs are negative. Troponin negative, EKG shows sinus rhythm, no evidence of acute ischemia. Given the patient's hypotension with leukocytosis and suspected urinary infection, a sepsis protocol was initiated, lactic acid and blood cultures were added on, patient will receive a 30 cc/kilos fluid bolus, and patient has been treated empirically with Rocephin. Expect patient will require admission. 9:54 PM 07/10/2025 (Robbi HUGHES): The patient's Nunez catheter was removed to be replaced, unfortunately however despite multiple attempts for multiple RNs with various sizes and types of catheters, we have been unable to replace a new Nunez catheter. Patient's bladder scan is currently 260 mL. Patient's case has been discussed with Dr. Bartholomew from Urology to request urology consult to pass catheter, or to discuss possible alternative options. Awaiting call back. 11:24 PM 07/10/2025 (Robbi HUGHES): Patient's case was discussed with Dr. Bartholomew from Urology who advises, based on current bladder scan, he will come see the patient tomorrow morning to place a Nunez catheter. Patient is currently in no acute distress, we will admit to medicine for urosepsis. Admission/Observation Consideration of admission/observation: Escalation of care including admission/observation considered Lab Data 07/10/25 16:21 07/10/25 16:21 Labs: Lab Results 07/10/25 07/10/25 07/10/25 Range/Units 16:21 16:37 20:00 WBC 26.2 H (4.8-10.8) X10*3/uL RBC 3.56 L D (4.60-5.80) X10*6/uL Hgb 11.7 L D (14.0-18.0) g/dl Hct 33.8 L D (42.0-52.0) % MCV 94.9 (80.0-98.0) fL MCH 32.9 (27.0-33.0) pg MCHC 34.6 (31.0-36.0) g/dl RDW 16.0 (11.0-16.0) % Plt Count 130 L D (160-400) X10*3/uL MPV 9.0 L (9.4-12.4) fL Immature Gran % (Auto) Cancelled Neut % (Auto) Cancelled Lymph % (Auto) Cancelled Jerome % (Auto) Cancelled Eos % (Auto) Cancelled Baso % (Auto) Cancelled Lymph # (Auto) Cancelled Jerome # (Auto) Cancelled Eos # (Auto) Cancelled Baso # (Auto) Cancelled Abs Immat Gran (auto) Cancelled Absolute Neuts (auto) Cancelled Absolute Nucleated RBC 0.020 H (0.0-0.012) X10*3/uL Nucleated RBC % (auto) 0.1 (0.0-0.2) /100WBC Neutrophils % (Manual) 93 H (45-73) % Band Neutrophils % 3 (3-5) % Lymphocytes % (Manual) 1 L (20-40) % Monocytes % (Manual) 1 L (2-11) % Basophils % (Manual) 1 (0-2) % Metamyelocytes % 1 % Abs Neuts (Manual) 25.2 H (2.0-8.3) X10*3/uL Lymphocytes # (Manual) 0.3 L (1.2-4.9) X10*3/uL Monocytes # (Manual) 0.3 (0.1-1.2) X10*3/uL Basophils # (Manual) 0.3 H (0.0-0.2) X10*3/uL Metamyelocytes # 0.3 X10*3/uL Toxic Vacuolation PRESENT Platelet Estimate SLIGHTLY DECREASED (NORMAL) Plt Morphology Comment NORMAL RBC Morphology NORMAL PT 11.2 (10.9-12.4) SEC INR 1.0 (0.9-1.1) Sodium 135 (135-145) mmol/L Potassium 4.2 (3.3-5.1) mmol/L Chloride 102 (96-108) mmol/L Carbon Dioxide 20 L (22-29) mmol/L Anion Gap 17 (12-20) BUN 29 H (9-16) mg/dL Creatinine 1.68 H (0.5-1.4) mg/dL Estim Creat Clear Calc 39.7 Estimated GFR 40 Random Glucose 101 (60-115) mg/dL Lactic Acid 2.6 H* (0.5-2.0) mmol/L Lactic Acid F/U @ 2Hr (0.5-2.0) mmol/L Calcium 8.3 L (8.4-10.2) mg/dL Magnesium 1.8 (1.6-2.6) mg/dL Total Bilirubin 1.0 (0.0-1.0) mg/dL AST 33 (5-37) U/L ALT 17 (0-40) U/L Alkaline Phosphatase 66 (39-117) U/L Troponin I High Sens 13.5 (<3.5-35.0) ng/L Total Protein 6.1 L (6.5-8.0) g/dL Albumin 3.1 L (3.5-5.0) g/dL Influenza Type A (PCR) NEGATIVE (Negative) Influenza Type B (PCR) NEGATIVE (Negative) RSV RNA Qual (PCR) NEGATIVE (Negative) SARS-CoV-2 RNA (RT-PCR) NEGATIVE (Negative) 07/10/25 Range/Units 22:10 WBC (4.8-10.8) X10*3/uL RBC (4.60-5.80) X10*6/uL Hgb (14.0-18.0) g/dl Hct (42.0-52.0) % MCV (80.0-98.0) fL MCH (27.0-33.0) pg MCHC (31.0-36.0) g/dl RDW (11.0-16.0) % Plt Count (160-400) X10*3/uL MPV (9.4-12.4) fL Immature Gran % (Auto) Neut % (Auto) Lymph % (Auto) Jerome % (Auto) Eos % (Auto) Baso % (Auto) Lymph # (Auto) Jerome # (Auto) Eos # (Auto) Baso # (Auto) Abs Immat Gran (auto) Absolute Neuts (auto) Absolute Nucleated RBC (0.0-0.012) X10*3/uL Nucleated RBC % (auto) (0.0-0.2) /100WBC Neutrophils % (Manual) (45-73) % Band Neutrophils % (3-5) % Lymphocytes % (Manual) (20-40) % Monocytes % (Manual) (2-11) % Basophils % (Manual) (0-2) % Metamyelocytes % % Abs Neuts (Manual) (2.0-8.3) X10*3/uL Lymphocytes # (Manual) (1.2-4.9) X10*3/uL Monocytes # (Manual) (0.1-1.2) X10*3/uL Basophils # (Manual) (0.0-0.2) X10*3/uL Metamyelocytes # X10*3/uL Toxic Vacuolation Platelet Estimate (NORMAL) Plt Morphology Comment RBC Morphology PT (10.9-12.4) SEC INR (0.9-1.1) Sodium (135-145) mmol/L Potassium (3.3-5.1) mmol/L Chloride (96-108) mmol/L Carbon Dioxide (22-29) mmol/L Anion Gap (12-20) BUN (9-16) mg/dL Creatinine (0.5-1.4) mg/dL Estim Creat Clear Calc Estimated GFR Random Glucose (60-115) mg/dL Lactic Acid (0.5-2.0) mmol/L Lactic Acid F/U @ 2Hr 2.0 (0.5-2.0) mmol/L Calcium (8.4-10.2) mg/dL Magnesium (1.6-2.6) mg/dL Total Bilirubin (0.0-1.0) mg/dL AST (5-37) U/L ALT (0-40) U/L Alkaline Phosphatase (39-117) U/L Troponin I High Sens (<3.5-35.0) ng/L Total Protein (6.5-8.0) g/dL Albumin (3.5-5.0) g/dL Influenza Type A (PCR) (Negative) Influenza Type B (PCR) (Negative) RSV RNA Qual (PCR) (Negative) SARS-CoV-2 RNA (RT-PCR) (Negative) Discharge Plan Discharge Clinical Impression: Acute UTI (urinary tract infection), Obstructive uropathy Patient Disposition: Admitted As Inpatient Print Language: Sammarinese
[2025-07-10] MEDS: SODIUM CHLORIDE 2514 ML IV (20:04)
--- NOTE | 2025-07-10 20:22 | PC.NURSE ---
Pt blood pressures noted to be in the 90s/40s, notified SAUL Severino. Sepsis protocol called. two sets of BC and lactic obtain and sent down to labs. Second IV placed in right wrist. 30ml/kg sepsis IV fluids infusing, antibiotics given. 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 Notified provider. Plan of care ongoing
--- NOTE | 2025-07-10 21:29 | MHC.EVENTN ---
Pt was bladder scanned. It was less then 263
[2025-07-10] MEDS: Lidocaine HCl Viscous 2 % 15 ML SOLUTION PO (21:49)
[2025-07-10] MEDS: Magnesium Hydrox/Alum Hydrox 30 ML ORAL.SUSP PO (21:50)
[2025-07-10 22:04] LABS: Reflex Lactate? Lactic Acid Added
[2025-07-10 22:31] LABS: ~Lactic Acid-LAB USE ONLY 2.0 mmol/L (0.5-2.0)
--- NOTE | 2025-07-11 | ECG_ITS ---
Test Reason : CHEST PAIN Blood Pressure : */* mmHG Vent. Rate : 109 BPM Atrial Rate : 109 BPM P-R Int : 168 ms QRS Dur : 108 ms QT Int : 364 ms P-R-T Axes : 69 41 -33 degrees QTcB Int : 490 ms Sinus tachycardia with occasional Premature ventricular complexes ST & T wave abnormality, consider inferior ischemia Abnormal ECG When compared with ECG of 10-Jul-2025 16:26, Premature ventricular complexes are now Present nonspecific T wave changes Referred By: Jennifer Felix Electronically Signed By: Austen Castaneda
--- NOTE | 2025-07-11 00:18 | PM.IMHP ---
History of Present Illness Date of Service: 07/11/25 Chief Complaint: AMS This has a 80-year-old chronically bed bound male, resident of [facility] with pertinent history of bullous pemphigoid, MS, chronic Nunez, mood disorder, insulin-dependent type 2 diabetes mellitus, mixed hyperlipidemia, hypertension who was sent to the emergency department for evaluation of altered mentation. As per outside facility, patient was found to be more altered than his baseline and was sent for further evaluation. He was earlier complaining of chest or abdominal discomfort which has now resolved. Unclear details as patient is a poor historian. No acute complaints at the time of my evaluation. History obtained with the help of ER provider and chart review. In the emergency department, patient was found to be septic and hypotensive. Nunez catheter with markedly cloudy urine and UA with UTI. Unable to obtain review of systems. Patient was given IV crystalloids and IV meropenem in the ER. Review of Systems Review of Systems: Yes Unobtainable due to mental status PMFSH Medical History Steroid dependence EDWARD (acute kidney injury) UTI (urinary tract infection) due to urinary indwelling Nunez catheter Bullous pemphigoid Decubitus ulcer of coccygeal region, stage 2 Acute hypotension Sepsis Aspiration pneumonitis Recurrent UTI (urinary tract infection) Hypotonic neurogenic bladder Lytic lesion of bone on x-ray Wound of foot Anemia Septic shock Shoulder pain Constipation Hematuria Multiple sclerosis Depression Diabetes mellitus type 2 in obese Chronic pain syndrome BPH (benign prostatic hyperplasia) Dehydration Chronic renal failure Urinary tract infection Family History Family/Other Heart attack Father Diabetes Surgical History Hx of removal of cyst Social History Household Members: Unknown / Unable to assess Household Members Other:: lives at [facility] on [address] in [place] Housing: [facility] Housing Other:: [facility] Unable to assess alcohol history related to: Unable to respond Alcohol intake: never Comment: BEDFAST Patient Tobacco Use Status: Former Tobacco user Cigarette Packs Per Day: 1 Smoked in Last 30 Days: No Use of substances other than those prescribed or required for medical reasons: No Advance Directives: Yes Advance Directives on File: Yes Advance Directives Date on File: 10/13/20 Do you have a plan to hurt others: No Plan service: Yes Current occupational status: retired Meds Allergies Allergy/AdvReac Type Severity Reaction Status Date / Time Benzodiazepines Allergy Unknown UNKNOWN Verified 07/10/25 16:36 (BENZODIAZEPINES) dalfampridine (From AMPYRA) Allergy Unknown UNKNOWN Verified 07/10/25 16:36 duloxetine (From CYMBALTA) Allergy Unknown UNKNOWN Verified 07/10/25 16:36 ezetimibe (From ZETIA) Allergy Unknown UNKNOWN Verified 07/10/25 16:36 niacin (NIACIN) Allergy Unknown UNKNOWN Verified 07/10/25 16:36 pravastatin (PRAVASTATIN) Allergy Unknown UNKNOWN Verified 07/10/25 16:36 Lvhcghh-BGI-PwG Reductase Allergy Unknown UNKNOWN Verified 07/10/25 16:36 Inhibitor ([id number] REDUCTASE INHIBITOR) lorazepam (From ATIVAN) AdvReac Severe EXCESSIVE Verified 07/10/25 16:36 SEDATION doxycycline (DOXYCYCLINE) AdvReac Mild esophogeal Verified 07/10/25 16:36 iritation methylprednisolone (From AdvReac Mild heartburn Verified 07/10/25 16:36 SOLU-MEDROL) ertapenem (From INVANZ) AdvReac Unknown possible Verified 07/10/25 16:36 cause of bullous pemphigoid Home Medications ?Medication ?Instructions ?Recorded ?Confirmed ?Last Taken ?Type tramadol 50 mg tablet 50 mg PO BEDTIME PRN moderate to 10/09/20 05/28/24 Unknown History severe pain acetaminophen 325 mg tablet 650 mg PO Q4H PRN pain or fever 03/13/21 05/28/24 Unknown History rosuvastatin 10 mg tablet 10 mg PO DAILY 03/13/21 05/28/24 Unknown History Held on 06/11/24. Instructions: Resume on 06/14/24. guaifenesin 100 mg/5 mL oral 200 mg PO Q4H PRN Cough 05/19/21 05/28/24 Unknown History liquid (Diabetic Tussin EX) prednisone 2.5 mg tablet 2.5 mg PO DAILY 05/19/21 05/28/24 Unknown History amlodipine 10 mg tablet 10 mg PO DAILY 11/16/23 05/28/24 Unknown History bismuth subsalicylate 262 mg/15 mL 524 mg PO Q8H PRN UPSET 11/16/23 05/28/24 Unknown History oral suspension (Pepto-Bismol) STOMACH/NAUSEA ceramides 1,3,6-II (CeraVe topical 1 appl topical BID Dry Skin 11/16/23 05/28/24 Unknown History cream) docusate sodium 100 mg capsule 100 mg PO BID 11/16/23 05/28/24 Unknown History (Colace) famotidine 20 mg tablet 20 mg PO BID 11/16/23 05/28/24 Unknown History folic acid 1 mg tablet 1 mg PO SUTUWETHFRSA 11/16/23 05/28/24 Unknown History insulin glargine-yfgn 100 unit/mL 5 unit subcut BEDTIME 11/16/23 05/28/24 Unknown History subcutaneous solution lactulose 10 gram/15 mL oral 30 ml PO DAILY 11/16/23 05/28/24 Unknown History solution (Enulose) melatonin 5 mg tablet 5 mg PO BEDTIME PRN Insomnia 11/16/23 05/28/24 Unknown History polyethylene glycol 3350 17 17 g PO DAILY 11/16/23 05/28/24 Unknown History gram/dose oral powder (Miralax) methotrexate sodium 2.5 mg tablet 15 mg PO MO 02/25/24 05/28/24 Unknown History bisacodyl 5 mg tablet 5 mg PO DAILY PRN Constipation 03/31/24 05/28/24 Unknown History aspirin 81 mg tablet,delayed 81 mg PO DAILY 04/23/24 05/28/24 Unknown History release bisacodyl 10 mg rectal suppository 10 mg OK DAILY PRN Constipation 04/23/24 05/28/24 Unknown History bisacodyl 10 mg rectal suppository 10 mg OK Q3D 04/23/24 05/28/24 Unknown History guaifenesin 600 mg tablet, 600 mg PO Q12H PRN Cold Symptoms 04/23/24 05/28/24 Unknown History extended release 12 hr (Mucinex) sodium phosphates 19 gram-7 118 ml OK DAILY PRN Constipation 04/23/24 05/28/24 Unknown History gram/118 mL enema (Fleet Enema) triamcinolone acetonide 0.1 % 1 appl topical BID 05/28/24 05/28/24 Unknown History topical cream Physical Exam Vital Signs and Narrative: Vital Signs: Last Vital Signs Temp 97.4 F 07/10/25 22:04 Pulse 109 H 07/10/25 22:04 Resp 17 07/10/25 22:04 BP 122/62 07/10/25 22:04 Pulse Ox 93 07/10/25 22:04 O2 Del Method Room Air 07/10/25 22:04 BMI result Body Mass Index 25.1 Const: Other: Middle-aged ill-appearing male lying in bed in no distress Neck supple, no JVD Regular rate and rhythm, S1-S2 heard Regular breath sounds bilaterally, no wheezing or crackles appreciated Abdomen soft nontender, no guarding, no rigidity Patient is awake, alert but disoriented to place, time and person ; no focal motor deficit Psych: Normal mood Erythematous blisters on extremities Results Labs 07/10/25 16:21 07/10/25 16:21 Labs: Laboratory Results - last 24 hr 07/10/25 07/10/25 07/10/25 16:21 16:37 20:00 MCV 94.9 MCH 32.9 MCHC 34.6 RDW 16.0 Plt Count 130 L D MPV 9.0 L Immature Gran % (Auto) Cancelled Neut % (Auto) Cancelled Lymph % (Auto) Cancelled Alpine % (Auto) Cancelled Eos % (Auto) Cancelled Baso % (Auto) Cancelled Lymph # (Auto) Cancelled Alpine # (Auto) Cancelled Eos # (Auto) Cancelled Baso # (Auto) Cancelled Abs Immat Gran (auto) Cancelled Absolute Neuts (auto) Cancelled Absolute Nucleated RBC 0.020 H Nucleated RBC % (auto) 0.1 Neutrophils % (Manual) 93 H Band Neutrophils % 3 Lymphocytes % (Manual) 1 L Monocytes % (Manual) 1 L Basophils % (Manual) 1 Metamyelocytes % 1 Abs Neuts (Manual) 25.2 H Lymphocytes # (Manual) 0.3 L Monocytes # (Manual) 0.3 Basophils # (Manual) 0.3 H Metamyelocytes # 0.3 Toxic Vacuolation PRESENT Platelet Estimate SLIGHTLY DECREASED Plt Morphology Comment NORMAL RBC Morphology NORMAL PT 11.2 INR 1.0 Anion Gap 17 Estim Creat Clear Calc 39.7 Estimated GFR 40 Random Glucose 101 Lactic Acid 2.6 H* Lactic Acid F/U @ 2Hr Calcium 8.3 L Magnesium 1.8 Total Bilirubin 1.0 AST 33 ALT 17 Alkaline Phosphatase 66 Total Protein 6.1 L Albumin 3.1 L Influenza Type A (PCR) NEGATIVE Influenza Type B (PCR) NEGATIVE RSV RNA Qual (PCR) NEGATIVE SARS-CoV-2 RNA (RT-PCR) NEGATIVE 07/10/25 22:10 MCV MCH MCHC RDW Plt Count MPV Immature Gran % (Auto) Neut % (Auto) Lymph % (Auto) Alpine % (Auto) Eos % (Auto) Baso % (Auto) Lymph # (Auto) Alpine # (Auto) Eos # (Auto) Baso # (Auto) Abs Immat Gran (auto) Absolute Neuts (auto) Absolute Nucleated RBC Nucleated RBC % (auto) Neutrophils % (Manual) Band Neutrophils % Lymphocytes % (Manual) Monocytes % (Manual) Basophils % (Manual) Metamyelocytes % Abs Neuts (Manual) Lymphocytes # (Manual) Monocytes # (Manual) Basophils # (Manual) Metamyelocytes # Toxic Vacuolation Platelet Estimate Plt Morphology Comment RBC Morphology PT INR Anion Gap Estim Creat Clear Calc Estimated GFR Random Glucose Lactic Acid Lactic Acid F/U @ 2Hr 2.0 Calcium Magnesium Total Bilirubin AST ALT Alkaline Phosphatase Total Protein Albumin Influenza Type A (PCR) Influenza Type B (PCR) RSV RNA Qual (PCR) SARS-CoV-2 RNA (RT-PCR) Assessment and Plan (1) Acute UTI (urinary tract infection): Status: Acute (2) Acute metabolic encephalopathy: Status: Acute Plan This has a 80-year-old chronically bed bound male, resident of [facility] with pertinent history of bullous pemphigoid, MS, chronic Nunez, mood disorder, insulin-dependent type 2 diabetes mellitus, mixed hyperlipidemia, hypertension who was sent to the emergency department for evaluation of altered mentation. #. Acute metabolic encephalopathy and severe sepsis due to acute complicated UTI: Resuscitated with IV crystalloids. Lactic acid and blood culture obtained. Reviewed previous urine culture with ESBL E coli and Pseudomonas. Initiated IV meropenem. Repeat urine culture pending. NPO until mentation improves #. Replacement of Nunez catheter: Nunez catheter was found to be infected in the ER and unable to be replaced by multiple nurses/ ER provider. Urology was consulted in the ER who will evaluate the patient in a.m. to place a new Nunez catheter. #. Acute kidney injury stage I: Monitor with crystalloid resuscitation. Avoid nephrotoxins #. Anemia of chronic disease: Hemoglobin above transfusion threshold #. Bullous pemphigoid: On methotrexate. Resume once able to take p.o. #. Mixed hyperlipidemia: On statin #. Hypertension: Hold amlodipine and Coreg in the setting of sepsis #. Insulin-dependent type 2 diabetes mellitus: Initiating Accu-Cheks with sliding scale insulin every 6 hours while NPO Med rec pending DVT prophylaxis: Lovenox Full code. MOLST form present on admission Admit as inpatient and will require two night minimum hospital stay for IV antibiotics (as above), which is not possible in a lesser acute setting. Quality Stroke Does the patient have a stroke diagnosis?: No VTE Prior VTE?: No VTE Risk Level:: Medical - moderate - high VTE Device Contraindication: Treatment Not Indicated VTE Drug Contraindication: N/A - Med Ordered
--- NOTE | 2025-07-11 00:19 | PC.NURSE ---
small amount of urine exited urethra, incontinent and unmeasured, approx 30-40 mL or less after this, I scanned 307 mL in his bladder at 0015
--- NOTE | 2025-07-11 00:57 | PC.NURSE ---
fully cleaned up. stage II to sacrum present on arrival. foam applied. bony prominences pillow'd. call imlligan in reach. endorsing nausea, no vomiting. hospitalist aware.
[2025-07-11 02:00] LABS: Glucose, Whole Blood 127 mg/dL (60-115)
--- NOTE | 2025-07-11 03:09 | PC.NURSE ---
c/o substernal CP. vitals stable. A+O however extremely forgetful. for example, at this time, patient has on 4 occasions yelled out for help despite being shown the call milligan, demonstrated use, and patient insisting he place the remote by his side stating he will remember this time. at 0340 now the substernal pain is described as heartburn. by pt. Isidro correa. EKG done and sent to this MD. pt swallowed tylenol, melatonin, soon to provided tums. call milligan on chest of patient at this moment, pt finally willing to keep on chest
--- NOTE | 2025-07-11 03:47 | PC.NURSE ---
changed to hospital bed, bed alarm on
[2025-07-11 04:15] VITALS: RESP 16
[2025-07-11 05:33] LABS: Hematocrit 31.6 % (42.0-52.0); Hemoglobin 10.9 g/dl (14.0-18.0); Mean Corpuscular HGB Conc 34.5 g/dl (31.0-36.0); Mean Corpuscular Hemoglobin 33.4 pg (27.0-33.0); Mean Corpuscular Volume 96.9 fL (80.0-98.0); NRBC Abs Auto 0.000 X10*3/uL (0.0-0.012); NRBC Pct Auto 0.0 /100WBC (0.0-0.2); Platelet Count 111 X10*3/uL (160-400); Red Blood Count 3.26 X10*6/uL (4.60-5.80)
[2025-07-11 05:47] LABS: Anion Gap 17 (12-20); Blood Urea Nitrogen 29 mg/dL (9-16); Calcium 8.1 mg/dL (8.4-10.2); Carbon Dioxide 19 mmol/L (22-29); Chloride 106 mmol/L (96-108); Creatinine Clr Calc Pharmacy 41.7; Estimated Glomerular Filt Rate 42; Potassium 4.2 mmol/L (3.3-5.1); Sodium 138 mmol/L (135-145)
[2025-07-11 05:51] LABS: White Blood Count 37.6 X10*3/uL (4.8-10.8)
[2025-07-11 05:56] LABS: Band Neutrophils Percent 7 % (3-5); Lymphocytes Absolute Manual 0.4 X10*3/uL (1.2-4.9); Lymphocytes Percent Manual 1 % (20-40); Monocytes Absolute Manual 1.9 X10*3/uL (0.1-1.2); Monocytes Percent Manual 5 % (2-11); Neutrophils Absolute Manual 35.3 X10*3/uL (2.0-8.3); Neutrophils Percent Manual 87 % (45-73)
[2025-07-11 05:57] LABS: RBC Morphology NORMAL; Toxic Vacuolation PRESENT
[2025-07-11] MEDS: Lidocaine HCl Viscous 2 % 15 ML SOLUTION MUCOUS MEM (06:28)
[2025-07-11 06:36] LABS: Glucose, Whole Blood 155 mg/dL (60-115)
[2025-07-11 07:31] LABS: Glucose, Whole Blood 147 mg/dL (60-115)
[2025-07-11 07:45] VITALS: BP 133/65; PULSE 104; RESP 22; TEMP 36.5; O2SAT 97
--- NOTE | 2025-07-11 08:27 | PC.NURSE ---
pt continues to report chest pain after multiple PRN medications administered by previous shift. he states his chest hurts and wont stop. Dr. Sykes notified and is aware. no new orders at this time.
[2025-07-11] MEDS: 0.9 % Sodium Chloride Flush 3 ML SYRINGE IVFLUSH ×2 (09:39→13:59)
--- NOTE | 2025-07-11 10:30 | ECG_ITS ---
Test Reason : CHEST PAIN Blood Pressure : */* mmHG Vent. Rate : 104 BPM Atrial Rate : 104 BPM P-R Int : 158 ms QRS Dur : 100 ms QT Int : 352 ms P-R-T Axes : 47 40 171 degrees QTcB Int : [address] & T wave abnormality, consider inferior ischemia ST & T wave abnormality, consider anterolateral ischemia Abnormal ECG When compared with ECG of 11-Jul-2025 03:07, Premature ventricular complexes are no longer Present Referred By: Juan Sykes Electronically Signed By: Austen Castaneda
--- NOTE | 2025-07-11 10:30 | PC.NURSE ---
multiple attempts to reach provider, tiger texts READ, no new orders. just received verbal order for repeat troponin and EKG
[2025-07-11 10:40] VITALS: BP 171/57; PULSE 101; RESP 16; O2SAT 95
--- NOTE | 2025-07-11 12:03 | MHC.CM.PN ---
pt is a ltc resident at [facility] where he will return when dcd
[2025-07-11 13:01] LABS: Troponin-I High Sensitivity 15.1 ng/L (<3.5-35.0)
--- NOTE | 2025-07-11 13:35 | PM.UROCN ---
History of Present Illness Consult details Consult date: 07/11/25 Narrative: CC: Retention 80-year-old male History of MS chronically bed-bound, bullous pemphigoid on chronic steroids, with chronic bilateral lower extremity weakness, BPH, depression, type 2 diabetes mellitus on insulin, crohns, chronic UTIs (pansensitve proteus) with indwelling Nunez catheter resident of nursing facility Has been seen multiple times by Urology. Prior recommendation includes suprapubic tube placement. Failed to attend outpatient evaluation. Referred from outside nursing facility after he was found to have altered mental status from baseline. Is poor historian to begin with. Found to be septic and hypotensive at presentation to emergency room. Nunez catheter with markedly cloudy urine. Catheter removed. Emergency room staff unable to place Nunez catheter. Urology consult. Nursing staff have tried to place Nunez multiple times Nunez catheter placed by urologic staff member. Unable to place catheter using standard technique. Angled Glidewire placed and [place] tip 16 Divehi placed over the wire. Good efflux of urine. See nursing note for description of total output. Difficult Nunez Placement CPT 70220 Recommendation unchanged. Would benefit from outpatient suprapubic tube placement and significant bowel regimen. Review of Systems Constitutional: Constitutional: Reports as per HPI and Reports no additional constitutional complaints Cardiovascular: Cardiovascular: Reports as per HPI and Reports no additional cardiovascular complaints Respiratory: Respiratory: Reports as per HPI and Reports no additional respiratory complaints Gastrointestinal: Gastrointestinal: Reports as per HPI and Reports no additional gastrointestinal complaints Genitourinary: Genitourinary: Reports as per HPI Musculoskeletal: Musculoskeletal: Reports no additional musculoskeletal complaints and Reports as per HPI Neurologic: Reports system reviewed and no additional complaints, except as documented and Reports as per HPI [facility] Past Medical History Medical History Steroid dependence EDWARD (acute kidney injury) UTI (urinary tract infection) due to urinary indwelling Nunez catheter Bullous pemphigoid Decubitus ulcer of coccygeal region, stage 2 Acute hypotension Sepsis Aspiration pneumonitis Recurrent UTI (urinary tract infection) Hypotonic neurogenic bladder Lytic lesion of bone on x-ray Wound of foot Anemia Septic shock Shoulder pain Constipation Hematuria Multiple sclerosis Depression Diabetes mellitus type 2 in obese Chronic pain syndrome BPH (benign prostatic hyperplasia) Dehydration Chronic renal failure Urinary tract infection Family History Family History Family/Other Heart attack Father Diabetes Surgical History Surgical History Hx of removal of cyst Social History Social History Household Members: Unknown / Unable to assess Household Members Other:: lives at [facility] on [address] in [place] Housing: Halfway Housing Other:: [facility] Unable to assess alcohol history related to: Unable to respond Alcohol intake: never Comment: BEDFAST Patient Tobacco Use Status: Former Tobacco user Cigarette Packs Per Day: 1 Smoked in Last 30 Days: No Use of substances other than those prescribed or required for medical reasons: No Advance Directives: Yes Advance Directives on File: Yes Advance Directives Date on File: 10/13/20 Do you have a plan to hurt others: No Plan service: Yes Current occupational status: retired Meds Allergies Allergy/AdvReac Type Severity Reaction Status Date / Time Benzodiazepines Allergy Unknown UNKNOWN Verified 07/10/25 16:36 (BENZODIAZEPINES) dalfampridine (From AMPYRA) Allergy Unknown UNKNOWN Verified 07/10/25 16:36 duloxetine (From CYMBALTA) Allergy Unknown UNKNOWN Verified 07/10/25 16:36 ezetimibe (From ZETIA) Allergy Unknown UNKNOWN Verified 07/10/25 16:36 niacin (NIACIN) Allergy Unknown UNKNOWN Verified 07/10/25 16:36 pravastatin (PRAVASTATIN) Allergy Unknown UNKNOWN Verified 07/10/25 16:36 Zunepib-[id number]-[id number] Reductase Allergy Unknown UNKNOWN Verified 07/10/25 16:36 Inhibitor ([id number] REDUCTASE INHIBITOR) lorazepam (From ATIVAN) AdvReac Severe EXCESSIVE Verified 07/10/25 16:36 SEDATION doxycycline (DOXYCYCLINE) AdvReac Mild esophogeal Verified 07/10/25 16:36 iritation methylprednisolone (From AdvReac Mild heartburn Verified 07/10/25 16:36 SOLU-MEDROL) ertapenem (From INVANZ) AdvReac Unknown possible Verified 07/10/25 16:36 cause of bullous pemphigoid Active Medications: Current Medications Acetaminophen (Acetaminophen 325 Mg Tablet) 650 mg PO Q6H PRN PRN Reason: Pain, Mild 1-3,fever,headache Last Admin: 07/11/25 03:15 Dose: 650 mg Calcium Carbonate (Calcium Carbonate 750 Mg Tab.Chew) 750 mg PO Q4H PRN PRN Reason: Heartburn Last Admin: 07/11/25 05:45 Dose: 750 mg Dextrose (Dextrose 50 % 25 Gm/50 Ml Syringe) 25 gm IVPUSH Q15M PRN; Protocol PRN Reason: per Hypoglycemia Standing Ord. Enoxaparin Sodium (Enoxaparin Sodium 40 Mg/0.4 Ml Syringe) 40 mg SUBCUT Q24H [facility]IC[facility] Last Admin: 07/11/25 01:52 Dose: 40 mg Glucose (Glucose Gel 15 Gm Gel..Gram.) 15 gm PO Q15M PRN; Protocol PRN Reason: per Hypoglycemia Standing Ord. Insulin Human Lispro (Insulin Lispro 100 Unit/Ml 3 Ml Vial) 0 unit SUBCUT Q6H WICHO; Protocol Last Admin: 07/11/25 06:38 Dose: 2 unit Lidocaine HCl (Lidocaine Hcl Viscous 2 % 15 Ml Solution) 15 ml MUCOUS MEM Q3H PRN PRN Reason: Dyspepsia Last Admin: 07/11/25 06:28 Dose: 15 ml Magnesium Hydroxide (Milk Of Magnesia 30 Ml Oral.Susp) 30 ml PO DAILY PRN PRN Reason: Constipation Melatonin (Melatonin 3 Mg Tablet) 6 mg PO BEDTIME PRN PRN Reason: Insomnia Last Admin: 07/11/25 03:45 Dose: 6 mg Meropenem (Meropenem 1 Gm Vial) 1 gm IVPUSH Q12H [facility] Ondansetron HCl (Ondansetron Hcl 4 Mg/2 Ml Vial) 4 mg IVPUSH Q8H PRN PRN Reason: Nausea and Vomiting Last Admin: 07/11/25 01:52 Dose: 4 mg Sodium Chloride (0.9 % Sodium Chloride Flush 3 Ml Syringe) 3 ml IVFLUSH QSHIFT [facility] Last Admin: 07/11/25 09:39 Dose: 3 ml Home Medications ?Medication ?Instructions ?Recorded ?Confirmed ?Last Taken ?Type tramadol 50 mg tablet 50 mg PO BEDTIME PRN moderate to 10/09/20 05/28/24 Unknown History severe pain acetaminophen 325 mg tablet 650 mg PO Q4H PRN pain or fever 03/13/21 05/28/24 Unknown History rosuvastatin 10 mg tablet 10 mg PO DAILY 03/13/21 05/28/24 Unknown History Held on 06/11/24. Instructions: Resume on 06/14/24. guaifenesin 100 mg/5 mL oral 200 mg PO Q4H PRN Cough 05/19/21 05/28/24 Unknown History liquid (Diabetic Tussin EX) prednisone 2.5 mg tablet 2.5 mg PO DAILY 05/19/21 05/28/24 Unknown History amlodipine 10 mg tablet 10 mg PO DAILY 11/16/23 05/28/24 Unknown History bismuth subsalicylate 262 mg/15 mL 524 mg PO Q8H PRN UPSET 11/16/23 05/28/24 Unknown History oral suspension (Pepto-Bismol) STOMACH/NAUSEA ceramides 1,3,6-II (CeraVe topical 1 appl topical BID Dry Skin 11/16/23 05/28/24 Unknown History cream) docusate sodium 100 mg capsule 100 mg PO BID 11/16/23 05/28/24 Unknown History (Colace) famotidine 20 mg tablet 20 mg PO BID 11/16/23 05/28/24 Unknown History folic acid 1 mg tablet 1 mg PO SUTUWETHFRSA 11/16/23 05/28/24 Unknown History insulin glargine-yfgn 100 unit/mL 5 unit subcut BEDTIME 11/16/23 05/28/24 Unknown History subcutaneous solution lactulose 10 gram/15 mL oral 30 ml PO DAILY 11/16/23 05/28/24 Unknown History solution (Enulose) melatonin 5 mg tablet 5 mg PO BEDTIME PRN Insomnia 11/16/23 05/28/24 Unknown History polyethylene glycol 3350 17 17 g PO DAILY 11/16/23 05/28/24 Unknown History gram/dose oral powder (Miralax) methotrexate sodium 2.5 mg tablet 15 mg PO MO 02/25/24 05/28/24 Unknown History bisacodyl 5 mg tablet 5 mg PO DAILY PRN Constipation 03/31/24 05/28/24 Unknown History aspirin 81 mg tablet,delayed 81 mg PO DAILY 04/23/24 05/28/24 Unknown History release bisacodyl 10 mg rectal suppository 10 mg CO DAILY PRN Constipation 04/23/24 05/28/24 Unknown History bisacodyl 10 mg rectal suppository 10 mg CO Q3D 04/23/24 05/28/24 Unknown History guaifenesin 600 mg tablet, 600 mg PO Q12H PRN Cold Symptoms 04/23/24 05/28/24 Unknown History extended release 12 hr (Mucinex) sodium phosphates 19 gram-7 118 ml CO DAILY PRN Constipation 04/23/24 05/28/24 Unknown History gram/118 mL enema (Fleet Enema) insulin lispro 100 unit/mL See Protocol subcut BID 07/11/25 07/11/25 Unknown History subcutaneous solution (Admelog U-100 Insulin lispro) Physical Exam Vital Signs: Vital Signs: Last Vital Signs Temp 97.7 F 07/11/25 07:45 Pulse 101 H 07/11/25 10:40 Resp 16 07/11/25 10:40 BP 171/57 H 07/11/25 10:40 Pulse Ox 95 07/11/25 10:40 O2 Del Method Room Air 07/11/25 10:40 BMI result Body Mass Index 25.1 Const: General: cooperative, healthy appearing, comfortable and no acute distress Orientation/consciousness: patient oriented x3 HEENT: Face and sinus: Yes normal facial exam Mouth: moist mucous membranes Neck: Neck: Yes normal visual inspection, Yes full ROM and Yes trachea midline Chest: Chest palpation & inspection: normal inspection of the chest Resp: Effort & Inspection: normal respiratory effort, able to speak in complete sentences and no respiratory distress GI: Inspection: Yes normal to inspection Back/Spine/Pelvis: Cervical Spine: normal cervical lordosis Thoracic/Lumbar Spine: thoracic and lumbar spine normal to inspection Skin: General skin exam: no rashes or lesions noted Neuro: General: patient oriented x3, tone normal and moves all extremities Extrem: General: Yes normal to inspection and Yes capillary refill normal Results Labs 07/11/25 05:23 07/11/25 05:23 Labs: Abnormal lab results 07/10/25 07/10/25 07/11/25 Range/Units 16:21 20:00 01:56 WBC 26.2 H (4.8-10.8) X10*3/uL RBC 3.56 L D (4.60-5.80) X10*6/uL Hgb 11.7 L D (14.0-18.0) g/dl Hct 33.8 L D (42.0-52.0) % MCH (27.0-33.0) pg RDW (11.0-16.0) % Plt Count 130 L D (160-400) X10*3/uL MPV 9.0 L (9.4-12.4) fL Absolute Nucleated RBC 0.020 H (0.0-0.012) X10*3/uL Neutrophils % (Manual) 93 H (45-73) % Band Neutrophils % (3-5) % Lymphocytes % (Manual) 1 L (20-40) % Monocytes % (Manual) 1 L (2-11) % Abs Neuts (Manual) 25.2 H (2.0-8.3) X10*3/uL Lymphocytes # (Manual) 0.3 L (1.2-4.9) X10*3/uL Monocytes # (Manual) (0.1-1.2) X10*3/uL Basophils # (Manual) 0.3 H (0.0-0.2) X10*3/uL Carbon Dioxide 20 L (22-29) mmol/L BUN 29 H (9-16) mg/dL Creatinine 1.68 H (0.5-1.4) mg/dL POC Glucose 127 H (60-115) mg/dL Random Glucose (60-115) mg/dL Lactic Acid 2.6 H* (0.5-2.0) mmol/L Calcium 8.3 L (8.4-10.2) mg/dL Total Protein 6.1 L (6.5-8.0) g/dL Albumin 3.1 L (3.5-5.0) g/dL 07/11/25 07/11/25 07/11/25 Range/Units 05:23 06:33 07:21 WBC 37.6 H* (4.8-10.8) X10*3/uL RBC 3.26 L (4.60-5.80) X10*6/uL Hgb 10.9 L (14.0-18.0) g/dl Hct 31.6 L (42.0-52.0) % MCH 33.4 H (27.0-33.0) pg RDW 16.6 H (11.0-16.0) % Plt Count 111 L (160-400) X10*3/uL MPV 9.2 L (9.4-12.4) fL Absolute Nucleated RBC (0.0-0.012) X10*3/uL Neutrophils % (Manual) 87 H (45-73) % Band Neutrophils % 7 H (3-5) % Lymphocytes % (Manual) 1 L (20-40) % Monocytes % (Manual) (2-11) % Abs Neuts (Manual) 35.3 H (2.0-8.3) X10*3/uL Lymphocytes # (Manual) 0.4 L (1.2-4.9) X10*3/uL Monocytes # (Manual) 1.9 H (0.1-1.2) X10*3/uL Basophils # (Manual) (0.0-0.2) X10*3/uL Carbon Dioxide 19 L (22-29) mmol/L BUN 29 H (9-16) mg/dL Creatinine 1.60 H (0.5-1.4) mg/dL POC Glucose 155 H 147 H (60-115) mg/dL Random Glucose 151 H (60-115) mg/dL Lactic Acid (0.5-2.0) mmol/L Calcium 8.1 L (8.4-10.2) mg/dL Total Protein (6.5-8.0) g/dL Albumin (3.5-5.0) g/dL Short CBC 07/10/25 07/11/25 Range/Units 16:21 05:23 WBC 26.2 H 37.6 H* (4.8-10.8) X10*3/uL Hgb 11.7 L D 10.9 L (14.0-18.0) g/dl Hct 33.8 L D 31.6 L (42.0-52.0) % Plt Count 130 L D 111 L (160-400) X10*3/uL BMP 07/10/25 07/11/25 16:21 05:23 Sodium 135 138 Potassium 4.2 4.2 Chloride 102 106 Carbon Dioxide 20 L 19 L BUN 29 H 29 H Creatinine 1.68 H 1.60 H Calcium 8.3 L 8.1 L Liver Function 07/10/25 Range/Units 16:21 Total Bilirubin 1.0 (0.0-1.0) mg/dL AST 33 (5-37) U/L ALT 17 (0-40) U/L Alkaline Phosphatase 66 (39-117) U/L Albumin 3.1 L (3.5-5.0) g/dL All other labs normal. Assessment and Plan (1) Chronic indwelling Nunez catheter: Status: Acute (2) Acute UTI (urinary tract infection): Status: Acute Plan Nunez catheter exchange Antibiotic coverage Procedures Date of Service Date of Service: 07/11/25
--- NOTE | 2025-07-11 13:46 | PHA.MEDREC ---
Pharmacy Consult ? Medication Reconciliation Pharmacy has completed the medication reconciliation, used med list from [facility] on [address].
[2025-07-11 14:05] VITALS: BP 135/67; PULSE 101; RESP 18; TEMP 36.4; O2SAT 96
[2025-07-11 14:11] LABS: Glucose, Whole Blood 145 mg/dL (60-115)
--- NOTE | 2025-07-11 14:51 | HO.PM.IMPN ---
Subjective Subjective Date of Service: 07/11/25 Interval History: [facility] on [facility] w[facility] are very high, no fever, slighty tachy Physical Exam Vital Signs: Vital Signs: Last Vital Signs Temp 97.6 F 07/11/25 14:05 Pulse 101 H 07/11/25 14:05 Resp 18 07/11/25 14:05 BP 135/67 07/11/25 14:05 Pulse Ox 96 07/11/25 14:05 O2 Del Method Room Air 07/11/25 14:05 BMI result Body Mass Index 25.1 Const: Other: Middle-aged ill-appearing male lying in bed in no distress Neck supple, no JVD Regular rate and rhythm, S1-S2 heard Regular breath sounds bilaterally, no wheezing or crackles appreciated Abdomen soft nontender, no guarding, no rigidity Patient is awake, alert but disoriented to place, time and person ; no focal motor deficit Psych: Normal mood Erythematous blisters on extremities Objective Data Active Medications Acetaminophen (Acetaminophen 325 Mg Tablet) 650 mg PO Q6H PRN PRN Reason: Pain, Mild 1-3,fever,headache Last Admin: 07/11/25 03:15 Dose: 650 mg Documented By: DOROTHEA Calcium Carbonate (Calcium Carbonate 750 Mg Tab.Chew) 750 mg PO Q4H PRN PRN Reason: Heartburn Last Admin: 07/11/25 05:45 Dose: 750 mg Documented By: DOROTHEA Comments: approved admin Dextrose (Dextrose 50 % 25 Gm/50 Ml Syringe) 25 gm IVPUSH Q15M PRN; Protocol PRN Reason: per Hypoglycemia Standing Ord. Enoxaparin Sodium (Enoxaparin Sodium 40 Mg/0.4 Ml Syringe) 40 mg SUBCUT Q24H [facility]ICHO Last Admin: 07/11/25 01:52 Dose: 40 mg Documented By: DOROTHEA Glucose (Glucose Gel 15 Gm Gel..Gram.) 15 gm PO Q15M PRN; Protocol PRN Reason: per Hypoglycemia Standing Ord. Insulin Human Lispro (Insulin Lispro 100 Unit/Ml 3 Ml Vial) 0 unit SUBCUT Q6H WICHO; Protocol Last Admin: 07/11/25 14:04 Dose: Not Given Documented By: TACO Non-Admin Reason: No Insulin Coverage Lidocaine HCl (Lidocaine Hcl Viscous 2 % 15 Ml Solution) 15 ml MUCOUS MEM Q3H PRN PRN Reason: Dyspepsia Last Admin: 07/11/25 06:28 Dose: 15 ml Documented By: DOROTHEA Magnesium Hydroxide (Milk Of Magnesia 30 Ml Oral.Susp) 30 ml PO DAILY PRN PRN Reason: Constipation Melatonin (Melatonin 3 Mg Tablet) 6 mg PO BEDTIME PRN PRN Reason: Insomnia Last Admin: 07/11/25 03:45 Dose: 6 mg Documented By: DOROTHEA Meropenem (Meropenem 1 Gm Vial) 1 gm IVPUSH Q12H [facility] Last Admin: 07/11/25 13:59 Dose: 1 gm Documented By: TACO Ondansetron HCl (Ondansetron Hcl 4 Mg/2 Ml Vial) 4 mg IVPUSH Q8H PRN PRN Reason: Nausea and Vomiting Last Admin: 07/11/25 14:01 Dose: 4 mg Documented By: TACO Sodium Chloride (0.9 % Sodium Chloride Flush 3 Ml Syringe) 3 ml IVFLUSH QSHIFT [facility] Last Admin: 07/11/25 13:59 Dose: 3 ml Documented By: TACO Labs 07/11/25 05:23 07/11/25 05:23 Labs: Laboratory Results - last 24 hr 07/10/25 07/10/25 07/10/25 16:21 16:37 20:00 MCV 94.9 MCH 32.9 MCHC 34.6 RDW 16.0 Plt Count 130 L D MPV 9.0 L Immature Gran % (Auto) Cancelled Neut % (Auto) Cancelled Lymph % (Auto) Cancelled [place] % (Auto) Cancelled Eos % (Auto) Cancelled Baso % (Auto) Cancelled Lymph # (Auto) Cancelled [place] # (Auto) Cancelled Eos # (Auto) Cancelled Baso # (Auto) Cancelled Abs Immat Gran (auto) Cancelled Absolute Neuts (auto) Cancelled Absolute Nucleated RBC 0.020 H Nucleated RBC % (auto) 0.1 Neutrophils % (Manual) 93 H Band Neutrophils % 3 Lymphocytes % (Manual) 1 L Monocytes % (Manual) 1 L Basophils % (Manual) 1 Metamyelocytes % 1 Abs Neuts (Manual) 25.2 H Lymphocytes # (Manual) 0.3 L Monocytes # (Manual) 0.3 Basophils # (Manual) 0.3 H Metamyelocytes # 0.3 Toxic Vacuolation PRESENT Platelet Estimate SLIGHTLY DECREASED Plt Morphology Comment NORMAL RBC Morphology NORMAL PT 11.2 INR 1.0 Anion Gap 17 Estim Creat Clear Calc 39.7 Estimated GFR 40 POC Glucose Random Glucose 101 Lactic Acid 2.6 H* Lactic Acid F/U @ 2Hr Calcium 8.3 L Magnesium 1.8 Total Bilirubin 1.0 AST 33 ALT 17 Alkaline Phosphatase 66 Total Protein 6.1 L Albumin 3.1 L Influenza Type A (PCR) NEGATIVE Influenza Type B (PCR) NEGATIVE RSV RNA Qual (PCR) NEGATIVE SARS-CoV-2 RNA (RT-PCR) NEGATIVE 07/10/25 07/11/25 07/11/25 22:10 01:56 05:23 MCV 96.9 MCH 33.4 H MCHC 34.5 RDW 16.6 H Plt Count 111 L MPV 9.2 L Immature Gran % (Auto) Cancelled Neut % (Auto) Cancelled Lymph % (Auto) Cancelled [place] % (Auto) Cancelled Eos % (Auto) Cancelled Baso % (Auto) Cancelled Lymph # (Auto) Cancelled [place] # (Auto) Cancelled Eos # (Auto) Cancelled Baso # (Auto) Cancelled Abs Immat Gran (auto) Cancelled Absolute Neuts (auto) Cancelled Absolute Nucleated RBC 0.000 Nucleated RBC % (auto) 0.0 Neutrophils % (Manual) 87 H Band Neutrophils % 7 H Lymphocytes % (Manual) 1 L Monocytes % (Manual) 5 Basophils % (Manual) Metamyelocytes % Abs Neuts (Manual) 35.3 H Lymphocytes # (Manual) 0.4 L Monocytes # (Manual) 1.9 H Basophils # (Manual) Metamyelocytes # Toxic Vacuolation PRESENT Platelet Estimate SLIGHTLY DECREASED Plt Morphology Comment NORMAL RBC Morphology NORMAL PT INR Anion Gap 17 Estim Creat Clear Calc 41.7 Estimated GFR 42 POC Glucose 127 H Random Glucose 151 H Lactic Acid Lactic Acid F/U @ 2Hr 2.0 Calcium 8.1 L Magnesium Total Bilirubin AST ALT Alkaline Phosphatase Total Protein Albumin Influenza Type A (PCR) Influenza Type B (PCR) RSV RNA Qual (PCR) SARS-CoV-2 RNA (RT-PCR) 07/11/25 07/11/25 07/11/25 06:33 07:21 13:58 MCV MCH MCHC RDW Plt Count MPV Immature Gran % (Auto) Neut % (Auto) Lymph % (Auto) [place] % (Auto) Eos % (Auto) Baso % (Auto) Lymph # (Auto) [place] # (Auto) Eos # (Auto) Baso # (Auto) Abs Immat Gran (auto) Absolute Neuts (auto) Absolute Nucleated RBC Nucleated RBC % (auto) Neutrophils % (Manual) Band Neutrophils % Lymphocytes % (Manual) Monocytes % (Manual) Basophils % (Manual) Metamyelocytes % Abs Neuts (Manual) Lymphocytes # (Manual) Monocytes # (Manual) Basophils # (Manual) Metamyelocytes # Toxic Vacuolation Platelet Estimate Plt Morphology Comment RBC Morphology PT INR Anion Gap Estim Creat Clear Calc Estimated GFR POC Glucose 155 H 147 H 145 H Random Glucose Lactic Acid Lactic Acid F/U @ 2Hr Calcium Magnesium Total Bilirubin AST ALT Alkaline Phosphatase Total Protein Albumin Influenza Type A (PCR) Influenza Type B (PCR) RSV RNA Qual (PCR) SARS-CoV-2 RNA (RT-PCR) Assessment and Plan (1) Chronic indwelling Carty catheter: Status: Acute (2) Neurogenic bladder: Status: Acute Plan 80-year-old chronically bed bound male, resident of [facility] with pertinent history of bullous pemphigoid, MS, chronic Carty, mood disorder, insulin-dependent type 2 diabetes mellitus, mixed hyperlipidemia, hypertension who was sent to the emergency department for evaluation of altered mentation. Acute metabolic encephalopathy and severe sepsis due to acute complicated UTI: Resuscitated with IV crystalloids. Lactic acid and blood culture obtained. Reviewed previous urine culture with ESBL E coli and Pseudomonas. continue IV meropenem. Repeat urine culture pending. Replacement of Carty catheter: Carty catheter was found to be infected and removed, uro attempeted reinsertion with difficulty, so now without carty, and had some bleeding issues at a result Acute kidney injury stage I: Monitor with crystalloid resuscitation. Avoid nephrotoxins Anemia of chronic disease: Hemoglobin above transfusion threshold Bullous pemphigoid: On methotrexate. Resume mixed hyperlipidemia: On statin Hypertension: Hold amlodipine and Coreg in the setting of sepsis Insulin-dependent type 2 diabetes mellitus: Sliding scale insulin idabetic diet DVT prophylaxis: Lovenox Full code. MOLST form present on admission Admit as inpatient and will require two night minimum hospital stay for IV antibiotics (as above), which is not possible in a lesser acute setting. Quality Stroke Does the patient have a stroke diagnosis?: No VTE Prior VTE?: No VTE Risk Level:: Medical - moderate - high VTE Device Contraindication: Treatment Not Indicated VTE Drug Contraindication: N/A - Med Ordered
[2025-07-11 14:56] VITALS: BP 159/72; PULSE 104; RESP 16; TEMP 36.3; O2SAT 96
[2025-07-11 16:19] LABS: Glucose, Whole Blood 140 mg/dL (60-115)
[2025-07-11 19:24] VITALS: BP 102/59; PULSE 104; RESP 17; TEMP 36.3; O2SAT 95
[2025-07-11 20:18] LABS: Glucose, Whole Blood 134 mg/dL (60-115)
[2025-07-11] MEDS: vancomycin/NS 2,000 MG/500 ML PLAST..BAG 250 MG IV (22:09)
--- NOTE | 2025-07-12 | ECG_ITS ---
Test Reason : TACHYCARDIA Blood Pressure : */* mmHG Vent. Rate : 108 BPM Atrial Rate : 108 BPM P-R Int : 144 ms QRS Dur : 102 ms QT Int : 368 ms P-R-T Axes : 56 40 258 degrees QTcB Int : 493 ms Sinus tachycardia with frequent Premature ventricular complexes artifact in tracing nonspecific ST changes Abnormal ECG When compared with ECG of 11-Jul-2025 10:37, Premature ventricular complexes are now Present Referred By: Juan Sykes Electronically Signed By: Austen Castaneda
[2025-07-12] MEDS: 0.9 % Sodium Chloride Flush 3 ML SYRINGE IVFLUSH ×4 (00:13→23:47)
[2025-07-12 03:31] VITALS: BP 166/84; PULSE 109; RESP 20; TEMP 36.6; O2SAT 93
[2025-07-12] MEDS: chlorproMAZINE HCl 25 MG in 0.9 % Sodium Chloride 50 ML 51 MG IV (05:29)
[2025-07-12 07:41] LABS: Glucose, Whole Blood 130 mg/dL (60-115)
[2025-07-12 07:43] VITALS: BP 139/84; PULSE 119; RESP 17; TEMP 36.2; O2SAT 90
--- NOTE | 2025-07-12 07:54 | PC.NURSE ---
Addendum entered by Alyx Sarabia RN 07/12/25 16:59: Photo uploaded of drainage Original Note: Upon assessing patient at beginning of shift, patient was found to have brown emesis around mouth, on clothing and on floor. After turning patient to clean, on pad under patient's buttock red and brown drainage was noted on pad. Patient complaining of nausea and tender abdomen, semi firm assessment. Patient also foudn to be 90% on room air, 2 L applied and tachycardia. Provider [facility] notified. teletypesetter monitor ordered, delay in placing on patient due to availability.
[2025-07-12 08:00] VITALS: BP 158/74; PULSE 111; RESP 16; O2SAT 95
--- NOTE | 2025-07-12 08:00 | HO.SKINPHOTO ---
Location: Bilateral feet Bacitracin ordered. Heels elevated off bed.
[2025-07-12 08:37] VITALS: PULSE 115; RESP 18; O2SAT 95
[2025-07-12 09:40] LABS: Hematocrit 30.0 % (42.0-52.0); Hemoglobin 10.2 g/dl (14.0-18.0); Mean Corpuscular HGB Conc 34.0 g/dl (31.0-36.0); Mean Corpuscular Hemoglobin 32.8 pg (27.0-33.0); Mean Corpuscular Volume 96.5 fL (80.0-98.0); NRBC Abs Auto 0.000 X10*3/uL (0.0-0.012); NRBC Pct Auto 0.0 /100WBC (0.0-0.2); Platelet Count 106 X10*3/uL (160-400); Red Blood Count 3.11 X10*6/uL (4.60-5.80); White Blood Count 23.8 X10*3/uL (4.8-10.8)
--- NOTE | 2025-07-12 10:09 | HO.PM.IMPN ---
Subjective Subjective Date of Service: 07/12/25 Interval History: Seen and evaluated today, reports pain in bilateral feet does not want them touched or moved, says he is tired but thinks he is feeling somewhat better than yesterday. Denies any recollection of bloody emesis or stool. Reported had episode of coffee ground emesis, but denies to me Physical Exam Vital Signs: Vital Signs: Last Vital Signs Temp 97.1 F 07/12/25 07:43 Pulse 115 H 07/12/25 08:37 Resp 18 07/12/25 08:37 BP 139/84 07/12/25 07:43 Pulse Ox 95 07/12/25 08:37 O2 Del Method Nasal Cannula 07/12/25 08:37 O2 Flow Rate 2 07/12/25 08:37 BMI result Body Mass Index 25.1 Const: General: tired appearing Orientation/consciousness: patient oriented x3 Resp: Effort & Inspection: normal respiratory effort and able to speak in complete sentences Auscultation: clear to auscultation bilaterally and diminished lung sounds bilateral (bases ) Cardio: Rate: regular rate Rhythm: regular rhythm GI: Inspection: Yes distended Auscultation: Hypoactive bowel sounds present Skin: General skin exam: crusts (history of bullous pemphigoid) and dry skin Neuro: General: patient oriented x3 Objective Data Active Medications Acetaminophen (Acetaminophen 325 Mg Tablet) 650 mg PO Q6H PRN PRN Reason: Pain, Mild 1-3,fever,headache Last Admin: 07/11/25 03:15 Dose: 650 mg Documented By: DOROTHEA Acetaminophen (Acetaminophen 325 Mg Tablet) 650 mg PO BEDTIME [facility] Last Admin: 07/11/25 20:12 Dose: 650 mg Documented By: WONG Amlodipine Besylate (Amlodipine Besylate 10 Mg Tablet) 10 mg PO DAILY [facility]; Protocol Ascorbic Acid (Ascorbic Acid 500 Mg Tablet) 500 mg PO DAILY [facility] Aspirin (Aspirin Enteric Coated 81 Mg Tablet.) 81 mg PO DAILY [facility] Atorvastatin Calcium (Atorvastatin Calcium 10 Mg Tablet) 10 mg PO DAILY [facility] Bacitracin (Bacitracin Oint 14 Gm Tube) 1 appl TOPICAL BID [facility]; Protocol Last Admin: 07/11/25 22:08 Dose: Not Given Documented By: WONG Non-Admin Reason: Patient Refused Bisacodyl (Bisacodyl 5 Mg Tablet.) 5 mg PO DAILY PRN PRN Reason: Constipation Bisacodyl (Bisacodyl 10 Mg Supp.Rect) 10 mg DE DAILY PRN PRN Reason: Constipation Bisacodyl (Bisacodyl 10 Mg Supp.Rect) 10 mg DE Q3D [facility] Bismuth Subsalicylate (Bismuth Subsalicylate Liquid 524 Mg/30 Ml Oral.Susp) 524 mg PO Q8H PRN PRN Reason: UPSET STOMACH/NAUSEA Calcium Carbonate (Calcium Carbonate 750 Mg Tab.Chew) 750 mg PO Q4H PRN PRN Reason: Heartburn Last Admin: 07/12/25 03:39 Dose: 750 mg Documented By: WONG Carvedilol (Carvedilol 6.25 Mg Tablet) 6.25 mg PO BID [facility]; Protocol Last Admin: 07/11/25 20:13 Dose: 6.25 mg Documented By: WONG Dextrose (Dextrose 50 % 25 Gm/50 Ml Syringe) 25 gm IVPUSH Q15M PRN; Protocol PRN Reason: per Hypoglycemia Standing Ord. Docusate Sodium (Docusate Sodium 100 Mg Capsule) 200 mg PO BID [facility] Last Admin: 07/11/25 20:13 Dose: 200 mg Documented By: WONG Enoxaparin Sodium (Enoxaparin Sodium 40 Mg/0.4 Ml Syringe) 40 mg SUBCUT Q24H [facility] Last Admin: 07/12/25 00:26 Dose: 40 mg Documented By: WONG Famotidine (Famotidine 20 Mg Tablet) 20 mg PO DAILY [facility] Ferrous Sulfate (Ferrous Sulfate 324 Mg Tablet.) 324 mg PO DAILY [facility] Folic Acid (Folic Acid 1 Mg Tablet) 1 mg PO SUTUWETHFRSA [facility] Gabapentin (Gabapentin 300 Mg Capsule) 300 mg PO TID [facility] Last Admin: 07/11/25 20:11 Dose: 300 mg Documented By: WONG Glucose (Glucose Gel 15 Gm Gel..Gram.) 15 gm PO Q15M PRN; Protocol PRN Reason: per Hypoglycemia Standing Ord. Guaifenesin (Guaifenesin 200 Mg/10 Ml 10 Ml Liquid) 10 ml PO Q4H PRN PRN Reason: Cough Guaifenesin (Guaifenesin La 600 Mg Tab.Er.12h) 600 mg PO Q12H PRN PRN Reason: Cold Symptoms Vancomycin HCl 1,000 mg/ (Sodium Chloride) 270 mls @ 270 mls/hr IV Q24H [facility] Insulin Human Lispro (Insulin Lispro 100 Unit/Ml 3 Ml Vial) 0 unit SUBCUT QIDACHS [facility]; Protocol Last Admin: 07/12/25 07:55 Dose: Not Given Documented By: MP Non-Admin Reason: No Insulin Coverage Lactulose (Lactulose 20 Gm/30 Ml Solution) 20 gm PO DAILY [facility] Lidocaine HCl (Lidocaine Hcl Viscous 2 % 15 Ml Solution) 15 ml MUCOUS MEM Q3H PRN PRN Reason: Dyspepsia Last Admin: 07/11/25 06:28 Dose: 15 ml Documented By: DOROTHEA Magnesium Hydroxide (Milk Of Magnesia 30 Ml Oral.Susp) 30 ml PO DAILY PRN PRN Reason: Constipation Magnesium Hydroxide (Milk Of Magnesia 30 Ml Oral.Susp) 30 ml PO BEDTIME PRN PRN Reason: Constipation Melatonin (Melatonin 3 Mg Tablet) 6 mg PO BEDTIME PRN PRN Reason: Insomnia Last Admin: 07/11/25 03:45 Dose: 6 mg Documented By: DOROTHEA Meropenem (Meropenem 1 Gm Vial) 1 gm IVPUSH Q12H [facility] Last Admin: 07/12/25 00:13 Dose: 1 gm Documented By: WONG Methotrexate (Methotrexate Sodium 2.5 Mg Tablet) 15 mg PO MO [facility] Last Admin: 07/11/25 22:05 Dose: 15 mg Documented By: WONG Ondansetron HCl (Ondansetron Hcl 4 Mg/2 Ml Vial) 4 mg IVPUSH Q8H PRN PRN Reason: Nausea and Vomiting Last Admin: 07/11/25 21:02 Dose: 4 mg Documented By: WONG Comments: early dose per provider Pantoprazole Sodium (Pantoprazole Sodium 40 Mg/10 Ml Vial) 40 mg IVPUSH BID@0630,1630 [facility] Last Admin: 07/12/25 08:32 Dose: 40 mg Documented By: MP Pharmacy Consult (Consult Rx Vancomycin Dosing) 1 each MISCELLANE DAILY PRN PRN Reason: Consult order Polyethylene Glycol (Polyethylene Glycol 3350 17 Gm Powd.Pack) 17 gm PO DAILY [facility] Prednisone (Prednisone 2.5 Mg Tablet) 2.5 mg PO DAILY [facility] Sodium Biphosphate/Sodium Phosphate (Sodium Phosphate,Stark-Dibasic 133 Ml Enema) 118 ml DE DAILY PRN PRN Reason: Constipation Sodium Chloride (0.9 % Sodium Chloride Flush 3 Ml Syringe) 3 ml IVFLUSH QSHIFT [facility] Last Admin: 07/12/25 08:32 Dose: 3 ml Documented By: MP Tramadol HCl (Tramadol Hcl 50 Mg Tablet) 50 mg PO BEDTIME PRN PRN Reason: moderate to severe pain Last Admin: 07/12/25 03:38 Dose: 50 mg Documented By: WONG Trazodone HCl (Trazodone Hcl 50 Mg Tablet) 50 mg PO BEDTIME [facility] Last Admin: 07/11/25 20:11 Dose: 50 mg Documented By: WONG Vitamin D (Cholecalciferol (Vitamin D3) 25 Mcg Tablet) 25 mcg PO DAILY [facility] Labs 07/12/25 09:13 07/12/25 09:13 Labs: Laboratory Results - last 24 hr 07/11/25 07/11/25 07/11/25 05:23 13:58 16:13 MCV MCH MCHC RDW Plt Count MPV Immature Gran % (Auto) Neut % (Auto) Lymph % (Auto) Stark % (Auto) Eos % (Auto) Baso % (Auto) Lymph # (Auto) Stark # (Auto) Eos # (Auto) Baso # (Auto) Abs Immat Gran (auto) Absolute Neuts (auto) Absolute Nucleated RBC Nucleated RBC % (auto) Smear Path Review SEE NOTE POC Glucose 145 H 140 H 07/11/25 07/12/25 07/12/25 20:08 07:28 09:13 MCV Cancelled MCH MCHC RDW Plt Count MPV Immature Gran % (Auto) Neut % (Auto) Lymph % (Auto) Stark % (Auto) Eos % (Auto) Baso % (Auto) Lymph # (Auto) Stark # (Auto) Eos # (Auto) Baso # (Auto) Abs Immat Gran (auto) Absolute Neuts (auto) Absolute Nucleated RBC Nucleated RBC % (auto) Smear Path Review POC Glucose 134 H 130 H 07/12/25 07/12/25 07/12/25 09:13 09:13 09:13 MCV 96.5 MCH Cancelled 32.8 MCHC Cancelled 34.0 RDW Cancelled Plt Count MPV Immature Gran % (Auto) Neut % (Auto) Lymph % (Auto) Stark % (Auto) Eos % (Auto) Baso % (Auto) Lymph # (Auto) Stark # (Auto) Eos # (Auto) Baso # (Auto) Abs Immat Gran (auto) Absolute Neuts (auto) Absolute Nucleated RBC Nucleated RBC % (auto) Smear Path Review POC Glucose 07/12/25 07/12/25 07/12/25 09:13 09:13 09:13 MCV MCH MCHC RDW 16.6 H Plt Count Cancelled 106 L MPV Cancelled 10.0 Immature Gran % (Auto) Cancelled Neut % (Auto) Cancelled Lymph % (Auto) Cancelled Stark % (Auto) Cancelled Eos % (Auto) Cancelled Baso % (Auto) Cancelled Lymph # (Auto) Cancelled Stark # (Auto) Cancelled Eos # (Auto) Cancelled Baso # (Auto) Cancelled Abs Immat Gran (auto) Cancelled Absolute Neuts (auto) Cancelled Absolute Nucleated RBC Cancelled Nucleated RBC % (auto) Smear Path Review POC Glucose 07/12/25 07/12/25 09:13 09:13 MCV MCH MCHC RDW Plt Count MPV Immature Gran % (Auto) Neut % (Auto) Lymph % (Auto) Stark % (Auto) Eos % (Auto) Baso % (Auto) Lymph # (Auto) Stark # (Auto) Eos # (Auto) Baso # (Auto) Abs Immat Gran (auto) Absolute Neuts (auto) Absolute Nucleated RBC 0.000 Nucleated RBC % (auto) Cancelled 0.0 Smear Path Review POC Glucose Microbiology Microbiology Results: Microbiology 07/10/25 20:01 Blood Culture - Preliminary Blood - Venous Prelim: GPC Gram Stain only 07/10/25 20:00 Blood Culture - Preliminary Blood - Venous Prelim: GPC Gram Stain only Assessment and Plan (1) Chronic indwelling Carty catheter: Status: Acute (2) Neurogenic bladder: Status: Acute (3) Gram-positive cocci bacteremia: Status: Acute Plan 80-year-old chronically bed bound male, resident of [facility] with pertinent history of bullous pemphigoid, MS, chronic Carty, mood disorder, insulin-dependent type 2 diabetes mellitus, mixed hyperlipidemia, hypertension who was sent to the emergency department for evaluation of altered mentation. Sepsis d/t UTI asssociated with chronic carty cath, and GPC bacteremia, source unclear at this point Urine culture pending, h/o ESBL BCx --GPC, sensitivity pending, but +MRSA -continue Meropenem for UTI -continue Vanco for GPC bacteremia -Echocardiogram to rule IE -ID consult Acute metabolic encephalopathy d/t above resolved Replacement of Carty catheter: Urology replaced, US guided, difficult placement had some bleeding issues as a result, surgery if SBO ?Brown/red vomit, discharge found on bed pad per nursing- GI consulted for ?GIB, NPO for now IV PPI GI consult--rec KUB since obstipation x several days 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 1.6 --> 1.2, resolved Anemia of chronic disease: Hemoglobin above transfusion threshold Bullous pemphigoid: Continue methotrexate, prednisone mixed hyperlipidemia Statin Hypertension Coreg and Amlodinpine, hold if BP low Insulin-dependent type 2 diabetes mellitus: Sliding scale insulin NPO, ADA diet when eating DVT prophylaxis: Lovenox Full code. Quality Stroke Does the patient have a stroke diagnosis?: No VTE Prior VTE?: No VTE Risk Level:: Medical - moderate - high VTE Device Contraindication: Treatment Not Indicated VTE Drug Contraindication: N/A - Med Ordered
[2025-07-12 10:39] LABS: Atypical Lymph Absolute Manual 0.2 x10*3/uL; Atypical Lymphs Percent Manual 1 % (0-6); Band Neutrophils Percent 2 % (3-5); Lymphocytes Absolute Manual 0.7 X10*3/uL (1.2-4.9); Lymphocytes Percent Manual 3 % (20-40); Monocytes Absolute Manual 0.2 X10*3/uL (0.1-1.2); Monocytes Percent Manual 1 % (2-11); Neutrophils Absolute Manual 22.6 X10*3/uL (2.0-8.3); Neutrophils Percent Manual 93 % (45-73)
[2025-07-12 10:45] LABS: Burr Cells 1+ (0-2) /OIF; Macrocytosis 1+ (5-14) /OIF; RBC Morphology NOTED; Schistocytes 1+ (0-2) /OIF
[2025-07-12 10:52] LABS: Creatinine Clr Calc Pharmacy 54.7; Estimated Glomerular Filt Rate 57
[2025-07-12] MEDS: Aspirin Enteric Coated 81 MG TABLET.DR PO (10:54)
[2025-07-12] MEDS: Ferrous Sulfate 324 MG TABLET.DR PO (10:55)
[2025-07-12 10:56] LABS: Anion Gap 16 (12-20); Anion Gap 17 (12-20); Blood Urea Nitrogen 31 mg/dL (9-16); Blood Urea Nitrogen 32 mg/dL (9-16); Calcium 8.2 mg/dL (8.4-10.2); Carbon Dioxide 20 mmol/L (22-29); Chloride 106 mmol/L (96-108); Chloride 107 mmol/L (96-108); Creatinine Clr Calc Pharmacy 55.2; Creatinine Clr Calc Pharmacy 55.6; Estimated Glomerular Filt Rate 58; Estimated Glomerular Filt Rate 59; Potassium 3.6 mmol/L (3.3-5.1); Sodium 139 mmol/L (135-145)
--- NOTE | 2025-07-12 10:58 | HE.PHANOTE ---
Re: Irasema Pt has had renal improvement. Current dose is subtherapuetic, dose increased to 1500mg q24h with predicted AUC 586, predicted trough 17.7. Next trough 07/13 @ 1999.
[2025-07-12 11:02] LABS: Glucose, Whole Blood 130 mg/dL (60-115)
--- NOTE | 2025-07-12 11:36 | PM.GICN ---
History of Present Illness Data of Consult Service Date: 07/12/25 Requesting physician: Juan Dowell Primary Care Provider: Get Martin MD [facility] Reason for consult: coffee grounds emesis This is a 80-year-old gentleman with past medical history of bullous pemphigoid, MS, type 2 diabetes, chronic Nunez, who was brought to the hospital for altered mental status. History obtained from the chart as well as the patient himself. Per chart review, patient was found to be hypotensive and altered. In the emergency room, was noted to be tachycardic with white count was up to 37. Initial lactate was 2.6, that improved after fluid resuscitation. Chem 7 with mild elevation of creatinine from baseline. So far, source likely to be urinary, although no urinalysis available. No abdominal imaging available. Gastroenterology was consulted this morning after patient was found to have coffee-ground emesis on his pillow. Patient himself does not describe any abdominal pain, nausea, vomiting. He does report inability to pass any gas or stool over the last 3 days. Does not report good appetite. Review of Systems Review of Systems: Yes all other systems are reviewed and are negative PMF Past Medical History Medical History (Updated 07/12/25 @ 15:14 by Maine Mendez MD) Steroid dependence EDWARD (acute kidney injury) UTI (urinary tract infection) due to urinary indwelling Nunez catheter Bullous pemphigoid Decubitus ulcer of coccygeal region, stage 2 Acute hypotension Sepsis Aspiration pneumonitis Recurrent UTI (urinary tract infection) Hypotonic neurogenic bladder Lytic lesion of bone on x-ray Wound of foot Anemia Septic shock Shoulder pain Constipation Hematuria Multiple sclerosis Depression Diabetes mellitus type 2 in obese Chronic pain syndrome BPH (benign prostatic hyperplasia) Dehydration Chronic renal failure Urinary tract infection Family History Family History Family/Other Heart attack Father Diabetes Surgical History Surgical History Hx of removal of cyst Social History Social History Household Members: Unknown / Unable to assess Household Members Other:: lives at [facility] in [place] Housing: [facility] Housing Other:: [facility] Unable to assess alcohol history related to: Unable to respond Alcohol intake: never Comment: BEDFAST Patient Tobacco Use Status: Former Tobacco user Cigarette Packs Per Day: 1 Advance Directives Date on File: 10/13/20 service: Yes Current occupational status: retired Meds Allergies Allergy/AdvReac Type Severity Reaction Status Date / Time Benzodiazepines Allergy Unknown UNKNOWN Verified 07/10/25 16:36 (BENZODIAZEPINES) dalfampridine (From AMPYRA) Allergy Unknown UNKNOWN Verified 07/10/25 16:36 duloxetine (From CYMBALTA) Allergy Unknown UNKNOWN Verified 07/10/25 16:36 ezetimibe (From ZETIA) Allergy Unknown UNKNOWN Verified 07/10/25 16:36 niacin (NIACIN) Allergy Unknown UNKNOWN Verified 07/10/25 16:36 pravastatin (PRAVASTATIN) Allergy Unknown UNKNOWN Verified 07/10/25 16:36 Epbewzn-GGL-VsK Reductase Allergy Unknown UNKNOWN Verified 07/10/25 16:36 Inhibitor (DQLYNIM-[id number]-[id number] REDUCTASE INHIBITOR) lorazepam (From ATIVAN) AdvReac Severe EXCESSIVE Verified 07/10/25 16:36 SEDATION doxycycline (DOXYCYCLINE) AdvReac Mild esophogeal Verified 07/10/25 16:36 iritation methylprednisolone (From AdvReac Mild heartburn Verified 07/10/25 16:36 SOLU-MEDROL) ertapenem (From INVANZ) AdvReac Unknown possible Verified 07/10/25 16:36 cause of bullous pemphigoid Active Medications: Current Medications Acetaminophen (Acetaminophen 325 Mg Tablet) 650 mg PO Q6H PRN PRN Reason: Pain, Mild 1-3,fever,headache Last Admin: 07/11/25 03:15 Dose: 650 mg Acetaminophen (Acetaminophen 325 Mg Tablet) 650 mg PO BEDTIME WICHO Last Admin: 07/11/25 20:12 Dose: 650 mg Amlodipine Besylate (Amlodipine Besylate 10 Mg Tablet) 10 mg PO DAILY [facility]; Protocol Last Admin: 07/12/25 10:51 Dose: 10 mg Ascorbic Acid (Ascorbic Acid 500 Mg Tablet) 500 mg PO DAILY [facility] Last Admin: 07/12/25 10:55 Dose: 500 mg Aspirin (Aspirin Enteric Coated 81 Mg Tablet.Dr) 81 mg PO DAILY [facility] Last Admin: 07/12/25 10:54 Dose: 81 mg Atorvastatin Calcium (Atorvastatin Calcium 10 Mg Tablet) 10 mg PO DAILY [facility] Last Admin: 07/12/25 10:51 Dose: 10 mg Bacitracin (Bacitracin Oint 14 Gm Tube) 1 appl TOPICAL BID [facility]; Protocol Last Admin: 07/12/25 11:08 Dose: 1 appl Bisacodyl (Bisacodyl 5 Mg Tablet.Dr) 5 mg PO DAILY PRN PRN Reason: Constipation Bisacodyl (Bisacodyl 10 Mg Supp.Rect) 10 mg IN DAILY PRN PRN Reason: Constipation Bisacodyl (Bisacodyl 10 Mg Supp.Rect) 10 mg IN Q3D [facility] Bismuth Subsalicylate (Bismuth Subsalicylate Liquid 524 Mg/30 Ml Oral.Susp) 524 mg PO Q8H PRN PRN Reason: UPSET STOMACH/NAUSEA Calcium Carbonate (Calcium Carbonate 750 Mg Tab.Chew) 750 mg PO Q4H PRN PRN Reason: Heartburn Last Admin: 07/12/25 03:39 Dose: 750 mg Carvedilol (Carvedilol 6.25 Mg Tablet) 6.25 mg PO BID [facility]; Protocol Last Admin: 07/12/25 10:49 Dose: 6.25 mg Dextrose (Dextrose 50 % 25 Gm/50 Ml Syringe) 25 gm IVPUSH Q15M PRN; Protocol PRN Reason: per Hypoglycemia Standing Ord. Docusate Sodium (Docusate Sodium 100 Mg Capsule) 200 mg PO BID [facility] Last Admin: 07/12/25 10:49 Dose: 200 mg Enoxaparin Sodium (Enoxaparin Sodium 40 Mg/0.4 Ml Syringe) 40 mg SUBCUT Q24H [facility] Last Admin: 07/12/25 00:26 Dose: 40 mg Famotidine (Famotidine 20 Mg Tablet) 20 mg PO DAILY [facility] Last Admin: 07/12/25 10:50 Dose: 20 mg Ferrous Sulfate (Ferrous Sulfate 324 Mg Tablet.) 324 mg PO DAILY [facility] Last Admin: 07/12/25 10:55 Dose: 324 mg Folic Acid (Folic Acid 1 Mg Tablet) 1 mg PO SUTUWETHFRSA [facility] Gabapentin (Gabapentin 300 Mg Capsule) 300 mg PO TID [facility] Last Admin: 07/12/25 10:55 Dose: 300 mg Glucose (Glucose Gel 15 Gm Gel..Gram.) 15 gm PO Q15M PRN; Protocol PRN Reason: per Hypoglycemia Standing Ord. Guaifenesin (Guaifenesin 200 Mg/10 Ml 10 Ml Liquid) 10 ml PO Q4H PRN PRN Reason: Cough Guaifenesin (Guaifenesin La 600 Mg Tab.Er.12h) 600 mg PO Q12H PRN PRN Reason: Cold Symptoms Vancomycin HCl 1,500 mg/ (Sodium Chloride) 500 mls @ 333.333 mls/hr IV Q24H [facility] Insulin Human Lispro (Insulin Lispro 100 Unit/Ml 3 Ml Vial) 0 unit SUBCUT QIDACHS [facility]; Protocol Last Admin: 07/12/25 11:20 Dose: Not Given Lactulose (Lactulose 20 Gm/30 Ml Solution) 20 gm PO DAILY [facility] Last Admin: 07/12/25 10:59 Dose: 20 gm Lidocaine HCl (Lidocaine Hcl Viscous 2 % 15 Ml Solution) 15 ml MUCOUS MEM Q3H PRN PRN Reason: Dyspepsia Last Admin: 07/11/25 06:28 Dose: 15 ml Magnesium Hydroxide (Milk Of Magnesia 30 Ml Oral.Susp) 30 ml PO DAILY PRN PRN Reason: Constipation Magnesium Hydroxide (Milk Of Magnesia 30 Ml Oral.Susp) 30 ml PO BEDTIME PRN PRN Reason: Constipation Melatonin (Melatonin 3 Mg Tablet) 6 mg PO BEDTIME PRN PRN Reason: Insomnia Last Admin: 07/11/25 03:45 Dose: 6 mg Meropenem (Meropenem 1 Gm Vial) 1 gm IVPUSH Q12H [facility] Last Admin: 07/12/25 11:02 Dose: 1 gm Methotrexate (Methotrexate Sodium 2.5 Mg Tablet) 15 mg PO MO [facility] Last Admin: 07/11/25 22:05 Dose: 15 mg Ondansetron HCl (Ondansetron Hcl 4 Mg/2 Ml Vial) 4 mg IVPUSH Q8H PRN PRN Reason: Nausea and Vomiting Last Admin: 07/11/25 21:02 Dose: 4 mg Pantoprazole Sodium (Pantoprazole Sodium 40 Mg/10 Ml Vial) 40 mg IVPUSH BID@0630,1630 [facility] Last Admin: 07/12/25 08:32 Dose: 40 mg Pharmacy Consult (Consult Rx Vancomycin Dosing) 1 each MISCELLANE DAILY PRN PRN Reason: Consult order Polyethylene Glycol (Polyethylene Glycol 3350 17 Gm Powd.Pack) 17 gm PO DAILY [facility] Last Admin: 07/12/25 10:48 Dose: 17 gm Prednisone (Prednisone 2.5 Mg Tablet) 2.5 mg PO DAILY [facility] Last Admin: 07/12/25 10:49 Dose: 2.5 mg Sodium Biphosphate/Sodium Phosphate (Sodium Phosphate,[place]house-Dibasic 133 Ml Enema) 118 ml IN DAILY PRN PRN Reason: Constipation Sodium Chloride (0.9 % Sodium Chloride Flush 3 Ml Syringe) 3 ml IVFLUSH QSHIFT [facility] Last Admin: 07/12/25 08:32 Dose: 3 ml Tramadol HCl (Tramadol Hcl 50 Mg Tablet) 50 mg PO BEDTIME PRN PRN Reason: moderate to severe pain Last Admin: 07/12/25 03:38 Dose: 50 mg Trazodone HCl (Trazodone Hcl 50 Mg Tablet) 50 mg PO BEDTIME [facility] Last Admin: 07/11/25 20:11 Dose: 50 mg Vitamin D (Cholecalciferol (Vitamin D3) 25 Mcg Tablet) 25 mcg PO DAILY [facility] Last Admin: 07/12/25 10:54 Dose: 25 mcg Home Medications ?Medication ?Instructions ?Recorded ?Confirmed ?Last Taken ?Type tramadol 50 mg tablet 50 mg PO BEDTIME PRN moderate to 10/09/20 07/11/25 Unknown History severe pain acetaminophen 325 mg tablet 650 mg PO Q4H PRN pain or fever 03/13/21 07/11/25 Unknown History rosuvastatin 10 mg tablet 10 mg PO DAILY 03/13/21 07/11/25 Unknown History Held on 06/11/24. Instructions: Resume on 06/14/24. guaifenesin 100 mg/5 mL oral 200 mg PO Q4H PRN Cough 05/19/21 07/11/25 Unknown History liquid (Diabetic Tussin EX) prednisone 2.5 mg tablet 2.5 mg PO DAILY 05/19/21 07/11/25 Unknown History amlodipine 10 mg tablet 10 mg PO DAILY 11/16/23 07/11/25 Unknown History bismuth subsalicylate 262 mg/15 mL 524 mg PO Q8H PRN UPSET 11/16/23 07/11/25 Unknown History oral suspension (Pepto-Bismol) STOMACH/NAUSEA ceramides 1,3,6-II (CeraVe topical 1 appl topical BID Dry Skin 11/16/23 07/11/25 Unknown History cream) docusate sodium 100 mg capsule 200 mg PO BID 11/16/23 07/11/25 Unknown History (Colace) famotidine 20 mg tablet 20 mg PO DAILY 11/16/23 07/11/25 Unknown History folic acid 1 mg tablet 1 mg PO SUTUWETHFRSA 11/16/23 07/11/25 Unknown History insulin glargine-yfgn 100 unit/mL 3 unit subcut BEDTIME 11/16/23 07/11/25 Unknown History subcutaneous solution lactulose 10 gram/15 mL oral 30 ml PO DAILY 11/16/23 07/11/25 Unknown History solution (Enulose) melatonin 5 mg tablet 5 mg PO BEDTIME PRN Insomnia 11/16/23 07/11/25 Unknown History polyethylene glycol 3350 17 17 g PO DAILY 11/16/23 07/11/25 Unknown History gram/dose oral powder (Miralax) methotrexate sodium 2.5 mg tablet 15 mg PO MO 02/25/24 07/11/25 Unknown History bisacodyl 5 mg tablet 5 mg PO DAILY PRN Constipation 03/31/24 07/11/25 Unknown History aspirin 81 mg tablet,delayed 81 mg PO DAILY 04/23/24 07/11/25 Unknown History release bisacodyl 10 mg rectal suppository 10 mg IN DAILY PRN Constipation 04/23/24 07/11/25 Unknown History bisacodyl 10 mg rectal suppository 10 mg IN Q3D 04/23/24 07/11/25 Unknown History guaifenesin 600 mg tablet, 600 mg PO Q12H PRN Cold Symptoms 04/23/24 07/11/25 Unknown History extended release 12 hr (Mucinex) sodium phosphates 19 gram-7 118 ml IN DAILY PRN Constipation 04/23/24 07/11/25 Unknown History gram/118 mL enema (Fleet Enema) acetaminophen 325 mg tablet 650 mg PO BEDTIME 07/11/25 07/11/25 Unknown History ascorbic acid (vitamin C) 500 mg 500 mg PO DAILY 07/11/25 07/11/25 Unknown History tablet (Vitamin C) bacitracin 500 unit/gram topical 1 appl topical BID 07/11/25 07/11/25 Unknown History ointment cholecalciferol (vitamin D3) 25 25 mcg PO DAILY 07/11/25 07/11/25 Unknown History mcg (1,000 unit) tablet (Vitamin D3) ferrous sulfate 325 mg (65 mg 325 mg PO DAILY 07/11/25 07/11/25 Unknown History iron) tablet insulin lispro 100 unit/mL See Protocol subcut BID 07/11/25 07/11/25 Unknown History subcutaneous solution (Admelog U-100 Insulin lispro) magnesium hydroxide 400 mg/5 mL 30 ml PO BEDTIME PRN Constipation 07/11/25 07/11/25 Unknown History oral suspension (Milk of Magnesia) trazodone 50 mg tablet 50 mg PO BEDTIME 07/11/25 07/11/25 Unknown History Physical Exam Exam: Exam: Elderly Gen Pale and under nourished Abdomen firm, distended, nontender No overt respiratory distress Lower extremities with no active blisters but redness over toes and dorsum of the feet Vital Signs: Vital Signs: Last Vital Signs Temp 97.1 F 07/12/25 07:43 Pulse 115 H 07/12/25 08:37 Resp 18 07/12/25 08:37 BP 158/74 H 07/12/25 08:00 Pulse Ox 95 07/12/25 08:37 O2 Del Method Nasal Cannula 07/12/25 08:37 O2 Flow Rate 2 07/12/25 08:37 BMI result Body Mass Index 25.1 Results Labs 07/12/25 09:13 07/12/25 09:13 Labs: Short CBC 07/12/25 07/12/25 07/12/25 Range/Units 09:13 09:13 09:13 WBC Cancelled 23.8 H Hgb Cancelled 10.2 L Hct Cancelled Plt Count 07/12/25 07/12/25 Range/Units 09:13 09:13 WBC Hgb Hct 30.0 L Plt Count Cancelled 106 L BMP 07/12/25 07/12/25 07/12/25 09:13 09:13 09:13 Sodium 139 139 Potassium 3.6 3.6 Chloride 107 Carbon Dioxide BUN Creatinine Calcium 07/12/25 07/12/25 07/12/25 09:13 09:13 09:13 Sodium Potassium Chloride 106 Carbon Dioxide 20 L 20 L BUN 31 H 32 H Creatinine 1.21 Calcium 07/12/25 07/12/25 07/12/25 09:13 09:13 09:13 Sodium Potassium Chloride Carbon Dioxide BUN Creatinine 1.22 1.20 Calcium 8.2 L 8.2 L Microbiology Microbiology Results: Microbiology 07/10/25 20:01 Blood - Venous Blood Culture - Preliminary Prelim: GPC Gram Stain only 07/10/25 20:00 Blood - Venous Blood Culture - Preliminary Prelim: GPC Gram Stain only Assessment and Plan (1) Coffee ground emesis: Status: Acute (2) Obstipation: Status: Acute (3) Gram-positive cocci bacteremia: Status: Acute (4) Sepsis: Status: Acute Plan Based on symptoms and clinical exam, would recommend abdominal imaging to rule out any GOO or small bowel obstruction. The upper GI bleeding does not appear to be hemodynamically significant at this time, but recommend monitoring CBC twice a day. Patient with blood cultures positive for Gram-positive cocci. Speciation and source to be determined. Plan: -check KUB to rule out obstruction -repeat CBC this afternoon -consider Urine Cx -agree with PPI BID Thank you for allowing me to participate in his care. Please do not hesitate to reach out for any questions or concerns. Procedures Date of Service Date of Service: 07/12/25
[2025-07-12 15:35] VITALS: BP 163/68; PULSE 106; RESP 18; TEMP 36.1; O2SAT 95
[2025-07-12 15:50] LABS: Glucose, Whole Blood 133 mg/dL (60-115)
[2025-07-12] MEDS: iohexoL 350 MG/ML 100 ML INFUS..BTL IV (19:29)
[2025-07-12 19:42] VITALS: BP 166/75; PULSE 104; RESP 18; TEMP 36.3; O2SAT 95
[2025-07-12 19:51] LABS: Glucose, Whole Blood 137 mg/dL (60-115)
[2025-07-13 03:09] VITALS: BP 162/75; PULSE 107; RESP 20; TEMP 36.3; O2SAT 92
[2025-07-13 08:00] VITALS: BP 139/67; PULSE 100; RESP 19; TEMP 36.2; O2SAT 95
[2025-07-13 08:01] LABS: Glucose, Whole Blood 113 mg/dL (60-115)
[2025-07-13 09:23] LABS: Creatinine Clr Calc Pharmacy 68.8; Estimated Glomerular Filt Rate > 60
[2025-07-13] MEDS: Aspirin Enteric Coated 81 MG TABLET.DR PO (09:23)
[2025-07-13] MEDS: Ferrous Sulfate 324 MG TABLET.DR PO (09:25)
[2025-07-13] MEDS: 0.9 % Sodium Chloride Flush 3 ML SYRINGE IVFLUSH ×3 (09:25→22:12)
[2025-07-13 09:31] VITALS: BP 157/75; PULSE 100
[2025-07-13 10:06] VITALS: BMI 25.1
--- NOTE | 2025-07-13 10:10 | P.PNIM_ITS ---
Subjective Subjective Date of Service: 07/13/25 Interval History: Doing better today, no abdominal pain, and no other complaint. xray and CT of abdomen yesterday possible colitis Physical Exam 2 Vital Signs: Vital Signs: Last Vital Signs Temp 97.1 F 07/13/25 08:00 Pulse 100 07/13/25 09:31 Resp 19 07/13/25 08:00 BP 157/75 H 07/13/25 09:31 Pulse Ox 95 07/13/25 08:00 O2 Del Method Room Air 07/13/25 08:00 O2 Flow Rate 2 07/12/25 08:37 BMI result Body Mass Index 25.1 Const: General: tired appearing Orientation/consciousness: patient oriented x3 Resp: Effort & Inspection: normal respiratory effort and able to speak in complete sentences Auscultation: clear to auscultation bilaterally and diminished lung sounds bilateral (bases ) Cardio: Rate: regular rate Rhythm: regular rhythm GI: Inspection: Yes distended Auscultation: Hypoactive bowel sounds present Skin: General skin exam: crusts (history of bullous pemphigoid) and dry skin Neuro: General: patient oriented x3 Objective Data Active Medications Acetaminophen (Acetaminophen 325 Mg Tablet) 650 mg PO Q6H PRN PRN Reason: Pain, Mild 1-3,fever,headache Last Admin: 07/11/25 03:15 Dose: 650 mg Documented By: DOROTHEA Acetaminophen (Acetaminophen 325 Mg Tablet) 650 mg PO BEDTIME [facility] Last Admin: 07/12/25 22:03 Dose: 650 mg Documented By: WONG Amlodipine Besylate (Amlodipine Besylate 10 Mg Tablet) 10 mg PO DAILY [facility]; Protocol Last Admin: 07/13/25 09:31 Dose: 10 mg Documented By: NOMAN Ascorbic Acid (Ascorbic Acid 500 Mg Tablet) 500 mg PO DAILY [facility] Last Admin: 07/13/25 09:24 Dose: 500 mg Documented By: NOMAN Aspirin (Aspirin Enteric Coated 81 Mg Tablet.) 81 mg PO DAILY [facility] Last Admin: 07/13/25 09:23 Dose: 81 mg Documented By: NOMAN Atorvastatin Calcium (Atorvastatin Calcium 10 Mg Tablet) 10 mg PO DAILY [facility] Last Admin: 07/13/25 09:24 Dose: 10 mg Documented By: NOMAN Bacitracin (Bacitracin Oint 14 Gm Tube) 1 appl TOPICAL BID [facility]; Protocol Last Admin: 07/13/25 09:29 Dose: 1 appl Documented By: NOMAN Bisacodyl (Bisacodyl 5 Mg Tablet.) 5 mg PO DAILY PRN PRN Reason: Constipation Bisacodyl (Bisacodyl 10 Mg Supp.Rect) 10 mg FL DAILY PRN PRN Reason: Constipation Bisacodyl (Bisacodyl 10 Mg Supp.Rect) 10 mg FL Q3D [facility] Last Admin: 07/12/25 15:35 Dose: 10 mg Documented By: MP Bismuth Subsalicylate (Bismuth Subsalicylate Liquid 524 Mg/30 Ml Oral.Susp) 524 mg PO Q8H PRN PRN Reason: UPSET STOMACH/NAUSEA Calcium Carbonate (Calcium Carbonate 750 Mg Tab.Chew) 750 mg PO Q4H PRN PRN Reason: Heartburn Last Admin: 07/12/25 03:39 Dose: 750 mg Documented By: WONG Carvedilol (Carvedilol 6.25 Mg Tablet) 6.25 mg PO BID [facility]; Protocol Last Admin: 07/13/25 09:31 Dose: 6.25 mg Documented By: NOMAN Dextrose (Dextrose 50 % 25 Gm/50 Ml Syringe) 25 gm IVPUSH Q15M PRN; Protocol PRN Reason: per Hypoglycemia Standing Ord. Docusate Sodium (Docusate Sodium 100 Mg Capsule) 200 mg PO BID [facility] Last Admin: 07/13/25 09:24 Dose: 200 mg Documented By: NOMAN Enoxaparin Sodium (Enoxaparin Sodium 40 Mg/0.4 Ml Syringe) 40 mg SUBCUT Q24H [facility] Last Admin: 07/12/25 23:47 Dose: 40 mg Documented By: WONG Famotidine (Famotidine 20 Mg Tablet) 20 mg PO DAILY [facility] Last Admin: 07/13/25 09:24 Dose: 20 mg Documented By: NOMAN Ferrous Sulfate (Ferrous Sulfate 324 Mg Tablet.) 324 mg PO DAILY [facility] Last Admin: 07/13/25 09:25 Dose: 324 mg Documented By: NOMAN Folic Acid (Folic Acid 1 Mg Tablet) 1 mg PO SUTUWETHFRSA [facility] Last Admin: 07/12/25 15:35 Dose: 1 mg Documented By: MP Gabapentin (Gabapentin 300 Mg Capsule) 300 mg PO TID [facility] Last Admin: 07/13/25 09:23 Dose: 300 mg Documented By: NOMAN Glucose (Glucose Gel 15 Gm Gel..Gram.) 15 gm PO Q15M PRN; Protocol PRN Reason: per Hypoglycemia Standing Ord. Guaifenesin (Guaifenesin 200 Mg/10 Ml 10 Ml Liquid) 10 ml PO Q4H PRN PRN Reason: Cough Guaifenesin (Guaifenesin La 600 Mg Tab.Er.12h) 600 mg PO Q12H PRN PRN Reason: Cold Symptoms Vancomycin HCl 1,500 mg/ (Sodium Chloride) 500 mls @ 333.333 mls/hr IV Q24H [facility] Last Infusion: 07/12/25 23:58 Dose: Infused Documented By: WONG Insulin Human Lispro (Insulin Lispro 100 Unit/Ml 3 Ml Vial) 0 unit SUBCUT QIDACHS [facility]; Protocol Last Admin: 07/13/25 07:56 Dose: Not Given Documented By: NOMAN Non-Admin Reason: No Insulin Coverage Comments: BS 113 Lactulose (Lactulose 20 Gm/30 Ml Solution) 20 gm PO DAILY [facility] Last Admin: 07/13/25 09:26 Dose: 20 gm Documented By: NOMAN Lidocaine HCl (Lidocaine Hcl Viscous 2 % 15 Ml Solution) 15 ml MUCOUS MEM Q3H PRN PRN Reason: Dyspepsia Last Admin: 07/11/25 06:28 Dose: 15 ml Documented By: DOROTHEA Magnesium Hydroxide (Milk Of Magnesia 30 Ml Oral.Susp) 30 ml PO DAILY PRN PRN Reason: Constipation Magnesium Hydroxide (Milk Of Magnesia 30 Ml Oral.Susp) 30 ml PO BEDTIME PRN PRN Reason: Constipation Melatonin (Melatonin 3 Mg Tablet) 6 mg PO BEDTIME PRN PRN Reason: Insomnia Last Admin: 07/11/25 03:45 Dose: 6 mg Documented By: DOROTHEA Meropenem (Meropenem 1 Gm Vial) 1 gm IVPUSH Q12H [facility] Last Admin: 07/12/25 22:05 Dose: 1 gm Documented By: WONG Methotrexate (Methotrexate Sodium 2.5 Mg Tablet) 15 mg PO MO [facility] Last Admin: 07/11/25 22:05 Dose: 15 mg Documented By: WONG Ondansetron HCl (Ondansetron Hcl 4 Mg/2 Ml Vial) 4 mg IVPUSH Q8H PRN PRN Reason: Nausea and Vomiting Last Admin: 07/11/25 21:02 Dose: 4 mg Documented By: WONG Comments: early dose per provider Pantoprazole Sodium (Pantoprazole Sodium 40 Mg/10 Ml Vial) 40 mg IVPUSH BID@0630,1630 [facility] Last Admin: 07/13/25 06:21 Dose: 40 mg Documented By: WONG Pharmacy Consult (Consult Rx Vancomycin Dosing) 1 each MISCELLANE DAILY PRN PRN Reason: Consult order Polyethylene Glycol (Polyethylene Glycol 3350 17 Gm Powd.Pack) 17 gm PO DAILY [facility] Last Admin: 07/13/25 09:26 Dose: 17 gm Documented By: NOMAN Prednisone (Prednisone 2.5 Mg Tablet) 2.5 mg PO DAILY [facility] Last Admin: 07/13/25 09:23 Dose: 2.5 mg Documented By: NOMAN Sodium Biphosphate/Sodium Phosphate (Sodium Phosphate,Vilas-Dibasic 133 Ml Enema) 118 ml FL DAILY PRN PRN Reason: Constipation Sodium Chloride (0.9 % Sodium Chloride Flush 3 Ml Syringe) 3 ml IVFLUSH QSHIFT [facility] Last Admin: 07/13/25 09:25 Dose: 3 ml Documented By: NOMAN Tramadol HCl (Tramadol Hcl 50 Mg Tablet) 50 mg PO BEDTIME PRN PRN Reason: moderate to severe pain Last Admin: 07/12/25 03:38 Dose: 50 mg Documented By: WONG Trazodone HCl (Trazodone Hcl 50 Mg Tablet) 50 mg PO BEDTIME [facility] Last Admin: 07/12/25 22:04 Dose: 50 mg Documented By: WONG Vitamin D (Cholecalciferol (Vitamin D3) 25 Mcg Tablet) 25 mcg PO DAILY [facility] Last Admin: 07/13/25 09:23 Dose: 25 mcg Documented By: NOMAN Labs 07/12/25 09:13 07/13/25 08:48 Labs: Laboratory Results - last 24 hr 07/12/25 07/12/25 07/12/25 09:13 09:13 09:13 Neutrophils % (Manual) 93 H Band Neutrophils % 2 L Lymphocytes % (Manual) 3 L Atypical Lymphs % (Man) 1 Monocytes % (Manual) 1 L Abs Neuts (Manual) 22.6 H Lymphocytes # (Manual) 0.7 L Atyp Lymphs # (Manual) 0.2 Monocytes # (Manual) 0.2 Platelet Estimate DECREASED Plt Morphology Comment NORMAL RBC Morphology NOTED Macrocytosis 1+ (5-14) [place] Cells 1+ (0-2) Schistocytes 1+ (0-2) Hold Purple Top SEE NOTE Anion Gap 16 17 Estim Creat Clear Calc 55.2 54.7 Estimated GFR POC Glucose Random Glucose Calcium Blood Type Antibody Screen 07/12/25 07/12/25 07/12/25 09:13 09:13 09:13 Neutrophils % (Manual) Band Neutrophils % Lymphocytes % (Manual) Atypical Lymphs % (Man) Monocytes % (Manual) Abs Neuts (Manual) Lymphocytes # (Manual) Atyp Lymphs # (Manual) Monocytes # (Manual) Platelet Estimate Plt Morphology Comment RBC Morphology Macrocytosis [place] Cells Schistocytes Hold Purple Top Anion Gap Estim Creat Clear Calc 55.6 Estimated GFR 58 57 59 POC Glucose Random Glucose 146 H Calcium Blood Type Antibody Screen 07/12/25 07/12/25 07/12/25 09:13 09:13 10:52 Neutrophils % (Manual) Band Neutrophils % Lymphocytes % (Manual) Atypical Lymphs % (Man) Monocytes % (Manual) Abs Neuts (Manual) Lymphocytes # (Manual) Atyp Lymphs # (Manual) Monocytes # (Manual) Platelet Estimate Plt Morphology Comment RBC Morphology Macrocytosis [place] Cells Schistocytes Hold Purple Top Anion Gap Estim Creat Clear Calc Estimated GFR POC Glucose 130 H Random Glucose 146 H Calcium 8.2 L 8.2 L Blood Type B Positive Antibody Screen NEGATIVE 07/12/25 07/12/25 07/13/25 15:40 19:46 07:55 Neutrophils % (Manual) Band Neutrophils % Lymphocytes % (Manual) Atypical Lymphs % (Man) Monocytes % (Manual) Abs Neuts (Manual) Lymphocytes # (Manual) Atyp Lymphs # (Manual) Monocytes # (Manual) Platelet Estimate Plt Morphology Comment RBC Morphology Macrocytosis Brent Cells Schistocytes Hold Purple Top Anion Gap Estim Creat Clear Calc Estimated GFR POC Glucose 133 H 137 H 113 Random Glucose Calcium Blood Type Antibody Screen 07/13/25 08:48 Neutrophils % (Manual) Band Neutrophils % Lymphocytes % (Manual) Atypical Lymphs % (Man) Monocytes % (Manual) Abs Neuts (Manual) Lymphocytes # (Manual) Atyp Lymphs # (Manual) Monocytes # (Manual) Platelet Estimate Plt Morphology Comment RBC Morphology Macrocytosis Brent Cells Schistocytes Hold Purple Top Anion Gap Estim Creat Clear Calc 68.8 Estimated GFR > 60 POC Glucose Random Glucose Calcium Blood Type Antibody Screen Microbiology Microbiology Results: Microbiology 07/10/25 20:01 Blood Culture - Preliminary Blood - Venous Prelim: GPC Gram Stain only 07/10/25 20:00 Blood Culture - Preliminary Blood - Venous Prelim: GPC Gram Stain only Assessment and Plan (1) Chronic indwelling Carty catheter: Status: Acute (2) Neurogenic bladder: Status: Acute (3) Gram-positive cocci bacteremia: Status: Acute Plan 80-year-old chronically bed bound male, resident of [facility] with pertinent history of bullous pemphigoid, MS, chronic Carty, mood disorder, insulin- dependent type 2 diabetes mellitus, mixed hyperlipidemia, hypertension who was sent to the emergency department for evaluation of altered mentation. Sepsis d/t UTI asssociated with chronic carty cath, and GPC bacteremia, source unclear at this point Urine culture pending, h/o ESBL BCx --GPC, sensitivity pending, but +MRSA -continue Meropenem for UTI -continue Vanco for GPC bacteremia -Echocardiogram to rule IE -ID consult Acute metabolic encephalopathy d/t above resolved Replacement of Carty catheter: Urology replaced, US guided, difficult placement had some bleeding issues as a result, surgery if SBO ?Brown/red vomit, discharge found on bed pad per nursing- GI consulted for ?GIB, NPO for now IV PPI GI consult--KUB 07/12--Marked gaseous distention of the stomach. Findings could represent gastric outlet obstruction. CT 07/12--1. Wall thickening of the distal large intestine including rectum is nonspecific. Differential considerations include colitis and proctitis. Other bowel wall pathology not excluded by CT. 2. No small bowel obstruction. 3. Small bilateral pleural effusions with underlying atelectasis and/or consolidation of the imaged lung bases, left worse than right. Differential considerations include pneumonia. Please consider attention on follow-up to ensure resolution. -If colitis above Abx should be ok -start clear liquid diet Acute kidney injury stage I: Extruder. 1.6 --> 0.97, resolved Anemia of chronic disease: Hemoglobin above transfusion threshold Bullous pemphigoid: Continue methotrexate, prednisone mixed hyperlipidemia Statin Hypertension Coreg and Amlodinpine, hold if BP low Insulin-dependent type 2 diabetes mellitus: Sliding scale insulin NPO, ADA diet when eating DVT prophylaxis: Lovenox Full code. Quality Stroke Does the patient have a stroke diagnosis?: No VTE Prior VTE?: No VTE Risk Level:: Medical - moderate - high VTE Device Contraindication: Treatment Not Indicated VTE Drug Contraindication: N/A - Med Ordered
--- NOTE | 2025-07-13 10:13 | CA_ITS ---
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 The visually estimated ejection fraction is between 60-65%. - Normal right ventricular cavity size and systolic function. - There is mild dilatation of the ascending aorta measuring 3.90 cm. - There is a moderate loculated pericardial effusion overlying the right atrium. There are no definitive echocardiographic findings of tamponade physiology. There is excessive respiratory variation of the tricuspid valve Doppler velocities. Findings Procedure Information Contrast agent, definity, is being given per protocol without apparent complications. Left Ventricle Normal left ventricular size, thickness, and systolic function. The visually estimated ejection fraction is between 60-65%. There is no evidence of regional wall motion abnormalities. Diastolic function is indeterminate on the basis of available data. Right Ventricle Normal right ventricular cavity size and systolic function. Atria The left atrium is normal in size. The right atrium was not well visualized. Aortic Valve There is a normal trileaflet aortic valve. There is mild calcification of the aortic valve. There is no aortic valve stenosis. There is trace (trivial) aortic valve regurgitation. Mitral Valve There is moderate mitral annular calcification. There is no mitral valve regurgitation. There is no mitral valve stenosis. Pulmonic Valve The pulmonic valve is normal. There is no pulmonic valve regurgitation. Tricuspid Valve Normal tricuspid valve structure. There is no tricuspid valve regurgitation. Normal right atrial pressure. There is no evidence of pulmonary hypertension. Great Vessels There is mild dilatation of the ascending aorta measuring 3.90 cm. The visualized portions of the pulmonary artery and branches are normal. Pericardium/Pleural There is a moderate loculated pericardial effusion overlying the right atrium. There are no definitive echocardiographic findings of tamponade physiology. There is excessive respiratory variation of the tricuspid valve Doppler velocities. Prior Study Comparison No prior study available for comparison. Measurements 2D Linear Measurements IVSd: 1.09 0.6-0.9/0.6-1.0 cm LVIDd: 4.11 3.9-5.3/4.2-5.9 cm LVIDd Index: 2.00 2.4-3.2/2.2-3.1 cm/m2 LVIDs: 3.33 2.0-3.6 cm LVPWd: 0.92 0.7-1.1 cm LA Diam: 3.20 2.7-3.8/3.0-4.0 cm LAIDs Index: 1.55 1.5-2.3 cm/m2 LV Mass: 166.19 67-162/88-224 g LV Mass Index: 80.67 43-95/49-115 g/m2 LVOT Diam: 2.20 3.0+(-)1.3 cm 2D Systolic Function EF 4C: 60.90 >55% EF 2C: 65.80 >55% EF BiP: 63.20 >55% Mitral Valve MV Pk E: 0.39 MV PK A: 0.72 MV Decel Time: 155.00 E/A: 0.50 E'Lateral: 6.53 E'Medial: 6.31 E/E' Med: 6.10 E/E' Lat: 5.90 PHT: 45.00 MVA PHT: 4.89 Decel [place]: 2.49 Aortic Valve AoV Pk Tony: 1.51 AoV Mn Tony: 0.98 AoV VTI: 0.32 AoV Pk Grad: 9.00 Aov Mn Grad: 4.00 MARLENA Cont.VTI: 2.64 LVOT LVOT Pk Tony: 1.00 LVOT Mn Tony: 0.64 LVOT VTI: 0.22 LVOT Pk Grad: 4.00 LVOT Mn Grad: 2.00 LVOT Diam: 2.20 LVOT Area: 3.80 Diastolic Function MV Pk E: 0.39 MV Pk A: 0.72 E/A: 0.50 E'Medial: 6.31 E/E' Med: 6.10 E' Laterial: 6.53 E/E' Lat: 5.90 Right Ventricle TAPSE (mm): 23.50 TVS' Tony: 16.60 Tricuspid Valve TR Pk Tony: 2.28 TR Pk Grad: 21.00 RA Press: 3.00 RVSP: 24.00 Great Vessels Aorta Sinus of Valsalva: 3.71 2.0-3.5 cm Ao Asc: 3.90 2.1-3.4 cm Updated in Other Vendor System with Status of Final Austen Castaneda MD electronically signed on 07/13/2025 6:50:52 PM with status of Final
--- NOTE | 2025-07-13 10:16 | MHC.CLN ---
NUTRITION DIET=CLEAR LIQUIDS. STAGE II PRESSURE INJURY TO COCCYX. WHEN DIET ADVANCES, ADD ENSURE MAX BID TO PROMOTE WOUND HEALING. SUPPLEMENT PROVIDES 300 KCALS 60 G PROTEIN. FOLLOW FOR DIET ADVANCEMENT, PO INTAKE AND SKIN INTEGRITY. SEE CLINICAL NUTRITION ASSESSMENT 07/13/25.
[2025-07-13 11:26] LABS: Glucose, Whole Blood 116 mg/dL (60-115)
--- NOTE | 2025-07-13 14:34 | MHC.CM.PN ---
per rounds today pt will be ready for dc 1 to 2 days plan remains to return to [facility]
[2025-07-13 15:53] VITALS: BP 145/66; PULSE 81; RESP 18; TEMP 36.1; O2SAT 99
--- NOTE | 2025-07-13 16:13 | P.PNGI_ITS ---
Subjective Subjective Date of Service: 07/13/25 Interval History: Patient seen evaluated bedside. Reports no further vomiting. Has lower abd pain and cramping. INitial KUB with suspicion of GOO but CT abd/pel with MARKEDLY distended stomach and D1with a small segment of abrupt narrowing in distal D2 without any obstruction as air noted distal to this. CT also reports possible proctitis. Critical Care Time (minutes): 0 Physical Exam 2 Vital Signs: Vital Signs: Last Vital Signs Temp 96.9 F 07/13/25 15:53 Pulse 81 07/13/25 15:53 Resp 18 07/13/25 15:53 BP 145/66 H 07/13/25 15:53 Pulse Ox 99 07/13/25 15:53 O2 Del Method Room Air 07/13/25 15:53 O2 Flow Rate 2 07/12/25 08:37 BMI result Body Mass Index 25.1 Objective Data Labs 07/12/25 09:13 07/13/25 08:48 Labs: Laboratory Results - last 24 hr 07/12/25 07/13/25 07/13/25 19:46 07:55 08:48 Creatinine 0.97 Estim Creat Clear Calc 68.8 Estimated GFR > 60 POC Glucose 137 H 113 07/13/25 11:07 Creatinine Estim Creat Clear Calc Estimated GFR POC Glucose 116 H Microbiology Microbiology Results: Microbiology 07/10/25 20:00 Blood - Venous Blood Culture - Preliminary Staphylococcus aureus 07/10/25 20:01 Blood - Venous Blood Culture - Preliminary Staphylococcus aureus Procedures Date of Service Date of Service: 07/13/25 Progress Note: A&P Assessment and plan (1) Coffee ground emesis: Status: Acute (2) Gram-positive cocci bacteremia: Status: Acute (3) Proctitis: Status: Acute (4) MRSA bacteremia: Status: Acute Plan Pt with narrowing on D2 noted on CT with prox distention on stomach and duodenal sweep. Pt does not report any further N/V. Does have lower abd pain and proctitis on CT. Also with MRSA with source to be determined. Will also likely get an echo to r/o IE. Plan: - W/up for MRSA bacteremia as per primary team - NGT for decompression if pt develops recurrent nausea/vomiting - Once source control achieved and IE excluded will likely need EGD/flex sig Time Spent With Patient Time: Total time managing care of this patient today ____ minutes. Quality Stroke Does the patient have a stroke diagnosis?: No VTE Prior VTE?: No VTE Risk Level:: Medical - moderate - high VTE Device Contraindication: Treatment Not Indicated VTE Drug Contraindication: N/A - Med Ordered
[2025-07-13 16:21] LABS: Glucose, Whole Blood 154 mg/dL (60-115)
[2025-07-13 16:23] LABS: CDiff Gene PCR NEGATIVE (Negative)
--- NOTE | 2025-07-13 17:30 | HO.WOUND ---
Wound Consult: Initial 80yr old? Male admitted to [facility] on 07/10/25 - See progress notes and H&P for detailed history.? Wound consult placed for buttock and toes.? Patient agreeable to assessment and photo documentation.? Bilateral feet and lower legs noted for resurfacing wounds - see photos below - chart review reveal history of BP - Bullous Pemphigoid although the wounds are in various stages of healing and no bulla observed if this is infact BP topical treatment should include topical steroid application and cover to protect wounds from infection. No open wounds noted at this time no cover dressing needed at this time. Bilateral Heels red - intact and remains blanchable. recommend off loading heels from surface of bed. Sacrum Etiology: Previously documented unstageable pressure injury and Deep Tissue Injury - this admission the wound appears partial thickness tissue however the prior staged wounds are into full thickness tissue injury. given no backstageing this wound would have likely declared as stage 3 given no significant scar tissue noted. Wound Bed: red pink blanchable tissue with central open are moist pink tissue Drainage / Odor: None noted at this time Edges: ? poorly defined Meghan wound: Significant?MASD (Moisture Associated Skin Damage) - No Induration, Fluctuance or Warmth noted patient is noted ot have liquid continuous stool oozing - direct care team aware and provider requesting further lab tests of stool. Pending results. pending results and continued liquid stool would ask provider to assess for Flexeseal fecal mgt system. Pain: Patient reports pain Goals of Treatment: ? Triad to allow for moist wound healing and to protetc from friction and stool - foam dressing to protect from friction and moisture and air in off loading pressure Recommendations: 1. Turn and Reposition every 2 hours and as needed for patient comfort.? Use pillows or wedges to support off loading positions. 2. Off Load all bony prominences with use of pillows and heel boots if needed.? Apply Preventative foams where needed. ? 3. Monitor for incontinence and moisture control, use barrier creams when needed for prevention and treatment. 4. Provide adequate and supplemental nutrition.? 5. Order low air loss mattress. 6. When applicable maintain blood glucose levels per Providers order. Sacrum - Off Load Pressure - Cleanse with PH balance spray or wipes, pat dry. ?Apply thin layer of Triad to wound bed. Do not remove all of paste between applications as this may cause further skin damage.? Cover with foam dressing to aid in off loading and protection from friction. Apply Triad to buttock and intergluteal to protect from moisture. Bilateral Feet - Off load in Heel Protector Boots or with pillows. Gently cleanse with NS, pat dry. Apply topical steroid / cream per provider order, may leave SRINIVAS. Re-consult wound care Nurse for wound deterioration or wound changes.
[2025-07-13 19:40] VITALS: BP 147/76; PULSE 80; RESP 18; TEMP 35.9; O2SAT 95
[2025-07-13 20:31] LABS: Glucose, Whole Blood 117 mg/dL (60-115)
--- NOTE | 2025-07-13 23:21 | W.PM.IDCN ---
History of Present Illness Data of Consult Service Date: 07/13/25 Requesting physician: Juan Sykes Primary Care Provider: Get Martin MD HPI Reason for consult: weakness,staph aureus bacteremia He presents with weakness and confusion. He has bullous pemphigoid thought precipatated by ertapenem He has staph aureus bacteremia. [facility] Past Medical History Medical History Steroid dependence EDWARD (acute kidney injury) UTI (urinary tract infection) due to urinary indwelling Nunez catheter Bullous pemphigoid Decubitus ulcer of coccygeal region, stage 2 Acute hypotension Sepsis Aspiration pneumonitis Recurrent UTI (urinary tract infection) Hypotonic neurogenic bladder Lytic lesion of bone on x-ray Wound of foot Anemia Septic shock Shoulder pain Constipation Hematuria Multiple sclerosis Depression Diabetes mellitus type 2 in obese Chronic pain syndrome BPH (benign prostatic hyperplasia) Dehydration Chronic renal failure Urinary tract infection Family History Family History Family/Other Heart attack Father Diabetes Surgical History Surgical History Hx of removal of cyst Social History Social History Household Members: Unknown / Unable to assess Household Members Other:: lives [facility] Housing: [facility] Housing Other:: [facility] Unable to assess alcohol history related to: Unable to respond Alcohol intake: never Comment: BEDFAST Patient Tobacco Use Status: Former Tobacco user Cigarette Packs Per Day: 1 Advance Directives Date on File: 10/13/20 service: Yes Current occupational status: retired Meds Allergies Allergy/AdvReac Type Severity Reaction Status Date / Time Benzodiazepines Allergy Unknown UNKNOWN Verified 07/10/25 16:36 (BENZODIAZEPINES) dalfampridine (From AMPYRA) Allergy Unknown UNKNOWN Verified 07/10/25 16:36 duloxetine (From CYMBALTA) Allergy Unknown UNKNOWN Verified 07/10/25 16:36 ezetimibe (From ZETIA) Allergy Unknown UNKNOWN Verified 07/10/25 16:36 niacin (NIACIN) Allergy Unknown UNKNOWN Verified 07/10/25 16:36 pravastatin (PRAVASTATIN) Allergy Unknown UNKNOWN Verified 07/10/25 16:36 [id number]-VNL-[id number] Reductase Allergy Unknown UNKNOWN Verified 07/10/25 16:36 Inhibitor ([id number] REDUCTASE INHIBITOR) lorazepam (From ATIVAN) AdvReac Severe EXCESSIVE Verified 07/10/25 16:36 SEDATION doxycycline (DOXYCYCLINE) AdvReac Mild esophogeal Verified 07/10/25 16:36 iritation methylprednisolone (From AdvReac Mild heartburn Verified 07/10/25 16:36 SOLU-MEDROL) ertapenem (From INVANZ) AdvReac Unknown possible Verified 07/10/25 16:36 cause of bullous pemphigoid Active Medications: Current Medications Acetaminophen (Acetaminophen 325 Mg Tablet) 650 mg PO Q6H PRN PRN Reason: Pain, Mild 1-3,fever,headache Last Admin: 07/11/25 03:15 Dose: 650 mg Acetaminophen (Acetaminophen 325 Mg Tablet) 650 mg PO BEDTIME [facility] Last Admin: 07/13/25 22:10 Dose: 650 mg Amlodipine Besylate (Amlodipine Besylate 10 Mg Tablet) 10 mg PO DAILY [facility]; Protocol Last Admin: 07/13/25 09:31 Dose: 10 mg Ascorbic Acid (Ascorbic Acid 500 Mg Tablet) 500 mg PO DAILY [facility] Last Admin: 07/13/25 09:24 Dose: 500 mg Aspirin (Aspirin Enteric Coated 81 Mg Tablet.) 81 mg PO DAILY [facility] Last Admin: 07/13/25 09:23 Dose: 81 mg Atorvastatin Calcium (Atorvastatin Calcium 10 Mg Tablet) 10 mg PO DAILY [facility] Last Admin: 07/13/25 09:24 Dose: 10 mg Bacitracin (Bacitracin Oint 14 Gm Tube) 1 appl TOPICAL BID [facility], [facility]; Protocol Last Admin: 07/13/25 22:13 Dose: 1 appl Bisacodyl (Bisacodyl 5 Mg Tablet.) 5 mg PO DAILY PRN PRN Reason: Constipation Bisacodyl (Bisacodyl 10 Mg Supp.Rect) 10 mg NE DAILY PRN PRN Reason: Constipation Bisacodyl (Bisacodyl 10 Mg Supp.Rect) 10 mg NE Q3D [facility] Last Admin: 07/12/25 15:35 Dose: 10 mg Bismuth Subsalicylate (Bismuth Subsalicylate Liquid 524 Mg/30 Ml Oral.Susp) 524 mg PO Q8H PRN PRN Reason: UPSET STOMACH/NAUSEA Calcium Carbonate (Calcium Carbonate 750 Mg Tab.Chew) 750 mg PO Q4H PRN PRN Reason: Heartburn Last Admin: 07/12/25 03:39 Dose: 750 mg Carvedilol (Carvedilol 6.25 Mg Tablet) 6.25 mg PO BID [facility]; Protocol Last Admin: 07/13/25 22:11 Dose: 6.25 mg Dextrose (Dextrose 50 % 25 Gm/50 Ml Syringe) 25 gm IVPUSH Q15M PRN; Protocol PRN Reason: per Hypoglycemia Standing Ord. Docusate Sodium (Docusate Sodium 100 Mg Capsule) 200 mg PO BID [facility] Last Admin: 07/13/25 22:11 Dose: 200 mg Enoxaparin Sodium (Enoxaparin Sodium 40 Mg/0.4 Ml Syringe) 40 mg SUBCUT Q24H [facility] Last Admin: 07/12/25 23:47 Dose: 40 mg Famotidine (Famotidine 20 Mg Tablet) 20 mg PO DAILY [facility] Last Admin: 07/13/25 09:24 Dose: 20 mg Ferrous Sulfate (Ferrous Sulfate 324 Mg Tablet.Dr) 324 mg PO DAILY [facility] Last Admin: 07/13/25 09:25 Dose: 324 mg Folic Acid (Folic Acid 1 Mg Tablet) 1 mg PO SUTUWETHFRSA [facility] Last Admin: 07/13/25 17:02 Dose: 1 mg Gabapentin (Gabapentin 300 Mg Capsule) 300 mg PO TID [facility] Last Admin: 07/13/25 22:11 Dose: 300 mg Glucose (Glucose Gel 15 Gm Gel..Gram.) 15 gm PO Q15M PRN; Protocol PRN Reason: per Hypoglycemia Standing Ord. Guaifenesin (Guaifenesin 200 Mg/10 Ml 10 Ml Liquid) 10 ml PO Q4H PRN PRN Reason: Cough Guaifenesin (Guaifenesin La 600 Mg Tab.Er.12h) 600 mg PO Q12H PRN PRN Reason: Cold Symptoms Vancomycin HCl 1,250 mg/ (Sodium Chloride) 250 mls @ 166.667 mls/hr IV Q24H [facility] Last Admin: 07/13/25 22:10 Dose: 166.67 mls/hr Insulin Human Lispro (Insulin Lispro 100 Unit/Ml 3 Ml Vial) 0 unit SUBCUT QIDACHS [facility], [facility]; Protocol Last Admin: 07/13/25 22:11 Dose: Not Given Lactulose (Lactulose 20 Gm/30 Ml Solution) 20 gm PO DAILY [facility] Last Admin: 07/13/25 09:26 Dose: 20 gm Lidocaine HCl (Lidocaine Hcl Viscous 2 % 15 Ml Solution) 15 ml MUCOUS MEM Q3H PRN PRN Reason: Dyspepsia Last Admin: 07/11/25 06:28 Dose: 15 ml Loperamide HCl (Loperamide Hcl 2 Mg Capsule) 2 mg PO Q4H PRN PRN Reason: Diarrhea Last Admin: 07/13/25 22:35 Dose: 2 mg Magnesium Hydroxide (Milk Of Magnesia 30 Ml Oral.Susp) 30 ml PO DAILY PRN PRN Reason: Constipation Magnesium Hydroxide (Milk Of Magnesia 30 Ml Oral.Susp) 30 ml PO BEDTIME PRN PRN Reason: Constipation Melatonin (Melatonin 3 Mg Tablet) 6 mg PO BEDTIME PRN PRN Reason: Insomnia Last Admin: 07/11/25 03:45 Dose: 6 mg Meropenem (Meropenem 1 Gm Vial) 1 gm IVPUSH Q12H [facility] Last Admin: 07/13/25 22:10 Dose: 1 gm Methotrexate (Methotrexate Sodium 2.5 Mg Tablet) 15 mg PO MO [facility] Last Admin: 07/11/25 22:05 Dose: 15 mg Ondansetron HCl (Ondansetron Hcl 4 Mg/2 Ml Vial) 4 mg IVPUSH Q8H PRN PRN Reason: Nausea and Vomiting Last Admin: 07/11/25 21:02 Dose: 4 mg Pantoprazole Sodium (Pantoprazole Sodium 40 Mg/10 Ml Vial) 40 mg IVPUSH BID@0630,1630 [facility] Last Admin: 07/13/25 15:54 Dose: 40 mg Pharmacy Consult (Consult Rx Vancomycin Dosing) 1 each MISCELLANE DAILY PRN PRN Reason: Consult order Polyethylene Glycol (Polyethylene Glycol 3350 17 Gm Powd.Pack) 17 gm PO DAILY [facility] Last Admin: 07/13/25 09:26 Dose: 17 gm Prednisone (Prednisone 2.5 Mg Tablet) 2.5 mg PO DAILY [facility] Last Admin: 07/13/25 09:23 Dose: 2.5 mg Sodium Biphosphate/Sodium Phosphate (Sodium Phosphate,[place]-Dibasic 133 Ml Enema) 118 ml NE DAILY PRN PRN Reason: Constipation Sodium Chloride (0.9 % Sodium Chloride Flush 3 Ml Syringe) 3 ml IVFLUSH QSHIFT [facility] Last Admin: 07/13/25 22:12 Dose: 3 ml Tramadol HCl (Tramadol Hcl 50 Mg Tablet) 50 mg PO BEDTIME PRN PRN Reason: moderate to severe pain Last Admin: 07/12/25 03:38 Dose: 50 mg Trazodone HCl (Trazodone Hcl 50 Mg Tablet) 50 mg PO BEDTIME [facility] Last Admin: 07/13/25 22:11 Dose: 50 mg Vitamin D (Cholecalciferol (Vitamin D3) 25 Mcg Tablet) 25 mcg PO DAILY [facility] Last Admin: 07/13/25 09:23 Dose: 25 mcg Home Medications ?Medication ?Instructions ?Recorded ?Confirmed ?Last Taken ?Type tramadol 50 mg tablet 50 mg PO BEDTIME PRN moderate to 10/09/20 07/11/25 Unknown History severe pain acetaminophen 325 mg tablet 650 mg PO Q4H PRN pain or fever 03/13/21 07/11/25 Unknown History rosuvastatin 10 mg tablet 10 mg PO DAILY 03/13/21 07/11/25 Unknown History Held on 06/11/24. Instructions: Resume on 06/14/24. guaifenesin 100 mg/5 mL oral 200 mg PO Q4H PRN Cough 05/19/21 07/11/25 Unknown History liquid (Diabetic Tussin EX) prednisone 2.5 mg tablet 2.5 mg PO DAILY 05/19/21 07/11/25 Unknown History amlodipine 10 mg tablet 10 mg PO DAILY 11/16/23 07/11/25 Unknown History bismuth subsalicylate 262 mg/15 mL 524 mg PO Q8H PRN UPSET 11/16/23 07/11/25 Unknown History oral suspension (Pepto-Bismol) STOMACH/NAUSEA ceramides 1,3,6-II (CeraVe topical 1 appl topical BID Dry Skin 11/16/23 07/11/25 Unknown History cream) docusate sodium 100 mg capsule 200 mg PO BID 11/16/23 07/11/25 Unknown History (Colace) famotidine 20 mg tablet 20 mg PO DAILY 11/16/23 07/11/25 Unknown History folic acid 1 mg tablet 1 mg PO SUTUWETHFRSA 11/16/23 07/11/25 Unknown History insulin glargine-yfgn 100 unit/mL 3 unit subcut BEDTIME 11/16/23 07/11/25 Unknown History subcutaneous solution lactulose 10 gram/15 mL oral 30 ml PO DAILY 11/16/23 07/11/25 Unknown History solution (Enulose) melatonin 5 mg tablet 5 mg PO BEDTIME PRN Insomnia 11/16/23 07/11/25 Unknown History polyethylene glycol 3350 17 17 g PO DAILY 11/16/23 07/11/25 Unknown History gram/dose oral powder (Miralax) methotrexate sodium 2.5 mg tablet 15 mg PO MO 02/25/24 07/11/25 Unknown History bisacodyl 5 mg tablet 5 mg PO DAILY PRN Constipation 03/31/24 07/11/25 Unknown History aspirin 81 mg tablet,delayed 81 mg PO DAILY 04/23/24 07/11/25 Unknown History release bisacodyl 10 mg rectal suppository 10 mg NE DAILY PRN Constipation 04/23/24 07/11/25 Unknown History bisacodyl 10 mg rectal suppository 10 mg NE Q3D 04/23/24 07/11/25 Unknown History guaifenesin 600 mg tablet, 600 mg PO Q12H PRN Cold Symptoms 04/23/24 07/11/25 Unknown History extended release 12 hr (Mucinex) sodium phosphates 19 gram-7 118 ml NE DAILY PRN Constipation 04/23/24 07/11/25 Unknown History gram/118 mL enema (Fleet Enema) acetaminophen 325 mg tablet 650 mg PO BEDTIME 07/11/25 07/11/25 Unknown History ascorbic acid (vitamin C) 500 mg 500 mg PO DAILY 07/11/25 07/11/25 Unknown History tablet (Vitamin C) bacitracin 500 unit/gram topical 1 appl topical BID 07/11/25 07/11/25 Unknown History ointment cholecalciferol (vitamin D3) 25 25 mcg PO DAILY 07/11/25 07/11/25 Unknown History mcg (1,000 unit) tablet (Vitamin D3) ferrous sulfate 325 mg (65 mg 325 mg PO DAILY 07/11/25 07/11/25 Unknown History iron) tablet insulin lispro 100 unit/mL See Protocol subcut BID 07/11/25 07/11/25 Unknown History subcutaneous solution (Admelog U-100 Insulin lispro) magnesium hydroxide 400 mg/5 mL 30 ml PO BEDTIME PRN Constipation 07/11/25 07/11/25 Unknown History oral suspension (Milk of Magnesia) trazodone 50 mg tablet 50 mg PO BEDTIME 07/11/25 07/11/25 Unknown History Physical Exam Vital Signs: Vital Signs: Last Vital Signs Temp 96.6 F L 07/13/25 19:40 Pulse 80 07/13/25 19:40 Resp 18 07/13/25 19:40 BP 147/76 H 07/13/25 19:40 Pulse Ox 95 07/13/25 19:40 O2 Del Method Room Air 07/13/25 19:40 O2 Flow Rate 2 07/12/25 08:37 BMI result Body Mass Index 25.1 Const: General: cooperative HEENT: Head: Yes normal to inspection Face and sinus: Yes normal facial exam Mouth: Normal oral and palatal mucosa present Teeth and gingiva: dentition normal Eyes: General: appearance normal, both eyes and all related structures Pupils: Equal, round and reactive pupils present Resp: Effort & Inspection: normal respiratory effort Cardio: Rate: regular rate Rhythm: regular rhythm GI: Palpation (GI): Soft to palpation and nontender : General: Yes no CVA tenderness Back/Spine/Pelvis: Back: no CVA tenderness Skin: General skin exam: no rashes or lesions noted Neuro: General: moves all extremities Cranial nerves: Yes Equal, round and reactive pupils present Extrem: Other: shiny feet pulses Psych: Appearance: grossly normal Results Labs 07/12/25 09:13 07/13/25 08:48 Labs: BMP 07/13/25 08:48 Creatinine 0.97 Microbiology Microbiology Results: Microbiology 07/10/25 20:00 Blood - Venous Blood Culture - Preliminary Staphylococcus aureus 07/10/25 20:01 Blood - Venous Blood Culture - Preliminary Staphylococcus aureus Assessment and Plan (1) Sepsis: Status: Acute (2) Gram-positive cocci bacteremia: Status: Acute Plan Possibly staph aureus bacteremia from pemphigoid IV Vancomycin Hold other antibiotics like Merem if no urinary organism found. Stop Bacitracin to feet as not useful daily
--- NOTE | 2025-07-14 | ECG_ITS ---
Test Reason : chest pain Blood Pressure : */* mmHG Vent. Rate : 98 BPM Atrial Rate : 98 BPM P-R Int : 158 ms QRS Dur : 88 ms QT Int : 402 ms P-R-T Axes : 47 32 268 degrees QTcB Int : 513 ms Sinus rhythm with frequent Premature ventricular complexes ST & T wave abnormality, consider inferolateral ischemia Abnormal ECG When compared with ECG of 12-Jul-2025 10:50, ST less elevated in Inferior leads Non-specific change in ST segment in Lateral leads Referred By: Juan Sykes Electronically Signed By: Austen Castaneda
[2025-07-14 03:01] VITALS: BP 148/68; PULSE 75; RESP 18; TEMP 36.1; O2SAT 96
[2025-07-14 07:17] LABS: Glucose, Whole Blood 74 mg/dL (60-115)
[2025-07-14 07:52] VITALS: BP 162/68; PULSE 95; RESP 17; TEMP 36.1; O2SAT 97
--- NOTE | 2025-07-14 08:36 | HO.PM.IMPN ---
Subjective Subjective Date of Service: 07/14/25 Interval History: Doing well with no new issues, no confusion Physical Exam Exam: Exam: General: AO X 3, no acute distress Resp: CTA bilateral CVS: S1,S2,RRR GI: +BS, NT, no distention Skin: some redness on feet--chronic Neuro: motor grossly intact Psych: appropriate affect Vital Signs: Vital Signs: Last Vital Signs Temp 96.9 F 07/14/25 07:52 Pulse 95 07/14/25 07:52 Resp 17 07/14/25 07:52 BP 162/68 H 07/14/25 07:52 Pulse Ox 97 07/14/25 07:52 O2 Del Method Room Air 07/14/25 07:52 O2 Flow Rate 2 07/12/25 08:37 BMI result Body Mass Index 25.1 Objective Data Active Medications Acetaminophen (Acetaminophen 325 Mg Tablet) 650 mg PO Q6H PRN PRN Reason: Pain, Mild 1-3,fever,headache Last Admin: 07/11/25 03:15 Dose: 650 mg Documented By: DOROTHEA Acetaminophen (Acetaminophen 325 Mg Tablet) 650 mg PO BEDTIME [facility] Last Admin: 07/13/25 22:10 Dose: 650 mg Documented By: CARMELINA Amlodipine Besylate (Amlodipine Besylate 10 Mg Tablet) 10 mg PO DAILY [facility]; Protocol Last Admin: 07/13/25 09:31 Dose: 10 mg Documented By: NOMAN Ascorbic Acid (Ascorbic Acid 500 Mg Tablet) 500 mg PO DAILY [facility] Last Admin: 07/13/25 09:24 Dose: 500 mg Documented By: NOMAN Aspirin (Aspirin Enteric Coated 81 Mg Tablet.) 81 mg PO DAILY [facility] Last Admin: 07/13/25 09:23 Dose: 81 mg Documented By: NOMAN Atorvastatin Calcium (Atorvastatin Calcium 10 Mg Tablet) 10 mg PO DAILY [facility] Last Admin: 07/13/25 09:24 Dose: 10 mg Documented By: NOMAN Bisacodyl (Bisacodyl 5 Mg Tablet.) 5 mg PO DAILY PRN PRN Reason: Constipation Bisacodyl (Bisacodyl 10 Mg Supp.Rect) 10 mg VT DAILY PRN PRN Reason: Constipation Bisacodyl (Bisacodyl 10 Mg Supp.Rect) 10 mg VT Q3D [facility] Last Admin: 07/12/25 15:35 Dose: 10 mg Documented By: MP Bismuth Subsalicylate (Bismuth Subsalicylate Liquid 524 Mg/30 Ml Oral.Susp) 524 mg PO Q8H PRN PRN Reason: UPSET STOMACH/NAUSEA Calcium Carbonate (Calcium Carbonate 750 Mg Tab.Chew) 750 mg PO Q4H PRN PRN Reason: Heartburn Last Admin: 07/12/25 03:39 Dose: 750 mg Documented By: WONG Carvedilol (Carvedilol 6.25 Mg Tablet) 6.25 mg PO BID [facility]; Protocol Last Admin: 07/13/25 22:11 Dose: 6.25 mg Documented By: CARMELINA Dextrose (Dextrose 50 % 25 Gm/50 Ml Syringe) 25 gm IVPUSH Q15M PRN; Protocol PRN Reason: per Hypoglycemia Standing Ord. Docusate Sodium (Docusate Sodium 100 Mg Capsule) 200 mg PO BID [facility] Last Admin: 07/13/25 22:11 Dose: 200 mg Documented By: CARMELINA Enoxaparin Sodium (Enoxaparin Sodium 40 Mg/0.4 Ml Syringe) 40 mg SUBCUT Q24H [facility] Last Admin: 07/13/25 23:33 Dose: 40 mg Documented By: CARMELINA Famotidine (Famotidine 20 Mg Tablet) 20 mg PO DAILY [facility] Last Admin: 07/13/25 09:24 Dose: 20 mg Documented By: NOMAN Ferrous Sulfate (Ferrous Sulfate 324 Mg Tablet.Dr) 324 mg PO DAILY [facility] Last Admin: 07/13/25 09:25 Dose: 324 mg Documented By: NOMAN Folic Acid (Folic Acid 1 Mg Tablet) 1 mg PO SUTUWETHFRSA [facility] Last Admin: 07/13/25 17:02 Dose: 1 mg Documented By: NOMAN Gabapentin (Gabapentin 300 Mg Capsule) 300 mg PO TID [facility] Last Admin: 07/13/25 22:11 Dose: 300 mg Documented By: CARMELINA Glucose (Glucose Gel 15 Gm Gel..Gram.) 15 gm PO Q15M PRN; Protocol PRN Reason: per Hypoglycemia Standing Ord. Guaifenesin (Guaifenesin 200 Mg/10 Ml 10 Ml Liquid) 10 ml PO Q4H PRN PRN Reason: Cough Guaifenesin (Guaifenesin La 600 Mg Tab.Er.12h) 600 mg PO Q12H PRN PRN Reason: Cold Symptoms Vancomycin HCl 1,250 mg/ (Sodium Chloride) 250 mls @ 166.667 mls/hr IV Q24H [facility] Last Infusion: 07/13/25 23:48 Dose: Infused Documented By: CARMELINA Insulin Human Lispro (Insulin Lispro 100 Unit/Ml 3 Ml Vial) 0 unit SUBCUT QIDACHS [facility]; Protocol Last Admin: 07/14/25 07:46 Dose: Not Given Documented By: CLEOPATRA Non-Admin Reason: No Insulin Coverage Lactulose (Lactulose 20 Gm/30 Ml Solution) 20 gm PO DAILY [facility] Last Admin: 07/13/25 09:26 Dose: 20 gm Documented By: NOMAN Lidocaine HCl (Lidocaine Hcl Viscous 2 % 15 Ml Solution) 15 ml MUCOUS MEM Q3H PRN PRN Reason: Dyspepsia Last Admin: 07/11/25 06:28 Dose: 15 ml Documented By: DOROTHEA Loperamide HCl (Loperamide Hcl 2 Mg Capsule) 2 mg PO Q4H PRN PRN Reason: Diarrhea Last Admin: 07/13/25 22:35 Dose: 2 mg Documented By: CARMELINA Magnesium Hydroxide (Milk Of Magnesia 30 Ml Oral.Susp) 30 ml PO DAILY PRN PRN Reason: Constipation Magnesium Hydroxide (Milk Of Magnesia 30 Ml Oral.Susp) 30 ml PO BEDTIME PRN PRN Reason: Constipation Melatonin (Melatonin 3 Mg Tablet) 6 mg PO BEDTIME PRN PRN Reason: Insomnia Last Admin: 07/11/25 03:45 Dose: 6 mg Documented By: DOROTHEA Meropenem (Meropenem 1 Gm Vial) 1 gm IVPUSH Q12H [facility] Last Admin: 07/13/25 22:10 Dose: 1 gm Documented By: CARMELINA Methotrexate (Methotrexate Sodium 2.5 Mg Tablet) 15 mg PO MO [facility] Last Admin: 07/11/25 22:05 Dose: 15 mg Documented By: WONG Ondansetron HCl (Ondansetron Hcl 4 Mg/2 Ml Vial) 4 mg IVPUSH Q8H PRN PRN Reason: Nausea and Vomiting Last Admin: 07/11/25 21:02 Dose: 4 mg Documented By: WONG Comments: early dose per provider Pantoprazole Sodium (Pantoprazole Sodium 40 Mg/10 Ml Vial) 40 mg IVPUSH BID@5804,9560 [facility] Last Admin: 07/14/25 06:46 Dose: 40 mg Documented By: CARMELINA Pharmacy Consult (Consult Rx Vancomycin Dosing) 1 each MISCELLANE DAILY PRN PRN Reason: Consult order Polyethylene Glycol (Polyethylene Glycol 3350 17 Gm Powd.Pack) 17 gm PO DAILY [facility] Last Admin: 07/13/25 09:26 Dose: 17 gm Documented By: NOMAN Prednisone (Prednisone 2.5 Mg Tablet) 2.5 mg PO DAILY [facility] Last Admin: 07/13/25 09:23 Dose: 2.5 mg Documented By: NOMAN Sodium Biphosphate/Sodium Phosphate (Sodium Phosphate,[place]-Dibasic 133 Ml Enema) 118 ml VT DAILY PRN PRN Reason: Constipation Sodium Chloride (0.9 % Sodium Chloride Flush 3 Ml Syringe) 3 ml IVFLUSH QSHIFT [facility] Last Admin: 07/13/25 22:12 Dose: 3 ml Documented By: CARMELINA Tramadol HCl (Tramadol Hcl 50 Mg Tablet) 50 mg PO BEDTIME PRN PRN Reason: moderate to severe pain Last Admin: 07/12/25 03:38 Dose: 50 mg Documented By: WONG Trazodone HCl (Trazodone Hcl 50 Mg Tablet) 50 mg PO BEDTIME [facility] Last Admin: 07/13/25 22:11 Dose: 50 mg Documented By: CARMELINA Vitamin D (Cholecalciferol (Vitamin D3) 25 Mcg Tablet) 25 mcg PO DAILY [facility] Last Admin: 07/13/25 09:23 Dose: 25 mcg Documented By: NOMAN Labs 07/12/25 09:13 07/13/25 08:48 Labs: Laboratory Results - last 24 hr 07/13/25 07/13/25 07/13/25 08:48 11:07 15:05 Estim Creat Clear Calc 68.8 Estimated GFR > 60 POC Glucose 116 H Random Vancomycin C. difficile Tox B Gene NEGATIVE 07/13/25 07/13/25 07/13/25 16:14 19:57 20:27 Estim Creat Clear Calc Estimated GFR POC Glucose 154 H 117 H Random Vancomycin 17.8 C. difficile Tox B Gene 07/14/25 07:06 Estim Creat Clear Calc Estimated GFR POC Glucose 74 Random Vancomycin C. difficile Tox B Gene Microbiology Microbiology Results: Microbiology 07/10/25 20:00 Blood Culture - Preliminary Blood - Venous Staphylococcus aureus 07/10/25 20:01 Blood Culture - Preliminary Blood - Venous Staphylococcus aureus Assessment and Plan (1) Chronic indwelling Carty catheter: Status: Acute (2) Neurogenic bladder: Status: Acute (3) Gram-positive cocci bacteremia: Status: Acute Plan 80-year-old chronically bed bound male, resident of [facility] with pertinent history of bullous pemphigoid, MS, chronic Carty, mood disorder, insulin-dependent type 2 diabetes mellitus, mixed hyperlipidemia, hypertension who was sent to the emergency department for evaluation of altered mentation. Sepsis d/t UTI asssociated with chronic carty cath, and staph aureus bacteremia, likely from Bullous pemphigoid Urine culture pending, h/o ESBL BCx --S. Aureeus, sensitivity pending, but +MRSA by PCR -continue Meropenem for UTI if negative culture then dc -continue Vanco for GPC bacteremia -Echocardiogram no vegetations -ID consult recommends Vanco -overall doing well, WBC down significantly Acute metabolic encephalopathy d/t above resolved Replacement of Carty catheter: Urology replaced, US guided, difficult placement had some bleeding issues as a result, surgery if SBO ?Brown/red vomit, discharge found on bed pad per nursing IV PPI GI consult--KUB 07/12--Marked gaseous distention of the stomach. Findings could represent gastric outlet obstruction. CT 07/12--1. Wall thickening of the distal large intestine including rectum is nonspecific. Differential considerations include colitis and proctitis. Other bowel wall pathology not excluded by CT. 2. No small bowel obstruction. 3. Small bilateral pleural effusions with underlying atelectasis and/or consolidation of the imaged lung bases, left worse than right. Differential considerations include pneumonia. Please consider attention on follow-up to ensure resolution. -If colitis above Abx should be ok advance diet Acute kidney injury stage I: Fine Arts Chair. 1.6 --> 0.97, resolved Anemia of chronic disease: Hemoglobin above transfusion threshold Bullous pemphigoid: Continue methotrexate, prednisone mixed hyperlipidemia Statin Hypertension Coreg and Amlodinpine, hold if BP low Insulin-dependent type 2 diabetes mellitus: Sliding scale insulin NPO, ADA diet when eating DVT prophylaxis: Lovenox Full code. Discussed with patient and over the phone Quality Stroke Does the patient have a stroke diagnosis?: No VTE Prior VTE?: No VTE Risk Level:: Medical - moderate - high VTE Device Contraindication: Treatment Not Indicated VTE Drug Contraindication: N/A - Med Ordered
[2025-07-14 08:38] LABS: Hematocrit 27.9 % (42.0-52.0); Hemoglobin 9.6 g/dl (14.0-18.0); Mean Corpuscular HGB Conc 34.4 g/dl (31.0-36.0); Mean Corpuscular Hemoglobin 32.7 pg (27.0-33.0); Mean Corpuscular Volume 94.9 fL (80.0-98.0); NRBC Abs Auto 0.000 X10*3/uL (0.0-0.012); NRBC Pct Auto 0.0 /100WBC (0.0-0.2); Platelet Count 127 X10*3/uL (160-400); Red Blood Count 2.94 X10*6/uL (4.60-5.80); White Blood Count 13.6 X10*3/uL (4.8-10.8)
[2025-07-14] MEDS: 0.9 % Sodium Chloride Flush 3 ML SYRINGE IVFLUSH ×2 (08:46→22:51)
[2025-07-14 08:53] LABS: Anion Gap 15 (12-20); Blood Urea Nitrogen 37 mg/dL (9-16); Calcium 8.4 mg/dL (8.4-10.2); Carbon Dioxide 21 mmol/L (22-29); Chloride 108 mmol/L (96-108); Creatinine Clr Calc Pharmacy 59.1; Estimated Glomerular Filt Rate > 60; Potassium 3.2 mmol/L (3.3-5.1); Sodium 141 mmol/L (135-145)
[2025-07-14] MEDS: Aspirin Enteric Coated 81 MG TABLET.DR PO (08:55)
[2025-07-14] MEDS: Ferrous Sulfate 324 MG TABLET.DR PO (08:57)
[2025-07-14 11:38] LABS: Glucose, Whole Blood 82 mg/dL (60-115)
[2025-07-14] MEDS: Lidocaine HCl Viscous 2 % 15 ML SOLUTION MUCOUS MEM (13:38)
[2025-07-14 15:07] VITALS: BP 164/74; PULSE 95; RESP 16; TEMP 36.1; O2SAT 95
[2025-07-14 16:07] LABS: Glucose, Whole Blood 100 mg/dL (60-115)
[2025-07-14 19:08] VITALS: BP 160/70; PULSE 88; RESP 16; TEMP 36.1; O2SAT 97
[2025-07-14 20:26] LABS: Glucose, Whole Blood 111 mg/dL (60-115)
[2025-07-15] MEDS: guaiFENesin 200 MG/10 ML 10 ML LIQUID PO (02:42)
[2025-07-15 03:26] VITALS: BP 148/70; PULSE 92; RESP 16; TEMP 36.3; O2SAT 95
[2025-07-15 06:38] LABS: Hematocrit 27.7 % (42.0-52.0); Hemoglobin 9.7 g/dl (14.0-18.0); Mean Corpuscular HGB Conc 35.0 g/dl (31.0-36.0); Mean Corpuscular Hemoglobin 32.7 pg (27.0-33.0); Mean Corpuscular Volume 93.3 fL (80.0-98.0); NRBC Abs Auto 0.000 X10*3/uL (0.0-0.012); NRBC Pct Auto 0.0 /100WBC (0.0-0.2); Platelet Count 106 X10*3/uL (160-400); Red Blood Count 2.97 X10*6/uL (4.60-5.80); White Blood Count 8.1 X10*3/uL (4.8-10.8)
[2025-07-15 06:59] LABS: Anion Gap 16 (12-20); Blood Urea Nitrogen 43 mg/dL (9-16); Calcium 8.3 mg/dL (8.4-10.2); Carbon Dioxide 19 mmol/L (22-29); Chloride 107 mmol/L (96-108); Creatinine Clr Calc Pharmacy 61.8; Estimated Glomerular Filt Rate > 60; Potassium 3.1 mmol/L (3.3-5.1); Sodium 139 mmol/L (135-145)
[2025-07-15] MEDS: 0.9 % Sodium Chloride Flush 3 ML SYRINGE IVFLUSH ×2 (07:22→21:23)
[2025-07-15 07:31] LABS: Glucose, Whole Blood 91 mg/dL (60-115)
[2025-07-15 07:39] VITALS: BP 141/64; PULSE 88; RESP 17; TEMP 36; O2SAT 96
[2025-07-15] MEDS: Potassium Chloride ER 20 MEQ TAB.ER.PRT 40 MEQ PO (08:35)
[2025-07-15] MEDS: Ferrous Sulfate 324 MG TABLET.DR PO (08:37)
[2025-07-15] MEDS: Aspirin Enteric Coated 81 MG TABLET.DR PO (08:37)
[2025-07-15 08:42] LABS: Magnesium 2.1 mg/dL (1.6-2.6)
--- NOTE | 2025-07-15 09:22 | HO.PM.IMPN ---
Subjective Subjective Date of Service: 07/15/25 Interval History: c/o some abdominal pain similar to prior, doesn't look uncomfortable Physical Exam Exam: Exam: General: AO X 3, no acute distress Resp: CTA bilateral CVS: S1,S2,RRR GI: +BS, NT, no distention Skin: some redness on feet--chronic Neuro: motor grossly intact Psych: appropriate affect Vital Signs: Vital Signs: Last Vital Signs Temp 96.8 F 07/15/25 07:39 Pulse 88 07/15/25 07:39 Resp 17 07/15/25 07:39 BP 141/64 H 07/15/25 07:39 Pulse Ox 96 07/15/25 07:39 O2 Del Method Room Air 07/15/25 07:39 O2 Flow Rate 2 07/12/25 08:37 BMI result Body Mass Index 25.1 Objective Data Active Medications Acetaminophen (Acetaminophen 325 Mg Tablet) 650 mg PO Q6H PRN PRN Reason: Pain, Mild 1-3,fever,headache Last Admin: 07/11/25 03:15 Dose: 650 mg Documented By: DOROTHEA Acetaminophen (Acetaminophen 325 Mg Tablet) 650 mg PO BEDTIME [facility] Last Admin: 07/14/25 21:17 Dose: 650 mg Documented By: BYRON Amlodipine Besylate (Amlodipine Besylate 10 Mg Tablet) 10 mg PO DAILY [facility]; Protocol Last Admin: 07/15/25 08:37 Dose: 10 mg Documented By: CHEN Ascorbic Acid (Ascorbic Acid 500 Mg Tablet) 500 mg PO DAILY [facility] Last Admin: 07/15/25 08:36 Dose: 500 mg Documented By: CHEN Aspirin (Aspirin Enteric Coated 81 Mg Tablet.) 81 mg PO DAILY [facility] Last Admin: 07/15/25 08:37 Dose: 81 mg Documented By: CHEN Atorvastatin Calcium (Atorvastatin Calcium 10 Mg Tablet) 10 mg PO DAILY [facility] Last Admin: 07/15/25 08:37 Dose: 10 mg Documented By: CHEN Bisacodyl (Bisacodyl 5 Mg Tablet.) 5 mg PO DAILY PRN PRN Reason: Constipation Bisacodyl (Bisacodyl 10 Mg Supp.Rect) 10 mg NC DAILY PRN PRN Reason: Constipation Bisacodyl (Bisacodyl 10 Mg Supp.Rect) 10 mg NC Q3D [facility] Last Admin: 07/12/25 15:35 Dose: 10 mg Documented By: MP Bismuth Subsalicylate (Bismuth Subsalicylate Liquid 524 Mg/30 Ml Oral.Susp) 524 mg PO Q8H PRN PRN Reason: UPSET STOMACH/NAUSEA Calcium Carbonate (Calcium Carbonate 750 Mg Tab.Chew) 750 mg PO Q4H PRN PRN Reason: Heartburn Last Admin: 07/12/25 03:39 Dose: 750 mg Documented By: WONG Carvedilol (Carvedilol 6.25 Mg Tablet) 6.25 mg PO BID [facility]; Protocol Last Admin: 07/15/25 08:37 Dose: 6.25 mg Documented By: CHEN Dextrose (Dextrose 50 % 25 Gm/50 Ml Syringe) 25 gm IVPUSH Q15M PRN; Protocol PRN Reason: per Hypoglycemia Standing Ord. Docusate Sodium (Docusate Sodium 100 Mg Capsule) 200 mg PO BID [facility] Last Admin: 07/15/25 08:37 Dose: 200 mg Documented By: CHEN Enoxaparin Sodium (Enoxaparin Sodium 40 Mg/0.4 Ml Syringe) 40 mg SUBCUT Q24H [facility] Last Admin: 07/14/25 22:51 Dose: 40 mg Documented By: BYRON Famotidine (Famotidine 20 Mg Tablet) 20 mg PO DAILY [facility] Last Admin: 07/15/25 08:37 Dose: 20 mg Documented By: CHEN Ferrous Sulfate (Ferrous Sulfate 324 Mg Tablet.Dr) 324 mg PO DAILY [facility] Last Admin: 07/15/25 08:37 Dose: 324 mg Documented By: CHEN Folic Acid (Folic Acid 1 Mg Tablet) 1 mg PO SUTUWETHFRSA [facility] Last Admin: 07/14/25 16:01 Dose: 1 mg Documented By: DOBROB Gabapentin (Gabapentin 300 Mg Capsule) 300 mg PO TID [facility] Last Admin: 07/15/25 08:37 Dose: 300 mg Documented By: CHEN Glucose (Glucose Gel 15 Gm Gel..Gram.) 15 gm PO Q15M PRN; Protocol PRN Reason: per Hypoglycemia Standing Ord. Guaifenesin (Guaifenesin 200 Mg/10 Ml 10 Ml Liquid) 10 ml PO Q4H PRN PRN Reason: Cough Last Admin: 07/15/25 02:42 Dose: 10 ml Documented By: BYRON Guaifenesin (Guaifenesin La 600 Mg Tab.Er.12h) 600 mg PO Q12H PRN PRN Reason: Cold Symptoms Vancomycin HCl 1,250 mg/ (Sodium Chloride) 250 mls @ 166.667 mls/hr IV Q24H [facility] Last Infusion: 07/14/25 22:50 Dose: Infused Documented By: BYRON Insulin Human Lispro (Insulin Lispro 100 Unit/Ml 3 Ml Vial) 0 unit SUBCUT QIDACHS [facility]; Protocol Last Admin: 07/15/25 07:36 Dose: Not Given Documented By: CHEN Non-Admin Reason: No Insulin Coverage Lactulose (Lactulose 20 Gm/30 Ml Solution) 20 gm PO DAILY [facility] Last Admin: 07/15/25 08:43 Dose: 20 gm Documented By: CHEN Lidocaine HCl (Lidocaine Hcl Viscous 2 % 15 Ml Solution) 15 ml MUCOUS MEM Q3H PRN PRN Reason: Dyspepsia Last Admin: 07/14/25 13:38 Dose: 15 ml Documented By: CLEOPATRA Loperamide HCl (Loperamide Hcl 2 Mg Capsule) 2 mg PO Q4H PRN PRN Reason: Diarrhea Last Admin: 07/13/25 22:35 Dose: 2 mg Documented By: CARMELINA Magnesium Hydroxide (Milk Of Magnesia 30 Ml Oral.Susp) 30 ml PO DAILY PRN PRN Reason: Constipation Magnesium Hydroxide (Milk Of Magnesia 30 Ml Oral.Susp) 30 ml PO BEDTIME PRN PRN Reason: Constipation Melatonin (Melatonin 3 Mg Tablet) 6 mg PO BEDTIME PRN PRN Reason: Insomnia Last Admin: 07/11/25 03:45 Dose: 6 mg Documented By: DOROTHEA Meropenem (Meropenem 1 Gm Vial) 1 gm IVPUSH Q12H [facility] Last Admin: 07/14/25 22:51 Dose: 1 gm Documented By: BYRON Methotrexate (Methotrexate Sodium 2.5 Mg Tablet) 15 mg PO MO [facility] Last Admin: 07/11/25 22:05 Dose: 15 mg Documented By: WONG Morphine Sulfate (Morphine Sulfate 2 Mg/Ml Cartridge) 1 mg IVPUSH Q4H PRN; Protocol PRN Reason: Pain, Severe (Pain Scale 7-10) Last Admin: 07/15/25 07:19 Dose: 1 mg Documented By: CHEN Ondansetron HCl (Ondansetron Hcl 4 Mg/2 Ml Vial) 4 mg IVPUSH Q8H PRN PRN Reason: Nausea and Vomiting Last Admin: 07/11/25 21:02 Dose: 4 mg Documented By: WONG Comments: early dose per provider Pharmacy Consult (Consult Rx Vancomycin Dosing) 1 each MISCELLANE DAILY PRN PRN Reason: Consult order Polyethylene Glycol (Polyethylene Glycol 3350 17 Gm Powd.Pack) 17 gm PO DAILY [facility] Last Admin: 07/15/25 08:39 Dose: 17 gm Documented By: CHEN Prednisone (Prednisone 2.5 Mg Tablet) 2.5 mg PO DAILY [facility] Last Admin: 07/14/25 09:01 Dose: 2.5 mg Documented By: CLEOPATRA Sodium Biphosphate/Sodium Phosphate (Sodium Phosphate,[place]-Dibasic 133 Ml Enema) 118 ml NC DAILY PRN PRN Reason: Constipation Sodium Chloride (0.9 % Sodium Chloride Flush 3 Ml Syringe) 3 ml IVFLUSH QSHIFT [facility] Last Admin: 07/15/25 07:22 Dose: 3 ml Documented By: CHEN Tramadol HCl (Tramadol Hcl 50 Mg Tablet) 50 mg PO BEDTIME PRN PRN Reason: moderate to severe pain Last Admin: 07/14/25 19:17 Dose: 50 mg Documented By: BYRON Trazodone HCl (Trazodone Hcl 50 Mg Tablet) 50 mg PO BEDTIME [facility] Last Admin: 07/14/25 21:16 Dose: 50 mg Documented By: BYRON Vitamin D (Cholecalciferol (Vitamin D3) 25 Mcg Tablet) 25 mcg PO DAILY [facility] Last Admin: 07/15/25 08:36 Dose: 25 mcg Documented By: CHEN Labs 07/15/25 06:22 07/15/25 06:22 Labs: Laboratory Results - last 24 hr 07/14/25 07/14/25 07/14/25 11:18 16:03 20:15 MCV MCH MCHC RDW Plt Count MPV Absolute Nucleated RBC Nucleated RBC % (auto) Anion Gap Estim Creat Clear Calc Estimated GFR POC Glucose 82 100 111 Random Glucose Calcium Magnesium 07/15/25 07/15/25 06:22 07:16 MCV 93.3 MCH 32.7 MCHC 35.0 RDW 16.1 H Plt Count 106 L MPV 10.2 Absolute Nucleated RBC 0.000 Nucleated RBC % (auto) 0.0 Anion Gap 16 Estim Creat Clear Calc 61.8 Estimated GFR > 60 POC Glucose 91 Random Glucose 88 Calcium 8.3 L Magnesium 2.1 Microbiology Microbiology Results: Microbiology 07/10/25 20:01 Blood Culture - Final Blood - Venous Methicillin Res Staph Aureus 07/10/25 20:00 Blood Culture - Final Blood - Venous Staphylococcus aureus Methicillin Res Staph Aureus Assessment and Plan (1) Chronic indwelling Carty catheter: Status: Acute (2) Neurogenic bladder: Status: Acute (3) Gram-positive cocci bacteremia: Status: Acute Plan 80-year-old chronically bed bound male, resident of [facility] with pertinent history of bullous pemphigoid, MS, chronic Carty, mood disorder, insulin-dependent type 2 diabetes mellitus, mixed hyperlipidemia, hypertension who was sent to the emergency department for evaluation of altered mentation. Sepsis d/t UTI asssociated with chronic carty cath, and staph aureus bacteremia, likely from Bullous pemphigoid Urine culture pending, h/o ESBL BCx --S. Aureeus, sensitivity pending, but +MRSA by PCR -continue Meropenem for UTI if negative culture then dc -continue Vanco for GPC bacteremia -Blood culture 07/14 pending -Echocardiogram no vegetations -ID consult recommends Vanco probably for 4 weeks -overall doing well, WBC has normalized Acute metabolic encephalopathy d/t above resolved Replacement of Carty catheter: Urology replaced, US guided, difficult placement ?Brown/red vomit, discharge found on bed pad per nursing Treated with IV PPI GI consult--KUB 07/12--Marked gaseous distention of the stomach. Findings could represent gastric outlet obstruction. CT 07/12--1. Wall thickening of the distal large intestine including rectum is nonspecific. Differential considerations include colitis and proctitis. Other bowel wall pathology not excluded by CT. 2. No small bowel obstruction. 3. Small bilateral pleural effusions with underlying atelectasis and/or consolidation of the imaged lung bases, left worse than right. Differential considerations include pneumonia. Please consider attention on follow-up to ensure resolution. -If colitis above Abx should be ok advance diet Acute kidney injury stage I: [employer]. 1.6 --> 0.97, resolved Anemia of chronic disease: Hemoglobin above transfusion threshold Bullous pemphigoid: Continue methotrexate, prednisone mixed hyperlipidemia Statin Hypertension Coreg and Amlodinpine, hold if BP low Insulin-dependent type 2 diabetes mellitus: Sliding scale insulin NPO, ADA diet when eating DVT prophylaxis: Lovenox Full code. Discussed with patient and over the phone Quality Stroke Does the patient have a stroke diagnosis?: No VTE Prior VTE?: No VTE Risk Level:: Medical - moderate - high VTE Device Contraindication: Treatment Not Indicated VTE Drug Contraindication: N/A - Med Ordered
[2025-07-15 11:12] LABS: Glucose, Whole Blood 98 mg/dL (60-115)
--- NOTE | 2025-07-15 11:16 | MHC.CLN ---
F/U DIET=CLEAR LIQUIDS. PO INTAKE VARIABLE. PRESSURE INJURY TO COCCYX. ADDING GELATEIN TID TO PROMOTE SKIN INTEGRITY AND IMPROVE NUTRITIONAL INTAKE. SUPPLEMENT PROVIDES 480 KCALS, 60 G PROTEIN. FOLLOW FOR DIET ADVANCEMENT, PO INTAKE AND SKIN INTEGRITY.
--- NOTE | 2025-07-15 15:04 | MHC.CM.PN ---
PER MD ROUNDS, PT EXPECTED TO REMAIN OVER THE WEEKEND DCP: RETURN TO [facility] VIA BLS
[2025-07-15 15:37] VITALS: BP 130/60; PULSE 83; RESP 17; TEMP 36; O2SAT 95
--- NOTE | 2025-07-15 15:49 | P.PNGI_ITS ---
Subjective Subjective Date of Service: 07/15/25 Interval History: Seen at bedside. Abd distention a bit worse today. Pt also reports conisderable pain and discomfort. Critical Care Time (minutes): 0 Physical Exam 2 Exam: Exam: elderly male pale appearing abd distended, slightly tender Vital Signs: Vital Signs: Last Vital Signs Temp 96.8 F 07/15/25 15:37 Pulse 83 07/15/25 15:37 Resp 17 07/15/25 15:37 BP 130/60 07/15/25 15:37 Pulse Ox 95 07/15/25 15:37 O2 Del Method Room Air 07/15/25 15:37 O2 Flow Rate 2 07/12/25 08:37 BMI result Body Mass Index 25.1 Objective Data Labs 07/15/25 06:22 07/15/25 06:22 Labs: Laboratory Results - last 24 hr 07/14/25 07/14/25 07/15/25 16:03 20:15 06:22 WBC 8.1 RBC 2.97 L Hgb 9.7 L Hct 27.7 L MCV 93.3 MCH 32.7 MCHC 35.0 RDW 16.1 H Plt Count 106 L MPV 10.2 Absolute Nucleated RBC 0.000 Nucleated RBC % (auto) 0.0 Sodium 139 Potassium 3.1 L Chloride 107 Carbon Dioxide 19 L Anion Gap 16 BUN 43 H Creatinine 1.08 Estim Creat Clear Calc 61.8 Estimated GFR > 60 POC Glucose 100 111 Random Glucose 88 Calcium 8.3 L Magnesium 2.1 07/15/25 07/15/25 07:16 11:06 WBC RBC Hgb Hct MCV MCH MCHC RDW Plt Count MPV Absolute Nucleated RBC Nucleated RBC % (auto) Sodium Potassium Chloride Carbon Dioxide Anion Gap BUN Creatinine Estim Creat Clear Calc Estimated GFR POC Glucose 91 98 Random Glucose Calcium Magnesium Microbiology Microbiology Results: Microbiology 07/14/25 09:51 Blood - Venous Blood Culture - Preliminary No growth after 24 hours. 07/10/25 20:01 Blood - Venous Blood Culture - Final Methicillin Res Staph Aureus 07/10/25 20:00 Blood - Venous Blood Culture - Final Staphylococcus aureus Methicillin Res Staph Aureus Procedures Date of Service Date of Service: 07/15/25 Progress Note: A&P Assessment and plan (1) Coffee ground emesis: Status: Acute (2) Gram-positive cocci bacteremia: Status: Acute (3) Proctitis: Status: Acute (4) MRSA bacteremia: Status: Acute Plan Pt with narrowing on D2 noted on CT with prox distention on stomach and duodenal sweep. Pt does not report any further N/V. Does have lower abd pain and proctitis on CT. Also with MRSA likely 2/2 skin translocation from active pemphigoid. Hospital course and CT 07/12 reviewed with the son David over the phone. Discussed that would recommend EGD and flex sig before pt leaves the hospital [facility] as pt will remain at risk for aspiration due to partial GOO and stomach distention. Son would like to discuss wth fam and let us know. Plan: - Consider NGT for decompression - EGD/flex sig tentatively planned for Friday - pending final decision from family. Time Spent With Patient Time: Total time managing care of this patient today ____ minutes. Quality Stroke Does the patient have a stroke diagnosis?: No VTE Prior VTE?: No VTE Risk Level:: Medical - moderate - high VTE Device Contraindication: Treatment Not Indicated VTE Drug Contraindication: N/A - Med Ordered
[2025-07-15 16:22] LABS: Glucose, Whole Blood 145 mg/dL (60-115)
[2025-07-15 19:12] VITALS: BP 126/56; PULSE 74; RESP 18; TEMP 36.1; O2SAT 97
[2025-07-15 20:35] LABS: Glucose, Whole Blood 134 mg/dL (60-115)
[2025-07-15 21:13] VITALS: BP 127/60; PULSE 73
--- NOTE | 2025-07-15 21:15 | HE.PHANOTE ---
RE: VANCO Trough returned high at 23.8. Holding for 13 hours and decreasing dose to 1000 mg q24h to ensure safety and efficacy. Predicted AUC of 541 and trough of 17.7. Next trough 07/16 @0900. Will continue to monitor renal function.
[2025-07-16] MEDS: Lidocaine HCl Viscous 2 % 15 ML SOLUTION MUCOUS MEM ×4 (00:17→23:30)
[2025-07-16 03:44] VITALS: BP 132/63; PULSE 78; RESP 16; TEMP 36.1; O2SAT 98
[2025-07-16 07:28] VITALS: BP 158/70; PULSE 83; RESP 18; TEMP 36; O2SAT 96
[2025-07-16 07:46] LABS: Glucose, Whole Blood 73 mg/dL (60-115)
--- NOTE | 2025-07-16 08:21 | P.PNIM_ITS ---
Subjective Subjective Date of Service: 07/16/25 Interval History: Abdominal distention, NGT inserted overnight he's complaining of sore throat and wants the tube out Physical Exam 2 Exam: Exam: General: AO X 3, no acute distress Resp: CTA bilateral CVS: S1,S2,RRR GI: +BS, mild tenderness, + distention Skin: some redness on feet--chronic Neuro: motor grossly intact Psych: appropriate affect Vital Signs: Vital Signs: Last Vital Signs Temp 96.8 F 07/16/25 07:28 Pulse 83 07/16/25 07:28 Resp 18 07/16/25 07:28 BP 158/70 H 07/16/25 07:28 Pulse Ox 96 07/16/25 07:28 O2 Del Method Room Air 07/16/25 07:28 O2 Flow Rate 2 07/12/25 08:37 BMI result Body Mass Index 25.1 Objective Data Active Medications Acetaminophen (Acetaminophen 325 Mg Tablet) 650 mg PO Q6H PRN PRN Reason: Pain, Mild 1-3,fever,headache Last Admin: 07/11/25 03:15 Dose: 650 mg Documented By: DOROTHEA Acetaminophen (Acetaminophen 325 Mg Tablet) 650 mg PO BEDTIME [facility] Last Admin: 07/15/25 21:12 Dose: 650 mg Documented By: ASHLEY Amlodipine Besylate (Amlodipine Besylate 10 Mg Tablet) 10 mg PO DAILY [facility]; Protocol Last Admin: 07/15/25 08:37 Dose: 10 mg Documented By: CHEN Ascorbic Acid (Ascorbic Acid 500 Mg Tablet) 500 mg PO DAILY [facility] Last Admin: 07/15/25 08:36 Dose: 500 mg Documented By: CHEN Aspirin (Aspirin Enteric Coated 81 Mg Tablet.) 81 mg PO DAILY [facility] Last Admin: 07/15/25 08:37 Dose: 81 mg Documented By: CHEN Atorvastatin Calcium (Atorvastatin Calcium 10 Mg Tablet) 10 mg PO DAILY [facility] Last Admin: 07/15/25 08:37 Dose: 10 mg Documented By: CHEN Bacitracin (Bacitracin Oint 14 Gm Tube) 1 appl TOPICAL BID [facility]; Protocol Last Admin: 07/15/25 23:19 Dose: 1 appl Documented By: ASHLEY Bisacodyl (Bisacodyl 5 Mg Tablet.) 5 mg PO DAILY PRN PRN Reason: Constipation Bisacodyl (Bisacodyl 10 Mg Supp.Rect) 10 mg AL DAILY PRN PRN Reason: Constipation Bisacodyl (Bisacodyl 10 Mg Supp.Rect) 10 mg AL Q3D [facility] Last Admin: 07/15/25 10:53 Dose: 10 mg Documented By: CHEN Bismuth Subsalicylate (Bismuth Subsalicylate Liquid 524 Mg/30 Ml Oral.Susp) 524 mg PO Q8H PRN PRN Reason: UPSET STOMACH/NAUSEA Calcium Carbonate (Calcium Carbonate 750 Mg Tab.Chew) 750 mg PO Q4H PRN PRN Reason: Heartburn Last Admin: 07/12/25 03:39 Dose: 750 mg Documented By: WONG Carvedilol (Carvedilol 6.25 Mg Tablet) 6.25 mg PO BID [facility]; Protocol Last Admin: 07/15/25 21:13 Dose: 6.25 mg Documented By: ASHLEY Dextrose (Dextrose 50 % 25 Gm/50 Ml Syringe) 25 gm IVPUSH Q15M PRN; Protocol PRN Reason: per Hypoglycemia Standing Ord. Docusate Sodium (Docusate Sodium 100 Mg Capsule) 200 mg PO BID [facility] Last Admin: 07/15/25 21:12 Dose: 200 mg Documented By: ASHLEY Enoxaparin Sodium (Enoxaparin Sodium 40 Mg/0.4 Ml Syringe) 40 mg SUBCUT Q24H [facility] Last Admin: 07/16/25 00:00 Dose: 40 mg Documented By: ASHLEY Famotidine (Famotidine 20 Mg Tablet) 20 mg PO DAILY [facility] Last Admin: 07/15/25 08:37 Dose: 20 mg Documented By: CHEN Ferrous Sulfate (Ferrous Sulfate 324 Mg Tablet.) 324 mg PO DAILY [facility] Last Admin: 07/15/25 08:37 Dose: 324 mg Documented By: CHEN Folic Acid (Folic Acid 1 Mg Tablet) 1 mg PO SUTUWETHFRSA [facility] Last Admin: 07/15/25 15:46 Dose: 1 mg Documented By: CHEN Gabapentin (Gabapentin 300 Mg Capsule) 300 mg PO TID [facility] Last Admin: 07/15/25 21:12 Dose: 300 mg Documented By: ASHLEY Glucose (Glucose Gel 15 Gm Gel..Gram.) 15 gm PO Q15M PRN; Protocol PRN Reason: per Hypoglycemia Standing Ord. Guaifenesin (Guaifenesin 200 Mg/10 Ml 10 Ml Liquid) 10 ml PO Q4H PRN PRN Reason: Cough Last Admin: 07/15/25 02:42 Dose: 10 ml Documented By: BYRON Guaifenesin (Guaifenesin La 600 Mg Tab.Er.12h) 600 mg PO Q12H PRN PRN Reason: Cold Symptoms Vancomycin HCl 1,000 mg/ (Sodium Chloride) 270 mls @ 270 mls/hr IV Q24H [facility] Insulin Human Lispro (Insulin Lispro 100 Unit/Ml 3 Ml Vial) 0 unit SUBCUT QIDACHS [facility]; Protocol Last Admin: 07/16/25 08:06 Dose: Not Given Documented By: CHEN Non-Admin Reason: No Insulin Coverage Lactulose (Lactulose 20 Gm/30 Ml Solution) 20 gm PO DAILY [facility] Last Admin: 07/15/25 08:43 Dose: 20 gm Documented By: CHEN Lidocaine HCl (Lidocaine Hcl Viscous 2 % 15 Ml Solution) 15 ml MUCOUS MEM Q3H PRN PRN Reason: Dyspepsia Last Admin: 07/16/25 00:17 Dose: 15 ml Documented By: ASHLEY Loperamide HCl (Loperamide Hcl 2 Mg Capsule) 2 mg PO Q4H PRN PRN Reason: Diarrhea Last Admin: 07/13/25 22:35 Dose: 2 mg Documented By: CARMELINA Magnesium Hydroxide (Milk Of Magnesia 30 Ml Oral.Susp) 30 ml PO DAILY PRN PRN Reason: Constipation Magnesium Hydroxide (Milk Of Magnesia 30 Ml Oral.Susp) 30 ml PO BEDTIME PRN PRN Reason: Constipation Melatonin (Melatonin 3 Mg Tablet) 6 mg PO BEDTIME PRN PRN Reason: Insomnia Last Admin: 07/11/25 03:45 Dose: 6 mg Documented By: DOROTHEA Meropenem (Meropenem 1 Gm Vial) 1 gm IVPUSH Q12H [facility] Last Admin: 07/15/25 23:19 Dose: 1 gm Documented By: ASHLEY Methotrexate (Methotrexate Sodium 2.5 Mg Tablet) 15 mg PO MO [facility] Last Admin: 07/11/25 22:05 Dose: 15 mg Documented By: WONG Morphine Sulfate (Morphine Sulfate 2 Mg/Ml Cartridge) 1 mg IVPUSH Q3H PRN; Protocol PRN Reason: Pain, Severe (Pain Scale 7-10) Last Admin: 07/15/25 14:48 Dose: 1 mg Documented By: CHEN Ondansetron HCl (Ondansetron Hcl 4 Mg/2 Ml Vial) 4 mg IVPUSH Q8H PRN PRN Reason: Nausea and Vomiting Last Admin: 07/11/25 21:02 Dose: 4 mg Documented By: WONG Comments: early dose per provider Pharmacy Consult (Consult Rx Vancomycin Dosing) 1 each MISCELLANE DAILY PRN PRN Reason: Consult order Polyethylene Glycol (Polyethylene Glycol 3350 17 Gm Powd.Pack) 17 gm PO DAILY [facility] Last Admin: 07/15/25 08:39 Dose: 17 gm Documented By: CHEN Prednisone (Prednisone 2.5 Mg Tablet) 2.5 mg PO DAILY [facility] Last Admin: 07/15/25 10:41 Dose: 2.5 mg Documented By: CHEN Sodium Biphosphate/Sodium Phosphate (Sodium Phosphate,[place]-Dibasic 133 Ml Enema) 118 ml AL DAILY PRN PRN Reason: Constipation Sodium Chloride (0.9 % Sodium Chloride Flush 3 Ml Syringe) 3 ml IVFLUSH QSHIFT [facility] Last Admin: 07/15/25 21:23 Dose: 3 ml Documented By: ASHLEY Tramadol HCl (Tramadol Hcl 50 Mg Tablet) 50 mg PO BEDTIME PRN PRN Reason: moderate to severe pain Last Admin: 07/14/25 19:17 Dose: 50 mg Documented By: BYRON Trazodone HCl (Trazodone Hcl 50 Mg Tablet) 50 mg PO BEDTIME [facility] Last Admin: 07/15/25 21:12 Dose: 50 mg Documented By: ASHLEY Vitamin D (Cholecalciferol (Vitamin D3) 25 Mcg Tablet) 25 mcg PO DAILY [facility] Last Admin: 07/15/25 08:36 Dose: 25 mcg Documented By: CHEN Labs 07/15/25 06:22 07/15/25 06:22 Labs: Laboratory Results - last 24 hr 07/15/25 07/15/25 07/15/25 06:22 11:06 16:12 POC Glucose 98 145 H Magnesium 2.1 Random Vancomycin 07/15/25 07/15/25 07/16/25 19:51 20:24 07:33 POC Glucose 134 H 73 Magnesium Random Vancomycin 23.8 H Microbiology Microbiology Results: Microbiology 07/14/25 16:10 Blood Culture - Preliminary Blood - Venous No growth after 24 hours. 07/14/25 09:51 Blood Culture - Preliminary Blood - Venous No growth after 24 hours. Assessment and Plan (1) Chronic indwelling Craty catheter: Status: Acute (2) Neurogenic bladder: Status: Acute (3) Gram-positive cocci bacteremia: Status: Acute Plan 80-year-old chronically bed bound male, resident of [facility] with pertinent history of bullous pemphigoid, MS, chronic Carty, mood disorder, insulin- dependent type 2 diabetes mellitus, mixed hyperlipidemia, hypertension who was sent to the emergency department for evaluation of altered mentation. Sepsis d/t UTI asssociated with chronic carty cath, and staph aureus bacteremia, likely from Bullous pemphigoid Urine culture pending, h/o ESBL BCx --MRSA, last culture negative at 24 hrs -continue Meropenem for UTI if negative culture then dc -continue Vanco for GPC bacteremia, monnitor level and Creatine -Blood culture 07/14 negative at 24 -Echocardiogram no vegetations -ID consult recommends Vanco probably for 4 weeks -WBC has normalized Acute metabolic encephalopathy d/t above resolved Replacement of Carty catheter: Urology replaced, US guided, difficult placement ?Brown/red vomit, discharge found on bed pad per nursing Treated with IV PPI GI consult--KUB 07/12--Marked gaseous distention of the stomach. Findings could represent gastric outlet obstruction. CT 07/12--1. Wall thickening of the distal large intestine including rectum is nonspecific. Differential considerations include colitis and proctitis. Other bowel wall pathology not excluded by CT. 2. No small bowel obstruction. 3. Small bilateral pleural effusions with underlying atelectasis and/or consolidation of the imaged lung bases, left worse than right. Differential considerations include pneumonia. Please consider attention on follow-up to ensure resolution. CT 07/15:2. Marked distention of the stomach with gas and fluid. There is fluid distention of the duodenum which narrows as it crosses the spine. Duodenal obstruction is not excluded. 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 1.6 --> 0.97, resolved Anemia of chronic disease: Hemoglobin above transfusion threshold Bullous pemphigoid: Continue methotrexate, prednisone mixed hyperlipidemia Statin Hypertension Coreg and Amlodinpine, hold if BP low Insulin-dependent type 2 diabetes mellitus: Sliding scale insulin NPO, ADA diet when eating DVT prophylaxis: Lovenox Full code. Discussed with patient and over the phone Quality Stroke Does the patient have a stroke diagnosis?: No VTE Prior VTE?: No VTE Risk Level:: Medical - moderate - high VTE Device Contraindication: Treatment Not Indicated VTE Drug Contraindication: N/A - Med Ordered
[2025-07-16] MEDS: 0.9 % Sodium Chloride Flush 3 ML SYRINGE IVFLUSH (09:16)
[2025-07-16 09:52] LABS: Hematocrit 27.1 % (42.0-52.0); Hemoglobin 9.2 g/dl (14.0-18.0); Mean Corpuscular HGB Conc 33.9 g/dl (31.0-36.0); Mean Corpuscular Hemoglobin 31.9 pg (27.0-33.0); Mean Corpuscular Volume 94.1 fL (80.0-98.0); NRBC Abs Auto 0.000 X10*3/uL (0.0-0.012); NRBC Pct Auto 0.0 /100WBC (0.0-0.2); Platelet Count 109 X10*3/uL (160-400); Red Blood Count 2.88 X10*6/uL (4.60-5.80); White Blood Count 2.8 X10*3/uL (4.8-10.8)
[2025-07-16 10:07] LABS: Anion Gap 17 (12-20); Blood Urea Nitrogen 44 mg/dL (9-16); Calcium 8.2 mg/dL (8.4-10.2); Carbon Dioxide 17 mmol/L (22-29); Chloride 109 mmol/L (96-108); Creatinine Clr Calc Pharmacy 62.4; Estimated Glomerular Filt Rate > 60; Potassium 3.2 mmol/L (3.3-5.1); Sodium 140 mmol/L (135-145)
--- NOTE | 2025-07-16 10:17 | HE.PHANOTE ---
Vancomycin dosing Level supratherapeutic @ 22.8. Will continue to hold vancomycin, repeat level 07/16 @ 2200. Ignacio GalvezD
[2025-07-16 11:42] LABS: Glucose, Whole Blood 72 mg/dL (60-115)
[2025-07-16 16:00] VITALS: BP 140/62; PULSE 85; RESP 18; TEMP 36.6; O2SAT 95
[2025-07-16] MEDS: Lactated Ringers 1,000 ML 125 ML IVCONT (16:01)
[2025-07-16 16:22] LABS: Glucose, Whole Blood 72 mg/dL (60-115)
[2025-07-16] MEDS: Throat Lozenge, Medicated LOZENGE 1 LOZENGE MUCOUS MEM ×2 (17:57→19:37)
[2025-07-16 19:43] VITALS: BP 154/70; PULSE 85; RESP 16; TEMP 36.4; O2SAT 97
[2025-07-16 20:17] LABS: Glucose, Whole Blood 70 mg/dL (60-115)
--- NOTE | 2025-07-16 22:15 | PM.CNGS ---
History of Present Illness Consult details Consult date: 07/16/25 Requesting physician: Juan Sykes Narrative: This has a 80-year-old chronically bed bound male, resident of [facility] with pertinent history of bullous pemphigoid, MS, chronic Nunez, mood disorder, insulin-dependent type 2 diabetes mellitus, mixed hyperlipidemia, hypertension who was sent to the emergency department for evaluation of altered mentation. He was found to have urosepsis and those treated for that. Three days ago he started throwing up coffee-ground bloody material and the KUB was carried out which revealed a markedly distended stomach. Cat scan of the abdomen and pelvis was then carried out which showed the stomach being very distended as well as the duodenum up until the 3rd 4th part of the duodenum and then it was decompressed in the distal small bowel looked fine. Question some type of obstruction noted. Patient had had some abdominal pain but has not now had an NG-tube in place to decompress in his feeling better. Surgical consultation was carried out to determine workup and potential treatment for this obstruction. GI has seen this patient in his planning on doing a colonoscopy and EGD. Currently he is hemodynamically stable. He is NPO NG tube putting out greenish liquid. [facility] Past Medical History Medical History Steroid dependence EDWARD (acute kidney injury) UTI (urinary tract infection) due to urinary indwelling Nunez catheter Bullous pemphigoid Decubitus ulcer of coccygeal region, stage 2 Acute hypotension Sepsis Aspiration pneumonitis Recurrent UTI (urinary tract infection) Hypotonic neurogenic bladder Lytic lesion of bone on x-ray Wound of foot Anemia Septic shock Shoulder pain Constipation Hematuria Multiple sclerosis Depression Diabetes mellitus type 2 in obese Chronic pain syndrome BPH (benign prostatic hyperplasia) Dehydration Chronic renal failure Urinary tract infection Family History Family History Family/Other Heart attack Father Diabetes Surgical History Surgical History Hx of removal of cyst Social History Social History Household Members: Unknown / Unable to assess Household Members Other:: lives at [facility] in [place] Housing: [facility] Housing Other:: [employer] Unable to assess alcohol history related to: Unable to respond Alcohol intake: never Comment: BEDFAST Patient Tobacco Use Status: Former Tobacco user Cigarette Packs Per Day: 1 Advance Directives Date on File: 10/13/20 service: Yes Current occupational status: retired Meds Allergies Allergy/AdvReac Type Severity Reaction Status Date / Time Benzodiazepines Allergy Unknown UNKNOWN Verified 07/10/25 16:36 (BENZODIAZEPINES) dalfampridine (From AMPYRA) Allergy Unknown UNKNOWN Verified 07/10/25 16:36 duloxetine (From CYMBALTA) Allergy Unknown UNKNOWN Verified 07/10/25 16:36 ezetimibe (From ZETIA) Allergy Unknown UNKNOWN Verified 07/10/25 16:36 niacin (NIACIN) Allergy Unknown UNKNOWN Verified 07/10/25 16:36 pravastatin (PRAVASTATIN) Allergy Unknown UNKNOWN Verified 07/10/25 16:36 Qlpwzyu-[id number]-WmI Reductase Allergy Unknown UNKNOWN Verified 07/10/25 16:36 Inhibitor ([id number]-CJO REDUCTASE INHIBITOR) lorazepam (From ATIVAN) AdvReac Severe EXCESSIVE Verified 07/10/25 16:36 SEDATION doxycycline (DOXYCYCLINE) AdvReac Mild esophogeal Verified 07/10/25 16:36 iritation methylprednisolone (From AdvReac Mild heartburn Verified 07/10/25 16:36 SOLU-MEDROL) ertapenem (From INVANZ) AdvReac Unknown possible Verified 07/10/25 16:36 cause of bullous pemphigoid Active Medications: Current Medications Acetaminophen (Acetaminophen 325 Mg Tablet) 650 mg PO Q6H PRN PRN Reason: Pain, Mild 1-3,fever,headache Last Admin: 07/11/25 03:15 Dose: 650 mg Acetaminophen (Acetaminophen 325 Mg Tablet) 650 mg PO BEDTIME [facility] Last Admin: 07/16/25 20:43 Dose: 650 mg Amlodipine Besylate (Amlodipine Besylate 10 Mg Tablet) 10 mg PO DAILY [facility]; Protocol Last Admin: 07/16/25 10:13 Dose: Not Given Ascorbic Acid (Ascorbic Acid 500 Mg Tablet) 500 mg PO DAILY [facility] Last Admin: 07/16/25 10:10 Dose: Not Given Aspirin (Aspirin Enteric Coated 81 Mg Tablet.Dr) 81 mg PO DAILY [facility] Last Admin: 07/16/25 10:10 Dose: Not Given Atorvastatin Calcium (Atorvastatin Calcium 10 Mg Tablet) 10 mg PO DAILY [facility] Last Admin: 07/16/25 10:10 Dose: Not Given Bacitracin (Bacitracin Oint 14 Gm Tube) 1 appl TOPICAL BID [facility]; Protocol Last Admin: 07/16/25 20:52 Dose: 1 appl Benzocaine (Throat Lozenge, Medicated Lozenge) 1 lozenge MUCOUS MEM Q2H PRN PRN Reason: Sore Throat Last Admin: 07/16/25 19:37 Dose: 1 lozenge Bisacodyl (Bisacodyl 5 Mg Tablet.Dr) 5 mg PO DAILY PRN PRN Reason: Constipation Bisacodyl (Bisacodyl 10 Mg Supp.Rect) 10 mg WI DAILY PRN PRN Reason: Constipation Bisacodyl (Bisacodyl 10 Mg Supp.Rect) 10 mg WI Q3D [facility] Last Admin: 07/15/25 10:53 Dose: 10 mg Bismuth Subsalicylate (Bismuth Subsalicylate Liquid 524 Mg/30 Ml Oral.Susp) 524 mg PO Q8H PRN PRN Reason: UPSET STOMACH/NAUSEA Calcium Carbonate (Calcium Carbonate 750 Mg Tab.Chew) 750 mg PO Q4H PRN PRN Reason: Heartburn Last Admin: 07/12/25 03:39 Dose: 750 mg Carvedilol (Carvedilol 6.25 Mg Tablet) 6.25 mg PO BID [facility]; Protocol Last Admin: 07/16/25 20:42 Dose: 6.25 mg Dextrose (Dextrose 50 % 25 Gm/50 Ml Syringe) 25 gm IVPUSH Q15M PRN; Protocol PRN Reason: per Hypoglycemia Standing Ord. Docusate Sodium (Docusate Sodium 100 Mg Capsule) 200 mg PO BID [facility] Last Admin: 07/16/25 20:43 Dose: 200 mg Enoxaparin Sodium (Enoxaparin Sodium 40 Mg/0.4 Ml Syringe) 40 mg SUBCUT Q24H [facility] Last Admin: 07/16/25 00:00 Dose: 40 mg Famotidine (Famotidine 20 Mg Tablet) 20 mg PO DAILY [facility] Last Admin: 07/16/25 10:12 Dose: Not Given Ferrous Sulfate (Ferrous Sulfate 324 Mg Tablet.) 324 mg PO DAILY [facility] Last Admin: 07/16/25 10:10 Dose: Not Given Folic Acid (Folic Acid 1 Mg Tablet) 1 mg PO SUTUWETHFRSA [facility] Last Admin: 07/16/25 15:59 Dose: Not Given Gabapentin (Gabapentin 300 Mg Capsule) 300 mg PO TID [facility] Last Admin: 07/16/25 20:42 Dose: 300 mg Glucose (Glucose Gel 15 Gm Gel..Gram.) 15 gm PO Q15M PRN; Protocol PRN Reason: per Hypoglycemia Standing Ord. Guaifenesin (Guaifenesin 200 Mg/10 Ml 10 Ml Liquid) 10 ml PO Q4H PRN PRN Reason: Cough Last Admin: 07/15/25 02:42 Dose: 10 ml Guaifenesin (Guaifenesin La 600 Mg Tab.Er.12h) 600 mg PO Q12H PRN PRN Reason: Cold Symptoms Vancomycin HCl 750 mg/ Sodium (Chloride) 265 mls @ 265 mls/hr IV Q24H [facility] Lactated Ringer's (Lr) 1,000 mls @ 125 mls/hr IVCONT .Q8H [facility] Last Admin: 07/16/25 16:01 Dose: 125 mls/hr Insulin Human Lispro (Insulin Lispro 100 Unit/Ml 3 Ml Vial) 0 unit SUBCUT QIDACHS [facility]; Protocol Last Admin: 07/16/25 20:01 Dose: Not Given Lactulose (Lactulose 20 Gm/30 Ml Solution) 20 gm PO DAILY [facility] Last Admin: 07/16/25 10:11 Dose: Not Given Lidocaine HCl (Lidocaine Hcl Viscous 2 % 15 Ml Solution) 15 ml MUCOUS MEM Q3H PRN PRN Reason: Dyspepsia Last Admin: 07/16/25 20:49 Dose: 15 ml Loperamide HCl (Loperamide Hcl 2 Mg Capsule) 2 mg PO Q4H PRN PRN Reason: Diarrhea Last Admin: 07/13/25 22:35 Dose: 2 mg Magnesium Hydroxide (Milk Of Magnesia 30 Ml Oral.Susp) 30 ml PO DAILY PRN PRN Reason: Constipation Magnesium Hydroxide (Milk Of Magnesia 30 Ml Oral.Susp) 30 ml PO BEDTIME PRN PRN Reason: Constipation Melatonin (Melatonin 3 Mg Tablet) 6 mg PO BEDTIME PRN PRN Reason: Insomnia Last Admin: 07/11/25 03:45 Dose: 6 mg Meropenem (Meropenem 1 Gm Vial) 1 gm IVPUSH Q12H [facility] Last Admin: 07/16/25 11:49 Dose: 1 gm Methotrexate (Methotrexate Sodium 2.5 Mg Tablet) 15 mg PO MO [facility] Last Admin: 07/11/25 22:05 Dose: 15 mg Morphine Sulfate (Morphine Sulfate 2 Mg/Ml Cartridge) 1 mg IVPUSH Q3H PRN; Protocol PRN Reason: Pain, Severe (Pain Scale 7-10) Last Admin: 07/15/25 14:48 Dose: 1 mg Ondansetron HCl (Ondansetron Hcl 4 Mg/2 Ml Vial) 4 mg IVPUSH Q8H PRN PRN Reason: Nausea and Vomiting Last Admin: 07/11/25 21:02 Dose: 4 mg Pharmacy Consult (Consult Rx Vancomycin Dosing) 1 each MISCELLANE DAILY PRN PRN Reason: Consult order Polyethylene Glycol (Polyethylene Glycol 3350 17 Gm Powd.Pack) 17 gm PO DAILY [facility] Last Admin: 07/16/25 10:11 Dose: Not Given Prednisone (Prednisone 2.5 Mg Tablet) 2.5 mg PO DAILY [facility] Last Admin: 07/16/25 10:13 Dose: Not Given Sodium Biphosphate/Sodium Phosphate (Sodium Phosphate,Petroleum-Dibasic 133 Ml Enema) 118 ml WI DAILY PRN PRN Reason: Constipation Sodium Chloride (0.9 % Sodium Chloride Flush 3 Ml Syringe) 3 ml IVFLUSH QSHIFT [facility] Last Admin: 07/16/25 16:27 Dose: Not Given Trazodone HCl (Trazodone Hcl 50 Mg Tablet) 50 mg PO BEDTIME [facility] Last Admin: 07/16/25 20:42 Dose: 50 mg Vitamin D (Cholecalciferol (Vitamin D3) 25 Mcg Tablet) 25 mcg PO DAILY [facility] Last Admin: 07/16/25 10:10 Dose: Not Given Home Medications ?Medication ?Instructions ?Recorded ?Confirmed ?Last Taken ?Type tramadol 50 mg tablet 50 mg PO BEDTIME PRN moderate to 10/09/20 07/11/25 Unknown History severe pain acetaminophen 325 mg tablet 650 mg PO Q4H PRN pain or fever 03/13/21 07/11/25 Unknown History rosuvastatin 10 mg tablet 10 mg PO DAILY 03/13/21 07/11/25 Unknown History Held on 06/11/24. Instructions: Resume on 06/14/24. guaifenesin 100 mg/5 mL oral 200 mg PO Q4H PRN Cough 05/19/21 07/11/25 Unknown History liquid (Diabetic Tussin EX) prednisone 2.5 mg tablet 2.5 mg PO DAILY 05/19/21 07/11/25 Unknown History amlodipine 10 mg tablet 10 mg PO DAILY 11/16/23 07/11/25 Unknown History bismuth subsalicylate 262 mg/15 mL 524 mg PO Q8H PRN UPSET 11/16/23 07/11/25 Unknown History oral suspension (Pepto-Bismol) STOMACH/NAUSEA ceramides 1,3,6-II (CeraVe topical 1 appl topical BID Dry Skin 11/16/23 07/11/25 Unknown History cream) docusate sodium 100 mg capsule 200 mg PO BID 11/16/23 07/11/25 Unknown History (Colace) famotidine 20 mg tablet 20 mg PO DAILY 11/16/23 07/11/25 Unknown History folic acid 1 mg tablet 1 mg PO SUTUWETHFRSA 11/16/23 07/11/25 Unknown History insulin glargine-yfgn 100 unit/mL 3 unit subcut BEDTIME 11/16/23 07/11/25 Unknown History subcutaneous solution lactulose 10 gram/15 mL oral 30 ml PO DAILY 11/16/23 07/11/25 Unknown History solution (Enulose) melatonin 5 mg tablet 5 mg PO BEDTIME PRN Insomnia 11/16/23 07/11/25 Unknown History polyethylene glycol 3350 17 17 g PO DAILY 11/16/23 07/11/25 Unknown History gram/dose oral powder (Miralax) methotrexate sodium 2.5 mg tablet 15 mg PO MO 02/25/24 07/11/25 Unknown History bisacodyl 5 mg tablet 5 mg PO DAILY PRN Constipation 03/31/24 07/11/25 Unknown History aspirin 81 mg tablet,delayed 81 mg PO DAILY 04/23/24 07/11/25 Unknown History release bisacodyl 10 mg rectal suppository 10 mg WI DAILY PRN Constipation 04/23/24 07/11/25 Unknown History bisacodyl 10 mg rectal suppository 10 mg WI Q3D 04/23/24 07/11/25 Unknown History guaifenesin 600 mg tablet, 600 mg PO Q12H PRN Cold Symptoms 04/23/24 07/11/25 Unknown History extended release 12 hr (Mucinex) sodium phosphates 19 gram-7 118 ml WI DAILY PRN Constipation 04/23/24 07/11/25 Unknown History gram/118 mL enema (Fleet Enema) acetaminophen 325 mg tablet 650 mg PO BEDTIME 07/11/25 07/11/25 Unknown History ascorbic acid (vitamin C) 500 mg 500 mg PO DAILY 07/11/25 07/11/25 Unknown History tablet (Vitamin C) bacitracin 500 unit/gram topical 1 appl topical BID 07/11/25 07/11/25 Unknown History ointment cholecalciferol (vitamin D3) 25 25 mcg PO DAILY 07/11/25 07/11/25 Unknown History mcg (1,000 unit) tablet (Vitamin D3) ferrous sulfate 325 mg (65 mg 325 mg PO DAILY 07/11/25 07/11/25 Unknown History iron) tablet insulin lispro 100 unit/mL See Protocol subcut BID 07/11/25 07/11/25 Unknown History subcutaneous solution (Admelog U-100 Insulin lispro) magnesium hydroxide 400 mg/5 mL 30 ml PO BEDTIME PRN Constipation 07/11/25 07/11/25 Unknown History oral suspension (Milk of Magnesia) trazodone 50 mg tablet 50 mg PO BEDTIME 07/11/25 07/11/25 Unknown History Physical Exam Vital Signs: Vital Signs: Last Vital Signs Temp 97.6 F 07/16/25 19:43 Pulse 85 07/16/25 19:43 Resp 16 07/16/25 19:43 BP 154/70 H 07/16/25 19:43 Pulse Ox 97 07/16/25 19:43 O2 Del Method Room Air 07/16/25 19:43 O2 Flow Rate 2 07/12/25 08:37 BMI result Body Mass Index 25.1 Const: General: cooperative, comfortable and tired appearing GI: Other: Abdomen is soft nondistended nontender Results Labs 07/16/25 09:43 07/16/25 09:43 Labs: Abnormal lab results 07/16/25 Range/Units 09:43 WBC 2.8 L (4.8-10.8) X10*3/uL RBC 2.88 L (4.60-5.80) X10*6/uL Hgb 9.2 L (14.0-18.0) g/dl Hct 27.1 L (42.0-52.0) % Plt Count 109 L (160-400) X10*3/uL Potassium 3.2 L (3.3-5.1) mmol/L Chloride 109 H (96-108) mmol/L Carbon Dioxide 17 L (22-29) mmol/L BUN 44 H (9-16) mg/dL Calcium 8.2 L (8.4-10.2) mg/dL Random Vancomycin 22.7 H (15-20) mcg/mL Short CBC 07/16/25 Range/Units 09:43 WBC 2.8 L (4.8-10.8) X10*3/uL Hgb 9.2 L (14.0-18.0) g/dl Hct 27.1 L (42.0-52.0) % Plt Count 109 L (160-400) X10*3/uL BMP 07/16/25 09:43 Sodium 140 Potassium 3.2 L Chloride 109 H Carbon Dioxide 17 L BUN 44 H Creatinine 1.07 Calcium 8.2 L All other labs normal. Imaging Additional studies: [address] [address] XRay Report Signed Patient: Omero Ardon MR#: [id number] : 1945 Acct:[id number] Age/Sex: 80 / M ADM Date: 07/10/25 Loc: .S3 344-[address]: Juan Sykes MD Ordering Physician: Juan Sykes MD Date of Service: 07/12/25 Procedure(s): XR KUB Accession Number(s): [id number] cc: ALISHA COY MD; Juan Sykes MD~ EXAMINATION: XR ABDOMEN 1 VIEW (KUB) HISTORY: abdominal distention, rule out SBO COMPARISON: There are no prior studies available for comparison. FINDINGS: Two supine views of the abdomen are submitted. The catheter projects over the pelvis. There is marked gaseous distention of the stomach. Small amount of gas is seen in the colon. No abnormal calcifications are identified. There are no abnormal soft tissue masses. The bones are osteopenic. There is degenerative change of the spine. XR/XR KUB IMPRESSION: Marked gaseous distention of the stomach. Findings could represent gastric outlet obstruction. Electronically signed by: Yves Rodriguez MD 07/12/2025 02:37 PM EDT RP Dictated By: Yves Rodriguez MD Signed By: <Electronically signed by Yves Rodriguez MD in OV> 07/12/25 1437 DD/ 1325 TD/TT: 07/12/25 1428 Steel Tier: CT Scan Report Signed Patient: Omero Ardon MR#: [id number] : 1945 Acct:[id number] Age/Sex: 80 / M ADM Date: 07/10/25 [facility]: [facility] 344[facility]: Juan Sykes MD Ordering Physician: Juan Sykes MD Date of Service: 07/15/25 Procedure(s): CT abdomen pelvis wo IV con Accession Number(s): [id number] cc: ALISHA COY MD; Juan Sykes MD~ Report Number: [id number]: Total DLP = 506.00 mGy-cm EXAMINATION: CT ABDOMEN PELVIS WITHOUT IV CONTRAST HISTORY: Abdominal pain COMPARISON: Comparison is made with the prior examination dated 07/12/2025. TECHNIQUE: CT scan of the abdomen and pelvis was performed without contrast using standard departmental protocol. Coronal and sagittal reformatted images were generated and reviewed. Oral contrast material was not administered at the request of the referring physician. This CT exam was performed with one or more of the following dose reduction techniques: automated exposure control, adjustment of the mA and/or kV according to patient size, use of iterative reconstruction technique. DLP: 506 mGy-cm FINDINGS: LOWER CHEST: Again is seen is patchy airspace opacity at both lung bases, consistent with atelectasis or pneumonia. There is a tiny left pleural effusion. CARDIOVASCULATURE: The heart is normal in size. There is no pericardial effusion. LIVER: The liver is normal in size and contour. The liver has an unremarkable unenhanced appearance. GALLBLADDER / BILE DUCTS: There is vicarious excretion of contrast material from the prior study via the gallbladder. There is no intra or extrahepatic biliary ductal dilatation. SPLEEN: The spleen is normal in size and has an unremarkable unenhanced appearance. PANCREAS: The pancreas has an unremarkable unenhanced appearance. ADRENAL GLANDS: Unremarkable. KIDNEYS/RETROPERITONEUM: No renal calculi are identified. There is no hydronephrosis. LYMPH NODES: No retroperitoneal lymphadenopathy is identified in the abdomen or pelvis. VASCULATURE: The abdominal aorta is normal in caliber. MESENTERY/PERITONEUM: There is a small amount of fluid in the left paracolic gutter.. No masses. There is no free intraperitoneal gas. STOMACH: The stomach is markedly distended with gas and fluid. SMALL BOWEL: The duodenum is distended with fluid. The duodenum tapers as it crosses the spine. The remainder of the small bowel is normal in caliber. COLON: Again seen is wall thickening of the rectosigmoid colon which may indicate colitis. APPENDIX: Normal. URINARY BLADDER/PELVIC ORGANS: The urinary bladder is decompressed with a Nunez catheter. The prostate is normal in size. BONES / SOFT TISSUES: There is degenerative disc disease of the spine. There is a mild compression deformity of L1. CT/CT abdomen pelvis wo IV con IMPRESSION: 1. Patchy airspace opacity at both lung bases, consistent with atelectasis versus pneumonia. 2. Marked distention of the stomach with gas and fluid. There is fluid distention of the duodenum which narrows as it crosses the spine. Duodenal obstruction is not excluded. 3. Wall thickening of the rectosigmoid colon, suggestive of colitis as seen previously. Electronically signed by: Yves Rodriguez MD 07/15/2025 12:38 PM EDT Dictated By: Yves Rodriguez MD Signed By: <Electronically signed by Yves Rodriguez MD in OV> 07/15/25 1238 DD/ 1113 TD/TT: 07/15/25 1223 Steel Tier: Assessment and Plan (1) Duodenal obstruction: Status: Acute Plan 80-year-old male with duodenal obstruction question etiology. He does not seem to have signs or symptoms consistent with peptic ulcer disease need to rule out mass. Plan for EGD by Gastroenterology. Question of some rectal areas well colonoscopy we will be helpful to diagnose that and if there is a need according to the biopsies for surgical intervention we can follow through. In the meantime agree to keep in the NG tube to suction patient can take small amounts in that we will just be sucked out through the NG tube. We will follow along Procedures Date of Service Date of Service: 07/16/25
--- NOTE | 2025-07-16 22:43 | HE.PHANOTE ---
RE: VANCO DOSING Trough came back as 20.8 mg/L, still supratherapeutic. Continue to hold dose, next trough is scheduled for 07/17/25 @0900.
[2025-07-17] MEDS: Throat Lozenge, Medicated LOZENGE 1 LOZENGE MUCOUS MEM ×5 (01:18→20:27)
[2025-07-17] MEDS: Lactated Ringers 1,000 ML 125 ML IVCONT (03:43)
[2025-07-17] MEDS: Lidocaine HCl Viscous 2 % 15 ML SOLUTION MUCOUS MEM ×5 (03:47→21:14)
[2025-07-17 07:33] VITALS: BP 152/68; PULSE 93; RESP 18; TEMP 36.1; O2SAT 97
[2025-07-17 07:43] LABS: Glucose, Whole Blood 58 mg/dL (60-115)
[2025-07-17] MEDS: Aspirin Enteric Coated 81 MG TABLET.DR PO (08:15)
[2025-07-17] MEDS: Ferrous Sulfate 324 MG TABLET.DR PO (08:16)
[2025-07-17 08:27] LABS: Glucose, Whole Blood 141 mg/dL (60-115)
--- NOTE | 2025-07-17 08:49 | PC.NURSE ---
AM POC 58. PT w NG tube, NPO, IV LR125. aware. Gave 25g dextrose IV. Recheck POC 15 mn later 141.
[2025-07-17 09:34] LABS: Anion Gap 17 (12-20); Blood Urea Nitrogen 42 mg/dL (9-16); Calcium 8.2 mg/dL (8.4-10.2); Carbon Dioxide 19 mmol/L (22-29); Chloride 110 mmol/L (96-108); Creatinine Clr Calc Pharmacy 68.8; Estimated Glomerular Filt Rate > 60; Potassium 3.1 mmol/L (3.3-5.1); Sodium 143 mmol/L (135-145)
[2025-07-17 11:35] LABS: Glucose, Whole Blood 100 mg/dL (60-115)
[2025-07-17] MEDS: Dextrose 5 % and Lactated Ring 1,000 ML 100 ML IVCONT ×2 (11:46→23:06)
[2025-07-17 15:46] VITALS: BP 156/69; PULSE 89; RESP 18; TEMP 36.5; O2SAT 96
--- NOTE | 2025-07-17 16:19 | PM.PNGS ---
Subjective Subjective Date of Service: 07/17/25 Interval history: Patient today complaining of pain in his feet abdomen is still being mildly uncomfortable NG tube with bilious drainage present. 2 L of bilious drainage since NG in Physical Exam Vital Signs: Vital Signs: Last Vital Signs Temp 97.7 F 07/17/25 15:46 Pulse 89 07/17/25 15:46 Resp 18 07/17/25 15:46 BP 156/69 H 07/17/25 15:46 Pulse Ox 96 07/17/25 15:46 O2 Del Method Room Air 07/17/25 15:46 O2 Flow Rate 2 07/12/25 08:37 BMI result Body Mass Index 25.1 GI: Other: Abdomen is soft Objective Data Active Medications Acetaminophen (Acetaminophen 325 Mg Tablet) 650 mg PO Q6H PRN PRN Reason: Pain, Mild 1-3,fever,headache Last Admin: 07/17/25 15:42 Dose: 650 mg Documented By: CHEN Acetaminophen (Acetaminophen 325 Mg Tablet) 650 mg PO BEDTIME [facility] Last Admin: 07/16/25 20:43 Dose: 650 mg Documented By: PANKAJ Amlodipine Besylate (Amlodipine Besylate 10 Mg Tablet) 10 mg PO DAILY [facility]; Protocol Last Admin: 07/17/25 08:16 Dose: 10 mg Documented By: CHEN Ascorbic Acid (Ascorbic Acid 500 Mg Tablet) 500 mg PO DAILY [facility] Last Admin: 07/17/25 08:15 Dose: 500 mg Documented By: CHEN Aspirin (Aspirin Enteric Coated 81 Mg Tablet.) 81 mg PO DAILY [facility] Last Admin: 07/17/25 08:15 Dose: 81 mg Documented By: CHEN Atorvastatin Calcium (Atorvastatin Calcium 10 Mg Tablet) 10 mg PO DAILY [facility] Last Admin: 07/17/25 08:15 Dose: 10 mg Documented By: CHEN Bacitracin (Bacitracin Oint 14 Gm Tube) 1 appl TOPICAL BID [facility]; Protocol Last Admin: 07/17/25 08:22 Dose: 1 appl Documented By: CHEN Benzocaine (Throat Lozenge, Medicated Lozenge) 1 lozenge MUCOUS MEM Q2H PRN PRN Reason: Sore Throat Last Admin: 07/17/25 13:20 Dose: 1 lozenge Documented By: CHEN Bisacodyl (Bisacodyl 5 Mg Tablet.) 5 mg PO DAILY PRN PRN Reason: Constipation Bisacodyl (Bisacodyl 10 Mg Supp.Rect) 10 mg [place] DAILY PRN PRN Reason: Constipation Bisacodyl (Bisacodyl 10 Mg Supp.Rect) 10 mg OH Q3D [facility] Last Admin: 07/15/25 10:53 Dose: 10 mg Documented By: CHEN Bismuth Subsalicylate (Bismuth Subsalicylate Liquid 524 Mg/30 Ml Oral.Susp) 524 mg PO Q8H PRN PRN Reason: UPSET STOMACH/NAUSEA Calcium Carbonate (Calcium Carbonate 750 Mg Tab.Chew) 750 mg PO Q4H PRN PRN Reason: Heartburn Last Admin: 07/12/25 03:39 Dose: 750 mg Documented By: WONG Carvedilol (Carvedilol 6.25 Mg Tablet) 6.25 mg PO BID [facility]; Protocol Last Admin: 07/17/25 08:15 Dose: 6.25 mg Documented By: CHEN Dextrose (Dextrose 50 % 25 Gm/50 Ml Syringe) 25 gm IVPUSH Q15M PRN; Protocol PRN Reason: per Hypoglycemia Standing Ord. Last Admin: 07/17/25 07:49 Dose: 25 gm Documented By: CHEN Docusate Sodium (Docusate Sodium 100 Mg Capsule) 200 mg PO BID [facility] Last Admin: 07/17/25 08:22 Dose: Not Given Documented By: CHEN Non-Admin Reason: Patient Refused Enoxaparin Sodium (Enoxaparin Sodium 40 Mg/0.4 Ml Syringe) 40 mg SUBCUT Q24H [facility] Last Admin: 07/16/25 23:30 Dose: 40 mg Documented By: PANKAJ Famotidine (Famotidine 20 Mg Tablet) 20 mg PO DAILY [facility] Last Admin: 07/17/25 08:16 Dose: 20 mg Documented By: CHEN Ferrous Sulfate (Ferrous Sulfate 324 Mg Tablet.) 324 mg PO DAILY [facility] Last Admin: 07/17/25 08:16 Dose: 324 mg Documented By: CHEN Folic Acid (Folic Acid 1 Mg Tablet) 1 mg PO SUTUWETHFRSA [facility] Last Admin: 07/16/25 15:59 Dose: Not Given Documented By: CHEN Non-Admin Reason: Physician Held Med Gabapentin (Gabapentin 300 Mg Capsule) 300 mg PO TID [facility] Last Admin: 07/17/25 15:42 Dose: 300 mg Documented By: CHEN Glucose (Glucose Gel 15 Gm Gel..Gram.) 15 gm PO Q15M PRN; Protocol PRN Reason: per Hypoglycemia Standing Ord. Guaifenesin (Guaifenesin 200 Mg/10 Ml 10 Ml Liquid) 10 ml PO Q4H PRN PRN Reason: Cough Last Admin: 07/15/25 02:42 Dose: 10 ml Documented By: BYRON Guaifenesin (Guaifenesin La 600 Mg Tab.Er.12h) 600 mg PO Q12H PRN PRN Reason: Cold Symptoms Vancomycin HCl 750 mg/ Sodium (Chloride) 265 mls @ 265 mls/hr IV Q24H [facility] Dextrose/Lactated Ringer's (D5lr) 1,000 mls @ 100 mls/hr IVCONT .Q10H [facility] Last Admin: 07/17/25 11:46 Dose: 100 mls/hr Documented By: CHEN Insulin Human Lispro (Insulin Lispro 100 Unit/Ml 3 Ml Vial) 0 unit SUBCUT QIDACHS [facility]; Protocol Last Admin: 07/17/25 11:51 Dose: Not Given Documented By: CHEN Non-Admin Reason: No Insulin Coverage Lactulose (Lactulose 20 Gm/30 Ml Solution) 20 gm PO DAILY [facility] Last Admin: 07/17/25 08:22 Dose: Not Given Documented By: CHEN Non-Admin Reason: Patient Refused Lidocaine HCl (Lidocaine Hcl Viscous 2 % 15 Ml Solution) 15 ml MUCOUS MEM Q3H PRN PRN Reason: Dyspepsia Last Admin: 07/17/25 15:45 Dose: 15 ml Documented By: CHEN Loperamide HCl (Loperamide Hcl 2 Mg Capsule) 2 mg PO Q4H PRN PRN Reason: Diarrhea Last Admin: 07/13/25 22:35 Dose: 2 mg Documented By: CARMELINA Magnesium Hydroxide (Milk Of Magnesia 30 Ml Oral.Susp) 30 ml PO DAILY PRN PRN Reason: Constipation Magnesium Hydroxide (Milk Of Magnesia 30 Ml Oral.Susp) 30 ml PO BEDTIME PRN PRN Reason: Constipation Melatonin (Melatonin 3 Mg Tablet) 6 mg PO BEDTIME PRN PRN Reason: Insomnia Last Admin: 07/11/25 03:45 Dose: 6 mg Documented By: DOROTHEA Meropenem (Meropenem 1 Gm Vial) 1 gm IVPUSH Q12H [facility] Last Admin: 07/17/25 11:50 Dose: 1 gm Documented By: CHEN Methotrexate (Methotrexate Sodium 2.5 Mg Tablet) 15 mg PO MO [facility] Last Admin: 07/11/25 22:05 Dose: 15 mg Documented By: WONG Morphine Sulfate (Morphine Sulfate 2 Mg/Ml Cartridge) 1 mg IVPUSH Q3H PRN; Protocol PRN Reason: Pain, Severe (Pain Scale 7-10) Last Admin: 07/17/25 13:20 Dose: 1 mg Documented By: CHEN Comments: PT pain reported at 7/10 in throat area. Nystatin (Nystatin Powder 15 Gm Bottle) 1 appl TOPICAL BID [facility]; Protocol Ondansetron HCl (Ondansetron Hcl 4 Mg/2 Ml Vial) 4 mg IVPUSH Q8H PRN PRN Reason: Nausea and Vomiting Last Admin: 07/11/25 21:02 Dose: 4 mg Documented By: WONG Comments: early dose per provider Pharmacy Consult (Consult Rx Vancomycin Dosing) 1 each MISCELLANE DAILY PRN PRN Reason: Consult order Polyethylene Glycol (Polyethylene Glycol 3350 17 Gm Powd.Pack) 17 gm PO DAILY [facility] Last Admin: 07/17/25 08:22 Dose: Not Given Documented By: CHEN Non-Admin Reason: Patient Refused Prednisone (Prednisone 2.5 Mg Tablet) 2.5 mg PO DAILY [facility] Last Admin: 07/17/25 08:15 Dose: 2.5 mg Documented By: CHEN Sodium Biphosphate/Sodium Phosphate (Sodium Phosphate,[place]-Dibasic 133 Ml Enema) 118 ml [place] DAILY PRN PRN Reason: Constipation Sodium Chloride (0.9 % Sodium Chloride Flush 3 Ml Syringe) 3 ml IVFLUSH QSHIFT [facility] Last Admin: 07/17/25 08:21 Dose: Not Given Documented By: CHEN Non-Admin Reason: IV Running Trazodone HCl (Trazodone Hcl 50 Mg Tablet) 50 mg PO BEDTIME [facility] Last Admin: 07/16/25 20:42 Dose: 50 mg Documented By: PANKAJ Vitamin D (Cholecalciferol (Vitamin D3) 25 Mcg Tablet) 25 mcg PO DAILY [facility] Last Admin: 07/17/25 08:15 Dose: 25 mcg Documented By: CHEN Labs 07/16/25 09:43 07/17/25 09:01 Labs: Laboratory Results - last 24 hr 07/16/25 07/16/25 07/16/25 16:17 19:59 22:05 Hold Purple Top Anion Gap Estim Creat Clear Calc Estimated GFR POC Glucose 72 70 Random Glucose Calcium Random Vancomycin 20.8 H 07/17/25 07/17/25 07/17/25 07:37 08:22 09:01 Hold Purple Top Anion Gap 17 Estim Creat Clear Calc 68.8 Estimated GFR > 60 POC Glucose 58 L* 141 H Random Glucose 144 H Calcium 8.2 L Random Vancomycin 18.2 07/17/25 07/17/25 09:05 11:27 Hold Purple Top SEE NOTE Anion Gap Estim Creat Clear Calc Estimated GFR POC Glucose 100 Random Glucose Calcium Random Vancomycin Microbiology Microbiology Results: Microbiology 07/14/25 16:10 Blood Culture - Preliminary Blood - Venous No growth after 48 hours. Procedures Date of Service Date of Service: 07/17/25 Progress Note: A&P Assessment and plan (1) Duodenal obstruction: Status: Acute Assessment and Plan: 80-year-old male with multiple medical problems with duodenal obstruction question etiology. Continue with the NG tube and plan for GI to do upper endoscopy with the evaluation and possible biopsies. Until then no urgent need for any surgical intervention. Time Spent With Patient Time: Total time managing care of this patient today ____ minutes. Quality Stroke Does the patient have a stroke diagnosis?: No VTE Prior VTE?: No VTE Risk Level:: Medical - moderate - high VTE Device Contraindication: Treatment Not Indicated VTE Drug Contraindication: N/A - Med Ordered
[2025-07-17 16:36] LABS: Glucose, Whole Blood 150 mg/dL (60-115)
[2025-07-17 19:51] LABS: Glucose, Whole Blood 175 mg/dL (60-115)
[2025-07-17 20:00] VITALS: BP 139/63; PULSE 89; RESP 16; TEMP 36.1; O2SAT 97
--- NOTE | 2025-07-17 20:34 | HE.PHANOTE ---
RE: VANCO DOSING Trough came back as 15.4 mg/L after dose being held for 2 days. Renal function is improving. Restart at 750 mg q24h, next trough is scheduled for 07/18/25 @1999.
[2025-07-17 21:28] LABS: Glucose, Whole Blood 140 mg/dL (60-115)
[2025-07-18] VITALS (9 sets, daily range): BP systolic 91–175; BP diastolic 43–87; PULSE 80–97; RESP 16–18; TEMP 36.1–37.2; O2SAT 95–98
[2025-07-18] MEDS: Lidocaine HCl Viscous 2 % 15 ML SOLUTION MUCOUS MEM ×2 (00:15→03:27)
[2025-07-18] MEDS: Throat Lozenge, Medicated LOZENGE 1 LOZENGE MUCOUS MEM ×2 (03:27→05:30)
[2025-07-18 07:51] LABS: Glucose, Whole Blood 167 mg/dL (60-115)
--- NOTE | 2025-07-18 08:16 | P.PNGS_ITS ---
Subjective Subjective Date of Service: 07/18/25 Interval history: Denies abdominal pain NG tube in place, output does not appear to be a lot Physical Exam 2 Vital Signs: Vital Signs: Last Vital Signs Temp 96.9 F 07/18/25 07:29 Pulse 95 07/18/25 07:29 Resp 16 07/18/25 07:29 BP 141/87 H 07/18/25 04:00 Pulse Ox 97 07/18/25 07:29 O2 Del Method Room Air 07/18/25 07:29 O2 Flow Rate 2 07/12/25 08:37 BMI result Body Mass Index 25.1 Const: General: comfortable and no acute distress Resp: Effort & Inspection: normal respiratory effort GI: Palpation (GI): Soft to palpation, not firm, nontender and no guarding Objective Data Active Medications Acetaminophen (Acetaminophen 325 Mg Tablet) 650 mg PO Q6H PRN PRN Reason: Pain, Mild 1-3,fever,headache Last Admin: 07/17/25 15:42 Dose: 650 mg Documented By: CHEN Acetaminophen (Acetaminophen 325 Mg Tablet) 650 mg PO BEDTIME [facility] Last Admin: 07/17/25 20:29 Dose: 650 mg Documented By: TARA Amlodipine Besylate (Amlodipine Besylate 10 Mg Tablet) 10 mg PO DAILY [facility]; Protocol Last Admin: 07/17/25 08:16 Dose: 10 mg Documented By: CHEN Ascorbic Acid (Ascorbic Acid 500 Mg Tablet) 500 mg PO DAILY [facility] Last Admin: 07/17/25 08:15 Dose: 500 mg Documented By: CHEN Aspirin (Aspirin Enteric Coated 81 Mg Tablet.) 81 mg PO DAILY [facility] Last Admin: 07/17/25 08:15 Dose: 81 mg Documented By: CHEN Atorvastatin Calcium (Atorvastatin Calcium 10 Mg Tablet) 10 mg PO DAILY [facility] Last Admin: 07/17/25 08:15 Dose: 10 mg Documented By: CHEN Bacitracin (Bacitracin Oint 14 Gm Tube) 1 appl TOPICAL BID [facility]; Protocol Last Admin: 07/17/25 23:01 Dose: 1 appl Documented By: TARA Benzocaine (Throat Lozenge, Medicated Lozenge) 1 lozenge MUCOUS MEM Q2H PRN PRN Reason: Sore Throat Last Admin: 07/18/25 05:30 Dose: 1 lozenge Documented By: TARA Bisacodyl (Bisacodyl 5 Mg Tablet.) 5 mg PO DAILY PRN PRN Reason: Constipation Bisacodyl (Bisacodyl 10 Mg Supp.Rect) 10 mg ID DAILY PRN PRN Reason: Constipation Bisacodyl (Bisacodyl 10 Mg Supp.Rect) 10 mg ID Q3D [facility] Last Admin: 07/15/25 10:53 Dose: 10 mg Documented By: CHEN Bismuth Subsalicylate (Bismuth Subsalicylate Liquid 524 Mg/30 Ml Oral.Susp) 524 mg PO Q8H PRN PRN Reason: UPSET STOMACH/NAUSEA Calcium Carbonate (Calcium Carbonate 750 Mg Tab.Chew) 750 mg PO Q4H PRN PRN Reason: Heartburn Last Admin: 07/12/25 03:39 Dose: 750 mg Documented By: WONG Carvedilol (Carvedilol 6.25 Mg Tablet) 6.25 mg PO BID [facility]; Protocol Last Admin: 07/17/25 20:28 Dose: 6.25 mg Documented By: TARA Dextrose (Dextrose 50 % 25 Gm/50 Ml Syringe) 25 gm IVPUSH Q15M PRN; Protocol PRN Reason: per Hypoglycemia Standing Ord. Last Admin: 07/17/25 07:49 Dose: 25 gm Documented By: CHEN Docusate Sodium (Docusate Sodium 100 Mg Capsule) 200 mg PO BID [facility] Last Admin: 07/17/25 20:28 Dose: Not Given Documented By: TARA Non-Admin Reason: Patient Refused Enoxaparin Sodium (Enoxaparin Sodium 40 Mg/0.4 Ml Syringe) 40 mg SUBCUT Q24H [facility] Last Admin: 07/17/25 23:01 Dose: 40 mg Documented By: TARA Comments: per patient request Famotidine (Famotidine 20 Mg Tablet) 20 mg PO DAILY [facility] Last Admin: 07/17/25 08:16 Dose: 20 mg Documented By: CHEN Ferrous Sulfate (Ferrous Sulfate 324 Mg Tablet.) 324 mg PO DAILY [facility] Last Admin: 07/17/25 08:16 Dose: 324 mg Documented By: CHEN Folic Acid (Folic Acid 1 Mg Tablet) 1 mg PO [facility] Last Admin: 07/17/25 17:37 Dose: 1 mg Documented By: CHEN Gabapentin (Gabapentin 300 Mg Capsule) 300 mg PO TID [facility] Last Admin: 07/17/25 20:28 Dose: 300 mg Documented By: TARA Glucose (Glucose Gel 15 Gm Gel..Gram.) 15 gm PO Q15M PRN; Protocol PRN Reason: per Hypoglycemia Standing Ord. Guaifenesin (Guaifenesin 200 Mg/10 Ml 10 Ml Liquid) 10 ml PO Q4H PRN PRN Reason: Cough Last Admin: 07/15/25 02:42 Dose: 10 ml Documented By: BYRON Guaifenesin (Guaifenesin La 600 Mg Tab.Er.12h) 600 mg PO Q12H PRN PRN Reason: Cold Symptoms Vancomycin HCl 750 mg/ Sodium (Chloride) 265 mls @ 265 mls/hr IV Q24H [facility] Last Infusion: 07/17/25 23:10 Dose: Infused Documented By: TARA Dextrose/Lactated Ringer's (D5lr) 1,000 mls @ 100 mls/hr IVCONT .Q10H [facility] Last Admin: 07/18/25 05:23 Dose: Not Given Documented By: TARA Non-Admin Reason: IV Running Insulin Human Lispro (Insulin Lispro 100 Unit/Ml 3 Ml Vial) 0 unit SUBCUT QIDACHS [facility]; Protocol Last Admin: 07/17/25 21:42 Dose: Not Given Documented By: TARA Non-Admin Reason: No Insulin Coverage Lactulose (Lactulose 20 Gm/30 Ml Solution) 20 gm PO DAILY [facility] Last Admin: 07/17/25 08:22 Dose: Not Given Documented By: CHEN Non-Admin Reason: Patient Refused Lidocaine HCl (Lidocaine Hcl Viscous 2 % 15 Ml Solution) 15 ml MUCOUS MEM Q3H PRN PRN Reason: Dyspepsia Last Admin: 07/18/25 03:27 Dose: 15 ml Documented By: TARA Loperamide HCl (Loperamide Hcl 2 Mg Capsule) 2 mg PO Q4H PRN PRN Reason: Diarrhea Last Admin: 07/13/25 22:35 Dose: 2 mg Documented By: CARMELINA Magnesium Hydroxide (Milk Of Magnesia 30 Ml Oral.Susp) 30 ml PO DAILY PRN PRN Reason: Constipation Magnesium Hydroxide (Milk Of Magnesia 30 Ml Oral.Susp) 30 ml PO BEDTIME PRN PRN Reason: Constipation Melatonin (Melatonin 3 Mg Tablet) 6 mg PO BEDTIME PRN PRN Reason: Insomnia Last Admin: 07/11/25 03:45 Dose: 6 mg Documented By: DOROTHEA Meropenem (Meropenem 1 Gm Vial) 1 gm IVPUSH Q12H [facility] Last Admin: 07/17/25 23:01 Dose: 1 gm Documented By: TARA Methotrexate (Methotrexate Sodium 2.5 Mg Tablet) 15 mg PO MO [facility] Last Admin: 07/11/25 22:05 Dose: 15 mg Documented By: WONG Morphine Sulfate (Morphine Sulfate 2 Mg/Ml Cartridge) 1 mg IVPUSH Q3H PRN; Protocol PRN Reason: Pain, Severe (Pain Scale 7-10) Last Admin: 07/17/25 13:20 Dose: 1 mg Documented By: CHEN Comments: PT pain reported at 7/10 in throat area. Nystatin (Nystatin Powder 15 Gm Bottle) 1 appl TOPICAL BID [facility]; Protocol Last Admin: 07/17/25 23:01 Dose: Not Given Documented By: TARA Non-Admin Reason: Med Not Available Ondansetron HCl (Ondansetron Hcl 4 Mg/2 Ml Vial) 4 mg IVPUSH Q8H PRN PRN Reason: Nausea and Vomiting Last Admin: 07/11/25 21:02 Dose: 4 mg Documented By: WONG Comments: early dose per provider Pharmacy Consult (Consult Rx Vancomycin Dosing) 1 each MISCELLANE DAILY PRN PRN Reason: Consult order Polyethylene Glycol (Polyethylene Glycol 3350 17 Gm Powd.Pack) 17 gm PO DAILY [facility] Last Admin: 07/17/25 08:22 Dose: Not Given Documented By: CHEN Non-Admin Reason: Patient Refused Prednisone (Prednisone 2.5 Mg Tablet) 2.5 mg PO DAILY [facility] Last Admin: 07/17/25 08:15 Dose: 2.5 mg Documented By: CHEN Sodium Biphosphate/Sodium Phosphate (Sodium Phosphate,[place]-Dibasic 133 Ml Enema) 118 ml ID DAILY PRN PRN Reason: Constipation Sodium Chloride (0.9 % Sodium Chloride Flush 3 Ml Syringe) 3 ml IVFLUSH QSHIFT [facility] Last Admin: 07/18/25 01:22 Dose: Not Given Documented By: TARA Non-Admin Reason: IV Running Trazodone HCl (Trazodone Hcl 50 Mg Tablet) 50 mg PO BEDTIME [facility] Last Admin: 07/17/25 23:01 Dose: 50 mg Documented By: TARA Vitamin D (Cholecalciferol (Vitamin D3) 25 Mcg Tablet) 25 mcg PO DAILY [facility] Last Admin: 07/17/25 08:15 Dose: 25 mcg Documented By: CHEN Labs 07/16/25 09:43 07/17/25 09:01 Labs: Laboratory Results - last 24 hr 07/17/25 07/17/25 07/17/25 08:22 09:01 09:05 Hold Purple Top SEE NOTE Anion Gap 17 Estim Creat Clear Calc 68.8 Estimated GFR > 60 POC Glucose 141 H Random Glucose 144 H Calcium 8.2 L Vancomycin Trough Random Vancomycin 18.2 07/17/25 07/17/25 07/17/25 11:27 16:23 19:40 Hold Purple Top Anion Gap Estim Creat Clear Calc Estimated GFR POC Glucose 100 150 H 175 H Random Glucose Calcium Vancomycin Trough Random Vancomycin 07/17/25 07/17/25 07/18/25 20:04 21:24 07:28 Hold Purple Top Anion Gap Estim Creat Clear Calc Estimated GFR POC Glucose 140 H 167 H Random Glucose Calcium Vancomycin Trough 15.4 Random Vancomycin Procedures Date of Service Date of Service: 07/18/25 Progress Note: A&P Assessment and plan (1) Duodenal obstruction: Status: Acute Assessment and Plan: Looks well Abdomen is soft and benign For EGD today NG tube output minimal - possibly DC this depending on EGD findings Time Spent With Patient Time: Total time managing care of this patient today ____ minutes. Quality Stroke Does the patient have a stroke diagnosis?: No VTE Prior VTE?: No VTE Risk Level:: Medical - moderate - high VTE Device Contraindication: Treatment Not Indicated VTE Drug Contraindication: N/A - Med Ordered
[2025-07-18 08:42] LABS: Anion Gap 17 (12-20); Blood Urea Nitrogen 26 mg/dL (9-16); Calcium 8.0 mg/dL (8.4-10.2); Carbon Dioxide 20 mmol/L (22-29); Chloride 111 mmol/L (96-108); Creatinine Clr Calc Pharmacy 81.4; Estimated Glomerular Filt Rate > 60; Potassium 3.2 mmol/L (3.3-5.1); Sodium 145 mmol/L (135-145)
--- NOTE | 2025-07-18 08:59 | HO.ANESPROP2 ---
HPI - Anesthesia Eval Consult details Narrative: 80 yr old male, chronically bed bound, for upper endoscopy, flexible sigmoidoscopy Multiple sclerosis: on prednisone 2.5 mg daily, methotrexate PMFSH Active Problems Active Problems: All Active Problems Duodenal obstruction (Acute) MRSA bacteremia (Acute) Proctitis (Acute) Coffee ground emesis (Acute) Obstipation (Acute) Sepsis (Acute) Gram-positive cocci bacteremia (Acute) Acute UTI (urinary tract infection) (Acute) Steroid dependence (Acute) Multiple sclerosis (Acute) Obstructive uropathy (Acute) Chronic indwelling Nunez catheter (Acute) Neurogenic bladder (Acute) Decubitus ulcer of coccygeal region, stage 2 (Acute) Acute metabolic encephalopathy (Acute) Past Medical History Medical History Steroid dependence EDWARD (acute kidney injury) UTI (urinary tract infection) due to urinary indwelling Nunez catheter Bullous pemphigoid Decubitus ulcer of coccygeal region, stage 2 Acute hypotension Sepsis Aspiration pneumonitis Recurrent UTI (urinary tract infection) Hypotonic neurogenic bladder Lytic lesion of bone on x-ray Wound of foot Anemia Septic shock Shoulder pain Constipation Hematuria Multiple sclerosis Depression Diabetes mellitus type 2 in obese Chronic pain syndrome BPH (benign prostatic hyperplasia) Dehydration Chronic renal failure Urinary tract infection Family History Family History Family/Other Heart attack Father Diabetes Surgical History Surgical History Hx of removal of cyst Social History Social History Household Members: Unknown / Unable to assess Household Members Other:: lives at [facility] in [place] Housing: [facility] Other:: [facility] Unable to assess alcohol history related to: Unable to respond Alcohol intake: never Comment: BEDFAST Patient Tobacco Use Status: Former Tobacco user Cigarette Packs Per Day: 1 Advance Directives Date on File: 10/13/20 service: Yes Current occupational status: retired Meds Allergies Allergy/AdvReac Type Severity Reaction Status Date / Time Benzodiazepines Allergy Unknown UNKNOWN Verified 07/10/25 16:36 (BENZODIAZEPINES) dalfampridine (From AMPYRA) Allergy Unknown UNKNOWN Verified 07/10/25 16:36 duloxetine (From CYMBALTA) Allergy Unknown UNKNOWN Verified 07/10/25 16:36 ezetimibe (From ZETIA) Allergy Unknown UNKNOWN Verified 07/10/25 16:36 niacin (NIACIN) Allergy Unknown UNKNOWN Verified 07/10/25 16:36 pravastatin (PRAVASTATIN) Allergy Unknown UNKNOWN Verified 07/10/25 16:36 Zanofnr-XNW-KyG Reductase Allergy Unknown UNKNOWN Verified 07/10/25 16:36 Inhibitor ([id number] REDUCTASE INHIBITOR) lorazepam (From ATIVAN) AdvReac Severe EXCESSIVE Verified 07/10/25 16:36 SEDATION doxycycline (DOXYCYCLINE) AdvReac Mild esophogeal Verified 07/10/25 16:36 iritation methylprednisolone (From AdvReac Mild heartburn Verified 07/10/25 16:36 SOLU-MEDROL) ertapenem (From INVANZ) AdvReac Unknown possible Verified 07/10/25 16:36 cause of bullous pemphigoid Active Medications: Current Medications Acetaminophen (Acetaminophen 325 Mg Tablet) 650 mg PO Q6H PRN PRN Reason: Pain, Mild 1-3,fever,headache Last Admin: 07/17/25 15:42 Dose: 650 mg Acetaminophen (Acetaminophen 325 Mg Tablet) 650 mg PO BEDTIME [facility] Last Admin: 07/17/25 20:29 Dose: 650 mg Amlodipine Besylate (Amlodipine Besylate 10 Mg Tablet) 10 mg PO DAILY [facility]; Protocol Last Admin: 07/17/25 08:16 Dose: 10 mg Ascorbic Acid (Ascorbic Acid 500 Mg Tablet) 500 mg PO DAILY [facility] Last Admin: 07/17/25 08:15 Dose: 500 mg Aspirin (Aspirin Enteric Coated 81 Mg Tablet.Dr) 81 mg PO DAILY [facility] Last Admin: 07/17/25 08:15 Dose: 81 mg Atorvastatin Calcium (Atorvastatin Calcium 10 Mg Tablet) 10 mg PO DAILY [facility] Last Admin: 07/17/25 08:15 Dose: 10 mg Bacitracin (Bacitracin Oint 14 Gm Tube) 1 appl TOPICAL BID [facility]; Protocol Last Admin: 07/17/25 23:01 Dose: 1 appl Benzocaine (Throat Lozenge, Medicated Lozenge) 1 lozenge MUCOUS MEM Q2H PRN PRN Reason: Sore Throat Last Admin: 07/18/25 05:30 Dose: 1 lozenge Bisacodyl (Bisacodyl 5 Mg Tablet.Dr) 5 mg PO DAILY PRN PRN Reason: Constipation Bisacodyl (Bisacodyl 10 Mg Supp.Rect) 10 mg UT DAILY PRN PRN Reason: Constipation Bisacodyl (Bisacodyl 10 Mg Supp.Rect) 10 mg UT Q3D [facility] Last Admin: 07/15/25 10:53 Dose: 10 mg Bismuth Subsalicylate (Bismuth Subsalicylate Liquid 524 Mg/30 Ml Oral.Susp) 524 mg PO Q8H PRN PRN Reason: UPSET STOMACH/NAUSEA Calcium Carbonate (Calcium Carbonate 750 Mg Tab.Chew) 750 mg PO Q4H PRN PRN Reason: Heartburn Last Admin: 07/12/25 03:39 Dose: 750 mg Carvedilol (Carvedilol 6.25 Mg Tablet) 6.25 mg PO BID [facility]; Protocol Last Admin: 07/17/25 20:28 Dose: 6.25 mg Dextrose (Dextrose 50 % 25 Gm/50 Ml Syringe) 25 gm IVPUSH Q15M PRN; Protocol PRN Reason: per Hypoglycemia Standing Ord. Last Admin: 07/17/25 07:49 Dose: 25 gm Docusate Sodium (Docusate Sodium 100 Mg Capsule) 200 mg PO BID [facility] Last Admin: 07/17/25 20:28 Dose: Not Given Enoxaparin Sodium (Enoxaparin Sodium 40 Mg/0.4 Ml Syringe) 40 mg SUBCUT Q24H [facility] Last Admin: 07/17/25 23:01 Dose: 40 mg Famotidine (Famotidine 20 Mg Tablet) 20 mg PO DAILY [facility] Last Admin: 07/17/25 08:16 Dose: 20 mg Ferrous Sulfate (Ferrous Sulfate 324 Mg Tablet.) 324 mg PO DAILY [facility] Last Admin: 07/17/25 08:16 Dose: 324 mg Folic Acid (Folic Acid 1 Mg Tablet) 1 mg PO SUTUWETHFRSA [facility] Last Admin: 07/17/25 17:37 Dose: 1 mg Gabapentin (Gabapentin 300 Mg Capsule) 300 mg PO TID [facility] Last Admin: 07/17/25 20:28 Dose: 300 mg Glucose (Glucose Gel 15 Gm Gel..Gram.) 15 gm PO Q15M PRN; Protocol PRN Reason: per Hypoglycemia Standing Ord. Guaifenesin (Guaifenesin 200 Mg/10 Ml 10 Ml Liquid) 10 ml PO Q4H PRN PRN Reason: Cough Last Admin: 07/15/25 02:42 Dose: 10 ml Guaifenesin (Guaifenesin La 600 Mg Tab.Er.12h) 600 mg PO Q12H PRN PRN Reason: Cold Symptoms Vancomycin HCl 750 mg/ Sodium (Chloride) 265 mls @ 265 mls/hr IV Q24H [facility] Last Infusion: 07/17/25 23:10 Dose: Infused Dextrose/Lactated Ringer's (D5lr) 1,000 mls @ 100 mls/hr IVCONT .Q10H [facility] Last Admin: 07/18/25 05:23 Dose: Not Given Insulin Human Lispro (Insulin Lispro 100 Unit/Ml 3 Ml Vial) 0 unit SUBCUT QIDACHS [facility]; Protocol Last Admin: 07/17/25 21:42 Dose: Not Given Lactulose (Lactulose 20 Gm/30 Ml Solution) 20 gm PO DAILY [facility] Last Admin: 07/17/25 08:22 Dose: Not Given Lidocaine HCl (Lidocaine Hcl Viscous 2 % 15 Ml Solution) 15 ml MUCOUS MEM Q3H PRN PRN Reason: Dyspepsia Last Admin: 07/18/25 03:27 Dose: 15 ml Loperamide HCl (Loperamide Hcl 2 Mg Capsule) 2 mg PO Q4H PRN PRN Reason: Diarrhea Last Admin: 07/13/25 22:35 Dose: 2 mg Magnesium Hydroxide (Milk Of Magnesia 30 Ml Oral.Susp) 30 ml PO DAILY PRN PRN Reason: Constipation Magnesium Hydroxide (Milk Of Magnesia 30 Ml Oral.Susp) 30 ml PO BEDTIME PRN PRN Reason: Constipation Melatonin (Melatonin 3 Mg Tablet) 6 mg PO BEDTIME PRN PRN Reason: Insomnia Last Admin: 07/11/25 03:45 Dose: 6 mg Meropenem (Meropenem 1 Gm Vial) 1 gm IVPUSH Q12H [facility] Last Admin: 07/17/25 23:01 Dose: 1 gm Methotrexate (Methotrexate Sodium 2.5 Mg Tablet) 15 mg PO MO [facility] Last Admin: 07/11/25 22:05 Dose: 15 mg Morphine Sulfate (Morphine Sulfate 2 Mg/Ml Cartridge) 1 mg IVPUSH Q3H PRN; Protocol PRN Reason: Pain, Severe (Pain Scale 7-10) Last Admin: 07/17/25 13:20 Dose: 1 mg Nystatin (Nystatin Powder 15 Gm Bottle) 1 appl TOPICAL BID [facility]; Protocol Last Admin: 07/17/25 23:01 Dose: Not Given Ondansetron HCl (Ondansetron Hcl 4 Mg/2 Ml Vial) 4 mg IVPUSH Q8H PRN PRN Reason: Nausea and Vomiting Last Admin: 07/11/25 21:02 Dose: 4 mg Pharmacy Consult (Consult Rx Vancomycin Dosing) 1 each MISCELLANE DAILY PRN PRN Reason: Consult order Polyethylene Glycol (Polyethylene Glycol 3350 17 Gm Powd.Pack) 17 gm PO DAILY [facility] Last Admin: 07/17/25 08:22 Dose: Not Given Prednisone (Prednisone 2.5 Mg Tablet) 2.5 mg PO DAILY [facility] Last Admin: 07/17/25 08:15 Dose: 2.5 mg Sodium Biphosphate/Sodium Phosphate (Sodium Phosphate,Walker-Dibasic 133 Ml Enema) 118 ml UT DAILY PRN PRN Reason: Constipation Sodium Chloride (0.9 % Sodium Chloride Flush 3 Ml Syringe) 3 ml IVFLUSH QSHIFT [facility] Last Admin: 07/18/25 01:22 Dose: Not Given Trazodone HCl (Trazodone Hcl 50 Mg Tablet) 50 mg PO BEDTIME [facility] Last Admin: 07/17/25 23:01 Dose: 50 mg Vitamin D (Cholecalciferol (Vitamin D3) 25 Mcg Tablet) 25 mcg PO DAILY [facility] Last Admin: 07/17/25 08:15 Dose: 25 mcg Home Medications ?Medication ?Instructions ?Recorded ?Confirmed ?Last Taken ?Type tramadol 50 mg tablet 50 mg PO BEDTIME PRN moderate to 10/09/20 07/11/25 Unknown History severe pain acetaminophen 325 mg tablet 650 mg PO Q4H PRN pain or fever 03/13/21 07/11/25 Unknown History rosuvastatin 10 mg tablet 10 mg PO DAILY 03/13/21 07/11/25 Unknown History Held on 06/11/24. Instructions: Resume on 06/14/24. guaifenesin 100 mg/5 mL oral 200 mg PO Q4H PRN Cough 05/19/21 07/11/25 Unknown History liquid (Diabetic Tussin EX) prednisone 2.5 mg tablet 2.5 mg PO DAILY 05/19/21 07/11/25 Unknown History amlodipine 10 mg tablet 10 mg PO DAILY 11/16/23 07/11/25 Unknown History bismuth subsalicylate 262 mg/15 mL 524 mg PO Q8H PRN UPSET 11/16/23 07/11/25 Unknown History oral suspension (Pepto-Bismol) STOMACH/NAUSEA ceramides 1,3,6-II (CeraVe topical 1 appl topical BID Dry Skin 11/16/23 07/11/25 Unknown History cream) docusate sodium 100 mg capsule 200 mg PO BID 11/16/23 07/11/25 Unknown History (Colace) famotidine 20 mg tablet 20 mg PO DAILY 11/16/23 07/11/25 Unknown History folic acid 1 mg tablet 1 mg PO SUTUWETHFRSA 11/16/23 07/11/25 Unknown History insulin glargine-yfgn 100 unit/mL 3 unit subcut BEDTIME 11/16/23 07/11/25 Unknown History subcutaneous solution lactulose 10 gram/15 mL oral 30 ml PO DAILY 11/16/23 07/11/25 Unknown History solution (Enulose) melatonin 5 mg tablet 5 mg PO BEDTIME PRN Insomnia 11/16/23 07/11/25 Unknown History polyethylene glycol 3350 17 17 g PO DAILY 11/16/23 07/11/25 Unknown History gram/dose oral powder (Miralax) methotrexate sodium 2.5 mg tablet 15 mg PO MO 02/25/24 07/11/25 Unknown History bisacodyl 5 mg tablet 5 mg PO DAILY PRN Constipation 03/31/24 07/11/25 Unknown History aspirin 81 mg tablet,delayed 81 mg PO DAILY 04/23/24 07/11/25 Unknown History release bisacodyl 10 mg rectal suppository 10 mg UT DAILY PRN Constipation 04/23/24 07/11/25 Unknown History bisacodyl 10 mg rectal suppository 10 mg UT Q3D 04/23/24 07/11/25 Unknown History guaifenesin 600 mg tablet, 600 mg PO Q12H PRN Cold Symptoms 04/23/24 07/11/25 Unknown History extended release 12 hr (Mucinex) sodium phosphates 19 gram-7 118 ml UT DAILY PRN Constipation 04/23/24 07/11/25 Unknown History gram/118 mL enema (Fleet Enema) acetaminophen 325 mg tablet 650 mg PO BEDTIME 07/11/25 07/11/25 Unknown History ascorbic acid (vitamin C) 500 mg 500 mg PO DAILY 07/11/25 07/11/25 Unknown History tablet (Vitamin C) bacitracin 500 unit/gram topical 1 appl topical BID 07/11/25 07/11/25 Unknown History ointment cholecalciferol (vitamin D3) 25 25 mcg PO DAILY 07/11/25 07/11/25 Unknown History mcg (1,000 unit) tablet (Vitamin D3) ferrous sulfate 325 mg (65 mg 325 mg PO DAILY 07/11/25 07/11/25 Unknown History iron) tablet insulin lispro 100 unit/mL See Protocol subcut BID 07/11/25 07/11/25 Unknown History subcutaneous solution (Admelog U-100 Insulin lispro) magnesium hydroxide 400 mg/5 mL 30 ml PO BEDTIME PRN Constipation 07/11/25 07/11/25 Unknown History oral suspension (Milk of Magnesia) trazodone 50 mg tablet 50 mg PO BEDTIME 07/11/25 07/11/25 Unknown History Exam Height,Weight and Vital Signs: Height 6 ft Weight 83.8 kg Last Vital Signs Temp 96.9 F 07/18/25 07:29 Pulse 95 07/18/25 07:29 Resp 16 07/18/25 07:29 BP 141/87 H 07/18/25 04:00 Pulse Ox 97 07/18/25 07:29 O2 Del Method Room Air 07/18/25 07:29 O2 Flow Rate 2 07/12/25 08:37 Pertinent Lab Results Pertinent Lab Results: Laboratory Tests 07/10/25 07/10/25 07/10/25 16:21 16:37 20:00 WBC 26.2 H RBC 3.56 L D Hgb 11.7 L D Hct 33.8 L D MCV 94.9 MCH 32.9 MCHC 34.6 RDW 16.0 Plt Count 130 L D MPV 9.0 L Immature Gran % (Auto) Cancelled Neut % (Auto) Cancelled Lymph % (Auto) Cancelled Walker % (Auto) Cancelled Eos % (Auto) Cancelled Baso % (Auto) Cancelled Lymph # (Auto) Cancelled Walker # (Auto) Cancelled Eos # (Auto) Cancelled Baso # (Auto) Cancelled Abs Immat Gran (auto) Cancelled Absolute Neuts (auto) Cancelled Absolute Nucleated RBC 0.020 H Nucleated RBC % (auto) 0.1 Neutrophils % (Manual) 93 H Band Neutrophils % 3 Lymphocytes % (Manual) 1 L Atypical Lymphs % (Man) Monocytes % (Manual) 1 L Basophils % (Manual) 1 Metamyelocytes % 1 Abs Neuts (Manual) 25.2 H Lymphocytes # (Manual) 0.3 L Atyp Lymphs # (Manual) Monocytes # (Manual) 0.3 Basophils # (Manual) 0.3 H Metamyelocytes # 0.3 Toxic Vacuolation PRESENT Platelet Estimate SLIGHTLY DECREASED Plt Morphology Comment NORMAL RBC Morphology NORMAL Macrocytosis Brent Cells Schistocytes Smear Path Review Hold Purple Top PT 11.2 INR 1.0 Sodium 135 Potassium 4.2 Chloride 102 Carbon Dioxide 20 L Anion Gap 17 BUN 29 H Creatinine 1.68 H Estim Creat Clear Calc 39.7 Estimated GFR 40 POC Glucose Random Glucose 101 Lactic Acid 2.6 H* Lactic Acid F/U @ 2Hr Calcium 8.3 L Magnesium 1.8 Total Bilirubin 1.0 AST 33 ALT 17 Alkaline Phosphatase 66 Troponin I High Sens 13.5 Total Protein 6.1 L Albumin 3.1 L Vancomycin Trough Random Vancomycin C. difficile Tox B Gene Influenza Type A (PCR) NEGATIVE Influenza Type B (PCR) NEGATIVE RSV RNA Qual (PCR) NEGATIVE SARS-CoV-2 RNA (RT-PCR) NEGATIVE Blood Type Antibody Screen 07/10/25 07/11/25 07/11/25 22:10 01:56 05:23 WBC 37.6 H* RBC 3.26 L Hgb 10.9 L Hct 31.6 L MCV 96.9 MCH 33.4 H MCHC 34.5 RDW 16.6 H Plt Count 111 L MPV 9.2 L Immature Gran % (Auto) Cancelled Neut % (Auto) Cancelled Lymph % (Auto) Cancelled Walker % (Auto) Cancelled Eos % (Auto) Cancelled Baso % (Auto) Cancelled Lymph # (Auto) Cancelled Walker # (Auto) Cancelled Eos # (Auto) Cancelled Baso # (Auto) Cancelled Abs Immat Gran (auto) Cancelled Absolute Neuts (auto) Cancelled Absolute Nucleated RBC 0.000 Nucleated RBC % (auto) 0.0 Neutrophils % (Manual) 87 H Band Neutrophils % 7 H Lymphocytes % (Manual) 1 L Atypical Lymphs % (Man) Monocytes % (Manual) 5 Basophils % (Manual) Metamyelocytes % Abs Neuts (Manual) 35.3 H Lymphocytes # (Manual) 0.4 L Atyp Lymphs # (Manual) Monocytes # (Manual) 1.9 H Basophils # (Manual) Metamyelocytes # Toxic Vacuolation PRESENT Platelet Estimate SLIGHTLY DECREASED Plt Morphology Comment NORMAL RBC Morphology NORMAL Macrocytosis Brent Cells Schistocytes Smear Path Review SEE NOTE Hold Purple Top PT INR Sodium 138 Potassium 4.2 Chloride 106 Carbon Dioxide 19 L Anion Gap 17 BUN 29 H Creatinine 1.60 H Estim Creat Clear Calc 41.7 Estimated GFR 42 POC Glucose 127 H Random Glucose 151 H Lactic Acid Lactic Acid F/U @ 2Hr 2.0 Calcium 8.1 L Magnesium Total Bilirubin AST ALT Alkaline Phosphatase Troponin I High Sens Total Protein Albumin Vancomycin Trough Random Vancomycin C. difficile Tox B Gene Influenza Type A (PCR) Influenza Type B (PCR) RSV RNA Qual (PCR) SARS-CoV-2 RNA (RT-PCR) Blood Type Antibody Screen 07/11/25 07/11/25 07/11/25 06:33 07:21 12:35 WBC RBC Hgb Hct MCV MCH MCHC RDW Plt Count MPV Immature Gran % (Auto) Neut % (Auto) Lymph % (Auto) Walker % (Auto) Eos % (Auto) Baso % (Auto) Lymph # (Auto) Walker # (Auto) Eos # (Auto) Baso # (Auto) Abs Immat Gran (auto) Absolute Neuts (auto) Absolute Nucleated RBC Nucleated RBC % (auto) Neutrophils % (Manual) Band Neutrophils % Lymphocytes % (Manual) Atypical Lymphs % (Man) Monocytes % (Manual) Basophils % (Manual) Metamyelocytes % Abs Neuts (Manual) Lymphocytes # (Manual) Atyp Lymphs # (Manual) Monocytes # (Manual) Basophils # (Manual) Metamyelocytes # Toxic Vacuolation Platelet Estimate Plt Morphology Comment RBC Morphology Macrocytosis Brent Cells Schistocytes Smear Path Review Hold Purple Top PT INR Sodium Potassium Chloride Carbon Dioxide Anion Gap BUN Creatinine Estim Creat Clear Calc Estimated GFR POC Glucose 155 H 147 H Random Glucose Lactic Acid Lactic Acid F/U @ 2Hr Calcium Magnesium Total Bilirubin AST ALT Alkaline Phosphatase Troponin I High Sens 15.1 Total Protein Albumin Vancomycin Trough Random Vancomycin C. difficile Tox B Gene Influenza Type A (PCR) Influenza Type B (PCR) RSV RNA Qual (PCR) SARS-CoV-2 RNA (RT-PCR) Blood Type Antibody Screen 07/11/25 07/11/25 07/11/25 13:58 16:13 20:08 WBC RBC Hgb Hct MCV MCH MCHC RDW Plt Count MPV Immature Gran % (Auto) Neut % (Auto) Lymph % (Auto) Walker % (Auto) Eos % (Auto) Baso % (Auto) Lymph # (Auto) Walker # (Auto) Eos # (Auto) Baso # (Auto) Abs Immat Gran (auto) Absolute Neuts (auto) Absolute Nucleated RBC Nucleated RBC % (auto) Neutrophils % (Manual) Band Neutrophils % Lymphocytes % (Manual) Atypical Lymphs % (Man) Monocytes % (Manual) Basophils % (Manual) Metamyelocytes % Abs Neuts (Manual) Lymphocytes # (Manual) Atyp Lymphs # (Manual) Monocytes # (Manual) Basophils # (Manual) Metamyelocytes # Toxic Vacuolation Platelet Estimate Plt Morphology Comment RBC Morphology Macrocytosis Brent Cells Schistocytes Smear Path Review Hold Purple Top PT INR Sodium Potassium Chloride Carbon Dioxide Anion Gap BUN Creatinine Estim Creat Clear Calc Estimated GFR POC Glucose 145 H 140 H 134 H Random Glucose Lactic Acid Lactic Acid F/U @ 2Hr Calcium Magnesium Total Bilirubin AST ALT Alkaline Phosphatase Troponin I High Sens Total Protein Albumin Vancomycin Trough Random Vancomycin C. difficile Tox B Gene Influenza Type A (PCR) Influenza Type B (PCR) RSV RNA Qual (PCR) SARS-CoV-2 RNA (RT-PCR) Blood Type Antibody Screen 07/12/25 07/12/25 07/12/25 07:28 09:13 09:13 WBC Cancelled 23.8 H RBC Cancelled Hgb Hct MCV MCH MCHC RDW Plt Count MPV Immature Gran % (Auto) Neut % (Auto) Lymph % (Auto) Walker % (Auto) Eos % (Auto) Baso % (Auto) Lymph # (Auto) Walker # (Auto) Eos # (Auto) Baso # (Auto) Abs Immat Gran (auto) Absolute Neuts (auto) Absolute Nucleated RBC Nucleated RBC % (auto) Neutrophils % (Manual) Band Neutrophils % Lymphocytes % (Manual) Atypical Lymphs % (Man) Monocytes % (Manual) Basophils % (Manual) Metamyelocytes % Abs Neuts (Manual) Lymphocytes # (Manual) Atyp Lymphs # (Manual) Monocytes # (Manual) Basophils # (Manual) Metamyelocytes # Toxic Vacuolation Platelet Estimate Plt Morphology Comment RBC Morphology Macrocytosis [place] Cells Schistocytes Smear Path Review Hold Purple Top PT INR Sodium Potassium Chloride Carbon Dioxide Anion Gap BUN Creatinine Estim Creat Clear Calc Estimated GFR POC Glucose 130 H Random Glucose Lactic Acid Lactic Acid F/U @ 2Hr Calcium Magnesium Total Bilirubin AST ALT Alkaline Phosphatase Troponin I High Sens Total Protein Albumin Vancomycin Trough Random Vancomycin C. difficile Tox B Gene Influenza Type A (PCR) Influenza Type B (PCR) RSV RNA Qual (PCR) SARS-CoV-2 RNA (RT-PCR) Blood Type Antibody Screen 07/12/25 07/12/25 07/12/25 09:13 09:13 09:13 WBC RBC 3.11 L Hgb Cancelled 10.2 L Hct Cancelled 30.0 L MCV Cancelled MCH MCHC RDW Plt Count MPV Immature Gran % (Auto) Neut % (Auto) Lymph % (Auto) Walker % (Auto) Eos % (Auto) Baso % (Auto) Lymph # (Auto) Walker # (Auto) Eos # (Auto) Baso # (Auto) Abs Immat Gran (auto) Absolute Neuts (auto) Absolute Nucleated RBC Nucleated RBC % (auto) Neutrophils % (Manual) Band Neutrophils % Lymphocytes % (Manual) Atypical Lymphs % (Man) Monocytes % (Manual) Basophils % (Manual) Metamyelocytes % Abs Neuts (Manual) Lymphocytes # (Manual) Atyp Lymphs # (Manual) Monocytes # (Manual) Basophils # (Manual) Metamyelocytes # Toxic Vacuolation Platelet Estimate Plt Morphology Comment RBC Morphology Macrocytosis Brent Cells Schistocytes Smear Path Review Hold Purple Top PT INR Sodium Potassium Chloride Carbon Dioxide Anion Gap BUN Creatinine Estim Creat Clear Calc Estimated GFR POC Glucose Random Glucose Lactic Acid Lactic Acid F/U @ 2Hr Calcium Magnesium Total Bilirubin AST ALT Alkaline Phosphatase Troponin I High Sens Total Protein Albumin Vancomycin Trough Random Vancomycin C. difficile Tox B Gene Influenza Type A (PCR) Influenza Type B (PCR) RSV RNA Qual (PCR) SARS-CoV-2 RNA (RT-PCR) Blood Type Antibody Screen 07/12/25 07/12/25 07/12/25 09:13 09:13 09:13 WBC RBC Hgb Hct MCV 96.5 MCH Cancelled 32.8 MCHC Cancelled 34.0 RDW Cancelled Plt Count MPV Immature Gran % (Auto) Neut % (Auto) Lymph % (Auto) Walker % (Auto) Eos % (Auto) Baso % (Auto) Lymph # (Auto) Walker # (Auto) Eos # (Auto) Baso # (Auto) Abs Immat Gran (auto) Absolute Neuts (auto) Absolute Nucleated RBC Nucleated RBC % (auto) Neutrophils % (Manual) Band Neutrophils % Lymphocytes % (Manual) Atypical Lymphs % (Man) Monocytes % (Manual) Basophils % (Manual) Metamyelocytes % Abs Neuts (Manual) Lymphocytes # (Manual) Atyp Lymphs # (Manual) Monocytes # (Manual) Basophils # (Manual) Metamyelocytes # Toxic Vacuolation Platelet Estimate Plt Morphology Comment RBC Morphology Macrocytosis Brent Cells Schistocytes Smear Path Review Hold Purple Top PT INR Sodium Potassium Chloride Carbon Dioxide Anion Gap BUN Creatinine Estim Creat Clear Calc Estimated GFR POC Glucose Random Glucose Lactic Acid Lactic Acid F/U @ 2Hr Calcium Magnesium Total Bilirubin AST ALT Alkaline Phosphatase Troponin I High Sens Total Protein Albumin Vancomycin Trough Random Vancomycin C. difficile Tox B Gene Influenza Type A (PCR) Influenza Type B (PCR) RSV RNA Qual (PCR) SARS-CoV-2 RNA (RT-PCR) Blood Type Antibody Screen 07/12/25 07/12/25 07/12/25 09:13 09:13 09:13 WBC RBC Hgb Hct MCV MCH MCHC RDW 16.6 H Plt Count Cancelled 106 L MPV Cancelled 10.0 Immature Gran % (Auto) Cancelled Neut % (Auto) Cancelled Lymph % (Auto) Cancelled Walker % (Auto) Cancelled Eos % (Auto) Cancelled Baso % (Auto) Cancelled Lymph # (Auto) Cancelled Walker # (Auto) Cancelled Eos # (Auto) Cancelled Baso # (Auto) Cancelled Abs Immat Gran (auto) Cancelled Absolute Neuts (auto) Cancelled Absolute Nucleated RBC Cancelled Nucleated RBC % (auto) Neutrophils % (Manual) Band Neutrophils % Lymphocytes % (Manual) Atypical Lymphs % (Man) Monocytes % (Manual) Basophils % (Manual) Metamyelocytes % Abs Neuts (Manual) Lymphocytes # (Manual) Atyp Lymphs # (Manual) Monocytes # (Manual) Basophils # (Manual) Metamyelocytes # Toxic Vacuolation Platelet Estimate Plt Morphology Comment RBC Morphology Macrocytosis [place] Cells Schistocytes Smear Path Review Hold Purple Top PT INR Sodium Potassium Chloride Carbon Dioxide Anion Gap BUN Creatinine Estim Creat Clear Calc Estimated GFR POC Glucose Random Glucose Lactic Acid Lactic Acid F/U @ 2Hr Calcium Magnesium Total Bilirubin AST ALT Alkaline Phosphatase Troponin I High Sens Total Protein Albumin Vancomycin Trough Random Vancomycin C. difficile Tox B Gene Influenza Type A (PCR) Influenza Type B (PCR) RSV RNA Qual (PCR) SARS-CoV-2 RNA (RT-PCR) Blood Type Antibody Screen 07/12/25 07/12/25 07/12/25 09:13 09:13 09:13 WBC RBC Hgb Hct MCV MCH MCHC RDW Plt Count MPV Immature Gran % (Auto) Neut % (Auto) Lymph % (Auto) Walker % (Auto) Eos % (Auto) Baso % (Auto) Lymph # (Auto) Walker # (Auto) Eos # (Auto) Baso # (Auto) Abs Immat Gran (auto) Absolute Neuts (auto) Absolute Nucleated RBC 0.000 Nucleated RBC % (auto) Cancelled 0.0 Neutrophils % (Manual) 93 H Band Neutrophils % 2 L Lymphocytes % (Manual) 3 L Atypical Lymphs % (Man) 1 Monocytes % (Manual) 1 L Basophils % (Manual) Metamyelocytes % Abs Neuts (Manual) 22.6 H Lymphocytes # (Manual) 0.7 L Atyp Lymphs # (Manual) 0.2 Monocytes # (Manual) 0.2 Basophils # (Manual) Metamyelocytes # Toxic Vacuolation Platelet Estimate DECREASED Plt Morphology Comment NORMAL RBC Morphology NOTED Macrocytosis 1+ (5-14) [place] Cells 1+ (0-2) Schistocytes 1+ (0-2) Smear Path Review Hold Purple Top SEE NOTE PT INR Sodium 139 139 Potassium 3.6 Chloride Carbon Dioxide Anion Gap BUN Creatinine Estim Creat Clear Calc Estimated GFR POC Glucose Random Glucose Lactic Acid Lactic Acid F/U @ 2Hr Calcium Magnesium Total Bilirubin AST ALT Alkaline Phosphatase Troponin I High Sens Total Protein Albumin Vancomycin Trough Random Vancomycin C. difficile Tox B Gene Influenza Type A (PCR) Influenza Type B (PCR) RSV RNA Qual (PCR) SARS-CoV-2 RNA (RT-PCR) Blood Type Antibody Screen 07/12/25 07/12/25 07/12/25 09:13 09:13 09:13 WBC RBC Hgb Hct MCV MCH MCHC RDW Plt Count MPV Immature Gran % (Auto) Neut % (Auto) Lymph % (Auto) Walker % (Auto) Eos % (Auto) Baso % (Auto) Lymph # (Auto) Walker # (Auto) Eos # (Auto) Baso # (Auto) Abs Immat Gran (auto) Absolute Neuts (auto) Absolute Nucleated RBC Nucleated RBC % (auto) Neutrophils % (Manual) Band Neutrophils % Lymphocytes % (Manual) Atypical Lymphs % (Man) Monocytes % (Manual) Basophils % (Manual) Metamyelocytes % Abs Neuts (Manual) Lymphocytes # (Manual) Atyp Lymphs # (Manual) Monocytes # (Manual) Basophils # (Manual) Metamyelocytes # Toxic Vacuolation Platelet Estimate Plt Morphology Comment RBC Morphology Macrocytosis [place] Cells Schistocytes Smear Path Review Hold Purple Top PT INR Sodium Potassium 3.6 Chloride 107 106 Carbon Dioxide 20 L 20 L Anion Gap 16 BUN Creatinine Estim Creat Clear Calc Estimated GFR POC Glucose Random Glucose Lactic Acid Lactic Acid F/U @ 2Hr Calcium Magnesium Total Bilirubin AST ALT Alkaline Phosphatase Troponin I High Sens Total Protein Albumin Vancomycin Trough Random Vancomycin C. difficile Tox B Gene Influenza Type A (PCR) Influenza Type B (PCR) RSV RNA Qual (PCR) SARS-CoV-2 RNA (RT-PCR) Blood Type Antibody Screen 07/12/25 07/12/25 07/12/25 09:13 09:13 09:13 WBC RBC Hgb Hct MCV MCH MCHC RDW Plt Count MPV Immature Gran % (Auto) Neut % (Auto) Lymph % (Auto) Walker % (Auto) Eos % (Auto) Baso % (Auto) Lymph # (Auto) Walker # (Auto) Eos # (Auto) Baso # (Auto) Abs Immat Gran (auto) Absolute Neuts (auto) Absolute Nucleated RBC Nucleated RBC % (auto) Neutrophils % (Manual) Band Neutrophils % Lymphocytes % (Manual) Atypical Lymphs % (Man) Monocytes % (Manual) Basophils % (Manual) Metamyelocytes % Abs Neuts (Manual) Lymphocytes # (Manual) Atyp Lymphs # (Manual) Monocytes # (Manual) Basophils # (Manual) Metamyelocytes # Toxic Vacuolation Platelet Estimate Plt Morphology Comment RBC Morphology Macrocytosis Brent Cells Schistocytes Smear Path Review Hold Purple Top PT INR Sodium Potassium Chloride Carbon Dioxide Anion Gap 17 BUN 31 H 32 H Creatinine 1.21 1.22 Estim Creat Clear Calc Estimated GFR POC Glucose Random Glucose Lactic Acid Lactic Acid F/U @ 2Hr Calcium Magnesium Total Bilirubin AST ALT Alkaline Phosphatase Troponin I High Sens Total Protein Albumin Vancomycin Trough Random Vancomycin C. difficile Tox B Gene Influenza Type A (PCR) Influenza Type B (PCR) RSV RNA Qual (PCR) SARS-CoV-2 RNA (RT-PCR) Blood Type Antibody Screen 07/12/25 07/12/25 07/12/25 09:13 09:13 09:13 WBC RBC Hgb Hct MCV MCH MCHC RDW Plt Count MPV Immature Gran % (Auto) Neut % (Auto) Lymph % (Auto) Walker % (Auto) Eos % (Auto) Baso % (Auto) Lymph # (Auto) Walker # (Auto) Eos # (Auto) Baso # (Auto) Abs Immat Gran (auto) Absolute Neuts (auto) Absolute Nucleated RBC Nucleated RBC % (auto) Neutrophils % (Manual) Band Neutrophils % Lymphocytes % (Manual) Atypical Lymphs % (Man) Monocytes % (Manual) Basophils % (Manual) Metamyelocytes % Abs Neuts (Manual) Lymphocytes # (Manual) Atyp Lymphs # (Manual) Monocytes # (Manual) Basophils # (Manual) Metamyelocytes # Toxic Vacuolation Platelet Estimate Plt Morphology Comment RBC Morphology Macrocytosis [place] Cells Schistocytes Smear Path Review Hold Purple Top PT INR Sodium Potassium Chloride Carbon Dioxide Anion Gap BUN Creatinine 1.20 Estim Creat Clear Calc 55.2 54.7 55.6 Estimated GFR 58 POC Glucose Random Glucose Lactic Acid Lactic Acid F/U @ 2Hr Calcium Magnesium Total Bilirubin AST ALT Alkaline Phosphatase Troponin I High Sens Total Protein Albumin Vancomycin Trough Random Vancomycin C. difficile Tox B Gene Influenza Type A (PCR) Influenza Type B (PCR) RSV RNA Qual (PCR) SARS-CoV-2 RNA (RT-PCR) Blood Type Antibody Screen 07/12/25 07/12/25 07/12/25 09:13 09:13 09:13 WBC RBC Hgb Hct MCV MCH MCHC RDW Plt Count MPV Immature Gran % (Auto) Neut % (Auto) Lymph % (Auto) Walker % (Auto) Eos % (Auto) Baso % (Auto) Lymph # (Auto) Walker # (Auto) Eos # (Auto) Baso # (Auto) Abs Immat Gran (auto) Absolute Neuts (auto) Absolute Nucleated RBC Nucleated RBC % (auto) Neutrophils % (Manual) Band Neutrophils % Lymphocytes % (Manual) Atypical Lymphs % (Man) Monocytes % (Manual) Basophils % (Manual) Metamyelocytes % Abs Neuts (Manual) Lymphocytes # (Manual) Atyp Lymphs # (Manual) Monocytes # (Manual) Basophils # (Manual) Metamyelocytes # Toxic Vacuolation Platelet Estimate Plt Morphology Comment RBC Morphology Macrocytosis [place] Cells Schistocytes Smear Path Review Hold Purple Top PT INR Sodium Potassium Chloride Carbon Dioxide Anion Gap BUN Creatinine Estim Creat Clear Calc Estimated GFR 57 59 POC Glucose Random Glucose 146 H 146 H Lactic Acid Lactic Acid F/U @ 2Hr Calcium 8.2 L Magnesium Total Bilirubin AST ALT Alkaline Phosphatase Troponin I High Sens Total Protein Albumin Vancomycin Trough Random Vancomycin C. difficile Tox B Gene Influenza Type A (PCR) Influenza Type B (PCR) RSV RNA Qual (PCR) SARS-CoV-2 RNA (RT-PCR) Blood Type Antibody Screen 07/12/25 07/12/25 07/12/25 09:13 10:52 15:40 WBC RBC Hgb Hct MCV MCH MCHC RDW Plt Count MPV Immature Gran % (Auto) Neut % (Auto) Lymph % (Auto) Walker % (Auto) Eos % (Auto) Baso % (Auto) Lymph # (Auto) Walker # (Auto) Eos # (Auto) Baso # (Auto) Abs Immat Gran (auto) Absolute Neuts (auto) Absolute Nucleated RBC Nucleated RBC % (auto) Neutrophils % (Manual) Band Neutrophils % Lymphocytes % (Manual) Atypical Lymphs % (Man) Monocytes % (Manual) Basophils % (Manual) Metamyelocytes % Abs Neuts (Manual) Lymphocytes # (Manual) Atyp Lymphs # (Manual) Monocytes # (Manual) Basophils # (Manual) Metamyelocytes # Toxic Vacuolation Platelet Estimate Plt Morphology Comment RBC Morphology Macrocytosis Brent Cells Schistocytes Smear Path Review Hold Purple Top PT INR Sodium Potassium Chloride Carbon Dioxide Anion Gap BUN Creatinine Estim Creat Clear Calc Estimated GFR POC Glucose 130 H 133 H Random Glucose Lactic Acid Lactic Acid F/U @ 2Hr Calcium 8.2 L Magnesium Total Bilirubin AST ALT Alkaline Phosphatase Troponin I High Sens Total Protein Albumin Vancomycin Trough Random Vancomycin C. difficile Tox B Gene Influenza Type A (PCR) Influenza Type B (PCR) RSV RNA Qual (PCR) SARS-CoV-2 RNA (RT-PCR) Blood Type B Positive Antibody Screen NEGATIVE 07/12/25 07/13/25 07/13/25 19:46 07:55 08:48 WBC RBC Hgb Hct MCV MCH MCHC RDW Plt Count MPV Immature Gran % (Auto) Neut % (Auto) Lymph % (Auto) Walker % (Auto) Eos % (Auto) Baso % (Auto) Lymph # (Auto) Walker # (Auto) Eos # (Auto) Baso # (Auto) Abs Immat Gran (auto) Absolute Neuts (auto) Absolute Nucleated RBC Nucleated RBC % (auto) Neutrophils % (Manual) Band Neutrophils % Lymphocytes % (Manual) Atypical Lymphs % (Man) Monocytes % (Manual) Basophils % (Manual) Metamyelocytes % Abs Neuts (Manual) Lymphocytes # (Manual) Atyp Lymphs # (Manual) Monocytes # (Manual) Basophils # (Manual) Metamyelocytes # Toxic Vacuolation Platelet Estimate Plt Morphology Comment RBC Morphology Macrocytosis [place] Cells Schistocytes Smear Path Review Hold Purple Top PT INR Sodium Potassium Chloride Carbon Dioxide Anion Gap BUN Creatinine 0.97 Estim Creat Clear Calc 68.8 Estimated GFR > 60 POC Glucose 137 H 113 Random Glucose Lactic Acid Lactic Acid F/U @ 2Hr Calcium Magnesium Total Bilirubin AST ALT Alkaline Phosphatase Troponin I High Sens Total Protein Albumin Vancomycin Trough Random Vancomycin C. difficile Tox B Gene Influenza Type A (PCR) Influenza Type B (PCR) RSV RNA Qual (PCR) SARS-CoV-2 RNA (RT-PCR) Blood Type Antibody Screen 07/13/25 07/13/25 07/13/25 11:07 15:05 16:14 WBC RBC Hgb Hct MCV MCH MCHC RDW Plt Count MPV Immature Gran % (Auto) Neut % (Auto) Lymph % (Auto) Walker % (Auto) Eos % (Auto) Baso % (Auto) Lymph # (Auto) Walker # (Auto) Eos # (Auto) Baso # (Auto) Abs Immat Gran (auto) Absolute Neuts (auto) Absolute Nucleated RBC Nucleated RBC % (auto) Neutrophils % (Manual) Band Neutrophils % Lymphocytes % (Manual) Atypical Lymphs % (Man) Monocytes % (Manual) Basophils % (Manual) Metamyelocytes % Abs Neuts (Manual) Lymphocytes # (Manual) Atyp Lymphs # (Manual) Monocytes # (Manual) Basophils # (Manual) Metamyelocytes # Toxic Vacuolation Platelet Estimate Plt Morphology Comment RBC Morphology Macrocytosis Brent Cells Schistocytes Smear Path Review Hold Purple Top PT INR Sodium Potassium Chloride Carbon Dioxide Anion Gap BUN Creatinine Estim Creat Clear Calc Estimated GFR POC Glucose 116 H 154 H Random Glucose Lactic Acid Lactic Acid F/U @ 2Hr Calcium Magnesium Total Bilirubin AST ALT Alkaline Phosphatase Troponin I High Sens Total Protein Albumin Vancomycin Trough Random Vancomycin C. difficile Tox B Gene NEGATIVE Influenza Type A (PCR) Influenza Type B (PCR) RSV RNA Qual (PCR) SARS-CoV-2 RNA (RT-PCR) Blood Type Antibody Screen 07/13/25 07/13/25 07/14/25 19:57 20:27 07:06 WBC RBC Hgb Hct MCV MCH MCHC RDW Plt Count MPV Immature Gran % (Auto) Neut % (Auto) Lymph % (Auto) Walker % (Auto) Eos % (Auto) Baso % (Auto) Lymph # (Auto) Walker # (Auto) Eos # (Auto) Baso # (Auto) Abs Immat Gran (auto) Absolute Neuts (auto) Absolute Nucleated RBC Nucleated RBC % (auto) Neutrophils % (Manual) Band Neutrophils % Lymphocytes % (Manual) Atypical Lymphs % (Man) Monocytes % (Manual) Basophils % (Manual) Metamyelocytes % Abs Neuts (Manual) Lymphocytes # (Manual) Atyp Lymphs # (Manual) Monocytes # (Manual) Basophils # (Manual) Metamyelocytes # Toxic Vacuolation Platelet Estimate Plt Morphology Comment RBC Morphology Macrocytosis [place] Cells Schistocytes Smear Path Review Hold Purple Top PT INR Sodium Potassium Chloride Carbon Dioxide Anion Gap BUN Creatinine Estim Creat Clear Calc Estimated GFR POC Glucose 117 H 74 Random Glucose Lactic Acid Lactic Acid F/U @ 2Hr Calcium Magnesium Total Bilirubin AST ALT Alkaline Phosphatase Troponin I High Sens Total Protein Albumin Vancomycin Trough Random Vancomycin 17.8 C. difficile Tox B Gene Influenza Type A (PCR) Influenza Type B (PCR) RSV RNA Qual (PCR) SARS-CoV-2 RNA (RT-PCR) Blood Type Antibody Screen 07/14/25 07/14/25 07/14/25 08:19 11:18 16:03 WBC 13.6 H RBC 2.94 L Hgb 9.6 L Hct 27.9 L MCV 94.9 MCH 32.7 MCHC 34.4 RDW 16.2 H Plt Count 127 L MPV 10.3 Immature Gran % (Auto) Neut % (Auto) Lymph % (Auto) Walker % (Auto) Eos % (Auto) Baso % (Auto) Lymph # (Auto) Walker # (Auto) Eos # (Auto) Baso # (Auto) Abs Immat Gran (auto) Absolute Neuts (auto) Absolute Nucleated RBC 0.000 Nucleated RBC % (auto) 0.0 Neutrophils % (Manual) Band Neutrophils % Lymphocytes % (Manual) Atypical Lymphs % (Man) Monocytes % (Manual) Basophils % (Manual) Metamyelocytes % Abs Neuts (Manual) Lymphocytes # (Manual) Atyp Lymphs # (Manual) Monocytes # (Manual) Basophils # (Manual) Metamyelocytes # Toxic Vacuolation Platelet Estimate Plt Morphology Comment RBC Morphology Macrocytosis [place] Cells Schistocytes Smear Path Review Hold Purple Top PT INR Sodium 141 Potassium 3.2 L Chloride 108 Carbon Dioxide 21 L Anion Gap 15 BUN 37 H Creatinine 1.13 Estim Creat Clear Calc 59.1 Estimated GFR > 60 POC Glucose 82 100 Random Glucose 80 Lactic Acid Lactic Acid F/U @ 2Hr Calcium 8.4 Magnesium Total Bilirubin AST ALT Alkaline Phosphatase Troponin I High Sens Total Protein Albumin Vancomycin Trough Random Vancomycin C. difficile Tox B Gene Influenza Type A (PCR) Influenza Type B (PCR) RSV RNA Qual (PCR) SARS-CoV-2 RNA (RT-PCR) Blood Type Antibody Screen 07/14/25 07/15/25 07/15/25 20:15 06:22 07:16 WBC 8.1 RBC 2.97 L Hgb 9.7 L Hct 27.7 L MCV 93.3 MCH 32.7 MCHC 35.0 RDW 16.1 H Plt Count 106 L MPV 10.2 Immature Gran % (Auto) Neut % (Auto) Lymph % (Auto) Walker % (Auto) Eos % (Auto) Baso % (Auto) Lymph # (Auto) Walker # (Auto) Eos # (Auto) Baso # (Auto) Abs Immat Gran (auto) Absolute Neuts (auto) Absolute Nucleated RBC 0.000 Nucleated RBC % (auto) 0.0 Neutrophils % (Manual) Band Neutrophils % Lymphocytes % (Manual) Atypical Lymphs % (Man) Monocytes % (Manual) Basophils % (Manual) Metamyelocytes % Abs Neuts (Manual) Lymphocytes # (Manual) Atyp Lymphs # (Manual) Monocytes # (Manual) Basophils # (Manual) Metamyelocytes # Toxic Vacuolation Platelet Estimate Plt Morphology Comment RBC Morphology Macrocytosis [place] Cells Schistocytes Smear Path Review Hold Purple Top PT INR Sodium 139 Potassium 3.1 L Chloride 107 Carbon Dioxide 19 L Anion Gap 16 BUN 43 H Creatinine 1.08 Estim Creat Clear Calc 61.8 Estimated GFR > 60 POC Glucose 111 91 Random Glucose 88 Lactic Acid Lactic Acid F/U @ 2Hr Calcium 8.3 L Magnesium 2.1 Total Bilirubin AST ALT Alkaline Phosphatase Troponin I High Sens Total Protein Albumin Vancomycin Trough Random Vancomycin C. difficile Tox B Gene Influenza Type A (PCR) Influenza Type B (PCR) RSV RNA Qual (PCR) SARS-CoV-2 RNA (RT-PCR) Blood Type Antibody Screen 07/15/25 07/15/25 07/15/25 11:06 16:12 19:51 WBC RBC Hgb Hct MCV MCH MCHC RDW Plt Count MPV Immature Gran % (Auto) Neut % (Auto) Lymph % (Auto) Walker % (Auto) Eos % (Auto) Baso % (Auto) Lymph # (Auto) Walker # (Auto) Eos # (Auto) Baso # (Auto) Abs Immat Gran (auto) Absolute Neuts (auto) Absolute Nucleated RBC Nucleated RBC % (auto) Neutrophils % (Manual) Band Neutrophils % Lymphocytes % (Manual) Atypical Lymphs % (Man) Monocytes % (Manual) Basophils % (Manual) Metamyelocytes % Abs Neuts (Manual) Lymphocytes # (Manual) Atyp Lymphs # (Manual) Monocytes # (Manual) Basophils # (Manual) Metamyelocytes # Toxic Vacuolation Platelet Estimate Plt Morphology Comment RBC Morphology Macrocytosis Brent Cells Schistocytes Smear Path Review Hold Purple Top PT INR Sodium Potassium Chloride Carbon Dioxide Anion Gap BUN Creatinine Estim Creat Clear Calc Estimated GFR POC Glucose 98 145 H Random Glucose Lactic Acid Lactic Acid F/U @ 2Hr Calcium Magnesium Total Bilirubin AST ALT Alkaline Phosphatase Troponin I High Sens Total Protein Albumin Vancomycin Trough Random Vancomycin 23.8 H C. difficile Tox B Gene Influenza Type A (PCR) Influenza Type B (PCR) RSV RNA Qual (PCR) SARS-CoV-2 RNA (RT-PCR) Blood Type Antibody Screen 07/15/25 07/16/25 07/16/25 20:24 07:33 09:43 WBC 2.8 L RBC 2.88 L Hgb 9.2 L Hct 27.1 L MCV 94.1 MCH 31.9 MCHC 33.9 RDW 16.0 Plt Count 109 L MPV 10.2 Immature Gran % (Auto) Neut % (Auto) Lymph % (Auto) Walker % (Auto) Eos % (Auto) Baso % (Auto) Lymph # (Auto) Walker # (Auto) Eos # (Auto) Baso # (Auto) Abs Immat Gran (auto) Absolute Neuts (auto) Absolute Nucleated RBC 0.000 Nucleated RBC % (auto) 0.0 Neutrophils % (Manual) Band Neutrophils % Lymphocytes % (Manual) Atypical Lymphs % (Man) Monocytes % (Manual) Basophils % (Manual) Metamyelocytes % Abs Neuts (Manual) Lymphocytes # (Manual) Atyp Lymphs # (Manual) Monocytes # (Manual) Basophils # (Manual) Metamyelocytes # Toxic Vacuolation Platelet Estimate Plt Morphology Comment RBC Morphology Macrocytosis Brent Cells Schistocytes Smear Path Review Hold Purple Top PT INR Sodium 140 Potassium 3.2 L Chloride 109 H Carbon Dioxide 17 L Anion Gap 17 BUN 44 H Creatinine 1.07 Estim Creat Clear Calc 62.4 Estimated GFR > 60 POC Glucose 134 H 73 Random Glucose 77 Lactic Acid Lactic Acid F/U @ 2Hr Calcium 8.2 L Magnesium Total Bilirubin AST ALT Alkaline Phosphatase Troponin I High Sens Total Protein Albumin Vancomycin Trough Random Vancomycin 22.7 H C. difficile Tox B Gene Influenza Type A (PCR) Influenza Type B (PCR) RSV RNA Qual (PCR) SARS-CoV-2 RNA (RT-PCR) Blood Type Antibody Screen 07/16/25 07/16/25 07/16/25 11:36 16:17 19:59 WBC RBC Hgb Hct MCV MCH MCHC RDW Plt Count MPV Immature Gran % (Auto) Neut % (Auto) Lymph % (Auto) Walker % (Auto) Eos % (Auto) Baso % (Auto) Lymph # (Auto) Walker # (Auto) Eos # (Auto) Baso # (Auto) Abs Immat Gran (auto) Absolute Neuts (auto) Absolute Nucleated RBC Nucleated RBC % (auto) Neutrophils % (Manual) Band Neutrophils % Lymphocytes % (Manual) Atypical Lymphs % (Man) Monocytes % (Manual) Basophils % (Manual) Metamyelocytes % Abs Neuts (Manual) Lymphocytes # (Manual) Atyp Lymphs # (Manual) Monocytes # (Manual) Basophils # (Manual) Metamyelocytes # Toxic Vacuolation Platelet Estimate Plt Morphology Comment RBC Morphology Macrocytosis Brent Cells Schistocytes Smear Path Review Hold Purple Top PT INR Sodium Potassium Chloride Carbon Dioxide Anion Gap BUN Creatinine Estim Creat Clear Calc Estimated GFR POC Glucose 72 72 70 Random Glucose Lactic Acid Lactic Acid F/U @ 2Hr Calcium Magnesium Total Bilirubin AST ALT Alkaline Phosphatase Troponin I High Sens Total Protein Albumin Vancomycin Trough Random Vancomycin C. difficile Tox B Gene Influenza Type A (PCR) Influenza Type B (PCR) RSV RNA Qual (PCR) SARS-CoV-2 RNA (RT-PCR) Blood Type Antibody Screen 07/16/25 07/17/25 07/17/25 22:05 07:37 08:22 WBC RBC Hgb Hct MCV MCH MCHC RDW Plt Count MPV Immature Gran % (Auto) Neut % (Auto) Lymph % (Auto) Walker % (Auto) Eos % (Auto) Baso % (Auto) Lymph # (Auto) Walker # (Auto) Eos # (Auto) Baso # (Auto) Abs Immat Gran (auto) Absolute Neuts (auto) Absolute Nucleated RBC Nucleated RBC % (auto) Neutrophils % (Manual) Band Neutrophils % Lymphocytes % (Manual) Atypical Lymphs % (Man) Monocytes % (Manual) Basophils % (Manual) Metamyelocytes % Abs Neuts (Manual) Lymphocytes # (Manual) Atyp Lymphs # (Manual) Monocytes # (Manual) Basophils # (Manual) Metamyelocytes # Toxic Vacuolation Platelet Estimate Plt Morphology Comment RBC Morphology Macrocytosis [place] Cells Schistocytes Smear Path Review Hold Purple Top PT INR Sodium Potassium Chloride Carbon Dioxide Anion Gap BUN Creatinine Estim Creat Clear Calc Estimated GFR POC Glucose 58 L* 141 H Random Glucose Lactic Acid Lactic Acid F/U @ 2Hr Calcium Magnesium Total Bilirubin AST ALT Alkaline Phosphatase Troponin I High Sens Total Protein Albumin Vancomycin Trough Random Vancomycin 20.8 H C. difficile Tox B Gene Influenza Type A (PCR) Influenza Type B (PCR) RSV RNA Qual (PCR) SARS-CoV-2 RNA (RT-PCR) Blood Type Antibody Screen 07/17/25 07/17/25 07/17/25 09:01 09:05 11:27 WBC RBC Hgb Hct MCV MCH MCHC RDW Plt Count MPV Immature Gran % (Auto) Neut % (Auto) Lymph % (Auto) Walker % (Auto) Eos % (Auto) Baso % (Auto) Lymph # (Auto) Walker # (Auto) Eos # (Auto) Baso # (Auto) Abs Immat Gran (auto) Absolute Neuts (auto) Absolute Nucleated RBC Nucleated RBC % (auto) Neutrophils % (Manual) Band Neutrophils % Lymphocytes % (Manual) Atypical Lymphs % (Man) Monocytes % (Manual) Basophils % (Manual) Metamyelocytes % Abs Neuts (Manual) Lymphocytes # (Manual) Atyp Lymphs # (Manual) Monocytes # (Manual) Basophils # (Manual) Metamyelocytes # Toxic Vacuolation Platelet Estimate Plt Morphology Comment RBC Morphology Macrocytosis Brent Cells Schistocytes Smear Path Review Hold Purple Top SEE NOTE PT INR Sodium 143 Potassium 3.1 L Chloride 110 H Carbon Dioxide 19 L Anion Gap 17 BUN 42 H Creatinine 0.97 Estim Creat Clear Calc 68.8 Estimated GFR > 60 POC Glucose 100 Random Glucose 144 H Lactic Acid Lactic Acid F/U @ 2Hr Calcium 8.2 L Magnesium Total Bilirubin AST ALT Alkaline Phosphatase Troponin I High Sens Total Protein Albumin Vancomycin Trough Random Vancomycin 18.2 C. difficile Tox B Gene Influenza Type A (PCR) Influenza Type B (PCR) RSV RNA Qual (PCR) SARS-CoV-2 RNA (RT-PCR) Blood Type Antibody Screen 07/17/25 07/17/25 07/17/25 16:23 19:40 20:04 WBC RBC Hgb Hct MCV MCH MCHC RDW Plt Count MPV Immature Gran % (Auto) Neut % (Auto) Lymph % (Auto) Walker % (Auto) Eos % (Auto) Baso % (Auto) Lymph # (Auto) Walker # (Auto) Eos # (Auto) Baso # (Auto) Abs Immat Gran (auto) Absolute Neuts (auto) Absolute Nucleated RBC Nucleated RBC % (auto) Neutrophils % (Manual) Band Neutrophils % Lymphocytes % (Manual) Atypical Lymphs % (Man) Monocytes % (Manual) Basophils % (Manual) Metamyelocytes % Abs Neuts (Manual) Lymphocytes # (Manual) Atyp Lymphs # (Manual) Monocytes # (Manual) Basophils # (Manual) Metamyelocytes # Toxic Vacuolation Platelet Estimate Plt Morphology Comment RBC Morphology Macrocytosis [place] Cells Schistocytes Smear Path Review Hold Purple Top PT INR Sodium Potassium Chloride Carbon Dioxide Anion Gap BUN Creatinine Estim Creat Clear Calc Estimated GFR POC Glucose 150 H 175 H Random Glucose Lactic Acid Lactic Acid F/U @ 2Hr Calcium Magnesium Total Bilirubin AST ALT Alkaline Phosphatase Troponin I High Sens Total Protein Albumin Vancomycin Trough 15.4 Random Vancomycin C. difficile Tox B Gene Influenza Type A (PCR) Influenza Type B (PCR) RSV RNA Qual (PCR) SARS-CoV-2 RNA (RT-PCR) Blood Type Antibody Screen 07/17/25 07/18/25 07/18/25 21:24 06:07 07:28 WBC RBC Hgb Hct MCV MCH MCHC RDW Plt Count MPV Immature Gran % (Auto) Neut % (Auto) Lymph % (Auto) Walker % (Auto) Eos % (Auto) Baso % (Auto) Lymph # (Auto) Walker # (Auto) Eos # (Auto) Baso # (Auto) Abs Immat Gran (auto) Absolute Neuts (auto) Absolute Nucleated RBC Nucleated RBC % (auto) Neutrophils % (Manual) Band Neutrophils % Lymphocytes % (Manual) Atypical Lymphs % (Man) Monocytes % (Manual) Basophils % (Manual) Metamyelocytes % Abs Neuts (Manual) Lymphocytes # (Manual) Atyp Lymphs # (Manual) Monocytes # (Manual) Basophils # (Manual) Metamyelocytes # Toxic Vacuolation Platelet Estimate Plt Morphology Comment RBC Morphology Macrocytosis Brent Cells Schistocytes Smear Path Review Hold Purple Top PT INR Sodium 145 Potassium 3.2 L Chloride 111 H Carbon Dioxide 20 L Anion Gap 17 BUN 26 H Creatinine 0.82 Estim Creat Clear Calc 81.4 Estimated GFR > 60 POC Glucose 140 H 167 H Random Glucose 158 H Lactic Acid Lactic Acid F/U @ 2Hr Calcium 8.0 L Magnesium Total Bilirubin AST ALT Alkaline Phosphatase Troponin I High Sens Total Protein Albumin Vancomycin Trough Random Vancomycin C. difficile Tox B Gene Influenza Type A (PCR) Influenza Type B (PCR) RSV RNA Qual (PCR) SARS-CoV-2 RNA (RT-PCR) Blood Type Antibody Screen Narrative Narrative: EKG 07/10/25 Vent. Rate : 98 BPM Atrial Rate : 98 BPM P-R Int : 158 ms QRS Dur : 88 ms QT Int : 402 ms P-R-T Axes : 47 32 268 degrees QTcB Int : 513 ms Sinus rhythm with frequent Premature ventricular complexes ST & T wave abnormality, consider inferolateral ischemia Abnormal ECG When compared with ECG of 12-Jul-2025 10:50, ST less elevated in Inferior leads Non-specific change in ST segment in Lateral leads Echo 07/2025 Conclusions: - Normal left ventricular size, thickness, and systolic function. The visually estimated ejection fraction is between 60-65%. - Normal right ventricular cavity size and systolic function. - There is mild dilatation of the ascending aorta measuring 3.90 cm. - There is a moderate loculated pericardial effusion overlying the right atrium. There are no definitive echocardiographic findings of tamponade physiology. There is excessive respiratory variation of the tricuspid valve Doppler velocities.
--- NOTE | 2025-07-18 09:24 | PC.NURSE ---
K 3.2 notified
[2025-07-18] MEDS: Potassium Chloride/H20 10 MEQ/100 ML PIGGYBACK 100 MEQ IV ×2 (10:29→11:33)
--- NOTE | 2025-07-18 10:45 | P.CONAN_ITS ---
[facility] Active Problems Active Problems: All Active Problems (Updated 07/16/25 @ 22:20 by Priyanka Solis MD) Duodenal obstruction (Acute) MRSA bacteremia (Acute) Proctitis (Acute) Coffee ground emesis (Acute) Obstipation (Acute) Sepsis (Acute) Gram-positive cocci bacteremia (Acute) Acute UTI (urinary tract infection) (Acute) Steroid dependence (Acute) Multiple sclerosis (Acute) Obstructive uropathy (Acute) Chronic indwelling Nunez catheter (Acute) Neurogenic bladder (Acute) Decubitus ulcer of coccygeal region, stage 2 (Acute) Acute metabolic encephalopathy (Acute) Past Medical History Medical History Steroid dependence EDWARD (acute kidney injury) UTI (urinary tract infection) due to urinary indwelling Nunez catheter Bullous pemphigoid Decubitus ulcer of coccygeal region, stage 2 Acute hypotension Sepsis Aspiration pneumonitis Recurrent UTI (urinary tract infection) Hypotonic neurogenic bladder Lytic lesion of bone on x-ray Wound of foot Anemia Septic shock Shoulder pain Constipation Hematuria Multiple sclerosis Depression Diabetes mellitus type 2 in obese Chronic pain syndrome BPH (benign prostatic hyperplasia) Dehydration Chronic renal failure Urinary tract infection Family History Family History Family/Other Heart attack Father Diabetes Family history of problems with anesthesia: No Surgical History Surgical History Hx of removal of cyst History of Problems with Anesthesia: No Social History Social History Household Members: Unknown / Unable to assess Household Members Other:: lives at [facility] in [place] Housing: Jail Housing Other:: [facility] Unable to assess alcohol history related to: Unable to respond Alcohol intake: never Comment: BEDFAST Patient Tobacco Use Status: Former Tobacco user Cigarette Packs Per Day: 1 Advance Directives Date on File: 10/13/20 service: Yes Current occupational status: retired Meds Allergies Allergy/AdvReac Type Severity Reaction Status Date / Time Benzodiazepines Allergy Unknown UNKNOWN Verified 07/10/25 16:36 (BENZODIAZEPINES) dalfampridine (From AMPYRA) Allergy Unknown UNKNOWN Verified 07/10/25 16:36 duloxetine (From CYMBALTA) Allergy Unknown UNKNOWN Verified 07/10/25 16:36 ezetimibe (From ZETIA) Allergy Unknown UNKNOWN Verified 07/10/25 16:36 niacin (NIACIN) Allergy Unknown UNKNOWN Verified 07/10/25 16:36 pravastatin (PRAVASTATIN) Allergy Unknown UNKNOWN Verified 07/10/25 16:36 [id number] Reductase Allergy Unknown UNKNOWN Verified 07/10/25 16:36 Inhibitor ([id number] REDUCTASE INHIBITOR) lorazepam (From ATIVAN) AdvReac Severe EXCESSIVE Verified 07/10/25 16:36 SEDATION doxycycline (DOXYCYCLINE) AdvReac Mild esophogeal Verified 07/10/25 16:36 iritation methylprednisolone (From AdvReac Mild heartburn Verified 07/10/25 16:36 SOLU-MEDROL) ertapenem (From INVANZ) AdvReac Unknown possible Verified 07/10/25 16:36 cause of bullous pemphigoid Active Medications: Current Medications Acetaminophen (Acetaminophen 325 Mg Tablet) 650 mg PO Q6H PRN PRN Reason: Pain, Mild 1-3,fever,headache Last Admin: 07/17/25 15:42 Dose: 650 mg Acetaminophen (Acetaminophen 325 Mg Tablet) 650 mg PO BEDTIME [facility] Last Admin: 07/17/25 20:29 Dose: 650 mg Amlodipine Besylate (Amlodipine Besylate 10 Mg Tablet) 10 mg PO DAILY [facility]; Protocol Last Admin: 07/18/25 09:18 Dose: 10 mg Ascorbic Acid (Ascorbic Acid 500 Mg Tablet) 500 mg PO DAILY [facility] Last Admin: 07/18/25 09:21 Dose: Not Given Aspirin (Aspirin Enteric Coated 81 Mg Tablet.Dr) 81 mg PO DAILY [facility] Last Admin: 07/18/25 09:22 Dose: Not Given Atorvastatin Calcium (Atorvastatin Calcium 10 Mg Tablet) 10 mg PO DAILY [facility] Last Admin: 07/18/25 09:22 Dose: Not Given Bacitracin (Bacitracin Oint 14 Gm Tube) 1 appl TOPICAL BID [facility]; Protocol Last Admin: 07/18/25 10:28 Dose: 1 appl Benzocaine (Throat Lozenge, Medicated Lozenge) 1 lozenge MUCOUS MEM Q2H PRN PRN Reason: Sore Throat Last Admin: 07/18/25 05:30 Dose: 1 lozenge Bisacodyl (Bisacodyl 5 Mg Tablet.Dr) 5 mg PO DAILY PRN PRN Reason: Constipation Bisacodyl (Bisacodyl 10 Mg Supp.Rect) 10 mg MO DAILY PRN PRN Reason: Constipation Bisacodyl (Bisacodyl 10 Mg Supp.Rect) 10 mg MO Q3D [facility] Last Admin: 07/18/25 09:30 Dose: 10 mg Bismuth Subsalicylate (Bismuth Subsalicylate Liquid 524 Mg/30 Ml Oral.Susp) 524 mg PO Q8H PRN PRN Reason: UPSET STOMACH/NAUSEA Calcium Carbonate (Calcium Carbonate 750 Mg Tab.Chew) 750 mg PO Q4H PRN PRN Reason: Heartburn Last Admin: 07/12/25 03:39 Dose: 750 mg Carvedilol (Carvedilol 6.25 Mg Tablet) 6.25 mg PO BID [facility]; Protocol Last Admin: 07/18/25 09:17 Dose: 6.25 mg Dextrose (Dextrose 50 % 25 Gm/50 Ml Syringe) 25 gm IVPUSH Q15M PRN; Protocol PRN Reason: per Hypoglycemia Standing Ord. Last Admin: 07/17/25 07:49 Dose: 25 gm Docusate Sodium (Docusate Sodium 100 Mg Capsule) 200 mg PO BID [facility] Last Admin: 07/18/25 09:22 Dose: Not Given Enoxaparin Sodium (Enoxaparin Sodium 40 Mg/0.4 Ml Syringe) 40 mg SUBCUT Q24H [facility] Last Admin: 07/17/25 23:01 Dose: 40 mg Famotidine (Famotidine 20 Mg Tablet) 20 mg PO DAILY [facility] Last Admin: 07/18/25 09:22 Dose: Not Given Ferrous Sulfate (Ferrous Sulfate 324 Mg Tablet.Dr) 324 mg PO DAILY [facility] Last Admin: 07/18/25 09:22 Dose: Not Given Folic Acid (Folic Acid 1 Mg Tablet) 1 mg PO SUTUWETHFRSA [facility] Last Admin: 07/17/25 17:37 Dose: 1 mg Gabapentin (Gabapentin 300 Mg Capsule) 300 mg PO TID [facility] Last Admin: 07/18/25 09:22 Dose: Not Given Glucose (Glucose Gel 15 Gm Gel..Gram.) 15 gm PO Q15M PRN; Protocol PRN Reason: per Hypoglycemia Standing Ord. Guaifenesin (Guaifenesin 200 Mg/10 Ml 10 Ml Liquid) 10 ml PO Q4H PRN PRN Reason: Cough Last Admin: 07/15/25 02:42 Dose: 10 ml Guaifenesin (Guaifenesin La 600 Mg Tab.Er.12h) 600 mg PO Q12H PRN PRN Reason: Cold Symptoms Vancomycin HCl 750 mg/ Sodium (Chloride) 265 mls @ 265 mls/hr IV Q24H [facility] Last Infusion: 07/17/25 23:10 Dose: Infused Dextrose/Lactated Ringer's (D5lr) 1,000 mls @ 100 mls/hr IVCONT .Q10H [facility] Last Admin: 07/18/25 05:23 Dose: Not Given Potassium Chloride (Potassium Chloride/H20) 10 meq in 100 mls @ 100 mls/hr IV Q1H [facility] Stop: 07/18/25 11:44 Last Admin: 07/18/25 10:29 Dose: 100 mls/hr Insulin Human Lispro (Insulin Lispro 100 Unit/Ml 3 Ml Vial) 0 unit SUBCUT QIDACHS [facility]; Protocol Last Admin: 07/18/25 09:12 Dose: 2 unit Lactulose (Lactulose 20 Gm/30 Ml Solution) 20 gm PO DAILY [facility] Last Admin: 07/18/25 09:23 Dose: Not Given Lidocaine HCl (Lidocaine Hcl Viscous 2 % 15 Ml Solution) 15 ml MUCOUS MEM Q3H PRN PRN Reason: Dyspepsia Last Admin: 07/18/25 03:27 Dose: 15 ml Loperamide HCl (Loperamide Hcl 2 Mg Capsule) 2 mg PO Q4H PRN PRN Reason: Diarrhea Last Admin: 07/13/25 22:35 Dose: 2 mg Magnesium Hydroxide (Milk Of Magnesia 30 Ml Oral.Susp) 30 ml PO DAILY PRN PRN Reason: Constipation Magnesium Hydroxide (Milk Of Magnesia 30 Ml Oral.Susp) 30 ml PO BEDTIME PRN PRN Reason: Constipation Melatonin (Melatonin 3 Mg Tablet) 6 mg PO BEDTIME PRN PRN Reason: Insomnia Last Admin: 07/11/25 03:45 Dose: 6 mg Meropenem (Meropenem 1 Gm Vial) 1 gm IVPUSH Q12H [facility] Last Admin: 07/17/25 23:01 Dose: 1 gm Methotrexate (Methotrexate Sodium 2.5 Mg Tablet) 15 mg PO MO [facility] Last Admin: 07/11/25 22:05 Dose: 15 mg Morphine Sulfate (Morphine Sulfate 2 Mg/Ml Cartridge) 1 mg IVPUSH Q3H PRN; Protocol PRN Reason: Pain, Severe (Pain Scale 7-10) Last Admin: 07/17/25 13:20 Dose: 1 mg Nystatin (Nystatin Powder 15 Gm Bottle) 1 appl TOPICAL BID [facility]; Protocol Last Admin: 07/18/25 10:27 Dose: 1 appl Ondansetron HCl (Ondansetron Hcl 4 Mg/2 Ml Vial) 4 mg IVPUSH Q8H PRN PRN Reason: Nausea and Vomiting Last Admin: 07/11/25 21:02 Dose: 4 mg Pharmacy Consult (Consult Rx Vancomycin Dosing) 1 each MISCELLANE DAILY PRN PRN Reason: Consult order Polyethylene Glycol (Polyethylene Glycol 3350 17 Gm Powd.Pack) 17 gm PO DAILY [facility] Last Admin: 07/18/25 09:23 Dose: Not Given Prednisone (Prednisone 2.5 Mg Tablet) 2.5 mg PO DAILY [facility] Last Admin: 07/18/25 09:18 Dose: 2.5 mg Sodium Biphosphate/Sodium Phosphate (Sodium Phosphate,Lewis-Dibasic 133 Ml Enema) 118 ml MO DAILY PRN PRN Reason: Constipation Sodium Chloride (0.9 % Sodium Chloride Flush 3 Ml Syringe) 3 ml IVFLUSH QSHIFT [facility] Last Admin: 07/18/25 09:17 Dose: Not Given Trazodone HCl (Trazodone Hcl 50 Mg Tablet) 50 mg PO BEDTIME [facility] Last Admin: 07/17/25 23:01 Dose: 50 mg Vitamin D (Cholecalciferol (Vitamin D3) 25 Mcg Tablet) 25 mcg PO DAILY [facility] Last Admin: 07/18/25 09:22 Dose: Not Given Home Medications ?Medication ?Instructions ?Recorded ?Confirmed ?Last Taken ?Type tramadol 50 mg tablet 50 mg PO BEDTIME PRN moderat e to 10/09/20 07/11/25 Unknown History severe pain acetaminophen 325 mg tablet 650 mg PO Q4H PRN pain or fever 03/13/21 07/11/25 Unknown History rosuvastatin 10 mg tablet 10 mg PO DAILY 03/13/2107/01 Unknown History Held on 06/11/24. Instructions: Resume on 06/14/24. guaifenesin 100 mg/5 mL oral 200 mg PO Q4H PRN Cough 0 05/19/21 07/11/25 Unknown History liquid (Diabetic Tussin EX) prednisone 2.5 mg tablet 2.5 mg PO DAILY 05/19/2110/25 Unknown History amlodipine 10 mg tablet 10 mg PO DAILY 11/16/2307/01 Unknown History bismuth subsalicylate 262 mg/15 mL 524 mg PO Q8H PRN U PSET 11/16/23 07/11/25 Unknown History oral suspension (Pepto-Bismol) STOMACH/NAUSEA ceramides 1,3,6-II (CeraVe topical 1 appl topical BID Dry Skin 11/16/23 07/11/25 Unknown History cream) docusate sodium 100 mg capsule 200 mg PO BID 11/16/23 07/11/25 Unknown History (Colace) famotidine 20 mg tablet 20 mg PO DAILY 11/16/2307/01 Unknown History folic acid 1 mg tablet 1 mg PO SUTUWETHFRSA 3 07/11/25 Unknown History insulin glargine-yfgn 100 unit/mL 3 unit subcut BEDTIM E 11/16/23 07/11/25 Unknown History subcutaneous solution lactulose 10 gram/15 mL oral 30 ml PO DAILY 11/16/23 0 07/11/25 Unknown History solution (Enulose) melatonin 5 mg tablet 5 mg PO BEDTIME PRN Insomnia 11/16/23 07/11/25 Unknown History polyethylene glycol 3350 17 17 g PO DAILY 11/16/2310/25 Unknown History gram/dose oral powder (Miralax) methotrexate sodium 2.5 mg tablet 15 mg PO MO 02/25/24 07/11/25 Unknown History bisacodyl 5 mg tablet 5 mg PO DAILY PRN Constipati on 03/31/24 07/11/25 Unknown History aspirin 81 mg tablet,delayed 81 mg PO DAILY 04/23/24 0 07/11/25 Unknown History release bisacodyl 10 mg rectal suppository 10 mg MO DAILY PRN Constipation 04/23/24 07/11/25 Unknown History bisacodyl 10 mg rectal suppository 10 mg MO Q3D 07/11/25 Unknown History guaifenesin 600 mg tablet, 600 mg PO Q12H PRN Cold Sym ptoms 04/23/24 07/11/25 Unknown History extended release 12 hr (Mucinex) sodium phosphates 19 gram-7 118 ml MO DAILY PRN Consti pation 04/23/24 07/11/25 Unknown History gram/118 mL enema (Fleet Enema) acetaminophen 325 mg tablet 650 mg PO BEDTIME 07/11/25 07/11/25 Unknown History ascorbic acid (vitamin C) 500 mg 500 mg PO DAILY 07/1107/11/25 Unknown History tablet (Vitamin C) bacitracin 500 unit/gram topical 1 appl topical BID 07/11/25 Unknown History ointment cholecalciferol (vitamin D3) 25 25 mcg PO DAILY 07/11/25 Unknown History mcg (1,000 unit) tablet (Vitamin D3) ferrous sulfate 325 mg (65 mg 325 mg PO DAILY 07/11/25 07/11/25 Unknown History iron) tablet insulin lispro 100 unit/mL See Protocol subcut BID 10/2507/11/25 Unknown History subcutaneous solution (Admelog U-100 Insulin lispro) magnesium hydroxide 400 mg/5 mL 30 ml PO BEDTIME PRN C onstipation 07/11/25 07/11/25 Unknown History oral suspension (Milk of Magnesia) trazodone 50 mg tablet 50 mg PO BEDTIME 07/11/25 Unknown History Exam Height,Weight and Vital Signs: Height 6 ft Weight 83.8 kg Last Vital Signs Temp 96.9 F 07/18/25 07:29 Pulse 95 07/18/25 07:29 Resp 16 07/18/25 07:29 BP 150/70 H 07/18/25 09:18 Pulse Ox 97 07/18/25 07:29 O2 Del Method Room Air 07/18/25 07:29 O2 Flow Rate 2 07/12/25 08:37 Pertinent Lab Results Pertinent Lab Results: Laboratory Tests 07/10/25 07/10/25 07/10/25 16:21 16:37 20:00 WBC 26.2 H RBC 3.56 L D Hgb 11.7 L D Hct 33.8 L D MCV 94.9 MCH 32.9 MCHC 34.6 RDW 16.0 Plt Count 130 L D MPV 9.0 L Immature Gran % (Auto) Cancelled Neut % (Auto) Cancelled Lymph % (Auto) Cancelled Lewis % (Auto) Cancelled Eos % (Auto) Cancelled Baso % (Auto) Cancelled Lymph # (Auto) Cancelled Lewis # (Auto) Cancelled Eos # (Auto) Cancelled Baso # (Auto) Cancelled Abs Immat Gran (auto) Cancelled Absolute Neuts (auto) Cancelled Absolute Nucleated RBC 0.020 H Nucleated RBC % (auto) 0.1 Neutrophils % (Manual) 93 H Band Neutrophils % 3 Lymphocytes % (Manual) 1 L Atypical Lymphs % (Man) Monocytes % (Manual) 1 L Basophils % (Manual) 1 Metamyelocytes % 1 Abs Neuts (Manual) 25.2 H Lymphocytes # (Manual) 0.3 L Atyp Lymphs # (Manual) Monocytes # (Manual) 0.3 Basophils # (Manual) 0.3 H Metamyelocytes # 0.3 Toxic Vacuolation PRESENT Platelet Estimate SLIGHTLY DECREASED Plt Morphology Comment NORMAL RBC Morphology NORMAL Macrocytosis [place] Cells Schistocytes Smear Path Review Hold Purple Top PT 11.2 INR 1.0 Sodium 135 Potassium 4.2 Chloride 102 Carbon Dioxide 20 L Anion Gap 17 BUN 29 H Creatinine 1.68 H Estim Creat Clear Calc 39.7 Estimated GFR 40 POC Glucose Random Glucose 101 Lactic Acid 2.6 H* Lactic Acid F/U @ 2Hr Calcium 8.3 L Magnesium 1.8 Total Bilirubin 1.0 AST 33 ALT 17 Alkaline Phosphatase 66 Troponin I High Sens 13.5 Total Protein 6.1 L Albumin 3.1 L Vancomycin Trough Random Vancomycin C. difficile Tox B Gene Influenza Type A (PCR) NEGATIVE Influenza Type B (PCR) NEGATIVE RSV RNA Qual (PCR) NEGATIVE SARS-CoV-2 RNA (RT-PCR) NEGATIVE Blood Type Antibody Screen 07/10/25 07/11/25 07/11/25 22:10 01:56 05:23 WBC 37.6 H* RBC 3.26 L Hgb 10.9 L Hct 31.6 L MCV 96.9 MCH 33.4 H MCHC 34.5 RDW 16.6 H Plt Count 111 L MPV 9.2 L Immature Gran % (Auto) Cancelled Neut % (Auto) Cancelled Lymph % (Auto) Cancelled Lewis % (Auto) Cancelled Eos % (Auto) Cancelled Baso % (Auto) Cancelled Lymph # (Auto) Cancelled Lewis # (Auto) Cancelled Eos # (Auto) Cancelled Baso # (Auto) Cancelled Abs Immat Gran (auto) Cancelled Absolute Neuts (auto) Cancelled Absolute Nucleated RBC 0.000 Nucleated RBC % (auto) 0.0 Neutrophils % (Manual) 87 H Band Neutrophils % 7 H Lymphocytes % (Manual) 1 L Atypical Lymphs % (Man) Monocytes % (Manual) 5 Basophils % (Manual) Metamyelocytes % Abs Neuts (Manual) 35.3 H Lymphocytes # (Manual) 0.4 L Atyp Lymphs # (Manual) Monocytes # (Manual) 1.9 H Basophils # (Manual) Metamyelocytes # Toxic Vacuolation PRESENT Platelet Estimate SLIGHTLY DECREASED Plt Morphology Comment NORMAL RBC Morphology NORMAL Macrocytosis [place] Cells Schistocytes Smear Path Review SEE NOTE Hold Purple Top PT INR Sodium 138 Potassium 4.2 Chloride 106 Carbon Dioxide 19 L Anion Gap 17 BUN 29 H Creatinine 1.60 H Estim Creat Clear Calc 41.7 Estimated GFR 42 POC Glucose 127 H Random Glucose 151 H Lactic Acid Lactic Acid F/U @ 2Hr 2.0 Calcium 8.1 L Magnesium Total Bilirubin AST ALT Alkaline Phosphatase Troponin I High Sens Total Protein Albumin Vancomycin Trough Random Vancomycin C. difficile Tox B Gene Influenza Type A (PCR) Influenza Type B (PCR) RSV RNA Qual (PCR) SARS-CoV-2 RNA (RT-PCR) Blood Type Antibody Screen 07/11/25 07/11/25 07/11/25 06:33 07:21 12:35 WBC RBC Hgb Hct MCV MCH MCHC RDW Plt Count MPV Immature Gran % (Auto) Neut % (Auto) Lymph % (Auto) Lewis % (Auto) Eos % (Auto) Baso % (Auto) Lymph # (Auto) Lewis # (Auto) Eos # (Auto) Baso # (Auto) Abs Immat Gran (auto) Absolute Neuts (auto) Absolute Nucleated RBC Nucleated RBC % (auto) Neutrophils % (Manual) Band Neutrophils % Lymphocytes % (Manual) Atypical Lymphs % (Man) Monocytes % (Manual) Basophils % (Manual) Metamyelocytes % Abs Neuts (Manual) Lymphocytes # (Manual) Atyp Lymphs # (Manual) Monocytes # (Manual) Basophils # (Manual) Metamyelocytes # Toxic Vacuolation Platelet Estimate Plt Morphology Comment RBC Morphology Macrocytosis [place] Cells Schistocytes Smear Path Review Hold Purple Top PT INR Sodium Potassium Chloride Carbon Dioxide Anion Gap BUN Creatinine Estim Creat Clear Calc Estimated GFR POC Glucose 155 H 147 H Random Glucose Lactic Acid Lactic Acid F/U @ 2Hr Calcium Magnesium Total Bilirubin AST ALT Alkaline Phosphatase Troponin I High Sens 15.1 Total Protein Albumin Vancomycin Trough Random Vancomycin C. difficile Tox B Gene Influenza Type A (PCR) Influenza Type B (PCR) RSV RNA Qual (PCR) SARS-CoV-2 RNA (RT-PCR) Blood Type Antibody Screen 07/11/25 07/11/25 07/11/25 13:58 16:13 20:08 WBC RBC Hgb Hct MCV MCH MCHC RDW Plt Count MPV Immature Gran % (Auto) Neut % (Auto) Lymph % (Auto) Lewis % (Auto) Eos % (Auto) Baso % (Auto) Lymph # (Auto) Lewis # (Auto) Eos # (Auto) Baso # (Auto) Abs Immat Gran (auto) Absolute Neuts (auto) Absolute Nucleated RBC Nucleated RBC % (auto) Neutrophils % (Manual) Band Neutrophils % Lymphocytes % (Manual) Atypical Lymphs % (Man) Monocytes % (Manual) Basophils % (Manual) Metamyelocytes % Abs Neuts (Manual) Lymphocytes # (Manual) Atyp Lymphs # (Manual) Monocytes # (Manual) Basophils # (Manual) Metamyelocytes # Toxic Vacuolation Platelet Estimate Plt Morphology Comment RBC Morphology Macrocytosis [place] Cells Schistocytes Smear Path Review Hold Purple Top PT INR Sodium Potassium Chloride Carbon Dioxide Anion Gap BUN Creatinine Estim Creat Clear Calc Estimated GFR POC Glucose 145 H 140 H 134 H Random Glucose Lactic Acid Lactic Acid F/U @ 2Hr Calcium Magnesium Total Bilirubin AST ALT Alkaline Phosphatase Troponin I High Sens Total Protein Albumin Vancomycin Trough Random Vancomycin C. difficile Tox B Gene Influenza Type A (PCR) Influenza Type B (PCR) RSV RNA Qual (PCR) SARS-CoV-2 RNA (RT-PCR) Blood Type Antibody Screen 07/12/25 07/12/25 07/12/25 07:28 09:13 09:13 WBC Cancelled 23.8 H RBC Cancelled Hgb Hct MCV MCH MCHC RDW Plt Count MPV Immature Gran % (Auto) Neut % (Auto) Lymph % (Auto) Lewis % (Auto) Eos % (Auto) Baso % (Auto) Lymph # (Auto) Lewis # (Auto) Eos # (Auto) Baso # (Auto) Abs Immat Gran (auto) Absolute Neuts (auto) Absolute Nucleated RBC Nucleated RBC % (auto) Neutrophils % (Manual) Band Neutrophils % Lymphocytes % (Manual) Atypical Lymphs % (Man) Monocytes % (Manual) Basophils % (Manual) Metamyelocytes % Abs Neuts (Manual) Lymphocytes # (Manual) Atyp Lymphs # (Manual) Monocytes # (Manual) Basophils # (Manual) Metamyelocytes # Toxic Vacuolation Platelet Estimate Plt Morphology Comment RBC Morphology Macrocytosis [place] Cells Schistocytes Smear Path Review Hold Purple Top PT INR Sodium Potassium Chloride Carbon Dioxide Anion Gap BUN Creatinine Estim Creat Clear Calc Estimated GFR POC Glucose 130 H Random Glucose Lactic Acid Lactic Acid F/U @ 2Hr Calcium Magnesium Total Bilirubin AST ALT Alkaline Phosphatase Troponin I High Sens Total Protein Albumin Vancomycin Trough Random Vancomycin C. difficile Tox B Gene Influenza Type A (PCR) Influenza Type B (PCR) RSV RNA Qual (PCR) SARS-CoV-2 RNA (RT-PCR) Blood Type Antibody Screen 07/12/25 07/12/25 07/12/25 09:13 09:13 09:13 WBC RBC 3.11 L Hgb Cancelled 10.2 L Hct Cancelled 30.0 L MCV Cancelled MCH MCHC RDW Plt Count MPV Immature Gran % (Auto) Neut % (Auto) Lymph % (Auto) Lewis % (Auto) Eos % (Auto) Baso % (Auto) Lymph # (Auto) Lewis # (Auto) Eos # (Auto) Baso # (Auto) Abs Immat Gran (auto) Absolute Neuts (auto) Absolute Nucleated RBC Nucleated RBC % (auto) Neutrophils % (Manual) Band Neutrophils % Lymphocytes % (Manual) Atypical Lymphs % (Man) Monocytes % (Manual) Basophils % (Manual) Metamyelocytes % Abs Neuts (Manual) Lymphocytes # (Manual) Atyp Lymphs # (Manual) Monocytes # (Manual) Basophils # (Manual) Metamyelocytes # Toxic Vacuolation Platelet Estimate Plt Morphology Comment RBC Morphology Macrocytosis [place] Cells Schistocytes Smear Path Review Hold Purple Top PT INR Sodium Potassium Chloride Carbon Dioxide Anion Gap BUN Creatinine Estim Creat Clear Calc Estimated GFR POC Glucose Random Glucose Lactic Acid Lactic Acid F/U @ 2Hr Calcium Magnesium Total Bilirubin AST ALT Alkaline Phosphatase Troponin I High Sens Total Protein Albumin Vancomycin Trough Random Vancomycin C. difficile Tox B Gene Influenza Type A (PCR) Influenza Type B (PCR) RSV RNA Qual (PCR) SARS-CoV-2 RNA (RT-PCR) Blood Type Antibody Screen 07/12/25 07/12/25 07/12/25 09:13 09:13 09:13 WBC RBC Hgb Hct MCV 96.5 MCH Cancelled 32.8 MCHC Cancelled 34.0 RDW Cancelled Plt Count MPV Immature Gran % (Auto) Neut % (Auto) Lymph % (Auto) Lewis % (Auto) Eos % (Auto) Baso % (Auto) Lymph # (Auto) Lewis # (Auto) Eos # (Auto) Baso # (Auto) Abs Immat Gran (auto) Absolute Neuts (auto) Absolute Nucleated RBC Nucleated RBC % (auto) Neutrophils % (Manual) Band Neutrophils % Lymphocytes % (Manual) Atypical Lymphs % (Man) Monocytes % (Manual) Basophils % (Manual) Metamyelocytes % Abs Neuts (Manual) Lymphocytes # (Manual) Atyp Lymphs # (Manual) Monocytes # (Manual) Basophils # (Manual) Metamyelocytes # Toxic Vacuolation Platelet Estimate Plt Morphology Comment RBC Morphology Macrocytosis [place] Cells Schistocytes Smear Path Review Hold Purple Top PT INR Sodium Potassium Chloride Carbon Dioxide Anion Gap BUN Creatinine Estim Creat Clear Calc Estimated GFR POC Glucose Random Glucose Lactic Acid Lactic Acid F/U @ 2Hr Calcium Magnesium Total Bilirubin AST ALT Alkaline Phosphatase Troponin I High Sens Total Protein Albumin Vancomycin Trough Random Vancomycin C. difficile Tox B Gene Influenza Type A (PCR) Influenza Type B (PCR) RSV RNA Qual (PCR) SARS-CoV-2 RNA (RT-PCR) Blood Type Antibody Screen 07/12/25 07/12/25 07/12/25 09:13 09:13 09:13 WBC RBC Hgb Hct MCV MCH MCHC RDW 16.6 H Plt Count Cancelled 106 L MPV Cancelled 10.0 Immature Gran % (Auto) Cancelled Neut % (Auto) Cancelled Lymph % (Auto) Cancelled Lewis % (Auto) Cancelled Eos % (Auto) Cancelled Baso % (Auto) Cancelled Lymph # (Auto) Cancelled Lewis # (Auto) Cancelled Eos # (Auto) Cancelled Baso # (Auto) Cancelled Abs Immat Gran (auto) Cancelled Absolute Neuts (auto) Cancelled Absolute Nucleated RBC Cancelled Nucleated RBC % (auto) Neutrophils % (Manual) Band Neutrophils % Lymphocytes % (Manual) Atypical Lymphs % (Man) Monocytes % (Manual) Basophils % (Manual) Metamyelocytes % Abs Neuts (Manual) Lymphocytes # (Manual) Atyp Lymphs # (Manual) Monocytes # (Manual) Basophils # (Manual) Metamyelocytes # Toxic Vacuolation Platelet Estimate Plt Morphology Comment RBC Morphology Macrocytosis [place] Cells Schistocytes Smear Path Review Hold Purple Top PT INR Sodium Potassium Chloride Carbon Dioxide Anion Gap BUN Creatinine Estim Creat Clear Calc Estimated GFR POC Glucose Random Glucose Lactic Acid Lactic Acid F/U @ 2Hr Calcium Magnesium Total Bilirubin AST ALT Alkaline Phosphatase Troponin I High Sens Total Protein Albumin Vancomycin Trough Random Vancomycin C. difficile Tox B Gene Influenza Type A (PCR) Influenza Type B (PCR) RSV RNA Qual (PCR) SARS-CoV-2 RNA (RT-PCR) Blood Type Antibody Screen 07/12/25 07/12/25 07/12/25 09:13 09:13 09:13 WBC RBC Hgb Hct MCV MCH MCHC RDW Plt Count MPV Immature Gran % (Auto) Neut % (Auto) Lymph % (Auto) Lewis % (Auto) Eos % (Auto) Baso % (Auto) Lymph # (Auto) Lewis # (Auto) Eos # (Auto) Baso # (Auto) Abs Immat Gran (auto) Absolute Neuts (auto) Absolute Nucleated RBC 0.000 Nucleated RBC % (auto) Cancelled 0.0 Neutrophils % (Manual) 93 H Band Neutrophils % 2 L Lymphocytes % (Manual) 3 L Atypical Lymphs % (Man) 1 Monocytes % (Manual) 1 L Basophils % (Manual) Metamyelocytes % Abs Neuts (Manual) 22.6 H Lymphocytes # (Manual) 0.7 L Atyp Lymphs # (Manual) 0.2 Monocytes # (Manual) 0.2 Basophils # (Manual) Metamyelocytes # Toxic Vacuolation Platelet Estimate DECREASED Plt Morphology Comment NORMAL RBC Morphology NOTED Macrocytosis 1+ (5-14) Brent Cells 1+ (0-2) Schistocytes 1+ (0-2) Smear Path Review Hold Purple Top SEE NOTE PT INR Sodium 139 139 Potassium 3.6 Chloride Carbon Dioxide Anion Gap BUN Creatinine Estim Creat Clear Calc Estimated GFR POC Glucose Random Glucose Lactic Acid Lactic Acid F/U @ 2Hr Calcium Magnesium Total Bilirubin AST ALT Alkaline Phosphatase Troponin I High Sens Total Protein Albumin Vancomycin Trough Random Vancomycin C. difficile Tox B Gene Influenza Type A (PCR) Influenza Type B (PCR) RSV RNA Qual (PCR) SARS-CoV-2 RNA (RT-PCR) Blood Type Antibody Screen 07/12/25 07/12/25 07/12/25 09:13 09:13 09:13 WBC RBC Hgb Hct MCV MCH MCHC RDW Plt Count MPV Immature Gran % (Auto) Neut % (Auto) Lymph % (Auto) Lewis % (Auto) Eos % (Auto) Baso % (Auto) Lymph # (Auto) Lewis # (Auto) Eos # (Auto) Baso # (Auto) Abs Immat Gran (auto) Absolute Neuts (auto) Absolute Nucleated RBC Nucleated RBC % (auto) Neutrophils % (Manual) Band Neutrophils % Lymphocytes % (Manual) Atypical Lymphs % (Man) Monocytes % (Manual) Basophils % (Manual) Metamyelocytes % Abs Neuts (Manual) Lymphocytes # (Manual) Atyp Lymphs # (Manual) Monocytes # (Manual) Basophils # (Manual) Metamyelocytes # Toxic Vacuolation Platelet Estimate Plt Morphology Comment RBC Morphology Macrocytosis [place] Cells Schistocytes Smear Path Review Hold Purple Top PT INR Sodium Potassium 3.6 Chloride 107 106 Carbon Dioxide 20 L 20 L Anion Gap 16 BUN Creatinine Estim Creat Clear Calc Estimated GFR POC Glucose Random Glucose Lactic Acid Lactic Acid F/U @ 2Hr Calcium Magnesium Total Bilirubin AST ALT Alkaline Phosphatase Troponin I High Sens Total Protein Albumin Vancomycin Trough Random Vancomycin C. difficile Tox B Gene Influenza Type A (PCR) Influenza Type B (PCR) RSV RNA Qual (PCR) SARS-CoV-2 RNA (RT-PCR) Blood Type Antibody Screen 07/12/25 07/12/25 07/12/25 09:13 09:13 09:13 WBC RBC Hgb Hct MCV MCH MCHC RDW Plt Count MPV Immature Gran % (Auto) Neut % (Auto) Lymph % (Auto) Lewis % (Auto) Eos % (Auto) Baso % (Auto) Lymph # (Auto) Lewis # (Auto) Eos # (Auto) Baso # (Auto) Abs Immat Gran (auto) Absolute Neuts (auto) Absolute Nucleated RBC Nucleated RBC % (auto) Neutrophils % (Manual) Band Neutrophils % Lymphocytes % (Manual) Atypical Lymphs % (Man) Monocytes % (Manual) Basophils % (Manual) Metamyelocytes % Abs Neuts (Manual) Lymphocytes # (Manual) Atyp Lymphs # (Manual) Monocytes # (Manual) Basophils # (Manual) Metamyelocytes # Toxic Vacuolation Platelet Estimate Plt Morphology Comment RBC Morphology Macrocytosis [place] Cells Schistocytes Smear Path Review Hold Purple Top PT INR Sodium Potassium Chloride Carbon Dioxide Anion Gap 17 BUN 31 H 32 H Creatinine 1.21 1.22 Estim Creat Clear Calc Estimated GFR POC Glucose Random Glucose Lactic Acid Lactic Acid F/U @ 2Hr Calcium Magnesium Total Bilirubin AST ALT Alkaline Phosphatase Troponin I High Sens Total Protein Albumin Vancomycin Trough Random Vancomycin C. difficile Tox B Gene Influenza Type A (PCR) Influenza Type B (PCR) RSV RNA Qual (PCR) SARS-CoV-2 RNA (RT-PCR) Blood Type Antibody Screen 07/12/25 07/12/25 07/12/25 09:13 09:13 09:13 WBC RBC Hgb Hct MCV MCH MCHC RDW Plt Count MPV Immature Gran % (Auto) Neut % (Auto) Lymph % (Auto) Lewis % (Auto) Eos % (Auto) Baso % (Auto) Lymph # (Auto) Lewis # (Auto) Eos # (Auto) Baso # (Auto) Abs Immat Gran (auto) Absolute Neuts (auto) Absolute Nucleated RBC Nucleated RBC % (auto) Neutrophils % (Manual) Band Neutrophils % Lymphocytes % (Manual) Atypical Lymphs % (Man) Monocytes % (Manual) Basophils % (Manual) Metamyelocytes % Abs Neuts (Manual) Lymphocytes # (Manual) Atyp Lymphs # (Manual) Monocytes # (Manual) Basophils # (Manual) Metamyelocytes # Toxic Vacuolation Platelet Estimate Plt Morphology Comment RBC Morphology Macrocytosis Brent Cells Schistocytes Smear Path Review Hold Purple Top PT INR Sodium Potassium Chloride Carbon Dioxide Anion Gap BUN Creatinine 1.20 Estim Creat Clear Calc 55.2 54.7 55.6 Estimated GFR 58 POC Glucose Random Glucose Lactic Acid Lactic Acid F/U @ 2Hr Calcium Magnesium Total Bilirubin AST ALT Alkaline Phosphatase Troponin I High Sens Total Protein Albumin Vancomycin Trough Random Vancomycin C. difficile Tox B Gene Influenza Type A (PCR) Influenza Type B (PCR) RSV RNA Qual (PCR) SARS-CoV-2 RNA (RT-PCR) Blood Type Antibody Screen 07/12/25 07/12/25 07/12/25 09:13 09:13 09:13 WBC RBC Hgb Hct MCV MCH MCHC RDW Plt Count MPV Immature Gran % (Auto) Neut % (Auto) Lymph % (Auto) Lewis % (Auto) Eos % (Auto) Baso % (Auto) Lymph # (Auto) Lewis # (Auto) Eos # (Auto) Baso # (Auto) Abs Immat Gran (auto) Absolute Neuts (auto) Absolute Nucleated RBC Nucleated RBC % (auto) Neutrophils % (Manual) Band Neutrophils % Lymphocytes % (Manual) Atypical Lymphs % (Man) Monocytes % (Manual) Basophils % (Manual) Metamyelocytes % Abs Neuts (Manual) Lymphocytes # (Manual) Atyp Lymphs # (Manual) Monocytes # (Manual) Basophils # (Manual) Metamyelocytes # Toxic Vacuolation Platelet Estimate Plt Morphology Comment RBC Morphology Macrocytosis [place] Cells Schistocytes Smear Path Review Hold Purple Top PT INR Sodium Potassium Chloride Carbon Dioxide Anion Gap BUN Creatinine Estim Creat Clear Calc Estimated GFR 57 59 POC Glucose Random Glucose 146 H 146 H Lactic Acid Lactic Acid F/U @ 2Hr Calcium 8.2 L Magnesium Total Bilirubin AST ALT Alkaline Phosphatase Troponin I High Sens Total Protein Albumin Vancomycin Trough Random Vancomycin C. difficile Tox B Gene Influenza Type A (PCR) Influenza Type B (PCR) RSV RNA Qual (PCR) SARS-CoV-2 RNA (RT-PCR) Blood Type Antibody Screen 07/12/25 07/12/25 07/12/25 09:13 10:52 15:40 WBC RBC Hgb Hct MCV MCH MCHC RDW Plt Count MPV Immature Gran % (Auto) Neut % (Auto) Lymph % (Auto) Lewis % (Auto) Eos % (Auto) Baso % (Auto) Lymph # (Auto) Lewis # (Auto) Eos # (Auto) Baso # (Auto) Abs Immat Gran (auto) Absolute Neuts (auto) Absolute Nucleated RBC Nucleated RBC % (auto) Neutrophils % (Manual) Band Neutrophils % Lymphocytes % (Manual) Atypical Lymphs % (Man) Monocytes % (Manual) Basophils % (Manual) Metamyelocytes % Abs Neuts (Manual) Lymphocytes # (Manual) Atyp Lymphs # (Manual) Monocytes # (Manual) Basophils # (Manual) Metamyelocytes # Toxic Vacuolation Platelet Estimate Plt Morphology Comment RBC Morphology Macrocytosis [place] Cells Schistocytes Smear Path Review Hold Purple Top PT INR Sodium Potassium Chloride Carbon Dioxide Anion Gap BUN Creatinine Estim Creat Clear Calc Estimated GFR POC Glucose 130 H 133 H Random Glucose Lactic Acid Lactic Acid F/U @ 2Hr Calcium 8.2 L Magnesium Total Bilirubin AST ALT Alkaline Phosphatase Troponin I High Sens Total Protein Albumin Vancomycin Trough Random Vancomycin C. difficile Tox B Gene Influenza Type A (PCR) Influenza Type B (PCR) RSV RNA Qual (PCR) SARS-CoV-2 RNA (RT-PCR) Blood Type B Positive Antibody Screen NEGATIVE 07/12/25 07/13/25 07/13/25 19:46 07:55 08:48 WBC RBC Hgb Hct MCV MCH MCHC RDW Plt Count MPV Immature Gran % (Auto) Neut % (Auto) Lymph % (Auto) Lewis % (Auto) Eos % (Auto) Baso % (Auto) Lymph # (Auto) Lewis # (Auto) Eos # (Auto) Baso # (Auto) Abs Immat Gran (auto) Absolute Neuts (auto) Absolute Nucleated RBC Nucleated RBC % (auto) Neutrophils % (Manual) Band Neutrophils % Lymphocytes % (Manual) Atypical Lymphs % (Man) Monocytes % (Manual) Basophils % (Manual) Metamyelocytes % Abs Neuts (Manual) Lymphocytes # (Manual) Atyp Lymphs # (Manual) Monocytes # (Manual) Basophils # (Manual) Metamyelocytes # Toxic Vacuolation Platelet Estimate Plt Morphology Comment RBC Morphology Macrocytosis [place] Cells Schistocytes Smear Path Review Hold Purple Top PT INR Sodium Potassium Chloride Carbon Dioxide Anion Gap BUN Creatinine 0.97 Estim Creat Clear Calc 68.8 Estimated GFR > 60 POC Glucose 137 H 113 Random Glucose Lactic Acid Lactic Acid F/U @ 2Hr Calcium Magnesium Total Bilirubin AST ALT Alkaline Phosphatase Troponin I High Sens Total Protein Albumin Vancomycin Trough Random Vancomycin C. difficile Tox B Gene Influenza Type A (PCR) Influenza Type B (PCR) RSV RNA Qual (PCR) SARS-CoV-2 RNA (RT-PCR) Blood Type Antibody Screen 07/13/25 07/13/25 07/13/25 11:07 15:05 16:14 WBC RBC Hgb Hct MCV MCH MCHC RDW Plt Count MPV Immature Gran % (Auto) Neut % (Auto) Lymph % (Auto) Lewis % (Auto) Eos % (Auto) Baso % (Auto) Lymph # (Auto) Lewis # (Auto) Eos # (Auto) Baso # (Auto) Abs Immat Gran (auto) Absolute Neuts (auto) Absolute Nucleated RBC Nucleated RBC % (auto) Neutrophils % (Manual) Band Neutrophils % Lymphocytes % (Manual) Atypical Lymphs % (Man) Monocytes % (Manual) Basophils % (Manual) Metamyelocytes % Abs Neuts (Manual) Lymphocytes # (Manual) Atyp Lymphs # (Manual) Monocytes # (Manual) Basophils # (Manual) Metamyelocytes # Toxic Vacuolation Platelet Estimate Plt Morphology Comment RBC Morphology Macrocytosis [place] Cells Schistocytes Smear Path Review Hold Purple Top PT INR Sodium Potassium Chloride Carbon Dioxide Anion Gap BUN Creatinine Estim Creat Clear Calc Estimated GFR POC Glucose 116 H 154 H Random Glucose Lactic Acid Lactic Acid F/U @ 2Hr Calcium Magnesium Total Bilirubin AST ALT Alkaline Phosphatase Troponin I High Sens Total Protein Albumin Vancomycin Trough Random Vancomycin C. difficile Tox B Gene NEGATIVE Influenza Type A (PCR) Influenza Type B (PCR) RSV RNA Qual (PCR) SARS-CoV-2 RNA (RT-PCR) Blood Type Antibody Screen 07/13/25 07/13/25 07/14/25 19:57 20:27 07:06 WBC RBC Hgb Hct MCV MCH MCHC RDW Plt Count MPV Immature Gran % (Auto) Neut % (Auto) Lymph % (Auto) Lewis % (Auto) Eos % (Auto) Baso % (Auto) Lymph # (Auto) Lewis # (Auto) Eos # (Auto) Baso # (Auto) Abs Immat Gran (auto) Absolute Neuts (auto) Absolute Nucleated RBC Nucleated RBC % (auto) Neutrophils % (Manual) Band Neutrophils % Lymphocytes % (Manual) Atypical Lymphs % (Man) Monocytes % (Manual) Basophils % (Manual) Metamyelocytes % Abs Neuts (Manual) Lymphocytes # (Manual) Atyp Lymphs # (Manual) Monocytes # (Manual) Basophils # (Manual) Metamyelocytes # Toxic Vacuolation Platelet Estimate Plt Morphology Comment RBC Morphology Macrocytosis [place] Cells Schistocytes Smear Path Review Hold Purple Top PT INR Sodium Potassium Chloride Carbon Dioxide Anion Gap BUN Creatinine Estim Creat Clear Calc Estimated GFR POC Glucose 117 H 74 Random Glucose Lactic Acid Lactic Acid F/U @ 2Hr Calcium Magnesium Total Bilirubin AST ALT Alkaline Phosphatase Troponin I High Sens Total Protein Albumin Vancomycin Trough Random Vancomycin 17.8 C. difficile Tox B Gene Influenza Type A (PCR) Influenza Type B (PCR) RSV RNA Qual (PCR) SARS-CoV-2 RNA (RT-PCR) Blood Type Antibody Screen 07/14/25 07/14/25 07/14/25 08:19 11:18 16:03 WBC 13.6 H RBC 2.94 L Hgb 9.6 L Hct 27.9 L MCV 94.9 MCH 32.7 MCHC 34.4 RDW 16.2 H Plt Count 127 L MPV 10.3 Immature Gran % (Auto) Neut % (Auto) Lymph % (Auto) Lewis % (Auto) Eos % (Auto) Baso % (Auto) Lymph # (Auto) Lewis # (Auto) Eos # (Auto) Baso # (Auto) Abs Immat Gran (auto) Absolute Neuts (auto) Absolute Nucleated RBC 0.000 Nucleated RBC % (auto) 0.0 Neutrophils % (Manual) Band Neutrophils % Lymphocytes % (Manual) Atypical Lymphs % (Man) Monocytes % (Manual) Basophils % (Manual) Metamyelocytes % Abs Neuts (Manual) Lymphocytes # (Manual) Atyp Lymphs # (Manual) Monocytes # (Manual) Basophils # (Manual) Metamyelocytes # Toxic Vacuolation Platelet Estimate Plt Morphology Comment RBC Morphology Macrocytosis [place] Cells Schistocytes Smear Path Review Hold Purple Top PT INR Sodium 141 Potassium 3.2 L Chloride 108 Carbon Dioxide 21 L Anion Gap 15 BUN 37 H Creatinine 1.13 Estim Creat Clear Calc 59.1 Estimated GFR > 60 POC Glucose 82 100 Random Glucose 80 Lactic Acid Lactic Acid F/U @ 2Hr Calcium 8.4 Magnesium Total Bilirubin AST ALT Alkaline Phosphatase Troponin I High Sens Total Protein Albumin Vancomycin Trough Random Vancomycin C. difficile Tox B Gene Influenza Type A (PCR) Influenza Type B (PCR) RSV RNA Qual (PCR) SARS-CoV-2 RNA (RT-PCR) Blood Type Antibody Screen 07/14/25 07/15/25 07/15/25 20:15 06:22 07:16 WBC 8.1 RBC 2.97 L Hgb 9.7 L Hct 27.7 L MCV 93.3 MCH 32.7 MCHC 35.0 RDW 16.1 H Plt Count 106 L MPV 10.2 Immature Gran % (Auto) Neut % (Auto) Lymph % (Auto) Lewis % (Auto) Eos % (Auto) Baso % (Auto) Lymph # (Auto) Lewis # (Auto) Eos # (Auto) Baso # (Auto) Abs Immat Gran (auto) Absolute Neuts (auto) Absolute Nucleated RBC 0.000 Nucleated RBC % (auto) 0.0 Neutrophils % (Manual) Band Neutrophils % Lymphocytes % (Manual) Atypical Lymphs % (Man) Monocytes % (Manual) Basophils % (Manual) Metamyelocytes % Abs Neuts (Manual) Lymphocytes # (Manual) Atyp Lymphs # (Manual) Monocytes # (Manual) Basophils # (Manual) Metamyelocytes # Toxic Vacuolation Platelet Estimate Plt Morphology Comment RBC Morphology Macrocytosis [place] Cells Schistocytes Smear Path Review Hold Purple Top PT INR Sodium 139 Potassium 3.1 L Chloride 107 Carbon Dioxide 19 L Anion Gap 16 BUN 43 H Creatinine 1.08 Estim Creat Clear Calc 61.8 Estimated GFR > 60 POC Glucose 111 91 Random Glucose 88 Lactic Acid Lactic Acid F/U @ 2Hr Calcium 8.3 L Magnesium 2.1 Total Bilirubin AST ALT Alkaline Phosphatase Troponin I High Sens Total Protein Albumin Vancomycin Trough Random Vancomycin C. difficile Tox B Gene Influenza Type A (PCR) Influenza Type B (PCR) RSV RNA Qual (PCR) SARS-CoV-2 RNA (RT-PCR) Blood Type Antibody Screen 07/15/25 07/15/25 07/15/25 11:06 16:12 19:51 WBC RBC Hgb Hct MCV MCH MCHC RDW Plt Count MPV Immature Gran % (Auto) Neut % (Auto) Lymph % (Auto) Lewis % (Auto) Eos % (Auto) Baso % (Auto) Lymph # (Auto) Lewis # (Auto) Eos # (Auto) Baso # (Auto) Abs Immat Gran (auto) Absolute Neuts (auto) Absolute Nucleated RBC Nucleated RBC % (auto) Neutrophils % (Manual) Band Neutrophils % Lymphocytes % (Manual) Atypical Lymphs % (Man) Monocytes % (Manual) Basophils % (Manual) Metamyelocytes % Abs Neuts (Manual) Lymphocytes # (Manual) Atyp Lymphs # (Manual) Monocytes # (Manual) Basophils # (Manual) Metamyelocytes # Toxic Vacuolation Platelet Estimate Plt Morphology Comment RBC Morphology Macrocytosis [place] Cells Schistocytes Smear Path Review Hold Purple Top PT INR Sodium Potassium Chloride Carbon Dioxide Anion Gap BUN Creatinine Estim Creat Clear Calc Estimated GFR POC Glucose 98 145 H Random Glucose Lactic Acid Lactic Acid F/U @ 2Hr Calcium Magnesium Total Bilirubin AST ALT Alkaline Phosphatase Troponin I High Sens Total Protein Albumin Vancomycin Trough Random Vancomycin 23.8 H C. difficile Tox B Gene Influenza Type A (PCR) Influenza Type B (PCR) RSV RNA Qual (PCR) SARS-CoV-2 RNA (RT-PCR) Blood Type Antibody Screen 07/15/25 07/16/25 07/16/25 20:24 07:33 09:43 WBC 2.8 L RBC 2.88 L Hgb 9.2 L Hct 27.1 L MCV 94.1 MCH 31.9 MCHC 33.9 RDW 16.0 Plt Count 109 L MPV 10.2 Immature Gran % (Auto) Neut % (Auto) Lymph % (Auto) Lewis % (Auto) Eos % (Auto) Baso % (Auto) Lymph # (Auto) Lewis # (Auto) Eos # (Auto) Baso # (Auto) Abs Immat Gran (auto) Absolute Neuts (auto) Absolute Nucleated RBC 0.000 Nucleated RBC % (auto) 0.0 Neutrophils % (Manual) Band Neutrophils % Lymphocytes % (Manual) Atypical Lymphs % (Man) Monocytes % (Manual) Basophils % (Manual) Metamyelocytes % Abs Neuts (Manual) Lymphocytes # (Manual) Atyp Lymphs # (Manual) Monocytes # (Manual) Basophils # (Manual) Metamyelocytes # Toxic Vacuolation Platelet Estimate Plt Morphology Comment RBC Morphology Macrocytosis [place] Cells Schistocytes Smear Path Review Hold Purple Top PT INR Sodium 140 Potassium 3.2 L Chloride 109 H Carbon Dioxide 17 L Anion Gap 17 BUN 44 H Creatinine 1.07 Estim Creat Clear Calc 62.4 Estimated GFR > 60 POC Glucose 134 H 73 Random Glucose 77 Lactic Acid Lactic Acid F/U @ 2Hr Calcium 8.2 L Magnesium Total Bilirubin AST ALT Alkaline Phosphatase Troponin I High Sens Total Protein Albumin Vancomycin Trough Random Vancomycin 22.7 H C. difficile Tox B Gene Influenza Type A (PCR) Influenza Type B (PCR) RSV RNA Qual (PCR) SARS-CoV-2 RNA (RT-PCR) Blood Type Antibody Screen 07/16/25 07/16/25 07/16/25 11:36 16:17 19:59 WBC RBC Hgb Hct MCV MCH MCHC RDW Plt Count MPV Immature Gran % (Auto) Neut % (Auto) Lymph % (Auto) Lewis % (Auto) Eos % (Auto) Baso % (Auto) Lymph # (Auto) Lewis # (Auto) Eos # (Auto) Baso # (Auto) Abs Immat Gran (auto) Absolute Neuts (auto) Absolute Nucleated RBC Nucleated RBC % (auto) Neutrophils % (Manual) Band Neutrophils % Lymphocytes % (Manual) Atypical Lymphs % (Man) Monocytes % (Manual) Basophils % (Manual) Metamyelocytes % Abs Neuts (Manual) Lymphocytes # (Manual) Atyp Lymphs # (Manual) Monocytes # (Manual) Basophils # (Manual) Metamyelocytes # Toxic Vacuolation Platelet Estimate Plt Morphology Comment RBC Morphology Macrocytosis [place] Cells Schistocytes Smear Path Review Hold Purple Top PT INR Sodium Potassium Chloride Carbon Dioxide Anion Gap BUN Creatinine Estim Creat Clear Calc Estimated GFR POC Glucose 72 72 70 Random Glucose Lactic Acid Lactic Acid F/U @ 2Hr Calcium Magnesium Total Bilirubin AST ALT Alkaline Phosphatase Troponin I High Sens Total Protein Albumin Vancomycin Trough Random Vancomycin C. difficile Tox B Gene Influenza Type A (PCR) Influenza Type B (PCR) RSV RNA Qual (PCR) SARS-CoV-2 RNA (RT-PCR) Blood Type Antibody Screen 07/16/25 07/17/25 07/17/25 22:05 07:37 08:22 WBC RBC Hgb Hct MCV MCH MCHC RDW Plt Count MPV Immature Gran % (Auto) Neut % (Auto) Lymph % (Auto) Lewis % (Auto) Eos % (Auto) Baso % (Auto) Lymph # (Auto) Lewis # (Auto) Eos # (Auto) Baso # (Auto) Abs Immat Gran (auto) Absolute Neuts (auto) Absolute Nucleated RBC Nucleated RBC % (auto) Neutrophils % (Manual) Band Neutrophils % Lymphocytes % (Manual) Atypical Lymphs % (Man) Monocytes % (Manual) Basophils % (Manual) Metamyelocytes % Abs Neuts (Manual) Lymphocytes # (Manual) Atyp Lymphs # (Manual) Monocytes # (Manual) Basophils # (Manual) Metamyelocytes # Toxic Vacuolation Platelet Estimate Plt Morphology Comment RBC Morphology Macrocytosis [place] Cells Schistocytes Smear Path Review Hold Purple Top PT INR Sodium Potassium Chloride Carbon Dioxide Anion Gap BUN Creatinine Estim Creat Clear Calc Estimated GFR POC Glucose 58 L* 141 H Random Glucose Lactic Acid Lactic Acid F/U @ 2Hr Calcium Magnesium Total Bilirubin AST ALT Alkaline Phosphatase Troponin I High Sens Total Protein Albumin Vancomycin Trough Random Vancomycin 20.8 H C. difficile Tox B Gene Influenza Type A (PCR) Influenza Type B (PCR) RSV RNA Qual (PCR) SARS-CoV-2 RNA (RT-PCR) Blood Type Antibody Screen 07/17/25 07/17/25 07/17/25 09:01 09:05 11:27 WBC RBC Hgb Hct MCV MCH MCHC RDW Plt Count MPV Immature Gran % (Auto) Neut % (Auto) Lymph % (Auto) Lewis % (Auto) Eos % (Auto) Baso % (Auto) Lymph # (Auto) Lewis # (Auto) Eos # (Auto) Baso # (Auto) Abs Immat Gran (auto) Absolute Neuts (auto) Absolute Nucleated RBC Nucleated RBC % (auto) Neutrophils % (Manual) Band Neutrophils % Lymphocytes % (Manual) Atypical Lymphs % (Man) Monocytes % (Manual) Basophils % (Manual) Metamyelocytes % Abs Neuts (Manual) Lymphocytes # (Manual) Atyp Lymphs # (Manual) Monocytes # (Manual) Basophils # (Manual) Metamyelocytes # Toxic Vacuolation Platelet Estimate Plt Morphology Comment RBC Morphology Macrocytosis [place] Cells Schistocytes Smear Path Review Hold Purple Top SEE NOTE PT INR Sodium 143 Potassium 3.1 L Chloride 110 H Carbon Dioxide 19 L Anion Gap 17 BUN 42 H Creatinine 0.97 Estim Creat Clear Calc 68.8 Estimated GFR > 60 POC Glucose 100 Random Glucose 144 H Lactic Acid Lactic Acid F/U @ 2Hr Calcium 8.2 L Magnesium Total Bilirubin AST ALT Alkaline Phosphatase Troponin I High Sens Total Protein Albumin Vancomycin Trough Random Vancomycin 18.2 C. difficile Tox B Gene Influenza Type A (PCR) Influenza Type B (PCR) RSV RNA Qual (PCR) SARS-CoV-2 RNA (RT-PCR) Blood Type Antibody Screen 07/17/25 07/17/25 07/17/25 16:23 19:40 20:04 WBC RBC Hgb Hct MCV MCH MCHC RDW Plt Count MPV Immature Gran % (Auto) Neut % (Auto) Lymph % (Auto) Lewis % (Auto) Eos % (Auto) Baso % (Auto) Lymph # (Auto) Lewis # (Auto) Eos # (Auto) Baso # (Auto) Abs Immat Gran (auto) Absolute Neuts (auto) Absolute Nucleated RBC Nucleated RBC % (auto) Neutrophils % (Manual) Band Neutrophils % Lymphocytes % (Manual) Atypical Lymphs % (Man) Monocytes % (Manual) Basophils % (Manual) Metamyelocytes % Abs Neuts (Manual) Lymphocytes # (Manual) Atyp Lymphs # (Manual) Monocytes # (Manual) Basophils # (Manual) Metamyelocytes # Toxic Vacuolation Platelet Estimate Plt Morphology Comment RBC Morphology Macrocytosis [place] Cells Schistocytes Smear Path Review Hold Purple Top PT INR Sodium Potassium Chloride Carbon Dioxide Anion Gap BUN Creatinine Estim Creat Clear Calc Estimated GFR POC Glucose 150 H 175 H Random Glucose Lactic Acid Lactic Acid F/U @ 2Hr Calcium Magnesium Total Bilirubin AST ALT Alkaline Phosphatase Troponin I High Sens Total Protein Albumin Vancomycin Trough 15.4 Random Vancomycin C. difficile Tox B Gene Influenza Type A (PCR) Influenza Type B (PCR) RSV RNA Qual (PCR) SARS-CoV-2 RNA (RT-PCR) Blood Type Antibody Screen 07/17/25 07/18/25 07/18/25 21:24 06:07 07:28 WBC RBC Hgb Hct MCV MCH MCHC RDW Plt Count MPV Immature Gran % (Auto) Neut % (Auto) Lymph % (Auto) Lewis % (Auto) Eos % (Auto) Baso % (Auto) Lymph # (Auto) Lewis # (Auto) Eos # (Auto) Baso # (Auto) Abs Immat Gran (auto) Absolute Neuts (auto) Absolute Nucleated RBC Nucleated RBC % (auto) Neutrophils % (Manual) Band Neutrophils % Lymphocytes % (Manual) Atypical Lymphs % (Man) Monocytes % (Manual) Basophils % (Manual) Metamyelocytes % Abs Neuts (Manual) Lymphocytes # (Manual) Atyp Lymphs # (Manual) Monocytes # (Manual) Basophils # (Manual) Metamyelocytes # Toxic Vacuolation Platelet Estimate Plt Morphology Comment RBC Morphology Macrocytosis [place] Cells Schistocytes Smear Path Review Hold Purple Top PT INR Sodium 145 Potassium 3.2 L Chloride 111 H Carbon Dioxide 20 L Anion Gap 17 BUN 26 H Creatinine 0.82 Estim Creat Clear Calc 81.4 Estimated GFR > 60 POC Glucose 140 H 167 H Random Glucose 158 H Lactic Acid Lactic Acid F/U @ 2Hr Calcium 8.0 L Magnesium Total Bilirubin AST ALT Alkaline Phosphatase Troponin I High Sens Total Protein Albumin Vancomycin Trough Random Vancomycin C. difficile Tox B Gene Influenza Type A (PCR) Influenza Type B (PCR) RSV RNA Qual (PCR) SARS-CoV-2 RNA (RT-PCR) Blood Type Antibody Screen Airway Mallampati Class: IV TM Dist: >3cm Neck ROM: Full Loose/Missing/Broken Teeth: Upper and Lower Heart: RRR Lungs: CTA Assessment and Plan Assessment Anesthesia Assessment: Anesthesia Plan Discussed Final Anesthetic Review Family History of Problems with Anesthesia: No History of Problems with Anesthesia: No NPO: Yes ASA Class: IV Final Preanesthetic Review: Meds/Allgs Chart Reviewed, Consent Obtained/Reviewed and Anes Risks/Benef Reviewed Patient Risk: High Procedure Risk: Low Anesthetic Plan Anesthetic Plan: MAC: Disposition: Standard PACU
[2025-07-18] MEDS: Dextrose 5 % and Lactated Ring 1,000 ML 100 ML IVCONT (10:47)
[2025-07-18 11:46] LABS: Glucose, Whole Blood 108 mg/dL (60-115)
--- NOTE | 2025-07-18 13:27 | MHC.SHP ---
Pre-Procedural Eval Section A - 24 Hr Update-Section A only Date of Service: 07/18/25 The patient is an INPATIENT: Yes The patient has been examined within 24 hours of the surgical procedure. The History & Physical has been completed within 30 days and I have reviewed it.: Yes Section B - Complete if H&P > 30 days Chief Complaint: AMS Allergies: Allergies Allergy/AdvReac Type Severity Reaction Status Date / Time Benzodiazepines Allergy Unknown UNKNOWN Verified 07/10/25 16:36 (BENZODIAZEPINES) dalfampridine (From AMPYRA) Allergy Unknown UNKNOWN Verified 07/10/25 16:36 duloxetine (From CYMBALTA) Allergy Unknown UNKNOWN Verified 07/10/25 16:36 ezetimibe (From ZETIA) Allergy Unknown UNKNOWN Verified 07/10/25 16:36 niacin (NIACIN) Allergy Unknown UNKNOWN Verified 07/10/25 16:36 pravastatin (PRAVASTATIN) Allergy Unknown UNKNOWN Verified 07/10/25 16:36 Kbyhtqp-[id number]-[id number] Reductase Allergy Unknown UNKNOWN Verified 07/10/25 16:36 Inhibitor ([id number] REDUCTASE INHIBITOR) lorazepam (From ATIVAN) AdvReac Severe EXCESSIVE Verified 07/10/25 16:36 SEDATION doxycycline (DOXYCYCLINE) AdvReac Mild esophogeal Verified 07/10/25 16:36 iritation methylprednisolone (From AdvReac Mild heartburn Verified 07/10/25 16:36 SOLU-MEDROL) ertapenem (From INVANZ) AdvReac Unknown possible Verified 07/10/25 16:36 cause of bullous pemphigoid Plan Diagnosis/Plan: Unchanged I have reviewed the history and physical and performed a pertinent physical examination on my patient. No changes have occurred unless specified. Time Spent With Patient Time: Total time managing care of this patient today ____ minutes.
--- NOTE | 2025-07-18 13:41 | MHC.CLN ---
F/U DIET ORDER NPO OR CLEAR LIQUIDS SINCE 07/11. NPO FOR PROCEDURE TODAY. DIET HAD BEEN CLEAR LIQUIDS WITH GELATEIN SUPPLEMENT TID (480 KCALS, 60 G PROTEIN). SKIN WITH STAGE III PRESSURE INJURY TO COCCYX AND REDNESS TO BILATERAL FEET. MAY REQUIRE ALTERNATE NUTRITION VIA PPN IF UNABLE TO ADVANCE DIET. FOLLOW FOR DIET ADVANCEMENT, PO INTAKE AND SKIN INTEGRITY.
--- NOTE | 2025-07-18 14:41 | P.OP_ITS ---
Operative Note Operative Note Date of Service: 07/18/25 Narrative: Procedure: Esophagogastroduodenoscopy and flexible sigmoidoscopy Endoscopist: Maine Mendez MD Indication: Gastric outlet obstruction, proctitis Anesthesia Provider: Dr Adela Cardenas Anesthesia Type: MAC ?? EGD Procedure:?? The procedure, indications, preparation and potential complications were reviewed with the patient, who indicated understanding and gave written informed consent to proceed. A physical exam was performed. Prior to the start of the procedure, NG tube was removed by the anesthesiologist while connected to the suction. IV medications were administered. The endoscope was introduced through the mouth, and advanced to the fourth part of duodenum. The mucosa was carefully examined on slow withdrawal of the endoscope. The patient tolerated the procedure well. ? EGD Findings:? * Esophagus:? Diffuse erythema and ulceration in the esophagus was noted. At 25 cm there was a small defect in the esophagus suspicious for NG tube trauma. There was spontaneous bleeding. A resolution 360 Ultra clip was placed to attempt to close the defect and for hemostasis. Hemospray was then applied for complete hemostasis. * Stomach:? Small patchy gastritis in the fundus. Retroflexion was performed in the cardia. * Duodenum:? Bilious secretions in duodenum without obvious stricture noted. An endoclip was placed to edward the distal most area of the duodenum. ? EGD Impressions:? * Esophagitis with bleeding esophageal defect at 25 cm suspicious for NG tube trauma (endoclip, hemospray) * Gastritis * Normal duodenum (endoclip) ?? Recommendations:?? * Due to the above complication, decision was made to NOT proceed with flex sig. * Stat CT chest without contrast * If no pneumomediastinum, please keep pt NPO for 24h and obtain esophageal perforation protocol CTs tmrw * If pneumomediastinum confirmed, pt will need to be transferred to tertiary care center with thoracic surgery service * Above was also reviewed with the pt's son David over the phone. Above has been reviewed with the patient.
--- NOTE | 2025-07-18 14:55 | MHC.CM.PN ---
per rounds pt to have n egd today with possible dc tomorrow
[2025-07-18] MEDS: 0.9 % Sodium Chloride Flush 3 ML SYRINGE IVFLUSH (15:46)
[2025-07-18 16:13] LABS: Glucose, Whole Blood 123 mg/dL (60-115)
--- NOTE | 2025-07-18 17:16 | PC.NURSE ---
patient refuses sequentials ,risks explained,encouraged activity
[2025-07-18 20:17] LABS: Glucose, Whole Blood 161 mg/dL (60-115)
[2025-07-18 22:39] LABS: Glucose, Whole Blood 152 mg/dL (60-115)
[2025-07-19] VITALS (17 sets, daily range): BP systolic 91–182; BP diastolic 51–81; PULSE 68–97; RESP 16–20; TEMP 34.9–36.5; O2SAT 95–100; BMI 25.1
[2025-07-19] MEDS: Dextrose 5 % and Lactated Ring 1,000 ML 100 ML IVCONT (02:38)
[2025-07-19 07:02] LABS: Anion Gap 13 (12-20); Blood Urea Nitrogen 16 mg/dL (9-16); Calcium 7.9 mg/dL (8.4-10.2); Carbon Dioxide 25 mmol/L (22-29); Chloride 110 mmol/L (96-108); Creatinine Clr Calc Pharmacy 89.0; Estimated Glomerular Filt Rate > 60; Potassium 2.6 mmol/L (3.3-5.1); Sodium 145 mmol/L (135-145)
[2025-07-19 07:50] LABS: Glucose, Whole Blood 140 mg/dL (60-115)
[2025-07-19] MEDS: 0.9 % Sodium Chloride Flush 3 ML SYRINGE IVFLUSH ×2 (08:07→16:31)
--- NOTE | 2025-07-19 08:18 | HO.POSTANES ---
Post Anesthesia Evaluation Post Anesthesia Evaluation Date of Service: 07/19/25 Vital Signs: Vital Signs Temp Pulse Resp BP Pulse Ox O2 Del Method 07/19/25 07:33 97.4 F 97 18 97 Room Air 07/19/25 05:50 170/70 H 07/19/25 04:00 97.1 F 94 18 170/81 H 95 Room Air Anesthesia: Monitored Mental Status: Awake Pain Control: Satisfactory Nausea/Vomiting: None Hydration: Adequate Anesthesia-Related Issues: No Anes. Related Issues
--- NOTE | 2025-07-19 08:21 | PM.PNGS ---
Subjective Subjective Date of Service: 07/19/25 <Elizabeth Sal PA-C - Last Filed: 07/19/25 08:32> 07/19/25 <Simeon Marina MD - Last Filed: 07/19/25 11:17> Interval history: Found to have esophagitis with bleeding esophageal defect at 25 cm suspicious for NG tube trauma yesterday during EGD. Stat Chest CT therefore obtained- no pneumomediastinum. He is complaining of heartburn and nausea this AM. Denies flatus. Denies abd pain. <Elizabeth Sal PA-C - Last Filed: 07/19/25 08:32> Physical Exam Vital Signs: Vital Signs: Last Vital Signs Temp 97.4 F 07/19/25 07:33 Pulse 97 07/19/25 07:33 Resp 18 07/19/25 07:33 BP 170/70 H 07/19/25 05:50 Pulse Ox 97 07/19/25 07:33 O2 Del Method Room Air 07/19/25 07:33 O2 Flow Rate 2 07/12/25 08:37 BMI result Body Mass Index 25.1 <Elizabeth Sal PA-C - Last Filed: 07/19/25 08:32> Const: General: comfortable, no acute distress and alert <Elizabeth Sal PA-C - Last Filed: 07/19/25 08:32> Resp: Effort & Inspection: normal respiratory effort <Elizabeth Sal PA-C - Last Filed: 07/19/25 08:32> GI: Inspection: Yes distended <Elizabeth Sal PA-C - Last Filed: 07/19/25 08:32> Palpation (GI): Soft to palpation, nontender and no guarding <Elizabeth Sal PA-C - Last Filed: 07/19/25 08:32> Percussion: Yes tympanic to percussion <NEYMAR Torres Last Filed: 07/19/25 08:32> Objective Data Active Medications Acetaminophen (Acetaminophen 325 Mg Tablet) 650 mg PO Q6H PRN PRN Reason: Pain, Mild 1-3,fever,headache Last Admin: 07/17/25 15:42 Dose: 650 mg Documented By: CHEN Acetaminophen (Acetaminophen 325 Mg Tablet) 650 mg PO BEDTIME [facility] Last Admin: 07/18/25 20:28 Dose: Not Given Documented By: TARA Non-Admin Reason: NPO Amlodipine Besylate (Amlodipine Besylate 10 Mg Tablet) 10 mg PO DAILY [facility]; Protocol Last Admin: 07/18/25 09:18 Dose: 10 mg Documented By: NAHUM Ascorbic Acid (Ascorbic Acid 500 Mg Tablet) 500 mg PO DAILY [facility] Last Admin: 07/18/25 09:21 Dose: Not Given Documented By: NAHUM Non-Admin Reason: NPO Aspirin (Aspirin Enteric Coated 81 Mg Tablet.) 81 mg PO DAILY [facility] Last Admin: 07/18/25 09:22 Dose: Not Given Documented By: NAHUM Non-Admin Reason: NPO Atorvastatin Calcium (Atorvastatin Calcium 10 Mg Tablet) 10 mg PO DAILY [facility] Last Admin: 07/18/25 09:22 Dose: Not Given Documented By: NAHUM Non-Admin Reason: NPO Bacitracin (Bacitracin Oint 14 Gm Tube) 1 appl TOPICAL BID [facility]; Protocol Last Admin: 07/19/25 08:06 Dose: 1 appl Documented By: NOMAN Benzocaine (Throat Lozenge, Medicated Lozenge) 1 lozenge MUCOUS MEM Q2H PRN PRN Reason: Sore Throat Last Admin: 07/18/25 05:30 Dose: 1 lozenge Documented By: TARA Bisacodyl (Bisacodyl 5 Mg Tablet.) 5 mg PO DAILY PRN PRN Reason: Constipation Bisacodyl (Bisacodyl 10 Mg Supp.Rect) 10 mg NJ DAILY PRN PRN Reason: Constipation Bisacodyl (Bisacodyl 10 Mg Supp.Rect) 10 mg NJ Q3D [facility] Last Admin: 07/18/25 09:30 Dose: 10 mg Documented By: NAHUM Bismuth Subsalicylate (Bismuth Subsalicylate Liquid 524 Mg/30 Ml Oral.Susp) 524 mg PO Q8H PRN PRN Reason: UPSET STOMACH/NAUSEA Calcium Carbonate (Calcium Carbonate 750 Mg Tab.Chew) 750 mg PO Q4H PRN PRN Reason: Heartburn Last Admin: 07/12/25 03:39 Dose: 750 mg Documented By: WONG Carvedilol (Carvedilol 6.25 Mg Tablet) 6.25 mg PO BID [facility]; Protocol Last Admin: 07/18/25 20:27 Dose: Not Given Documented By: TARA Non-Admin Reason: NPO Dextrose (Dextrose 50 % 25 Gm/50 Ml Syringe) 25 gm IVPUSH Q15M PRN; Protocol PRN Reason: per Hypoglycemia Standing Ord. Last Admin: 07/17/25 07:49 Dose: 25 gm Documented By: CHEN Docusate Sodium (Docusate Sodium 100 Mg Capsule) 200 mg PO BID [facility] Last Admin: 07/18/25 20:27 Dose: Not Given Documented By: TARA Non-Admin Reason: NPO Enoxaparin Sodium (Enoxaparin Sodium 40 Mg/0.4 Ml Syringe) 40 mg SUBCUT Q24H [facility] Last Admin: 07/19/25 00:21 Dose: 40 mg Documented By: TARA Famotidine (Famotidine 20 Mg Tablet) 20 mg PO DAILY [facility] Last Admin: 07/18/25 09:22 Dose: Not Given Documented By: NAHUM Non-Admin Reason: NPO Famotidine (Famotidine/Pf 20 Mg/2 Ml Vial) 20 mg IVPUSH BID [facility] Ferrous Sulfate (Ferrous Sulfate 324 Mg Tablet.) 324 mg PO DAILY [facility] Last Admin: 07/18/25 09:22 Dose: Not Given Documented By: NAHUM Non-Admin Reason: NPO Folic Acid (Folic Acid 1 Mg Tablet) 1 mg PO SUTUWETHFRSA [facility] Last Admin: 07/17/25 17:37 Dose: 1 mg Documented By: CHEN Gabapentin (Gabapentin 300 Mg Capsule) 300 mg PO TID [facility] Last Admin: 07/18/25 20:27 Dose: Not Given Documented By: TARA Non-Admin Reason: NPO Glucose (Glucose Gel 15 Gm Gel..Gram.) 15 gm PO Q15M PRN; Protocol PRN Reason: per Hypoglycemia Standing Ord. Guaifenesin (Guaifenesin 200 Mg/10 Ml 10 Ml Liquid) 10 ml PO Q4H PRN PRN Reason: Cough Last Admin: 07/15/25 02:42 Dose: 10 ml Documented By: BYRON Guaifenesin (Guaifenesin La 600 Mg Tab.Er.12h) 600 mg PO Q12H PRN PRN Reason: Cold Symptoms Vancomycin HCl 750 mg/ Sodium (Chloride) 265 mls @ 265 mls/hr IV Q24H [facility] Last Infusion: 07/19/25 00:35 Dose: Infused Documented By: TARA Dextrose/Lactated Ringer's (D5lr) 1,000 mls @ 100 mls/hr IVCONT .Q10H [facility] Last Admin: 07/19/25 02:38 Dose: 100 mls/hr Documented By: TARA Potassium Chloride (Potassium Chloride/H20) 10 meq in 100 mls @ 100 mls/hr IV Q1H [facility] Stop: 07/19/25 09:14 Insulin Human Lispro (Insulin Lispro 100 Unit/Ml 3 Ml Vial) 0 unit SUBCUT QIDACHS [facility]; Protocol Last Admin: 07/19/25 07:57 Dose: Not Given Documented By: NOMAN Non-Admin Reason: No Insulin Coverage Lactulose (Lactulose 20 Gm/30 Ml Solution) 20 gm PO DAILY [facility] Last Admin: 07/18/25 09:23 Dose: Not Given Documented By: NAHUM Non-Admin Reason: NPO Lidocaine HCl (Lidocaine Hcl Viscous 2 % 15 Ml Solution) 15 ml MUCOUS MEM Q3H PRN PRN Reason: Dyspepsia Last Admin: 07/18/25 03:27 Dose: 15 ml Documented By: TARA Loperamide HCl (Loperamide Hcl 2 Mg Capsule) 2 mg PO Q4H PRN PRN Reason: Diarrhea Last Admin: 07/13/25 22:35 Dose: 2 mg Documented By: CARMELINA Magnesium Hydroxide (Milk Of Magnesia 30 Ml Oral.Susp) 30 ml PO DAILY PRN PRN Reason: Constipation Magnesium Hydroxide (Milk Of Magnesia 30 Ml Oral.Susp) 30 ml PO BEDTIME PRN PRN Reason: Constipation Melatonin (Melatonin 3 Mg Tablet) 6 mg PO BEDTIME PRN PRN Reason: Insomnia Last Admin: 07/11/25 03:45 Dose: 6 mg Documented By: DOROTHEA Meropenem (Meropenem 1 Gm Vial) 1 gm IVPUSH Q12H [facility] Last Admin: 07/18/25 23:02 Dose: 1 gm Documented By: TARA Methotrexate (Methotrexate Sodium 2.5 Mg Tablet) 15 mg PO MO [facility] Last Admin: 07/18/25 20:27 Dose: Not Given Documented By: TARA Non-Admin Reason: NPO Morphine Sulfate (Morphine Sulfate 2 Mg/Ml Cartridge) 1 mg IVPUSH Q3H PRN; Protocol PRN Reason: Pain, Severe (Pain Scale 7-10) Last Admin: 07/17/25 13:20 Dose: 1 mg Documented By: CHEN Comments: PT pain reported at 7/10 in throat area. Naloxone HCl (Naloxone Hcl 0.4 Mg/Ml Vial) 0.04 mg IVPUSH Q5M PRN PRN Reason: Excessive sedation or RR < 8 Nystatin (Nystatin Powder 15 Gm Bottle) 1 appl TOPICAL BID [facility]; Protocol Last Admin: 07/19/25 08:06 Dose: 1 appl Documented By: NOMAN Ondansetron HCl (Ondansetron Hcl 4 Mg/2 Ml Vial) 4 mg IVPUSH Q8H PRN PRN Reason: Nausea and Vomiting Last Admin: 07/11/25 21:02 Dose: 4 mg Documented By: WONG Comments: early dose per provider Pharmacy Consult (Consult Rx Vancomycin Dosing) 1 each MISCELLANE DAILY PRN PRN Reason: Consult order Polyethylene Glycol (Polyethylene Glycol 3350 17 Gm Powd.Pack) 17 gm PO DAILY [facility] Last Admin: 07/18/25 09:23 Dose: Not Given Documented By: NAHUM Non-Admin Reason: NPO Prednisone (Prednisone 2.5 Mg Tablet) 2.5 mg PO DAILY [facility] Last Admin: 07/18/25 09:18 Dose: 2.5 mg Documented By: NAHUM Sodium Biphosphate/Sodium Phosphate (Sodium Phosphate,[place]-Dibasic 133 Ml Enema) 118 ml NJ DAILY PRN PRN Reason: Constipation Sodium Chloride (0.9 % Sodium Chloride Flush 3 Ml Syringe) 3 ml IVFLUSH QSHIFT [facility] Last Admin: 07/19/25 08:07 Dose: 3 ml Documented By: NOMAN Sucralfate (Sucralfate Oral Suspension 1 Gm/10 Ml Oral.Susp) 1 gm PO QIDACHS [facility] Last Admin: 07/18/25 20:27 Dose: Not Given Documented By: TARA Non-Admin Reason: NPO Trazodone HCl (Trazodone Hcl 50 Mg Tablet) 50 mg PO BEDTIME [facility] Last Admin: 07/18/25 20:27 Dose: Not Given Documented By: TARA Non-Admin Reason: NPO Vitamin D (Cholecalciferol (Vitamin D3) 25 Mcg Tablet) 25 mcg PO DAILY [facility] Last Admin: 07/18/25 09:22 Dose: Not Given Documented By: NAHUM Non-Admin Reason: NPO <Elizabeth Sal PA-C - Last Filed: 07/19/25 08:32> Labs CBC & Chem 7: 07/19/25 10:12 07/19/25 05:54 <Elizabeth Sal PA-C - Last Filed: 07/19/25 08:32> Labs: Laboratory Results - last 24 hr 07/18/25 07/18/25 07/18/25 06:07 11:31 15:59 Hold Purple Top Anion Gap 17 Estim Creat Clear Calc 81.4 Estimated GFR > 60 POC Glucose 108 123 H Random Glucose 158 H Calcium 8.0 L Random Vancomycin 07/18/25 07/18/25 07/18/25 20:02 20:06 22:37 Hold Purple Top Anion Gap Estim Creat Clear Calc Estimated GFR POC Glucose 161 H 152 H Random Glucose Calcium Random Vancomycin 15.9 07/19/25 07/19/25 05:54 07:27 Hold Purple Top SEE NOTE Anion Gap 13 Estim Creat Clear Calc 89.0 Estimated GFR > 60 POC Glucose 140 H Random Glucose 154 H Calcium 7.9 L Random Vancomycin <Elizabeth Sal PA-C - Last Filed: 07/19/25 08:32> Procedures Date of Service Date of Service: 07/19/25 <Elizabeth Sal PA-C - Last Filed: 07/19/25 08:32> 07/19/25 <Simeon Marina MD - Last Filed: 07/19/25 11:17> Progress Note: A&P Assessment and plan (1) Duodenal obstruction: Status: Acute <Elizabeth Sal PA-C - Last Filed: 07/19/25 08:32> Assessment and Plan: Seen earlier on morning rounds Endoscopy yesterday does not show any gastric outlet obstruction Question of tear in the esophagus during procedure - CAT scan does not show pneumomediastinum Abdomen is soft and benign GI follow up <Simeon Marina MD - Last Filed: 07/19/25 11:17> Assessment and Plan: CT scan with oral contrast as per GI. Would keep NPO for now. His abdomen remains soft but distended. Will continue to follow. <Elizabeth Sal PA-C - Last Filed: 07/19/25 08:32> Time Spent With Patient Time: Total time managing care of this patient today ____ minutes. <Elizabeth Sal PA-C - Last Filed: 07/19/25 08:32> Quality Stroke Does the patient have a stroke diagnosis?: No <Elizabeth Sal PA-C - Last Filed: 07/19/25 08:32> VTE Prior VTE?: No <Elizabeth Sal PA-C - Last Filed: 07/19/25 08:32> VTE Risk Level:: Medical - moderate - high <Elizabeth Sal PA-C - Last Filed: 07/19/25 08:32> VTE Device Contraindication: Treatment Not Indicated <Elizabeth Sal PA-C - Last Filed: 07/19/25 08:32> VTE Drug Contraindication: N/A - Med Ordered <Elizabeth Sal PA-C - Last Filed: 07/19/25 08:32>
[2025-07-19] MEDS: Potassium Chloride/H20 10 MEQ/100 ML PIGGYBACK 100 MEQ IV ×4 (09:07→16:30)
[2025-07-19 09:14] LABS: Hematocrit 24.8 % (42.0-52.0); Hemoglobin 8.5 g/dl (14.0-18.0); Mean Corpuscular HGB Conc 34.3 g/dl (31.0-36.0); Mean Corpuscular Hemoglobin 31.8 pg (27.0-33.0); Mean Corpuscular Volume 92.9 fL (80.0-98.0); NRBC Abs Auto 0.020 X10*3/uL (0.0-0.012); NRBC Pct Auto 0.3 /100WBC (0.0-0.2); Red Blood Count 2.67 X10*6/uL (4.60-5.80); White Blood Count 6.3 X10*3/uL (4.8-10.8)
--- NOTE | 2025-07-19 09:15 | PC.NURSE ---
Patient spitting small amt of bloody sputum,c/o chest pain,Dr. Sykes called to bedside ,stat CT ordered for patient
[2025-07-19 09:16] LABS: Platelet Count 92 X10*3/uL (160-400)
--- NOTE | 2025-07-19 09:20 | PC.NURSE ---
RN called CT,transport is coming now to take pt to CT
[2025-07-19 09:27] LABS: Magnesium 1.6 mg/dL (1.6-2.6)
[2025-07-19 09:35] LABS: Atypical Lymph Absolute Manual 0.1 x10*3/uL; Atypical Lymphs Percent Manual 2 % (0-6); Band Neutrophils Percent 0 % (3-5); Eosinophils Absolute Manual 0.3 X10*3/uL (0.0-0.4); Eosinophils Percent Manual 4 % (0-4); Lymphocytes Absolute Manual 0.6 X10*3/uL (1.2-4.9); Lymphocytes Percent Manual 10 % (20-40); Metamyelocytes Absolute 0.1 X10*3/uL; Metamyelocytes Percent 1 %; Monocytes Absolute Manual 0.3 X10*3/uL (0.1-1.2); Monocytes Percent Manual 4 % (2-11); Neutrophils Absolute Manual 5.0 X10*3/uL (2.0-8.3); Neutrophils Percent Manual 79 % (45-73)
[2025-07-19 09:39] LABS: Burr Cells 2+ (3-5) /OIF; RBC Morphology NOTED
--- NOTE | 2025-07-19 09:42 | HO.PM.IMPN ---
Subjective Subjective Date of Service: 07/19/25 Interval History: s/p EGD 07/18 with findings of Esophagitis with bleeding esophageal defect at 25 cm suspicious for NG tube trauma (endoclip, hemospray) Gastritis Normal duodenum (endoclip) This morning has developped sudden chest pain and spitting blood, a stat CT is request to rule out perforated esophagus, CT post EGD yesterday showed no evidence of perforation Physical Exam Exam: Exam: General: AO X 3, no acute distress Resp: CTA bilateral CVS: S1,S2,RRR GI: +BS, mild tenderness, + distention Skin: some redness on feet--chronic Neuro: motor grossly intact Psych: appropriate affect Vital Signs: Vital Signs: Last Vital Signs Temp 97.4 F 07/19/25 07:33 Pulse 95 07/19/25 08:45 Resp 18 07/19/25 07:33 BP 179/77 H 07/19/25 08:45 Pulse Ox 97 07/19/25 07:33 O2 Del Method Room Air 07/19/25 07:33 O2 Flow Rate 2 07/12/25 08:37 BMI result Body Mass Index 25.1 Objective Data Active Medications Acetaminophen (Acetaminophen 325 Mg Tablet) 650 mg PO Q6H PRN PRN Reason: Pain, Mild 1-3,fever,headache Last Admin: 07/17/25 15:42 Dose: 650 mg Documented By: CHEN Acetaminophen (Acetaminophen 325 Mg Tablet) 650 mg PO BEDTIME [facility] Last Admin: 07/18/25 20:28 Dose: Not Given Documented By: TARA Non-Admin Reason: NPO Amlodipine Besylate (Amlodipine Besylate 10 Mg Tablet) 10 mg PO DAILY [facility]; Protocol Last Admin: 07/18/25 09:18 Dose: 10 mg Documented By: NAHUM Ascorbic Acid (Ascorbic Acid 500 Mg Tablet) 500 mg PO DAILY [facility] Last Admin: 07/18/25 09:21 Dose: Not Given Documented By: NAHUM Non-Admin Reason: NPO Aspirin (Aspirin Enteric Coated 81 Mg Tablet.) 81 mg PO DAILY [facility] Last Admin: 07/18/25 09:22 Dose: Not Given Documented By: NAHUM Non-Admin Reason: NPO Atorvastatin Calcium (Atorvastatin Calcium 10 Mg Tablet) 10 mg PO DAILY [facility] Last Admin: 07/18/25 09:22 Dose: Not Given Documented By: NAHUM Non-Admin Reason: NPO Bacitracin (Bacitracin Oint 14 Gm Tube) 1 appl TOPICAL BID [facility]; Protocol Last Admin: 07/19/25 08:06 Dose: 1 appl Documented By: NOMAN Benzocaine (Throat Lozenge, Medicated Lozenge) 1 lozenge MUCOUS MEM Q2H PRN PRN Reason: Sore Throat Last Admin: 07/18/25 05:30 Dose: 1 lozenge Documented By: TARA Bisacodyl (Bisacodyl 5 Mg Tablet.Dr) 5 mg PO DAILY PRN PRN Reason: Constipation Bisacodyl (Bisacodyl 10 Mg Supp.Rect) 10 mg CA DAILY PRN PRN Reason: Constipation Bisacodyl (Bisacodyl 10 Mg Supp.Rect) 10 mg CA Q3D [facility] Last Admin: 07/18/25 09:30 Dose: 10 mg Documented By: NAHUM Bismuth Subsalicylate (Bismuth Subsalicylate Liquid 524 Mg/30 Ml Oral.Susp) 524 mg PO Q8H PRN PRN Reason: UPSET STOMACH/NAUSEA Calcium Carbonate (Calcium Carbonate 750 Mg Tab.Chew) 750 mg PO Q4H PRN PRN Reason: Heartburn Last Admin: 07/12/25 03:39 Dose: 750 mg Documented By: WONG Carvedilol (Carvedilol 6.25 Mg Tablet) 6.25 mg PO BID [facility]; Protocol Last Admin: 07/18/25 20:27 Dose: Not Given Documented By: TARA Non-Admin Reason: NPO Dextrose (Dextrose 50 % 25 Gm/50 Ml Syringe) 25 gm IVPUSH Q15M PRN; Protocol PRN Reason: per Hypoglycemia Standing Ord. Last Admin: 07/17/25 07:49 Dose: 25 gm Documented By: CHEN Docusate Sodium (Docusate Sodium 100 Mg Capsule) 200 mg PO BID [facility] Last Admin: 07/18/25 20:27 Dose: Not Given Documented By: TARA Non-Admin Reason: NPO Enoxaparin Sodium (Enoxaparin Sodium 40 Mg/0.4 Ml Syringe) 40 mg SUBCUT Q24H [facility] Last Admin: 07/19/25 00:21 Dose: 40 mg Documented By: TARA Famotidine (Famotidine 20 Mg Tablet) 20 mg PO DAILY [facility] Last Admin: 07/18/25 09:22 Dose: Not Given Documented By: NAHUM Non-Admin Reason: NPO Famotidine (Famotidine/Pf 20 Mg/2 Ml Vial) 20 mg IVPUSH BID [facility] Last Admin: 07/19/25 08:40 Dose: 20 mg Documented By: NOMAN Ferrous Sulfate (Ferrous Sulfate 324 Mg Tablet.Dr) 324 mg PO DAILY [facility] Last Admin: 07/18/25 09:22 Dose: Not Given Documented By: NAHUM Non-Admin Reason: NPO Folic Acid (Folic Acid 1 Mg Tablet) 1 mg PO SUTUWETHFRSA [facility] Last Admin: 07/17/25 17:37 Dose: 1 mg Documented By: CHEN Gabapentin (Gabapentin 300 Mg Capsule) 300 mg PO TID [facility] Last Admin: 07/18/25 20:27 Dose: Not Given Documented By: TARA Non-Admin Reason: NPO Glucose (Glucose Gel 15 Gm Gel..Gram.) 15 gm PO Q15M PRN; Protocol PRN Reason: per Hypoglycemia Standing Ord. Guaifenesin (Guaifenesin 200 Mg/10 Ml 10 Ml Liquid) 10 ml PO Q4H PRN PRN Reason: Cough Last Admin: 07/15/25 02:42 Dose: 10 ml Documented By: BYRON Guaifenesin (Guaifenesin La 600 Mg Tab.Er.12h) 600 mg PO Q12H PRN PRN Reason: Cold Symptoms Vancomycin HCl 750 mg/ Sodium (Chloride) 265 mls @ 265 mls/hr IV Q24H [facility] Last Infusion: 07/19/25 00:35 Dose: Infused Documented By: TARA Dextrose/Lactated Ringer's (D5lr) 1,000 mls @ 100 mls/hr IVCONT .Q10H [facility] Last Admin: 07/19/25 02:38 Dose: 100 mls/hr Documented By: TARA Insulin Human Lispro (Insulin Lispro 100 Unit/Ml 3 Ml Vial) 0 unit SUBCUT QIDACHS [facility]; Protocol Last Admin: 07/19/25 07:57 Dose: Not Given Documented By: NOMAN Non-Admin Reason: No Insulin Coverage Lactulose (Lactulose 20 Gm/30 Ml Solution) 20 gm PO DAILY [facility] Last Admin: 07/18/25 09:23 Dose: Not Given Documented By: NAHUM Non-Admin Reason: NPO Lidocaine HCl (Lidocaine Hcl Viscous 2 % 15 Ml Solution) 15 ml MUCOUS MEM Q3H PRN PRN Reason: Dyspepsia Last Admin: 07/18/25 03:27 Dose: 15 ml Documented By: TARA Loperamide HCl (Loperamide Hcl 2 Mg Capsule) 2 mg PO Q4H PRN PRN Reason: Diarrhea Last Admin: 07/13/25 22:35 Dose: 2 mg Documented By: CARMELINA Magnesium Hydroxide (Milk Of Magnesia 30 Ml Oral.Susp) 30 ml PO DAILY PRN PRN Reason: Constipation Magnesium Hydroxide (Milk Of Magnesia 30 Ml Oral.Susp) 30 ml PO BEDTIME PRN PRN Reason: Constipation Melatonin (Melatonin 3 Mg Tablet) 6 mg PO BEDTIME PRN PRN Reason: Insomnia Last Admin: 07/11/25 03:45 Dose: 6 mg Documented By: DOROTHEA Meropenem (Meropenem 1 Gm Vial) 1 gm IVPUSH Q12H [facility] Last Admin: 07/18/25 23:02 Dose: 1 gm Documented By: TARA Methotrexate (Methotrexate Sodium 2.5 Mg Tablet) 15 mg PO MO [facility] Last Admin: 07/18/25 20:27 Dose: Not Given Documented By: TARA Non-Admin Reason: NPO Morphine Sulfate (Morphine Sulfate 2 Mg/Ml Cartridge) 1 mg IVPUSH Q3H PRN; Protocol PRN Reason: Pain, Severe (Pain Scale 7-10) Last Admin: 07/19/25 09:08 Dose: 1 mg Documented By: NOMAN Naloxone HCl (Naloxone Hcl 0.4 Mg/Ml Vial) 0.04 mg IVPUSH Q5M PRN PRN Reason: Excessive sedation or RR < 8 Nystatin (Nystatin Powder 15 Gm Bottle) 1 appl TOPICAL BID [facility]; Protocol Last Admin: 07/19/25 08:06 Dose: 1 appl Documented By: NOMAN Ondansetron HCl (Ondansetron Hcl 4 Mg/2 Ml Vial) 4 mg IVPUSH Q8H PRN PRN Reason: Nausea and Vomiting Last Admin: 07/11/25 21:02 Dose: 4 mg Documented By: WONG Comments: early dose per provider Pantoprazole Sodium (Pantoprazole Sodium 40 Mg/10 Ml Vial) 40 mg IVPUSH Q12H [facility] Pharmacy Consult (Consult Rx Vancomycin Dosing) 1 each MISCELLANE DAILY PRN PRN Reason: Consult order Polyethylene Glycol (Polyethylene Glycol 3350 17 Gm Powd.Pack) 17 gm PO DAILY [facility] Last Admin: 07/18/25 09:23 Dose: Not Given Documented By: NAHUM Non-Admin Reason: NPO Prednisone (Prednisone 2.5 Mg Tablet) 2.5 mg PO DAILY [facility] Last Admin: 07/18/25 09:18 Dose: 2.5 mg Documented By: NAHUM Sodium Biphosphate/Sodium Phosphate (Sodium Phosphate,[place]-Dibasic 133 Ml Enema) 118 ml CA DAILY PRN PRN Reason: Constipation Sodium Chloride (0.9 % Sodium Chloride Flush 3 Ml Syringe) 3 ml IVFLUSH QSHIFT [facility] Last Admin: 07/19/25 08:07 Dose: 3 ml Documented By: NOMAN Sucralfate (Sucralfate Oral Suspension 1 Gm/10 Ml Oral.Susp) 1 gm PO QIDACHS [facility] Last Admin: 07/18/25 20:27 Dose: Not Given Documented By: TARA Non-Admin Reason: NPO Trazodone HCl (Trazodone Hcl 50 Mg Tablet) 50 mg PO BEDTIME [facility] Last Admin: 07/18/25 20:27 Dose: Not Given Documented By: TARA Non-Admin Reason: NPO Vitamin D (Cholecalciferol (Vitamin D3) 25 Mcg Tablet) 25 mcg PO DAILY [facility] Last Admin: 07/18/25 09:22 Dose: Not Given Documented By: NAHUM Non-Admin Reason: NPO Labs 07/19/25 05:54 07/19/25 05:54 Labs: Laboratory Results - last 24 hr 07/18/25 07/18/25 07/18/25 11:31 15:59 20:02 MCV MCH MCHC RDW Plt Count MPV Immature Gran % (Auto) Neut % (Auto) Lymph % (Auto) [place] % (Auto) Eos % (Auto) Baso % (Auto) Lymph # (Auto) [place] # (Auto) Eos # (Auto) Baso # (Auto) Abs Immat Gran (auto) Absolute Neuts (auto) Absolute Nucleated RBC Nucleated RBC % (auto) Neutrophils % (Manual) Band Neutrophils % Lymphocytes % (Manual) Atypical Lymphs % (Man) Monocytes % (Manual) Eosinophils % (Manual) Metamyelocytes % Abs Neuts (Manual) Lymphocytes # (Manual) Atyp Lymphs # (Manual) Monocytes # (Manual) Eosinophils # (Manual) Metamyelocytes # Platelet Estimate Plt Morphology Comment RBC Morphology [place] Cells Hold Purple Top Anion Gap Estim Creat Clear Calc Estimated GFR POC Glucose 108 123 H Random Glucose Calcium Magnesium Random Vancomycin 15.9 07/18/25 07/18/25 07/19/25 20:06 22:37 05:54 MCV 92.9 MCH 31.8 MCHC 34.3 RDW 15.9 Plt Count 92 L MPV 11.2 Immature Gran % (Auto) Cancelled Neut % (Auto) Cancelled Lymph % (Auto) Cancelled [place] % (Auto) Cancelled Eos % (Auto) Cancelled Baso % (Auto) Cancelled Lymph # (Auto) Cancelled [place] # (Auto) Cancelled Eos # (Auto) Cancelled Baso # (Auto) Cancelled Abs Immat Gran (auto) Cancelled Absolute Neuts (auto) Cancelled Absolute Nucleated RBC 0.020 H Nucleated RBC % (auto) 0.3 H Neutrophils % (Manual) 79 H Band Neutrophils % 0 L Lymphocytes % (Manual) 10 L Atypical Lymphs % (Man) 2 Monocytes % (Manual) 4 Eosinophils % (Manual) 4 Metamyelocytes % 1 Abs Neuts (Manual) 5.0 Lymphocytes # (Manual) 0.6 L Atyp Lymphs # (Manual) 0.1 Monocytes # (Manual) 0.3 Eosinophils # (Manual) 0.3 Metamyelocytes # 0.1 Platelet Estimate DECREASED Plt Morphology Comment NORMAL RBC Morphology NOTED [place] Cells 2+ (3-5) Hold Purple Top SEE NOTE Anion Gap 13 Estim Creat Clear Calc 89.0 Estimated GFR > 60 POC Glucose 161 H 152 H Random Glucose 154 H Calcium 7.9 L Magnesium 1.6 Random Vancomycin 07/19/25 07:27 MCV MCH MCHC RDW Plt Count MPV Immature Gran % (Auto) Neut % (Auto) Lymph % (Auto) [place] % (Auto) Eos % (Auto) Baso % (Auto) Lymph # (Auto) [place] # (Auto) Eos # (Auto) Baso # (Auto) Abs Immat Gran (auto) Absolute Neuts (auto) Absolute Nucleated RBC Nucleated RBC % (auto) Neutrophils % (Manual) Band Neutrophils % Lymphocytes % (Manual) Atypical Lymphs % (Man) Monocytes % (Manual) Eosinophils % (Manual) Metamyelocytes % Abs Neuts (Manual) Lymphocytes # (Manual) Atyp Lymphs # (Manual) Monocytes # (Manual) Eosinophils # (Manual) Metamyelocytes # Platelet Estimate Plt Morphology Comment RBC Morphology [place] Cells Hold Purple Top Anion Gap Estim Creat Clear Calc Estimated GFR POC Glucose 140 H Random Glucose Calcium Magnesium Random Vancomycin Microbiology Microbiology Results: Microbiology 07/14/25 16:10 Blood Culture - Preliminary Blood - Venous No growth after 24 hours. 07/14/25 09:51 Blood Culture - Preliminary Blood - Venous No growth after 24 hours. Assessment and Plan (1) Chronic indwelling Carty catheter: Status: Acute (2) Neurogenic bladder: Status: Acute (3) Gram-positive cocci bacteremia: Status: Acute Plan 80-year-old chronically bed bound male, resident of [facility] with pertinent history of bullous pemphigoid, MS, chronic Carty, mood disorder, insulin-dependent type 2 diabetes mellitus, mixed hyperlipidemia, hypertension who was sent to the emergency department for evaluation of altered mentation. ?Brown/red vomit, discharge found on bed pad per nursing Treated with IV PPI GI consult--KUB 07/12--Marked gaseous distention of the stomach. Findings could represent gastric outlet obstruction. CT 07/12--1. Wall thickening of the distal large intestine including rectum is nonspecific. Differential considerations include colitis and proctitis. Other bowel wall pathology not excluded by CT. 2. No small bowel obstruction. 3. Small bilateral pleural effusions with underlying atelectasis and/or consolidation of the imaged lung bases, left worse than right. Differential considerations include pneumonia. Please consider attention on follow-up to ensure resolution. CT 07/15:2. Marked distention of the stomach with gas and fluid. There is fluid distention of the duodenum which narrows as it crosses the spine. Duodenal obstruction is not excluded. Had NGT for decompression EGD 08/[address] Mendez Esophagitis with bleeding esophageal defect at 25 cm suspicious for NG tube trauma (endoclip, hemospray) Gastritis Normal duodenum (endoclip) CT post EGD no esophageal perforation, NPO and repeat CT today unchaqnged, no evidence of perforation IV PPI, GI updated will return to the OR. If becomes unstable will need to go to ICU, discussed with ICU Sepsis d/t UTI asssociated with chronic carty cath, and staph aureus bacteremia, likely from Bullous pemphigoid Urine culture pending, h/o ESBL BCx --MRSA, last culture negative at 24 hrs -continue Meropenem for UTI if negative culture then dc -continue Vanco for GPC bacteremia, monnitor level and Creatine -Blood culture 07/14 negative at 48 -Echocardiogram no vegetations -ID consult recommends Vanco probably for 4 weeks -WBC has normalized Acute metabolic encephalopathy d/t above resolved Replacement of Carty catheter: Urology replaced, US guided, difficult placement Acute kidney injury stage I: 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 1.6 --> 0.97, resolved Anemia of chronic disease: Hemoglobin above transfusion threshold Bullous pemphigoid: Continue methotrexate, prednisone mixed hyperlipidemia Statin Hypertension Coreg and Amlodinpine, hold if BP low Insulin-dependent type 2 diabetes mellitus: Sliding scale insulin NPO, ADA diet when eating DVT prophylaxis: Lovenox Full code. Discussed with patient and over the phone Quality Stroke Does the patient have a stroke diagnosis?: No VTE Prior VTE?: No VTE Risk Level:: Medical - moderate - high VTE Device Contraindication: Treatment Not Indicated VTE Drug Contraindication: N/A - Med Ordered
[2025-07-19 10:26] LABS: Hematocrit 26.7 % (42.0-52.0); Hemoglobin 9.3 g/dl (14.0-18.0); Mean Corpuscular HGB Conc 34.8 g/dl (31.0-36.0); Mean Corpuscular Hemoglobin 32.4 pg (27.0-33.0); Mean Corpuscular Volume 93.0 fL (80.0-98.0); NRBC Abs Auto 0.000 X10*3/uL (0.0-0.012); NRBC Pct Auto 0.0 /100WBC (0.0-0.2); Platelet Count 83 X10*3/uL (160-400); Red Blood Count 2.87 X10*6/uL (4.60-5.80); White Blood Count 5.7 X10*3/uL (4.8-10.8)
--- NOTE | 2025-07-19 10:43 | P.PNGI_ITS ---
Subjective Subjective Date of Service: 07/19/25 Interval History: Patient seen and evaluated bedside. Started spitting up bright blood red earlier this morning. Also reports increased chest soreness. Vital signs stable. Critical Care Time (minutes): 0 Physical Exam 2 Exam: Exam: Frail elderly Gent not tachypneic, able to speak in full sentences oriented x2, requires one-to-one assistance with moving as per baseline Vital Signs: Vital Signs: Last Vital Signs Temp 96.1 F L 07/19/25 10:22 Pulse 91 07/19/25 10:22 Resp 20 07/19/25 10:22 BP 179/78 H 07/19/25 10:22 Pulse Ox 97 07/19/25 10:22 O2 Del Method Room Air 07/19/25 10:22 O2 Flow Rate 2 07/12/25 08:37 BMI result Body Mass Index 25.1 Objective Data Labs 07/19/25 10:12 07/19/25 05:54 Labs: Laboratory Results - last 24 hr 07/18/25 07/18/25 07/18/25 11:31 15:59 20:02 WBC RBC Hgb Hct MCV MCH MCHC RDW Plt Count MPV Immature Gran % (Auto) Neut % (Auto) Lymph % (Auto) [place] % (Auto) Eos % (Auto) Baso % (Auto) Lymph # (Auto) [place] # (Auto) Eos # (Auto) Baso # (Auto) Abs Immat Gran (auto) Absolute Neuts (auto) Absolute Nucleated RBC Nucleated RBC % (auto) Neutrophils % (Manual) Band Neutrophils % Lymphocytes % (Manual) Atypical Lymphs % (Man) Monocytes % (Manual) Eosinophils % (Manual) Metamyelocytes % Abs Neuts (Manual) Lymphocytes # (Manual) Atyp Lymphs # (Manual) Monocytes # (Manual) Eosinophils # (Manual) Metamyelocytes # Platelet Estimate Plt Morphology Comment RBC Morphology [place] Cells Hold Purple Top Sodium Potassium Chloride Carbon Dioxide Anion Gap BUN Creatinine Estim Creat Clear Calc Estimated GFR POC Glucose 108 123 H Random Glucose Calcium Magnesium Random Vancomycin 15.9 Blood Type Crossmatch 07/18/25 07/18/25 07/19/25 20:06 22:37 05:54 WBC 6.3 RBC 2.67 L Hgb 8.5 L Hct 24.8 L MCV 92.9 MCH 31.8 MCHC 34.3 RDW 15.9 Plt Count 92 L MPV 11.2 Immature Gran % (Auto) Cancelled Neut % (Auto) Cancelled Lymph % (Auto) Cancelled [place] % (Auto) Cancelled Eos % (Auto) Cancelled Baso % (Auto) Cancelled Lymph # (Auto) Cancelled [place] # (Auto) Cancelled Eos # (Auto) Cancelled Baso # (Auto) Cancelled Abs Immat Gran (auto) Cancelled Absolute Neuts (auto) Cancelled Absolute Nucleated RBC 0.020 H Nucleated RBC % (auto) 0.3 H Neutrophils % (Manual) 79 H Band Neutrophils % 0 L Lymphocytes % (Manual) 10 L Atypical Lymphs % (Man) 2 Monocytes % (Manual) 4 Eosinophils % (Manual) 4 Metamyelocytes % 1 Abs Neuts (Manual) 5.0 Lymphocytes # (Manual) 0.6 L Atyp Lymphs # (Manual) 0.1 Monocytes # (Manual) 0.3 Eosinophils # (Manual) 0.3 Metamyelocytes # 0.1 Platelet Estimate DECREASED Plt Morphology Comment NORMAL RBC Morphology NOTED [place] Cells 2+ (3-5) Hold Purple Top SEE NOTE Sodium 145 Potassium 2.6 L* Chloride 110 H Carbon Dioxide 25 Anion Gap 13 BUN 16 Creatinine 0.75 Estim Creat Clear Calc 89.0 Estimated GFR > 60 POC Glucose 161 H 152 H Random Glucose 154 H Calcium 7.9 L Magnesium 1.6 Random Vancomycin Blood Type Crossmatch 07/19/25 07/19/25 07:27 10:12 WBC 5.7 RBC 2.87 L Hgb 9.3 L Hct 26.7 L MCV 93.0 MCH 32.4 MCHC 34.8 RDW 15.8 Plt Count 83 L MPV 10.1 Immature Gran % (Auto) Neut % (Auto) Lymph % (Auto) [place] % (Auto) Eos % (Auto) Baso % (Auto) Lymph # (Auto) [place] # (Auto) Eos # (Auto) Baso # (Auto) Abs Immat Gran (auto) Absolute Neuts (auto) Absolute Nucleated RBC 0.000 Nucleated RBC % (auto) 0.0 Neutrophils % (Manual) Band Neutrophils % Lymphocytes % (Manual) Atypical Lymphs % (Man) Monocytes % (Manual) Eosinophils % (Manual) Metamyelocytes % Abs Neuts (Manual) Lymphocytes # (Manual) Atyp Lymphs # (Manual) Monocytes # (Manual) Eosinophils # (Manual) Metamyelocytes # Platelet Estimate Plt Morphology Comment RBC Morphology [place] Cells Hold Purple Top Sodium Potassium Chloride Carbon Dioxide Anion Gap BUN Creatinine Estim Creat Clear Calc Estimated GFR POC Glucose 140 H Random Glucose Calcium Magnesium Random Vancomycin Blood Type B Positive Crossmatch See Detail Microbiology Microbiology Results: Microbiology 07/14/25 16:10 Blood - Venous Blood Culture - Preliminary No growth after 48 hours. 07/14/25 09:51 Blood - Venous Blood Culture - Preliminary No growth after 48 hours. 07/10/25 20:01 Blood - Venous Blood Culture - Final Methicillin Res Staph Aureus 07/10/25 20:00 Blood - Venous Blood Culture - Final Staphylococcus aureus Methicillin Res Staph Aureus Procedures Date of Service Date of Service: 07/19/25 Progress Note: A&P Assessment and plan (1) Upper GI bleed: Status: Acute Plan Has BRB emesis. Hemodynamically stable. This is likely secondary to esophageal tear that he sustained during removal of NG tube yesterday before the endoscopy. Endoclip was applied yest during the EGD but clearly has inadequate hemostasis. CT chest from 07/18 and 07/19 personally reviewed, no leak. Urgent EGD will be arranged. Plan: - Strict NPO - Type and screen with 1u PRBC hanging - Switch to protonix drip - Urgent EGD to follow - will likely need intubation for airway protection Time Spent With Patient Time: Total time managing care of this patient today ____ minutes. Quality Stroke Does the patient have a stroke diagnosis?: No VTE Prior VTE?: No VTE Risk Level:: Medical - moderate - high VTE Device Contraindication: Treatment Not Indicated VTE Drug Contraindication: N/A - Med Ordered
--- NOTE | 2025-07-19 11:24 | MHC.CLN ---
PT TO START PPN PER MD CURRENTLY NPO REVIEWED LABS DISCUSSED WITH PHARMACY RECOMMEND TO START PPN AT 60ML/HR TO PROVIDE 734KCALS, 144G DEXTROSE, 61G PROTEIN REPLETE LYTES NEEDED PT MAY BE AT RISK FOR [id number] MG, PHOS AND K+ CLOSELY SEE FULL ASSESSMENT
[2025-07-19] MEDS: Lactated Ringers 1,000 ML 80 ML IVCONT (11:35)
[2025-07-19] MEDS: Pantoprazole Sodium 80 MG in 0.9 % Sodium Chloride 80 ML 10 MG IV (11:47)
[2025-07-19 11:52] LABS: Glucose, Whole Blood 140 mg/dL (60-115)
--- NOTE | 2025-07-19 12:04 | P.CONAN_ITS ---
[facility] Active Problems Active Problems: All Active Problems (Updated 07/19/25 @ 10:44 by Maine Mendez MD) Upper GI bleed (Acute) Duodenal obstruction (Acute) MRSA bacteremia (Acute) Proctitis (Acute) Coffee ground emesis (Acute) Obstipation (Acute) Sepsis (Acute) Gram-positive cocci bacteremia (Acute) Acute UTI (urinary tract infection) (Acute) Steroid dependence (Acute) Multiple sclerosis (Acute) Obstructive uropathy (Acute) Chronic indwelling Nunez catheter (Acute) Neurogenic bladder (Acute) Decubitus ulcer of coccygeal region, stage 2 (Acute) Acute metabolic encephalopathy (Acute) Past Medical History Medical History Steroid dependence EDWARD (acute kidney injury) UTI (urinary tract infection) due to urinary indwelling Nunez catheter Bullous pemphigoid Decubitus ulcer of coccygeal region, stage 2 Acute hypotension Sepsis Aspiration pneumonitis Recurrent UTI (urinary tract infection) Hypotonic neurogenic bladder Lytic lesion of bone on x-ray Wound of foot Anemia Septic shock Shoulder pain Constipation Hematuria Multiple sclerosis Depression Diabetes mellitus type 2 in obese Chronic pain syndrome BPH (benign prostatic hyperplasia) Dehydration Chronic renal failure Urinary tract infection Functional capacity: bed bound Family History Family History Family/Other Heart attack Father Diabetes Family history of problems with anesthesia: No Surgical History Surgical History Hx of removal of cyst History of Problems with Anesthesia: No Social History Social History Household Members: Unknown / Unable to assess Household Members Other:: lives at [facility] in [place] Housing: Residential Housing Other:: [facility] Unable to assess alcohol history related to: Unable to respond Alcohol intake: never Comment: BEDFAST Patient Tobacco Use Status: Former Tobacco user Cigarette Packs Per Day: 1 Advance Directives Date on File: 10/13/20 service: Yes Current occupational status: retired Meds Allergies Allergy/AdvReac Type Severity Reaction Status Date / Time Benzodiazepines Allergy Unknown UNKNOWN Verified 07/10/25 16:36 (BENZODIAZEPINES) dalfampridine (From AMPYRA) Allergy Unknown UNKNOWN Verified 07/10/25 16:36 duloxetine (From CYMBALTA) Allergy Unknown UNKNOWN Verified 07/10/25 16:36 ezetimibe (From ZETIA) Allergy Unknown UNKNOWN Verified 07/10/25 16:36 niacin (NIACIN) Allergy Unknown UNKNOWN Verified 07/10/25 16:36 pravastatin (PRAVASTATIN) Allergy Unknown UNKNOWN Verified 07/10/25 16:36 [id number] Reductase Allergy Unknown UNKNOWN Verified 07/10/25 16:36 Inhibitor ([id number] REDUCTASE INHIBITOR) lorazepam (From ATIVAN) AdvReac Severe EXCESSIVE Verified 07/10/25 16:36 SEDATION doxycycline (DOXYCYCLINE) AdvReac Mild esophogeal Verified 07/10/25 16:36 iritation methylprednisolone (From AdvReac Mild heartburn Verified 07/10/25 16:36 SOLU-MEDROL) ertapenem (From INVANZ) AdvReac Unknown possible Verified 07/10/25 16:36 cause of bullous pemphigoid Active Medications: Current Medications Acetaminophen (Acetaminophen 325 Mg Tablet) 650 mg PO Q6H PRN PRN Reason: Pain, Mild 1-3,fever,headache Last Admin: 07/17/25 15:42 Dose: 650 mg Acetaminophen (Acetaminophen 325 Mg Tablet) 650 mg PO BEDTIME [facility] Last Admin: 07/18/25 20:28 Dose: Not Given Amlodipine Besylate (Amlodipine Besylate 10 Mg Tablet) 10 mg PO DAILY [facility]; Protocol Last Admin: 07/19/25 10:15 Dose: Not Given Ascorbic Acid (Ascorbic Acid 500 Mg Tablet) 500 mg PO DAILY [facility] Last Admin: 07/19/25 10:15 Dose: Not Given Atorvastatin Calcium (Atorvastatin Calcium 10 Mg Tablet) 10 mg PO DAILY [facility] Last Admin: 07/19/25 10:16 Dose: Not Given Bacitracin (Bacitracin Oint 14 Gm Tube) 1 appl TOPICAL BID [facility]; Protocol Last Admin: 07/19/25 08:06 Dose: 1 appl Benzocaine (Throat Lozenge, Medicated Lozenge) 1 lozenge MUCOUS MEM Q2H PRN PRN Reason: Sore Throat Last Admin: 07/18/25 05:30 Dose: 1 lozenge Bisacodyl (Bisacodyl 5 Mg Tablet.Dr) 5 mg PO DAILY PRN PRN Reason: Constipation Bisacodyl (Bisacodyl 10 Mg Supp.Rect) 10 mg MO DAILY PRN PRN Reason: Constipation Bisacodyl (Bisacodyl 10 Mg Supp.Rect) 10 mg MO Q3D [facility] Last Admin: 07/18/25 09:30 Dose: 10 mg Bismuth Subsalicylate (Bismuth Subsalicylate Liquid 524 Mg/30 Ml Oral.Susp) 524 mg PO Q8H PRN PRN Reason: UPSET STOMACH/NAUSEA Calcium Carbonate (Calcium Carbonate 750 Mg Tab.Chew) 750 mg PO Q4H PRN PRN Reason: Heartburn Last Admin: 07/12/25 03:39 Dose: 750 mg Carvedilol (Carvedilol 6.25 Mg Tablet) 6.25 mg PO BID [facility]; Protocol Last Admin: 07/19/25 10:16 Dose: Not Given Dextrose (Dextrose 50 % 25 Gm/50 Ml Syringe) 25 gm IVPUSH Q15M PRN; Protocol PRN Reason: per Hypoglycemia Standing Ord. Last Admin: 07/17/25 07:49 Dose: 25 gm Docusate Sodium (Docusate Sodium 100 Mg Capsule) 200 mg PO BID [facility] Last Admin: 07/19/25 10:16 Dose: Not Given Ferrous Sulfate (Ferrous Sulfate 324 Mg Tablet.Dr) 324 mg PO DAILY [facility] Last Admin: 07/19/25 10:18 Dose: Not Given Folic Acid (Folic Acid 1 Mg Tablet) 1 mg PO SUTUWETHFRSA [facility] Last Admin: 07/17/25 17:37 Dose: 1 mg Gabapentin (Gabapentin 300 Mg Capsule) 300 mg PO TID [facility] Last Admin: 07/19/25 10:18 Dose: Not Given Glucose (Glucose Gel 15 Gm Gel..Gram.) 15 gm PO Q15M PRN; Protocol PRN Reason: per Hypoglycemia Standing Ord. Guaifenesin (Guaifenesin 200 Mg/10 Ml 10 Ml Liquid) 10 ml PO Q4H PRN PRN Reason: Cough Last Admin: 07/15/25 02:42 Dose: 10 ml Guaifenesin (Guaifenesin La 600 Mg Tab.Er.12h) 600 mg PO Q12H PRN PRN Reason: Cold Symptoms Vancomycin HCl 750 mg/ Sodium (Chloride) 265 mls @ 265 mls/hr IV Q24H [facility] Last Infusion: 07/19/25 00:35 Dose: Infused Potassium Chloride (Potassium Chloride/H20) 10 meq in 100 mls @ 100 mls/hr IV Q1H [facility] Stop: 07/19/25 12:44 Pantoprazole Sodium 80 mg/ (Sodium Chloride) 100 mls @ 10 mls/hr IV .Q10H [facility] Last Admin: 07/19/25 11:47 Dose: 8 mg/hr, 10 mls/hr Lactated Ringer's (Lr) 1,000 mls @ 80 mls/hr IVCONT .[id number] [facility] Last Admin: 07/19/25 11:35 Dose: 80 mls/hr Insulin Human Lispro (Insulin Lispro 100 Unit/Ml 3 Ml Vial) 0 unit SUBCUT QIDACHS [facility]; Protocol Last Admin: 07/19/25 07:57 Dose: Not Given Lactulose (Lactulose 20 Gm/30 Ml Solution) 20 gm PO DAILY [facility] Last Admin: 07/19/25 10:17 Dose: Not Given Lidocaine HCl (Lidocaine Hcl Viscous 2 % 15 Ml Solution) 15 ml MUCOUS MEM Q3H PRN PRN Reason: Dyspepsia Last Admin: 07/18/25 03:27 Dose: 15 ml Loperamide HCl (Loperamide Hcl 2 Mg Capsule) 2 mg PO Q4H PRN PRN Reason: Diarrhea Last Admin: 07/13/25 22:35 Dose: 2 mg Magnesium Hydroxide (Milk Of Magnesia 30 Ml Oral.Susp) 30 ml PO DAILY PRN PRN Reason: Constipation Magnesium Hydroxide (Milk Of Magnesia 30 Ml Oral.Susp) 30 ml PO BEDTIME PRN PRN Reason: Constipation Melatonin (Melatonin 3 Mg Tablet) 6 mg PO BEDTIME PRN PRN Reason: Insomnia Last Admin: 07/11/25 03:45 Dose: 6 mg Meropenem (Meropenem 1 Gm Vial) 1 gm IVPUSH Q12H [facility] Last Admin: 07/19/25 10:44 Dose: 1 gm Methotrexate (Methotrexate Sodium 2.5 Mg Tablet) 15 mg PO MO [facility] Last Admin: 07/18/25 20:27 Dose: Not Given Morphine Sulfate (Morphine Sulfate 2 Mg/Ml Cartridge) 1 mg IVPUSH Q3H PRN; Protocol PRN Reason: Pain, Severe (Pain Scale 7-10) Last Admin: 07/19/25 09:08 Dose: 1 mg Naloxone HCl (Naloxone Hcl 0.4 Mg/Ml Vial) 0.04 mg IVPUSH Q5M PRN PRN Reason: Excessive sedation or RR < 8 Nystatin (Nystatin Powder 15 Gm Bottle) 1 appl TOPICAL BID [facility]; Protocol Last Admin: 07/19/25 08:06 Dose: 1 appl Ondansetron HCl (Ondansetron Hcl 4 Mg/2 Ml Vial) 4 mg IVPUSH Q8H PRN PRN Reason: Nausea and Vomiting Last Admin: 07/11/25 21:02 Dose: 4 mg Pharmacy Consult (Consult Rx Vancomycin Dosing) 1 each MISCELLANE DAILY PRN PRN Reason: Consult order Polyethylene Glycol (Polyethylene Glycol 3350 17 Gm Powd.Pack) 17 gm PO DAILY [facility] Last Admin: 07/19/25 10:20 Dose: Not Given Prednisone (Prednisone 2.5 Mg Tablet) 2.5 mg PO DAILY [facility] Last Admin: 07/19/25 10:20 Dose: Not Given Sodium Biphosphate/Sodium Phosphate (Sodium Phosphate,[place]-Dibasic 133 Ml Enema) 118 ml MO DAILY PRN PRN Reason: Constipation Sodium Chloride (0.9 % Sodium Chloride Flush 3 Ml Syringe) 3 ml IVFLUSH QSHIFT [facility] Last Admin: 07/19/25 08:07 Dose: 3 ml Sucralfate (Sucralfate Oral Suspension 1 Gm/10 Ml Oral.Susp) 1 gm PO QIDACHS [facility] Last Admin: 07/19/25 10:14 Dose: Not Given Trazodone HCl (Trazodone Hcl 50 Mg Tablet) 50 mg PO BEDTIME [facility] Last Admin: 07/18/25 20:27 Dose: Not Given Vitamin D (Cholecalciferol (Vitamin D3) 25 Mcg Tablet) 25 mcg PO DAILY [facility] Last Admin: 07/19/25 10:16 Dose: Not Given Home Medications ?Medication ?Instructions ?Recorded ?Confirmed ?Last Taken ?Type tramadol 50 mg tablet 50 mg PO BEDTIME PRN moderat e to 10/09/20 07/11/25 Unknown History severe pain acetaminophen 325 mg tablet 650 mg PO Q4H PRN pain or fever 03/13/21 07/11/25 Unknown History rosuvastatin 10 mg tablet 10 mg PO DAILY 03/13/2107/01 Unknown History Held on 06/11/24. Instructions: Resume on 06/14/24. guaifenesin 100 mg/5 mL oral 200 mg PO Q4H PRN Cough 0 05/19/21 07/11/25 Unknown History liquid (Diabetic Tussin EX) prednisone 2.5 mg tablet 2.5 mg PO DAILY 05/19/2110/25 Unknown History amlodipine 10 mg tablet 10 mg PO DAILY 11/16/2307/01 Unknown History bismuth subsalicylate 262 mg/15 mL 524 mg PO Q8H PRN U PSET 11/16/23 07/11/25 Unknown History oral suspension (Pepto-Bismol) STOMACH/NAUSEA ceramides 1,3,6-II (CeraVe topical 1 appl topical BID Dry Skin 11/16/23 07/11/25 Unknown History cream) docusate sodium 100 mg capsule 200 mg PO BID 11/16/23 07/11/25 Unknown History (Colace) famotidine 20 mg tablet 20 mg PO DAILY 11/16/2307/01 Unknown History folic acid 1 mg tablet 1 mg PO SUTUWETHFRSA 3 07/11/25 Unknown History insulin glargine-yfgn 100 unit/mL 3 unit subcut BEDTIM E 11/16/23 07/11/25 Unknown History subcutaneous solution lactulose 10 gram/15 mL oral 30 ml PO DAILY 11/16/23 0 07/11/25 Unknown History solution (Enulose) melatonin 5 mg tablet 5 mg PO BEDTIME PRN Insomnia 11/16/23 07/11/25 Unknown History polyethylene glycol 3350 17 17 g PO DAILY 11/16/2310/25 Unknown History gram/dose oral powder (Miralax) methotrexate sodium 2.5 mg tablet 15 mg PO MO 02/25/24 07/11/25 Unknown History bisacodyl 5 mg tablet 5 mg PO DAILY PRN Constipati on 03/31/24 07/11/25 Unknown History aspirin 81 mg tablet,delayed 81 mg PO DAILY 04/23/24 0 07/11/25 Unknown History release bisacodyl 10 mg rectal suppository 10 mg MO DAILY PRN Constipation 04/23/24 07/11/25 Unknown History bisacodyl 10 mg rectal suppository 10 mg MO Q3D 07/11/25 Unknown History guaifenesin 600 mg tablet, 600 mg PO Q12H PRN Cold Sym ptoms 04/23/24 07/11/25 Unknown History extended release 12 hr (Mucinex) sodium phosphates 19 gram-7 118 ml MO DAILY PRN Consti pation 04/23/24 07/11/25 Unknown History gram/118 mL enema (Fleet Enema) acetaminophen 325 mg tablet 650 mg PO BEDTIME 07/11/25 07/11/25 Unknown History ascorbic acid (vitamin C) 500 mg 500 mg PO DAILY 07/1107/11/25 Unknown History tablet (Vitamin C) bacitracin 500 unit/gram topical 1 appl topical BID 07/11/25 Unknown History ointment cholecalciferol (vitamin D3) 25 25 mcg PO DAILY 07/11/25 Unknown History mcg (1,000 unit) tablet (Vitamin D3) ferrous sulfate 325 mg (65 mg 325 mg PO DAILY 07/11/25 07/11/25 Unknown History iron) tablet insulin lispro 100 unit/mL See Protocol subcut BID 10/2507/11/25 Unknown History subcutaneous solution (Admelog U-100 Insulin lispro) magnesium hydroxide 400 mg/5 mL 30 ml PO BEDTIME PRN C onstipation 07/11/25 07/11/25 Unknown History oral suspension (Milk of Magnesia) trazodone 50 mg tablet 50 mg PO BEDTIME 07/11/25 Unknown History Exam Height,Weight and Vital Signs: Height 6 ft Weight 83.8 kg Last Vital Signs Temp 97.2 F 07/19/25 11:28 Pulse 97 07/19/25 11:28 Resp 18 07/19/25 11:28 BP 182/76 H 07/19/25 11:28 Pulse Ox 97 07/19/25 11:28 O2 Del Method Room Air 07/19/25 11:28 O2 Flow Rate 2 07/12/25 08:37 Pertinent Lab Results Pertinent Lab Results: Laboratory Tests 07/10/25 07/10/25 07/10/25 16:21 16:37 20:00 WBC 26.2 H RBC 3.56 L D Hgb 11.7 L D Hct 33.8 L D MCV 94.9 MCH 32.9 MCHC 34.6 RDW 16.0 Plt Count 130 L D MPV 9.0 L Immature Gran % (Auto) Cancelled Neut % (Auto) Cancelled Lymph % (Auto) Cancelled [place] % (Auto) Cancelled Eos % (Auto) Cancelled Baso % (Auto) Cancelled Lymph # (Auto) Cancelled [place] # (Auto) Cancelled Eos # (Auto) Cancelled Baso # (Auto) Cancelled Abs Immat Gran (auto) Cancelled Absolute Neuts (auto) Cancelled Absolute Nucleated RBC 0.020 H Nucleated RBC % (auto) 0.1 Neutrophils % (Manual) 93 H Band Neutrophils % 3 Lymphocytes % (Manual) 1 L Atypical Lymphs % (Man) Monocytes % (Manual) 1 L Eosinophils % (Manual) Basophils % (Manual) 1 Metamyelocytes % 1 Abs Neuts (Manual) 25.2 H Lymphocytes # (Manual) 0.3 L Atyp Lymphs # (Manual) Monocytes # (Manual) 0.3 Eosinophils # (Manual) Basophils # (Manual) 0.3 H Metamyelocytes # 0.3 Toxic Vacuolation PRESENT Platelet Estimate SLIGHTLY DECREASED Plt Morphology Comment NORMAL RBC Morphology NORMAL Macrocytosis [place] Cells Schistocytes Smear Path Review Hold Purple Top PT 11.2 INR 1.0 Sodium 135 Potassium 4.2 Chloride 102 Carbon Dioxide 20 L Anion Gap 17 BUN 29 H Creatinine 1.68 H Estim Creat Clear Calc 39.7 Estimated GFR 40 POC Glucose Random Glucose 101 Lactic Acid 2.6 H* Lactic Acid F/U @ 2Hr Calcium 8.3 L Magnesium 1.8 Total Bilirubin 1.0 AST 33 ALT 17 Alkaline Phosphatase 66 Troponin I High Sens 13.5 Total Protein 6.1 L Albumin 3.1 L Vancomycin Trough Random Vancomycin C. difficile Tox B Gene Influenza Type A (PCR) NEGATIVE Influenza Type B (PCR) NEGATIVE RSV RNA Qual (PCR) NEGATIVE SARS-CoV-2 RNA (RT-PCR) NEGATIVE Blood Type Antibody Screen Crossmatch 07/10/25 07/11/25 07/11/25 22:10 01:56 05:23 WBC 37.6 H* RBC 3.26 L Hgb 10.9 L Hct 31.6 L MCV 96.9 MCH 33.4 H MCHC 34.5 RDW 16.6 H Plt Count 111 L MPV 9.2 L Immature Gran % (Auto) Cancelled Neut % (Auto) Cancelled Lymph % (Auto) Cancelled [place] % (Auto) Cancelled Eos % (Auto) Cancelled Baso % (Auto) Cancelled Lymph # (Auto) Cancelled [place] # (Auto) Cancelled Eos # (Auto) Cancelled Baso # (Auto) Cancelled Abs Immat Gran (auto) Cancelled Absolute Neuts (auto) Cancelled Absolute Nucleated RBC 0.000 Nucleated RBC % (auto) 0.0 Neutrophils % (Manual) 87 H Band Neutrophils % 7 H Lymphocytes % (Manual) 1 L Atypical Lymphs % (Man) Monocytes % (Manual) 5 Eosinophils % (Manual) Basophils % (Manual) Metamyelocytes % Abs Neuts (Manual) 35.3 H Lymphocytes # (Manual) 0.4 L Atyp Lymphs # (Manual) Monocytes # (Manual) 1.9 H Eosinophils # (Manual) Basophils # (Manual) Metamyelocytes # Toxic Vacuolation PRESENT Platelet Estimate SLIGHTLY DECREASED Plt Morphology Comment NORMAL RBC Morphology NORMAL Macrocytosis [place] Cells Schistocytes Smear Path Review SEE NOTE Hold Purple Top PT INR Sodium 138 Potassium 4.2 Chloride 106 Carbon Dioxide 19 L Anion Gap 17 BUN 29 H Creatinine 1.60 H Estim Creat Clear Calc 41.7 Estimated GFR 42 POC Glucose 127 H Random Glucose 151 H Lactic Acid Lactic Acid F/U @ 2Hr 2.0 Calcium 8.1 L Magnesium Total Bilirubin AST ALT Alkaline Phosphatase Troponin I High Sens Total Protein Albumin Vancomycin Trough Random Vancomycin C. difficile Tox B Gene Influenza Type A (PCR) Influenza Type B (PCR) RSV RNA Qual (PCR) SARS-CoV-2 RNA (RT-PCR) Blood Type Antibody Screen Crossmatch 07/11/25 07/11/25 07/11/25 06:33 07:21 12:35 WBC RBC Hgb Hct MCV MCH MCHC RDW Plt Count MPV Immature Gran % (Auto) Neut % (Auto) Lymph % (Auto) [place] % (Auto) Eos % (Auto) Baso % (Auto) Lymph # (Auto) [place] # (Auto) Eos # (Auto) Baso # (Auto) Abs Immat Gran (auto) Absolute Neuts (auto) Absolute Nucleated RBC Nucleated RBC % (auto) Neutrophils % (Manual) Band Neutrophils % Lymphocytes % (Manual) Atypical Lymphs % (Man) Monocytes % (Manual) Eosinophils % (Manual) Basophils % (Manual) Metamyelocytes % Abs Neuts (Manual) Lymphocytes # (Manual) Atyp Lymphs # (Manual) Monocytes # (Manual) Eosinophils # (Manual) Basophils # (Manual) Metamyelocytes # Toxic Vacuolation Platelet Estimate Plt Morphology Comment RBC Morphology Macrocytosis [place] Cells Schistocytes Smear Path Review Hold Purple Top PT INR Sodium Potassium Chloride Carbon Dioxide Anion Gap BUN Creatinine Estim Creat Clear Calc Estimated GFR POC Glucose 155 H 147 H Random Glucose Lactic Acid Lactic Acid F/U @ 2Hr Calcium Magnesium Total Bilirubin AST ALT Alkaline Phosphatase Troponin I High Sens 15.1 Total Protein Albumin Vancomycin Trough Random Vancomycin C. difficile Tox B Gene Influenza Type A (PCR) Influenza Type B (PCR) RSV RNA Qual (PCR) SARS-CoV-2 RNA (RT-PCR) Blood Type Antibody Screen Crossmatch 07/11/25 07/11/25 07/11/25 13:58 16:13 20:08 WBC RBC Hgb Hct MCV MCH MCHC RDW Plt Count MPV Immature Gran % (Auto) Neut % (Auto) Lymph % (Auto) [place] % (Auto) Eos % (Auto) Baso % (Auto) Lymph # (Auto) [place] # (Auto) Eos # (Auto) Baso # (Auto) Abs Immat Gran (auto) Absolute Neuts (auto) Absolute Nucleated RBC Nucleated RBC % (auto) Neutrophils % (Manual) Band Neutrophils % Lymphocytes % (Manual) Atypical Lymphs % (Man) Monocytes % (Manual) Eosinophils % (Manual) Basophils % (Manual) Metamyelocytes % Abs Neuts (Manual) Lymphocytes # (Manual) Atyp Lymphs # (Manual) Monocytes # (Manual) Eosinophils # (Manual) Basophils # (Manual) Metamyelocytes # Toxic Vacuolation Platelet Estimate Plt Morphology Comment RBC Morphology Macrocytosis [place] Cells Schistocytes Smear Path Review Hold Purple Top PT INR Sodium Potassium Chloride Carbon Dioxide Anion Gap BUN Creatinine Estim Creat Clear Calc Estimated GFR POC Glucose 145 H 140 H 134 H Random Glucose Lactic Acid Lactic Acid F/U @ 2Hr Calcium Magnesium Total Bilirubin AST ALT Alkaline Phosphatase Troponin I High Sens Total Protein Albumin Vancomycin Trough Random Vancomycin C. difficile Tox B Gene Influenza Type A (PCR) Influenza Type B (PCR) RSV RNA Qual (PCR) SARS-CoV-2 RNA (RT-PCR) Blood Type Antibody Screen Crossmatch 07/12/25 07/12/25 07/12/25 07:28 09:13 09:13 WBC Cancelled 23.8 H RBC Cancelled Hgb Hct MCV MCH MCHC RDW Plt Count MPV Immature Gran % (Auto) Neut % (Auto) Lymph % (Auto) [place] % (Auto) Eos % (Auto) Baso % (Auto) Lymph # (Auto) [place] # (Auto) Eos # (Auto) Baso # (Auto) Abs Immat Gran (auto) Absolute Neuts (auto) Absolute Nucleated RBC Nucleated RBC % (auto) Neutrophils % (Manual) Band Neutrophils % Lymphocytes % (Manual) Atypical Lymphs % (Man) Monocytes % (Manual) Eosinophils % (Manual) Basophils % (Manual) Metamyelocytes % Abs Neuts (Manual) Lymphocytes # (Manual) Atyp Lymphs # (Manual) Monocytes # (Manual) Eosinophils # (Manual) Basophils # (Manual) Metamyelocytes # Toxic Vacuolation Platelet Estimate Plt Morphology Comment RBC Morphology Macrocytosis [place] Cells Schistocytes Smear Path Review Hold Purple Top PT INR Sodium Potassium Chloride Carbon Dioxide Anion Gap BUN Creatinine Estim Creat Clear Calc Estimated GFR POC Glucose 130 H Random Glucose Lactic Acid Lactic Acid F/U @ 2Hr Calcium Magnesium Total Bilirubin AST ALT Alkaline Phosphatase Troponin I High Sens Total Protein Albumin Vancomycin Trough Random Vancomycin C. difficile Tox B Gene Influenza Type A (PCR) Influenza Type B (PCR) RSV RNA Qual (PCR) SARS-CoV-2 RNA (RT-PCR) Blood Type Antibody Screen Crossmatch 07/12/25 07/12/25 07/12/25 09:13 09:13 09:13 WBC RBC 3.11 L Hgb Cancelled 10.2 L Hct Cancelled 30.0 L MCV Cancelled MCH MCHC RDW Plt Count MPV Immature Gran % (Auto) Neut % (Auto) Lymph % (Auto) [place] % (Auto) Eos % (Auto) Baso % (Auto) Lymph # (Auto) [place] # (Auto) Eos # (Auto) Baso # (Auto) Abs Immat Gran (auto) Absolute Neuts (auto) Absolute Nucleated RBC Nucleated RBC % (auto) Neutrophils % (Manual) Band Neutrophils % Lymphocytes % (Manual) Atypical Lymphs % (Man) Monocytes % (Manual) Eosinophils % (Manual) Basophils % (Manual) Metamyelocytes % Abs Neuts (Manual) Lymphocytes # (Manual) Atyp Lymphs # (Manual) Monocytes # (Manual) Eosinophils # (Manual) Basophils # (Manual) Metamyelocytes # Toxic Vacuolation Platelet Estimate Plt Morphology Comment RBC Morphology Macrocytosis [place] Cells Schistocytes Smear Path Review Hold Purple Top PT INR Sodium Potassium Chloride Carbon Dioxide Anion Gap BUN Creatinine Estim Creat Clear Calc Estimated GFR POC Glucose Random Glucose Lactic Acid Lactic Acid F/U @ 2Hr Calcium Magnesium Total Bilirubin AST ALT Alkaline Phosphatase Troponin I High Sens Total Protein Albumin Vancomycin Trough Random Vancomycin C. difficile Tox B Gene Influenza Type A (PCR) Influenza Type B (PCR) RSV RNA Qual (PCR) SARS-CoV-2 RNA (RT-PCR) Blood Type Antibody Screen Crossmatch 07/12/25 07/12/25 07/12/25 09:13 09:13 09:13 WBC RBC Hgb Hct MCV 96.5 MCH Cancelled 32.8 MCHC Cancelled 34.0 RDW Cancelled Plt Count MPV Immature Gran % (Auto) Neut % (Auto) Lymph % (Auto) [place] % (Auto) Eos % (Auto) Baso % (Auto) Lymph # (Auto) [place] # (Auto) Eos # (Auto) Baso # (Auto) Abs Immat Gran (auto) Absolute Neuts (auto) Absolute Nucleated RBC Nucleated RBC % (auto) Neutrophils % (Manual) Band Neutrophils % Lymphocytes % (Manual) Atypical Lymphs % (Man) Monocytes % (Manual) Eosinophils % (Manual) Basophils % (Manual) Metamyelocytes % Abs Neuts (Manual) Lymphocytes # (Manual) Atyp Lymphs # (Manual) Monocytes # (Manual) Eosinophils # (Manual) Basophils # (Manual) Metamyelocytes # Toxic Vacuolation Platelet Estimate Plt Morphology Comment RBC Morphology Macrocytosis [place] Cells Schistocytes Smear Path Review Hold Purple Top PT INR Sodium Potassium Chloride Carbon Dioxide Anion Gap BUN Creatinine Estim Creat Clear Calc Estimated GFR POC Glucose Random Glucose Lactic Acid Lactic Acid F/U @ 2Hr Calcium Magnesium Total Bilirubin AST ALT Alkaline Phosphatase Troponin I High Sens Total Protein Albumin Vancomycin Trough Random Vancomycin C. difficile Tox B Gene Influenza Type A (PCR) Influenza Type B (PCR) RSV RNA Qual (PCR) SARS-CoV-2 RNA (RT-PCR) Blood Type Antibody Screen Crossmatch 07/12/25 07/12/25 07/12/25 09:13 09:13 09:13 WBC RBC Hgb Hct MCV MCH MCHC RDW 16.6 H Plt Count Cancelled 106 L MPV Cancelled 10.0 Immature Gran % (Auto) Cancelled Neut % (Auto) Cancelled Lymph % (Auto) Cancelled [place] % (Auto) Cancelled Eos % (Auto) Cancelled Baso % (Auto) Cancelled Lymph # (Auto) Cancelled [place] # (Auto) Cancelled Eos # (Auto) Cancelled Baso # (Auto) Cancelled Abs Immat Gran (auto) Cancelled Absolute Neuts (auto) Cancelled Absolute Nucleated RBC Cancelled Nucleated RBC % (auto) Neutrophils % (Manual) Band Neutrophils % Lymphocytes % (Manual) Atypical Lymphs % (Man) Monocytes % (Manual) Eosinophils % (Manual) Basophils % (Manual) Metamyelocytes % Abs Neuts (Manual) Lymphocytes # (Manual) Atyp Lymphs # (Manual) Monocytes # (Manual) Eosinophils # (Manual) Basophils # (Manual) Metamyelocytes # Toxic Vacuolation Platelet Estimate Plt Morphology Comment RBC Morphology Macrocytosis [place] Cells Schistocytes Smear Path Review Hold Purple Top PT INR Sodium Potassium Chloride Carbon Dioxide Anion Gap BUN Creatinine Estim Creat Clear Calc Estimated GFR POC Glucose Random Glucose Lactic Acid Lactic Acid F/U @ 2Hr Calcium Magnesium Total Bilirubin AST ALT Alkaline Phosphatase Troponin I High Sens Total Protein Albumin Vancomycin Trough Random Vancomycin C. difficile Tox B Gene Influenza Type A (PCR) Influenza Type B (PCR) RSV RNA Qual (PCR) SARS-CoV-2 RNA (RT-PCR) Blood Type Antibody Screen Crossmatch 07/12/25 07/12/25 07/12/25 09:13 09:13 09:13 WBC RBC Hgb Hct MCV MCH MCHC RDW Plt Count MPV Immature Gran % (Auto) Neut % (Auto) Lymph % (Auto) [place] % (Auto) Eos % (Auto) Baso % (Auto) Lymph # (Auto) [place] # (Auto) Eos # (Auto) Baso # (Auto) Abs Immat Gran (auto) Absolute Neuts (auto) Absolute Nucleated RBC 0.000 Nucleated RBC % (auto) Cancelled 0.0 Neutrophils % (Manual) 93 H Band Neutrophils % 2 L Lymphocytes % (Manual) 3 L Atypical Lymphs % (Man) 1 Monocytes % (Manual) 1 L Eosinophils % (Manual) Basophils % (Manual) Metamyelocytes % Abs Neuts (Manual) 22.6 H Lymphocytes # (Manual) 0.7 L Atyp Lymphs # (Manual) 0.2 Monocytes # (Manual) 0.2 Eosinophils # (Manual) Basophils # (Manual) Metamyelocytes # Toxic Vacuolation Platelet Estimate DECREASED Plt Morphology Comment NORMAL RBC Morphology NOTED Macrocytosis 1+ (5-14) [place] Cells 1+ (0-2) Schistocytes 1+ (0-2) Smear Path Review Hold Purple Top SEE NOTE PT INR Sodium 139 139 Potassium 3.6 Chloride Carbon Dioxide Anion Gap BUN Creatinine Estim Creat Clear Calc Estimated GFR POC Glucose Random Glucose Lactic Acid Lactic Acid F/U @ 2Hr Calcium Magnesium Total Bilirubin AST ALT Alkaline Phosphatase Troponin I High Sens Total Protein Albumin Vancomycin Trough Random Vancomycin C. difficile Tox B Gene Influenza Type A (PCR) Influenza Type B (PCR) RSV RNA Qual (PCR) SARS-CoV-2 RNA (RT-PCR) Blood Type Antibody Screen Crossmatch 07/12/25 07/12/25 07/12/25 09:13 09:13 09:13 WBC RBC Hgb Hct MCV MCH MCHC RDW Plt Count MPV Immature Gran % (Auto) Neut % (Auto) Lymph % (Auto) [place] % (Auto) Eos % (Auto) Baso % (Auto) Lymph # (Auto) [place] # (Auto) Eos # (Auto) Baso # (Auto) Abs Immat Gran (auto) Absolute Neuts (auto) Absolute Nucleated RBC Nucleated RBC % (auto) Neutrophils % (Manual) Band Neutrophils % Lymphocytes % (Manual) Atypical Lymphs % (Man) Monocytes % (Manual) Eosinophils % (Manual) Basophils % (Manual) Metamyelocytes % Abs Neuts (Manual) Lymphocytes # (Manual) Atyp Lymphs # (Manual) Monocytes # (Manual) Eosinophils # (Manual) Basophils # (Manual) Metamyelocytes # Toxic Vacuolation Platelet Estimate Plt Morphology Comment RBC Morphology Macrocytosis [place] Cells Schistocytes Smear Path Review Hold Purple Top PT INR Sodium Potassium 3.6 Chloride 107 106 Carbon Dioxide 20 L 20 L Anion Gap 16 BUN Creatinine Estim Creat Clear Calc Estimated GFR POC Glucose Random Glucose Lactic Acid Lactic Acid F/U @ 2Hr Calcium Magnesium Total Bilirubin AST ALT Alkaline Phosphatase Troponin I High Sens Total Protein Albumin Vancomycin Trough Random Vancomycin C. difficile Tox B Gene Influenza Type A (PCR) Influenza Type B (PCR) RSV RNA Qual (PCR) SARS-CoV-2 RNA (RT-PCR) Blood Type Antibody Screen Crossmatch 07/12/25 07/12/25 07/12/25 09:13 09:13 09:13 WBC RBC Hgb Hct MCV MCH MCHC RDW Plt Count MPV Immature Gran % (Auto) Neut % (Auto) Lymph % (Auto) [place] % (Auto) Eos % (Auto) Baso % (Auto) Lymph # (Auto) [place] # (Auto) Eos # (Auto) Baso # (Auto) Abs Immat Gran (auto) Absolute Neuts (auto) Absolute Nucleated RBC Nucleated RBC % (auto) Neutrophils % (Manual) Band Neutrophils % Lymphocytes % (Manual) Atypical Lymphs % (Man) Monocytes % (Manual) Eosinophils % (Manual) Basophils % (Manual) Metamyelocytes % Abs Neuts (Manual) Lymphocytes # (Manual) Atyp Lymphs # (Manual) Monocytes # (Manual) Eosinophils # (Manual) Basophils # (Manual) Metamyelocytes # Toxic Vacuolation Platelet Estimate Plt Morphology Comment RBC Morphology Macrocytosis Brent Cells Schistocytes Smear Path Review Hold Purple Top PT INR Sodium Potassium Chloride Carbon Dioxide Anion Gap 17 BUN 31 H 32 H Creatinine 1.21 1.22 Estim Creat Clear Calc Estimated GFR POC Glucose Random Glucose Lactic Acid Lactic Acid F/U @ 2Hr Calcium Magnesium Total Bilirubin AST ALT Alkaline Phosphatase Troponin I High Sens Total Protein Albumin Vancomycin Trough Random Vancomycin C. difficile Tox B Gene Influenza Type A (PCR) Influenza Type B (PCR) RSV RNA Qual (PCR) SARS-CoV-2 RNA (RT-PCR) Blood Type Antibody Screen Crossmatch 07/12/25 07/12/25 07/12/25 09:13 09:13 09:13 WBC RBC Hgb Hct MCV MCH MCHC RDW Plt Count MPV Immature Gran % (Auto) Neut % (Auto) Lymph % (Auto) [place] % (Auto) Eos % (Auto) Baso % (Auto) Lymph # (Auto) [place] # (Auto) Eos # (Auto) Baso # (Auto) Abs Immat Gran (auto) Absolute Neuts (auto) Absolute Nucleated RBC Nucleated RBC % (auto) Neutrophils % (Manual) Band Neutrophils % Lymphocytes % (Manual) Atypical Lymphs % (Man) Monocytes % (Manual) Eosinophils % (Manual) Basophils % (Manual) Metamyelocytes % Abs Neuts (Manual) Lymphocytes # (Manual) Atyp Lymphs # (Manual) Monocytes # (Manual) Eosinophils # (Manual) Basophils # (Manual) Metamyelocytes # Toxic Vacuolation Platelet Estimate Plt Morphology Comment RBC Morphology Macrocytosis [place] Cells Schistocytes Smear Path Review Hold Purple Top PT INR Sodium Potassium Chloride Carbon Dioxide Anion Gap BUN Creatinine 1.20 Estim Creat Clear Calc 55.2 54.7 55.6 Estimated GFR 58 POC Glucose Random Glucose Lactic Acid Lactic Acid F/U @ 2Hr Calcium Magnesium Total Bilirubin AST ALT Alkaline Phosphatase Troponin I High Sens Total Protein Albumin Vancomycin Trough Random Vancomycin C. difficile Tox B Gene Influenza Type A (PCR) Influenza Type B (PCR) RSV RNA Qual (PCR) SARS-CoV-2 RNA (RT-PCR) Blood Type Antibody Screen Crossmatch 07/12/25 07/12/25 07/12/25 09:13 09:13 09:13 WBC RBC Hgb Hct MCV MCH MCHC RDW Plt Count MPV Immature Gran % (Auto) Neut % (Auto) Lymph % (Auto) [place] % (Auto) Eos % (Auto) Baso % (Auto) Lymph # (Auto) [place] # (Auto) Eos # (Auto) Baso # (Auto) Abs Immat Gran (auto) Absolute Neuts (auto) Absolute Nucleated RBC Nucleated RBC % (auto) Neutrophils % (Manual) Band Neutrophils % Lymphocytes % (Manual) Atypical Lymphs % (Man) Monocytes % (Manual) Eosinophils % (Manual) Basophils % (Manual) Metamyelocytes % Abs Neuts (Manual) Lymphocytes # (Manual) Atyp Lymphs # (Manual) Monocytes # (Manual) Eosinophils # (Manual) Basophils # (Manual) Metamyelocytes # Toxic Vacuolation Platelet Estimate Plt Morphology Comment RBC Morphology Macrocytosis [place] Cells Schistocytes Smear Path Review Hold Purple Top PT INR Sodium Potassium Chloride Carbon Dioxide Anion Gap BUN Creatinine Estim Creat Clear Calc Estimated GFR 57 59 POC Glucose Random Glucose 146 H 146 H Lactic Acid Lactic Acid F/U @ 2Hr Calcium 8.2 L Magnesium Total Bilirubin AST ALT Alkaline Phosphatase Troponin I High Sens Total Protein Albumin Vancomycin Trough Random Vancomycin C. difficile Tox B Gene Influenza Type A (PCR) Influenza Type B (PCR) RSV RNA Qual (PCR) SARS-CoV-2 RNA (RT-PCR) Blood Type Antibody Screen Crossmatch 07/12/25 07/12/25 07/12/25 09:13 10:52 15:40 WBC RBC Hgb Hct MCV MCH MCHC RDW Plt Count MPV Immature Gran % (Auto) Neut % (Auto) Lymph % (Auto) [place] % (Auto) Eos % (Auto) Baso % (Auto) Lymph # (Auto) [place] # (Auto) Eos # (Auto) Baso # (Auto) Abs Immat Gran (auto) Absolute Neuts (auto) Absolute Nucleated RBC Nucleated RBC % (auto) Neutrophils % (Manual) Band Neutrophils % Lymphocytes % (Manual) Atypical Lymphs % (Man) Monocytes % (Manual) Eosinophils % (Manual) Basophils % (Manual) Metamyelocytes % Abs Neuts (Manual) Lymphocytes # (Manual) Atyp Lymphs # (Manual) Monocytes # (Manual) Eosinophils # (Manual) Basophils # (Manual) Metamyelocytes # Toxic Vacuolation Platelet Estimate Plt Morphology Comment RBC Morphology Macrocytosis [place] Cells Schistocytes Smear Path Review Hold Purple Top PT INR Sodium Potassium Chloride Carbon Dioxide Anion Gap BUN Creatinine Estim Creat Clear Calc Estimated GFR POC Glucose 130 H 133 H Random Glucose Lactic Acid Lactic Acid F/U @ 2Hr Calcium 8.2 L Magnesium Total Bilirubin AST ALT Alkaline Phosphatase Troponin I High Sens Total Protein Albumin Vancomycin Trough Random Vancomycin C. difficile Tox B Gene Influenza Type A (PCR) Influenza Type B (PCR) RSV RNA Qual (PCR) SARS-CoV-2 RNA (RT-PCR) Blood Type B Positive Antibody Screen NEGATIVE Crossmatch 07/12/25 07/13/25 07/13/25 19:46 07:55 08:48 WBC RBC Hgb Hct MCV MCH MCHC RDW Plt Count MPV Immature Gran % (Auto) Neut % (Auto) Lymph % (Auto) [place] % (Auto) Eos % (Auto) Baso % (Auto) Lymph # (Auto) [place] # (Auto) Eos # (Auto) Baso # (Auto) Abs Immat Gran (auto) Absolute Neuts (auto) Absolute Nucleated RBC Nucleated RBC % (auto) Neutrophils % (Manual) Band Neutrophils % Lymphocytes % (Manual) Atypical Lymphs % (Man) Monocytes % (Manual) Eosinophils % (Manual) Basophils % (Manual) Metamyelocytes % Abs Neuts (Manual) Lymphocytes # (Manual) Atyp Lymphs # (Manual) Monocytes # (Manual) Eosinophils # (Manual) Basophils # (Manual) Metamyelocytes # Toxic Vacuolation Platelet Estimate Plt Morphology Comment RBC Morphology Macrocytosis [place] Cells Schistocytes Smear Path Review Hold Purple Top PT INR Sodium Potassium Chloride Carbon Dioxide Anion Gap BUN Creatinine 0.97 Estim Creat Clear Calc 68.8 Estimated GFR > 60 POC Glucose 137 H 113 Random Glucose Lactic Acid Lactic Acid F/U @ 2Hr Calcium Magnesium Total Bilirubin AST ALT Alkaline Phosphatase Troponin I High Sens Total Protein Albumin Vancomycin Trough Random Vancomycin C. difficile Tox B Gene Influenza Type A (PCR) Influenza Type B (PCR) RSV RNA Qual (PCR) SARS-CoV-2 RNA (RT-PCR) Blood Type Antibody Screen Crossmatch 07/13/25 07/13/25 07/13/25 11:07 15:05 16:14 WBC RBC Hgb Hct MCV MCH MCHC RDW Plt Count MPV Immature Gran % (Auto) Neut % (Auto) Lymph % (Auto) [place] % (Auto) Eos % (Auto) Baso % (Auto) Lymph # (Auto) [place] # (Auto) Eos # (Auto) Baso # (Auto) Abs Immat Gran (auto) Absolute Neuts (auto) Absolute Nucleated RBC Nucleated RBC % (auto) Neutrophils % (Manual) Band Neutrophils % Lymphocytes % (Manual) Atypical Lymphs % (Man) Monocytes % (Manual) Eosinophils % (Manual) Basophils % (Manual) Metamyelocytes % Abs Neuts (Manual) Lymphocytes # (Manual) Atyp Lymphs # (Manual) Monocytes # (Manual) Eosinophils # (Manual) Basophils # (Manual) Metamyelocytes # Toxic Vacuolation Platelet Estimate Plt Morphology Comment RBC Morphology Macrocytosis [place] Cells Schistocytes Smear Path Review Hold Purple Top PT INR Sodium Potassium Chloride Carbon Dioxide Anion Gap BUN Creatinine Estim Creat Clear Calc Estimated GFR POC Glucose 116 H 154 H Random Glucose Lactic Acid Lactic Acid F/U @ 2Hr Calcium Magnesium Total Bilirubin AST ALT Alkaline Phosphatase Troponin I High Sens Total Protein Albumin Vancomycin Trough Random Vancomycin C. difficile Tox B Gene NEGATIVE Influenza Type A (PCR) Influenza Type B (PCR) RSV RNA Qual (PCR) SARS-CoV-2 RNA (RT-PCR) Blood Type Antibody Screen Crossmatch 07/13/25 07/13/25 07/14/25 19:57 20:27 07:06 WBC RBC Hgb Hct MCV MCH MCHC RDW Plt Count MPV Immature Gran % (Auto) Neut % (Auto) Lymph % (Auto) [place] % (Auto) Eos % (Auto) Baso % (Auto) Lymph # (Auto) [place] # (Auto) Eos # (Auto) Baso # (Auto) Abs Immat Gran (auto) Absolute Neuts (auto) Absolute Nucleated RBC Nucleated RBC % (auto) Neutrophils % (Manual) Band Neutrophils % Lymphocytes % (Manual) Atypical Lymphs % (Man) Monocytes % (Manual) Eosinophils % (Manual) Basophils % (Manual) Metamyelocytes % Abs Neuts (Manual) Lymphocytes # (Manual) Atyp Lymphs # (Manual) Monocytes # (Manual) Eosinophils # (Manual) Basophils # (Manual) Metamyelocytes # Toxic Vacuolation Platelet Estimate Plt Morphology Comment RBC Morphology Macrocytosis [place] Cells Schistocytes Smear Path Review Hold Purple Top PT INR Sodium Potassium Chloride Carbon Dioxide Anion Gap BUN Creatinine Estim Creat Clear Calc Estimated GFR POC Glucose 117 H 74 Random Glucose Lactic Acid Lactic Acid F/U @ 2Hr Calcium Magnesium Total Bilirubin AST ALT Alkaline Phosphatase Troponin I High Sens Total Protein Albumin Vancomycin Trough Random Vancomycin 17.8 C. difficile Tox B Gene Influenza Type A (PCR) Influenza Type B (PCR) RSV RNA Qual (PCR) SARS-CoV-2 RNA (RT-PCR) Blood Type Antibody Screen Crossmatch 07/14/25 07/14/25 07/14/25 08:19 11:18 16:03 WBC 13.6 H RBC 2.94 L Hgb 9.6 L Hct 27.9 L MCV 94.9 MCH 32.7 MCHC 34.4 RDW 16.2 H Plt Count 127 L MPV 10.3 Immature Gran % (Auto) Neut % (Auto) Lymph % (Auto) [place] % (Auto) Eos % (Auto) Baso % (Auto) Lymph # (Auto) [place] # (Auto) Eos # (Auto) Baso # (Auto) Abs Immat Gran (auto) Absolute Neuts (auto) Absolute Nucleated RBC 0.000 Nucleated RBC % (auto) 0.0 Neutrophils % (Manual) Band Neutrophils % Lymphocytes % (Manual) Atypical Lymphs % (Man) Monocytes % (Manual) Eosinophils % (Manual) Basophils % (Manual) Metamyelocytes % Abs Neuts (Manual) Lymphocytes # (Manual) Atyp Lymphs # (Manual) Monocytes # (Manual) Eosinophils # (Manual) Basophils # (Manual) Metamyelocytes # Toxic Vacuolation Platelet Estimate Plt Morphology Comment RBC Morphology Macrocytosis [place] Cells Schistocytes Smear Path Review Hold Purple Top PT INR Sodium 141 Potassium 3.2 L Chloride 108 Carbon Dioxide 21 L Anion Gap 15 BUN 37 H Creatinine 1.13 Estim Creat Clear Calc 59.1 Estimated GFR > 60 POC Glucose 82 100 Random Glucose 80 Lactic Acid Lactic Acid F/U @ 2Hr Calcium 8.4 Magnesium Total Bilirubin AST ALT Alkaline Phosphatase Troponin I High Sens Total Protein Albumin Vancomycin Trough Random Vancomycin C. difficile Tox B Gene Influenza Type A (PCR) Influenza Type B (PCR) RSV RNA Qual (PCR) SARS-CoV-2 RNA (RT-PCR) Blood Type Antibody Screen Crossmatch 07/14/25 07/15/25 07/15/25 20:15 06:22 07:16 WBC 8.1 RBC 2.97 L Hgb 9.7 L Hct 27.7 L MCV 93.3 MCH 32.7 MCHC 35.0 RDW 16.1 H Plt Count 106 L MPV 10.2 Immature Gran % (Auto) Neut % (Auto) Lymph % (Auto) [place] % (Auto) Eos % (Auto) Baso % (Auto) Lymph # (Auto) [place] # (Auto) Eos # (Auto) Baso # (Auto) Abs Immat Gran (auto) Absolute Neuts (auto) Absolute Nucleated RBC 0.000 Nucleated RBC % (auto) 0.0 Neutrophils % (Manual) Band Neutrophils % Lymphocytes % (Manual) Atypical Lymphs % (Man) Monocytes % (Manual) Eosinophils % (Manual) Basophils % (Manual) Metamyelocytes % Abs Neuts (Manual) Lymphocytes # (Manual) Atyp Lymphs # (Manual) Monocytes # (Manual) Eosinophils # (Manual) Basophils # (Manual) Metamyelocytes # Toxic Vacuolation Platelet Estimate Plt Morphology Comment RBC Morphology Macrocytosis [place] Cells Schistocytes Smear Path Review Hold Purple Top PT INR Sodium 139 Potassium 3.1 L Chloride 107 Carbon Dioxide 19 L Anion Gap 16 BUN 43 H Creatinine 1.08 Estim Creat Clear Calc 61.8 Estimated GFR > 60 POC Glucose 111 91 Random Glucose 88 Lactic Acid Lactic Acid F/U @ 2Hr Calcium 8.3 L Magnesium 2.1 Total Bilirubin AST ALT Alkaline Phosphatase Troponin I High Sens Total Protein Albumin Vancomycin Trough Random Vancomycin C. difficile Tox B Gene Influenza Type A (PCR) Influenza Type B (PCR) RSV RNA Qual (PCR) SARS-CoV-2 RNA (RT-PCR) Blood Type Antibody Screen Crossmatch 07/15/25 07/15/25 07/15/25 11:06 16:12 19:51 WBC RBC Hgb Hct MCV MCH MCHC RDW Plt Count MPV Immature Gran % (Auto) Neut % (Auto) Lymph % (Auto) [place] % (Auto) Eos % (Auto) Baso % (Auto) Lymph # (Auto) [place] # (Auto) Eos # (Auto) Baso # (Auto) Abs Immat Gran (auto) Absolute Neuts (auto) Absolute Nucleated RBC Nucleated RBC % (auto) Neutrophils % (Manual) Band Neutrophils % Lymphocytes % (Manual) Atypical Lymphs % (Man) Monocytes % (Manual) Eosinophils % (Manual) Basophils % (Manual) Metamyelocytes % Abs Neuts (Manual) Lymphocytes # (Manual) Atyp Lymphs # (Manual) Monocytes # (Manual) Eosinophils # (Manual) Basophils # (Manual) Metamyelocytes # Toxic Vacuolation Platelet Estimate Plt Morphology Comment RBC Morphology Macrocytosis [place] Cells Schistocytes Smear Path Review Hold Purple Top PT INR Sodium Potassium Chloride Carbon Dioxide Anion Gap BUN Creatinine Estim Creat Clear Calc Estimated GFR POC Glucose 98 145 H Random Glucose Lactic Acid Lactic Acid F/U @ 2Hr Calcium Magnesium Total Bilirubin AST ALT Alkaline Phosphatase Troponin I High Sens Total Protein Albumin Vancomycin Trough Random Vancomycin 23.8 H C. difficile Tox B Gene Influenza Type A (PCR) Influenza Type B (PCR) RSV RNA Qual (PCR) SARS-CoV-2 RNA (RT-PCR) Blood Type Antibody Screen Crossmatch 07/15/25 07/16/25 07/16/25 20:24 07:33 09:43 WBC 2.8 L RBC 2.88 L Hgb 9.2 L Hct 27.1 L MCV 94.1 MCH 31.9 MCHC 33.9 RDW 16.0 Plt Count 109 L MPV 10.2 Immature Gran % (Auto) Neut % (Auto) Lymph % (Auto) [place] % (Auto) Eos % (Auto) Baso % (Auto) Lymph # (Auto) [place] # (Auto) Eos # (Auto) Baso # (Auto) Abs Immat Gran (auto) Absolute Neuts (auto) Absolute Nucleated RBC 0.000 Nucleated RBC % (auto) 0.0 Neutrophils % (Manual) Band Neutrophils % Lymphocytes % (Manual) Atypical Lymphs % (Man) Monocytes % (Manual) Eosinophils % (Manual) Basophils % (Manual) Metamyelocytes % Abs Neuts (Manual) Lymphocytes # (Manual) Atyp Lymphs # (Manual) Monocytes # (Manual) Eosinophils # (Manual) Basophils # (Manual) Metamyelocytes # Toxic Vacuolation Platelet Estimate Plt Morphology Comment RBC Morphology Macrocytosis [place] Cells Schistocytes Smear Path Review Hold Purple Top PT INR Sodium 140 Potassium 3.2 L Chloride 109 H Carbon Dioxide 17 L Anion Gap 17 BUN 44 H Creatinine 1.07 Estim Creat Clear Calc 62.4 Estimated GFR > 60 POC Glucose 134 H 73 Random Glucose 77 Lactic Acid Lactic Acid F/U @ 2Hr Calcium 8.2 L Magnesium Total Bilirubin AST ALT Alkaline Phosphatase Troponin I High Sens Total Protein Albumin Vancomycin Trough Random Vancomycin 22.7 H C. difficile Tox B Gene Influenza Type A (PCR) Influenza Type B (PCR) RSV RNA Qual (PCR) SARS-CoV-2 RNA (RT-PCR) Blood Type Antibody Screen Crossmatch 07/16/25 07/16/25 07/16/25 11:36 16:17 19:59 WBC RBC Hgb Hct MCV MCH MCHC RDW Plt Count MPV Immature Gran % (Auto) Neut % (Auto) Lymph % (Auto) [place] % (Auto) Eos % (Auto) Baso % (Auto) Lymph # (Auto) [place] # (Auto) Eos # (Auto) Baso # (Auto) Abs Immat Gran (auto) Absolute Neuts (auto) Absolute Nucleated RBC Nucleated RBC % (auto) Neutrophils % (Manual) Band Neutrophils % Lymphocytes % (Manual) Atypical Lymphs % (Man) Monocytes % (Manual) Eosinophils % (Manual) Basophils % (Manual) Metamyelocytes % Abs Neuts (Manual) Lymphocytes # (Manual) Atyp Lymphs # (Manual) Monocytes # (Manual) Eosinophils # (Manual) Basophils # (Manual) Metamyelocytes # Toxic Vacuolation Platelet Estimate Plt Morphology Comment RBC Morphology Macrocytosis [place] Cells Schistocytes Smear Path Review Hold Purple Top PT INR Sodium Potassium Chloride Carbon Dioxide Anion Gap BUN Creatinine Estim Creat Clear Calc Estimated GFR POC Glucose 72 72 70 Random Glucose Lactic Acid Lactic Acid F/U @ 2Hr Calcium Magnesium Total Bilirubin AST ALT Alkaline Phosphatase Troponin I High Sens Total Protein Albumin Vancomycin Trough Random Vancomycin C. difficile Tox B Gene Influenza Type A (PCR) Influenza Type B (PCR) RSV RNA Qual (PCR) SARS-CoV-2 RNA (RT-PCR) Blood Type Antibody Screen Crossmatch 07/16/25 07/17/25 07/17/25 22:05 07:37 08:22 WBC RBC Hgb Hct MCV MCH MCHC RDW Plt Count MPV Immature Gran % (Auto) Neut % (Auto) Lymph % (Auto) [place] % (Auto) Eos % (Auto) Baso % (Auto) Lymph # (Auto) [place] # (Auto) Eos # (Auto) Baso # (Auto) Abs Immat Gran (auto) Absolute Neuts (auto) Absolute Nucleated RBC Nucleated RBC % (auto) Neutrophils % (Manual) Band Neutrophils % Lymphocytes % (Manual) Atypical Lymphs % (Man) Monocytes % (Manual) Eosinophils % (Manual) Basophils % (Manual) Metamyelocytes % Abs Neuts (Manual) Lymphocytes # (Manual) Atyp Lymphs # (Manual) Monocytes # (Manual) Eosinophils # (Manual) Basophils # (Manual) Metamyelocytes # Toxic Vacuolation Platelet Estimate Plt Morphology Comment RBC Morphology Macrocytosis [place] Cells Schistocytes Smear Path Review Hold Purple Top PT INR Sodium Potassium Chloride Carbon Dioxide Anion Gap BUN Creatinine Estim Creat Clear Calc Estimated GFR POC Glucose 58 L* 141 H Random Glucose Lactic Acid Lactic Acid F/U @ 2Hr Calcium Magnesium Total Bilirubin AST ALT Alkaline Phosphatase Troponin I High Sens Total Protein Albumin Vancomycin Trough Random Vancomycin 20.8 H C. difficile Tox B Gene Influenza Type A (PCR) Influenza Type B (PCR) RSV RNA Qual (PCR) SARS-CoV-2 RNA (RT-PCR) Blood Type Antibody Screen Crossmatch 07/17/25 07/17/25 07/17/25 09:01 09:05 11:27 WBC RBC Hgb Hct MCV MCH MCHC RDW Plt Count MPV Immature Gran % (Auto) Neut % (Auto) Lymph % (Auto) [place] % (Auto) Eos % (Auto) Baso % (Auto) Lymph # (Auto) [place] # (Auto) Eos # (Auto) Baso # (Auto) Abs Immat Gran (auto) Absolute Neuts (auto) Absolute Nucleated RBC Nucleated RBC % (auto) Neutrophils % (Manual) Band Neutrophils % Lymphocytes % (Manual) Atypical Lymphs % (Man) Monocytes % (Manual) Eosinophils % (Manual) Basophils % (Manual) Metamyelocytes % Abs Neuts (Manual) Lymphocytes # (Manual) Atyp Lymphs # (Manual) Monocytes # (Manual) Eosinophils # (Manual) Basophils # (Manual) Metamyelocytes # Toxic Vacuolation Platelet Estimate Plt Morphology Comment RBC Morphology Macrocytosis [place] Cells Schistocytes Smear Path Review Hold Purple Top SEE NOTE PT INR Sodium 143 Potassium 3.1 L Chloride 110 H Carbon Dioxide 19 L Anion Gap 17 BUN 42 H Creatinine 0.97 Estim Creat Clear Calc 68.8 Estimated GFR > 60 POC Glucose 100 Random Glucose 144 H Lactic Acid Lactic Acid F/U @ 2Hr Calcium 8.2 L Magnesium Total Bilirubin AST ALT Alkaline Phosphatase Troponin I High Sens Total Protein Albumin Vancomycin Trough Random Vancomycin 18.2 C. difficile Tox B Gene Influenza Type A (PCR) Influenza Type B (PCR) RSV RNA Qual (PCR) SARS-CoV-2 RNA (RT-PCR) Blood Type Antibody Screen Crossmatch 07/17/25 07/17/25 07/17/25 16:23 19:40 20:04 WBC RBC Hgb Hct MCV MCH MCHC RDW Plt Count MPV Immature Gran % (Auto) Neut % (Auto) Lymph % (Auto) [place] % (Auto) Eos % (Auto) Baso % (Auto) Lymph # (Auto) [place] # (Auto) Eos # (Auto) Baso # (Auto) Abs Immat Gran (auto) Absolute Neuts (auto) Absolute Nucleated RBC Nucleated RBC % (auto) Neutrophils % (Manual) Band Neutrophils % Lymphocytes % (Manual) Atypical Lymphs % (Man) Monocytes % (Manual) Eosinophils % (Manual) Basophils % (Manual) Metamyelocytes % Abs Neuts (Manual) Lymphocytes # (Manual) Atyp Lymphs # (Manual) Monocytes # (Manual) Eosinophils # (Manual) Basophils # (Manual) Metamyelocytes # Toxic Vacuolation Platelet Estimate Plt Morphology Comment RBC Morphology Macrocytosis Brent Cells Schistocytes Smear Path Review Hold Purple Top PT INR Sodium Potassium Chloride Carbon Dioxide Anion Gap BUN Creatinine Estim Creat Clear Calc Estimated GFR POC Glucose 150 H 175 H Random Glucose Lactic Acid Lactic Acid F/U @ 2Hr Calcium Magnesium Total Bilirubin AST ALT Alkaline Phosphatase Troponin I High Sens Total Protein Albumin Vancomycin Trough 15.4 Random Vancomycin C. difficile Tox B Gene Influenza Type A (PCR) Influenza Type B (PCR) RSV RNA Qual (PCR) SARS-CoV-2 RNA (RT-PCR) Blood Type Antibody Screen Crossmatch 07/17/25 07/18/25 07/18/25 21:24 06:07 07:28 WBC RBC Hgb Hct MCV MCH MCHC RDW Plt Count MPV Immature Gran % (Auto) Neut % (Auto) Lymph % (Auto) [place] % (Auto) Eos % (Auto) Baso % (Auto) Lymph # (Auto) [place] # (Auto) Eos # (Auto) Baso # (Auto) Abs Immat Gran (auto) Absolute Neuts (auto) Absolute Nucleated RBC Nucleated RBC % (auto) Neutrophils % (Manual) Band Neutrophils % Lymphocytes % (Manual) Atypical Lymphs % (Man) Monocytes % (Manual) Eosinophils % (Manual) Basophils % (Manual) Metamyelocytes % Abs Neuts (Manual) Lymphocytes # (Manual) Atyp Lymphs # (Manual) Monocytes # (Manual) Eosinophils # (Manual) Basophils # (Manual) Metamyelocytes # Toxic Vacuolation Platelet Estimate Plt Morphology Comment RBC Morphology Macrocytosis [place] Cells Schistocytes Smear Path Review Hold Purple Top PT INR Sodium 145 Potassium 3.2 L Chloride 111 H Carbon Dioxide 20 L Anion Gap 17 BUN 26 H Creatinine 0.82 Estim Creat Clear Calc 81.4 Estimated GFR > 60 POC Glucose 140 H 167 H Random Glucose 158 H Lactic Acid Lactic Acid F/U @ 2Hr Calcium 8.0 L Magnesium Total Bilirubin AST ALT Alkaline Phosphatase Troponin I High Sens Total Protein Albumin Vancomycin Trough Random Vancomycin C. difficile Tox B Gene Influenza Type A (PCR) Influenza Type B (PCR) RSV RNA Qual (PCR) SARS-CoV-2 RNA (RT-PCR) Blood Type Antibody Screen Crossmatch 07/18/25 07/18/25 07/18/25 11:31 15:59 20:02 WBC RBC Hgb Hct MCV MCH MCHC RDW Plt Count MPV Immature Gran % (Auto) Neut % (Auto) Lymph % (Auto) [place] % (Auto) Eos % (Auto) Baso % (Auto) Lymph # (Auto) [place] # (Auto) Eos # (Auto) Baso # (Auto) Abs Immat Gran (auto) Absolute Neuts (auto) Absolute Nucleated RBC Nucleated RBC % (auto) Neutrophils % (Manual) Band Neutrophils % Lymphocytes % (Manual) Atypical Lymphs % (Man) Monocytes % (Manual) Eosinophils % (Manual) Basophils % (Manual) Metamyelocytes % Abs Neuts (Manual) Lymphocytes # (Manual) Atyp Lymphs # (Manual) Monocytes # (Manual) Eosinophils # (Manual) Basophils # (Manual) Metamyelocytes # Toxic Vacuolation Platelet Estimate Plt Morphology Comment RBC Morphology Macrocytosis [place] Cells Schistocytes Smear Path Review Hold Purple Top PT INR Sodium Potassium Chloride Carbon Dioxide Anion Gap BUN Creatinine Estim Creat Clear Calc Estimated GFR POC Glucose 108 123 H Random Glucose Lactic Acid Lactic Acid F/U @ 2Hr Calcium Magnesium Total Bilirubin AST ALT Alkaline Phosphatase Troponin I High Sens Total Protein Albumin Vancomycin Trough Random Vancomycin 15.9 C. difficile Tox B Gene Influenza Type A (PCR) Influenza Type B (PCR) RSV RNA Qual (PCR) SARS-CoV-2 RNA (RT-PCR) Blood Type Antibody Screen Crossmatch 07/18/25 07/18/25 07/19/25 20:06 22:37 05:54 WBC 6.3 RBC 2.67 L Hgb 8.5 L Hct 24.8 L MCV 92.9 MCH 31.8 MCHC 34.3 RDW 15.9 Plt Count 92 L MPV 11.2 Immature Gran % (Auto) Cancelled Neut % (Auto) Cancelled Lymph % (Auto) Cancelled [place] % (Auto) Cancelled Eos % (Auto) Cancelled Baso % (Auto) Cancelled Lymph # (Auto) Cancelled [place] # (Auto) Cancelled Eos # (Auto) Cancelled Baso # (Auto) Cancelled Abs Immat Gran (auto) Cancelled Absolute Neuts (auto) Cancelled Absolute Nucleated RBC 0.020 H Nucleated RBC % (auto) 0.3 H Neutrophils % (Manual) 79 H Band Neutrophils % 0 L Lymphocytes % (Manual) 10 L Atypical Lymphs % (Man) 2 Monocytes % (Manual) 4 Eosinophils % (Manual) 4 Basophils % (Manual) Metamyelocytes % 1 Abs Neuts (Manual) 5.0 Lymphocytes # (Manual) 0.6 L Atyp Lymphs # (Manual) 0.1 Monocytes # (Manual) 0.3 Eosinophils # (Manual) 0.3 Basophils # (Manual) Metamyelocytes # 0.1 Toxic Vacuolation Platelet Estimate DECREASED Plt Morphology Comment NORMAL RBC Morphology NOTED Macrocytosis [place] Cells 2+ (3-5) Schistocytes Smear Path Review Hold Purple Top SEE NOTE PT INR Sodium 145 Potassium 2.6 L* Chloride 110 H Carbon Dioxide 25 Anion Gap 13 BUN 16 Creatinine 0.75 Estim Creat Clear Calc 89.0 Estimated GFR > 60 POC Glucose 161 H 152 H Random Glucose 154 H Lactic Acid Lactic Acid F/U @ 2Hr Calcium 7.9 L Magnesium 1.6 Total Bilirubin AST ALT Alkaline Phosphatase Troponin I High Sens Total Protein Albumin Vancomycin Trough Random Vancomycin C. difficile Tox B Gene Influenza Type A (PCR) Influenza Type B (PCR) RSV RNA Qual (PCR) SARS-CoV-2 RNA (RT-PCR) Blood Type Antibody Screen Crossmatch 07/19/25 07/19/25 07/19/25 07:27 10:12 11:48 WBC 5.7 RBC 2.87 L Hgb 9.3 L Hct 26.7 L MCV 93.0 MCH 32.4 MCHC 34.8 RDW 15.8 Plt Count 83 L MPV 10.1 Immature Gran % (Auto) Neut % (Auto) Lymph % (Auto) [place] % (Auto) Eos % (Auto) Baso % (Auto) Lymph # (Auto) [place] # (Auto) Eos # (Auto) Baso # (Auto) Abs Immat Gran (auto) Absolute Neuts (auto) Absolute Nucleated RBC 0.000 Nucleated RBC % (auto) 0.0 Neutrophils % (Manual) Band Neutrophils % Lymphocytes % (Manual) Atypical Lymphs % (Man) Monocytes % (Manual) Eosinophils % (Manual) Basophils % (Manual) Metamyelocytes % Abs Neuts (Manual) Lymphocytes # (Manual) Atyp Lymphs # (Manual) Monocytes # (Manual) Eosinophils # (Manual) Basophils # (Manual) Metamyelocytes # Toxic Vacuolation Platelet Estimate Plt Morphology Comment RBC Morphology Macrocytosis [place] Cells Schistocytes Smear Path Review Hold Purple Top PT INR Sodium Potassium Chloride Carbon Dioxide Anion Gap BUN Creatinine Estim Creat Clear Calc Estimated GFR POC Glucose 140 H 140 H Random Glucose Lactic Acid Lactic Acid F/U @ 2Hr Calcium Magnesium Total Bilirubin AST ALT Alkaline Phosphatase Troponin I High Sens Total Protein Albumin Vancomycin Trough Random Vancomycin C. difficile Tox B Gene Influenza Type A (PCR) Influenza Type B (PCR) RSV RNA Qual (PCR) SARS-CoV-2 RNA (RT-PCR) Blood Type B Positive Antibody Screen NEGATIVE Crossmatch See Detail Assessment and Plan Final Anesthetic Review Family History of Problems with Anesthesia: No History of Problems with Anesthesia: No
[2025-07-19 12:18] LABS: Albumin Level 2.5 g/dL (3.5-5.0)
[2025-07-19 12:27] LABS: Base Excess Bedside Calculated -11 mmol/L (-3-3); Glucose, i-STAT 90 mg/dL (60-115); HCO3 Bedside Calculated 14 mmol/L (22-26); Hematocrit Bedside < 15 %PCV (42-52); Potassium Bedside 3.1 mmol/L (3.3-5.1); Sodium Bedside 140 mmol/L (135-145); TCO2 Bedside 15 mmol/L (24-29); pCO2 Bedside 22 mmhg (35-48); pH Bedside 7.41 (7.35-7.45)
--- NOTE | 2025-07-19 14:02 | P.CONCC_ITS ---
History of Present Illness Data of Consult Service Date: 07/19/25 Primary Care Provider: Get Martin MD [facility] Reason for consult: hemetemesis 80 years old gentleman with PMH of multiple sclerosis who is chronically bed- bound with chronic indwelling Nunez catheter, past history of bullous pemphigoid on chronic steroids and methotrexate, mood disorder, mixed hyperlipidemia, hypertension, insulin-dependent diabetes mellitus is admitted to the hospital on 07/11/2025 secondary to altered mental status due to sepsis from Staph aureus bacteremia possibly secondary to bacterial translocation from his skin lesions. He was treated with IV vancomycin, and meropenem for possible UTI due to due to history of ESBL UTI. TTE negative for endocarditis, ID recommended IV vancomycin for 4 weeks. Patient had distention of abdomen upon admission, vomiting, with obstipation so x-ray KUB was done which showed possible gastric outlet obstruction and significant distention of the stomach, CT was done which showed similar findings along with proctitis and pneumonia. An NG tube was placed for decompression, on 07/17/2025 patient was complaining of throat pain and wanted his NG tube out. When the NG tube was pulled off patient ended up having hematemesis for which she underwent emergent upper GI endoscopy which showed Esophagitis with bleeding esophageal defect at 25 cm suspicious for NG tube trauma (endoclip, hemospray). CT chest was done yesterday which did not show any evidence of perforation. This morning patient had further episodes of upper GI bleeding, repeat CT chest ruled out perforation, underwent upper GI endoscopy which showed large amount of clots along the upper 1/3 of esophagus. Patient was intubated for airway protection, is transferred to ICU postprocedure. Review of Systems 2 Review of Systems: Unable to obtain as patient is intubated [facility] Past Medical History Medical History Steroid dependence EDWARD (acute kidney injury) UTI (urinary tract infection) due to urinary indwelling Nunez catheter Bullous pemphigoid Decubitus ulcer of coccygeal region, stage 2 Acute hypotension Sepsis Aspiration pneumonitis Recurrent UTI (urinary tract infection) Hypotonic neurogenic bladder Lytic lesion of bone on x-ray Wound of foot Anemia Septic shock Shoulder pain Constipation Hematuria Multiple sclerosis Depression Diabetes mellitus type 2 in obese Chronic pain syndrome BPH (benign prostatic hyperplasia) Dehydration Chronic renal failure Urinary tract infection Family History Family History Family/Other Heart attack Father Diabetes Surgical History Surgical History Hx of removal of cyst Social History Social History Household Members: Unknown / Unable to assess Household Members Other:: lives at [facility] on [address] in [place] Housing: [facility] Housing Other:: [facility] Unable to assess alcohol history related to: Unable to respond Alcohol intake: never Comment: BEDFAST Patient Tobacco Use Status: Former Tobacco user Cigarette Packs Per Day: 1 Advance Directives Date on File: 10/13/20 service: Yes Current occupational status: retired [employer] Allergies Allergy/AdvReac Type Severity Reaction Status Date / Time Benzodiazepines Allergy Unknown UNKNOWN Verified 07/10/25 16:36 (BENZODIAZEPINES) dalfampridine (From AMPYRA) Allergy Unknown UNKNOWN Verified 07/10/25 16:36 duloxetine (From CYMBALTA) Allergy Unknown UNKNOWN Verified 07/10/25 16:36 ezetimibe (From ZETIA) Allergy Unknown UNKNOWN Verified 07/10/25 16:36 niacin (NIACIN) Allergy Unknown UNKNOWN Verified 07/10/25 16:36 pravastatin (PRAVASTATIN) Allergy Unknown UNKNOWN Verified 07/10/25 16:36 [id number] Reductase Allergy Unknown UNKNOWN Verified 07/10/25 16:36 Inhibitor ([id number] REDUCTASE INHIBITOR) lorazepam (From ATIVAN) AdvReac Severe EXCESSIVE Verified 07/10/25 16:36 SEDATION doxycycline (DOXYCYCLINE) AdvReac Mild esophogeal Verified 07/10/25 16:36 iritation methylprednisolone (From AdvReac Mild heartburn Verified 07/10/25 16:36 SOLU-MEDROL) ertapenem (From INVANZ) AdvReac Unknown possible Verified 07/10/25 16:36 cause of bullous pemphigoid Active Medications: Current Medications Acetaminophen (Acetaminophen 325 Mg Tablet) 650 mg PO Q6H PRN PRN Reason: Pain, Mild 1-3,fever,headache Last Admin: 07/17/25 15:42 Dose: 650 mg Acetaminophen (Acetaminophen 325 Mg Tablet) 650 mg PO BEDTIME [facility] Last Admin: 07/18/25 20:28 Dose: Not Given Amlodipine Besylate (Amlodipine Besylate 10 Mg Tablet) 10 mg PO DAILY [facility]; Protocol Last Admin: 07/19/25 10:15 Dose: Not Given Ascorbic Acid (Ascorbic Acid 500 Mg Tablet) 500 mg PO DAILY [facility] Last Admin: 07/19/25 10:15 Dose: Not Given Atorvastatin Calcium (Atorvastatin Calcium 10 Mg Tablet) 10 mg PO DAILY [facility] Last Admin: 07/19/25 10:16 Dose: Not Given Bacitracin (Bacitracin Oint 14 Gm Tube) 1 appl TOPICAL BID [facility]; Protocol Last Admin: 07/19/25 08:06 Dose: 1 appl Benzocaine (Throat Lozenge, Medicated Lozenge) 1 lozenge MUCOUS MEM Q2H PRN PRN Reason: Sore Throat Last Admin: 07/18/25 05:30 Dose: 1 lozenge Bisacodyl (Bisacodyl 5 Mg Tablet.Dr) 5 mg PO DAILY PRN PRN Reason: Constipation Bisacodyl (Bisacodyl 10 Mg Supp.Rect) 10 mg NC DAILY PRN PRN Reason: Constipation Bisacodyl (Bisacodyl 10 Mg Supp.Rect) 10 mg NC Q3D [facility] Last Admin: 07/18/25 09:30 Dose: 10 mg Bismuth Subsalicylate (Bismuth Subsalicylate Liquid 524 Mg/30 Ml Oral.Susp) 524 mg PO Q8H PRN PRN Reason: UPSET STOMACH/NAUSEA Calcium Carbonate (Calcium Carbonate 750 Mg Tab.Chew) 750 mg PO Q4H PRN PRN Reason: Heartburn Last Admin: 07/12/25 03:39 Dose: 750 mg Carvedilol (Carvedilol 6.25 Mg Tablet) 6.25 mg PO BID [facility]; Protocol Last Admin: 07/19/25 10:16 Dose: Not Given Dextrose (Dextrose 50 % 25 Gm/50 Ml Syringe) 25 gm IVPUSH Q15M PRN; Protocol PRN Reason: per Hypoglycemia Standing Ord. Last Admin: 07/17/25 07:49 Dose: 25 gm Docusate Sodium (Docusate Sodium 100 Mg Capsule) 200 mg PO BID [facility] Last Admin: 07/19/25 10:16 Dose: Not Given Ferrous Sulfate (Ferrous Sulfate 324 Mg Tablet.Dr) 324 mg PO DAILY [facility] Last Admin: 07/19/25 10:18 Dose: Not Given Folic Acid (Folic Acid 1 Mg Tablet) 1 mg PO SUTUWETHFRSA [facility] Last Admin: 07/17/25 17:37 Dose: 1 mg Gabapentin (Gabapentin 300 Mg Capsule) 300 mg PO TID [facility] Last Admin: 07/19/25 10:18 Dose: Not Given Glucose (Glucose Gel 15 Gm Gel..Gram.) 15 gm PO Q15M PRN; Protocol PRN Reason: per Hypoglycemia Standing Ord. Guaifenesin (Guaifenesin 200 Mg/10 Ml 10 Ml Liquid) 10 ml PO Q4H PRN PRN Reason: Cough Last Admin: 07/15/25 02:42 Dose: 10 ml Guaifenesin (Guaifenesin La 600 Mg Tab.Er.12h) 600 mg PO Q12H PRN PRN Reason: Cold Symptoms Vancomycin HCl 750 mg/ Sodium (Chloride) 265 mls @ 265 mls/hr IV Q24H [facility] Last Infusion: 07/19/25 00:35 Dose: Infused Pantoprazole Sodium 80 mg/ (Sodium Chloride) 100 mls @ 10 mls/hr IV .Q10H [facility] Last Admin: 07/19/25 11:47 Dose: 8 mg/hr, 10 mls/hr Lactated Ringer's (Lr) 1,000 mls @ 80 mls/hr IVCONT .[id number] [facility] Last Admin: 07/19/25 11:35 Dose: 80 mls/hr Nutrition (Parenteral) (Parenteral Nutrition) 1,440 mls @ 60 mls/hr IV .Q24H [facility]; Protocol Stop: 07/20/25 20:59 Insulin Human Lispro (Insulin Lispro 100 Unit/Ml 3 Ml Vial) 0 unit SUBCUT QIDACHS [facility]; Protocol Last Admin: 07/19/25 07:57 Dose: Not Given Lactulose (Lactulose 20 Gm/30 Ml Solution) 20 gm PO DAILY [facility] Last Admin: 07/19/25 10:17 Dose: Not Given Lidocaine HCl (Lidocaine Hcl Viscous 2 % 15 Ml Solution) 15 ml MUCOUS MEM Q3H PRN PRN Reason: Dyspepsia Last Admin: 07/18/25 03:27 Dose: 15 ml Loperamide HCl (Loperamide Hcl 2 Mg Capsule) 2 mg PO Q4H PRN PRN Reason: Diarrhea Last Admin: 07/13/25 22:35 Dose: 2 mg Magnesium Hydroxide (Milk Of Magnesia 30 Ml Oral.Susp) 30 ml PO DAILY PRN PRN Reason: Constipation Magnesium Hydroxide (Milk Of Magnesia 30 Ml Oral.Susp) 30 ml PO BEDTIME PRN PRN Reason: Constipation Melatonin (Melatonin 3 Mg Tablet) 6 mg PO BEDTIME PRN PRN Reason: Insomnia Last Admin: 07/11/25 03:45 Dose: 6 mg Meropenem (Meropenem 1 Gm Vial) 1 gm IVPUSH Q12H [facility] Last Admin: 07/19/25 10:44 Dose: 1 gm Methotrexate (Methotrexate Sodium 2.5 Mg Tablet) 15 mg PO MO [facility] Last Admin: 07/18/25 20:27 Dose: Not Given Morphine Sulfate (Morphine Sulfate 2 Mg/Ml Cartridge) 1 mg IVPUSH Q3H PRN; Protocol PRN Reason: Pain, Severe (Pain Scale 7-10) Last Admin: 07/19/25 09:08 Dose: 1 mg Naloxone HCl (Naloxone Hcl 0.4 Mg/Ml Vial) 0.04 mg IVPUSH Q5M PRN PRN Reason: Excessive sedation or RR < 8 Nystatin (Nystatin Powder 15 Gm Bottle) 1 appl TOPICAL BID [facility]; Protocol Last Admin: 07/19/25 08:06 Dose: 1 appl Ondansetron HCl (Ondansetron Hcl 4 Mg/2 Ml Vial) 4 mg IVPUSH Q8H PRN PRN Reason: Nausea and Vomiting Last Admin: 07/11/25 21:02 Dose: 4 mg Pharmacy Consult (Consult Rx Vancomycin Dosing) 1 each MISCELLANE DAILY PRN PRN Reason: Consult order Pharmacy Consult (Consult Rx Parenteral Nutrition Ordering) 1 each MISCELLANE DAILY PRN PRN Reason: Consult order Polyethylene Glycol (Polyethylene Glycol 3350 17 Gm Powd.Pack) 17 gm PO DAILY [facility] Last Admin: 07/19/25 10:20 Dose: Not Given Prednisone (Prednisone 2.5 Mg Tablet) 2.5 mg PO DAILY [facility] Last Admin: 07/19/25 10:20 Dose: Not Given Sodium Biphosphate/Sodium Phosphate (Sodium Phosphate,[place]-Dibasic 133 Ml Enema) 118 ml NC DAILY PRN PRN Reason: Constipation Sodium Chloride (0.9 % Sodium Chloride Flush 3 Ml Syringe) 3 ml IVFLUSH QSHIFT [facility] Last Admin: 07/19/25 08:07 Dose: 3 ml Sucralfate (Sucralfate Oral Suspension 1 Gm/10 Ml Oral.Susp) 1 gm PO QIDACHS [facility] Last Admin: 07/19/25 10:14 Dose: Not Given Trazodone HCl (Trazodone Hcl 50 Mg Tablet) 50 mg PO BEDTIME [facility] Last Admin: 07/18/25 20:27 Dose: Not Given Vitamin D (Cholecalciferol (Vitamin D3) 25 Mcg Tablet) 25 mcg PO DAILY [facility] Last Admin: 07/19/25 10:16 Dose: Not Given Home Medications ?Medication ?Instructions ?Recorded ?Confirmed ?Last Taken ?Type tramadol 50 mg tablet 50 mg PO BEDTIME PRN moderat e to 10/09/20 07/11/25 Unknown History severe pain acetaminophen 325 mg tablet 650 mg PO Q4H PRN pain or fever 03/13/21 07/11/25 Unknown History rosuvastatin 10 mg tablet 10 mg PO DAILY 03/13/2107/01 Unknown History Held on 06/11/24. Instructions: Resume on 06/14/24. guaifenesin 100 mg/5 mL oral 200 mg PO Q4H PRN Cough 0 05/19/21 07/11/25 Unknown History liquid (Diabetic Tussin EX) prednisone 2.5 mg tablet 2.5 mg PO DAILY 05/19/2110/25 Unknown History amlodipine 10 mg tablet 10 mg PO DAILY 11/16/2307/01 Unknown History bismuth subsalicylate 262 mg/15 mL 524 mg PO Q8H PRN U PSET 11/16/23 07/11/25 Unknown History oral suspension (Pepto-Bismol) STOMACH/NAUSEA ceramides 1,3,6-II (CeraVe topical 1 appl topical BID Dry Skin 11/16/23 07/11/25 Unknown History cream) docusate sodium 100 mg capsule 200 mg PO BID 11/16/23 07/11/25 Unknown History (Colace) famotidine 20 mg tablet 20 mg PO DAILY 11/16/2307/01 Unknown History folic acid 1 mg tablet 1 mg PO SUTUWETHFRSA 3 07/11/25 Unknown History insulin glargine-yfgn 100 unit/mL 3 unit subcut BEDTIM E 11/16/23 07/11/25 Unknown History subcutaneous solution lactulose 10 gram/15 mL oral 30 ml PO DAILY 11/16/23 0 07/11/25 Unknown History solution (Enulose) melatonin 5 mg tablet 5 mg PO BEDTIME PRN Insomnia 11/16/23 07/11/25 Unknown History polyethylene glycol 3350 17 17 g PO DAILY 11/16/2310/25 Unknown History gram/dose oral powder (Miralax) methotrexate sodium 2.5 mg tablet 15 mg PO MO 02/25/24 07/11/25 Unknown History bisacodyl 5 mg tablet 5 mg PO DAILY PRN Constipati on 03/31/24 07/11/25 Unknown History aspirin 81 mg tablet,delayed 81 mg PO DAILY 04/23/24 0 07/11/25 Unknown History release bisacodyl 10 mg rectal suppository 10 mg NC DAILY PRN Constipation 04/23/24 07/11/25 Unknown History bisacodyl 10 mg rectal suppository 10 mg NC Q3D 07/11/25 Unknown History guaifenesin 600 mg tablet, 600 mg PO Q12H PRN Cold Sym ptoms 04/23/24 07/11/25 Unknown History extended release 12 hr (Mucinex) sodium phosphates 19 gram-7 118 ml NC DAILY PRN Consti pation 04/23/24 07/11/25 Unknown History gram/118 mL enema (Fleet Enema) acetaminophen 325 mg tablet 650 mg PO BEDTIME 07/11/25 07/11/25 Unknown History ascorbic acid (vitamin C) 500 mg 500 mg PO DAILY 07/1107/11/25 Unknown History tablet (Vitamin C) bacitracin 500 unit/gram topical 1 appl topical BID 07/11/25 Unknown History ointment cholecalciferol (vitamin D3) 25 25 mcg PO DAILY 07/11/25 Unknown History mcg (1,000 unit) tablet (Vitamin D3) ferrous sulfate 325 mg (65 mg 325 mg PO DAILY 07/11/25 07/11/25 Unknown History iron) tablet insulin lispro 100 unit/mL See Protocol subcut BID 10/2507/11/25 Unknown History subcutaneous solution (Admelog U-100 Insulin lispro) magnesium hydroxide 400 mg/5 mL 30 ml PO BEDTIME PRN C onstipation 07/11/25 07/11/25 Unknown History oral suspension (Milk of Magnesia) trazodone 50 mg tablet 50 mg PO BEDTIME 07/11/25 Unknown History Physical Exam 2 Vital Signs: Vital Signs: Last Vital Signs Temp 97.2 F 07/19/25 11:28 Pulse 97 07/19/25 11:28 Resp 18 07/19/25 11:28 BP 182/76 H 07/19/25 11:28 Pulse Ox 97 07/19/25 11:28 O2 Del Method Room Air 07/19/25 11:28 O2 Flow Rate 2 07/12/25 08:37 BMI result Body Mass Index 25.1 General: Elderly male acute distress, ill appearing and tired appearing Nutritional Appearance: well nourished and overweight Eyes: appearance normal, both eyes and all related structures; Alignment and Position: alignment normal and position normal Neck: No lymphadenopathy, no thyromegaly Resp: bilateral air entry equal, occasional added sounds present Cardio: Regular rate, regular rhythm; Heart sounds: S1 normal heart sound present and S2 normal heart sound present GI: soft, nontender, no guarding, no hepatosplenomegaly : bladder normal to inspection, bladder normal to palpation, no renal angle tenderness Skin: no rashes or lesions noted and elasticity normal Neuro: Sedated, no focal deficits Results Labs 07/19/25 10:12 07/19/25 05:54 Labs: Short CBC 07/19/25 07/19/25 Range/Units 05:54 10:12 WBC 6.3 5.7 (4.8-10.8) X10*3/uL Hgb 8.5 L 9.3 L (14.0-18.0) g/dl Hct 24.8 L 26.7 L (42.0-52.0) % Plt Count 92 L 83 L (160-400) X10*3/uL BMP 07/19/25 05:54 Sodium 145 Potassium 2.6 L* Chloride 110 H Carbon Dioxide 25 BUN 16 Creatinine 0.75 Calcium 7.9 L Liver Function 07/19/25 Range/Units 05:54 Albumin 2.5 L (3.5-5.0) g/dL Microbiology Microbiology Results: Microbiology 07/14/25 09:51 Blood - Venous Blood Culture - Final No growth after 5 days. 07/14/25 16:10 Blood - Venous Blood Culture - Preliminary No growth after 48 hours. 07/10/25 20:01 Blood - Venous Blood Culture - Final Methicillin Res Staph Aureus 07/10/25 20:00 Blood - Venous Blood Culture - Final Staphylococcus aureus Methicillin Res Staph Aureus Assessment and Plan (1) Acute metabolic encephalopathy: Status: Acute (2) Multiple sclerosis: Status: Acute (3) Decubitus ulcer of coccygeal region, stage 2: Status: Acute (4) Acute UTI (urinary tract infection): Status: Acute (5) Duodenal obstruction: Status: Acute (6) Upper GI bleed: Status: Acute (7) Acute respiratory failure: Status: Acute Plan Neuro: Acute encephalopathy possibly due to metabolic encephalopathy Patient has underlying multiple sclerosis bed-bound at baseline, also has history of mood disorder On propofol for sedation, as needed fentanyl for analgesia Close neurological status monitoring in the ICU every hour Cardiac: TTE showed normal LV systolic function, moderate amount of loculated pericardial effusion over right atrium no evidence of tamponade Respiratory: Acute hypoxemic respiratory failure due to Currently on ventilator support On PRVC mode FiO2 50%, PEEP 5, TV 400, RR 20; we will wean oxygen as tolerated. Peak pressures and plateau pressures are under the curve Ventilator management bundle with head end elevation, aspiration precaution, chlorhexidine mouthwash, daily awakening trials, daily spontaneous breathing trials GI: Upper GI bleed: Possibly secondary to trauma from NG tube removal upper GI endoscopy which showed Esophagitis with bleeding esophageal defect at 25 cm suspicious for NG tube trauma (endoclip, hemospray); repeat endoscopic today for ongoing hematemesis showed large amount of clots in the esophagus; hemo spray was applied. CT chest done yesterday and again this morning ruled out any evidence of esophageal perforation. On pantoprazole drip We will transfer the patient to higher level of care with advised endoscopy and thoracic surgery backup to manage ongoing hematemesis. Renal: We will closely monitor I's and O's Avoid nephrotoxic medications Acute Hypokalemia: We will replace as per protocol Acute hypophosphatemia: As the patient is NPO, we will replace as per protocol Heme: Acute blood loss anemia: Secondary to upper GI bleed Monitor H&H q.6 hours closely monitor H&H, transfuse for hemoglobin less than 7 grams/deciliter Endocrine: Blood sugars under control Sliding scale insulin as needed Infectious disease: Blood culture upon admission growing MRSA, continue IV vancomycin for 4 weeks as per ID Continue meropenem for UTI, bilateral pneumonia, has a history of ESBL. TTE negative, possible source of MRSA bacteremia his translocation from the skin given his history of bullous pemphigoid. Patient is immunosuppressed with methotrexate and chronic steroids for his bullous pemphigoid Musculoskeletal: Decubitus ulcer prevention protocol Lines: Peripheral Prophylaxis: SCDs, pantoprazole Total critical care time spent is about 60 minutes on managing this complex critically ill patient with multiple organ failures. Time spent his on post intubation ventilator care, changing ventilator settings, close respiratory system monitoring, sedation monitoring, management of patient's upper GI bleed, review of patient's chart and imaging, maintaining hemodynamic stability at this time is excluding any procedural time
--- NOTE | 2025-07-19 14:39 | P.OP_ITS ---
Operative Note Operative Note Date of Service: 07/19/25 Narrative: Procedure: Esophagogastroduodenoscopy Endoscopist: Maine Mendez MD Indication: UGIB Anesthesia Provider: Dr Adela Cardenas Anesthesia Type: GEA ?? EGD Procedure:?? The procedure, indications, preparation and potential complications were reviewed with the patient, who indicated understanding and gave written informed consent to proceed. A physical exam was performed. Patient was electively intubated for airway protection. IV medications were administered. The endoscope was introduced through the mouth, and advanced to the upper esophagus. The mucosa was carefully examined on slow withdrawal of the endoscope. ? EGD Findings:? * Esophagus:? Large burden of old and new clots in upper esophagus at 23 cm limiting visualization. Despite attempt to flush and suction out the clots the true lumen could not be seen. False lumen created by the esophageal tear was briefly seen with spontaneous bleeding. The previously placed clip could also not be visualized. Hemospray was applied x 3 until no active bleeding was noted. * Stomach:? N/A * Duodenum:? N/A EGD Impressions:? * Previously known esophageal tear with bleeding, clots (hemospray) * Incomplete procedure ?? Recommendations:?? * Pt to remain intubated post procedure * Strict NPO. No NG or OG tube placement * Cont protonix drip * Transfer to tertiary care with advanced endoscopy and thoracic surgery resources for definitive management of esophageal tear and bleeding Above has been reviewed with the patient's son.
[2025-07-19 15:13] LABS: Glucose, Whole Blood 123 mg/dL (60-115)
[2025-07-19 15:30] LABS: Hematocrit 26.1 % (42.0-52.0); Hemoglobin 8.8 g/dl (14.0-18.0); Mean Corpuscular HGB Conc 33.7 g/dl (31.0-36.0); Mean Corpuscular Hemoglobin 31.7 pg (27.0-33.0); Mean Corpuscular Volume 93.9 fL (80.0-98.0); NRBC Abs Auto 0.020 X10*3/uL (0.0-0.012); NRBC Pct Auto 0.3 /100WBC (0.0-0.2); Red Blood Count 2.78 X10*6/uL (4.60-5.80); White Blood Count 6.4 X10*3/uL (4.8-10.8)
[2025-07-19 15:33] LABS: Platelet Count 71 X10*3/uL (160-400)
--- NOTE | 2025-07-19 16:14 | PC.NURSE ---
Received patient from PACU at approx 1425 - assumed care until 1530. Patient intubated - ETT secured with cipriano with RT at bedside, transferred to ventilator. Report received from [facility] DIVER & anesthesia. Propofol continued for sedation, restraints applied (patient attempting to reach for tube - airway protection). See vent assessment & MAR for titration / med details. Clarified with Dr Pritchard - plan to give ordered potassium from 10am orders as per JAN. Bleeding noted in ETT for initial in-line suction - small amt. Order to not put in NG/OG tube per anesthesia & Dr Pritchard r/t risk of further bleeding / tearing. Plan to transfer patient for further surgical intervention - Dr Pritchard. POC glucose done, held insulin - Dr Pritchard made aware of held insulin. Report given to Scot VALENZUELA.
--- NOTE | 2025-07-19 16:39 | P.DS_ITS ---
DS: Providers Provider Date of Service: 07/19/25 Date of admission: 07/10/25 23:28 Date of discharge: 07/19/25 Primary care physician: Get Martin MD Consults: 07/11/25 00:23 Consult to Urology Routine Consulting Provider: [facility] [place] Urology Services Reason for consultation: Replacement of Nunez 07/11/25 17:35 Consult to Wound Care Routine Reason for consultation: stage II to coccyx on admit 07/12/25 07:56 Consult to Gastroenterology Routine Consulting Provider: [facility] – [place] Gastroenterology Services Reason for consultation: coffee ground emesis Has provider been notified: No 07/12/25 13:43 Consult to Infectious Diseases Routine Consulting Provider: [facility] [place] Infectious Disease [facility] Reason for consultation: GPC bacteremia Has provider been notified: No 07/16/25 08:29 Consult to General Surgery Routine Consulting Provider: [facility] – [place] General Surgeons Reason for consultation: abdominal distention, concern for duodnal obstruction DS: Transfer Hospital Acceptance Reason for Transfer: Advanced endoscopist support along with thoracic surgery backup Name of Facility: [facility] Accepting Provider: Dr. Saenz DS: Diagnosis Discharge Diagnosis (1) Acute metabolic encephalopathy: Status: Acute (2) Multiple sclerosis: Status: Acute (3) Decubitus ulcer of coccygeal region, stage 2: Status: Acute (4) Acute UTI (urinary tract infection): Status: Acute (5) Duodenal obstruction: Status: Acute (6) Upper GI bleed: Status: Acute (7) Acute respiratory failure: Status: Acute DS: Summary Hospital Course Hospital Course: 80 years old gentleman with PMH of multiple sclerosis who is chronically bed- bound with chronic indwelling Nunez catheter, past history of bullous pemphigoid on chronic steroids and methotrexate, mood disorder, mixed hyperlipidemia, hypertension, insulin-dependent diabetes mellitus is admitted to the hospital on 07/11/2025 secondary to altered mental status due to sepsis from Staph aureus bacteremia possibly secondary to bacterial translocation from his skin lesions. He was treated with IV vancomycin, and meropenem for possible UTI due to due to history of ESBL UTI. TTE negative for endocarditis, ID recommended IV vancomycin for 4 weeks. Patient had distention of abdomen upon admission, vomiting, with obstipation so x-ray KUB was done which showed possible gastric outlet obstruction and significant distention of the stomach, CT was done which showed similar findings along with proctitis and pneumonia. An NG tube was placed for decompression, on 07/17/2025 patient was complaining of throat pain and wanted his NG tube out. When the NG tube was pulled off patient ended up having hematemesis for which she underwent emergent upper GI endoscopy which showed Esophagitis with bleeding esophageal defect at 25 cm suspicious for NG tube trauma (endoclip, hemospray). CT chest was done yesterday which did not show any evidence of perforation. This morning patient had further episodes of upper GI bleeding, repeat CT chest ruled out perforation, underwent upper GI endoscopy which showed large amount of clots along the upper 1/3 of esophagus. Patient was intubated for airway pro tection, is transferred to ICU postprocedure. Status at Discharge Cognitive/behavioral status at discharge: critical Time Attestation Discharge Coordination Time (in mins): 35 Quality: Safe Use of Opioids Does Pt have an Active Cancer Diagnosis on the Problem List?: No Quality: Stroke Does the patient have a stroke diagnosis?: No Physical Exam Vital Signs: Vital Signs: Last Vital Signs Temp 97.7 F 07/19/25 14:31 Pulse 73 07/19/25 15:22 Resp 16 07/19/25 15:22 BP 91/51 L 07/19/25 15:22 Pulse Ox 100 07/19/25 16:00 O2 Del Method Mechanical Ventil ation 07/19/25 15:22 O2 Flow Rate 2 07/12/25 08:37 FiO2 30 07/19/25 16:00 BMI result Body Mass Index 25.1 General: Elderly male in severe acute distress, ill appearing and tired appearing Nutritional Appearance: well nourished and normal weight Eyes: appearance normal, both eyes and all related structures; Alignment and Position: alignment normal and position normal Neck: No lymphadenopathy, no thyromegaly Resp: bilateral air entry equal, occasional added sounds present Cardio: Regular rate, regular rhythm; Heart sounds: S1 normal heart sound p resent and S2 normal heart sound present GI: soft, nontender, no guarding, no hepatosplenomegaly : bladder normal to inspection, bladder normal to palpation, no renal angle tenderness Skin: no rashes or lesions noted and elasticity normal Neuro: Sedated, unable to do a complete neuro examination DS: Data Data Completed and Pending Completed studies during hospitalization [Text1]: Procedures Change Drainage Device in Bladder, External Approach (02/25/24) Insertion of Endotracheal Airway into Trachea, Via Natural or Artificial Opening Endoscopic (05/14/21) Insertion of Infusion Device into Superior Vena Cava, Percutaneous Approach (05/28/24) Introduction of Vasopressor into Central Vein, Percutaneous Approach (05/28/24) Respiratory Ventilation, Greater than 96 Consecutive Hours (05/14/21) Transfusion of Nonautologous Red Blood Cells into Peripheral Vein, Percutaneous Approach (05/28/24) Ultrasonography of Superior Vena Cava, Guidance (05/28/24) Labs on day of discharge: Laboratory Results - last 24 hr 07/18/25 07/18/25 07/18/25 20:02 20:06 22:37 WBC RBC Hgb POC Hgb (Calc) Hct POC Hct MCV MCH MCHC RDW Plt Count MPV Immature Gran % (Auto) Neut % (Auto) Lymph % (Auto) [place] % (Auto) Eos % (Auto) Baso % (Auto) Lymph # (Auto) [place] # (Auto) Eos # (Auto) Baso # (Auto) Abs Immat Gran (auto) Absolute Neuts (auto) Absolute Nucleated RBC Nucleated RBC % (auto) Neutrophils % (Manual) Band Neutrophils % Lymphocytes % (Manual) Atypical Lymphs % (Man) Monocytes % (Manual) Eosinophils % (Manual) Metamyelocytes % Abs Neuts (Manual) Lymphocytes # (Manual) Atyp Lymphs # (Manual) Monocytes # (Manual) Eosinophils # (Manual) Metamyelocytes # Platelet Estimate Plt Morphology Comment RBC Morphology Brent Cells Hold Purple Top POC Std Base Excess POC O2 Sat (Calc) POC ABG Total CO2 POC Capillary pH POC Capillary pCO2 POC Cap HCO3 (Calc) POC Sodium Sodium POC Potassium Potassium Chloride Carbon Dioxide Anion Gap BUN Creatinine Estim Creat Clear Calc Estimated GFR POC Glucose 161 H 152 H Random Glucose Calcium Phosphorus Magnesium Albumin Random Vancomycin 15.9 Blood Type Antibody Screen Crossmatch 07/19/25 07/19/25 07/19/25 05:54 07:27 10:12 WBC 6.3 5.7 RBC 2.67 L 2.87 L Hgb 8.5 L 9.3 L POC Hgb (Calc) Hct 24.8 L 26.7 L POC Hct MCV 92.9 93.0 MCH 31.8 32.4 MCHC 34.3 34.8 RDW 15.9 15.8 Plt Count 92 L 83 L MPV 11.2 10.1 Immature Gran % (Auto) Cancelled Neut % (Auto) Cancelled Lymph % (Auto) Cancelled [place] % (Auto) Cancelled Eos % (Auto) Cancelled Baso % (Auto) Cancelled Lymph # (Auto) Cancelled [place] # (Auto) Cancelled Eos # (Auto) Cancelled Baso # (Auto) Cancelled Abs Immat Gran (auto) Cancelled Absolute Neuts (auto) Cancelled Absolute Nucleated RBC 0.020 H 0.000 Nucleated RBC % (auto) 0.3 H 0.0 Neutrophils % (Manual) 79 H Band Neutrophils % 0 L Lymphocytes % (Manual) 10 L Atypical Lymphs % (Man) 2 Monocytes % (Manual) 4 Eosinophils % (Manual) 4 Metamyelocytes % 1 Abs Neuts (Manual) 5.0 Lymphocytes # (Manual) 0.6 L Atyp Lymphs # (Manual) 0.1 Monocytes # (Manual) 0.3 Eosinophils # (Manual) 0.3 Metamyelocytes # 0.1 Platelet Estimate DECREASED Plt Morphology Comment NORMAL RBC Morphology NOTED Brent Cells 2+ (3-5) Hold Purple Top SEE NOTE POC Std Base Excess POC O2 Sat (Calc) POC ABG Total CO2 POC Capillary pH POC Capillary pCO2 POC Cap HCO3 (Calc) POC Sodium Sodium 145 POC Potassium Potassium 2.6 L* Chloride 110 H Carbon Dioxide 25 Anion Gap 13 BUN 16 Creatinine 0.75 Estim Creat Clear Calc 89.0 Estimated GFR > 60 POC Glucose 140 H Random Glucose 154 H Calcium 7.9 L Phosphorus 1.6 L Magnesium 1.6 Albumin 2.5 L Random Vancomycin Blood Type B Positive Antibody Screen NEGATIVE Crossmatch See Detail 07/19/25 07/19/25 07/19/25 11:48 12:21 14:48 WBC 6.4 RBC 2.78 L Hgb 8.8 L POC Hgb (Calc) TNP Hct 26.1 L POC Hct < 15 L* MCV 93.9 MCH 31.7 MCHC 33.7 RDW 15.5 Plt Count 71 L MPV 11.1 Immature Gran % (Auto) Neut % (Auto) Lymph % (Auto) [place] % (Auto) Eos % (Auto) Baso % (Auto) Lymph # (Auto) [place] # (Auto) Eos # (Auto) Baso # (Auto) Abs Immat Gran (auto) Absolute Neuts (auto) Absolute Nucleated RBC 0.020 H Nucleated RBC % (auto) 0.3 H Neutrophils % (Manual) Band Neutrophils % Lymphocytes % (Manual) Atypical Lymphs % (Man) Monocytes % (Manual) Eosinophils % (Manual) Metamyelocytes % Abs Neuts (Manual) Lymphocytes # (Manual) Atyp Lymphs # (Manual) Monocytes # (Manual) Eosinophils # (Manual) Metamyelocytes # Platelet Estimate Plt Morphology Comment RBC Morphology Bascom Cells Hold Purple Top POC Std Base Excess -11 L POC O2 Sat (Calc) TNP POC ABG Total CO2 15 L POC Capillary pH 7.41 POC Capillary pCO2 22 L POC Cap HCO3 (Calc) 14 L POC Sodium 140 Sodium POC Potassium 3.1 L Potassium Chloride Carbon Dioxide Anion Gap BUN Creatinine Estim Creat Clear Calc Estimated GFR POC Glucose 140 H 90 Random Glucose Calcium Phosphorus Magnesium Albumin Random Vancomycin Blood Type Antibody Screen Crossmatch 07/19/25 15:10 WBC RBC Hgb POC Hgb (Calc) Hct POC Hct MCV MCH MCHC RDW Plt Count MPV Immature Gran % (Auto) Neut % (Auto) Lymph % (Auto) [place] % (Auto) Eos % (Auto) Baso % (Auto) Lymph # (Auto) [place] # (Auto) Eos # (Auto) Baso # (Auto) Abs Immat Gran (auto) Absolute Neuts (auto) Absolute Nucleated RBC Nucleated RBC % (auto) Neutrophils % (Manual) Band Neutrophils % Lymphocytes % (Manual) Atypical Lymphs % (Man) Monocytes % (Manual) Eosinophils % (Manual) Metamyelocytes % Abs Neuts (Manual) Lymphocytes # (Manual) Atyp Lymphs # (Manual) Monocytes # (Manual) Eosinophils # (Manual) Metamyelocytes # Platelet Estimate Plt Morphology Comment RBC Morphology Brent Cells Hold Purple Top POC Std Base Excess POC O2 Sat (Calc) POC ABG Total CO2 POC Capillary pH POC Capillary pCO2 POC Cap HCO3 (Calc) POC Sodium Sodium POC Potassium Potassium Chloride Carbon Dioxide Anion Gap BUN Creatinine Estim Creat Clear Calc Estimated GFR POC Glucose 123 H Random Glucose Calcium Phosphorus Magnesium Albumin Random Vancomycin Blood Type Antibody Screen Crossmatch Preliminary micro results at discharge 07/14/25 16:10 Blood Culture - Preliminary Blood - Venous No growth after 48 hours. Discharge Plan Discharge Anticipated Discharge Date/Time: 07/19/25 17:48 Patient Disposition: [facility] Discharge Diagnosis: Upper GI bleed Referrals: Get Martin MD [Primary Care Provider, Internal Medicine] - 1 Week Discharge Medications: New meropenem 1 gram Recon Soln 1 g IVPUSH Q12H Qty: 25 0RF Continued ceramides 1,3,6-II [CeraVe] Cream 1 appl TOPICAL BID methotrexate sodium 2.5 mg Tablet 15 mg PO MO bacitracin 500 unit/gram Ointment 1 appl TOPICAL BID Discontinued tramadol 50 mg Tablet 50 mg PO BEDTIME PRN (Reason: moderate to severe pain) acetaminophen 325 mg Tablet 650 mg PO Q4H PRN (Reason: pain or fever) Rx Instructions: pain or fever rosuvastatin 10 mg Tablet 10 mg PO DAILY prednisone 2.5 mg Tablet 2.5 mg PO DAILY guaifenesin [Diabetic Tussin EX] 100 mg/5 mL Liquid 200 mg PO Q4H PRN (Reason: Cough) famotidine 20 mg Tablet 20 mg PO DAILY amlodipine 10 mg Tablet 10 mg PO DAILY bismuth subsalicylate [Pepto-Bismol] 262 mg/15 mL Suspension 524 mg PO Q8H PRN (Reason: UPSET STOMACH/NAUSEA) docusate sodium [Colace] 100 mg Capsule 200 mg PO BID folic acid 1 mg Tablet 1 mg PO SUTUWETHFRSA polyethylene glycol 3350 [Miralax] 17 gram/dose Powder 17 g PO DAILY lactulose [Enulose] 10 gram/15 mL Solution 30 ml PO DAILY melatonin 5 mg Tablet 5 mg PO BEDTIME PRN (Reason: Insomnia) insulin glargine-yfgn 100 unit/mL Solution 3 unit SUBCUT BEDTIME bisacodyl 5 mg Tablet 5 mg PO DAILY PRN (Reason: Constipation) carvedilol 6.25 mg Tablet 6.25 mg PO BID Qty: 60 0RF Protocol: Hold for SBP/HR < HOLD for SBP < : 90 HOLD for HR < : 60 gabapentin 300 mg Capsule 300 mg PO TID Qty: 90 0RF aspirin 81 mg Tablet,Delayed Release (Dr/Ec) 81 mg PO DAILY bisacodyl 10 mg Suppository 10 mg SD DAILY PRN (Reason: Constipation) bisacodyl 10 mg Suppository 10 mg SD Q3D Fleet Enema 19-7 gram/118 mL Enema 118 ml SD DAILY PRN (Reason: Constipation) Rx Instructions: if no result from dulcolax within 2 hours guaifenesin [Mucinex] 600 mg Tablet Extended Release 12hr 600 mg PO Q12H PRN (Reason: Cold Symptoms) insulin lispro [Admelog U-100 Insulin lispro] 100 unit/mL solution See Protocol subcut BID Protocol: Insulin Correction Scale Less than or equal to 110 ---- Give (units): 0 111 to 150 Give (units): 0 151 to 200 Give (units): 2 201 to 250 Give (units): 2 251 to 300 Give (units): 4 301 to 350 Give (units): 6 Greater than 350 Give (units): 8 Call MD if Blood Glucose > : 400 acetaminophen 325 mg Tablet 650 mg PO BEDTIME trazodone 50 mg Tablet 50 mg PO BEDTIME magnesium hydroxide [Milk of Magnesia] 400 mg/5 mL Suspension 30 ml PO BEDTIME PRN (Reason: Constipation) ascorbic acid (vitamin C) [Vitamin C] 500 mg Tablet 500 mg PO DAILY ferrous sulfate 325 mg (65 mg iron) Tablet 325 mg PO DAILY cholecalciferol (vitamin D3) [Vitamin D3] 25 mcg (1,000 unit) Tablet 25 mcg PO DAILY Discharge Orders: Discharge Order (Routine); Ordered 07/19/25 Ordered By: Adan Pritchard Activity on Discharge: Rest with bed elevated Stand Alone Forms: Patient Portal Discharge page Print Language: Urdu Care Plan Goals: Discharge to acute care facility Health Concerns: Critically ill, discharged to acute care facility Plan of Treatment: Transferred to higher level of care for possible need for advanced endoscopic team with thoracic surgery backup Assessment: Neuro: Acute encephalopathy possibly due to metabolic encephalopathy Patient has underlying multiple sclerosis bed-bound at baseline, also has history of mood disorder On propofol for sedation, as needed fentanyl for analgesia Close neurological status monitoring in the ICU every hour Cardiac: TTE showed normal LV systolic function, moderate amount of loculated pericardial effusion over right atrium no evidence of tamponade Respiratory: Acute hypoxemic respiratory failure due to Currently on ventilator support On PRVC mode FiO2 50%, PEEP 5, TV 400, RR 20; we will wean oxygen as tolerated. Peak pressures and plateau pressures are under the curve Ventilator management bundle with head end elevation, aspiration precaution, chlorhexidine mouthwash, daily awakening trials, daily spontaneous breathing trials GI: Upper GI bleed: Possibly secondary to trauma from NG tube removal upper GI endoscopy which showed Esophagitis with bleeding esophageal defect at 25 cm suspicious for NG tube trauma (endoclip, hemospray); repeat endoscopic today for ongoing hematemesis showed large amount of clots in the esophagus; hemo spray was applied. CT chest done yesterday and again this morning ruled out any evidence of esophageal perforation. On pantoprazole drip We will transfer the patient to higher level of care with advised endoscopy and thoracic surgery backup to manage ongoing hematemesis. Renal: We will closely monitor I's and O's Avoid nephrotoxic medications Acute Hypokalemia: We will replace as per protocol Acute hypophosphatemia: As the patient is NPO, we will replace as per protocol Heme: Acute blood loss anemia: Secondary to upper GI bleed Monitor H&H q.6 hours closely monitor H&H, transfuse for hemoglobin less than 7 grams/deciliter Endocrine: Blood sugars under control Sliding scale insulin as needed Infectious disease: Blood culture upon admission growing MRSA, continue IV vancomycin for 4 weeks as per ID Continue meropenem for UTI, bilateral pneumonia, has a history of ESBL. TTE negative, possible source of MRSA bacteremia his translocation from the skin given his history of bullous pemphigoid. Patient is immunosuppressed with methotrexate and chronic steroids for his bullous pemphigoid Musculoskeletal: Decubitus ulcer prevention protocol Lines: Peripheral Prophylaxis: SCDs, pantoprazole
[2025-07-19 16:51] LABS: Glucose, Whole Blood 111 mg/dL (60-115)
--- NOTE | 2025-07-19 16:56 | W.PM.CCHP ---
Procedures Date of Service Date of Service: 07/19/25 Central Line Placement Left IJ: Consent for Procedure: Emergent-no informed consent obtained Time out performed: Yes Sterile Technique Used: Yes Patient placed on monitor/pulse ox: Yes MD prep: mask, gown and gloves Central line prep: Povidone-Iodine 1%, Chlorhexidine scrub and sterile drapes applied Ultrasound used for placement: Yes Central line lumen inserted: single Post procedure: sutured in place, good blood return, all ports aspirated, flushed, capped and sterile dressing applied Post procedure x-ray: tip of catheter in good position and no pneumothorax seen Patient tolerated procedure: no complications Complications: none
[2025-07-19 18:23] LABS: Glucose, Whole Blood 107 mg/dL (60-115)
--- NOTE | 2025-07-19 20:34 | PC.NURSE ---
Assumed care at 1600. Upon initial assessment, patient intubated and sedated, propofol gtt infusing and titrated per MAR. Patient with positive cough and gag. Withdrawals from pain. Grimaces with oral care, weakly VARGAS. SR on tele, HR 60s-70s. MAP >65. Lung sounds rhonchorous throughout, see vent assessment. Abdomen soft and flat, hypoactive bowel sounds x4. Protonix gtt infusing per MAR. Nunez catheter in place draining concentrated urine. Skin pale but warm, various bruises, DTI to sacrum and maceration to isac area, see wound notes. Cordis central line placed by MD Pritchard and verified by pCXR. Per MD Pritchard, Dr. Pollard at [place] accepting patient for higher level of care (see discharge summary). Report called to Nico VALENZUELA at [facility], [place] 7-I, Room 3 at 1745. Patient family updated by this RN several times via phone, family educated on transfer to [facility]. [facility] [email or web address] crew to bedside at approx 1900 with [email or web address] crew. Report given to [employer]?crew at that time. Patient?with low K+ (2.4) via bedside draw by Jenna, 40 mEq K+ ordered by SAUL Landa and hung via [employer] crew for transport. Patient departed ICU with [employer] crew at approx 1945. Family called and updated by this RN.
== END 2025-07-19 19:45 | disposition short-term general hospital (02) | DRG 698 ==
LOC: HO.ED 23:26 → HO.EDOVER 23:56 → HO.S3 07-11 12:57 → HO.ICU 07-19 13:37
PROVIDERS: Internal Medicine; Physician Assistant; Physician Assistant Medical; Admitting Provider Student in an Organized Health Care Education/Training Program; Emergency Provider Emergency Medicine Emergency Medical Services; PCP Family Medicine Geriatric Medicine; Referring Provider Surgery; Visit Provider Internal Medicine Critical Care Medicine
PROC: 0DJ08ZZ Inspection of Upper Intestinal Tract, Via Natural or Artificial Opening Endoscopic (ICD-10-PCS; CPT 43235; principal; 2025-07-18 13:00)
DX: T83.511A Infection and inflammatory reaction due to indwelling urethral catheter, initial encounter (principal); G93.41 Metabolic encephalopathy; R65.20 Severe sepsis without septic shock; K22.11 Ulcer of esophagus with bleeding; N17.9 Acute kidney failure, unspecified; L12.0 Bullous pemphigoid; N31.9 Neuromuscular dysfunction of bladder, unspecified; G35 Multiple sclerosis; F03.90 Unspecified dementia, unspecified severity, without behavioral disturbance, psychotic disturbance, mood disturbance, and anxiety; I10 Essential (primary) hypertension; E78.2 Mixed hyperlipidemia; K29.70 Gastritis, unspecified, without bleeding; Z20.822 Contact with and (suspected) exposure to COVID-19; B95.62 Methicillin resistant Staphylococcus aureus infection as the cause of diseases classified elsewhere; D63.8 Anemia in other chronic diseases classified elsewhere; Z74.01 Bed confinement status; N39.0 Urinary tract infection, site not specified; Z87.440 Personal history of urinary (tract) infections; Z87.891 Personal history of nicotine dependence; Z79.631 Long term (current) use of antimetabolite agent; Z79.899 Other long term (current) drug therapy
CPT/HCPCS: 36415; 71045; 71250; 74018; 74176; 74177; 80048; 80053; 80202; 82040; 82565; 82947; 83605; 83735; 84100; 84484; 85007; 85027; 85610; 86850; 86900; 86901; 86923; 87040; 87077; 87147; 87186; 87205; 87493; 87637; 93005; 93306; 94002; 99285; J0696; J1308; J1650; J2003; J2185; J2270; J2405; J2470; J2704; J3010; J3230; J3373; J3374; J3480; J7120; P9016; Q9957; Q9967

== ENCOUNTER → 2025-07-10 16:00 | Outpatient (BNV) | payer OTHER, SELFPAY | PROVIDERS: Admitting Provider Student in an Organized Health Care Education/Training Program; Emergency Provider Emergency Medicine Emergency Medical Services; PCP Family Medicine Geriatric Medicine; Visit Provider Internal Medicine Cardiovascular Disease | DX: R00.0 Tachycardia, unspecified (principal); I49.3 Ventricular premature depolarization | CPT/HCPCS: 93010 ==

== ENCOUNTER 2025-07-10 23:28 | Outpatient (BNV) | payer OTHER, SELFPAY | END 2025-07-13 10:13 | PROVIDERS: Admitting Provider Student in an Organized Health Care Education/Training Program; Emergency Provider Emergency Medicine Emergency Medical Services; PCP Family Medicine Geriatric Medicine; Visit Provider Internal Medicine Cardiovascular Disease | DX: R78.81 Bacteremia (principal) | CPT/HCPCS: 93306 ==

== ENCOUNTER 2025-07-10 23:28 | Outpatient (BNV) | payer OTHER, SELFPAY | END 2025-07-11 03:07 | PROVIDERS: Admitting Provider Student in an Organized Health Care Education/Training Program; Emergency Provider Emergency Medicine Emergency Medical Services; PCP Family Medicine Geriatric Medicine; Visit Provider Internal Medicine Cardiovascular Disease | DX: I49.3 Ventricular premature depolarization (principal); R00.0 Tachycardia, unspecified | CPT/HCPCS: 93010 ==

== ENCOUNTER 2025-07-10 23:28 | Outpatient (BNV) | payer OTHER, SELFPAY | END 2025-07-18 14:04 | PROVIDERS: Admitting Provider Student in an Organized Health Care Education/Training Program; Emergency Provider Emergency Medicine Emergency Medical Services; PCP Family Medicine Geriatric Medicine; Visit Provider Radiology Diagnostic Radiology | DX: J90 Pleural effusion, not elsewhere classified (principal); R14.0 Abdominal distension (gaseous) | CPT/HCPCS: 71250; 74018 ==

== ENCOUNTER 2025-07-10 23:28 | Outpatient (BNV) | payer OTHER, SELFPAY | END 2025-07-12 13:42 | PROVIDERS: Admitting Provider Student in an Organized Health Care Education/Training Program; Emergency Provider Emergency Medicine Emergency Medical Services; PCP Family Medicine Geriatric Medicine; Visit Provider Radiology Diagnostic Radiology | DX: R14.0 Abdominal distension (gaseous) (principal) | CPT/HCPCS: 74018; 74177 ==

== ENCOUNTER 2025-07-10 23:28 | Outpatient (BNV) | payer OTHER, SELFPAY | END 2025-07-14 15:37 | PROVIDERS: Admitting Provider Student in an Organized Health Care Education/Training Program; Emergency Provider Emergency Medicine Emergency Medical Services; PCP Family Medicine Geriatric Medicine; Visit Provider Internal Medicine Cardiovascular Disease | DX: I49.3 Ventricular premature depolarization (principal) | CPT/HCPCS: 93010 ==

== ENCOUNTER 2025-07-10 23:28 | Outpatient (BNV) | payer OTHER, SELFPAY | END 2025-07-19 09:13 | PROVIDERS: Admitting Provider Student in an Organized Health Care Education/Training Program; Emergency Provider Emergency Medicine Emergency Medical Services; PCP Family Medicine Geriatric Medicine; Visit Provider Radiology Diagnostic Radiology | DX: J90 Pleural effusion, not elsewhere classified (principal); J98.11 Atelectasis | CPT/HCPCS: 71045; 71250 ==

== ENCOUNTER 2025-07-10 23:28 | Outpatient (BNV) | payer OTHER, SELFPAY | END 2025-07-15 11:26 | PROVIDERS: Admitting Provider Student in an Organized Health Care Education/Training Program; Emergency Provider Emergency Medicine Emergency Medical Services; PCP Family Medicine Geriatric Medicine; Visit Provider Radiology Diagnostic Radiology | DX: R14.0 Abdominal distension (gaseous) (principal); J98.11 Atelectasis | CPT/HCPCS: 71045; 74176 ==

== ENCOUNTER 2025-07-10 23:28 | Outpatient (BNV) | payer OTHER, SELFPAY | END 2025-07-12 10:50 | PROVIDERS: Admitting Provider Student in an Organized Health Care Education/Training Program; Emergency Provider Emergency Medicine Emergency Medical Services; PCP Family Medicine Geriatric Medicine; Visit Provider Internal Medicine Cardiovascular Disease | DX: R00.0 Tachycardia, unspecified (principal); I49.3 Ventricular premature depolarization | CPT/HCPCS: 93010 ==

== ENCOUNTER → 2025-07-10 23:28 | Outpatient (BNV) | payer OTHER, SELFPAY | PROVIDERS: Admitting Provider Student in an Organized Health Care Education/Training Program; Emergency Provider Emergency Medicine Emergency Medical Services; PCP Family Medicine Geriatric Medicine; Visit Provider Surgery | DX: K31.5 Obstruction of duodenum (principal) | CPT/HCPCS: 99232 ==

== ENCOUNTER → 2025-07-10 23:28 | Outpatient (BNV) | payer OTHER, SELFPAY | PROVIDERS: Admitting Provider Student in an Organized Health Care Education/Training Program; Emergency Provider Emergency Medicine Emergency Medical Services; PCP Family Medicine Geriatric Medicine; Visit Provider Urology | DX: N39.0 Urinary tract infection, site not specified (principal); Z97.8 Presence of other specified devices | CPT/HCPCS: 51703; 99222 ==

== ENCOUNTER → 2025-07-10 23:28 | Outpatient (BNV) | payer OTHER, SELFPAY | PROVIDERS: Admitting Provider Student in an Organized Health Care Education/Training Program; Emergency Provider Emergency Medicine Emergency Medical Services; PCP Family Medicine Geriatric Medicine; Visit Provider Internal Medicine Critical Care Medicine | DX: G93.41 Metabolic encephalopathy (principal); G35 Multiple sclerosis; L89.152 Pressure ulcer of sacral region, stage 2; N39.0 Urinary tract infection, site not specified; K31.5 Obstruction of duodenum; K92.2 Gastrointestinal hemorrhage, unspecified; J96.00 Acute respiratory failure, unspecified whether with hypoxia or hypercapnia | CPT/HCPCS: 36556; 99239; 99291 ==

== ENCOUNTER → 2025-07-10 23:28 | Outpatient (BNV) | payer OTHER, SELFPAY | PROVIDERS: Admitting Provider Student in an Organized Health Care Education/Training Program; Emergency Provider Emergency Medicine Emergency Medical Services; PCP Family Medicine Geriatric Medicine; Visit Provider Internal Medicine | DX: R78.81 Bacteremia (principal) | CPT/HCPCS: 99232 ==

== ENCOUNTER → 2025-07-10 23:28 | Outpatient (BNV) | payer OTHER, SELFPAY | PROVIDERS: Admitting Provider Student in an Organized Health Care Education/Training Program; Emergency Provider Emergency Medicine Emergency Medical Services; PCP Family Medicine Geriatric Medicine; Visit Provider Internal Medicine | DX: K92.0 Hematemesis (principal); K59.00 Constipation, unspecified; A41.9 Sepsis, unspecified organism; R78.81 Bacteremia | CPT/HCPCS: 99232 ==

== ENCOUNTER → 2025-07-10 23:28 | Outpatient (BNV) | payer OTHER, SELFPAY | PROVIDERS: Admitting Provider Student in an Organized Health Care Education/Training Program; Emergency Provider Emergency Medicine Emergency Medical Services; PCP Family Medicine Geriatric Medicine; Visit Provider Student in an Organized Health Care Education/Training Program | DX: Z97.8 Presence of other specified devices (principal); N31.9 Neuromuscular dysfunction of bladder, unspecified; R78.81 Bacteremia | CPT/HCPCS: 99233 ==

== ENCOUNTER 2025-08-09 08:36 | Inpatient (IN) | payer OTHER, SELFPAY ==
[2025-08-09] VITALS (20 sets, daily range): BP systolic 72–137; BP diastolic 33–60; PULSE 79–105; RESP 12–17; TEMP 36.5–37.6; O2SAT 94–100; BMI 22.5
--- NOTE | ~2025-08-09 | CT_ITS ---
EXAMINATION: CT ABDOMEN AND PELVIS WITH CONTRAST CLINICAL INFORMATION: Hematuria. Nunez catheter obstruction. COMPARISON: July 15, 2025. TECHNIQUE: Multidetector volumetric images were obtained from the superior aspect of the liver through the pubic symphysis following administration 85 mL of Omnipaque 350 intravenous contrast. Sagittal and coronal reformatted images were obtained on the technologist's workstation. Oral contrast: No This CT examination was performed using dose optimization techniques as appropriate, variously including the following: *Automated exposure control *Adjustment of mA and/or kV according to patient size (this includes techniques or standardized protocols for targeted exams where dose is matched to indication/reason for exam; i.e. extremities or head) *Use of iterative reconstruction technique DLP: 619 mGy centimeter. FINDINGS: LUNG BASES: Patchy and linear attenuation, lung bases right middle lung lobe and lingula. Small volume left sided pleural effusion. Questionable 3 mm pulmonary nodule, right lung base.. LIVER, GALLBLADDER, AND BILIARY TREE: Liver measures 10 cm. No focal lesion.. Gallbladder is fluid-filled mildly prominent. There is a 3 mm gallbladder wall. No pericholecystic fluid collection. Common bile duct measures 6 mm and then in likely common channel with the main pancreatic duct. PANCREAS: Main pancreatic duct at the head of the pancreas measures 6 mm. No peripancreatic fluid collection. SPLEEN: 8 cm. No focal mass. ADRENAL GLANDS: No nodular lesions. KIDNEYS AND URETERS: No hydronephrosis. No gross nephrolithiasis. Normal enhancement pattern of the renal parenchyma. 1.3 cm exophytic thin septated cystic lesion, lower pole left kidney. BLADDER: Trabeculated bladder wall. Intraluminal hyperdensity in a dependent portion of the lumen. Gas in the periphery of the bladder. GASTROINTESTINAL TRACT: There is an edematous wall of the rectum. There is extraluminal gas in the right lateral perirectal fat. There is abundant stool in the large intestine. No intestinal obstruction pattern. There are 17 mm linear metallic foreign bodies, one in the duodenal jejunal junction and the other one in the cecum. No ascites. No peripheral enhancing fluid collection.. ABDOMINAL WALL: Probable left lateral abdominal wall defect containing eventration/herniation of the intra-abdominal organs. LYMPH NODES: No gross mesenteric or retroperitoneal lymphadenopathy. VASCULAR: Calcified plaques in the thoracic aorta abdominal aorta and iliac arteries femoral and superficial femoral arteries and at the origin of the mesenteric arteries and main renal arteries. No aneurysm or dissection, abdominal aorta. Calcified plaques in the coronary arteries. PELVIC VISCERA: Heterogeneous nodular enlarged prostate gland containing a balloon inflated Nunez catheter. OSSEOUS STRUCTURES: Multilevel thoracolumbar spondylosis. Old superior endplate compression deformity representing 20% volume loss at L1. Incomplete ankylosis L4-5 and L5-S1. Chondrocalcinosis at multiple levels. Osteopenia versus osteoporosis. CT/CT abdomen pelvis w IV con IMPRESSION: Nunez catheter balloon inflated in the prostatic urethra with likely blood products layering in the urinary bladder lumen and likely post instrumentation gas. Trabeculated urinary bladder wall. Extraluminal gas right lateral perirectal concerning for perforation. Metallic foreign bodies at the duodenal jejunal junction and cecum. Eventration, left lateral abdominal wall. Left-sided pleural effusion and compression atelectasis versus airspace disease, lung bases. Questionable 4 mm pulmonary nodule right lung base. Discussed with the emergency physician metal forger's assistant, Fadumo Castañeda at 11:40 AM on August 09, 2025. [ Fleischner guidelines were followed. Electronically signed by: Blas Gould MD 08/09/2025 12:05 PM EDT RP
--- NOTE | 2025-08-09 08:54 | ED.GENADULT ---
HPI - General Adult General Chief complaint: Urogenital-Male Stated complaint: carty cath replacement Time Seen by Provider: 08/09/25 08:38 Source: patient and EMS Mode of arrival: EMS Limitations: no limitations History of Present Illness ED Provider: FADUMO CASTAÑEDA PA-C HPI narrative: 80-year-old male with pmhx significant for multiple sclerosis, diabetes, previous ID, dementia, chronic indwelling carty catheter due to urinary retention presents to the ED today via EMS from shelter for carty catheter evaluation. Per EMS, staff at nursing facility attempted to change his carty catheter yesterday. Since this time, there has not been much urine noted in his Carty catheter bag. This morning there was perez blood in Carty bag with clotting, prompting transfer to emergency department. He is not on anticoagulation. At present, reports nausea without vomiting and abdominal discomfort. No fever, chills. Related Data Home Medications ?Medication ?Instructions ?Recorded ?Confirmed ceramides 1,3,6-II (CeraVe topical 1 appl topical BID Dry Skin 11/16/23 07/11/25 cream) methotrexate sodium 2.5 mg tablet 15 mg PO MO 02/25/24 07/11/25 bacitracin 500 unit/gram topical 1 appl topical BID 07/11/25 07/11/25 ointment Previous Rx's ?Medication ?Instructions ?Recorded meropenem 1 gram intravenous 1 g IVPUSH Q12H #25 ea 07/19/25 solution Allergies Allergy/AdvReac Type Severity Reaction Status Date / Time Benzodiazepines Allergy Unknown UNKNOWN Verified 08/09/25 08:50 (BENZODIAZEPINES) dalfampridine (From AMPYRA) Allergy Unknown UNKNOWN Verified 08/09/25 08:50 duloxetine (From CYMBALTA) Allergy Unknown UNKNOWN Verified 08/09/25 08:50 ezetimibe (From ZETIA) Allergy Unknown UNKNOWN Verified 08/09/25 08:50 niacin (NIACIN) Allergy Unknown UNKNOWN Verified 08/09/25 08:50 pravastatin (PRAVASTATIN) Allergy Unknown UNKNOWN Verified 08/09/25 08:50 Pafrxdn-SSX-SgU Reductase Allergy Unknown UNKNOWN Verified 08/09/25 08:50 Inhibitor ([id number] REDUCTASE INHIBITOR) lorazepam (From ATIVAN) AdvReac Severe EXCESSIVE Verified 08/09/25 08:50 SEDATION doxycycline (DOXYCYCLINE) AdvReac Mild esophogeal Verified 08/09/25 08:50 iritation methylprednisolone (From AdvReac Mild heartburn Verified 08/09/25 08:50 SOLU-MEDROL) ertapenem (From INVANZ) AdvReac Unknown possible Verified 08/09/25 08:50 cause of bullous pemphigoid Review of Systems Review of Systems: Yes all other systems are reviewed and are negative [facility] Past Medical History Attestation statement: The following information was validated with the patient. Source: old records reviewed and nursing notes reviewed Medical History Steroid dependence EDWARD (acute kidney injury) UTI (urinary tract infection) due to urinary indwelling Carty catheter Bullous pemphigoid Decubitus ulcer of coccygeal region, stage 2 Acute hypotension Sepsis Aspiration pneumonitis Recurrent UTI (urinary tract infection) Hypotonic neurogenic bladder Lytic lesion of bone on x-ray Wound of foot Anemia Septic shock Shoulder pain Constipation Hematuria Multiple sclerosis Depression Diabetes mellitus type 2 in obese Chronic pain syndrome BPH (benign prostatic hyperplasia) Dehydration Chronic renal failure Urinary tract infection Surgical History Hx of removal of cyst Family History Family History Family/Other Heart attack Father Diabetes Social History Social History Household Members: Unknown / Unable to assess Household Members Other:: lives at [facility] in [place] Housing: [facility] Housing Other:: [facility] Unable to assess alcohol history related to: Unable to respond Alcohol intake: current Alcohol intake frequency: holidays/special occasions only Alcohol type: hard liquor Comment: BEDFAST Patient Tobacco Use Status: Former Tobacco user Cigarette Packs Per Day: 1 Smoked in Last 30 Days: No Use of substances other than those prescribed or required for medical reasons: No Advance Directives: Yes Advance Directives on File: Yes Advance Directives Date on File: 10/13/20 Nutrition Risks: No Nutritional Risk service: Yes Current occupational status: retired Physical Exam ED Vital Signs: Vital Signs - 24 hr 08/09/25 08:39 08/09/25 11:37 08/09/25 12:29 Temperature 99.7 F 99.5 F 98.1 F Pulse Rate 104 H 104 H 98 Respiratory Rate 14 16 17 Blood Pressure 134/57 L 137/51 L 117/48 L Pulse Oximetry 94 96 95 Oxygen Delivery Method Room Air Room Air Room Air 08/09/25 14:34 08/09/25 15:50 08/09/25 15:54 Temperature Pulse Rate 89 89 87 Respiratory Rate 16 17 15 Blood Pressure 109/44 L 84/37 L 81/33 L Pulse Oximetry 100 98 99 Oxygen Delivery Method Room Air Room Air Room Air 08/09/25 15:59 08/09/25 16:02 08/09/25 16:06 Temperature Pulse Rate 88 89 94 Respiratory Rate 16 15 16 Blood Pressure 72/39 L 88/37 L 91/54 L Pulse Oximetry 99 100 99 Oxygen Delivery Method Room Air Room Air Room Air 08/09/25 16:09 08/09/25 16:43 Temperature 99 F Pulse Rate 88 86 Respiratory Rate 15 17 Blood Pressure 95/39 L 110/37 L Pulse Oximetry 99 99 Oxygen Delivery Method Room Air Room Air BMI result Body Mass Index 22.5 vital signs stable General: thin, chronically ill appearing, pale Skin: Warm, dry, intact Head: Normocephalic, atraumatic. EENT: Hearing is intact b/l. Conjunctiva clear. Sclera is anicteric. PERRLA. EOM intact. Moist mucous membranes.? Cardiac: Chest wall symmetric. RRR Lungs: Normal respiratory effort without accessory muscle use. CTA bilaterally Abdomen: firm, nondistended, diffusely ttp without rebound or guarding. Back: No midline spinous or paraspinal tenderness. No step off deformity. Ext: no pitting edema. Neuro: AOx3. Normal speech. Course Course Course Narrative: 1311 -- CBC showing leukocytosis to 14.8 with left shift. Normocytic anemia, H and H appears to be around baseline when compared to priors, slightly down trending at 7.6/22.4. Chemistry without acute electrolyte abnormality requiring intervention. Renal function at baseline. Liver function at baseline. Lactic acid WNL at 1.8. Blood cultures pending. > multiple attempts at inserting Carty catheterization unsuccessful (RN and MOLDING CUTTER at bedside) - meeting resistance, various clots, irrigation attempted however unsuccessful. > CT a/p showing: CT abdomen pelvis w IV con IMPRESSION: Carty catheter balloon inflated in the prostatic urethra with likely blood products layering in the urinary bladder lumen and likely post instrumentation gas. Trabeculated urinary bladder wall. Extraluminal gas right lateral perirectal concerning for perforation. Metallic foreign bodies at the duodenal jejunal junction and cecum. Eventration, left lateral abdominal wall. Left-sided pleural effusion and compression atelectasis versus airspace disease, lung bases. Questionable 4 mm pulmonary nodule right lung base. > discussed case w/ general surgeon it operations manager dr. petit who has reviewed imaging and has evaluated patient at bedside. he suspects findings are traumatic from carty insertion. he is not recommending any surgical intervention at this time. > discussed case w/ urologist it operations manager dr. cardenas. she is currently in the OR and has plans to evaluate patient once she is done. she is requesting IV vanco in the meantime which has been ordered. pending consultation > stable at this time. 1550 -- Dr. Cardenas at bedside - carty cath successfully inserted. draining preez red blood, not clots. Will attempt to send UA. 1600 -- Patient now hypotensive to 84/37. 2L IVF ordered now that carty has been established. Repeat blood work shows a drop in H&H to 6.7/20.8 and bump in renal function with BUN 8 and creatinine 1.56. Patient is pale appearing and needs to be transfused. Discussed risks v benefits of transfusion with patient. He has signed written informed consent. Type and screen pending. 1 unit PRBCs ordered. 1650 -- BP improving with IVF, now 110/37. Discussed case with hospitalist. Patient to be admitted to the medical floor for blood transfusion and monitoring of H&H. Medications Administered Discontinued Medications Generic Name Dose Route Start Last Admin Trade Name Freq PRN Reason Stop Dose Admin Vancomycin HCl 2,000 mg in 500 mls @ 250 mls/hr 08/09/25 13:20 08/09/25 14:16 Vancomycin/Ns IV 08/09/25 15:19 250 mls/hr ONCE ONE Administration Acetaminophen 1,000 mg in 100 mls @ 400 mls/hr 08/09/25 13:39 08/09/25 14:04 Ofirmev IV 08/09/25 13:53 Infused ONCE ONE Infusion Sodium Chloride 1,000 mls @ 999 mls/hr 08/09/25 16:00 08/09/25 16:02 Ns IV 08/09/25 17:00 999 mls/hr .Q1H1M WICHO Administration Sodium Chloride 1,000 mls @ 999 mls/hr 08/09/25 16:00 08/09/25 16:02 Ns IV 08/09/25 17:00 999 mls/hr .Q1H1M WICHO Administration Iohexol 100 ml 08/09/25 11:34 08/09/25 11:35 Iohexol 350 Mg/Ml 100 Ml Infus..Btl IV 08/09/25 11:35 85 ml ONCE ONE Administration Lidocaine HCl 10 ml 08/09/25 10:02 08/09/25 10:12 Lidocaine Hcl 2 % Urojet 10 Ml Jel.Pf.Luis TOPICAL 08/09/25 10:03 10 ml ONCE ONE Administration Lidocaine HCl 10 ml 08/09/25 15:12 08/09/25 16:14 Lidocaine Hcl 2 % Urojet 10 Ml Jel.Pf.Luis TOPICAL 08/09/25 15:13 10 ml ONCE ONE Administration Ondansetron HCl 4 mg 08/09/25 09:15 08/09/25 10:12 Ondansetron Odt 4 Mg Tab.Rapdis TRANSLINGU 08/09/25 09:16 4 mg ONCE ONE Administration Medical Decision Making Medical Decision Making MDM Narrative: 80-year-old male with pmhx significant for multiple sclerosis, diabetes, previous ID, dementia, chronic indwelling Carty catheter due to urinary retention presents to the ED today via EMS from shelter for carty catheter evaluation. vital signs stable. he is chronically ill appearing, pale, in NAD. on exam, abdomen is firm, ND, diffusely ttp without rebound or gaurding. Differential diagnosis includes anemia, electrolyte abnormality, obstructive uropathy, UTI, chronic indwelling carty, traumatic carty, bladder cancer, constipation, bowel obstruction, Plan for screening labs, UA, carty cath insertion, CT a/p. Differential Diagnosis Differential Diagnoses: The differential diagnosis associated with the presentation includes as above. Admission/Observation Consideration of admission/observation: Escalation of care including admission/observation considered patient admitted to medicine for further treatment of acute blood loss anemia with monitoring of h&h. Consult Healthcare Provider Management of the patient was discussed with: Law Firm Administrator general surgery - urologist - dr. cardenas Lab Data MDM Lab Attestation statement: I reviewed the patient's lab results. as above. 08/09/25 15:59 08/09/25 15:59 Labs: Lab Results 08/09/25 08/09/25 08/09/25 Range/Units 09:19 10:19 15:58 WBC 14.8 H (4.8-10.8) X10*3/uL RBC 2.39 L (4.60-5.80) X10*6/uL Hgb 7.6 L (14.0-18.0) g/dl Hct 22.4 L (42.0-52.0) % MCV 93.7 (80.0-98.0) fL MCH 31.8 (27.0-33.0) pg MCHC 33.9 (31.0-36.0) g/dl RDW 15.3 (11.0-16.0) % Plt Count 139 L D (160-400) X10*3/uL MPV 9.8 (9.4-12.4) fL Immature Gran % (Auto) 1.2 H (0.0-0.4) % Neut % (Auto) 90.0 H (45-73) % Lymph % (Auto) 3.9 L (20-40) % [place] % (Auto) 3.6 (2-11) % Eos % (Auto) 1.0 (0-4) % Baso % (Auto) 0.3 (0-2) % Lymph # (Auto) 0.6 L (1.2-4.9) X10*3/uL [place] # (Auto) 0.5 (0.1-1.2) X10*3/uL Eos # (Auto) 0.2 (0.0-0.4) X10*3/uL Baso # (Auto) 0.0 (0.0-0.2) X10*3/uL Abs Immat Gran (auto) 0.18 H (0.00-0.03) X10*3/uL Absolute Neuts (auto) 13.3 H (2.0-8.3) x10*3/uL Absolute Nucleated RBC 0.000 (0.0-0.012) X10*3/uL Nucleated RBC % (auto) 0.0 (0.0-0.2) /100WBC Smear Tech's Comments Sodium 136 (135-145) mmol/L Potassium 4.4 D (3.3-5.1) mmol/L Chloride 104 (96-108) mmol/L Carbon Dioxide 23 (22-29) mmol/L Anion Gap 13 (12-20) BUN 17 H (9-16) mg/dL Creatinine 1.30 (0.5-1.4) mg/dL Estim Creat Clear Calc 49.7 Estimated GFR 53 Random Glucose 109 (60-115) mg/dL Lactic Acid 1.8 (0.5-2.0) mmol/L Calcium 7.8 L (8.4-10.2) mg/dL Magnesium 2.0 (1.6-2.6) mg/dL Total Bilirubin 0.6 (0.0-1.0) mg/dL AST 30 (5-37) U/L ALT 12 (0-40) U/L Alkaline Phosphatase 126 H (39-117) U/L Total Protein 5.7 L (6.5-8.0) g/dL Albumin 2.6 L (3.5-5.0) g/dL Blood Type B Positive Antibody Screen NEGATIVE Crossmatch See Detail 08/09/25 Range/Units 15:59 WBC 15.5 H (4.8-10.8) X10*3/uL RBC 2.18 L (4.60-5.80) X10*6/uL Hgb 6.7 L* (14.0-18.0) g/dl Hct 20.8 L* (42.0-52.0) % MCV 95.4 (80.0-98.0) fL MCH 30.7 (27.0-33.0) pg MCHC 32.2 (31.0-36.0) g/dl RDW 15.7 (11.0-16.0) % Plt Count 130 L (160-400) X10*3/uL MPV 10.0 (9.4-12.4) fL Immature Gran % (Auto) 1.0 H (0.0-0.4) % Neut % (Auto) 90.6 H (45-73) % Lymph % (Auto) 4.8 L (20-40) % [place] % (Auto) 2.5 (2-11) % Eos % (Auto) 0.7 (0-4) % Baso % (Auto) 0.4 (0-2) % Lymph # (Auto) 0.8 L (1.2-4.9) X10*3/uL [place] # (Auto) 0.4 (0.1-1.2) X10*3/uL Eos # (Auto) 0.1 (0.0-0.4) X10*3/uL Baso # (Auto) 0.1 (0.0-0.2) X10*3/uL Abs Immat Gran (auto) 0.16 H (0.00-0.03) X10*3/uL Absolute Neuts (auto) 14.0 H (2.0-8.3) x10*3/uL Absolute Nucleated RBC 0.000 (0.0-0.012) X10*3/uL Nucleated RBC % (auto) 0.0 (0.0-0.2) /100WBC Smear Tech's Comments VERIFIED Sodium 134 L (135-145) mmol/L Potassium 5.0 (3.3-5.1) mmol/L Chloride 105 (96-108) mmol/L Carbon Dioxide 25 (22-29) mmol/L Anion Gap 9 L (12-20) BUN 18 H (9-16) mg/dL Creatinine 1.56 H (0.5-1.4) mg/dL Estim Creat Clear Calc 41.4 Estimated GFR 43 Random Glucose 117 H (60-115) mg/dL Lactic Acid (0.5-2.0) mmol/L Calcium 7.4 L (8.4-10.2) mg/dL Magnesium (1.6-2.6) mg/dL Total Bilirubin (0.0-1.0) mg/dL AST (5-37) U/L ALT (0-40) U/L Alkaline Phosphatase (39-117) U/L Total Protein (6.5-8.0) g/dL Albumin (3.5-5.0) g/dL Blood Type Antibody Screen Crossmatch Independent Interpretation I performed an independent interpretation of an: CT Scan Interpretation: ct a/p without bowel obstruction. noted bladder distension with blood in the bladder Radiology Impression Discussion of test interpretation with radiology: I have reviewed the radiologist's reading. Radiologist Impression: Procedure(s): CT abdomen pelvis w IV con Accession Number(s): [id number] cc: ALISHA COY MD; Fadumo Castañeda~ Report Number: [id number]: Total DLP = 619.00 mGy-cm Reason for Exam: hematuria, carty cath obstruction EXAMINATION: CT ABDOMEN AND PELVIS WITH CONTRAST CLINICAL INFORMATION: Hematuria. Carty catheter obstruction. COMPARISON: July 15, 2025. TECHNIQUE: Multidetector volumetric images were obtained from the superior aspect of the liver through the pubic symphysis following administration 85 mL of Omnipaque 350 intravenous contrast. Sagittal and coronal reformatted images were obtained on the technologist's workstation. Oral contrast: No This CT examination was performed using dose optimization techniques as appropriate, variously including the following: *Automated exposure control *Adjustment of mA and/or kV according to patient size (this includes techniques or standardized protocols for targeted exams where dose is matched to indication/reason for exam; i.e. extremities or head) *Use of iterative reconstruction technique DLP: 619 mGy centimeter. FINDINGS: LUNG BASES: Patchy and linear attenuation, lung bases right middle lung lobe and lingula. Small volume left sided pleural effusion. Questionable 3 mm pulmonary nodule, right lung base.. LIVER, GALLBLADDER, AND BILIARY TREE: Liver measures 10 cm. No focal lesion.. Gallbladder is fluid-filled mildly prominent. There is a 3 mm gallbladder wall. No pericholecystic fluid collection. Common bile duct measures 6 mm and then in likely common channel with the main pancreatic duct. PANCREAS: Main pancreatic duct at the head of the pancreas measures 6 mm. No peripancreatic fluid collection. SPLEEN: 8 cm. No focal mass. ADRENAL GLANDS: No nodular lesions. KIDNEYS AND URETERS: No hydronephrosis. No gross nephrolithiasis. Normal enhancement pattern of the renal parenchyma. 1.3 cm exophytic thin septated cystic lesion, lower pole left kidney. BLADDER: Trabeculated bladder wall. Intraluminal hyperdensity in a dependent portion of the lumen. Gas in the periphery of the bladder. GASTROINTESTINAL TRACT: There is an edematous wall of the rectum. There is extraluminal gas in the right lateral perirectal fat. There is abundant stool in the large intestine. No intestinal obstruction pattern. There are 17 mm linear metallic foreign bodies, one in the duodenal jejunal junction and the other one in the cecum. No ascites. No peripheral enhancing fluid collection.. ABDOMINAL WALL: Probable left lateral abdominal wall defect containing eventration/herniation of the intra-abdominal organs. LYMPH NODES: No gross mesenteric or retroperitoneal lymphadenopathy. VASCULAR: Calcified plaques in the thoracic aorta abdominal aorta and iliac arteries femoral and superficial femoral arteries and at the origin of the mesenteric arteries and main renal arteries. No aneurysm or dissection, abdominal aorta. Calcified plaques in the coronary arteries. PELVIC VISCERA: Heterogeneous nodular enlarged prostate gland containing a balloon inflated Carty catheter. OSSEOUS STRUCTURES: Multilevel thoracolumbar spondylosis. Old superior endplate compression deformity representing 20% volume loss at L1. Incomplete ankylosis L4-5 and L5-S1. Chondrocalcinosis at multiple levels. Osteopenia versus osteoporosis. CT/CT abdomen pelvis w IV con IMPRESSION: Carty catheter balloon inflated in the prostatic urethra with likely blood products layering in the urinary bladder lumen and likely post instrumentation gas. Trabeculated urinary bladder wall. Extraluminal gas right lateral perirectal concerning for perforation. Metallic foreign bodies at the duodenal jejunal junction and cecum. Eventration, left lateral abdominal wall. Left-sided pleural effusion and compression atelectasis versus airspace disease, lung bases. Questionable 4 mm pulmonary nodule right lung base. Discussed with the emergency physician insurance sales assistant, Fadumo Castañeda at 11:40 AM on August 09, 2025. [ Fleischner guidelines were followed. Electronically signed by: Blas Gould MD 08/09/2025 12:05 PM EDT Independent Historian Clinical information obtained from an independent historian. History obtained from or confirmed by: EMS External Record Review External record reviewed: Inpatient record Prescription Management I considered prescription management with: Pain Medication and Antibiotic (vancomycin) Chronic Conditions Patient?s care impacted by: Other (chronic indwelling carty) Social Determinants Patient?s care significantly limited by Social Determinants of Health including: Other Social Determinant of Health Critical Care Time Critical Care Time Critical Care Time: Yes Total Critical Care Time: 45 Attestation: Critical care time in the amount of 45 minutes has been provided to the patient in terms of direct patient care, frequent reevaluation, consultation with general surgery/ urology/ hospitalist, review and interpretation of medical data and results, and management of potentially life-threatening conditions. This is all outside of any medical procedures. Discharge Plan Discharge Clinical Impression: Hematuria, Obstructive uropathy, Acute blood loss anemia Patient Disposition: Admitted As Inpatient
[2025-08-09 09:24] LABS: MANUAL DIFF FLAG NO
[2025-08-09 09:27] LABS: Hematocrit 22.4 % (42.0-52.0); Hemoglobin 7.6 g/dl (14.0-18.0); Imm Gran Abs Auto 0.18 X10*3/uL (0.00-0.03); Imm Gran Pct Auto 1.2 % (0.0-0.4); Lymphocytes Absolute Auto 0.6 X10*3/uL (1.2-4.9); Mean Corpuscular HGB Conc 33.9 g/dl (31.0-36.0); Mean Corpuscular Hemoglobin 31.8 pg (27.0-33.0); Mean Corpuscular Volume 93.7 fL (80.0-98.0); NRBC Abs Auto 0.000 X10*3/uL (0.0-0.012); NRBC Pct Auto 0.0 /100WBC (0.0-0.2); Platelet Count 139 X10*3/uL (160-400); Red Blood Count 2.39 X10*6/uL (4.60-5.80); White Blood Count 14.8 X10*3/uL (4.8-10.8)
[2025-08-09 09:40] LABS: Alanine Aminotransferase 12 U/L (0-40); Albumin Level 2.6 g/dL (3.5-5.0); Alkaline Phosphatase 126 U/L (39-117); Anion Gap 13 (12-20); Aspartate Amino Transferase 30 U/L (5-37); Blood Urea Nitrogen 17 mg/dL (9-16); Calcium 7.8 mg/dL (8.4-10.2); Carbon Dioxide 23 mmol/L (22-29); Chloride 104 mmol/L (96-108); Creatinine Clr Calc Pharmacy 49.7; Estimated Glomerular Filt Rate 53; Magnesium 2.0 mg/dL (1.6-2.6); Potassium 4.4 mmol/L (3.3-5.1); Sodium 136 mmol/L (135-145); Total Protein 5.7 g/dL (6.5-8.0)
[2025-08-09] MEDS: Lidocaine HCl 2 % Urojet 10 ML JEL.PF.APP TOPICAL ×2 (10:12→16:14)
--- OUTSIDE RECORDS SUMMARY | 2025-08-09 10:27 | XMS_ITS ---
Author Organization [facility] [place] Care Team Providers Care Time Stamp Assembler Name Role Phone Naya Alvarez Unavailable Unavailable John Luevano Unavailable Unavailable Argentina Irvin Unavailable Unavailable Vitaliy Ham Unavailable Unavailable Jeanette Nicolas Unavailable UnavailNatalie Santana Unavailable Unavailable Kyle, Corina A Unavailable Unavailable Martin, Melyssa Unavailable Unavailable Allergies and adverse reactions Code CodeSystem Substance Reaction Severity StartDate Concern Status Zetia Unknown 12/14/2018 active 61188 RXNORM Tetracycline Unknown 12/14/2018 active Solu-Medrol Unknown 12/14/2018 active 37162 RXNORM Simvastatin Unknown 12/14/2018 active Rocephin Nausea (code- 676973064, SNOMED CT) Mild 01/10/2022 active 17599 RXNORM Pravastatin Unknown 12/14/2018 active 7804 RXNORM Oxycodone Unknown 12/14/2018 active 7393 RXNORM Niacin Unknown 12/14/2018 active Invanz Skin reaction - finding (code- 696194219, SNOMED CT) Moderate 10/15/2019 active Cymbalta Unknown 12/14/[address] Benzodiazepines Shock due to anaphylaxis (code- 840619463, SNOMED CT) Moderate 09/29/2019 active Ampyra Unknown 12/14/2018 active Care Team Name Role Address Phone Organization Dates Naya Alvarez [address] [place] [address], [place], [address], [facility] (Office): : [facility] [place] 11/06/2020 - present John Luevano [address] [place] [address], [place], [address], [facility] (Office): : : [facility] [place] 11/06/2020 - present Argentina Irvin [address] [place] [address], [place], [address], [facility] (Office): : [facility] [place] 11/06/2020 - present Vitaliy Ham [address] [place] [address], [place], [address], [facility] (Office): : : [facility] [place] 11/06/2020 - present Jeanette Nicolas [address] [place] [address], [place], [address], [facility] (Office): : : [facility] [place] 11/06/2020 - present Natalie Rasmussen [address] [place], [address], [facility] (Office): : [facility] [place] 11/06/2020 - present Corina Wright [address] [address], [place], [address], [facility] (Office): : : [facility] [place] 11/06/2020 - present Melyssa Salazar [address] [place], [address], [facility] (Office): : [facility] [place] 11/06/2020 - present Imaging Narrative Note Date Imaging Narrative No te 08/02/2025 VENOUS DUP EXT UNI/L IM, LEFTSee NoteFINDINGS: Left Upper Extremity Venous Duplex Ultrasound: ClnicalHistory: Pain and swelling Grayscale, color, and pulsed Doppler evaluation of the left internal jugular vein, subclavian, axillary, brachial, radial and ulnar veins. Superficial basilic and cephalic veins were evaluated. There is no visualized thrombus and normal Doppler is obtained. There are normal responses to compression when possible and Valsalva.CONCLUSION: No evidence for deep venous thrombosis.ELECTRONICALLY SIGNED BY BONNIE MARCUM M.D. 08/02/2025 2:46:13 PM EDT.Reason for Study: R22.32 LOCALIZED SWELLING, MASS AND LUMP, LEFT UPPER LIMBPrincipal Result Private Pilot: BONNIE MARCUM ([id number])Metal Mine Inspector: KUNAL GORDON ([facility])Violin Maker Hand Metal Mine Inspector: AMRIK Goals Section Goals Description Status Target Date Healing Goal: Skin Tear/Bruise will heal within the next 14 days Active 09/28/2025 Coco or healthcare decision ynes gordon shall participate in decisions regarding medical care and treatment x 90 days. Active 2024 Coco should maintain a positi ve mood, i.e. no episodes of tears or verbalization of sadness or anger 06/06 days per week through next review. Active 09/28/2025 Coco will achieve acceptable level of pain contro l x 90 days. Active 09/28/2025 Coco will be able to verbalize identity. Active 09/28/2025 Coco will be free from injury r/t side rail use for duration of stay Active 09/28/2025 Coco will be free from skin i rritation or breakdown due to bowel incontinence times 90 days. Active 09/28/2025 Coco will be free of all sign s and symptoms of hypo/hyperglycemia such as: sweating, trembling, thirst, fatigue, weakness, blurred vision x 90 days. Active 09/28/2025 Coco will be supported as he continues to reside at [facility] daily x 90 days. Active 09/28/2025 Coco will consume >75% of meals at most meals thr ough next review. Active 09/28/2025 Coco will demonstrate effecti ve coping skills related to verbal behavior by next review. Active 09/28/2025 Coco will have improved skin integrity through ne xt review. Active 09/28/2025 Coco will have incontinence c are need met by staff to maintain dignity and comfort and to prevent incontinence related complications Active 09/28/2025 Coco will have no falls with injury x 90 days. Ac tive 09/28/2025 Coco will have no increase in skin breakdown throughout the next review period Active 09/28/2025 Coco will have no s/sx hypo/h yperglycemia through next review. Active 09/28/2025 Coco will have no signs and s ymptoms of urinary tract infection x 90 days. Active 09/28/2025 Coco will have stable weight without significant change through next review. Active 09/28/2025 Coco will have the smallest m ost effective dose without side effects X__90_ days. Active 09/28/2025 Coco will identify stressors and report to staff. Active 09/28/2025 Coco will maintain a pattern of sleep sufficient to promote health and well-being throughout review period. Active 09/28/2025 Coco will maintain adequate hydration through nex t review. Active 09/28/2025 Coco will maintain highest ca pable level of ADL ability throughout the next review period Active 09/28/2025 Coco will maintain his abilit y to make decisions on his own through next review. Active 09/28/2025 Coco will maintain intact ora l mucous membranes as evidence by the absence of discomfort, gum inflammation/infection, oral lesions x_90__ days. Active 09/28/2025 Coco will not develop GI complications r/t consti pation x__90_days. Active 09/28/2025 Coco will not develop signs o r symptoms of MDRO infection throughout the next review period Active 09/28/2025 Coco will not have any discom fort or chewing problems related to broken, loose or carious teeth in the next__90___days. Active 09/28/2025 Coco will not show signs of skin breakdown x 90 d ays Active 09/28/2025 Coco will plan and choose to engage in preferred activities Active 09/28/2025 Coco will report feeling safe in the Center. Active 09/28/2025 Coco's Wound will remain free from signs and symptoms of infection x 90 days Active 09/28/2025 Coco's wound /skin impairment will heal as evidenced by decrease in size, absence of erythema and drainage and/or presence of granulation X 14 days (resolved) Active 09/28/2025 Omero will utilize 1/4 bed r ail(s) independently; with assistance) for turning and repositioning while in bed; transferring to/from bed. Active 09/28/2025 Iman will utilize 1/4 bed ra il with assistance for turning and repositioning while in bed; transferring to/from bed throughout the next review period Active 09/28/2025 Manage skin changes with out complication throughout the next review period Active 09/28/2025 Resident will not experience any signs/symptoms of fluid overload as evidenced by the absence of peripheral edema and dyspnea x 90 days Active 09/28/2025 maintain comfort and minimize complications from the blisters Active 09/28/2025 Functional Status Code Name Recorded Time Value Entered By Chair/bml-uz-wcqid transfer 08/09/2025 Not assessed [email or web address] Eating 08/09/2025 Not assessed [email or web address] Feeding or Eating 08/09/2025 Not assessed [email or web address] Indicate the type of wheelchair or scooter used 08/09/2025 Independent [email or web address] Indicate the type of wheelchair or scooter used 08/09/2025 Manual wheelchair (physical object) [email or web address] Lower body dressing 08/09/2025 Not assessed RBOATENG 6 Lying to sitting on side of bed 08/09/2025 Not assessed [email or web address] Oral hygiene 08/09/2025 Not assessed RBOATENG6 Personal hygiene 08/09/2025 Not assessed RBOATENG6 Putting on/taking off footwear 08/09/2025 Not assess ed [email or web address] Roll left and right 08/09/2025 Substantial/maximal a ssistance [email or web address] Shower/bathe self 08/09/2025 Not assessed [email or web address] Sit to lying 08/09/2025 Not assessed [email or web address] Sit to stand 08/09/2025 Not assessed RBOATENG6 Toilet transfer 08/09/2025 Not assessed RBOATENG6 Toileting hygiene 08/09/2025 Substantial/maximal ass istance [email or web address] Upper body dressing 08/09/2025 Not assessed RBOATENG 6 Walk 10 feet 08/09/2025 Not assessed RBOATENG6 Walk 150 feet 08/09/2025 Independent [email or web address] Walk 50 feet 08/09/2025 Independent [email or web address] Wheel 150 feet 08/09/2025 Independent [email or web address] Wheel 50 feet with two turns 08/09/2025 Not assessed [email or web address] Immunizations Immunization Status Vaccine Details Vaccine Code CodeSystem Date Notes Pneumovax Dose 1 completed pneumococcal polysaccharide vaccine, 23 valent 33 CVX created date: 9 administe red date: 1 [place] [facility] [place] TB 1 Step Mantoux (PPD) completed tuberculin skin test; purified protein derivative solution, intradermal lotNumber: [id number] expiry: 09/29/2020 Given 0.1 ml Left Forearm intradermally 96 CVX created date: 9 administe red date: 9 TB 2 Step Mantoux Skin Test completed tuberculin skin test; purified protein derivative solution, intradermal lotNumber: [id number] expiry: 10/30/2027 Mfg: SONOFI Given 0.1 ml Left Forearm intradermally Step 1 of Multi-step with next step required 96 CVX created date: 5 consent date: 5 administe red date: 4 TB 2 Step Mantoux Skin Test completed tuberculin skin test; purified protein derivative solution, intradermal lotNumber: [id number] expiry: 09/29/2020 Step 1 of Multi-step with next step required 96 CVX created date: 9 administe red date: 9 Pneumovax Dose 2 completed pneumococcal polysaccharide vaccine, 23 valent lotNumber: [id number] expiry: 05/30/2023 Given 0.5 ml Left Deltoid intramuscularly 33 CVX created date: 2 consent date: 2 administe red date: 2 PCV (Prevnar) 13 completed pneumococcal conjugate vaccine, 13 valent 133 CVX created date: 9 administe red date: 8 [place] Influenza (high dose) completed Influenza, high-dose, split virus, trivalent, injectable, preservative free Given 0.7 ml Left Deltoid intramuscularly 135 CVX created date: 2 consent date: 2 administe red date: 2 Influenza (vial) completed Influenza, split virus, trivalent, injectable, contains preservative lotNumber: [id number] expiry: 05/30/2022 Mfg: Fluzone Given 0.7 ml Left Deltoid intramuscularly 141 CVX created date: 1 consent date: 1 administe red date: 1 Educated by Lynette Mcneil RN on 08/19/2021 Influenza (vial) completed Influenza, split virus, trivalent, injectable, contains preservative 141 CVX created date: 9 administe red date: 9 Influenza (standard dose syringe) completed Influenza, Madin Yary Canine Kidney, subunit, quadrivalent, injectable, preservative free Given 0.5 ml intramuscularly 171 CVX created date: 0 administe red date: 0 Resident received flu vaccine while in hospital Influenza (standard dose syringe) completed Influenza, Madin Yary Canine Kidney, subunit, quadrivalent, injectable, preservative free lotNumber: [id number] expiry: 05/24/2020 Mfg: Afluria Given 0.5 ml Right Deltoid intramuscularly 171 CVX created date: 9 consent date: 9 administe red date: 9 COVID-19 Vaccine Dose 1 completed SARS-COV-2 (COVID-19) vaccine, mRNA, spike protein, LNP, preservative free, 30 mcg/0.3mL dose lotNumber: [id number] expiry: 02/18/2021 Mfg: Pfizer Given 0.3 ml Left Deltoid intramuscularly 208 CVX created date: 1 consent date: 1 administe red date: 1 Educated by Ashlyn Paredes on 12/09/2020 [facility] COVID-19 Vaccine Dose 2 completed SARS-COV-2 (COVID-19) vaccine, mRNA, spike protein, LNP, preservative free, 30 mcg/0.3mL dose lotNumber: [id number] expiry: 04/30/2021 Mfg: Pfizer Given 0.3 ml Right Deltoid intramuscularly 208 CVX created date: 1 consent date: 1 administe red date: 1 Educated by Owen Velarde on 12/27/2020 Received dose 2 on 12/30/20 COVID-19 Vaccine Additional Dose/Booster completed unknown vaccine or immune globulin lotNumber: [id number] expiry: 07/17/2023 Mfg: pfizer Bivalent Given 0.3 ml Left Deltoid intramuscularly 999 CVX created date: 3 consent date: 3 administe red date: 3 COVID-19 Vaccine Additional Dose/Booster completed unknown vaccine or immune globulin lotNumber: [id number] expiry: 01/23/2023 Mfg: pfizer Bivalent booster Given 0.3 ml Right Deltoid intramuscularly 999 CVX created date: 2 consent date: 2 administe red date: 3 Consented on 09/09/2022. Positive covid prior to administering booster in August. COVID-19 Vaccine Additional Dose/Booster completed unknown vaccine or immune globulin lotNumber: [id number] expiry: 06/10/2022 Mfg: pfiser Given 0.3 ml Right Deltoid intramuscularly 999 CVX created date: 2 consent date: 2 administe red date: 2 Educated by Erin Moore on 04/04/2022 COVID-19 Vaccine Additional Dose/Booster completed unknown vaccine or immune globulin lotNumber: [id number] expiry: 10/31/2021 Mfg: Pfizer Given 0.3 ml Left Deltoid intramuscularly 999 CVX created date: 1 consent date: 1 administe red date: 1 PCV (Prevnar) 20 completed Pneumococcal conjugate vaccine 20-valent (PCV20), polysaccharide [id number] conjugate, adjuvant, preservative free lotNumber: [id number] expiry: 07/31/2024 Mfg: Abroad101 Given 0.5 ml Right Deltoid intramuscularly 216 CVX created date: 3 consent date: 3 administe red date: 3 Influenza Fluzone High Dose 0.7ML dose (CVX 197) completed Influenza, high-dose, split virus, quadrivalent, injectable, preservative free lotNumber: [id number] expiry: 05/30/2024 Mfg: Mariano pasteur Given 0.7 ml Left Deltoid intramuscularly 197 CVX created date: 3 consent date: 3 administe red date: 3 Comirnaty (pfizer) COVID19 [id number] completed SARS-COV-2 (COVID-19) vaccine, mRNA, spike protein, LNP, preservative free, oanh-sucrose, 30 mcg/0.3 mL dose lotNumber: [id number] expiry: 12/31/2023 Mfg: Biontech Given 0.3 ml Left Deltoid intramuscularly 309 CVX created date: 3 consent date: 3 administe red date: 3 Influenza FLUAD Trivalent CVX 168 completed Influenza, adjuvanted, inactivated, trivalent, injectable, preservative free lotNumber: [id number] expiry: 04/20/2025 Given Left Deltoid intramuscularly 168 CVX created date: 4 consent date: 4 administe red date: 4 Educated by Kaylyn Garcia on 09/16/2024 SpikeVax (moderna) COVID19 [id number] completed SARS-COV-2 (COVID-19) vaccine, mRNA, spike protein, LNP, preservative free, 50 mcg/0.5 mL dose lotNumber: [id number] expiry: 06/30/2025 Mfg: Moderna Given Left Deltoid intramuscularly 312 CVX created date: 4 consent date: 4 administe red date: 4 Medications Section Medication Name Status Code CodeSystem Dose Route Frequency Admin Type Sig Text Start Date End Date Aspirin 81 Tablet Delayed Release 81 MG active 540797 RXNORM 1 mg Oral one time a day Routine Give 1 mg by mouth one time a day for HTN 2020 - Dulcolax Suppository 10 MG active 796535 RXNORM 1 suppos itory Rectal one time a day Routine Insert 1 suppos itory rectal ly one time a day every 3 day(s) for consti pation reside nt reques t schedu le and time change 2020 - Bisacodyl EC Tablet Delayed Release 5 MG active 322627 RXNORM 1 tablet Oral as needed PRN Give 1 tablet by mouth as needed for consti pation 2020 - Fleet Enema Enema 7-19 GM/118ML active 532311 RXNORM 1 dose Rectal as needed PRN Insert 1 dose rectal ly as needed for Consti pation if no result from Dulcol ax within 2 hours. If no result s from Fleet enema, call /ksenia rich ce provid er (COMPA) for furthe r orders . 2020 - Insta-Glucose Gel 77.4 % active 124516 2 RXNORM 1 dose Oral as needed PRN Give 1 dose by mouth as needed for BG less than 70, Pt arousa ble consci ous and able to swallo w Hold all diabet ic medica tions until provid er author iznini resump tion. Remain with pt. Keep pt.in bed/ch air for safety . Repeat blood glucos e in 15 min. AND Give 1 dose by mouth as needed for BG less than 70, Pt arousa ble consci ous and able to swallo w If repeat blood glucos e is below 70mg/d l and pt is arousa ble, consci ous and able to swallo w. Contin ue to hold all diabet ic medica tions until provid er author iznini resump tion. Remain with pt. Keep pt.in bed/ch air for safety . 2021 - 867710 2 RXNORM 1 dose Oral as needed PRN Give 1 dose by mouth as needed for BG less than 70, Pt arousa ble consci ous and able to swallo w Hold all diabet ic medica tions until provid er author iznini resump tion. Remain with pt. Keep pt.in bed/ch air for safety . Repeat blood glucos e in 15 min. AND Give 1 dose by mouth as needed for BG less than 70, Pt arousa ble consci ous and able to swallo w If repeat blood glucos e is below 70mg/d l and pt is arousa ble, consci ous and able to swallo w. Contin ue to hold all diabet ic medica tions until provid er author nia resump tion. Remain with pt. Keep pt.in bed/ch air for safety . 2021 - Glucagon Emergency Kit 1 MG active 552059 RXNORM 1 mg Intramu scular as needed PRN Inject 1 mg intram uscula rly as needed for BG less than 70, Not arousa ble consci ous or able to swallo w Hold all diabet ic meds until provid er author iznini resump tion, remain with pt.and keep in bed/ch air for safety . Repeat blood glucos e in 15 min AND Inject 1 mg intram uscula rly as needed for BG less than 70, Not arousa ble consci ous or able to swallo w If repeat blood glucos e is below 70mg/d l and pt is NOT arousa ble, consci ous or able to swallo w. Contin ue to hold all diabet ic medica tions until provid er author nia resump tion. Remain with pt. Keep pt. in bed/ch air for safety . 2021 - 457696 RXNORM 1 mg Intramu scular as needed PRN Inject 1 mg intram uscula rly as needed for BG less than 70, Not arousa ble consci ous or able to swallo w Hold all diabet ic meds until provid er author nia resump tion, remain with pt.and keep in bed/ch air for safety . Repeat blood glucos e in 15 min AND Inject 1 mg intram uscula rly as needed for BG less than 70, Not arousa ble consci ous or able to swallo w If repeat blood glucos e is below 70mg/d l and pt is NOT arousa ble, consci ous or able to swallo w. Contin ue to hold all diabet ic medica tions until provid er author nia resump tion. Remain with pt. Keep pt. in bed/ch air for safety . 2021 - Bisacodyl Rectal Suppository 10 MG active RXNORM 10 mg Rectal as needed PRN Insert 10 mg rectal ly as needed for consti pation daily is no BM 2022 - CeraVe External Cream active n/a n/a Topical every day and evening shift Routine Apply to body topica lly every day and evenin g shift for dry skin 2022 - Melatonin Oral Tablet 5 MG aborted 398077 RXNORM 5 mg Oral as needed PRN Give 5 mg by mouth every 24 hours as needed for at HS 07/27 Pepto-Bismol Oral Suspension active 30 ml Oral as needed PRN Give 30 ml by mouth every 8 hours as needed for Upset stomac h/ Nausea 2022 - Folic Acid Tablet 1 MG aborted 116746 RXNORM 1 tablet Oral one time a day Routine Give 1 tablet by mouth one time a day every Fri, Fri, Fri, Fri, Sat, Sun for Bullou s pemphi toni 07/27 Methotrexate Tablet 2.5 MG active 773484 RXNORM 15 mg Oral one time a day Routine Give 15 mg by mouth one time a day every Mon for skin monito r for advers e conseq uences 2023 - Naloxone HCl Solution 0.4 MG/ML active 869327 9 RXNORM 0.4 mg/ml Intramu scular as needed PRN Inject 0.4 mg/ml intram uscula rly every 2 minute s as needed for sign of opioid overdo se- locate d in med cart top drawer Maybe repeat ed every two (2)to three( 3)dipesh jose for unresp onsive ness or diffic ulty breath ing,un til indivi dual is breath ing (respi ratory rate greate r than 10)Ini tiate emerge ncy medica l respon se protoc ol (e.g., call91 1)and transf er to the hospit al 2023 - TraMADol HCl Tablet 50 MG active 437576 RXNORM 50 mg Oral as needed PRN Give 50 mg by mouth every 23 hours as needed for modera te and severe pain PRN at bedtim e for pain 2023 - Mucinex Oral Tablet Extended Release 12 Hour 600 MG active 963933 RXNORM 1 tablet Oral as needed PRN Give 1 tablet by mouth every 12 hours as needed for cold sympto ms 2023 - Enulose Oral Solution 10 GM/15ML active 961693 RXNORM 30 ml Oral one time a day Routine Give 30 ml by mouth one time a day for consti pation . 2023 - amLODIPine Besylate Oral Tablet 10 MG active 972029 RXNORM 10 mg Oral one time a day Routine Give 10 mg by mouth one time a day for HTN Hold for SBP< 90 2023 - Gabapentin Capsule 300 MG active 942391 RXNORM 1 capsul e Oral three times a day Routine Give 1 capsul e by mouth three times a day for Neuro pain 2023 - Ferrous Sulfate Tablet 325 (65 Fe) MG active 292152 RXNORM 1 tablet Oral one time a day Routine Give 1 tablet by mouth one time a day for anemia 2023 - Admelog SoloStar Subcutaneous Solution Pen-injector 100 UNIT/ML active 172005 1 RXNORM n/a n/a Subcuta neous two times a day Routine Inject as per slayana g scale: if 200 - 249 = 2 Units; 250 - 299 = 4 Units; 300 - 349 = 6 Units; 350 - 399 = 8 Units Call MD if glucos e > 400, subcut aneous ly two times a day for DM 2023 - Insulin Glargine-yfgn Subcutaneous Solution 100 UNIT/ML active 691786 6 RXNORM 3 unit Subcuta neous at bedtime Routine Inject 3 unit subcut aneous ly at bedtim e for diabet es 2023 - Cholecalcifer ol Tablet 1000 UNIT active 837902 RXNORM 1 tablet Oral one time a day Routine Give 1 tablet by mouth one time a day for Vit D def 2023 - MiraLax Powder active 781336 RXNORM 17 gram Oral in the morning Routine Give 17 gram by mouth in the mornin g for consti pation mix with 4-8 oz of fluids 2023 - Carvedilol Oral Tablet 6.25 MG aborted 20000130 RXNORM 6.25 mg Oral two times a day Routine Give 6.25 mg by mouth two times a day for HTN Hold for SBP <90 & HR < 60 give with food 07/27 Ascorbic Acid Oral Tablet active 500 mg Oral one time a day Routine Give 500 mg by mouth one time a day for supple ment 2023 - Milk of Magnesia Suspension 400 MG/5ML active 696498 RXNORM 30 ml Oral as needed PRN Give 30 ml by mouth as needed for Consti pation give at bedtim e if no BM in 3 days 2023 - Phytoplex Z-Guard Paste 57-17 % active 281591 4 RXNORM n/a n/a Topical every day and evening shift Routine Apply to masd to sacrum topica lly every day and evenin g shift for MASD Apply as direct ed. 2023 - Rosuvastatin Calcium Tablet 10 MG active 637536 RXNORM 1 tablet Oral at bedtime Routine Give 1 tablet by mouth at bedtim e for lipid contro l. 2023 - TraZODone HCl Tablet 50 MG active 403046 RXNORM 1 tablet Oral at bedtime Routine Give 1 tablet by mouth at bedtim e for insomn ia 2024 - Famotidine Oral Tablet 20 MG active 457662 RXNORM 1 tablet Oral one time a day Routine Give 1 tablet by mouth one time a day for GERD 2024 - BD Disp Needle Miscellaneous active 1 unit Subcuta neous three times a day Routine Inject 1 unit subcut aneous ly three times a day for insuli n admin 2024 - Colace Oral Capsule 100 MG active 290697 6 RXNORM 2 capsul e Oral two times a day Routine Give 2 capsul e by mouth two times a day for Consti pation give with 8 oZ liquid 2024 - Tylenol Oral Tablet 325 MG active 941253 RXNORM 2 tablet Oral at bedtime Routine Give 2 tablet by mouth at bedtim e for pain give with bedtim e tramad ol 2024 - Bacitracin External Ointment 500 UNIT/GM active 839667 0 RXNORM n/a n/a Topical every day and evening shift Routine Apply to Bilate ral feet topica lly every day and evenin g shift for infect ion Please send large tube. 2024 - Vancomycin HCl Intravenous Solution 500 MG/100ML active 349309 1 RXNORM 500 mg Intrave nous one time a day Routine Use 500 mg intrav enousl y one time a day for Bacter ia infect ion until 2024 23:59 08/11 amLODIPine Besylate Oral Tablet 10 MG aborted 838647 RXNORM 1 tablet Oral one time a day Routine Give 1 tablet by mouth one time a day for HTN 07/27 Chloraseptic Mouth/Throat Lozenge 6-10 MG active 744119 RXNORM 1 lozeng e Oral four times a day Routine Give 1 lozeng e by mouth four times a day for sore throat 2024 - Carvedilol Oral Tablet 12.5 MG active 336105 RXNORM 12.5 mg Oral two times a day Routine Give 12.5 mg by mouth two times a day for HTN 2024 - Refresh Plus Ophthalmic Solution active 1 drop Ophthal enriqueta four times a day Routine Instil l 1 drop in both eyes four times a day for Dry eyes ! drop to each eye. 2024 - Rozerem Oral Tablet 8 MG aborted [id number] RXNORM 1 tablet Oral at bedtime Routine Give 1 tablet by mouth at bedtim e for Insomn ia 07/27 Simethicone Oral Tablet 80 MG aborted 1 tablet Oral four times a day Routine Give 1 tablet by mouth four times a day for Gas 07/27 predniSONE Oral Tablet 2.5 MG active [id number] RXNORM 1 tablet Oral in the morning Routine Give 1 tablet by mouth in the mornin g for Allerg ic condit ions Take it with breakf ast. 2024 - Senna-Docusat e Sodium Oral Tablet 8.6-50 MG active 2 tablet Oral at bedtime Routine Give 2 tablet by mouth at bedtim e for Wing mike . 2024 - Folic Acid Oral Tablet 1 MG active 170658 RXNORM 1 tablet Oral one time a day Routine Give 1 tablet by mouth one time a day for Supple ment 2024 - Hydrocerin External Cream aborted n/a n/a Topical two times a day Routine Apply to Dry skin topica lly two times a day for Dry skin 07/29 Multivitamin- Minerals Oral Tablet active 1 tablet Oral one time a day Routine Give 1 tablet by mouth one time a day for supple ment 2024 - Simethicone Oral Tablet 80 MG active 1 tablet Oral as needed PRN Give 1 tablet by mouth every 6 hours as needed for gas 2024 - Rozerem Oral Tablet 8 MG active 320384 RXNORM 1 tablet Oral as needed PRN Give 1 tablet by mouth every 23 hours as needed for insomn ia 2024 - Hydrocerin External Cream active n/a n/a Topical two times a day Routine Apply to Dry skin topica lly two times a day for Dry skin 2024 - Ondansetron HCl Oral Tablet 4 MG active 963340 RXNORM 1 tablet Oral as needed PRN Give 1 tablet by mouth every 4 hours as needed for N/V 2024 - Diabetic Tussin EX Syrup active 10 ml Oral as needed PRN Give 10 ml by mouth every 4 hours as needed for cough 2020 - PredniSONE Tablet 2.5 MG aborted 825495 RXNORM 1 tablet Oral one time a day Routine Give 1 tablet by mouth one time a day for 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 (stand ing order) 2020 - Acetaminophen Tablet 325 MG active 730738 RXNORM 2 tablet Oral as needed PRN Give 2 tablet by mouth every 4 hours as needed for Temp 100F or above Notify Physic dannie/Ad vanced Practi ce provid er. Do not exceed 3g/day 2020 - Mental Status Section Date Assessment Total Score Description 07/30/2025 BIMS 12 moderate cognit niurka impairment CAM 0 No delirium ind icated PHQ-9 00 07/10/2025 CAM 0 No delirium ind icated Problems Problem # Description Date of onset Resolved Date Code CodeSystem Concern Status 1 ACUTE RESPIRATORY FAILURE WITH HYPOXIA 07/26/[address] active 2 ADULT HYPERTROPHIC PYLORIC STENOSIS 07/26/[address] active 3 UNSPECIFIED PSYCHOSIS NOT DUE TO A SUBSTANCE OR KNOWN PHYSIOLOGICAL CONDITION 09/10/[address] active 4 SEPSIS DUE TO PSEUDOMONAS 06/11/20 24 06/30/[address] completed 5 SEVERE SEPSIS WITH SEPTIC SHOCK 06/11/20 24 06/30/[address] completed 6 UNSPECIFIED LESIONS OF ORAL MUCOSA 06/11/20 24 06/30/[address] completed 7 ACUTE CYSTITIS WITHOUT HEMATURIA 03/01/20 24 03/26/[address] completed 8 ACUTE KIDNEY FAILURE, UNSPECIFIED 03/01/20 24 03/26/[address] completed 9 METABOLIC ENCEPHALOPATHY 03/01/20 24 03/26/[address] completed 10 PRESSURE ULCER OF SACRAL REGION, STAGE 2 03/01/[address] active 11 URINARY TRACT INFECTION, SITE NOT SPECIFIED 03/01/20 24 03/26/[address] completed 12 ESSENTIAL (PRIMARY) HYPERTENSION 10/02/[address] active 13 GASTRO-ESOPHAGEAL REFLUX DISEASE WITHOUT ESOPHAGITIS 10/02/[address] active 14 SUPERFICIAL MYCOSIS, UNSPECIFIED 10/02/[address] active 15 TYPE 2 DIABETES MELLITUS WITH DIABETIC POLYNEUROPATHY 10/02/[address] active 16 TYPE 2 DIABETES MELLITUS WITH OTHER CIRCULATORY COMPLICATIONS 10/02/[address] active 17 METHICILLIN RESISTANT STAPHYLOCOCCUS AUREUS INFECTION THE CAUSE OF DISEASES CLASSIFIED ELSEWHERE 06/26/[address] active 18 URINARY TRACT INFECTION, SITE NOT SPECIFIED 01/03/20 23 08/21/[address] completed 19 COVID-19 08/05/20 22 08/20/[address] completed 20 DYSPHAGIA, OROPHARYNGEAL PHASE 05/23/[address] active 21 OTHER SPECIFIED SEPSIS 05/23/20 21 10/15/[address] completed 22 PRESSURE ULCER OF SACRAL REGION, STAGE 2 05/23/20 21 06/26/[address] completed 23 URINARY TRACT INFECTION, SITE NOT SPECIFIED 05/23/20 21 10/15/[address] completed 24 HEREDITARY SPASTIC PARAPLEGIA 11/06/[address] active 25 INSOMNIA, UNSPECIFIED 11/06/[address] active 26 HYPOKALEMIA 08/21/20 20 06/30/[address] completed 27 ILEUS, UNSPECIFIED 08/21/20 20 08/21/[address] completed 28 POLYP OF COLON 08/21/[address] active 29 BULLOUS PEMPHIGOID 11/30/[address] active 30 ENCOUNTER FOR FITTING AND ADJUSTMENT OF URINARY DEVICE 11/24/[address] active 31 URINARY TRACT INFECTION, SITE NOT SPECIFIED 11/24/20 19 05/14/[address] completed 32 ACUTE KIDNEY FAILURE, UNSPECIFIED 10/04/20 19 10/15/[address] completed 33 CHRONIC KIDNEY DISEASE, UNSPECIFIED 10/04/[address] active 34 EXTENDED SPECTRUM BETA LACTAMASE (ESBL) RESISTANCE 10/04/[address] active 35 SILENT MYOCARDIAL ISCHEMIA 10/04/[address] active 36 TOXIC ENCEPHALOPATHY 10/04/2008/31/[address] completed 37 UNSPECIFIED DEMENTIA, UNSPECIFIED SEVERITY, WITHOUT BEHAVIORAL DISTURBANCE, PSYCHOTIC DISTURBANCE, MOOD DISTURBANCE, AND ANXIETY 10/04/[address] active 38 DERMATITIS, UNSPECIFIED 09/07/[address] active 39 METABOLIC ENCEPHALOPATHY 03/25/2009/21/[address] completed 40 SEVERE SEPSIS WITHOUT SEPTIC SHOCK 03/25/2009/21/[address] completed 41 ACUTE (REVERSIBLE) ISCHEMIA OF SMALL INTESTINE, EXTENT UNSPECIFIED 12/14/1908/21/[address] completed 42 ALLERGIC RHINITIS, UNSPECIFIED 12/14/[address] active 43 BENIGN PROSTATIC HYPERPLASIA WITH LOWER URINARY TRACT SYMPTOMS 12/14/[address] active 44 CHRONIC KIDNEY DISEASE, STAGE 3 (MODERATE) 12/14/1908/31/[address] completed 45 CHRONIC PAIN SYNDROME 12/14/[address] active 46 MAJOR DEPRESSIVE DISORDER, RECURRENT, MODERATE 12/14/[address] active 47 MOOD DISORDER DUE TO KNOWN PHYSIOLOGICAL CONDITION, UNSPECIFIED 12/14/19 19 05/01/[address] completed 48 MULTIPLE SCLEROSIS 12/14/[address] active 49 NEUROMUSCULAR DYSFUNCTION OF BLADDER, UNSPECIFIED 12/14/[address] active 50 OTHER SPECIFIED CONGENITAL MALFORMATIONS OF SKIN 12/14/[address] active 51 POLYNEUROPATHY, UNSPECIFIED 12/14/[address] active 52 TYPE 2 DIABETES MELLITUS WITH UNSPECIFIED COMPLICATIONS 12/14/[address] active 53 URINARY TRACT INFECTION, SITE NOT SPECIFIED 12/14/19 19 03/23/[address] completed Reason for Referral No Reasons for Referral Entered Diagnostic Results Result Code Code System Date Test Result Interpretation Reference Range Status Notes 09178-4 LOINC 2024 VENOUS DUP EXT UNI/WEBER Completed Result for: OMERO ARDON ( 1945, M) 08864-ML CPT 2024 VENOUS DUP EXT UNI/WEBER Final VENOUS DUP EXT UNI/WEBER, LEFTSee NoteFINDINGS: Left Upper Extremity Venous Duplex Ultrasound: ClnicalHistory : Pain and swelling Grayscale, color, and pulsed Doppler evaluation of the left internal jugular vein, subclavian, axillary, brachial, radial and ulnar veins. Superficial basilic and cephalic veins were evaluated. There is no visualized thrombus and normal Doppler is obtained. There are normal responses to compression when possible and Valsalva.CONCL USION: No evidence for deep venous thrombosis.IZABELLA CTRONICALLY SIGNED BY BONNIE MARCUM M.D. 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[employer] Test Code Code System Name Date 08/02/2025 Social History Social History Observation Description Start Date End Date Code Code System Current Smoking Status Tobacco smoking consumption unknown [id number] SNOMED CT Sex Assigned At Male 1945 44031-0 [facility] Gender Identity Vital Signs Code Code System Vitals Name Values and Units Timing Information 33334-0 LOINC Pain Level Value=0.0 08/09/2025 9279-1 LOINC Respiratory Rate Value=18.0 Units=/m in 08/09/2025 8462-4 LOINC Blood Pressure-Diastolic Value=64 Un its=mmHg 08/09/2025 8480-6 LOINC Blood Pressure-Systolic Kfgfp=386 Un its=mmHg 08/09/2025 8310-5 LOINC Body Temperature Value=97.5 Units= F 08/09/2025 8867-4 LOINC Heart rate Value=73.0 Units=/min 08/2025 09667-8 [facility] O2 % BldC Oximetry Value=98.0 Units= % 08/09/2025 2339-0 [facility] Blood Sugar Jhydf=194.0 Units=mg/dL 08/08/2025 60436-7 [facility] Weight Wafwm=554.8 Units=Lbs 8302-2 [facility] Height Value=70.5 Units=Inches 05/05/2024
--- OUTSIDE RECORDS SUMMARY | 2025-08-09 10:28 | XMS_ITS ---
Author Name [facility] Organization Unknown Results Test Name/Text Value Interpretation Date Range Source GFR/BSA.pred SerPlBld [id number] 56.0 Below low normal 07/26/2025 59 - HHCCT Glucose SerPl-mCnc 114.0 mg/dL Above high normal 07/26/2025 65 - 99 HHCCT Sodium SerPl-sCnc 136.0 mmol/L 07/26/2025 136 - 14 5 HHCCT Creat SerPl-mCnc 1.3 mg/dL 07/26/2025 0.5 - 1.3 HH CCT BUN SerPl-mCnc 14.0 mg/dL 07/26/2025 8 - [address] Anion Gap Bld-sCnc 6.0 Below low normal 07/26/2025 7 - 17 HHCCT CO2 SerPl-sCnc 25.0 mmol/L 07/26/2025 22 - 33 HH CCT Chloride SerPl-sCnc 105.0 mmol/L 07/26/2025 98 - 1 07 HHCCT Potassium SerPl-sCnc 4.2 mmol/L 07/26/2025 3.4 - 5 .3 HHCCT BUN/Creat SerPl 11.0 Ratio 07/26/2025 10 - 25 HH CCT Calcium SerPl-mCnc 7.1 mg/dL Below low normal 07/26/2025 8.7 - 10.5 HHCCT MCV RBC Auto 96.0 fL 07/26/2025 80 - 100 HHCCT Hct VFr Bld Auto 24.6 % Below low normal 07/26/2025 39 - 54 HHCCT PMV Bld Auto 9.9 fL 07/26/2025 7.5 - 12.5 HHCCT Platelet num Bld Auto 283.0 Thou/uL 07/26/2025 150 - 450 HHCCT RDW RBC Auto-Rto 15.9 % Above high normal 07/26/2025 11.5 - 14.5 HHCCT RBC num Bld Auto 2.56 Mil/uL Below low normal 07/26/2025 4.5 - 6.2 HHCCT Hgb Bld-mCnc 8.3 g/dL Below low normal 07/26/2025 13 - 17.7 HHCCT WBC num Bld Auto 4.4 Thou/uL 07/26/2025 4 - 11 HHCCT MCH RBC Qn Auto 32.4 pg Above high normal 07/26/2025 27 - 31 HHCCT MCHC RBC Auto-mCnc 33.7 g/dL 07/26/2025 30 - 36 HHCCT POC Glucose 105.0 mg/dL Above high normal 07/27/2025 65 - 99 HHCCT POC Glucose 139.0 mg/dL Above high normal 07/26/2025 65 - 99 HHCCT Vancomycin SerPl-mCnc 19.0 mg/L 07/26/2025 HHCCT Time of last dose Information not given 07/25/2025 HHCCT POC Glucose 94.0 mg/dL 07/26/2025 65 - 99 HHCCT POC Glucose 156.0 mg/dL Above high normal 07/25/2025 65 - 99 HHCCT POC Glucose 131.0 mg/dL Above high normal 07/25/2025 65 - 99 HHCCT POC Glucose 109.0 mg/dL Above high normal 07/25/2025 65 - 99 HHCCT Albumin SerPl-mCnc 2.1 g/dL Below low normal 07/25/2025 3.4 - 4.8 HHCCT Phosphate SerPl-mCnc 2.7 mg/dL 07/25/2025 2.7 - 4. 5 HHCCT Magnesium SerPl-mCnc 1.6 mg/dL 07/25/2025 1.6 - 2. 7 HHCCT Anion Gap Bld-sCnc 6.0 Below low normal 07/25/2025 7 - 17 HHCCT Calcium SerPl-mCnc 7.2 mg/dL Below low normal 07/25/2025 8.7 - 10.5 HHCCT Chloride SerPl-sCnc 104.0 mmol/L 07/25/2025 98 - 1 07 HHCCT BUN/Creat SerPl 10.0 Ratio 07/25/2025 10 - 25 HH CCT Sodium SerPl-sCnc 134.0 mmol/L Below low normal 07/25/2025 1 36 - 145 HHCCT BUN SerPl-mCnc 12.0 mg/dL 07/25/2025 8 - [address] CO2 SerPl-sCnc 24.0 mmol/L 07/25/2025 22 - 33 HH CCT Creat SerPl-mCnc 1.2 mg/dL 07/25/2025 0.5 - 1.3 HH CCT GFR/BSA.pred SerPlBld [id number] 62.0 07/25/2025 59 - HHCCT Glucose SerPl-mCnc 100.0 mg/dL Above high normal 07/25/2025 65 - 99 HHCCT Potassium SerPl-sCnc 3.6 mmol/L 07/25/2025 3.4 - 5 .3 HHCCT MCV RBC Auto 97.0 fL 07/25/2025 80 - 100 HHCCT PMV Bld Auto 9.9 fL 07/25/2025 7.5 - 12.5 HHCCT Hgb Bld-mCnc 7.8 g/dL Below low normal 07/25/2025 13 - 17.7 HHCCT Hct VFr Bld Auto 23.8 % Below low normal 07/25/2025 39 - 54 HHCCT RDW RBC Auto-Rto 15.7 % Above high normal 07/25/2025 11.5 - 14.5 HHCCT WBC num Bld Auto 4.7 Thou/uL 07/25/2025 4 - 11 HHCCT RBC num Bld Auto 2.46 Mil/uL Below low normal 07/25/2025 4.5 - 6.2 HHCCT Platelet num Bld Auto 207.0 Thou/uL 07/25/2025 150 - 450 HHCCT MCH RBC Qn Auto 31.7 pg Above high normal 07/25/2025 27 - 31 HHCCT MCHC RBC Auto-mCnc 32.8 g/dL 07/25/2025 30 - 36 HHCCT POC Glucose 125.0 mg/dL Above high normal 07/25/2025 65 - 99 HHCCT Vancomycin SerPl-mCnc 20.0 mg/L 07/25/2025 HHCCT Time of last dose Information not given 07/24/2025 HHCCT POC Glucose 75.0 mg/dL 07/24/2025 65 - 99 HHCCT POC Glucose 71.0 mg/dL 07/24/2025 65 - 99 HHCCT POC Glucose 159.0 mg/dL Above high normal 07/24/2025 65 - 99 HHCCT Calcium SerPl-mCnc 7.2 mg/dL Below low normal 07/24/2025 8.7 - 10.5 HHCCT Hct VFr Bld Auto 23.1 % Below low normal 07/24/2025 39 - 54 HHCCT Hgb Bld-mCnc 7.7 g/dL Below low normal 07/24/2025 13 - 17.7 HHCCT Albumin SerPl-mCnc 2.0 g/dL Below low normal 07/24/2025 3.4 - 4.8 HHCCT Magnesium SerPl-mCnc 1.5 mg/dL Below low normal 07/24/2025 1 .6 - 2.7 HHCCT Phosphate SerPl-mCnc 3.0 mg/dL 07/24/2025 2.7 - 4. 5 HHCCT CO2 SerPl-sCnc 22.0 mmol/L 07/24/2025 22 - 33 HH CCT Sodium SerPl-sCnc 135.0 mmol/L Below low normal 07/24/2025 1 36 - 145 HHCCT Chloride SerPl-sCnc 104.0 mmol/L 07/24/2025 98 - 1 07 HHCCT Anion Gap Bld-sCnc 9.0 07/24/2025 7 - 17 HHCCT Calcium SerPl-mCnc 6.9 mg/dL Critically low 07/24/2025 8.7 - 10.5 HHCCT Creat SerPl-mCnc 1.3 mg/dL 07/24/2025 0.5 - 1.3 HH CCT Glucose SerPl-mCnc 181.0 mg/dL Above high normal 07/24/2025 65 - 99 HHCCT BUN SerPl-mCnc 14.0 mg/dL 07/24/2025 8 - [address] BUN/Creat SerPl 11.0 Ratio 07/24/2025 10 - 25 HH CCT Potassium SerPl-sCnc 3.6 mmol/L 07/24/2025 3.4 - 5 .3 HHCCT GFR/BSA.pred SerPlBld [id number] 56.0 Below low normal 07/24/2025 59 - HHCCT RBC num Bld Auto 2.35 Mil/uL Below low normal 07/24/2025 4.5 - 6.2 HHCCT MCV RBC Auto 97.0 fL 07/24/2025 80 - 100 HHCCT Hct VFr Bld Auto 22.9 % Below low normal 07/24/2025 39 - 54 HHCCT WBC num Bld Auto 4.1 Thou/uL 07/24/2025 4 - 11 HHCCT MCHC RBC Auto-mCnc 33.2 g/dL 07/24/2025 30 - 36 HHCCT Hgb Bld-mCnc 7.6 g/dL Below low normal 07/24/2025 13 - 17.7 HHCCT RDW RBC Auto-Rto 15.9 % Above high normal 07/24/2025 11.5 - 14.5 HHCCT PMV Bld Auto 10.9 fL 07/24/2025 7.5 - 12.5 HHCCT Platelet num Bld Auto 150.0 Thou/uL 07/24/2025 150 - 450 HHCCT MCH RBC Qn Auto 32.3 pg Above high normal 07/24/2025 27 - 31 HHCCT Vancomycin SerPl-mCnc 19.0 mg/L 07/23/2025 HHCCT Time of last dose Information not given 07/23/2025 HHCCT Troponin T SerPl-mCnc 30.0 ng/L Above high normal 07/23/2025 - HHCCT Delta NO CHANGE 07/23/2025 - HHCCT Troponin T SerPl-mCnc 28.0 ng/L Above high normal 07/23/2025 - HHCCT Delta 2.0 07/23/2025 - HHCCT Phosphate SerPl-mCnc 2.9 mg/dL 07/23/2025 2.7 - 4. 5 HHCCT Magnesium SerPl-mCnc 1.7 mg/dL 07/23/2025 1.6 - 2. 7 HHCCT Glucose SerPl-mCnc 61.0 mg/dL Below low normal 07/23/2025 65 - 99 HHCCT CO2 SerPl-sCnc 20.0 mmol/L Below low normal 07/23/2025 22 - 33 HHCCT BUN SerPl-mCnc 13.0 mg/dL 07/23/2025 8 - [address] Potassium SerPl-sCnc 3.5 mmol/L 07/23/2025 3.4 - 5 .3 HHCCT Creat SerPl-mCnc 1.4 mg/dL Above high normal 07/23/2025 0.5 - 1.3 HHCCT Chloride SerPl-sCnc 111.0 mmol/L Above high normal 98 - 107 HHCCT BUN/Creat SerPl 9.0 Ratio Below low normal 07/23/2025 10 - 2 5 HHCCT Sodium SerPl-sCnc 146.0 mmol/L Above high normal 07/23/2025 136 - 145 HHCCT Calcium SerPl-mCnc 7.5 mg/dL Below low normal 07/23/2025 8.7 - 10.5 HHCCT Anion Gap Bld-sCnc 15.0 07/23/2025 7 - 17 HHCCT GFR/BSA.pred SerPlBld [id number] 51.0 Below low normal 07/23/2025 59 - HHCCT RDW RBC Auto-Rto 16.3 % Above high normal 07/23/2025 11.5 - 14.5 HHCCT MCH RBC Qn Auto 31.8 pg Above high normal 07/23/2025 27 - 31 HHCCT Hct VFr Bld Auto 26.3 % Below low normal 07/23/2025 39 - 54 HHCCT WBC num Bld Auto 5.6 Thou/uL 07/23/2025 4 - 11 HHCCT MCHC RBC Auto-mCnc 33.1 g/dL 07/23/2025 30 - 36 HHCCT Hgb Bld-mCnc 8.7 g/dL Below low normal 07/23/2025 13 - 17.7 HHCCT PMV Bld Auto 10.6 fL 07/23/2025 7.5 - 12.5 HHCCT RBC num Bld Auto 2.74 Mil/uL Below low normal 07/23/2025 4.5 - 6.2 HHCCT Platelet num Bld Auto 138.0 Thou/uL Below low normal 07/23/2025 150 - 450 HHCCT MCV RBC Auto 96.0 fL 07/23/2025 80 - 100 HHCCT Magnesium SerPl-mCnc 1.7 mg/dL 07/23/2025 1.6 - 2. 7 HHCCT Troponin T SerPl-mCnc 30.0 ng/L Above high normal 07/23/2025 - 23 HHCCT Delta NO PREVIOUS RESULT 07/23/2025 - 3 HHCCT Vancomycin SerPl-mCnc 19.0 mg/L 07/22/2025 HHCCT Time of last dose Information not given 07/22/2025 HHCCT Sodium SerPl-sCnc 143.0 mmol/L 07/22/2025 136 - 14 5 HHCCT GFR/BSA.pred SerPlBld [id number] 62.0 07/22/2025 59 - HHCCT Glucose SerPl-mCnc 107.0 mg/dL Above high normal 07/22/2025 65 - 99 HHCCT Creat SerPl-mCnc 1.2 mg/dL 07/22/2025 0.5 - 1.3 HH CCT Chloride SerPl-sCnc 111.0 mmol/L Above high normal 98 - 107 HHCCT BUN/Creat SerPl 13.0 Ratio 07/22/2025 10 - 25 HH CCT Anion Gap Bld-sCnc 13.0 07/22/2025 7 - 17 HHCCT Potassium SerPl-sCnc 3.8 mmol/L 07/22/2025 3.4 - 5 .3 HHCCT CO2 SerPl-sCnc 19.0 mmol/L Below low normal 07/22/2025 22 - 33 HHCCT Calcium SerPl-mCnc 7.4 mg/dL Below low normal 07/22/2025 8.7 - 10.5 HHCCT BUN SerPl-mCnc 16.0 mg/dL 07/22/2025 8 - [address] Magnesium SerPl-mCnc 1.8 mg/dL 07/22/2025 1.6 - 2. 7 HHCCT Phosphate SerPl-mCnc 2.6 mg/dL Below low normal 07/22/2025 2 .7 - 4.5 HHCCT MCV RBC Auto 97.0 fL 07/22/2025 80 - 100 HHCCT Hct VFr Bld Auto 26.4 % Below low normal 07/22/2025 39 - 54 HHCCT MCHC RBC Auto-mCnc 33.0 g/dL 07/22/2025 30 - 36 HHCCT Platelet num Bld Auto 113.0 Thou/uL Below low normal 07/22/2025 150 - 450 HHCCT Hgb Bld-mCnc 8.7 g/dL Below low normal 07/22/2025 13 - 17.7 HHCCT WBC num Bld Auto 8.1 Thou/uL 07/22/2025 4 - 11 HHCCT PMV Bld Auto 11.3 fL 07/22/2025 7.5 - 12.5 HHCCT RDW RBC Auto-Rto 16.4 % Above high normal 07/22/2025 11.5 - 14.5 HHCCT MCH RBC Qn Auto 31.9 pg Above high normal 07/22/2025 27 - 31 HHCCT RBC num Bld Auto 2.73 Mil/uL Below low normal 07/22/2025 4.5 - 6.2 HHCCT Vancomycin SerPl-mCnc 19.0 mg/L 07/21/2025 HHCCT Time of last dose Information not given 07/21/2025 HHCCT POC Glucose 85.0 mg/dL 07/21/2025 65 - 99 HHCCT POC Glucose 129.0 mg/dL Above high normal 07/21/2025 65 - 99 HHCCT POC Glucose 130.0 mg/dL Above high normal 07/21/2025 65 - 99 HHCCT POC Glucose 88.0 mg/dL 07/21/2025 65 - 99 HHCCT Magnesium SerPl-mCnc 1.6 mg/dL 07/21/2025 1.6 - 2. 7 HHCCT Calcium SerPl-mCnc 7.2 mg/dL Below low normal 07/21/2025 8.7 - 10.5 HHCCT Creat SerPl-mCnc 1.3 mg/dL 07/21/2025 0.5 - 1.3 HH CCT Sodium SerPl-sCnc 144.0 mmol/L 07/21/2025 136 - 14 5 HHCCT Potassium SerPl-sCnc 3.8 mmol/L 07/21/2025 3.4 - 5 .3 HHCCT BUN/Creat SerPl 13.0 Ratio 07/21/2025 10 - 25 HH CCT Anion Gap Bld-sCnc 11.0 07/21/2025 7 - 17 HHCCT BUN SerPl-mCnc 17.0 mg/dL 07/21/2025 8 - [address] GFR/BSA.pred SerPlBld [id number] 56.0 Below low normal 07/21/2025 59 - HHCCT CO2 SerPl-sCnc 19.0 mmol/L Below low normal 07/21/2025 22 - 33 HHCCT Chloride SerPl-sCnc 114.0 mmol/L Above high normal 98 - 107 HHCCT Glucose SerPl-mCnc 63.0 mg/dL Below low normal 07/21/2025 65 - 99 HHCCT Phosphate SerPl-mCnc 3.0 mg/dL 07/21/2025 2.7 - 4. 5 HHCCT WBC num Bld Auto 11.6 Thou/uL Above high normal 07/21/2025 4 - 11 HHCCT RDW RBC Auto-Rto 16.3 % Above high normal 07/21/2025 11.5 - 14.5 HHCCT MCHC RBC Auto-mCnc 33.0 g/dL 07/21/2025 30 - 36 HHCCT Immature Platelet Fraction 5.7 % 07/21/2025 1.2 - 8.6 HHCCT PMV Bld Auto 11.5 fL 07/21/2025 7.5 - 12.5 HHCCT MCV RBC Auto 97.0 fL 07/21/2025 80 - 100 HHCCT Hct VFr Bld Auto 26.1 % Below low normal 07/21/2025 39 - 54 HHCCT MCH RBC Qn Auto 32.1 pg Above high normal 07/21/2025 27 - 31 HHCCT Platelet num Bld Auto 67.0 Thou/uL Below low normal 07/21/2025 150 - 450 HHCCT RBC num Bld Auto 2.68 Mil/uL Below low normal 07/21/2025 4.5 - 6.2 HHCCT Hgb Bld-mCnc 8.6 g/dL Below low normal 07/21/2025 13 - 17.7 HHCCT POC Glucose 70.0 mg/dL 07/21/2025 65 - 99 HHCCT POC Glucose 79.0 mg/dL 07/20/2025 65 - 99 HHCCT POC Glucose 86.0 mg/dL 07/20/2025 65 - 99 HHCCT POC Glucose 104.0 mg/dL Above high normal 07/20/2025 65 - 99 HHCCT Folate SerPl-mCnc 4.9 ng/mL Below low normal 07/20/2025 7.2 - HHCCT Hct VFr Bld Auto 23.6 % Below low normal 07/20/2025 39 - 54 HHCCT Hgb Bld-mCnc 7.9 g/dL Below low normal 07/20/2025 13 - 17.7 HHCCT Troponin T SerPl-mCnc 34.0 ng/L Above high normal 07/20/2025 - 23 HHCCT Delta 7.0 Above high normal 07/20/2025 - 3 H HCCT POC Glucose 117.0 mg/dL Above high normal 07/20/2025 65 - HHCCT POC Glucose 116.0 mg/dL Above high normal 07/20/2025 65 - 99 HHCCT Folate SerPl-mCnc Specimen hemolyzed. Test not performed. 07/20/2025 7.2 - HHCCT Calcium SerPl-mCnc 7.0 mg/dL Below low normal 07/20/2025 8.7 - 10.5 HHCCT BUN SerPl-mCnc 18.0 mg/dL 07/20/2025 8 - [address] CO2 SerPl-sCnc 20.0 mmol/L Below low normal 07/20/2025 22 - 33 HHCCT Sodium SerPl-sCnc 142.0 mmol/L 07/20/2025 136 - 14 5 HHCCT Chloride SerPl-sCnc 113.0 mmol/L Above high normal 98 - 107 HHCCT Creat SerPl-mCnc 1.0 mg/dL 07/20/2025 0.5 - 1.3 HH CCT GFR/BSA.pred SerPlBld [id number] 77.0 07/20/2025 59 - HHCCT Glucose SerPl-mCnc 122.0 mg/dL Above high normal 07/20/2025 65 - 99 HHCCT BUN/Creat SerPl 18.0 Ratio 07/20/2025 10 - 25 HH CCT Potassium SerPl-sCnc 3.9 mmol/L 07/20/2025 3.4 - 5 .3 HHCCT Anion Gap Bld-sCnc 9.0 07/20/2025 7 - 17 HHCCT Phosphate SerPl-mCnc 1.7 mg/dL Below low normal 07/20/2025 2 .7 - 4.5 HHCCT Magnesium SerPl-mCnc 1.7 mg/dL 07/20/2025 1.6 - 2. 7 HHCCT Hgb A1c MFr Bld 6.4 % Above high normal 07/20/2025 - 5.7 HHCCT Est. average glucose Bld gHb Est-mCnc 137.0 mg/dL 07/20/2025 HHCCT MCH RBC Qn Auto 32.1 pg Above high normal 07/20/2025 27 - 31 HHCCT PMV Bld Auto 11.4 fL 07/20/2025 7.5 - 12.5 HHCCT Platelet num Bld Auto 63.0 Thou/uL Below low normal 07/20/2025 150 - 450 HHCCT WBC num Bld Auto 13.1 Thou/uL Above high normal 07/20/2025 4 - 11 HHCCT MCV RBC Auto 94.0 fL 07/20/2025 80 - 100 HHCCT MCHC RBC Auto-mCnc 34.0 g/dL 07/20/2025 30 - 36 HHCCT Hct VFr Bld Auto 23.8 % Below low normal 07/20/2025 39 - 54 HHCCT RBC num Bld Auto 2.52 Mil/uL Below low normal 07/20/2025 4.5 - 6.2 HHCCT RDW RBC Auto-Rto 15.9 % Above high normal 07/20/2025 11.5 - 14.5 HHCCT Immature Platelet Fraction 3.7 % 07/20/2025 1.2 - 8.6 HHCCT Hgb Bld-mCnc 8.1 g/dL Below low normal 07/20/2025 13 - 17.7 HHCCT WBC num/area UrnS HPF >25.0 per hpf Above high normal 07/20/2025 0 - 4 HHCCT Bacteria UrnS Ql Micro Present Abnormal 07/20/2025 - HHCCT Squamous num/area UrnS HPF 2.0 per hpf 07/20/2025 HHCCT Hyaline Casts num/area UrnS LPF Present 07/20/2025 HHCCT RBC num/area UrnS HPF >25.0 per hpf Above high normal 07/20/2025 0 - 4 HHCCT Leukocyte esterase Ur Ql Strip Trace Abnormal 07/20/2025 - HHCCT Hgb Ur Ql Strip Large Abnormal 07/20/2025 - HHC CT Ketones Ur Strip-mCnc 15.0 mg/dL Abnormal 07/20/2025 - HHCCT Sp Gr Ur Strip 1.02 07/20/2025 1.005 - 1.03 HHCCT Prot Ur Strip-mCnc 300.0 mg/dL Abnormal 07/20/2025 - CCT Color Ur Dark yellow 07/20/2025 HHCCT Clarity Ur Cloudy 07/20/2025 HHCCT Nitrite Ur Ql Strip Negative 07/20/2025 - HHCCT Bilirub Ur Strip-mCnc Small Abnormal 07/20/2025 - HHCCT Glucose Ur Strip-mCnc Negative 07/20/2025 - CCT pH Ur Strip 6.0 07/20/2025 5 - 8 HHCCT POC Glucose 120.0 mg/dL Above high normal 07/20/2025 65 - 99 HHCCT Vancomycin SerPl-mCnc 12.0 mg/L 07/20/2025 HHCCT Time of last dose Information not given 07/20/2025 HHCCT Ferritin SerPl-mCnc 710.0 ug/L Above high normal 07/20/2025 30 - 400 HHCCT Vit B12 SerPl-mCnc 1380.0 pg/mL Above high normal 07/20/2025 243 - 894 HHCCT Magnesium SerPl-mCnc 1.4 mg/dL Below low normal 07/20/2025 1 .6 - 2.7 HHCCT Delta NO PREVIOUS RESULT 07/20/2025 - 3 HHCCT Troponin T SerPl-mCnc 27.0 ng/L Above high normal 07/20/2025 - 23 HHCCT Phosphate SerPl-mCnc 1.2 mg/dL Below low normal 07/20/2025 2 .7 - 4.5 HHCCT UIBC SerPl-mCnc 77.0 ug/dL Below low normal 07/20/2025 112 - 346 HHCCT Iron Satn MFr SerPl 21.0 % 07/20/2025 20 - 50 HHCCT TIBC SerPl-mCnc 98.0 ug/dL Below low normal 07/20/2025 100 - 400 HHCCT Iron SerPl-mCnc 21.0 ug/dL Below low normal 07/20/2025 53 - 167 HHCCT Monocytes num Bld Auto 0.32 Thou/uL 07/20/2025 0.2 - 1.5 HHCCT Lymphocytes/leuk NFr Bld Auto 9.0 % 07/20/2025 HHCCT Eosinophil num Bld Auto 0.16 Thou/uL 07/20/2025 0 - 0.7 HHCCT Neutrophils/leuk NFr Bld Auto 83.0 % 07/20/2025 HHCCT Monocytes/leuk NFr Bld Auto 4.0 % 07/20/2025 HHCCT Lymphocytes num Bld Auto 0.71 Thou/uL Below low normal 07/20/2025 1.5 - 4.5 HHCCT Neutrophils num Bld Auto 6.55 Thou/uL 07/20/2025 2 - 7.5 HHCCT Eosinophil/leuk NFr Bld Auto 2.0 % 07/20/2025 HHCCT Imm Granulocytes num Bld Auto 0.16 Thou/uL Above high normal 07/20/2025 0 - 0.1 HHCCT Imm Granulocytes/leuk NFr Bld Auto 2.0 % 07/20/2025 HHCCT Immature Platelet Fraction 3.5 % 07/20/2025 1.2 - 8.6 HHCCT WBC num Bld Auto 7.9 Thou/uL 07/20/2025 4 - 11 HHCCT RDW RBC Auto-Rto 15.7 % Above high normal 07/20/2025 11.5 - 14.5 HHCCT Platelet num Bld Auto 64.0 Thou/uL Below low normal 07/20/2025 150 - 450 HHCCT RBC num Bld Auto 2.72 Mil/uL Below low normal 07/20/2025 4.5 - 6.2 HHCCT Hgb Bld-mCnc 8.7 g/dL Below low normal 07/20/2025 13 - 17.7 HHCCT MCHC RBC Auto-mCnc 33.9 g/dL 07/20/2025 30 - 36 HHCCT PMV Bld Auto 10.6 fL 07/20/2025 7.5 - 12.5 HHCCT MCH RBC Qn Auto 32.0 pg Above high normal 07/20/2025 27 - 31 HHCCT Hct VFr Bld Auto 25.7 % Below low normal 07/20/2025 39 - 54 HHCCT MCV RBC Auto 95.0 fL 07/20/2025 80 - 100 HHCCT Normochromic Bld Ql Smear Present 07/20/2025 HHCCT Normocytes Present 07/20/2025 HHCCT Reticulocyte production index 0.6 % Below low normal 07/20/2025 1 - 2 HHCCT Immature Reticulocyte Fraction 9.1 % 07/20/2025 2.3 - 15.9 HHCCT Retics/100 RBC NFr Auto 1.0 % 07/20/2025 0.7 - 2 HHCCT Hgb Retic Qn Auto 34.8 pg 07/20/2025 28 - 35 H HCCT Retics num Auto 25.8 Thou/uL Below low normal 07/20/2025 30 - 100 HHCCT AST SerPl-cCnc 21.0 U/L 07/20/2025 10 - 55 HHCC T Bilirub SerPl-mCnc 1.0 mg/dL 07/20/2025 0.2 - 1 HHCCT Globulin Ser Calc-mCnc 2.2 g/dL 07/20/2025 1.5 - 3.9 HHCCT Albumin/Glob SerPl 1.0 Ratio 07/20/2025 1 - 3 HHCCT ALT SerPl-cCnc 44.0 U/L 07/20/2025 10 - 55 [facility] T ALP SerPl-cCnc 59.0 U/L 07/20/2025 45 - 128 [facility]CC T Bilirub Direct SerPl-mCnc 0.5 mg/dL Above high normal 07/20/2025 0 - 0.2 HHCCT Prot SerPl-mCnc 4.4 g/dL Below low normal 07/20/2025 6.3 - 8.3 HHCCT Albumin SerPl-mCnc 2.2 g/dL Below low normal 07/20/2025 3.4 - 4.8 HHCCT Haptoglob SerPl-mCnc 179.0 mg/dL 07/20/2025 30 - 2 00 HHCCT Sodium SerPl-sCnc 144.0 mmol/L 07/20/2025 136 - 14 5 HHCCT Chloride SerPl-sCnc 111.0 mmol/L Above high normal 98 - 107 HHCCT GFR/BSA.pred SerPlBld [id number] >90.0 07/20/2025 59 - HHCCT Anion Gap Bld-sCnc 11.0 07/20/2025 7 - 17 HHCCT Calcium SerPl-mCnc 7.3 mg/dL Below low normal 07/20/2025 8.7 - 10.5 HHCCT Potassium SerPl-sCnc 3.0 mmol/L Below low normal 07/20/2025 3.4 - 5.3 HHCCT Creat SerPl-mCnc 0.8 mg/dL 07/20/2025 0.5 - 1.3 HH CCT BUN SerPl-mCnc 16.0 mg/dL 07/20/2025 8 - [address] BUN/Creat SerPl 20.0 Ratio 07/20/2025 10 - 25 HH CCT Glucose SerPl-mCnc 109.0 mg/dL Above high normal 07/20/2025 65 - 99 HHCCT CO2 SerPl-sCnc 22.0 mmol/L 07/20/2025 22 - 33 HH CCT LDH SerPl L to P-cCnc 203.0 U/L 07/20/2025 120 - 260 HHCCT Trigl SerPl-mCnc 149.0 mg/dL 07/20/2025 - 150 HHCCT aPTT PPP 28.0 seconds 07/20/2025 25 - 36 HHCCT Anticoagulant NO ANTI COAGULANT MEDS 07/20/2025 HHCCT D dimer FEU PPP-mCnc 664.0 ng/mL DDU Above high normal 07/20 - 230 HHCCT Fibrinogen PPP-mCnc 526.0 mg/dL Above high normal 07/20/2025 148 - 435 HHCCT INR PPP 1.2 07/20/2025 HHCCT Prothrombin time 13.4 seconds 07/20/2025 10 - 13.5 HHCCT Anticoagulant OTHER AGENT OR UNKNOWN 07/20/2025 HHCCT CO2 BldV-sCnc 27.0 mmol/L 07/20/2025 23 - [address] VFr BldV Calc 11.2 mL/dL 07/20/2025 7.2 - 17 .2 [facility] COHgb MFr Bld 2.9 % Above high normal 07/20/2025 0 - 2 [facility] pH BldV 7.36 07/20/2025 7.33 - 7.43 [facility] pCO2 BldV 46.0 mmHG 07/20/2025 35 - 50 [facility] SaO2 % BldV from pO2 91.2 % 07/20/2025 [facility] MetHgb MFr Bld 0.7 % 07/20/2025 0.4 - 1.5 [facility] T Hgb Bld-mCnc 9.0 g/dL Below low normal 07/20/2025 13 - 17.7 [facility] pO2 BldV 65.0 mmHG Above high normal 07/20/2025 0 - 60 [facility] Base excess BldA Calc-sCnc 0.1 mmol/L 07/20/2025 [facility] Respiratory Information VENT 60% 07/20/2025 [facility] Lactate SerPl-sCnc 0.9 mmol/L 07/20/2025 0.5 - 1.9 [facility] POC Glucose 129.0 mg/dL Above high normal 07/20/2025 65 - 99 [facility] Encounters Encounter Type Encounter Reason Primary Diagnosis Location Date Inpatient Essential (primary) hypertension Essential (primary) hypertension [facility] 07/[facility]/2025 [facility] 07/19/2025 [facility] 07/[facility]/2025 [facility]2025 [facility]2025 [facility]/2025 [facility] 07/[facility]2025 [facility] 07[facility]/2025 [facility] 07/19/2025 Care Team Organization Name [facility] Email Start Date End [facility] 07/27/2025 [facility] 07/[facility]/2025
--- NOTE | 2025-08-09 10:40 | PC.NURSE ---
chronic indwelling carty catheter removed. attempted to place 18fr coudet carty catheter w/ 30cc balloon. multiple attempts made but were unsuccessful by this RN, Meghann VALENZUELA, and STEVE Armenta. large amounts of clots noted when attempting to place carty catheter. no urine output noted. carty catheter remains in place per provider order in attempts for possible drainage. will reassess. pt waiting for abd/pelvis CT to be completed at this time. plan of care ongoing. call milligan placed within reach.
[2025-08-09] MEDS: iohexoL 350 MG/ML 100 ML INFUS..BTL IV (11:35)
--- NOTE | 2025-08-09 12:32 | PC.NURSE ---
carty catheter removed per provider order. pending urology consult.
[2025-08-09] MEDS: vancomycin/NS 2,000 MG/500 ML PLAST..BAG 250 MG IV (14:16)
--- NOTE | 2025-08-09 14:41 | PC.NURSE ---
verbal report given to patient's (sarah) per patient request. pt still continues to pend urology consult at this time. abx infusing per provider order. plan of care ongoing.
[2025-08-09 16:12] LABS: Imm Gran Abs Auto 0.16 X10*3/uL (0.00-0.03); Imm Gran Pct Auto 1.0 % (0.0-0.4); Lymphocytes Absolute Auto 0.8 X10*3/uL (1.2-4.9); MANUAL DIFF FLAG SCAN; Mean Corpuscular HGB Conc 32.2 g/dl (31.0-36.0); Mean Corpuscular Hemoglobin 30.7 pg (27.0-33.0); Mean Corpuscular Volume 95.4 fL (80.0-98.0); NRBC Abs Auto 0.000 X10*3/uL (0.0-0.012); NRBC Pct Auto 0.0 /100WBC (0.0-0.2); Platelet Count 130 X10*3/uL (160-400); Red Blood Count 2.18 X10*6/uL (4.60-5.80); SCAN SMEAR FLAG 1; White Blood Count 15.5 X10*3/uL (4.8-10.8)
[2025-08-09 16:19] LABS: Hematocrit 20.8 % (42.0-52.0); Hemoglobin 6.7 g/dl (14.0-18.0)
--- NOTE | 2025-08-09 16:21 | PM.UROCN ---
History of Present Illness Consult details Consult date: 08/09/25 Narrative: Chronic urinary retention. Urology called to place carty. CT - carty balloon in prostatic urethra CTAP--PELVIC VISCERA: Heterogeneous nodular enlarged prostate gland containing a balloon inflated Carty catheter. Review of Systems Review of Systems: Yes all other systems are reviewed and are negative Constitutional: Constitutional: Reports no additional constitutional complaints Eyes: Eyes: Reports no additional eye complaints ENT: Reports system reviewed and no additional complaints, except as documented Cardiovascular: Cardiovascular: Reports no additional cardiovascular complaints Respiratory: Respiratory: Reports no additional respiratory complaints Gastrointestinal: Gastrointestinal: Reports no additional gastrointestinal complaints Genitourinary: Genitourinary: Reports as per HPI Musculoskeletal: Musculoskeletal: Reports no additional musculoskeletal complaints Integumentary/Breasts: Skin/Breast: Reports system reviewed and no additional complaints, except as docu Neurologic: Reports system reviewed and no additional complaints, except as documented Psychiatric: Psychiatric: Reports no additional psychiatric complaints Endocrine: Endocrine: Reports no additional endocrine complaints Hematologic/Lymphatic: Hematologic/Lymphatic: Reports no additional hematologic/lymphatic complaints Allergic/Immunologic: Allergic/Immunologic: Reports no additional allergic/immunologic complaints [facility] Past Medical History Medical History (Updated 08/13/25 @ 13:03 by Miguel Angel Bartholomew MD) UTI (urinary tract infection) due to urinary indwelling Carty catheter Hematuria Steroid dependence EDWARD (acute kidney injury) Bullous pemphigoid Decubitus ulcer of coccygeal region, stage 2 Acute hypotension Sepsis Aspiration pneumonitis Recurrent UTI (urinary tract infection) Hypotonic neurogenic bladder Lytic lesion of bone on x-ray Wound of foot Anemia Septic shock Shoulder pain Constipation Hematuria Multiple sclerosis Depression Diabetes mellitus type 2 in obese Chronic pain syndrome BPH (benign prostatic hyperplasia) Dehydration Chronic renal failure Urinary tract infection Family History Family History Family/Other Heart attack Father Diabetes Surgical History Surgical History Hx of removal of cyst Social History Social History Household Members: Other Household Members Other:: lives at [facility] on [address] in [place] Housing: Correction Housing Other:: [facility] Do you presently have visiting nurse or other home services: No Unable to assess alcohol history related to: Unable to respond Alcohol intake: current Alcohol intake frequency: holidays/special occasions only Alcohol type: hard liquor Comment: BEDFAST Patient Tobacco Use Status: Former Tobacco user Cigarette Packs Per Day: 1 Smoked in Last 30 Days: No Use of substances other than those prescribed or required for medical reasons: No Currently Displaying Signs/Symptoms of Drug Intoxication Withdrawal: No Have you been hit, kicked, punched, or otherwise hurt by someone within the past year? If so, by whom?: No Do you feel safe in your current relationship?: Yes Is there a partner from a previous relationship who is making you feel unsafe now?: No Are you made to feel afraid or neglected: No Advance Directives: Yes Advance Directives Information Provided: Yes Advance Directives on File: Yes Advance Directives Date on File: 10/13/20 Do you have a plan to hurt others: No Plan Recently lost weight without trying: Unsure Eating poorly because of decreased appetite: No Nutrition Risks: No Nutritional Risk service: No Current occupational status: retired Meds Allergies Allergy/AdvReac Type Severity Reaction Status Date / Time Benzodiazepines Allergy Unknown UNKNOWN Verified 08/09/25 08:50 (BENZODIAZEPINES) dalfampridine (From AMPYRA) Allergy Unknown UNKNOWN Verified 08/09/25 08:50 duloxetine (From CYMBALTA) Allergy Unknown UNKNOWN Verified 08/09/25 08:50 ezetimibe (From ZETIA) Allergy Unknown UNKNOWN Verified 08/09/25 08:50 niacin (NIACIN) Allergy Unknown UNKNOWN Verified 08/09/25 08:50 pravastatin (PRAVASTATIN) Allergy Unknown UNKNOWN Verified 08/09/25 08:50 Kxcptyl-ENZ-TmU Reductase Allergy Unknown UNKNOWN Verified 08/09/25 08:50 Inhibitor ([id number] REDUCTASE INHIBITOR) lorazepam (From ATIVAN) AdvReac Severe EXCESSIVE Verified 08/09/25 08:50 SEDATION doxycycline (DOXYCYCLINE) AdvReac Mild esophogeal Verified 08/09/25 08:50 iritation methylprednisolone (From AdvReac Mild heartburn Verified 08/09/25 08:50 SOLU-MEDROL) ertapenem (From INVANZ) AdvReac Unknown possible Verified 08/09/25 08:50 cause of bullous pemphigoid Active Medications: Current Medications Sodium Chloride (Ns) 1,000 mls @ 999 mls/hr IV .Q1H1M WICHO Stop: 08/09/25 17:00 Last Admin: 08/09/25 16:02 Dose: 999 mls/hr Sodium Chloride (Ns) 1,000 mls @ 999 mls/hr IV .Q1H1M WICHO Stop: 08/09/25 17:00 Last Admin: 08/09/25 16:02 Dose: 999 mls/hr Home Medications ?Medication ?Instructions ?Recorded ?Confirmed ?Last Taken ?Type ceramides 1,3,6-II (CeraVe topical 1 appl topical BID Dry Skin 11/16/23 08/09/25 Unknown History cream) bacitracin 500 unit/gram topical 1 appl topical BID 07/11/25 08/09/25 Unknown History ointment acetaminophen 325 mg tablet 650 mg PO BEDTIME 08/09/25 08/09/25 Unknown History acetaminophen 325 mg tablet 650 mg PO Q4H PRN mild pain/temp 08/09/25 08/09/25 Unknown History 100F amlodipine 10 mg tablet 10 mg PO DAILY 08/09/25 08/09/25 Unknown History ascorbic acid (vitamin C) 500 mg 500 mg PO DAILY 08/09/25 08/09/25 Unknown History tablet aspirin 81 mg tablet,delayed 81 mg PO DAILY 08/09/25 08/09/25 Unknown History release benzocaine 6 mg-menthol 10 mg 1 ray mucous membrane QID PRN Sore 08/09/25 08/09/25 Unknown History lozenges (Chloraseptic Sore Throat) Throat bisacodyl 10 mg rectal suppository 10 mg CA DAILY PRN Constipation 08/09/25 08/09/25 Unknown History bisacodyl 5 mg tablet 5 mg PO DAILY PRN Constipation 08/09/25 08/09/25 Unknown History bismuth subsalicylate 262 mg/15 mL 524 mg PO Q8H PRN UPSET 08/09/25 08/09/25 Unknown History oral suspension (Pepto-Bismol) STOMACH/NAUSEA carboxymethylcellulose sodium 0.5 1 drp ophthalmic (eye) QID 08/09/25 08/09/25 Unknown History % eye drops (Refresh Tears) carvedilol 12.5 mg tablet 12.5 mg PO BID 08/09/25 08/09/25 Unknown History cholecalciferol (vitamin D3) 25 25 mcg PO DAILY 08/09/25 08/09/25 Unknown History mcg (1,000 unit) tablet docusate sodium 100 mg capsule 200 mg PO BID 08/09/25 08/09/25 Unknown History famotidine 20 mg tablet 20 mg PO DAILY 08/09/25 08/09/25 Unknown History ferrous sulfate 325 mg (65 mg 325 mg PO DAILY 08/09/25 08/09/25 Unknown History iron) tablet folic acid 1 mg tablet 1 mg PO DAILY 08/09/25 08/09/25 Unknown History gabapentin 300 mg capsule 300 mg PO TID 08/09/25 08/09/25 Unknown History guaifenesin 100 mg/5 mL oral liquid 200 mg PO Q4H PRN Cough 08/09/25 08/09/25 Unknown History guaifenesin 600 mg tablet, 600 mg PO Q12H PRN Cold Symptoms 08/09/25 08/09/25 Unknown History extended release 12 hr (Mucinex) insulin glargine-yfgn 100 unit/mL 3 unit subcut BEDTIME 08/09/25 08/09/25 Unknown History subcutaneous solution insulin lispro 100 unit/mL 1 sliding scale dose subcut BID 08/09/25 08/09/25 Unknown History subcutaneous pen (Admelog SoloStar U-100 Insulin lispro) lactulose 10 gram/15 mL oral 20 g PO DAILY 08/09/25 08/09/25 Unknown History solution lanolin alcohols-mineral 1 appl topical BID 08/09/25 08/09/25 Unknown History oil-w.petrolatum-ceresin topical cream magnesium hydroxide 400 mg/5 mL 30 ml PO BEDTIME PRN Constipation 08/09/25 08/09/25 Unknown History oral suspension (Milk of Magnesia) methotrexate sodium 2.5 mg tablet 15 mg PO MO@0900 08/09/25 08/09/25 Unknown History multivitamin 1 tab PO DAILY 08/09/25 08/09/25 Unknown History naloxone 0.4 mg/mL injection 0.4 mg IM Q2M PRN OPIOD OVERDOSE 08/09/25 08/09/25 Unknown History solution ondansetron 4 mg disintegrating 4 mg PO Q4H PRN NAUSEA/VOMITING 08/09/25 08/09/25 Unknown History tablet polyethylene glycol 3350 17 17 g PO DAILY 08/09/25 08/09/25 Unknown History gram/dose oral powder (Miralax) prednisone 2.5 mg tablet 2.5 mg PO DAILY 08/09/25 08/09/25 Unknown History ramelteon 8 mg tablet (Rozerem) 8 mg PO BEDTIME PRN Insomnia 08/09/25 08/09/25 Unknown History rosuvastatin 10 mg tablet 10 mg PO BEDTIME 08/09/25 08/09/25 Unknown History sennosides 8.6 mg-docusate sodium 2 tab-cap PO BEDTIME 08/09/25 08/09/25 Unknown History 50 mg tablet simethicone 80 mg chewable tablet 80 mg PO Q6H PRN GAS 08/09/25 08/09/25 Unknown History sodium phosphates 19 gram-7 118 ml CA DAILY PRN Constipation 08/09/25 08/09/25 Unknown History gram/118 mL enema (Fleet Enema) tramadol 50 mg tablet 50 mg PO BEDTIME PRN Pain (Scale 08/09/25 08/09/25 Unknown History Score 4-6) trazodone 50 mg tablet 50 mg PO BEDTIME PRN Insomnia 08/09/25 08/09/25 Unknown History vancomycin 500 mg/100 mL in 0.9% 500 mg IV DAILY 08/09/25 08/09/25 Unknown History sodium chloride intravenous piggyback white petrolatum 57 % topical 1 ea topical DAILY 08/09/25 08/09/25 Unknown History paste (Remedy Phytoplex Z-Guard) Physical Exam Vital Signs: Vital Signs: Last Vital Signs Temp 99 F 08/09/25 16:09 Pulse 88 08/09/25 16:09 Resp 15 08/09/25 16:09 BP 95/39 L 08/09/25 16:09 Pulse Ox 99 08/09/25 16:09 O2 Del Method Room Air 08/09/25 16:09 BMI result Body Mass Index 22.5 : Other: blood at [facility] Results Labs 08/13/25 06:11 08/13/25 06:11 Labs: Abnormal lab results 08/09/25 08/09/25 Range/Units 09:19 15:58 WBC 14.8 H (4.8-10.8) X10*3/uL RBC 2.39 L (4.60-5.80) X10*6/uL Hgb 7.6 L (14.0-18.0) g/dl Hct 22.4 L (42.0-52.0) % Plt Count 139 L D (160-400) X10*3/uL Immature Gran % (Auto) 1.2 H (0.0-0.4) % Neut % (Auto) 90.0 H (45-73) % Lymph % (Auto) 3.9 L (20-40) % Lymph # (Auto) 0.6 L (1.2-4.9) X10*3/uL Abs Immat Gran (auto) 0.18 H (0.00-0.03) X10*3/uL Absolute Neuts (auto) 13.3 H (2.0-8.3) x10*3/uL BUN 17 H (9-16) mg/dL Calcium 7.8 L (8.4-10.2) mg/dL Alkaline Phosphatase 126 H (39-117) U/L Total Protein 5.7 L (6.5-8.0) g/dL Albumin 2.6 L (3.5-5.0) g/dL Crossmatch See Detail Short CBC 08/09/25 Range/Units 09:19 WBC 14.8 H (4.8-10.8) X10*3/uL Hgb 7.6 L (14.0-18.0) g/dl Hct 22.4 L (42.0-52.0) % Plt Count 139 L D (160-400) X10*3/uL BMP 08/09/25 09:19 Sodium 136 Potassium 4.4 D Chloride 104 Carbon Dioxide 23 BUN 17 H Creatinine 1.30 Calcium 7.8 L Liver Function 08/09/25 Range/Units 09:19 Total Bilirubin 0.6 (0.0-1.0) mg/dL AST 30 (5-37) U/L ALT 12 (0-40) U/L Alkaline Phosphatase 126 H (39-117) U/L Albumin 2.6 L (3.5-5.0) g/dL Imaging Additional studies: Date of Service: 08/09/25 Reason for Exam: hematuria, carty cath obstruction EXAMINATION: CT ABDOMEN AND PELVIS WITH CONTRAST CLINICAL INFORMATION: Hematuria. Carty catheter obstruction. COMPARISON: July 15, 2025. TECHNIQUE: Multidetector volumetric images were obtained from the superior aspect of the liver through the pubic symphysis following administration 85 mL of Omnipaque 350 intravenous contrast. Sagittal and coronal reformatted images were obtained on the technologist's workstation. Oral contrast: No This CT examination was performed using dose optimization techniques as appropriate, variously including the following: *Automated exposure control *Adjustment of mA and/or kV according to patient size (this includes techniques or standardized protocols for targeted exams where dose is matched to indication/reason for exam; i.e. extremities or head) *Use of iterative reconstruction technique DLP: 619 mGy centimeter. FINDINGS: LUNG BASES: Patchy and linear attenuation, lung bases right middle lung lobe and lingula. Small volume left sided pleural effusion. Questionable 3 mm pulmonary nodule, right lung base.. LIVER, GALLBLADDER, AND BILIARY TREE: Liver measures 10 cm. No focal lesion.. Gallbladder is fluid-filled mildly prominent. There is a 3 mm gallbladder wall. No pericholecystic fluid collection. Common bile duct measures 6 mm and then in likely common channel with the main pancreatic duct. PANCREAS: Main pancreatic duct at the head of the pancreas measures 6 mm. No peripancreatic fluid collection. SPLEEN: 8 cm. No focal mass. ADRENAL GLANDS: No nodular lesions. KIDNEYS AND URETERS: No hydronephrosis. No gross nephrolithiasis. Normal enhancement pattern of the renal parenchyma. 1.3 cm exophytic thin septated cystic lesion, lower pole left kidney. BLADDER: Trabeculated bladder wall. Intraluminal hyperdensity in a dependent portion of the lumen. Gas in the periphery of the bladder. GASTROINTESTINAL TRACT: There is an edematous wall of the rectum. There is extraluminal gas in the right lateral perirectal fat. There is abundant stool in the large intestine. No intestinal obstruction pattern. There are 17 mm linear metallic foreign bodies, one in the duodenal jejunal junction and the other one in the cecum. No ascites. No peripheral enhancing fluid collection.. ABDOMINAL WALL: Probable left lateral abdominal wall defect containing eventration/herniation of the intra-abdominal organs. LYMPH NODES: No gross mesenteric or retroperitoneal lymphadenopathy. VASCULAR: Calcified plaques in the thoracic aorta abdominal aorta and iliac arteries femoral and superficial femoral arteries and at the origin of the mesenteric arteries and main renal arteries. No aneurysm or dissection, abdominal aorta. Calcified plaques in the coronary arteries. PELVIC VISCERA: Heterogeneous nodular enlarged prostate gland containing a balloon inflated Carty catheter. OSSEOUS STRUCTURES: Multilevel thoracolumbar spondylosis. Old superior endplate compression deformity representing 20% volume loss at L1. Incomplete ankylosis L4-5 and L5-S1. Chondrocalcinosis at multiple levels. Osteopenia versus osteoporosis. CT/CT abdomen pelvis w IV con IMPRESSION: Carty catheter balloon inflated in the prostatic urethra with likely blood products layering in the urinary bladder lumen and likely post instrumentation gas. Trabeculated urinary bladder wall. Extraluminal gas right lateral perirectal concerning for perforation. Metallic foreign bodies at the duodenal jejunal junction and cecum. Eventration, left lateral abdominal wall. Left-sided pleural effusion and compression atelectasis versus airspace disease, lung bases. Questionable 4 mm pulmonary nodule right lung base. Assessment and Plan (1) Chronic indwelling Carty catheter: Status: Acute (2) Obstructive uropathy: Status: Acute (3) MRSA bacteremia: Status: Acute Plan 18 fr confederated goshute tip placed via cystoscopic guidance, over guidewire Recommend outpatient follow-up to schedule suprapubic tube Procedures Date of Service Date of Service: 08/13/25 Catheter Insertion (Urinary) Date of insertion: 08/09/25 Time of insertion: 16:21 Replacement of catheter present on admission: Yes Reason for placing: Other (hematuria) Bladder scan/ultrasound used before catheterization: No Antiseptic solution prep: Povidone-Iodine Topical anesthesia used: Yes Catheter type/location: 2-way Urethral Size (Ivorian): 18 Catheter balloon size (mL): 10 Catheter balloon amount: 15 Comment: cystoscopy with guide wire
[2025-08-09 16:24] LABS: Anion Gap 9 (12-20); Blood Urea Nitrogen 18 mg/dL (9-16); Calcium 7.4 mg/dL (8.4-10.2); Carbon Dioxide 25 mmol/L (22-29); Chloride 105 mmol/L (96-108); Creatinine Clr Calc Pharmacy 41.4; Estimated Glomerular Filt Rate 43; Potassium 5.0 mmol/L (3.3-5.1); Sodium 134 mmol/L (135-145)
--- NOTE | 2025-08-09 16:44 | PC.NURSE ---
urologist called bedside d/t previous attempts at placing carty catheter. dr. cardenas was successful placing an 18fr coudet carty catheter w/ 10cc balloon. large amount of hematuria/clots noted immediately post output. urine specimen obtained/sent to lab. pt noted to become hypotensive after carty catheter was placed. all other vss. provider notified/aware. additional 18gIV placed in the right wrist. 2L of NS infusing per provider order. pt signed blood transfusion consent w/ provider. pending blood transfusion at this time. plan of care ongoing. call milligan placed within reach.
--- NOTE | 2025-08-09 17:04 | P.HPHOSP_ITS ---
History of Present Illness Date of Service: 08/09/25 Chief Complaint: Hematuria, urinary retention, This has a 80-year-old chronically bed bound male, resident of [facility] with pertinent history of bullous pemphigoid, MS, chronic Carty, mood disorder, insulin-dependent type 2 diabetes mellitus, mixed hyperlipidemia, hypertension chronic indwelling carty cath. Patient has had recent carty catheter changed and has had limited urine output and blood and clots. Bladder scan had shown retention of 354. CBC show hemoglobin of 6.7, baseline about 9 to 10. He has new EDWARD with creatine of 1.56, baseline less than 1. CT of abdomen and pelvis show Carty catheter balloon inflated in the prostatic urethra with likely blood products layering in the urinary bladder lumen and likely post instrumentation gas. Trabeculated urinary bladder wall. Extraluminal gas right lateral perirectal concerning for perforation. Metallic foreign bodies at the duodenal jejunal junction and cecum. Eventration, left lateral abdominal wall. Left-sided pleural effusion and compression atelectasis versus airspace disease, lung bases. Questionable 4 mm pulmonary nodule right lung bases Urology has inserted a new Carty that is draining well. Surgery review CT finding and no indication for intervention. Of note he was recently admitted to the hospital and treated for MRSA bacteremia, during hospital stay had upper GI bleed and had EGD and suffered esophageal injury with bleeding and clot and was transfered to tertiary care center for thoracic surgery eval He was recently admitted for UTI, Edward and upper GI Bleeding Review of Systems 2 Review of Systems: Gen: no fever Resp: no sob, no cough CV: no chest, no RIGGINS, no leg edema GI: No n/v, no abd pain Neuro: No confusion [facility] Medical History Steroid dependence EDWARD (acute kidney injury) UTI (urinary tract infection) due to urinary indwelling Carty catheter Bullous pemphigoid Decubitus ulcer of coccygeal region, stage 2 Acute hypotension Sepsis Aspiration pneumonitis Recurrent UTI (urinary tract infection) Hypotonic neurogenic bladder Lytic lesion of bone on x-ray Wound of foot Anemia Septic shock Shoulder pain Constipation Hematuria Multiple sclerosis Depression Diabetes mellitus type 2 in obese Chronic pain syndrome BPH (benign prostatic hyperplasia) Dehydration Chronic renal failure Urinary tract infection Family History Family/Other Heart attack Father Diabetes Surgical History Hx of removal of cyst Social History Household Members: Other Household Members Other:: lives at [facility] on [address] in [place] Housing: Correction Housing Other:: [facility] Do you presently have visiting nurse or other home services: No Unable to assess alcohol history related to: Unable to respond Alcohol intake: current Alcohol intake frequency: holidays/special occasions only Alcohol type: hard liquor Comment: BEDFAST Patient Tobacco Use Status: Former Tobacco user Cigarette Packs Per Day: 1 Smoked in Last 30 Days: No Use of substances other than those prescribed or required for medical reasons: No Have you been hit, kicked, punched, or otherwise hurt by someone within the past year? If so, by whom?: No Do you feel safe in your current relationship?: Yes Is there a partner from a previous relationship who is making you feel unsafe now?: No Are you made to feel afraid or neglected: No Advance Directives: Yes Advance Directives Information Provided: Yes Advance Directives on File: Yes Advance Directives Date on File: 10/13/20 Do you have a plan to hurt others: No Plan Recently lost weight without trying: Unsure Eating poorly because of decreased appetite: No Nutrition Risks: No Nutritional Risk service: No Current occupational status: retired Meds Allergies Allergy/AdvReac Type Severity Reaction Status Date / Time Benzodiazepines Allergy Unknown UNKNOWN Verified 08/09/25 08:50 (BENZODIAZEPINES) dalfampridine (From AMPYRA) Allergy Unknown UNKNOWN Verified 08/09/25 08:50 duloxetine (From CYMBALTA) Allergy Unknown UNKNOWN Verified 08/09/25 08:50 ezetimibe (From ZETIA) Allergy Unknown UNKNOWN Verified 08/09/25 08:50 niacin (NIACIN) Allergy Unknown UNKNOWN Verified 08/09/25 08:50 pravastatin (PRAVASTATIN) Allergy Unknown UNKNOWN Verified 08/09/25 08:50 Jtwtrbe-WVY-CtR Reductase Allergy Unknown UNKNOWN Verified 08/09/25 08:50 Inhibitor ([id number] REDUCTASE INHIBITOR) lorazepam (From ATIVAN) AdvReac Severe EXCESSIVE Verified 08/09/25 08:50 SEDATION doxycycline (DOXYCYCLINE) AdvReac Mild esophogeal Verified 08/09/25 08:50 iritation methylprednisolone (From AdvReac Mild heartburn Verified 08/09/25 08:50 SOLU-MEDROL) ertapenem (From INVANZ) AdvReac Unknown possible Verified 08/09/25 08:50 cause of bullous pemphigoid Active Medications: Current Medications Sodium Chloride (0.9 % Sodium Chloride Flush 3 Ml Syringe) 3 [facility] Medications ?Medication ?Instructions ?Recorded ?Confirmed ?Last Taken ?Type ceramides 1,3,6-II (CeraVe topical 1 appl topical BID Dry Skin 11/16/23 08/09/25 Unknown History cream) bacitracin 500 unit/gram topical 1 appl topical BID 08/09/25 Unknown History ointment acetaminophen 325 mg tablet 650 mg PO BEDTIME 08/09/25 08/09/25 Unknown History acetaminophen 325 mg tablet 650 mg PO Q4H PRN mild kory n/temp 08/09/25 08/09/25 Unknown History 100F amlodipine 10 mg tablet 10 mg PO DAILY 08/09/25 09/0 08/25 Unknown History ascorbic acid (vitamin C) 500 mg 500 mg PO DAILY 08/0908/09/25 Unknown History tablet aspirin 81 mg tablet,delayed 81 mg PO DAILY 08/09/25 0 08/09/25 Unknown History release benzocaine 6 mg-menthol 10 mg 1 ray mucous membrane QI D PRN Sore 08/09/25 08/09/25 Unknown History lozenges (Chloraseptic Sore Throat) Throat bisacodyl 10 mg rectal suppository 10 mg [place] DAILY PRN Constipation 08/09/25 08/09/25 Unknown History bisacodyl 5 mg tablet 5 mg PO DAILY PRN Constipati on 08/09/25 08/09/25 Unknown History bismuth subsalicylate 262 mg/15 mL 524 mg PO Q8H PRN U PSET 08/09/25 08/09/25 Unknown History oral suspension (Pepto-Bismol) STOMACH/NAUSEA carboxymethylcellulose sodium 0.5 1 drp ophthalmic (ey e) QID 08/09/25 08/09/25 Unknown History % eye drops (Refresh Tears) carvedilol 12.5 mg tablet 12.5 mg PO BID 08/09/2508/25 Unknown History cholecalciferol (vitamin D3) 25 25 mcg PO DAILY 08/09/25 Unknown History mcg (1,000 unit) tablet docusate sodium 100 mg capsule 200 mg PO BID 08/09/25 08/09/25 Unknown History famotidine 20 mg tablet 20 mg PO DAILY 08/09/2508/25 Unknown History ferrous sulfate 325 mg (65 mg 325 mg PO DAILY 08/09/25 08/09/25 Unknown History iron) tablet folic acid 1 mg tablet 1 mg PO DAILY 08/09/2508/09 Unknown History gabapentin 300 mg capsule 300 mg PO TID 08/09/2508/09 Unknown History guaifenesin 100 mg/5 mL oral liquid 200 mg PO Q4H PRN Cough 08/09/25 08/09/25 Unknown History guaifenesin 600 mg tablet, 600 mg PO Q12H PRN Cold Sym ptoms 08/09/25 08/09/25 Unknown History extended release 12 hr (Mucinex) insulin glargine-yfgn 100 unit/mL 3 unit subcut BEDTIM E 08/09/25 08/09/25 Unknown History subcutaneous solution insulin lispro 100 unit/mL 1 sliding scale dose subcut BID 08/09/25 08/09/25 Unknown History subcutaneous pen (Admelog SoloStar U-100 Insulin lispro) lactulose 10 gram/15 mL oral 20 g PO DAILY 08/09/25 Unknown History solution lanolin alcohols-mineral 1 appl topical BID 08/09/25 08/09/25 Unknown History oil-w.petrolatum-ceresin topical cream magnesium hydroxide 400 mg/5 mL 30 ml PO BEDTIME PRN C onstipation 08/09/25 08/09/25 Unknown History oral suspension (Milk of Magnesia) methotrexate sodium 2.5 mg tablet 15 mg PO MO@0900 08/2508/09/25 Unknown History multivitamin 1 tab PO DAILY 08/09/2508/25 Unknown History naloxone 0.4 mg/mL injection 0.4 mg IM Q2M PRN OPIOD O VERDOSE 08/09/25 08/09/25 Unknown History solution ondansetron 4 mg disintegrating 4 mg PO Q4H PRN NAUSEA /VOMITING 08/09/25 08/09/25 Unknown History tablet polyethylene glycol 3350 17 17 g PO DAILY 08/09/2508/25 Unknown History gram/dose oral powder (Miralax) prednisone 2.5 mg tablet 2.5 mg PO DAILY 08/09/2508/25 Unknown History ramelteon 8 mg tablet (Rozerem) 8 mg PO BEDTIME PRN In somnia 08/09/25 08/09/25 Unknown History rosuvastatin 10 mg tablet 10 mg PO BEDTIME 08/09/25 Unknown History sennosides 8.6 mg-docusate sodium 2 tab-cap PO BEDTIME 08/09/25 08/09/25 Unknown History 50 mg tablet simethicone 80 mg chewable tablet 80 mg PO Q6H PRN GAS 08/09/25 08/09/25 Unknown History sodium phosphates 19 gram-7 118 ml AZ DAILY PRN Consti pation 08/09/25 08/09/25 Unknown History gram/118 mL enema (Fleet Enema) tramadol 50 mg tablet 50 mg PO BEDTIME PRN Pain (S josselin 08/09/25 08/09/25 Unknown History Score 4-6) trazodone 50 mg tablet 50 mg PO BEDTIME PRN Insomni a 08/09/25 08/09/25 Unknown History vancomycin 500 mg/100 mL in 0.9% 500 mg IV DAILY 08/0908/09/25 Unknown History sodium chloride intravenous piggyback white petrolatum 57 % topical 1 ea topical DAILY 08/0908/09/25 Unknown History paste (Remedy Phytoplex Z-Guard) Physical Exam 2 Vital Signs and Narrative: Vital Signs: Last Vital Signs Temp 99 F 08/09/25 16:09 Pulse 86 08/09/25 16:43 Resp 17 08/09/25 16:43 BP 110/37 L 08/09/25 16:43 Pulse Ox 99 08/09/25 16:43 O2 Del Method Room Air 08/09/25 16:43 BMI result Body Mass Index 22.5 Const: Other: General: AO X 3, no acute distress Resp: CTA bilateral CVS: S1,S2,RRR GI: +BS, NT, no distention Skin: No rash Neuro: motor grossly intact Psych: appropriate affect Results Labs 08/10/25 07:29 08/10/25 04:11 Labs: Laboratory Results - last 24 hr 08/09/25 08/09/25 08/09/25 09:19 10:19 15:58 MCV 93.7 MCH 31.8 MCHC 33.9 RDW 15.3 Plt Count 139 L D MPV 9.8 Immature Gran % (Auto) 1.2 H Neut % (Auto) 90.0 H Lymph % (Auto) 3.[address] % (Auto) 3.6 Eos % (Auto) 1.0 Baso % (Auto) 0.3 Lymph # (Auto) 0.[address] # (Auto) 0.5 Eos # (Auto) 0.2 Baso # (Auto) 0.0 Abs Immat Gran (auto) 0.18 H Absolute Neuts (auto) 13.3 H Absolute Nucleated RBC 0.000 Nucleated RBC % (auto) 0.0 Smear Tech's Comments Anion Gap 13 Estim Creat Clear Calc 49.7 Estimated GFR 53 Random Glucose 109 Lactic Acid 1.8 Calcium 7.8 L Magnesium 2.0 Total Bilirubin 0.6 AST 30 ALT 12 Alkaline Phosphatase 126 H Total Protein 5.7 L Albumin 2.6 L Blood Type B Positive Antibody Screen NEGATIVE Crossmatch See Detail 08/09/25 15:59 MCV 95.4 MCH 30.7 MCHC 32.2 RDW 15.7 Plt Count 130 L MPV 10.0 Immature Gran % (Auto) 1.0 H Neut % (Auto) 90.6 H Lymph % (Auto) 4.[address] % (Auto) 2.5 Eos % (Auto) 0.7 Baso % (Auto) 0.4 Lymph # (Auto) 0.[address] # (Auto) 0.4 Eos # (Auto) 0.1 Baso # (Auto) 0.1 Abs Immat Gran (auto) 0.16 H Absolute Neuts (auto) 14.0 H Absolute Nucleated RBC 0.000 Nucleated RBC % (auto) 0.0 Smear Tech's Comments VERIFIED Anion Gap 9 L Estim Creat Clear Calc 41.4 Estimated GFR 43 Random Glucose 117 H Lactic Acid Calcium 7.4 L Magnesium Total Bilirubin AST ALT Alkaline Phosphatase Total Protein Albumin Blood Type Antibody Screen Crossmatch Imaging Radiologist's Impressions: Impressions Abdomen/Pelvis CT 08/09/25 10:48 IMPRESSION: Carty catheter balloon inflated in the prostatic urethra with likely blood products layering in the urinary bladder lumen and likely post instrumentation gas. Trabeculated urinary bladder wall. Extraluminal gas right lateral perirectal concerning for perforation. Metallic foreign bodies at the duodenal jejunal junction and cecum. Eventration, left lateral abdominal wall. Left-sided pleural effusion and compression atelectasis versus airspace disease, lung bases. Questionable 4 mm pulmonary nodule right lung base. Discussed with the emergency physician floor covering printer assistant, Fadumo Castañeda at 11:40 AM on August 09, 2025. [ Fleischner guidelines were followed. Electronically signed by: Blas Gould MD 08/09/2025 12:05 PM EDT RP Assessment and Plan (1) Hematuria: Status: Acute (2) Proctitis: Status: Acute Plan 80-year-old chronically bed bound male, resident of [facility] with pertinent history of bullous pemphigoid, MS, chronic Carty, mood disorder, insulin- dependent type 2 diabetes mellitus, mixed hyperlipidemia, hypertension who was sent to the emergency department for evaluation hematuria and urinary retention Hematuria d/t traumatic carty with bladder injury with extraluminar air seen by Uro, Carty cath properly inserted by urology, seen by surgery no intervention needed transfuse and monitor H/H Acute kidney injury d/t urinary retention, IVF and repeat labs tomorrow Anemia of chronic disease with acute blood loss anemia--see above Recent history of MRSA bacteremia, on Vancomycin..Gotten dose today check Random vanco tomorrow and redose as needed HyPotension not due to sepsis, rather from chronic anemia on top of acute blood loss anemia Bullous pemphigoid: On methotrexate. Continue Mixed hyperlipidemia: On statin Hypertension resume home meds once med rec completed Insulin-dependent type 2 diabetes mellitus: Sliding scale insulin idabetic diet DVT prophylaxis: compression device in light of hematuria and acut Full code. Quality Stroke Does the patient have a stroke diagnosis?: No VTE Prior VTE?: No VTE Risk Level:: Medical - moderate - high VTE Device Contraindication: Treatment Not Tolerated VTE Drug Contraindication: Treatment Not Tolerated
[2025-08-09 17:39] LABS: Appearance Urine Cloudy; Glucose Urine UA Negative (Negative); PH 7.0 (5.0-9.0); Specific Gravity - Urine 1.015 (1.005-1.025); UMIC TRIGGER UACC YES
[2025-08-09 17:44] LABS: UACC Culture Trigger YES
--- NOTE | 2025-08-09 18:02 | PC.NURSE ---
Pt tolerating blood transfusion with no adverse reactions. Pt is sleeping, vitals stable, BP still low. Vanco still infusing, will alert phlebotomy for Vanc draw.
--- NOTE | 2025-08-09 18:59 | PHA.MEDREC ---
Pharmacy Consult ? Medication Reconciliation Pharmacy has completed the medication reconciliation.Med rec complete, used list from [facility] on [place]
--- NOTE | 2025-08-09 23:29 | MHC.EDTECH ---
tried to draw inpatient order of a [facility]
[2025-08-10] VITALS (15 sets, daily range): BP systolic 118–194; BP diastolic 51–97; PULSE 68–104; RESP 14–18; TEMP 36.2–37.1; O2SAT 94–99; BMI 22.7
--- NOTE | 2025-08-10 02:08 | PC.NURSE ---
Patient is resting comfortably in room, lights are dimmed, and carty is patent. Patients VSS, and chest rise and fall is equal. RR are 18. Callbell is in reach along with personal belongings. Plan of care is ongoing.
[2025-08-10 05:23] LABS: Alanine Aminotransferase 9 U/L (0-40); Albumin Level 2.3 g/dL (3.5-5.0); Alkaline Phosphatase 105 U/L (39-117); Anion Gap 12 (12-20); Aspartate Amino Transferase 23 U/L (5-37); Blood Urea Nitrogen 20 mg/dL (9-16); Calcium 7.3 mg/dL (8.4-10.2); Carbon Dioxide 21 mmol/L (22-29); Chloride 108 mmol/L (96-108); Creatinine Clr Calc Pharmacy 41.9; Estimated Glomerular Filt Rate 44; Potassium 4.8 mmol/L (3.3-5.1); Sodium 136 mmol/L (135-145); Total Protein 5.1 g/dL (6.5-8.0)
--- NOTE | 2025-08-10 05:29 | PC.NURSE ---
No order for morning labs for CBC after transfusion. Asked Javier Arredondo if he would like a morning CBC drawn, asked nurse to put the orders in for morning draw. Confirmed order with provider and added to the chart.
[2025-08-10 07:40] LABS: Hematocrit 22.6 % (42.0-52.0); Hemoglobin 8.0 g/dl (14.0-18.0); Imm Gran Abs Auto 0.13 X10*3/uL (0.00-0.03); Imm Gran Pct Auto 0.9 % (0.0-0.4); Lymphocytes Absolute Auto 0.7 X10*3/uL (1.2-4.9); MANUAL DIFF FLAG SCAN; Mean Corpuscular HGB Conc 35.4 g/dl (31.0-36.0); Mean Corpuscular Hemoglobin 32.0 pg (27.0-33.0); Mean Corpuscular Volume 90.4 fL (80.0-98.0); NRBC Abs Auto 0.000 X10*3/uL (0.0-0.012); NRBC Pct Auto 0.0 /100WBC (0.0-0.2); Platelet Count 116 X10*3/uL (160-400); Red Blood Count 2.50 X10*6/uL (4.60-5.80); SCAN SMEAR FLAG 1; White Blood Count 13.9 X10*3/uL (4.8-10.8)
[2025-08-10] MEDS: Ferrous Sulfate 324 MG TABLET.DR PO (09:24)
[2025-08-10] MEDS: 0.9 % Sodium Chloride Flush 3 ML SYRINGE IVFLUSH ×3 (09:28→23:50)
--- NOTE | 2025-08-10 09:34 | PC.NURSE ---
Primary nurse made aware of blood in urine, medications given per MAR, pharmacy messaged at this time for the medications that are not currently in ED
--- NOTE | 2025-08-10 10:21 | PC.NURSE ---
Assumed care of patient. Pt is A+Ox4, calm, cooperative. Pt is confused to day of week but knows it is 2024. RR even and unlabored, c/o abdominal pain, no other complaints.
--- NOTE | 2025-08-10 10:35 | PC.NURSE ---
pt has sore on cocyx and between but cheeks, cushion banage applied to prevent further bed sore. Bed sore above butt cheek bright red. Pt continues to have bright red urine draining in carty.
[2025-08-10 11:51] LABS: Glucose, Whole Blood 110 mg/dL (60-115)
--- NOTE | 2025-08-10 14:26 | MHC.CM.PN ---
pt from [facility] whee he will return when dcd
--- NOTE | 2025-08-10 15:46 | MHC.CLN ---
NUTRITION DIET RX DIABETIC 1999. SKIN WITH PRESSURE INJURY TO COCCYX. ADDING ENSURE MAX BID. PROVIDES 300 KCALS, 60 G PROTEIN. SUPPLEMENT TO INCREASE NUTRITIONAL INTAKE AND PROMOTE WOUND HEALING. SIGNIFICANT WEIGHT LOSS X 30 DAYS, -9.4%. HX POOR PO INTAKE PRIOR ADM 07/2025. FOLLOW FOR PO INTAKE AND SKIN INTEGRITY. SEE CLINICAL NUTRITION ASSESSMENT 08/10/25.
--- NOTE | 2025-08-10 16:02 | P.PNIM_ITS ---
Subjective Subjective Date of Service: 08/10/25 Interval History: He's doing better, there is still blood in carty but no clot and doesn't appear to need CBI at this time Physical Exam 2 Vital Signs: Vital Signs: Last Vital Signs Temp 98.8 F 08/10/25 15:30 Pulse 95 08/10/25 15:30 Resp 18 08/10/25 15:30 BP 194/97 H 08/10/25 15:30 Pulse Ox 98 08/10/25 15:30 O2 Del Method Room Air 08/10/25 15:30 BMI result Body Mass Index 22.7 Const: Other: General: AO X 3, no acute distress Resp: CTA bilateral CVS: S1,S2,RRR GI: +BS, NT, no distention : carty still with dark blood Skin: No rash Neuro: motor grossly intact Psych: appropriate affect Objective Data Active Medications Acetaminophen (Acetaminophen 325 Mg Tablet) 650 mg PO Q6H PRN PRN Reason: Pain, Mild 1-3,fever,headache Acetaminophen (Acetaminophen 325 Mg Tablet) 650 mg PO Q4H PRN PRN Reason: mild pain/temp 100F Amlodipine Besylate (Amlodipine Besylate 10 Mg Tablet) 10 mg PO DAILY [facility]; Protocol Last Admin: 08/10/25 09:24 Dose: 10 mg Documented By: FRANCHESKA Artificial Tears (Artificial Tears 15 Ml Drops) 1 drop EYE-BOTH QID [facility] Last Admin: 08/10/25 15:49 Dose: Not Given Documented By: ALCIDES Non-Admin Reason: Patient Refused Ascorbic Acid (Ascorbic Acid 500 Mg Tablet) 500 mg PO DAILY [facility] Last Admin: 08/10/25 09:24 Dose: 500 mg Documented By: FRANCHESKA Atorvastatin Calcium (Atorvastatin Calcium 40 Mg Tablet) 40 mg PO BEDTIME [facility] Bacitracin (Bacitracin Oint 14 Gm Tube) 1 appl TOPICAL BID [facility]; Protocol Last Admin: 08/10/25 10:24 Dose: 1 appl Documented By: RADHA Benzocaine (Throat Lozenge, Medicated Lozenge) 1 lozenge MUCOUS MEM QID PRN PRN Reason: Sore Throat Bisacodyl (Bisacodyl 5 Mg Tablet.Dr) 5 mg PO DAILY PRN PRN Reason: Constipation Bisacodyl (Bisacodyl 10 Mg Supp.Rect) 10 mg [place] DAILY PRN PRN Reason: Constipation Bismuth Subsalicylate (Bismuth Subsalicylate Liquid 524 Mg/30 Ml Oral.Susp) 524 mg PO Q8H PRN PRN Reason: UPSET STOMACH/NAUSEA Calcium Carbonate (Calcium Carbonate 750 Mg Tab.Chew) 750 mg PO Q4H PRN PRN Reason: Heartburn Last Admin: 08/10/25 06:09 Dose: 750 mg Documented By: FELISHA Carvedilol (Carvedilol 12.5 Mg Tablet) 12.5 mg PO BID [facility]; Protocol Last Admin: 08/10/25 10:25 Dose: 12.5 mg Documented By: RADHA Dextrose (Dextrose 50 % 25 Gm/50 Ml Syringe) 25 gm IVPUSH Q15M PRN; Protocol PRN Reason: per Hypoglycemia Standing Ord. Docusate Sodium (Docusate Sodium 100 Mg Capsule) 200 mg PO BID [facility] Last Admin: 08/10/25 09:25 Dose: 200 mg Documented By: FRANCHESKA Famotidine (Famotidine 20 Mg Tablet) 20 mg PO DAILY [facility] Last Admin: 08/10/25 09:24 Dose: 20 mg Documented By: FRANCHESKA Ferrous Sulfate (Ferrous Sulfate 324 Mg Tablet.Dr) 324 mg PO DAILY [facility] Last Admin: 08/10/25 09:24 Dose: 324 mg Documented By: FRANCHESKA Folic Acid (Folic Acid 1 Mg Tablet) 1 mg PO DAILY [facility] Last Admin: 08/10/25 09:24 Dose: 1 mg Documented By: FRANCHESKA Gabapentin (Gabapentin 300 Mg Capsule) 300 mg PO TID [facility] Last Admin: 08/10/25 15:35 Dose: 300 mg Documented By: ALCIDES Glucose (Glucose Gel 15 Gm Gel..Gram.) 15 gm PO Q15M PRN; Protocol PRN Reason: per Hypoglycemia Standing Ord. Guaifenesin (Guaifenesin 200 Mg/10 Ml 10 Ml Liquid) 10 ml PO Q4H PRN PRN Reason: Cough Guaifenesin (Guaifenesin La 600 Mg Tab.Er.12h) 600 mg PO Q12H PRN PRN Reason: Cold Symptoms Insulin Glargine (Insulin Glargine,Hum.Rec.Anlog 100 Unit/Ml 10 Ml Vial) 3 unit SUBCUT BEDTIME [facility] Insulin Human Lispro (Insulin Lispro 100 Unit/Ml 3 Ml Vial) 0 unit SUBCUT QIDACHS [facility]; Protocol Last Admin: 08/10/25 12:04 Dose: Not Given Documented By: ALCIDES Non-Admin Reason: No Insulin Coverage Lactulose (Lactulose 20 Gm/30 Ml Solution) 20 gm PO DAILY [facility] Last Admin: 08/10/25 09:23 Dose: 20 gm Documented By: FRANCHESKA Magnesium Hydroxide (Milk Of Magnesia 30 Ml Oral.Susp) 30 ml PO BEDTIME PRN PRN Reason: Constipation Melatonin (Melatonin 3 Mg Tablet) 6 mg PO BEDTIME PRN PRN Reason: Insomnia Methotrexate (Methotrexate Sodium 2.5 Mg Tablet) 15 mg PO MO@0900 [facility] Multivitamins/Vitamin C (Multivitamin Tablet) 1 tab PO DAILY [facility] Last Admin: 08/10/25 09:25 Dose: 1 tab Documented By: FRANCHESKA Naloxone HCl (Naloxone Hcl 0.4 Mg/Ml Vial) 0.4 mg IM Q2M PRN PRN Reason: OPIOD OVERDOSE Ondansetron HCl (Ondansetron Hcl 4 Mg/2 Ml Vial) 4 mg IVPUSH Q8H PRN PRN Reason: Nausea and Vomiting Polyethylene Glycol (Polyethylene Glycol 3350 17 Gm Powd.Pack) 17 gm PO DAILY [facility] Last Admin: 08/10/25 09:23 Dose: 17 gm Documented By: FRANCHESKA Prednisone (Prednisone 2.5 Mg Tablet) 2.5 mg PO DAILY [facility] Last Admin: 08/10/25 10:26 Dose: 2.5 mg Documented By: RADHA Senna/Docusate Sodium (Sennosides/Docusate Sodium Tablet) 2 tab PO BEDTIME [facility] Simethicone (Simethicone 80 Mg Tab.Chew) 80 mg PO Q6H PRN PRN Reason: Gas Sodium Biphosphate/Sodium Phosphate (Sodium Phosphate,[place]arrison-Dibasic 133 Ml Enema) 118 ml [place] DAILY PRN PRN Reason: Constipation Sodium Chloride (0.9 % Sodium Chloride Flush 3 Ml Syringe) 3 ml IVFLUSH QSHIFT [facility] Last Admin: 08/10/25 15:36 Dose: 3 ml Documented By: ALCIDES Tramadol HCl (Tramadol Hcl 50 Mg Tablet) 50 mg PO BEDTIME PRN PRN Reason: Pain (Scale Score 4-6) Trazodone HCl (Trazodone Hcl 50 Mg Tablet) 50 mg PO BEDTIME PRN PRN Reason: Insomnia Vitamin D (Cholecalciferol (Vitamin D3) 25 Mcg Tablet) 25 mcg PO DAILY [facility] Last Admin: 08/10/25 Dose: 25 mcg Documented By: FRANCHESKA Labs 08/10/25 07:29 08/10/25 04:11 Labs: Laboratory Results - last 24 hr 08/09/25 08/09/25 08/09/25 15:58 15:59 16:53 MCV 95.4 MCH 30.7 MCHC 32.2 RDW 15.7 Plt Count 130 L MPV 10.0 Immature Gran % (Auto) 1.0 H Neut % (Auto) 90.6 H Lymph % (Auto) 4.8 L Harrison % (Auto) 2.5 Eos % (Auto) 0.7 Baso % (Auto) 0.4 Lymph # (Auto) 0.8 L Harrison # (Auto) 0.4 Eos # (Auto) 0.1 Baso # (Auto) 0.1 Abs Immat Gran (auto) 0.16 H Absolute Neuts (auto) 14.0 H Absolute Nucleated RBC 0.000 Nucleated RBC % (auto) 0.0 Smear Tech's Comments VERIFIED Anion Gap 9 L Estim Creat Clear Calc 41.4 Estimated GFR 43 POC Glucose Random Glucose 117 H Calcium 7.4 L Total Bilirubin AST ALT Alkaline Phosphatase Total Protein Albumin Urine Color DK YELLOW Urine Appearance Cloudy Urine pH 7.0 Ur Specific [place] 1.015 Urine Protein 300 (3+) H Urine Glucose (UA) Negative Urine Ketones Negative Urine Blood Large (3+) H Urine Nitrite Negative Ur Leukocyte Esterase Small (1+) H Urine RBC >20 H Urine WBC 21-50 Urine WBC Clumps Present Ur Squamous Epith Cells 0-2 Urine Bacteria 2+ Hyaline Casts 0-2 Urine Yeast Present Random Vancomycin Blood Type B Positive Antibody Screen NEGATIVE Crossmatch See Detail 08/10/25 08/10/25 08/10/25 04:11 07:29 11:46 MCV 90.4 D MCH 32.0 MCHC 35.4 RDW 16.0 Plt Count 116 L MPV 9.5 Immature Gran % (Auto) 0.9 H Neut % (Auto) 91.4 H Lymph % (Auto) 5.1 L Harrison % (Auto) 1.7 L Eos % (Auto) 0.6 Baso % (Auto) 0.3 Lymph # (Auto) 0.7 L Harrison # (Auto) 0.2 Eos # (Auto) 0.1 Baso # (Auto) 0.0 Abs Immat Gran (auto) 0.13 H Absolute Neuts (auto) 12.7 H Absolute Nucleated RBC 0.000 Nucleated RBC % (auto) 0.0 Smear Tech's Comments VERIFIED Anion Gap 12 Estim Creat Clear Calc 41.9 Estimated GFR 44 POC Glucose 110 Random Glucose 117 H Calcium 7.3 L Total Bilirubin 0.5 AST 23 ALT 9 Alkaline Phosphatase 105 Total Protein 5.1 L Albumin 2.3 L Urine Color Urine Appearance Urine pH Ur Specific [place] Urine Protein Urine Glucose (UA) Urine Ketones Urine Blood Urine Nitrite Ur Leukocyte Esterase Urine RBC Urine WBC Urine WBC Clumps Ur Squamous Epith Cells Urine Bacteria Hyaline Casts Urine Yeast Random Vancomycin 32.1 H* Blood Type Antibody Screen Crossmatch Microbiology Microbiology Results: Microbiology 08/09/25 10:21 Blood Culture - Preliminary Blood - Venous No growth after 24 hours. 08/09/25 10:19 Blood Culture - Preliminary Blood - Venous No growth after 24 hours. 08/09/25 17:46 Urine Culture - Preliminary Urine Catheterized - Carty Catheter Culture too young to evaluate. Assessment and Plan (1) Hematuria: Status: Acute Plan 80-year-old chronically bed bound male, resident of [facility] with pertinent history of bullous pemphigoid, MS, chronic Carty, mood disorder, insulin- dependent type 2 diabetes mellitus, mixed hyperlipidemia, hypertension who was sent to the emergency department for evaluation hematuria and urinary retention Hematuria d/t traumatic carty with bladder injury with extraluminar air seen by Uro, Carty cath properly inserted by urology, seen by surgery no intervention needed transfused 1 unit, H/H is better but overall low, will transfuse 1 more unit Acute kidney injury d/t urinary retention, creatine unchanged after blood. Continue monitoring if worse renal function Anemia of chronic disease with acute blood loss anemia--see above, Recent history of MRSA bacteremia, on Vancomycin, Last dose yesterday Vanco level is very high hold further dose HyPOtension yesterday not due to sepsis, rather from chronic anemia on top of acute blood loss anemia Bullous pemphigoid: On methotrexate. Continue Mixed hyperlipidemia: On statin Hypertension resume home meds once med rec completed Insulin-dependent type 2 diabetes mellitus: Sliding scale insulin idabetic diet DVT prophylaxis: compression device in light of hematuria and acut Full code. Quality Stroke Does the patient have a stroke diagnosis?: No VTE Prior VTE?: No VTE Risk Level:: Medical - moderate - high VTE Device Contraindication: Treatment Not Tolerated VTE Drug Contraindication: Treatment Not Tolerated
[2025-08-10 16:14] LABS: Glucose, Whole Blood 145 mg/dL (60-115)
--- NOTE | 2025-08-10 19:29 | HO.SKINPHOTO ---
Location: coccyx Category:pressure injury Stage: Length: Width: Depth: cm Location: Category: Stage: Length: Width: Depth: cm Location: Category: Stage: Length: Width: Depth: cm Location: Category: Stage: Length: Width: Depth: cm Location: Category: Stage: Length: Width: Depth: cm Location: Category: Stage: Length: Width: Depth: cm
[2025-08-10 20:32] LABS: Glucose, Whole Blood 167 mg/dL (60-115)
[2025-08-10] MEDS: Insulin Glargine,Hum.rec.anlog 100 UNIT/ML 10 ML VIAL SUBCUT (20:55)
[2025-08-11 03:01] VITALS: BP 135/60; PULSE 85; RESP 18; TEMP 36.7; O2SAT 99
[2025-08-11 05:41] LABS: Hematocrit 24.7 % (42.0-52.0); Hemoglobin 8.1 g/dl (14.0-18.0); Mean Corpuscular HGB Conc 32.8 g/dl (31.0-36.0); Mean Corpuscular Hemoglobin 30.5 pg (27.0-33.0); Mean Corpuscular Volume 92.9 fL (80.0-98.0); NRBC Abs Auto 0.000 X10*3/uL (0.0-0.012); NRBC Pct Auto 0.0 /100WBC (0.0-0.2); Platelet Count 114 X10*3/uL (160-400); Red Blood Count 2.66 X10*6/uL (4.60-5.80); White Blood Count 7.0 X10*3/uL (4.8-10.8)
[2025-08-11 06:00] LABS: Anion Gap 11 (12-20); Blood Urea Nitrogen 22 mg/dL (9-16); Calcium 7.7 mg/dL (8.4-10.2); Carbon Dioxide 21 mmol/L (22-29); Chloride 109 mmol/L (96-108); Creatinine Clr Calc Pharmacy 49.1; Estimated Glomerular Filt Rate 52; Potassium 4.1 mmol/L (3.3-5.1); Sodium 137 mmol/L (135-145)
[2025-08-11 07:11] LABS: Glucose, Whole Blood 84 mg/dL (60-115)
[2025-08-11 08:00] VITALS: BP 159/70; PULSE 89; RESP 16; TEMP 36.3; O2SAT 96
[2025-08-11] MEDS: Ferrous Sulfate 324 MG TABLET.DR PO (08:13)
[2025-08-11] MEDS: 0.9 % Sodium Chloride Flush 3 ML SYRINGE IVFLUSH ×2 (08:14→16:43)
[2025-08-11 11:08] LABS: Glucose, Whole Blood 145 mg/dL (60-115)
--- NOTE | 2025-08-11 11:38 | P.PNIM_ITS ---
Subjective Subjective Date of Service: 08/11/25 Interval History: There is stil some blood in Carty bag but animal sticker than yesterday and appear old H/H is better. He has generalized ache otherwise doing well Physical Exam 2 Vital Signs: Vital Signs: Last Vital Signs Temp 97.3 F 08/11/25 08:00 Pulse 89 08/11/25 08:00 Resp 16 08/11/25 08:00 BP 159/70 H 08/11/25 08:00 Pulse Ox 96 08/11/25 08:00 O2 Del Method Room Air 08/11/25 08:00 BMI result Body Mass Index 22.7 Const: Other: General: AO X 3, no acute distress Resp: CTA bilateral CVS: S1,S2,RRR GI: +BS, NT, no distention : carty still with light dark blood Skin: No rash Neuro: motor grossly intact Psych: appropriate affect Objective Data Active Medications Acetaminophen (Acetaminophen 325 Mg Tablet) 650 mg PO Q6H PRN PRN Reason: Pain, Mild 1-3,fever,headache Last Admin: 08/10/25 21:24 Dose: 650 mg Documented By: ZULLY Acetaminophen (Acetaminophen 325 Mg Tablet) 650 mg PO Q4H PRN PRN Reason: mild pain/temp 100F Amlodipine Besylate (Amlodipine Besylate 10 Mg Tablet) 10 mg PO DAILY [facility]; Protocol Last Admin: 08/11/25 08:13 Dose: 10 mg Documented By: DUSTIN Artificial Tears (Artificial Tears 15 Ml Drops) 1 drop EYE-BOTH QID [facility] Last Admin: 08/11/25 08:24 Dose: Not Given Documented By: DUSTIN Non-Admin Reason: Patient Refused Ascorbic Acid (Ascorbic Acid 500 Mg Tablet) 500 mg PO DAILY [facility] Last Admin: 08/11/25 08:14 Dose: 500 mg Documented By: DUSTIN Atorvastatin Calcium (Atorvastatin Calcium 40 Mg Tablet) 40 mg PO BEDTIME [facility] Last Admin: 08/10/25 20:55 Dose: 40 mg Documented By: TITI Bacitracin (Bacitracin Oint 14 Gm Tube) 1 appl TOPICAL BID [facility]; Protocol Last Admin: 08/11/25 08:25 Dose: 1 appl Documented By: DUSTIN Benzocaine (Throat Lozenge, Medicated Lozenge) 1 lozenge MUCOUS MEM QID PRN PRN Reason: Sore Throat Bisacodyl (Bisacodyl 5 Mg Tablet.Dr) 5 mg PO DAILY PRN PRN Reason: Constipation Bisacodyl (Bisacodyl 10 Mg Supp.Rect) [address] DAILY PRN PRN Reason: Constipation Bismuth Subsalicylate (Bismuth Subsalicylate Liquid 524 Mg/30 Ml Oral.Susp) 524 mg PO Q8H PRN PRN Reason: UPSET STOMACH/NAUSEA Calcium Carbonate (Calcium Carbonate 750 Mg Tab.Chew) 750 mg PO Q4H PRN PRN Reason: Heartburn Last Admin: 08/10/25 06:09 Dose: 750 mg Documented By: FELISHA Carvedilol (Carvedilol 12.5 Mg Tablet) 12.5 mg PO BID [facility]; Protocol Last Admin: 08/11/25 08:14 Dose: 12.5 mg Documented By: DUSTIN Dextrose (Dextrose 50 % 25 Gm/50 Ml Syringe) 25 gm IVPUSH Q15M PRN; Protocol PRN Reason: per Hypoglycemia Standing Ord. Docusate Sodium (Docusate Sodium 100 Mg Capsule) 200 mg PO BID [facility] Last Admin: 08/11/25 08:13 Dose: 200 mg Documented By: DUSTIN Famotidine (Famotidine 20 Mg Tablet) 20 mg PO DAILY [facility] Last Admin: 08/11/25 08:14 Dose: 20 mg Documented By: DUSTIN Ferrous Sulfate (Ferrous Sulfate 324 Mg Tablet.) 324 mg PO DAILY [facility] Last Admin: 08/11/25 08:13 Dose: 324 mg Documented By: DUSTIN Folic Acid (Folic Acid 1 Mg Tablet) 1 mg PO DAILY [facility] Last Admin: 08/11/25 08:13 Dose: 1 mg Documented By: DUSTIN Gabapentin (Gabapentin 300 Mg Capsule) 300 mg PO TID [facility] Last Admin: 08/11/25 08:13 Dose: 300 mg Documented By: DUSTIN Glucose (Glucose Gel 15 Gm Gel..Gram.) 15 gm PO Q15M PRN; Protocol PRN Reason: per Hypoglycemia Standing Ord. Guaifenesin (Guaifenesin 200 Mg/10 Ml 10 Ml Liquid) 10 ml PO Q4H PRN PRN Reason: Cough Guaifenesin (Guaifenesin La 600 Mg Tab.Er.12h) 600 mg PO Q12H PRN PRN Reason: Cold Symptoms Vancomycin HCl 500 mg/ Sodium (Chloride) 110 mls @ 110 mls/hr IV ONCE ONE Stop: 08/10/25 17:59 Insulin Glargine (Insulin Glargine,Hum.Rec.Anlog 100 Unit/Ml 10 Ml Vial) 3 unit SUBCUT BEDTIME [facility] Last Admin: 08/10/25 20:55 Dose: 3 unit Documented By: TITI Insulin Human Lispro (Insulin Lispro 100 Unit/Ml 3 Ml Vial) 0 unit SUBCUT QIDACHS [facility]; Protocol Last Admin: 08/11/25 11:21 Dose: Not Given Documented By: DUSTIN Non-Admin Reason: No Insulin Coverage Lactulose (Lactulose 20 Gm/30 Ml Solution) 20 gm PO DAILY [facility] Last Admin: 08/11/25 08:12 Dose: 20 gm Documented By: DUSTIN Magnesium Hydroxide (Milk Of Magnesia 30 Ml Oral.Susp) 30 ml PO BEDTIME PRN PRN Reason: Constipation Melatonin (Melatonin 3 Mg Tablet) 6 mg PO BEDTIME PRN PRN Reason: Insomnia Last Admin: 08/10/25 21:24 Dose: 6 mg Documented By: ALEJANDRAQC Methotrexate (Methotrexate Sodium 2.5 Mg Tablet) 15 mg PO MO@0900 [facility] Multivitamins/Vitamin C (Multivitamin Tablet) 1 tab PO DAILY [facility] Last Admin: 08/11/25 08:14 Dose: 1 tab Documented By: DUSTIN Naloxone HCl (Naloxone Hcl 0.4 Mg/Ml Vial) 0.4 mg IM Q2M PRN PRN Reason: OPIOD OVERDOSE Ondansetron HCl (Ondansetron Hcl 4 Mg/2 Ml Vial) 4 mg IVPUSH Q8H PRN PRN Reason: Nausea and Vomiting Pharmacy Consult (Consult Rx Vancomycin Dosing) 1 each MISCELLANE DAILY PRN PRN Reason: Consult order Polyethylene Glycol (Polyethylene Glycol 3350 17 Gm Powd.Pack) 17 gm PO DAILY [facility] Last Admin: 08/11/25 08:14 Dose: 17 gm Documented By: DUSTIN Prednisone (Prednisone 2.5 Mg Tablet) 2.5 mg PO DAILY [facility] Last Admin: 08/11/25 08:14 Dose: 2.5 mg Documented By: DUSTIN Senna/Docusate Sodium (Sennosides/Docusate Sodium Tablet) 2 tab PO BEDTIME [facility] Last Admin: 08/10/25 20:54 Dose: 2 tab Documented By: TITI Simethicone (Simethicone 80 Mg Tab.Chew) 80 mg PO Q6H PRN PRN Reason: Gas Sodium Biphosphate/Sodium Phosphate (Sodium Phosphate,[place]-Dibasic 133 Ml Enema) [address] DAILY PRN PRN Reason: Constipation Sodium Chloride (0.9 % Sodium Chloride Flush 3 Ml Syringe) 3 ml IVFLUSH QSHIFT [facility] Last Admin: 08/11/25 08:14 Dose: 3 ml Documented By: DUSTIN Tramadol HCl (Tramadol Hcl 50 Mg Tablet) 50 mg PO BEDTIME PRN PRN Reason: Pain (Scale Score 4-6) Trazodone HCl (Trazodone Hcl 50 Mg Tablet) 50 mg PO BEDTIME PRN PRN Reason: Insomnia Last Admin: 08/10/25 21:24 Dose: 50 mg Documented By: ZULLY Vitamin D (Cholecalciferol (Vitamin D3) 25 Mcg Tablet) 25 mcg PO DAILY [facility] Last Admin: 08/11/25 08:13 Dose: 25 mcg Documented By: DUSTIN Labs 08/11/25 05:04 08/11/25 05:04 Labs: Laboratory Results - last 24 hr 08/09/25 08/10/25 08/10/25 15:58 11:46 16:07 MCV MCH MCHC RDW Plt Count MPV Absolute Nucleated RBC Nucleated RBC % (auto) Anion Gap Estim Creat Clear Calc Estimated GFR POC Glucose 110 Random Glucose Calcium Random Vancomycin 24.4 H Blood Type B Positive Antibody Screen NEGATIVE Crossmatch See Detail 08/10/25 08/10/25 08/11/25 16:10 20:29 05:04 MCV 92.9 MCH 30.5 MCHC 32.8 RDW 15.3 Plt Count 114 L MPV 10.1 Absolute Nucleated RBC 0.000 Nucleated RBC % (auto) 0.0 Anion Gap 11 L Estim Creat Clear Calc 49.1 Estimated GFR 52 POC Glucose 145 H 167 H Random Glucose 90 Calcium 7.7 L Random Vancomycin Blood Type Antibody Screen Crossmatch 08/11/25 08/11/25 07:06 11:04 MCV MCH MCHC RDW Plt Count MPV Absolute Nucleated RBC Nucleated RBC % (auto) Anion Gap Estim Creat Clear Calc Estimated GFR POC Glucose 84 145 H Random Glucose Calcium Random Vancomycin Blood Type Antibody Screen Crossmatch Microbiology Microbiology Results: Microbiology 08/09/25 17:46 Urine Culture - Preliminary Urine Catheterized - Carty Catheter Yeast 08/09/25 10:21 Blood Culture - Preliminary Blood - Venous No growth after 24 hours. 08/09/25 10:19 Blood Culture - Preliminary Blood - Venous No growth after 24 hours. Assessment and Plan (1) Hematuria: Status: Acute Plan 80-year-old chronically bed bound male, resident of [facility] with pertinent history of bullous pemphigoid, MS, chronic Carty, mood disorder, insulin- dependent type 2 diabetes mellitus, mixed hyperlipidemia, hypertension who was sent to the emergency department for evaluation hematuria and urinary retention Acute blood loss anemia on chronic anemia hematuria d/t traumatic carty with bladder injury with extraluminar air seen by Uro, Carty cath properly inserted by urology, seen by surgery no intervention needed transfused 2 units, H/H is better but overall low, will monitor Acute kidney injury d/t urinary retention, EDWARD nearly resolved. Cr 1.3 from 1.54 Recent history of MRSA bacteremia, on Vancomycin, Pharmacy to adjust per as needed HyPOtension on admission, not due to sepsis, rather from chronic anemia on top of acute blood loss anemia--this has resolved. Bullous pemphigoid: On methotrexate. Continue Mixed hyperlipidemia: On statin Hypertension resume home meds once med rec completed Insulin-dependent type 2 diabetes mellitus: Sliding scale insulin idabetic diet DVT prophylaxis: compression device in light of hematuria and acut Full code. Quality Stroke Does the patient have a stroke diagnosis?: No VTE Prior VTE?: No VTE Risk Level:: Medical - moderate - high VTE Device Contraindication: Treatment Not Tolerated VTE Drug Contraindication: Treatment Not Tolerated
--- NOTE | 2025-08-11 15:37 | HE.PHANOTE ---
RE: VANCO Trough returned at 25.8. Holding dose to let patient clear. Will get a random trough tomorrow morning 08/12 @0600 to reevaluate for a dose of 500 mg 08/12 @0800. Will continue to monitor.
[2025-08-11 16:00] VITALS: BP 143/79; PULSE 91; TEMP 36.2; O2SAT 96
[2025-08-11 16:02] LABS: Glucose, Whole Blood 163 mg/dL (60-115)
[2025-08-11 20:00] VITALS: BP 140/55; PULSE 90; RESP 18; TEMP 36.2
[2025-08-11 20:52] LABS: Glucose, Whole Blood 197 mg/dL (60-115)
[2025-08-11] MEDS: Insulin Glargine,Hum.rec.anlog 100 UNIT/ML 10 ML VIAL SUBCUT (21:06)
[2025-08-12] MEDS: 0.9 % Sodium Chloride Flush 3 ML SYRINGE IVFLUSH ×3 (00:26→15:33)
[2025-08-12 03:15] VITALS: BP 148/60; PULSE 76; RESP 18; TEMP 36.2; O2SAT 95
[2025-08-12 06:18] LABS: Hematocrit 24.1 % (42.0-52.0); Hemoglobin 8.3 g/dl (14.0-18.0); Mean Corpuscular HGB Conc 34.4 g/dl (31.0-36.0); Mean Corpuscular Hemoglobin 31.1 pg (27.0-33.0); Mean Corpuscular Volume 90.3 fL (80.0-98.0); NRBC Abs Auto 0.020 X10*3/uL (0.0-0.012); NRBC Pct Auto 0.3 /100WBC (0.0-0.2); Platelet Count 133 X10*3/uL (160-400); Red Blood Count 2.67 X10*6/uL (4.60-5.80); White Blood Count 6.7 X10*3/uL (4.8-10.8)
[2025-08-12 06:45] LABS: Anion Gap 10 (12-20); Blood Urea Nitrogen 28 mg/dL (9-16); Calcium 7.5 mg/dL (8.4-10.2); Carbon Dioxide 23 mmol/L (22-29); Chloride 108 mmol/L (96-108); Creatinine Clr Calc Pharmacy 54.4; Estimated Glomerular Filt Rate 59; Potassium 3.9 mmol/L (3.3-5.1); Sodium 137 mmol/L (135-145)
--- NOTE | 2025-08-12 07:01 | HE.PHANOTE ---
RE: VANCO DOSING Trough came back as 20.5 mg/L, 16 hours after last trough of 25.8 mg/L. Continue to hold dose, schedule another trough @1400 on 08/12/25.
[2025-08-12 07:36] LABS: Glucose, Whole Blood 99 mg/dL (60-115)
[2025-08-12 08:00] VITALS: BP 158/68; PULSE 79; RESP 18; TEMP 36.7; O2SAT 97
[2025-08-12] MEDS: Ferrous Sulfate 324 MG TABLET.DR PO (08:33)
--- NOTE | 2025-08-12 10:51 | P.PNIM_ITS ---
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 H/H is better, but there is still hematuria Physical Exam 2 Vital Signs: Vital Signs: Last Vital Signs Temp 98.0 F 08/12/25 08:00 Pulse 79 08/12/25 08:00 Resp 18 08/12/25 08:00 BP 158/68 H 08/12/25 08:00 Pulse Ox 97 08/12/25 08:00 O2 Del Method Room Air 08/12/25 08:00 BMI result Body Mass Index 22.7 Const: Other: General: AO X 3, no acute distress Resp: CTA bilateral CVS: S1,S2,RRR GI: +BS, NT, no distention : carty still with light dark blood Skin: No rash Neuro: motor grossly intact Psych: appropriate affect Objective Data Active Medications Acetaminophen (Acetaminophen 325 Mg Tablet) 650 mg PO Q6H PRN PRN Reason: Pain, Mild 1-3,fever,headache Last Admin: 08/12/25 08:34 Dose: 650 mg Documented By: DUSTIN Acetaminophen (Acetaminophen 325 Mg Tablet) 650 mg PO Q4H PRN PRN Reason: mild pain/temp 100F Amlodipine Besylate (Amlodipine Besylate 10 Mg Tablet) 10 mg PO DAILY [facility]; Protocol Last Admin: 08/12/25 08:33 Dose: 10 mg Documented By: DUSTIN Artificial Tears (Artificial Tears 15 Ml Drops) 1 drop EYE-BOTH QID [facility] Last Admin: 08/12/25 08:45 Dose: Not Given Documented By: DUSTIN Non-Admin Reason: Patient Refused Ascorbic Acid (Ascorbic Acid 500 Mg Tablet) 500 mg PO DAILY [facility] Last Admin: 08/12/25 08:34 Dose: 500 mg Documented By: DUSTIN Atorvastatin Calcium (Atorvastatin Calcium 40 Mg Tablet) 40 mg PO BEDTIME [facility] Last Admin: 08/11/25 20:53 Dose: 40 mg Documented By: LEFEBANUJA Bacitracin (Bacitracin Oint 14 Gm Tube) 1 appl TOPICAL BID [facility]; Protocol Last Admin: 08/12/25 09:50 Dose: 1 appl Documented By: DUSTIN Benzocaine (Throat Lozenge, Medicated Lozenge) 1 lozenge MUCOUS MEM QID PRN PRN Reason: Sore Throat Bisacodyl (Bisacodyl 5 Mg Tablet.) 5 mg PO DAILY PRN PRN Reason: Constipation Bisacodyl (Bisacodyl 10 Mg Supp.Rect) 10 mg [place] DAILY PRN PRN Reason: Constipation Bismuth Subsalicylate (Bismuth Subsalicylate Liquid 524 Mg/30 Ml Oral.Susp) 524 mg PO Q8H PRN PRN Reason: UPSET STOMACH/NAUSEA Calcium Carbonate (Calcium Carbonate 750 Mg Tab.Chew) 750 mg PO Q4H PRN PRN Reason: Heartburn Last Admin: 08/12/25 06:29 Dose: 750 mg Documented By: ODFRANKIE Carvedilol (Carvedilol 12.5 Mg Tablet) 12.5 mg PO BID [facility]; Protocol Last Admin: 08/12/25 08:34 Dose: 12.5 mg Documented By: DUSTIN Dextrose (Dextrose 50 % 25 Gm/50 Ml Syringe) 25 gm IVPUSH Q15M PRN; Protocol PRN Reason: per Hypoglycemia Standing Ord. Docusate Sodium (Docusate Sodium 100 Mg Capsule) 200 mg PO BID [facility] Last Admin: 08/12/25 08:34 Dose: 200 mg Documented By: DUSTIN Famotidine (Famotidine 20 Mg Tablet) 20 mg PO DAILY [facility] Last Admin: 08/12/25 08:33 Dose: 20 mg Documented By: DUSTIN Ferrous Sulfate (Ferrous Sulfate 324 Mg Tablet.) 324 mg PO DAILY [facility] Last Admin: 08/12/25 08:33 Dose: 324 mg Documented By: DUSTIN Folic Acid (Folic Acid 1 Mg Tablet) 1 mg PO DAILY [facility] Last Admin: 08/12/25 08:33 Dose: 1 mg Documented By: DUSTIN Gabapentin (Gabapentin 300 Mg Capsule) 300 mg PO TID [facility] Last Admin: 08/12/25 08:33 Dose: 300 mg Documented By: DUSTIN Glucose (Glucose Gel 15 Gm Gel..Gram.) 15 gm PO Q15M PRN; Protocol PRN Reason: per Hypoglycemia Standing Ord. Guaifenesin (Guaifenesin 200 Mg/10 Ml 10 Ml Liquid) 10 ml PO Q4H PRN PRN Reason: Cough Guaifenesin (Guaifenesin La 600 Mg Tab.Er.12h) 600 mg PO Q12H PRN PRN Reason: Cold Symptoms Vancomycin HCl 500 mg/ Sodium (Chloride) 110 mls @ 110 mls/hr IV Q24H [facility] Insulin Glargine (Insulin Glargine,Hum.Rec.Anlog 100 Unit/Ml 10 Ml Vial) 3 unit SUBCUT BEDTIME [facility] Last Admin: 08/11/25 21:06 Dose: 3 unit Documented By: FELIPE Insulin Human Lispro (Insulin Lispro 100 Unit/Ml 3 Ml Vial) 0 unit SUBCUT QIDACHS [facility]; Protocol Last Admin: 08/12/25 08:01 Dose: Not Given Documented By: DUSTIN Non-Admin Reason: No Insulin Coverage Lactulose (Lactulose 20 Gm/30 Ml Solution) 20 gm PO DAILY [facility] Last Admin: 08/12/25 08:35 Dose: 20 gm Documented By: DUSTIN Magnesium Hydroxide (Milk Of Magnesia 30 Ml Oral.Susp) 30 ml PO BEDTIME PRN PRN Reason: Constipation Melatonin (Melatonin 3 Mg Tablet) 6 mg PO BEDTIME PRN PRN Reason: Insomnia Last Admin: 08/11/25 20:53 Dose: 6 mg Documented By: FELIPE Methotrexate (Methotrexate Sodium 2.5 Mg Tablet) 15 mg PO MO@0900 [facility] Multivitamins/Vitamin C (Multivitamin Tablet) 1 tab PO DAILY [facility] Last Admin: 08/12/25 08:34 Dose: 1 tab Documented By: DUSTIN Naloxone HCl (Naloxone Hcl 0.4 Mg/Ml Vial) 0.4 mg IM Q2M PRN PRN Reason: OPIOD OVERDOSE Ondansetron HCl (Ondansetron Hcl 4 Mg/2 Ml Vial) 4 mg IVPUSH Q8H PRN PRN Reason: Nausea and Vomiting Pharmacy Consult (Consult Rx Vancomycin Dosing) 1 each MISCELLANE DAILY PRN PRN Reason: Consult order Polyethylene Glycol (Polyethylene Glycol 3350 17 Gm Powd.Pack) 17 gm PO DAILY [facility] Last Admin: 08/12/25 08:35 Dose: 17 gm Documented By: DUSTIN Prednisone (Prednisone 2.5 Mg Tablet) 2.5 mg PO DAILY [facility] Last Admin: 08/12/25 08:33 Dose: 2.5 mg Documented By: DUSTIN Senna/Docusate Sodium (Sennosides/Docusate Sodium Tablet) 2 tab PO BEDTIME [facility] Last Admin: 08/11/25 20:53 Dose: 2 tab Documented By: FELIPE Simethicone (Simethicone 80 Mg Tab.Chew) 80 mg PO Q6H PRN PRN Reason: Gas Last Admin: 08/12/25 08:33 Dose: 80 mg Documented By: DUSTIN Sodium Biphosphate/Sodium Phosphate (Sodium Phosphate,[place]-Dibasic 133 Ml Enema) 118 ml [place] DAILY PRN PRN Reason: Constipation Sodium Chloride (0.9 % Sodium Chloride Flush 3 Ml Syringe) 3 ml IVFLUSH QSHIFT [facility] Last Admin: 08/12/25 08:36 Dose: 3 ml Documented By: DUSTIN Tramadol HCl (Tramadol Hcl 50 Mg Tablet) 50 mg PO BEDTIME PRN PRN Reason: Pain (Scale Score 4-6) Trazodone HCl (Trazodone Hcl 50 Mg Tablet) 50 mg PO BEDTIME PRN PRN Reason: Insomnia Last Admin: 08/11/25 20:53 Dose: 50 mg Documented By: FELIPE Vitamin D (Cholecalciferol (Vitamin D3) 25 Mcg Tablet) 25 mcg PO DAILY [facility] Last Admin: 08/12/25 08:34 Dose: 25 mcg Documented By: DUSTIN Labs 08/12/25 05:57 08/12/25 05:57 Labs: Laboratory Results - last 24 hr 08/11/25 08/11/25 08/11/25 11:04 14:22 15:51 MCV MCH MCHC RDW Plt Count MPV Absolute Nucleated RBC Nucleated RBC % (auto) Anion Gap Estim Creat Clear Calc Estimated GFR POC Glucose 145 H 163 H Random Glucose Calcium Random Vancomycin 25.8 H* 08/11/25 08/12/25 08/12/25 20:48 05:57 07:33 MCV 90.3 MCH 31.1 MCHC 34.4 RDW 14.8 Plt Count 133 L MPV 9.8 Absolute Nucleated RBC 0.020 H Nucleated RBC % (auto) 0.3 H Anion Gap 10 L Estim Creat Clear Calc 54.4 Estimated GFR 59 POC Glucose 197 H 99 Random Glucose 124 H Calcium 7.5 L Random Vancomycin 20.9 H Microbiology Microbiology Results: Microbiology 08/09/25 17:46 Urine Culture - Final Urine Catheterized - Carty Catheter Olive albicans 08/09/25 10:21 Blood Culture - Preliminary Blood - Venous No growth after 48 hours. 08/09/25 10:19 Blood Culture - Preliminary Blood - Venous No growth after 48 hours. Assessment and Plan (1) Hematuria: Status: Acute Plan 80-year-old chronically bed bound male, resident of [facility] with pertinent history of bullous pemphigoid, MS, chronic Carty, mood disorder, insulin- dependent type 2 diabetes mellitus, mixed hyperlipidemia, hypertension who was sent to the emergency department for evaluation hematuria and urinary retention Acute blood loss anemia on chronic anemia hematuria d/t traumatic carty with bladder injury with extraluminar air seen by Uro, Carty cath properly inserted by urology, seen by surgery no intervention needed transfused 2 units, H/H is better but overall low, will monitor Urology to reassess Acute kidney injury d/t urinary retention, EDWARD nearly resolved. Cr 1.2 from 1.54 Recent history of MRSA bacteremia, on Vancomycin, Pharmacy to adjust per as needed HyPOtension on admission, not due to sepsis, rather from chronic anemia on top of acute blood loss anemia--this has resolved. Bullous pemphigoid: On methotrexate. Continue Mixed hyperlipidemia: On statin Hypertension resume home meds once med rec completed Insulin-dependent type 2 diabetes mellitus: Sliding scale insulin idabetic diet DVT prophylaxis: compression device in light of hematuria and acut Full code. Quality Stroke Does the patient have a stroke diagnosis?: No VTE Prior VTE?: No VTE Risk Level:: Medical - moderate - high VTE Device Contraindication: Treatment Not Tolerated VTE Drug Contraindication: Treatment Not Tolerated
[2025-08-12 11:31] LABS: Glucose, Whole Blood 165 mg/dL (60-115)
--- NOTE | 2025-08-12 11:45 | HO.WOUND ---
Wound Consult: Initial 80 yr old male admitted to [facility] on 08/09/25 - See progress notes and H&P for detailed history. Wound consult placed for coccyx. Patient agreeable to assessment and photo documentation. 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 Patient also with history of bullous pemphigoid, reporting pain to bilateral feet and toes, skin to feet and toes is intact, skiny pink. bilateral legs with dry scattered scaly skin and scabs. Coccyx/sacrum Etiology: unstageable pressure injury Present on Admission Measurements: 6cm x 3cm x 0.1cm Wound Bed: moist yellow adherent slough, moist pink/red Drainage / Odor: scant serosanguineous, no odor Edges: ? reddened/purple with areas of blanching and nonblanching Meghan wound: ? No Induration, Fluctuance or Warmth noted Pain: none to coccyx Goals of Treatment: ? offloading/pressure redistribution, moist wound healing with triad and foam legs and toes Etiology: no open wounds, history of bullous pemphigoid Wound Bed: toes with intact pink shiny skin, legs scatered dry flakes and scabs Drainage / Odor: none no odor Meghan wound: ? No Induration, Fluctuance or Warmth noted Pain: pain reported with repositioning Goals of Treatment: ? open to air, topical treatment per provider orders Recommendations: 1. Turn and Reposition every 2 hours and as needed for patient comfort. Use pillows or wedges to support off loading positions. 2. Off Load all bony prominences with use of pillows and heel boots if needed. Apply Preventative foams where needed. 3. Monitor for incontinence and moisture control, use barrier creams when needed for prevention and treatment. 4. Provide adequate and supplemental nutrition. 5. Order or Continue low air loss mattress. 6. When applicable maintain blood glucose levels per Providers order. Coccyx/sacrum: Off Load Pressure with Q2 hr turns and use of pillows - Cleanse with PH balance spray or wipes, pat dry. ?Apply thin layer of Triad to wound bed. Do not remove all of paste between applications as this may cause further skin damage.? Cover with foam dressing to aid in off loading and protection from friction. Change every other day and PRN. Re-consult wound care Nurse for wound deterioration or wound changes.
--- NOTE | 2025-08-12 11:45 | MHC.CLN ---
F/U DIET RX DIABETIC 1999. SKIN WITH UNSTAGEABLE PRESSURE INJURY TO COCCYX. ENSURE MAX BID (KCALS, 60 G PROTEIN) TO PROMOTE WOUND HEALING AND INCREASE NUTRITIONAL INTAKE. SIGNIFICANT WEIGHT LOSS X 30 DAYS, -9.4%. MOST RECENT PO INTAKE APPEARS GOOD. FOLLOW FOR PO INTAKE AND SKIN INTEGRITY.
--- NOTE | 2025-08-12 14:22 | HE.PHANOTE ---
RE: VANCO DOSING Trough came back as 19.1 mg/L down from 20.9 mg/L this morning @0600. Continue to hold dose, next trough scheduled for 08/13/25@0600.
--- NOTE | 2025-08-12 15:30 | MHC.CM.PN ---
transfer arranged [facility] FOR PT TO RETURN TO [facility] FOR 1 VIA ALERT AMB
[2025-08-12 15:37] VITALS: BP 147/62; PULSE 82; RESP 20; TEMP 36.3; O2SAT 98
[2025-08-12 16:09] LABS: Glucose, Whole Blood 162 mg/dL (60-115)
[2025-08-12 19:30] VITALS: BP 144/59; PULSE 86; RESP 20; TEMP 36.8; O2SAT 98
[2025-08-12 21:01] LABS: Glucose, Whole Blood 165 mg/dL (60-115)
[2025-08-12] MEDS: Bismuth Subsalicylate Liquid 524 MG/30 ML ORAL.SUSP PO (21:47)
[2025-08-12] MEDS: Insulin Glargine,Hum.rec.anlog 100 UNIT/ML 10 ML VIAL SUBCUT (21:54)
[2025-08-13] VITALS (8 sets, daily range): BP systolic 112–177; BP diastolic 54–73; PULSE 77–82; RESP 18–19; TEMP 36.1–36.9; O2SAT 96–100
[2025-08-13 06:57] LABS: Hematocrit 21.9 % (42.0-52.0); Hemoglobin 7.5 g/dl (14.0-18.0); Mean Corpuscular HGB Conc 34.2 g/dl (31.0-36.0); Mean Corpuscular Hemoglobin 31.0 pg (27.0-33.0); Mean Corpuscular Volume 90.5 fL (80.0-98.0); NRBC Abs Auto 0.000 X10*3/uL (0.0-0.012); NRBC Pct Auto 0.0 /100WBC (0.0-0.2); Platelet Count 132 X10*3/uL (160-400); Red Blood Count 2.42 X10*6/uL (4.60-5.80); White Blood Count 5.7 X10*3/uL (4.8-10.8)
[2025-08-13 07:04] LABS: Anion Gap 9 (12-20); Blood Urea Nitrogen 29 mg/dL (9-16); Calcium 7.3 mg/dL (8.4-10.2); Carbon Dioxide 22 mmol/L (22-29); Chloride 107 mmol/L (96-108); Creatinine Clr Calc Pharmacy 59.9; Estimated Glomerular Filt Rate > 60; Potassium 3.8 mmol/L (3.3-5.1); Sodium 134 mmol/L (135-145)
[2025-08-13 07:32] LABS: Glucose, Whole Blood 96 mg/dL (60-115)
[2025-08-13] MEDS: Ferrous Sulfate 324 MG TABLET.DR PO (08:05)
--- NOTE | 2025-08-13 08:59 | MHC.CM.PN ---
pt to [facility] today at 1 il gave auth and arranged transport son wili notified
[2025-08-13] MEDS: Artificial Tears 15 ML DROPS 1 DROP EYE-BOTH (09:19)
--- NOTE | 2025-08-13 10:16 | P.PNIM_ITS ---
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 Physical Exam 2 Vital Signs: Vital Signs: Last Vital Signs Temp 97.0 F 08/13/25 07:39 Pulse 81 08/13/25 07:39 Resp 18 08/13/25 07:39 BP 177/73 H 08/13/25 07:39 Pulse Ox 96 08/13/25 07:39 O2 Del Method Room Air 08/13/25 07:39 BMI result Body Mass Index 22.7 Const: Other: General: AO X 3, no acute distress Resp: CTA bilateral CVS: S1,S2,RRR GI: +BS, NT, no distention : carty still with light dark blood Skin: No rash Neuro: motor grossly intact Psych: appropriate affect Objective Data Active Medications Acetaminophen (Acetaminophen 325 Mg Tablet) 650 mg PO Q6H PRN PRN Reason: Pain, Mild 1-3,fever,headache Last Admin: 08/12/25 08:34 Dose: 650 mg Documented By: DUSTIN Acetaminophen (Acetaminophen 325 Mg Tablet) 650 mg PO Q4H PRN PRN Reason: mild pain/temp 100F Amlodipine Besylate (Amlodipine Besylate 10 Mg Tablet) 10 mg PO DAILY [facility]; Protocol Last Admin: 08/13/25 08:06 Dose: 10 mg Documented By: CONI Artificial Tears (Artificial Tears 15 Ml Drops) 1 drop EYE-BOTH QID [facility] Last Admin: 08/13/25 09:19 Dose: 1 drop Documented By: CONI Ascorbic Acid (Ascorbic Acid 500 Mg Tablet) 500 mg PO DAILY [facility] Last Admin: 08/13/25 08:05 Dose: 500 mg Documented By: CONI Atorvastatin Calcium (Atorvastatin Calcium 40 Mg Tablet) 40 mg PO BEDTIME [facility] Last Admin: 08/12/25 21:49 Dose: 40 mg Documented By: MAGDI Bacitracin (Bacitracin Oint 14 Gm Tube) 1 appl TOPICAL BID [facility]; Protocol Last Admin: 08/13/25 09:19 Dose: 1 appl Documented By: CONI Benzocaine (Throat Lozenge, Medicated Lozenge) 1 lozenge MUCOUS MEM QID PRN PRN Reason: Sore Throat Bisacodyl (Bisacodyl 5 Mg Tablet.) 5 mg PO DAILY PRN PRN Reason: Constipation Bisacodyl (Bisacodyl 10 Mg Supp.Rect) [address] DAILY PRN PRN Reason: Constipation Bismuth Subsalicylate (Bismuth Subsalicylate Liquid 524 Mg/30 Ml Oral.Susp) 524 mg PO Q8H PRN PRN Reason: UPSET STOMACH/NAUSEA Last Admin: 08/12/25 21:47 Dose: 524 mg Documented By: MAGDI Calcium Carbonate (Calcium Carbonate 750 Mg Tab.Chew) 750 mg PO Q4H PRN PRN Reason: Heartburn Last Admin: 08/12/25 06:29 Dose: 750 mg Documented By: CARLEEN Carvedilol (Carvedilol 12.5 Mg Tablet) 12.5 mg PO BID [facility]; Protocol Last Admin: 08/13/25 08:06 Dose: 12.5 mg Documented By: CONI Dextrose (Dextrose 50 % 25 Gm/50 Ml Syringe) 25 gm IVPUSH Q15M PRN; Protocol PRN Reason: per Hypoglycemia Standing Ord. Docusate Sodium (Docusate Sodium 100 Mg Capsule) 200 mg PO BID [facility] Last Admin: 08/13/25 08:05 Dose: 200 mg Documented By: CONI Famotidine (Famotidine 20 Mg Tablet) 20 mg PO DAILY [facility] Last Admin: 08/13/25 08:05 Dose: 20 mg Documented By: CONI Ferrous Sulfate (Ferrous Sulfate 324 Mg Tablet.) 324 mg PO DAILY [facility] Last Admin: 08/13/25 08:05 Dose: 324 mg Documented By: CONI Folic Acid (Folic Acid 1 Mg Tablet) 1 mg PO DAILY [facility] Last Admin: 08/13/25 08:06 Dose: 1 mg Documented By: CONI Gabapentin (Gabapentin 300 Mg Capsule) 300 mg PO TID [facility] Last Admin: 08/13/25 08:05 Dose: 300 mg Documented By: CONI Glucose (Glucose Gel 15 Gm Gel..Gram.) 15 gm PO Q15M PRN; Protocol PRN Reason: per Hypoglycemia Standing Ord. Guaifenesin (Guaifenesin 200 Mg/10 Ml 10 Ml Liquid) 10 ml PO Q4H PRN PRN Reason: Cough Guaifenesin (Guaifenesin La 600 Mg Tab.Er.12h) 600 mg PO Q12H PRN PRN Reason: Cold Symptoms Vancomycin HCl 500 mg/ Sodium (Chloride) 110 mls @ 110 mls/hr IV Q24H [facility] Insulin Glargine (Insulin Glargine,Hum.Rec.Anlog 100 Unit/Ml 10 Ml Vial) 3 unit SUBCUT BEDTIME [facility] Last Admin: 08/12/25 21:54 Dose: 3 unit Documented By: MAGDI Insulin Human Lispro (Insulin Lispro 100 Unit/Ml 3 Ml Vial) 0 unit SUBCUT QIDACHS [facility]; Protocol Last Admin: 08/13/25 07:36 Dose: Not Given Documented By: CONI Non-Admin Reason: No Insulin Coverage Lactulose (Lactulose 20 Gm/30 Ml Solution) 20 gm PO DAILY [facility] Last Admin: 08/13/25 08:06 Dose: 20 gm Documented By: CONI Magnesium Hydroxide (Milk Of Magnesia 30 Ml Oral.Susp) 30 ml PO BEDTIME PRN PRN Reason: Constipation Melatonin (Melatonin 3 Mg Tablet) 6 mg PO BEDTIME PRN PRN Reason: Insomnia Last Admin: 08/12/25 21:53 Dose: 6 mg Documented By: MAGDI Methotrexate (Methotrexate Sodium 2.5 Mg Tablet) 15 mg PO MO@0900 [facility] Multivitamins/Vitamin C (Multivitamin Tablet) 1 tab PO DAILY [facility] Last Admin: 08/13/25 08:06 Dose: 1 tab Documented By: CONI Naloxone HCl (Naloxone Hcl 0.4 Mg/Ml Vial) 0.4 mg IM Q2M PRN PRN Reason: OPIOD OVERDOSE Ondansetron HCl (Ondansetron Hcl 4 Mg/2 Ml Vial) 4 mg IVPUSH Q8H PRN PRN Reason: Nausea and Vomiting Pharmacy Consult (Consult Rx Vancomycin Dosing) 1 each MISCELLANE DAILY PRN PRN Reason: Consult order Polyethylene Glycol (Polyethylene Glycol 3350 17 Gm Powd.Pack) 17 gm PO DAILY [facility] Last Admin: 08/13/25 08:06 Dose: 17 gm Documented By: CONI Prednisone (Prednisone 2.5 Mg Tablet) 2.5 mg PO DAILY [facility] Last Admin: 08/13/25 08:05 Dose: 2.5 mg Documented By: CONI Senna/Docusate Sodium (Sennosides/Docusate Sodium Tablet) 2 tab PO BEDTIME [facility] Last Admin: 08/12/25 21:49 Dose: 2 tab Documented By: MAGDI Simethicone (Simethicone 80 Mg Tab.Chew) 80 mg PO Q6H PRN PRN Reason: Gas Last Admin: 08/12/25 08:33 Dose: 80 mg Documented By: DUSTIN Sodium Biphosphate/Sodium Phosphate (Sodium Phosphate,[place]-Dibasic 133 Ml Enema) [address] DAILY PRN PRN Reason: Constipation Sodium Chloride (0.9 % Sodium Chloride Flush 3 Ml Syringe) 3 ml IVFLUSH QSHIFT [facility] Last Admin: 08/13/25 08:17 Dose: Not Given Documented By: CONI Non-Admin Reason: IV Running Tramadol HCl (Tramadol Hcl 50 Mg Tablet) 50 mg PO BEDTIME PRN PRN Reason: Pain (Scale Score 4-6) Trazodone HCl (Trazodone Hcl 50 Mg Tablet) 50 mg PO BEDTIME PRN PRN Reason: Insomnia Last Admin: 08/11/25 20:53 Dose: 50 mg Documented By: LEFMATT Vitamin D (Cholecalciferol (Vitamin D3) 25 Mcg Tablet) 25 mcg PO DAILY [facility] Last Admin: 08/13/25 08:06 Dose: 25 mcg Documented By: CONI Labs 08/13/25 06:11 08/13/25 06:11 Labs: Laboratory Results - last 24 hr 08/12/25 08/12/25 08/12/25 11:26 13:49 16:05 MCV MCH MCHC RDW Plt Count MPV Absolute Nucleated RBC Nucleated RBC % (auto) Anion Gap Estim Creat Clear Calc Estimated GFR POC Glucose 165 H 162 H Random Glucose Calcium Random Vancomycin 19.1 08/12/25 08/13/25 08/13/25 20:56 06:11 07:29 MCV 90.5 MCH 31.0 MCHC 34.2 RDW 14.7 Plt Count 132 L MPV 10.0 Absolute Nucleated RBC 0.000 Nucleated RBC % (auto) 0.0 Anion Gap 9 L Estim Creat Clear Calc 59.9 Estimated GFR > 60 POC Glucose 165 H 96 Random Glucose 96 Calcium 7.3 L Random Vancomycin 15.4 Microbiology Microbiology Results: Microbiology 08/09/25 17:46 Urine Culture - Final Urine Catheterized - Carty Catheter Olive albicans Assessment and Plan (1) Hematuria: Status: Acute Plan 80-year-old chronically bed bound male, resident of [facility] with pertinent history of bullous pemphigoid, MS, chronic Carty, mood disorder, insulin- dependent type 2 diabetes mellitus, mixed hyperlipidemia, hypertension who was sent to the emergency department for evaluation hematuria and urinary retention Acute blood loss anemia on chronic anemia hematuria d/t traumatic carty with bladder injury with extraluminar air seen by Uro, Carty cath properly inserted by urology, seen by surgery no intervention needed transfused 2 units, H/H is better but overall low, but trending down, transfuse 3rd unit today Urology to reassess continuing hematuria Acute kidney injury d/t urinary retention, EDWARD nearly resolved. Cr 1.09 from 1.54 Recent history of MRSA bacteremia, on Vancomycin, Pharmacy to adjust per as needed HyPOtension on admission, not due to sepsis, rather from chronic anemia on top of acute blood loss anemia--this has resolved. Bullous pemphigoid: On methotrexate. Continue Mixed hyperlipidemia: On statin Hypertension resume home meds once med rec completed Insulin-dependent type 2 diabetes mellitus: Sliding scale insulin idabetic diet DVT prophylaxis: compression device in light of hematuria and acut Full code. Plan discussed with efrain at bedside yesterday Quality Stroke Does the patient have a stroke diagnosis?: No VTE Prior VTE?: No VTE Risk Level:: Medical - moderate - high VTE Device Contraindication: Treatment Not Tolerated VTE Drug Contraindication: Treatment Not Tolerated
--- NOTE | 2025-08-13 10:35 | MHC.CM.PN ---
pt dcd cncelled pt needs blood son and facility notifed t/m message left for aod [phone] x [phone] to cancel alert amb as instructed by haley to do
[2025-08-13 11:20] LABS: Glucose, Whole Blood 184 mg/dL (60-115)
--- NOTE | 2025-08-13 12:57 | P.CNUR_ITS ---
History of Present Illness Consult details Consult date: 08/13/25 Narrative: CC: Hematuria 80-year-old alf chronically bed-bound male Refer to emergency department for evaluation of Nunez catheter complication Erlin blood noted in Nunez catheter bag Assessment in emergency room indicated bladder was not draining. Retention 350 cc. Elevated creatinine 1.56 from a baseline less than 1. Imaging performed - CT scan showed Nunez catheter balloon inflated in the prostatic urethra with blood product layering in the urinary bladder. Trabeculated urinary bladder wall. Urology consulted and Nunez catheter placed using cystoscopy at bedside. Recommendation to follow as outpatient for suprapubic tube assessment Treat current urinary tract infection complication from from indwelling Nunez catheter at alf and malpositioning of Nunez catheter. Review of Systems 2 Constitutional: Constitutional: Reports as per HPI and Reports no additional constitutional complaints Cardiovascular: Cardiovascular: Reports as per HPI and Reports no additional cardiovascular complaints Respiratory: Respiratory: Reports as per HPI and Reports no additional respiratory complaints Gastrointestinal: Gastrointestinal: Reports as per HPI and Reports no additional gastrointestinal complaints Genitourinary: Genitourinary: Reports as per HPI Musculoskeletal: Musculoskeletal: Reports no additional musculoskeletal complaints and Reports as per HPI Neurologic: Reports system reviewed and no additional complaints, except as documented and Reports as per HPI [facility] Past Medical History Medical History (Updated 08/13/25 @ 13:03 by Miguel Angel Bartholomew MD) UTI (urinary tract infection) due to urinary indwelling Nunez catheter Hematuria Steroid dependence EDWARD (acute kidney injury) Bullous pemphigoid Decubitus ulcer of coccygeal region, stage 2 Acute hypotension Sepsis Aspiration pneumonitis Recurrent UTI (urinary tract infection) Hypotonic neurogenic bladder Lytic lesion of bone on x-ray Wound of foot Anemia Septic shock Shoulder pain Constipation Hematuria Multiple sclerosis Depression Diabetes mellitus type 2 in obese Chronic pain syndrome BPH (benign prostatic hyperplasia) Dehydration Chronic renal failure Urinary tract infection Family History Family History Family/Other Heart attack Father Diabetes Surgical History Surgical History Hx of removal of cyst Social History Social History Household Members: Other Household Members Other:: lives at [facility] on [address] in [place] Housing: Alf Housing Other:: [employer] Do you presently have visiting nurse or other home services: No Unable to assess alcohol history related to: Unable to respond Alcohol intake: current Alcohol intake frequency: holidays/special occasions only Alcohol type: hard liquor Comment: BEDFAST Patient Tobacco Use Status: Former Tobacco user Cigarette Packs Per Day: 1 Smoked in Last 30 Days: No Use of substances other than those prescribed or required for medical reasons: No Currently Displaying Signs/Symptoms of Drug Intoxication Withdrawal: No Have you been hit, kicked, punched, or otherwise hurt by someone within the past year? If so, by whom?: No Do you feel safe in your current relationship?: Yes Is there a partner from a previous relationship who is making you feel unsafe now?: No Are you made to feel afraid or neglected: No Advance Directives: Yes Advance Directives Information Provided: Yes Advance Directives on File: Yes Advance Directives Date on File: 10/13/20 Do you have a plan to hurt others: No Plan Recently lost weight without trying: Unsure Eating poorly because of decreased appetite: No Nutrition Risks: No Nutritional Risk service: No Current occupational status: retired Meds Allergies Allergy/AdvReac Type Severity Reaction Status Date / Time Benzodiazepines Allergy Unknown UNKNOWN Verified 08/09/25 08:50 (BENZODIAZEPINES) dalfampridine (From AMPYRA) Allergy Unknown UNKNOWN Verified 08/09/25 08:50 duloxetine (From CYMBALTA) Allergy Unknown UNKNOWN Verified 08/09/25 08:50 ezetimibe (From ZETIA) Allergy Unknown UNKNOWN Verified 08/09/25 08:50 niacin (NIACIN) Allergy Unknown UNKNOWN Verified 08/09/25 08:50 pravastatin (PRAVASTATIN) Allergy Unknown UNKNOWN Verified 08/09/25 08:50 Paddrch-KGD-YsQ Reductase Allergy Unknown UNKNOWN Verified 08/09/25 08:50 Inhibitor ([id number] REDUCTASE INHIBITOR) lorazepam (From ATIVAN) AdvReac Severe EXCESSIVE Verified 08/09/25 08:50 SEDATION doxycycline (DOXYCYCLINE) AdvReac Mild esophogeal Verified 08/09/25 08:50 iritation methylprednisolone (From AdvReac Mild heartburn Verified 08/09/25 08:50 SOLU-MEDROL) ertapenem (From INVANZ) AdvReac Unknown possible Verified 08/09/25 08:50 cause of bullous pemphigoid Active Medications: Current Medications Acetaminophen (Acetaminophen 325 Mg Tablet) 650 mg PO Q6H PRN PRN Reason: Pain, Mild 1-3,fever,headache Last Admin: 08/12/25 08:34 Dose: 650 mg Acetaminophen (Acetaminophen 325 Mg Tablet) 650 mg PO Q4H PRN PRN Reason: mild pain/temp 100F Amlodipine Besylate (Amlodipine Besylate 10 Mg Tablet) 10 mg PO DAILY [facility]; Protocol Last Admin: 08/13/25 08:06 Dose: 10 mg Artificial Tears (Artificial Tears 15 Ml Drops) 1 drop EYE-BOTH QID [facility] Last Admin: 08/13/25 09:19 Dose: 1 drop Ascorbic Acid (Ascorbic Acid 500 Mg Tablet) 500 mg PO DAILY [facility] Last Admin: 08/13/25 08:05 Dose: 500 mg Atorvastatin Calcium (Atorvastatin Calcium 40 Mg Tablet) 40 mg PO BEDTIME [facility] Last Admin: 08/12/25 21:49 Dose: 40 mg Bacitracin (Bacitracin Oint 14 Gm Tube) 1 appl TOPICAL BID [facility]; Protocol Last Admin: 08/13/25 09:19 Dose: 1 appl Benzocaine (Throat Lozenge, Medicated Lozenge) 1 lozenge MUCOUS MEM QID PRN PRN Reason: Sore Throat Bisacodyl (Bisacodyl 5 Mg Tablet.Dr) 5 mg PO DAILY PRN PRN Reason: Constipation Bisacodyl (Bisacodyl 10 Mg Supp.Rect) 10 mg MO DAILY PRN PRN Reason: Constipation Bismuth Subsalicylate (Bismuth Subsalicylate Liquid 524 Mg/30 Ml Oral.Susp) 524 mg PO Q8H PRN PRN Reason: UPSET STOMACH/NAUSEA Last Admin: 08/12/25 21:47 Dose: 524 mg Calcium Carbonate (Calcium Carbonate 750 Mg Tab.Chew) 750 mg PO Q4H PRN PRN Reason: Heartburn Last Admin: 08/12/25 06:29 Dose: 750 mg Carvedilol (Carvedilol 12.5 Mg Tablet) 12.5 mg PO BID [facility]; Protocol Last Admin: 08/13/25 08:06 Dose: 12.5 mg Dextrose (Dextrose 50 % 25 Gm/50 Ml Syringe) 25 gm IVPUSH Q15M PRN; Protocol PRN Reason: per Hypoglycemia Standing Ord. Docusate Sodium (Docusate Sodium 100 Mg Capsule) 200 mg PO BID [facility] Last Admin: 08/13/25 08:05 Dose: 200 mg Famotidine (Famotidine 20 Mg Tablet) 20 mg PO DAILY [facility] Last Admin: 08/13/25 08:05 Dose: 20 mg Ferrous Sulfate (Ferrous Sulfate 324 Mg Tablet.Dr) 324 mg PO DAILY [facility] Last Admin: 08/13/25 08:05 Dose: 324 mg Folic Acid (Folic Acid 1 Mg Tablet) 1 mg PO DAILY [facility] Last Admin: 08/13/25 08:06 Dose: 1 mg Gabapentin (Gabapentin 300 Mg Capsule) 300 mg PO TID [facility] Last Admin: 08/13/25 08:05 Dose: 300 mg Glucose (Glucose Gel 15 Gm Gel..Gram.) 15 gm PO Q15M PRN; Protocol PRN Reason: per Hypoglycemia Standing Ord. Guaifenesin (Guaifenesin 200 Mg/10 Ml 10 Ml Liquid) 10 ml PO Q4H PRN PRN Reason: Cough Guaifenesin (Guaifenesin La 600 Mg Tab.Er.12h) 600 mg PO Q12H PRN PRN Reason: Cold Symptoms Vancomycin HCl 500 mg/ Sodium (Chloride) 110 mls @ 110 mls/hr IV Q24H [facility] Insulin Glargine (Insulin Glargine,Hum.Rec.Anlog 100 Unit/Ml 10 Ml Vial) 3 unit SUBCUT BEDTIME [facility] Last Admin: 08/12/25 21:54 Dose: 3 unit Insulin Human Lispro (Insulin Lispro 100 Unit/Ml 3 Ml Vial) 0 unit SUBCUT QIDACHS [facility]; Protocol Last Admin: 08/13/25 11:33 Dose: 2 unit Lactulose (Lactulose 20 Gm/30 Ml Solution) 20 gm PO DAILY [facility] Last Admin: 08/13/25 08:06 Dose: 20 gm Magnesium Hydroxide (Milk Of Magnesia 30 Ml Oral.Susp) 30 ml PO BEDTIME PRN PRN Reason: Constipation Melatonin (Melatonin 3 Mg Tablet) 6 mg PO BEDTIME PRN PRN Reason: Insomnia Last Admin: 08/12/25 21:53 Dose: 6 mg Methotrexate (Methotrexate Sodium 2.5 Mg Tablet) 15 mg PO MO@0900 [facility] Multivitamins/Vitamin C (Multivitamin Tablet) 1 tab PO DAILY [facility] Last Admin: 08/13/25 08:06 Dose: 1 tab Naloxone HCl (Naloxone Hcl 0.4 Mg/Ml Vial) 0.4 mg IM Q2M PRN PRN Reason: OPIOD OVERDOSE Ondansetron HCl (Ondansetron Hcl 4 Mg/2 Ml Vial) 4 mg IVPUSH Q8H PRN PRN Reason: Nausea and Vomiting Pharmacy Consult (Consult Rx Vancomycin Dosing) 1 each MISCELLANE DAILY PRN PRN Reason: Consult order Polyethylene Glycol (Polyethylene Glycol 3350 17 Gm Powd.Pack) 17 gm PO DAILY [facility] Last Admin: 08/13/25 08:06 Dose: 17 gm Prednisone (Prednisone 2.5 Mg Tablet) 2.5 mg PO DAILY [facility] Last Admin: 08/13/25 08:05 Dose: 2.5 mg Senna/Docusate Sodium (Sennosides/Docusate Sodium Tablet) 2 tab PO BEDTIME [facility] Last Admin: 08/12/25 21:49 Dose: 2 tab Simethicone (Simethicone 80 Mg Tab.Chew) 80 mg PO Q6H PRN PRN Reason: Gas Last Admin: 08/12/25 08:33 Dose: 80 mg Sodium Biphosphate/Sodium Phosphate (Sodium Phosphate,[place]-Dibasic 133 Ml Enema) 118 ml MO DAILY PRN PRN Reason: Constipation Sodium Chloride (0.9 % Sodium Chloride Flush 3 Ml Syringe) 3 ml IVFLUSH QSHIFT [facility] Last Admin: 08/13/25 08:17 Dose: Not Given Tramadol HCl (Tramadol Hcl 50 Mg Tablet) 50 mg PO BEDTIME PRN PRN Reason: Pain (Scale Score 4-6) Trazodone HCl (Trazodone Hcl 50 Mg Tablet) 50 mg PO BEDTIME PRN PRN Reason: Insomnia Last Admin: 08/11/25 20:53 Dose: 50 mg Vitamin D (Cholecalciferol (Vitamin D3) 25 Mcg Tablet) 25 mcg PO DAILY [facility] Last Admin: 08/13/25 08:06 Dose: 25 mcg Home Medications ?Medication ?Instructions ?Recorded ?Confirmed ?Last Taken ?Type ceramides 1,3,6-II (CeraVe topical 1 appl topical BID Dry Skin 11/16/23 08/09/25 Unknown History cream) bacitracin 500 unit/gram topical 1 appl topical BID 08/09/25 Unknown History ointment acetaminophen 325 mg tablet 650 mg PO BEDTIME 08/09/25 08/09/25 Unknown History acetaminophen 325 mg tablet 650 mg PO Q4H PRN mild kory n/temp 08/09/25 08/09/25 Unknown History 100F amlodipine 10 mg tablet 10 mg PO DAILY 08/09/2508/25 Unknown History ascorbic acid (vitamin C) 500 mg 500 mg PO DAILY 08/0908/09/25 Unknown History tablet aspirin 81 mg tablet,delayed 81 mg PO DAILY 08/09/25 0 08/09/25 Unknown History release benzocaine 6 mg-menthol 10 mg 1 ray mucous membrane QI D PRN Sore 08/09/25 08/09/25 Unknown History lozenges (Chloraseptic Sore Throat) Throat bisacodyl 10 mg rectal suppository 10 mg MO DAILY PRN Constipation 08/09/25 08/09/25 Unknown History bisacodyl 5 mg tablet 5 mg PO DAILY PRN Constipati on 08/09/25 08/09/25 Unknown History bismuth subsalicylate 262 mg/15 mL 524 mg PO Q8H PRN U PSET 08/09/25 08/09/25 Unknown History oral suspension (Pepto-Bismol) STOMACH/NAUSEA carboxymethylcellulose sodium 0.5 1 drp ophthalmic (ey e) QID 08/09/25 08/09/25 Unknown History % eye drops (Refresh Tears) carvedilol 12.5 mg tablet 12.5 mg PO BID 08/09/2508/25 Unknown History cholecalciferol (vitamin D3) 25 25 mcg PO DAILY 08/09/25 Unknown History mcg (1,000 unit) tablet docusate sodium 100 mg capsule 200 mg PO BID 08/09/25 08/09/25 Unknown History famotidine 20 mg tablet 20 mg PO DAILY 08/09/2508/25 Unknown History ferrous sulfate 325 mg (65 mg 325 mg PO DAILY 08/09/25 08/09/25 Unknown History iron) tablet folic acid 1 mg tablet 1 mg PO DAILY 08/09/2508/09 Unknown History gabapentin 300 mg capsule 300 mg PO TID 08/09/2508/09 Unknown History guaifenesin 100 mg/5 mL oral liquid 200 mg PO Q4H PRN Cough 08/09/25 08/09/25 Unknown History guaifenesin 600 mg tablet, 600 mg PO Q12H PRN Cold Sym ptoms 08/09/25 08/09/25 Unknown History extended release 12 hr (Mucinex) insulin glargine-yfgn 100 unit/mL 3 unit subcut BEDTIM E 08/09/25 08/09/25 Unknown History subcutaneous solution insulin lispro 100 unit/mL 1 sliding scale dose subcut BID 08/09/25 08/09/25 Unknown History subcutaneous pen (Admelog SoloStar U-100 Insulin lispro) lactulose 10 gram/15 mL oral 20 g PO DAILY 08/09/25 Unknown History solution lanolin alcohols-mineral 1 appl topical BID 08/09/25 08/09/25 Unknown History oil-w.petrolatum-ceresin topical cream magnesium hydroxide 400 mg/5 mL 30 ml PO BEDTIME PRN C onstipation 08/09/25 08/09/25 Unknown History oral suspension (Milk of Magnesia) methotrexate sodium 2.5 mg tablet 15 mg PO MO@0900 08/2508/09/25 Unknown History multivitamin 1 tab PO DAILY 08/09/25 09/0 08/25 Unknown History naloxone 0.4 mg/mL injection 0.4 mg IM Q2M PRN OPIOD O VERDOSE 08/09/25 08/09/25 Unknown History solution ondansetron 4 mg disintegrating 4 mg PO Q4H PRN NAUSEA /VOMITING 08/09/25 08/09/25 Unknown History tablet polyethylene glycol 3350 17 17 g PO DAILY 08/09/2508/25 Unknown History gram/dose oral powder (Miralax) prednisone 2.5 mg tablet 2.5 mg PO DAILY 08/09/2508/25 Unknown History ramelteon 8 mg tablet (Rozerem) 8 mg PO BEDTIME PRN In somnia 08/09/25 08/09/25 Unknown History rosuvastatin 10 mg tablet 10 mg PO BEDTIME 08/09/25 Unknown History sennosides 8.6 mg-docusate sodium 2 tab-cap PO BEDTIME 08/09/25 08/09/25 Unknown History 50 mg tablet simethicone 80 mg chewable tablet 80 mg PO Q6H PRN GAS 08/09/25 08/09/25 Unknown History sodium phosphates 19 gram-7 118 ml MO DAILY PRN Consti pation 08/09/25 08/09/25 Unknown History gram/118 mL enema (Fleet Enema) tramadol 50 mg tablet 50 mg PO BEDTIME PRN Pain (S josselin 08/09/25 08/09/25 Unknown History Score 4-6) trazodone 50 mg tablet 50 mg PO BEDTIME PRN Insomni a 08/09/25 08/09/25 Unknown History vancomycin 500 mg/100 mL in 0.9% 500 mg IV DAILY 08/0908/09/25 Unknown History sodium chloride intravenous piggyback white petrolatum 57 % topical 1 ea topical DAILY 08/0908/09/25 Unknown History paste (Remedy Phytoplex Z-Guard) Physical Exam 2 Vital Signs: Vital Signs: Last Vital Signs Temp 98.2 F 08/13/25 12:34 Pulse 78 08/13/25 12:34 Resp 18 08/13/25 12:34 BP 112/55 L 08/13/25 12:34 Pulse Ox 98 08/13/25 12:34 O2 Del Method Room Air 08/13/25 12:34 BMI result Body Mass Index 22.7 Const: General: cooperative, healthy appearing, comfortable and no acute distress Orientation/consciousness: patient oriented x3 HEENT: Face and sinus: Yes normal facial exam Mouth: moist mucous membranes Neck: Neck: Yes normal visual inspection, Yes full ROM and Yes trachea midline Chest: Chest palpation & inspection: normal inspection of the chest Resp: Effort & Inspection: normal respiratory effort, able to speak in complete sentences and no respiratory distress GI: Inspection: Yes normal to inspection Back/Spine/Pelvis: Cervical Spine: normal cervical lordosis Thoracic/Lumbar Spine: thoracic and lumbar spine normal to inspection Skin: General skin exam: no rashes or lesions noted Neuro: General: patient oriented x3, tone normal and moves all extremities Extrem: General: Yes normal to inspection and Yes capillary refill normal Results Labs 08/13/25 06:11 08/13/25 06:11 Labs: Abnormal lab results 08/12/25 08/12/25 08/13/25 Range/Units 16:05 20:56 06:11 RBC 2.42 L (4.60-5.80) X10*6/uL Hgb 7.5 L (14.0-18.0) g/dl Hct 21.9 L (42.0-52.0) % Plt Count 132 L (160-400) X10*3/uL Sodium 134 L (135-145) mmol/L Anion Gap 9 L (12-20) BUN 29 H (9-16) mg/dL POC Glucose 162 H 165 H (60-115) mg/dL Calcium 7.3 L (8.4-10.2) mg/dL Crossmatch 08/13/25 08/13/25 Range/Units 10:35 11:15 RBC (4.60-5.80) X10*6/uL Hgb (14.0-18.0) g/dl Hct (42.0-52.0) % Plt Count (160-400) X10*3/uL Sodium (135-145) mmol/L Anion Gap (12-20) BUN (9-16) mg/dL POC Glucose 184 H (60-115) mg/dL Calcium (8.4-10.2) mg/dL Crossmatch See Detail Short CBC 08/13/25 Range/Units 06:11 WBC 5.7 (4.8-10.8) X10*3/uL Hgb 7.5 L (14.0-18.0) g/dl Hct 21.9 L (42.0-52.0) % Plt Count 132 L (160-400) X10*3/uL BMP 08/13/25 06:11 Sodium 134 L Potassium 3.8 Chloride 107 Carbon Dioxide 22 BUN 29 H Creatinine 1.09 Calcium 7.3 L Urine 08/09/25 Range/Units 16:53 Urine Color DK YELLOW Urine Appearance Cloudy Urine pH 7.0 (5.0-9.0) Ur Specific [place] 1.015 (1.005-1.025) Urine Protein 300 (3+) H (Neg-Trace) mg/dL Urine Glucose (UA) Negative (Negative) mg/dL All other labs normal. Assessment and Plan (1) Hematuria: Qualifiers: Hematuria type: gross Qualified Code(s): R31.0 - Gross hematuria Status: Acute (2) UTI (urinary tract infection) due to urinary indwelling Nunez catheter: Qualifiers: Indwelling urinary catheter type: indwelling urethral catheter E ncounter type: initial encounter Qualified Code(s): T83.511A - Infection and inflammatory reaction due to indwelling urethral catheter, initial encounter; N39.0 - Urinary tract infection, site not specified Status: Acute (3) Neurogenic bladder: Status: Acute Plan Nunez catheter replaced Outpatient follow-up Procedures Date of Service Date of Service: 08/13/25
[2025-08-13] MEDS: Bismuth Subsalicylate Liquid 524 MG/30 ML ORAL.SUSP PO (14:55)
[2025-08-13 16:43] LABS: Glucose, Whole Blood 150 mg/dL (60-115)
[2025-08-13 20:29] LABS: Glucose, Whole Blood 221 mg/dL (60-115)
[2025-08-13] MEDS: Insulin Glargine,Hum.rec.anlog 100 UNIT/ML 10 ML VIAL SUBCUT (21:01)
[2025-08-14 03:41] VITALS: BP 143/66; PULSE 76; RESP 18; TEMP 36.4; O2SAT 96
[2025-08-14 07:25] LABS: Creatinine Clr Calc Pharmacy 57.8; Estimated Glomerular Filt Rate > 60
[2025-08-14 07:56] LABS: Glucose, Whole Blood 118 mg/dL (60-115)
[2025-08-14 07:58] VITALS: BP 146/64; PULSE 76; RESP 18; TEMP 36; O2SAT 98
--- NOTE | 2025-08-14 08:05 | HE.PHANOTE ---
RE: VANCO DOSING Trough came back as 14.9 mg/L after getting one dose of 500 mg yesterday 08/13/25. Dose is changed to 750 mg x1 to get pt to therapeutic level predicted qol=026 trough=17.1 (indication=bacteremia). Next trough scheduled for 08/15/25@0700, will determine next dose then.
[2025-08-14 08:06] LABS: Anion Gap 11 (12-20); Blood Urea Nitrogen 25 mg/dL (9-16); Calcium 7.5 mg/dL (8.4-10.2); Carbon Dioxide 21 mmol/L (22-29); Chloride 105 mmol/L (96-108); Potassium 3.9 mmol/L (3.3-5.1); Sodium 133 mmol/L (135-145)
[2025-08-14 08:49] LABS: Hematocrit 27.0 % (42.0-52.0); Hemoglobin 9.4 g/dl (14.0-18.0); Mean Corpuscular HGB Conc 34.8 g/dl (31.0-36.0); Mean Corpuscular Hemoglobin 31.8 pg (27.0-33.0); Mean Corpuscular Volume 91.2 fL (80.0-98.0); NRBC Abs Auto 0.000 X10*3/uL (0.0-0.012); NRBC Pct Auto 0.0 /100WBC (0.0-0.2); Platelet Count 125 X10*3/uL (160-400); Red Blood Count 2.96 X10*6/uL (4.60-5.80); White Blood Count 5.3 X10*3/uL (4.8-10.8)
[2025-08-14] MEDS: Ferrous Sulfate 324 MG TABLET.DR PO (09:13)
--- NOTE | 2025-08-14 09:44 | P.PNIM_ITS ---
Documented By: DUSTIN Sodium Biphosphate/Sodium Phosphate (Sodium Phosphate,[place]inton-Dibasic 133 Ml Enema) 118 ml WV DAILY PRN PRN Reason: Constipation Sodium Chloride (0.9 % Sodium Chloride Flush 3 Ml Syringe) 3 ml IVFLUSH QSHIFT [facility] Last Admin: 08/14/25 09:13 Dose: Not Given Documented By: CONI Non-Admin Reason: IV Running Tramadol HCl (Tramadol Hcl 50 Mg Tablet) 50 mg PO BEDTIME PRN PRN Reason: Pain (Scale Score 4-6) Last Admin: 08/14/25 00:49 Dose: 50 mg Documented By: MAGDI Comments: per pt request Trazodone HCl (Trazodone Hcl 50 Mg Tablet) 50 mg PO BEDTIME PRN PRN Reason: Insomnia Last Admin: 08/14/25 00:49 Dose: 50 mg Documented By: MAGDI Vitamin D (Cholecalciferol (Vitamin D3) 25 Mcg Tablet) 25 mcg PO DAILY [facility] Last Admin: 08/14/25 09:13 Dose: 25 mcg Documented By: CONI Labs 08/14/25 08:00 08/14/25 05:39 Labs: Laboratory Results - last 24 hr 08/13/25 08/13/25 08/13/25 10:35 11:15 16:40 MCV MCH MCHC RDW Plt Count MPV Absolute Nucleated RBC Nucleated RBC % (auto) Hold Purple Top Anion Gap Estim Creat Clear Calc Estimated GFR POC Glucose 184 H 150 H Random Glucose Calcium Random Vancomycin Blood Type B Positive Antibody Screen NEGATIVE Crossmatch See Detail 08/13/25 08/14/25 08/14/25 20:26 05:39 07:48 MCV MCH MCHC RDW Plt Count MPV Absolute Nucleated RBC Nucleated RBC % (auto) Hold Purple Top SEE NOTE Anion Gap 11 L Estim Creat Clear Calc 57.8 Estimated GFR > 60 POC Glucose 221 H 118 H Random Glucose 81 Calcium 7.5 L Random Vancomycin 14.9 L Blood Type Antibody Screen Crossmatch 08/14/25 08:00 MCV 91.2 MCH 31.8 MCHC 34.8 RDW 14.6 Plt Count 125 L MPV 9.6 Absolute Nucleated RBC 0.000 Nucleated RBC % (auto) 0.0 Hold Purple Top Anion Gap Estim Creat Clear Calc Estimated GFR POC Glucose Random Glucose Calcium Random Vancomycin Blood Type Antibody Screen Crossmatch Microbiology Microbiology Results: Microbiology 08/09/25 17:46 Urine Culture - Final Urine Catheterized - Carty Catheter Olive albicans Assessment and Plan (1) Hematuria: Status: Acute Plan 80-year-old chronically bed bound male, resident of [facility] with pertinent history of bullous pemphigoid, MS, chronic Carty, mood disorder, insulin- dependent type 2 diabetes mellitus, mixed hyperlipidemia, hypertension who was sent to the emergency department for evaluation hematuria and urinary retention Acute blood loss anemia on chronic anemia hematuria d/t traumatic carty with bladder injury with extraluminar air seen by Uro, Carty cath properly inserted by urology, seen by surgery no intervention needed transfused 3 units, H/H is better, hematuria appear light asking for uro to reassess to decide on dc Acute kidney injury d/t urinary retention, EDWARD nearly resolved. Cr 1.09 from 1.54 Recent history of MRSA bacteremia, on Vancomycin, Pharmacy to adjust per as needed HyPOtension on admission, not due to sepsis, rather from chronic anemia on top of acute blood loss anemia--this has resolved. Bullous pemphigoid: On methotrexate. Continue Mixed hyperlipidemia: On statin Hypertension resume home meds once med rec completed Insulin-dependent type 2 diabetes mellitus: Sliding scale insulin dabetic diet DVT prophylaxis: compression device in light of hematuria and acut Full code. 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 He was transfused 1 unit of rbc yesterday with good effect, he would like to return to SNF Physical Exam 2 Vital Signs: Vital Signs: Last Vital Signs Temp 96.8 F 08/14/25 07:58 Pulse 76 08/14/25 07:58 Resp 18 08/14/25 07:58 BP 146/64 H 08/14/25 07:58 Pulse Ox 98 08/14/25 07:58 O2 Del Method Room Air 08/14/25 07:58 BMI result Body Mass Index 22.7 Const: Other: General: AO X 3, no acute distress Resp: CTA bilateral CVS: S1,S2,RRR GI: +BS, NT, no distention : carty still with light dark blood Skin: No rash Neuro: motor grossly intact Psych: appropriate affect Objective Data Active Medications Acetaminophen (Acetaminophen 325 Mg Tablet) 650 mg PO Q6H PRN PRN Reason: Pain, Mild 1-3,fever,headache Last Admin: 08/12/25 08:34 Dose: 650 mg Documented By: DUSTIN Acetaminophen (Acetaminophen 325 Mg Tablet) 650 mg PO Q4H PRN PRN Reason: mild pain/temp 100F Amlodipine Besylate (Amlodipine Besylate 10 Mg Tablet) 10 mg PO DAILY [facility]; Protocol Last Admin: 08/14/25 09:13 Dose: 10 mg Documented By: CONI Artificial Tears (Artificial Tears 15 Ml Drops) 1 drop EYE-BOTH QID [facility] Last Admin: 08/14/25 09:14 Dose: Not Given Documented By: CONI Non-Admin Reason: Patient Refused Ascorbic Acid (Ascorbic Acid 500 Mg Tablet) 500 mg PO DAILY [facility] Last Admin: 08/14/25 09:13 Dose: 500 mg Documented By: CONI Atorvastatin Calcium (Atorvastatin Calcium 40 Mg Tablet) 40 mg PO BEDTIME [facility] Last Admin: 08/13/25 20:58 Dose: 40 mg Documented By: MAGDI Bacitracin (Bacitracin Oint 14 Gm Tube) 1 appl TOPICAL BID [facility]; Protocol Last Admin: 08/14/25 09:14 Dose: Not Given Documented By: CONI Non-Admin Reason: Patient Refused Benzocaine (Throat Lozenge, Medicated Lozenge) 1 lozenge MUCOUS MEM QID PRN PRN Reason: Sore Throat Bisacodyl (Bisacodyl 5 Mg Tablet.Dr) 5 mg PO DAILY PRN PRN Reason: Constipation Bisacodyl (Bisacodyl 10 Mg Supp.Rect) 10 mg WV DAILY PRN PRN Reason: Constipation Bismuth Subsalicylate (Bismuth Subsalicylate Liquid 524 Mg/30 Ml Oral.Susp) 524 mg PO Q8H PRN PRN Reason: UPSET STOMACH/NAUSEA Last Admin: 08/13/25 14:55 Dose: 524 mg Documented By: CONI Calcium Carbonate (Calcium Carbonate 750 Mg Tab.Chew) 750 mg PO Q4H PRN PRN Reason: Heartburn Last Admin: 08/12/25 06:29 Dose: 750 mg Documented By: CARLEEN Carvedilol (Carvedilol 12.5 Mg Tablet) 12.5 mg PO BID [facility]; Protocol Last Admin: 08/14/25 09:12 Dose: 12.5 mg Documented By: CONI Dextrose (Dextrose 50 % 25 Gm/50 Ml Syringe) 25 gm IVPUSH Q15M PRN; Protocol PRN Reason: per Hypoglycemia Standing Ord. Docusate Sodium (Docusate Sodium 100 Mg Capsule) 200 mg PO BID [facility] Last Admin: 08/14/25 09:13 Dose: 200 mg Documented By: CONI Famotidine (Famotidine 20 Mg Tablet) 20 mg PO DAILY [facility] Last Admin: 08/14/25 09:13 Dose: 20 mg Documented By: CONI Ferrous Sulfate (Ferrous Sulfate 324 Mg Tablet.) 324 mg PO DAILY [facility] Last Admin: 08/14/25 09:13 Dose: 324 mg Documented By: CONI Folic Acid (Folic Acid 1 Mg Tablet) 1 mg PO DAILY [facility] Last Admin: 08/14/25 09:17 Dose: 1 mg Documented By: CONI Gabapentin (Gabapentin 300 Mg Capsule) 300 mg PO TID [facility] Last Admin: 08/14/25 09:13 Dose: 300 mg Documented By: CONI Glucose (Glucose Gel 15 Gm Gel..Gram.) 15 gm PO Q15M PRN; Protocol PRN Reason: per Hypoglycemia Standing Ord. Guaifenesin (Guaifenesin 200 Mg/10 Ml 10 Ml Liquid) 10 ml PO Q4H PRN PRN Reason: Cough Guaifenesin (Guaifenesin La 600 Mg Tab.Er.12h) 600 mg PO Q12H PRN PRN Reason: Cold Symptoms Guaifenesin (Guaifenesin La 600 Mg Tab.Er.12h) 600 mg PO BID [facility] Vancomycin HCl 500 mg/ Sodium (Chloride) 110 mls @ 110 mls/hr IV Q24H [facility] Vancomycin HCl 750 mg/ Sodium (Chloride) 265 mls @ 265 mls/hr IV ONCE ONE Stop: 08/14/25 09:59 Last Admin: 08/14/25 09:08 Dose: 265 mls/hr Documented By: CONI Insulin Glargine (Insulin Glargine,Hum.Rec.Anlog 100 Unit/Ml 10 Ml Vial) 3 unit SUBCUT BEDTIME [facility] Last Admin: 08/13/25 21:01 Dose: 3 unit Documented By: MAGDI Insulin Human Lispro (Insulin Lispro 100 Unit/Ml 3 Ml Vial) 0 unit SUBCUT QIDACHS [facility]; Protocol Last Admin: 08/14/25 07:49 Dose: Not Given Documented By: CONI Non-Admin Reason: No Insulin Coverage Lactulose (Lactulose 20 Gm/30 Ml Solution) 20 gm PO DAILY [facility] Last Admin: 08/14/25 09:17 Dose: Not Given Documented By: CONI Non-Admin Reason: Patient Refused Magnesium Hydroxide (Milk Of Magnesia 30 Ml Oral.Susp) 30 ml PO BEDTIME PRN PRN Reason: Constipation Melatonin (Melatonin 3 Mg Tablet) 6 mg PO BEDTIME PRN PRN Reason: Insomnia Last Admin: 08/13/25 20:59 Dose: 6 mg Documented By: MAGDI Methotrexate (Methotrexate Sodium 2.5 Mg Tablet) 15 mg PO MO@0900 [facility] Multivitamins/Vitamin C (Multivitamin Tablet) 1 tab PO DAILY [facility] Last Admin: 08/14/25 09:12 Dose: 1 tab Documented By: CONI Naloxone HCl (Naloxone Hcl 0.4 Mg/Ml Vial) 0.4 mg IM Q2M PRN PRN Reason: OPIOD OVERDOSE Ondansetron HCl (Ondansetron Hcl 4 Mg/2 Ml Vial) 4 mg IVPUSH Q8H PRN PRN Reason: Nausea and Vomiting Last Admin: 08/13/25 21:26 Dose: 4 mg Documented By: MAGDI Pharmacy Consult (Consult Rx Vancomycin Dosing) 1 each MISCELLANE DAILY PRN PRN Reason: Consult order Polyethylene Glycol (Polyethylene Glycol 3350 17 Gm Powd.Pack) 17 gm PO DAILY [facility] Last Admin: 08/14/25 09:17 Dose: Not Given Documented By: CONI Non-Admin Reason: Patient Refused Prednisone (Prednisone 2.5 Mg Tablet) 2.5 mg PO DAILY [facility] Last Admin: 08/14/25 09:13 Dose: 2.5 mg Documented By: CONI Senna/Docusate Sodium (Sennosides/Docusate Sodium Tablet) 2 tab PO BEDTIME [facility] Last Admin: 08/13/25 20:58 Dose: 2 tab Documented By: MAGDI Simethicone (Simethicone 80 Mg Tab.Chew) 80 mg PO Q6H PRN PRN Reason: Gas Last Admin: 08/12/25 08:33 Dose: 80 mg
[2025-08-14] MEDS: guaiFENesin LA 600 MG TAB.ER.12H PO (10:28)
[2025-08-14 11:24] LABS: Glucose, Whole Blood 161 mg/dL (60-115)
--- NOTE | 2025-08-14 14:35 | PM.DS ---
DS: Providers Provider Date of Service: 08/14/25 Date of admission: 08/09/25 16:59 Date of discharge: 08/14/25 Primary care physician: Get Martin MD Consults: 08/10/25 16:16 Consult to Wound Care Routine Reason for consultation: pressure injury coccyx 08/12/25 16:54 Consult to Urology Routine Consulting Provider: [facility] [place] Urology Services Reason for consultation: Hematuria DS: Diagnosis Discharge Diagnosis (1) Hematuria: Status: Acute DS: Summary Hospital Course Hospital Course: Admission hpi Chief Complaint: Hematuria, urinary retention, This has a 80-year-old chronically bed bound male, resident of [facility] with pertinent history of bullous pemphigoid, MS, chronic Carty, mood disorder, insulin-dependent type 2 diabetes mellitus, mixed hyperlipidemia, hypertension chronic indwelling carty cath. Patient has had recent carty catheter changed and has had limited urine output and blood and clots. Bladder scan had shown retention of 354. CBC show hemoglobin of 6.7, baseline about 9 to 10. He has new EDWARD with creatine of 1.56, baseline less than 1. CT of abdomen and pelvis show Carty catheter balloon inflated in the prostatic urethra with likely blood products layering in the urinary bladder lumen and likely post instrumentation gas. Trabeculated urinary bladder wall. Extraluminal gas right lateral perirectal concerning for perforation. Metallic foreign bodies at the duodenal jejunal junction and cecum. Eventration, left lateral abdominal wall. Left-sided pleural effusion and compression atelectasis versus airspace disease, lung bases. Questionable 4 mm pulmonary nodule right lung bases Urology has inserted a new Carty that is draining well. Surgery review CT finding and no indication for intervention. Of note he was recently admitted to the hospital and treated for MRSA bacteremia, during hospital stay had upper GI bleed and had EGD and suffered esophageal injury with bleeding and clot and was transfered to tertiary care center for thoracic surgery eval He was recently admitted for UTI, Edward and upper GI Bleeding Hospital course: 80-year-old chronically bed bound male, resident of [facility] with pertinent history of bullous pemphigoid, MS, chronic Catry, mood disorder, insulin-dependent type 2 diabetes mellitus, mixed hyperlipidemia, hypertension who was sent to the emergency department for evaluation hematuria and urinary retention following a carty insertion. He was recently hospitalized at [facility] for MRSA bacteremia, and suffered upper GI and following EGD had esophageal injury causing more upper GI bleeding with with large clot. He was ultimately transferred to [facility] for thoracic surgery evaluation but did not required intervention. He was discharged with PICC line to complete course of vancomycin for the MRSA bacteremia. Acute blood loss anemia on chronic anemia from hematuria d/t traumatic carty insertion with bladder injury with extraluminar air seen on CT. He was seen by Uro, Carty cath properly inserted by urology, seen by surgery no intervention needed for extraluminar air. He has been transfused a total of 3 units of RBC. Hemoglobin was 6.7 on presentation on 08/09 and today it is 9.4, he has underlying chronic anemia with baseline above 9 and less than 10, last transfusion was 08/13 when hemoglboin was 7.5 and received 1 unit of rbc. He has had hematuria mostly light and has not required CBI...Hematuria is now clear with a normal urine appearing in the Carty bag. He can carty up with urology on outpatient patient basis. Acute kidney injury d/t urinary retention, EDWARD nearly resolved. Cr 1.13from 1.54 Recent history of MRSA bacteremia, on Vancomycin on Vancomycin IV via PICC line since disharge from [facility]. He was to complete the course of Vancomycin on 08/10/25 and therefore now stopped. Repeat blood cultures are negative x 5 days, no fever and normal wbc as of today HyPOtension on admission, not due to sepsis, rather from chronic anemia on top of acute blood loss anemia--this has resolved. Bullous pemphigoid: On methotrexate. Continue Mixed hyperlipidemia: On statin Hypertension resume home meds once med rec completed Insulin-dependent type 2 diabetes mellitus: resume prior regimen dabetic diet Time Attestation Discharge Coordination Time (in mins): 45 Quality: Safe Use of Opioids Does Pt have an Active Cancer Diagnosis on the Problem List?: No Quality: Stroke Does the patient have a stroke diagnosis?: No Physical Exam Vital Signs: Vital Signs: Last Vital Signs Temp 96.8 F 08/14/25 07:58 Pulse 76 08/14/25 07:58 Resp 18 08/14/25 07:58 BP 146/64 H 08/14/25 07:58 Pulse Ox 98 08/14/25 07:58 O2 Del Method Room Air 08/14/25 07:58 BMI result Body Mass Index 22.7 DS: Data Data Completed and Pending Completed studies during hospitalization [Text1]: Procedures Change Drainage Device in Bladder, External Approach (02/25/24) Control Bleeding in Gastrointestinal Tract, Via Natural or Artificial Opening Endoscopic (07/10/25) Insertion of Endotracheal Airway into Trachea, Via Natural or Artificial Opening Endoscopic (05/14/21) Insertion of Infusion Device into Left Innominate Vein, Percutaneous Approach (07/10/25) Insertion of Infusion Device into Superior Vena Cava, Percutaneous Approach (05/28/24) Introduction of Mineral-based Topical Hemostatic Agent into Upper GI, Via Natural or Artificial Opening Endoscopic, [employer] 6 (07/10/25) Introduction of Vasopressor into Central Vein, Percutaneous Approach (05/28/24) Respiratory Ventilation, Greater than 96 Consecutive Hours (05/14/21) Transfusion of Nonautologous Red Blood Cells into Peripheral Vein, Percutaneous Approach (07/10/25) Ultrasonography of Left Upper Extremity Veins, Guidance (07/10/25) Ultrasonography of Superior Vena Cava, Guidance (05/28/24) Labs on day of discharge: Laboratory Results - last 24 hr 08/13/25 08/13/25 08/13/25 10:35 16:40 20:26 WBC RBC Hgb Hct MCV MCH MCHC RDW Plt Count MPV Absolute Nucleated RBC Nucleated RBC % (auto) Hold Purple Top Sodium Potassium Chloride Carbon Dioxide Anion Gap BUN Creatinine Estim Creat Clear Calc Estimated GFR POC Glucose 150 H 221 H Random Glucose Calcium Random Vancomycin Crossmatch See Detail 08/14/25 08/14/25 08/14/25 05:39 07:48 08:00 WBC 5.3 RBC 2.96 L D Hgb 9.4 L D Hct 27.0 L D MCV 91.2 MCH 31.8 MCHC 34.8 RDW 14.6 Plt Count 125 L MPV 9.6 Absolute Nucleated RBC 0.000 Nucleated RBC % (auto) 0.0 Hold Purple Top SEE NOTE Sodium 133 L Potassium 3.9 Chloride 105 Carbon Dioxide 21 L Anion Gap 11 L BUN 25 H Creatinine 1.13 Estim Creat Clear Calc 57.8 Estimated GFR > 60 POC Glucose 118 H Random Glucose 81 Calcium 7.5 L Random Vancomycin 14.9 L Crossmatch 08/14/25 11:20 WBC RBC Hgb Hct MCV MCH MCHC RDW Plt Count MPV Absolute Nucleated RBC Nucleated RBC % (auto) Hold Purple Top Sodium Potassium Chloride Carbon Dioxide Anion Gap BUN Creatinine Estim Creat Clear Calc Estimated GFR POC Glucose 161 H Random Glucose Calcium Random Vancomycin Crossmatch Discharge Plan Discharge Anticipated Discharge Date/Time: 08/14/25 14:26 Patient Disposition: Xfer [facility] Discharge Diagnosis: Hemaruria, obstructive uropathy Referrals: [facility] [Other] - 1 Week Get Martin MD [Primary Care Provider, Internal Medicine] - 1 Week Discharge Medications: Continued ceramides 1,3,6-II [CeraVe] Cream 1 appl TOPICAL BID bacitracin 500 unit/gram Ointment 1 appl TOPICAL BID Protocol: Apply to: Apply to: BILATERAL FEET acetaminophen 325 mg Tablet 650 mg PO Q4H PRN (Reason: mild pain/temp 100F) insulin lispro [Admelog SoloStar U-100 Insulin] 100 unit/mL Insulin Pen 1 sliding scale dose SUBCUT BID Rx Instructions: BS 200 - 249 = 2 units BS 250-299 = 4 units BS 300-349 = 6 units BS 350 - 399 = 8 units call MD if glucose > 400 amlodipine 10 mg Tablet 10 mg PO DAILY Protocol: Hold for SBP< HOLD for SBP < : 90 ascorbic acid (vitamin C) 500 mg Tablet 500 mg PO DAILY aspirin [Aspir-81] 81 mg Tablet,Delayed Release (Dr/Ec) 81 mg PO DAILY bisacodyl 5 mg Tablet 5 mg PO DAILY PRN (Reason: Constipation) bisacodyl 10 mg Suppository 10 mg SD DAILY PRN (Reason: Constipation) carvedilol 12.5 mg Tablet 12.5 mg PO BID Rx Instructions: must administer with a meal/food Chloraseptic Sore Throat 6-10 mg Lozenge 1 ray MUCOUS MEMBRANE QID PRN (Reason: Sore Throat) cholecalciferol (vitamin D3) 25 mcg (1,000 unit) Tablet 25 mcg PO DAILY docusate sodium 100 mg Capsule 200 mg PO BID guaifenesin 100 mg/5 mL Liquid 200 mg PO Q4H PRN (Reason: Cough) lactulose 10 gram/15 mL Solution 20 g PO DAILY famotidine 20 mg Tablet 20 mg PO DAILY ferrous sulfate 325 mg (65 mg iron) Tablet 325 mg PO DAILY Fleet Enema 19-7 gram/118 mL Enema 118 ml SD DAILY PRN (Reason: Constipation) Rx Instructions: IF NO RESULT FROM DULCOLAX WITHIN 2 HOURS folic acid 1 mg Tablet 1 mg PO DAILY gabapentin 300 mg Capsule 300 mg PO TID Hydrocerin (with petrolatum) Cream 1 appl TOPICAL BID insulin glargine-yfgn 100 unit/mL Solution 3 unit SUBCUT BEDTIME methotrexate sodium 2.5 mg Tablet 15 mg PO MO@0900 magnesium hydroxide [Milk of Magnesia] 400 mg/5 mL Suspension 30 ml PO BEDTIME PRN (Reason: Constipation) polyethylene glycol 3350 [Miralax] 17 gram/dose Powder 17 g PO DAILY guaifenesin [Mucinex] 600 mg Tablet Extended Release 12hr 600 mg PO Q12H PRN (Reason: Cold Symptoms) multivitamin Tablet 1 tab PO DAILY naloxone 0.4 mg/mL Solution 0.4 mg IM Q2M PRN (Reason: OPIOD OVERDOSE) Rx Instructions: NTExceed 10 mg total dose/episode ondansetron 4 mg Tablet,Disintegrating 4 mg PO Q4H PRN (Reason: NAUSEA/VOMITING) bismuth subsalicylate [Pepto-Bismol] 262 mg/15 mL Suspension 524 mg PO Q8H PRN (Reason: UPSET STOMACH/NAUSEA) Rx Instructions: do not exceed 8 doses in a 24 hour period Remedy Phytoplex Z-Guard 57 % Paste 1 ea TOPICAL DAILY Protocol: Apply to: Apply to: SACRUM prednisone 2.5 mg Tablet 2.5 mg PO DAILY carboxymethylcellulose sodium [Refresh Tears] 0.5 % Drops 1 drp OPHTHALMIC (EYE) QID rosuvastatin 10 mg Tablet 10 mg PO BEDTIME ramelteon [Rozerem] 8 mg Tablet 8 mg PO BEDTIME PRN (Reason: Insomnia) sennosides-docusate sodium [Senna Laxative-Stool Softener] 8.6-50 mg Tablet 2 tab-cap PO BEDTIME simethicone 80 mg Tablet,Chewable 80 mg PO Q6H PRN (Reason: GAS) tramadol 50 mg Tablet 50 mg PO BEDTIME PRN (Reason: Pain (Scale Score 4-6)) trazodone 50 mg Tablet 50 mg PO BEDTIME PRN (Reason: Insomnia) acetaminophen 325 mg Tablet 650 mg PO BEDTIME vancomycin in 0.9 % sodium chl 500 mg/100 mL Piggyback 500 mg IV DAILY Rx Instructions: ORDERED UNTIL 08/10/25 Diet: Diabetic diet Activity on Discharge: As tolerated Stand Alone Forms: Patient Portal Discharge page Print Language: Urdu Care Plan Goals: recovery from hematuria and acute blood loss anemia Health Concerns: hematuria acute blood loss anemia obstructive uropathy Acute kidney injury Plan of Treatment: To return to SNF has completed vancomycin therapy for MRSA bacteremia Outpatient follow up with urology Assessment: see above
--- NOTE | 2025-08-14 15:28 | MHC.CM.PN ---
Patient is medically cleared to discharge today. Patient and his have been notified of the discharge today. They are in agreement with the dc. [facility] has been notified of the DC today. They accept [facility] Transportation has been set up with [facility]. An early dinner has been requested. DO return to [facility] via BLS.
--- NOTE | 2025-08-14 15:46 | P.EN_ITS ---
Event Note Date of Service: 08/14/25 Event Note: Picc line inserted at [place] removed following completion of Abx, measures 38 cm, no kink or tear noted Time Spent With Patient Time: Total time managing care of this patient today ____ minutes.
[2025-08-14 15:57] VITALS: BP 130/58; PULSE 77; RESP 18; TEMP 36.2; O2SAT 98
[2025-08-14 16:13] LABS: Glucose, Whole Blood 251 mg/dL (60-115)
--- NOTE | 2025-08-14 17:42 | PC.NURSE ---
D/C To facility by Chidi Fan RN
--- NOTE | 2025-08-14 20:30 | P.CDIM_ITS ---
PROVIDER RESPONSE TEXT: To clarify, the appropriate diagnosis supported by the clinical indicators: CKD, please provide stage: 2 QUERY TEXT: PHYSICIAN'S DOCUMENTATION REQUEST Date of Query: 08/11/2025 10:06 AM EDT Patient Name: ANAND POTTS Admit Date: 08/09/2025 Dear Juan Sykes MD, A review of the medical record indicates additional documentation may be needed. Please review below and update the documentation accordingly. Clinical Indicators: Progress notes with in the Past Medical History - Chronic renal failure Acute kidney injury d/t urinary retention. IVF and repeat labs GFR 43/52 CR 1.56 BUN 17 Please clarify which of the following accurately represents the Stage of the patient's CKD: CKD, please provide stage 1, 2, 3a, 3b, 4 ESRD - CKD V now requiring permanent dialysis and/or transplant Other (explain) Clinically unable to determine (explain) Thank you, Мария Priest, CCS, CDIS Use of terms such as suspected, likely, concern for, or probable (associated with a specific diagnosis that is being evaluated, monitored, or treated as if it exists) are acceptable and can be coded in the inpatient setting, when documented at the time of discharge. Please use your independent medical judgment in providing your response. THIS QUERY IS PART OF THE PERMANENT MEDICAL RECORD
== END 2025-08-14 17:42 | disposition skilled nursing facility (03) | DRG 699 ==
LOC: HO.ED 15:57 → HO.EDOVER 17:07 → HO.S3 08-10 10:18
PROVIDERS: Hospitalist; Physician Assistant Medical; Admitting Provider Internal Medicine; Emergency Provider Emergency Medicine Emergency Medical Services; PCP Family Medicine Geriatric Medicine; Referring Provider Internal Medicine; Visit Provider Internal Medicine
DX: T83.83XA Hemorrhage due to genitourinary prosthetic devices, implants and grafts, initial encounter (principal); D62 Acute posthemorrhagic anemia; N13.8 Other obstructive and reflux uropathy; N17.9 Acute kidney failure, unspecified; L12.0 Bullous pemphigoid; R78.81 Bacteremia; N40.1 Benign prostatic hyperplasia with lower urinary tract symptoms; G35 Multiple sclerosis; E78.2 Mixed hyperlipidemia; B95.62 Methicillin resistant Staphylococcus aureus infection as the cause of diseases classified elsewhere; R31.0 Gross hematuria; N18.2 Chronic kidney disease, stage 2 (mild); I95.9 Hypotension, unspecified; Y73.8 Miscellaneous gastroenterology and urology devices associated with adverse incidents, not elsewhere classified; D63.1 Anemia in chronic kidney disease; N32.89 Other specified disorders of bladder; I12.9 Hypertensive chronic kidney disease with stage 1 through stage 4 chronic kidney disease, or unspecified chronic kidney disease; R33.8 Other retention of urine; E11.22 Type 2 diabetes mellitus with diabetic chronic kidney disease; Z74.01 Bed confinement status; Z87.891 Personal history of nicotine dependence; Z79.4 Long term (current) use of insulin; Z79.631 Long term (current) use of antimetabolite agent; Z79.899 Other long term (current) drug therapy
CPT/HCPCS: 36415; 74177; 80048; 80053; 80202; 81001; 81003; 82565; 82947; 83605; 83735; 85025; 85027; 86850; 86900; 86901; 86923; 87040; 87086; 87088; 99285; J0131; J2405; J3373; J3374; P9016; Q9967

== ENCOUNTER → 2025-08-09 09:43 | Outpatient (BNV) | payer OTHER, SELFPAY | PROVIDERS: Emergency Provider Emergency Medicine; PCP Family Medicine Geriatric Medicine; Visit Provider Radiology Diagnostic Radiology | DX: R31.9 Hematuria, unspecified (principal); Z46.6 Encounter for fitting and adjustment of urinary device | CPT/HCPCS: 74177 ==

== ENCOUNTER → 2025-08-09 16:59 | Outpatient (BNV) | payer OTHER, SELFPAY | PROVIDERS: Admitting Provider Internal Medicine; Emergency Provider Emergency Medicine Emergency Medical Services; PCP Family Medicine Geriatric Medicine; Visit Provider Internal Medicine | DX: R31.9 Hematuria, unspecified (principal); K62.89 Other specified diseases of anus and rectum | CPT/HCPCS: 99223; 99232 ==

== ENCOUNTER → 2025-08-09 16:59 | Outpatient (BNV) | payer OTHER, SELFPAY | PROVIDERS: Admitting Provider Internal Medicine; Emergency Provider Emergency Medicine Emergency Medical Services; PCP Family Medicine Geriatric Medicine; Visit Provider Urology | DX: R31.0 Gross hematuria (principal); T83.511A Infection and inflammatory reaction due to indwelling urethral catheter, initial encounter; N39.0 Urinary tract infection, site not specified; N31.9 Neuromuscular dysfunction of bladder, unspecified; N13.9 Obstructive and reflux uropathy, unspecified; R78.81 Bacteremia; B95.62 Methicillin resistant Staphylococcus aureus infection as the cause of diseases classified elsewhere; R33.9 Retention of urine, unspecified | CPT/HCPCS: 51702; 99222; 99232 ==

== ENCOUNTER 2025-08-15 18:46 | Emergency (ER) | payer MEDICARE, OTHER, SELFPAY ==
[2025-08-15 19:02] VITALS: BP 139/51; PULSE 83; RESP 17; TEMP 36.8; O2SAT 98
[2025-08-15 19:12] VITALS: BP 132/68; PULSE 89; O2SAT 98
[2025-08-15 19:18] VITALS: BP 139/51; PULSE 80; RESP 16; TEMP 36.9; O2SAT 98; BMI 23.7
[2025-08-15 20:19] VITALS: BP 142/55; PULSE 85; RESP 17; TEMP 36.8; O2SAT 95
--- OUTSIDE RECORDS SUMMARY | 2025-08-15 21:54 | XMS_ITS | Clinical Summary ---
Author Organization [facility] Address [address] [place] [address] Care Team Providers Care Facility Service Associate Name Role Phone Unavailable Primary Care Provider Unavailabl e Allergies Active Allergy Reactions Criticality Noted Date Comments Benzodiazepines Unknown/Patient and Family Unable to Define Medium 07/19/2025 Dalfampridine Unknown/Patient and Family Unable to Define Medium 07/19/2025 Doxycycline Other (See Comments) Low 07/19/2025 Esophageal irritation Duloxetine Unknown/Patient and Family Unable to Define Medium 07/19/2025 Ertapenem Other (See Comments) High 07/19/2025 Bullous pemphigoid Ezetimibe Unknown/Patient and Family Unable to Define Medium 07/19/2025 Lorazepam Other (See Comments) High 07/19/2025 Excessive sedation Methylprednisolone Other (See Comments) Low 025 heartburn Niacin Unknown/Patient and Family Unable to Define Medium 07/19/2025 Statins Unknown/Patient and Family Unable to Define Medium 07/19/2025 Medications amLODIPine (NORVASC) 10 MG tabletIndicatio ns:Hypertension , unspecified type Take 1 tablet (10 mg total) by mouth daily. 5 025 Active benzocaine-ment hol (CHLORASEPTIC) 6-10 MG lozengeIndicati ons:Multiple sclerosis (HCC) Apply 1 lozenge to the mouth or throat 4 (four) times a day. 5 025 Active bisacodyl (DULCOLAX) 10 MG suppositoryIndi cations:Multipl e sclerosis (HCC) Insert 1 suppository (10 mg total) into the rectum daily as needed for constipation (if no bowel movement by day 2). 5 Active carboxymethylce llulose (REFRESH PLUS) 0.5 % SolutionIndicat ions:Multiple sclerosis (HCC) Administer 1 drop to both eyes 4 (four) times a day as needed for dry eyes. 5 025 Active carvedilol (COREG) 12.5 MG tabletIndicatio ns:Hypertension , unspecified type Take 1 tablet (12.5 mg total) by mouth 2 (two) times a day with meals. 5 Active famotidine (PEPCID) 20 MG tabletIndicatio ns:Multiple sclerosis (HCC) Take 1 tablet (20 mg total) by mouth daily. Active folic acid (FOLVITE) 1 MG tabletIndicatio ns:Multiple sclerosis (HCC) Take 1 tablet (1 mg total) by mouth daily. Active gabapentin (NEURONTIN) 300 MG capsuleIndicati ons:Multiple sclerosis (HCC) Take 1 capsule (300 mg total) by mouth 3 (three) times a day. 5 Active hydrocerin (EUCERIN) creamIndication s:Multiple sclerosis (HCC) Apply topically 2 (two) times a day. Active lactulose (ENULOSE) 10 gm/15 mL solutionIndicat ions:Multiple sclerosis (HCC) Take 30 mL (20 g total) by mouth daily as needed (if no bowel movment by day 3). Active lidocaine (XYLOCAINE) 2 % solutionIndicat ions:Multiple sclerosis (HCC) Take 5 mL by mouth 3 (three) times a day as needed for mild pain. 5 025 Active miconazole (ZEASORB-AF) 2 % powderIndicatio ns:Multiple sclerosis (HCC) Apply topically 2 (two) times a day. Active multivitamin with minerals Tab tabletIndicatio ns:Multiple sclerosis (HCC) Take 1 tablet by mouth daily. 5 025 Active polyethylene glycol (miraLAx) 17 g packetIndicatio ns:Multiple sclerosis (HCC) Take 1 packet (17 g total) by mouth daily. Active predniSONE (DELTASONE) 2.5 MG tabletIndicatio ns:Multiple sclerosis (HCC) Take 1 tablet (2.5 mg total) by mouth every morning with breakfast. With food. Active ramelteon (ROZEREM) 8 MG tabletIndicatio ns:Multiple sclerosis (HCC) Take 1 tablet (8 mg total) by mouth nightly as needed for sleep. Active senna-docusate (SENNA-S) 8.6-50 MGIndications:M ultiple sclerosis (HCC) Take 2 tablets by mouth nightly. Active simethicone (MYLICON) 40 MG/0.6ML dropsIndication s:Multiple sclerosis (HCC) Take 1.2 mL (80 mg total) by mouth 4 times daily (every 6 hours) as needed for flatulence. Active vancomycin 500 mg in sodium chloride-MBP 0.9% 100 mL IVPB-WTDIndicat ions:MRSA bacteremia Infuse 500 mg into a venous catheter every 24 hours. Vancomycin IV 500 mg daily at 11 PM 5 025 Active Problems Problem Noted Date Diagnosed Date Hypocalcemia 07/24/2025 Assessment & Plan (07/25/2025 3:45 PM EDT): -Patient evaluated cardiology-no further investigation needed Telemetry discontinued Assessment & Plan (07/24/2025 12:29 PM EDT): -Appreciate cardiology consult - Continue carvedilol - Ordered echocardiogram - His calcium is 6.9, albumin 2 corrected calcium is 8.5. - Replete potassium and magnesium Anemia 07/24/2025 Assessment & Plan (07/25/2025 3:45 PM EDT): -Will continue to monitor hemoglobin Assessment & Plan (07/24/2025 12:29 PM EDT): Hemoglobin dropped to 7.6 today, he has not had any melena or hematemesis Will recheck H&H this afternoon Transfuse for hemoglobin less than 7, if H&H continues to drop, will reinvolve GI to consider EGD Hypokalemia 07/24/2025 Assessment & Plan (07/25/2025 3:45 PM EDT): -Patient evaluated cardiology-no further investigation needed Telemetry discontinued Assessment & Plan (07/24/2025 12:29 PM EDT): -Appreciate cardiology consult - Continue carvedilol - Ordered echocardiogram - His calcium is 6.9, albumin 2 corrected calcium is 8.5. - Replete potassium and magnesium Frequent PVCs 07/23/2025 Assessment & Plan (07/25/2025 3:45 PM EDT): -Patient evaluated cardiology-no further investigation needed Telemetry discontinued Assessment & Plan (07/24/2025 12:29 PM EDT): -Appreciate cardiology consult - Continue carvedilol - Ordered echocardiogram - His calcium is 6.9, albumin 2 corrected calcium is 8.5. - Replete potassium and magnesium Assessment & Plan (07/23/2025 11:35 AM EDT): Patient with frequent PVCs on telemetry, he is asymptomatic, he is complaining of chest pain however this is related to heartburns. Troponin was 30. His EKG shows bigeminy, otherwise no acute ischemic changes - Restarted carvedilol and increase dose from 6.25-12.5 twice daily - Replete potassium - Check magnesium and replete as needed - Consult cardiology to see if they will have any further recommendation MRSA bacteremia 07/19/2025 Assessment & Plan (07/25/2025 3:45 PM EDT): -On IV vancomycin-patient was seen by ID-recommended to continue antibiotic treatment as decided by ID team at previous hospital IV vancomycin to continue till 08/01/2025 - Patient continues to tolerate oral diet Continue Protonix, Pepcid Continue amlodipine, Coreg Assessment & Plan (07/24/2025 12:29 PM EDT): -Continue IV vancomycin for MRSA bacteremia, EOT 08/11, patient should follow-up with his ID at [place] on discharge - Tolerating regular diet but continues to have poor p.o. intake, he was cleared for regular thins by LAW OFFICE MANAGER - Continue Chloraseptic for throat pain - Added for shows lidocaine for throat pain or discomfort - Continue PPI twice daily, will switch to p.o. - Continue Pepcid - Continue amlodipine and carvedilol for hypertension Assessment & Plan (07/23/2025 11:35 AM EDT): -Continue IV vancomycin for MRSA bacteremia, EOT 08/11, patient should follow-up with his ID at [place] on discharge - Tolerating regular diet but continues to have poor p.o. intake, he was cleared for regular thins by LAW OFFICE MANAGER - Continue Chloraseptic for throat pain - Added for shows lidocaine for throat pain or discomfort - Continue PPI twice daily, will switch to p.o. - Added famotidine 20 mg daily Bullous pemphigoid 07/19/2025 Assessment & Plan (07/25/2025 3:45 PM EDT): -On IV vancomycin-patient was seen by ID-recommended to continue antibiotic treatment as decided by ID team at previous hospital IV vancomycin to continue till 08/01/2025 - Patient continues to tolerate oral diet Continue Protonix, Pepcid Continue amlodipine, Coreg Assessment & Plan (07/24/2025 12:29 PM EDT): -Continue IV vancomycin for MRSA bacteremia, EOT 08/11, patient should follow-up with his ID at [place] on discharge - Tolerating regular diet but continues to have poor p.o. intake, he was cleared for regular thins by LAW OFFICE MANAGER - Continue Chloraseptic for throat pain - Added for shows lidocaine for throat pain or discomfort - Continue PPI twice daily, will switch to p.o. - Continue Pepcid - Continue amlodipine and carvedilol for hypertension Assessment & Plan (07/23/2025 11:35 AM EDT): -Continue IV vancomycin for MRSA bacteremia, EOT 08/11, patient should follow-up with his ID at [place] on discharge - Tolerating regular diet but continues to have poor p.o. intake, he was cleared for regular thins by LAW OFFICE MANAGER - Continue Chloraseptic for throat pain - Added for shows lidocaine for throat pain or discomfort - Continue PPI twice daily, will switch to p.o. - Added famotidine 20 mg daily Urinary retention 07/19/2025 Assessment & Plan (07/25/2025 3:45 PM EDT): -On IV vancomycin-patient was seen by ID-recommended to continue antibiotic treatment as decided by ID team at previous hospital IV vancomycin to continue till 08/01/2025 - Patient continues to tolerate oral diet Continue Protonix, Pepcid Continue amlodipine, Coreg Assessment & Plan (07/24/2025 12:29 PM EDT): -Continue IV vancomycin for MRSA bacteremia, EOT 08/11, patient should follow-up with his ID at [place] on discharge - Tolerating regular diet but continues to have poor p.o. intake, he was cleared for regular thins by LAW OFFICE MANAGER - Continue Chloraseptic for throat pain - Added for shows lidocaine for throat pain or discomfort - Continue PPI twice daily, will switch to p.o. - Continue Pepcid - Continue amlodipine and carvedilol for hypertension Assessment & Plan (07/23/2025 11:35 AM EDT): -Continue IV vancomycin for MRSA bacteremia, EOT 08/11, patient should follow-up with his ID at [place] on discharge - Tolerating regular diet but continues to have poor p.o. intake, he was cleared for regular thins by LAW OFFICE MANAGER - Continue Chloraseptic for throat pain - Added for shows lidocaine for throat pain or discomfort - Continue PPI twice daily, will switch to p.o. - Added famotidine 20 mg daily HTN (hypertension) 07/19/2025 Assessment & Plan (07/25/2025 3:45 PM EDT): -On IV vancomycin-patient was seen by ID-recommended to continue antibiotic treatment as decided by ID team at previous hospital IV vancomycin to continue till 08/01/2025 - Patient continues to tolerate oral diet Continue Protonix, Pepcid Continue amlodipine, Coreg Assessment & Plan (07/24/2025 12:29 PM EDT): -Continue IV vancomycin for MRSA bacteremia, EOT 08/11, patient should follow-up with his ID at [place] on discharge - Tolerating regular diet but continues to have poor p.o. intake, he was cleared for regular thins by LAW OFFICE MANAGER - Continue Chloraseptic for throat pain - Added for shows lidocaine for throat pain or discomfort - Continue PPI twice daily, will switch to p.o. - Continue Pepcid - Continue amlodipine and carvedilol for hypertension Assessment & Plan (07/23/2025 11:35 AM EDT): -Continue IV vancomycin for MRSA bacteremia, EOT 08/11, patient should follow-up with his ID at [place] on discharge - Tolerating regular diet but continues to have poor p.o. intake, he was cleared for regular thins by LAW OFFICE MANAGER - Continue Chloraseptic for throat pain - Added for shows lidocaine for throat pain or discomfort - Continue PPI twice daily, will switch to p.o. - Added famotidine 20 mg daily Gastric outlet obstruction 07/19/2025 Assessment & Plan (07/25/2025 3:45 PM EDT): -On IV vancomycin-patient was seen by ID-recommended to continue antibiotic treatment as decided by ID team at previous hospital IV vancomycin to continue till 08/01/2025 - Patient continues to tolerate oral diet Continue Protonix, Pepcid Continue amlodipine, Coreg Assessment & Plan (07/24/2025 12:29 PM EDT): -Continue IV vancomycin for MRSA bacteremia, EOT 08/11, patient should follow-up with his ID at [place] on discharge - Tolerating regular diet but continues to have poor p.o. intake, he was cleared for regular thins by LAW OFFICE MANAGER - Continue Chloraseptic for throat pain - Added for shows lidocaine for throat pain or discomfort - Continue PPI twice daily, will switch to p.o. - Continue Pepcid - Continue amlodipine and carvedilol for hypertension Assessment & Plan (07/23/2025 11:35 AM EDT): -Continue IV vancomycin for MRSA bacteremia, EOT 08/11, patient should follow-up with his ID at [place] on discharge - Tolerating regular diet but continues to have poor p.o. intake, he was cleared for regular thins by LAW OFFICE MANAGER - Continue Chloraseptic for throat pain - Added for shows lidocaine for throat pain or discomfort - Continue PPI twice daily, will switch to p.o. - Added famotidine 20 mg daily Diabetes 07/19/2025 Assessment & Plan (07/25/2025 3:45 PM EDT): -Continue insulin lispro as per sliding scale Assessment & Plan (07/24/2025 12:29 PM EDT): Blood glucose 181 on BMP Will start sliding scale insulin Assessment & Plan (07/23/2025 11:35 AM EDT): Blood glucose have been within range on his BMPs, will continue to monitor Decubitus ulcer of coccygeal region, stage 2 Assessment & Plan (07/25/2025 3:45 PM EDT): -Patient seen by wound care Assessment & Plan (07/24/2025 12:29 PM EDT): Wound care consult Assessment & Plan (07/23/2025 11:35 AM EDT): Wound care follow-up Urinary tract infection asso ciated with indwelling urethral catheter 07/19/2025 Assessment & Plan (07/25/2025 3:45 PM EDT): -On chronic Nunez Assessment & Plan (07/24/2025 12:29 PM EDT): On chronic Nunez Assessment & Plan (07/23/2025 11:35 AM EDT): -Chronic Nunez Resolved Problems Problem Noted Date Diagnosed Date Resolved Date EDWARD (acute kidney injury) 07/23/2025 Assessment & Plan (07/24/2025 12:29 PM EDT): Stop D5W, sodium improved to 135 creatinine improved to 1.3 Continue to monitor BMP daily Assessment & Plan (07/23/2025 11:35 AM EDT): Likely prerenal in the setting of poor p.o. intake, his creatinine is 1.40.8 on admission, unclear what his baseline is. He also has hyper per natremia and hyperchloremia suggesting possible free water deficit - Will start D5W - Continue to monitor BMP daily - Avoid nephrotoxic agents Hypernatremia 07/23/2025 07/24/2025 Assessment & Plan (07/24/2025 12:29 PM EDT): Stop D5W, sodium improved to 135 creatinine improved to 1.3 Continue to monitor BMP daily Assessment & Plan (07/23/2025 11:35 AM EDT): Likely prerenal in the setting of poor p.o. intake, his creatinine is 1.40.8 on admission, unclear what his baseline is. He also has hyper per natremia and hyperchloremia suggesting possible free water deficit - Will start D5W - Continue to monitor BMP daily - Avoid nephrotoxic agents Upper GI bleed 07/19/2025 07/23/2025 Assessment & Plan (07/23/2025 11:35 AM EDT): H&H remained stable at 8.7 per GI no further plans for endoscopy or colonoscopy inpatient Acute hypoxemic respiratory failure 07/19/2025 07/23/2025 Assessment & Plan (07/22/2025 4:45 PM EDT): Plan Advance diet to regular thin liquids Will ask LAW OFFICE MANAGER to evaluate for any dysphagia He is complaining of heartburns and chest pain, will get an EKG Continue PPI Ordered Chloraseptic for throat pain Monitor for abdominal distention, nausea vomiting Continue IV vancomycin for MRSA bacteremia, EOT 08/11, patient should follow-up with his ID at [place] on discharge Family was concerned that patient needed colonoscopy, I discussed with GI and there were no plans for colonoscopy inpatient Anticipate he can be discharged in the next 24 hours if he tolerates his diet Encounters Date Type Department Care Team Description 07/21/2025 Travel 07/19/2025 8:25 PM EDT - 07/26/2025 5:22 PM EDT Hospital Encounter [facility] [address] [place] [phone] Darian Pollard MD Troy, MD Asya Corral Selina, MD Addai-Boateng, Hassana, MD Kottarathara, Emeka Khan MD Hypertension, unspecified type (Primary Dx); MRSA bacteremia; Multiple sclerosis (HCC) Discharge Disposition: [facility] 07/19/2025 4:00 PM EDT Ancillary Procedure [facility] [address] [place] [phone] Provider, File Room 07/19/2025 3:55 PM EDT Ancillary Procedure [facility] [address] [place] [phone] Provider, File Room 07/19/2025 3:55 PM EDT Ancillary Procedure [facility] [address] [place] [phone] Provider, File Room 07/19/2025 3:50 PM EDT Ancillary Procedure [facility] [address] [place] [phone] Provider, File Room 07/19/2025 3:50 PM EDT Ancillary Procedure [facility] [address] [place] [phone] Provider, File Room 07/19/2025 3:45 PM EDT Ancillary Procedure [facility] [address] [place] [phone] Provider, File Room 07/19/2025 3:45 PM EDT Ancillary Procedure [facility] [address] [place] [phone] Provider, File Room 07/19/2025 3:00 PM EDT Ancillary Procedure [facility] [address] [place] [phone] Provider, File Room 07/19/2025 Orders Only [facility] [address] [place] [phone] Provider, File Room 07/12/2025 Orders Only [facility] [address] [place] [phone] Provider, File Room from Last 3 Months Social History Tobacco Use Types Packs/Day Years Used Date Smoking Tobacco: Never Assessed [facility] Utilities Answer Date Recorded In the past 12 months has th e electric, gas, oil, or water company threatened to shut off services in your home? No 07/21/2025 Hunger Vital Sign Answer Date Recorded Within the past 12 months, y ou worried that your food would run out before you got the money to buy more. Never true 07/21/20 25 Within the past 12 months, t he food you bought just didn't last and you didn't have money to get more. Never true 07/21/2025 PRAPARE - Transportation Answer Date Re corded In the past 12 months, has l ack of transportation kept you from medical appointments or from getting medications? No 07/02 In the past 12 months, has l ack of transportation kept you from meetings, work, or from getting things needed for daily living? No 07/21/2025 Housing Stability Vital Sign Answer Jong e Recorded In the last 12 months, was t here a time when you were not able to pay the mortgage or rent on time? No 07/21/2025 In the past 12 months, how m any times have you moved where you were living? 0 07/21/2025 At any time in the past 12 m [facility], were you homeless or living in a penitentiary (including now)? No 07/21/2025 Sex and Gender Information Value Date Recorded Sex Assigned at Male 07/21/2025 9:52 AM EDT Legal Sex Male 2:40 PM EDT Gender Identity Male 07/21/2025 9:52 AM EDT Sexual Orientation Heterosexual (straight) 07/21 9:52 AM EDT Last Filed Vital Signs Vital Sign [place] Time Taken Comments Blood Pressure 122/61 07/26/2025 7:37 AM EDT Pulse 80 07/26/2025 7:37 AM EDT Temperature 35.9 C (96.6 F) 07/26/2025 6:00 AM EDT Respiratory Rate 16 07/26/2025 6:00 AM EDT Oxygen Saturation 97% 07/26/2025 6:00 AM EDT Inhaled Oxygen Concentration - - Weight 90.1 kg (198 lb 10.2 oz) 07/26/2025 6:00 AM EDT Height 170 cm (5' 6.93 ) 07/20/2025 3:00 AM EDT Body Mass Index 31.18 07/20/2025 3:00 AM EDT Plan of Treatment Health Maintenance Due Date Last Done Comments Hepatitis C Virus Screening 1945 Foot Exam 1957 Lipid Panel 1957 Ophthalmology Exam 1957 Microalbumin/Creatinine Ratio Urine 1965 DTaP/Tdap/Td Vaccines (1 - Tdap) 1966 Pneumococcal Vaccines 50+ (1 of 2 - PCV) 1966 Zoster (Shingles) Vaccine (1 of 2) 1997 RSV Vaccine 60 years and older and Patients (1 - 1-dose 75+ series) 2022 Influenza Vaccine 07/01/2025 09/16/2024, , 09/04/2022, Additional history exists COVID-19 Vaccine ( season) 2025 11/04/2024, 10/14/2023, 12/30/2020, Additional history exists Hemoglobin A1C 01/20/2026 07/20/2025 Creatinine with GFR 07/26/2026 07/26/2025, 07/25/2025, 07/24/2025, Additional history exists Advance Care Planning Completed 07/20/2025 Hepatitis B Vaccines Aged Out No long er eligible based on patient's age to complete this topic Procedures Procedure Name Priority Date/Time Associated Diagnosis Comments ECHOCARDIOGRAM (TTE) COMPREHENSIVE (CONTRAST PRN) Routine 07/26/2025 1:42 PM EDT GENERAL PROCEDURE Routine 07/26/2025 12: 09 PM EDT BASIC METABOLIC PANEL Routine 07/26/2025 10:11 AM EDT COMPLETE BLOOD COUNT, WITHOUT DIFFERENTIAL Routine 07/26/2025 10:11 AM EDT POCT GLUCOSE, FINGERSTICK (CHARGE) Routine 07/26/2025 8:08 AM EDT POCT GLUCOSE, FINGERSTICK (CHARGE) Routine 07/26/2025 2:01 AM EDT VANCOMYCIN LEVEL-RANDOM Timed 07/25/20 9:23 PM EDT POCT GLUCOSE, FINGERSTICK (CHARGE) Routine 07/25/2025 8:31 PM EDT POCT GLUCOSE, FINGERSTICK (CHARGE) Routine 07/25/2025 4:35 PM EDT POCT GLUCOSE, FINGERSTICK (CHARGE) Routine 07/25/2025 11:51 AM EDT POCT GLUCOSE, FINGERSTICK (CHARGE) Routine 07/25/2025 8:49 AM EDT ALBUMIN Routine 07/25/2025 6:41 AM EDT PHOSPHORUS Routine 07/25/2025 6:41 AM EDT MAGNESIUM Routine 07/25/2025 6:41 AM EDT BASIC METABOLIC PANEL Routine 07/25/2025 6:41 AM EDT COMPLETE BLOOD COUNT, WITHOUT DIFFERENTIAL Routine 07/25/2025 6:41 AM EDT POCT GLUCOSE, FINGERSTICK (CHARGE) Routine 07/24/2025 10:20 PM EDT VANCOMYCIN LEVEL-RANDOM Timed 07/24/20 7:28 PM EDT POCT GLUCOSE, FINGERSTICK (CHARGE) Routine 07/24/2025 6:00 PM EDT POCT GLUCOSE, FINGERSTICK (CHARGE) Routine 07/24/2025 5:29 PM EDT POCT GLUCOSE, FINGERSTICK (CHARGE) Routine 07/24/2025 1:28 PM EDT CALCIUM, TOTAL Routine 07/24/2025 12:57 PM EDT HEMOGLOBIN AND HEMATOCRIT Routine 07/24/2025 12:57 PM EDT ALBUMIN Routine 07/24/2025 6:25 AM EDT PHOSPHORUS Routine 07/24/2025 6:25 AM EDT MAGNESIUM Routine 07/24/2025 6:25 AM EDT BASIC METABOLIC PANEL Routine 07/24/2025 6:25 AM EDT COMPLETE BLOOD COUNT, WITHOUT DIFFERENTIAL Routine 07/24/2025 6:25 AM EDT VANCOMYCIN LEVEL-RANDOM Timed 07/23/20 6:15 PM EDT HIGH SENSITIVITY TROPONIN T CARD 07/23/2025 12:31 PM EDT HIGH SENSITIVITY TROPONIN T CARD 07/23/2025 11:15 AM EDT MAGNESIUM Routine 07/23/2025 4:58 AM EDT PHOSPHORUS Routine 07/23/2025 4:58 AM EDT COMPLETE BLOOD COUNT, WITHOUT DIFFERENTIAL Routine 07/23/2025 4:58 AM EDT BASIC METABOLIC PANEL Routine 07/23/2025 4:58 AM EDT HIGH SENSITIVITY TROPONIN T Routine 07/22/2025 9:01 PM EDT MAGNESIUM Routine 07/22/2025 9:01 PM EDT ECG 12-LEAD STAT 07/22/2025 8:35 PM EDT VANCOMYCIN LEVEL-RANDOM Timed 07/22/20 2:52 PM EDT ECG 12-LEAD STAT 07/22/2025 1:00 PM EDT PHOSPHORUS Routine 07/21/2025 11:55 PM EDT MAGNESIUM Routine 07/21/2025 11:55 PM EDT COMPLETE BLOOD COUNT, WITHOUT DIFFERENTIAL Routine 07/21/2025 11:55 PM EDT BASIC METABOLIC PANEL Routine 07/21/2025 11:55 PM EDT VANCOMYCIN LEVEL-RANDOM Timed 07/21/20 11:48 AM EDT POCT GLUCOSE, FINGERSTICK (CHARGE) Routine 07/21/2025 11:47 AM EDT POCT GLUCOSE, FINGERSTICK (CHARGE) Routine 07/21/2025 7:31 AM EDT POCT GLUCOSE, FINGERSTICK (CHARGE) Routine 07/21/2025 4:00 AM EDT POCT GLUCOSE, FINGERSTICK (CHARGE) Routine 07/21/2025 2:30 AM EDT COMPLETE BLOOD COUNT, WITHOUT DIFFERENTIAL Routine 07/21/2025 12:20 AM EDT BASIC METABOLIC PANEL Routine 07/21/2025 12:20 AM EDT MAGNESIUM Routine 07/21/2025 12:20 AM EDT PHOSPHORUS Routine 07/21/2025 12:20 AM EDT POCT GLUCOSE, FINGERSTICK (CHARGE) Routine 07/20/2025 11:56 PM EDT POCT GLUCOSE, FINGERSTICK (CHARGE) Routine 07/20/2025 7:30 PM EDT POCT GLUCOSE, FINGERSTICK (CHARGE) Routine 07/20/2025 3:30 PM EDT POCT GLUCOSE, FINGERSTICK (CHARGE) Routine 07/20/2025 11:29 AM EDT EXTUBATION Routine 07/20/2025 11:16 AM EDT HIGH SENSITIVITY TROPONIN T CARD 07/20/2025 8:00 AM EDT FOLATE LEVEL Routine 07/20/2025 8:00 AM EDT HEMOGLOBIN AND HEMATOCRIT Routine 07/20/2025 8:00 AM EDT POCT GLUCOSE, FINGERSTICK (CHARGE) Routine 07/20/2025 7:25 AM EDT POCT GLUCOSE, FINGERSTICK (CHARGE) Routine 07/20/2025 3:50 AM EDT FOLATE LEVEL Routine 07/20/2025 2:37 AM EDT PHOSPHORUS Routine 07/20/2025 2:37 AM EDT MAGNESIUM Routine 07/20/2025 2:37 AM EDT COMPLETE BLOOD COUNT, WITHOUT DIFFERENTIAL Routine 07/20/2025 2:37 AM EDT BASIC METABOLIC PANEL Routine 07/20/2025 2:37 AM EDT HEMOGLOBIN A1C WITH ESTIMATED AVERAGE GLUCOSE Routine 07/20/2025 2:37 AM EDT URINALYSIS WITH REFLEX TO MICROSCOPIC Routine 07/20/2025 12:15 AM EDT POCT GLUCOSE, FINGERSTICK (CHARGE) Routine 07/19/2025 11:51 PM EDT VITAMIN B12 Timed 07/19/2025 10:13 PM EDT PHOSPHORUS Timed 07/19/2025 10:13 PM EDT MAGNESIUM Timed 07/19/2025 10:13 PM EDT HIGH SENSITIVITY TROPONIN T Timed 07/19/2025 10:13 PM EDT IRON AND TOTAL IRON BINDING CAPACITY Timed 07/19/2025 10:13 PM EDT FERRITIN Timed 07/19/2025 10:13 PM EDT VANCOMYCIN LEVEL-RANDOM Timed 07/19/20 10:13 PM EDT BLOOD CULTURE (HOSP LAB) Routine 07/19/2025 9:26 PM EDT ECG 12-LEAD STAT 07/19/2025 9:25 PM EDT TYPE AND SCREEN Routine 07/19/2025 9:20 PM EDT BLOOD CULTURE (HOSP LAB) Routine 07/19/2025 9:16 PM EDT XR CHEST 1 VIEW-PORTABLE STAT 07/19/2025 9:14 PM EDT ABO CONFIRMATION Routine 07/19/2025 9:04 PM EDT TRIGLYCERIDES Routine 07/19/2025 9:04 PM EDT LACTATE DEHYDROGENASE (LDH) Routine 07/19/2025 9:04 PM EDT HEPATIC FUNCTION PANEL Routine 9:04 PM EDT COMPLETE BLOOD COUNT, WITH DIFFERENTIAL Routine 07/19/2025 9:04 PM EDT BASIC METABOLIC PANEL Routine 07/19/2025 9:04 PM EDT PARTIAL THROMBOPLASTIN TIME (PTT) Routine 07/19/2025 9:04 PM EDT PROTIME-INR Routine 07/19/2025 9:04 PM EDT HIGH SENSITIVITY D-DIMER Routine 07/19/2025 9:04 PM EDT FIBRINOGEN LEVEL Routine 07/19/2025 9:04 PM EDT RED BLOOD CELL MORPHOLOGY Routine 07/19/2025 9:04 PM EDT RETICULOCYTE WITH INDEX Routine 07/19/20 9:04 PM EDT HAPTOGLOBIN Routine 07/19/2025 9:04 PM EDT BLOOD GAS WITH COOXIMETRY, VENOUS Routine 07/19/2025 9:04 PM EDT LACTIC ACID, PLASMA Routine 07/19/2025 8 :51 PM EDT POCT GLUCOSE, FINGERSTICK (CHARGE) Routine 07/19/2025 8:42 PM EDT ECG 12-LEAD Routine 07/19/2025 8:32 PM EDT CR ABDOMEN ARCHIVE FOR REFERENCE ONLY Routine 07/19/2025 3:45 PM EDT CR CHEST ARCHIVE FOR REFERENCE ONLY Routine 07/19/2025 3:[address] ABDOMEN ARCHIVE FOR REFERENCE ONLY Routine 07/19/2025 3:[address] ABDOMEN ARCHIVE FOR REFERENCE ONLY Routine 07/19/2025 3:[address] ABDOMEN ARCHIVE FOR REFERENCE ONLY Routine 07/19/2025 3:[address] CHEST ARCHIVE FOR REFERENCE ONLY Routine 07/19/2025 3:44 PM EDT CR ABDOMEN ARCHIVE FOR REFERENCE ONLY Routine 07/19/2025 3:[address] CHEST ARCHIVE FOR REFERENCE ONLY Routine 07/19/2025 2:59 PM EDT from Last 3 Months Results * ECHOCARDIOGRAM COMPREHENSIVE WITH CONTRAST (07/26/2025 1:42 PM EDT) IVS Mean (F:0.6-0.9, M:0.6-1.0) 1.2 cm IVS (F:0.6-0.9, M:0.6-1.0) 1.2 cm LVIDD Mean (F:3.8-5.2, M:4.2-5.8) 4.2 cm LVIDD (F:3.8-5.2, M:4.2-5.8) 4.2 cm LVIDS (F:2.2-3.5, M:2.5-4.0) 2.7 cm LVIDS (F:2.2-3.5, M:2.5-4.0) 2.7 cm LVOT diameter mean 2.0 cm LVOT diameter 2.0 cm PW Mean (F:0.6-0.9, M:0.6-1.0) 1.0 cm PW (F:0.6-0.9, M:0.6-1.0) 1.0 cm LV Diastolic Volume Mean 94.8 mL LV Diastolic Volume 95 mL LV Systolic Volume Mean 27.2 mL LV Systolic Volume 27 mL LVOT mn grad mean 2.1 mmHg LVOT mn grad 2.1 mmHg LVOT peak caitie mean 0.9 m/s LVOT peak caitie 0.9 m/s LVOT VTI MEAN 20.0 cm LVOT VTI 20.0 cm RVID d Mean 3.6 cm RVID d 3.6 cm LA volume Mean 77.7 mL LA volume 77.7 mL RA area Mean 14.8 cm2 RA area 14.8 cm2 RA 2D Volume 42.5 mL AV mean gradient mean 5.8 mmHg AV mean gradient 5.8 mmHg Ao peak caitie mean 1.6 m/s Ao peak caitie 1.6 m/s Ao VTI Mean 28.4 cm Ao VTI 28.4 cm MV Peak A-Wave Mean 87.4 cm/s MV Peak A-Wave 87.4 cm/s E wave decelartion time mean 191 ms E wave decelartion time 191 ms MV Peak E-Wave Mean 61.6 cm/s MV Peak E-Wave 61.6 cm/s MV E' Lateral Velocity Mean 9.31 cm/s MV E' Lateral Velocity 9.31 cm/s MV E' Septal Velocity Mean 6.84 cm/s MV E' Septal Velocity 6.84 cm/s Tapse Mean 2.6 cm Tapse 2.6 cm Sinuses of Valsalva Mean 3.7 cm Sinuses of Valsalva 3.7 cm IVC Expiration Diameter Mean 1.3 cm IVC Expiration Diameter 1.3 cm IVC Inspiration Diameter Mean 0.9 cm IVC Inspiration Diameter 0.9 cm Heart Rate 80 bpm BP Systolic 122 mmHg BP Diastolic 61 mmHg Height 67.00 inches Weight 198.00 lbs LV Mass Index (F:43-95, M:49-115) 78.0 g/m2 LA Volume Index (16-34) 38.6 mL/m2 LV Diastolic Volume Index (F:29-61, M:35-75) 47.2 mL/m2 LV Systolic Volume Index (F:8-24, M:11-31) 13.4 mL/m2 E/E' ratio 6.62 AV peak gradient 10.2 mmHg LVOT stroke volume 63 mL LVOT area 3.1 cm2 E/A ratio 0.70 AV LVOT peak gradient 3.2 mmHg Dimensionless Index 0.70 SVI 30 mL/m2 AV area by cont VTI 2.2 cm2 Sinuses of Valsalva Index 1.8 cm/m2 Valve area - Index 1.1 cm2/m2 LV mass 157.1 g Guaman BP EF (55-75) 72 % E/E' Average 7.8 IVCPERCENTCOLLAPSE 0.31 % E/E' Septal 9.0 E/E' Lateral 6.6 LVOT SI 31.19 mL/m2 LV RWT 0.48 Left Ventricular Cardiac Index 2.5 L/min/m2 Left Ventricular Cardiac Output 5.0 L/min BSA 2.01 m2 LA Volume Index 21.1 mL/m2 Est. RA pres 8 mmHg Anatomical Region Laterality Modality Heart Ultrasound Narrative 07/26/2025 4:55 PM EDT Left ventricular systolic function is hyperdynamic. The quantitative EF by 2D Guaman biplane is 72%. Right ventricular systolic function is normal. There is mild aortic regurgitation. There is no previous study for comparison in our system. Technical Details Definity contrast was used during the study. Overall the study quality was fair. The study was technically difficult due to patient's clinical status and body habitus. Left Ventricle The left ventricle is normal in size. Concentric remodeling of the left ventricle is present. Left ventricular systolic function is hyperdynamic. The quantitative EF by 2D Guaman biplane is 72%. No wall motion abnormalities are present. There is abnormal relaxation, with normal left atrial filling pressure. Right Ventricle The right ventricle is normal in size. Right ventricular systolic function is normal. Left Atrium The left atrial cavity is mildly dilated. Right Atrium Right atrial size is normal. Based on IVC diameter and collapse, right atrial pressure is estimated to be moderately elevated (8 mmHg). Mitral Valve The mitral valve is structurally normal. There is mild mitral annular calcification. There is trace mitral regurgitation. Tricuspid Valve The tricuspid valve is structurally normal. There is no tricuspid regurgitation. The absence of sufficient tricuspid regurgitation precludes estimation of right ventricular systolic pressure. Aortic Valve The aortic valve leaflets are mildly calcified. There is mild aortic regurgitation. There is no aortic valve stenosis. Pulmonic Valve The pulmonic valve was not well visualized. Ascending Aorta The aortic root dimension is normal. Pericardium Echogenic material is seen in the anterior pericardial space, consistent with a fat pad. There is no pericardial effusion. Prior Study There is no previous study for comparison in our system. us Jack Tamez MD CV ECHO ORDERABLES Ju perez Result * PICC Line Insertion (07/26/2025 12:09 PM EDT) Yvrose Fernandez, RN - 07/26/2025 12:09 PM EDT Yvrose Perez RN 07/26/2025 12:19 PM PICC Line Insertion Date/Time: 07/26/2025 12:09 PM Performed by: Yvrose Perez RN Authorized by: Emeka Hanson MD Consent: Verbal consent obtained. Written consent obtained Risks and benefits: risks, benefits and alternatives were discussed Consent given by: patient Patient understanding: patient states understanding of the procedure being performed Patient consent: the patient's understanding of the procedure matches consent given Procedure consent: procedure consent matches procedure scheduled Relevant documents: relevant documents present and verified Test results: test results not available Site marked: the operative site was marked Imaging studies: imaging studies available Required items: required blood products, implants, devices, and special equipment available Patient identity confirmed: verbally with patient, arm band and hospital-assigned identification number Time out: Immediately prior to procedure a time out was called to verify the correct patient, procedure, equipment, underwriting support specialist and site/side marked as required. Preparation: Patient was prepped and draped in the usual sterile fashion. Local anesthesia used: yes Anesthesia: local infiltration Anesthesia: Local anesthesia used: yes Local Anesthetic: lidocaine 1% without epinephrine Anesthetic total: 3 mL Sedation: Patient sedated: no Patient tolerance: patient tolerated the procedure well with no immediate complications us Emeka Hanson MD PROCEDURE/MINOR SURGICA L ORDERABLES Final Result * (ABNORMAL) Complete Blood Count WITHOUT Differential - STAT (07/26/2025 10:11 AM EDT) Only the most recent of7 resultswithin the time period is included. White Blood Cell Count 4.4 4.0 - 11.0 Thou/uL 07/26/2025 10:48 AM [facility] Platelet Count 283 150 - 450 Thou/uL 07/26/2025 10:48 AM [facility] Hemoglobin 8.3(L) 13.0 - 17.7 g/dL 07/26/2025 10:48 AM [facility] Hematocrit 24.6(L) 39.0 - 54.0 % 07/26/2025 10:48 AM [facility] Red Blood Cell Count 2.56(L) 4.50 - 6.20 Mil/uL 07/26/2025 10:48 AM [facility] MCV 96 80 - 100 fL 07/26/2025 10:48 AM [facility] MCH 32.4(H) 27.0 - 31.0 pg 07/26/2025 10:48 AM [facility] MCHC 33.7 30.0 - 36.0 g/dL 07/26/2025 10:48 AM [facility] RDW 15.9(H) 11.5 - 14.5 % 07/26/2025 10:48 AM [facility] MPV 9.9 7.5 - 12.5 fL 07/26/2025 10:48 AM [facility] Blood Blood specimen / Unknown 07/26/2025 10:11 AM EDT 07/26/2025 10:32 AM EDT Emeka Hanson MD LAB BLOOD ORDERABLES [place] [address], [address] [address] * (ABNORMAL) Basic Metabolic Panel (STAT) (07/26/2025 10:11 AM EDT) Only the most recent of8 resultswithin the time period is included. Glucose 114(H) 65 - 99 mg/dL 07/26/2025 11:15 AM [facility] Comment:Fasting: <100 mg/dL, Non-Fasting: <200 mg/dL (ADA 2005) Blood Urea Nitrogen (BUN) 14 8 - 21 mg/dL 07/26/2025 11:15 AM [facility] Creatinine 1.3 0.5 - 1.3 mg/dL 07/26/2025 11:15 AM [facility] eGFR 56(L) >59 07/26/2025 11:15 AM [facility] Comment:CKD-EPI (2020) in mL /min/1.73 sq meters. Sodium 136 136 - 145 mmol/L 07/26/2025 11:15 AM [facility] Potassium 4.2 3.4 - 5.3 mmol/L 07/26/2025 11:15 AM EDT [facility] Chloride 105 98 - 107 mmol/L 07/26/2025 11:15 AM EDT [facility] CO2 25 22 - 33 mmol/L 07/26/2025 11:15 AM EDT [facility] Anion Gap 6(L) 7 - 17 07/26/2025 11:15 AM EDT [facility] Calcium 7.1(L) 8.7 - 10.5 mg/dL 07/26/2025 11:15 AM EDT [facility] BUN/Creatinine Ratio 11 10.0 - 25.0 Ratio 07/26/2025 11:15 AM EDT [facility] Blood Blood specimen / Unknown 07/26/2025 10:11 AM EDT 07/26/2025 10:32 AM EDT Emeka Hanson MD LAB BLOOD ORDERABLES Fi nal Result Performing Organization Address [facility]/[place] [address], [place] [address] * (ABNORMAL) POCT Glucose, Fingerstick (07/26/2025 8:08 AM EDT) Only the most recent of22 resultswithin the time period is included. Pathologist [facility] [place] POC Glucose 105(H) 65 - 99 mg/dL 07/27/2025 9:04 AM EDT Blood specimen / Unknown 07/26/2025 8:08 AM EDT 07/27/2025 9:04 AM EDT Darian Pollard MD POINT OF CARE TEST ORDERABLES Fi nal Result HOSPITAL LAB See Below * Vancomycin Level, Random (07/25/2025 9:23 PM EDT) Only the most recent of6 resultswithin the time period is included. Vancomycin, Random 19 mg/L 07/25/2025 10:25 PM EDT [facility] Comment:No reference range e stablished for random levels. Time of Last Dose Information not given 07/25/2025 1:01 PM EDT [facility] Blood Blood specimen / Unknown 07/25/2025 9:23 PM EDT 07/25/2025 9:41 PM EDT us Jack Tamez MD LAB BLOOD ORDERABLES Fi nal Result Performing Organization Address [facility] Co de Phone Number [address] [address], [address] [address] * Phosphorus (07/25/2025 6:41 AM EDT) Only the most recent of7 resultswithin the time period is included. Phosphorus 2.7 2.7 - 4.5 mg/dL 07/25/2025 8:56 AM EDT [facility] Blood Blood specimen / Unknown 07/25/2025 6:41 AM EDT 07/25/2025 7:32 AM EDT Jack Tamez MD LAB BLOOD ORDERABLES Fi nal Result Performing Organization Address [facility] Co de Phone Number [address] [address], [address] [address] * Magnesium (07/25/2025 6:41 AM EDT) Only the most recent of8 resultswithin the time period is included. Magnesium 1.6 1.6 - 2.7 mg/dL 07/25/2025 8:56 AM EDT [facility] Blood Blood specimen / Unknown 07/25/2025 6:41 AM EDT 07/25/2025 7:32 AM EDT us Jack Tamez MD LAB BLOOD ORDERABLES Fi nal Result Performing Organization Address City/[facility]/ZIP Co de Phone Number [address] [address], [address] [address] * (ABNORMAL) ALBUMIN (07/25/2025 6:41 AM EDT) Only the most recent of2 resultswithin the time period is included. Albumin 2.1(L) 3.4 - 4.8 g/dL 07/25/2025 10:43 AM EDT [facility] 07/25/2025 6:41 AM EDT 07/25/2025 7:32 AM EDT us Jack Tamez MD LAB BLOOD ORDERABLES Fi nal Result Performing Organization Address [facility] [place] [address], [address] [address] * (ABNORMAL) Hemoglobin and Hematocrit (07/24/2025 12:57 PM EDT) Only the most recent of2 resultswithin the time period is included. Hematocrit 23.1(L) 39.0 - 54.0 % 07/24/2025 1:27 PM EDT [facility] Hemoglobin 7.7(L) 13.0 - 17.7 g/dL 07/24/2025 1:27 PM EDT [facility] Blood Blood specimen / Unknown 07/24/2025 12:57 PM EDT 07/24/2025 1:17 PM EDT us Jack Tamez MD LAB BLOOD ORDERABLES Fi nal Result Performing Organization Address City/[facility] Co de Phone Number [address] [address], [address] [address] * (ABNORMAL) Calcium, Total (07/24/2025 12:57 PM EDT) Calcium 7.2(L) 8.7 - 10.5 mg/dL 07/24/2025 1:42 PM EDT [facility] Blood Blood specimen / Unknown 07/24/2025 12:57 PM EDT 07/24/2025 1:17 PM EDT us Jack Tamez MD LAB BLOOD ORDERABLES Fi nal Result Performing Organization Address [facility] Co de Phone Number [address] [address], [address] [address] * (ABNORMAL) High Sensitivity Troponin T (Once) (07/23/2025 12:31 PM EDT) Only the most recent of5 resultswithin the time period is included. [facility] High Sensitivity Troponin T 30(H) <23 ng/L 07/23/2025 1:16 PM EDT [facility] Delta (Change) NO CHANGE <3 07/23/2025 1:16 PM EDT [facility] Blood Blood specimen / Unknown 07/23/2025 12:31 PM EDT 07/23/2025 12:43 PM EDT us Jack Tamez MD LAB BLOOD ORDERABLES Fi nal Result Performing Organization Address [facility] Co de Phone Number [address] [address], [address] [address] * ECG 12 lead (STAT) (07/22/2025 8:35 PM EDT) Only the most recent of4 resultswithin the time period is included. [facility] Ventricular rate 98 BPM EKG [facility] Atrial rate 98 BPM EKG [facility] P-R interval 160 ms EKG [facility] QRS duration 86 ms EKG [facility] Q-T interval 392 ms EKG [facility] QTC calculation (Bazett) 501 ms EKG [facility] P axis 61 degrees EKG [facility] R axis 50 degrees EKG [facility] T axis -24 degrees EKG [facility] 07/22/2025 8:35 PM EDT Narrative EKG [facility] - 07/22/2025 8:47 PM EDT Sinus rhythm with occasional Premature ventricular complexes Nonspecific ST abnormality Abnormal QRS-T angle, consider primary T wave abnormality Prolonged QT Abnormal ECG When compared with ECG of 22-Jul-2025 13:00, No significant change was found Confirmed by MD Kaplan Kenneth ([id number]) on 07/22/2025 8:47:19 PM Procedure Note Sg Kaplan MD - 07/22/2025 Sinus rhythm with occasional Premature ventricular complexes Nonspecific ST abnormality Abnormal QRS-T angle, consider primary T wave abnormality Prolonged QT Abnormal ECG When compared with ECG of 22-Jul-2025 13:00, No significant change was found Confirmed by MD Kaplan Kenneth ([id number]) on 07/22/2025 8:47:19 PM us Germaine Williamson APRN ECG ORDERABLES Final Res ult Performing Organization Address [facility] Co de Phone Number EKG [facility] * (ABNORMAL) Folate Level (07/20/2025 8:00 AM EDT) Only the most recent of2 resultswithin the time period is included. Folate, Serum 4.9(L) >7.2 ng/mL 07/20/2025 10:31 AM EDT [facility] Blood Blood specimen / Unknown 07/20/2025 8:00 AM EDT 07/20/2025 8:33 AM EDT Darian Pollard MD LAB BLOOD ORDERABLES Final Resul t Performing Organization Address [facility] [place] [address], [place] [id number] * (ABNORMAL) Hemoglobin A1c with Estimated Average Glucose (Early AM) (07/20/2025 2:37 AM EDT) Hemoglobin A1C 6.4(H) <5.7 % 07/20/2025 4:24 AM EDT [facility] Comment: A1c% Interpretation 5.7 - 6.0 Increase risk of diabetes 6.1 - 6.4 Higher risk of diabetes > or = 6.5 Consistent with diabetes Diabetes Care, 33(Supp 1):S1-S61, 2010 Estimated Average Glucose 137 mg/dL 07/20/2025 4:24 AM [facility] Blood Blood specimen / Unknown 07/20/2025 2:37 AM EDT 07/20/2025 3:30 AM EDT Darian Pollard MD LAB BLOOD ORDERABLES Final Resul t [address] [address], [address] [address] * (ABNORMAL) Urinalysis with Reflex to Microscopic (07/20/2025 12:15 AM EDT) Color Dark yellow 07/20/2025 2:29 AM [facility] Clarity Cloudy 07/20/2025 2:29 AM [facility] Specific [place] 1.020 1.005 - 1.030 07/20/2025 2:29 AM [facility] pH 6.0 5.0 - 8.0 07/20/2025 2:29 AM [facility] Leukocyte Esterase Trace(A) Negative 07/20/2025 2:29 AM [facility] Nitrite Negative Negative 07/20/2025 2:29 AM [facility] Protein 300(A) NEG^Negative mg/dL 07/20/2025 2:29 AM [facility] Glucose Negative Negative mg/dL 07/20/2025 2:29 AM [facility] Ketones 15(A) NEG^Negative mg/dL 07/20/2025 2:29 AM [facility] Blood Large(A) Negative 07/20/2025 2:29 AM [facility] Bilirubin Small(A) Negative 07/20/2025 2:29 AM [facility] RBC >25(H) 0 - 4 per hpf 07/20/2025 2:29 AM [facility] WBC >25(H) 0 - 4 per hpf 07/20/2025 2:29 AM [facility] Epithelial Cells 2 per hpf 07/20/2025 2:29 AM [facility] Casts >25(H) 0 - 4 per lpf 07/20/2025 2:29 AM EDT [facility] Comment:Casts are hyaline un less otherwise noted. Bacteria Present(A) Absent 07/20/2025 2:29 AM EDT [facility] Comment:Presence of bacteria does not necessarily indicate a UTI. Please correlate with degree of pyuria and presence of clinical symptoms for UTI. Hyaline Casts Present per lpf 07/20/2025 2:29 AM EDT [facility] Urine Urine specimen / Unknown 07/20/2025 12:15 AM EDT 07/20/2025 12:41 AM EDT us Darian Pollard MD URINE ORDERABLES Final Result Performing Organization Address [facility] [place] [address], [place] [address] * (ABNORMAL) Iron and Total Iron Binding Capacity (07/19/2025 10:13 PM EDT) Iron 21(L) 53 - 167 ug/dL 07/19/2025 11:59 PM EDT [facility] UIBC 77(L) 112 - 346 ug/dL 07/19/2025 11:59 PM EDT [facility] Total Iron Binding Capacity 98(L) 100 - 400 ug/dL 07/19/2025 11:59 PM EDT [facility] Iron Sat 21 20 - 50 % 07/19/2025 11:59 PM EDT [facility] 07/19/2025 10:1 3 PM EDT 07/19/2025 10:57 PM EDT us Darian Pollard MD LAB BLOOD ORDERABLES Final Resul t Performing Organization Address [facility] [place] [address], [address] [address] * (ABNORMAL) FERRITIN (07/19/2025 10:13 PM EDT) Ferritin 710(H) 30 - 400 ug/L 07/19/2025 11:59 PM EDT [facility] 07/19/2025 10:1 3 PM EDT 07/19/2025 10:57 PM EDT Darian Pollard MD LAB BLOOD ORDERABLES Final Resul t Performing Organization Address [facility] Co de Phone Number [address] [address], [address] [address] * (ABNORMAL) VITAMIN B12 (07/19/2025 10:13 PM EDT) Vitamin B12 1,380(H) 243 - 894 pg/mL 07/19/2025 11:59 PM EDT [facility] 07/19/2025 10:1 3 PM EDT 07/19/2025 10:57 PM EDT Darian Pollard MD LAB BLOOD ORDERABLES Final Resul t Performing Organization Address [facility] Co de Phone Number [address] [address], [address] [address] * Blood Culture #2 (07/19/2025 9:26 PM EDT) Only the most recent of2 resultswithin the time period is included. Culture Sterile after 5 days 07/25/2025 7:36 AM EDT [facility] Blood (Blood, Peripheral Venipuncture) 07/19/2025 9:26 PM EDT 07/19/2025 10:36 PM EDT Comment:Blood us Ashish Domingo MD LAB BLOOD ORDERABLES Final Res ult Performing Organization Address [facility] Co de Phone Number [facility] [address] [place] [address], [place] * Type and Screen (07/19/2025 9:20 PM EDT) ABO/Rh B POSITIVE 07/19/2025 10:46 PM EDT [facility] Antibody Screen NEGATIVE 07/19/2025 10:46 PM EDT [facility] Specimen Expiration 07/22/2025 07/19/2025 10:46 PM EDT [facility] Blood Bank Comment Second Sample needed for Blood Transfusion 07/19/2025 10:46 PM EDT [facility] Blood Blood specimen / Unknown 07/19/2025 9:20 PM EDT 07/19/2025 9:40 PM EDT Darian Pollard MD BLOOD BANK TEST ORDERABLES Final Result [address] [address], [address] [address] * XR Chest 1 view-Portable (07/19/2025 9:14 PM EDT) Anatomical Region Laterality Modality Chest Computed Radiogr aphy 07/19/2025 8:47 PM EDT Impressions 07/19/2025 10:05 PM EDT 1. Endotracheal tube terminates 5.7 cm above the steffanie. 2. Left IJ cordis catheter again projects over the junction of the left IJ and cephalic veins with similar kinking proximally. 3. Unchanged streaky bibasilar opacities. Interpreted by: Angelina Elder MD Storehouse Clerk I personally reviewed the images and the resident's preliminary report and AGREE with the report as it is now presented ([id number]). Narrative 07/19/2025 10:05 PM EDT EXAMINATION: XR CHEST CLINICAL INFORMATION: tube placement COMPARISON: Chest radiograph from same day TECHNIQUE: Frontal view of the chest was obtained. FINDINGS: Endotracheal tube terminates 5.7 cm above the steffanie. Left IJ central venous catheter sheath is again observed over the expected junction of the left IJ and left brachiocephalic vein, with similar kinking proximally. Lungs are hypoexpanded. Unchanged streaky bibasilar opacities. No focal consolidation. No pleural effusion or pneumothorax. Cardiomediastinal silhouette is similar to prior. No acute osseous findings. Procedure Note Ricardo Carter MD - 07/19/2025 EXAMINATION: XR CHEST CLINICAL INFORMATION: tube placement COMPARISON: Chest radiograph from same day TECHNIQUE: Frontal view of the chest was obtained. FINDINGS: Endotracheal tube terminates 5.7 cm above the steffanie. Left IJ central venous catheter sheath is again observed over the expected junction of the left IJ and left brachiocephalic vein, with similar kinking proximally. Lungs are hypoexpanded. Unchanged streaky bibasilar opacities. No focal consolidation. No pleural effusion or pneumothorax. Cardiomediastinal silhouette is similar to prior. No acute osseous findings. IMPRESSION: 1. Endotracheal tube terminates 5.7 cm above the steffanie. 2. Left IJ cordis catheter again projects over the junction of the left IJ and cephalic veins with similar kinking proximally. 3. Unchanged streaky bibasilar opacities. Interpreted by: Angelina Elder MD Storehouse Clerk I personally reviewed the images and the resident's preliminary report and AGREE with the report as it is now presented ([email or web address]). us Ashish Domingo MD IMG DIAGNOSTIC IMAGING ORDERAB LES Final Result * (ABNORMAL) Blood Gas with Cooximetry, Venous (07/19/2025 9:04 PM EDT) Respiratory Info VENT 60% 07/19/20 25 9:04 PM [facility] Venous Blood PH 7.36 7.33 - 7.43 07/19/2025 9:31 PM [facility] Venous pCO2 46 35 - 50 mmHG 07/19/2025 9:31 PM [facility] Venous pO2 65(H) 0 - 60 mmHG 07/19/2025 9:31 PM [facility] Venous Total CO2 27 23 - 29 mmol/L 07/19/2025 9:31 PM [facility] Base Excess 0.1 mmol/L 07/19/2025 9:31 PM [facility] Comment:Reference Range: Neg ative 2 to Positive 3 Hemogloblin, Total 9.0(L) 13.0 - 17.7 g/dL 07/19/2025 9:31 PM [facility] O2 Saturation, Venous 91.2 % 9:31 PM [facility] Carboxyhemoglobin 2.9(H) 0.0 - 2.0 % 07/19/2025 9:31 PM EDT [facility] Methemoglobin 0.7 0.4 - 1.5 % 07/19/2025 9:31 PM EDT [facility] Venous O2 Content 11.2 7.2 - 17.2 mL/dL 07/19/2025 9:31 PM EDT [facility] Blood Blood specimen / Unknown 07/19/2025 9:04 PM EDT 07/19/2025 9:18 PM EDT us Darian Pollard MD LAB BLOOD ORDERABLES Final Resul t Performing Organization Address [facility]/[place] [address], [place] [address] * ABO Confirmation (07/19/2025 9:04 PM EDT) ABO/Rh B POSITIVE 07/19/2025 10:47 PM EDT [facility] Blood Blood specimen / Unknown 07/19/2025 9:04 PM EDT 07/19/2025 9:52 PM EDT us Darian Pollard MD BLOOD BANK TEST ORDERABLES Final Result Performing Organization Address [facility] [place] [address], [place] [address] * (ABNORMAL) Reticulocyte with Index (07/19/2025 9:04 PM EDT) Reticulocyte Count 1.0 0.7 - 2.0 % 07/19/2025 10:45 PM EDT [facility] Reticulocyte, Absolute 25.8(L) 30.0 - 100.0 Thou/uL 07/19/2025 10:45 PM EDT [facility] Reticulocyte Index 0.6(L) 1.0 - 2.0 % 07/19/2025 10:45 PM EDT [facility] Retic Hemoglobin Content 34.80 28 - 35 pg 07/19/2025 10:45 PM EDT [facility] Immature Reticulocyte Fraction 9.1 2.3 - 15.9 % 07/19/2025 10:45 PM EDT [facility] Blood Blood specimen / Unknown 07/19/2025 9:04 PM EDT 07/19/2025 9:45 PM EDT us Darian Pollard MD LAB BLOOD ORDERABLES Final Resul t Performing Organization Address [facility] [place] [address], [place] [address] * Red Blood Cell Morphology (07/19/2025 9:04 PM EDT) Normochromic Present 07/19/2025 11:46 PM EDT [facility] Normocytic Present 07/19/2025 11:46 PM EDT [facility] Blood Blood specimen / Unknown 07/19/2025 9:04 PM EDT 07/19/2025 9:45 PM EDT us Darian Pollard MD LAB BLOOD ORDERABLES Final Resul t Performing Organization Address [facility] [place] [address], [place] [address] * (ABNORMAL) High Sensitivity D-Dimer (07/19/2025 9:04 PM EDT) High Sensitivity D-Dimer 664(H) <230 ng/mL DDU 07/19/2025 10:10 PM EDT [facility] Comment: The threshold for exclusion of venous thromboembolism (VTE) is 230 ng/mL DDU (D Dimer Units). The Normal Range for D-Dimer is <244 ng/mL DDU (D Dimer Units). Studies, however, indicate a higher threshold is more appropriate for patients >50 y. This threshold is calculated by multiplying age by 5. Example: The estimated age adjusted VTE threshold for a 60 year old is 60 x 5 = 300 ng/mL DDU. Note: 1 DDU = 2 FEU (Fibrinogen Equivalent Units) Blood Blood specimen / Unknown 07/19/2025 9:04 PM EDT 07/19/2025 9:45 PM EDT Darian Pollard MD LAB BLOOD ORDERABLES Final Resul t [address] [address], [address] [address] * (ABNORMAL) Complete Blood Count, with Differential (07/19/2025 9:04 PM EDT) White Blood Cell Count 7.9 4.0 - 11.0 Thou/uL 07/19[facility]2025 10:[facility] Count 64(L) 150 - 450 Thou/uL 07/19/2025 10:45 PM [facility] Comment:Results verified by smear review. Hemoglobin 8.7(L) 13.0 - 17.7 g/dL 07/19/2025 10:45 PM [facility] Hematocrit 25.7(L) 39.0 - 54.0 % 07/19/2025 10:45 PM [facility] Red Blood Cell Count 2.72(L) 4.50 - 6.20 Mil/uL 07/19/2025 10:45 PM [facility] MCV 95 80 - 100 fL 07/19/2025 10:45 PM [facility] MCH 32.0(H) 27.0 - 31.0 pg 07/19/2025 10:45 PM [facility] MCHC 33.9 30.0 - 36.0 g/dL 07/19/2025 10:45 PM [facility] RDW 15.7(H) 11.5 - 14.5 % 07/19/2025 10:45 PM [facility] MPV 10.6 7.5 - 12.5 fL 07/19/2025 10:45 PM [facility] Immature Platelet Fraction 3.5 1.2 - 8.6 % 07/19/2025 10:45 PM [facility] Neutrophils Auto 83.0 % 07/19/20 11:47 PM [facility] Lymphocytes Auto 9.0 % 07/19/20 11:47 PM EDT [facility] Monocytes Auto 4.0 % 07/19/2025 11:47 PM EDT [facility] Eosinophils Auto 2.0 % 07/19/20 11:47 PM EDT [facility] Immature Granulocytes 2.0 % 07/19/2025 11:47 PM EDT [facility] Abs Neutrophils Auto 6.55 2.00 - 7.50 Thou/uL 07/19/2025 11:47 PM EDT [facility] Abs Lymphocytes Auto 0.71(L) 1.50 - 4.50 Thou/uL 07/19/2025 11:47 PM EDT [facility] Abs Monocytes Auto 0.32 0.20 - 1.50 Thou/uL 07/19/2025 11:47 PM EDT [facility] Abs Eosinophils Auto 0.16 0.00 - 0.70 Thou/uL 07/19/2025 11:47 PM EDT [facility] Abs Immature Granulocytes 0.16(H) 0.00 - 0.10 Thou/uL 07/19/2025 11:47 PM EDT [facility] Blood specimen / Unknown 07/19/2025 9:04 PM EDT 07/19/2025 9:45 PM EDT us Darian Pollard MD LAB BLOOD [place]AB[place] [address], [place] [address] * Partial Thromboplastin Time (PTT) (07/19/2025 9:04 PM EDT) Anticoagulant NO ANTI COAGULANT MEDS 07/19/2025 9:05 PM EDT [facility] Partial Thromboplastin Time (PTT) 28 25 - 36 seconds 07/19/2025 10:10 PM EDT [facility] Blood Blood specimen / Unknown 07/19/2025 9:04 PM EDT 07/19/2025 9:45 PM EDT us Darian Pollard MD LAB BLOOD ORDERABLES Final Resul t Performing Organization Address [facility] Co de Phone Number [address] [address], [address] [address] * Protime-INR (AM) (07/19/2025 9:04 PM EDT) Pathologist [facility] [place] Anticoagulant OTHER AGENT OR UNKNOWN 07/19/2025 9:05 PM EDT [facility] Prothrombin Time (PT) 13.4 10.0 - 13.5 seconds 07/19/2025 10:10 PM EDT [facility] INR 1.2 07/19/2025 10:10 PM EDT [facility] Comment:INR Therapeutic Rang es: Standard dose anticoagulant 2.0 to 3.0, High dose anticoagulant 2.5-3.5. Blood Blood specimen / Unknown 07/19/2025 9:04 PM EDT 07/19/2025 9:45 PM EDT us Darian Pollard MD LAB BLOOD ORDERABLES Final Resul t Performing Organization Address [facility] Co de Phone Number [address] [address], [address] [address] * (ABNORMAL) FIBRINOGEN LEVEL (07/19/2025 9:04 PM EDT) Pathologist [facility] [place] Fibrinogen 526(H) 148 - 435 mg/dL 07/19/2025 10:10 PM EDT [facility] Blood Blood specimen / Unknown 07/19/2025 9:04 PM EDT 07/19/2025 9:45 PM EDT us Darian Pollard MD LAB BLOOD ORDERABLES Final Resul t Performing Organization Address [facility] Co de Phone Number [address] [address], [address] [address] * Triglycerides (07/19/2025 9:04 PM EDT) Pathologist [facility] [place] Triglycerides 149 <150 mg/dL 07/19/2025 10:28 PM EDT [facility] 07/19/2025 9:04 PM EDT 07/19/2025 9:45 PM EDT us Darian Pollard MD LAB BLOOD ORDERABLES Final Resul t Performing Organization Address [facility]/ZIP Co de Phone Number [address] [address], [address] [address] * LACTATE DEHYDROGENASE (LDH) (07/19/2025 9:04 PM EDT) Lactate Dehydrogenase (LDH) 203 120 - 260 U/L 07/19/2025 10:28 PM EDT [facility] 07/19/2025 9:04 PM EDT 07/19/2025 9:45 PM EDT us Darian Pollard MD LAB BLOOD ORDERABLES Final Resul t Performing Organization Address [facility] Co de Phone Number [address] [address], [address] [address] * HAPTOGLOBIN (07/19/2025 9:04 PM EDT) Haptoglobin 179 30 - 200 mg/dL 07/19/2025 10:28 PM EDT [facility] Blood Blood specimen / Unknown 07/19/2025 9:04 PM EDT 07/19/2025 9:45 PM EDT us Darian Pollard MD LAB BLOOD ORDERABLES Final Resul t Performing Organization Address [facility] Co de Phone Number [address] [address], [address] [address] * (ABNORMAL) HEPATIC FUNCTION PANEL (07/19/2025 9:04 PM EDT) Alkaline Phosphatase 59 45 - 128 U/L 07/19/2025 10:28 PM EDT [facility] Aspartate Aminotrans (AST) 21 10 - 55 U/L 07/19/2025 10:28 PM EDT [facility] Alanine Aminotrans (ALT) 44 10 - 55 U/L 07/19/2025 10:28 PM EDT [facility] Bilirubin, Total 1.0 0.2 - 1.0 mg/dL 07/19/2025 10:28 PM EDT [facility] Protein, Total 4.4(L) 6.3 - 8.3 g/dL 07/19/2025 10:28 PM EDT [facility] Albumin 2.2(L) 3.4 - 4.8 g/dL 07/19/2025 10:28 PM EDT [facility] Bilirubin, Direct 0.5(H) 0 - 0.2 mg/dL 07/19/2025 10:28 PM EDT [facility] Globulin 2.2 1.5 - 3.9 g/dL 07/19/2025 10:28 PM EDT [facility] Albumin/Globulin Ratio 1.0 1.0 - 3.0 Ratio 07/19/2025 10:28 PM EDT [facility] 07/19/2025 9:04 PM EDT 07/19/2025 9:45 PM EDT us Darian Pollard MD LAB BLOOD ORDERABLES Final Resul t Performing Organization Address [facility]/[place] [address], [place] [address] * Lactic Acid, Plasma (07/19/2025 8:51 PM EDT) Lactic Acid 0.9 0.5 - 1.9 mmol/L 07/19/2025 10:24 PM EDT [facility] Blood Blood specimen / Unknown 07/19/2025 8:51 PM EDT 07/19/2025 9:42 PM EDT us Ashish Domingo MD LAB BLOOD ORDERABLES Final Res ult Performing Organization Address [facility] [place] [address], [place] [address] * CR Abdomen Archive for Reference only (07/19/2025 3:45 PM EDT) Only the most recent of2 resultswithin the time period is included. Narrative [place] - 07/19/2025 3:45 PM EDT This study has been auto finalized and does not contain a result. us File Room Provider IMG DIGITIZE FILMS Final Resu lt Performing Organization Address [facility] de Phone Number [place] [phone] * CR Chest Archive for Reference only (07/19/2025 3:45 PM EDT) Narrative [place] - 07/19/2025 3:45 PM EDT This study has been auto finalized and does not contain a result. us File Room Provider IMG DIGITIZE FILMS Final Resu lt Performing Organization Address [facility] de Phone Number [place] [phone] * CT Abdomen Archive for Reference Only (07/19/2025 3:45 PM EDT) Only the most recent of3 resultswithin the time period is included. [facility] - 07/19/2025 3:45 PM EDT This study has been auto finalized and does not contain a result. us File Room Provider IMG DIGITIZE FILMS Final Resu lt Performing Organization Address [facility] de Phone Number [place] [phone] * CT Chest Archive for Reference Only (07/19/2025 3:44 PM EDT) Only the most recent of2 resultswithin the time period is included. Narrative [place] - 07/19/2025 3:44 PM EDT This study has been auto finalized and does not contain a result. us File Room Provider IMG DIGITIZE FILMS Final Resu lt Performing Organization Address [facility] de Phone Number [place] [phone] from Last 3 Months Insurance [employer] MEDICARE PART A & B Advance Directives Documents on File Type Date Recorded Patient Sports Administrator Expl anation Advance Directive-Scan 07/20/2025 DECLARATION AND DIRE CTIVE TO PHYSICIANS//DESIGNATION OF HEALTH CARE KNIFE EDGER * Full Code (Latest Code Status on File) Date Activated Date Inactivated Comments 07/19/2025 8:34 PM Healthcare Agents on File Name Relationship Healthcare Agent Relationship Communication David Cheney Healthcare payroll representative 1. Jessika [facility] Care Sports Administrator
--- OUTSIDE RECORDS SUMMARY | 2025-08-15 21:54 | XMS_ITS ---
Author Organization [facility] Care Team Providers Care Sustainability Coach Name Role Phone Naya Alvarez Unavailable Unavailable John Luevano Unavailable Unavailable Argentina Irvin Unavailable Unavailable Selina Fagan Unavailable Vitaliy Rojo Unavailable Unavailable Jeanette Nicolasta Unavailable Unavailrayo vázquez Valery, Natalie Unavailable Unavailable Kyle, Corina A Unavailable Unavailable MartinMelyssa ortiz Unavailable Unavailable Allergies and adverse reactions Code CodeSystem Substance Reaction Severity StartDate Concern Status Zetia Unknown 12/14/2018 active 68719 RXNORM Tetracycline Unknown 12/14/2018 active Solu-Medrol Unknown 12/14/2018 active 99214 RXNORM Simvastatin Unknown 12/14/2018 active Rocephin Nausea (code- 354426130, SNOMED CT) Mild 01/10/2022 active 33320 RXNORM Pravastatin Unknown 12/14/2018 active 7804 RXNORM Oxycodone Unknown 12/14/2018 active 7393 RXNORM Niacin Unknown 12/14/2018 active Invanz Skin reaction - finding (code- 468580553, SNOMED CT) Moderate 10/15/2019 active Cymbalta Unknown 12/14/[address] Benzodiazepines Shock due to anaphylaxis (code- 356236522, SNOMED CT) Moderate 09/29/2019 active Ampyra Unknown 12/14/2018 active Care Team Name Role Address Phone Organization Dates Naya Alvarez [address] [facility] [address], [place], [address], [facility] (Office): : [facility] 11/06/2020 - present John Luevano [address] [address], [place], [address], [facility] (Office): : : [facility] 11/06/2020 - present Argentina Irvin [address] [place] [address] 1, [place], [address], [facility] (Office): : [facility] 11/06/2020 - present Selina Fagan [address] [place] [address], [address], [place] (Office): : : [facility] 11/06/2020 - present Vitaliy Ham [address] [facility] [address], [place], [address], [facility] (Office): : : [facility] 11/06/2020 - present Jeanette Nicolas [address] [facility] [address], [place], [address], [facility] (Office): : : [facility] 11/06/2020 - present Natalie Rasmussen [address] [place], [address], [place] (Office): : [facility] 11/06/2020 - present Corina Wright [address] [facility] [address], [place], [address], [facility] (Office): : : [facility] 11/06/2020 - present Melyssa Martin [address] [place], [address], [facility] (Office): : [facility] 11/06/2020 - present Imaging Narrative Note Date [...] MASS AND LUMP, LEFT UPPER LIMBPrincipal Result County Judge: BONNIE MARCUM ([id number])Labor/Excavator: KUNAL GORDON ([facility])Switch Box Installer Labor/Excavator: AMRIK Wilson EncounterType Code CodeSystem Description Performer ServiceDe liveryLocation Date Ambulatory Encounter CPT Code = [id number] Sepsis [facility] Address: [address] [place] [address], [address] [place] [address], [facility]. 11/06 Ambulatory Encounter CPT Code = [id number] Multiple sclerosis [facility] Address: [address] [place] [address], [address] [place] [address], [facility]. 11/06 Ambulatory Encounter CPT Code = [id number] Septic shock [facility] Address: [address] [place] [address], [address] [place] [address], [facility]. 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 11/06 Ambulatory Encounter CPT Code = [id number] Sepsis caused by Pseudomonas [facility] Address: [address] [place] [address], [address] [place] [address], [facility]. 11/06 Ambulatory Encounter CPT Code = [id number] Type 2 diabetes mellitus [facility] Address: [address] [place] [address], [address] [place] [address], [facility]. 11/06 Ambulatory Encounter CPT Code = [id number] Lesion of oral mucosa [facility] Address: [address] [place] [address], [address] [place] [address], [facility]. 11/06 Ambulatory Encounter CPT Code = [id number] Polyneuropathy due to type 2 diabetes mellitus [facility] Address: [address] [place] [address], [address] [place] [address], [facility]. 11/06 Ambulatory Encounter CPT Code = [id number] Urinary tract infectious disease [facility] Address: [address] [place] [address], [address], [facility]. 11/06 Ambulatory Encounter CPT Code = [id number] Acute hypoxemic respiratory failure [facility] Address: [address] [place] [address], [address] [place] [address], [facility]. 11/06 Ambulatory Encounter CPT Code = [id number] Adult hypertrophic pyloric stenosis [facility] Address: [address] [place] [address], [address], [facility]. 11/06 Ambulatory Encounter CPT Code = [id number] Urinary tract infectious disease [facility] Address: [address] [place] [address], [address] [place] [address], [facility]. 11/06 Ambulatory Encounter CPT Code = [address] Acute kidney injury [facility] Address: [address] [place] [address], [address] [place] [address], [facility]. 11/06 Ambulatory Encounter CPT Code = [id number] Dementia [facility] Address: [address] [place] [address], [address] [place] [address], [facility]. 11/06 Ambulatory Encounter CPT Code = [address] Urinary tract infectious disease [facility] Address: [address] [place] [address], [address], [facility]. 11/06 Ambulatory Encounter CPT Code = [id number] Neurogenic urinary bladder [facility] Address: [address] [place] [address], [address], [facility]. 11/06 Ambulatory Encounter CPT Code = [id number] Chronic kidney disease stage 3 [facility] Address: [address] [place] [address], [address] [place] [address], [facility]. 11/06 Ambulatory Encounter CPT Code = [address] Acute cystitis [facility] Address: [address] [place] [address], [address], [facility]. 11/06 Ambulatory Encounter CPT Code = [address] Methicillin resistant Staphylococcus aureus infection [facility] Address: [address] [place] [address], [address] [place] [address], [facility]. 11/06 Ambulatory Encounter CPT Code = [address] Drug resistance [facility] Address: [address] [place] [address], [address], [facility]. 11/06 Ambulatory Encounter CPT Code = [address] Non-organic psychosis [facility] Address: [address] [place] [address], [address], [facility]. 11/06 Ambulatory Encounter CPT Code = [address] Acute kidney injury [facility] Address: [address] [place] [address], [address], [facility]. 11/06 Ambulatory Encounter CPT Code = 05850 Z16.21 ICD 10 RESISTANCE TO VANCOMYCIN [facility] Address: [address] [place] [address], [address], [facility]. 11/06 Ambulatory Encounter CPT Code = [id number] Metabolic encephalopathy [facility] Address: [address] [place] [address], [address], [facility]. 11/06 Ambulatory Encounter CPT Code = 26473 [id number] Chronic kidney disease [facility] Address: [address] [place] [address], [address], [facility]. 11/06 Ambulatory Encounter CPT Code = [id number] Pressure injury of sacral region of back stage II [facility] Address: [address] [place] [address], [address] [place] [address]. 11/06 Ambulatory Encounter CPT Code = [id number] Moderate recurrent major depression [facility] Address: [address] [place] [address], [address] [place] [address], [facility]. 11/06 Ambulatory Encounter CPT Code = [address]98 [address] Benign prostatic hyperplasia with outflow obstruction [facility] Address: [address] [place] [address], [address] [place] [address]. 11/06 Ambulatory Encounter CPT Code = [address] Silent myocardial ischemia [facility] Address: [address] [place] [address], [address] [place] [address], [facility]. 11/06 Ambulatory Encounter CPT Code = [address] Mood disorder due to a general medical condition [facility] Address: [address] [place] [address], [address] [place] [address]. 11/06 Ambulatory Encounter CPT Code = [address] Gastroesophage al reflux disease without esophagitis [facility] Address: [address] [place] [address], [address] [place] [address], [facility]. 11/06 Ambulatory Encounter CPT Code = [id number] Essential hypertension [facility] Address: [address] [place] [address], [address] [place] [address], [facility]. 11/06 Ambulatory Encounter CPT Code = [address] Acute vascular insufficiency of intestine [facility] Address: [address] [place] [address], [address] [place] [address], [facility]. 11/06 Ambulatory Encounter CPT Code = [id number] Chronic pain syndrome [facility] Address: [address] [place] [address], [address] [place] [address], [facility]. 11/06 Ambulatory Encounter CPT Code = [id number] Superficial mycosis Lynette Tarun [facility] Address: [address] [place] [address], [address], [facility]. 11/06 Ambulatory Encounter CPT Code = [address] Urinary tract infectious disease [facility] Address: [address] [place] [address], [address], [facility]. 11/06 Ambulatory Encounter CPT Code = [id number] COVID-19 [facility] Address: [address] [place] [address], [address], [facility]. 11/06 Ambulatory Encounter CPT Code = [id number] Pressure injury of sacral region of back stage II [facility] Address: [address] [place] [address], [address], [facility]. 11/06 Ambulatory Encounter CPT Code = [address] Oropharyngeal dysphagia [facility] Address: [address] [place] [address], [address], [facility]. 11/06 Ambulatory Encounter CPT Code = [address] Hereditary spastic paraplegia [facility] Address: [address] [place] [address], [address], [facility]. 11/06 Ambulatory Encounter CPT Code = [address] Insomnia [facility] Address: [address] [place] [address], [address], [facility]. 11/06 Ambulatory Encounter CPT Code = [address] Intestinal obstruction co-occurrent and due to decreased peristalsis [facility] Address: [address] [place] [address], [address], [facility]. 11/06 Ambulatory Encounter CPT Code = [id number] Polyp of colon [facility] Address: [address] [place] [address], [address], [facility]. 11/06 Ambulatory Encounter CPT Code = [id number] Hypokalemia [facility] Address: [address] [place] [address], [address], [facility]. 11/06 Ambulatory Encounter CPT Code = [address] Bullous pemphigoid [facility] Address: [address] [place] [address], [address] [place] [address], [facility]. 11/06 Ambulatory Encounter CPT Code = [id number] Fitting procedure [facility] Address: [address] [place] [address], [address], [facility]. 11/06 Ambulatory Encounter CPT Code = [address] Toxic encephalopathy [facility] Address: [address] [place] [address], [address], [facility]. 11/06 Ambulatory Encounter CPT Code = [address] Inflammatory dermatosis [facility] Address: [address] [place] [address], [address], [facility]. 11/06 Ambulatory Encounter CPT Code = [address] Congenital anomaly of skin [facility] Address: [address] [place] [address], [address], [facility]. 11/06 Ambulatory Encounter CPT Code = [address] Allergic rhinitis [facility] Address: [address] [place] [address], [address], [facility]. 11/06 Ambulatory Encounter CPT Code = [address] Polyneuropathy [facility] Address: [address] [place] [address], [address], [facility]. 11/06 Goals Section Goals Description Status Target Date Healing Goal: Skin Tear/Bruise will heal within the next 14 days Active 09/28/2025 Coco or healthcare decision m heidi shall participate in decisions regarding medical care and treatment x 90 days. Active 2024 Coco should maintain a positi ve mood, i.e. no episodes of tears or verbalization of sadness or anger 7/7 days per week through next review. Active [...] supported as he continues to reside at [facility] daily x 90 days. Active 09/28/2025 Coco [...] Code Name Recorded Time Value Entered By Chair/cdj-rm-kuysy transfer 08/15/2025 Not assessed [id number] Eating 08/15/2025 Independent [id number] Feeding or Eating 08/15/2025 Independent CWASHINGTO N11 Indicate the type of wheelchair or scooter used 08/15/2025 Independent KJVWQRLCJGQ07 Indicate the type of wheelchair or scooter used 08/15/2025 Manual wheelchair (physical object) [id number] Lower body dressing 08/15/2025 Not assessed CWASHING TON11 Lying to sitting on side of bed 08/15/2025 Not assessed NSCRYKJIHIC13 Oral hygiene 08/15/2025 Dependent MPUPSSCFRBE27 Personal hygiene 08/15/2025 Dependent CWASHINGTON 11 Putting on/taking off footwear 08/15/2025 Not assessed [id number] Roll left and right 08/15/2025 Not assessed CWASHING TON11 Shower/bathe self 08/15/2025 Dependent CWASHINGTO N11 Sit to lying 08/15/2025 Not assessed HISEKLXXAKU37 Sit to stand 08/15/2025 Not assessed TAVCYBZCGWA52 Toilet transfer 08/15/2025 Not assessed CWASHINGTON1 1 Toileting hygiene 08/15/2025 Dependent CWASHINGTO N11 Upper body dressing 08/15/2025 Dependent CWASHING TON11 Walk 10 feet 08/15/2025 Not assessed MFBJAISXYZO67 Walk 150 feet 08/15/2025 Independent [id number] Walk 50 feet 08/15/2025 Independent SKSNJPOWPEF66 Wheel 150 feet 08/15/2025 Independent BLIOJHUTOLD62 Wheel 50 feet with two turns 08/15/2025 Not assessed WBFYOESGWRL99 Immunizations Immunization Status Vaccine Details Vaccine Code CodeSystem Date Notes Pneumovax Dose 1 completed pneumococcal polysaccharide vaccine, 23 valent 33 CVX created date: 9 administe red date: 1 [place] [facility] TB 1 Step Mantoux (PPD) completed tuberculin skin test; purified protein derivative solution, intradermal lotNumber: [id number] expiry: 09/29/2020 Given 0.1 ml Left Forearm intradermally 96 CVX created date: 9 administe red date: 9 TB 2 Step Mantoux Skin Test completed tuberculin skin test; purified protein derivative solution, intradermal lotNumber: [id number] expiry: 10/30/2027 Mfg: SONOFI Given 0.1 ml Left Forearm intradermally Step 1 of Multi-step with next step required 96 CVX created date: 5 consent date: 5 administe red date: 4 TB 2 Step Mantoux Skin Test completed tuberculin skin test; purified protein derivative solution, intradermal lotNumber: [id number] expiry: 09/29/2020 Step 1 of Multi-step with next step required 96 CVX created date: 9 administe red date: 9 Pneumovax Dose 2 completed pneumococcal polysaccharide vaccine, 23 valent lotNumber: [id number] expiry: 05/30/2023 Given 0.5 ml Left Deltoid intramuscularly 33 CVX created date: 2 consent date: 2 administe red date: 2 PCV (Prevnar) 13 completed pneumococcal conjugate vaccine, 13 valent 133 CVX created date: 9 administe red date: 8 [place] [facility] Influenza (high dose) completed Influenza, high-dose, split virus, trivalent, injectable, preservative free Given 0.7 ml Left Deltoid intramuscularly 135 CVX created date: 2 consent date: 2 administe red date: 2 Influenza (vial) completed Influenza, split virus, trivalent, injectable, contains preservative lotNumber: [id number] expiry: 05/30/2022 Mfg: Fluzone HD Given 0.7 ml Left Deltoid intramuscularly 141 CVX created date: 1 consent date: 1 administe red date: 1 Educated by Lynette Mcneil RN on 08/19/2021 Influenza (vial) completed Influenza, split virus, trivalent, injectable, contains preservative 141 CVX created date: 9 administe red date: 9 Influenza (standard dose syringe) completed Influenza, Madin Lowell Canine Kidney, subunit, quadrivalent, injectable, preservative free Given 0.5 ml intramuscularly 171 CVX created date: 0 administe red date: 0 Resident received flu vaccine while in hospital Influenza (standard dose syringe) completed Influenza, Madin Yary Canine Kidney, subunit, quadrivalent, injectable, preservative free lotNumber: [id number] expiry: 05/24/2020 Mfg: Afluria Given 0.5 ml Right Deltoid intramuscularly 171 CVX created date: 9 consent date: 9 administe red date: 9 COVID-19 Vaccine Dose 1 completed SARS-COV-2 (COVID-19) vaccine, mRNA, spike protein, LNP, preservative free, 30 mcg/0.3mL dose lotNumber: [id number] expiry: 02/18/2021 Mfg: Pfizer Given 0.3 ml Left Deltoid intramuscularly 208 CVX created date: 1 consent date: 1 administe red date: 1 Educated by Ashlyn Paredes on 12/09/2020 [facility] COVID-19 Vaccine Dose 2 completed SARS-COV-2 (COVID-19) vaccine, mRNA, spike protein, LNP, preservative free, 30 mcg/0.3mL dose lotNumber: [id number] expiry: 04/30/2021 Mfg: Pfizer Given 0.3 ml Right Deltoid intramuscularly 208 CVX created date: 1 consent date: 1 administe red date: 1 Educated by Owen Velarde on 12/27/2020 Received dose 2 on 12/30/20 COVID-19 Vaccine Additional Dose/Booster completed unknown vaccine or immune globulin lotNumber: [id number] expiry: 07/17/2023 Mfg: pfizer Bivalent Given 0.3 ml Left Deltoid intramuscularly 999 CVX created date: 3 consent date: 3 administe red date: 3 COVID-19 Vaccine Additional Dose/Booster completed unknown vaccine or immune globulin lotNumber: [id number] expiry: 01/23/2023 Mfg: pfizer Bivalent booster Given 0.3 ml Right Deltoid intramuscularly 999 CVX created date: 2 consent date: 2 administe red date: 3 Consented on 09/09/2022. Positive covid prior to administering booster in August. COVID-19 Vaccine Additional Dose/Booster completed unknown vaccine or immune globulin lotNumber: [id number] expiry: 06/10/2022 Mfg: pfiser Given 0.3 ml Right Deltoid intramuscularly 999 CVX created date: 2 consent date: 2 administe red date: 2 Educated by Erin Moore on 04/04/2022 COVID-19 Vaccine Additional Dose/Booster completed unknown vaccine or immune globulin lotNumber: [id number] expiry: 10/31/2021 Mfg: Pfizer Given 0.3 ml Left Deltoid intramuscularly 999 CVX created date: 1 consent date: 1 administe red date: 1 PCV (Prevnar) 20 completed Pneumococcal conjugate vaccine 20-valent (PCV20), polysaccharide [id number] conjugate, adjuvant, preservative free lotNumber: [id number] expiry: 07/31/2024 Mfg: MePIN / [employer] Given 0.5 ml Right Deltoid intramuscularly 216 CVX created date: 3 consent date: 3 administe red date: 3 Influenza Fluzone High Dose 0.7ML dose (CVX 197) completed Influenza, high-dose, split virus, quadrivalent, injectable, preservative free lotNumber: [id number] expiry: 05/30/2024 Mfg: Mariano pasteur Given 0.7 ml Left Deltoid intramuscularly 197 CVX created date: 3 consent date: 3 administe red date: 3 [id number] Comirnaty (pfizer) COVID19 [id number] completed SARS-COV-2 (COVID-19) vaccine, mRNA, spike protein, LNP, preservative free, oanh-sucrose, 30 mcg/0.3 mL dose lotNumber: [id number] expiry: 12/31/2023 Mfg: Biontech Given 0.3 ml Left Deltoid intramuscularly 309 CVX created date: 3 consent date: 3 administe red date: 3 Influenza FLUAD Trivalent CVX 168 completed Influenza, adjuvanted, inactivated, trivalent, injectable, preservative free lotNumber: [id number] expiry: 04/20/2025 Given Left Deltoid intramuscularly 168 CVX created date: 4 consent date: 4 administe red date: 4 Educated by Kaylyn Garcia on 09/16/2024 SpikeVax (moderna) COVID19 [id number] completed SARS-COV-2 (COVID-19) vaccine, mRNA, spike protein, LNP, preservative free, 50 mcg/0.5 mL dose lotNumber: [id number] expiry: 06/30/2025 Mfg: Moderna Given Left Deltoid intramuscularly 312 CVX created date: 4 consent date: 4 administe red date: 4 Medications Section Medication Name Status Code CodeSystem Dose Route Frequency Admin Type Sig Text Start Date End Date Indication Insta-Gluco se Gel 77.4 % active 50681 22 RXNORM 1 dose Oral as needed PRN Give 1 dose by mouth as neede d for BG less than 70, Pt arous able consc ious and able to swall ow Hold all diabe tic medic ation s until provi lainey autho rizes resum ption . Remai n with pt. Keep pt.in bed/c hair for safet y. Repea t blood gluco se in 15 min. AND Give 1 dose by mouth as neede d for BG less than 70, Pt arous able consc ious and able to swall ow If repea t blood gluco se is below 70mg/ dl and pt is arous able, consc ious and able to swall ow. Avril nue to hold all diabe tic medic ation s until provi lainey autho rizes resum ption . Remai n with pt. Keep pt.in bed/c hair for safet y. 2021 - BG less than 70, Pt arousable conscious and able to swallow 39314 22 RXNORM 1 dose Oral as needed PRN Give 1 dose by mouth as neede d for BG less than 70, Pt arous able consc ious and able to swall ow Hold all diabe tic medic ation s until provi lainey autho rizes resum ption . Remai n with pt. Keep pt.in bed/c hair for safet y. Repea t blood gluco se in 15 min. AND Give 1 dose by mouth as neede d for BG less than 70, Pt arous able consc ious and able to swall ow If repea t blood gluco se is below 70mg/ dl and pt is arous able, consc ious and able to swall ow. Avril nue to hold all diabe tic medic ation s until provi lainey autho rizes resum ption . Remai n with pt. Keep pt.in bed/c hair for safet y. 2021 - BG less than 70, Pt arousable conscious and able to swallow Bisacodyl Rectal Suppository 10 MG aborted RXNORM 10 mg Rectal as needed PRN Inser t 10 mg recta lly as neede d for const ipati on daily is no BM 08/12 constipatio n CeraVe External Cream active n/a n/a Topica l every day and evening shift Routin e Apply to body topic ally every day and eveni ng shift for dry skin 2022 - dry skin Melatonin Oral Tablet 5 MG aborted 84062 2 RXNORM 5 mg Oral as needed PRN Give 5 mg by mouth every 24 hours as neede d for at HS 07/27 at HS Pepto-Bismo l Oral Suspension active 30 ml Oral as needed PRN Give 30 ml by mouth every 8 hours as neede d for Upset stoma ch/ Nause a 2022 - Upset stomach/ Nausea Folic Acid Tablet 1 MG aborted 95780 0 RXNORM 1 table t Oral one time a day Routin e Give 1 table t by mouth one time a day every Fri, Fri, Mona, Fri, Sat, Sun for Bullo us pemph igus 07/27 Bullous pemphigus Methotrexat e Tablet 2.5 MG active 22027 5 RXNORM 15 mg Oral one time a day Routin e Give 15 mg by mouth one time a day every Mon for skin monit or for adver se conse quenc es 2023 - skin Naloxone HCl Solution 0.4 MG/ML active 93433 29 RXNORM 0.4 mg/ml Intram uscula r as needed PRN Injec t 0.4 mg/ml intra muscu larly every 2 minut es as neede d for sign of opioi d overd ose- locat ed in med cart top drawe r Maybe repea aleja every two (2)to three (3)mi nutes for unres ponsi venes s or diffi culty breat marquis, until indiv idual is breat marquis (resp irato ry rate great er than 10)In itiat e emerg ency medic al respo nse omayra col (e.g. ,call 911)a nd trans radha to the hospi reyes 2023 - sign of opioid overdose- located in med cart top drawer TraMADol HCl Tablet 50 MG active 51716 3 RXNORM 50 mg Oral as needed PRN Give 50 mg by mouth every 23 hours as neede d for moder ate and sever e pain PRN at bedti mi for pain 2023 - moderate and severe pain Mucinex Oral Tablet Extended Release 12 Hour 600 MG active 10060 1 RXNORM 1 table t Oral as needed PRN Give 1 table t by mouth every 12 hours as neede d for cold sympt oms 2023 - cold symptoms Enulose Oral Solution 10 GM/15ML active 85510 0 RXNORM 30 ml Oral one time a day Routin e Give 30 ml by mouth one time a day for const ipati on. 2023 - constipatio n. amLODIPine Besylate Oral Tablet 10 MG active 63639 5 RXNORM 10 mg Oral one time a day Routin e Give 10 mg by mouth one time a day for HTN Hold for SBP< 90 2023 - HTN Gabapentin Capsule 300 MG active 84510 1 RXNORM 1 capsu le Oral three times a day Routin e Give 1 capsu le by mouth three times a day for Neuro pain 2023 - Neuro pain Ferrous Sulfate Tablet 325 (65 Fe) MG active 92620 5 RXNORM 1 table t Oral one time a day Routin e Give 1 table t by mouth one time a day for anemi a 2023 - anemia Admelog SoloStar Subcutaneou s Solution Pen-injecto r 100 UNIT/ML active 71 RXNORM n/a n/a Subcut aneous two times a day Routin e Injec t as per saurav ng scale : if 200 - 249 = 2 Units ; 250 - 299 = 4 Units ; 300 - 349 = 6 Units ; 350 - 399 = 8 Units Call MD if gluco se > 400, subcu taneo usly two times a day for DM 2023 - DM Insulin Glargine-yf gn Subcutaneou s Solution 100 UNIT/ML active 37688 76 RXNORM 3 unit Subcut aneous at bedtime Routin e Injec t 3 unit subcu taneo usly at bedti me for diabe jose 2023 - diabetes Cholecalcif roscoe Tablet 1000 UNIT active 2 RXNORM 1 table t Oral one time a day Routin e Give 1 table t by mouth one time a day for Vit D def 2023 - Vit D def MiraLax Powder active 31822 5 RXNORM 17 gram Oral in the morning Routin e Give 17 gram by mouth in the morni ng for const ipati on mix with 4-8 oz of fluid s 2023 - constipatio n Carvedilol Oral Tablet 6.25 MG aborted 1 RXNORM 6.25 mg Oral two times a day Routin e Give 6.25 mg by mouth two times a day for HTN Hold for SBP <90 & HR < 60 give with food 07/27 HTN Ascorbic Acid Oral Tablet aborted 500 mg Oral one time a day Routin e Give 500 mg by mouth one time a day for suppl ement 08/15 supplement Milk of Magnesia Suspension 400 MG/5ML active 06846 7 RXNORM 30 ml Oral as needed PRN Give 30 ml by mouth as neede d for Const ipati on give at bedti me if no BM in 3 days 2023 - Constipatio n Phytoplex Z-Guard Paste 57-17 % active 84886 54 RXNORM n/a n/a Topica l every day and evening shift Routin e Apply to masd to sacru m topic ally every day and eveni ng shift for MASD Apply as direc aleja. 2023 - MASD Rosuvastati n Calcium Tablet 10 MG active 20805 7 RXNORM 1 table t Oral at bedtime Routin e Give 1 table t by mouth at bedti me for lipid contr ol. 2023 - lipid control. TraZODone HCl Tablet 50 MG active 69678 7 RXNORM 1 table t Oral at bedtime Routin e Give 1 table t by mouth at bedti me for insom teo 2024 - insomnia Famotidine Oral Tablet 20 MG active 92193 3 RXNORM 1 table t Oral one time a day Routin e Give 1 table t by mouth one time a day for GERD 2024 - GERD BD Disp Needle Miscellaneo us active 1 unit Subcut aneous three times a day Routin e Injec t 1 unit subcu taneo usly three times a day for insul in admin 2024 - insulin admin Colace Oral Capsule 100 MG active 35102 56 RXNORM 2 capsu le Oral two times a day Routin e Give 2 capsu le by mouth two times a day for Const ipati on give with 8 oZ liqui d 2024 - Constipatio n Tylenol Oral Tablet 325 MG active 90689 7 RXNORM 2 table t Oral at bedtime Routin e Give 2 table t by mouth at bedti me for pain give with bedti me trama dol 2024 - pain Bacitracin External Ointment 500 UNIT/GM active 41652 10 RXNORM n/a n/a Topica l every day and evening shift Routin e Apply to Bilat eral feet topic ally every day and eveni ng shift for infec tion Pleas e send large tube. 2024 - infection Vancomycin HCl Intravenous Solution 500 MG/100[place] [address] 11 RXNORM 500 mg Intrav enous one time a day Routin e Use 500 mg intra venou sly one time a day for Bacte irma infec tion until 08/10 23:59 08/11 Bacteria infection amLODIPine Besylate Oral Tablet 10 MG aborted 45478 5 RXNORM 1 table t Oral one time a day Routin e Give 1 table t by mouth one time a day for HTN 07/27 HTN Chlorasepti c Mouth/Throa t Lozenge 6-10 MG active 48486 9 RXNORM 1 lozen ge Oral four times a day Routin e Give 1 lozen ge by mouth four times a day for sore throa t 2024 - sore throat Carvedilol Oral Tablet 12.5 MG active 2 RXNORM 12.5 mg Oral two times a day Routin e Give 12.5 mg by mouth two times a day for HTN 2024 - HTN Refresh Plus Ophthalmic Solution aborted 1 drop Ophtha lmic four times a day Routin e Insti ll 1 drop in both eyes four times a day for Dry eyes ! drop to each eye. 08/15 Dry eyes Rozerem Oral Tablet 8 MG aborted 64699 2 RXNORM 1 table t Oral at bedtime Routin e Give 1 table t by mouth at bedti me for Insom teo 07/27 Insomnia Simethicone Oral Tablet 80 MG aborted 1 table t Oral four times a day Routin e Give 1 table t by mouth four times a day for Gas 07/27 Gas predniSONE Oral Tablet 2.5 MG active 88656 6 RXNORM 1 table t Oral in the morning Routin e Give 1 table t by mouth in the morni ng for Aller gic condi tions Take it with break fast. 2024 - Allergic conditions Senna-Docus ate Sodium Oral Tablet 8.6-50 MG active 2 table t Oral at bedtime Routin e Give 2 table t by mouth at bedti me for Const ipati on. 2024 - Constipatio n. Folic Acid Oral Tablet 1 MG active 42485 0 RXNORM 1 table t Oral one time a day Routin e Give 1 table t by mouth one time a day for Suppl ement 2024 - Supplement Hydrocerin External Cream aborted n/a n/a Topica l two times a day Routin e Apply to Dry skin topic ally two times a day for Dry skin 07/29 Dry skin Multivitami n-Minerals Oral Tablet active 1 table t Oral one time a day Routin e Give 1 table t by mouth one time a day for suppl ement 2024 - supplement Simethicone Oral Tablet 80 MG active 1 table t Oral as needed PRN Give 1 table t by mouth every 6 hours as neede d for gas 2024 - gas Rozerem Oral Tablet 8 MG aborted 28384 2 RXNORM 1 table t Oral as needed PRN Give 1 table t by mouth every 23 hours as neede d for insom teo 08/12 insomnia Hydrocerin External Cream active n/a n/a Topica l two times a day Routin e Apply to Dry skin topic ally two times a day for Dry skin 2024 - Dry skin Ondansetron HCl Oral Tablet 4 MG active 2 RXNORM 1 table t Oral as needed PRN Give 1 table t by mouth every 4 hours as neede d for N/V 2024 - N/V Rozerem Oral Tablet 8 MG aborted 03915 2 RXNORM 1 table t Oral as needed PRN Give 1 table t by mouth every 23 hours as neede d for insom teo for 14 Days 08/14 insomnia Bisacodyl Rectal Suppository 10 MG aborted 9 RXNORM 10 mg Rectal as needed PRN Inser t 10 mg recta lly as neede d for const ipati on if no BM after milk of mag 08/14 constipatio n Bisacodyl Rectal Suppository 10 MG active 9 RXNORM 10 mg Rectal as needed PRN Inser t 10 mg recta lly as neede d for const ipati on if no BM after milk of mag 2024 - constipatio n Rozerem Oral Tablet 8 MG active 55099 2 RXNORM 1 table t Oral as needed PRN Give 1 table t by mouth every 23 hours as neede d for insom teo for 14 Days 08/28 insomnia Refresh Plus Ophthalmic Solution aborted 1 drop Ophtha lmic as needed PRN Insti ll 1 drop in both eyes as neede d for dry eyes 08/15 dry eyes Aspirin 81 Tablet Delayed Release 81 MG active 79167 6 RXNORM 1 mg Oral one time a day Routin e Give 1 mg by mouth one time a day for HTN 2020 - HTN Diabetic Tussin EX Syrup active 10 ml Oral as needed PRN Give 10 ml by mouth every 4 hours as neede d for cough 2020 - cough PredniSONE Tablet 2.5 MG aborted 6 RXNORM 1 table t Oral one time a day Routin e Give 1 table t by mouth one time a day for OTHER SPECI FIED CONGE NITAL MALFO RMATI ONS OF SKIN (Q82. 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 (sruthi ding order ) 2020 - Mild Pain Acetaminoph en Tablet 325 MG active 14294 2 RXNORM 2 table t Oral as needed PRN Give 2 table t by mouth every 4 hours as neede d for Temp 100F or above Notif y Physi ethel/ Advan oral Pract ice provi lainey. Do not excee d 3g/da y 2020 - Temp 100F or above Dulcolax Suppository 10 MG active 56026 1 RXNORM 1 suppo sitor y Rectal one time a day Routin e Inser t 1 suppo sitor y recta lly one time a day every 3 day(s ) for const ipati on resid ent reque st sched ule and time julio e 2020 - constipatio n Bisacodyl EC Tablet Delayed Release 5 MG active 06878 3 RXNORM 1 table t Oral as needed PRN Give 1 table t by mouth as neede d for const ipati on 2020 - constipatio n Fleet Enema Enema 7-19 GM/118ML active 68324 5 RXNORM 1 dose Rectal as needed PRN Inser t 1 dose recta lly as neede d for Const ipati on if no resul t from [place] lax withi n 2 hours . If no resul ts from Fleet enema , call /sixto cartwright pract ice provi lainey ([facility]) for [facility] order s. 2020 - Constipatio n Glucagon Emergency Kit 1 MG active 69186 7 RXNORM 1 mg Intram uscula r as needed PRN Injec t 1 mg intra muscu larly as neede d for BG less than 70, Not arous able consc ious or able to swall ow Hold all diabe tic meds until provi lainey autho rizes resum ption , remai n with pt.an d keep in bed/c hair for safet y. Repea t blood gluco se in 15 min AND Injec t 1 mg intra muscu larly as neede d for BG less than 70, Not arous able consc ious or able to swall ow If repea t blood gluco se is below 70mg/ dl and pt is NOT arous able, consc ious or able to swall ow. Avril nue to hold all diabe tic medic ation s until provi lainey autho rizes resum ption . Remai n with pt. Keep pt. in bed/c hair for safet y. 2021 - BG less than 70, Not arousable conscious or able to swallow 26448 7 RXNORM 1 mg Intram uscula r as needed PRN Injec t 1 mg intra muscu larly as neede d for BG less than 70, Not arous able consc ious or able to swall ow Hold all diabe tic meds until provi lainey autho rizes resum ption , remai n with pt.an d keep in bed/c hair for safet y. Repea t blood gluco se in 15 min AND Injec t 1 mg intra muscu larly as neede d for BG less than 70, Not arous able consc ious or able to swall ow If repea t blood gluco se is below 70mg/ dl and pt is NOT arous able, consc ious or able to swall ow. Avril nue to hold all diabe tic medic ation s until provi lainey autho rizes resum ption . Remai n with pt. Keep pt. in bed/c hair for safet y. 2021 - BG less than 70, Not arousable conscious or able to swallow Mental Status Section Date Assessment Total Score Description 07/30/2025 BIMS 12 moderate cognit niurka impairment CAM 0 No delirium ind icated PHQ-9 00 07/10/2025 CAM 0 No delirium ind icated Plan of Treatment Section Interventions Intervention Code Code System Display Name Proposed D ate Problems Problem # Description Date of onset Resolved Date Code CodeSystem Concern Status 1 ACUTE RESPIRATORY FAILURE WITH HYPOXIA 07/26/[address] active 2 ADULT HYPERTROPHIC PYLORIC STENOSIS 07/26/[address] active 3 UNSPECIFIED PSYCHOSIS NOT DUE TO A SUBSTANCE OR KNOWN PHYSIOLOGICAL CONDITION 09/10/[address] active 4 SEPSIS DUE TO PSEUDOMONAS 06/11/20 24 06/30/[address] completed 5 SEVERE SEPSIS WITH SEPTIC SHOCK 06/11/20 24 06/30/[address] completed 6 UNSPECIFIED LESIONS OF ORAL MUCOSA 06/11/20 24 06/30/[address] completed 7 ACUTE CYSTITIS WITHOUT HEMATURIA 03/01/20 24 03/26/[address] completed 8 ACUTE KIDNEY FAILURE, UNSPECIFIED 03/01/20 24 03/26/[address] completed 9 METABOLIC ENCEPHALOPATHY 03/01/20 24 03/26/[address] completed 10 PRESSURE ULCER OF SACRAL REGION, STAGE 2 03/01/[address] active 11 URINARY TRACT INFECTION, SITE NOT SPECIFIED 03/01/20 24 03/26/[address] completed 12 ESSENTIAL (PRIMARY) HYPERTENSION 10/02/[address] active 13 GASTRO-ESOPHAGEAL REFLUX DISEASE WITHOUT ESOPHAGITIS 10/02/[address] active 14 SUPERFICIAL MYCOSIS, UNSPECIFIED 10/02/[address] active 15 TYPE 2 DIABETES MELLITUS WITH DIABETIC POLYNEUROPATHY 10/02/[address] active 16 TYPE 2 DIABETES MELLITUS WITH OTHER CIRCULATORY COMPLICATIONS 10/02/[address] active 17 METHICILLIN RESISTANT STAPHYLOCOCCUS AUREUS INFECTION THE CAUSE OF DISEASES CLASSIFIED ELSEWHERE 06/26/[address] active 18 URINARY TRACT INFECTION, SITE NOT SPECIFIED 01/03/20 23 08/21/[address] completed 19 COVID-19 08/05/20 22 08/20/[address] completed 20 DYSPHAGIA, OROPHARYNGEAL PHASE 05/23/[address] active 21 OTHER SPECIFIED SEPSIS 05/23/20 21 10/15/[address] completed 22 PRESSURE ULCER OF SACRAL REGION, STAGE 2 05/23/20 21 06/26/[address] completed 23 URINARY TRACT INFECTION, SITE NOT SPECIFIED 05/23/20 21 10/15/[address] completed 24 HEREDITARY SPASTIC PARAPLEGIA 11/06/[address] active 25 INSOMNIA, UNSPECIFIED 11/06/[address] active 26 HYPOKALEMIA 08/21/20 20 06/30/[address] completed 27 ILEUS, UNSPECIFIED 08/21/20 20 08/21/[address] completed 28 POLYP OF COLON 08/21/[address] active 29 BULLOUS PEMPHIGOID 11/30/[address] active 30 ENCOUNTER FOR FITTING AND ADJUSTMENT OF URINARY DEVICE 11/24/[address] active 31 URINARY TRACT INFECTION, SITE NOT SPECIFIED 11/24/20 19 05/14/[address] completed 32 ACUTE KIDNEY FAILURE, UNSPECIFIED 10/04/20 19 10/15/[address] completed 33 CHRONIC KIDNEY DISEASE, UNSPECIFIED 10/04/[address] active 34 EXTENDED SPECTRUM BETA LACTAMASE (ESBL) RESISTANCE 10/04/[address] active 35 SILENT MYOCARDIAL ISCHEMIA 10/04/[address] active 36 TOXIC ENCEPHALOPATHY 10/04/2008/31/[address] completed 37 UNSPECIFIED DEMENTIA, UNSPECIFIED SEVERITY, WITHOUT BEHAVIORAL DISTURBANCE, PSYCHOTIC DISTURBANCE, MOOD DISTURBANCE, AND ANXIETY 10/04/[address] active 38 DERMATITIS, UNSPECIFIED 09/07/[address] active 39 METABOLIC ENCEPHALOPATHY 03/25/2009/21/[address] completed 40 SEVERE SEPSIS WITHOUT SEPTIC SHOCK 03/25/2009/21/[address] completed 41 ACUTE (REVERSIBLE) ISCHEMIA OF SMALL INTESTINE, EXTENT UNSPECIFIED 12/14/1908/21/[address] completed 42 ALLERGIC RHINITIS, UNSPECIFIED 12/14/[address] active 43 BENIGN PROSTATIC HYPERPLASIA WITH LOWER URINARY TRACT SYMPTOMS 12/14/[address] active 44 CHRONIC KIDNEY DISEASE, STAGE 3 (MODERATE) 12/14/1908/31/[address] completed 45 CHRONIC PAIN SYNDROME 12/14/[address] active 46 MAJOR DEPRESSIVE DISORDER, RECURRENT, MODERATE 12/14/[address] active 47 MOOD DISORDER DUE TO KNOWN PHYSIOLOGICAL CONDITION, UNSPECIFIED 12/14/1905/01/[address] completed 48 MULTIPLE SCLEROSIS 12/14/[address] active 49 NEUROMUSCULAR DYSFUNCTION OF BLADDER, UNSPECIFIED 12/14/[address] active 50 OTHER SPECIFIED CONGENITAL MALFORMATIONS OF SKIN 12/14/[address] active 51 POLYNEUROPATHY, UNSPECIFIED 12/14/[address] active 52 TYPE 2 DIABETES MELLITUS WITH UNSPECIFIED COMPLICATIONS 12/14/[address] active 53 URINARY TRACT INFECTION, SITE NOT SPECIFIED 12/14/1903/23/[address] completed Reason for Referral No Reasons for Referral Entered Diagnostic Results Result Code Code System Date Test Result Interpretation Reference Range Status Notes [id number] LOINC 2024 VENOUS DUP EXT UNI/WEBER Completed Result for: REVAOMERO ( 1945, M) 85208-ST CPT 2024 VENOUS DUP EXT UNI/WEBER Final [...] MASS AND LUMP, LEFT UPPER LIMBPrincipal Result County Judge: BONNIE MARCUM ([id number])Te chnician: KUNAL GORDON ([facility])Trans cription Labor/Excavator: AMRIK Test Code Code System Name Date 08/02/2025 Social History Social History Observation Description Start Date End Date Code Code System Current Smoking Status Tobacco smoking consumption unknown 674223568 SNOMED CT Sex Assigned At Male 1945 44051-0 [facility] Gender Identity Sexual Orientation Vital Signs Code Code System Vitals Name Values and Units Timing Information 9279-1 [facility] Respiratory Rate Value=18.0 Units=/m in 08/15/2025 8462-4 [facility] Blood Pressure-Diastolic Value=38 Un its=mmHg 08/15/2025 8480-6 [facility] Blood Pressure-Systolic Fckiw=715 Un its=mmHg 08/15/2025 8310-5 [facility] Body Temperature Value=97.4 Units= F 08/15/2025 8867-4 [facility] Heart rate Value=86.0 Units=/min 2339-0 [facility] Blood Sugar Sxtak=206.0 Units=mg/dL 08/15/2025 13061-1 [facility] O2 % BldC Oximetry Value=99.0 Units= % 08/15/2025 91321-7 [facility] Pain Level Value=0.0 08/15/2025 8302-2 [facility] Height Value=70.5 Units=Inches 08/01/2025 53183-4 [facility] Weight Kvtsi=501.8 Units=Lbs
--- NOTE | 2025-08-15 22:01 | ED.MALEGU ---
HPI - Male Genitourinary General Chief complaint: Urogenital-Male Stated complaint: bleeding from urethra Time Seen by Provider: 08/15/25 22:01 Source: patient Mode of arrival: ambulatory Limitations: no limitations History of Present Illness ED Provider: Dr. Richard HPI Narrative: 80-year-old male presented hospital today for evaluation of hematuria. Patient has had a catheter placed yesterday. The patient does have history of MS. Patient is presenting to evaluate for signs of blood around the Carty catheter. However it appears that the blood and bleeding has stopped. No further complaints at this time. Patient is requesting to be discharged back to facility. Related Data Home Medications ?Medication ?Instructions ?Recorded ?Confirmed ceramides 1,3,6-II (CeraVe topical 1 appl topical BID Dry Skin 11/16/23 08/09/25 cream) bacitracin 500 unit/gram topical 1 appl topical BID 07/11/25 08/09/25 ointment acetaminophen 325 mg tablet 650 mg PO BEDTIME 08/09/25 08/09/25 acetaminophen 325 mg tablet 650 mg PO Q4H PRN mild pain/temp 08/09/25 08/09/25 100F amlodipine 10 mg tablet 10 mg PO DAILY 08/09/25 08/09/25 ascorbic acid (vitamin C) 500 mg 500 mg PO DAILY 08/09/25 08/09/25 tablet aspirin 81 mg tablet,delayed 81 mg PO DAILY 08/09/25 08/09/25 release benzocaine 6 mg-menthol 10 mg 1 ray mucous membrane QID PRN Sore 08/09/25 08/09/25 lozenges (Chloraseptic Sore Throat) Throat bisacodyl 10 mg rectal suppository 10 mg TN DAILY PRN Constipation 08/09/25 08/09/25 bisacodyl 5 mg tablet 5 mg PO DAILY PRN Constipation 08/09/25 08/09/25 bismuth subsalicylate 262 mg/15 mL 524 mg PO Q8H PRN UPSET 08/09/25 08/09/25 oral suspension (Pepto-Bismol) STOMACH/NAUSEA carboxymethylcellulose sodium 0.5 1 drp ophthalmic (eye) QID 08/09/25 08/09/25 % eye drops (Refresh Tears) carvedilol 12.5 mg tablet 12.5 mg PO BID 08/09/25 08/09/25 cholecalciferol (vitamin D3) 25 25 mcg PO DAILY 08/09/25 08/09/25 mcg (1,000 unit) tablet docusate sodium 100 mg capsule 200 mg PO BID 08/09/25 08/09/25 famotidine 20 mg tablet 20 mg PO DAILY 08/09/25 08/09/25 ferrous sulfate 325 mg (65 mg 325 mg PO DAILY 08/09/25 08/09/25 iron) tablet folic acid 1 mg tablet 1 mg PO DAILY 08/09/25 08/09/25 gabapentin 300 mg capsule 300 mg PO TID 08/09/25 08/09/25 guaifenesin 100 mg/5 mL oral liquid 200 mg PO Q4H PRN Cough 08/09/25 08/09/25 guaifenesin 600 mg tablet, 600 mg PO Q12H PRN Cold Symptoms 08/09/25 08/09/25 extended release 12 hr (Mucinex) insulin glargine-yfgn 100 unit/mL 3 unit subcut BEDTIME 08/09/25 08/09/25 subcutaneous solution insulin lispro 100 unit/mL 1 sliding scale dose subcut BID 08/09/25 08/09/25 subcutaneous pen (Admelog SoloStar U-100 Insulin lispro) lactulose 10 gram/15 mL oral 20 g PO DAILY 08/09/25 08/09/25 solution lanolin alcohols-mineral 1 appl topical BID 08/09/25 08/09/25 oil-w.petrolatum-ceresin topical cream magnesium hydroxide 400 mg/5 mL 30 ml PO BEDTIME PRN Constipation 08/09/25 08/09/25 oral suspension (Milk of Magnesia) methotrexate sodium 2.5 mg tablet 15 mg PO MO@0900 08/09/25 08/09/25 multivitamin 1 tab PO DAILY 08/09/25 08/09/25 naloxone 0.4 mg/mL injection 0.4 mg IM Q2M PRN OPIOD OVERDOSE 08/09/25 08/09/25 solution ondansetron 4 mg disintegrating 4 mg PO Q4H PRN NAUSEA/VOMITING 08/09/25 08/09/25 tablet polyethylene glycol 3350 17 17 g PO DAILY 08/09/25 08/09/25 gram/dose oral powder (Miralax) prednisone 2.5 mg tablet 2.5 mg PO DAILY 08/09/25 08/09/25 ramelteon 8 mg tablet (Rozerem) 8 mg PO BEDTIME PRN Insomnia 08/09/25 08/09/25 rosuvastatin 10 mg tablet 10 mg PO BEDTIME 08/09/25 08/09/25 sennosides 8.6 mg-docusate sodium 2 tab-cap PO BEDTIME 08/09/25 08/09/25 50 mg tablet simethicone 80 mg chewable tablet 80 mg PO Q6H PRN GAS 08/09/25 08/09/25 sodium phosphates 19 gram-7 118 ml TN DAILY PRN Constipation 08/09/25 08/09/25 gram/118 mL enema (Fleet Enema) tramadol 50 mg tablet 50 mg PO BEDTIME PRN Pain (Scale 08/09/25 08/09/25 Score 4-6) trazodone 50 mg tablet 50 mg PO BEDTIME PRN Insomnia 08/09/25 08/09/25 vancomycin 500 mg/100 mL in 0.9% 500 mg IV DAILY 08/09/25 08/09/25 sodium chloride intravenous piggyback white petrolatum 57 % topical 1 ea topical DAILY 08/09/25 08/09/25 paste (Remedy Phytoplex Z-Guard) Allergies Allergy/AdvReac Type Severity Reaction Status Date / Time Benzodiazepines Allergy Unknown UNKNOWN Verified 08/15/25 19:21 (BENZODIAZEPINES) dalfampridine (From AMPYRA) Allergy Unknown UNKNOWN Verified 08/15/25 19:21 duloxetine (From CYMBALTA) Allergy Unknown UNKNOWN Verified 08/15/25 19:21 ezetimibe (From ZETIA) Allergy Unknown UNKNOWN Verified 08/15/25 19:21 niacin (NIACIN) Allergy Unknown UNKNOWN Verified 08/15/25 19:21 pravastatin (PRAVASTATIN) Allergy Unknown UNKNOWN Verified 08/15/25 19:21 Ylcjnwc-MAZ-FvM Reductase Allergy Unknown UNKNOWN Verified 08/15/25 19:21 Inhibitor ([id number]-UCF-XYN REDUCTASE INHIBITOR) lorazepam (From ATIVAN) AdvReac Severe EXCESSIVE Verified 08/15/25 19:21 SEDATION doxycycline (DOXYCYCLINE) AdvReac Mild esophogeal Verified 08/15/25 19:21 iritation methylprednisolone (From AdvReac Mild heartburn Verified 08/15/25 19:21 SOLU-MEDROL) ertapenem (From INVANZ) AdvReac Unknown possible Verified 08/15/25 19:21 cause of bullous pemphigoid Review of Systems Review of Systems: Pertinent review of systems as mentioned in HPI. All other system otherwise negative. [facility] Past Medical History [facility] Narrative: Medical history as mentioned in HPI Medical History (Updated 08/15/25 @ 23:28 by Valentina Richard DO) UTI (urinary tract infection) due to urinary indwelling Carty catheter Hematuria Steroid dependence EDWARD (acute kidney injury) Bullous pemphigoid Decubitus ulcer of coccygeal region, stage 2 Acute hypotension Sepsis Aspiration pneumonitis Recurrent UTI (urinary tract infection) Hypotonic neurogenic bladder Lytic lesion of bone on x-ray Wound of foot Anemia Septic shock Shoulder pain Constipation Hematuria Multiple sclerosis Depression Diabetes mellitus type 2 in obese Chronic pain syndrome BPH (benign prostatic hyperplasia) Dehydration Chronic renal failure Urinary tract infection Surgical History Hx of removal of cyst Family History Family History Family/Other Heart attack Father Diabetes Social History Social History Household Members: Other Household Members Other:: lives at [facility] in [place] Housing: Long-Term Housing Other:: [facility] Do you presently have visiting nurse or other home services: No Unable to assess alcohol history related to: Unable to respond Alcohol intake: current Alcohol intake frequency: does not drink Alcohol type: hard liquor Comment: BEDFAST Patient Tobacco Use Status: Former Tobacco user Cigarette Packs Per Day: 1 Smoked in Last 30 Days: No Use of substances other than those prescribed or required for medical reasons: No Advance Directives: Yes Advance Directives on File: Yes Advance Directives Date on File: 10/13/20 service: No Current occupational status: retired Physical Exam Exam: Exam: General: Pleasant, no distress, interacting appropriately Head: Normacephalic, atraumatic : Carty catheter in place. Good urine output. Does not appear to be hematuria in the Carty catheter bag. It is draining well. There is some dry blood around the urethra. No sign of active bleeding at this time. Neurological: Awake and alert, no facial droop noted Skin: Warm and dry Psychiatric: Appropriate mood and thoughts Vital Signs: Vital Signs: Last Vital Signs Temp 98.2 F 08/15/25 20:19 Pulse 82 08/15/25 22:28 Resp 18 08/15/25 22:28 BP 152/48 H 08/15/25 22:28 Pulse Ox 97 08/15/25 22:28 O2 Del Method Room Air 08/15/25 22:28 BMI result Body Mass Index 23.7 Medical Decision Making Medical Decision Making [facility] Narrative: This is a 80-year-old male history of MS presented hospital today for evaluation of blood around the Carty catheter. I evaluated the Carty catheter does not appear to be actively bleeding there is some dry blood. There was no signs of blood in the Carty bag itself. The Carty is likely in the bladder and draining well. There was no issues with it draining at this time. Patient appears to be well. We will plan to discharge patient at this time. Differential Diagnosis Differential Diagnoses: The differential diagnosis associated with the presentation includes Hematuria, urethral trauma, blood from the urethra Chronic Conditions Multiple Sclerosis Discharge Plan Discharge Clinical Impression: Hematuria, Carty catheter in place Patient Disposition: er LT Additional Instructions: The blood from the urethra is from the trauma of the carty catheter this will improve with time. Prescriptions: No Action ceramides 1,3,6-II [CeraVe] Cream 1 appl TOPICAL BID bacitracin 500 unit/gram Ointment 1 appl TOPICAL BID Protocol: Apply to: Apply to: BILATERAL FEET acetaminophen 325 mg Tablet 650 mg PO Q4H PRN (Reason: mild pain/temp 100F) insulin lispro [Admelog SoloStar U-100 Insulin] 100 unit/mL Insulin Pen 1 sliding scale dose SUBCUT BID Rx Instructions: BS 200 - 249 = 2 units BS 250-299 = 4 units BS 300-349 = 6 units BS 350 - 399 = 8 units call MD if glucose > 400 amlodipine 10 mg Tablet 10 mg PO DAILY Protocol: Hold for SBP< HOLD for SBP < : 90 ascorbic acid (vitamin C) 500 mg Tablet 500 mg PO DAILY aspirin 81 mg Tablet,Delayed Release (Dr/Ec) 81 mg PO DAILY bisacodyl 5 mg Tablet 5 mg PO DAILY PRN (Reason: Constipation) bisacodyl 10 mg Suppository 10 mg TN DAILY PRN (Reason: Constipation) carvedilol 12.5 mg Tablet 12.5 mg PO BID Rx Instructions: must administer with a meal/food Chloraseptic Sore Throat 6-10 mg Lozenge 1 ray MUCOUS MEMBRANE QID PRN (Reason: Sore Throat) cholecalciferol (vitamin D3) 25 mcg (1,000 unit) Tablet 25 mcg PO DAILY docusate sodium 100 mg Capsule 200 mg PO BID guaifenesin 100 mg/5 mL Liquid 200 mg PO Q4H PRN (Reason: Cough) lactulose 10 gram/15 mL Solution 20 g PO DAILY famotidine 20 mg Tablet 20 mg PO DAILY ferrous sulfate 325 mg (65 mg iron) Tablet 325 mg PO DAILY Fleet Enema 19-7 gram/118 mL Enema 118 ml TN DAILY PRN (Reason: Constipation) Rx Instructions: IF NO RESULT FROM DULCOLAX WITHIN 2 HOURS folic acid 1 mg Tablet 1 mg PO DAILY gabapentin 300 mg Capsule 300 mg PO TID lanolin wnryvxs-dp-h.pet-ceres Cream 1 appl TOPICAL BID insulin glargine-yfgn 100 unit/mL Solution 3 unit SUBCUT BEDTIME methotrexate sodium 2.5 mg Tablet 15 mg PO MO@0900 magnesium hydroxide [Milk of Magnesia] 400 mg/5 mL Suspension 30 ml PO BEDTIME PRN (Reason: Constipation) polyethylene glycol 3350 [Miralax] 17 gram/dose Powder 17 g PO DAILY guaifenesin [Mucinex] 600 mg Tablet Extended Release 12hr 600 mg PO Q12H PRN (Reason: Cold Symptoms) multivitamin Tablet 1 tab PO DAILY naloxone 0.4 mg/mL Solution 0.4 mg IM Q2M PRN (Reason: OPIOD OVERDOSE) Rx Instructions: NTExceed 10 mg total dose/episode ondansetron 4 mg Tablet,Disintegrating 4 mg PO Q4H PRN (Reason: NAUSEA/VOMITING) bismuth subsalicylate [Pepto-Bismol] 262 mg/15 mL Suspension 524 mg PO Q8H PRN (Reason: UPSET STOMACH/NAUSEA) Rx Instructions: do not exceed 8 doses in a 24 hour period Remedy Phytoplex Z-Guard 57 % Paste 1 ea TOPICAL DAILY Protocol: Apply to: Apply to: SACRUM prednisone 2.5 mg Tablet 2.5 mg PO DAILY carboxymethylcellulose sodium [Refresh Tears] 0.5 % Drops 1 drp OPHTHALMIC (EYE) QID rosuvastatin 10 mg Tablet 10 mg PO BEDTIME ramelteon [Rozerem] 8 mg Tablet 8 mg PO BEDTIME PRN (Reason: Insomnia) sennosides-docusate sodium 8.6-50 mg Tablet 2 tab-cap PO BEDTIME simethicone 80 mg Tablet,Chewable 80 mg PO Q6H PRN (Reason: GAS) tramadol 50 mg Tablet 50 mg PO BEDTIME PRN (Reason: Pain (Scale Score 4-6)) trazodone 50 mg Tablet 50 mg PO BEDTIME PRN (Reason: Insomnia) acetaminophen 325 mg Tablet 650 mg PO BEDTIME vancomycin in 0.9 % sodium chl 500 mg/100 mL Piggyback 500 mg IV DAILY Rx Instructions: ORDERED UNTIL 08/10/25 Print Language: Tanzanian
[2025-08-15 22:28] VITALS: BP 152/48; PULSE 82; RESP 18; O2SAT 97
--- NOTE | 2025-08-16 01:19 | PC.NURSE ---
T/w attempted 3 times to call and give report to [facility] staff. No answer. Report given to [facility].
[2025-08-16 03:38] VITALS: BP 152/48; PULSE 82; RESP 18; TEMP 37.1; O2SAT 97
== END 2025-08-16 01:30 ==
PROVIDERS: Emergency Provider Student in an Organized Health Care Education/Training Program
DX: R31.9 Hematuria, unspecified (principal); T83.83XA Hemorrhage due to genitourinary prosthetic devices, implants and grafts, initial encounter; G35 Multiple sclerosis; D64.9 Anemia, unspecified; N18.9 Chronic kidney disease, unspecified; E11.9 Type 2 diabetes mellitus without complications; Y92.89 Other specified places as the place of occurrence of the external cause; Z87.440 Personal history of urinary (tract) infections; Z79.899 Other long term (current) drug therapy
CPT/HCPCS: 99282; 99284

== ENCOUNTER 2025-08-16 15:30 | Emergency (ER) | payer MEDICARE, OTHER, SELFPAY ==
[2025-08-16 15:48] VITALS: BP 118/72; BP 127/54; PULSE 72; PULSE 74; RESP 16; TEMP 36.5; O2SAT 99; BMI 22.4
--- NOTE | 2025-08-16 15:50 | ED.MALEGU ---
HPI - Male Genitourinary General Chief complaint: Urogenital-Male Stated complaint: catheter issues confused at baseline Time Seen by Provider: 08/16/25 15:47 History of Present Illness ED Provider: Ronny Hernandez MD HPI Narrative: 80-year-old male bed-bound DNR DNI. Sent for non flushing/draining Nunez Related Data Home Medications ?Medication ?Instructions ?Recorded ?Confirmed ceramides 1,3,6-II (CeraVe topical 1 appl topical BID Dry Skin 11/16/23 08/09/25 cream) bacitracin 500 unit/gram topical 1 appl topical BID 07/11/25 08/09/25 ointment acetaminophen 325 mg tablet 650 mg PO BEDTIME 08/09/25 08/09/25 acetaminophen 325 mg tablet 650 mg PO Q4H PRN mild pain/temp 08/09/25 08/09/25 100F amlodipine 10 mg tablet 10 mg PO DAILY 08/09/25 08/09/25 ascorbic acid (vitamin C) 500 mg 500 mg PO DAILY 08/09/25 08/09/25 tablet aspirin 81 mg tablet,delayed 81 mg PO DAILY 08/09/25 08/09/25 release benzocaine 6 mg-menthol 10 mg 1 ray mucous membrane QID PRN Sore 08/09/25 08/09/25 lozenges (Chloraseptic Sore Throat) Throat bisacodyl 10 mg rectal suppository 10 mg NM DAILY PRN Constipation 08/09/25 08/09/25 bisacodyl 5 mg tablet 5 mg PO DAILY PRN Constipation 08/09/25 08/09/25 bismuth subsalicylate 262 mg/15 mL 524 mg PO Q8H PRN UPSET 08/09/25 08/09/25 oral suspension (Pepto-Bismol) STOMACH/NAUSEA carboxymethylcellulose sodium 0.5 1 drp ophthalmic (eye) QID 08/09/25 08/09/25 % eye drops (Refresh Tears) carvedilol 12.5 mg tablet 12.5 mg PO BID 08/09/25 08/09/25 cholecalciferol (vitamin D3) 25 25 mcg PO DAILY 08/09/25 08/09/25 mcg (1,000 unit) tablet docusate sodium 100 mg capsule 200 mg PO BID 08/09/25 08/09/25 famotidine 20 mg tablet 20 mg PO DAILY 08/09/25 08/09/25 ferrous sulfate 325 mg (65 mg 325 mg PO DAILY 08/09/25 08/09/25 iron) tablet folic acid 1 mg tablet 1 mg PO DAILY 08/09/25 08/09/25 gabapentin 300 mg capsule 300 mg PO TID 08/09/25 08/09/25 guaifenesin 100 mg/5 mL oral liquid 200 mg PO Q4H PRN Cough 08/09/25 08/09/25 guaifenesin 600 mg tablet, 600 mg PO Q12H PRN Cold Symptoms 08/09/25 08/09/25 extended release 12 hr (Mucinex) insulin glargine-yfgn 100 unit/mL 3 unit subcut BEDTIME 08/09/25 08/09/25 subcutaneous solution insulin lispro 100 unit/mL 1 sliding scale dose subcut BID 08/09/25 08/09/25 subcutaneous pen (Admelog SoloStar U-100 Insulin lispro) lactulose 10 gram/15 mL oral 20 g PO DAILY 08/09/25 08/09/25 solution lanolin alcohols-mineral 1 appl topical BID 08/09/25 08/09/25 oil-w.petrolatum-ceresin topical cream magnesium hydroxide 400 mg/5 mL 30 ml PO BEDTIME PRN Constipation 08/09/25 08/09/25 oral suspension (Milk of Magnesia) methotrexate sodium 2.5 mg tablet 15 mg PO MO@0900 08/09/25 08/09/25 multivitamin 1 tab PO DAILY 08/09/25 08/09/25 naloxone 0.4 mg/mL injection 0.4 mg IM Q2M PRN OPIOD OVERDOSE 08/09/25 08/09/25 solution ondansetron 4 mg disintegrating 4 mg PO Q4H PRN NAUSEA/VOMITING 08/09/25 08/09/25 tablet polyethylene glycol 3350 17 17 g PO DAILY 08/09/25 08/09/25 gram/dose oral powder (Miralax) prednisone 2.5 mg tablet 2.5 mg PO DAILY 08/09/25 08/09/25 ramelteon 8 mg tablet (Rozerem) 8 mg PO BEDTIME PRN Insomnia 08/09/25 08/09/25 rosuvastatin 10 mg tablet 10 mg PO BEDTIME 08/09/25 08/09/25 sennosides 8.6 mg-docusate sodium 2 tab-cap PO BEDTIME 08/09/25 08/09/25 50 mg tablet simethicone 80 mg chewable tablet 80 mg PO Q6H PRN GAS 08/09/25 08/09/25 sodium phosphates 19 gram-7 118 ml NM DAILY PRN Constipation 08/09/25 08/09/25 gram/118 mL enema (Fleet Enema) tramadol 50 mg tablet 50 mg PO BEDTIME PRN Pain (Scale 08/09/25 08/09/25 Score 4-6) trazodone 50 mg tablet 50 mg PO BEDTIME PRN Insomnia 08/09/25 08/09/25 vancomycin 500 mg/100 mL in 0.9% 500 mg IV DAILY 08/09/25 08/09/25 sodium chloride intravenous piggyback white petrolatum 57 % topical 1 ea topical DAILY 08/09/25 08/09/25 paste (Remedy Phytoplex Z-Guard) Allergies Allergy/AdvReac Type Severity Reaction Status Date / Time Benzodiazepines Allergy Unknown UNKNOWN Verified 08/16/25 15:51 (BENZODIAZEPINES) dalfampridine (From AMPYRA) Allergy Unknown UNKNOWN Verified 08/16/25 15:51 duloxetine (From CYMBALTA) Allergy Unknown UNKNOWN Verified 08/16/25 15:51 ezetimibe (From ZETIA) Allergy Unknown UNKNOWN Verified 08/16/25 15:51 niacin (NIACIN) Allergy Unknown UNKNOWN Verified 08/16/25 15:51 pravastatin (PRAVASTATIN) Allergy Unknown UNKNOWN Verified 08/16/25 15:51 Inrtcrx-MSR-DhO Reductase Allergy Unknown UNKNOWN Verified 08/16/25 15:51 Inhibitor (XUGTDYG-UJM-VUN REDUCTASE INHIBITOR) lorazepam (From ATIVAN) AdvReac Severe EXCESSIVE Verified 08/16/25 15:51 SEDATION doxycycline (DOXYCYCLINE) AdvReac Mild esophogeal Verified 08/16/25 15:51 iritation methylprednisolone (From AdvReac Mild heartburn Verified 08/16/25 15:51 SOLU-MEDROL) ertapenem (From INVANZ) AdvReac Unknown possible Verified 08/16/25 15:51 cause of bullous pemphigoid COUNT INCLUDES [facility] Past Medical History Medical History (Updated 08/17/25 @ 00:01 by Background Daesmer) UTI (urinary tract infection) due to urinary indwelling Nunez catheter Hematuria Steroid dependence EDWARD (acute kidney injury) Bullous pemphigoid Decubitus ulcer of coccygeal region, stage 2 Acute hypotension Sepsis Aspiration pneumonitis Recurrent UTI (urinary tract infection) Hypotonic neurogenic bladder Lytic lesion of bone on x-ray Wound of foot Anemia Septic shock Shoulder pain Constipation Hematuria Multiple sclerosis Depression Diabetes mellitus type 2 in obese Chronic pain syndrome BPH (benign prostatic hyperplasia) Dehydration Chronic renal failure Urinary tract infection Surgical History Hx of removal of cyst Family History Family History Family/Other Heart attack Father Diabetes Social History Social History Household Members: Other Household Members Other:: lives at [facility] in [place] Housing: Custodial Housing Other:: [facility] Do you presently have visiting nurse or other home services: No Unable to assess alcohol history related to: Unable to respond Alcohol intake: current Alcohol intake frequency: does not drink Alcohol type: hard liquor Comment: BEDFAST Patient Tobacco Use Status: Former Tobacco user Cigarette Packs Per Day: 1 Smoked in Last 30 Days: No Use of substances other than those prescribed or required for medical reasons: No Advance Directives: Yes Advance Directives on File: Yes Advance Directives Date on File: 10/13/20 Do you have a plan to hurt others: No Plan service: No Current occupational status: retired Physical Exam Exam: Exam: GENERAL: Well appearing. No apparent distress. Alert. HEAD/NECK: No visual trauma. EYES: Normal to inspection. No conjunctival erythema. No discharge. ENMT: Hearing grossly normal. External nose normal. RESPIRATORY: Respiratory effort normal. CARDIOVASCULAR: Additional details (Grossly well perfused). SKIN: No jaundice. NEUROLOGICAL: Alert. Moving all extremities x4. Additional details (No gross motor deficits. Normal tone. ). PSYCHIATRIC: Alert. Appearance appropriate for situation. Vital Signs: Vital Signs: Last Vital Signs Temp 97.7 F 08/16/25 17:45 Pulse 71 08/16/25 17:45 Resp 17 08/16/25 17:45 BP 122/55 L 08/16/25 17:45 Pulse Ox 98 08/16/25 17:45 O2 Del Method Room Air 08/16/25 17:45 BMI result Body Mass Index 22.4 Medical Decision Making Medical Decision Making MDM Narrative: Recent clot retention. Has been set up for outpatient suprapubic catheter evaluation. Bed-bound. Sent here for ?nondraining Nunez/can not flush ?. On arrival freely flowing pink tinged urine from Nunez. Procedures Procedure Narrative Procedure Narrative: EMERGENCY ULTRASOUND INTERPRETATION-Limited Retroperitoneal (Renal) [This study was ordered, performed, and interpreted by myself. The study reveals: Impression: NO EVIDENCE OF UROLOGIC OBSTRUCTION] [Indication: FLANK PAIN Bladder: Near complete decompressed bladder with Nunez balloon visible within Right Kidney: NO HYDRONEPHROSIS Left Kidney: NO HYDRONEPHROSIS Performed by: Ronny Hernandez MD Images were stored CPT: 92164] Discharge Plan Discharge Clinical Impression: Neurogenic bladder Patient Disposition: Home, Self-Care Instructions: Nunez Catheter Placement and Care (ED) Additional Instructions: You were evaluated with an ultrasound which did not show any obstruction and it showed appropriate placement of your Nunez catheter. The Nunez was draining yellow urine. Prescriptions: No Action ceramides 1,3,6-II [CeraVe] Cream 1 appl TOPICAL BID bacitracin 500 unit/gram Ointment 1 appl TOPICAL BID Protocol: Apply to: Apply to: BILATERAL FEET acetaminophen 325 mg Tablet 650 mg PO Q4H PRN (Reason: mild pain/temp 100F) insulin lispro [Admelog SoloStar U-100 Insulin] 100 unit/mL Insulin Pen 1 sliding scale dose SUBCUT BID Rx Instructions: BS 200 - 249 = 2 units BS 250-299 = 4 units BS 300-349 = 6 units BS 350 - 399 = 8 units call MD if glucose > 400 amlodipine 10 mg Tablet 10 mg PO DAILY Protocol: Hold for SBP< HOLD for SBP < : 90 ascorbic acid (vitamin C) 500 mg Tablet 500 mg PO DAILY aspirin 81 mg Tablet,Delayed Release (Dr/Ec) 81 mg PO DAILY bisacodyl 5 mg Tablet 5 mg PO DAILY PRN (Reason: Constipation) bisacodyl 10 mg Suppository 10 mg NM DAILY PRN (Reason: Constipation) carvedilol 12.5 mg Tablet 12.5 mg PO BID Rx Instructions: must administer with a meal/food Chloraseptic Sore Throat 6-10 mg Lozenge 1 ray MUCOUS MEMBRANE QID PRN (Reason: Sore Throat) cholecalciferol (vitamin D3) 25 mcg (1,000 unit) Tablet 25 mcg PO DAILY docusate sodium 100 mg Capsule 200 mg PO BID guaifenesin 100 mg/5 mL Liquid 200 mg PO Q4H PRN (Reason: Cough) lactulose 10 gram/15 mL Solution 20 g PO DAILY famotidine 20 mg Tablet 20 mg PO DAILY ferrous sulfate 325 mg (65 mg iron) Tablet 325 mg PO DAILY Fleet Enema 19-7 gram/118 mL Enema 118 ml NM DAILY PRN (Reason: Constipation) Rx Instructions: IF NO RESULT FROM DULCOLAX WITHIN 2 HOURS folic acid 1 mg Tablet 1 mg PO DAILY gabapentin 300 mg Capsule 300 mg PO TID lanolin gbkszxw-fq-q.pet-ceres Cream 1 appl TOPICAL BID insulin glargine-yfgn 100 unit/mL Solution 3 unit SUBCUT BEDTIME methotrexate sodium 2.5 mg Tablet 15 mg PO MO@0900 magnesium hydroxide [Milk of Magnesia] 400 mg/5 mL Suspension 30 ml PO BEDTIME PRN (Reason: Constipation) polyethylene glycol 3350 [Miralax] 17 gram/dose Powder 17 g PO DAILY guaifenesin [Mucinex] 600 mg Tablet Extended Release 12hr 600 mg PO Q12H PRN (Reason: Cold Symptoms) multivitamin Tablet 1 tab PO DAILY naloxone 0.4 mg/mL Solution 0.4 mg IM Q2M PRN (Reason: OPIOD OVERDOSE) Rx Instructions: NTExceed 10 mg total dose/episode ondansetron 4 mg Tablet,Disintegrating 4 mg PO Q4H PRN (Reason: NAUSEA/VOMITING) bismuth subsalicylate [Pepto-Bismol] 262 mg/15 mL Suspension 524 mg PO Q8H PRN (Reason: UPSET STOMACH/NAUSEA) Rx Instructions: do not exceed 8 doses in a 24 hour period Remedy Phytoplex Z-Guard 57 % Paste 1 ea TOPICAL DAILY Protocol: Apply to: Apply to: SACRUM prednisone 2.5 mg Tablet 2.5 mg PO DAILY carboxymethylcellulose sodium [Refresh Tears] 0.5 % Drops 1 drp OPHTHALMIC (EYE) QID rosuvastatin 10 mg Tablet 10 mg PO BEDTIME ramelteon [Rozerem] 8 mg Tablet 8 mg PO BEDTIME PRN (Reason: Insomnia) sennosides-docusate sodium 8.6-50 mg Tablet 2 tab-cap PO BEDTIME simethicone 80 mg Tablet,Chewable 80 mg PO Q6H PRN (Reason: GAS) tramadol 50 mg Tablet 50 mg PO BEDTIME PRN (Reason: Pain (Scale Score 4-6)) trazodone 50 mg Tablet 50 mg PO BEDTIME PRN (Reason: Insomnia) acetaminophen 325 mg Tablet 650 mg PO BEDTIME vancomycin in 0.9 % sodium chl 500 mg/100 mL Piggyback 500 mg IV DAILY Rx Instructions: ORDERED UNTIL 08/10/25 Interventions: ED Discharge Assessment Last Done: 08/16/25 17:45 Discharge Date/Time: 08/16/25 17:46 Print Language: Sami
--- NOTE | 2025-08-16 16:10 | PC.NURSE ---
Addendum entered by Kyra Alvarez RN 08/16/25 16:20: Pt found to be in the same hospital gown he was discharged in, with vehicle monitor technician leads still attached. Samantha Schuster contacted, [facility] caring for [place] this morning Maddie Montalvo left prior to patient arrival to ED. Per staff note, pt was bathed and changed and catheter was flushed without success. Samantha Marie updated and report given. Pt bathed and changed in ED, new gown applied. and CN aware. Original Note: Pt found to be in the same hospital gown he was discharged in, with vehicle monitor technician leads still attached. Samantha Schuster contacted, [facility] caring for [place] this morning Maddie Montalvo left prior to patient arrival to ED. Per staff note, pt was bathed and changed and catheter was flushed without success. Samantha Marie updated and report given. Pt bathed and changed in ED, new gown applied.
[2025-08-16 17:45] VITALS: BP 122/55; PULSE 71; RESP 17; TEMP 36.5; O2SAT 98
--- OUTSIDE RECORDS SUMMARY | 2025-08-16 19:06 | XMS_ITS | Clinical Summary ---
Author Organization Formerly [facility] Address [address] [place] [address] Care Team Providers Care Regional Education Coordinator Name Role Phone Unavailable Primary Care Provider [...] patient should follow-up with his ID at [place] on discharge - Tolerating regular diet but continues to have poor p.o. intake, he was cleared for regular thins by [facility] - Continue Chloraseptic for throat pain - Added for shows lidocaine for throat pain or discomfort - Continue PPI twice daily, will switch to p.o. - Continue Pepcid - Continue amlodipine and carvedilol for hypertension Assessment & Plan (07/23/2025 11:35 AM EDT): -Continue IV vancomycin for MRSA bacteremia, EOT 08/11, patient should follow-up with his ID at [place] on discharge - Tolerating regular diet but continues to have poor p.o. intake, he was cleared for regular thins by [facility] - Continue Chloraseptic for throat pain - [...] patient should follow-up with his ID at [place] on discharge - Tolerating regular diet but continues to have poor p.o. intake, he was cleared for regular thins by [facility] - Continue Chloraseptic for throat pain - Added for shows lidocaine for throat pain or discomfort - Continue PPI twice daily, will switch to p.o. - Continue Pepcid - Continue amlodipine and carvedilol for hypertension Assessment & Plan (07/23/2025 11:35 AM EDT): -Continue IV vancomycin for MRSA bacteremia, EOT 08/11, patient should follow-up with his ID at [place] on discharge - Tolerating regular diet but continues to have poor p.o. intake, he was cleared for regular thins by [facility] - Continue Chloraseptic for throat pain - [...] patient should follow-up with his ID at [place] on discharge - Tolerating regular diet but continues to have poor p.o. intake, he was cleared for regular thins by [facility] - Continue Chloraseptic for throat pain - Added for shows lidocaine for throat pain or discomfort - Continue PPI twice daily, will switch to p.o. - Continue Pepcid - Continue amlodipine and carvedilol for hypertension Assessment & Plan (07/23/2025 11:35 AM EDT): -Continue IV vancomycin for MRSA bacteremia, EOT 08/11, patient should follow-up with his ID at [place] on discharge - Tolerating regular diet but continues to have poor p.o. intake, he was cleared for regular thins by [facility] - Continue Chloraseptic for throat pain - [...] patient should follow-up with his ID at [place] on discharge - Tolerating regular diet but continues to have poor p.o. intake, he was cleared for regular thins by [facility] - Continue Chloraseptic for throat pain - Added for shows lidocaine for throat pain or discomfort - Continue PPI twice daily, will switch to p.o. - Continue Pepcid - Continue amlodipine and carvedilol for hypertension Assessment & Plan (07/23/2025 11:35 AM EDT): -Continue IV vancomycin for MRSA bacteremia, EOT 08/11, patient should follow-up with his ID at [place] on discharge - Tolerating regular diet but continues to have poor p.o. intake, he was cleared for regular thins by [facility] - Continue Chloraseptic for throat pain - [...] patient should follow-up with his ID at [place] on discharge - Tolerating regular diet but continues to have poor p.o. intake, he was cleared for regular thins by [facility] - Continue Chloraseptic for throat pain - Added for shows lidocaine for throat pain or discomfort - Continue PPI twice daily, will switch to p.o. - Continue Pepcid - Continue amlodipine and carvedilol for hypertension Assessment & Plan (07/23/2025 11:35 AM EDT): -Continue IV vancomycin for MRSA bacteremia, EOT 08/11, patient should follow-up with his ID at [place] on discharge - Tolerating regular diet but continues to have poor p.o. intake, he was cleared for regular thins by [facility] - Continue Chloraseptic for throat pain - [...] diet to regular thin liquids Will ask [facility] to evaluate for any dysphagia He is complaining of heartburns and chest pain, will get an EKG Continue PPI Ordered Chloraseptic for throat pain Monitor for abdominal distention, nausea vomiting Continue IV vancomycin for MRSA bacteremia, EOT 08/11, patient should follow-up with his ID at [place] on discharge Family was concerned that patient needed colonoscopy, I discussed with GI and there were no plans for colonoscopy inpatient Anticipate he can be discharged in the next 24 hours if he tolerates his diet Encounters Date Type Department Care Team Description 07/21/2025 Travel 07/19/2025 8:25 PM EDT - 07/26/2025 5:22 PM EDT Hospital Encounter MELBA JACOBSON [address] [place] [phone] Darian Pollard MD Troy, MD Asya Corral Selina, MD Addai-Boateng, Hassana, MD Kottarathara, Emeka Khan MD Hypertension, unspecified type (Primary Dx); MRSA bacteremia; Multiple sclerosis (HCC) Discharge Disposition: Penitentiary Facility 07/19/2025 4:00 PM EDT Ancillary Procedure [facility] [address] [place] [phone] Provider, File Room 07/19/2025 3:55 PM EDT Ancillary Procedure [facility] [address] [place] [phone] Provider, File Room 07/19/2025 3:55 PM EDT Ancillary Procedure [facility] [address] [place] [phone] Provider, File Room 07/19/2025 3:50 PM EDT Ancillary Procedure [facility] [address] [place] [phone] Provider, File Room 07/19/2025 3:50 PM EDT Ancillary Procedure [facility] [address] [place] [phone] Provider, File Room 07/19/2025 3:45 PM EDT Ancillary Procedure [facility] [address] [place] [phone] Provider, File Room 07/19/2025 3:45 PM EDT Ancillary Procedure [facility] [address] [place] [phone] Provider, File Room 07/19/2025 3:00 PM EDT Ancillary Procedure [facility] [address] [place] [phone] Provider, File Room 07/19/2025 Orders Only [facility] [address] [facility] [place] [address] Provider, File Room 07/12/2025 Orders Only [facility] [address] [facility] [facility] [place] [address] Provider, File Room from Last 3 Months Social History Tobacco Use Types Packs/Day Years Used Date Smoking Tobacco: Never Assessed [facility] Utilities Answer Date Recorded In the past [...] any time in the past 12 m [facility], were you homeless or living in a senior care (including now)? No 07/21/2025 Sex and Gender [...] to verify the correct patient, procedure, equipment, field support rep and site/side marked as required. Preparation: Patient [...] 4.0 - 11.0 Thou/uL 07/26/2025 10:48 AM [facility] Platelet Count 283 150 - 450 Thou/uL 07/26/2025 10:48 AM [facility] Hemoglobin 8.3(L) 13.0 - 17.7 g/dL 07/26/2025 10:48 AM [facility] Hematocrit 24.6(L) 39.0 - 54.0 % 07/26/2025 10:48 AM [facility] Red Blood Cell Count 2.56(L) 4.50 - 6.20 Mil/uL 07/26/2025 10:48 AM [facility] MCV 96 80 - 100 fL 07/26/2025 10:48 AM [facility] MCH 32.4(H) 27.0 - 31.0 pg 07/26/2025 10:48 AM [facility] MCHC 33.7 30.0 - 36.0 g/dL 07/26/2025 10:48 AM [facility] RDW 15.9(H) 11.5 - 14.5 % 07/26/2025 10:48 AM [facility] MPV 9.9 7.5 - 12.5 fL 07/26/2025 10:48 AM [facility] Blood Blood specimen / Unknown 07/26/2025 10:11 AM EDT 07/26/2025 10:32 AM EDT Emeka Hanson MD LAB BLOOD [place] [address], [address] [phone] * (ABNORMAL) Basic Metabolic Panel (STAT) (07/26/2025 10:11 AM EDT) Only the most recent of8 resultswithin the time period is included. Glucose 114(H) 65 - 99 mg/dL 07/26/2025 11:15 AM [facility] Comment:Fasting: <100 mg/dL, Non-Fasting: <200 mg/dL (ADA 2005) Blood Urea Nitrogen (BUN) 14 8 - 21 mg/dL 07/26/2025 11:15 AM [facility] Creatinine 1.3 0.5 - 1.3 mg/dL 07/26/2025 11:15 AM [facility] eGFR 56(L) >59 07/26/2025 11:15 AM [facility] Comment:CKD-EPI (2020) in mL /min/1.73 sq meters. Sodium 136 136 - 145 mmol/L 07/26/2025 11:15 AM [facility] Potassium 4.2 3.4 - 5.3 mmol/L 07/26/2025 11:15 AM EDT [facility] Chloride 105 98 - 107 mmol/L 07/26/2025 11:15 AM EDT [facility] CO2 25 22 - 33 mmol/L 07/26/2025 11:15 AM EDT [facility] Anion Gap 6(L) 7 - 17 07/26/2025 11:15 AM EDT [facility] Calcium 7.1(L) 8.7 - 10.5 mg/dL 07/26/2025 11:15 AM EDT [facility] BUN/Creatinine Ratio 11 10.0 - 25.0 Ratio 07/26/2025 11:15 AM EDT [facility] Blood Blood specimen / Unknown 07/26/2025 10:11 AM EDT 07/26/2025 10:32 AM EDT Emeka Hanson MD LAB BLOOD ORDERABLES Fi nal Result Performing Organization Address [facility]/[place] [address], [place] [address] * (ABNORMAL) POCT Glucose, Fingerstick (07/26/2025 8:08 AM EDT) Only the most recent of22 resultswithin the time period is included. Pathologist [facility] POC Glucose 105(H) 65 - 99 mg/dL [...] Random 19 mg/L 07/25/2025 10:25 PM EDT [facility] Comment:No reference range e stablished for random levels. Time of Last Dose Information not given 07/25/2025 1:01 PM EDT [facility] Blood Blood specimen / Unknown 07/25/2025 9:23 PM EDT 07/25/2025 9:41 PM EDT us Jack Tamez MD LAB BLOOD ORDERABLES Fi nal Result Performing Organization Address [facility] Co de Phone Number [address] [address], [address] [address] * Phosphorus (07/25/2025 6:41 AM EDT) Only the most recent of7 resultswithin the time period is included. Phosphorus 2.7 2.7 - 4.5 mg/dL 07/25/2025 8:56 AM EDT [facility] Blood Blood specimen / Unknown 07/25/2025 6:41 AM EDT 07/25/2025 7:32 AM EDT Jack Tamez MD LAB BLOOD ORDERABLES Fi nal Result Performing Organization Address [facility] Co de Phone Number [address] [address], [address] [address] * Magnesium (07/25/2025 6:41 AM EDT) Only the most recent of8 resultswithin the time period is included. Magnesium 1.6 1.6 - 2.7 mg/dL 07/25/2025 8:56 AM EDT [facility] Blood Blood specimen / Unknown 07/25/2025 6:41 AM EDT 07/25/2025 7:32 AM EDT us Jack Tamez MD LAB BLOOD ORDERABLES Fi nal Result Performing Organization Address City/[facility]/ZIP Co de Phone Number [address] [address], [address] [address] * (ABNORMAL) ALBUMIN (07/25/2025 6:41 AM EDT) Only the most recent of2 resultswithin the time period is included. Albumin 2.1(L) 3.4 - 4.8 g/dL 07/25/2025 10:43 AM EDT [facility] 07/25/2025 6:41 AM EDT 07/25/2025 7:32 AM EDT us Jack Tamez MD LAB BLOOD ORDERABLES Fi nal Result Performing Organization Address [facility] [place] [address], [address] [address] * (ABNORMAL) Hemoglobin and Hematocrit (07/24/2025 12:57 PM EDT) Only the most recent of2 resultswithin the time period is included. Hematocrit 23.1(L) 39.0 - 54.0 % 07/24/2025 1:27 PM EDT [facility] Hemoglobin 7.7(L) 13.0 - 17.7 g/dL 07/24/2025 1:27 PM EDT [facility] Blood Blood specimen / Unknown 07/24/2025 12:57 PM EDT 07/24/2025 1:17 PM EDT us Jack Tamez MD LAB BLOOD ORDERABLES Fi nal Result Performing Organization Address City/[facility] Co de Phone Number [address] [address], [address] [address] * (ABNORMAL) Calcium, Total (07/24/2025 12:57 PM EDT) Calcium 7.2(L) 8.7 - 10.5 mg/dL 07/24/2025 1:42 PM EDT [facility] Blood Blood specimen / Unknown 07/24/2025 12:57 PM EDT 07/24/2025 1:17 PM EDT us Jack Tamez MD LAB BLOOD ORDERABLES Fi nal Result Performing Organization Address [facility] Co de Phone Number [address] [address], [address] [address] * (ABNORMAL) High Sensitivity Troponin T (Once) (07/23/2025 12:31 PM EDT) Only the most recent of5 resultswithin the time period is included. [facility] High Sensitivity Troponin T 30(H) <23 ng/L 07/23/2025 1:16 PM EDT [facility] Delta (Change) NO CHANGE <3 07/23/2025 1:16 PM EDT [facility] Blood Blood specimen / Unknown 07/23/2025 12:31 PM EDT 07/23/2025 12:43 PM EDT us Jack Tamez MD LAB BLOOD ORDERABLES Fi nal Result Performing Organization Address [facility] Co de Phone Number [address] [address], [address] [address] * ECG 12 lead (STAT) (07/22/2025 8:35 PM EDT) Only the most recent of4 resultswithin the time period is included. [facility] Ventricular rate 98 BPM EKG [facility] Atrial rate 98 BPM EKG [facility] P-R interval 160 ms EKG [facility] QRS duration 86 ms EKG [facility] Q-T interval 392 ms EKG [facility] QTC calculation (Bazett) 501 ms EKG [facility] P axis 61 degrees EKG [facility] R axis 50 degrees EKG [facility] T axis -24 degrees EKG [facility] 07/22/2025 8:35 PM EDT Narrative EKG [facility] - 07/22/2025 8:47 PM EDT Sinus [...] ORDERABLES Final Res ult Performing Organization Address [facility] Co de Phone Number EKG [facility] * (ABNORMAL) Folate Level (07/20/2025 8:00 AM EDT) Only the most recent of2 resultswithin the time period is included. Folate, Serum 4.9(L) >7.2 ng/mL 07/20/2025 10:31 AM EDT [facility] Blood Blood specimen / Unknown 07/20/2025 8:00 AM EDT 07/20/2025 8:33 AM EDT Darian Pollard MD LAB BLOOD ORDERABLES Final Resul t Performing Organization Address [facility] [place] [address], [place] [phone] * (ABNORMAL) Hemoglobin A1c with Estimated Average Glucose (Early AM) (07/20/2025 2:37 AM EDT) Hemoglobin A1C 6.4(H) <5.7 % 07/20/2025 4:24 AM EDT [facility] Comment: A1c% Interpretation 5.7 - 6.0 Increase risk of diabetes 6.1 - 6.4 Higher risk of diabetes > or = 6.5 Consistent with diabetes Diabetes Care, 33(Supp 1):S1-S61, 2010 Estimated Average Glucose 137 mg/dL 07/20/2025 4:24 AM [facility] Blood Blood specimen / Unknown 07/20/2025 2:37 AM EDT 07/20/2025 3:30 AM EDT Darian Pollard MD LAB BLOOD ORDERABLES Final Resul t [address] [address], [address] [address] * (ABNORMAL) Urinalysis with Reflex to Microscopic (07/20/2025 12:15 AM EDT) Color Dark yellow 07/20/2025 2:29 AM [facility] Clarity Cloudy 07/20/2025 2:29 AM [facility] Specific [place] 1.020 1.005 - 1.030 07/20/2025 2:29 AM [facility] pH 6.0 5.0 - 8.0 07/20/2025 2:29 AM [facility] Leukocyte Esterase Trace(A) Negative 07/20/2025 2:29 AM [facility] Nitrite Negative Negative 07/20/2025 2:29 AM [facility] Protein 300(A) NEG^Negative mg/dL 07/20/2025 2:29 AM [facility] Glucose Negative Negative mg/dL 07/20/2025 2:29 AM [facility] Ketones 15(A) NEG^Negative mg/dL 07/20/2025 2:29 AM [facility] Blood Large(A) Negative 07/20/2025 2:29 AM [facility] Bilirubin Small(A) Negative 07/20/2025 2:29 AM [facility] RBC >25(H) 0 - 4 per hpf 07/20/2025 2:29 AM [facility] WBC >25(H) 0 - 4 per hpf 07/20/2025 2:29 AM [facility] Epithelial Cells 2 per hpf 07/20/2025 2:29 AM [facility] Casts >25(H) 0 - 4 per lpf 07/20/2025 2:29 AM EDT [facility] Comment:Casts are hyaline un less otherwise noted. Bacteria Present(A) Absent 07/20/2025 2:29 AM EDT [facility] Comment:Presence of bacteria does not necessarily indicate a UTI. Please correlate with degree of pyuria and presence of clinical symptoms for UTI. Hyaline Casts Present per lpf 07/20/2025 2:29 AM EDT [facility] Urine Urine specimen / Unknown 07/20/2025 12:15 AM EDT 07/20/2025 12:41 AM EDT us Darian Pollard MD URINE ORDERABLES Final Result Performing Organization Address [facility] [place] [address], [place] [address] * (ABNORMAL) Iron and Total Iron Binding Capacity (07/19/2025 10:13 PM EDT) Iron 21(L) 53 - 167 ug/dL 07/19/2025 11:59 PM EDT [facility] UIBC 77(L) 112 - 346 ug/dL 07/19/2025 11:59 PM EDT [facility] Total Iron Binding Capacity 98(L) 100 - 400 ug/dL 07/19/2025 11:59 PM EDT [facility] Iron Sat 21 20 - 50 % 07/19/2025 11:59 PM EDT [facility] 07/19/2025 10:1 3 PM EDT 07/19/2025 10:57 PM EDT us Darian Pollard MD LAB BLOOD ORDERABLES Final Resul t Performing Organization Address [facility] [place] [address], [address] [address] * (ABNORMAL) FERRITIN (07/19/2025 10:13 PM EDT) Ferritin 710(H) 30 - 400 ug/L 07/19/2025 11:59 PM EDT [facility] 07/19/2025 10:1 3 PM EDT 07/19/2025 10:57 PM EDT Darian Pollard MD LAB BLOOD ORDERABLES Final Resul t Performing Organization Address [facility] Co de Phone Number [address] [address], [address] [address] * (ABNORMAL) VITAMIN B12 (07/19/2025 10:13 PM EDT) Vitamin B12 1,380(H) 243 - 894 pg/mL 07/19/2025 11:59 PM EDT [facility] 07/19/2025 10:1 3 PM EDT 07/19/2025 10:57 PM EDT Darian Pollard MD LAB BLOOD ORDERABLES Final Resul t Performing Organization Address [facility] Co de Phone Number [address] [address], [address] [address] * Blood Culture #2 (07/19/2025 9:26 PM EDT) Only the most recent of2 resultswithin the time period is included. Culture Sterile after 5 days 07/25/2025 7:36 AM EDT [facility] Blood (Blood, Peripheral Venipuncture) 07/19/2025 9:26 PM EDT 07/19/2025 10:36 PM EDT Comment:Blood us Ashish Domingo MD LAB BLOOD ORDERABLES Final Res ult Performing Organization Address [facility] Co de Phone Number [facility] [address] [place] [address], [place] * Type and Screen (07/19/2025 9:20 PM EDT) ABO/Rh B POSITIVE 07/19/2025 10:46 PM EDT [facility] Antibody Screen NEGATIVE 07/19/2025 10:46 PM EDT [facility] Specimen Expiration 07/22/2025 07/19/2025 10:46 PM EDT [facility] Blood Bank Comment Second Sample needed for Blood Transfusion 07/19/2025 10:46 PM EDT [facility] Blood Blood specimen / Unknown 07/19/2025 9:20 PM EDT 07/19/2025 9:40 PM EDT Darian Pollard MD BLOOD BANK TEST ORDERABLES Final Result [address] [address], [address] [address] * XR Chest 1 view-Portable (07/19/2025 9:14 [...] bibasilar opacities. Interpreted by: Angelina Elder MD Automatic Edger I personally reviewed the images and the [...] bibasilar opacities. Interpreted by: Angelina Elder MD Automatic Edger I personally reviewed the images and the resident's preliminary report and AGREE with the report as it is now presented ([id number]). us Ashish Domingo MD IMG DIAGNOSTIC IMAGING ORDERAB LES Final Result * (ABNORMAL) Blood Gas with Cooximetry, Venous (07/19/2025 9:04 PM EDT) Respiratory Info VENT 60% 07/19/20 25 9:04 PM [facility] Venous Blood PH 7.36 7.33 - 7.43 07/19/2025 9:31 PM [facility] Venous pCO2 46 35 - 50 mmHG 07/19/2025 9:31 PM [facility] Venous pO2 65(H) 0 - 60 mmHG 07/19/2025 9:31 PM [facility] Venous Total CO2 27 23 - 29 mmol/L 07/19/2025 9:31 PM [facility] Base Excess 0.1 mmol/L 07/19/2025 9:31 PM [facility] Comment:Reference Range: Neg ative 2 to Positive 3 Hemogloblin, Total 9.0(L) 13.0 - 17.7 g/dL 07/19/2025 9:31 PM [facility] O2 Saturation, Venous 91.2 % 9:31 PM [facility] Carboxyhemoglobin 2.9(H) 0.0 - 2.0 % 07/19/2025 9:31 PM EDT [facility] Methemoglobin 0.7 0.4 - 1.5 % 07/19/2025 9:31 PM EDT [facility] Venous O2 Content 11.2 7.2 - 17.2 mL/dL 07/19/2025 9:31 PM EDT [facility] Blood Blood specimen / Unknown 07/19/2025 9:04 PM EDT 07/19/2025 9:18 PM EDT us Darian Pollard MD LAB BLOOD ORDERABLES Final Resul t Performing Organization Address City/[facility]/[place] [address], [place] [address] * ABO Confirmation (07/19/2025 9:04 PM EDT) ABO/Rh B POSITIVE 07/19/2025 10:47 PM EDT [facility] Blood Blood specimen / Unknown 07/19/2025 9:04 PM EDT 07/19/2025 9:52 PM EDT us Darian Pollard MD BLOOD BANK TEST ORDERABLES Final Result Performing Organization Address [facility] [place] [address], [place] [address] * (ABNORMAL) Reticulocyte with Index (07/19/2025 9:04 PM EDT) Reticulocyte Count 1.0 0.7 - 2.0 % 07/19/2025 10:45 PM EDT [facility] Reticulocyte, Absolute 25.8(L) 30.0 - 100.0 Thou/uL 07/19/2025 10:45 PM EDT [facility] Reticulocyte Index 0.6(L) 1.0 - 2.0 % 07/19/2025 10:45 PM EDT [facility] Retic Hemoglobin Content 34.80 28 - 35 pg 07/19/2025 10:45 PM EDT [facility] Immature Reticulocyte Fraction 9.1 2.3 - 15.9 % 07/19/2025 10:45 PM EDT [facility] Blood Blood specimen / Unknown 07/19/2025 9:04 PM EDT 07/19/2025 9:45 PM EDT us Darian Pollard MD LAB BLOOD ORDERABLES Final Resul t Performing Organization Address City[facility] [place] [address], [place] [address] * Red Blood Cell Morphology (07/19/2025 9:04 PM EDT) Normochromic Present 07/19/2025 11:46 PM EDT [facility] Normocytic Present 07/19/2025 11:46 PM EDT [facility] Blood Blood specimen / Unknown 07/19/2025 9:04 PM EDT 07/19/2025 9:45 PM EDT us Darian Pollard MD LAB BLOOD ORDERABLES Final Resul t Performing Organization Address [facility] [place] [address], [place] [address] * (ABNORMAL) High Sensitivity D-Dimer (07/19/2025 9:04 PM EDT) High Sensitivity D-Dimer 664(H) <230 ng/mL DDU 07/19/2025 10:10 PM EDT [facility] Comment: The threshold for exclusion of [...] MD LAB BLOOD ORDERABLES Final Resul t [address] [address], [address] [address] * (ABNORMAL) Complete Blood Count, with Differential (07/19/2025 9:04 PM EDT) White Blood Cell Count 7.9 4.0 - 11.0 Thou/uL 07/19/2025 10:45 PM [facility] Platelet Count 64(L) 150 - 450 Thou/uL 07/19/2025 10:45 PM [facility] Comment:Results verified by smear review. Hemoglobin 8.7(L) 13.0 - 17.7 g/dL 07/19/2025 10:45 PM [facility] Hematocrit 25.7(L) 39.0 - 54.0 % 07/19/2025 10:45 PM [facility] Red Blood Cell Count 2.72(L) 4.50 - 6.20 Mil/uL 07/19/2025 10:45 PM [facility] MCV 95 80 - 100 fL 07/19/2025 10:45 PM [facility] MCH 32.0(H) 27.0 - 31.0 pg 07/19/2025 10:45 PM [facility] MCHC 33.9 30.0 - 36.0 g/dL 07/19/2025 10:45 PM [facility] RDW 15.7(H) 11.5 - 14.5 % 07/19/2025 10:45 PM [facility] MPV 10.6 7.5 - 12.5 fL 07/19/2025 10:45 PM [facility] Immature Platelet Fraction 3.5 1.2 - 8.6 % 07/19/2025 10:45 PM [facility] Neutrophils Auto 83.0 % 07/19/20 11:47 PM [facility] Lymphocytes Auto 9.0 % 07/19/20 11:47 PM EDT [facility] Monocytes Auto 4.0 % 07/19/2025 11:47 PM EDT [facility] Eosinophils Auto 2.0 % 07/19/20 11:47 PM EDT [facility] Immature Granulocytes 2.0 % 07/19/2025 11:47 PM EDT [facility] Abs Neutrophils Auto 6.55 2.00 - 7.50 Thou/uL 07/19/2025 11:47 PM EDT [facility] Abs Lymphocytes Auto 0.71(L) 1.50 - 4.50 Thou/uL 07/19/2025 11:47 PM EDT [facility] Abs Monocytes Auto 0.32 0.20 - 1.50 Thou/uL 07/19/2025 11:47 PM EDT [facility] Abs Eosinophils Auto 0.16 0.00 - 0.70 Thou/uL 07/19/2025 11:47 PM EDT [facility] Abs Immature Granulocytes 0.16(H) 0.00 - 0.10 Thou/uL 07/19/2025 11:47 PM EDT [facility] Blood specimen / Unknown 07/19/2025 9:04 PM EDT 07/19/2025 9:45 PM EDT us Darian Pollard MD LAB [place] [address], [place] [address] * Partial Thromboplastin Time (PTT) (07/19/2025 9:04 PM EDT) Anticoagulant NO ANTI COAGULANT MEDS 07/19/2025 9:05 PM EDT [facility] Partial Thromboplastin Time (PTT) 28 25 - 36 seconds 07/19/2025 10:10 PM EDT [facility] Blood Blood specimen / Unknown 07/19/2025 9:04 PM EDT 07/19/2025 9:45 PM EDT us Darian Pollard MD LAB BLOOD ORDERABLES Final Resul t Performing Organization Address [facility] Co de Phone Number [address] [address], [address] [address] * Protime-INR (AM) (07/19/2025 9:04 PM EDT) Pathologist [facility] Anticoagulant OTHER AGENT OR UNKNOWN 07/19/2025 9:05 PM EDT [facility] Prothrombin Time (PT) 13.4 10.0 - 13.5 seconds 07/19/2025 10:10 PM EDT [facility] INR 1.2 07/19/2025 10:10 PM EDT [facility] Comment:INR Therapeutic Rang es: Standard dose anticoagulant 2.0 to 3.0, High dose anticoagulant 2.5-3.5. Blood Blood specimen / Unknown 07/19/2025 9:04 PM EDT 07/19/2025 9:45 PM EDT us Darian Pollard MD LAB BLOOD ORDERABLES Final Resul t Performing Organization Address [facility] Co de Phone Number [address] [address], [address] [address] * (ABNORMAL) FIBRINOGEN LEVEL (07/19/2025 9:04 PM EDT) Pathologist [facility] Fibrinogen 526(H) 148 - 435 mg/dL 07/19/2025 10:10 PM EDT [facility] Blood Blood specimen / Unknown 07/19/2025 9:04 PM EDT 07/19/2025 9:45 PM EDT us Darian Pollard MD LAB BLOOD ORDERABLES Final Resul t Performing Organization Address [facility] Co de Phone Number [address] [address], [address] [address] * Triglycerides (07/19/2025 9:04 PM EDT) Pathologist [facility] Triglycerides 149 <150 mg/dL 07/19/2025 10:28 PM EDT [facility] 07/19/2025 9:04 PM EDT 07/19/2025 9:45 PM EDT us Darian Pollard MD LAB BLOOD ORDERABLES Final Resul t Performing Organization Address [facility]/ZIP Co de Phone Number [address] [address], [address] [address] * LACTATE DEHYDROGENASE (LDH) (07/19/2025 9:04 PM EDT) Lactate Dehydrogenase (LDH) 203 120 - 260 U/L 07/19/2025 10:28 PM EDT [facility] 07/19/2025 9:04 PM EDT 07/19/2025 9:45 PM EDT us Darian Pollard MD LAB BLOOD ORDERABLES Final Resul t Performing Organization Address [facility] Co de Phone Number [address] [address], [address] [address] * HAPTOGLOBIN (07/19/2025 9:04 PM EDT) Haptoglobin 179 30 - 200 mg/dL 07/19/2025 10:28 PM EDT [facility] Blood Blood specimen / Unknown 07/19/2025 9:04 PM EDT 07/19/2025 9:45 PM EDT us Darian Pollard MD LAB BLOOD ORDERABLES Final Resul t Performing Organization Address [facility] Co de Phone Number [address] [address], [address] [address] * (ABNORMAL) HEPATIC FUNCTION PANEL (07/19/2025 9:04 PM EDT) Alkaline Phosphatase 59 45 - 128 U/L 07/19/2025 10:28 PM EDT [facility] Aspartate Aminotrans (AST) 21 10 - 55 U/L 07/19/2025 10:28 PM EDT [facility] Alanine Aminotrans (ALT) 44 10 - 55 U/L 07/19/2025 10:28 PM EDT [facility] Bilirubin, Total 1.0 0.2 - 1.0 mg/dL 07/19/2025 10:28 PM EDT [facility] Protein, Total 4.4(L) 6.3 - 8.3 g/dL 07/19/2025 10:28 PM EDT [facility] Albumin 2.2(L) 3.4 - 4.8 g/dL 07/19/2025 10:28 PM EDT [facility] Bilirubin, Direct 0.5(H) 0 - 0.2 mg/dL 07/19/2025 10:28 PM EDT [facility] Globulin 2.2 1.5 - 3.9 g/dL 07/19/2025 10:28 PM EDT [facility] Albumin/Globulin Ratio 1.0 1.0 - 3.0 Ratio 07/19/2025 10:28 PM EDT [facility] 07/19/2025 9:04 PM EDT 07/19/2025 9:45 PM EDT us Darian Pollard MD LAB BLOOD ORDERABLES Final Resul t Performing Organization Address [facility]/[place] [address], [place] [address] * Lactic Acid, Plasma (07/19/2025 8:51 PM EDT) Lactic Acid 0.9 0.5 - 1.9 mmol/L 07/19/2025 10:24 PM EDT [facility] Blood Blood specimen / Unknown 07/19/2025 8:51 PM EDT 07/19/2025 9:42 PM EDT us Ashish Domingo MD LAB BLOOD ORDERABLES Final Res ult Performing Organization Address [place]/[facility] [place] [address], [place] [address] * CR Abdomen Archive for Reference only (07/19/2025 3:45 PM EDT) Only the most recent of2 resultswithin the time period is included. Narrative [facility] - 07/19/2025 3:45 PM EDT This study has been auto finalized and does not contain a result. us File Room Provider IMG DIGITIZE FILMS Final Resu lt Performing Organization Address [facility] de Phone Number [place] [phone] * CR Chest Archive for Reference only (07/19/2025 3:45 PM EDT) Narrative [facility] - 07/19/2025 3:45 PM EDT This study has been auto finalized and does not contain a result. us File Room Provider IMG DIGITIZE FILMS Final Resu lt Performing Organization Address [facility] de Phone Number [place] [phone] * CT Abdomen Archive for Reference Only (07/19/2025 3:45 PM EDT) Only the most recent of3 resultswithin the time period is included. [facility] - 07/19/2025 3:45 PM EDT This study has been auto finalized and does not contain a result. us File Room Provider IMG DIGITIZE FILMS Final Resu lt Performing Organization Address [facility] de Phone Number [place] [phone] * CT Chest Archive for Reference Only (07/19/2025 3:44 PM EDT) Only the most recent of2 resultswithin the time period is included. Narrative [facility] - 07/19/2025 3:44 PM EDT This study has been auto finalized and does not contain a result. us File Room Provider IMG DIGITIZE FILMS Final Resu lt Performing Organization Address [facility] de Phone Number [place] [phone] from Last 3 Months Insurance FOR LIFE MEDICARE PART A & B Advance Directives Documents on File Type Date Recorded Patient Punch Out Crew Member Expl anation Advance Directive-Scan 07/20/2025 DECLARATION AND DIRE CTIVE TO PHYSICIANS//DESIGNATION OF HEALTH CARE INTERIOR DESIGN DIRECTOR * Full Code (Latest Code Status on File) Date Activated Date Inactivated Comments 07/19/2025 8:34 PM Healthcare Agents on File Name Relationship Healthcare Agent Relationship Communication David Cheney [facility] paper sales representative 1. Jessika [facility] Care Punch Out Crew Member
== END 2025-08-16 17:46 | disposition home or self-care (01) ==
PROVIDERS: Emergency Provider Emergency Medicine
DX: N31.9 Neuromuscular dysfunction of bladder, unspecified (principal); Z46.6 Encounter for fitting and adjustment of urinary device; Z79.899 Other long term (current) drug therapy
CPT/HCPCS: 76775; 99284

== ENCOUNTER 2025-09-16 13:53 | Outpatient (AMB) | payer MEDICARE, OTHER, SELFPAY ==
--- NOTE | 2025-09-16 14:24 | MHC.OFFVIS ---
Intake Visit Reasons: 4 WK FOLLOW UP CATH CHANGE SPT DISCUSSION Intake Note: patient presents today for: 4w f/u cath change spt discussion urology medications: vitC blood thinners: aspirin Property Manager Required: No Accompanied by: Health Care Proxy Allergies Benzodiazepines (BENZODIAZEPINES) Allergy (Unknown, Verified 10/11/25 14:38) UNKNOWN dalfampridine (From AMPYRA) Allergy (Unknown, Verified 10/11/25 14:38) UNKNOWN duloxetine (From CYMBALTA) Allergy (Unknown, Verified 10/11/25 14:38) UNKNOWN ezetimibe (From ZETIA) Allergy (Unknown, Verified 10/11/25 14:38) UNKNOWN niacin (NIACIN) Allergy (Unknown, Verified 10/11/25 14:38) UNKNOWN pravastatin (PRAVASTATIN) Allergy (Unknown, Verified 10/11/25 14:38) UNKNOWN Hhxqdvk-[id number]-WrW Reductase Inhibitor ([id number]-[id number]-WRM REDUCTASE INHIBITOR) Allergy (Unknown, Verified 10/11/25 14:38) UNKNOWN lorazepam (From ATIVAN) Adverse Reaction (Severe, Verified 10/11/25 14:38) EXCESSIVE SEDATION doxycycline (DOXYCYCLINE) Adverse Reaction (Mild, Verified 10/11/25 14:38) esophogeal iritation methylprednisolone (From SOLU-MEDROL) Adverse Reaction (Mild, Verified 10/11/25 14:38) heartburn ertapenem (From INVANZ) Adverse Reaction (Unknown, Verified 09/16/25 14:26) possible cause of bullous pemphigoid HPI Comments Details: Omero is a pleasant male. He is a patient of Dr. Martin. He seen for the following urologic complaints - neurogenic bladder - recurring UTI with hematuria Discussion for suprapubic tube At this point continue with indwelling Nunez with optimize preventative Neurogenic bladder Lives in a facility Has neurogenic bladder and requires indwelling Nunez catheter Presented to hospital with infection and hematuria Responded to antibiotics On visit today urine is clear Has indwelling catheter Recommendation for vitamin-C with methenamine as preventative Prescription provided Review in 6 months [facility] Medical History Obstructive uropathy MRSA bacteremia Proctitis UTI (urinary tract infection) due to urinary indwelling Nunez catheter Hematuria Steroid dependence EDWARD (acute kidney injury) Bullous pemphigoid Decubitus ulcer of coccygeal region, stage 2 Acute hypotension Sepsis Aspiration pneumonitis Recurrent UTI (urinary tract infection) Hypotonic neurogenic bladder Lytic lesion of bone on x-ray Wound of foot Anemia Septic shock Shoulder pain Constipation Hematuria Multiple sclerosis Depression Diabetes mellitus type 2 in obese Chronic pain syndrome BPH (benign prostatic hyperplasia) Dehydration Chronic renal failure Urinary tract infection Surgical History Hx of removal of cyst Family History Family/Other Heart attack Father Diabetes Social History Household Members: Other Household Members Other:: lives at [facility] on [address] in [place] Housing: Care Home Housing Other:: [facility] Do you presently have visiting nurse or other home services: No Alcohol intake: current Alcohol intake frequency: does not drink Alcohol type: hard liquor Comment: BEDFAST Patient Tobacco Use Status: Former Tobacco user Cigarette Packs Per Day: 1 Advance Directives Date on File: 10/13/20 service: No Current occupational status: retired Review of Systems Const Denies chills and Denies fever(s) Card Reports no additional complaints and Denies syncope Resp Denies cough GI Denies abdominal pain and Denies heartburn Reports as per HPI and Denies change in libido Neuro Denies syncope Psych Denies change in libido Endo Denies change in libido Physical Exam Const General: cooperative, healthy appearing, comfortable and no acute distress Orientation/consciousness: patient oriented x3 HEENT Face and sinus: Yes normal facial exam Mouth: moist mucous membranes Neck Neck: Yes normal visual inspection, Yes full ROM and Yes trachea midline Chest Chest palpation & inspection: normal inspection of the chest Resp Effort & Inspection: normal respiratory effort, able to speak in complete sentences and no respiratory distress GI Inspection: Yes normal to inspection Back/Spine/Pelvis Cervical Spine: normal cervical lordosis Thoracic/Lumbar Spine: thoracic and lumbar spine normal to inspection Skin General skin exam: no rashes or lesions noted Neuro General: patient oriented x3, gait normal, tone normal and moves all extremities Extrem General: Yes normal to inspection and Yes capillary refill normal Assessment & Plan Assessment & Plan (1) Chronic indwelling Nunez catheter: Code(s): Z97.8 - Presence of other specified devices Category: Medical (2) Neurogenic bladder: Code(s): N31.9 - Neuromuscular dysfunction of bladder, unspecified Category: Medical Plan Continue with Nnuez catheter Minimal UTI since last visit Six-month follow-up Patient Instructions: This note is constructed using voice recognition software. While every effort has been made to ensure accuracy tooth cutter contact wheel errors may have been included. Imaging studies, laboratory and physical exam results were discussed and reviewed in detail. No major barriers to patient understanding were identified. An opportunity to ask questions regarding the treatment plan was provided. All questions were answered. The patient expressed understanding and agreement with the above treatment plan. The patient is aware they should contact our office by phone for worsening of their current condition or the appearance of new urologic symptoms. Compliance is encouraged with any medications and followup testing that is ordered. It is a privilege to participate in the urologic care of your patient. If you have any questions or concerns regarding treatment for the above conditions, or other urologic issues, please do not hesitate to contact me. The office telephone contact is [phone]. Sincerely, Dr Miguel Angel Bartholomew MD, [facility] - Urology Compassionate Specialist Care for the Genitourinary System Coding Level of Care Code Est Pt Level 3 (42315) Add On Problem Visit Only Diagnoses Chronic indwelling Nunez catheter Z97.8 Neurogenic bladder N31.9
--- OUTSIDE RECORDS SUMMARY | 2025-09-16 16:19 | XMS_ITS | Clinical Summary ---
Author Organization [facility] Address [address] [place] [address] Care Team Providers Care Informatics Educator Name Role Phone Unavailable Primary Care Provider [...] (10 mg total) by mouth daily. 5 Active benzocaine-ment hol (CHLORASEPTIC) 6-10 MG lozengeIndicati ons:Multiple sclerosis Apply 1 lozenge to the mouth or throat 4 (four) times a day. 5 Active bisacodyl (DULCOLAX) 10 MG suppositoryIndi cations:Multipl e sclerosis Insert 1 suppository (10 mg total) into the rectum daily as needed for constipation (if no bowel movement by day 2). Active carboxymethylce llulose (REFRESH PLUS) 0.5 % SolutionIndicat ions:Multiple sclerosis Administer 1 drop to both eyes 4 (four) times a day as needed for dry eyes. Active carvedilol (COREG) 12.5 MG tabletIndicatio ns:Hypertension , unspecified type Take 1 tablet (12.5 mg total) by mouth 2 (two) times a day with meals. Active famotidine (PEPCID) 20 MG tabletIndicatio ns:Multiple sclerosis Take 1 tablet (20 mg total) by mouth daily. Active folic acid (FOLVITE) 1 MG tabletIndicatio ns:Multiple sclerosis Take 1 tablet (1 mg total) by mouth daily. Active gabapentin (NEURONTIN) 300 MG capsuleIndicati ons:Multiple sclerosis Take 1 capsule (300 mg total) by mouth 3 (three) times a day. Active hydrocerin (EUCERIN) creamIndication s:Multiple sclerosis Apply topically 2 (two) times a day. Active lactulose (ENULOSE) 10 gm/15 mL solutionIndicat ions:Multiple sclerosis Take 30 mL (20 g total) by mouth daily as needed (if no bowel movment by day 3). Active lidocaine (XYLOCAINE) 2 % solutionIndicat ions:Multiple sclerosis Take 5 mL by mouth 3 (three) times a day as needed for mild pain. Active miconazole (ZEASORB-AF) 2 % powderIndicatio ns:Multiple sclerosis Apply topically 2 (two) times a day. Active multivitamin with minerals Tab tabletIndicatio ns:Multiple sclerosis Take 1 tablet by mouth daily. Active polyethylene glycol (miraLAx) 17 g packetIndicatio ns:Multiple sclerosis Take 1 packet (17 g total) by mouth daily. Active predniSONE (DELTASONE) 2.5 MG tabletIndicatio ns:Multiple sclerosis Take 1 tablet (2.5 mg total) by mouth every morning with breakfast. With food. Active ramelteon (ROZEREM) 8 MG tabletIndicatio ns:Multiple sclerosis Take 1 tablet (8 mg total) by mouth nightly as needed for sleep. Active senna-docusate (SENNA-S) 8.6-50 MGIndications:M ultiple sclerosis Take 2 tablets by mouth nightly. Active simethicone (MYLICON) 40 MG/0.6ML dropsIndication s:Multiple sclerosis Take 1.2 mL (80 mg total) by mouth 4 times daily (every 6 hours) as needed for flatulence. 5 Active Active Problems Problem Noted Date Diagnosed Date [...] patient should follow-up with his ID at [place] on discharge - Tolerating regular diet but continues to have poor p.o. intake, he was cleared for regular thins by DOCTOR OF AUDIOLOGY - Continue Chloraseptic for throat pain - Added for shows lidocaine for throat pain or discomfort - Continue PPI twice daily, will switch to p.o. - Continue Pepcid - Continue amlodipine and carvedilol for hypertension Assessment & Plan (07/23/2025 11:35 AM EDT): -Continue IV vancomycin for MRSA bacteremia, EOT 08/11, patient should follow-up with his ID at [place] on discharge - Tolerating regular diet but continues to have poor p.o. intake, he was cleared for regular thins by DOCTOR OF AUDIOLOGY - Continue Chloraseptic for throat pain - [...] patient should follow-up with his ID at [place] on discharge - Tolerating regular diet but continues to have poor p.o. intake, he was cleared for regular thins by DOCTOR OF AUDIOLOGY - Continue Chloraseptic for throat pain - Added for shows lidocaine for throat pain or discomfort - Continue PPI twice daily, will switch to p.o. - Continue Pepcid - Continue amlodipine and carvedilol for hypertension Assessment & Plan (07/23/2025 11:35 AM EDT): -Continue IV vancomycin for MRSA bacteremia, EOT 08/11, patient should follow-up with his ID at [place] on discharge - Tolerating regular diet but continues to have poor p.o. intake, he was cleared for regular thins by DOCTOR OF AUDIOLOGY - Continue Chloraseptic for throat pain - [...] patient should follow-up with his ID at [place] on discharge - Tolerating regular diet but continues to have poor p.o. intake, he was cleared for regular thins by DOCTOR OF AUDIOLOGY - Continue Chloraseptic for throat pain - Added for shows lidocaine for throat pain or discomfort - Continue PPI twice daily, will switch to p.o. - Continue Pepcid - Continue amlodipine and carvedilol for hypertension Assessment & Plan (07/23/2025 11:35 AM EDT): -Continue IV vancomycin for MRSA bacteremia, EOT 08/11, patient should follow-up with his ID at [place] on discharge - Tolerating regular diet but continues to have poor p.o. intake, he was cleared for regular thins by DOCTOR OF AUDIOLOGY - Continue Chloraseptic for throat pain - [...] patient should follow-up with his ID at [place] on discharge - Tolerating regular diet but continues to have poor p.o. intake, he was cleared for regular thins by DOCTOR OF AUDIOLOGY - Continue Chloraseptic for throat pain - Added for shows lidocaine for throat pain or discomfort - Continue PPI twice daily, will switch to p.o. - Continue Pepcid - Continue amlodipine and carvedilol for hypertension Assessment & Plan (07/23/2025 11:35 AM EDT): -Continue IV vancomycin for MRSA bacteremia, EOT 08/11, patient should follow-up with his ID at [place] on discharge - Tolerating regular diet but continues to have poor p.o. intake, he was cleared for regular thins by DOCTOR OF AUDIOLOGY - Continue Chloraseptic for throat pain - [...] patient should follow-up with his ID at [place] on discharge - Tolerating regular diet but continues to have poor p.o. intake, he was cleared for regular thins by DOCTOR OF AUDIOLOGY - Continue Chloraseptic for throat pain - Added for shows lidocaine for throat pain or discomfort - Continue PPI twice daily, will switch to p.o. - Continue Pepcid - Continue amlodipine and carvedilol for hypertension Assessment & Plan (07/23/2025 11:35 AM EDT): -Continue IV vancomycin for MRSA bacteremia, EOT 08/11, patient should follow-up with his ID at [place] on discharge - Tolerating regular diet but continues to have poor p.o. intake, he was cleared for regular thins by DOCTOR OF AUDIOLOGY - Continue Chloraseptic for throat pain - [...] diet to regular thin liquids Will ask DOCTOR OF AUDIOLOGY to evaluate for any dysphagia He is complaining of heartburns and chest pain, will get an EKG Continue PPI Ordered Chloraseptic for throat pain Monitor for abdominal distention, nausea vomiting Continue IV vancomycin for MRSA bacteremia, EOT 08/11, patient should follow-up with his ID at [place] on discharge Family was concerned that patient needed colonoscopy, I discussed with GI and there were no plans for colonoscopy inpatient Anticipate he can be discharged in the next 24 hours if he tolerates his diet Encounters Date Type Department Care Team Description 07/21/2025 Travel 07/19/2025 8:25 PM EDT - 07/26/2025 5:22 PM EDT Hospital Encounter [facility] [address] [place] [address] Pollard, Darian, MD Jose L, MD Asya Corral Selina, MD Addai-Boateng, Hassana, MD Kottarathara, Mathew J, MD Hypertension, unspecified type (Primary Dx); MRSA bacteremia; Multiple sclerosis (HCC) Discharge Disposition: Shelter Facility 07/19/2025 4:00 PM EDT Ancillary Procedure [facility] [address] [facility] [place] [address] Provider, File Room 07/19/2025 3:55 PM EDT Ancillary Procedure [facility] [address] [place] [phone] Provider, File Room 07/19/2025 3:55 PM EDT Ancillary Procedure [facility] [address] [place] [address], [place] [address] Provider, File Room 07/19/2025 3:50 PM EDT Ancillary Procedure [facility] [address] [place] [address], [place] [address] Provider, File Room 07/19/2025 3:50 PM EDT Ancillary Procedure [facility] [address] [place] [address], [place] [address] Provider, File Room 07/19/2025 3:45 PM EDT Ancillary Procedure [facility] [address] [place] [address], [place] [address] Provider, File Room 07/19/2025 3:45 PM EDT Ancillary Procedure [facility] [address] [place] [address], [place] [address] Provider, File Room 07/19/2025 3:00 PM EDT Ancillary Procedure [facility] [address] [place] [phone] Provider, File Room 07/19/2025 Orders Only [facility] [address] [place] [phone] Provider, File Room 07/12/2025 Orders Only [facility] [address] [place] [phone] Provider, File Room from Last 3 Months Social History Tobacco Use Types Packs/Day Years Used Date Smoking Tobacco: Never Assessed [facility] Utilities Answer Date Recorded In the past 12 months has [employer] electric, gas, oil, or water company threatened to shut off services in your home? No 07/21/2025 Hunger Vital Sign Answer Date Recorded Within the past 12 months, y ou worried that your food would run out before you got the money to buy more. Never true 07/21/20 Within the past 12 months, t he [...] any time in the past 12 m [facility], were you homeless or living in a retirement (including now)? No 07/21/2025 Sex and Gender [...] Vaccine (1 of 2) 1997 RSV Vaccine 50 years and older and Patients (1 - [...] 10:13 PM EDT VANCOMYCIN LEVEL-RANDOM Timed 07/19/20 25 10:13 PM EDT BLOOD CULTURE (HOSP LAB) [...] LVOT mn grad 2.1 mmHg LVOT peak caiite mean 0.9 m/s LVOT peak caitie 0.9 [...] Line Insertion (07/26/2025 12:09 PM EDT) Yvrose Fernandez RN - 07/26/2025 12:09 PM EDT Yvrose [...] to verify the correct patient, procedure, equipment, marketing support assistant and site/side marked as required. Preparation: Patient [...] 4.0 - 11.0 Thou/uL 07/26/2025 10:48 AM [facility] Platelet Count 283 150 - 450 Thou/uL 07/26/2025 10:48 AM [facility] Hemoglobin 8.3(L) 13.0 - 17.7 g/dL 07/26/2025 10:48 AM [facility] Hematocrit 24.6(L) 39.0 - 54.0 % 07/26/2025 10:48 AM [facility] Red Blood Cell Count 2.56(L) 4.50 - 6.20 Mil/uL 07/26/2025 10:48 AM [facility] MCV 96 80 - 100 fL 07/26/2025 10:48 AM [facility] MCH 32.4(H) 27.0 - 31.0 pg 07/26/2025 10:48 AM [facility] MCHC 33.7 30.0 - 36.0 g/dL 07/26/2025 10:48 AM [facility] RDW 15.9(H) 11.5 - 14.5 % 07/26/2025 10:48 AM [facility] MPV 9.9 7.5 - 12.5 fL 07/26/2025 10:48 AM [facility] Blood Blood specimen / Unknown 07/26/2025 10:11 AM EDT 07/26/2025 10:32 AM EDT Emeka Hanson MD LAB BLOOD ORDERABLES Fi nal Result [facility] [address] [place] [address], [facility] [address] [place] [address] * (ABNORMAL) Basic Metabolic Panel (STAT) (07/26/2025 10:11 AM EDT) Only the most recent of8 resultswithin the time period is included. Glucose 114(H) 65 - 99 mg/dL 07/26/2025 11:15 AM [facility] Comment:Fasting: <100 mg/dL, Non-Fasting: <200 mg/dL (ADA 2004) Blood Urea Nitrogen (BUN) 14 8 - 21 mg/dL 07/26/2025 11:15 AM [facility] Creatinine 1.3 0.5 - 1.3 mg/dL 07/26/2025 11:15 AM [facility] eGFR 56(L) >59 07/26/2025 11:15 AM [facility] Comment:CKD-EPI (2020) in mL /min/1.73 sq meters. Sodium 136 136 - 145 mmol/L 07/26/2025 11:15 AM [facility] Potassium 4.2 3.4 - 5.3 mmol/L 07/26/2025 11:15 AM [facility] Chloride 105 98 - 107 mmol/L 07/26/2025 11:15 AM [facility] CO2 25 22 - 33 mmol/L 07/26/2025 11:15 AM [facility] Anion Gap 6(L) 7 - 17 07/26/2025 11:15 AM [facility] Calcium 7.1(L) 8.7 - 10.5 mg/dL 07/26/2025 11:15 AM [facility] BUN/Creatinine Ratio 11 10.0 - 25.0 Ratio 07/26/2025 11:15 AM EDT [facility] Blood Blood specimen / Unknown 07/26/2025 10:11 AM EDT 07/26/2025 10:32 AM EDT Emeka Hanson MD LAB BLOOD ORDERABLES Fi nal Result Performing Organization Address [facility] Co de Phone Number [address] [address], [address] [address] * (ABNORMAL) POCT Glucose, Fingerstick (07/26/2025 8:08 AM EDT) Only the most recent of22 resultswithin the time period is included. POC Glucose 105(H) 65 - 99 mg/dL 07/27/2025 9:04 AM EDT Blood specimen / Unknown 07/26/2025 8:08 AM EDT 07/27/2025 9:04 AM EDT Darian Pollard MD POINT OF CARE TEST ORDERABLES Fi nal Result Performing Organization Address [facility] Co de Phone Number HOSPITAL LAB See Below * Vancomycin Level, Random (07/25/2025 9:23 PM EDT) Only the most recent of6 resultswithin the time period is included. Vancomycin, Random 19 mg/L 07/25/2025 10:25 PM EDT [facility] Comment:No reference range e stablished for random levels. Time of Last Dose Information not given 07/25/2025 1:01 PM EDT [facility] Blood Blood specimen / Unknown 07/25/2025 9:23 PM EDT 07/25/2025 9:41 PM EDT Jack Tamez MD LAB BLOOD ORDERABLES Fi nal Result Performing Organization Address [facility] Co de Phone Number [address] [address], [address] [address] * Phosphorus (07/25/2025 6:41 AM EDT) Only the most recent of7 resultswithin the time period is included. Phosphorus 2.7 2.7 - 4.5 mg/dL 07/25/2025 8:56 AM EDT [facility] Blood Blood specimen / Unknown 07/25/2025 6:41 AM EDT 07/25/2025 7:32 AM EDT us Jack Tamez MD LAB BLOOD ORDERABLES Fi nal Result Performing Organization Address [facility] de Phone Number [address] [address], [address] [address] * Magnesium (07/25/2025 6:41 AM EDT) Only the most recent of8 resultswithin the time period is included. Magnesium 1.6 1.6 - 2.7 mg/dL 07/25/2025 8:56 AM EDT [facility] Blood Blood specimen / Unknown 07/25/2025 6:41 AM EDT 07/25/2025 7:32 AM EDT us Jack Tamez MD LAB BLOOD ORDERABLES Fi nal Result Performing Organization Address [facility] de Phone Number [address] [address], [address] [address] * (ABNORMAL) ALBUMIN (07/25/2025 6:41 AM EDT) Only the most recent of2 resultswithin the time period is included. Albumin 2.1(L) 3.4 - 4.8 g/dL 07/25/2025 10:43 AM EDT [facility] 07/25/2025 6:41 AM EDT 07/25/2025 7:32 AM EDT us Jack Tamez MD LAB BLOOD ORDERABLES Fi nal Result Performing Organization Address City/[facility]/ZIP Co de Phone Number [address] [address], [address] [address] * (ABNORMAL) Hemoglobin and Hematocrit (07/24/2025 12:57 PM EDT) Only the most recent of2 resultswithin the time period is included. [facility] Hematocrit 23.1(L) 39.0 - 54.0 % 07/24/2025 1:27 PM EDT [facility] Hemoglobin 7.7(L) 13.0 - 17.7 g/dL 07/24/2025 1:27 PM EDT [facility] Blood Blood specimen / Unknown 07/24/2025 12:57 PM EDT 07/24/2025 1:17 PM EDT us Jack Tamez MD LAB BLOOD ORDERABLES Fi nal Result Performing Organization Address City/[facility]/[place] [address], [address] [address] * (ABNORMAL) Calcium, Total (07/24/2025 12:57 PM EDT) [facility] Calcium 7.2(L) 8.7 - 10.5 mg/dL 07/24/2025 1:42 PM EDT [facility] Blood Blood specimen / Unknown 07/24/2025 12:57 PM EDT 07/24/2025 1:17 PM EDT us Jack Tamez MD LAB BLOOD ORDERABLES Fi nal Result Performing Organization Address City/[facility]/[place]IP [place] [address], [address] [address] * (ABNORMAL) High Sensitivity Troponin T (Once) (07/23/2025 12:31 PM EDT) Only the most recent of5 resultswithin the time period is included. [facility] High Sensitivity Troponin T 30(H) <23 ng/L 07/23/2025 1:16 PM EDT [facility] Delta (Change) NO CHANGE <3 07/23/2025 1:16 PM EDT [facility] Blood Blood specimen / Unknown 07/23/2025 12:31 PM EDT 07/23/2025 12:43 PM EDT Jack Tamez MD LAB BLOOD ORDERABLES Fi nal Result [address] [address], [address] [address] * ECG 12 lead (STAT) (07/22/2025 8:35 PM EDT) Only the most recent of4 resultswithin the time period is included. Ventricular rate 98 BPM EKG [facility] Atrial rate 98 BPM EKG [facility] P-R interval 160 ms EKG [facility] QRS duration 86 ms EKG [facility] Q-T interval 392 ms EKG [facility] QTC calculation (Bazett) 501 ms EKG [facility] P axis 61 degrees EKG [facility] R axis 50 degrees EKG [facility] T axis -24 degrees EKG [facility] 07/22/2025 8:35 PM EDT Narrative EKG [facility] - 07/22/2025 8:47 PM EDT Sinus rhythm [...] significant change was found Confirmed by MD Eusebio, Sg ([id number]) on 07/22/2025 8:47:19 PM us Germaine Williamson APRN ECG ORDERABLES Final Res ult Performing Organization Address City/[facility] Co de Phone Number EKG [facility] * (ABNORMAL) Folate Level (07/20/2025 8:00 AM EDT) Only the most recent of2 resultswithin the time period is included. Folate, Serum 4.9(L) >7.2 ng/mL 07/20/2025 10:31 AM EDT [facility] Blood Blood specimen / Unknown 07/20/2025 8:00 AM EDT 07/20/2025 8:33 AM EDT us Darian Pollard MD LAB BLOOD ORDERABLES Final Resul t Performing Organization Address [facility] [place] [address], [place] [address] * (ABNORMAL) Hemoglobin A1c with Estimated Average Glucose (Early AM) (07/20/2025 2:37 AM EDT) [facility] Hemoglobin A1C 6.4(H) <5.7 % 07/20/2025 4:24 AM EDT [facility] Comment: A1c% Interpretation 5.7 - 6.0 Increase risk of diabetes 6.1 - 6.4 Higher risk of diabetes > or = 6.5 Consistent with diabetes Diabetes Care, 33(Supp 1):S1-S61, 2009 Estimated Average Glucose 137 mg/dL 07/20/2025 4:24 AM EDT [facility] Blood Blood specimen / Unknown 07/20/2025 2:37 AM EDT 07/20/2025 3:30 AM EDT us Darian Pollard MD LAB BLOOD ORDERABLES Final Resul t Performing Organization Address [facility] [place] [address], [place] [facility] [address] [place] [address] * (ABNORMAL) Urinalysis with Reflex to Microscopic (07/20/2025 12:15 AM EDT) Color Dark yellow 07/20/2025 2:29 AM [facility] Clarity Cloudy 07/20/2025 2:29 AM [facility] Specific [place] 1.020 1.005 - 1.030 07/20/2025 2:29 AM [facility] pH 6.0 5.0 - 8.0 07/20/2025 2:29 AM [facility] Leukocyte Esterase Trace(A) Negative 07/20/2025 2:29 AM [facility] Nitrite Negative Negative 07/20/2025 2:29 AM [facility] Protein 300(A) NEG^Negative mg/dL 07/20/2025 2:29 AM [facility] Glucose Negative Negative mg/dL 07/20/2025 2:29 AM [facility] Ketones 15(A) NEG^Negative mg/dL 07/20/2025 2:29 AM [facility] Blood Large(A) Negative 07/20/2025 2:29 AM [facility] Bilirubin Small(A) Negative 07/20/2025 2:29 AM [facility] RBC >25(H) 0 - 4 per hpf 07/20/2025 2:29 AM [facility] WBC >25(H) 0 - 4 per hpf 07/20/2025 2:29 AM [facility] Epithelial Cells 2 per hpf 07/20/2025 2:29 AM [facility] Casts >25(H) 0 - 4 per lpf 07/20/2025 2:29 AM [facility] Comment:Casts are hyaline un less otherwise noted. Bacteria Present(A) Absent 07/20/2025 2:29 AM [facility] Comment:Presence of bacteria does not necessarily indicate a UTI. Please correlate with degree of pyuria and presence of clinical symptoms for UTI. Hyaline Casts Present per lpf 07/20/2025 2:29 AM [facility] Urine Urine specimen / Unknown 07/20/2025 12:15 AM EDT 07/20/2025 12:41 AM EDT us Darian Pollard MD URINE ORDERABLES Final Result Performing Organization Address City/[facility]/ZIP Co de Phone Number [address] [address], [address] [address] * (ABNORMAL) Iron and Total Iron Binding Capacity (07/19/2025 10:13 PM EDT) Iron 21(L) 53 - 167 ug/dL 07/19/2025 11:59 PM EDT [facility] UIBC 77(L) 112 - 346 ug/dL 07/19/2025 11:59 PM EDT [facility] Total Iron Binding Capacity 98(L) 100 - 400 ug/dL 07/19/2025 11:59 PM EDT [facility] Iron Sat 21 20 - 50 % 07/19/2025 11:59 PM EDT [facility] 07/19/2025 10:1 3 PM EDT 07/19/2025 10:57 PM EDT us Darian Pollard MD LAB BLOOD ORDERABLES Final Resul t Performing Organization Address City/[facility]/ZIP Co de Phone Number [address] [address], [address] [address] * (ABNORMAL) FERRITIN (07/19/2025 10:13 PM EDT) Ferritin 710(H) 30 - 400 ug/L 07/19/2025 11:59 PM EDT [facility] 07/19/2025 10:1 3 PM EDT 07/19/2025 10:57 PM EDT us Darian Pollard MD LAB BLOOD ORDERABLES Final Resul t Performing Organization Address City/[facility]/ZIP Co de Phone Number [address] [address], [address] [address] * (ABNORMAL) VITAMIN B12 (07/19/2025 10:13 PM EDT) Vitamin B12 1,380(H) 243 - 894 pg/mL 07/19/2025 11:59 PM EDT [facility] 07/19/2025 10:1 3 PM EDT 07/19/2025 10:57 PM EDT Darian Pollard MD LAB BLOOD ORDERABLES Final Resul t Performing Organization Address City/[facility]/ZIP Co de Phone Number [address] [address], [address] [address] * Blood Culture #2 (07/19/2025 9:26 PM EDT) Only the most recent of2 resultswithin the time period is included. Culture Sterile after 5 days 07/25/2025 7:36 AM EDT [facility] Blood (Blood, Peripheral Venipuncture) 07/19/2025 9:26 PM EDT 07/19/2025 10:36 PM EDT Comment:Blood us Ashish Domingo MD LAB BLOOD ORDERABLES Final Res ult Performing Organization Address City/[facility]/ZIP Co de Phone Number [facility] [address] [place] [address], * Type and Screen (07/19/2025 9:20 PM EDT) ABO/Rh B POSITIVE 07/19/2025 10:46 PM EDT [facility] Antibody Screen NEGATIVE 07/19/2025 10:46 PM EDT [facility] Specimen Expiration 07/22/2025 07/19/2025 10:46 PM EDT [facility] Blood Bank Comment Second Sample needed for Blood Transfusion 07/19/2025 10:46 PM EDT [facility] Blood Blood specimen / Unknown 07/19/2025 9:20 PM EDT 07/19/2025 9:40 PM EDT Darian Pollard MD BLOOD BANK TEST ORDERABLES Final Result [facility] [address] [place] [address], [facility] [address] [facility] [place] [address] * XR Chest 1 view-Portable (07/19/2025 9:14 [...] bibasilar opacities. Interpreted by: Angelina Elder MD Vice President Of Talent Acquisition I personally reviewed the images and the [...] bibasilar opacities. Interpreted by: Angelina Elder MD Vice President Of Talent Acquisition I personally reviewed the images and the resident's preliminary report and AGREE with the report as it is now presented ([id number]). us Ashish Domingo MD IMG DIAGNOSTIC IMAGING ORDERAB LES Final Result * (ABNORMAL) Blood Gas with Cooximetry, Venous (07/19/2025 9:04 PM EDT) Respiratory Info VENT 60% 07/19/20 9:04 PM EDT [facility] Venous Blood PH 7.36 7.33 - 7.43 07/19/2025 9:31 PM [facility] Venous pCO2 46 35 - 50 mmHG 07/19/2025 9:31 PM [facility] Venous pO2 65(H) 0 - 60 mmHG 07/19/2025 9:31 PM [facility] Venous Total CO2 27 23 - 29 mmol/L 07/19/2025 9:31 PM [facility] Base Excess 0.1 mmol/L 07/19/2025 9:31 PM [facility] Comment:Reference Range: Neg ative 2 to Positive 3 Hemogloblin, Total 9.0(L) 13.0 - 17.7 g/dL 07/19/2025 9:31 PM [facility] O2 Saturation, Venous 91.2 % 9:31 PM [facility] Carboxyhemoglobin 2.9(H) 0.0 - 2.0 % 07/19/2025 9:31 PM [facility] Methemoglobin 0.7 0.4 - 1.5 % 07/19/2025 9:31 PM [facility] Venous O2 Content 11.2 7.2 - 17.2 mL/dL 07/19/2025 9:31 PM [facility] Blood Blood specimen / Unknown 07/19/2025 9:04 PM EDT 07/19/2025 9:18 PM EDT us Darian Pollard MD LAB BLOOD ORDERABLES Final Resul t Performing Organization Address [facility] Co de Phone Number [address] [address], [address] [address] * ABO Confirmation (07/19/2025 9:04 PM EDT) ABO/Rh B POSITIVE 07/19/2025 10:47 PM EDT [facility] Blood Blood specimen / Unknown 07/19/2025 9:04 PM EDT 07/19/2025 9:52 PM EDT us Darian Pollard MD BLOOD BANK TEST ORDERABLES Final Result Performing Organization Address [facility] [place] [address], [address] [address] * (ABNORMAL) Reticulocyte with Index (07/19/2025 9:04 PM EDT) Reticulocyte Count 1.0 0.7 - 2.0 % 07/19/2025 10:45 PM EDT [facility] Reticulocyte, Absolute 25.8(L) 30.0 - 100.0 Thou/uL 07/19/2025 10:45 PM EDT [facility] Reticulocyte Index 0.6(L) 1.0 - 2.0 % 07/19/2025 10:45 PM EDT [facility] Retic Hemoglobin Content 34.80 28 - 35 pg 07/19/2025 10:45 PM EDT [facility] Immature Reticulocyte Fraction 9.1 2.3 - 15.9 % 07/19/2025 10:45 PM EDT [facility] Blood Blood specimen / Unknown 07/19/2025 9:04 PM EDT 07/19/2025 9:45 PM EDT us Darian Pollard MD LAB BLOOD ORDERABLES Final Resul t Performing Organization Address City/[facility] Co de Phone Number [address] [address], [address] [address] * Red Blood Cell Morphology (07/19/2025 9:04 PM EDT) [facility] Normochromic Present 07/19/2025 11:46 PM EDT [facility] Normocytic Present 07/19/2025 11:46 PM EDT [facility] Blood Blood specimen / Unknown 07/19/2025 9:04 PM EDT 07/19/2025 9:45 PM EDT us Darian Pollard MD LAB BLOOD ORDERABLES Final Resul t Performing Organization Address [facility] Co de Phone Number [address] [address], [address] [address] * (ABNORMAL) High Sensitivity D-Dimer (07/19/2025 9:04 PM EDT) [facility] High Sensitivity D-Dimer 664(H) <230 ng/mL DDU 07/19/2025 10:10 PM EDT [facility] Comment: The threshold for exclusion of venous [...] ORDERABLES Final Resul t Performing Organization Address [facility]/ZIP Co de Phone Number [address] [address], [address] [address] * (ABNORMAL) Complete Blood Count, with Differential (07/19/2025 9:04 PM EDT) [facility] White Blood Cell Count 7.9 4.0 - 11.0 Thou/uL 07/19/2025 10:45 PM [facility] Platelet Count 64(L) 150 - 450 Thou/uL 07/19/2025 10:45 PM [facility] Comment:Results verified by smear review. Hemoglobin 8.7(L) 13.0 - 17.7 g/dL 07/19/2025 10:45 PM [facility] Hematocrit 25.7(L) 39.0 - 54.0 % 07/19/2025 10:45 PM [facility] Red Blood Cell Count 2.72(L) 4.50 - 6.20 Mil/uL 07/19/2025 10:45 PM [facility] MCV 95 80 - 100 fL 07/19/2025 10:45 PM [facility] MCH 32.0(H) 27.0 - 31.0 pg 07/19/2025 10:45 PM [facility] MCHC 33.9 30.0 - 36.0 g/dL 07/19/2025 10:45 PM [facility] RDW 15.7(H) 11.5 - 14.5 % 07/19/2025 10:45 PM [facility] MPV 10.6 7.5 - 12.5 fL 07/19/2025 10:45 PM [facility] Immature Platelet Fraction 3.5 1.2 - 8.6 % 07/19/2025 10:45 PM [facility] Neutrophils Auto 83.0 % 07/19/20 11:47 PM [facility] Lymphocytes Auto 9.0 % 07/19/20 11:47 PM [facility] Monocytes Auto 4.0 % 07/19/2025 11:47 PM [facility] Eosinophils Auto 2.0 % 07/19/20 11:47 PM [facility] Immature Granulocytes 2.0 % 07/19/2025 11:47 PM [facility] Abs Neutrophils Auto 6.55 2.00 - 7.50 Thou/uL 07/19/2025 11:47 PM [facility] Abs Lymphocytes Auto 0.71(L) 1.50 - 4.50 Thou/uL 07/19/2025 11:47 PM EDT [facility] Abs Monocytes Auto 0.32 0.20 - 1.50 Thou/uL 07/19/2025 11:47 PM EDT [facility] Abs Eosinophils Auto 0.16 0.00 - 0.70 Thou/uL 07/19/2025 11:47 PM EDT [facility] Abs Immature Granulocytes 0.16(H) 0.00 - 0.10 Thou/uL 07/19/2025 11:47 PM EDT [facility] Blood specimen / Unknown 07/19/2025 9:04 PM EDT 07/19/2025 9:45 PM EDT us Darian Pollrad MD LAB BLOOD ORDERABLES Final Resul t Performing Organization Address City/[facility] [place] [address], [place] [address] * Partial Thromboplastin Time (PTT) (07/19/2025 9:04 PM EDT) Anticoagulant NO ANTI COAGULANT MEDS 07/19/2025 9:05 PM EDT [facility] Partial Thromboplastin Time (PTT) 28 25 - 36 seconds 07/19/2025 10:10 PM EDT [facility] Blood Blood specimen / Unknown 07/19/2025 9:04 PM EDT 07/19/2025 9:45 PM EDT us Darian Pollard MD LAB BLOOD ORDERABLES Final Resul t Performing Organization Address City/[facility]/[place] [address], [address] [address] * Protime-INR (AM) (07/19/2025 9:04 PM EDT) Anticoagulant OTHER AGENT OR UNKNOWN 07/19/2025 9:05 PM EDT [facility] Prothrombin Time (PT) 13.4 10.0 - 13.5 seconds 07/19/2025 10:10 PM EDT [facility] INR 1.2 07/19/2025 10:10 PM EDT [facility] Comment:INR Therapeutic Rang es: Standard dose anticoagulant 2.0 to 3.0, High dose anticoagulant 2.5-3.5. Blood Blood specimen / Unknown 07/19/2025 9:04 PM EDT 07/19/2025 9:45 PM EDT us Darian Pollard MD LAB BLOOD ORDERABLES Final Resul t Performing Organization Address City/[facility]/[place] [address], [address] [address] * (ABNORMAL) FIBRINOGEN LEVEL (07/19/2025 9:04 PM EDT) Fibrinogen 526(H) 148 - 435 mg/dL 07/19/2025 10:10 PM EDT [facility] Blood Blood specimen / Unknown 07/19/2025 9:04 PM EDT 07/19/2025 9:45 PM EDT us Darian Pollard MD LAB BLOOD ORDERABLES Final Resul t Performing Organization Address [facility] [place] [address], [address] [address] * Triglycerides (07/19/2025 9:04 PM EDT) Triglycerides 149 <150 mg/dL 07/19/2025 10:28 PM EDT [facility] 07/19/2025 9:04 PM EDT 07/19/2025 9:45 PM EDT us Darian Pollard MD LAB BLOOD ORDERABLES Final Resul t Performing Organization Address City/[facility] [place] [address], [address] [address] * LACTATE DEHYDROGENASE (LDH) (07/19/2025 9:04 PM EDT) Lactate Dehydrogenase (LDH) 203 120 - 260 U/L 07/19/2025 10:28 PM EDT [facility] 07/19/2025 9:04 PM EDT 07/19/2025 9:45 PM EDT us Darian Pollard MD LAB BLOOD ORDERABLES Final Resul t Performing Organization Address [facility] [place] [address], [address] [address] * HAPTOGLOBIN (07/19/2025 9:04 PM EDT) Haptoglobin 179 30 - 200 mg/dL 07/19/2025 10:28 PM EDT [facility] Blood Blood specimen / Unknown 07/19/2025 9:04 PM EDT 07/19/2025 9:45 PM EDT us Darian Pollard MD LAB BLOOD ORDERABLES Final Resul t Performing Organization Address City/[facility] [place] [address], [address] [address] * (ABNORMAL) HEPATIC FUNCTION PANEL (07/19/2025 9:04 PM EDT) Alkaline Phosphatase 59 45 - 128 U/L 07/19/2025 10:28 PM EDT [facility] Aspartate Aminotrans (AST) 21 10 - 55 U/L 07/19/2025 10:28 PM EDT [facility] Alanine Aminotrans (ALT) 44 10 - 55 U/L 07/19/2025 10:28 PM EDT [facility] Bilirubin, Total 1.0 0.2 - 1.0 mg/dL 07/19/2025 10:28 PM EDT [facility] Protein, Total 4.4(L) 6.3 - 8.3 g/dL 07/19/2025 10:28 PM EDT [facility] Albumin 2.2(L) 3.4 - 4.8 g/dL 07/19/2025 10:28 PM EDT [facility] Bilirubin, Direct 0.5(H) 0 - 0.2 mg/dL 07/19/2025 10:28 PM EDT [facility] Globulin 2.2 1.5 - 3.9 g/dL 07/19/2025 10:28 PM EDT [facility] Albumin/Globulin Ratio 1.0 1.0 - 3.0 Ratio 07/19/2025 10:28 PM EDT [facility] 07/19/2025 9:04 PM EDT 07/19/2025 9:45 PM EDT Darian Pollard MD LAB BLOOD ORDERABLES Final Resul t Performing Organization Address [facility] [place] [address], [place] [address] * Lactic Acid, Plasma (07/19/2025 8:51 PM EDT) Lactic Acid 0.9 0.5 - 1.9 mmol/L 07/19/2025 10:24 PM EDT [facility] Blood Blood specimen / Unknown 07/19/2025 8:51 PM EDT 07/19/2025 9:42 PM EDT Ashish Domingo MD LAB BLOOD ORDERABLES Final Res ult Performing Organization Address [facility] [place] [address], [place] [address] * CR Abdomen Archive for Reference only (07/19/2025 3:45 PM EDT) Only the most recent of2 resultswithin the time period is included. Hubert AVILA - 07/19/2025 3:45 PM EDT This study has been auto finalized and does not contain a result. us File Room Provider IMG DIGITIZE FILMS Final Resu lt Performing Organization Address [facility] Co de Phone Number [place] [phone] * CR Chest Archive for Reference only (07/19/2025 3:45 PM EDT) Narrative [place] - 07/19/2025 3:45 PM EDT This study has been auto finalized and does not contain a result. us File Room Provider IMG DIGITIZE FILMS Final Resu lt Performing Organization Address [facility] de Phone Number [place] [phone] * CT Abdomen Archive for Reference Only (07/19/2025 3:45 PM EDT) Only the most recent of3 resultswithin the time period is included. Narrative [place] - 07/19/2025 3:45 PM EDT This study has been auto finalized and does not contain a result. us File Room Provider IMG DIGITIZE FILMS Final Resu lt Performing Organization Address [facility] de Phone Number [place] [phone] * CT Chest Archive for Reference Only (07/19/2025 3:44 PM EDT) Only the most recent of2 resultswithin the time period is included. Narrative [place] - 07/19/2025 3:44 PM EDT This study has been auto finalized and does not contain a result. 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 [facility] Care Collections Professional
== END 2025-09-16 15:36 | disposition home or self-care (01) ==
LOC: HO.HUSH 13:53
PROVIDERS: Visit Provider Urology
DX: Z97.8 Presence of other specified devices (principal); N31.9 Neuromuscular dysfunction of bladder, unspecified
CPT/HCPCS: 99213; G2211

== ENCOUNTER → 2025-09-16 13:53 | Outpatient (BNVA) | payer MEDICARE, OTHER, SELFPAY | PROVIDERS: Visit Provider Urology | DX: N31.9 Neuromuscular dysfunction of bladder, unspecified (principal); Z97.8 Presence of other specified devices | CPT/HCPCS: 99212 ==

== ENCOUNTER 2025-10-11 13:36 | Emergency (ER) | payer OTHER, SELFPAY ==
--- NOTE | 2025-10-11 | ECG_ITS ---
Test Reason : SYNCOPE Blood Pressure : */* mmHG Vent. Rate : 66 BPM Atrial Rate : 66 BPM P-R Int : 142 ms QRS Dur : 102 ms QT Int : 438 ms P-R-T Axes : 42 41 47 degrees QTcB Int : 459 ms Normal sinus rhythm Normal ECG When compared with ECG of 14-Jul-2025 15:37, Premature ventricular complexes are no longer Present Vent. rate has decreased by [address] no longer depressed in Anterior leads T wave inversion no longer evident in Inferior leads T wave inversion no longer evident in Lateral leads QT has shortened Referred By: Divya Ojeda Electronically Signed By: QUINTIN FAULKNER MD
[2025-10-11 13:48] VITALS: BP 112/74; PULSE 72; O2SAT 100
[2025-10-11 14:33] VITALS: BP 116/52; PULSE 64; RESP 16; TEMP 36.4; O2SAT 100; BMI 20.3
--- NOTE | 2025-10-11 14:44 | ED.GENADULT ---
HPI - General Adult General Stated complaint: LOW BP 70/57,114/76 @ SNF PER EMS Time Seen by Provider: 10/11/25 14:44 History of Present Illness ED Provider: Dr. Ojeda HPI narrative: 80 y/o M patient; PMH hx GI Bleed, multiple sclerosis, neurogenic bladder with chronic indwelling carty; presents from a [employer] day green party with report of decreased responsiveness. The patient states he initially felt foggy, stopped responding, and was noticed to hypotensive. By EMS arrival his condition had improved. He was responding appropriately and his BP was within normal limits. At the time of my assessment the patient denies any complaints. No falls/trauma/injuries. Related Data Home Medications ?Medication ?Instructions ?Recorded ?Confirmed ceramides 1,3,6-II (CeraVe topical 1 appl topical BID Dry Skin 11/16/23 08/09/25 cream) bacitracin 500 unit/gram topical 1 appl topical BID 07/11/25 08/09/25 ointment acetaminophen 325 mg tablet 650 mg PO BEDTIME 08/09/25 08/09/25 acetaminophen 325 mg tablet 650 mg PO Q4H PRN mild pain/temp 08/09/25 08/09/25 100F amlodipine 10 mg tablet 10 mg PO DAILY 08/09/25 08/09/25 ascorbic acid (vitamin C) 500 mg 500 mg PO DAILY 08/09/25 08/09/25 tablet aspirin 81 mg tablet,delayed 81 mg PO DAILY 08/09/25 08/09/25 release benzocaine 6 mg-menthol 10 mg 1 ray mucous membrane QID PRN Sore 08/09/25 08/09/25 lozenges (Chloraseptic Sore Throat) Throat bisacodyl 10 mg rectal suppository 10 mg SD DAILY PRN Constipation 08/09/25 08/09/25 bisacodyl 5 mg tablet 5 mg PO DAILY PRN Constipation 08/09/25 08/09/25 bismuth subsalicylate 262 mg/15 mL 524 mg PO Q8H PRN UPSET 08/09/25 08/09/25 oral suspension (Pepto-Bismol) STOMACH/NAUSEA carboxymethylcellulose sodium 0.5 1 drp ophthalmic (eye) QID 08/09/25 08/09/25 % eye drops (Refresh Tears) carvedilol 12.5 mg tablet 12.5 mg PO BID 08/09/25 08/09/25 cholecalciferol (vitamin D3) 25 25 mcg PO DAILY 08/09/25 08/09/25 mcg (1,000 unit) tablet docusate sodium 100 mg capsule 200 mg PO BID 08/09/25 08/09/25 famotidine 20 mg tablet 20 mg PO DAILY 08/09/25 08/09/25 ferrous sulfate 325 mg (65 mg 325 mg PO DAILY 08/09/25 08/09/25 iron) tablet folic acid 1 mg tablet 1 mg PO DAILY 08/09/25 08/09/25 gabapentin 300 mg capsule 300 mg PO TID 08/09/25 08/09/25 guaifenesin 100 mg/5 mL oral liquid 200 mg PO Q4H PRN Cough 08/09/25 08/09/25 guaifenesin 600 mg tablet, 600 mg PO Q12H PRN Cold Symptoms 08/09/25 08/09/25 extended release 12 hr (Mucinex) insulin glargine-yfgn 100 unit/mL 3 unit subcut BEDTIME 08/09/25 08/09/25 subcutaneous solution insulin lispro 100 unit/mL 1 sliding scale dose subcut BID 08/09/25 08/09/25 subcutaneous pen (Admelog SoloStar U-100 Insulin lispro) lactulose 10 gram/15 mL oral 20 g PO DAILY 08/09/25 08/09/25 solution lanolin alcohols-mineral 1 appl topical BID 08/09/25 08/09/25 oil-w.petrolatum-ceresin topical cream magnesium hydroxide 400 mg/5 mL 30 ml PO BEDTIME PRN Constipation 08/09/25 08/09/25 oral suspension (Milk of Magnesia) methotrexate sodium 2.5 mg tablet 15 mg PO MO@0900 08/09/25 08/09/25 multivitamin 1 tab PO DAILY 08/09/25 08/09/25 naloxone 0.4 mg/mL injection 0.4 mg IM Q2M PRN OPIOD OVERDOSE 08/09/25 08/09/25 solution ondansetron 4 mg disintegrating 4 mg PO Q4H PRN NAUSEA/VOMITING 08/09/25 08/09/25 tablet polyethylene glycol 3350 17 17 g PO DAILY 08/09/25 08/09/25 gram/dose oral powder (Miralax) prednisone 2.5 mg tablet 2.5 mg PO DAILY 08/09/25 08/09/25 ramelteon 8 mg tablet (Rozerem) 8 mg PO BEDTIME PRN Insomnia 08/09/25 08/09/25 rosuvastatin 10 mg tablet 10 mg PO BEDTIME 08/09/25 08/09/25 sennosides 8.6 mg-docusate sodium 2 tab-cap PO BEDTIME 08/09/25 08/09/25 50 mg tablet simethicone 80 mg chewable tablet 80 mg PO Q6H PRN GAS 08/09/25 08/09/25 sodium phosphates 19 gram-7 118 ml SD DAILY PRN Constipation 08/09/25 08/09/25 gram/118 mL enema (Fleet Enema) tramadol 50 mg tablet 50 mg PO BEDTIME PRN Pain (Scale 08/09/25 08/09/25 Score 4-6) trazodone 50 mg tablet 50 mg PO BEDTIME PRN Insomnia 08/09/25 08/09/25 vancomycin 500 mg/100 mL in 0.9% 500 mg IV DAILY 08/09/25 08/09/25 sodium chloride intravenous piggyback white petrolatum 57 % topical 1 ea topical DAILY 08/09/25 08/09/25 paste (Remedy Phytoplex Z-Guard) Allergies Allergy/AdvReac Type Severity Reaction Status Date / Time Benzodiazepines Allergy Unknown UNKNOWN Verified 10/11/25 14:38 (BENZODIAZEPINES) dalfampridine (From AMPYRA) Allergy Unknown UNKNOWN Verified 10/11/25 14:38 duloxetine (From CYMBALTA) Allergy Unknown UNKNOWN Verified 10/11/25 14:38 ezetimibe (From ZETIA) Allergy Unknown UNKNOWN Verified 10/11/25 14:38 niacin (NIACIN) Allergy Unknown UNKNOWN Verified 10/11/25 14:38 pravastatin (PRAVASTATIN) Allergy Unknown UNKNOWN Verified 10/11/25 14:38 Jbgkjev-IAZ-SgX Reductase Allergy Unknown UNKNOWN Verified 10/11/25 14:38 Inhibitor (MYBLNST-AJL-PLK REDUCTASE INHIBITOR) lorazepam (From ATIVAN) AdvReac Severe EXCESSIVE Verified 10/11/25 14:38 SEDATION doxycycline (DOXYCYCLINE) AdvReac Mild esophogeal Verified 10/11/25 14:38 iritation methylprednisolone (From AdvReac Mild heartburn Verified 10/11/25 14:38 SOLU-MEDROL) ertapenem (From INVANZ) AdvReac Unknown possible Verified 09/16/25 14:26 cause of bullous pemphigoid Review of Systems Review of Systems: Yes all other systems are reviewed and are negative Neurologic: Denies Abnormal speech present and Denies Sensory deficit (Neuro) [facility] Past Medical History Attestation statement: The following information was validated with the patient. Source: old records reviewed Medical History Obstructive uropathy MRSA bacteremia Proctitis UTI (urinary tract infection) due to urinary indwelling Carty catheter Hematuria Steroid dependence EDWARD (acute kidney injury) Bullous pemphigoid Decubitus ulcer of coccygeal region, stage 2 Acute hypotension Sepsis Aspiration pneumonitis Recurrent UTI (urinary tract infection) Hypotonic neurogenic bladder Lytic lesion of bone on x-ray Wound of foot Anemia Septic shock Shoulder pain Constipation Hematuria Multiple sclerosis Depression Diabetes mellitus type 2 in obese Chronic pain syndrome BPH (benign prostatic hyperplasia) Dehydration Chronic renal failure Urinary tract infection Surgical History Hx of removal of cyst Family History Family History Family/Other Heart attack Father Diabetes Social History Social History Household Members: Other Household Members Other:: lives at [facility] in [place] Housing: [facility] Housing Other:: [facility] Do you presently have visiting nurse or other home services: No Alcohol intake: current Alcohol intake frequency: does not drink Alcohol type: hard liquor Comment: BEDFAST Patient Tobacco Use Status: Former Tobacco user Cigarette Packs Per Day: 1 Advance Directives Date on File: 10/13/20 service: No Current occupational status: retired Physical Exam ED Vital Signs: Vital Signs - 24 hr 10/11/25 14:33 Temperature 97.5 F Pulse Rate 64 Respiratory Rate 16 Blood Pressure 116/52 L Pulse Oximetry 100 Oxygen Delivery Method Room Air BMI result Body Mass Index 20.3 Patient is afebrile and hemodynamically stable. Const General: cooperative and no acute distress Orientation/consciousness: patient oriented x3 [facility] Head: Yes normal to inspection and Yes atraumatic Eyes General: appearance normal, both eyes and all related structures Pupils: Equal, round and reactive pupils present EOM: EOMs intact bilaterally Neck Neck: Yes normal visual inspection, Yes full ROM, Yes supple and No tender Chest Chest palpation & inspection: normal inspection of the chest and normal palpation of entire chest wall Resp Effort & Inspection: normal respiratory effort, able to speak in complete sentences and no cough Auscultation: clear to auscultation bilaterally Cardio Rate: regular rate Rhythm: regular rhythm Peripheral pulses: Peripheral pulses 2+ throughout GI Inspection: Yes normal to inspection, No Abdominal wall edema and No distended Palpation (GI): Soft to palpation, not firm, nontender, no guarding and not rigid Auscultation: normal bowel sounds Back/Spine/Pelvis Back: No back tenderness Neuro General: patient oriented x3 Cranial nerves: Yes Equal, round and reactive pupils present Speech: No Abnormal speech present Gait exam (Neuro): Normal gait present Motor exam (neuro): 5/5 motor strength present throughout Sensory Exam: No Sensory deficit (Neuro) Course Course Course Narrative: Patient is afebrile and hemodynamically stable. No further episodes of hypotension. Will obtain screening EKG and lab work. Labs reviewed. No significant leukocytosis. Mild anemia Hgb 9.4. Baseline thrombocytopenia. Cr 1.2, baseline. Will plan to change catheter and check urine. Reevaluation(s) Reevaluation #1: Lia: This patient was signed out to me at change of shift by the previous emergency physician. The patient is a 80-year-old male who lives at a [facility]. He has a history of multiple sclerosis. He is nonambulatory and has a neurogenic bladder requiring a chronic indwelling urinary catheter. The patient was at a [employer] day event today and had an episode of near-syncope associated with transient hypotension. The patient did not have any other concerning symptoms and he has not had any recurrent episodes of near-syncope or hypotension here in the emergency room. His workup is largely unremarkable. The patient requested that his urine be checked. He was given a new catheter and a urinalysis was sent from the new catheter. The urinalysis today is significantly abnormal but the patient does not have any symptoms of a systemic infection. I would therefore be inclined to attribute his abnormal urinalysis simply to his chronic indwelling catheter. I do not find evidence of a definite acute infection today. Therefore the patient will be returned to his [facility] without antibiotics. He should return if any fever or other symptoms of an infection develop. Otherwise he should follow up with his regular providers. Time: 18:57 Reevaluation #2: Urine culture grew >100k Klebsiella pneumoniae and Proteus penneri. Patient does have a chronic indwelling Carty catheter, colonized with ESBL. I did reach out to patient's nurse, March at [facility] - discussed urine culture results in the need for treatment. I did fax over report to [facility] at [phone]. Medical Decision Making Lab Data 10/11/25 14:45 10/11/25 14:45 Labs: Lab Results 10/11/25 10/11/25 10/11/25 Range/Units 14:45 14:48 17:16 WBC 7.7 (4.8-10.8) X10*3/uL RBC 2.92 L (4.60-5.80) X10*6/uL Hgb 9.4 L (14.0-18.0) g/dl Hct 28.9 L (42.0-52.0) % MCV 99.0 H (80.0-98.0) fL MCH 32.2 (27.0-33.0) pg MCHC 32.5 (31.0-36.0) g/dl RDW 18.6 H (11.0-16.0) % Plt Count 151 L (160-400) X10*3/uL MPV 10.1 (9.4-12.4) fL Immature Gran % (Auto) 0.5 H (0.0-0.4) % Neut % (Auto) 73.9 H (45-73) % Lymph % (Auto) 12.4 L (20-40) % Whitfield % (Auto) 8.6 (2-11) % Eos % (Auto) 4.2 H (0-4) % Baso % (Auto) 0.4 (0-2) % Lymph # (Auto) 1.0 L (1.2-4.9) X10*3/uL Whitfield # (Auto) 0.7 (0.1-1.2) X10*3/uL Eos # (Auto) 0.3 (0.0-0.4) X10*3/uL Baso # (Auto) 0.0 (0.0-0.2) X10*3/uL Abs Immat Gran (auto) 0.04 H (0.00-0.03) X10*3/uL Absolute Neuts (auto) 5.7 (2.0-8.3) x10*3/uL Absolute Nucleated RBC 0.000 (0.0-0.012) X10*3/uL Nucleated RBC % (auto) 0.0 (0.0-0.2) /100WBC PT 11.0 L (11.2-13.5) SEC INR 0.9 (0.9-1.1) Sodium 135 (135-145) mmol/L Potassium 4.3 (3.3-5.1) mmol/L Chloride 103 (96-108) mmol/L Carbon Dioxide 25 (22-29) mmol/L Anion Gap 11 L (12-20) BUN 18 H (9-16) mg/dL Creatinine 1.20 (0.5-1.4) mg/dL Estim Creat Clear Calc 50.1 Estimated GFR 59 Random Glucose 132 H (60-115) mg/dL Lactic Acid Cancelled Calcium 8.4 D (8.4-10.2) mg/dL Total Bilirubin 0.5 (0.0-1.0) mg/dL AST 21 (5-37) U/L ALT 13 (0-40) U/L Alkaline Phosphatase 66 (39-117) U/L Troponin I High Sens Cancelled Total Protein 6.3 L (6.5-8.0) g/dL Albumin 3.4 L (3.5-5.0) g/dL Urine Color Cancelled Yellow Urine Appearance Cancelled Clear Urine pH Cancelled 6.5 Ur Specific Mildred Cancelled 1.025 Urine Protein Cancelled 300 (3+) H Urine Glucose (UA) Cancelled Negative Urine Ketones Cancelled Negative Urine Blood Cancelled Large (3+) H Urine Nitrite Cancelled Positive H Ur Leukocyte Esterase Cancelled Moderate (2+) H Urine RBC >20 H (0-2) /HPF Urine WBC >50 H (0-5) /HPF Ur Squamous Epith Cells 0-2 (0-2) /HPF Urine Bacteria 4+ (None Seen) Hyaline Casts 11-20 (0-2) /LPF Ethyl Alcohol < 10 mg/dL Independent Interpretation I performed an independent interpretation of an: EKG Interpretation: EKG independently interpreted by myself as NSR 66BPM with normal intervals. Discharge Plan Discharge Clinical Impression: Transient hypotension Patient Disposition: Home, Self-Care Instructions: Hypotension (DC) Additional Instructions: You were seen today for an episode of low blood pressure. Your lab work was reassuring. We changed you carty catheter and checked your urine. The urinalysis done today is abnormal but that is very calm and with the anyone with a chronic indwelling urinary catheter. Since you do not have any symptoms of an infection we will not start an antibiotic at this time. Please plan on following up with your regular medical providers. Return to the emergency room if significantly worse. Prescriptions: No Action ceramides 1,3,6-II [CeraVe] Cream 1 appl TOPICAL BID bacitracin 500 unit/gram Ointment 1 appl TOPICAL BID Protocol: Apply to: Apply to: BILATERAL FEET acetaminophen 325 mg Tablet 650 mg PO Q4H PRN (Reason: mild pain/temp 100F) insulin lispro [Admelog SoloStar U-100 Insulin] 100 unit/mL Insulin Pen 1 sliding scale dose SUBCUT BID Rx Instructions: BS 200 - 249 = 2 units BS 250-299 = 4 units BS 300-349 = 6 units BS 350 - 399 = 8 units call MD if glucose > 400 amlodipine 10 mg Tablet 10 mg PO DAILY Protocol: Hold for SBP< HOLD for SBP < : 90 ascorbic acid (vitamin C) 500 mg Tablet 500 mg PO DAILY aspirin 81 mg Tablet,Delayed Release (Dr/Ec) 81 mg PO DAILY bisacodyl 5 mg Tablet 5 mg PO DAILY PRN (Reason: Constipation) bisacodyl 10 mg Suppository 10 mg SD DAILY PRN (Reason: Constipation) carvedilol 12.5 mg Tablet 12.5 mg PO BID Rx Instructions: must administer with a meal/food Chloraseptic Sore Throat 6-10 mg Lozenge 1 ray MUCOUS MEMBRANE QID PRN (Reason: Sore Throat) cholecalciferol (vitamin D3) 25 mcg (1,000 unit) Tablet 25 mcg PO DAILY docusate sodium 100 mg Capsule 200 mg PO BID guaifenesin 100 mg/5 mL Liquid 200 mg PO Q4H PRN (Reason: Cough) lactulose 10 gram/15 mL Solution 20 g PO DAILY famotidine 20 mg Tablet 20 mg PO DAILY ferrous sulfate 325 mg (65 mg iron) Tablet 325 mg PO DAILY Fleet Enema 19-7 gram/118 mL Enema 118 ml SD DAILY PRN (Reason: Constipation) Rx Instructions: IF NO RESULT FROM DULCOLAX WITHIN 2 HOURS folic acid 1 mg Tablet 1 mg PO DAILY gabapentin 300 mg Capsule 300 mg PO TID lanolin ollhavj-fg-s.pet-ceres Cream 1 appl TOPICAL BID insulin glargine-yfgn 100 unit/mL Solution 3 unit SUBCUT BEDTIME methotrexate sodium 2.5 mg Tablet 15 mg PO MO@0900 magnesium hydroxide [Milk of Magnesia] 400 mg/5 mL Suspension 30 ml PO BEDTIME PRN (Reason: Constipation) polyethylene glycol 3350 [Miralax] 17 gram/dose Powder 17 g PO DAILY guaifenesin [Mucinex] 600 mg Tablet Extended Release 12hr 600 mg PO Q12H PRN (Reason: Cold Symptoms) multivitamin Tablet 1 tab PO DAILY naloxone 0.4 mg/mL Solution 0.4 mg IM Q2M PRN (Reason: OPIOD OVERDOSE) Rx Instructions: NTExceed 10 mg total dose/episode ondansetron 4 mg Tablet,Disintegrating 4 mg PO Q4H PRN (Reason: NAUSEA/VOMITING) bismuth subsalicylate [Pepto-Bismol] 262 mg/15 mL Suspension 524 mg PO Q8H PRN (Reason: UPSET STOMACH/NAUSEA) Rx Instructions: do not exceed 8 doses in a 24 hour period Remedy Phytoplex Z-Guard 57 % Paste 1 ea TOPICAL DAILY Protocol: Apply to: Apply to: SACRUM prednisone 2.5 mg Tablet 2.5 mg PO DAILY carboxymethylcellulose sodium [Refresh Tears] 0.5 % Drops 1 drp OPHTHALMIC (EYE) QID rosuvastatin 10 mg Tablet 10 mg PO BEDTIME ramelteon [Rozerem] 8 mg Tablet 8 mg PO BEDTIME PRN (Reason: Insomnia) sennosides-docusate sodium 8.6-50 mg Tablet 2 tab-cap PO BEDTIME simethicone 80 mg Tablet,Chewable 80 mg PO Q6H PRN (Reason: GAS) tramadol 50 mg Tablet 50 mg PO BEDTIME PRN (Reason: Pain (Scale Score 4-6)) trazodone 50 mg Tablet 50 mg PO BEDTIME PRN (Reason: Insomnia) acetaminophen 325 mg Tablet 650 mg PO BEDTIME vancomycin in 0.9 % sodium chl 500 mg/100 mL Piggyback 500 mg IV DAILY Rx Instructions: ORDERED UNTIL 08/10/25 Referrals: Samantha Zamora [place] [Outside] Get Martin MD [Physician, Internal Medicine] Interventions: ED Discharge Assessment Last Done: 10/11/25 20:23 Discharge Date/Time: 10/11/25 20:24 Print Language: Icelandic
[2025-10-11 15:05] LABS: MANUAL DIFF FLAG NO
[2025-10-11 15:09] LABS: Hematocrit 28.9 % (42.0-52.0); Hemoglobin 9.4 g/dl (14.0-18.0); Imm Gran Abs Auto 0.04 X10*3/uL (0.00-0.03); Imm Gran Pct Auto 0.5 % (0.0-0.4); Lymphocytes Absolute Auto 1.0 X10*3/uL (1.2-4.9); Mean Corpuscular HGB Conc 32.5 g/dl (31.0-36.0); Mean Corpuscular Hemoglobin 32.2 pg (27.0-33.0); Mean Corpuscular Volume 99.0 fL (80.0-98.0); NRBC Abs Auto 0.000 X10*3/uL (0.0-0.012); NRBC Pct Auto 0.0 /100WBC (0.0-0.2); Platelet Count 151 X10*3/uL (160-400); Red Blood Count 2.92 X10*6/uL (4.60-5.80); White Blood Count 7.7 X10*3/uL (4.8-10.8)
[2025-10-11 15:13] LABS: INTERNATIONAL NORM RATIO 0.9 (0.9-1.1); Prothrombin Time 11.0 SEC (11.2-13.5)
[2025-10-11 15:26] LABS: Alanine Aminotransferase 13 U/L (0-40); Albumin Level 3.4 g/dL (3.5-5.0); Alkaline Phosphatase 66 U/L (39-117); Anion Gap 11 (12-20); Aspartate Amino Transferase 21 U/L (5-37); Blood Urea Nitrogen 18 mg/dL (9-16); Calcium 8.4 mg/dL (8.4-10.2); Carbon Dioxide 25 mmol/L (22-29); Chloride 103 mmol/L (96-108); Creatinine Clr Calc Pharmacy 50.1; Estimated Glomerular Filt Rate 59; Potassium 4.3 mmol/L (3.3-5.1); Sodium 135 mmol/L (135-145); Total Protein 6.3 g/dL (6.5-8.0)
--- OUTSIDE RECORDS SUMMARY | 2025-10-11 16:32 | XMS_ITS | Clinical Summary ---
Author Organization [facility] Address [address] [place] [address] Care Team Providers Care Microwave Radio Technician Name Role Phone Unavailable Primary Care Provider [...] patient should follow-up with his ID at [place] on discharge - Tolerating regular diet but continues to have poor p.o. intake, he was cleared for regular thins by SEPARATOR OPERATOR - Continue Chloraseptic for throat pain - Added for shows lidocaine for throat pain or discomfort - Continue PPI twice daily, will switch to p.o. - Continue Pepcid - Continue amlodipine and carvedilol for hypertension Assessment & Plan (07/23/2025 11:35 AM EDT): -Continue IV vancomycin for MRSA bacteremia, EOT 08/11, patient should follow-up with his ID at [facility] on discharge - Tolerating regular diet but continues to have poor p.o. intake, he was cleared for regular thins by SEPARATOR OPERATOR - Continue Chloraseptic for throat pain - [...] patient should follow-up with his ID at [facility] on discharge - Tolerating regular diet but continues to have poor p.o. intake, he was cleared for regular thins by SEPARATOR OPERATOR - Continue Chloraseptic for throat pain - Added for shows lidocaine for throat pain or discomfort - Continue PPI twice daily, will switch to p.o. - Continue Pepcid - Continue amlodipine and carvedilol for hypertension Assessment & Plan (07/23/2025 11:35 AM EDT): -Continue IV vancomycin for MRSA bacteremia, EOT 08/11, patient should follow-up with his ID at [facility] on discharge - Tolerating regular diet but continues to have poor p.o. intake, he was cleared for regular thins by SEPARATOR OPERATOR - Continue Chloraseptic for throat pain - [...] patient should follow-up with his ID at [facility] on discharge - Tolerating regular diet but continues to have poor p.o. intake, he was cleared for regular thins by SEPARATOR OPERATOR - Continue Chloraseptic for throat pain - Added for shows lidocaine for throat pain or discomfort - Continue PPI twice daily, will switch to p.o. - Continue Pepcid - Continue amlodipine and carvedilol for hypertension Assessment & Plan (07/23/2025 11:35 AM EDT): -Continue IV vancomycin for MRSA bacteremia, EOT 08/11, patient should follow-up with his ID at [facility] on discharge - Tolerating regular diet but continues to have poor p.o. intake, he was cleared for regular thins by SEPARATOR OPERATOR - Continue Chloraseptic for throat pain - [...] patient should follow-up with his ID at [facility] on discharge - Tolerating regular diet but continues to have poor p.o. intake, he was cleared for regular thins by SEPARATOR OPERATOR - Continue Chloraseptic for throat pain - Added for shows lidocaine for throat pain or discomfort - Continue PPI twice daily, will switch to p.o. - Continue Pepcid - Continue amlodipine and carvedilol for hypertension Assessment & Plan (07/23/2025 11:35 AM EDT): -Continue IV vancomycin for MRSA bacteremia, EOT 08/11, patient should follow-up with his ID at [facility] on discharge - Tolerating regular diet but continues to have poor p.o. intake, he was cleared for regular thins by SEPARATOR OPERATOR - Continue Chloraseptic for throat pain - [...] patient should follow-up with his ID at [facility] on discharge - Tolerating regular diet but continues to have poor p.o. intake, he was cleared for regular thins by SEPARATOR OPERATOR - Continue Chloraseptic for throat pain - Added for shows lidocaine for throat pain or discomfort - Continue PPI twice daily, will switch to p.o. - Continue Pepcid - Continue amlodipine and carvedilol for hypertension Assessment & Plan (07/23/2025 11:35 AM EDT): -Continue IV vancomycin for MRSA bacteremia, EOT 08/11, patient should follow-up with his ID at [facility] on discharge - Tolerating regular diet but continues to have poor p.o. intake, he was cleared for regular thins by SEPARATOR OPERATOR - Continue Chloraseptic for throat pain - [...] diet to regular thin liquids Will ask SEPARATOR OPERATOR to evaluate for any dysphagia He is complaining of heartburns and chest pain, will get an EKG Continue PPI Ordered Chloraseptic for throat pain Monitor for abdominal distention, nausea vomiting Continue IV vancomycin for MRSA bacteremia, EOT 08/11, patient should follow-up with his ID at [facility] on discharge Family was concerned that patient needed colonoscopy, I discussed with GI and there were no plans for colonoscopy inpatient Anticipate he can be discharged in the next 24 hours if he tolerates his diet Encounters Date Type Department Care Team Description 07/21/2025 Travel 07/19/2025 8:25 PM EDT - 07/26/2025 5:22 PM EDT Hospital Encounter [facility] [address] [place] [address] Pollard, Darian, MD Jose L, MD sAya Corral Selina, MD Addai-Boateng, Hassana, MD Kottarathara, Mathew J, MD Hypertension, unspecified type (Primary Dx); MRSA bacteremia; Multiple sclerosis (HCC) Discharge Disposition: [facility] Facility 07/19/2025 4:00 PM EDT Ancillary Procedure [facility] Radiology [address] [place] [address] Provider, File Room 07/19/2025 3:55 PM EDT Ancillary Procedure [facility] Radiology [address] [place] [address] Provider, File Room 07/19/2025 3:55 PM EDT Ancillary Procedure [facility] Radiology [address] [place] [address], [place] [phone] Provider, File Room 07/19/2025 3:50 PM EDT Ancillary Procedure [facility] Radiology [address] [place] [address], [place] [address] Provider, File Room 07/19/2025 3:50 PM EDT Ancillary Procedure [facility] Radiology [address] [place] [address], [place] [address] Provider, File Room 07/19/2025 3:45 PM EDT Ancillary Procedure [facility]iology [address] [place] [address], [place] [address] Provider, File Room 07/19/2025 3:45 PM EDT Ancillary Procedure [facility]iology [address] [place] [address], [place] [address] Provider, File Room 07/19/2025 3:00 PM EDT Ancillary Procedure [facility]iology [address] [place] [address], [place] [phone] Provider, File Room from Last 3 Months Social History Tobacco Use Types Packs/Day Years Used Date Smoking Tobacco: Never Assessed [facility] Utilities Answer Date Recorded In the past 12 months has [employer] electric, gas, oil, or water company threatened [...] any time in the past 12 [facility], were you homeless or living in a [place] health care facility (including now)? No 07/21/2025 Sex and Gender [...] Jack Tamez MD CV ECHO ORDERABLES Ju l Result * PICC Line Insertion (07/26/2025 12:09 [...] to verify the correct patient, procedure, equipment, credit support counselor and site/side marked as required. Preparation: Patient [...] 4.0 - 11.0 Thou/uL 07/26/2025 10:[address] [facility] Platelet Count 283 150 - 450 Thou/uL 07/26/2025 10:[address] [facility] Hemoglobin 8.3(L) 13.0 - 17.7 g/dL 07/26/2025 10:[address] [facility] Hematocrit 24.6(L) 39.0 - 54.0 % 07/26/2025 10:[address] [facility] Red Blood Cell Count 2.56(L) 4.50 - 6.20 Mil/uL 07/26/2025 10:[address] [facility] MCV 96 80 - 100 fL 07/26/2025 10:[address] [facility] MCH 32.4(H) 27.0 - 31.0 pg 07/26/2025 10:[address] [facility] MCHC 33.7 30.0 - 36.0 g/dL 07/26/2025 10:[address] [facility] RDW 15.9(H) 11.5 - 14.5 % 07/26/2025 10:[address] [facility] MPV 9.9 7.5 - 12.5 fL 07/26/2025 10:[address] [facility] Blood Blood specimen / Unknown 07/26/2025 10:11 AM EDT 07/26/2025 10:32 AM EDT us Emeka Hanson MD LAB BLOOD ORDERABLES Fi nal Result [facility] [address] [place] [address], [facility] [address] [place] [address] * (ABNORMAL) Basic Metabolic Panel (STAT) (07/26/2025 10:11 AM EDT) Only the most recent of8 resultswithin the time period is included. Glucose 114(H) 65 - 99 mg/dL 07/26/2025 11:[address] [facility] Comment:Fasting: <100 mg/dL, Non-Fasting: <200 mg/dL (ADA 2004) Blood Urea Nitrogen (BUN) 14 8 - 21 mg/dL 07/26/2025 11:[address] [facility] Creatinine 1.3 0.5 - 1.3 mg/dL 07/26/2025 11:[address] [facility] eGFR 56(L) >59 07/26/2025 11:[address] [facility] Comment:CKD-EPI (2020) in mL /min/1.73 sq meters. Sodium 136 136 - 145 mmol/L 07/26/2025 11:[address] [facility] Potassium 4.2 3.4 - 5.3 mmol/L 07/26/2025 11:[address] [facility] Chloride 105 98 - 107 mmol/L 07/26/2025 11:[address] [facility] CO2 25 22 - 33 mmol/L 07/26/2025 11:[address] [facility] Anion Gap 6(L) 7 - 17 07/26/2025 11:[address] [facility] Calcium 7.1(L) 8.7 - 10.5 mg/dL 07/26/2025 11:[address] [facility] BUN/Creatinine Ratio 11 10.0 - 25.0 Ratio 07/26/2025 11:[address] [facility] Blood Blood specimen / Unknown 07/26/2025 10:11 AM EDT 07/26/2025 10:32 AM EDT Emeka Hanson MD LAB BLOOD ORDERABLES Fi nal Result Performing Organization Address City/[facility]/ZIP Co de Phone Number [address] [address], [address] [address] * (ABNORMAL) POCT Glucose, Fingerstick (07/26/2025 8:08 AM EDT) Only the most recent of22 resultswithin the time period is included. POC Glucose 105(H) 65 - 99 mg/dL 07/27/2025 9:04 AM EDT Blood specimen / Unknown 07/26/2025 8:08 AM EDT 07/27/2025 9:04 AM EDT Darian Pollard MD POINT OF CARE TEST ORDERABLES Fi nal Result Performing Organization Address City/[facility]/ZIP Co de Phone Number HOSPITAL LAB See Below * Vancomycin Level, Random (07/25/2025 9:23 PM EDT) Only the most recent of6 resultswithin the time period is included. Vancomycin, Random 19 mg/L 07/25/2025 10:25 PM EDT [facility] Comment:No reference range e stablished for random levels. Time of Last Dose Information not given 07/25/2025 1:01 PM EDT [facility] Blood Blood specimen / Unknown 07/25/2025 9:23 PM EDT 07/25/2025 9:41 PM EDT Jack Tamez MD LAB BLOOD ORDERABLES Fi nal Result Performing Organization Address [facility]/ZIP Co de Phone Number [address] [address], [address] [address] * Phosphorus (07/25/2025 6:41 AM EDT) Only the most recent of7 resultswithin the time period is included. Phosphorus 2.7 2.7 - 4.5 mg/dL 07/25/2025 8:56 AM EDT [facility] Blood Blood specimen / Unknown 07/25/2025 6:41 AM EDT 07/25/2025 7:32 AM EDT us Jack Tamez MD LAB BLOOD ORDERABLES Fi nal Result Performing Organization Address City/[facility] Co de Phone Number [address] [address], [address] [address] * Magnesium (07/25/2025 6:41 AM EDT) Only the most recent of8 resultswithin the time period is included. Magnesium 1.6 1.6 - 2.7 mg/dL 07/25/2025 8:56 AM EDT [facility] Blood Blood specimen / Unknown 07/25/2025 6:41 AM EDT 07/25/2025 7:32 AM EDT us Jack Tamez MD LAB BLOOD ORDERABLES Fi nal Result Performing Organization Address [facility] Co de Phone Number [address] [address], [address] [address] * (ABNORMAL) ALBUMIN (07/25/2025 6:41 AM EDT) Only the most recent of2 resultswithin the time period is included. Albumin 2.1(L) 3.4 - 4.8 g/dL 07/25/2025 10:43 AM EDT [facility] 07/25/2025 6:41 AM EDT 07/25/2025 7:32 AM EDT us Jack Tamez MD LAB BLOOD ORDERABLES Fi nal Result Performing Organization Address City/[facility] [place] [address], [address] [address] * (ABNORMAL) Hemoglobin and Hematocrit (07/24/2025 12:57 PM EDT) Only the most recent of2 resultswithin the time period is included. [facility] Hematocrit 23.1(L) 39.0 - 54.0 % 07/24/2025 1:27 PM EDT [facility] Hemoglobin 7.7(L) 13.0 - 17.7 g/dL 07/24/2025 1:27 PM EDT [facility] Blood Blood specimen / Unknown 07/24/2025 12:57 PM EDT 07/24/2025 1:17 PM EDT Jack Tamez MD LAB BLOOD ORDERABLES Fi nal Result Performing Organization Address City/[facility]/[place] [address], [place] [address] * (ABNORMAL) Calcium, Total (07/24/2025 12:57 PM EDT) [facility] Calcium 7.2(L) 8.7 - 10.5 mg/dL 07/24/2025 1:42 PM EDT [facility] Blood Blood specimen / Unknown 07/24/2025 12:57 PM EDT 07/24/2025 1:17 PM EDT Jack Tamez MD LAB BLOOD ORDERABLES Fi nal Result Performing Organization Address City/[facility]/[place] [address], [place] [address] * (ABNORMAL) High Sensitivity Troponin T (Once) (07/23/2025 12:31 PM EDT) Only the most recent of5 resultswithin the time period is included. Pathologist [facility] High Sensitivity Troponin T 30(H) <23 ng/L 07/23/2025 1:16 PM EDT [facility] Delta (Change) NO CHANGE <3 07/23/2025 1:16 PM EDT [facility] Blood Blood specimen / Unknown 07/23/2025 12:31 PM EDT 07/23/2025 12:43 PM EDT us Jack Tamez MD LAB BLOOD ORDERABLES Fi nal Result [facility] [address] [place] [address], [address] [address] * ECG 12 lead (STAT) (07/22/2025 8:35 PM EDT) Only the most recent of4 resultswithin the time period is included. Ventricular rate 98 BPM EKG [facility] Atrial rate 98 BPM EKG [facility] duration 86 ms EKG [facility] Q-T interval 392 ms EKG [facility] QTC calculation (Bazett) 501 ms EKG [facility] P axis 61 degrees [facility] R axis 50 degrees EKG [facility] T axis -24 degrees [facility] 07/22/2025 8:35 PM EDT Narrative EKG [facility] - 07/22/2025 8:47 PM EDT Sinus [...] Williamson APRN ECG ORDERABLES Final Res ult [facility] * (ABNORMAL) Folate Level (07/20/2025 8:00 AM EDT) Only the most recent of2 resultswithin the time period is included. Folate, Serum 4.9(L) >7.2 ng/mL 07/20/2025 10:31 AM EDT [facility] Blood Blood specimen / Unknown 07/20/2025 8:00 AM EDT 07/20/2025 8:33 AM EDT us Darian Pollard MD LAB BLOOD ORDERABLES Final Resul t Performing Organization Address City/State/[facility] [place] [address], [place] [address] * (ABNORMAL) Hemoglobin A1c with Estimated Average Glucose (Early AM) (07/20/2025 2:37 AM EDT) Hemoglobin A1C 6.4(H) <5.7 % 07/20/2025 4:24 AM EDT [facility] Comment: A1c% Interpretation 5.7 - 6.0 Increase risk of diabetes 6.1 - 6.4 Higher risk of diabetes > or = 6.5 Consistent with diabetes Diabetes Care, 33(Supp 1):S1-S61, 2009 Estimated Average Glucose 137 mg/dL 07/20/2025 4:24 AM EDT [facility] Blood Blood specimen / Unknown 07/20/2025 2:37 AM EDT 07/20/2025 3:30 AM EDT us Darian Pollard MD LAB BLOOD ORDERABLES [place] [address], [place] [address] * (ABNORMAL) Urinalysis with Reflex to Microscopic (07/20/2025 12:15 AM EDT) Color Dark yellow 07/20/2025 2:29 AM EDT [facility] Clarity Cloudy 07/20/2025 2:[address] [facility] Specific [place] 1.020 1.005 - 1.030 07/20/2025 2:[address] [facility] pH 6.0 5.0 - 8.0 07/20/2025 2:[address] [facility] Leukocyte Esterase Trace(A) Negative 07/20/2025 2:[address] [facility] Nitrite Negative Negative 07/20/2025 2:[address] [facility] Protein 300(A) NEG^Negative mg/dL 07/20/2025 2:[address] [facility] Glucose Negative Negative mg/dL 07/20/2025 2:[address] [facility] Ketones 15(A) NEG^Negative mg/dL 07/20/2025 2:[address] [facility] Blood Large(A) Negative 07/20/2025 2:[address] [facility] Bilirubin Small(A) Negative 07/20/2025 2:[address] [facility] RBC >25(H) 0 - 4 per hpf 07/20/2025 2:[address] [facility] WBC >25(H) 0 - 4 per hpf 07/20/2025 2:[address] [facility] Epithelial Cells 2 per hpf 07/20/2025 2:[address] [facility] Casts >25(H) 0 - 4 per lpf 07/20/2025 2:[address] [facility] Comment:Casts are hyaline un less otherwise noted. Bacteria Present(A) Absent 07/20/2025 2:[address] [facility] Comment:Presence of bacteria does not necessarily indicate a UTI. Please correlate with degree of pyuria and presence of clinical symptoms for UTI. Hyaline Casts Present per lpf 07/20/2025 2:[address] [facility] Urine Urine specimen / Unknown 07/20/2025 12:15 AM EDT 07/20/2025 12:41 AM EDT us Darian Pollard MD URINE ORDERABLES Final Result [address] [address], [address] [address] * (ABNORMAL) Iron and Total Iron Binding Capacity (07/19/2025 10:13 PM EDT) Iron 21(L) 53 - 167 ug/dL 07/19/2025 11:59 PM EDT [facility] UIBC 77(L) 112 - 346 ug/dL 07/19/2025 11:59 PM EDT [facility] Total Iron Binding Capacity 98(L) 100 - 400 ug/dL 07/19/2025 11:59 PM EDT [facility] Iron Sat 21 20 - 50 % 07/19/2025 11:59 PM EDT [facility] 07/19/2025 10:1 3 PM EDT 07/19/2025 10:57 PM EDT us Darian Pollard MD LAB BLOOD ORDERABLES Final Resul t Performing Organization Address City/[facility]/ZIP Co de Phone Number [address] [address], [address] [address] * (ABNORMAL) FERRITIN (07/19/2025 10:13 PM EDT) Ferritin 710(H) 30 - 400 ug/L 07/19/2025 11:59 PM EDT [facility] 07/19/2025 10:1 3 PM EDT 07/19/2025 10:57 PM EDT us Darian Pollard MD LAB BLOOD ORDERABLES Final Resul t [address] [address], [address] [address] * (ABNORMAL) VITAMIN B12 (07/19/2025 10:13 PM EDT) Vitamin B12 1,380(H) 243 - 894 pg/mL 07/19/2025 11:59 PM EDT [facility] 07/19/2025 10:1 3 PM EDT 07/19/2025 10:57 PM EDT us Darian Pollard MD LAB BLOOD ORDERABLES Final Resul t Performing Organization Address City/[facility]/ZIP Co de Phone Number [address] [address], [address] [address] * Blood Culture #2 (07/19/2025 9:26 PM EDT) Only the most recent of2 resultswithin the time period is included. Culture Sterile after 5 days 07/25/2025 7:36 AM EDT [facility] Blood (Blood, Peripheral Venipuncture) 07/19/2025 9:26 PM EDT 07/19/2025 10:36 PM EDT Comment:Blood us Ashish Domingo MD LAB BLOOD ORDERABLES Final Res ult Performing Organization Address City/[facility]/ZIP Co de Phone Number [facility] [address] [place] [address], * Type and Screen (07/19/2025 9:20 PM EDT) ABO/Rh B POSITIVE 07/19/2025 10:46 PM EDT [facility] Antibody Screen NEGATIVE 07/19/2025 10:46 PM EDT [facility] Specimen Expiration 07/22/2025 07/19/2025 10:46 PM EDT [facility] Blood Bank Comment Second Sample needed for Blood Transfusion 07/19/2025 10:46 PM EDT [facility] Blood Blood specimen / Unknown 07/19/2025 9:20 PM EDT 07/19/2025 9:40 PM EDT us Darian Pollard MD BLOOD BANK TEST ORDERABLES Final Result Performing Organization Address [facility]/ZIP Co de Phone Number [address] [address], [address] [address] * XR Chest 1 view-Portable (07/19/2025 9:14 [...] bibasilar opacities. Interpreted by: Angelina Elder MD Alteration Tailor Apprentice I personally reviewed the images and the [...] bibasilar opacities. Interpreted by: Angelina Elder MD Alteration Tailor Apprentice I personally reviewed the images and the resident's preliminary report and AGREE with the report as it is now presented ([id number]). us Ashish Domingo MD IMG DIAGNOSTIC IMAGING ORDERAB LES Final Result * (ABNORMAL) Blood Gas with Cooximetry, Venous (07/19/2025 9:04 PM EDT) Respiratory Info VENT 60% 07/19/20 9:04 PM EDT [facility] Venous Blood PH 7.36 7.33 - 7.43 07/19/2025 9:31 PM EDT [facility] Venous pCO2 46 35 - 50 mmHG 07/19/2025 9:31 PM EDT [facility] Venous pO2 65(H) 0 - 60 mmHG 07/19/2025 9:31 PM EDT [facility] Venous Total CO2 27 23 - 29 mmol/L 07/19/2025 9:31 PM EDT [facility] Base Excess 0.1 mmol/L 07/19/2025 9:31 PM EDT [facility] Comment:Reference Range: Neg ative 2 to Positive 3 Hemogloblin, Total 9.0(L) 13.0 - 17.7 g/dL 07/19/2025 9:31 PM EDT [facility] O2 Saturation, Venous 91.2 % 9:31 PM EDT [facility] Carboxyhemoglobin 2.9(H) 0.0 - 2.0 % 07/19/2025 9:31 PM EDT [facility] Methemoglobin 0.7 0.4 - 1.5 % 07/19/2025 9:31 PM EDT [facility] Venous O2 Content 11.2 7.2 - 17.2 mL/dL 07/19/2025 9:31 PM EDT [facility] Blood Blood specimen / Unknown 07/19/2025 9:04 PM EDT 07/19/2025 9:18 PM EDT us Darian Pollard MD LAB BLOOD ORDERABLES Final Resul t [address] [address], [address] [address] * ABO Confirmation (07/19/2025 9:04 PM EDT) ABO/Rh B POSITIVE 07/19/2025 10:47 PM EDT [facility] Blood Blood specimen / Unknown 07/19/2025 9:04 PM EDT 07/19/2025 9:52 PM EDT us Darian Pollard MD BLOOD BANK TEST ORDERABLES Final Result Performing Organization Address City/[facility]/[place] [address], [place] [address] * (ABNORMAL) Reticulocyte with Index (07/19/2025 9:04 PM EDT) Pathologist [facility] Reticulocyte Count 1.0 0.7 - 2.0 % 07/19/2025 10:45 PM EDT [facility] Reticulocyte, Absolute 25.8(L) 30.0 - 100.0 Thou/uL 07/19/2025 10:45 PM EDT [facility] Reticulocyte Index 0.6(L) 1.0 - 2.0 % 07/19/2025 10:45 PM EDT [facility] Retic Hemoglobin Content 34.80 28 - 35 pg 07/19/2025 10:45 PM EDT [facility] Immature Reticulocyte Fraction 9.1 2.3 - 15.9 % 07/19/2025 10:45 PM EDT [facility] Blood Blood specimen / Unknown 07/19/2025 9:04 PM EDT 07/19/2025 9:45 PM EDT us Darian Pollard MD LAB BLOOD ORDERABLES [place] [address], [address] [address] * Red Blood Cell Morphology (07/19/2025 9:04 PM EDT) Pathologist [facility] Normochromic Present 07/19/2025 11:46 PM EDT [facility] Normocytic Present 07/19/2025 11:46 PM EDT [facility] Blood Blood specimen / Unknown 07/19/2025 9:04 PM EDT 07/19/2025 9:45 PM EDT us Darian Pollard MD LAB BLOOD ORDERABLES Final Resul t Performing Organization Address [facility] de Phone Number [address] [address], [address] [address] * (ABNORMAL) High Sensitivity D-Dimer (07/19/2025 9:04 PM EDT) [facility] High Sensitivity D-Dimer 664(H) <230 ng/mL DDU 07/19/2025 10:10 PM EDT [facility] Comment: The threshold for exclusion of [...] ORDERABLES Final Resul t Performing Organization Address [facility] Co de Phone Number [address] [address], [address] [address] * (ABNORMAL) Complete Blood Count, with Differential (07/19/2025 9:04 PM EDT) [facility] White Blood Cell Count 7.9 4.0 - 11.0 Thou/uL 07/19/2025 10:45 PM EDT [facility] Platelet Count 64(L) 150 - 450 Thou/uL 07/19/2025 10:45 PM EDT [facility] Comment:Results verified by smear review. Hemoglobin 8.7(L) 13.0 - 17.7 g/dL 07/19/2025 10:[address] [facility] Hematocrit 25.7(L) 39.0 - 54.0 % 07/19/2025 10:[address] [facility] Red Blood Cell Count 2.72(L) 4.50 - 6.20 Mil/uL 07/19/2025 10:[address] [facility] MCV 95 80 - 100 fL 07/19/2025 10:[address] [facility] MCH 32.0(H) 27.0 - 31.0 pg 07/19/2025 10:[address] [facility] MCHC 33.9 30.0 - 36.0 g/dL 07/19/2025 10:[address] [facility] RDW 15.7(H) 11.5 - 14.5 % 07/19/2025 10:[address] [facility] MPV 10.6 7.5 - 12.5 fL 07/19/2025 10:[address] [facility] Immature Platelet Fraction 3.5 1.2 - 8.6 % 07/19/2025 10:[address] [facility] Neutrophils Auto 83.0 % 07/19/20 11:[address] [facility] Lymphocytes Auto 9.0 % 07/19/20 11:[address] [facility] Monocytes Auto 4.0 % 07/19/2025 11:[address] [facility] Eosinophils Auto 2.0 % 07/19/20 11:[address] [facility] Immature Granulocytes 2.0 % 07/19/2025 11:[address] [facility] Abs Neutrophils Auto 6.55 2.00 - 7.50 Thou/uL 07/19/2025 11:[address] [facility] Abs Lymphocytes Auto 0.71(L) 1.50 - 4.50 Thou/uL 07/19/2025 11:[address] [facility] Abs Monocytes Auto 0.32 0.20 - 1.50 Thou/uL 07/19/2025 11:[address] [facility] Abs Eosinophils Auto 0.16 0.00 - 0.70 Thou/uL 07/19/2025 11:47 PM EDT [facility] Abs Immature Granulocytes 0.16(H) 0.00 - 0.10 Thou/uL 07/19/2025 11:47 PM EDT [facility] Blood specimen / Unknown 07/19/2025 9:04 PM EDT 07/19/2025 9:45 PM EDT us Darian Pollard MD LAB BLOOD ORDERABLES Final Resul t Performing Organization Address [facility] [place] [address], [place] [address] * Partial Thromboplastin Time (PTT) (07/19/2025 9:04 PM EDT) Anticoagulant NO ANTI COAGULANT MEDS 07/19/2025 9:05 PM EDT [facility] Partial Thromboplastin Time (PTT) 28 25 - 36 seconds 07/19/2025 10:10 PM EDT [facility] Blood Blood specimen / Unknown 07/19/2025 9:04 PM EDT 07/19/2025 9:45 PM EDT us Darian Pollard MD LAB BLOOD ORDERABLES Final Resul t Performing Organization Address [facility] [place] [address], [place] [address] * Protime-INR (AM) (07/19/2025 9:04 PM EDT) Anticoagulant OTHER AGENT OR UNKNOWN 07/19/2025 9:05 PM EDT [facility] Prothrombin Time (PT) 13.4 10.0 - 13.5 seconds 07/19/2025 10:10 PM EDT [facility] INR 1.2 07/19/2025 10:10 PM EDT [facility] Comment:INR Therapeutic Rang es: Standard dose anticoagulant 2.0 to 3.0, High dose anticoagulant 2.5-3.5. Blood Blood specimen / Unknown 07/19/2025 9:04 PM EDT 07/19/2025 9:45 PM EDT us Darian Pollard MD LAB BLOOD ORDERABLES Final Resul t Performing Organization Address [facility] Co de Phone Number [address] [address], [address] [address] * (ABNORMAL) FIBRINOGEN LEVEL (07/19/2025 9:04 PM EDT) Fibrinogen 526(H) 148 - 435 mg/dL 07/19/2025 10:10 PM EDT [facility] Blood Blood specimen / Unknown 07/19/2025 9:04 PM EDT 07/19/2025 9:45 PM EDT us Darian Pollard MD LAB BLOOD ORDERABLES Final Resul t Performing Organization Address [facility] Co de Phone Number [address] [address], [address] [address] * Triglycerides (07/19/2025 9:04 PM EDT) Triglycerides 149 <150 mg/dL 07/19/2025 10:28 PM EDT [facility] 07/19/2025 9:04 PM EDT 07/19/2025 9:45 PM EDT us Darian Pollard MD LAB BLOOD ORDERABLES Final Resul t Performing Organization Address [facility] Co de Phone Number [address] [address], [address] [address] * LACTATE DEHYDROGENASE (LDH) (07/19/2025 9:04 PM EDT) Lactate Dehydrogenase (LDH) 203 120 - 260 U/L 07/19/2025 10:28 PM EDT [facility] 07/19/2025 9:04 PM EDT 07/19/2025 9:45 PM EDT us Darian Pollard MD LAB BLOOD ORDERABLES Final Resul t Performing Organization Address City/[facility]/ZIP Co de Phone Number [address] [address], [address] [address] * HAPTOGLOBIN (07/19/2025 9:04 PM EDT) Haptoglobin 179 30 - 200 mg/dL 07/19/2025 10:28 PM EDT [facility] Blood Blood specimen / Unknown 07/19/2025 9:04 PM EDT 07/19/2025 9:45 PM EDT us Darian Pollard MD LAB BLOOD ORDERABLES Final Resul t Performing Organization Address [facility] Co de Phone Number [address] [address], [address] [address] * (ABNORMAL) HEPATIC FUNCTION PANEL (07/19/2025 9:04 PM EDT) Alkaline Phosphatase 59 45 - 128 U/L 07/19/2025 10:28 PM EDT [facility] Aspartate Aminotrans (AST) 21 10 - 55 U/L 07/19/2025 10:28 PM EDT [facility] Alanine Aminotrans (ALT) 44 10 - 55 U/L 07/19/2025 10:28 PM EDT [facility] Bilirubin, Total 1.0 0.2 - 1.0 mg/dL 07/19/2025 10:28 PM EDT [facility] Protein, Total 4.4(L) 6.3 - 8.3 g/dL 07/19/2025 10:28 PM EDT [facility] Albumin 2.2(L) 3.4 - 4.8 g/dL 07/19/2025 10:28 PM EDT [facility] Bilirubin, Direct 0.5(H) 0 - 0.2 mg/dL 07/19/2025 10:28 PM EDT [facility] Globulin 2.2 1.5 - 3.9 g/dL 07/19/2025 10:28 PM EDT [facility] Albumin/Globulin Ratio 1.0 1.0 - 3.0 Ratio 07/19/2025 10:28 PM EDT [facility] 07/19/2025 9:04 PM EDT 07/19/2025 9:45 PM EDT Darian Pollard MD LAB BLOOD ORDERABLES Final Resul t Performing Organization Address [facility] [place] [address], [place] [address] * Lactic Acid, Plasma (07/19/2025 8:51 PM EDT) Lactic Acid 0.9 0.5 - 1.9 mmol/L 07/19/2025 10:24 PM EDT [facility] Blood Blood specimen / Unknown 07/19/2025 8:51 PM EDT 07/19/2025 9:42 PM EDT Ashish Domingo MD LAB BLOOD ORDERABLES Final Res ult Performing Organization Address [facility] [place] [address], [place] [address] * CR Abdomen Archive for Reference only (07/19/2025 3:45 PM EDT) Only the most recent of2 resultswithin the time period is included. [facility] - 07/19/2025 3:45 PM EDT This study has been auto finalized and does not contain a result. File Room Provider IMG DIGITIZE FILMS Final Resu lt Performing Organization Address City/[facility]/ZIP Co de Phone Number [place] [phone] * CR Chest Archive for Reference only (07/19/2025 3:45 PM EDT) [facility] - 07/19/2025 3:45 PM EDT This study has been auto finalized and does not contain a result. File Room Provider IMG DIGITIZE FILMS Final Resu lt Performing Organization Address [facility] de Phone Number [place] [phone] * CT Abdomen Archive for Reference Only (07/19/2025 3:45 PM EDT) Only the most recent of3 resultswithin the time period is included. Narrative [place] - 07/19/2025 3:45 PM EDT This study has been auto finalized and does not contain a result. us File Room Provider IMG DIGITIZE FILMS Final Resu Performing Organization Address [facility] de Phone Number [place] [phone] * CT Chest Archive for Reference Only (07/19/2025 3:44 PM EDT) Only the most recent of2 resultswithin the time period is included. Narrative [place] - 07/19/2025 3:44 PM EDT This study has been auto finalized and does not contain a result. us File Room Provider IMG DIGITIZE FILMS Final Resu Performing Organization Address [facility] de Phone Number [place] [phone] from Last 3 Months Insurance [employer] MEDICARE PART A & B Advance Directives Documents on File Type Date Recorded Patient Houseperson Expl anation Advance Directive-Scan 07/20/2025 DECLARATION AND DIRE CTIVE TO PHYSICIANS//DESIGNATION OF HEALTH CARE CARE PROFESSIONAL * Full Code (Latest Code Status on File) Date Activated Date Inactivated Comments 07/19/2025 8:34 PM Healthcare Agents on File Name Relationship Healthcare Agent Relationship Communication David Cheney [facility] technical sales representatives 1. [facility] Care Houseperson
--- OUTSIDE RECORDS SUMMARY | 2025-10-11 16:32 | XMS_ITS ---
Author Organization [facility] Care Team Providers Care Oracle Architect Name Role Phone Naya Alvarez Unavailable Unavailable John Luevano Unavailable Unavailable Meghann Youngblood Unavailable Unavailabl Meghann Hyman Unavailable Unavail able [place] Irvin Unavailable Unavailable Selina Fagan Unavailable UnaVitaliy Castro Unavailable Unavailable Jeanette Nicolasta Unavailable Unavailabl e Natalie Rasmussen Unavailable Unavailable Addie Mcneil Unavailable Unavailable Corina Wright Unavailable Unavailable Melyssa Salazar Unavailable Unavailable Allergies and adverse reactions Code CodeSystem Substance Reaction Severity StartDate Concern Status Ampyra Unknown 12/14/[id number] Benzodiazepines Shock due to anaphylaxis (code- 407658248, SNOMED CT) Moderate 09/29/2019 active Cymbalta Unknown 12/14/2018 active Invanz Skin reaction - finding (code- 241022787, SNOMED CT) Moderate 10/15/2019 active 7393 RXNORM Niacin Unknown 12/14/2018 active 7804 RXNORM Oxycodone Unknown 12/14/2018 active 55222 RXNORM Pravastatin Unknown 12/14/2018 active Rocephin Nausea (code- 456173130, SNOMED CT) Mild 01/10/2022 active 26264 RXNORM Simvastatin Unknown 12/14/2018 active Solu-Medrol Unknown 12/14/2018 active 12925 RXNORM Tetracycline Unknown 12/14/2018 active Zetia Unknown 12/14/2018 active Care Team Name Role Address Phone Organization Dates Naya Alvarez [address] [address], [place], [address], [facility] (Office): : [facility] 11/06/2020 - present John Luevano [address] [address], [place], [address], [facility] (Office): : : [facility] [place] 11/06/2020 - present Meghann Youngblood [address] [facility], [place], [address], [place] (Office): : [facility] [place] 11/06/2020 - present Meghann Huber Mol [address] [place], [address], [facility] (Office): : [facility] [place] 11/06/2020 - present Argentina Irvin [address], [address], [facility] (Office): : [facility] [place] 11/06/2020 - present Selina Basilio Gracia [address] [place], [address], [facility] (Office): : : [facility] [place] 11/06/2020 - present Vitaliy Ham [address] [facility] [address], [place], [address], [facility] (Office): : : [facility] [place] 11/06/2020 - present Jeanette Nicolas [address] [facility] [address], [place], [address], [facility] (Office): : : [facility] [place] 11/06/2020 - present Natalie Valery [address] [place], [address], [place] (Office): : [facility] [place] 11/06/2020 - present Addie Mcneil [address] [facility] [address], [place], [address], [place] (Office): : : [facility] [place] 11/06/2020 - present Corina Wright [address] [facility] [address], [place], [address], [facility] (Office): : : [facility] [place] 11/06/2020 - present Melyssa Martin [address] [facility] [place], [address], [place] (Office): : [facility] 11/06/2020 - present Encounters Encounter Type Code Code System Description Performer Discharge Disposition Service Delivery Location Date Ambulatory Encounter CPT Code = 05550 G35.D ICD 10 MULTIPLE SCLEROSIS, UNSPECIFIED [facility] Address: [address] [place] [address], [address], [facility]. 11/06 Ambulatory Encounter CPT Code = [id number] Sepsis [facility] Address: [address] [place] [address], [address], [facility]. 11/06 Ambulatory Encounter CPT Code = [id number] Multiple sclerosis [facility] Address: [address] [place] [address], [address], [facility]. 11/06 Ambulatory Encounter CPT Code = [id number] Septic shock [facility] Address: [address] [place] [address], [address], [facility]. 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 11/06 Ambulatory Encounter CPT Code = [id number] Sepsis caused by Pseudomonas [facility] Address: [address] [place] [address], [address], [facility]. 11/06 Ambulatory Encounter CPT Code = [id number] Type 2 diabetes mellitus [facility] Address: [address] [place] [address], [address], [facility]. 11/06 Ambulatory Encounter CPT Code = [id number] Lesion of oral mucosa [facility] Address: [address] [place] [address], [address], [facility]. 11/06 Ambulatory Encounter CPT Code = [id number] Polyneuropathy due to type 2 diabetes mellitus [facility] Address: [address] [place] [address], [address] [place] [address], [facility]. 11/06 Ambulatory Encounter CPT Code = [id number] Urinary tract infectious disease [facility] Address: [address] [place] [address], [address] [place] [address], [facility]. 11/06 Ambulatory Encounter CPT Code = [id number] Acute hypoxemic respiratory failure [facility] Address: [address] [place] [address], [address] [place] [address], [facility]. 11/06 Ambulatory Encounter CPT Code = [id number] Adult hypertrophic pyloric stenosis [facility] Address: [address] [place] [address], [address] [place] [address], [facility]. 11/06 Ambulatory Encounter CPT Code = [id number] Urinary tract infectious disease [facility] Address: [address] [place] [address], [address] [place] [address], [facility]. 11/06 Ambulatory Encounter CPT Code = [id number] Acute kidney injury [facility] Address: [address] [place] [address], [address] [place] [address], [facility]. 11/06 Ambulatory Encounter CPT Code = [id number] Dementia [facility] Address: [address] [place] [address], [address], [facility]. 11/06 Ambulatory Encounter CPT Code = [id number] Urinary tract infectious disease [facility] Address: [address] [place] [address], [address], [facility]. 11/06 Ambulatory Encounter CPT Code = [id number] Neurogenic urinary bladder [facility] Address: [address] [place] [address], [address], [facility]. 11/06 Ambulatory Encounter CPT Code = [id number] Chronic kidney disease stage 3 [facility] Address: [address] [place] [address], [address], [facility]. 11/06 Ambulatory Encounter CPT Code = [id number] Acute cystitis [facility] Address: [address] [place] [address], [address], [facility]. 11/06 Ambulatory Encounter CPT Code = [id number] Methicillin resistant Staphylococcus aureus infection [facility] Address: [address] [place] [address], [address], [facility]. 11/06 Ambulatory Encounter CPT Code = [id number] Drug resistance [facility] Address: [address] [place] [address], [address], [facility]. 11/06 Ambulatory Encounter CPT Code = [id number] Non-organic psychosis [facility] Address: [address] [place] [address], [address], [facility]. 11/06 Ambulatory Encounter CPT Code = [id number] Acute kidney injury [facility] Address: [address] [place] [address], [address], [facility]. 11/06 Ambulatory Encounter CPT Code = 06429 Z16.21 ICD 10 RESISTANCE TO VANCOMYCIN [facility] Address: [address] [place] [address], [address], [facility]. 11/06 Ambulatory Encounter CPT Code = [id number] Metabolic encephalopathy [facility] Address: [address] [place] [address], [address], [facility]. 11/06 Ambulatory Encounter CPT Code = [id number] Chronic kidney disease [facility] Address: [address] [place] [address], [address], [facility]. 11/06 Ambulatory Encounter CPT Code = [id number] Pressure injury of sacral region of back stage II [facility] Address: [address] [place] [address], [address] [place] [address], [facility]. 11/06 Ambulatory Encounter CPT Code = [id number] Moderate recurrent major depression [facility] Address: [address] [place] [address], [address], [facility]. 11/06 Ambulatory Encounter CPT Code = [id number] Benign prostatic hyperplasia with outflow obstruction [facility] Address: [address] [place] [address], [address] [place] [address], [facility]. 11/06 Ambulatory Encounter CPT Code = [id number] Silent myocardial ischemia [facility] Address: [address] [place] [address], [address], [facility]. 11/06 Ambulatory Encounter CPT Code = [id number] Mood disorder due to a general medical condition [facility] Address: [address] [place] [address], [address], [facility]. 11/06 Ambulatory Encounter CPT Code = [id number] Gastroesophageal reflux disease without esophagitis [facility] Address: [address] [place] [address], [address], [facility]. 11/06 Ambulatory Encounter CPT Code = [id number] Essential hypertension [facility] Address: [address] [place] [address], [address], [facility]. 11/06 Ambulatory Encounter CPT Code = [id number] Acute vascular insufficiency of intestine [facility] Address: [address] [place] [address], [address], [facility]. 11/06 Ambulatory Encounter CPT Code = [id number] Chronic pain syndrome [facility] Address: [address] [place] [address], [address], [facility]. 11/06 Ambulatory Encounter CPT Code = [id number] Superficial mycosis [facility] Address: [address] [place] [address], [address], [facility]. 11/06 Ambulatory Encounter CPT Code = [id number] Urinary tract infectious disease [facility] Address: [address] [place] [address], [address], [facility]. 11/06 Ambulatory Encounter CPT Code = [id number] COVID-19 [facility] Address: [address] [place] [address], [address], [facility]. 11/06 Ambulatory Encounter CPT Code = [id number] Pressure injury of sacral region of back stage II [facility] Address: [address] [place] [address], [address], [facility]. 11/06 Ambulatory Encounter CPT Code = [id number] Oropharyngeal dysphagia [facility] Address: [address] [place] [address], [address], [facility]. 11/06 Ambulatory Encounter CPT Code = [id number] Hereditary spastic paraplegia [facility] Address: [address] [place] [address], [address], [facility]. 11/06 Ambulatory Encounter CPT Code = [id number] Insomnia [facility] Address: [address] [place] [address], [address], [facility]. 11/06 Ambulatory Encounter CPT Code = [id number] Intestinal obstruction co-occurrent and due to decreased peristalsis [facility] Address: [address] [place] [address], [address], [facility]. 11/06 Ambulatory Encounter CPT Code = [id number] Polyp of colon [facility] Address: [address] [place] [address], [address], [facility]. 11/06 Ambulatory Encounter CPT Code = [id number] Hypokalemia [facility] Address: [address] [place] [address], [address], [facility]. 11/06 Ambulatory Encounter CPT Code = [id number] Bullous pemphigoid [facility] Address: [address] [place] [address], [address], [facility]. 11/06 Ambulatory Encounter CPT Code = [id number] Patient encounter procedure [facility] Address: [address] [place] [address], [address], [facility]. 11/06 Ambulatory Encounter CPT Code = [id number] Toxic encephalopathy [facility] Address: [address] [place] [address], [address], [facility]. 11/06 Ambulatory Encounter CPT Code = [id number] Inflammatory dermatosis [facility] Address: [address] [place] [address], [address], [facility]. 11/06 Ambulatory Encounter CPT Code = [id number] Congenital anomaly of skin [facility] Address: [address] [place] [address], [address], [facility]. 11/06 Ambulatory Encounter CPT Code = [id number] Allergic rhinitis [facility] Address: [address] [place] [address], [address], [facility]. 11/06 Ambulatory Encounter CPT Code = [id number] Polyneuropathy [facility] Address: [address] [place] [address], [address], [facility]. 11/06 Goals Section Goals Description Status Target Date Healing Goal: Skin Tear/Bruise will heal within the next 14 days Active 12/28/2025 Coco or healthcare decision ynes gordon shall participate in decisions regarding medical care and treatment x 90 days. Active 2025 Coco will achieve acceptable level of pain contro l x 90 days. Active 12/28/2025 Coco will be able to verbalize identity. Active 12/28/2025 Coco will be free from injury r/t side rail use for duration of stay Active 12/28/2025 Coco will be free from skin i rritation or breakdown due to bowel incontinence times 90 days. Active 12/28/2025 Coco will be free of all sign s and symptoms of hypo/hyperglycemia such as: sweating, trembling, thirst, fatigue, weakness, blurred vision x 90 days. Active 12/28/2025 Coco will consume >75% of meals at most meals thr ough next review. Active 12/28/2025 Coco will have improved skin integrity through ne xt review. Active 12/28/2025 Coco will have incontinence c are need met by staff to maintain dignity and comfort and to prevent incontinence related complications Active 12/28/2025 Coco will have no falls with injury x 90 days. Ac tive 12/28/2025 Coco will have no increase in skin breakdown throughout the next review period Active 12/28/2025 Coco will have no s/sx hypo/h yperglycemia through next review. Active 12/28/2025 Coco will have no signs and s ymptoms of urinary tract infection x 90 days. Active 12/28/2025 Coco will have stable weight without significant change through next review. Active 12/28/2025 Coco will have the smallest m ost effective dose without side effects X__90_ days. Active 12/28/2025 Coco will maintain a pattern of sleep sufficient to promote health and well-being throughout review period. Active 12/28/2025 Coco will maintain adequate hydration through nex t review. Active 12/28/2025 Coco will maintain highest ca pable level of ADL ability throughout the next review period Active 12/28/2025 Coco will maintain intact ora l mucous membranes as evidence by the absence of discomfort, gum inflammation/infection, oral lesions x_90__ days. Active 12/28/2025 Coco will not develop GI complications r/t consti pation x__90_days. Active 12/28/2025 Coco will not develop signs o r symptoms of MDRO infection throughout the next review period Active 12/28/2025 Coco will not have any discom fort or chewing problems related to broken, loose or carious teeth in the next__90___days. Active 12/28/2025 Coco will not show signs of skin breakdown x 90 d ays Active 12/28/2025 Coco will plan and choose to engage in preferred activities Active 12/28/2025 Coco's Wound will remain free from signs and symptoms of infection x 90 days Active 12/28/2025 Coco's wound /skin impairment will heal as evidenced by decrease in size, absence of erythema and drainage and/or presence of granulation X 14 days (resolved) Active 12/28/2025 Omero will utilize 1/4 bed r ail(s) independently; with assistance) for turning and repositioning while in bed; transferring to/from bed. Active 12/28/2025 Iman will utilize 1/4 bed ra il with assistance for turning and repositioning while in bed; transferring to/from bed throughout the next review period Active 12/28/2025 Manage skin changes with out complication throughout the next review period Active 12/28/2025 Mr. Ardon will be supported as he continues to reside at [facility] daily through next review. Active Mr. Ardon will continue to maintain his ability to make decisions through the next review. Active 12/28/2025 Mr. Ardon will have less ne ed for ineffective expression/response to fears, frustrations and uncertainties by next review. Active 12/28/2025 Mr. Ardon will report feeli ng safe in the Center through the next review. Active 12/28/2025 Mr. Ardon' mood will remain stable through next review. Active 12/28/2025 Resident will not experience any signs/symptoms of fluid overload as evidenced by the absence of peripheral edema and dyspnea x 90 days Active 12/28/2025 maintain comfort and minimize complications from the blisters Active 12/28/2025 Functional Status Code Name Recorded Time Value Entered By Chair/lvp-rf-gbnwl transfer 10/11/2025 Dependent DNATHAN3 Eating 10/11/2025 Independent DNATHAN3 Feeding or Eating 10/11/2025 Independent DNATHAN3 Indicate the type of wheelchair or scooter used 10/11/2025 Independent DNATHAN3 Indicate the type of wheelchair or scooter used 10/11/2025 Motorized wheelchair device (physical object) DNATHAN3 Lower body dressing 10/11/2025 Partial/moderate assi stance DNATHAN3 Lying to sitting on side of bed 10/11/2025 Not assessed DNATHAN3 Oral hygiene 10/11/2025 Independent DNATHAN3 Personal hygiene 10/11/2025 Partial/moderate assista nce DNATHAN3 Putting on/taking off footwear 10/11/2025 Partial/mo derate assistance DNATHAN3 Roll left and right 10/11/2025 Partial/moderate assi stance DNATHAN3 Shower/bathe self 10/11/2025 Partial/moderate assist ance DNATHAN3 Sit to lying 10/11/2025 Not assessed DNATHAN3 Sit to stand 10/11/2025 Dependent DNATHAN3 Toilet transfer 10/11/2025 Not assessed DNATHAN3 Toileting hygiene 10/11/2025 Partial/moderate assist ance DNATHAN3 Upper body dressing 10/11/2025 Partial/moderate assi stance DNATHAN3 Walk 10 feet 10/11/2025 Not assessed DNATHAN3 Walk 150 feet 10/11/2025 Independent DNATHAN3 Walk 50 feet 10/11/2025 Independent DNATHAN3 Wheel 150 feet 10/11/2025 Not assessed DNATHAN3 Wheel 50 feet with two turns 10/11/2025 Independent DNATHAN3 Immunizations Immunization Status Vaccine Details Vaccine Code CodeSystem Date Notes Pneumovax Dose 1 completed pneumococcal polysaccharide vaccine, 23 valent 33 CVX created date: 9 administe red date: 1 [place] [facility] TB 1 Step Mantoux (PPD) completed tuberculin skin test; purified protein derivative solution, intradermal lotNumber: [id number] expiry: 09/29/2020 Given 0.1 ml Left Forearm intradermally 96 CVX created date: 9 administe red date: 9 TB 2 Step Mantoux Skin Test completed tuberculin skin test; purified protein derivative solution, intradermal lotNumber: [id number] expiry: 10/30/2027 Mfg: SONOFI Given 0.1 ml Left Forearm intradermally Step 1 of Multi-step with next step required 96 CVX created date: 5 consent date: 5 administe red date: 4 TB 2 Step Mantoux Skin Test completed tuberculin skin test; purified protein derivative solution, intradermal lotNumber: [id number] expiry: 09/29/2020 Step 1 of Multi-step with next step required 96 CVX created date: 9 administe red date: 9 Pneumovax Dose 2 completed pneumococcal polysaccharide vaccine, 23 valent lotNumber: [id number] expiry: 05/30/2023 Given 0.5 ml Left Deltoid intramuscularly 33 CVX created date: 2 consent date: 2 administe red date: 2 PCV (Prevnar) 13 completed pneumococcal conjugate vaccine, 13 valent 133 CVX created date: 9 administe red date: 8 [place] [facility] Influenza (high dose) completed Influenza, high-dose, split virus, trivalent, injectable, preservative free Given 0.7 ml Left Deltoid intramuscularly 135 CVX created date: 2 consent date: 2 administe red date: 2 Influenza (vial) completed Influenza, split virus, trivalent, injectable, contains preservative lotNumber: [id number] expiry: 05/30/2022 Mfg: Fluzone HD Given 0.7 [...] Kidney, subunit, quadrivalent, injectable, preservative free lotNumber: [id number] expiry: 05/24/2020 Mfg: Afluria Given 0.5 ml Right Deltoid intramuscularly 171 CVX created date: 9 consent date: 9 administe red date: 9 COVID-19 Vaccine Dose 1 completed SARS-COV-2 (COVID-19) vaccine, mRNA, spike protein, LNP, preservative free, 30 mcg/0.3mL dose lotNumber: [id number] expiry: 02/18/2021 Mfg: Pfizer Given 0.3 ml Left Deltoid intramuscularly 208 CVX created date: 1 consent date: 1 administe red date: 1 Educated by Ashlyn Paredes on 12/09/2020 [facility] COVID-19 Vaccine Dose 2 completed SARS-COV-2 (COVID-19) vaccine, mRNA, spike protein, LNP, preservative free, 30 mcg/0.3mL dose lotNumber: [id number] expiry: 04/30/2021 Mfg: Pfizer Given 0.3 ml Right Deltoid intramuscularly 208 CVX created date: 1 consent date: 1 administe red date: 1 Educated by Owen Velarde on 12/27/2020 Received dose 2 on 12/30/20 COVID-19 Vaccine Additional Dose/Booster completed unknown vaccine or immune globulin lotNumber: [id number] expiry: 07/17/2023 Mfg: pfizer Bivalent Given 0.3 ml Left Deltoid intramuscularly 999 CVX created date: 3 consent date: 3 administe red date: 3 COVID-19 Vaccine Additional Dose/Booster completed unknown vaccine or immune globulin lotNumber: [id number] expiry: 01/23/2023 Mfg: pfizer Bivalent booster Given 0.3 ml Right Deltoid intramuscularly 999 CVX created date: 2 consent date: 2 administe red date: 3 Consented on 09/09/2022. Positive covid prior to administering booster in August. COVID-19 Vaccine Additional Dose/Booster completed unknown vaccine or immune globulin lotNumber: [id number] expiry: 06/10/2022 Mfg: pfiser Given 0.3 ml Right Deltoid intramuscularly 999 CVX created date: 2 consent date: 2 administe red date: 2 Educated by Erin Moore on 04/04/2022 COVID-19 Vaccine Additional Dose/Booster completed unknown vaccine or immune globulin lotNumber: [id number] expiry: 10/31/2021 Mfg: Pfizer Given 0.3 ml Left Deltoid intramuscularly 999 CVX created date: 1 consent date: 1 administe red date: 1 PCV (Prevnar) 20 completed Pneumococcal conjugate vaccine 20-valent (PCV20), polysaccharide [id number] conjugate, adjuvant, preservative free lotNumber: [id number] expiry: 07/31/2024 Mfg: Tendril Given 0.5 ml Right Deltoid intramuscularly 216 CVX created date: 3 consent date: 3 administe red date: 3 Influenza Fluzone High Dose 0.7ML dose (CVX 197) completed Influenza, high-dose, split virus, quadrivalent, injectable, preservative free lotNumber: [id number] expiry: 05/30/2024 Mfg: Mariano pasteur Given 0.7 ml Left Deltoid intramuscularly 197 CVX created date: 3 consent date: 3 administe red date: 3 Comirnaty (pfizer) COVID19 [id number] completed SARS-COV-2 (COVID-19) vaccine, mRNA, spike protein, LNP, preservative free, oanh-sucrose, 30 mcg/0.3 mL dose lotNumber: [id number] expiry: 12/31/2023 Mfg: [employer]ion[employer] Given 0.3 ml Left Deltoid intramuscularly 309 CVX created date: 3 consent date: 3 administe red date: 3 Influenza FLUAD Trivalent CVX 168 completed Influenza, adjuvanted, inactivated, trivalent, injectable, preservative free lotNumber: [id number] expiry: 04/20/2025 Given Left Deltoid intramuscularly 168 CVX created date: 4 consent date: 4 administe red date: 4 Educated by Kaylyn Garcia on 09/16/2024 SpikeVax (moderna) COVID19 [id number] completed SARS-COV-2 (COVID-19) vaccine, mRNA, spike protein, LNP, preservative free, 50 mcg/0.5 mL dose lotNumber: [id number] expiry: 06/30/2025 Mfg: Moderna Given Left Deltoid intramuscularly 312 CVX created date: 4 consent date: 4 administe red date: 4 COVID-19 Nuvaxovid (CVX 313) completed SARS-COV-2 (COVID-19) vaccine, subunit, recombinant spike protein-nanoparti gregory+Matrix-M1 Adjuvant, preservative free, 5 mcg/0.5 mL dose lotNumber: [id number] expiry: 11/30/2025 Mfg: Nova Vax Given 0.5 ml Right Deltoid intramuscularly 313 CVX created date: 5 consent date: 5 administe red date: 5 Educated by on 09/05/2025 COVID-19 Nuvaxovid (CVX 313) completed SARS-COV-2 (COVID-19) vaccine, subunit, recombinant spike protein-nanoparti gregory+Matrix-M1 Adjuvant, preservative free, 5 mcg/0.5 mL dose lotNumber: [id number] expiry: 05/30/2026 Mfg: [employer] Given 0.5 ml Left Deltoid intramuscularly 313 CVX created date: consent date: administe red date: Educated by on 09/05/2025 Influenza Trivalent,PF FLUBLOK CVXcode 155 completed Influenza, recombinant, trivalent, injectable, preservative free lotNumber: [id number] expiry: 05/20/2026 Mfg: [employer] Given 0.5 ml Left Forearm intramuscularly 155 CVX created date: consent date: administe red date: Educated by on 09/27/2025 Medications Section Medication Name Status Code CodeSystem Dose Route Frequency Admin Type Sig Text Start Date End Date Indication Aspirin 81 Tablet Delayed Release 81 MG active 77637 6 RXNORM 1 mg Oral one time a day Routin e Give 1 mg by mouth one time a day for HTN 2020 - HTN Diabetic Tussin EX Syrup active 10 ml Oral as needed PRN Give 10 ml by mouth every 4 hours as neede d for cough 2020 - cough Acetaminoph en Tablet 325 MG active 68759 2 RXNORM 2 table t Oral as needed PRN Give 2 table t by mouth every 4 hours as neede d for Mild Pain More than 3 doses in 48 hours , notif y physi ethel/ advan oral pract ice provi lainey(A PP).D o not excee d 3g/da y. (sruthi ding order ) 2020 - Mild Pain Acetaminoph en Tablet 325 MG active 48598 2 RXNORM 2 table t Oral as needed PRN Give 2 table t by mouth every 4 hours as neede d for Temp 100F or above Notif y Physi ethel/ Advan oral Pract ice provi lainey. Do not excee d 3g/da y 2020 - Temp 100F or above Dulcolax Suppository 10 MG active 11809 1 RXNORM 1 suppo sitor y Rectal one time a day Routin e Inser t 1 suppo sitor y recta lly one time a day every 3 day(s ) for const ipati on resid ent reque st sched ule and time julio e 2020 - constipatio n Bisacodyl EC Tablet Delayed Release 5 MG aborted 92966 3 RXNORM 1 table t Oral as needed PRN Give 1 table t by mouth as neede d for const ipati on 10/06 constipatio n Fleet Enema Enema 7-19 GM/118ML active 42442 5 RXNORM 1 dose Rectal as needed PRN Inser t 1 dose recta lly as neede d for Const ipati on if no resul t from Dulco lax withi n 2 hours . If no resul ts from Fleet enema , call MD/sixto cartwright pract ice provi lainey (COMPA) for er order s. 2020 - Constipatio n Insta-Gluco se Gel 77.4 % active 15304 22 RXNORM 1 dose Oral as needed [...] Pt arousable conscious and able to swallow 82381 22 RXNORM 1 dose Oral as needed [...] Pt arousable conscious and able to swallow Glucagon Emergency Kit 1 MG active 13646 7 RXNORM 1 mg Intram uscula r [...] Not arousable conscious or able to swallow 41060 7 RXNORM 1 mg Intram uscula r [...] Not arousable conscious or able to swallow CeraVe External Cream active n/a n/a Topica l every day and evening shift Routin e Apply to body topic ally every day and eveni ng shift for dry skin 2022 - dry skin Pepto-Bismo l Oral Suspension active 30 ml Oral as needed PRN Give 30 ml by mouth every 8 hours as neede d for Upset stoma ch/ Nause a 2022 - Upset stomach/ Nausea Methotrexat e Tablet 2.5 MG active 95643 5 RXNORM 15 mg Oral one time a day Routin e Give 15 mg by mouth one time a day every Mon for skin monit or for adver se conse quenc es 2023 - skin TraMADol HCl Tablet 50 MG active 85137 3 RXNORM 50 mg Oral as needed PRN Give 50 mg by mouth every 23 hours as neede d for moder ate and sever e pain PRN at bedti tn for pain 2023 - moderate and severe pain Mucinex Oral Tablet Extended Release 12 Hour 600 MG active 83289 1 RXNORM 1 table t Oral as needed PRN Give 1 table t by mouth every 12 hours as neede d for cold sympt oms 2023 - cold symptoms Enulose Oral Solution 10 GM/15ML active 23337 0 RXNORM 30 ml Oral one time a day Routin e Give 30 ml by mouth one time a day for const ipati on. 2023 - constipatio n. amLODIPine Besylate Oral Tablet 10 MG active 87597 5 RXNORM 10 mg Oral one time a day Routin e Give 10 mg by mouth one time a day for HTN Hold for SBP< 90 2023 - HTN Gabapentin Capsule 300 MG active 25687 1 RXNORM 1 capsu le Oral three times a day Routin e Give 1 capsu le by mouth three times a day for Neuro pain 2023 - Neuro pain Ferrous Sulfate Tablet 325 (65 Fe) MG active 90315 5 RXNORM 1 table t Oral one time a day Routin e Give 1 table t by mouth one time a day for anemi a 2023 - anemia Admelog SoloStar Subcutaneou s Solution Pen-injecto r 100 UNIT/ML active RXNORM n/a n/a Subcut aneous two times [...] gn Subcutaneou s Solution 100 UNIT/ML active 24567 76 RXNORM 3 unit Subcut aneous at [...] - Vit D def MiraLax Powder active 50538 5 RXNORM 17 gram Oral in the morning Routin e Give 17 gram by mouth in the morni ng for const ipati on mix with 4-8 oz of fluid s 2023 - constipatio n Milk of Magnesia Suspension 400 MG/5ML active 56546 7 RXNORM 30 ml Oral as needed PRN Give 30 ml by mouth as neede d for Const ipati on give at bedti me if no BM in 3 days 2023 - Constipatio n Phytoplex Z-Guard Paste 57-17 % active 59753 54 RXNORM n/a n/a Topica l every day and evening shift Routin e Apply to masd to sacru m topic ally every day and eveni ng shift for MASD Apply as direc aleja. 2023 - MASD Rosuvastati n Calcium Tablet 10 MG active 89419 7 RXNORM 1 table t Oral at bedtime Routin e Give 1 table t by mouth at bedti me for lipid contr ol. 2023 - lipid control. TraZODone HCl Tablet 50 MG active 64021 7 RXNORM 1 table t Oral at bedtime Routin e Give 1 table t by mouth at bedti me for insom teo 2024 - insomnia Famotidine Oral Tablet 20 MG active 13154 3 RXNORM 1 table t Oral one [...] admin Colace Oral Capsule 100 MG active 36282 56 RXNORM 2 capsu le Oral two times a day Routin e Give 2 capsu le by mouth two times a day for Const ipati on give with 8 oZ liqui d 2024 - Constipatio n Tylenol Oral Tablet 325 MG active 74648 7 RXNORM 2 table t Oral at bedtime Routin e Give 2 table t by mouth at bedti me for pain give with bedti me trama dol 2024 - pain Bacitracin External Ointment 500 UNIT/GM active 08366 10 RXNORM n/a n/a Topica l every day and evening shift Routin e Apply to Bilat era feet topic ally every day and [facility] ng shift for infec tion Pleas e send large tube. 2024 - infection Carvedilol Oral Tablet 12.5 MG active 2 RXNORM 12.5 mg Oral two times a day Routin e Give 12.5 mg by mouth two times a day for HTN 2024 - HTN predniSONE Oral Tablet 2.5 MG active 6 RXNORM 1 table t Oral in [...] Folic Acid Oral Tablet 1 MG active 26724 0 RXNORM 1 table t Oral one time a day Routin e Give 1 table t by mouth one time a day for Suppl ement 2024 - Supplement Multivitami n-Minerals Oral Tablet active 1 table t Oral one time a day Routin e Give 1 table t by mouth one time a day for suppl ement 2024 - supplement Simethicone Oral Tablet 80 MG active 1 table t Oral as needed PRN Give 1 table t by mouth every 6 hours as neede d for gas 2024 - gas Hydrocerin External Cream aborted n/a n/a Topica l two times a day Routin e Apply to Dry skin topic ally two times a day for Dry skin 09/26 Dry skin Ondansetron HCl Oral Tablet 4 MG active 2 RXNORM 1 table t Oral as needed PRN Give 1 table t by mouth every 4 hours as neede d for N/V 2024 - N/V Bisacodyl Rectal Suppository 10 MG active 9 RXNORM 10 mg Rectal as needed PRN Inser t 10 mg recta lly as neede d for const ipati on if no BM after milk of mag 2024 - constipatio n Naloxone HCl Liquid 4 MG/0.1ML active 52870 59 RXNORM 1 spray Nasal as needed PRN 1 spray Alter natin g nostr ils every 2 minut es as neede d for sign of opioi d overd ose May be repea aleja every two (2)to three (3)mi nutes for unres ponsi venes s or diffi culty breat marquis, until indiv idual is breat marquis (resp irato ry rate great er than 10)In itiat e emerg ency medic al respo nse omayra col (e.g. ,call 911)a nd trans radha to the hospi reyes 2024 - sign of opioid overdose Bisacodyl EC Tablet Delayed Release 5 MG active 05199 3 RXNORM 1 table t Oral as needed PRN Give 1 table t by mouth as neede d for const ipati on 1 tab daily as neede d 2024 - constipatio n Mental Status Section Date Assessment Total Score Description 08/15/2025 BIMS 15 cognitively int act CAM 0 No delirium ind icated PHQ-9 00 08/09/2025 CAM 0 No delirium ind icated Insurance Providers Plan of Treatment Section Interventions Intervention Code Code System Display Name Proposed D ate Problems Problem # Description Date of onset Resolved Date Code CodeSystem Concern Status 1 MULTIPLE SCLEROSIS, UNSPECIFIED 08/31/20 G35.D ICD-10-CM active 2 ACUTE RESPIRATORY FAILURE WITH HYPOXIA 07/26/[address] active 3 ADULT HYPERTROPHIC PYLORIC STENOSIS 07/26/[address] active 4 UNSPECIFIED PSYCHOSIS NOT DUE TO A SUBSTANCE OR KNOWN PHYSIOLOGICAL CONDITION 09/10/[address] active 5 SEPSIS DUE TO PSEUDOMONAS 06/11/20 24 06/30/[address] completed 6 SEVERE SEPSIS WITH SEPTIC SHOCK 06/11/20 24 06/30/[address] completed 7 UNSPECIFIED LESIONS OF ORAL MUCOSA 06/11/20 24 06/30/[address] completed 8 ACUTE CYSTITIS WITHOUT HEMATURIA 03/01/20 24 03/26/[address] completed 9 ACUTE KIDNEY FAILURE, UNSPECIFIED 03/01/20 24 03/26/[address] completed 10 METABOLIC ENCEPHALOPATHY 03/01/20 24 03/26/[address] completed 11 PRESSURE ULCER OF SACRAL REGION, STAGE 2 03/01/[address] active 12 URINARY TRACT INFECTION, SITE NOT SPECIFIED 03/01/20 24 03/26/[address] completed 13 ESSENTIAL (PRIMARY) HYPERTENSION 10/02/[address] active 14 GASTRO-ESOPHAGEAL REFLUX DISEASE WITHOUT ESOPHAGITIS 10/02/[address] active 15 SUPERFICIAL MYCOSIS, UNSPECIFIED 10/02/[address] active 16 TYPE 2 DIABETES MELLITUS WITH DIABETIC POLYNEUROPATHY 10/02/[address] active 17 TYPE 2 DIABETES MELLITUS WITH OTHER CIRCULATORY COMPLICATIONS 10/02/[address] active 18 METHICILLIN RESISTANT STAPHYLOCOCCUS AUREUS INFECTION THE CAUSE OF DISEASES CLASSIFIED ELSEWHERE 06/26/[address] active 19 URINARY TRACT INFECTION, SITE NOT SPECIFIED 01/03/20 23 08/21/[address] completed 20 COVID-19 08/05/20 22 08/20/[address] completed 21 DYSPHAGIA, OROPHARYNGEAL PHASE 05/23/[address] active 22 OTHER SPECIFIED SEPSIS 05/23/20 21 10/15/[address] completed 23 PRESSURE ULCER OF SACRAL REGION, STAGE 2 05/23/20 21 06/26/[address] completed 24 URINARY TRACT INFECTION, SITE NOT SPECIFIED 05/23/2010/15/[address] completed 25 HEREDITARY SPASTIC PARAPLEGIA 11/06/[address] active 26 INSOMNIA, UNSPECIFIED 11/06/[address] active 27 HYPOKALEMIA 08/21/2006/30/[address] completed 28 ILEUS, UNSPECIFIED 08/21/20 20 08/21/[address] completed 29 POLYP OF COLON 08/21/[address] active 30 BULLOUS PEMPHIGOID 11/30/[address] active 31 ENCOUNTER FOR FITTING AND ADJUSTMENT OF URINARY DEVICE 11/24/[address] active 32 URINARY TRACT INFECTION, SITE NOT SPECIFIED 11/24/2005/14/[address] completed 33 ACUTE KIDNEY FAILURE, UNSPECIFIED 10/04/20 19 10/15/[address] completed 34 CHRONIC KIDNEY DISEASE, UNSPECIFIED 10/04/[address] active 35 EXTENDED SPECTRUM BETA LACTAMASE (ESBL) RESISTANCE 10/04/[address] active 36 SILENT MYOCARDIAL ISCHEMIA 10/04/[address] active 37 TOXIC ENCEPHALOPATHY 10/04/20 19 08/31/[address] completed 38 UNSPECIFIED DEMENTIA, UNSPECIFIED SEVERITY, WITHOUT BEHAVIORAL DISTURBANCE, PSYCHOTIC DISTURBANCE, MOOD DISTURBANCE, AND ANXIETY 10/04/[address] active 39 DERMATITIS, UNSPECIFIED 09/07/[address] active 40 METABOLIC ENCEPHALOPATHY 03/25/2009/21/[address] completed 41 SEVERE SEPSIS WITHOUT SEPTIC SHOCK 03/25/2009/21/[address] completed 42 ACUTE (REVERSIBLE) ISCHEMIA OF SMALL INTESTINE, EXTENT UNSPECIFIED 12/14/1908/21/[address] completed 43 ALLERGIC RHINITIS, UNSPECIFIED 12/14/[address] active 44 BENIGN PROSTATIC HYPERPLASIA WITH LOWER URINARY TRACT SYMPTOMS 12/14/[address] active 45 CHRONIC KIDNEY DISEASE, STAGE 3 (MODERATE) 12/14/1908/31/[address] completed 46 CHRONIC PAIN SYNDROME 12/14/[address] active 47 MAJOR DEPRESSIVE DISORDER, RECURRENT, MODERATE 12/14/[address] active 48 MOOD DISORDER DUE TO KNOWN PHYSIOLOGICAL CONDITION, UNSPECIFIED 12/14/1905/01/[address] completed 49 MULTIPLE SCLEROSIS 12/14/1908/30/[address] completed 50 NEUROMUSCULAR DYSFUNCTION OF BLADDER, UNSPECIFIED 12/14/[address] active 51 OTHER SPECIFIED CONGENITAL MALFORMATIONS OF SKIN 12/14/[address] active 52 POLYNEUROPATHY, UNSPECIFIED 12/14/[address] active 53 TYPE 2 DIABETES MELLITUS WITH UNSPECIFIED COMPLICATIONS 12/14/[address] active 54 URINARY TRACT INFECTION, SITE NOT SPECIFIED 12/14/1903/23/[address] completed Reason for Referral No Reasons for Referral Entered Social History Social History Observation Description Start Date End Date Code Code System Current Smoking Status Tobacco smoking consumption unknown 342544209 SNOMED CT Sex Assigned At Male 1945 16391-0 [facility] Gender Identity Sexual Orientation Vital Signs Code Code System Vitals Name Values and Units Timing Information 9279-1 [facility] Respiratory Rate Value=18.0 Units=/m in 10/11/2025 8462-4 [facility] Blood Pressure-Diastolic Value=57 Un its=mmHg 10/11/2025 8480-6 [facility] Blood Pressure-Systolic Value=70 Uni ts=mmHg 10/11/2025 8310-5 [facility] Body Temperature Value=97.9 Units= F 10/11/2025 8867-4 [facility] Heart rate Value=98.0 Units=/min 10/2025 2339-0 [facility] Blood Sugar Yaeer=337.0 Units=mg/dL 10/11/2025 58039-6 [facility] O2 % BldC Oximetry Value=96.0 Units= % 10/11/2025 37290-8 [facility] Pain Level Value=0.0 10/11/2025 10284-2 [facility] Weight Xfvse=561.0 Units=Lbs 07/2025 8302-2 [facility] Height Value=70.5 Units=Inches 08/01/2025
[2025-10-11 18:37] LABS: Appearance Urine Clear; Glucose Urine UA Negative (Negative); PH 6.5 (5.0-9.0); Specific Gravity - Urine 1.025 (1.005-1.025); UMIC TRIGGER UACC YES
[2025-10-11 18:47] LABS: UACC Culture Trigger YES
--- NOTE | 2025-10-11 19:22 | PC.NURSE ---
Nurse to Nurse report given to nurse at [facility] manor given to Breanna VALENZUELA.
[2025-10-11 20:23] VITALS: BP 116/52; PULSE 64; RESP 16; TEMP 36.4; O2SAT 100
== END 2025-10-11 20:24 | disposition home or self-care (01) ==
PROVIDERS: Emergency Medicine; Emergency Provider Emergency Medicine
DX: I95.89 Other hypotension (principal); R55 Syncope and collapse; N31.9 Neuromuscular dysfunction of bladder, unspecified; R82.90 Unspecified abnormal findings in urine; E11.9 Type 2 diabetes mellitus without complications; G35.D Multiple sclerosis, unspecified; Z96.0 Presence of urogenital implants; Z87.891 Personal history of nicotine dependence; Z79.899 Other long term (current) drug therapy
CPT/HCPCS: 36415; 80053; 80307; 81001; 85025; 85610; 87086; 87088; 87186; 93005; 99283; 99284

== ENCOUNTER → 2025-10-11 15:14 | Outpatient (BNV) | payer MEDICARE, OTHER, SELFPAY | PROVIDERS: Emergency Provider Emergency Medicine; Visit Provider Internal Medicine Cardiovascular Disease | DX: R55 Syncope and collapse (principal) | CPT/HCPCS: 93010 ==